=== PATIENT | male | born 1935 | race Caucasian/White ===

== ENCOUNTER 2016-11-23 02:57 | Emergency (ER) | payer OTHER ==
[~2016-11-23] VITALS: Ht 180.3 cm; Wt 100.0 kg
[~2016-11-23 02:57] MED LIST: ATOR-26 PO; BISA-16 PO; CHOL100027 PO; FURO-85 PO; GLC/500 PO; INSUINJ4 SC; LOSA50TA54 PO; METO1TAB31 PO; NITR0.4S UT; POTA-74 PO; PSYL55.43 PO; SENNTAB23 PO; WARF5TAB90 PO
[2016-11-23 03:05] VITALS: TEMP 36.3; Ht 180.3 cm; Wt 100.0 kg
[2016-11-23] MEDS ORDERED: INSDGIPEN SQ (03:33)
[2016-11-23] MEDS ORDERED: METF-384 PO (03:34)
[2016-11-23] MEDS ORDERED: MoRPHine SULFATE 4 MG/ML 1 ML CARP\\VIAL IV STA (03:38)
[2016-11-23] MEDS ORDERED: ONDANSETRON INJ 2 MG/ML 2 ML VIAL IV STA (03:38)
[2016-11-23 03:46] LABS: BASO % 0.3 %; BASO ABS # 0.04 K/uL (0-0.2); COMPLETE YES; EOS % 1.8 %; HEMATOCRIT 43.1 % (42-52); IG% 0.3 %; LYMPH % 13.7 %; LYMPH ABS # 2.02 K/uL (1.2-3.4); MEAN CELL VOLUME 94.3 fL (80-100); MEAN CORPUSCULAR HEMOGLOBIN 30.6 pg (25-34); MEAN CORPUSCULAR HGB CONC 32.5 g/dl (32-36); MEAN PLATELET VOLUME 10.1 fL (7.4-10.4); MONO % 12.5 %; NEUT % 71.4 %; PLATELET COUNT 229 K/uL (130-400); RED BLOOD COUNT 4.57 M/uL (4.7-6.1); WHITE BLOOD COUNT 14.73 K/uL (4.8-10.8)
[2016-11-23 03:54] VITALS: O2SAT 93
[2016-11-23 04:03] LABS: BUN/CREATININE RATIO 16.7 (10-20); CALCIUM 8.6 mg/dl (8.5-10.1); CREATININE 1.1 mg/dl (0.60-1.40); POTASSIUM 4.1 mmol/L (3.5-5.1); URIC ACID 5.9 mg/dl (2.6-7.2)
[2016-11-23] MEDS ORDERED: MoRPHine SULFATE 10 MG/ML CARP/VIAL IV STA (04:14)
[2016-11-23 04:19] LABS: C-REACTIVE PROTEIN 0.62 mg/dl (0-0.29)
[2016-11-23] MEDS ORDERED: CEFAZOLIN SOD 1000MG/55 ML D5W IV STA (04:30)
--- NOTE | 2016-11-23 04:36 | EMERGENCY ROOM VISIT NOTE ---
History Report prepared by Carmen: Kiesha Tran Under the Supervision of: Dr. Darell Gamino D.O. First contact with patient: 03:12 Chief Complaint: FOOT PAIN Stated Complaint: LEFT ANKLE PAIN History of Present Illness The patient is a 81 year old male who presents to the Emergency Room with complaints of constant left ankle pain starting yesterday. The pain is described as being extreme, and he rates it at a 10/10. The patient also noticed erythema on his foot last night. The patient states that he has not had pain like this in 3 years and was treated with pain medication. The patient has a history of gout in his toes, balls of feet, and ankles. No recent trauma. The patient reports that he has a pacemaker and had 4 stents put in years ago. Pt denies headache, change in vision, fevers, chest pain, shortness of breath, nausea, vomiting, and diarrhea. Source of History: patient Onset: yesterday Position: ankle (left) Symptom Intensity: extreme, rated at a 10/10 Timing: constant Associated Symptoms: No fevers, No headache, No chest pain, No SOB, No nausea, No vomiting, No melena, No diarrhea, No urinary symptoms Review of Systems See HPI for pertinent positives & negatives. A total of 10 systems reviewed and were otherwise negative. Past Medical & Surgical Medical Problems: (1) ACS (acute coronary syndrome) (2) CAD (coronary artery disease) (3) Chest pain (4) Chronic anticoagulation (5) DM type 2 (diabetes mellitus, type 2) (6) Dyslipidemia (7) Gout (8) History of cerebral hemorrhage (9) HTN (hypertension) (10) Pacemaker (11) Pancreatic cancer (12) Paroxysmal atrial fibrillation (13) Sinus node dysfunction (14) SSS (sick sinus syndrome) Surgical Problems: (1) H/O arthroscopic knee surgery (2) H/O colonoscopy (3) H/O esophagogastroduodenoscopy (4) H/O inguinal hernia repair (5) History of pancreatectomy (6) S/P CABG x 1 (7) S/P coronary artery stent placement (8) S/P splenectomy (9) S/P tonsillectomy and adenoidectomy Family History Diabetes mellitus FH: heart disease FH: hypertension Social History Smoking Status: Former Smoker Marital Status: Housing Status: lives alone Occupation Status: retired Current/Historical Medications Scheduled Atorvastatin (Lipitor), 80 MG PO DAILY Cephalexin Monohydrate (Keflex), 500 MG PO QID Cephalexin Monohydrate (Keflex), 500 MG PO QID Cholecalciferol (Vitamin D 1000 Unit), 1,000 INTER.UNIT PO DAILY Furosemide (Lasix), 20 MG PO DAILY Insulin Glargine (Lantus Solostar), 32 SC QAM Losartan Potassium (Cozaar), 50 MG PO DAILY Metformin Hcl (Glucophage), 1,000 MG PO BID Metoprolol Succinate (Toprol Xl), 25 MG PO DAILY Warfarin Sodium (Coumadin), 5 MG PO 4XWK Warfarin Sodium (Coumadin), 2.5 MG PO 3XWK Scheduled PRN Nitroglycerin (Nitrostat), 0.4 MG UT UD PRN for Chest Pain Oxycodone Immediate Rel Tab (Roxicodone Ir), 1-2 TAB PO Q4H PRN for Severe Pain Allergies Coded Allergies: Penicillins (Verified Allergy, Intermediate, HIVES, 11/23/16) Clopidogrel (Verified Allergy, Mild, 11/23/16) Physical Exam Vital Signs Date Time Temp Pulse Resp B/P (MAP) Pulse Ox O2 Delivery O2 Flow Rate FiO2 11/23/16 05:31 74 123/75 92 11/23/16 05:17 74 20 93 11/23/16 05:02 70 19 91 11/23/16 05:01 114/67 11/23/16 04:56 92 11/23/16 04:47 72 21 91 11/23/16 04:42 73 19 91 11/23/16 04:31 115/61 11/23/16 04:27 69 17 92 11/23/16 04:12 74 17 11/23/16 04:01 133/64 11/23/16 03:57 82 11/23/16 03:57 75 27 92 11/23/16 03:55 79 19 149/86 93 Room Air 11/23/16 03:55 149/86 11/23/16 03:54 93 Room Air 11/23/16 03:05 36.3 79 18 121/77 92 Room Air Physical Exam GENERAL: sitting up in bed, alert, well appearing, well nourished, no distress, non-toxic EYE EXAM: normal conjunctiva OROPHARYNX: no exudate, no erythema, lips, buccal mucosa, and tongue normal and mucous membranes are moist NECK: supple, no nuchal rigidity, no adenopathy, non-tender LUNGS: Clear to auscultation. Normal chest wall mechanics HEART: no murmurs, S1 normal and S2 normal ABDOMEN: abdomen soft, non-tender, normo-active bowel sounds, no masses, no rebound or guarding. SKIN: no rashes and no bruising UPPER EXTREMITIES: upper extremities are grossly normal. LOWER EXTREMITIES: No pitting edema. Full active and passive ROM at bilateral hips, knees, and right ankle. Tenderness with ROM of left ankle. Swelling over medial and lateral malleolus and dorsal surface with mild erythema. Able to flex and extend at the ankle but with pain. Inversion and eversion intact. Skin is intact. Able to axial load ankle with minimal pain.DP 2/4, gross sensation intact. NEURO EXAM: Normal sensorium, cranial nerves II-XII intact, normal speech, no weakness of arms. Medical Decision & Procedures ER Provider Diagnostic Interpretation: XRAY: A 3 view study was reviewed, no fracture was seen. 3 Views Left Ankle No obvious fracture. Calcification of vessels. Arthritis within the ankle joint. Laboratory Results 11/23/16 03:35 Red Blood Count 4.57, Mean Corpuscular Volume 94.3, Mean Corpuscular Hemoglobin 30.6, Mean Corpuscular Hemoglobin Concent 32.5, Mean Platelet Volume 10.1, Neutrophils (%) (Auto) 71.4, Lymphocytes (%) (Auto) 13.7, Monocytes (%) (Auto) 12.5, Eosinophils (%) (Auto) 1.8, Basophils (%) (Auto) 0.3, Neutrophils # (Auto ) 10.52, Lymphocytes # (Auto) 2.02, Monocytes # (Auto) 1.84, Eosinophils # (Auto ) 0.27, Basophils # (Auto) 0.04 11/23/16 03:35 Test 11/23/16 03:35 White Blood Count 14.73 K/uL (4.8-10.8) Red Blood Count 4.57 M/uL (4.7-6.1) Hemoglobin 14.0 g/dL (14.0-18.0) Hematocrit 43.1 % (42-52) Mean Corpuscular Volume 94.3 fL (80-100) Mean Corpuscular Hemoglobin 30.6 pg (25-34) Mean Corpuscular Hemoglobin Concent 32.5 g/dl (32-36) Platelet Count 229 K/uL (130-400) Mean Platelet Volume 10.1 fL (7.4-10.4) Neutrophils (%) (Auto) 71.4 % Lymphocytes (%) (Auto) 13.7 % Monocytes (%) (Auto) 12.5 % Eosinophils (%) (Auto) 1.8 % Basophils (%) (Auto) 0.3 % Neutrophils # (Auto) 10.52 K/uL (1.4-6.5) Lymphocytes # (Auto) 2.02 K/uL (1.2-3.4) Monocytes # (Auto) 1.84 K/uL (0.11-0.59) Eosinophils # (Auto) 0.27 K/uL (0-0.5) Basophils # (Auto) 0.04 K/uL (0-0.2) RDW Standard Deviation 48.6 fL (36.4-46.3) RDW Coefficient of Variation 14.1 % (11.5-14.5) Immature Granulocyte % (Auto) 0.3 % Immature Granulocyte # (Auto) 0.04 K/uL (0.00-0.02) Erythrocyte Sedimentation Rate 12 mm/hr (0-14) Prothrombin Time 20.6 SECONDS (9.0-12.0) Prothromb Time International Ratio 1.9 (0.9-1.1) Anion Gap 8.0 mmol/L (3-11) Est Creatinine Clear Calc Drug Dose 63.4 ml/min Estimated GFR () 72.6 Estimated GFR (Non- 62.6 BUN/Creatinine Ratio 16.7 (10-20) Uric Acid 5.9 mg/dl (2.6-7.2) Calcium Level 8.6 mg/dl (8.5-10.1) C-Reactive Protein 0.62 mg/dl (0-0.29) Laboratory results per my review. Medications Administered Medications (Trade) Dose Ordered Sig/Hammad Route Start Time Stop Time Status Last Admin Dose Admin Morphine Sulfate (MoRPHine SULFATE INJ) 4 mg NOW STAT IV 11/23/16 03:38 11/23/16 03:39 DC 11/23/16 03:42 4 MG Ondansetron HCl (Zofran Inj) 4 mg NOW STAT IV 11/23/16 03:38 11/23/16 03:39 DC 11/23/16 03:44 4 MG Morphine Sulfate (MoRPHine SULFATE INJ) 6 mg NOW STAT IV 11/23/16 04:14 11/23/16 04:15 DC 11/23/16 04:21 6 MG Cefazolin Sodium (Ancef 1000mg/55 ml D5W) 1,000 mg NOW STAT IV 11/23/16 04:30 11/23/16 04:31 DC 11/23/16 04:50 1,000 MG Cephalexin Monohydrate (Keflex Cap) 500 mg NOW ONCE PO 11/23/16 05:30 11/23/16 05:31 DC 11/23/16 05:27 500 MG Cephalexin Monohydrate (Keflex 500MG Home Pack) 1 homepack NOW ONCE PO 11/23/16 05:30 11/23/16 05:31 DC 11/23/16 05:28 1 HOMEPACK Oxycodone HCl (Roxicodone Immediate Rel 5MG Home Pack) 1 homepack UD ONCE PO 11/23/16 05:30 11/23/16 05:31 DC 11/23/16 05:28 1 HOMEPACK Prednisone (PredniSONE TAB) 10 mg STK-MED ONCE .ROUTE 11/23/16 06:09 11/23/16 06:10 DC 11/23/16 05:46 10 MG ED Course ED COURSE: Vital signs were reviewed and showed hypertension. The patients medical record was reviewed The above diagnostic studies were performed and reviewed. ED treatments and interventions as stated above. 0320: The patient was evaluated in room B3. A complete history and physical examination was performed. 0338: Ordered Ondansetron HCl 4 mg IV, Morphine Sulfate 4 mg IV. 0413: The patient is still having pain. 0414: Ordered Morphine Sulfate 6 mg IV. 0430: Ordered Cefazolin Sodium 1,000 mg IV. 0455: I reviewed the patient's case with Dr. Harrington. 0530: Ordered Oxycodone HCl 1 homepack PO, Cephalexin Monohydrate 1 homepack PO , Cephalexin Monohydrate 500 mg PO. 0545: Ordered Prednisone 10 mg PO. 0550: Upon reevaluation, the patient is feeling better. I discussed the findings and the treatment plan with the patient. He verbalizes agreement and understanding. He was discharged home. Medical Decision Differential diagnosis includes etiologies such as cellulitis, abscess, MRSA infection, DVT, necrotizing fasciitis, dermatitis, drug eruption, as well as others were entertained. Patient is an 81-year-old male who presents the ER for severe left ankle pain which started last night. He notes he has had this once before in the past and notes that it resolved with pain medications. He has erythema and swelling around the ankle. Able to load the ankle with minimal pain. Erythema improved throughout his stay. He was given 2 doses of morphine. White count was elevated at 15,000. Uric acid was negative. Sed and CRP are unremarkable. Patient was afebrile. X-rays of the ankle show no acute fracture. INR was just slightly subtherapeutic. Discussed the case with orthopedics as in my differential was septic joint versus cellulitis vs gout. Unclear at this time but doubt septic joint as patient is extremely hypersensitive to touch and I favor presentation is most consistent with gout. Able to range ankle with minimal tenderness not supporting septic joint. Following a prolonged discussion with Dr. Juany Harrington and review of the images he believes that the joint is unlikely infected and the patient can follow-up on Tuesday. He agreed with antibiotics and Motrin. Stressed the importance of having the patient follow-up with his PCP on Tuesday as he takes Coumadin and both Keflex and Motrin will increase his INR. He was agreeable with this. He was discharged with OxyIR. Patient was agreeable. Erythema was outlined. Stressed importance of reasons to return to the ER. While in the ER he was given a small amount of Ancef prior to me seeing this as the patient has an allergy to this. He is uncertain of the allergy and notes that he has not had penicillin since he was a child. Patient remained stable following small amount of intravenous Ancef. He was given a small dose of steroids and discharged to follow-up with with orthopedics and PCP. Discussed with Pt concerning signs and symptoms to watch out for. Pt was instructed to follow up with their PCP and discussed with the patient their option to return to the ED at anytime for persistent or worsening symptoms. The appropriate anticipatory guidance and out-patient management, including indications for return to the emergency department, were explained at length to the patient and understood. Blood pressure screening: Patient was found to have an elevated blood pressure and was referred to their primary doctor for recheck and further treatment. Medication Reconciliation: I attest that I have personally reviewed the patient' s current medication list. [place] Drug Monitoring Program Search Results: patient reviewed within database, no issues identified Consults Time Called: [phone] Consulting Physician: Dr. Harrington- covering for [facility] Returned Call: 045 I reviewed the patient's case with Dr. Harrington. Impression Primary Impression: Left ankle pain Additional Impression: gout vs cellulitis Scribe Attestation The scribe's documentation has been prepared under my direction and personally reviewed by me in its entirety. I confirm that the note above accurately reflects all work, treatment, procedures, and medical decision making performed by me. Departure Information Dispostion Home / Self-Care Prescriptions Cephalexin Monohydrate (Keflex) 500 Mg Cap 500 MG PO QID, #40 CAP Prov: Darell Gamino, DO 11/23/16 Cephalexin Monohydrate (Keflex) 500 Mg Cap 500 MG PO QID, #40 CAP Prov: Darell Gamino, DO 11/23/16 Oxycodone Immediate Rel Tab (ROXICODONE IR) 5 Mg Tab 1-2 TAB PO Q4H Y for Severe Pain, #24 TAB Prov: Darell Gamino, DO 11/23/16 Referrals Melo Carlos M.D. (PCP) Forms HOME CARE DOCUMENTATION FORM, IMPORTANT VISIT INFORMATION Patient Instructions Cellulitis - [facility], G[facility] [place], [facility] Additional Instructions Please follow up with your primary care doctor with in the next 24 hours. Any worsening of your symptoms, please return to the ED immediately. This includes fevers greater than 100.4, worsening pain, spreading of the redness, or any other concerning signs or symptoms from your standpoint. Please call your orthopedic doctor on Tuesday to set up appointment. Please tell them that you were seen in the ER and need a follow-up. Please follow up on Tuesday with your primary care doctor to have your INR followed as you are taking an antibiotic which will alter/increase your INR/Coumadin level. Please take Motrin 200 mg 3 times a day as needed for your pain. This will also alter your Coumadin/INR level. You were given medications during this visit that will inhibit your ability to drive, operate machinery and work. Please do NOT drive, operate machinery or work for the next 12hrs. You were also given a prescription for a narcotic/Oxy IR. While taking this medication you should also not drive, operate machinery and or work. Problem Qualifiers Primary Impression: Left ankle pain Chronicity: acute Qualified Codes: M25.572 - Pain in left ankle and joints of left foot
[2016-11-23 04:51] LABS: INR 1.9 (0.9-1.1); PROTHROMBIN TIME (PATIENT) 20.6 SECONDS (9.0-12.0)
[2016-11-23] MEDS ORDERED: OXYC1TAB3 PO ×2 (05:25→05:26)
[2016-11-23] MEDS ORDERED: CEPH500C PO ×2 (05:26→05:28)
[2016-11-23] MEDS ORDERED: CEPHALEXIN MONOHYDRATE 250 MG CAP PO ONE (05:30)
[2016-11-23] MEDS ORDERED: CEPHALEXIN 500MG HOME PACK 1 EA BTL PO ONE (05:30)
[2016-11-23] MEDS ORDERED: OXYCODONE IR HOME PACK PO ONE (05:30)
[2016-11-23 05:31] VITALS: BP 123/75; PULSE 74; O2SAT 92
--- NOTE | 2016-11-23 10:48 | DIAGNOSTIC IMAGING REPORT ---
LEFT ANKLE 3 VIEWS CLINICAL HISTORY: Left ankle pain. No reported history of trauma. FINDINGS: 3 views of the left ankle are compared to study dated 02/15/2011. The skeletal structures are osteopenic. No fracture is seen. The ankle mortise is intact. Degenerative spurring is noted from the anterior tibial plafond and along the dorsal aspect of the tarsal bones. An os trigonum is incidentally noted. Enthesophytes are also seen arising from the medial and lateral malleoli. There is no large ankle joint effusion. Soft tissue edema is present in the left lower extremity and around the ankle joint. There is advanced atherosclerotic calcification of the regional arteries. There is a small dorsal calcaneal enthesophyte. IMPRESSION: 1. Diffuse soft tissue edema with no acute bony abnormality seen in the left ankle. 2. Osteopenia and degenerative change as above. Electronically signed by: Yousif Espinoza M.D. 11/23/2016 10:47 AM Dictated Date/Time: 11/23/2016 10:45 AM
[2016-12-01] MEDS ORDERED: NRV5 PO (11:18)
[2016-12-01] MEDS ORDERED: BRL90 PO (11:18)
[2016-12-01] MEDS ORDERED: TPRSR25 PO ×2 (11:18)
[2016-12-01] MEDS ORDERED: ASPEC81 PO (11:18)
[2016-12-01] MEDS ORDERED: LPT/40 PO (11:31)
[2016-12-31] MEDS ORDERED: IMDSR60 PO (11:52)
[2016-12-31] MEDS ORDERED: TPRSR50 PO (11:52)
[2016-12-31] MEDS ORDERED: NRV5 PO (11:52)
[2016-12-31] MEDS ORDERED: PRT40 PO (11:52)
[2017-01-12] MEDS ORDERED: TICA1TAB PO (15:04)
[2017-01-12] MEDS ORDERED: PSYL58.636 (15:04)
[2017-01-12] MEDS ORDERED: METO25TA3 PO (15:04)
[2017-01-12] MEDS ORDERED: CLIN300C2 PO (15:04)
== END 2016-11-23 05:49 | disposition home or self-care (01) ==
LOC: C.EDB 02:58
DX: M25.572 Pain in left ankle and joints of left foot (principal); E11.9 Type 2 diabetes mellitus without complications; E78.5 Hyperlipidemia, unspecified; I10 Essential (primary) hypertension; I25.10 Atherosclerotic heart disease of native coronary artery without angina pectoris; Z79.01 Long term (current) use of anticoagulants; Z79.4 Long term (current) use of insulin; Z79.899 Other long term (current) drug therapy; Z85.07 Personal history of malignant neoplasm of pancreas; Z87.828 Personal history of other (healed) physical injury and trauma; Z95.0 Presence of cardiac pacemaker; Z98.61 Coronary angioplasty status; Z82.49 Family history of ischemic heart disease and other diseases of the circulatory system; Z83.3 Family history of diabetes mellitus

== ENCOUNTER 2016-11-25 16:42 | Inpatient (IN) | payer OTHER ==
[~2016-11-25] VITALS: Ht 180.3 cm; Wt 108.9 kg
[~2016-11-25 16:42] MED LIST changes: -BISA-16 PO; +CEPH500C PO; -GLC/500 PO; +INSDGIPEN SQ; -INSUINJ4 SC; +METF-384 PO; +OXYC1TAB3 PO; -POTA-74 PO; -PSYL55.43 PO; -SENNTAB23 PO
[2016-11-25] MEDS ORDERED: ASPIRIN 81 MG CHEW PO STA (16:59)
--- NOTE | 2016-11-25 17:27 | DIAGNOSTIC IMAGING REPORT ---
CHEST ONE VIEW PORTABLE CLINICAL HISTORY: Atypical chest pain COMPARISON STUDY: 04/10/2016 FINDINGS: There are postsurgical changes of a midline sternotomy. There is a left subclavian dual-chamber central venous pacemaker present. The heart is enlarged. There is no failure. There is no focal pulmonary consolidation. No pleural effusions are visualized.[ IMPRESSION: Cardiomegaly. No active disease in the chest. Electronically signed by: Bhavin Norman M.D. 11/25/2016 5:26 PM Dictated Date/Time: 11/25/2016 5:25 PM
--- NOTE | 2016-11-25 17:59 | EMERGENCY ROOM VISIT NOTE ---
History Report prepared by Carmen: Edna Rayo Under the Supervision of: Dr. Chaim Wells D.O. First contact with patient: 16:50 Chief Complaint: CARDIAC ASSESSMENT Stated Complaint: CHEST PAIN- CARDIAC HX History of Present Illness The patient is an 81 year old male who presents to the Emergency Room for a cardiac assessment. The patient states that he had severe chest pain this afternoon that lasted about an hour and a half. He states that he felt fine yesterday and didn't do anything to exert himself. The patient states that the pain radiated to his back. He notes that he took 3 Nitroglycerin pills each 20 minutes apart. He also states that he took a baby Aspirin. He notes that none of the medicine helped his chest pain, but that currently he does not have any. The patient denies the pain radiating to his neck or jaw and shortness of breath. The patient notes that he has had 3 or 4 stents placed in the past and a bypass surgery. He reports that he last saw his animal behaviorist 3 weeks ago. He reports that he doesn't remember his last stress test or heart catheterization. The patient reports being in the ED two days ago for gout or an infection in his ankle that has since resolved. Source of History: patient Onset: this afternoon Position: chest Symptom Intensity: severe Quality: other (radiating) Timing: other (episode) Associated Symptoms: + back pain, No neck pain, No SOB Note: The patient denies the pain radiating to his jaw. Review of Systems See HPI for pertinent positives & negatives. A total of 10 systems reviewed and were otherwise negative. Past Medical & Surgical Medical Problems: (1) ACS (acute coronary syndrome) (2) CAD (coronary artery disease) (3) Chest pain (4) Chronic anticoagulation (5) DM type 2 (diabetes mellitus, type 2) (6) Dyslipidemia (7) Gout (8) History of cerebral hemorrhage (9) HTN (hypertension) (10) Pacemaker (11) Pancreatic cancer (12) Paroxysmal atrial fibrillation (13) Sinus node dysfunction (14) SSS (sick sinus syndrome) Surgical Problems: (1) H/O arthroscopic knee surgery (2) H/O colonoscopy (3) H/O esophagogastroduodenoscopy (4) H/O inguinal hernia repair (5) History of pancreatectomy (6) S/P CABG x 1 (7) S/P coronary artery stent placement (8) S/P splenectomy (9) S/P tonsillectomy and adenoidectomy Family History Diabetes mellitus FH: heart disease FH: hypertension Social History Smoking Status: Former Smoker Drug Use: none Marital Status: Housing Status: lives alone Occupation Status: retired Current/Historical Medications Scheduled Atorvastatin (Lipitor), 80 MG PO DAILY Cephalexin Monohydrate (Keflex), 500 MG PO QID Cholecalciferol (Vitamin D 1000 Unit), 1,000 INTER.UNIT PO DAILY Furosemide (Lasix), 20 MG PO DAILY Insulin Glargine (Lantus Solostar), 32 SC QAM Losartan Potassium (Cozaar), 50 MG PO DAILY Metformin Hcl (Glucophage), 1,000 MG PO BID Metoprolol Succinate (Toprol Xl), 25 MG PO DAILY Warfarin Sodium (Coumadin), 5 MG PO 4XWK Warfarin Sodium (Coumadin), 2.5 MG PO 3XWK Scheduled PRN Nitroglycerin (Nitrostat), 0.4 MG UT UD PRN for Chest Pain Oxycodone Immediate Rel Tab (Roxicodone Ir), 1-2 TAB PO Q4H PRN for Severe Pain Allergies Coded Allergies: Penicillins (Verified Allergy, Intermediate, HIVES, 11/25/16) Clopidogrel (Verified Allergy, Mild, 11/25/16) Physical Exam Vital Signs Date Time Temp Pulse Resp B/P (MAP) Pulse Ox O2 Delivery O2 Flow Rate FiO2 11/25/16 19:07 76 18 138/79 98 Room Air 11/25/16 19:01 142/83 11/25/16 18:01 174/103 11/25/16 17:42 72 17 11/25/16 17:15 169/97 11/25/16 17:08 97 Room Air 11/25/16 17:08 97 Room Air 11/25/16 17:05 97 Room Air 11/25/16 17:03 78 11/25/16 16:59 170/91 11/25/16 16:46 36.4 91 20 164/98 95 Room Air Physical Exam GENERAL: Patient is awake, alert, and in no acute distress. Patient is resting comfortably and showing no signs of anxiety EYES: The conjunctivae are clear. The pupils are round and reactive. EARS, NOSE, MOUTH AND THROAT: The nose is without any evidence of any deformity. Mucous membranes are moist tongue is midline NECK: The neck is nontender and supple. RESPIRATORY: Normal respiratory effort is noted there is no evidence of wheezing rhonchi or rales CARDIOVASCULAR: Irregular rhythm noted to auscultation, no definite murmur appreciated. GASTROINTESTINAL: The abdomen is soft. Bowel sounds are present in all quadrants. Abdomen is nontender MUSCULOSKELETAL/EXTREMITIES: There is no evidence of gross deformity full range of motion is noted in the hips and shoulders SKIN: There is no obvious evidence of any rash. There are no petechiae, pallor or cyanosis noted. Pedal edema bilaterally. NEUROLOGIC: Patient is awake alert and oriented x3. Medical Decision & Procedures ER Provider Diagnostic Interpretation: Radiology results as stated below per my review and radiologist interpretation: CHEST ONE VIEW PORTABLE CLINICAL HISTORY: Atypical chest pain COMPARISON STUDY: 04/10/2016 FINDINGS: There are postsurgical changes of a midline sternotomy. There is a left subclavian dual-chamber central venous pacemaker present. The heart is enlarged. There is no failure. There is no focal pulmonary consolidation. No pleural effusions are visualized.[ IMPRESSION: Cardiomegaly. No active disease in the chest. Electronically signed by: Bhavin Norman M.D. 11/25/2016 5:26 PM Dictated Date/Time: 11/25/2016 5:25 PM Laboratory Results 11/25/16 17:00 Red Blood Count 3.90, Mean Corpuscular Volume 95.1, Mean Corpuscular Hemoglobin 32.8, Mean Corpuscular Hemoglobin Concent 34.5, Mean Platelet Volume 11.0, Neutrophils (%) (Auto) 70.9, Lymphocytes (%) (Auto) 15.2, Monocytes (%) (Auto) 13.4, Eosinophils (%) (Auto) 0.0, Basophils (%) (Auto) 0.1, Neutrophils # (Auto ) 11.68, Lymphocytes # (Auto) 2.51, Monocytes # (Auto) 2.20, Eosinophils # (Auto ) 0.00, Basophils # (Auto) 0.01 11/25/16 17:00 Test 11/25/16 17:00 White Blood Count 16.46 K/uL (4.8-10.8) Red Blood Count 3.90 M/uL (4.7-6.1) Hemoglobin 12.8 g/dL (14.0-18.0) Hematocrit 37.1 % (42-52) Mean Corpuscular Volume 95.1 fL (80-100) Mean Corpuscular Hemoglobin 32.8 pg (25-34) Mean Corpuscular Hemoglobin Concent 34.5 g/dl (32-36) Platelet Count 220 K/uL (130-400) Mean Platelet Volume 11.0 fL (7.4-10.4) Neutrophils (%) (Auto) 70.9 % Lymphocytes (%) (Auto) 15.2 % Monocytes (%) (Auto) 13.4 % Eosinophils (%) (Auto) 0.0 % Basophils (%) (Auto) 0.1 % Neutrophils # (Auto) 11.68 K/uL (1.4-6.5) Lymphocytes # (Auto) 2.51 K/uL (1.2-3.4) Monocytes # (Auto) 2.20 K/uL (0.11-0.59) Eosinophils # (Auto) 0.00 K/uL (0-0.5) Basophils # (Auto) 0.01 K/uL (0-0.2) RDW Standard Deviation 49.4 fL (36.4-46.3) RDW Coefficient of Variation 14.3 % (11.5-14.5) Immature Granulocyte % (Auto) 0.4 % Immature Granulocyte # (Auto) 0.06 K/uL (0.00-0.02) Prothrombin Time 13.8 SECONDS (9.0-12.0) Prothromb Time International Ratio 1.3 (0.9-1.1) Activated Partial Thromboplast Time 33.1 SECONDS (21.0-31.0) Partial Thromboplastin Ratio 1.3 Anion Gap 9.0 mmol/L (3-11) Est Creatinine Clear Calc Drug Dose 56.3 ml/min Estimated GFR () 59.3 Estimated GFR (Non- 51.2 BUN/Creatinine Ratio 21.9 (10-20) Calcium Level 8.9 mg/dl (8.5-10.1) Total Bilirubin 0.6 mg/dl (0.2-1) Direct Bilirubin 0.2 mg/dl (0-0.2) Aspartate Amino Transf (AST/SGOT) 22 U/L (15-37) Alanine Aminotransferase (ALT/SGPT) 27 U/L (12-78) Alkaline Phosphatase 68 U/L (45-117) Total Creatine Kinase 190 U/L (39-308) Creatine Kinase MB 3.7 ng/ml (0.5-3.6) Creatine Kinase MB Ratio 1.9 (0-3.0) Troponin I 0.056 ng/ml (0-0.045) Total Protein 7.5 gm/dl (6.4-8.2) Albumin 3.3 gm/dl (3.4-5.0) Lipase 66 U/L (73-393) Laboratory results per my review. Medications Administered Medications (Trade) Dose Ordered Sig/Hammad Route Start Time Stop Time Status Last Admin Dose Admin Aspirin (Aspirin Chew) 324 mg NOW STAT PO 11/25/16 16:59 11/25/16 17:00 DC 11/25/16 17:14 324 MG ECG Indication: chest pain Rate (beats per minute): 79 Rhythm: atrial fibrillation Findings: LBBB, PVC (frequent) Comparison ECG Date: 04/10/2016 Change: no significant change ED Course 165: The patient was evaluated in room C8. A complete history and physical examination were performed. 1658: Ordered Aspirin Chew 324 mg PO. 1936: I discussed the patient's case with Dr. Michael. The patient will be evaluated for further management. Medical Decision Medication Reconciliation: I attest that I have personally reviewed the patient' s current medications list. Blood pressure screening: Patient was found to have normal blood pressure on screening and does not require follow-up. Differential diagnosis: Etiologies such as cardiac ischemia, aortic dissection, pulmonary embolism, pneumonia, pneumothorax, musculoskeletal, infections, pericarditis, myocarditis , esophageal rupture, gastrointestinal, as well as others were entertained. The patient is an 81-year-old male who has a history of coronary artery disease who presented to the emergency department for an evaluation of chest pain. The patient states that he has taken nitroglycerin for this specific episode of pain but he has not had to use nitroglycerin in quite some time. The patient states that the pain did not relieve immediately but by the time he got to the emergency Department he was pain-free. He has been seen in our emergency department for similar symptoms in the past at that time he had reproducible chest pain and his cardiac biomarkers were negative. The patient's EKG does not show any acute change from previous. The patient's troponin was mildly elevated at this time. The patient was treated with aspirin in the emergency department. He was reevaluated multiple times. He continued to be pain-free. Given the patient's comorbidities I discussed his case with the on-call [facility] [address] hospitalist. They've agreed to evaluate the patient in the emergency department for further management and disposition. I discussed the limitations of the emergency department chest pain for patient with the patient. Consults Time Called: 1912 Consulting Physician: Dr. Michael Returned Call: 1936 I discussed the patient's case with Dr. Michael. The patient will be evaluated for further management. Impression Primary Impression: Chest pain Additional Impression: Elevated troponin level Scribe Attestation The scribe's documentation has been prepared under my direction and personally reviewed by me in its entirety. I confirm that the note above accurately reflects all work, treatment, procedures, and medical decision making performed by me. Departure Information Dispostion Being Evaluated By Hospitalist Referrals Melo Carlos M.D. (PCP) Patient Instructions My [facility] Problem Qualifiers Primary Impression: Chest pain Chest pain type: unspecified Qualified Codes: R07.9 - Chest pain, unspecified
[2016-11-25 18:17] LABS: BASO % 0.1 %; BASO ABS # 0.01 K/uL (0-0.2); COMPLETE YES; HEMATOCRIT 37.1 % (42-52); IG% 0.4 %; LYMPH % 15.2 %; LYMPH ABS # 2.51 K/uL (1.2-3.4); MEAN CELL VOLUME 95.1 fL (80-100); MEAN CORPUSCULAR HEMOGLOBIN 32.8 pg (25-34); MEAN CORPUSCULAR HGB CONC 34.5 g/dl (32-36); MONO % 13.4 %; NEUT % 70.9 %; PLATELET COUNT 220 K/uL (130-400); WHITE BLOOD COUNT 16.46 K/uL (4.8-10.8)
[2016-11-25 18:21] LABS: INR 1.3 (0.9-1.1); PARTIAL THROMBOPLASTIN RATIO 1.3; PROTHROMBIN TIME (PATIENT) 13.8 SECONDS (9.0-12.0)
[2016-11-25 18:31] LABS: BUN/CREATININE RATIO 21.9 (10-20); CALCIUM 8.9 mg/dl (8.5-10.1); CREATININE 1.3 mg/dl (0.60-1.40); POTASSIUM 4.5 mmol/L (3.5-5.1)
[2016-11-25 18:50] LABS: CKMB/CK RATIO 1.9 (0-3.0)
[2016-11-25] MEDS ORDERED: DEXTROSE 50% 50 ML SYR IV PRN (20:45)
[2016-11-25] MEDS ORDERED: GLUCOSE 10 TABS/TUBE PO PRN (20:45)
[2016-11-25] MEDS ORDERED: POLYETHYLENE (MIRALAX) 17 GM PACK PO PRN (20:45)
[2016-11-25] MEDS ORDERED: ALUMINUM/MAGNESIUM/SIMETH (MAALOX MAX) 30 ML UDC PO PRN (20:45)
[2016-11-25] MEDS ORDERED: GLUCAGON FOR INJ 1 MG VIAL SQ PRN (20:45)
[2016-11-25] MEDS ORDERED: ONDANSETRON INJ 2 MG/ML 2 ML VIAL IV PRN (20:45)
[2016-11-25] MEDS ORDERED: MAGNESIUM HYDROXIDE SUSP 30 ML UDC PO PRN (20:45)
[2016-11-25] MEDS ORDERED: GLUCOSE 40% GEL 15 GM TUBE PO PRN (20:45)
[2016-11-25] MEDS ORDERED: NITROGLYCERIN 0.4 MG SL PER TAB CHARGE SL PRN (20:45)
[2016-11-25] MEDS ORDERED: IV FLUIDS COMPLETED PRN (22:15)
[2016-11-25 22:28] VITALS: BMI 33.5
[2016-11-25 22:30] VITALS: BP 168/89; PULSE 80; TEMP 36.5; O2SAT 96; Ht 180.3 cm; Wt 108.9 kg
[2016-11-25] MEDS ORDERED: WARFARIN SOD 5 MG TAB PO ONE (22:30)
[2016-11-25] MEDS ORDERED: SODIUM CHLORIDE 0.9% 1000ML 1,000 ML IV SCH (22:30)
[2016-11-25] MEDS: CEPHALEXIN MONOHYDRATE 500 MG CAP PO SCH (23:20)
[2016-11-25] MEDS: INSULIN GLARGINE SOLOSTAR 100 UNITS/ML 3 ML PEN SC SCH (23:27)
[2016-11-25] MEDS: INSULIN ASPART 100 UNITS/ML 3 ML PEN SC SCH (23:27)
[2016-11-25 23:50] VITALS: BP 156/88; PULSE 72; TEMP 36.4; O2SAT 94
--- NOTE | 2016-11-26 00:14 | History and Physical ---
History & Physical Date & Time of Service: Nov 25, 2016 at 23:56 Chief Complaint: Chest Pain- Cardiac Hx Primary Care Physician: Melo Carlos M.D. History of Present Illness Source: patient, family, clinic records, hospital records This is an 81 year old male with an extensive cardiac history including CAD s/p stenting in 2002, s/p CABG in 2006, paroxysmal atrial fibrillation on long-term Coumadin, insulin dependent DM2, HTN, HLD presented with chest pain -- describes the pain as a substernal, crushing pain that began a few hours prior to arrival - he took nitro tab which helped. The pain recurred and he took another two nitro tabs which helped with the pain, but he presented to the ER because of concern about the chest pain. States the pain has not recurred since presenting here. No shortness of breath/palpitations; no nausea/vomiting/ diarrhea, no fevers/chills. Past Medical/Surgical History Medical Problems: (1) CAD (coronary artery disease) Status: Chronic (2) Chronic anticoagulation Status: Chronic (3) DM type 2 (diabetes mellitus, type 2) Status: Chronic (4) Dyslipidemia Status: Chronic (5) Gout Status: Chronic (6) History of cerebral hemorrhage Status: Chronic (7) HTN (hypertension) Status: Chronic (8) Pacemaker Status: Chronic (9) Pancreatic cancer Status: Chronic (10) Paroxysmal atrial fibrillation Status: Chronic (11) Sinus node dysfunction Status: Chronic Surgical Problems: (1) H/O arthroscopic knee surgery Status: Chronic (2) H/O colonoscopy Status: Chronic (3) H/O esophagogastroduodenoscopy Status: Chronic (4) H/O inguinal hernia repair Status: Chronic (5) History of pancreatectomy Permanent Comment: 07/15/2010 [place] [facility] [facility] [place]: Chronic (6) S/P CABG x 1 Status: Chronic (7) S/P coronary artery stent placement Permanent Comment: 03/29/03 cardiac cath: RCA - stent of 90% lesion, L circ obtuse kenneth - stent of 80% lesion Status: Chronic (8) S/P splenectomy Status: Chronic (9) S/P tonsillectomy and adenoidectomy Status: Chronic Family History Diabetes mellitus FH: heart disease FH: hypertension Social History Smoking Status: Former Smoker Drug Use: none Marital Status: Occupational Status: retired Immunizations History of Influenza Vaccine: Yes History of Tetanus Vaccine?: Yes History of Pneumococcal: Yes Pneumococcal Date: Feb 26, 2003 History of Hepatitis B Vaccine: Yes Multi-Drug Resistant Organisms History of MDRO: No Allergies Coded Allergies: Penicillins (Verified Allergy, Intermediate, HIVES, 11/25/16) Clopidogrel (Verified Allergy, Mild, 11/25/16) Home Medications Scheduled Atorvastatin (Lipitor), 80 MG PO DAILY Cephalexin Monohydrate (Keflex), 500 MG PO QID Cholecalciferol (Vitamin D 1000 Unit), 1,000 INTER.UNIT PO DAILY Furosemide (Lasix), 20 MG PO DAILY Insulin Glargine (Lantus Solostar), 32 SC QAM Losartan Potassium (Cozaar), 50 MG PO DAILY Metformin Hcl (Glucophage), 1,000 MG PO BID Metoprolol Succinate (Toprol Xl), 25 MG PO DAILY Warfarin Sodium (Coumadin), 5 MG PO 4XWK Warfarin Sodium (Coumadin), 2.5 MG PO 3XWK Scheduled PRN Nitroglycerin (Nitrostat), 0.4 MG UT UD PRN for Chest Pain Oxycodone Immediate Rel Tab (Roxicodone Ir), 1-2 TAB PO Q4H PRN for Severe Pain Review of Systems Constitutional: No fever, No chills, No weakness Respiratory: No cough, No sputum, No wheezing, No shortness of breath, No dyspnea on exertion, No dyspnea at rest, No hemoptysis Cardiovascular: + chest pain, No orthopnea, No edema, No palpitations Abdomen: No pain, No nausea, No vomiting, No diarrhea, No constipation, No GI bleeding Musculoskeletal: No joint pain, No muscle pain Genitourinary - Male: No hematuria, No dysuria, No urinary frequency, No urinary urgency Neurologic: No memory loss Psychiatric: No depression symptoms Hematologic / Lymphatic: No abnormal bleeding/bruising Integumentary: No rash Allergic / Immunologic: No environmental allergies Physical Exam Vital Signs Date Time Temp Pulse Resp B/P (MAP) Pulse Ox O2 Delivery O2 Flow Rate FiO2 11/25/16 22:30 36.5 80 18 168/89 96 Room Air 11/25/16 21:27 77 18 165/83 96 11/25/16 21:04 74 11/25/16 20:48 77 20 136/77 96 Room Air 11/25/16 19:07 76 18 138/79 98 Room Air 11/25/16 19:01 142/83 11/25/16 18:01 174/103 11/25/16 17:42 72 17 11/25/16 17:15 169/97 11/25/16 17:08 97 Room Air 11/25/16 17:08 97 Room Air 11/25/16 17:05 97 Room Air 11/25/16 17:03 78 11/25/16 16:59 170/91 11/25/16 16:46 36.4 91 20 164/98 95 Room Air General Appearance: no apparent distress Head: normocephalic, atraumatic Eyes: normal inspection ENT: hearing grossly normal Neck: supple Respiratory/Chest: chest non-tender, lungs clear, normal breath sounds, no respiratory distress, no accessory muscle use Cardiovascular: no edema, no murmur, + irregularly irregular Abdomen/GI: normal bowel sounds, non tender, soft Extremities/Musculoskelatal: + pertinent finding Neurologic/Psych: no motor/sensory deficits, alert, normal mood/affect Skin: normal color Lymphatic: no adenopathy Diagnostics Laboratory Results Results Past 24 Hours Test 11/25/16 17:00 11/25/16 23:18 Range/Units White Blood Count 16.46 4.8-10.8 K/uL Red Blood Count 3.90 4.7-6.1 M/uL Hemoglobin 12.8 14.0-18.0 g/dL Hematocrit 37.1 42-52 % Mean Corpuscular Volume 95.1 80-100 fL Mean Corpuscular Hemoglobin 32.8 25-34 pg Mean Corpuscular Hemoglobin Concent 34.5 32-36 g/dl Platelet Count 220 130-400 K/uL Mean Platelet Volume 11.0 7.4-10.4 fL Neutrophils (%) (Auto) 70.9 % Lymphocytes (%) (Auto) 15.2 % Monocytes (%) (Auto) 13.4 % Eosinophils (%) (Auto) 0.0 % Basophils (%) (Auto) 0.1 % Neutrophils # (Auto) 11.68 1.4-6.5 K/uL Lymphocytes # (Auto) 2.51 1.2-3.4 K/uL Monocytes # (Auto) 2.20 0.11-0.59 K/uL Eosinophils # (Auto) 0.00 0-0.5 K/uL Basophils # (Auto) 0.01 0-0.2 K/uL RDW Standard Deviation 49.4 36.4-46.3 fL RDW Coefficient of Variation 14.3 11.5-14.5 % Immature Granulocyte % (Auto) 0.4 % Immature Granulocyte # (Auto) 0.06 0.00-0.02 K/uL Prothrombin Time 13.8 9.0-12.0 SECONDS Prothromb Time International Ratio 1.3 0.9-1.1 Activated Partial Thromboplast Time 33.1 21.0-31.0 SECONDS Partial Thromboplastin Ratio 1.3 Sodium Level 135 136-145 mmol/L Potassium Level 4.5 3.5-5.1 mmol/L Chloride Level 105 98-107 mmol/L Carbon Dioxide Level 21 21-32 mmol/L Anion Gap 9.0 3-11 mmol/L Blood Urea Nitrogen 28 7-18 mg/dl Creatinine 1.30 0.60-1.40 mg/dl Est Creatinine Clear Calc Drug Dose 56.3 ml/min Estimated GFR () 59.3 Estimated GFR (Non- 51.2 BUN/Creatinine Ratio 21.9 10-20 Random Glucose 296 70-99 mg/dl Calcium Level 8.9 8.5-10.1 mg/dl Total Bilirubin 0.6 0.2-1 mg/dl Direct Bilirubin 0.2 0-0.2 mg/dl Aspartate Amino Transf (AST/SGOT) 22 15-37 U/L Alanine Aminotransferase (ALT/SGPT) 27 12-78 U/L Alkaline Phosphatase 68 45-117 U/L Total Creatine Kinase 190 39-308 U/L Creatine Kinase MB 3.7 0.5-3.6 ng/ml Creatine Kinase MB Ratio 1.9 0-3.0 Troponin I 0.056 0-0.045 ng/ml Total Protein 7.5 6.4-8.2 gm/dl Albumin 3.3 3.4-5.0 gm/dl Lipase 66 73-393 U/L Bedside Glucose 298 70-99 mg/dl Diagnostic Radiology CHEST ONE VIEW PORTABLE CLINICAL HISTORY: Atypical chest pain COMPARISON STUDY: 04/10/2016 FINDINGS: There are postsurgical changes of a midline sternotomy. There is a left subclavian dual-chamber central venous pacemaker present. The heart is enlarged. There is no failure. There is no focal pulmonary consolidation. No pleural effusions are visualized.[ IMPRESSION: Cardiomegaly. No active disease in the chest. EKG Atrial fibrillation with intermittent aberrant ventricular conduction Left axis deviation Left bundle branch block Abnormal ECG No change from prior EKG Impression Assessment and Plan This is an 81 year old male with an extensive cardiac history including CAD s/p stenting in 2002, s/p CABG in 2006, paroxysmal atrial fibrillation on long-term Coumadin, insulin dependent DM2, HTN, HLD presented with chest pain Chest Pain r/o Acute Coronary Syndrome in the setting of CAD hx. of stents, hx. of CABG given full dose aspirin in the ER mild elevation of troponin level; 0.05 trend enzymes, monitor the patient in tele check an echo; repeat EKG in AM continue b-mtichel, high intensity statin cardiology consultation Paroxysmal A. Fib INR < 2, not at goal currently in A. Fib, rate controlled continue b-mitchel Coumadin 5mg today, continue daily until therapeutic Recent Cellulitis presented to the ER recently; was given Keflex continue Keflex for now, elevation in WBC, likely from cellulitis monitor WBC daily, and monitor L foot cellulitis Insulin Dependent DM2 check Ha1c Lantus 12 units BID sliding scale monitor BSGs and adjust accordingly HTN blood pressure stable continue Cozaar and b-mitchel HLD continue statin DVT ppx Lovenox; until INR is therapeutic FULL CODE Advanced Directives Existing Living Will: No Existing Power of Bobbin Hauler: No VTE Prophylaxis VTE Risk Assessment Done? Y/N: Yes Risk Level: Moderate
[2016-11-26] MEDS ORDERED: NURSING VERBAL MED ORDER ONE (00:15)
[2016-11-26] MEDS ORDERED: MAGNESIUM SULFATE 1GM / D5W 1 GM in PREMIXED IN D5W 100 ML IV STA (00:20)
[2016-11-26] MEDS ORDERED: METOPROLOL TARTRATE 25 MG TAB PO ONE (00:30)
[2016-11-26 01:25] LABS: BUN/CREATININE RATIO 24.6 (10-20); CREATININE 1.1 mg/dl (0.60-1.40); MAGNESIUM 2.2 mg/dl (1.8-2.4); POTASSIUM 4.7 mmol/L (3.5-5.1)
[2016-11-26 01:32] LABS: CHOLESTEROL/HDL RATIO 2.1; CKMB/CK RATIO 2.3 (0-3.0)
[2016-11-26 03:37] VITALS: BP 149/87; PULSE 64; TEMP 36.5; O2SAT 96
[2016-11-26 07:19] LABS: INR 1.3 (0.9-1.1); PROTHROMBIN TIME (PATIENT) 14.4 SECONDS (9.0-12.0)
[2016-11-26 07:23] VITALS: BP 166/92; PULSE 69; TEMP 36.5; O2SAT 92
[2016-11-26] MEDS: ASPIRIN 81 MG ECTAB PO SCH (08:44)
[2016-11-26] MEDS: ATORVASTATIN 40 MG TAB PO SCH (08:44)
[2016-11-26] MEDS: CEPHALEXIN MONOHYDRATE 500 MG CAP PO SCH ×4 (08:45→20:26)
[2016-11-26] MEDS: ENOXAPARIN 40 MG/0.4 ML SYR SC SCH (08:45)
[2016-11-26] MEDS: LOSARTAN POTASSIUM 50 MG TAB PO SCH (08:45)
[2016-11-26] MEDS: INSULIN GLARGINE SOLOSTAR 100 UNITS/ML 3 ML PEN SC SCH ×2 (08:48→20:28)
[2016-11-26] MEDS: INSULIN ASPART 100 UNITS/ML 3 ML PEN SC SCH ×4 (08:49→20:29)
[2016-11-26] MEDS ORDERED: METOPROLOL SUCC 25MG EXT REL TAB PO SCH (09:00)
[2016-11-26 09:03] LABS: HEMATOCRIT 39.5 % (42-52); MEAN CELL VOLUME 94.5 fL (80-100); MEAN CORPUSCULAR HEMOGLOBIN 30.6 pg (25-34); MEAN CORPUSCULAR HGB CONC 32.4 g/dl (32-36); MEAN PLATELET VOLUME 10.6 fL (7.4-10.4); PLATELET COUNT 253 K/uL (130-400); RED BLOOD COUNT 4.18 M/uL (4.7-6.1); WHITE BLOOD COUNT 14.18 K/uL (4.8-10.8)
--- NOTE | 2016-11-26 10:20 | Cardiology Consultation ---
Cardiology Consultation Date of Service Nov 26, 2016. (Catia Vasques PA-C) Cardiology Consultation Cardiology Consultation: Date: 11/26/16 Requesting Physician: Dr. Michael Attending Developer Automatic: Dr. Godwin SUBJECTIVE: Turman Little is an 81 year old male who follows with Dr. Fairbanks/ Melo Rocha PA-C of [facility] on a routine basis. He has a complex PMH significant for prior PCI to the RCA and left circumflex with BMS in 2002 (allergy to Plavix noted causing rash). He subsequently underwent CABG with CLEARY to LAD and SVG to OM in 2006 with modified Maze procedure at that time with occlusion of the left atrial appendage. He has a history of paroxysmal afib/flutter on chronic anticoagulation therapy, Dual chamber pacemaker implant in 2015 for tachybrady and conduction system disease with bifascicular block. He was admitted in March 2016 for chest pain, normal cardiac enzymes and subsequently underwent nuclear stress testing as outpatient with demonstrated mild periinfact ischemia in the inferior wall. No recurrent chest pain and med management recommended. He also had updated 2D echo in July 2016 demonstrating decline in LV function with EF 45% and severe MR and severe TR. Due to mild CHF complaints, furosemide and spironolactone doses were increased, with improvement in his symptoms at f/u. Patient states he was in usual state of health, relaxing outside yesterday and developed substernal chest pain, described as tightness. No radiation, no associated symptoms of diaphoresis, nausea, SOB, palpitations, dizziness. Symptoms occurred at rest. Symptoms lasted several minutes and he took 1 SL nitro with relief. Several minutes later, symptoms returned, he took another SL nitro with relief. Within 30 minutes, symptoms returned and he was brought to ER by family members. Upon arrival to ER, symptoms resolved. No recurrence. EKG on admission, demonstrated probable atrial fib with controlled rate and LBBB , compared with prior EKG, afib has replaced NSR. LBBB unchanged. Initial troponin at 0.05. Repeat Troponin last night at 0.2. No recurrent chest pain. At time of consult, patient reports feeling well. Family at bedside. he denies recurrent chest pain since admission. No SOB. He denies changes to his functional capacity. No orthopnea, PND or LE edema. He recently was treated for Left ankle cellulitis ? gout? Taking antibiotic therapy as outpatient. WBC was elevated on admission. Cellulitis improved. No erythema or pain currently. No fevers or chills. Review of Systems: See above for pertinent positives & negatives. A total of 10 systems reviewed and were otherwise negative. Past Medical/Surgical History: 1.Ischemic heart disease 2.Catheter based intervention with bare metal stent to RCA and left circumflex coronary arteries with bare metal stent in 2002. 3.S/P CABG - CLEARY to LAD and a saphenous vein graft to obtuse marginal branch and a modified Maze procedure and occlusion of the left atrial appendage . 4.Paroxysmal atrial fibrillation and flutter 5.Chronic Coumadin anticoagulation. 6.Bifascicular AV block status post dual-chamber pacemaker insertion on 2015. 7.History of spontaneous intraparenchymal cerebral hemorrhage, February 2014 8.Hypertension. 9.Hyperlipidemia. 10.Type 2 diabetes mellitus. 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 12.Gout. 13.Colonoscopy with polypectomy. 14.Tonsillectomy. 15.Adenoidectomy. 16.Bilateral endoscopic inguinal hernia repair. 17.Right arthroscopic knee surgery. 18. Valvular heart disease - Severe MR and TR 19. Systolic HF with LVEF 45% Family History: Father with a CVA at 62. Mother had hypertension, CVA and Alzheimer's. She in her 70s. Brother with CAD. Positive for CAD, hypertension, and diabetes mellitus. Social History: Prior smoker, one pack per day x 30 years. Social alcohol at [employer]. 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 . Girlfriend. Lives at [facility] in [place]. Review of patient's allergies indicates: Penicillins - Unknown reaction, occurred as child Plavix [Clopidogrel Bisulfate] - Rash Current Outpatient Prescriptions Reported Home Medications Medications Dose Route/Sig Max Daily Dose Days Date Category Dose Instructions Keflex (Cephalexin Monohydrate) 500 Mg Cap 500 Mg PO QID 11/23/16 Rx Roxicodone Ir (Oxycodone HCl) 5 Mg Tab 1-2 Tab PO Q4H PRN 11/23/16 Rx Glucophage (Metformin Hcl) 1,000 Mg Tab 1,000 Mg PO BID 11/23/16 Reported Lantus Solostar (Insulin Glargine) 100 Unit/Ml Inj 32 SC QAM 11/23/16 Reported Toprol Xl (Metoprolol Succinate) 25 Mg Tab 25 Mg PO DAILY 06/12/15 Rx Lasix (Furosemide) 20 Mg Tab 20 Mg PO DAILY 09/17/14 Reported Cozaar (Losartan Potassium) 50 Mg Tab 50 Mg PO DAILY 09/17/14 Reported Vitamin D 1000 Unit (Cholecalciferol) 1,000 Unit Cap 1,000 Inter.unit PO DAILY 03/10/14 Reported Coumadin (Warfarin Sodium) 5 Mg Tab 2.5 Mg PO 3XWK 12/29/12 Reported TAKE 2.5 MG EVERY TUESDAY,TUESDAY AND TUESDAY OR OTHERWISE DIRECTED TO TAKE BY ANTICOAGULATION CLINIC/MD. Coumadin (Warfarin Sodium) 5 Mg Tab 5 Mg PO 4XWK 12/29/12 Reported TAKE 5 MG EVERY TUESDAY,TUESDAY,TUESDAY AND TUESDAY OR OTHERWISE DIRECTED TO TAKE BY ANTICOAGULATION CLINIC/MD. Lipitor (Atorvastatin Calcium) 80 Mg Tab 80 Mg PO DAILY 12/29/12 Reported Nitrostat (Nitroglycerin) 0.4 Mg Sub 0.4 Mg UT UD PRN 11/07/[address] ONE TABLET UNDER THE TONGUE EVERY 5 MINUTES FOR UP TO 3 DOSES OVER 15 MINUTES IF NEEDED FOR CHEST PAIN. (According to outpatient cardio records - patient is taking metoprolol 25 mg - 2 tabs in AM and 1 tab in PM OBJECTIVE/PHYSICAL EXAMINATION: Last 8 Hrs Date Time Temp Pulse Resp B/P (MAP) Pulse Ox O2 Delivery O2 Flow Rate FiO2 11/26/16 08:00 Room Air 11/26/16 07:23 36.5 69 18 166/92 (116) 92 Room Air 11/26/16 04:00 Room Air 11/26/16 03:37 36.5 64 18 149/87 (107) 96 Room Air General: NAD. A+Ox3. HEENT: Normocephalic. PER. Conjunctiva pink, sclera clear. No carotid bruits. No JVD. No HJR. Heart: Regular, no audible murmurs. Lungs: Clear to auscultation. Abdomen: +BS. Soft. Nontender. No masses or organomegaly. Extremities: No edema. No clubbing. No cyanosis. Cellulitis on left ankle - resolved Pulses: radial=3/4, posterior tibial=3/4. Data: EKG on admission - Afib with controlled rate, LBBB - compared with prior EKG, afib has replaced NSR. LBBB unchanged. Repeat EKg this AM - Sinus rhythm with 1st degree A-V block Left axis deviation Right bundle branch block Abnormal ECG When compared with ECG of 25-NOV-2016 16:52, Right bundle branch block has replaced Left bundle branch block Telemetry reviewed - NSR with 1st degree aV block, with intermittent PAF, controlled rates. 14 beat run of afib with aberrancy vs VT. Intermittent ventricular pacing also noted. Chest xray - cardiomegaly without CHF or acute fidnings. Last 24 Hours Test 11/25/16 17:00 11/25/16 23:18 11/26/16 00:45 11/26/16 06:50 White Blood Count 16.46 K/uL Red Blood Count 3.90 M/uL Hemoglobin 12.8 g/dL Hematocrit 37.1 % Mean Corpuscular Volume 95.1 fL Mean Corpuscular Hemoglobin 32.8 pg Mean Corpuscular Hemoglobin Concent 34.5 g/dl Platelet Count 220 K/uL Mean Platelet Volume 11.0 fL Neutrophils (%) (Auto) 70.9 % Lymphocytes (%) (Auto) 15.2 % Monocytes (%) (Auto) 13.4 % Eosinophils (%) (Auto) 0.0 % Basophils (%) (Auto) 0.1 % Neutrophils # (Auto) 11.68 K/uL Lymphocytes # (Auto) 2.51 K/uL Monocytes # (Auto) 2.20 K/uL Eosinophils # (Auto) 0.00 K/uL Basophils # (Auto) 0.01 K/uL RDW Standard Deviation 49.4 fL RDW Coefficient of Variation 14.3 % Immature Granulocyte % (Auto) 0.4 % Immature Granulocyte # (Auto) 0.06 K/uL Prothrombin Time 13.8 SECONDS 14.4 SECONDS Prothromb Time International Ratio 1.3 1.3 Activated Partial Thromboplast Time 33.1 SECONDS Partial Thromboplastin Ratio 1.3 Sodium Level 135 mmol/L 136 mmol/L Potassium Level 4.5 mmol/L 4.7 mmol/L Chloride Level 105 mmol/L 105 mmol/L Carbon Dioxide Level 21 mmol/L 24 mmol/L Anion Gap 9.0 mmol/L 7.0 mmol/L Blood Urea Nitrogen 28 mg/dl 27 mg/dl Creatinine 1.30 mg/dl 1.10 mg/dl Est Creatinine Clear Calc Drug Dose 56.3 ml/min 66.1 ml/min Estimated GFR () 59.3 72.6 Estimated GFR (Non- 51.2 62.6 BUN/Creatinine Ratio 21.9 24.6 Random Glucose 296 mg/dl 275 mg/dl Calcium Level 8.9 mg/dl 9.0 mg/dl Total Bilirubin 0.6 mg/dl Direct Bilirubin 0.2 mg/dl Aspartate Amino Transf (AST/SGOT) 22 U/L Alanine Aminotransferase (ALT/SGPT) 27 U/L Alkaline Phosphatase 68 U/L Total Creatine Kinase 190 U/L 176 U/L Creatine Kinase MB 3.7 ng/ml 4.0 ng/ml Creatine Kinase MB Ratio 1.9 2.3 Troponin I 0.056 ng/ml 0.250 ng/ml Total Protein 7.5 gm/dl Albumin 3.3 gm/dl Lipase 66 U/L Bedside Glucose 298 mg/dl Magnesium Level 2.2 mg/dl Triglycerides Level 82 mg/dl Cholesterol Level 142 mg/dl HDL Cholesterol 68 mg/dl LDL Cholesterol, Calculated 58 mg/dl VLDL Cholesterol, Calculated 16 mg/dl Cholesterol/HDL Ratio 2.1 Test 11/26/16 07:47 11/26/16 08:04 Bedside Glucose 197 mg/dl White Blood Count 14.18 K/uL Red Blood Count 4.18 M/uL Hemoglobin 12.8 g/dL Hematocrit 39.5 % Mean Corpuscular Volume 94.5 fL Mean Corpuscular Hemoglobin 30.6 pg Mean Corpuscular Hemoglobin Concent 32.4 g/dl RDW Standard Deviation 49.4 fL RDW Coefficient of Variation 14.4 % Platelet Count 253 K/uL Mean Platelet Volume 10.6 fL Prior Data; April 2016 Lexiscan Interpretation Summary (as per Dr. Mason): Lexiscan nuclear cardiac stress test positive for periinfarct ischemia. There is reversibility in the inferior wall(s). Gated SPECT images demonstrated hypokinesis of the basal inferior myocardial wall. The LV ejection fraction is calculated at 53%Compared to previous study dated June 02, 2015: Basal inferior infarct with otis infarct ischemia now present. July 21, 2016 TTE Interpretation Summary (as per Dr. Godwin): The left ventricular cavity size is normal. The LV wall thickness is moderately increased (concentric). The septal motion is abnormal consistent with interventricular conduction delay or ventricular pacing. Calculated LV ejection Fraction = 45% (biplane method of discs). Severe mitral regurgitation is present. Severe tricuspid regurgitation is present. The left atrium is severely enlarged (>48 ml/m^2,). The right atrium is severely enlarged. The estimated pulmonary artery systolic pressure is 30-35 mmHg. Device interrogation on 09/13/2016 demonstrated appropriate function with adequate battery reserve. Estimated remaining longevity was 8.5 years. Paroxysmal atrial fibrillation observed, certainly much less than on the prior interrogation. Rhythm -VS 67%. ARTS THERAPIST-VS 25%. AP-VS 5%. AP-ARTS THERAPIST 3%. IMPRESSION and PLAN: 81 year old male 1. Chest pain -resolved with SL nitro -EKG nondiagnostic with conduction system disease -Troponin 0.05 and 0.2 respectively. Repeat pending from this AM -symptoms resolved -echo pending -if troponin increases further and/or changes noted on echo, need to consider repeat cardiac catheterization. 2. History of CAD s/p remote PCI to the RCA and left circumflex; CABG x2 in 2006 - Nuclear stress testing in 04/2016 revealed mild otis infarct ischemia in inferior leads 3. Ischemic cardiomyopathy - with LVEF 45% per echo in 07/2016 - interval decline in LV function noted since prior echo in 03/2016. He was asymptomatic at the time. No cardiac cath completed 4. Hypertension - elevated -Inpatient med list reviewed. Incorrect compared to outpatient med list. Increase toprol to 50 mg in AM and 25 mg in PM (home dose). 5. Leukocytosis - on Antibiotic for recent left ankle cellulitis. -echo ordered and pending -continue antibiotic therapy. -cellulitis improved. -? need for blood cultures but ? accuracy with antibiotic therapy -no fevers. 6. Valvular heart disease with severe MR and severe TR per echo in 07/2016. 7. Paroxysmal afib on chronic Coumadin, ? episode of VT vs afib with aberrancy ( 14 beats around midnight). -increase metoprolol to home dose of 50 mg in AM and 25 mg in PM -INR subtherapeutic. -Lovenox and Coumadin. 8. Dual chamber pacemaker implant in 2015 secondary to tachybrady and conduction system disease. -check device for arrhythmias at time of chest pain. -check afib burden DVT proph- lovenox and Coumadin Case discussed with Dr. Godwin. Further recommendations pending review of repeat labs/cardiac enzymes, echo. (Catia Vasques PA-C) CARDIOLOGY ATTENDING ADDENDUM: The patient was seen and personally examined. Agree with Catia Vasques PA-C's findings and plans as documented above. Patient would like to be conservative if possible regarding management of CAD. Will await further enz. Pt. may also [place] [facility] as elective outpatient. BP is high and will give extra dose of losartan. (Tony Godwin, DO)
[2016-11-26] MEDS ORDERED: METOPROLOL SUCC 25MG EXT REL TAB PO ONE (10:27)
[2016-11-26 11:30] VITALS: BP 173/92; PULSE 62; TEMP 36.6; O2SAT 93
[2016-11-26] MEDS ORDERED: LOSARTAN POTASSIUM 25 MG TAB PO ONE (12:00)
[2016-11-26 12:03] LABS: ESTIMATED AVERAGE GLUCOSE 186 mg/dl; HA1C FLAG Normal (Normal)
--- NOTE | 2016-11-26 13:35 | ECHOCARDIOGRAM REPORT ---
*NOTICE TO RECEIVING CONSTITUTION PARTY AGENCY This information is strictly Confidential and protected under [place] law. [place] law prohibits you from making any further disclosure of this information unless further disclosure is expressly permitted by the written consent of the person to whom it pertains or is authorized by law. A general authorization for the release of medical or other information is not sufficient for this purpose. Hospital accepts no responsibility if the information is made available to any other person, INCLUDING THE PATIENT. Interpretation Summary * Name: ANTOINETTE AHUMADA Study Date: 11/26/2016 09:43 AM BP: 166/92 mmHg * Patient Location: C.2T\S\S242\S\1 HR: 76 * : 1935 (M/d/yyyy) Gender: Male Height: 71 in * Age: 81 yrs Ethnicity: CA Weight: 242 lb * Ordering Physician: Usama Michael * Referring Physician: Gadiel Fairbanks * Performed By: Sydnee Wilkerson RCS * * Reason For Study: CHEST PAIN * BSA: 2.3 m2 * -- Conclusions -- * There is mild concentric left ventricular hypertrophy. * Ejection Fraction = 50-55%. * The right ventricular systolic function is normal. * The left atrium is moderately dilated. * The right atrium is moderately dilated. * There is moderate to severe mitral regurgitation. * There is moderate to severe tricuspid regurgitation. Procedure Details * A complete two-dimensional transthoracic echocardiogram was performed (2D, M-mode, Doppler and color flow Doppler). Left Ventricle * The left ventricle is normal in size. * There is mild concentric left ventricular hypertrophy. * Ejection Fraction = 50-55%. Right Ventricle * The right ventricle is normal size. * There is a pacemaker lead in the right ventricle. * The right ventricular systolic function is normal. Atria * The left atrium is moderately dilated. * The right atrium is moderately dilated. * The interatrial septum is intact with no evidence for an atrial septal defect. Mitral Valve * The mitral valve leaflets appear thickened, but open well. * There is moderate to severe mitral regurgitation. Tricuspid Valve * The tricuspid valve is not well visualized, but is grossly normal. * There is moderate to severe tricuspid regurgitation. Aortic Valve * Aortic valve sclerosis moderate, without significant aortic valvular stenosis. * There is no significant aortic regurgitation. Pulmonic Valve * The pulmonic valve is not well visualized. * There is no significant pulmonary regurgitation. Great Vessels * The aortic root and proximal ascending aorta are normal sized. Pericardium/Pleural * There is no pericardial effusion. MMode 2D Measurements and Calculations IVSd 1.5 cm IVSs 2.3 cm LVIDd 5.0 cm LVIDs 3.8 cm LVPWd 1.5 cm LVPWs 1.5 cm IVS/LVPW 0.95 FS 24.9 % EDV(Teich) 120.3 ml ESV(Teich) 61.2 ml EF(Teich) 49.1 % EDV(cubed) 127.8 ml ESV(cubed) 54.1 ml EF(cubed) 57.7 % % IVS thick 61.4 % % LVPW thick -0.72 % LV mass(C)d 323.6 grams LV mass(C)dI 141.5 grams/m\S\2 LV mass(C)s 327.8 grams LV mass(C)sI 143.3 grams/m\S\2 SV(Teich) 59.1 ml SI(Teich) 25.8 ml/m\S\2 SV(cubed) 73.7 ml SI(cubed) 32.2 ml/m\S\2 Ao root diam 3.0 cm Ao root area 7.2 cm\S\2 ACS 2.1 cm LA dimension 4.9 cm LA/Ao 1.6 LVOT diam 2.0 cm LVOT area 3.2 cm\S\2 LVAd ap4 34.7 cm\S\2 LVLd ap4 7.9 cm EDV(MOD-sp4) 127.6 ml EDV(sp4-el) 128.8 ml LVAs ap4 20.7 cm\S\2 LVLs ap4 6.2 cm ESV(MOD-sp4) 57.8 ml ESV(sp4-el) 58.8 ml EF(MOD-sp4) 54.8 % EF(sp4-el) 54.3 % LVAd ap2 40.8 cm\S\2 LVLd ap2 8.5 cm EDV(MOD-sp2) 159.9 ml EDV(sp2-el) 167.1 ml LVAs ap2 26.2 cm\S\2 LVLs ap2 7.4 cm ESV(MOD-sp2) 73.4 ml ESV(sp2-el) 78.9 ml EF(MOD-sp2) 54.1 % EF(sp2-el) 52.8 % LVLd %diff 6.2 % EDV(MOD-bp) 149.4 ml LVLs %diff 16.8 % ESV(MOD-bp) 72.4 ml EF(MOD-bp) 51.5 % SV(MOD-sp4) 69.9 ml SI(MOD-sp4) 30.6 ml/m\S\2 SV(MOD-sp2) 86.5 ml SI(MOD-sp2) 37.8 ml/m\S\2 SV(MOD-bp) 76.9 ml SI(MOD-bp) 33.6 ml/m\S\2 SV(sp4-el) 70.0 ml SI(sp4-el) 30.6 ml/m\S\2 SV(sp2-el) 88.2 ml SI(sp2-el) 38.6 ml/m\S\2 Doppler Measurements and Calculations MV E max maribel 69.0 cm/sec MV dec time 0.29 sec Ao V2 max 116.8 cm/sec Ao max PG 5.5 mmHg Ao max PG (full) 3.7 mmHg FLORES(V,A) 1.8 cm\S\2 FLORES(V,D) 1.8 cm\S\2 LV V1 max PG 1.8 mmHg LV V1 max 66.9 cm/sec MR max maribel 485.3 cm/sec MR max PG 94.3 mmHg PA V2 max 85.9 cm/sec PA max PG 3.0 mmHg TR max maribel 253.6 cm/sec
[2016-11-26 13:56] LABS: CKMB/CK RATIO 2.1 (0-3.0)
[2016-11-26 15:08] VITALS: BP 157/87; PULSE 71; TEMP 36.9; O2SAT 94
[2016-11-26] MEDS: WARFARIN SOD 5 MG TAB PO SCH (17:04)
--- NOTE | 2016-11-26 18:32 | Progress Note ---
Medicine Progress Note Date & Time of Visit: Nov 26, 2016 at 18:30. Subjective Patient reports mild CP this AM when getting blood drawn but no recurrence of the pain he had prior to admission. No overnight events noted. Tolerating PO. Denies any CAMP, dizziness/lightheadedness, palpitations. Is anxious to go home. Objective Last 8 Hrs Date Time Temp Pulse Resp B/P (MAP) Pulse Ox O2 Delivery O2 Flow Rate FiO2 11/26/16 16:00 Room Air 11/26/16 15:08 36.9 71 22 157/87 (110) 94 Room Air 11/26/16 12:00 Room Air 11/26/16 11:30 36.6 62 18 173/92 (119) 93 Room Air Physical Exam: GENERAL: Patient is in no acute distress. HEENT: No acute trauma, normocephalic, mucous membranes moist, no nasal congestion, no scleral icterus. NECK: No stridor, trachea is midline. LUNGS: Clear to auscultation bilaterally, no wheeze, no rhonchi, breath sounds equal. HEART: Without murmurs gallops or rubs, RR, S1 and S2 auscultated ABDOMEN: Soft, nontender, bowel sounds positive EXTREMITIES: No cyanosis or edema NEUROLOGIC: Oriented x 3, no acute motor or sensory deficits, no focal weakness. SKIN: No rash, no jaundice, no diaphoresis. Left foot cellulitis resolved, no erythema present Laboratory Results: Last 24 Hours Test 11/25/16 23:18 11/26/16 00:45 11/26/16 06:50 11/26/16 07:47 Bedside Glucose 298 mg/dl 197 mg/dl Sodium Level 136 mmol/L Potassium Level 4.7 mmol/L Chloride Level 105 mmol/L Carbon Dioxide Level 24 mmol/L Anion Gap 7.0 mmol/L Blood Urea Nitrogen 27 mg/dl Creatinine 1.10 mg/dl Est Creatinine Clear Calc Drug Dose 66.1 ml/min Estimated GFR () 72.6 Estimated GFR (Non- 62.6 BUN/Creatinine Ratio 24.6 Random Glucose 275 mg/dl Calcium Level 9.0 mg/dl Magnesium Level 2.2 mg/dl Total Creatine Kinase 176 U/L Creatine Kinase MB 4.0 ng/ml Creatine Kinase MB Ratio 2.3 Troponin I 0.250 ng/ml Triglycerides Level 82 mg/dl Cholesterol Level 142 mg/dl HDL Cholesterol 68 mg/dl LDL Cholesterol, Calculated 58 mg/dl VLDL Cholesterol, Calculated 16 mg/dl Cholesterol/HDL Ratio 2.1 Prothrombin Time 14.4 SECONDS Prothromb Time International Ratio 1.3 Test 11/26/16 08:04 11/26/16 11:20 11/26/16 16:20 White Blood Count 14.18 K/uL Red Blood Count 4.18 M/uL Hemoglobin 12.8 g/dL Hematocrit 39.5 % Mean Corpuscular Volume 94.5 fL Mean Corpuscular Hemoglobin 30.6 pg Mean Corpuscular Hemoglobin Concent 32.4 g/dl RDW Standard Deviation 49.4 fL RDW Coefficient of Variation 14.4 % Platelet Count 253 K/uL Mean Platelet Volume 10.6 fL Estimated Average Glucose 186 mg/dl Hemoglobin A1c 8.1 % Total Creatine Kinase 161 U/L Creatine Kinase MB 3.4 ng/ml Creatine Kinase MB Ratio 2.1 Troponin I 0.350 ng/ml Bedside Glucose 176 mg/dl 197 mg/dl Date/Time Source Procedure Growth Status 11/26/16 11:40 Blood Blood Culture Pending Received 11/26/16 11:40 Blood Blood Culture Pending Received Assessment & Plan CHEST PAIN: -has significant hx of CAD, s/p stents, s/p CABG -cardiac enzymes trending up -no recurrence of chest pain since admission; at home was relieved by 3 NTG -TTE: EF 50-55% -continue ASA, b-mitchel, statin -Cardiology consulted, appreciate recs, patient will likely need a repeat cath, patient is in agreement but wishes to have it as an outpt PAF: -INR subtherapeutic, remains at 1.3 -rate controlled -continued on b-mitchel -will continue daily monitoring and adjust coumadin dose as needed -continue lovenox until INR is at goal of 2-3 Recent Cellulitis: -continued on Keflex day#2 -leukocytosis still present; unclear whether just related to cellulitis; blood cultures obtained DM Type II: insulin dependent -HbA1c: 8.1% Lantus + sliding scale continued -monitor BSGs and adjust dose accordingly HTN: -blood pressure on higher side -continued on Cozaar and b-mitchel -given extra dose of losartan today Hyperlipidemia: -continue statin DVT prophylaxis: -Lovenox; until INR is therapeutic Current Inpatient Medications: Current Inpatient Medications Medications (Trade) Dose Ordered Sig/Hammad Route Start Time Stop Time Status Last Admin Dose Admin Enoxaparin Sodium (Lovenox Inj) 40 mg Q24H SC 11/26/16 09:00 12/26/16 08:59 11/26/16 08:45 40 MG Acetaminophen (Tylenol Tab) 650 mg Q4H PRN PO 11/25/16 20:45 12/25/16 20:44 Al Hydrox/Mg Hydrox/Simethicone (Maalox Max Susp) 15 ml Q4H PRN PO 11/25/16 20:45 12/25/16 20:44 Magnesium Hydroxide (Milk Of Magnesia Susp) 30 ml Q12H PRN PO 11/25/16 20:45 12/25/16 20:44 Ondansetron HCl (Zofran Inj) 4 mg Q6H PRN IV 11/25/16 20:45 12/25/16 20:44 Nitroglycerin (Nitrostat Tab) 0.4 mg UD PRN SL 11/25/16 20:45 12/25/16 20:44 Aspirin (Ecotrin Tab) 81 mg QAM PO 11/26/16 09:00 12/26/16 08:59 11/26/16 08:44 81 MG Polyethylene (Miralax Powder Packet) 17 gm DAILY PRN PO 11/25/16 20:45 12/25/16 20:44 Atorvastatin Calcium (Lipitor Tab) 80 mg DAILY PO 11/26/16 09:00 12/26/16 08:59 11/26/16 08:44 80 MG Cephalexin Monohydrate (Keflex Cap) 500 mg QID PO 11/25/16 22:30 12/05/16 22:29 11/26/16 17:04 500 MG Losartan Potassium (coZAAR TAB) 50 mg DAILY PO 11/26/16 09:00 12/26/16 08:59 11/26/16 08:45 50 MG Warfarin Sodium (Coumadin Tab) 5 mg DAILY@16 PO 11/26/16 16:00 12/26/16 15:59 11/26/16 17:04 5 MG Insulin Glargine (Lantus Solostar Pen) 12 units Q12 SC 11/25/16 22:30 12/25/16 22:29 11/26/16 08:48 12 UNITS Insulin Aspart (novoLOG ASPART) SLIDING SCALE If C... ACHS SC 11/25/16 22:30 12/25/16 22:29 11/26/16 17:03 5 UNITS Glucose (Glucose 40% Gel) 15-30 GRAMS 15 GRAMS... UD PRN PO 11/25/16 20:45 12/25/16 20:44 Glucose (Glucose Chew Tab) 4-8 Tablets 4 Tabl... UD PRN PO 11/25/16 20:45 12/25/16 20:44 Dextrose (Dextrose 50% 50ML Syringe) 25-50ML OF 50% DW IV FOR... UD PRN IV 11/25/16 20:45 12/25/16 20:44 Glucagon (Glucagon Inj) 1 mg UD PRN SQ 11/25/16 20:45 12/25/16 20:44 Miscellaneous (Iv Fluids Completed) 1 ea PRN PRN N/A 11/25/16 22:15 11/25/17 22:14 Metoprolol Succinate (Toprol Xl Tab) 50 mg QAM PO 11/27/16 09:00 12/26/16 08:59 Metoprolol Succinate (Toprol Xl Tab) 25 mg QPM PO 11/26/16 21:00 12/26/16 20:59
[2016-11-26 19:25] VITALS: BP 147/77; PULSE 65; TEMP 36.5; O2SAT 93
[2016-11-26] MEDS: METOPROLOL SUCC 25MG EXT REL TAB PO SCH (20:26)
[2016-11-26 23:02] VITALS: BP 154/89; PULSE 68; TEMP 36.4; O2SAT 95
[2016-11-27] VITALS (7 sets, daily range): BP systolic 103–165; BP diastolic 64–93; PULSE 63–77; TEMP 36.4–36.8; O2SAT 94–95
[2016-11-27] MEDS: INSULIN ASPART 100 UNITS/ML 3 ML PEN SC SCH ×4 (07:00→20:57)
[2016-11-27] MEDS: ACETAMINOPHEN 325 MG TAB PO PRN ×2 (07:39→20:17)
[2016-11-27 07:57] LABS: INR 1.6 (0.9-1.1); PROTHROMBIN TIME (PATIENT) 17.3 SECONDS (9.0-12.0)
[2016-11-27] MEDS: LOSARTAN POTASSIUM 50 MG TAB PO SCH (08:33)
[2016-11-27] MEDS: METOPROLOL SUCC 25MG EXT REL TAB PO SCH ×2 (08:33→19:55)
[2016-11-27] MEDS: ASPIRIN 81 MG ECTAB PO SCH (08:33)
[2016-11-27] MEDS: CEPHALEXIN MONOHYDRATE 500 MG CAP PO SCH ×4 (08:33→19:55)
[2016-11-27] MEDS: ENOXAPARIN 40 MG/0.4 ML SYR SC SCH (08:33)
[2016-11-27] MEDS: ATORVASTATIN 40 MG TAB PO SCH (08:33)
[2016-11-27] MEDS: INSULIN GLARGINE SOLOSTAR 100 UNITS/ML 3 ML PEN SC SCH ×2 (08:35→21:18)
[2016-11-27 12:00] LABS: HEMATOCRIT 36.4 % (42-52); MEAN CELL VOLUME 94.8 fL (80-100); MEAN CORPUSCULAR HEMOGLOBIN 31.5 pg (25-34); MEAN CORPUSCULAR HGB CONC 33.2 g/dl (32-36); MEAN PLATELET VOLUME 10.2 fL (7.4-10.4); PLATELET COUNT 226 K/uL (130-400); RED BLOOD COUNT 3.84 M/uL (4.7-6.1); WHITE BLOOD COUNT 13.63 K/uL (4.8-10.8)
[2016-11-27 12:24] LABS: BUN/CREATININE RATIO 21.4 (10-20); CALCIUM 8.6 mg/dl (8.5-10.1); CREATININE 0.87 mg/dl (0.60-1.40); POTASSIUM 4.1 mmol/L (3.5-5.1)
--- NOTE | 2016-11-27 12:25 | Cardiology Follow-Up ---
Subjective Subjective Date of Service: Nov 27, 2016. Pt evaluation today including: conversation w/ patient, physical exam, chart review, lab review, review of studies, review of inpatient medication list Additional Details: Pt seen and examined, states that he's feeling ok. No further chest pain. Denies sob, palpitations, lightheadedness or dizziness. Tele reviewed: sinus rhythm without arrhythmia Problem List Medical Problems: (1) Cellulitis Status: Acute (2) Elevated troponin level Status: Acute (3) Foot pain Status: Acute (4) Left ankle pain Status: Acute (5) Substernal discomfort Status: Acute (6) Unstable angina Status: Acute Review of Systems Respiratory: No see HPI, No cough, No sputum, No wheezing, No shortness of breath, No dyspnea on exertion, No dyspnea at rest, No hemoptysis, No problem reported Cardiac: + chest pain, No see HPI, No orthopnea, No PND, No edema, No claudication, No palpitations, No problem reported Objective Vital Signs Last Vital Signs Documentation Date Time Temp Pulse Resp B/P (MAP) Pulse Ox O2 Delivery O2 Flow Rate FiO2 11/27/16 11:30 36.8 64 20 150/89 (109) 94 Room Air Physical Exam: General Appearance: WD/WN, no apparent distress Eyes: bilateral eyes normal inspection, bilateral eyes PERRL, bilateral eyes EOMI ENT: normal ENT inspection, hearing grossly normal, pharynx normal Neck: supple, no adenopathy, thyroid normal, no JVD, no carotid bruits, trachea midline Respiratory/Chest: chest non-tender, lungs clear, normal breath sounds, no respiratory distress, no accessory muscle use Cardiovascular: regular rate, rhythm, no edema, no murmur, + gallop/S4 Abdomen: normal bowel sounds, non tender, soft, no organomegaly Extremities: normal inspection, no pedal edema, no calf tenderness 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 chest pain no further minimal troponin elevation with negative cpk no new wall motion abnormalities on echo but with otis-infarct ischemia on stress in 05/07 previously treated medically, but with recurrent break through pain will now need repeat cath discussed option of remaining inpatient and performing on 11/29 or d/c to home and scheduling as an outpatient pt prefers to remain inpatient for now npo after midnight on 03/31 will hold coumadin, currently in sinus HX OF ALLERGIC REACTION TO PLAVIX 2. Paroxysmal atrial fib/flutter s/p maze currently in sinus hold coumadin 3. hypertension controlled cont current meds
[2016-11-27] MEDS: WARFARIN SOD 5 MG TAB PO SCH (16:00)
--- NOTE | 2016-11-27 16:11 | Progress Note ---
Medicine Progress Note Date & Time of Visit: Nov 27, 2016 at 16:09. Subjective Patient denies any complaints of CP or SOB. He is agreeable to stay in the hospital until he can get the cardiac cath. No overnight events noted. Tolerating PO. Denies any fever/chills/sweats. LLE cellulitis resolved. Objective Last 8 Hrs Date Time Temp Pulse Resp B/P (MAP) Pulse Ox O2 Delivery O2 Flow Rate FiO2 11/27/16 12:00 Room Air 11/27/16 11:30 36.8 64 20 150/89 (109) 94 Room Air Physical Exam: GENERAL: Patient is in no acute distress. HEENT: No acute trauma, normocephalic, mucous membranes moist, no nasal congestion, no scleral icterus. NECK: No stridor, trachea is midline. LUNGS: Clear to auscultation bilaterally, no wheeze, no rhonchi, breath sounds equal. HEART: Without murmurs gallops or rubs, RR, S1 and S2 auscultated ABDOMEN: Soft, nontender, bowel sounds positive EXTREMITIES: No cyanosis or edema NEUROLOGIC: Oriented x 3, no acute motor or sensory deficits, no focal weakness. SKIN: No rash, no jaundice, no diaphoresis. Left foot cellulitis resolved, no erythema present Laboratory Results: Last 24 Hours Test 11/26/16 16:20 11/26/16 20:15 11/27/16 06:43 11/27/16 07:26 Bedside Glucose 197 mg/dl 182 mg/dl 122 mg/dl Prothrombin Time 17.3 SECONDS Prothromb Time International Ratio 1.6 Test 11/27/16 11:28 11/27/16 11:46 Bedside Glucose 133 mg/dl White Blood Count 13.63 K/uL Red Blood Count 3.84 M/uL Hemoglobin 12.1 g/dL Hematocrit 36.4 % Mean Corpuscular Volume 94.8 fL Mean Corpuscular Hemoglobin 31.5 pg Mean Corpuscular Hemoglobin Concent 33.2 g/dl RDW Standard Deviation 50.1 fL RDW Coefficient of Variation 14.5 % Platelet Count 226 K/uL Mean Platelet Volume 10.2 fL Sodium Level 141 mmol/L Potassium Level 4.1 mmol/L Chloride Level 109 mmol/L Carbon Dioxide Level 28 mmol/L Anion Gap 4.0 mmol/L Blood Urea Nitrogen 19 mg/dl Creatinine 0.87 mg/dl Est Creatinine Clear Calc Drug Dose 83.6 ml/min Estimated GFR () 93.8 Estimated GFR (Non- 80.9 BUN/Creatinine Ratio 21.4 Random Glucose 132 mg/dl Calcium Level 8.6 mg/dl Assessment & Plan CHEST PAIN: -has significant hx of CAD, s/p stents, s/p CABG -cardiac enzymes trended up slightly -no recurrence of chest pain since admission; at home was relieved by 3 NTG -TTE: EF 50-55%, there is mild concentric left ventricular hypertrophy, bilateral atria moderately dilated, moderate to severe TR -continue ASA, b-mitchel, statin -Cardiology consulted, appreciate recs, patient have a repeat cath on Tuesday, patient is in agreement. PAF: -INR subtherapeutic, at 1.6 -rate controlled -continued on b-mitchel -coumadin stopped today per Cardio as patient has been in NSR -continue lovenox Recent Cellulitis: -continued on Keflex day#3 -leukocytosis trending down but still present; unclear whether just related to cellulitis; blood cultures obtained, no growth thus far DM Type II: insulin dependent -HbA1c: 8.1% -Lantus + sliding scale continued -monitor BSGs and adjust dose accordingly HTN: -blood pressure on higher side -continued on Cozaar and b-mitchel Hyperlipidemia: -continue statin DVT prophylaxis: -Lovenox Current Inpatient Medications: Current Inpatient Medications Medications (Trade) Dose Ordered Sig/Hammad Route Start Time Stop Time Status Last Admin Dose Admin Enoxaparin Sodium (Lovenox Inj) 40 mg Q24H SC 11/26/16 09:00 12/26/16 08:59 11/27/16 08:33 40 MG Acetaminophen (Tylenol Tab) 650 mg Q4H PRN PO 11/25/16 20:45 12/25/16 20:44 11/27/16 07:39 650 MG Al Hydrox/Mg Hydrox/Simethicone (Maalox Max Susp) 15 ml Q4H PRN PO 11/25/16 20:45 12/25/16 20:44 Magnesium Hydroxide (Milk Of Magnesia Susp) 30 ml Q12H PRN PO 11/25/16 20:45 12/25/16 20:44 Ondansetron HCl (Zofran Inj) 4 mg Q6H PRN IV 11/25/16 20:45 12/25/16 20:44 Nitroglycerin (Nitrostat Tab) 0.4 mg UD PRN SL 11/25/16 20:45 12/25/16 20:44 Aspirin (Ecotrin Tab) 81 mg QAM PO 11/26/16 09:00 12/26/16 08:59 11/27/16 08:33 81 MG Polyethylene (Miralax Powder Packet) 17 gm DAILY PRN PO 11/25/16 20:45 12/25/16 20:44 Atorvastatin Calcium (Lipitor Tab) 80 mg DAILY PO 11/26/16 09:00 12/26/16 08:59 11/27/16 08:33 80 MG Cephalexin Monohydrate (Keflex Cap) 500 mg QID PO 11/25/16 22:30 12/05/16 22:29 11/27/16 12:29 500 MG Losartan Potassium (coZAAR TAB) 50 mg DAILY PO 11/26/16 09:00 12/26/16 08:59 11/27/16 08:33 50 MG Warfarin Sodium (Coumadin Tab) 5 mg DAILY@16 PO 11/26/16 16:00 12/26/16 15:59 11/26/16 17:04 5 MG Insulin Glargine (Lantus Solostar Pen) 12 units Q12 SC 11/25/16 22:30 12/25/16 22:29 11/27/16 08:35 12 UNITS Insulin Aspart (novoLOG ASPART) SLIDING SCALE If C... ACHS SC 11/25/16 22:30 12/25/16 22:29 11/27/16 12:26 2 UNITS Glucose (Glucose 40% Gel) 15-30 GRAMS 15 GRAMS... UD PRN PO 11/25/16 20:45 12/25/16 20:44 Glucose (Glucose Chew Tab) 4-8 Tablets 4 Tabl... UD PRN PO 11/25/16 20:45 12/25/16 20:44 Dextrose (Dextrose 50% 50ML Syringe) 25-50ML OF 50% DW IV FOR... UD PRN IV 11/25/16 20:45 12/25/16 20:44 Glucagon (Glucagon Inj) 1 mg UD PRN SQ 11/25/16 20:45 12/25/16 20:44 Miscellaneous (Iv Fluids Completed) 1 ea PRN PRN N/A 11/25/16 22:15 11/25/17 22:14 Metoprolol Succinate (Toprol Xl Tab) 50 mg QAM PO 11/27/16 09:00 12/26/16 08:59 11/27/16 08:33 50 MG Metoprolol Succinate (Toprol Xl Tab) 25 mg QPM PO 11/26/16 21:00 12/26/16 20:59 11/26/16 20:26 25 MG
[2016-11-28 03:18] VITALS: BP 152/85; PULSE 64; TEMP 36.4; O2SAT 94
[2016-11-28] MEDS: ACETAMINOPHEN 325 MG TAB PO PRN ×2 (04:24→21:06)
[2016-11-28 07:17] LABS: INR 1.6 (0.9-1.1); PROTHROMBIN TIME (PATIENT) 17.8 SECONDS (9.0-12.0)
[2016-11-28 07:36] VITALS: BP_SYST 165; BP_SYST 173; BP_DIAS 88; BP_DIAS 95; PULSE 58; TEMP 36.3; O2SAT 95
[2016-11-28] MEDS: ATORVASTATIN 40 MG TAB PO SCH (08:31)
[2016-11-28] MEDS: LOSARTAN POTASSIUM 50 MG TAB PO SCH (08:31)
[2016-11-28] MEDS: ASPIRIN 81 MG ECTAB PO SCH (08:31)
[2016-11-28] MEDS: CEPHALEXIN MONOHYDRATE 500 MG CAP PO SCH ×4 (08:31→19:55)
[2016-11-28] MEDS: METOPROLOL SUCC 25MG EXT REL TAB PO SCH ×2 (08:31→19:56)
[2016-11-28] MEDS: ENOXAPARIN 40 MG/0.4 ML SYR SC SCH ×2 (08:32→09:13)
[2016-11-28] MEDS: INSULIN GLARGINE SOLOSTAR 100 UNITS/ML 3 ML PEN SC SCH ×2 (08:33→21:06)
[2016-11-28] MEDS: INSULIN ASPART 100 UNITS/ML 3 ML PEN SC SCH ×4 (08:33→21:00)
[2016-11-28 08:58] LABS: HEMATOCRIT 39.7 % (42-52); MEAN CELL VOLUME 94.3 fL (80-100); MEAN CORPUSCULAR HEMOGLOBIN 30.9 pg (25-34); MEAN CORPUSCULAR HGB CONC 32.7 g/dl (32-36); MEAN PLATELET VOLUME 10.5 fL (7.4-10.4); PLATELET COUNT 234 K/uL (130-400); RED BLOOD COUNT 4.21 M/uL (4.7-6.1); WHITE BLOOD COUNT 9.67 K/uL (4.8-10.8)
[2016-11-28 09:22] LABS: BUN/CREATININE RATIO 16.7 (10-20); CALCIUM 9.2 mg/dl (8.5-10.1); CREATININE 0.9 mg/dl (0.60-1.40); POTASSIUM 3.9 mmol/L (3.5-5.1)
[2016-11-28] MEDS ORDERED: LOSARTAN POTASSIUM 50 MG TAB PO ONE (09:54)
[2016-11-28 11:49] VITALS: BP 138/84; PULSE 71; TEMP 36.7; O2SAT 93
--- NOTE | 2016-11-28 12:08 | Cardiology Follow-Up ---
Subjective Subjective Date of Service: Nov 28, 2016. Pt evaluation today including: conversation w/ patient, physical exam, chart review, lab review, review of studies, review of inpatient medication list Additional Details: Pt seen and examined, states that he is feeling well. Concerned that BP is up but denies cp, sob, palpitations, lightheadedness or dizziness. Tele reviewed: sinus rhythm without arrhythmia or significant ectopy Problem List Medical Problems: (1) Cellulitis Status: Acute (2) Elevated troponin level Status: Acute (3) Foot pain Status: Acute (4) Left ankle pain Status: Acute (5) Substernal discomfort Status: Acute (6) Unstable angina Status: Acute Review of Systems Respiratory: No see HPI, No cough, No sputum, No wheezing, No shortness of breath, No dyspnea on exertion, No dyspnea at rest, No hemoptysis, No problem reported Cardiac: + chest pain, No see HPI, No orthopnea, No PND, No edema, No claudication, No palpitations, No problem reported Objective Vital Signs Last Vital Signs Documentation Date Time Temp Pulse Resp B/P (MAP) Pulse Ox O2 Delivery O2 Flow Rate FiO2 11/28/16 08:00 Room Air 11/28/16 07:36 36.3 58 20 173/88 (116) 95 165/95 (118) Physical Exam: General Appearance: WD/WN, no apparent distress Eyes: bilateral eyes normal inspection, bilateral eyes PERRL, bilateral eyes EOMI ENT: normal ENT inspection, hearing grossly normal, pharynx normal Neck: supple, no adenopathy, thyroid normal, no JVD, no carotid bruits, trachea midline Respiratory/Chest: chest non-tender, lungs clear, normal breath sounds, no respiratory distress, no accessory muscle use Cardiovascular: regular rate, rhythm, no edema, no murmur, + gallop/S4 Abdomen: normal bowel sounds, non tender, soft, no organomegaly Extremities: normal inspection, no pedal edema, no calf tenderness 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 chest pain no further minimal troponin elevation with negative cpk no new wall motion abnormalities on echo but with otis-infarct ischemia on stress in 05/07 previously treated medically, but with recurrent break through pain will now need repeat cath npo after midnight will hold coumadin, currently in sinus HX OF ALLERGIC REACTION TO PLAVIX 2. Paroxysmal atrial fib/flutter s/p maze currently in sinus hold coumadin 3. hypertension elevated today increase cozaar to 100mg daily can add amlodipine if remains elevated today
[2016-11-28 15:52] VITALS: BP 159/85; PULSE 62; TEMP 36.6; O2SAT 95
[2016-11-28] MEDS: WARFARIN SOD 5 MG TAB PO SCH (17:49)
--- NOTE | 2016-11-28 19:01 | Progress Note ---
Medicine Progress Note Date & Time of Visit: Nov 28, 2016 at 19:00. Subjective Patient is anxious to go home; he has many questions about the cath tomorrow and is getting frustrated with waiting. He denies any recurrence of chest pain and denies any SOB or palpitations. He has been ambulating in the halls without problems. His left foot erythema has resolved. No overnight events noted. Objective Last 8 Hrs Date Time Temp Pulse Resp B/P (MAP) Pulse Ox O2 Delivery O2 Flow Rate FiO2 11/28/16 16:00 Room Air 11/28/16 15:52 36.6 62 18 159/85 (109) 95 Room Air 11/28/16 12:00 Room Air 11/28/16 11:49 36.7 71 20 138/84 (102) 93 Room Air Physical Exam: GENERAL: Patient is in no acute distress. HEENT: No acute trauma, normocephalic, mucous membranes moist, no nasal congestion, no scleral icterus. NECK: No stridor, trachea is midline. LUNGS: Clear to auscultation bilaterally, no wheeze, no rhonchi, breath sounds equal. HEART: Without murmurs gallops or rubs, RR, S1 and S2 auscultated, occasional PVCs ABDOMEN: Soft, nontender, bowel sounds positive EXTREMITIES: No cyanosis or edema NEUROLOGIC: Oriented x 3, no acute motor or sensory deficits, no focal weakness. SKIN: No rash, no jaundice, no diaphoresis. Left foot cellulitis resolved, no erythema or tenderness present Laboratory Results: Last 24 Hours Test 11/27/16 20:44 11/28/16 06:37 11/28/16 06:41 11/28/16 08:30 Bedside Glucose 141 mg/dl 134 mg/dl Prothrombin Time 17.8 SECONDS Prothromb Time International Ratio 1.6 White Blood Count 9.67 K/uL Red Blood Count 4.21 M/uL Hemoglobin 13.0 g/dL Hematocrit 39.7 % Mean Corpuscular Volume 94.3 fL Mean Corpuscular Hemoglobin 30.9 pg Mean Corpuscular Hemoglobin Concent 32.7 g/dl RDW Standard Deviation 48.9 fL RDW Coefficient of Variation 14.2 % Platelet Count 234 K/uL Mean Platelet Volume 10.5 fL Sodium Level 138 mmol/L Potassium Level 3.9 mmol/L Chloride Level 106 mmol/L Carbon Dioxide Level 24 mmol/L Anion Gap 8.0 mmol/L Blood Urea Nitrogen 15 mg/dl Creatinine 0.90 mg/dl Est Creatinine Clear Calc Drug Dose 80.5 ml/min Estimated GFR () 92.5 Estimated GFR (Non- 79.8 BUN/Creatinine Ratio 16.7 Random Glucose 189 mg/dl Calcium Level 9.2 mg/dl Test 11/28/16 11:48 11/28/16 16:41 Bedside Glucose 142 mg/dl 155 mg/dl Assessment & Plan CHEST PAIN: -has significant hx of CAD, s/p stents, s/p CABG -cardiac enzymes trended up slightly -no recurrence of chest pain since admission; at home was relieved by 3 NTG -TTE: EF 50-55%, there is mild concentric left ventricular hypertrophy, bilateral atria moderately dilated, moderate to severe TR -continue ASA, b-mitchel, statin -Cardiology consulted, appreciate recs, patient will have a repeat cath tomorrow and is NPO after midnight PAF: -INR subtherapeutic, at 1.6 -rate controlled -continued on b-mitchel -coumadin + lovenox until INR is therapeutic Recent Cellulitis: -continued on Keflex day#4 -leukocytosis trending down but still present; unclear whether just related to cellulitis; blood cultures obtained, no growth thus far DM Type II: insulin dependent -HbA1c: 8.1% -Lantus + sliding scale continued -monitor BSGs and adjust dose accordingly HTN: -blood pressure on higher side -continued on Cozaar and b-mitchel Hyperlipidemia: -continue statin DVT prophylaxis: -Lovenox Current Inpatient Medications: Current Inpatient Medications Medications (Trade) Dose Ordered Sig/Hammad Route Start Time Stop Time Status Last Admin Dose Admin Enoxaparin Sodium (Lovenox Inj) 40 mg Q24H SC 11/26/16 09:00 12/26/16 08:59 11/28/16 09:13 40 MG Acetaminophen (Tylenol Tab) 650 mg Q4H PRN PO 11/25/16 20:45 12/25/16 20:44 11/28/16 04:24 650 MG Al Hydrox/Mg Hydrox/Simethicone (Maalox Max Susp) 15 ml Q4H PRN PO 11/25/16 20:45 12/25/16 20:44 Magnesium Hydroxide (Milk Of Magnesia Susp) 30 ml Q12H PRN PO 11/25/16 20:45 12/25/16 20:44 Ondansetron HCl (Zofran Inj) 4 mg Q6H PRN IV 11/25/16 20:45 12/25/16 20:44 Nitroglycerin (Nitrostat Tab) 0.4 mg UD PRN SL 11/25/16 20:45 12/25/16 20:44 Aspirin (Ecotrin Tab) 81 mg QAM PO 11/26/16 09:00 12/26/16 08:59 11/28/16 08:31 81 MG Polyethylene (Miralax Powder Packet) 17 gm DAILY PRN PO 11/25/16 20:45 12/25/16 20:44 Atorvastatin Calcium (Lipitor Tab) 80 mg DAILY PO 11/26/16 09:00 12/26/16 08:59 11/28/16 08:31 80 MG Cephalexin Monohydrate (Keflex Cap) 500 mg QID PO 11/25/16 22:30 12/05/16 22:29 11/28/16 17:50 500 MG Losartan Potassium (coZAAR TAB) 50 mg DAILY PO 11/26/16 09:00 12/26/16 08:59 11/28/16 08:31 50 MG Warfarin Sodium (Coumadin Tab) 5 mg DAILY@16 PO 11/26/16 16:00 12/26/16 15:59 11/28/16 17:49 5 MG Insulin Glargine (Lantus Solostar Pen) 12 units Q12 SC 11/25/16 22:30 12/25/16 22:29 11/28/16 08:33 12 UNITS Insulin Aspart (novoLOG ASPART) SLIDING SCALE If C... ACHS SC 11/25/16 22:30 12/25/16 22:29 11/28/16 17:52 3 UNITS Glucose (Glucose 40% Gel) 15-30 GRAMS 15 GRAMS... UD PRN PO 11/25/16 20:45 12/25/16 20:44 Glucose (Glucose Chew Tab) 4-8 Tablets 4 Tabl... UD PRN PO 11/25/16 20:45 12/25/16 20:44 Dextrose (Dextrose 50% 50ML Syringe) 25-50ML OF 50% DW IV FOR... UD PRN IV 11/25/16 20:45 12/25/16 20:44 Glucagon (Glucagon Inj) 1 mg UD PRN SQ 11/25/16 20:45 12/25/16 20:44 Miscellaneous (Iv Fluids Completed) 1 ea PRN PRN N/A 11/25/16 22:15 11/25/17 22:14 Metoprolol Succinate (Toprol Xl Tab) 50 mg QAM PO 11/27/16 09:00 12/26/16 08:59 11/28/16 08:31 50 MG Metoprolol Succinate (Toprol Xl Tab) 25 mg QPM PO 11/26/16 21:00 12/26/16 20:59 11/27/16 19:55 25 MG
[2016-11-28 19:37] VITALS: BP 166/86; PULSE 63; TEMP 36.8; O2SAT 94
[2016-11-28 23:13] VITALS: BP 159/87; PULSE 64; TEMP 36.5; O2SAT 95
[2016-11-29 03:38] VITALS: BP 149/82; PULSE 62; TEMP 36.5; O2SAT 96
[2016-11-29] MEDS: INSULIN ASPART 100 UNITS/ML 3 ML PEN SC SCH ×4 (07:00→21:00)
[2016-11-29 07:36] LABS: MEAN CELL VOLUME 95.4 fL (80-100); MEAN CORPUSCULAR HEMOGLOBIN 31.5 pg (25-34); MEAN CORPUSCULAR HGB CONC 33.1 g/dl (32-36); MEAN PLATELET VOLUME 10.8 fL (7.4-10.4); PLATELET COUNT 222 K/uL (130-400); RED BLOOD COUNT 4.09 M/uL (4.7-6.1); WHITE BLOOD COUNT 9.05 K/uL (4.8-10.8)
[2016-11-29 07:46] LABS: INR 1.5 (0.9-1.1); PROTHROMBIN TIME (PATIENT) 16.1 SECONDS (9.0-12.0)
[2016-11-29 08:03] LABS: BUN/CREATININE RATIO 14.1 (10-20); CREATININE 0.9 mg/dl (0.60-1.40); POTASSIUM 3.9 mmol/L (3.5-5.1)
[2016-11-29 08:18] VITALS: BP_SYST 172; BP_SYST 174; BP_DIAS 87; BP_DIAS 94; PULSE 64; TEMP 36.8; O2SAT 93
[2016-11-29] MEDS: ASPIRIN 81 MG ECTAB PO SCH (08:39)
[2016-11-29] MEDS: CEPHALEXIN MONOHYDRATE 500 MG CAP PO SCH ×4 (08:39→21:14)
[2016-11-29] MEDS: ATORVASTATIN 40 MG TAB PO SCH (08:40)
[2016-11-29] MEDS: METOPROLOL SUCC 25MG EXT REL TAB PO SCH ×2 (08:40→21:13)
[2016-11-29] MEDS: LOSARTAN POTASSIUM 50 MG TAB PO SCH (08:40)
[2016-11-29] MEDS: INSULIN GLARGINE SOLOSTAR 100 UNITS/ML 3 ML PEN SC SCH ×2 (08:43→22:09)
[2016-11-29] MEDS: ACETAMINOPHEN 325 MG TAB PO PRN (08:56)
--- NOTE | 2016-11-29 09:17 | Cardiology Follow-Up ---
Subjective General Date of Service: Nov 29, 2016. Pt evaluation today including: conversation w/ patient, physical exam, chart review, lab review, review of studies, conversation w/ financial services consultant, review of inpatient medication list History of Present Illness The patient is a 81 year old male seen in follow-up. No recurrent chest pain overnight. Patient admits to anxiety related to upcoming procedure. No sustained dysrhythmia on telemetry. Remains in sinus rhythm with intermittent ventricular pacing. INR 1.5 today. Patient voices frustration regarding his prolonged hospital stay. Allergies Coded Allergies: Penicillins (Verified Allergy, Intermediate, HIVES, 11/25/16) Clopidogrel (Verified Allergy, Mild, 11/25/16) Social History Smoking Status: Former Smoker Hx Tobacco Use In Past Year?: No Hx Alcohol Use - Type And Amou: Yes (couple beers/vodka per week) Hx Substance Use - Type And Am: No Problem List Medical Problems: (1) Cellulitis Status: Acute (2) Elevated troponin level Status: Acute (3) Foot pain Status: Acute (4) Left ankle pain Status: Acute (5) Substernal discomfort Status: Acute (6) Unstable angina Status: Acute Review of Systems Respiratory: No cough, No sputum, No wheezing, No shortness of breath, No dyspnea on exertion, No dyspnea at rest, No hemoptysis Cardiac: No chest pain, No orthopnea, No PND, No edema, No claudication, No palpitations Physical Exam Vital Signs Last Vital Signs Documentation Date Time Temp Pulse Resp B/P (MAP) Pulse Ox O2 Delivery O2 Flow Rate FiO2 11/29/16 08:18 36.8 64 20 174/87 (116) 93 172/94 (120) 11/29/16 04:00 Room Air Physical Exam Constitutional: General Apperance: well-nourished Level of Distress: NAD Head: normocephalic, atraumatic ENMT: normal ENT inspection Lungs: Auscultation: breath sounds normal, no wheezing, no rales/crackles, no rhonchi Cardiovascular: Heart Auscultation: RRR, normal S1, normal S2, I/ WSM Peripheral Pulses: Radial Pulse: normal on the right Femoral Pulse: normal on the right Abdomen: Bowel Sounds: normal Inspection & Palpation: soft, non-distended, no tenderness, guarding & rebound Musculoskeletal: normal, normal strength (5/5 throughout) Extremities: no cyanosis, no edema, no clubbing, no ulcers Neurologic: Cranial Nerves: grossly intact Assessment and Plan Assessment and Plan 1. 81-year-old patient admitted with chest discomfort and mildly elevated troponin. No new regional wall motion abnormalities on resting 2-D transthoracic echo. Lexiscan nuclear stress test performed 04/2016 demonstrated inferior scar with otis-infarct ischemia. He has been chest pain- free over the weekend. INR 1.5. History of complex coronary disease with BMS to the RCA and left circumflex with BMS in 2002 (allergy to Plavix noted causing rash). He subsequently underwent CABG with CLEARY to LAD and SVG to OM ini 2006. 2. 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 - Sinus rhythm on telemetry 3. Hypertension - blood pressure remains elevated. Cozaar recently increased to 100 mg daily. Plan/Recommendations: I had a long discussion with the patient regarding risk versus benefit of cardiac catheterization with coronary angiography and bypass graft angiography. I discussed his elevated INR. I recommend postponing procedure until tomorrow as the catheterization will be performed via a femoral arterial access approach. Patient reports a history of femoral bleeding complications associated with PCI in the past. Patient voices frustration regarding delaying procedure. I discussed possible transfer to [facility] for cardiac catheterization and further treatment. Patient prefers to remain at [facility] with plans for cardiac catheterization in the a.m. He will be made nothing by mouth except medications after midnight. Coumadin will be discontinued. Repeat PT/INR in the a.m. All questions were answered to his satisfaction. More than 30 minutes were spent at bedside explaining plan of care, and risks vs. benefit of procedure. Laboratory Results Last 24 Hours Test 11/28/16 11:48 11/28/16 16:41 11/28/16 20:42 11/29/16 06:56 Bedside Glucose 142 mg/dl 155 mg/dl 128 mg/dl 127 mg/dl Test 11/29/16 07:17 White Blood Count 9.05 K/uL Red Blood Count 4.09 M/uL Hemoglobin 12.9 g/dL Hematocrit 39.0 % Mean Corpuscular Volume 95.4 fL Mean Corpuscular Hemoglobin 31.5 pg Mean Corpuscular Hemoglobin Concent 33.1 g/dl RDW Standard Deviation 48.8 fL RDW Coefficient of Variation 14.1 % Platelet Count 222 K/uL Mean Platelet Volume 10.8 fL Prothrombin Time 16.1 SECONDS Prothromb Time International Ratio 1.5 Sodium Level 139 mmol/L Potassium Level 3.9 mmol/L Chloride Level 107 mmol/L Carbon Dioxide Level 25 mmol/L Anion Gap 7.0 mmol/L Blood Urea Nitrogen 13 mg/dl Creatinine 0.90 mg/dl Est Creatinine Clear Calc Drug Dose 80.2 ml/min Estimated GFR () 92.5 Estimated GFR (Non- 79.8 BUN/Creatinine Ratio 14.1 Random Glucose 133 mg/dl Calcium Level 9.0 mg/dl
[2016-11-29 11:27] VITALS: BP 156/84; PULSE 63; TEMP 36.5; O2SAT 94
[2016-11-29 16:08] VITALS: BP 167/84; PULSE 69; TEMP 36.5; O2SAT 93
[2016-11-29] MEDS ORDERED: PHYTONADIONE 5 MG TAB PO ONE (16:30)
[2016-11-29 18:10] LABS: URINE APPEARANCE CLEAR (CLEAR); URINE BILIRUBIN NEG (NEG); URINE COLOR YELLOW; URINE NITRITE NEG (NEG); URINE SPECIFIC GRAVITY 1.017 (1.000-1.030); UROBILINOGEN NEG (NEG)
[2016-11-29 18:16] LABS: MANUAL MICROSCOPIC REQUIRED? NO; REVIEW REQ? NO
--- NOTE | 2016-11-29 19:07 | Progress Note ---
Medicine Progress Note Date & Time of Visit: Nov 29, 2016 at 19:07. Subjective Patient is unhappy about delay in cardiac cath; he is also anxious to get out of the hospital. No reports of chest pain or SOB. No overnight events noted. Tolerating PO. Tolerating ambulation in halls without difficulty. Objective Last 8 Hrs Date Time Temp Pulse Resp B/P (MAP) Pulse Ox O2 Delivery O2 Flow Rate FiO2 11/29/16 16:08 36.5 69 20 167/84 (111) 93 Room Air 11/29/16 16:00 Room Air 11/29/16 12:00 Room Air 11/29/16 11:27 36.5 63 20 156/84 (108) 94 Room Air Physical Exam: GENERAL: Patient is in no acute distress. HEENT: No acute trauma, normocephalic, mucous membranes moist, no nasal congestion, no scleral icterus. NECK: No stridor, trachea is midline. LUNGS: Clear to auscultation bilaterally, no wheeze, no rhonchi, breath sounds equal. HEART: Without murmurs gallops or rubs, RR, S1 and S2 auscultated ABDOMEN: Soft, nontender, bowel sounds positive EXTREMITIES: No cyanosis or edema NEUROLOGIC: Oriented x 3, no acute motor or sensory deficits, no focal weakness. SKIN: No rash, no jaundice, no diaphoresis. Left foot cellulitis resolved, no erythema or tenderness present Laboratory Results: Last 24 Hours Test 11/28/16 20:42 11/29/16 06:56 11/29/16 07:17 11/29/16 11:11 Bedside Glucose 128 mg/dl 127 mg/dl 131 mg/dl White Blood Count 9.05 K/uL Red Blood Count 4.09 M/uL Hemoglobin 12.9 g/dL Hematocrit 39.0 % Mean Corpuscular Volume 95.4 fL Mean Corpuscular Hemoglobin 31.5 pg Mean Corpuscular Hemoglobin Concent 33.1 g/dl RDW Standard Deviation 48.8 fL RDW Coefficient of Variation 14.1 % Platelet Count 222 K/uL Mean Platelet Volume 10.8 fL Prothrombin Time 16.1 SECONDS Prothromb Time International Ratio 1.5 Sodium Level 139 mmol/L Potassium Level 3.9 mmol/L Chloride Level 107 mmol/L Carbon Dioxide Level 25 mmol/L Anion Gap 7.0 mmol/L Blood Urea Nitrogen 13 mg/dl Creatinine 0.90 mg/dl Est Creatinine Clear Calc Drug Dose 80.2 ml/min Estimated GFR () 92.5 Estimated GFR (Non- 79.8 BUN/Creatinine Ratio 14.1 Random Glucose 133 mg/dl Calcium Level 9.0 mg/dl Test 11/29/16 16:00 11/29/16 16:27 Urine Color YELLOW Urine Appearance CLEAR Urine pH 5.0 Urine Specific [place] 1.017 Urine Protein NEG Urine Glucose (UA) NEG Urine Ketones NEG Urine Occult Blood NEG Urine Nitrite NEG Urine Bilirubin NEG Urine Urobilinogen NEG Urine Leukocyte Esterase NEG Bedside Glucose 152 mg/dl Assessment & Plan CHEST PAIN: -has significant hx of CAD, s/p stents, s/p CABG -cardiac enzymes trended up slightly -no recurrence of chest pain since admission; at home was relieved by 3 NTG -TTE: EF 50-55%, there is mild concentric left ventricular hypertrophy, bilateral atria moderately dilated, moderate to severe TR -continue ASA, b-mitchel, statin -Cardiology consulted, appreciate recs, patient will have a cardiac cath tomorrow and is NPO after midnight PAF: -INR subtherapeutic, at 1.5 -rate controlled -continued on b-mitchel -coumadin + lovenox stopped Recent Cellulitis: -continued on Keflex day#5 -leukocytosis trending down but still present; unclear whether just related to cellulitis; blood cultures obtained, no growth thus far DM Type II: insulin dependent -HbA1c: 8.1% -Lantus + sliding scale continued -monitor BSGs and adjust dose accordingly HTN: -blood pressure on higher side -continued on Cozaar and b-mitchel Hyperlipidemia: -continue statin DVT prophylaxis: -Lovenox Current Inpatient Medications: Current Inpatient Medications Medications (Trade) Dose Ordered Sig/Hammad Route Start Time Stop Time Status Last Admin Dose Admin Acetaminophen (Tylenol Tab) 650 mg Q4H PRN PO 11/25/16 20:45 12/25/16 20:44 11/29/16 08:56 650 MG Al Hydrox/Mg Hydrox/Simethicone (Maalox Max Susp) 15 ml Q4H PRN PO 11/25/16 20:45 12/25/16 20:44 Magnesium Hydroxide (Milk Of Magnesia Susp) 30 ml Q12H PRN PO 11/25/16 20:45 8/5/17 20:44 Ondansetron HCl (Zofran Inj) 4 mg Q6H PRN IV 11/25/16 20:45 12/25/16 20:44 Nitroglycerin (Nitrostat Tab) 0.4 mg UD PRN SL 11/25/16 20:45 12/25/16 20:44 Aspirin (Ecotrin Tab) 81 mg QAM PO 11/26/16 09:00 12/26/16 08:59 11/29/16 08:39 81 MG Polyethylene (Miralax Powder Packet) 17 gm DAILY PRN PO 11/25/16 20:45 12/25/16 20:44 Atorvastatin Calcium (Lipitor Tab) 80 mg DAILY PO 11/26/16 09:00 12/26/16 08:59 11/29/16 08:40 80 MG Cephalexin Monohydrate (Keflex Cap) 500 mg QID PO 11/25/16 22:30 12/05/16 22:29 11/29/16 16:53 500 MG Losartan Potassium (coZAAR TAB) 50 mg DAILY PO 11/26/16 09:00 12/26/16 08:59 11/29/16 08:40 50 MG Insulin Glargine (Lantus Solostar Pen) 12 units Q12 SC 11/25/16 22:30 12/25/16 22:29 11/29/16 08:43 12 UNITS Insulin Aspart (novoLOG ASPART) SLIDING SCALE If C... ACHS SC 11/25/16 22:30 12/25/16 22:29 11/29/16 16:53 3 UNITS Glucose (Glucose 40% Gel) 15-30 GRAMS 15 GRAMS... UD PRN PO 11/25/16 20:45 12/25/16 20:44 Glucose (Glucose Chew Tab) 4-8 Tablets 4 Tabl... UD PRN PO 11/25/16 20:45 12/25/16 20:44 Dextrose (Dextrose 50% 50ML Syringe) 25-50ML OF 50% DW IV FOR... UD PRN IV 11/25/16 20:45 12/25/16 20:44 Glucagon (Glucagon Inj) 1 mg UD PRN SQ 11/25/16 20:45 12/25/16 20:44 Miscellaneous (Iv Fluids Completed) 1 ea PRN PRN N/A 11/25/16 22:15 11/25/17 22:14 Metoprolol Succinate (Toprol Xl Tab) 50 mg QAM PO 11/27/16 09:00 12/26/16 08:59 11/29/16 08:40 50 MG Metoprolol Succinate (Toprol Xl Tab) 25 mg QPM PO 11/26/16 21:00 12/26/16 20:59 11/28/16 19:56 25 MG
[2016-11-29 19:53] VITALS: BP 175/96; PULSE 65; TEMP 36.6; O2SAT 95
[2016-11-30] VITALS (20 sets, daily range): BP systolic 118–184; BP diastolic 60–99; PULSE 20–80; TEMP 36.3–36.9; O2SAT 92–97
[2016-11-30] MEDS: INSULIN ASPART 100 UNITS/ML 3 ML PEN SC SCH ×4 (07:00→21:25)
--- NOTE | 2016-11-30 07:24 | Clinical Documentation Query ---
VALERY Alanis : CLINICAL DOCUMENTATION QUERY Patient is an 81 year old male admitted with chest pain. Noted significant past medical history of CAD, s/p intracoronary stenting and CABG surgery. Cardiac enzymes trended upwards slightly. Patient had relief of unelicited pain with SL nitroglycerin. Seen in consultation by cardiology with pending cardiac catheterization today (11/30). As appropriate, consider clarification as suggested below as "chest pain" is a symptom and is not synonymous with the clinical diagnosis of unstable angina. In your clinical opinion is this patient being managed for: ( x) Unstable angina ( ) Other explanation of clinical findings (Please Explain) ( ) Unable to determine (Please Define) ( ) Need to Discuss ( ) Not Agree The medical record reflects the following clinical findings, treatment, and risk factors. Clinical Indicators: As above Treatment: Telemetry, serial labs, cardiac enzymes, echocardiogram, cardiology consultation, cardiac catheterization Risk Factors: Age, known CAD, DM, hypertension Please clarify and document your clinical opinion in the progress notes and discharge summary. Terms such as "probable", "suspected", "likely", "questionable", "possible", or "still to be ruled out" are acceptable. IF IN AGREEMENT, YOU MUST DOCUMENT ABOVE DIAGNOSTIC STATEMENT IN DAILY PROGRESS NOTES AND DISCHARGE SUMMARY. This document is not part of the patient's record. Thank You, Richard Romero, ERNESTINA [phone]
--- NOTE | 2016-11-30 07:25 | Clinical Documentation Query ---
CARMEL Robles : CLINICAL DOCUMENTATION QUERY Patient is an 81 year old male admitted with chest pain. Noted significant past medical history of CAD, s/p intracoronary stenting and CABG surgery. Cardiac enzymes trended upwards slightly. Patient had relief of unelicited pain with SL nitroglycerin. Seen in consultation by cardiology with pending cardiac catheterization today (11/30). As appropriate, consider clarification as suggested below as "chest pain" is a symptom and is not synonymous with the clinical diagnosis of unstable angina. In your clinical opinion is this patient being managed for: ( ) Unstable angina ( x ) Other explanation of clinical findings (Please Explain) * Elevated troponin represents ACS / NSTEMI ( ) Unable to determine (Please Define) ( ) Need to Discuss ( ) Not Agree The medical record reflects the following clinical findings, treatment, and risk factors. Clinical Indicators: As above Treatment: Telemetry, serial labs, cardiac enzymes, echocardiogram, cardiology consultation, cardiac catheterization Risk Factors: Age, known CAD, DM, hypertension Please clarify and document your clinical opinion in the progress notes and discharge summary. Terms such as "probable", "suspected", "likely", "questionable", "possible", or "still to be ruled out" are acceptable. IF IN AGREEMENT, YOU MUST DOCUMENT ABOVE DIAGNOSTIC STATEMENT IN DAILY PROGRESS NOTES AND DISCHARGE SUMMARY. This document is not part of the patient's record. Thank You, Richard Romero RN [phone]
[2016-11-30 07:34] LABS: INR 1.4 (0.9-1.1); PROTHROMBIN TIME (PATIENT) 14.9 SECONDS (9.0-12.0)
[2016-11-30] MEDS: CEPHALEXIN MONOHYDRATE 500 MG CAP PO SCH ×4 (07:34→21:23)
[2016-11-30] MEDS: METOPROLOL SUCC 25MG EXT REL TAB PO SCH ×2 (07:35→21:23)
[2016-11-30] MEDS: ASPIRIN 81 MG ECTAB PO SCH (07:36)
[2016-11-30] MEDS: ATORVASTATIN 40 MG TAB PO SCH (07:36)
[2016-11-30] MEDS: LOSARTAN POTASSIUM 50 MG TAB PO SCH (07:36)
[2016-11-30] MEDS: INSULIN GLARGINE SOLOSTAR 100 UNITS/ML 3 ML PEN SC SCH ×2 (07:38→21:25)
[2016-11-30 07:59] LABS: BUN/CREATININE RATIO 15.5 (10-20); CALCIUM 9.2 mg/dl (8.5-10.1); CREATININE 0.85 mg/dl (0.60-1.40); POTASSIUM 3.9 mmol/L (3.5-5.1)
[2016-11-30] MEDS ORDERED: MIDAZOLAM HCL 1 MG/ML 2ML VIAL ONE ×3 (08:09→10:40)
[2016-11-30] MEDS ORDERED: FENTANYL CITRATE INJ 50 MCG/1 ML 2 ML VIAL ONE (08:09)
[2016-11-30] MEDS ORDERED: NiCARDipine HCL INJ 2.5 MG/ML 10 ML AMP ONE (09:13)
[2016-11-30] MEDS ORDERED: HEPARIN SOD (PORCINE) 1000 UNIT/ML 10 ML VIAL ONE ×2 (09:13→09:34)
[2016-11-30] MEDS ORDERED: NITROGLYCERIN/D5W 100MCG/ML 20ML SYR ONE (09:14)
[2016-11-30] MEDS ORDERED: LABETALOL HCL IV 5 MG/ML 20ML IV ONE (09:15)
--- NOTE | 2016-11-30 09:31 | Procedure Note ---
Pre-Mod Sedation Assessment General Date of Moderate Sedation: Nov 30, 2016. Vital Signs: Vital Signs Past 12 Hours Date Time Temp Pulse Resp B/P (MAP) Pulse Ox O2 Delivery O2 Flow Rate FiO2 11/30/16 07:44 36.7 67 18 174/96 92 Room Air 11/30/16 07:33 36.7 67 18 174/96 (122) 92 Room Air 11/30/16 07:04 36.6 57 20 156/82 (106) 94 Room Air 11/30/16 04:00 Room Air 11/30/16 03:06 36.4 68 18 158/90 (112) 92 Room Air 11/30/16 00:01 36.3 52 17 145/85 (105) 96 Room Air 11/30/16 00:00 Room Air Review Cardiovascular: regular rate, rhythm, no edema, + systolic murmur Abdomen: normal bowel sounds, non tender, soft Lungs: chest non-tender, lungs clear Pre-Sedation Airway Assessment Oral Cavity: WNL Short Thick Neck: No Hx of Sleep Apnea: No Smoking Status: Former Smoker Mallampati Classification: Class III ASA Classification: Class IV Procedure Planning Contraindications-for Mod Sed: None Yes Notes The planned sedation has been discussed with the patient and consent obtained. I have identified the patient, determined the appropriateness of sedation and have assessed the patient immediately prior to the procedure. All medicine(s) and interventions are by my order.
--- NOTE | 2016-11-30 09:32 | Procedure Note ---
Post-Mod Sedation Assessment General Date of Moderate Sedation Nov 30, 2016. Vital Signs: Vital Signs Past 12 Hours Date Time Temp Pulse Resp B/P (MAP) Pulse Ox O2 Delivery O2 Flow Rate FiO2 11/30/16 07:44 36.7 67 18 174/96 92 Room Air 11/30/16 07:33 36.7 67 18 174/96 (122) 92 Room Air 11/30/16 07:04 36.6 57 20 156/82 (106) 94 Room Air 11/30/16 04:00 Room Air 11/30/16 03:06 36.4 68 18 158/90 (112) 92 Room Air 11/30/16 00:01 36.3 52 17 145/85 (105) 96 Room Air 11/30/16 00:00 Room Air Review - Discharge Criteria Vital Signs Stable: Yes Alert/Oriented/Conversant: Yes Returned to Baseline Mental St: No (patient sedated for PCI) Nausea Absent/Minimal: Yes Pain/Discomfort/Absent/Minimal: Yes Normal/Baseline Respirations: Yes Active Bleeding?: No Pt Received D/C Instructions: N/A Prescriptions Given: None Specific Proced. D/C Criteria Distal Pulses Present (Cardiac: Yes Groin site assessed-Card Cath: Yes Voided Prior To Discharge: N/A Discharged Patients Adult Escort/Transportation: N/A
[2016-11-30] MEDS ORDERED: EPTIFIBATIDE 2 MG/ML 10 ML VIAL IV ONE (09:34)
[2016-11-30] MEDS ORDERED: EPTIFIBATIDE 0.75 MG/ML 75MG VIAL IV ONE (09:34)
--- NOTE | 2016-11-30 09:36 | Cardiac Catheterization ---
Procedure Note Procedure Date Nov 30, 2016. Pre-Procedure Diagnosis Non STEMI AUC Score 8 Post-Procedure Diagnosis Severe CAD Procedure(s) Performed Coronary Angiography, Bypass Graft Angiography Teacher Advisor Dr. Mason Duck Farmer(s) Glunt LASER/ELECTRO OPTICS TECHNICIAN, Sedation ERNESTINA Harden Estimated Blood Loss 8cc Medication(s) Fentanyl, Labetalol, Versed, Lidocaine 1% Summary of Findings Severe algaaciq vessel CAD with totally occluded proximal LAD, severe proximal OM , Severe proximal RPDA. Patent CLEARY to LAD. Patent SVG to OM. Hemodynamics Rest Ao: 158/69/103 Final Ao: 180/81/122 LV: N/A Recommendations PCI without planned CABG Specimens None Radiation Exposure (mGy) 2949 Contrast (mls) 160 Anesthesia Moderate sedation. Start 08, End 919 Procedural Complication(s) None Disposition Patient remained in manager laboratory for PCI to RPDA ACC Data Cardiac Status Clinical evaluation leading to the procedure CAD Presntation: Non STEMI Anginal Classification: CCS IV Heart Failure: No Cardiogenic Shock w/in 24Hrs: No Cardiac Arrest w/in 24Hrs: No Imaging studies past 6 months: Yes Stress studies past 6 months: Yes Standard Exercise Stress Test: No Stress Echocardiogram: No Stress Testing w/SPECT MPI: Yes - Positive, Risk/Extent of Ischemia (High) Cardiac CTA: No Coronary Anatomy Dominant: Right Left Main (% Stenosis): Distal (40%) LAD (% Stenosis): Ostial (100%), Mid (no significant stenosis distal to CLEARY anastomosis 10%), Distal (Apical LAD segment not well visualized) D1 (% Stenosis): Ostial (Mild luminal irregularities 10%) D2 (% Stenosis): Ostial (mild luninal irregularities 10%) Circumflex (% Stenosis): Ostial (10%), Proximal (20%), Mid (patent stent with 30% ISR, stent extends into OM2 and covers mid Lcx with associated 80% stenosis) , Distal (small caliber and diffusely diseased 20%) OM1 (% Stenosis): Normal OM2 (% Stenosis): Ostial (10%), Proximal (80%), Mid (patent SVG anastomosis), Distal (10%) L PL1 (% Stenosis): Ostial (Small 1mm vessel with diffuse luminal irregularities 20%) RCA (% Stenosis): Ostial (0%), Proximal (20%), Mid (20%), Distal (patent stent with 20-30% ISR) R PDA (% Stenosis): Ostial (20%), Proximal (10%), Mid (80-90%), Distal (10%) R PL1 (% Stenosis): Ostial (large vessel with mild luminal irregularities 10%) AM (% Stenosis): Normal Ramus (% Stenosis): Ostial (small vessel with mild luminal irregularites 10%) Grafts - LAD (%): Ostial (Patent CLEARY to LAD) Grafts - Circumflex (%): Ostial (patent SVG to OM2) Diagnostic Status: Urgent Closure Device Percutaneous Entry Location: Femoral Recommendations: PCI without planned CABG Intraprocedure Events Significant Dissection: No Perforation: No
[2016-11-30] MEDS ORDERED: LIDOCAINE/EPINEPHRINE 1% 20 ML VIAL ONE (11:11)
[2016-11-30] MEDS ORDERED: TICAGRELOR 90 MG TAB PO ONE (11:14)
[2016-11-30] MEDS ORDERED: SODIUM CHLORIDE 0.9% 1000ML 250 ML IV PRN ×2 (11:36→14:20)
[2016-11-30] MEDS ORDERED: ONDANSETRON INJ 2 MG/ML 2 ML VIAL IV PRN (11:45)
[2016-11-30] MEDS ORDERED: ACETAMINOPHEN 325 MG TAB PO PRN ×2 (11:45→14:30)
[2016-11-30] MEDS ORDERED: AMLODIPINE BESYLATE 5 MG TAB PO ONE (13:30)
[2016-11-30] MEDS ORDERED: NURSING VERBAL MED ORDER ONE ×2 (14:00)
[2016-11-30] MEDS ORDERED: SODIUM CHLORIDE 0.9% 1000ML 1,000 ML IV SCH (14:15)
[2016-11-30] MEDS ORDERED: ATROPINE SULFATE 0.1 MG/ML 5ML SYR IV PRN (14:30)
[2016-11-30] MEDS: SODIUM CHLORIDE 0.9% 1000ML 1,000 ML IV SCH (14:32)
[2016-11-30] MEDS: ACETAMINOPHEN 325 MG TAB PO PRN (15:24)
--- NOTE | 2016-11-30 15:39 | Cardiac Catheterization ---
Procedure Note Procedure Date Nov 30, 2016. Pre-Procedure Diagnosis Non STEMI AUC Score 8 Post-Procedure Diagnosis Successful PCI Procedure(s) Performed Coronary Angiography, PTCA Stamp Classifier Dr. Littlejohn Room Maid(s) KAEL Chicas Estimated Blood Loss 45 ml Medication(s) Fentanyl, Heparin, Integrilin, Nicardipine (Intracoronary), Versed, Lidocaine 1% Patient was given an oral loading dose of ticagrelor 180 milligrams post PCI. Summary of Findings Catheterization site: 6 Ni[place]an sheath right femoral artery. Interventional equipment: Guide catheters- 6 Niuean JR4 0.0, 3DRC, RBU 3.5, and ALR 1-2 guide catheters. Guidewires: [place], Whisper, and Mailman guidewires. Balloon dilatation catheters: Admit to by 8 millimeter Mini Trek balloon, Peña 2.5 x 8 millimeter Trek balloon. A [employer] Sprinter 1.5 X 12 millimeter balloon dilatation catheter was used to help exchange guidewires. No dilatations were performed with this balloon. . Balloon angioplasty was performed to the mid PDA with 2 x 8 millimeter and 2.5 x 8 millimeter Trek balloons. Angioplasty was first performed with the Mini Trek balloon with one inflation to 8 atmospheres for 15 seconds. Despite multiple guidewires and guide catheters an Integrity bare metal stent of 2.25 x 12 millimeter dimension could not be passed across the mid PDA lesion. Three balloon inflations were then performed to the mid PDA with the Trek 2.5 x 8 millimeter balloon to maximum pressure of 8 atmospheres and maximum duration of 30 seconds. Intravenous heparin and Integrilin were administered prior to PTCA. Therapeutic activated clotting times were documented. Hemostasis: 6 Niuean StarClose vascular closure device. Complications: None. Findings: Guiding angiography revealed a 95-99 percent mid focal mid PDA stenosis. LIZETT 2 flow in the PDA. Following balloon angioplasty residual stenosis was 30-50 percent. LIZETT 3 flow in the PDA. No evidence of dissection , thrombus, perforation, or distal embolic event. Plan: A stent could not be advanced across the mid PDA stenosis. The next step would be use of a GuideLiner catheter. However, the patient had received excessive amount of radiation and contrast dye with this procedure. This procedure was very technically difficult. It was felt best to terminate the procedure after the successful balloon angioplasty results were documented. He will be treated with dual antiplatelet therapy for at least 3 months. Aspirin therapy indefinitely. If in the future he has anginal symptoms refractory to medical therapy and it is felt that the ischemia is secondary to the PDA stenosis , a repeat attempt at coronary intervention and stent deployment could be performed. Multiple guide catheters were used with this procedure. The best guide catheter backup was obtained with a 6 Niuean ARL 1-2 guide catheter. He will receive intravenous fluid hydration overnight. Close monitoring of his renal function. He was also informed of his excessive radiation dose. He was instructed about the signs to monitor himself in regards to the radiation exposure. Hemodynamics Rest Ao: 158/69/103 mm Hg Final Ao: 154/69/106 mm Hg LV: NA Recommendations Medical therapy and/or Counseling, PCI without planned CABG Specimens None Radiation Exposure (mGy) 9604 total for both diagnostic and interventional procedure Contrast (mls) 440 total for both diagnostic and interventional procedure Fluids (cc crystalloids) 200 total for both diagnostic and interventional procedure Drains none Anesthesia Intravenous Versed and fentanyl. Lidocaine 1 percent for local anesthesia. Procedural Complication(s) None Disposition PCU ACC Data Cardiac Status Clinical evaluation leading to the procedure CAD Presntation: Non STEMI Anginal Classification: CCS IV Heart Failure: No Cardiogenic Shock w/in 24Hrs: No Cardiac Arrest w/in 24Hrs: No Imaging studies past 6 months: Yes Stress studies past 6 months: Yes Standard Exercise Stress Test: No Stress Echocardiogram: No Stress Testing w/SPECT MPI: Yes - Positive, Risk/Extent of Ischemia (High) Cardiac CTA: No Coronary Anatomy Dominant: Right (Please see Dr. Cortes Mason's cardiac catheterization report for diagnostic catheterization findings.) Diagnostic Physician's Name: Cortes Mason, DO Status: Elective Closure Device Percutaneous Entry Location: Femoral Closure Device: StarClose Recommendations: Medical therapy and/or Counseling, PCI without planned CABG PCI Indication: PCI for high risk Non-STEMI Lesion Segment Name: Mid right PDA Culprit Artery: Yes Stenosis Prior to Rx (%): 99 Chronic Total Occlusion: No IVUS: No FFR: No Pre-Procedure LIZETT Flow: 2 Previously Treated Lesion: No Lesion Complexity: Non-High/Non-C Lesion Length (mm): 4 Thrombus Present: No Bifurcation Lesion: No Guidewire Across Lesion: Yes Guidewire: Stenosis Post-Procedure (%): 30-50 Post-Procedure LIZETT Flow: 3 Device(s) Deployed: No Intraprocedure Events Significant Dissection: No Perforation: No
--- NOTE | 2016-11-30 15:48 | Procedure Note ---
Post-Mod Sedation Assessment General Date of Moderate Sedation Nov 30, 2016. Vital Signs: Vital Signs Past 12 Hours Date Time Temp Pulse Resp B/P (MAP) Pulse Ox O2 Delivery O2 Flow Rate FiO2 11/30/16 15:44 36.5 61 16 156/80 (105) 94 Room Air 11/30/16 14:15 65 18 145/80 (101) 96 Room Air 11/30/16 13:45 61 20 158/85 (109) 96 Room Air 11/30/16 13:15 61 18 154/87 (109) 97 Room Air 11/30/16 13:15 36.7 61 20 154/87 (109) 97 Room Air 11/30/16 12:45 36.5 62 20 167/78 (107) 96 Room Air 11/30/16 12:30 80 18 152/84 (106) 96 Room Air 11/30/16 12:15 60 152/83 (106) 95 Room Air 20 11/30/16 12:00 96 Room Air 11/30/16 12:00 60 20 153/82 (105) 94 Room Air 11/30/16 11:45 36.6 67 18 184/99 (127) 93 Room Air 11/30/16 11:36 66 18 140/73 (95) 95 Room Air 11/30/16 11:21 64 18 156/85 (108) 97 Mask 6 11/30/16 08:00 92 Room Air 11/30/16 07:44 36.7 67 18 174/96 92 Room Air 11/30/16 07:33 36.7 67 18 174/96 (122) 92 Room Air 11/30/16 07:04 36.6 57 20 156/82 (106) 94 Room Air 11/30/16 04:00 Room Air Review - Discharge Criteria Vital Signs Stable: Yes Alert/Oriented/Conversant: Yes Returned to Baseline Mental St: Yes (patient sedated for PCI) Nausea Absent/Minimal: Yes Pain/Discomfort/Absent/Minimal: Yes Normal/Baseline Respirations: Yes Active Bleeding?: No Pt Received D/C Instructions: N/A Prescriptions Given: None Specific Proced. D/C Criteria Distal Pulses Present (Cardiac: Yes Groin site assessed-Card Cath: Yes Voided Prior To Discharge: N/A Discharged Patients Adult Escort/Transportation: N/A
--- NOTE | 2016-11-30 16:03 | Progress Note ---
Internal Med Progress Note Date of Service: Nov 30, 2016. Provider Documentation: SUBJECTIVE: denies of any chest pain or SOB returned form cardiac cath no pain or discomfort on rt groin cath site no bleeding noted OBJECTIVE: Vital Signs-as noted below Exam: General-no sign of distress Eyes-sclera non icteric ENT-NAd Neck-no JVD Lungs-CTA Heart-regular Abdomen-[] Extremities-[] Neuro-[] Lab data as noted below. ASSESSMENT & PLAN: UNSTABLE ANGINA /NSTEMI : -has significant hx of CAD, s/p stents, s/p CABG -cardiac enzymes elevated -no recurrence of chest pain since admission; at home was relieved by 3 NTG -TTE: EF 50-55%, there is mild concentric left ventricular hypertrophy, bilateral atria moderately dilated, moderate to severe TR s/p Cardiac cath today Balloon angioplasty was performed to the mid PDA with 2 x 8 millimeter and 2.5 x 8 millimeter trek balloons. Despite multiple guidewires and guide catheters an Integrity bare metal stent of 2.25 x 12 millimeter dimension could not be passed across the mid PDA lesion. pt started on Brilinta needs to be continued at least 3 months Aspirin for life long PAF: -cont beta mitchel Coumadin has been kept on hold for Cardiac cath given pt is started in Brilinta and Aspirin Coumadin may need to be on hold for bleeding risk pt is very reluctant to stop /hold Coumadin will d/w Cardiology in AM DM Type II: insulin dependent -HbA1c: 8.1% -Lantus + sliding scale continued -monitor BSGs and adjust dose accordingly HTN: -continued on Cozaar and b-mitchel Hyperlipidemia: -continue statin DISPOSITION to home when medically stable Vital Signs: Date Time Temp Pulse Resp B/P (MAP) Pulse Ox O2 Delivery O2 Flow Rate FiO2 11/30/16 16:30 36.5 62 18 133/60 (84) 95 Room Air 11/30/16 16:00 92 Room Air 11/30/16 15:44 36.5 61 16 156/80 (105) 94 Room Air 11/30/16 15:30 36.4 57 18 149/79 (102) 96 Room Air 11/30/16 14:15 65 18 145/80 (101) 96 Room Air 11/30/16 13:45 61 20 158/85 (109) 96 Room Air 11/30/16 13:15 61 18 154/87 (109) 97 Room Air 11/30/16 13:15 36.7 61 20 154/87 (109) 97 Room Air 11/30/16 12:45 36.5 62 20 167/78 (107) 96 Room Air 11/30/16 12:30 80 18 152/84 (106) 96 Room Air 11/30/16 12:15 60 152/83 (106) 95 Room Air 20 11/30/16 12:00 96 Room Air 11/30/16 12:00 60 20 153/82 (105) 94 Room Air 11/30/16 11:45 36.6 67 18 184/99 (127) 93 Room Air 11/30/16 11:36 66 18 140/73 (95) 95 Room Air 11/30/16 11:21 64 18 156/85 (108) 97 Mask 6 11/30/16 08:00 92 Room Air 11/30/16 07:44 36.7 67 18 174/96 92 Room Air 11/30/16 07:33 36.7 67 18 174/96 (122) 92 Room Air 11/30/16 07:04 36.6 57 20 156/82 (106) 94 Room Air 11/30/16 04:00 Room Air 11/30/16 03:06 36.4 68 18 158/90 (112) 92 Room Air 11/30/16 00:01 36.3 52 17 145/85 (105) 96 Room Air 11/30/16 00:00 Room Air 11/29/16 20:00 Room Air 11/29/16 19:53 36.6 65 20 175/96 (122) 95 Room Air Lab Results: Results Past 24 Hours Test 11/29/16 20:25 11/30/16 06:43 11/30/16 07:03 11/30/16 09:31 Range/Units Bedside Glucose 165 154 70-99 mg/dl Prothrombin Time 14.9 9.0-12.0 SECONDS Prothromb Time International Ratio 1.4 0.9-1.1 Sodium Level 139 136-145 mmol/L Potassium Level 3.9 3.5-5.1 mmol/L Chloride Level 108 98-107 mmol/L Carbon Dioxide Level 25 21-32 mmol/L Anion Gap 6.0 3-11 mmol/L Blood Urea Nitrogen 13 7-18 mg/dl Creatinine 0.85 0.60-1.40 mg/dl Est Creatinine Clear Calc Drug Dose 84.0 ml/min Estimated GFR () 94.7 Estimated GFR (Non- 81.7 BUN/Creatinine Ratio 15.5 10-20 Random Glucose 163 70-99 mg/dl Calcium Level 9.2 8.5-10.1 mg/dl Kaolin Activated Coagulation Time 219 94-140 SECONDS Test 11/30/16 09:38 11/30/16 10:09 11/30/16 12:13 11/30/16 16:32 Range/Units Kaolin Activated Coagulation Time 252 340 94-140 SECONDS Bedside Glucose 143 130 70-99 mg/dl
[2016-11-30] MEDS: TICAGRELOR 90 MG TAB PO SCH (21:23)
[2016-12-01] VITALS: BP 143/74; PULSE 61; TEMP 36.6; O2SAT 94
[2016-12-01] MEDS: SODIUM CHLORIDE 0.9% 1000ML 1,000 ML IV SCH (02:26)
[2016-12-01 04:00] VITALS: BP 150/74; PULSE 69; TEMP 36.7; O2SAT 96
[2016-12-01 07:32] VITALS: BP 145/75; PULSE 68; TEMP 36.7; O2SAT 92
[2016-12-01] MEDS: ATORVASTATIN 40 MG TAB PO SCH (07:47)
[2016-12-01] MEDS: ASPIRIN 81 MG ECTAB PO SCH (07:47)
[2016-12-01] MEDS: METOPROLOL SUCC 25MG EXT REL TAB PO SCH (07:48)
[2016-12-01] MEDS: LOSARTAN POTASSIUM 50 MG TAB PO SCH (07:48)
[2016-12-01 07:49] LABS: HEMATOCRIT 38.8 % (42-52); MEAN CELL VOLUME 94.9 fL (80-100); MEAN CORPUSCULAR HEMOGLOBIN 31.3 pg (25-34); MEAN PLATELET VOLUME 10.9 fL (7.4-10.4); PLATELET COUNT 213 K/uL (130-400); RED BLOOD COUNT 4.09 M/uL (4.7-6.1); WHITE BLOOD COUNT 9.51 K/uL (4.8-10.8)
[2016-12-01] MEDS: CEPHALEXIN MONOHYDRATE 500 MG CAP PO SCH (07:49)
[2016-12-01] MEDS: TICAGRELOR 90 MG TAB PO SCH (07:49)
[2016-12-01] MEDS: INSULIN ASPART 100 UNITS/ML 3 ML PEN SC SCH (07:54)
[2016-12-01] MEDS: INSULIN GLARGINE SOLOSTAR 100 UNITS/ML 3 ML PEN SC SCH (07:54)
[2016-12-01 07:56] LABS: BUN/CREATININE RATIO 12.1 (10-20); CALCIUM 8.6 mg/dl (8.5-10.1); CREATININE 0.89 mg/dl (0.60-1.40); POTASSIUM 3.8 mmol/L (3.5-5.1)
[2016-12-01] MEDS ORDERED: AMLODIPINE BESYLATE 5 MG TAB PO SCH (09:00)
--- NOTE | 2016-12-01 10:12 | Cardiology Follow-Up ---
Subjective General Date of Service: Dec 01, 2016. Pt evaluation today including: conversation w/ patient, conversation w/ family , physical exam, chart review, lab review, review of studies, review of inpatient medication list History of Present Illness The patient is a 81 year old male seen in follow-up. Cardiac catheterization performed yesterday with POBA of the [facility]. Interventional cardiology unable to pass bare-metal stent. Patient tolerated procedure without complication. No recurrent chest discomfort overnight. Occasional PVCs and couplets noted on telemetry. Coumadin has been on hold since Tuesday. Patient given Brilinta due to Plavix allergy. Low-dose amlodipine added yesterday. Patient offers no complaints at this time. Son is present at the bedside. Allergies Coded Allergies: Penicillins (Verified Allergy, Intermediate, HIVES, 11/25/16) Clopidogrel (Verified Allergy, Mild, 11/25/16) Social History Smoking Status: Former Smoker Hx Tobacco Use In Past Year?: No Hx Alcohol Use - Type And Amou: Yes (couple beers/vodka per week) Hx Substance Use - Type And Am: No Problem List Medical Problems: (1) Cellulitis Status: Acute (2) Elevated troponin level Status: Acute (3) Foot pain Status: Acute (4) Left ankle pain Status: Acute (5) Substernal discomfort Status: Acute (6) Unstable angina Status: Acute Review of Systems Respiratory: No cough, No sputum, No wheezing, No shortness of breath, No dyspnea on exertion, No dyspnea at rest, No hemoptysis Cardiac: No chest pain, No orthopnea, No PND, No edema, No claudication, No palpitations Physical Exam Vital Signs Last Vital Signs Documentation Date Time Temp Pulse Resp B/P (MAP) Pulse Ox O2 Delivery O2 Flow Rate FiO2 12/01/16 08:00 Room Air 12/01/16 07:32 36.7 68 18 145/75 (98) 92 12/01/16 00:00 Physical Exam Constitutional: General Apperance: well-nourished Level of Distress: NAD Head: normocephalic, atraumatic ENMT: normal ENT inspection Lungs: Auscultation: breath sounds normal, no wheezing, no rales/crackles, no rhonchi Cardiovascular: Heart Auscultation: RRR, normal S1, normal S2, I/ WSM Peripheral Pulses: Radial Pulse: normal on the right Femoral Pulse: normal on the right Abdomen: Bowel Sounds: normal Inspection & Palpation: soft, non-distended, no tenderness, guarding & rebound Musculoskeletal: normal, normal strength (5/5 throughout) Extremities: no cyanosis, no edema, no clubbing, no ulcers, pertinent finding ( right groin ecchymosis, no hematoma) Neurologic: Cranial Nerves: grossly intact Assessment and Plan Assessment and Plan 1. NSTEMI s/p cardiac catheterization demonstrating patent bypass grafts, totally occluded LAD, severe left circumflex stenosis proximal to bypass anastomosis, and severe mid right posterior descending artery stenosis. POBA of RPDA performed with residual 50% stenosis. Interventional cardiology unable to pass bare-metal stent. Patient pain free overnight. No evidence of recurrent atrial fibrillation on monitor. 2. 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 - Sinus rhythm on telemetry - Coumadin on hold 3. Hypertension - blood pressure improved with addition of low-dose amlodipine. Plan/Recommendations: I long discussion with the patient and his son regarding the results of his cardiac catheterization and intervention. Previously treated with warfarin due to paroxysmal atrial fibrillation. Review of recent pacemaker interrogations demonstrates minimal recurrent dysrhythmias over the past 6 months. There is been no recurrent atrial fibrillation on monitor during current hospitalization. Recommend hold Coumadin for 4 weeks. Patient will be treated with dual antiplatelet therapy, aspirin and Brilinta, (documented Plavix rash ) for at least one month. Low-dose amlodipine will also be continued in the outpatient setting.other cardiovascular medications will be continued as previously ordered. All questions were answered to the satisfaction of the patient and his son. Post catheterization activity and driving restrictions were discussed as listed below. I will arrange for close cardiology follow-up in 2 weeks. Post catheterization/intervention activity restrictions: * Do not drive or operate any motorized equipment for the next three days. * Limit stair usage (2 or 3 trips a day only) for the next three days. * Do not lift anything heavier than 10 pounds for the next three days. * Do not engage in vigorous exercise or any sports for the next five days. * You may shower the day after your procedure, but do not immerse the area for three days. Cleanse the site gently with soap and water. SPECIAL CARE INSTRUCTIONS: * You may replace the pressure dressing or band-aid the morning after the procedure. * After your procedure, it is normal to have a small bruise or small lump at the site. Examine your site daily for any change in the bruise or lump, redness, swelling, drainage or numbness. Notify your doctor if any change. BLEEDING: * If there is a small amount of bleeding at the site, lie down and apply firm pressure with a clean cloth for ten minutes. When the bleeding stops, lie quietly keeping the procedure limb straight for six hours. Notify your doctor as soon as possible. * If the bleeding does not stop after ten minutes or if there is a large amount of bleeding or spurting, call 911 immediately. Continue to lie down and hold firm pressure until help arrives. SKIN IRRITATION: * You may experience some redness and/or swelling in the area where radiation was administered. If any skin irritation occurs, please contact your family physician. Laboratory Results Last 24 Hours Test 11/30/16 10:09 11/30/16 12:13 11/30/16 16:32 11/30/16 20:11 Kaolin Activated Coagulation Time 340 SECONDS Bedside Glucose 143 mg/dl 130 mg/dl 241 mg/dl Test 12/01/16 06:55 12/01/16 07:04 Bedside Glucose 158 mg/dl White Blood Count 9.51 K/uL Red Blood Count 4.09 M/uL Hemoglobin 12.8 g/dL Hematocrit 38.8 % Mean Corpuscular Volume 94.9 fL Mean Corpuscular Hemoglobin 31.3 pg Mean Corpuscular Hemoglobin Concent 33.0 g/dl RDW Standard Deviation 49.5 fL RDW Coefficient of Variation 14.4 % Platelet Count 213 K/uL Mean Platelet Volume 10.9 fL Sodium Level 141 mmol/L Potassium Level 3.8 mmol/L Chloride Level 109 mmol/L Carbon Dioxide Level 23 mmol/L Anion Gap 9.0 mmol/L Blood Urea Nitrogen 11 mg/dl Creatinine 0.89 mg/dl Est Creatinine Clear Calc Drug Dose 81.7 ml/min Estimated GFR () 92.9 Estimated GFR (Non- 80.2 BUN/Creatinine Ratio 12.1 Random Glucose 145 mg/dl Calcium Level 8.6 mg/dl
[2016-12-01] MEDS ORDERED: BRL90 PO (11:18)
[2016-12-01] MEDS ORDERED: ASPEC81 PO (11:18)
[2016-12-01] MEDS ORDERED: NRV5 PO (11:18)
[2016-12-01] MEDS ORDERED: TPRSR25 PO ×2 (11:18)
[2016-12-01 11:29] VITALS: BP 152/79; PULSE 69; TEMP 36.4; O2SAT 96
[2016-12-01] MEDS ORDERED: LPT/40 PO (11:31)
--- NOTE | 2016-12-01 11:33 | Discharge Instructions ---
Discharge Instructions Date of Service Dec 01, 2016. Admission Reason for Admission: Chest Pain- Cardiac Hx Discharge Discharge Diagnosis / Problem: NSTEMI /CORONARY ARTERY DISEASE Discharge Goals Goal(s): Decrease discomfort, Diagnostic testing, Therapeutic intervention Activity Recommendations Activity Limitations: per Instructions/Follow-up section Driving or Machine Use: PLEASE SEE INSTRUCTION Post catheterization/intervention activity restrictions: * Do not drive or operate any motorized equipment for the next three days. * Limit stair usage (2 or 3 trips a day only) for the next three days. * Do not lift anything heavier than 10 pounds for the next three days. * Do not engage in vigorous exercise or any sports for the next five days. * You may shower the day after your procedure, but do not immerse the area for three days. Cleanse the site gently with soap and water. SPECIAL CARE INSTRUCTIONS: * You may replace the pressure dressing or band-aid the morning after the procedure. * After your procedure, it is normal to have a small bruise or small lump at the site. Examine your site daily for any change in the bruise or lump, redness, swelling, drainage or numbness. Notify your doctor if any change. BLEEDING: * If there is a small amount of bleeding at the site, lie down and apply firm pressure with a clean cloth for ten minutes. When the bleeding stops, lie quietly keeping the procedure limb straight for six hours. Notify your doctor as soon as possible. * If the bleeding does not stop after ten minutes or if there is a large amount of bleeding or spurting, call 911 immediately. Continue to lie down and hold firm pressure until help arrives. SKIN IRRITATION: * You may experience some redness and/or swelling in the area where radiation was administered. If any skin irritation occurs, please contact your family physician. . Instructions / Follow-Up Instructions / Follow-Up HOSPITAL FOLLOW UP : 12/08/2016 @ 11:[address] Melo Carlos MD [facility] CARDIOLOGY FOLLOW UP IN 2 WEEKS, OFFICE WILL CALL WITH APPOINTMENT NEW MEDICATIONS : BRILINTA 90 MG TWICE DAILY ASPIRIN 81 MG NORVASC 2.5 MG DAILY ATORVASTATIN /LIPITOR DOSE REDUCED TO 40 MG DAILY ( WAS ON 80 MG DAILY ) DO NOT TAKE METFORMIN FOR NEXT 2 DAYS ( EXPOSURE TO CONTRAST DYE WITH CARDICA CATH ) TOPROL XL DOSE ADJUSTED -TAKE 50 MG IN AM /25 MG PM DO NOT TAKE COUMADIN -NEED TO DISCUSS WITH CARDIOLOGY IF IT NEEDS TO BE RESUMED Home Care: * Take your medications exactly as directed. Don't skip doses. * Remember that recovery after a heart attack takes time. Plan to rest for at lease 4-8 weeks while you recover. Then return to normal activity when your doctor says it's okay. * Ask your doctor about joining a heart rehabilitation program. * Tell your doctor if you are feeling depressed. Feelings of sadness are common after a heart attack, but it is important that you speak to someone if you are feeling overwhelmed by these feelings. * If you are having chest pain, call 911 for an ambulance. Do NOT drive yourself to the hospital. * Ask your family members to learn CPR. * Learn to take your own blood pressure and pulse. Keep a record of your results. Ask your doctor when you should seek emergency medical attention. He or she will tell you which blood pressure reading is dangerous. Lifestyle Changes: * Maintain a healthy weight. Get help to lose any extra pounds. * Cut back on salt. * Limit canned, dried, packaged, and fast foods. * Don't add salt to your food. * Season foods with herbs instead of salt when you cook. * Break the smoking habit. Enroll in a stop-smoking program to improve your chances of success. * Limit fatty foods. * Check your lipid levels regularly. (Your doctor can show you how to do this.) * Build up your activity according to your doctor's recommendation. * Ask your doctor when it's okay to resume sexual activity. * Tell your doctor about any erectile dysfunction (ED) medication you are taking. Some ED medications are not safe if you take certain heart medications. * Try to manage stress. Follow Up: It is important for you to keep your follow up appointments with your medical provider. Current Hospital Diet Patient's current hospital diet: AHA Diet (Heart Healthy), Diabetes Type 2 Diet Discharge Diet Recommended Diet: AHA Diet (Heart Healthy), Diabetes Type 2 Diet Pending Studies Studies pending at discharge: no Laboratory Results Hemoglobin A1c Test 11/26/16 08:04 Range/Units Estimated Average Glucose 186 mg/dl Hemoglobin A1c 8.1 H 4.5-5.6 % Lipid Panel Test 11/26/16 00:45 Range/Units Triglycerides Level 82 0-150 mg/dl Cholesterol Level 142 0-200 mg/dl HDL Cholesterol 68 mg/dl Cholesterol/HDL Ratio 2.1 LDL Cholesterol, Calculated 58 mg/dl Medical Emergencies . Who to Call and When: Medical Emergencies: If at any time you feel your situation is an emergency, please call 911 immediately. Call 911 immediately or go to your nearest Emergency Room if you experience any of the following: Warning Signs and Symptoms of a Heart Attack * Chest pain that is not relieved by medication * Shortness of breath . Non-Emergent Contact Non-Emergency issues call your: Primary Care Provider . . "Provider Documentation" section prepared by Juli Mtz. . AMI Core Measures Reason no ASA as I/P: Treatment provided - N/A Reason no ASA at D/C: Treatment provided - N/A Reason no statin as I/P: Treatment provided - N/A Reason no statin at D/C: Treatment provided - N/A VTE Core Measure Inpt VTE Proph given/why not?: Unfractionated heparin SQ
--- NOTE | 2016-12-01 11:46 | Progress Note ---
Internal Med Progress Note Date of Service: Dec 01, 2016. Provider Documentation: SUBJECTIVE: no complain of chest pain or SOB rt groin cath side has mild ecchymosis no active bleeding , swelling or tenderness stable to be discharged home today pt evaluated by Cardiology earlier OBJECTIVE: Vital Signs-as noted below Exam: General-no sign of distress Eyes-sclera non icteric ENT-NAd Neck-no JVD Lungs-CTA Heart-regular Abdomen-soft, non tender Extremities-rt groin cath site -inspected -mild ecchymosis, no bleeding , no tenderness or swelling Neuro-no focal deficit Lab data as noted below. ASSESSMENT & PLAN: UNSTABLE ANGINA /NSTEMI /CAD : -has significant hx of CAD, s/p stents, s/p CABG -Presented with symptom of unstable angina , chest pain ,resolved with SL nitro cardiac enzymes elevated -no recurrence of chest pain since admission; -TTE: EF 50-55%, there is mild concentric left ventricular hypertrophy, bilateral atria moderately dilated, moderate to severe TR s/p cardiac catheterization demonstrating patent bypass grafts, totally occluded LAD, severe left circumflex stenosis proximal to bypass anastomosis, and severe mid right posterior descending artery stenosis. POBA of RPDA performed with residual 50% stenosis. Interventional cardiology unable to pass bare-metal stent. pt started on Brilinta 90 mg BID ( hx of Plavix intolerance -rash ) statin dose reduced to 40 mg daily for possible drug interaction with Brilinta will be continued with Aspirin for life long -need dual antiplatelet tx for at least 1 month Toprol XL dose adjusted due to increased risk with dual platelet tx -Coumadin is asked to be kept on hold for at least 1 month will be re evaluated in Cardiology office stable to be discharged home today HX OF PAROXYSMAL AFIB/FLUTTER : history of maze procedure and left atrial appendage occlusion. -cont beta mitchel -Toprol XL dose adjusted 50 mg AM /25 mg PM given pt is started in Brilinta and Aspirin Coumadin on hold for bleeding risk -pt is in agreement appreciate input form cardiology DM Type II: insulin dependent -HbA1c: 8.1% -Lantus + sliding scale continued -monitor BSGs and adjust dose accordingly HTN: -continued on Cozaar and b-mitchel added low dose Norvasc Hyperlipidemia: -was on Lipitor 80 mg HS dose reduced to 40 mg HS due to drug interaction with Brilinta DISPOSITION stable to be discharged home today Vital Signs: Date Time Temp Pulse Resp B/P (MAP) Pulse Ox O2 Delivery O2 Flow Rate FiO2 12/01/16 08:00 Room Air 12/01/16 07:32 36.7 68 18 145/75 (98) 92 Room Air 12/01/16 04:00 36.7 69 150/74 (99) 96 Nasal Cannula 12/01/16 04:00 96 Room Air 12/01/16 00:00 36.6 61 143/74 (97) 94 Room Air 12/01/16 00:00 94 Room Air 11/30/16 20:00 92 Room Air 11/30/16 19:55 36.9 55 16 118/71 (87) 93 Room Air 11/30/16 16:30 36.5 62 18 133/60 (84) 95 Room Air 11/30/16 16:00 92 Room Air 11/30/16 15:44 36.5 61 16 156/80 (105) 94 Room Air 11/30/16 15:30 36.4 57 18 149/79 (102) 96 Room Air 11/30/16 14:15 65 18 145/80 (101) 96 Room Air 11/30/16 13:45 61 20 158/85 (109) 96 Room Air 11/30/16 13:15 61 18 154/87 (109) 97 Room Air 11/30/16 13:15 36.7 61 20 154/87 (109) 97 Room Air 11/30/16 12:45 36.5 62 20 167/78 (107) 96 Room Air 11/30/16 12:30 80 18 152/84 (106) 96 Room Air 11/30/16 12:15 60 152/83 (106) 95 Room Air 20 11/30/16 12:00 96 Room Air 11/30/16 12:00 60 20 153/82 (105) 94 Room Air Lab Results: Results Past 24 Hours Test 11/30/16 12:13 11/30/16 16:32 11/30/16 20:11 12/01/16 06:55 Range/Units Bedside Glucose 143 130 241 158 70-99 mg/dl Test 12/01/16 07:04 Range/Units White Blood Count 9.51 4.8-10.8 K/uL Red Blood Count 4.09 4.7-6.1 M/uL Hemoglobin 12.8 14.0-18.0 g/dL Hematocrit 38.8 42-52 % Mean Corpuscular Volume 94.9 80-100 fL Mean Corpuscular Hemoglobin 31.3 25-34 pg Mean Corpuscular Hemoglobin Concent 33.0 32-36 g/dl RDW Standard Deviation 49.5 36.4-46.3 fL RDW Coefficient of Variation 14.4 11.5-14.5 % Platelet Count 213 130-400 K/uL Mean Platelet Volume 10.9 7.4-10.4 fL Sodium Level 141 136-145 mmol/L Potassium Level 3.8 3.5-5.1 mmol/L Chloride Level 109 98-107 mmol/L Carbon Dioxide Level 23 21-32 mmol/L Anion Gap 9.0 3-11 mmol/L Blood Urea Nitrogen 11 7-18 mg/dl Creatinine 0.89 0.60-1.40 mg/dl Est Creatinine Clear Calc Drug Dose 81.7 ml/min Estimated GFR () 92.9 Estimated GFR (Non- 80.2 BUN/Creatinine Ratio 12.1 10-20 Random Glucose 145 70-99 mg/dl Calcium Level 8.6 8.5-10.1 mg/dl
--- NOTE | 2016-12-01 11:59 | Discharge Summary ---
Discharge Summary Date of Service Dec 01, 2016. Discharge Summary Admission Date: Nov 29, 2016 at 17:58 Discharge Date: Dec 01, 2016 Discharge Disposition: Home Principal Diagnosis: NSTEMI /CORONARY ARTERY DISEASE Procedures: CARDIAC CATH : 11/30/16 s/p cardiac catheterization demonstrating patent bypass grafts, totally occluded LAD, severe left circumflex stenosis proximal to bypass anastomosis, and severe mid right posterior descending artery stenosis. POBA of RPDA performed with residual 50% stenosis. Interventional cardiology unable to pass bare-metal stent. [facility] BUCK INTERVENTIONAL CARDIOLOGY DR PEREZ Medication Reconciliation New Medications: Atorvastatin (Lipitor) 40 Mg Tab 40 MG PO DAILY for 30 Days, #30 TAB Amlodipine Besylate (Amlodipine Besylate) 5 Mg Tab 2.5 MG PO QAM for 30 Days, #15 TAB Aspirin (Aspirin EC Low Dose) 81 Mg Ectab 81 MG PO QAM for 30 Days, #30 TAB Metoprolol Succinate (Metoprolol Succinate ER) 25 Mg Tabcr 50 MG PO QAM for 30 Days, #60 TABS Metoprolol Succinate (Metoprolol Succinate ER) 25 Mg Tabcr 25 MG PO QPM for 30 Days, #30 TABS Ticagrelor (Brilinta) 90 Mg Tab 90 MG PO BID for 30 Days, #60 TAB 2 Refills Continued Medications: Cholecalciferol (Vitamin D 1000 Unit) 1,000 Unit Cap 1000 INTER.UNIT PO DAILY, CAP Furosemide (Lasix) 20 Mg Tab 20 MG PO DAILY Insulin Glargine (Lantus Solostar) 100 Unit/Ml Inj 32 SC QAM, PEN Losartan Potassium (Cozaar) 50 Mg Tab 50 MG PO DAILY, TAB Metformin Hcl (Glucophage) 1,000 Mg Tab 1000 MG PO BID, TAB Nitroglycerin (Nitrostat) 0.4 Mg Sub 0.4 MG UT UD PRN for Chest Pain, BTL PLACE ONE TABLET UNDER THE TONGUE EVERY 5 MINUTES FOR UP TO 3 DOSES OVER 15 MINUTES IF NEEDED FOR CHEST PAIN. Oxycodone Immediate Rel Tab (Roxicodone Ir) 5 Mg Tab 1-2 TAB PO Q4H PRN for Severe Pain, #24 TAB Discontinued Medications: Atorvastatin (Lipitor) 80 Mg Tab 80 MG PO DAILY, TAB Cephalexin Monohydrate (Keflex) 500 Mg Cap 500 MG PO QID, #40 CAP Metoprolol Succinate (Toprol Xl) 25 Mg Tab 25 MG PO DAILY, #30 TAB 3 Refills Warfarin Sodium (Coumadin) 5 Mg Tab 5 MG PO 4XWK, TAB TAKE 5 MG EVERY TUESDAY,TUESDAY,TUESDAY AND TUESDAY OR OTHERWISE DIRECTED TO TAKE BY ANTICOAGULATION CLINIC/MD. Warfarin Sodium (Coumadin) 5 Mg Tab 2.5 MG PO 3XWK, TAB TAKE 2.5 MG EVERY TUESDAY,TUESDAY AND TUESDAY OR OTHERWISE DIRECTED TO TAKE BY ANTICOAGULATION CLINIC/MD. Admission Information HPI (per Admitting provider): This is an 81 year old male with an extensive cardiac history including CAD s/p stenting in 2002, s/p CABG in 2006, paroxysmal atrial fibrillation on long-term Coumadin, insulin dependent DM2, HTN, HLD presented with chest pain -- describes the pain as a substernal, crushing pain that began a few hours prior to arrival - he took nitro tab which helped. The pain recurred and he took another two nitro tabs which helped with the pain, but he presented to the ER because of concern about the chest pain. States the pain has not recurred since presenting here. No shortness of breath/palpitations; no nausea/vomiting/ diarrhea, no fevers/chills. Physical Exam (per Admitting): General Appearance: no apparent distress Head: normocephalic, atraumatic Eyes: normal inspection ENT: hearing grossly normal Neck: supple Respiratory/Chest: chest non-tender, lungs clear, normal breath sounds, no respiratory distress, no accessory muscle use Cardiovascular: no edema, no murmur, + irregularly irregular Abdomen/GI: normal bowel sounds, non tender, soft Extremities/Musculoskelatal: + pertinent finding Neurologic/Psych: no motor/sensory deficits, alert, normal mood/affect Skin: normal color Lymphatic: no adenopathy Hospital Course UNSTABLE ANGINA /NSTEMI /CAD : -has significant hx of CAD, s/p stents, s/p CABG -Presented with symptom of unstable angina , chest pain ,resolved with SL nitro cardiac enzymes elevated -no recurrence of chest pain since admission; -TTE: EF 50-55%, there is mild concentric left ventricular hypertrophy, bilateral atria moderately dilated, moderate to severe TR s/p cardiac catheterization demonstrating patent bypass grafts, totally occluded LAD, severe left circumflex stenosis proximal to bypass anastomosis, and severe mid right posterior descending artery stenosis. POBA of RPDA performed with residual 50% stenosis. Interventional cardiology unable to pass bare-metal stent. pt started on Brilinta 90 mg BID ( hx of Plavix intolerance -rash ) statin dose reduced to 40 mg daily for possible drug interaction with Brilinta will be continued with Aspirin for life long -need dual antiplatelet tx for at least 1 month Toprol XL dose adjusted due to increased risk with dual platelet tx -Coumadin is asked to be kept on hold for at least 1 month will be re evaluated in Cardiology office stable to be discharged home today HX OF PAROXYSMAL AFIB/FLUTTER : history of maze procedure and left atrial appendage occlusion. -cont beta mitchel -Toprol XL dose adjusted 50 mg AM /25 mg PM given pt is started in Brilinta and Aspirin Coumadin on hold for bleeding risk -pt is in agreement appreciate input form cardiology DM Type II: insulin dependent -HbA1c: 8.1% -Lantus + sliding scale continued -monitor BSGs and adjust dose accordingly HTN: -continued on Cozaar and b-mitchel added low dose Norvasc Hyperlipidemia: -was on Lipitor 80 mg HS dose reduced to 40 mg HS due to drug interaction with Brilinta DISPOSITION stable to be discharged home today Total time spent on discharge = 40 min This includes examination of the patient, discharge planning, medication reconciliation, and communication with other providers. Discharge Instructions DI: Myocardial v4 Discharge Instructions Date of Service Dec 01, 2016. Admission Reason for Admission: Chest Pain- Cardiac Hx Discharge Discharge Diagnosis / Problem: NSTEMI /CORONARY ARTERY DISEASE Discharge Goals Goal(s): Decrease discomfort, Diagnostic testing, Therapeutic intervention Activity Recommendations Activity Limitations: per Instructions/Follow-up section Driving or Machine Use: PLEASE SEE INSTRUCTION Post catheterization/intervention activity restrictions: * Do not drive or operate any motorized equipment for the next three days. * Limit stair usage (2 or 3 trips a day only) for the next three days. * Do not lift anything heavier than 10 pounds for the next three days. * Do not engage in vigorous exercise or any sports for the next five days. * You may shower the day after your procedure, but do not immerse the area for three days. Cleanse the site gently with soap and water. SPECIAL CARE INSTRUCTIONS: * You may replace the pressure dressing or band-aid the morning after the procedure. * After your procedure, it is normal to have a small bruise or small lump at the site. Examine your site daily for any change in the bruise or lump, redness, swelling, drainage or numbness. Notify your doctor if any change. BLEEDING: * If there is a small amount of bleeding at the site, lie down and apply firm pressure with a clean cloth for ten minutes. When the bleeding stops, lie quietly keeping the procedure limb straight for six hours. Notify your doctor as soon as possible. * If the bleeding does not stop after ten minutes or if there is a large amount of bleeding or spurting, call 911 immediately. Continue to lie down and hold firm pressure until help arrives. SKIN IRRITATION: * You may experience some redness and/or swelling in the area where radiation was administered. If any skin irritation occurs, please contact your family physician. . Instructions / Follow-Up Instructions / Follow-Up HOSPITAL FOLLOW UP : 12/08/2016 @ 11:[address] Melo Carlos MD [facility] CARDIOLOGY FOLLOW UP IN 2 WEEKS, OFFICE WILL CALL WITH APPOINTMENT NEW MEDICATIONS : BRILINTA 90 MG TWICE DAILY ASPIRIN 81 MG NORVASC 2.5 MG DAILY ATORVASTATIN /LIPITOR DOSE REDUCED TO 40 MG DAILY ( WAS ON 80 MG DAILY ) DO NOT TAKE METFORMIN FOR NEXT 2 DAYS ( EXPOSURE TO CONTRAST DYE WITH CARDICA CATH ) TOPROL XL DOSE ADJUSTED -TAKE 50 MG IN AM /25 MG PM DO NOT TAKE COUMADIN -NEED TO DISCUSS WITH CARDIOLOGY IF IT NEEDS TO BE RESUMED Home Care: * Take your medications exactly as directed. Don't skip doses. * Remember that recovery after a heart attack takes time. Plan to rest for at lease 4-8 weeks while you recover. Then return to normal activity when your doctor says it's okay. * Ask your doctor about joining a heart rehabilitation program. * Tell your doctor if you are feeling depressed. Feelings of sadness are common after a heart attack, but it is important that you speak to someone if you are feeling overwhelmed by these feelings. * If you are having chest pain, call 911 for an ambulance. Do NOT drive yourself to the hospital. * Ask your family members to learn CPR. * Learn to take your own blood pressure and pulse. Keep a record of your results. Ask your doctor when you should seek emergency medical attention. He or she will tell you which blood pressure reading is dangerous. Lifestyle Changes: * Maintain a healthy weight. Get help to lose any extra pounds. * Cut back on salt. * Limit canned, dried, packaged, and fast foods. * Don't add salt to your food. * Season foods with herbs instead of salt when you cook. * Break the smoking habit. Enroll in a stop-smoking program to improve your chances of success. * Limit fatty foods. * Check your lipid levels regularly. (Your doctor can show you how to do this.) * Build up your activity according to your doctor's recommendation. * Ask your doctor when it's okay to resume sexual activity. * Tell your doctor about any erectile dysfunction (ED) medication you are taking. Some ED medications are not safe if you take certain heart medications. * Try to manage stress. Follow Up: It is important for you to keep your follow up appointments with your medical provider. Current Hospital Diet Patient's current hospital diet: AHA Diet (Heart Healthy), Diabetes Type 2 Diet Discharge Diet Recommended Diet: AHA Diet (Heart Healthy), Diabetes Type 2 Diet Pending Studies Studies pending at discharge: no Laboratory Results Hemoglobin A1c Test 11/26/16 08:04 Range/Units Estimated Average Glucose 186 mg/dl Hemoglobin A1c 8.1 H 4.5-5.6 % Lipid Panel Test 11/26/16 00:45 Range/Units Triglycerides Level 82 0-150 mg/dl Cholesterol Level 142 0-200 mg/dl HDL Cholesterol 68 mg/dl Cholesterol/HDL Ratio 2.1 LDL Cholesterol, Calculated 58 mg/dl Medical Emergencies . Who to Call and When: Medical Emergencies: If at any time you feel your situation is an emergency, please call 911 immediately. Call 911 immediately or go to your nearest Emergency Room if you experience any of the following: Warning Signs and Symptoms of a Heart Attack * Chest pain that is not relieved by medication * Shortness of breath . Non-Emergent Contact Non-Emergency issues call your: Primary Care Provider . . "Provider Documentation" section prepared by Juli Mtz. . AMI Core Measures Reason no ASA as I/P: Treatment provided - N/A Reason no ASA at D/C: Treatment provided - N/A Reason no statin as I/P: Treatment provided - N/A Reason no statin at D/C: Treatment provided - N/A VTE Core Measure Inpt VTE Proph given/why not?: Unfractionated heparin SQ Additional Copies To Cortes Mason, Melo Kilgore M.D.
[2016-12-01] MEDS ORDERED: TICAGRELOR 90 MG TAB PO SCH (12:00)
[2016-12-01 12:21] VITALS: BP 152/79; PULSE 69; TEMP 36.4; O2SAT 96
[2016-12-31] MEDS ORDERED: PRT40 PO (11:52)
[2016-12-31] MEDS ORDERED: TPRSR50 PO (11:52)
[2016-12-31] MEDS ORDERED: NRV5 PO (11:52)
[2016-12-31] MEDS ORDERED: IMDSR60 PO (11:52)
[2017-01-12] MEDS ORDERED: TICA1TAB PO (15:04)
[2017-01-12] MEDS ORDERED: CLIN300C2 PO (15:04)
[2017-01-12] MEDS ORDERED: METO25TA3 PO (15:04)
[2017-01-12] MEDS ORDERED: PSYL58.636 (15:04)
== END 2016-12-01 13:20 | disposition home or self-care (01) | DRG 249 ==
LOC: C.EDB 16:43 → C.2T 20:50 → ENRESERV 21:11 → C.2T 11-29 15:46 → OBSVTOIN 11-29 17:58
PROVIDERS: ADMIT Family Medicine; ATTEND Hospitalist
PROC: B211YZZ Fluoroscopy of Multiple Coronary Arteries using Other Contrast (ICD-10-PCS; 2016-11-30)
PROC: 02703DZ Dilation of Coronary Artery, One Artery with Intraluminal Device, Percutaneous Approach (ICD-10-PCS; principal; 2016-11-30 08:00)
PROC: B211YZZ Fluoroscopy of Multiple Coronary Arteries using Other Contrast (ICD-10-PCS; principal; 2016-11-30 08:00)
DX: I21.4 Non-ST elevation (NSTEMI) myocardial infarction (principal); L03.90 Cellulitis, unspecified; I48.92 Unspecified atrial flutter; I25.10 Atherosclerotic heart disease of native coronary artery without angina pectoris; E11.9 Type 2 diabetes mellitus without complications; I10 Essential (primary) hypertension; E78.5 Hyperlipidemia, unspecified; I48.91 Unspecified atrial fibrillation; I44.7 Left bundle-branch block, unspecified; Z95.5 Presence of coronary angioplasty implant and graft; Z95.1 Presence of aortocoronary bypass graft; Z82.49 Family history of ischemic heart disease and other diseases of the circulatory system; Z83.3 Family history of diabetes mellitus; R79.1 Abnormal coagulation profile; Z79.01 Long term (current) use of anticoagulants; Z87.891 Personal history of nicotine dependence; I48.0 Paroxysmal atrial fibrillation; Z79.4 Long term (current) use of insulin; I20.0 Unstable angina

== ENCOUNTER 2016-12-30 01:25 | Observation (INO) | payer OTHER ==
[2016-12-30] VITALS (11 sets, daily range): BP systolic 142–168; BP diastolic 68–99; PULSE 65–81; TEMP 36.4–36.8; O2SAT 93–96; Ht 180.3 cm; Wt 104.8 kg
[~2016-12-30] VITALS: Ht 180.3 cm; Wt 104.8 kg
[~2016-12-30 01:25] MED LIST changes: +ASPEC81 PO; -ATOR-26 PO; +BRL90 PO; -CEPH500C PO; +LPT/40 PO; -METO1TAB31 PO; +NRV5 PO; +TPRSR25 PO; -WARF5TAB90 PO
[2016-12-30] MEDS ORDERED: NITROGLYCERIN 0.4 MG SL PER TAB CHARGE ONE (01:41)
[2016-12-30] MEDS ORDERED: AMLO2.5T PO (01:42)
[2016-12-30] MEDS ORDERED: ASPI81TA28 PO (01:43)
[2016-12-30] MEDS ORDERED: ATOR-24 PO (01:44)
[2016-12-30] MEDS ORDERED: METO25TA3 PO ×2 (01:45→01:46)
[2016-12-30] MEDS ORDERED: ASPIRIN 81 MG CHEW PO STA (01:45)
[2016-12-30 01:56] LABS: BASO % 0.7 %; BASO ABS # 0.06 K/uL (0-0.2); COMPLETE YES; EOS % 4.3 %; HEMATOCRIT 41.8 % (42-52); IG% 0.4 %; LYMPH % 43.1 %; LYMPH ABS # 3.95 K/uL (1.2-3.4); MEAN CELL VOLUME 95.2 fL (80-100); MEAN CORPUSCULAR HEMOGLOBIN 32.3 pg (25-34); MEAN PLATELET VOLUME 10.5 fL (7.4-10.4); MONO % 12.1 %; NEUT % 39.4 %; PLATELET COUNT 189 K/uL (130-400); RED BLOOD COUNT 4.39 M/uL (4.7-6.1); WHITE BLOOD COUNT 9.17 K/uL (4.8-10.8)
[2016-12-30 02:07] LABS: PROTHROMBIN TIME (PATIENT) 10.6 SECONDS (9.0-12.0)
[2016-12-30] MEDS ORDERED: WARF5TAB90 PO (02:16)
[2016-12-30 02:36] LABS: ALKALINE PHOSPHATASE 74 U/L (45-117); ALT/SGPT 25 U/L (12-78); AST/SGOT 21 U/L (15-37); BLOOD UREA NITROGEN 11 mg/dl (7-18); BUN/CREATININE RATIO 11.8 (10-20); CALCIUM 8.8 mg/dl (8.5-10.1); CARBON DIOXIDE 23 mmol/L (21-32); CHLORIDE 110 mmol/L (98-107); CKMB/CK RATIO 1.9 (0-3.0); CREATININE 0.93 mg/dl (0.60-1.40); GLUCOSE 246 mg/dl (70-99); MAGNESIUM 1.8 mg/dl (1.8-2.4); POTASSIUM 4.2 mmol/L (3.5-5.1); SODIUM 141 mmol/L (136-145)
[2016-12-30] MEDS ORDERED: HydrALAZINE HCL 20 MG/ML VIAL IV. STA (05:35)
--- NOTE | 2016-12-30 06:09 | EMERGENCY ROOM VISIT NOTE ---
History Report prepared by Carmen: Melisa Burton Under the Supervision of: Dr. Patience Pina M.D. First contact with patient: 01:39 Chief Complaint: CHEST PAIN Stated Complaint: CHEST PAIN AND SOB Nursing Triage Summary: c/o mid chest pain with nausea and diaphoresis that started 1 hour ago. pt took 81mg asa prior to arrival. pt reports pain has now resolved. History of Present Illness The patient is an 81 year old male who presents to the Emergency Room with complaints of an episode of chest pain about 1 hour ago. The pain radiates to the left and right of his chest, but not to his back, jaw, or arm. With the chest pain he had SOB, nausea, diaphoresis, and dizziness with changing position. He took a baby aspirin at the time which seemed to help. He has nitro , but did not take it. All of his symptoms have resolved since then. He notes that he has been somewhat SOB since he was discharged from the hospital 1 month ago. He denies any leg swelling, fever, or abdominal pain. He has a history of CAD, CABG, atrial fibrillation, diabetes, and hypertension. He has a pacemaker in place. He had half his pancreas removed over concerns of cancer which caused his diabetes. He denies any history of blood clots. Source of History: patient Onset: 1 hour ago Position: chest Quality: other (pain) Timing: other (episodic) Modifying Factors (Relieving): other (aspirin) Associated Symptoms: + diaphoresis, + SOB, + nausea Note: Pt reports dizziness. Review of Systems See HPI for pertinent positives & negatives. A total of 10 systems reviewed and were otherwise negative. Past Medical & Surgical Medical Problems: (1) ACS (acute coronary syndrome) (2) CAD (coronary artery disease) (3) Chest pain (4) Chronic anticoagulation (5) DM type 2 (diabetes mellitus, type 2) (6) Dyslipidemia (7) Gout (8) History of cerebral hemorrhage (9) HTN (hypertension) (10) Pacemaker (11) Pancreatic cancer (12) Paroxysmal atrial fibrillation (13) Sinus node dysfunction (14) SSS (sick sinus syndrome) Surgical Problems: (1) H/O arthroscopic knee surgery (2) H/O colonoscopy (3) H/O esophagogastroduodenoscopy (4) H/O inguinal hernia repair (5) History of pancreatectomy (6) S/P CABG x 1 (7) S/P coronary artery stent placement (8) S/P splenectomy (9) S/P tonsillectomy and adenoidectomy Family History Diabetes mellitus FH: heart disease FH: hypertension Social History Smoking Status: Never Smoker Drug Use: none Marital Status: Housing Status: lives alone Occupation Status: retired Current/Historical Medications Scheduled Amlodipine (Norvasc), 2.5 MG PO QAM Aspirin (Aspirin Ec), 81 MG PO QAM Atorvastatin (Lipitor), 40 MG PO DAILY Cholecalciferol (Vitamin D 1000 Unit), 1,000 INTER.UNIT PO DAILY Furosemide (Lasix), 20 MG PO DAILY Insulin Glargine (Lantus Solostar), 32 UNITS SQ QAM Losartan Potassium (Cozaar), 50 MG PO DAILY Metformin Hcl (Glucophage), 1,000 MG PO BID Metoprolol Succ (Toprol Xl) (Toprol-Xl), 50 MG PO QAM Metoprolol Succ (Toprol Xl) (Toprol-Xl), 25 MG PO QPM Ticagrelor (Brilinta), 90 MG PO BID Warfarin Sodium (Coumadin), 5 MG PO DAILY Scheduled PRN Nitroglycerin (Nitrostat), 0.4 MG UT UD PRN for Chest Pain Allergies Coded Allergies: Penicillins (Verified Allergy, Intermediate, HIVES, 11/25/16) Clopidogrel (Verified Allergy, Mild, 11/25/16) Physical Exam Vital Signs Date Time Temp Pulse Resp B/P (MAP) Pulse Ox O2 Delivery O2 Flow Rate FiO2 12/30/16 06:32 79 20 145/90 95 Room Air 12/30/16 06:01 73 20 157/90 96 Room Air 12/30/16 05:30 72 20 154/105 96 Room Air 12/30/16 03:29 36.7 12/30/16 03:23 73 20 153/88 96 Room Air 12/30/16 02:02 73 16 174/98 97 Room Air 12/30/16 01:46 96 Room Air 12/30/16 01:46 96 Room Air 12/30/16 01:39 73 20 179/95 96 Room Air Physical Exam Vital signs reviewed. General: Well-appearing male, in no significant distress. HEENT: No scleral icterus, PERRLA, neck supple. Atraumatic. Cardiovascular: Regular rate and rhythm, no extra sounds. Pulmonary: Clear to auscultation bilaterally, normal work of breathing. Abdomen: Soft, nontender, nondistended, positive bowel sounds. Musculoskeletal: Atraumatic, no peripheral edema. Neurologic: Patient awake alert and oriented x 3, full strength in all 4 extremities. Cranial nerves 2 through 12 grossly intact. Skin: Warm, dry, no rash Medical Decision & Procedures ER Provider Diagnostic Interpretation: X-ray results as stated below per interpretation by me: Chest X-ray: Normal cardiac silhouette, no evidence of failure, no focal infiltrate, pacemaker in left upper chest. Laboratory Results 12/30/16 01:36 Test 12/30/16 01:36 12/30/16 04:30 Anion Gap 8.0 mmol/L (3-11) Est Creatinine Clear Calc Drug Dose 75.0 ml/min Estimated GFR () 88.9 Estimated GFR (Non- 76.7 BUN/Creatinine Ratio 11.8 (10-20) Calcium Level 8.8 mg/dl (8.5-10.1) Magnesium Level 1.8 mg/dl (1.8-2.4) Total Bilirubin 0.3 mg/dl (0.2-1) Direct Bilirubin mg/dl (0-0.2) Aspartate Amino Transf (AST/SGOT) 21 U/L (15-37) Alanine Aminotransferase (ALT/SGPT) 25 U/L (12-78) Alkaline Phosphatase 74 U/L (45-117) Total Protein 7.3 gm/dl (6.4-8.2) Albumin 3.5 gm/dl (3.4-5.0) Bedside Troponin I < 0.030 ng/ml (0-0.045) Laboratory results per my review. Medications Administered Medications (Trade) Dose Ordered Sig/Hammad Route Start Time Stop Time Status Last Admin Dose Admin Aspirin (Aspirin Chew) 324 mg NOW STAT PO 12/30/16 01:45 12/30/16 01:48 DC 12/30/16 01:57 243 MG Hydralazine HCl (HydrALAZINE INJ) 10 mg NOW STAT IV. 12/30/16 05:35 12/30/16 05:37 DC 12/30/16 05:47 10 MG ECG Indication: chest pain, SOB/dyspnea Rate (beats per minute): 73 Rhythm: other (atrial sensed ventricular paced) Findings: PVC, no acute ischemic change ED Course 0140: The patient was evaluated by the student at this time. We discussed findings, differentials, and treatment plan. 0145: Aspirin 324 mg PO. 0146: The patient is no longer having chest pain and declines nitro. 0202: Past medical records reviewed. The patient was evaluated in room B7. A complete history and physical examination was performed. 0533: Upon reevaluation, the patient is resting comfortably. I discussed laboratory and radiographic results with him. He verbalized agreement of the treatment plan. The patient will be evaluated for further management and care. 0535: Hydralazine HCl 10 mg IV. 0552: I reviewed the patient's case with Naheed Tavares [facility]. He will evaluate the patient for further management. Medical Decision Differential diagnosis: Acute coronary syndrome, pulmonary embolus, aortic dissection, musculoskeletal pain, pneumonia, pleural effusion, pneumothorax This patient was evaluated and appeared to be in no significant distress. IV access was obtained and laboratory work was drawn. Pt is noted to be hypertensive. Patient was observed on the biometrics experimentalist. EKG reveals a paced rhythm. The patient was given aspirin 324 mg to chew. Laboratory work reveals negative cardiac enzymes. Chest x-ray is fairly unrevealing. On reevaluation, the patient was informed of the findings. He is noted to be persistently hypertensive was given hydralazine 10 mg IV. The patient states that if his chest pain returns, he was told by the interventional asked that he may be able to place a stent. Given his history of CAD and the hypertension, he 'll be evaluated by the hospitalist service for further management. Medication Reconcilliation Current Medication List: was personally reviewed by me Blood Pressure Screening Patient's blood pressure: Elevated blood pressure Will be monitored by hospitalist. Consults Time Called: 0547 Consulting Physician: Naheed Tavares [facility] Returned Call: 05 I reviewed the patient's case with him. He will evaluate the patient for further management. Impression Primary Impression: Hypertensive urgency Additional Impression: Chest pain Scribe Attestation The scribe's documentation has been prepared under my direction and personally reviewed by me in its entirety. I confirm that the note above accurately reflects all work, treatment, procedures, and medical decision making performed by me. Departure Information Dispostion Being Evaluated By Hospitalist Referrals Melo Carlos M.D. (PCP) Patient Instructions [facility] Problem Qualifiers
[2016-12-30] MEDS ORDERED: NITROGLYCERIN 0.4 MG SL PER TAB CHARGE SL PRN (07:00)
[2016-12-30] MEDS ORDERED: ONDANSETRON INJ 2 MG/ML 2 ML VIAL IV PRN (07:00)
[2016-12-30] MEDS ORDERED: NITROGLYCERIN 0.4 MG SL PER TAB CHARGE UT PRN (07:15)
[2016-12-30] MEDS ORDERED: IV FLUIDS COMPLETED PRN (07:15)
--- NOTE | 2016-12-30 07:24 | DIAGNOSTIC IMAGING REPORT ---
CHEST ONE VIEW PORTABLE HISTORY: 81 years-old Male acute chest pain COMPARISON: Chest radiograph 11/25/2016 TECHNIQUE: Portable upright AP view of the chest FINDINGS: Cardiac silhouette is again mildly enlarged. There is atherosclerosis of the aorta. Prior median sternotomy. Left pectoral pacer is again noted with leads intact. There is no pneumothorax or pleural effusion. Linear subsegmental bibasilar opacities suggest atelectasis. No lobar airspace consolidation. Severe left and mild right degenerative changes involving the AC joints with moderate right glenohumeral joint osteoarthritis. IMPRESSION: Mild cardiomegaly without overt edema or acute cardiopulmonary process. The above report was generated using voice recognition software. It may contain grammatical, syntax or spelling errors. Electronically signed by: Bruno Ferreira M.D. 12/30/2016 7:22 AM Dictated Date/Time: 12/30/2016 7:21 AM
[2016-12-30] MEDS ORDERED: NSS + 20MEQ KCL 1000ML 1,000 ML IV SCH (08:00)
[2016-12-30] MEDS ORDERED: DEXTROSE 50% 50 ML SYR IV PRN (08:00)
[2016-12-30] MEDS ORDERED: GLUCOSE 10 TABS/TUBE PO PRN (08:00)
[2016-12-30] MEDS ORDERED: GLUCOSE 40% GEL 15 GM TUBE PO PRN (08:00)
[2016-12-30] MEDS ORDERED: GLUCAGON FOR INJ 1 MG VIAL SQ PRN (08:00)
[2016-12-30] MEDS: ASPIRIN 81 MG ECTAB PO SCH (08:29)
[2016-12-30] MEDS: CHOLECALCIFEROL 1000 INTER.UNIT TAB PO SCH (08:29)
[2016-12-30] MEDS: FUROSEMIDE 20 MG TAB PO SCH (08:30)
[2016-12-30] MEDS: ATORVASTATIN 40 MG TAB PO SCH (08:30)
[2016-12-30] MEDS: LOSARTAN POTASSIUM 50 MG TAB PO SCH (08:31)
[2016-12-30] MEDS: INSULIN GLARGINE SOLOSTAR 100 UNITS/ML 3 ML PEN SQ SCH (08:38)
[2016-12-30] MEDS: INSULIN ASPART 100 UNITS/ML 3 ML PEN SC SCH ×4 (08:38→21:20)
[2016-12-30] MEDS ORDERED: HEPARIN IV BOLUS 4,000 UNIT in SYRINGE 0 ML IV ONE (08:45)
[2016-12-30] MEDS ORDERED: HEPARIN 25,000 UNIT/500ML D5W 500 ML IV PRN (08:45)
[2016-12-30] MEDS: TICAGRELOR 90 MG TAB PO SCH ×2 (09:00→20:14)
[2016-12-30] MEDS ORDERED: METOPROLOL SUCC 50MG EXT REL TAB PO SCH (09:00)
[2016-12-30] MEDS ORDERED: AMLODIPINE BESYLATE 5 MG TAB PO SCH (09:00)
--- NOTE | 2016-12-30 09:04 | HISTORY & PHYSICAL EXAMINATION ---
DATE OF ADMISSION: 12/30/2016 PRIMARY CARE PHYSICIAN: Dr. Carlos. CHIEF COMPLAINT: Shortness of breath with chest pain and diaphoresis since about 12 a.m.. HISTORY OF PRESENT COMPLAINT: He is an 81-year-old male with significant past medical history including atrial fibrillation, CAD status post bypass and stent placement, type 2 diabetes on insulin, sinus node dysfunction status post pacemaker placement, hypertension, hyperlipidemia, history of cerebral hemorrhage. Apparently has been complaining of shortness of breath since around midnight last night with shortness of breath that did not go away. He did not take any medications. Later on he also complained of some chest pain in the precordial area without radiation. He has had some nausea with no vomiting with it, but he was sweating as well. In the ER, he was noted to have high blood pressure with blood pressure more than 170 and apparent test came back negative for any acute OH, but given his complex cardiac history he was admitted to telemetry unit to rule out and also cardiology evaluation. PAST MEDICAL HISTORY: Paroxysmal atrial fibrillation on long-term anticoagulation, type 2 diabetes on insulin, sinus node dysfunction status post cardiac pacemaker, hypertension, hyperlipidemia, history of gout, CAD status post CABG and angioplasty. PAST SURGICAL HISTORY: Significant for CABG in 2006, partial removal of pancreas in 2010, tonsillectomy as a child, and inguinal hernia repair. FAMILY HISTORY: Significant that brother has diabetes and heart disease. Father had CVA at the age of 62. Mother has hypertension and CVA in 70s. SOCIAL HISTORY: He is a . Former smoker. Uses snuff. He uses alcohol socially. He has been reasonably ambulant. ALLERGIES: PLAVIX AND PENICILLINS. MEDICATIONS: As an outpatient, he has been on metformin 1000 mg b.i.d., amlodipine 2.5 mg in the morning, aspirin 81 mg daily, Lipitor 40 mg daily, vitamin D 1000 units daily, Lasix 20 mg daily, Lantus 32 units subQ in the morning, Cozaar 50 mg daily, Toprol-XL 25 mg in the evening and 50 mg in the morning, nitroglycerin as directed, Brilinta 90 mg b.i.d. and warfarin sodium 5 mg as directed. REVIEW OF SYSTEMS: Other systems reviewed are unremarkable except for those mentioned in history of present complaint. PHYSICAL EXAMINATION: GENERAL: On examination in the Emergency Room, he was not having any acute distress. VITAL SIGNS: Temperature 36.4, pulse 70s, blood pressure 168/99, saturation >90 on room air. HEAD, EYES, EARS, NOSE, AND THROAT: Unremarkable. NECK: Supple. No JVD, no bruit. CHEST: Decreased breath sounds at bases but no wheezing and/or crackles. HEART: S1, S2 regular with 2/6 systolic murmur over the precordium. ABDOMEN: Distended, soft, benign, and nontender, no organomegaly. Bowel sounds present. EXTREMITIES: Trace edema bilaterally. MUSCULOSKELETAL SYSTEM: Did not show any acute arthritis. CENTRAL NERVOUS SYSTEM: He was alert, awake and oriented x3. No focal sensory and/or motor deficit appreciated. LABS NOTED TODAY: White count was 9.17, H&H 14.2/41.8, platelet was 189. Sodium 131, potassium 4.2, BUN 11, creatinine 0.93, random glucose 246. LFTs unremarkable. Troponin less than 0.030. Total protein 7.3, albumin 3.5. INR was 1.0, PTT ratio 1.0. IMPRESSION AND PLAN: 1. Atypical chest pain with shortness of breath and angina. The patient will be admitted to telemetry unit. Serial cardiac enzymes to rule out. Cardiology evaluation for further management of coronary artery disease. He was in the hospital in November 30. At that time he underwent cardiac cath and he was found to have severe left circumflex stenosis proximal to bypass anastomosis and severe right mid posterior descending artery stenosis. Could not be able to put any stent during that time. 2. Paroxysmal atrial fibrillation on anticoagulation. His INR seems to be 1.0. Most likely he has not been taking his warfarin. He was advised not to take any Coumadin for 4weeks since 11/30/16.Further administration of Coumadin and or Heaprin as per game producer. 3. Diabetes type 2 on insulin. I will continue current insulin dose and hold metformin while in the hospital. 4. Hypertension. Blood pressure seems to be on upper side of normal. Continue current medications, hopefully it will stabilize when anxiety level is down. 5. Hyperlipidemia. Continue current dose of statin. 6. Coronary artery disease status post coronary artery bypass graft and status post stent placement. Cardiology consult for further evaluation and management of cardiac disease. 7. Gastrointestinal prophylaxis with Protonix and deep venous thrombosis prophylaxis with heparin and warfarin. 8. CODE STATUS: DISCUSSED WITH THE PATIENT, HE WILL BE FULL CODE. In my medical judgment the beneficiary meets criteria for CMS for 2 midnight stays in the hospital. VIKTORIA
[2016-12-30 09:17] LABS: BASO % 0.4 %; BASO ABS # 0.04 K/uL (0-0.2); EOS % 4.6 %; HEMATOCRIT 42.1 % (42-52); IG% 0.3 %; LYMPH ABS # 3.21 K/uL (1.2-3.4); MEAN CELL VOLUME 94.6 fL (80-100); MEAN CORPUSCULAR HEMOGLOBIN 31.2 pg (25-34); MEAN PLATELET VOLUME 10.9 fL (7.4-10.4); MONO % 15.7 %; PLATELET COUNT 185 K/uL (130-400); RED BLOOD COUNT 4.45 M/uL (4.7-6.1); WHITE BLOOD COUNT 9.44 K/uL (4.8-10.8)
[2016-12-30 09:20] LABS: COMPLETE YES
[2016-12-30 09:26] LABS: INR 1.1 (0.9-1.1); PROTHROMBIN TIME (PATIENT) 11.4 SECONDS (9.0-12.0)
--- NOTE | 2016-12-30 11:14 | Cardiology Consultation ---
Cardiology Consultation Date of Consultation: Dec 30, 2016 Requesting Physician: Nomi Attending Is Support Analyst: Citlali (Melo Rocha PA-C) History of Present Illness Mr. Truman Little is a pleasant 81 year old male who is being seen at the request of Dr. Mosher. Reason for consultation is CAD with angina. Mr. Little notes that he got tired of watching the baseball game last night then went to bed. He notes getting settled into bed and falling a sleep for a short period of time, awaking with a mild nonradiating left sided chest tightness associated with dyspnea. He notes panicking, calling his daughter Rekha who advised ER evaluation. He took a baby ASA at home. He has sublingual nitroglycerin on the night stand but did not take it as prescribed/advised. Symptoms were similar to those requiring evaluation and intervention in November. Symptoms resolved prior to ER presentation. EKG on presentation revealed an atrial-sensed ventricular-paced rhythm with occasional premature ventricular complexes. Point of care troponin negative x 2. Chest x-ray on admission revealed mild cardiomegaly without overt edema or acute cardiopulmonary process (as per Dr. Ferreira). Blood pressure on presentation was hypertensive. No change in functional capacity. He does ride a stationary bicycle at a moderate pace for 5 minutes without symptoms. No exertional chest pain. No palpitations. Stable exertional shortness of breath. No orthopnea, PND, or peripheral edema. No lightheadedness, dizziness, near syncope or true syncope. No fevers or chills. No excessive bruising or bleeding. Mr. Little ate a stuffed pepper, tortellini salad with corn and tomatoes, creamy cucumber salad with onions, and puffed corn. Patient admitted to [facility] November 29, 2016 to December 01, 2016 with chest discomfort. He was initially evaluated by Mrs. Vasques/Dr. Godwin followed by Dr. Valdez and then Dr. Mason. Diagnosis NSTEMI. Troponin peak 0.350 ng/mL. Cardiac catheterization demonstrated patent bypass grafts, totally occluded LAD, severe left circumflex stenosis proximal to bypass anastomosis, and severe mid right posterior descending artery stenosis. Plain old balloon angioplasty of the right PDA was performed with residual 50% stenosis observed. Interventional Cardiology was unable to pass a bare metal stent. Multiple medication changes were made upon discharge including the addition of Brilinta, holding Coumadin, titration of metoprolol, and reduction in atorvastatin from 80 mg/day to 40 mg/day because of the Brilinta. Post discharge the patient was evaluated by the undersigned. Memory impairment post CVA noted. Patient noted to be inadvertently taking the wrong medications from the pill boxes established by his daughter. At that time we decided to complete 1 month of Brilinta post POBA then transition back to Coumadin anticoagulation. He is set to discontinue Brilinta on Saturday, December 31, 2016. (Melo Rocha PA-C) Past Medical/Surgical History Problem List: Past Medical/Surgical History: 1.Ischemic heart disease 2.Catheter based intervention with bare metal stent to RCA and left circumflex coronary arteries with bare metal stent in 2002. 3.S/P CABG - CLEARY to LAD and a saphenous vein graft to obtuse marginal branch and a modified Maze procedure and occlusion of the left atrial appendage . 4.November 2016 NSTEMI, POBA of the RPDA with residual 50% stenosis. 5.Systolic congestive heart failure. Prior EF 45%. LVEF at [facility] in November 2016 50- 55%. 6.Paroxysmal atrial fibrillation and flutter 7.Bifascicular AV block status post dual-chamber pacemaker insertion on 2015. 8.History of spontaneous intraparenchymal cerebral hemorrhage, February 2014 9.Hypertension. 10.Hyperlipidemia. 11.Type 2 diabetes mellitus. 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 History of splenectomy. 14.Gout. 15.Colonoscopy with polypectomy. 16.Tonsillectomy. 17.Adenoidectomy. 18.Bilateral endoscopic inguinal hernia repair. 19.Right arthroscopic knee surgery. Family History: Father with a CVA at 62. Mother had hypertension, CVA and Alzheimer's. She in her 70s. Brother with CAD. Positive for CAD, hypertension, and diabetes mellitus. Social History: Prior smoker, one pack per day x 30 years. Social alcohol at [employer]. 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 . Girlfriend. Lives at [facility] in [place]. (Melo Rocha PA-C) Family History Diabetes mellitus FH: heart disease FH: hypertension (Melo Rocha PA-C) Diabetes mellitus FH: heart disease FH: hypertension (Tony Godwin DO) Social History Smoking Status: Never Smoker Drug Use: none Marital Status: Occupation: retired (Melo Rocha PA-C) Review Of Systems Complete review of systems is as stated above, negative, or noncontributory. (Melo Rocha PA-C) Allergies Coded Allergies: Penicillins (Verified Allergy, Intermediate, HIVES, 11/25/16) Clopidogrel (Verified Allergy, Mild, 11/25/16) Medications Reported Home Medications Medications Dose Route/Sig Max Daily Dose Days Date Category Dose Instructions Coumadin (Warfarin Sodium) 5 Mg Tab 5 Mg PO DAILY 12/30/16 Reported Toprol-Xl (Metoprolol Succinate) 25 Mg Tabcr 25 Mg PO QPM 12/30/16 Reported Toprol-Xl (Metoprolol Succinate) 25 Mg Tabcr 50 Mg PO QAM 12/30/16 Reported Lipitor (Atorvastatin Calcium) 40 Mg Tab 40 Mg PO DAILY 12/30/16 Reported Aspirin Ec (Aspirin) 81 Mg Tab 81 Mg PO QAM 12/30/16 Reported Norvasc (Amlodipine Besylate) 2.5 Mg Tab 2.5 Mg PO QAM 12/30/16 Reported Brilinta (Ticagrelor) 90 Mg Tab 90 Mg PO BID 30 12/01/16 Rx Glucophage (Metformin Hcl) 1,000 Mg Tab 1,000 Mg PO BID 11/23/16 Reported Lantus Solostar (Insulin Glargine) 100 Unit/Ml Inj 32 Units SQ QAM 11/23/16 Reported Lasix (Furosemide) 20 Mg Tab 20 Mg PO DAILY 09/17/14 Reported Cozaar (Losartan Potassium) 50 Mg Tab 50 Mg PO DAILY 09/17/14 Reported Vitamin D 1000 Unit (Cholecalciferol) 1,000 Unit Cap 1,000 Inter.unit PO DAILY 03/10/14 Reported Nitrostat (Nitroglycerin) 0.4 Mg Sub 0.4 Mg UT UD PRN 11/07/[address] ONE TABLET UNDER THE TONGUE EVERY 5 MINUTES FOR UP TO 3 DOSES OVER 15 MINUTES IF NEEDED FOR CHEST PAIN. (Melo Rocha PA-C) Physical Exam Vital Signs (Last 8hrs): Last 8 Hrs Date Time Temp Pulse Resp B/P (MAP) Pulse Ox O2 Delivery O2 Flow Rate FiO2 12/30/16 08:24 96 Room Air 12/30/16 07:50 36.4 75 16 168/99 (122) 96 Room Air 12/30/16 07:45 36.4 75 18 168/99 (122) 96 Room Air 12/30/16 07:13 76 18 174/94 95 Room Air 12/30/16 06:32 79 20 145/90 95 Room Air 12/30/16 06:01 73 20 157/90 96 Room Air 12/30/16 05:30 72 20 154/105 96 Room Air 12/30/16 03:29 36.7 12/30/16 03:23 73 20 153/88 96 Room Air General: NAD. A&O to person and place HEENT: Normocephalic. PER. Conjunctiva pink, sclera clear. No carotid bruits. No JVD. No HJR. Heart: Regular, 70 bpm. I could not appreciate a murmur Lungs: Clear to auscultation. Abdomen: +BS. Soft. Nontender. No masses or organomegaly. Extremities: No edema. No clubbing. No cyanosis. Pulses: radial=3/4, posterior tibial=3/4. Neuro: No focal deficits. Psychiatric: Normal affect. (Melo Rocha, ALONSO) Data Last 24 Hours Test 12/30/16 01:36 12/30/16 01:52 12/30/16 04:30 12/30/16 08:02 White Blood Count 9.17 K/uL Red Blood Count 4.39 M/uL Hemoglobin 14.2 g/dL Hematocrit 41.8 % Mean Corpuscular Volume 95.2 fL Mean Corpuscular Hemoglobin 32.3 pg Mean Corpuscular Hemoglobin Concent 34.0 g/dl Platelet Count 189 K/uL Mean Platelet Volume 10.5 fL Neutrophils (%) (Auto) 39.4 % Lymphocytes (%) (Auto) 43.1 % Monocytes (%) (Auto) 12.1 % Eosinophils (%) (Auto) 4.3 % Basophils (%) (Auto) 0.7 % Neutrophils # (Auto) 3.62 K/uL Lymphocytes # (Auto) 3.95 K/uL Monocytes # (Auto) 1.11 K/uL Eosinophils # (Auto) 0.39 K/uL Basophils # (Auto) 0.06 K/uL RDW Standard Deviation 49.3 fL RDW Coefficient of Variation 14.2 % Immature Granulocyte % (Auto) 0.4 % Immature Granulocyte # (Auto) 0.04 K/uL Prothrombin Time 10.6 SECONDS Prothromb Time International Ratio 1.0 Activated Partial Thromboplast Time 25.6 SECONDS Partial Thromboplastin Ratio 1.0 Sodium Level 141 mmol/L Potassium Level 4.2 mmol/L Chloride Level 110 mmol/L Carbon Dioxide Level 23 mmol/L Anion Gap 8.0 mmol/L Blood Urea Nitrogen 11 mg/dl Creatinine 0.93 mg/dl Est Creatinine Clear Calc Drug Dose 75.0 ml/min Estimated GFR () 88.9 Estimated GFR (Non- 76.7 BUN/Creatinine Ratio 11.8 Random Glucose 246 mg/dl Calcium Level 8.8 mg/dl Magnesium Level 1.8 mg/dl Total Bilirubin 0.3 mg/dl Direct Bilirubin mg/dl Aspartate Amino Transf (AST/SGOT) 21 U/L Alanine Aminotransferase (ALT/SGPT) 25 U/L Alkaline Phosphatase 74 U/L Total Creatine Kinase 173 U/L Creatine Kinase MB 3.3 ng/ml Creatine Kinase MB Ratio 1.9 Total Protein 7.3 gm/dl Albumin 3.5 gm/dl Chemistry Specimen Hemolysis Bedside Troponin I < 0.030 ng/ml < 0.030 ng/ml Bedside Glucose 206 mg/dl Test 12/30/16 08:43 White Blood Count 9.44 K/uL Red Blood Count 4.45 M/uL Hemoglobin 13.9 g/dL Hematocrit 42.1 % Mean Corpuscular Volume 94.6 fL Mean Corpuscular Hemoglobin 31.2 pg Mean Corpuscular Hemoglobin Concent 33.0 g/dl Platelet Count 185 K/uL Mean Platelet Volume 10.9 fL Neutrophils (%) (Auto) 45.0 % Lymphocytes (%) (Auto) 34.0 % Monocytes (%) (Auto) 15.7 % Eosinophils (%) (Auto) 4.6 % Basophils (%) (Auto) 0.4 % Neutrophils # (Auto) 4.25 K/uL Lymphocytes # (Auto) 3.21 K/uL Monocytes # (Auto) 1.48 K/uL Eosinophils # (Auto) 0.43 K/uL Basophils # (Auto) 0.04 K/uL RDW Standard Deviation 49.3 fL RDW Coefficient of Variation 14.2 % Immature Granulocyte % (Auto) 0.3 % Immature Granulocyte # (Auto) 0.03 K/uL Prothrombin Time 11.4 SECONDS Prothromb Time International Ratio 1.1 Activated Partial Thromboplast Time 26.4 SECONDS Partial Thromboplastin Ratio 1.0 Telemetry reviewed: Appears to be sinus in the 70's. (Melo Rocha PA-C) Assessment & Plan Resting chest tightness as described above. Symptoms were mild, self limiting, resulting in anxiety/panic. EKG is nondiagnostic POC Troponin negative x 2. Ischemic burden on the 04/2016 nuclear stress test was mild. Recommend conservative management if possible. Plan: 1. Serial cardiac enzymes 2. Resting echocardiography. 3. Blood pressure control with antianginal medications - titrate beta-mitchel , nitrates, and amlodipine. 4. Interrogate pacemaker. 5. If cardiac workup is negative would continue the plan of completing one month of Brilinta (Tuesday) then transiting back to Coumadin anticoagulation. 6. Continue ASA and statin. Systolic congestive heart failure. Prior EF 45%. EF 55% in November 2016 Compensated Medical management with evidence based beta-mitchel, ARB, and low dose diuretic therapy Paroxysmal atrial fibrillation and flutter Continue Toprol XL Interrogate pacemaker Anticoagulation: See above. Bifascicular AV block status post dual-chamber pacemaker insertion on 2015. History of spontaneous intraparenchymal cerebral hemorrhage, February 2014 Hypertension. Hyperlipidemia. (Melo Rocha PA-C) CARDIOLOGY ATTENDING ADDENDUM: The patient was seen and personally examined. Agree with Melo Rocha PA-C's findings and plans as documented above. Complex case, but I think appropriate management is conservative. I would not at this time proceed to further testing. (Tony Godwin, DO)
[2016-12-30] MEDS: NITROGLYCERIN OINT 2% 1GM PACKET EXT SCH ×3 (12:37→23:37)
[2016-12-30] MEDS ORDERED: PERFLUTREN LIPID MICROSPHERE (DEFINITY) IV ONE (12:47)
[2016-12-30] MEDS ORDERED: HEPARIN SOD 5000 UNIT/0.5 ML CARP SQ SCH (14:00)
[2016-12-30] MEDS: HEPARIN SOD 5000 UNIT/0.5 ML CARP SQ SCH ×2 (14:00→20:09)
[2016-12-30 14:02] LABS: CKMB/CK RATIO 1.8 (0-3.0)
--- NOTE | 2016-12-30 15:11 | ECHOCARDIOGRAM REPORT ---
*NOTICE TO RECEIVING DEMOCRAT AGENCY This information is strictly Confidential and protected under [place] law. [place] law prohibits you from making any further disclosure of this information unless further disclosure is expressly permitted by the written consent of the person to whom it pertains or is authorized by law. A general authorization for the release of medical or other information is not sufficient for this purpose. Hospital accepts no responsibility if the information is made available to any other person, INCLUDING THE PATIENT. Interpretation Summary * Name: ANTOINETTE AHUMADA Study Date: 12/30/2016 12:17 PM BP: 168/99 mmHg * Patient Location: [facility]\S\N280\S\2 HR: 75 * : 1935 (M/d/yyy) Gender: Male Height: 71 in * Age: 81 yrs Ethnicity: [place] Weight: 220 lb * Ordering Physician: Melo Rocha * Performed By: Amina Apodaca * * Reason For Study: CHEST PAIN * BSA: 2.2 m2 * -- Conclusions -- * Aortic valve sclerosis mild, without significant aortic valvular stenosis. * There is mild concentric left ventricular hypertrophy. * Ejection Fraction = 55-60%. * The left ventricular wall motion is normal. * The right ventricular systolic function is normal. * The left atrium is moderately dilated. * The right atrium is moderately dilated. * There is moderate mitral regurgitation. * There is mild tricuspid regurgitation. Procedure Details * A complete two-dimensional transthoracic echocardiogram was performed (2D, M-mode, Doppler and color flow Doppler). * A contrast injection of Definity was performed to improve assessment of LV function. * Contrast was injected into an intravenous site in the right arm. * One vial of Definity ultrasound contrast was diluted in normal saline to a total volume of 10 ml. A total of '3' ml of solution was administered during imaging. * Lot # [id number] of Definity utilized for procedure. * Expiration date 01/07. * The attending nurse who injected the contrast agent was PASCUAL CASTAÑEDA RN. Left Ventricle * The left ventricle is normal in size. * There is mild concentric left ventricular hypertrophy. * Left ventricular systolic function is normal. * Ejection Fraction = 55-60%. * The left ventricular wall motion is normal. Right Ventricle * The right ventricle is normal size. * The right ventricular systolic function is normal. Atria * The left atrium is moderately dilated. * The right atrium is moderately dilated. Mitral Valve * There is mild mitral annular calcification. * There is moderate mitral regurgitation. Tricuspid Valve * The tricuspid valve anatomy is normal. * There is mild tricuspid regurgitation. Aortic Valve * Aortic valve sclerosis mild, without significant aortic valvular stenosis. * There is no significant aortic regurgitation. Pulmonic Valve * The pulmonic valve is not well visualized. Great Vessels * The aortic root and proximal ascending aorta are normal sized. Pericardium/Pleural * There is no pericardial effusion. MMode 2D Measurements and Calculations IVSd 1.5 cm IVSs 2.1 cm LVIDd 5.4 cm LVIDs 3.7 cm LVPWd 1.2 cm LVPWs 1.9 cm IVS/LVPW 1.3 FS 30.5 % EDV(Teich) 140.6 ml ESV(Teich) 59.8 ml EF(Teich) 57.4 % EDV(cubed) 156.4 ml ESV(cubed) 52.5 ml EF(cubed) 66.4 % % IVS thick 38.3 % % LVPW thick 58.2 % LV mass(C)d 307.4 grams LV mass(C)dI 140.0 grams/m\S\2 LV mass(C)s 335.1 grams LV mass(C)sI 152.6 grams/m\S\2 CO(Teich) 6.0 l/min CI(Teich) 2.7 l/min/m\S\2 SV(Teich) 80.7 ml SI(Teich) 36.8 ml/m\S\2 CO(cubed) 7.7 l/min CI(cubed) 3.5 l/min/m\S\2 SV(cubed) 103.9 ml SI(cubed) 47.3 ml/m\S\2 ACS 1.5 cm LA dimension 5.1 cm asc Aorta Diam 3.4 cm LVOT diam 2.5 cm LVOT area 5.0 cm\S\2 LVAd ap4 35.4 cm\S\2 LVLd ap4 8.4 cm EDV(MOD-sp4) 121.0 ml LVAs ap4 21.3 cm\S\2 LVLs ap4 7.0 cm ESV(MOD-sp4) 51.2 ml EF(MOD-sp4) 57.7 % LVAd ap2 31.9 cm\S\2 LVLd ap2 7.8 cm EDV(MOD-sp2) 106.0 ml LVAs ap2 19.8 cm\S\2 LVLs ap2 7.4 cm ESV(MOD-sp2) 42.6 ml EF(MOD-sp2) 59.8 % CO(MOD-sp4) 5.2 l/min CI(MOD-sp4) 2.4 l/min/m\S\2 SV(MOD-sp4) 69.8 ml SI(MOD-sp4) 31.8 ml/m\S\2 CO(MOD-sp2) 4.7 l/min CI(MOD-sp2) 2.1 l/min/m\S\2 SV(MOD-sp2) 63.4 ml SI(MOD-sp2) 28.9 ml/m\S\2 Doppler Measurements and Calculations MV E max maribel 78.6 cm/sec MV A max maribel 39.3 cm/sec MV E/A 2.0 MV dec time 0.15 sec Ao V2 max 145.8 cm/sec Ao max PG 8.5 mmHg Ao max PG (full) 5.3 mmHg FLORES(V,A) 3.1 cm\S\2 FLORES(V,D) 3.1 cm\S\2 LV V1 max PG 3.2 mmHg LV V1 max 89.2 cm/sec MR max maribel 308.4 cm/sec MR max PG 38.0 mmHg PA V2 max 50.4 cm/sec PA max PG 1.0 mmHg TR max maribel 250.1 cm/sec
[2016-12-30] MEDS ORDERED: WARFARIN SOD 5 MG TAB PO SCH (16:00)
[2016-12-30 20:00] LABS: CKMB/CK RATIO 1.7 (0-3.0)
[2016-12-30] MEDS: METOPROLOL SUCC 50MG EXT REL TAB PO SCH (20:14)
[2016-12-30] MEDS ORDERED: METOPROLOL SUCC 25MG EXT REL TAB PO SCH (21:00)
[2016-12-31 01:29] LABS: CKMB/CK RATIO 1.9 (0-3.0)
[2016-12-31] MEDS: ACETAMINOPHEN 325 MG TAB PO PRN ×2 (04:09→11:47)
[2016-12-31 04:54] VITALS: BP 153/88; PULSE 74; TEMP 36.5; O2SAT 94
[2016-12-31] MEDS: HEPARIN SOD 5000 UNIT/0.5 ML CARP SQ SCH (05:49)
[2016-12-31] MEDS: NITROGLYCERIN OINT 2% 1GM PACKET EXT SCH (05:49)
[2016-12-31 07:19] VITALS: BP 142/83; PULSE 59; TEMP 36.8; O2SAT 94
[2016-12-31 08:00] VITALS: O2SAT 94
[2016-12-31] MEDS: LOSARTAN POTASSIUM 50 MG TAB PO SCH (08:08)
[2016-12-31] MEDS: METOPROLOL SUCC 50MG EXT REL TAB PO SCH (08:09)
[2016-12-31] MEDS: CHOLECALCIFEROL 1000 INTER.UNIT TAB PO SCH (08:09)
[2016-12-31] MEDS: TICAGRELOR 90 MG TAB PO SCH (08:10)
[2016-12-31] MEDS: ASPIRIN 81 MG ECTAB PO SCH (08:10)
[2016-12-31] MEDS: ATORVASTATIN 40 MG TAB PO SCH (08:10)
[2016-12-31] MEDS: FUROSEMIDE 20 MG TAB PO SCH (08:10)
[2016-12-31] MEDS: INSULIN ASPART 100 UNITS/ML 3 ML PEN SC SCH ×2 (08:14→12:23)
[2016-12-31] MEDS: INSULIN GLARGINE SOLOSTAR 100 UNITS/ML 3 ML PEN SQ SCH (08:15)
[2016-12-31] MEDS ORDERED: AMLODIPINE BESYLATE 5 MG TAB PO SCH (09:00)
--- NOTE | 2016-12-31 09:04 | Cardiology Follow-Up ---
Subjective General Date of Service: Dec 31, 2016. Chief Complaint: Chest pain Pt evaluation today including: conversation w/ patient, physical exam, chart review, lab review, review of studies, review of inpatient medication list History of Present Illness Patient seen and examined. No complaints. Denies chest pain/discomfort, palpitations, or dyspnea. Slept well. Ate well. Short term memory impairment observed. Telemetry: Sinus. Intermittent atrial and ventricular pacing. Rare ventricular couplet. December 30, 2016 TTE Interpretation Summary ([facility], Dr. Godwin): Aortic valve sclerosis mild, without significant aortic valvular stenosis. There is mild concentric left ventricular hypertrophy. Ejection Fraction = 55-60%. The left ventricular wall motion is normal. The right ventricular systolic function is normal. The left atrium is moderately dilated. The right atrium is moderately dilated. There is moderate mitral regurgitation. There is mild tricuspid regurgitation Pacemaker interrogation requested 12/30/2016, results not yet obtained. Allergies Coded Allergies: Penicillins (Verified Allergy, Intermediate, HIVES, 11/25/16) Clopidogrel (Verified Allergy, Mild, 11/25/16) Social History Smoking Status: Never Smoker Hx Tobacco Use In Past Year?: No Hx Alcohol Use - Type And Amou: Yes (couple beers/vodka per week) Hx Substance Use - Type And Am: No Problem List Medical Problems: (1) Cellulitis Status: Acute (2) Chest pain radiating to upper extremity Status: Acute (3) Elevated troponin level Status: Acute (4) Foot pain Status: Acute (5) Hypertensive urgency Status: Acute (6) Left ankle pain Status: Acute (7) Substernal discomfort Status: Acute (8) Unstable angina Status: Acute Physical Exam Vital Signs Last Vital Signs Documentation Date Time Temp Pulse Resp B/P (MAP) Pulse Ox O2 Delivery O2 Flow Rate FiO2 12/31/16 07:19 36.8 59 18 142/83 (102) 94 Room Air Physical Exam Constitutional: General Apperance: heathly-appearing Level of Distress: NAD Ambulation: ambulating normally Psychiatric: Mental Status: active & alert Orientation: to time, to place, to person Memory: remote memory normal, recent memory abnormal Head: normocephalic, atraumatic Eyes: Pupils: PERRLA Neck: pertinent finding (Normal JVP) Lungs: Respiratory effort: no dyspnea Auscultation: breath sounds normal, no wheezing, no rales/crackles, no rhonchi Cardiovascular: Heart Auscultation: no rubs, II/ MISSAEL, irregular rate rhythm Peripheral Pulses: Radial Pulse: normal on the left, normal on the right Dorsalis Pedis Pulse: normal on the left, normal on the right Abdomen: Bowel Sounds: normal Inspection & Palpation: soft, non-distended Extremities: no cyanosis, no clubbing, edema (Trivial edema) Neurologic: Cranial Nerves: grossly intact Assessment and Plan Assessment and Plan Presentation with resting chest tightness as previously described Symptoms mild, self limiting, resulting in anxiety/panic. EKG is nondiagnostic Troponin negative x 4. Echo this admission with normal systolic function, without wall motion abnormalities. Ischemic burden mild on the 04/2016 nuclear stress test November 30, 2016 cardiac catheterization with patent bypass grafts, occluded LAD , severe LCX stenosis proximal to the bypass anastomosis, and severe mid RPDA stenosis status post POBA with residual 50% stenosis (unable to pass a bare metal stent). Moderate hypertension observed on presentation (179/95) RECOMMENDATIONS/PLAN: 1. Conservative medical management 2. Toprol XL increased to 50 mg twice a day. 3. Amlodipine increased to 5 mg/day 4. Transition nitro paste to Imdur 60 mg/day today (new) 5. Continue plan of completing one month of Brilinta, transiting back to Coumadin anticoagulation. 6. Continue ASA and statin. 7. Pacemaker interrogation 8. Add Protonix 40 mg/day 9. Increase activity as tolerated. 10. Cardiology follow-up at [facility] on February 04, 2017 at 9: 45 AM. Systolic congestive heart failure. EF normal. Compensated. Medical management. 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 Continue Toprol XL as above. Anticoagulation: See above. History of spontaneous intraparenchymal cerebral hemorrhage, February 2014 Hypertension. See above. Hyperlipidemia. Continue statin. CARDIOLOGY ATTENDING ADDENDUM: The patient was seen and personally examined. Agree with Melo Rocha PA-C's findings and plans as documented above. Laboratory Results Last 24 Hours Test 12/30/16 11:48 12/30/16 13:20 12/30/16 16:40 12/30/16 19:09 Bedside Glucose 202 mg/dl 160 mg/dl Total Creatine Kinase 146 U/L 145 U/L Creatine Kinase MB 2.6 ng/ml 2.5 ng/ml Creatine Kinase MB Ratio 1.8 1.7 Troponin I 0.029 ng/ml 0.022 ng/ml Chemistry Specimen Hemolysis Test 12/30/16 20:40 12/31/16 00:50 12/31/16 06:54 12/31/16 07:31 Bedside Glucose 208 mg/dl 193 mg/dl Total Creatine Kinase 136 U/L 131 U/L Creatine Kinase MB 2.6 ng/ml 2.6 ng/ml Creatine Kinase MB Ratio 1.9 2.0 Troponin I 0.032 ng/ml 0.022 ng/ml
[2016-12-31] MEDS ORDERED: ISOSORBIDE MONONITRATE 60 MG TABCR PO SCH (09:10)
[2016-12-31] MEDS ORDERED: PANTOprazole SOD 40 MG TAB PO SCH (10:00)
[2016-12-31 11:06] VITALS: BP 118/76; PULSE 77; TEMP 36.5; O2SAT 93
[2016-12-31] MEDS ORDERED: IMDSR60 PO (11:52)
[2016-12-31] MEDS ORDERED: TPRSR50 PO (11:52)
[2016-12-31] MEDS ORDERED: PRT40 PO (11:52)
[2016-12-31] MEDS ORDERED: NRV5 PO (11:52)
--- NOTE | 2016-12-31 12:04 | Discharge Instructions ---
Discharge Instructions Date of Service Dec 31, 2016. Admission Reason for Admission: Cad, Chest Pain Discharge Discharge Diagnosis / Problem: Angina Discharge Goals Goal(s): Prevent Disease Progression Activity Recommendations Activity Limitations: per Instructions/Follow-up section . Instructions / Follow-Up Instructions / Follow-Up Please take all medications as instructed. Please note several changes. Please follow-up with your Plywood Patcher at [facility] on 02/04/17 @ 9: 45am. Increase your activity as tolerated. Follow-up with coumadin clinic to adjust your Coumadin (warfarin) for goal INR 2 -3. You have a hospital follow-up scheduled with Dr. Cherri Santiago on 01/03 @ 12:45 to ensure you are doing well post-discharge. She will evaluate your response to your new medications and ensure no issues came up after discharge. Please bring all paperwork with you from discharge and arrive 10 minutes early. It was a pleasure taking care of you! Call if you have any questions or problems. You [facility] 24 hours a day by calling [phone]. Take care of yourself. Rosamaria Kramer, [facility] Current [facility] Diet Patient's current hospital diet: N/A, AHA Diet (Heart Healthy), Diabetes Type 2 Diet Discharge Diet Recommended Diet: AHA Diet (Heart Healthy), Diabetes Type 2 Diet Procedures Procedures Performed: TTE Aortic valve sclerosis mild, without significant aortic valvular stenosis. There is mild concentric left ventricular hypertrophy. Ejection Fraction = 55-60%. The left ventricular wall motion is normal. The right ventricular systolic function is normal. The left atrium is moderately dilated. The right atrium is moderately dilated. There is moderate mitral regurgitation. There is mild tricuspid regurgitation. Pacemaker interrogation-aflutter with slow ventricular response; PM settings were adjusted. Pending Studies Studies pending at discharge: no Laboratory Results Hemoglobin A1c Test 11/26/16 08:04 Range/Units Estimated Average Glucose 186 mg/dl Hemoglobin A1c 8.1 H 4.5-5.6 % Lipid Panel Test 11/26/16 00:45 Range/Units Triglycerides Level 82 0-150 mg/dl Cholesterol Level 142 0-200 mg/dl HDL Cholesterol 68 mg/dl Cholesterol/HDL Ratio 2.1 LDL Cholesterol, Calculated 58 mg/dl Medical Emergencies . Who to Call and When: Medical Emergencies: If at any time you feel your situation is an emergency, please call 911 immediately. . Non-Emergent Contact Non-Emergency issues call your: Primary Care Provider, Plywood Patcher . . "Provider Documentation" section prepared by Rosamaria Kramer. . VTE Core Measure Inpt VTE Proph given/why not?: Warfarin (Coumadin), Other Anticoagulation
--- NOTE | 2016-12-31 12:10 | Discharge Summary ---
Discharge Summary Date of Service Dec 31, 2016. Discharge Summary Admission Date: Dec 30, 2016 at 07:00 Discharge Date: Dec 31, 2016 Discharge Disposition: Home Principal Diagnosis: Angina 2/2 CAD HTN Paroxysmal atrial flutter s/p PM 06/11/15 chronic systolic CHF-compensated Tachy David Syndrome h/o spontaneous intraparenchymal cerebral hemorrhage, Feb 2014 Hyperlipidemia Procedures: TTE: * Aortic valve sclerosis mild, without significant aortic valvular stenosis. * There is mild concentric left ventricular hypertrophy. * Ejection Fraction = 55-60%. * The left ventricular wall motion is normal. * The right ventricular systolic function is normal. * The left atrium is moderately dilated. * The right atrium is moderately dilated. * There is moderate mitral regurgitation. * There is mild tricuspid regurgitation. Pacemaker interrogation: paroxysmal atrial flutter with SVR Vaccinations: None. Consultations: Cardiology Pending Studies/Follow-Up: see instructions below. Medication Reconciliation New Medications: Amlodipine Besylate (Amlodipine Besylate) 5 Mg Tab 5 MG PO QAM for 30 Days, #30 TAB 3 Refills Isosorbide Mononitrate (Isosorbide Mononitrate ER) 60 Mg Tab 60 MG PO QAM for 30 Days, #30 TAB 3 Refills Metoprolol Succinate (Metoprolol Succinate ER) 50 Mg Tabcr 50 MG PO BID for 30 Days, #60 TAB 3 Refills Pantoprazole (Pantoprazole Sodium) 40 Mg Tab 40 MG PO QAM for 30 Days, #30 TAB 3 Refills Continued Medications: Aspirin (Aspirin Ec) 81 Mg Tab 81 MG PO QAM Atorvastatin (Lipitor) 40 Mg Tab 40 MG PO DAILY, TAB Cholecalciferol (Vitamin D 1000 Unit) 1,000 Unit Cap 1000 INTER.UNIT PO DAILY, CAP Furosemide (Lasix) 20 Mg Tab 20 MG PO DAILY Insulin Glargine (Lantus Solostar) 100 Unit/Ml Inj 32 UNITS SQ QAM, PEN Losartan Potassium (Cozaar) 50 Mg Tab 50 MG PO DAILY, TAB Metformin Hcl (Glucophage) 1,000 Mg Tab 1000 MG PO BID, TAB Nitroglycerin (Nitrostat) 0.4 Mg Sub 0.4 MG UT UD PRN for Chest Pain, BTL PLACE ONE TABLET UNDER THE TONGUE EVERY 5 MINUTES FOR UP TO 3 DOSES OVER 15 MINUTES IF NEEDED FOR CHEST PAIN. Warfarin Sodium (Coumadin) 5 Mg Tab 5 MG PO DAILY, TAB Discontinued Medications: Amlodipine (Norvasc) 2.5 Mg Tab 2.5 MG PO QAM, TAB Metoprolol Succ (Toprol Xl) (Toprol-Xl) 25 Mg Tabcr 50 MG PO QAM, #30 TAB Metoprolol Succ (Toprol Xl) (Toprol-Xl) 25 Mg Tabcr 25 MG PO QPM, #30 TAB Ticagrelor (Brilinta) 90 Mg Tab 90 MG PO BID for 30 Days, #60 TAB 2 Refills Admission Information HPI (per Admitting provider): HISTORY OF PRESENT COMPLAINT: He is an 81-year-old male with significant past medical history including atrial fibrillation, CAD status post bypass and stent placement, type 2 diabetes on insulin, sinus node dysfunction status post pacemaker placement, hypertension, hyperlipidemia, history of cerebral hemorrhage. Apparently has been complaining of shortness of breath since around midnight last night with shortness of breath that did not go away. He did not take any medications. Later on he also complained of some chest pain in the precordial area without radiation. He has had some nausea with no vomiting with it, but he was sweating as well. In the ER, he was noted to have high blood pressure with blood pressure more than 170 and apparent test came back negative for any acute SC, but given his complex cardiac history he was admitted to telemetry unit to rule out and also cardiology evaluation. Physical Exam (per Admitting): PHYSICAL EXAMINATION: GENERAL: On examination in the Emergency Room, he was not having any acute distress. VITAL SIGNS: Temperature 36.4, pulse 70s, blood pressure 168/99, saturation >90 on room air. HEAD, EYES, EARS, NOSE, AND THROAT: Unremarkable. NECK: Supple. No JVD, no bruit. CHEST: Decreased breath sounds at bases but no wheezing and/or crackles. HEART: S1, S2 regular with 2/6 systolic murmur over the precordium. ABDOMEN: Distended, soft, benign, and nontender, no organomegaly. Bowel sounds present. EXTREMITIES: Trace edema bilaterally. MUSCULOSKELETAL SYSTEM: Did not show any acute arthritis. CENTRAL NERVOUS SYSTEM: He was alert, awake and oriented x3. No focal sensory and/or motor deficit appreciated. Hospital Course This patient was recently admitted to [facility] for chest discomfort and was evaluated by Cardiology for NSTEMI. He underwent a cardiac catheterization at that time revealing patent bypass grafts, totally occluded LAD, severe left circumflex stenosis proximal to bypass anastomosis and severe mid right posteriordescending artery stenosis. Balloon angioplasty of the right PDA was performed with residual 50% stenosis observed. Interventional Cardiology was unable to pass a bare metal stent. Multiple medication changes were made upon discharge including the addition of Brillinta, holding of coumadin, titration of metoprolol and reduction in Liptiro from 80mg daily to 40mg daily 2/2 Brillinta use. In follow-up patient was noted to be taking the wrong medications at home. It was in this context that he presented to the hospital with recurrent chest pain. His symptoms were mild, self-limiting and thought to be the result of anxiety and panic. His EKG was nondiagnostic and his serial cardiac enzymes were negative. His pacemaker was interrogated and was found to be funcitoning well with somem adjustments made. Resting echo was performed and revealed no new wall motion abnormalities. Conservative management with medications was recommended. His Brillinta was stopped and coumadin was overlapped per the original discharge plan. On day of discharge he was ambulating and mentating at baseline. He was without any chest pain, shortness of breath or other concerning symptoms. He was afebrile and hemodynamically stable and was discharged in stable condition. Total time spent on discharge = 60 minutes This includes examination of the patient, discharge planning, medication reconciliation, and communication with other providers. Discharge Instructions [facility] [address] [place] [address] Discharge Medical Patient Name: Truman Little Unit Number: [id number] Date of : 1935 Patient Status: Admitted Inpatient (obs) Attending Doctor: Rosamaria Kramer DO DI: Medical v4 Discharge Instructions Date of Service Dec 31, 2016. Admission Reason for Admission: Cad, Chest Pain Discharge Discharge Diagnosis / Problem: Angina Discharge Goals Goal(s): Prevent Disease Progression Activity Recommendations Activity Limitations: per Instructions/Follow-up section . Instructions / Follow-Up Instructions / Follow-Up Please take all medications as instructed. Please note several changes. Please follow-up with your Chef Manager at [facility] on 02/04/17 @ 9: 45am. Increase your activity as tolerated. Follow-up with coumadin clinic to adjust your Coumadin (warfarin) for goal INR 2 -3. You have a hospital follow-up scheduled with Dr. Cherri Santiago on 01/03 @ 12:45 to ensure you are doing well post-discharge. She will evaluate your response to your new medications and ensure no issues came up after discharge. Please bring all paperwork with you from discharge and arrive 10 minutes early. It was a pleasure taking care of you! Call if you have any questions or problems. You can reach a [facility] hospitalist on duty at [facility] 24 hours a day by calling [phone]. Take care of yourself. Rosamaria Kramer, [facility] Hospitalist Current Hospital Diet Patient's current hospital diet: N/A, AHA Diet (Heart Healthy), Diabetes Type 2 Diet Discharge Diet Recommended Diet: AHA Diet (Heart Healthy), Diabetes Type 2 Diet Procedures Procedures Performed: TTE Aortic valve sclerosis mild, without significant aortic valvular stenosis. There is mild concentric left ventricular hypertrophy. Ejection Fraction = 55-60%. The left ventricular wall motion is normal. The right ventricular systolic function is normal. The left atrium is moderately dilated. The right atrium is moderately dilated. There is moderate mitral regurgitation. There is mild tricuspid regurgitation. Pacemaker interrogation-aflutter with slow ventricular response; PM settings were adjusted. Pending Studies Studies pending at discharge: no Laboratory Results Hemoglobin A1c Test 11/26/16 08:04 Range/Units Estimated Average Glucose 186 mg/dl Hemoglobin A1c 8.1 H 4.5-5.6 % Lipid Panel Test 11/26/16 00:45 Range/Units Triglycerides Level 82 0-150 mg/dl Cholesterol Level 142 0-200 mg/dl HDL Cholesterol 68 mg/dl Cholesterol/HDL Ratio 2.1 LDL Cholesterol, Calculated 58 mg/dl Medical Emergencies . Who to Call and When: Medical Emergencies: If at any time you feel your situation is an emergency, please call 911 immediately. . Non-Emergent Contact Non-Emergency issues call your: Primary Care Provider, Chef Manager . . "Provider Documentation" section prepared by Rosamaria Kramer. . VTE Core Measure Inpt VTE Proph given/why not?: Warfarin (Coumadin), Other Anticoagulation Additional Copies To Cherri Santiago D.O.
--- NOTE | 2016-12-31 21:45 | Progress Note ---
Medicine Progress Note Date & Time of Visit: Dec 30, 2016 at 17:06. Subjective tolerating PO no chest pain overnight denies SOB mentating well ambulatory Objective Last 8 Hrs Date Time Temp Pulse Resp B/P (MAP) Pulse Ox O2 Delivery O2 Flow Rate FiO2 12/30/16 16:00 95 Room Air 12/30/16 15:22 36.4 76 20 159/85 (109) 95 Room Air 12/30/16 12:00 95 Room Air 12/30/16 11:53 36.4 81 18 165/82 (109) 95 Room Air Physical Exam: GEN: WNWD, in no acute distress, alert and appropriate HEENT: NC/AT, normal sclerae CARDIO: reg rate, S1/2 heard without m/g/r LUNGS: CTA bilaterally, no crackles, rales or wheezes, good diaphragmatic excursion ABD: soft, non-tender, non-distended, no rebound or guarding EXTREMITY: RP and DP palpable 2+ bilat, no LE swelling or edema, extremities are warm and well-perfused N/M: no gross focal deficits SKIN: warm and dry Laboratory Results: 12/30/16 08:43 Red Blood Count 4.45, Mean Corpuscular Volume 94.6, Mean Corpuscular Hemoglobin 31.2, Mean Corpuscular Hemoglobin Concent 33.0, Mean Platelet Volume 10.9, Neutrophils (%) (Auto) 45.0, Lymphocytes (%) (Auto) 34.0, Monocytes (%) (Auto) 15.7, Eosinophils (%) (Auto) 4.6, Basophils (%) (Auto) 0.4, Neutrophils # (Auto ) 4.25, Lymphocytes # (Auto) 3.21, Monocytes # (Auto) 1.48, Eosinophils # (Auto ) 0.43, Basophils # (Auto) 0.04 12/30/16 01:36 Test 12/30/16 01:36 12/30/16 04:30 12/30/16 08:43 12/30/16 13:20 Anion Gap 8.0 mmol/L (3-11) Est Creatinine Clear Calc Drug Dose 75.0 ml/min Estimated GFR () 88.9 Estimated GFR (Non- 76.7 BUN/Creatinine Ratio 11.8 (10-20) Calcium Level 8.8 mg/dl (8.5-10.1) Magnesium Level 1.8 mg/dl (1.8-2.4) Total Bilirubin 0.3 mg/dl (0.2-1) Direct Bilirubin mg/dl (0-0.2) Aspartate Amino Transf (AST/SGOT) 21 U/L (15-37) Alanine Aminotransferase (ALT/SGPT) 25 U/L (12-78) Alkaline Phosphatase 74 U/L (45-117) Total Protein 7.3 gm/dl (6.4-8.2) Albumin 3.5 gm/dl (3.4-5.0) Chemistry Specimen Hemolysis Bedside Troponin I < 0.030 ng/ml (0-0.045) White Blood Count 9.44 K/uL (4.8-10.8) Red Blood Count 4.45 M/uL (4.7-6.1) Hemoglobin 13.9 g/dL (14.0-18.0) Hematocrit 42.1 % (42-52) Mean Corpuscular Volume 94.6 fL (80-100) Mean Corpuscular Hemoglobin 31.2 pg (25-34) Mean Corpuscular Hemoglobin Concent 33.0 g/dl (32-36) Platelet Count 185 K/uL (130-400) Mean Platelet Volume 10.9 fL (7.4-10.4) Neutrophils (%) (Auto) 45.0 % Lymphocytes (%) (Auto) 34.0 % Monocytes (%) (Auto) 15.7 % Eosinophils (%) (Auto) 4.6 % Basophils (%) (Auto) 0.4 % Neutrophils # (Auto) 4.25 K/uL (1.4-6.5) Lymphocytes # (Auto) 3.21 K/uL (1.2-3.4) Monocytes # (Auto) 1.48 K/uL (0.11-0.59) Eosinophils # (Auto) 0.43 K/uL (0-0.5) Basophils # (Auto) 0.04 K/uL (0-0.2) RDW Standard Deviation 49.3 fL (36.4-46.3) RDW Coefficient of Variation 14.2 % (11.5-14.5) Immature Granulocyte % (Auto) 0.3 % Immature Granulocyte # (Auto) 0.03 K/uL (0.00-0.02) Prothrombin Time 11.4 SECONDS (9.0-12.0) Prothromb Time International Ratio 1.1 (0.9-1.1) Activated Partial Thromboplast Time 26.4 SECONDS (21.0-31.0) Partial Thromboplastin Ratio 1.0 Total Creatine Kinase 146 U/L (39-308) Creatine Kinase MB 2.6 ng/ml (0.5-3.6) Creatine Kinase MB Ratio 1.8 (0-3.0) Troponin I 0.029 ng/ml (0-0.045) Test 12/30/16 16:40 Bedside Glucose 160 mg/dl (70-99) Last 24 Hours Test 12/30/16 01:36 12/30/16 01:52 12/30/16 04:30 12/30/16 08:02 White Blood Count 9.17 K/uL Red Blood Count 4.39 M/uL Hemoglobin 14.2 g/dL Hematocrit 41.8 % Mean Corpuscular Volume 95.2 fL Mean Corpuscular Hemoglobin 32.3 pg Mean Corpuscular Hemoglobin Concent 34.0 g/dl Platelet Count 189 K/uL Mean Platelet Volume 10.5 fL Neutrophils (%) (Auto) 39.4 % Lymphocytes (%) (Auto) 43.1 % Monocytes (%) (Auto) 12.1 % Eosinophils (%) (Auto) 4.3 % Basophils (%) (Auto) 0.7 % Neutrophils # (Auto) 3.62 K/uL Lymphocytes # (Auto) 3.95 K/uL Monocytes # (Auto) 1.11 K/uL Eosinophils # (Auto) 0.39 K/uL Basophils # (Auto) 0.06 K/uL RDW Standard Deviation 49.3 fL RDW Coefficient of Variation 14.2 % Immature Granulocyte % (Auto) 0.4 % Immature Granulocyte # (Auto) 0.04 K/uL Prothrombin Time 10.6 SECONDS Prothromb Time International Ratio 1.0 Activated Partial Thromboplast Time 25.6 SECONDS Partial Thromboplastin Ratio 1.0 Sodium Level 141 mmol/L Potassium Level 4.2 mmol/L Chloride Level 110 mmol/L Carbon Dioxide Level 23 mmol/L Anion Gap 8.0 mmol/L Blood Urea Nitrogen 11 mg/dl Creatinine 0.93 mg/dl Est Creatinine Clear Calc Drug Dose 75.0 ml/min Estimated GFR () 88.9 Estimated GFR (Non- 76.7 BUN/Creatinine Ratio 11.8 Random Glucose 246 mg/dl Calcium Level 8.8 mg/dl Magnesium Level 1.8 mg/dl Total Bilirubin 0.3 mg/dl Direct Bilirubin mg/dl Aspartate Amino Transf (AST/SGOT) 21 U/L Alanine Aminotransferase (ALT/SGPT) 25 U/L Alkaline Phosphatase 74 U/L Total Creatine Kinase 173 U/L Creatine Kinase MB 3.3 ng/ml Creatine Kinase MB Ratio 1.9 Total Protein 7.3 gm/dl Albumin 3.5 gm/dl Chemistry Specimen Hemolysis Bedside Troponin I < 0.030 ng/ml < 0.030 ng/ml Bedside Glucose 206 mg/dl Test 12/30/16 08:43 12/30/16 11:48 12/30/16 13:20 12/30/16 16:40 White Blood Count 9.44 K/uL Red Blood Count 4.45 M/uL Hemoglobin 13.9 g/dL Hematocrit 42.1 % Mean Corpuscular Volume 94.6 fL Mean Corpuscular Hemoglobin 31.2 pg Mean Corpuscular Hemoglobin Concent 33.0 g/dl Platelet Count 185 K/uL Mean Platelet Volume 10.9 fL Neutrophils (%) (Auto) 45.0 % Lymphocytes (%) (Auto) 34.0 % Monocytes (%) (Auto) 15.7 % Eosinophils (%) (Auto) 4.6 % Basophils (%) (Auto) 0.4 % Neutrophils # (Auto) 4.25 K/uL Lymphocytes # (Auto) 3.21 K/uL Monocytes # (Auto) 1.48 K/uL Eosinophils # (Auto) 0.43 K/uL Basophils # (Auto) 0.04 K/uL RDW Standard Deviation 49.3 fL RDW Coefficient of Variation 14.2 % Immature Granulocyte % (Auto) 0.3 % Immature Granulocyte # (Auto) 0.03 K/uL Prothrombin Time 11.4 SECONDS Prothromb Time International Ratio 1.1 Activated Partial Thromboplast Time 26.4 SECONDS Partial Thromboplastin Ratio 1.0 Bedside Glucose 202 mg/dl 160 mg/dl Total Creatine Kinase 146 U/L Creatine Kinase MB 2.6 ng/ml Creatine Kinase MB Ratio 1.8 Troponin I 0.029 ng/ml Diagnostic Imaging: TTE: * Aortic valve sclerosis mild, without significant aortic valvular stenosis. * There is mild concentric left ventricular hypertrophy. * Ejection Fraction = 55-60%. * The left ventricular wall motion is normal. * The right ventricular systolic function is normal. * The left atrium is moderately dilated. * The right atrium is moderately dilated. * There is moderate mitral regurgitation. There is mild tricuspid regurgitation Assessment & Plan 81 yoM presents with recurrent chest pain after recent cath revealed obstructive CAD. 1. Chest pain with SOB and angina. Medication changes per Cardiology, reassess in am. cont tele. 2. Paroxysmal atrial fibrillation on anticoagulation. Cont with warfarin recently started. Trend INR. 3. Diabetes type 2 on insulin. cont insulin while hospitalized 4. Hypertension. -controlled, cont current meds with adjustments per cards. 5. Hyperlipidemia. Continue current dose of statin. 6. Coronary artery disease status post coronary artery bypass graft -management per Cards. DVT proph: coumadin Full Code Dispo-to home in am. DO Naheed Stanton Hospitalist Consultants: Daniel. Current Inpatient Medications: Current Inpatient Medications Medications (Trade) Dose Ordered Sig/Hammad Route Start Time Stop Time Status Last Admin Dose Admin Acetaminophen (Tylenol Tab) 650 mg Q4H PRN PO 12/30/16 07:00 01/29/17 06:59 Ondansetron HCl (Zofran Inj) 4 mg Q6H PRN IV 12/30/16 07:00 01/29/17 06:59 Nitroglycerin (Nitrostat Tab) 0.4 mg UD PRN SL 12/30/16 07:00 01/29/17 06:59 Aspirin (Ecotrin Tab) 81 mg QAM PO 12/30/16 09:00 01/29/17 08:59 12/30/16 08:29 81 MG Atorvastatin Calcium (Lipitor Tab) 40 mg DAILY PO 12/30/16 09:00 01/29/17 08:59 12/30/16 08:30 40 MG Cholecalciferol (Vitamin D Tab) 1,000 inter.unit DAILY PO 12/30/16 09:00 01/29/17 08:59 12/30/16 08:29 1,000 INTER.UNIT Furosemide (Lasix Tab) 20 mg DAILY PO 12/30/16 09:00 01/29/17 08:59 12/30/16 08:30 20 MG Insulin Glargine (Lantus Solostar Pen) 32 units QAM SQ 12/30/16 09:00 01/29/17 08:59 12/30/16 08:38 32 UNITS Losartan Potassium (coZAAR TAB) 50 mg DAILY PO 12/30/16 09:00 01/29/17 08:59 12/30/16 08:31 50 MG Ticagrelor (Brilinta Cap) 90 mg BID PO 12/30/16 09:00 01/29/17 08:59 12/30/16 09:00 90 MG Warfarin Sodium (Coumadin Tab) 5 mg DAILY@1600 PO 12/30/16 16:00 01/29/17 15:59 Future Hold Miscellaneous (Iv Fluids Completed) 1 ea PRN PRN N/A 12/30/16 07:15 12/30/17 07:14 Glucose (Glucose 40% Gel) 15-30 GRAMS 15 GRAMS... UD PRN PO 12/30/16 08:00 01/29/17 07:59 Glucose (Glucose Chew Tab) 4-8 Tablets 4 Tabl... UD PRN PO 12/30/16 08:00 01/29/17 07:59 Dextrose (Dextrose 50% 50ML Syringe) 25-50ML OF 50% DW IV FOR... UD PRN IV 12/30/16 08:00 01/29/17 07:59 Glucagon (Glucagon Inj) 1 mg UD PRN SQ 12/30/16 08:00 01/29/17 07:59 Insulin Aspart (novoLOG ASPART) SLIDING SCALE ACHS SC 12/30/16 08:00 01/29/17 07:59 12/30/16 12:39 1 UNITS Heparin Sodium (Porcine) (Heparin Sq 5000 Unit/0.5ml) 5,000 unit Q8 SQ 12/30/16 14:00 01/29/17 13:59 Amlodipine Besylate (Norvasc Tab) 5 mg QAM PO 12/31/16 09:00 01/29/17 08:59 Metoprolol Succinate (Toprol Xl Tab) 50 mg BID PO 12/30/16 21:00 01/29/17 08:59 Nitroglycerin (Nitroglycerin 2% Oint) 0.5 inch Q6H EXT 12/30/16 12:00 01/29/17 11:59 12/30/16 12:37 0.5 INCH
[2017-01-12] MEDS ORDERED: PSYL58.636 (15:04)
[2017-01-12] MEDS ORDERED: METO25TA3 PO (15:04)
[2017-01-12] MEDS ORDERED: CLIN300C2 PO (15:04)
[2017-01-12] MEDS ORDERED: TICA1TAB PO (15:04)
== END 2016-12-31 13:31 | disposition home or self-care (01) ==
LOC: C.EDB 01:26 → C.MED 07:00 → ENRESERV 07:11
PROVIDERS: ADMIT Internal Medicine; ATTEND Hospitalist
DX: I25.119 Atherosclerotic heart disease of native coronary artery with unspecified angina pectoris (principal); I50.22 Chronic systolic (congestive) heart failure; I11.0 Hypertensive heart disease with heart failure; I49.5 Sick sinus syndrome; I48.0 Paroxysmal atrial fibrillation; E11.9 Type 2 diabetes mellitus without complications; E78.5 Hyperlipidemia, unspecified; M10.9 Gout, unspecified; Z85.07 Personal history of malignant neoplasm of pancreas; Z95.5 Presence of coronary angioplasty implant and graft; Z95.1 Presence of aortocoronary bypass graft; Z95.0 Presence of cardiac pacemaker; Z79.01 Long term (current) use of anticoagulants; Z79.4 Long term (current) use of insulin; Z79.82 Long term (current) use of aspirin; Z79.899 Other long term (current) drug therapy; Z87.891 Personal history of nicotine dependence

== ENCOUNTER 2017-04-06 00:28 | Emergency (ER) | payer OTHER ==
[~2017-04-06] VITALS: Ht 180.3 cm; Wt 107.0 kg
[~2017-04-06 00:28] MED LIST changes: -ASPEC81 PO; +ASPI81TA28 PO; +ATOR-24 PO; -BRL90 PO; +CLIN300C2 PO; +CMD/25 PO; +ISOS30TA3 PO; -LPT/40 PO; +METO-452 PO; -OXYC1TAB3 PO; +PRT40 PO; -TPRSR25 PO; +WARF5TAB90 PO
[2017-04-06 00:34] VITALS: TEMP 36.5; Ht 180.3 cm; Wt 107.0 kg
[2017-04-06 00:40] VITALS: O2SAT 94
[2017-04-06] MEDS ORDERED: REPA1TAB10 PO (00:40)
[2017-04-06] MEDS ORDERED: ASPIRIN 81 MG CHEW PO STA (00:47)
--- NOTE | 2017-04-06 01:26 | EMERGENCY ROOM VISIT NOTE ---
History Report prepared by Carmen: Melisa Burton Under the Supervision of: Dr. Patience Pina M.D. First contact with patient: 00:37 Chief Complaint: CHEST PAIN Stated Complaint: CHEST PAIN Nursing Triage Summary: chest pain started 2300. was just admitted tuesday for same thing History of Present Illness The patient is an 81 year old male who presents to the Emergency Room with complaints of resolved chest pain starting 2300 today. The patient had just gone to bed when the pain started. It is located in the center of his chest. It does not radiate to his back, arm, or jaw. He states that this is the same chest pain that he always has. He tried taking 3 nitro to no relief. He took the last nitro around 0000. He was told by his shingle cutter to come to the ED if 3 of nitro does not relieve the pain. He is currently not having any more pain. He currently denies any fever, cough, SOB, or leg swelling. He notes that he does get SOB at times. The patient had this pain 4 days ago also. It started when he was going to bed. It resolved after 2 nitro. He was admitted last week for the same chest pain. He passed a stress test and had normal troponins. He has a history of CAD. He has had a quadruple bypass and 3-4 stents. He last had a catheterization in December. He is on Coumadin for atrial fibrillation. He also has a pacemaker. He has a history of diabetes. He has not had aspirin today. Source of History: patient, family Onset: 2300 Position: chest (mid) Quality: other (pain) Timing: resolved Associated Symptoms: No fevers, No cough, No SOB, No back pain Note: Pt denies leg swelling, arm pain, jaw pain. Review of Systems See HPI for pertinent positives & negatives. A total of 10 systems reviewed and were otherwise negative. Past Medical & Surgical Medical Problems: (1) ACS (acute coronary syndrome) (2) CAD (coronary artery disease) (3) Chest pain (4) Chronic anticoagulation (5) DM type 2 (diabetes mellitus, type 2) (6) Dyslipidemia (7) Gout (8) History of cerebral hemorrhage (9) HTN (hypertension) (10) Pacemaker (11) Pancreatic cancer (12) Paroxysmal atrial fibrillation (13) Sinus node dysfunction (14) SSS (sick sinus syndrome) Surgical Problems: (1) H/O arthroscopic knee surgery (2) H/O colonoscopy (3) H/O esophagogastroduodenoscopy (4) H/O inguinal hernia repair (5) History of pancreatectomy (6) S/P CABG x 1 (7) S/P coronary artery stent placement (8) S/P splenectomy (9) S/P tonsillectomy and adenoidectomy Family History Diabetes mellitus FH: heart disease FH: hypertension Social History Smoking Status: Former Smoker Drug Use: none Marital Status: Housing Status: lives alone Occupation Status: retired Current/Historical Medications Scheduled Amlodipine Besylate (Amlodipine Besylate), 5 MG PO BID17 Aspirin (Aspirin Ec), 81 MG PO QAM Atorvastatin (Lipitor), 40 MG PO DAILY Cholecalciferol (Vitamin D 1000 Unit), 1,000 INTER.UNIT PO DAILY Furosemide (Lasix), 20 MG PO DAILY Insulin Glargine (Lantus Solostar), 32 UNITS SQ QAM Isosorbide Mononitrate Ext Rel (Imdur Ext Rel), 30 MG PO DAILY Losartan Potassium (Cozaar), 50 MG PO DAILY Metformin Hcl (Glucophage), 1,000 MG PO BID Metoprolol Succinate (Toprol Xl), 1 TAB PO BID Pantoprazole (Pantoprazole Sodium), 40 MG PO QAM Repaglinide (Repaglinide), 4 MG PO TID Warfarin Sod (Coumadin), 1.25 MG PO [id number] Warfarin Sodium (Coumadin), 5 MG PO 3XWK Scheduled PRN Clindamycin Hcl (Cleocin), 2 CAP PO UD PRN for prior to dental work Nitroglycerin (Nitrostat), 0.4 MG UT UD PRN for Chest Pain Allergies Coded Allergies: Penicillins (Verified Allergy, Intermediate, HIVES, 03/27/17) Clopidogrel (Verified Allergy, Mild, 03/27/17) Physical Exam Vital Signs Date Time Temp Pulse Resp B/P (MAP) Pulse Ox O2 Delivery O2 Flow Rate FiO2 04/06/17 04:06 65 04/06/17 04:05 63 20 100/68 94 Room Air 04/06/17 03:34 64 16 122/72 93 Room Air 04/06/17 02:11 62 20 122/75 92 Room Air 04/06/17 01:05 67 16 121/73 91 Room Air 04/06/17 00:40 72 04/06/17 00:40 94 Room Air 04/06/17 00:34 36.5 72 18 147/84 94 Room Air Physical Exam Vital signs reviewed. General: Well-appearing male, in no significant distress. HEENT: No scleral icterus, PERRLA, neck supple. Atraumatic. Cardiovascular: Regular rate and rhythm, no extra sounds. Pulmonary: Clear to auscultation bilaterally, normal work of breathing. Abdomen: Soft, nontender, nondistended, positive bowel sounds. Musculoskeletal: Atraumatic, no peripheral edema. Neurologic: Patient awake alert and oriented x 3 Skin: Warm, dry, no rash Medical Decision & Procedures ER Provider Diagnostic Interpretation: X-ray results as stated below per interpretation by me: Chest X-ray: Pacemaker in place. Postsurgical change to the mediastinum. Largely clear. No evidence of failure or infiltrate. Laboratory Results 04/06/17 00:40 Red Blood Count 4.28, Mean Corpuscular Volume 94.2, Mean Corpuscular Hemoglobin 32.2, Mean Corpuscular Hemoglobin Concent 34.2, Mean Platelet Volume 10.7, Neutrophils (%) (Auto) 33.4, Lymphocytes (%) (Auto) 43.9, Monocytes (%) (Auto) 15.2, Eosinophils (%) (Auto) 6.6, Basophils (%) (Auto) 0.8, Neutrophils # (Auto ) 3.36, Lymphocytes # (Auto) 4.42, Monocytes # (Auto) 1.53, Eosinophils # (Auto ) 0.66, Basophils # (Auto) 0.08 04/06/17 00:40 Test 04/06/17 00:40 04/06/17 02:30 White Blood Count 10.06 K/uL (4.8-10.8) Red Blood Count 4.28 M/uL (4.7-6.1) Hemoglobin 13.8 g/dL (14.0-18.0) Hematocrit 40.3 % (42-52) Mean Corpuscular Volume 94.2 fL (80-100) Mean Corpuscular Hemoglobin 32.2 pg (25-34) Mean Corpuscular Hemoglobin Concent 34.2 g/dl (32-36) Platelet Count 202 K/uL (130-400) Mean Platelet Volume 10.7 fL (7.4-10.4) Neutrophils (%) (Auto) 33.4 % Lymphocytes (%) (Auto) 43.9 % Monocytes (%) (Auto) 15.2 % Eosinophils (%) (Auto) 6.6 % Basophils (%) (Auto) 0.8 % Neutrophils # (Auto) 3.36 K/uL (1.4-6.5) Lymphocytes # (Auto) 4.42 K/uL (1.2-3.4) Monocytes # (Auto) 1.53 K/uL (0.11-0.59) Eosinophils # (Auto) 0.66 K/uL (0-0.5) Basophils # (Auto) 0.08 K/uL (0-0.2) RDW Standard Deviation 50.7 fL (36.4-46.3) RDW Coefficient of Variation 14.8 % (11.5-14.5) Immature Granulocyte % (Auto) 0.1 % Immature Granulocyte # (Auto) 0.01 K/uL (0.00-0.02) Prothrombin Time 14.5 SECONDS (9.0-12.0) Prothromb Time International Ratio 1.3 (0.9-1.1) Activated Partial Thromboplast Time 28.4 SECONDS (21.0-31.0) Partial Thromboplastin Ratio 1.1 Anion Gap 12.0 mmol/L (3-11) Est Creatinine Clear Calc Drug Dose 70.7 ml/min Estimated GFR () 79.5 Estimated GFR (Non- 68.6 BUN/Creatinine Ratio 18.5 (10-20) Calcium Level 8.8 mg/dl (8.5-10.1) Total Bilirubin 0.5 mg/dl (0.2-1) Direct Bilirubin 0.1 mg/dl (0-0.2) Aspartate Amino Transf (AST/SGOT) 34 U/L (15-37) Alanine Aminotransferase (ALT/SGPT) 42 U/L (12-78) Alkaline Phosphatase 66 U/L (45-117) Total Protein 7.4 gm/dl (6.4-8.2) Albumin 3.9 gm/dl (3.4-5.0) Troponin I 0.019 ng/ml (0-0.045) Laboratory results per my review. Medications Administered Medications (Trade) Dose Ordered Sig/Hammad Route Start Time Stop Time Status Last Admin Dose Admin Aspirin (Aspirin Chew) 324 mg NOW STAT PO 04/06/17 00:47 04/06/17 00:51 DC 04/06/17 01:04 324 MG ECG Indication: chest pain Rate (beats per minute): 75 Rhythm: other (atrially sensed, ventricularly paced) Findings: no acute ischemic change, other (poor quality baseline for interpretation, prolonged AV conduction) Comparison ECG Date: 27-Mar-2017 Change: Atrial pacing is no longer present, otherwise no significant change. ED Course 0046: Past medical records reviewed. The patient was evaluated in room A11B. A complete history and physical examination was performed. 0047: Aspirin 324 mg PO. 0410: Upon reevaluation, the patient appeared to have improvement of his symptoms. I discussed findings with him. He verbalized agreement of the treatment plan. He was discharged home. Medical Decision Differential diagnosis: Acute coronary syndrome, pulmonary embolus, aortic dissection, musculoskeletal pain, pneumonia, pleural effusion, pneumothorax This patient was evaluated and appeared to be in no significant distress. Physical examination is fairly unrevealing. The patient has recently had a hospitalization related to this very similar episodic chest pain. It does not seem to be related to exertion. EKG was obtained and reveals no evidence of acute ischemia, there is no significant change from previous. Patient does have an atrially sensed ventricular paced rhythm. Cardiac enzymes are negative 2. The patient was reevaluated and pain-free. Chest x-ray reveals no evidence of focal lung consolidation or failure to my review. The patient follows closely with Dr. Fairbanks of cardiology. He was advised to contact their office later today for follow-up plan. The patient will return to the ER immediately for worsening of symptoms or any medical concerns. Medication Reconcilliation Current Medication List: was personally reviewed by me Blood Pressure Screening Patient's blood pressure: Elevated blood pressure No urgent referral needed. Impression Primary Impression: Atypical chest pain Additional Impression: Coronary artery disease Scribe Attestation The scribe's documentation has been prepared under my direction and personally reviewed by me in its entirety. I confirm that the note above accurately reflects all work, treatment, procedures, and medical decision making performed by me. Departure Information Dispostion Home / Self-Care Referrals Melo Carlos M.D. (PCP) Gadiel Fairbanks M.D. Forms HOME CARE DOCUMENTATION FORM, IMPORTANT VISIT INFORMATION Patient Instructions My [facility] Additional Instructions Diagnosis: Atypical chest pain, coronary artery disease. Please continue your medications as prescribed. Contact Dr. Fairbanks's office today and let them know you were in the emergency department. They may have further recommendations for you. Follow-up with cardiology and or your primary care physician within the week for reevaluation. Return to the ER for worsening of symptoms or any medical concerns. Problem Qualifiers
[2017-04-06 01:56] LABS: BASO % 0.8 %; BASO ABS # 0.08 K/uL (0-0.2); COMPLETE YES; EOS % 6.6 %; HEMATOCRIT 40.3 % (42-52); IG% 0.1 %; LYMPH % 43.9 %; LYMPH ABS # 4.42 K/uL (1.2-3.4); MEAN CELL VOLUME 94.2 fL (80-100); MEAN CORPUSCULAR HEMOGLOBIN 32.2 pg (25-34); MEAN CORPUSCULAR HGB CONC 34.2 g/dl (32-36); MEAN PLATELET VOLUME 10.7 fL (7.4-10.4); MONO % 15.2 %; NEUT % 33.4 %; PLATELET COUNT 202 K/uL (130-400); RED BLOOD COUNT 4.28 M/uL (4.7-6.1); WHITE BLOOD COUNT 10.06 K/uL (4.8-10.8)
[2017-04-06 02:03] LABS: INR 1.3 (0.9-1.1); PARTIAL THROMBOPLASTIN RATIO 1.1; PROTHROMBIN TIME (PATIENT) 14.5 SECONDS (9.0-12.0)
[2017-04-06 02:23] LABS: BUN/CREATININE RATIO 18.5 (10-20); CALCIUM 8.8 mg/dl (8.5-10.1); CREATININE 1.02 mg/dl (0.60-1.40)
[2017-04-06 02:26] LABS: POTASSIUM 4.1 mmol/L (3.5-5.1)
[2017-04-06 04:05] VITALS: BP 100/68; O2SAT 94
[2017-04-06 04:06] VITALS: PULSE 65
--- NOTE | 2017-04-06 06:56 | DIAGNOSTIC IMAGING REPORT ---
CHEST 2 VIEWS ROUTINE CLINICAL HISTORY: Chest pain. COMPARISON STUDY: Chest radiograph March 27, 2017. FINDINGS: A dual lead left pacemaker, median sternotomy wires and mediastinal surgical clips are noted. Mild cardiomegaly is unchanged. There is no evidence of pulmonary edema. No pneumothorax or pleural effusion is present. Lung volumes are mildly increased. IMPRESSION: No acute cardiopulmonary findings. Electronically signed by: Wojciech Robbins M.D. 04/06/2017 6:55 AM Dictated Date/Time: 04/06/2017 6:54 AM
== END 2017-04-06 04:20 | disposition home or self-care (01) ==
LOC: C.EDB 00:29 → C.EDA 04:20
DX: R07.89 Other chest pain (principal); I25.10 Atherosclerotic heart disease of native coronary artery without angina pectoris; I48.0 Paroxysmal atrial fibrillation; E11.9 Type 2 diabetes mellitus without complications; E78.5 Hyperlipidemia, unspecified; I10 Essential (primary) hypertension; Z95.0 Presence of cardiac pacemaker; Z85.07 Personal history of malignant neoplasm of pancreas; Z87.891 Personal history of nicotine dependence; Z95.1 Presence of aortocoronary bypass graft; Z98.61 Coronary angioplasty status; Z90.89 Acquired absence of other organs; Z98.890 Other specified postprocedural states; Z82.49 Family history of ischemic heart disease and other diseases of the circulatory system; Z83.3 Family history of diabetes mellitus; Z79.01 Long term (current) use of anticoagulants; Z79.4 Long term (current) use of insulin; Z79.84 Long term (current) use of oral hypoglycemic drugs; Z79.82 Long term (current) use of aspirin; Z79.899 Other long term (current) drug therapy

== ENCOUNTER 2017-04-08 00:36 | Emergency (ER) | payer OTHER ==
[~2017-04-08] VITALS: Ht 180.3 cm; Wt 108.6 kg
[~2017-04-08 00:36] MED LIST changes: +REPA1TAB10 PO
[2017-04-08 00:42] VITALS: TEMP 36.9; Ht 180.3 cm; Wt 108.6 kg
[2017-04-08 00:46] VITALS: O2SAT 95
--- NOTE | 2017-04-08 00:58 | EMERGENCY ROOM VISIT NOTE ---
History Report prepared by Carmen: Marlen Kidd Under the Supervision of: Dr. Cristal Ko D.O. First contact with patient: 00:42 Chief Complaint: CHEST PAIN Stated Complaint: CHEST PAIN, REVISIT History of Present Illness The patient is a 81 year old male who presents to the Emergency Room with complaints of intermittent chest pain that started around 9:30pm last night. The patient rates his pain a 1/10 in severity. The patient notes he has also been having "jabbing" pain in his left shoulder. The patient has a pacemaker in place. He notes he had cardiac catheterization in December 2016 and the results looked clear. He last saw the PA at Dr. Fairbanks'krunal 4 days ago. The patient notes he was watching the football game last night and started experiencing the chest pain. He states he had decaf coffee this morning, dark chocolate early in the afternoon, and diet coke later in the afternoon. He also notes he had a frozen meal and apple slices with dinner around 7pm yesterday evening. The patient also reports he ate mints throughout the day. The patient denies any alcohol use today. He notes he previously had a mass removed from his pancreas and his spleen removed. 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 The patient states he is diabetic. Source of History: patient Onset: 9:30pm last night Position: chest Symptom Intensity: 1/10 Timing: intermittent Note: Additional symptoms: left shoulder pain. Review of Systems See HPI for pertinent positives & negatives. A total of 10 systems reviewed and were otherwise negative. Past Medical & Surgical Medical Problems: (1) ACS (acute coronary syndrome) (2) CAD (coronary artery disease) (3) Chest pain (4) Chronic anticoagulation (5) DM type 2 (diabetes mellitus, type 2) (6) Dyslipidemia (7) Gout (8) History of cerebral hemorrhage (9) HTN (hypertension) (10) Pacemaker (11) Pancreatic cancer (12) Paroxysmal atrial fibrillation (13) Sinus node dysfunction (14) SSS (sick sinus syndrome) Surgical Problems: (1) H/O arthroscopic knee surgery (2) H/O colonoscopy (3) H/O esophagogastroduodenoscopy (4) H/O inguinal hernia repair (5) History of pancreatectomy (6) S/P CABG x 1 (7) S/P coronary artery stent placement (8) S/P splenectomy (9) S/P tonsillectomy and adenoidectomy Family History Diabetes mellitus FH: heart disease FH: hypertension Social History Smoking Status: Former Smoker Drug Use: none Marital Status: Housing Status: lives alone Occupation Status: retired Current/Historical Medications Scheduled Amlodipine (Norvasc), 5 MG PO BID Aspirin (Aspirin Ec), 81 MG PO QAM Atorvastatin (Lipitor), 40 MG PO DAILY Cholecalciferol (Vitamin D 1000 Unit), 1,000 INTER.UNIT PO DAILY Furosemide (Lasix), 20 MG PO DAILY Insulin Glargine (Lantus Solostar), 32 UNITS SQ QAM Isosorbide Mononitrate Ext Rel (Imdur Ext Rel), 30 MG PO DAILY Losartan Potassium (Cozaar), 50 MG PO DAILY Metformin Hcl (Glucophage), 1,000 MG PO BID Metoprolol Succinate (Toprol Xl), 50 MG PO BID Pantoprazole (Protonix), 40 MG PO QAM Repaglinide (Repaglinide), 4 MG PO TID Warfarin Sod (Coumadin), 1.25 MG PO 4XWK Warfarin Sodium (Coumadin), 5 MG PO 3XWK Scheduled PRN Clindamycin Hcl (Cleocin), 2 CAP PO UD PRN for prior to dental work Nitroglycerin (Nitrostat), 0.4 MG UT UD PRN for Chest Pain Allergies Coded Allergies: Penicillins (Verified Allergy, Intermediate, HIVES, 03/27/17) Clopidogrel (Verified Allergy, Mild, 03/27/17) Physical Exam Vital Signs Date Time Temp Pulse Resp B/P (MAP) Pulse Ox O2 Delivery O2 Flow Rate FiO2 04/08/17 02:21 69 18 145/88 95 Room Air 04/08/17 02:06 65 21 95 04/08/17 01:36 68 20 94 04/08/17 01:06 70 20 96 04/08/17 00:48 97 Room Air 04/08/17 00:46 95 Room Air 04/08/17 00:45 112 04/08/17 00:43 157/98 04/08/17 00:42 36.9 75 20 157/98 94 Room Air Physical Exam HEENT: Head - normocephalic and atraumatic Pupils are equal, round, and reactive to light. Extraocular eye muscles are intact, and sclera are anicteric. Nose - moist nasal mucosa without discharge. Mouth - moist buccal mucosa. Oropharynx is nonerythematous and there is no tonsillar exudate or edema noted. Neck: Supple; no JVD, nuchal rigidity, cervical lymphadenopathy, or auscultated bruits. Heart: Regular rate and rhythm. There is a normal S1 and S2 with no murmurs, clicks, or gallops appreciated. Lungs: Clear to auscultation bilaterally with no wheezes, rales, or rhonchi. Abdomen: Epigastric pain with palpation. There are no palpable pulsatile masses or hepatosplenomegaly. There is no guarding, rigidity, or rebound noted. Extremities: No evidence of cyanosis, clubbing, or edema. There are easily palpable peripheral pulses. Skin: warm and dry with good turgor and no rashes. Medical Decision & Procedures Laboratory Results Test 04/08/17 01:27 Bedside Troponin I < 0.030 ng/ml (0-0.045) Laboratory results per my review. ECG Indication: chest pain Rate (beats per minute): 77 Rhythm: other (paced rhythm) Findings: no acute ischemic change, no ectopy ED Course 0042: Past medical records reviewed. The patient was evaluated in room A9B. A complete history and physical exam was performed. A twelve-lead EKG was obtained as described above. The patient had a point of care troponin obtained. 0213: I reassessed the patient and he is feeling better. He denies any return of his symptoms. The patient will be discharged home. Medical Decision The patient is a 81 year old male who presents to the ED with chest pain. Differential diagnosis includes GERD, gastritis, unstable angina, esophagitis, NSTEMI. Lab results show: POC troponin less than 0.030 I spent a great of time reviewing the patient's records from his recent emergency department visits as well as having lengthy discussion with the patient and his family at the bedside. The patient has an extensive cardiac history with his most recent cardiac catheterization in December. The patient needs to have recurrent episodes of chest discomfort which have brought him to the emergency department. Today's episode resulted in him taking a total of 3 sublingual nitroglycerin which had no impact on his chest discomfort. We had a lengthy discussion about the possibility of GERD as a cause or source of his chest discomfort. I also noted that the patient's INR was subtherapeutic from his visit to the ER just 2 days ago. I've asked him to increase the dose of Coumadin over the next 3 days. Patient has a scheduled follow-up appointment with cardiology next week. I've encouraged him to keep that appointment. I suggested he continue to take his Protonix and change his dietary habits. I recommended that he stop eating dark chocolate, stop consuming alcoholic beverages and limit his caffeine intake. The patient was told to return to the emergency department if he developed any worsening chest discomfort, shortness breath, nausea/vomiting. Medication Reconcilliation Current Medication List: was personally reviewed by me Blood Pressure Screening Patient's blood pressure: Elevated blood pressure Blood pressure disposition: Referred to PCP Impression Primary Impression: Epigastric pain Additional Impression: Substernal chest pain Scribe Attestation The scribe's documentation has been prepared under my direction and personally reviewed by me in its entirety. I confirm that the note above accurately reflects all work, treatment, procedures, and medical decision making performed by me. Departure Information Dispostion Home / Self-Care Referrals Melo Carlos M.D. (PCP) Patient Instructions [facility] Additional Instructions Avoid chocolate, caffeine, and alcohol. Consider using tums or mylanta for episodes of chest pain. Increase dose of coumadin to 5mg a day for a total of 3 days then back down to your ususal dose. Have INR rechecked next week. Problem Qualifiers
[2017-04-08] MEDS ORDERED: AMLO-110 PO (01:21)
[2017-04-08] MEDS ORDERED: PANT1TAB48 PO (01:36)
[2017-04-08 02:21] VITALS: BP 145/88; PULSE 69; O2SAT 95
== END 2017-04-08 02:30 | disposition home or self-care (01) ==
LOC: C.EDB 00:37 → C.EDA 02:30
DX: R07.2 Precordial pain (principal); R10.13 Epigastric pain; Z95.0 Presence of cardiac pacemaker; Z90.81 Acquired absence of spleen; E11.9 Type 2 diabetes mellitus without complications; I25.10 Atherosclerotic heart disease of native coronary artery without angina pectoris; Z79.01 Long term (current) use of anticoagulants; Z79.82 Long term (current) use of aspirin; Z79.899 Other long term (current) drug therapy; E78.5 Hyperlipidemia, unspecified; M10.9 Gout, unspecified; I10 Essential (primary) hypertension; I48.0 Paroxysmal atrial fibrillation; Z86.73 Personal history of transient ischemic attack (TIA), and cerebral infarction without residual deficits; Z95.1 Presence of aortocoronary bypass graft; Z95.5 Presence of coronary angioplasty implant and graft; Z83.3 Family history of diabetes mellitus; Z82.49 Family history of ischemic heart disease and other diseases of the circulatory system; Z87.891 Personal history of nicotine dependence; Z85.07 Personal history of malignant neoplasm of pancreas

== ENCOUNTER → 2017-05-30 | Day surgery (SDC) | payer OTHER ==
[2017-04-27 13:08] VITALS: Ht 180.3 cm; Wt 109.1 kg
[~2017-05-30] VITALS: Ht 180.3 cm; Wt 109.1 kg
[~2017-05-30] MED LIST changes: +500ML BSS 0.3ML EPI 1:1000PF IRRIG ONE; +ACETAMINOPHEN 325 MG TAB PO PRN; +AMLO-110 PO; +AMVISC PLUS 0.8ML SYRINGE INT OCU ONE; +ATROPINE SULFATE 0.1 MG/ML 5ML SYR IV PRN; +BRIMONIDINE TART 0.2% OP SOLN PER DROP CHARGE ONE; +BRIMONIDINE TARTRATE 0.2% 5ML ONE; +BSS FLUSH ONE; +ENDOCOAT 0.85ML SYRINGE INT OCU ONE; +EpHEDrine SULFATE INJ 50 MG/ML AMP IV PRN; +EpINEphrine INJ 1MG/ML AMP 1 MG/ML AMP ONE; +LACTATED RINGER'S 1000ML 500 ML IV SCH; +LIDOCAINE 4% OP SOLN DROP CHARGE ONE; +LIDOCAINE 4% OP SOLN DROP CHARGE OPL SCH; +LIDOCAINE HCL 1% MPF 2 ML VIAL ONE; +MIDAZOLAM HCL 1 MG/ML 2ML VIAL ONE; +MOXIFLOXACIN OPH SOLN PER DROP CHARGE ONE; -NRV5 PO; +ONDANSETRON INJ 2 MG/ML 2 ML VIAL IV PRN; +PANT1TAB3 PO; +POVIDONE-IODINE OP SOLN 30 ML BTL ONE; +PROPARACAINE 0.5% OP SOLN PER DROP CHARGE OPL SCH; -PRT40 PO; +TOBRAMYCIN/DEXAMETHASONE OPH OINT PER APPLN CHARGE ONE
[2017-05-30] MEDS: PHENYLEPHRINE HCL 2.5% OP SOLN PER DROP CHARGE OPL SCH ×2 (06:46→06:52)
[2017-05-30] MEDS: TROPICAMIDE 1% OP SOLN PER DROP CHARGE OPL SCH ×2 (06:47→06:53)
[2017-05-30] MEDS: CYCLOPENTOLATE HCL 1% OP SOLN PER DROP CHARGE OPL SCH ×2 (06:48→06:53)
[2017-05-30] MEDS: KETOROLAC 0.5% OP SOLN PER DROP CHARGE OPL SCH ×2 (06:49→06:54)
[2017-05-30] MEDS: MOXIFLOXACIN OPH SOLN PER DROP CHARGE OPL SCH ×2 (06:50→07:01)
--- NOTE | 2017-05-30 06:55 | History & Physical Bridge - SC ---
H&P Re-Evaluation Bridge Note: I have examined the patient, reviewed the History & Physical and in the interval since the performance of the History & Physical I have noted the following changes of clinical significance: No changes noted
--- NOTE | 2017-05-30 07:32 | [facility] Operative Report ---
Operative Report Operative Date May 30, 2017. Pre-Operative Diagnosis Cataract left eye Post-Operative Diagnosis Same as pre-op Procedure(s) Performed Left Cataract Phacoemulsification With Intraocular Lens Implant Surgeon Retort Forker Surgeon(s) None Estimated Blood Loss Zero Findings cataract left eye Fluids (cc crystalloids) see anesthesia record Specimens None Drains none Anesthesia local with sedation Complication(s) None Disposition Recovery Room / PACU Implants mx60 21.0 Indications decreased vision left eye Description of Procedure After informed consent was obtained in the holding area the patient was wheeled back to the operating room where cardiac monitoring leads and oxygen by nasal cannula was administered by Anesthesia. Gentle IV sedation was given, and the patient's left eye was prepped and draped in usual sterile fashion. A wire lid speculum was placed into the left eye and the operating microscope was swung into position. Using 0.12 forceps and a Supersharp blade a paracentesis port was made 2 o'clock hours away from the 3 o'clock position of the patient's left eye. 1% non-preserved Lidocaine was then injected into the anterior chamber for anesthesia. A 2.0 mm keratotome blade was then used to make a shelved clear corneal incision at the 3 o'clock position of the left eye. Amvisc was injected into the anterior chamber and a cystotome and Utrata forceps were used to perform a curvilinear capsulorrhexis. BSS on a hydrodissection cannula was used to hydrodissect the lens nucleus away from the capsular bag. The phacoemulsification handpiece was then used in a stop and chop fashion to remove the lens nucleus. The irrigation and aspiration handpiece was then used to remove the residual cortical material. Amvisc was injected into the capsular bag and anterior chamber and a Bausch & Lomb MX60 21.0 Diopter intraocular lens was injected into the capsular bag. Irrigation and aspiration handpiece was used to remove the residual viscoelastic material. The wounds were hydrated and noted to be watertight. The wire lid speculum was removed from the eye. Vigamox, Brimonidine, and TobraDex ointment were placed on the eye and it was shielded. It should be noted that EndoCoat was used extensively during the case to protect the cornea endothelium. DISPOSITION: The patient tolerated the procedure well and was wheeled to the post anesthesia care unit in stable condition. I attest to the content of the Intraoperative Record and any orders documented therein. Any exceptions are noted below. I attest to the content of the Intraoperative Record and any orders documented therein. Any exceptions are noted below.
--- NOTE | 2017-05-30 07:33 | Discharge Instructions-SurgCtr ---
Discharge Instructions Date of Service May 30, 2017. Visit Reason for Visit: Left Cataract Discharge Discharge Diagnosis / Problem: cataract left eye Discharge Goals Goal(s): Improve function Medications Stopped Medications Name(s): metformin Activity Recommendations Activity Limitations: per Instructions/Follow-up section Lifting Limitations: no more than 5 pounds Anesthesia . Post Anesthesia Instructions: If you have had General Anesthesia or IV Sedation: * Do not drive today. * Resume driving when surgeon permits. * Do not make important decisions or sign legal documents today. * Call surgeon for: 1. Temperature elevations greater than 101 degrees F. 2. Uncontrollable pain. 3. Excessive bleeding. 4. Persistent nausea and vomiting. 5. Medication intolerance (nausea, vomiting or rash). * For nausea and vomiting use only clear liquids such as: tea, soda, bouillon until nausea subsides, then gradually increase diet as tolerated. * If you have any concerns or questions, call your surgeon's office. If physician is unavailable and it is an emergency, call 911 or go to the nearest emergency room. . Instructions / Follow-Up Instructions / Follow-Up ACTIVITY RECOMMENDATIONS: * Light activities * You may walk outside, read, watch television. * Mild irritation and blurred vision are common for the first few days, redness around the white part of the eye is common. MEDICATIONS: Resume previous medications unless instructed otherwise by your surgeon. Eye drops (today and tomorrow): Polytrim - one drop in operative eye every 2 hours while awake Prednisolone 1% - one drop in operative eye every 2 hours while awake Bromfenac - one drop in operative eye once daily SPECIAL CARE INSTRUCTIONS: * If any problems or concerns, please call Dr. Rodríguez's office at . * Keep plastic shield taped over eye to sleep at night. * Keep plastic shield taped over eye except to administer eye drops. * Keep plastic shield on until office visit the following day. FOLLOW UP VISIT: Follow-up with Dr. Rodríguez in the [place] office as scheduled. If not already scheduled, please call the office at . Diet Recommendations Home Diet: resume previous diet Procedures Procedures Performed: Left Cataract Phacoemulsification With Intraocular Lens Implant Pending Studies Studies pending at discharge: no Medical Emergencies . Who to Call and When: Medical Emergencies: If at any time you feel your situation is an emergency, please call 911 immediately. . Non-Emergent Contact Non-Emergency issues call your: Evaporator Supervisor . . "Provider Documentation" section prepared by Gregory Rodríguez. .
[2017-05-30 07:35] VITALS: TEMP 36.6
--- NOTE | 2017-05-30 07:55 | Anesthesia Progress Nt - [facility] ---
Anesthesia Post Op Note Date & Time May 30, 2017 at 07:55 Vital Signs Pain Intensity: 0 Vital Signs Past 12 Hours Date Time Temp Pulse Resp B/P (MAP) Pulse Ox O2 Delivery O2 Flow Rate FiO2 05/30/17 07:35 36.6 60 18 123/76 (92) 94 Room Air 05/30/17 06:39 36.6 61 20 113/68 (83) 94 Room Air Notes Mental Status: alert / awake / arousable, participated in evaluation Pt Amnestic to Procedure: Yes Nausea / Vomiting: adequately controlled Pain: adequately controlled Airway Patency, RR, SpO2: stable & adequate BP & HR: stable & adequate Hydration State: stable & adequate Anesthetic Complications: no major complications apparent
[2017-05-30 07:58] VITALS: BP 127/69; PULSE 60; O2SAT 94
== END | disposition home or self-care (01) ==
LOC: X.SURG 06:20
PROVIDERS: ATTEND Ophthalmology
DX: H26.9 Unspecified cataract (principal); I25.10 Atherosclerotic heart disease of native coronary artery without angina pectoris; I25.2 Old myocardial infarction; E11.9 Type 2 diabetes mellitus without complications; I10 Essential (primary) hypertension; I48.91 Unspecified atrial fibrillation; Z95.1 Presence of aortocoronary bypass graft; Z86.73 Personal history of transient ischemic attack (TIA), and cerebral infarction without residual deficits; Z85.07 Personal history of malignant neoplasm of pancreas; Z87.891 Personal history of nicotine dependence; Z96.641 Presence of right artificial hip joint; Z98.890 Other specified postprocedural states; Z79.4 Long term (current) use of insulin; Z79.01 Long term (current) use of anticoagulants; Z79.899 Other long term (current) drug therapy

== ENCOUNTER → 2017-06-06 | Day surgery (SDC) | payer OTHER ==
[2017-06-01 08:35] VITALS: Ht 180.3 cm; Wt 109.1 kg
[~2017-06-06] VITALS: Ht 180.3 cm; Wt 109.1 kg
[~2017-06-06] MED LIST changes: -BRIMONIDINE TARTRATE 0.2% 5ML ONE; -LIDOCAINE 4% OP SOLN DROP CHARGE OPL SCH; +LIDOCAINE 4% OP SOLN DROP CHARGE OPR SCH; -ONDANSETRON INJ 2 MG/ML 2 ML VIAL IV PRN; -PROPARACAINE 0.5% OP SOLN PER DROP CHARGE OPL SCH; +PROPARACAINE 0.5% OP SOLN PER DROP CHARGE OPR SCH
[2017-06-06] MEDS: PHENYLEPHRINE HCL 2.5% OP SOLN PER DROP CHARGE OPR SCH ×2 (07:43→07:48)
[2017-06-06] MEDS: TROPICAMIDE 1% OP SOLN PER DROP CHARGE OPR SCH ×2 (07:44→07:49)
[2017-06-06] MEDS: CYCLOPENTOLATE HCL 1% OP SOLN PER DROP CHARGE OPR SCH ×2 (07:45→07:50)
[2017-06-06] MEDS: KETOROLAC 0.5% OP SOLN PER DROP CHARGE OPR SCH ×2 (07:46→07:51)
[2017-06-06] MEDS: MOXIFLOXACIN OPH SOLN PER DROP CHARGE OPR SCH ×2 (07:47→08:00)
--- NOTE | 2017-06-06 09:12 | [facility] Operative Report ---
Operative Report Operative Date Jun 06, 2017. Pre-Operative Diagnosis Cataract Right Eye Post-Operative Diagnosis Same Procedure(s) Performed Right Cataract Phacoemulsification With Intraocular Lens Implant Surgeon Dr. Rodríguez Draw Fire Operator Surgeon(s) None Estimated Blood Loss 0 Findings cataract right eye Fluids (cc crystalloids) see anesthesia record Specimens None Drains none Anesthesia local with sedation Complication(s) None Disposition Recovery Room / PACU Implants mx60 22.0 Indications decreased vision right eye Description of Procedure After informed consent was obtained in the holding area the patient was wheeled back to the operating room where cardiac monitoring leads and oxygen by nasal cannula was administered by Anesthesia. Gentle IV sedation was given, and the patient's right eye was prepped and draped in usual sterile fashion. A wire lid speculum was placed into the right eye and the operating microscope was swung into position. Using 0.12 forceps and a Supersharp blade a paracentesis port was made 2 o'clock hours away from the 9 o'clock position of the patient's right eye. 1% non-preserved Lidocaine was then injected into the anterior chamber for anesthesia. A 2.0 mm keratotome blade was then used to make a shelved clear corneal incision at the 9 o'clock position of the right eye. Amvisc was injected into the anterior chamber and a cystotome and Utrata forceps were used to perform a curvilinear capsulorrhexis. BSS on a hydrodissection cannula was used to hydrodissect the lens nucleus away from the capsular bag. The phacoemulsification handpiece was then used in a stop and chop fashion to remove the lens nucleus. The irrigation and aspiration handpiece was then used to remove the residual cortical material. Amvisc was injected into the capsular bag and anterior chamber and a Bausch & Lomb MX60 22.0 Diopter intraocular lens was injected into the capsular bag. Irrigation and aspiration handpiece was used to remove the residual viscoelastic material. The wounds were hydrated and noted to be watertight. The wire lid speculum was removed from the eye. Vigamox, Brimonidine, and TobraDex ointment were placed on the eye and it was shielded. It should be noted that EndoCoat was used extensively during the case to protect the cornea endothelium. DISPOSITION: The patient tolerated the procedure well and was wheeled to the post anesthesia care unit in stable condition. I attest to the content of the Intraoperative Record and any orders documented therein. Any exceptions are noted below. I attest to the content of the Intraoperative Record and any orders documented therein. Any exceptions are noted below.
--- NOTE | 2017-06-06 09:14 | Discharge Instructions-SurgCtr ---
Discharge Instructions Date of Service Jun 06, 2017. Visit Reason for Visit: Right Cataract Discharge Discharge Diagnosis / Problem: cataract right eye Discharge Goals Goal(s): Improve function Medications Stopped Medications Name(s): METFORMIN HELD ON TUESDAY Activity Recommendations Activity Limitations: per Instructions/Follow-up section Lifting Limitations: no more than 5 pounds Anesthesia . Post Anesthesia Instructions: If you have had General Anesthesia or IV Sedation: * Do not drive today. * Resume driving when surgeon permits. * Do not make important decisions or sign legal documents today. * Call surgeon for: 1. Temperature elevations greater than 101 degrees F. 2. Uncontrollable pain. 3. Excessive bleeding. 4. Persistent nausea and vomiting. 5. Medication intolerance (nausea, vomiting or rash). * For nausea and vomiting use only clear liquids such as: tea, soda, bouillon until nausea subsides, then gradually increase diet as tolerated. * If you have any concerns or questions, call your surgeon's office. If physician is unavailable and it is an emergency, call 911 or go to the nearest emergency room. . Instructions / Follow-Up Instructions / Follow-Up ACTIVITY RECOMMENDATIONS: * Light activities * You may walk outside, read, watch television. * Mild irritation and blurred vision are common for the first few days, redness around the white part of the eye is common. MEDICATIONS: Resume previous medications unless instructed otherwise by your surgeon. Eye drops (today and tomorrow): Polytrim - one drop in operative eye every 2 hours while awake Prednisolone 1% - one drop in operative eye every 2 hours while awake Bromfenac - one drop in operative eye once daily SPECIAL CARE INSTRUCTIONS: * If any problems or concerns, please call Dr. Rodríguez's office at . * Keep plastic shield taped over eye to sleep at night. * Keep plastic shield taped over eye except to administer eye drops. * Keep plastic shield on until office visit the following day. FOLLOW UP VISIT: Follow-up with Dr. Rodríguez in the [place] office as scheduled. If not already scheduled, please call the office at . Diet Recommendations Home Diet: resume previous diet Procedures Procedures Performed: Right Cataract Phacoemulsification With Intraocular Lens Implant Pending Studies Studies pending at discharge: no Medical Emergencies . Who to Call and When: Medical Emergencies: If at any time you feel your situation is an emergency, please call 911 immediately. . Non-Emergent Contact Non-Emergency issues call your: Postdoctoral Research Fellow . . "Provider Documentation" section prepared by Gregory Rodríguez. .
[2017-06-06 09:15] VITALS: TEMP 36.2
--- NOTE | 2017-06-06 09:33 | Anesthesiology Progress Note ---
Anesthesia Post Op Note Date & Time Jun 06, 2017 at 09:33 Vital Signs Pain Intensity: 0 Vital Signs Past 12 Hours Date Time Temp Pulse Resp B/P (MAP) Pulse Ox O2 Delivery O2 Flow Rate FiO2 06/06/17 09:15 36.2 60 16 121/71 (88) 94 Room Air 06/06/17 07:30 36.7 66 20 103/66 (78) 95 Room Air Notes Mental Status: alert / awake / arousable, participated in evaluation Nausea / Vomiting: adequately controlled Pain: adequately controlled Airway Patency, RR, SpO2: stable & adequate BP & HR: stable & adequate Hydration State: stable & adequate Anesthetic Complications: no major complications apparent
[2017-06-06 09:50] VITALS: BP 139/79; PULSE 60; O2SAT 95
== END | disposition home or self-care (01) ==
LOC: X.SURG 07:15
PROVIDERS: ATTEND Ophthalmology
DX: H26.9 Unspecified cataract (principal); I25.10 Atherosclerotic heart disease of native coronary artery without angina pectoris; Z88.0 Allergy status to penicillin; Z88.8 Allergy status to other drugs, medicaments and biological substances; Z83.3 Family history of diabetes mellitus

== ENCOUNTER 2017-08-28 10:05 | Emergency (ER) | payer OTHER ==
[~2017-08-28] VITALS: Ht 180.3 cm; Wt 99.0 kg
[~2017-08-28 10:05] MED LIST changes: -500ML BSS 0.3ML EPI 1:1000PF IRRIG ONE; -ACETAMINOPHEN 325 MG TAB PO PRN; -AMVISC PLUS 0.8ML SYRINGE INT OCU ONE; -ATROPINE SULFATE 0.1 MG/ML 5ML SYR IV PRN; -BRIMONIDINE TART 0.2% OP SOLN PER DROP CHARGE ONE; -BSS FLUSH ONE; -ENDOCOAT 0.85ML SYRINGE INT OCU ONE; -EpHEDrine SULFATE INJ 50 MG/ML AMP IV PRN; -EpINEphrine INJ 1MG/ML AMP 1 MG/ML AMP ONE; -LACTATED RINGER'S 1000ML 500 ML IV SCH; -LIDOCAINE 4% OP SOLN DROP CHARGE ONE; -LIDOCAINE 4% OP SOLN DROP CHARGE OPR SCH; -LIDOCAINE HCL 1% MPF 2 ML VIAL ONE; -MIDAZOLAM HCL 1 MG/ML 2ML VIAL ONE; -MOXIFLOXACIN OPH SOLN PER DROP CHARGE ONE; -POVIDONE-IODINE OP SOLN 30 ML BTL ONE; -PROPARACAINE 0.5% OP SOLN PER DROP CHARGE OPR SCH; -TOBRAMYCIN/DEXAMETHASONE OPH OINT PER APPLN CHARGE ONE
[2017-08-28 10:19] VITALS: Ht 180.3 cm; Wt 99.0 kg
[2017-08-28] MEDS ORDERED: PROPARACAINE HCL 0.5% OP SOLN 15 ML BTL ONE (10:36)
--- NOTE | 2017-08-28 11:04 | EMERGENCY ROOM VISIT NOTE ---
ED Visit Note First contact with patient: 10:26 The patient was seen and examined with Dg Schultz PA-C. I agree with the history, physical and findings. Please see the note for disposition and details.
[2017-08-28] MEDS ORDERED: ARTIFICIAL TEARS OP OINT 3.5 GM TUBE OP ONE (11:15)
[2017-08-28 11:40] VITALS: BP 119/75; PULSE 78; O2SAT 98
--- NOTE | 2017-09-20 17:47 | EMERGENCY ROOM VISIT NOTE ---
ED Visit Note First contact with patient: 10:26 CHIEF COMPLAINT: Left eye pain HISTORY OF PRESENT ILLNESS: This 82-year-old white male patient complains of left eye pain that developed this morning. He believes he has something in his eye. He is unsure exactly what it might be. The eye is red and tearful. He denies any direct trauma. He has a history of previous cataract surgery in May. 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 He feels like it is under the upper lid. His vision has not been adversely affected. Light bothers his eye. The pain is steady and worse with blinking. No symptoms in the right eye. Pain is 7/10. REVIEW OF SYSTEM: HEENT: No dizziness, hearing loss, or tinnitus. There is no difficulty swallowing and no oral lesions are present. PULMONARY: No cough, shortness of breath, sputum production or hemoptysis. CARDIOVASCULAR: No chest pain, shortness of breath or peripheral edema. GASTROINTESTINAL: No diarrhea, constipation, nausea, vomiting, or abdominal pain. GENITOURINARY: No dysuria, frequency, urgency or nocturia. NEUROLOGIC: No weakness, muscle tenderness, epilepsy or history of neurological problems. MUSCULOSKELETAL: No history of joint tenderness/swelling. Positive history of arthritis and arthralgias. SKIN: No rashes or lesions. PSYCHIATRIC: No history of depression or mental illness. ENDOCRINE: No history of thyroid disorders, or abnormal hair growth. PMH: Significant for hypertension, elevated cholesterol, arrhythmia, diabetes, and osteoarthritis. Previous surgeries: Bilateral cataract surgery, knee arthroscopy, herniorrhaphy , pacemaker placement, cardiac stent placement, splenectomy, CABG 1, tonsillectomy with adenoidectomy, EGD, colonoscopy SOCIAL HISTORY: Patient lives at home. Nonsmoker, no excessive alcohol use. Family history: Noncontributory. Parents are . Current medications: Reviewed and filed in patient's chart Allergies: Clopidogrel, penicillin PHYSICAL EXAM: Vital Signs: Reviewed Nurse's notes. General: Well-developed, well-nourished, elderly white male, in no acute distress. Obvious discomfort. Sitting on the bed. Alert and oriented. Skin: Warm and dry with good turgor. No rashes or lesions. No ecchymosis or erythema. The patient is not diaphoretic. No abrasions. HEENT: Normocephalic atraumatic. Eyes PERRLA, EOMI. left eye has conjunctival and scleral injection. The eye is tearful. Upper lid was everted. No foreign material is noted. Nares patent bilaterally without turbinate enlargement. No significant drainage. No epistaxis. Oropharynx without erythema or exudate. Uvula midline, oral mucosa moist. No lesions present. EMERGENCY DEPARTMENT COURSE: The eye was anesthetized with proparacaine drops. Using the slip lamp, the eye was thoroughly evaluated. He appears to have a small suture protruding through the corneal layer. This was not removed or disturbed. DIAGNOSIS: Left eye corneal foreign body DISCHARGE INSTRUCTIONS & TREATMENT: Patient was educated regarding today's findings. Conservative care measures were discussed. I did discuss the case with Dr. Anand. He will see the patient in the office tomorrow. He recommended use of Lacri-Lube every 4 hours to soothe the eye. This was dispensed to the patient. Tylenol every 6 hours as needed for mild discomfort. He cannot take NSAIDs. Avoid picking of the eye or rubbing it vigorously. Return to the ED for any other concerns Patient was seen in conjunction with Dr. Xiao, who also evaluated the patient and concurred with today's diagnosis and treatment plan. Problem List Medical Problems: (1) CAD (coronary artery disease) Status: Chronic (2) Chronic anticoagulation Status: Chronic (3) DM type 2 (diabetes mellitus, type 2) Status: Chronic (4) Dyslipidemia Status: Chronic (5) Gout Status: Chronic (6) History of cerebral hemorrhage Status: Chronic (7) HTN (hypertension) Status: Chronic (8) Pacemaker Status: Chronic (9) Pancreatic cancer Status: Chronic (10) Paroxysmal atrial fibrillation Status: Chronic (11) Sinus node dysfunction Status: Chronic Surgical Problems: (1) H/O arthroscopic knee surgery Status: Chronic (2) H/O colonoscopy Status: Chronic (3) H/O esophagogastroduodenoscopy Status: Chronic (4) H/O inguinal hernia repair Status: Chronic (5) History of pancreatectomy Permanent Comment: 07/15/2010 [place] [facility] [place]: Chronic (6) S/P CABG x 1 Status: Chronic (7) S/P coronary artery stent placement Permanent Comment: 03/29/03 cardiac cath: RCA - stent of 90% lesion, L circ obtuse kenneth - stent of 80% lesion Status: Chronic (8) S/P splenectomy Status: Chronic (9) S/P tonsillectomy and adenoidectomy Status: Chronic Current/Historical Medications Scheduled Amlodipine (Norvasc), 5 MG PO BID Aspirin (Aspirin Ec), 81 MG PO QAM Atorvastatin (Lipitor), 40 MG PO QAM Cholecalciferol (Vitamin D 1000 Unit), 1,000 INTER.UNIT PO QAM Furosemide (Lasix), 20 MG PO QAM Insulin Glargine (Lantus Solostar), 32 UNITS SQ QAM Isosorbide Mononitrate Ext Rel (Imdur Ext Rel), 30 MG PO QPM Losartan Potassium (Cozaar), 50 MG PO QAM Metformin Hcl (Glucophage), 1,000 MG PO BID Metoprolol Succinate (Toprol Xl), 50 MG PO BID Pantoprazole (Protonix), 40 MG PO QAM Repaglinide (Repaglinide), 4 MG PO TID Warfarin Sod (Coumadin), 1.25 MG PO 4XWK Warfarin Sodium (Coumadin), 5 MG PO 3XWK Scheduled PRN Clindamycin Hcl (Cleocin), 2 CAP PO UD PRN for prior to dental work Nitroglycerin (Nitrostat), 0.4 MG UT UD PRN for Chest Pain Allergies Coded Allergies: Penicillins (Verified Allergy, Intermediate, HIVES, 08/28/17) Clopidogrel (Verified Allergy, Mild, INTERNAL HIVES, 08/28/17) Vital Signs Date Time Temp Pulse Resp B/P (MAP) Pulse Ox O2 Delivery O2 Flow Rate FiO2 08/28/17 11:40 78 15 119/75 98 08/28/17 10:19 36.7 67 16 116/72 94 Room Air Medications Administered Medications (Trade) Dose Ordered Sig/Hammad Route Start Time Stop Time Status Last Admin Dose Admin Proparacaine HCl (Alcaine 0.5% Oph Soln) 225 drops STK-MED ONCE .ROUTE 08/28/17 10:36 08/28/17 10:37 DC 08/28/17 10:39 225 DROPS Artificial Tears (Lacri-Lube Oph Oint) 1 appln NOW ONCE OP 08/28/17 11:15 08/28/17 11:16 DC 08/28/17 11:39 1 APPLN Departure Information Impression Primary Impression: Irritation of left eye Dispostion Home / Self-Care Condition GOOD Referrals Gregory Rodríguez MD Forms WORK / SCHOOL INSTRUCTIONS, HOME CARE DOCUMENTATION FORM, IMPORTANT VISIT INFORMATION Patient Instructions [facility] Additional Instructions Apply the Lacri-Lube in the left eye every 4 hours as needed for irritation Call Dr. Anand tomorrow morning at 815 for follow-up Avoid rubbing the eye or putting any additional solution in the eye
== END 2017-08-28 11:45 | disposition home or self-care (01) ==
LOC: C.EDB 10:06
DX: T15.02XA Foreign body in cornea, left eye, initial encounter (principal); X58.XXXA Exposure to other specified factors, initial encounter; E11.9 Type 2 diabetes mellitus without complications; I25.10 Atherosclerotic heart disease of native coronary artery without angina pectoris; I10 Essential (primary) hypertension; E78.5 Hyperlipidemia, unspecified; Z88.0 Allergy status to penicillin; Z88.8 Allergy status to other drugs, medicaments and biological substances; Z95.1 Presence of aortocoronary bypass graft; Z85.07 Personal history of malignant neoplasm of pancreas; Z79.4 Long term (current) use of insulin; Z79.01 Long term (current) use of anticoagulants; Z79.899 Other long term (current) drug therapy; Z95.0 Presence of cardiac pacemaker

== ENCOUNTER 2017-12-01 08:52 | Observation (INO) | payer OTHER ==
[2017-12-01] VITALS (7 sets, daily range): BP systolic 102–112; BP diastolic 85–88; PULSE 113–118; TEMP 36.3–36.5; O2SAT 91–95; Ht 180.3 cm; Wt 97.6 kg
[~2017-12-01] VITALS: Ht 180.3 cm; Wt 97.6 kg
[~2017-12-01 08:52] MED LIST changes: -AMLO-110 PO; +AMLO5TAB3 PO
[2017-12-01] MEDS ORDERED: SODIUM CHLORIDE 0.9% 250ML 250 ML IV STA (09:20)
[2017-12-01] MEDS ORDERED: METOPROLOL TARTRATE 1 MG/ML VIAL IV STA ×2 (09:20→14:19)
--- NOTE | 2017-12-01 09:26 | EMERGENCY ROOM VISIT NOTE ---
History Report prepared by Carmen: Ty Burden Under the Supervision of: Dr. Yousif Langford M.D. First contact with patient: 09:11 Chief Complaint: CONFUSION Stated Complaint: CONFUSION History of Present Illness The patient is an 82 year old male who presents to the Emergency Room with concerns of worsening confusion that the patient's family/friends have been worsening for the past week or so. The friend at bedside side states that the patient has seemed to be disoriented to the time of day and his surroundings on several different occasions over the past week. The patient's daughter at bedside notes that he has fallen twice in the same time frame. He denies losing consciousness at any time and notes that the falls were mechanical and he was not lightheaded at all. The patient is on Coumadin for atrial fibrillation. He took all of his medications this morning. Source of History: patient Onset: Past week or so Position: head (Mental status) Quality: other (confused/disoriented) Timing: worsening Associated Symptoms: No LOC Review of Systems See HPI for pertinent positives & negatives. A total of 10 systems reviewed and were otherwise negative. Past Medical & Surgical Medical Problems: (1) ACS (acute coronary syndrome) (2) CAD (coronary artery disease) (3) Chest pain (4) Chronic anticoagulation (5) DM type 2 (diabetes mellitus, type 2) (6) Dyslipidemia (7) Gout (8) History of cerebral hemorrhage (9) HTN (hypertension) (10) Memory difficulties (11) Pacemaker (12) Pancreatic cancer (13) Paroxysmal atrial fibrillation (14) Sinus node dysfunction (15) SSS (sick sinus syndrome) Surgical Problems: (1) H/O arthroscopic knee surgery (2) H/O colonoscopy (3) H/O esophagogastroduodenoscopy (4) H/O inguinal hernia repair (5) History of pancreatectomy (6) S/P CABG x 1 (7) S/P coronary artery stent placement (8) S/P splenectomy (9) S/P tonsillectomy and adenoidectomy Family History Diabetes mellitus FH: heart disease FH: hypertension Social History Smoking Status: Former Smoker Drug Use: none Marital Status: Housing Status: lives alone Occupation Status: retired Current/Historical Medications Scheduled Amlodipine (Norvasc), 5 MG PO BID Aspirin (Aspirin Ec), 81 MG PO QAM Atorvastatin (Lipitor), 40 MG PO QAM Cholecalciferol (Vitamin D 1000 Unit), 1,000 INTER.UNIT PO QAM Furosemide (Lasix), 20 MG PO QAM Insulin Glargine (Lantus Solostar), 8 UNITS SQ QAM Isosorbide Mononitrate Ext Rel (Imdur Ext Rel), 30 MG PO QPM Losartan Potassium (Cozaar), 50 MG PO QAM Metformin Hcl (Glucophage), 1,000 MG PO BID Metoprolol Succinate (Toprol Xl), 50 MG PO BID Pantoprazole (Protonix), 40 MG PO QAM Polyethylene Glycol 3350 (Miralax), 17 GM PO DAILY Repaglinide (Repaglinide), 4 MG PO TID Warfarin Sod (Jantoven), 2.5 MG PO Q2D Warfarin Sodium (Coumadin), 5 MG PO 3XWK Scheduled PRN Clindamycin Hcl (Cleocin), 2 CAP PO UD PRN for prior to dental work Nitroglycerin (Nitrostat), 0.4 MG UT UD PRN for Chest Pain Allergies Coded Allergies: Penicillins (Verified Allergy, Intermediate, HIVES, 12/01/17) Clopidogrel (Verified Allergy, Mild, INTERNAL HIVES, 12/01/17) Physical Exam Vital Signs Date Time Temp Pulse Resp B/P (MAP) Pulse Ox O2 Delivery O2 Flow Rate FiO2 12/01/17 11:44 95 Room Air 12/01/17 10:05 117 20 121/82 12/01/17 09:44 109 20 113/79 12/01/17 09:31 120 105/74 12/01/17 09:28 93 Room Air 12/01/17 09:23 117 12/01/17 09:02 36.7 116 24 116/75 93 Room Air Physical Exam GENERAL: Patient is in no acute distress. HEENT: No acute trauma, normocephalic atraumatic, mucous membranes moist, no nasal congestion, no scleral icterus. PERRL. NECK: No stridor, no adenopathy, no meningismus, trachea is midline. LUNGS: Clear to auscultation bilaterally, no wheeze, no rhonchi, breath sounds equal. HEART: Mild systolic murmur with an irregular rhythm. Mild tachycardia ABDOMEN: Soft, nontender, bowel sounds positive, no hernias, no peritonitis. EXTREMITIES: No cyanosis, mild bilateral pedal edema, full range of motion of all the joints without pain or difficulty, no signs for acute trauma. NEUROLOGIC: Oriented x 3, no acute motor or sensory deficits, no focal weakness. SKIN: No rash, no jaundice, no diaphoresis. Medical Decision & Procedures ER Provider Diagnostic Interpretation: Radiology results as stated below per my review and radiologist interpretation: CHEST ONE VIEW PORTABLE CLINICAL HISTORY: confusion mental status change COMPARISON STUDY: 04/06/2017 FINDINGS: Moderate cardiomegaly. Findings of a prior median sternotomy and bipolar cardiac pacemaker placement. Prominent pulmonary vasculature suggesting a component of congestive failure. Small bilateral pleural effusions. IMPRESSION: Developing congestive heart failure. The above report was generated using voice recognition software. It may contain grammatical, syntax or spelling errors. Electronically signed by: Melo Gama M.D. 12/01/2017 9:39 AM Dictated Date/Time: 12/01/2017 9:[address] SCAN OF THE BRAIN WITHOUT IV CONTRAST CLINICAL HISTORY: Strokelike symptoms. COMPARISON STUDY: CT of the brain dated 09/17/2014. TECHNIQUE: Unenhanced axial CT scan of the brain is performed from the vertex to the skull base. A dose lowering technique was utilized adhering to the principles of ALARA. CT DOSE: 765.09 mGycm FINDINGS: Brain parenchyma: There are age-related involutional changes noting moderate patchy subcortical and periventricular microangiopathic change. Small foci of right frontal and right posterior parietal encephalomalacia are consistent with remote infarcts. Small chronic lacunar infarcts are seen in the basal ganglia and the left thalamus. There is no hemorrhage, mass effect, or evidence of acute territorial ischemia by CT criteria. [place]-white matter is preserved. No extra-axial fluid collection is seen. Ventricles, sulci, cisterns: Prominent secondary to involutional change. Intracranial vasculature: There is atherosclerotic calcification of the cavernous carotid and vertebral arteries. Calvarium: Unremarkable. Sinuses and mastoids: The visualized paranasal sinuses are clear. There are small mastoid effusions, left larger and right. Orbits: The bony orbits are grossly intact. There are bilateral ocular lens implants. IMPRESSION: 1. There is no hemorrhage, mass effect, or evidence of acute territorial ischemia by CT criteria. 2. Senescent change and remote infarcts as above. Electronically signed by: Yousif Espinoza M.D. 12/01/2017 10:00 AM Dictated Date/Time: 12/01/2017 9:56 AM Laboratory Results 12/01/17 09:23 Red Blood Count 3.98, Mean Corpuscular Volume 96.5, Mean Corpuscular Hemoglobin 31.7, Mean Corpuscular Hemoglobin Concent 32.8, Mean Platelet Volume 11.2, Neutrophils (%) (Auto) 62.6, Lymphocytes (%) (Auto) 18.6, Monocytes (%) (Auto) 13.9, Eosinophils (%) (Auto) 4.0, Basophils (%) (Auto) 0.6, Neutrophils # (Auto ) 4.90, Lymphocytes # (Auto) 1.46, Monocytes # (Auto) 1.09, Eosinophils # (Auto ) 0.31, Basophils # (Auto) 0.05 12/01/17 09:23 Test 12/01/17 09:23 12/01/17 10:35 White Blood Count 7.83 K/uL (4.8-10.8) Red Blood Count 3.98 M/uL (4.7-6.1) Hemoglobin 12.6 g/dL (14.0-18.0) Hematocrit 38.4 % (42-52) Mean Corpuscular Volume 96.5 fL (80-100) Mean Corpuscular Hemoglobin 31.7 pg (25-34) Mean Corpuscular Hemoglobin Concent 32.8 g/dl (32-36) Platelet Count 135 K/uL (130-400) Mean Platelet Volume 11.2 fL (7.4-10.4) Neutrophils (%) (Auto) 62.6 % Lymphocytes (%) (Auto) 18.6 % Monocytes (%) (Auto) 13.9 % Eosinophils (%) (Auto) 4.0 % Basophils (%) (Auto) 0.6 % Neutrophils # (Auto) 4.90 K/uL (1.4-6.5) Lymphocytes # (Auto) 1.46 K/uL (1.2-3.4) Monocytes # (Auto) 1.09 K/uL (0.11-0.59) Eosinophils # (Auto) 0.31 K/uL (0-0.5) Basophils # (Auto) 0.05 K/uL (0-0.2) RDW Standard Deviation 54.8 fL (36.4-46.3) RDW Coefficient of Variation 15.6 % (11.5-14.5) Immature Granulocyte % (Auto) 0.3 % Immature Granulocyte # (Auto) 0.02 K/uL (0.00-0.02) Erythrocyte Sedimentation Rate 2 mm/hr (0-14) Prothrombin Time 28.3 SECONDS (9.0-12.0) Prothromb Time International Ratio 2.7 (0.9-1.1) Activated Partial Thromboplast Time 33.6 SECONDS (21.0-31.0) Partial Thromboplastin Ratio 1.3 Anion Gap 9.0 mmol/L (3-11) Est Creatinine Clear Calc Drug Dose 64.0 ml/min Estimated GFR () 75.4 Estimated GFR (Non- 65.0 BUN/Creatinine Ratio 21.0 (10-20) Calcium Level 8.7 mg/dl (8.5-10.1) Magnesium Level 1.8 mg/dl (1.8-2.4) Total Bilirubin 1.7 mg/dl (0.2-1) Direct Bilirubin 0.5 mg/dl (0-0.2) Aspartate Amino Transf (AST/SGOT) 29 U/L (15-37) Alanine Aminotransferase (ALT/SGPT) 32 U/L (12-78) Alkaline Phosphatase 68 U/L (45-117) Troponin I < 0.015 ng/ml (0-0.045) Pro-B-Type Natriuretic Peptide 4482 pg/ml (0-1800) Total Protein 6.9 gm/dl (6.4-8.2) Albumin 3.8 gm/dl (3.4-5.0) Procalcitonin < 0.05 ng/ml (0-0.5) Thyroid Stimulating Hormone (TSH) 4.160 uIu/ml (0.300-4.500) Urine Color YELLOW Urine Appearance CLEAR (CLEAR) Urine pH 5.0 (4.5-7.5) Urine Specific [place] 1.020 (1.000-1.030) Urine Protein NEG (NEG) Urine Glucose (UA) NEG (NEG) Urine Ketones NEG (NEG) Urine Occult Blood NEG (NEG) Urine Nitrite NEG (NEG) Urine Bilirubin NEG (NEG) Urine Urobilinogen NEG (NEG) Urine Leukocyte Esterase NEG (NEG) Laboratory results reviewed by me. Medications Administered Medications (Trade) Dose Ordered Sig/Hammad Route Start Time Stop Time Status Last Admin Dose Admin Metoprolol Tartrate (Lopressor Iv) 2.5 mg NOW STAT IV 12/01/17 09:20 12/01/17 09:25 DC 12/01/17 09:31 2.5 MG Sodium Chloride 250 ml @ 999 mls/hr Q16M STAT IV 12/01/17 09:20 12/01/17 09:35 DC 12/01/17 09:33 999 MLS/HR Furosemide (Lasix Inj) 40 mg STK-MED ONCE .ROUTE 12/01/17 10:29 12/01/17 10:30 DC 12/01/17 10:33 20 MG ECG Per My Interpretation Indication: altered mental status Rate (beats per minute): 117 Rhythm: other (ventriclularly paced) Findings: paced rhythm, other (No concerning NISSA, occasional [place] beats noted ) ED Course 0912: The patient was evaluated in room A9B. A complete history and physical exam was performed. 0920: Ordered Sodium Chloride 250 mL @ 999 mL/hr IV, Lopressor 2.5 mg IV. 1015: Ordered Furosemide 2 mL @ mL/min IV. 1109: I discussed the case with Jaida Montgomery Hospitalist ALONSO. She will evaluate the patient for further treatment. 1118: I updated the patient on the findings. The patient is agreeable to inpatient stay. Medical Decision Differential Diagnosis includes; intracranial bleeding, stroke, dementia, electrolyte imbalance, anemia, infection, urinary tract infection, medication non-compliance. There is no leukocytosis or worrisome anemia. No significant electrolyte abnormality, kidney failure or hepatitis. EKG shows a ventricular pacemaker. Cardiac enzyme testing 1 is not consistent with acute cardiac injury. Chest film shows some possible mild CHF, no pneumonia. Brain CT shows no acute bleed or mass-effect. INR was therapeutic for someone using Coumadin. Urinalysis does not show infection. On my exam, there were no focal neurologic deficits. The patient was not toxic or febrile. The patient received a small bolus of IV saline, he received IV Lopressor for the faster heart rate. He was given IV Lasix once the findings of mild CHF were noted. Patient presents with a change in mental status that has been ongoing for over a week. He is not a candidate for TPA given the timeframe of his symptoms. I do think further workup in the hospital for his mental status issues is warranted. I spoke to the family and the patient. I spoke with the rn field case manager. The on-call hospitalist was consulted. Medication Reconcilliation Current Medication List: was personally reviewed by me Blood Pressure Screening Patient's blood pressure: Normal blood pressure Consults Time Called: 1104 Consulting Physician: Jaida Bang PA-C Returned Call: 1109 I discussed the case with Jaida Bang PA-C. She will evaluate the patient for further treatment. Impression Primary Impression: Change in mental status Additional Impression: Tachycardia Scribe Attestation The scribe's documentation has been prepared under my direction and personally reviewed by me in its entirety. I confirm that the note above accurately reflects all work, treatment, procedures, and medical decision making performed by me. Departure Information Dispostion Being Evaluated By Hospitalist Patient Instructions My [facility] Stroke History Time Last Known Well 1week ago Stroke t-PA Criteria Reviewed Does NOT meet criteria for t-PA Reason t-PA Not Given Treatment not indicated Problem Qualifiers
[2017-12-01 09:32] LABS: BASO % 0.6 %; BASO ABS # 0.05 K/uL (0-0.2); EOS ABS # 0.31 K/uL (0-0.5); HEMATOCRIT 38.4 % (42-52); HEMOGLOBIN 12.6 g/dL (14.0-18.0); IG# 0.02 K/uL (0.00-0.02); LYMPH % 18.6 %; LYMPH ABS # 1.46 K/uL (1.2-3.4); MEAN CELL VOLUME 96.5 fL (80-100); MEAN CORPUSCULAR HEMOGLOBIN 31.7 pg (25-34); MEAN CORPUSCULAR HGB CONC 32.8 g/dl (32-36); MEAN PLATELET VOLUME 11.2 fL (7.4-10.4); MONO % 13.9 %; MONO ABS # 1.09 K/uL (0.11-0.59); NEUT % 62.6 %; PLATELET COUNT 135 K/uL (130-400); RED CELL DISTRIBUTION WIDTH CV 15.6 % (11.5-14.5); RED CELL DISTRIBUTION WIDTH SD 54.8 fL (36.4-46.3); WHITE BLOOD COUNT 7.83 K/uL (4.8-10.8)
[2017-12-01 09:40] LABS: INR 2.7 (0.9-1.1); PTT PATIENT 33.6 SECONDS (21.0-31.0)
--- NOTE | 2017-12-01 09:40 | DIAGNOSTIC IMAGING REPORT ---
CHEST ONE VIEW PORTABLE CLINICAL HISTORY: confusion mental status change COMPARISON STUDY: 04/06/2017 FINDINGS: Moderate cardiomegaly. Findings of a prior median sternotomy and bipolar cardiac pacemaker placement. Prominent pulmonary vasculature suggesting a component of congestive failure. Small bilateral pleural effusions. IMPRESSION: Developing congestive heart failure. The above report was generated using voice recognition software. It may contain grammatical, syntax or spelling errors. Electronically signed by: Melo Gama M.D. 12/01/2017 9:39 AM Dictated Date/Time: 12/01/2017 9:39 AM
[2017-12-01] MEDS ORDERED: POLY335019 PO (09:43)
[2017-12-01] MEDS ORDERED: WARF2.5T8 PO (09:43)
[2017-12-01 09:52] LABS: ALBUMIN 3.8 gm/dl (3.4-5.0); BLOOD UREA NITROGEN 22 mg/dl (7-18); CALCIUM 8.7 mg/dl (8.5-10.1); CARBON DIOXIDE 21 mmol/L (21-32); CREATININE 1.06 mg/dl (0.60-1.40); GLUCOSE 176 mg/dl (70-99); POTASSIUM 4.4 mmol/L (3.5-5.1); SODIUM 138 mmol/L (136-145); TOTAL PROTEIN 6.9 gm/dl (6.4-8.2)
[2017-12-01 09:53] LABS: ALKALINE PHOSPHATASE 68 U/L (45-117); ALT/SGPT 32 U/L (12-78); AST/SGOT 29 U/L (15-37)
--- NOTE | 2017-12-01 10:02 | DIAGNOSTIC IMAGING REPORT ---
CT SCAN OF THE BRAIN WITHOUT IV CONTRAST CLINICAL HISTORY: Strokelike symptoms. COMPARISON STUDY: CT of the brain dated 09/17/2014. TECHNIQUE: Unenhanced axial CT scan of the brain is performed from the vertex to the skull base. A dose lowering technique was utilized adhering to the principles of ALARA. CT DOSE: 765.09 mGycm FINDINGS: Brain parenchyma: There are age-related involutional changes noting moderate patchy subcortical and periventricular microangiopathic change. Small foci of right frontal and right posterior parietal encephalomalacia are consistent with remote infarcts. Small chronic lacunar infarcts are seen in the basal ganglia and the left thalamus. There is no hemorrhage, mass effect, or evidence of acute territorial ischemia by CT criteria. [place]ale[place]-white matter is preserved. No extra-axial fluid collection is seen. Ventricles, sulci, cisterns: Prominent secondary to involutional change. Intracranial vasculature: There is atherosclerotic calcification of the cavernous carotid and vertebral arteries. Calvarium: Unremarkable. Sinuses and mastoids: The visualized paranasal sinuses are clear. There are small mastoid effusions, left larger and right. Orbits: The bony orbits are grossly intact. There are bilateral ocular lens implants. IMPRESSION: 1. There is no hemorrhage, mass effect, or evidence of acute territorial ischemia by CT criteria. 2. Senescent change and remote infarcts as above. Electronically signed by: Yousif Espinoza M.D. 12/01/2017 10:00 AM Dictated Date/Time: 12/01/2017 9:56 AM
[2017-12-01] MEDS ORDERED: FUROSEMIDE INJ 20 MG in SYRINGE 0 ML IV ONE (10:15)
[2017-12-01] MEDS ORDERED: FUROSEMIDE 40 MG/4 ML VIAL ONE (10:29)
--- NOTE | 2017-12-01 11:57 | History and Physical ---
History & Physical Date & Time of Service: Dec 01, 2017 at 11:57 Chief Complaint: Confusion Primary Care Physician: Melo Carlos M.D. History of Present Illness Source: patient, family The patient is an 82 year old male who is accompanied by family friend and daughter. As per patient and the family, the patient has been noted to have symptoms of confusion. They give the example of him calling a friend and confused of the time of day whether it was day or night. Patient has reported to have 2 falls, 1 time when he was getting up from rest and 1 time when he was trying to sit down and missed the chair. Patient's daughter is concerned that there has been progressive decline with his functioning and mental status, although based on their history and patient's present mental he appears to be answering questions appropriately. Patient denies fever, or chest pain. He does indicate that sometimes when he is walking he needs to stop but it is unclear whether he needs to stop because he is tired or short of breath. Patient does have history of cardiac disease. However, breathing and speaking comfortably on room air. Past Medical/Surgical History Medical Problems: (1) ACS (acute coronary syndrome) (2) Acute chest pain (3) Atypical chest pain (4) CAD (coronary artery disease) (5) Cellulitis (6) Chest pain (7) Chest pain radiating to upper extremity (8) Chronic anticoagulation (9) Coronary artery disease (10) Dizziness (11) DM type 2 (diabetes mellitus, type 2) (12) Dyslipidemia (13) Dyspnea on exertion (14) Elevated troponin level (15) Epigastric abdominal pain (16) Epigastric pain (17) Foot pain (18) Gout (19) History of cerebral hemorrhage (20) HTN (hypertension) (21) Hypertensive urgency (22) Irritation of left eye (23) Irritation of left eye (24) Left ankle pain (25) Memory difficulties (26) Pacemaker (27) Pancreatic cancer (28) Paroxysmal atrial fibrillation (29) Sinus node dysfunction (30) SSS (sick sinus syndrome) (31) Substernal chest pain (32) Substernal discomfort (33) Unstable angina Surgical Problems: (1) H/O arthroscopic knee surgery (2) H/O colonoscopy (3) H/O esophagogastroduodenoscopy (4) H/O inguinal hernia repair (5) History of pancreatectomy (6) S/P CABG x 1 (7) S/P coronary artery stent placement (8) S/P splenectomy (9) S/P tonsillectomy and adenoidectomy Family History Diabetes mellitus FH: heart disease FH: hypertension Social History Smoking Status: Former Smoker Drug Use: none Marital Status: Occupational Status: retired Immunizations History of Influenza Vaccine: Yes History of Tetanus Vaccine?: Yes History of Pneumococcal: Yes Pneumococcal Date: Feb 26, 2003 History of Hepatitis B Vaccine: Yes Allergies Coded Allergies: Penicillins (Verified Allergy, Intermediate, HIVES, 12/01/17) Clopidogrel (Verified Allergy, Mild, INTERNAL HIVES, 12/01/17) Home Medications Scheduled Amlodipine (Norvasc), 5 MG PO BID Aspirin (Aspirin Ec), 81 MG PO QAM Atorvastatin (Lipitor), 40 MG PO QAM Cholecalciferol (Vitamin D 1000 Unit), 1,000 INTER.UNIT PO QAM Furosemide (Lasix), 20 MG PO QAM Insulin Glargine (Lantus Solostar), 8 UNITS SQ QAM Isosorbide Mononitrate Ext Rel (Imdur Ext Rel), 30 MG PO QPM Losartan Potassium (Cozaar), 50 MG PO QAM Metformin Hcl (Glucophage), 1,000 MG PO BID Metoprolol Succinate (Toprol Xl), 50 MG PO BID Pantoprazole (Protonix), 40 MG PO QAM Polyethylene Glycol 3350 (Miralax), 17 GM PO DAILY Repaglinide (Repaglinide), 4 MG PO TID Warfarin Sod (Jantoven), 2.5 MG PO Q2D Warfarin Sodium (Coumadin), 5 MG PO 3XWK Scheduled PRN Clindamycin Hcl (Cleocin), 2 CAP PO UD PRN for prior to dental work Nitroglycerin (Nitrostat), 0.4 MG UT UD PRN for Chest Pain Review of Systems Constitutional: No fever, No weight loss Eyes: No worsening of vision, No eye pain ENT: No hearing loss, No nasal symptoms Respiratory: + dyspnea on exertion, No cough, No wheezing Cardiovascular: No chest pain, No edema, No palpitations Abdomen: No pain, No nausea, No vomiting Musculoskeletal: No joint pain, No muscle pain, No swelling Genitourinary - Male: No dysuria Neurologic: + problem reported (reported confusion and memory deficit by family member and friend) Psychiatric: No depression symptoms Hematologic / Lymphatic: No abnormal bleeding/bruising Integumentary: No rash, No itch Physical Exam Vital Signs Date Time Temp Pulse Resp B/P (MAP) Pulse Ox O2 Delivery O2 Flow Rate FiO2 12/01/17 09:44 109 20 113/79 12/01/17 09:31 120 105/74 12/01/17 09:28 93 Room Air 12/01/17 09:23 117 12/01/17 09:02 36.7 116 24 116/75 93 Room Air General Appearance: WD/WN, no apparent distress Head: normocephalic, atraumatic Eyes: normal inspection, PERRL, EOMI, sclerae normal ENT: normal ENT inspection, hearing grossly normal, pharynx normal Neck: supple, no JVD, trachea midline Respiratory/Chest: chest non-tender, lungs clear, normal breath sounds, no respiratory distress, no accessory muscle use Cardiovascular: no edema, no JVD, normal peripheral pulses, + tachycardia Abdomen/GI: normal bowel sounds, non tender, soft Back: normal inspection, no CVA tenderness, no muscle spasm, normal range of motion Extremities/Musculoskelatal: normal inspection, no calf tenderness, normal capillary refill, no pedal edema, normal range of motion, non-tender Neurologic/Psych: training coordinator II-XII nml as tested, no motor/sensory deficits, alert, normal mood/affect, oriented x 3 Skin: normal color, warm/dry, no rash Diagnostics Laboratory Results Results Past 24 Hours Test 12/01/17 09:23 12/01/17 10:35 Range/Units White Blood Count 7.83 4.8-10.8 K/uL Red Blood Count 3.98 4.7-6.1 M/uL Hemoglobin 12.6 14.0-18.0 g/dL Hematocrit 38.4 42-52 % Mean Corpuscular Volume 96.5 80-100 fL Mean Corpuscular Hemoglobin 31.7 25-34 pg Mean Corpuscular Hemoglobin Concent 32.8 32-36 g/dl Platelet Count 135 130-400 K/uL Mean Platelet Volume 11.2 7.4-10.4 fL Neutrophils (%) (Auto) 62.6 % Lymphocytes (%) (Auto) 18.6 % Monocytes (%) (Auto) 13.9 % Eosinophils (%) (Auto) 4.0 % Basophils (%) (Auto) 0.6 % Neutrophils # (Auto) 4.90 1.4-6.5 K/uL Lymphocytes # (Auto) 1.46 1.2-3.4 K/uL Monocytes # (Auto) 1.09 0.11-0.59 K/uL Eosinophils # (Auto) 0.31 0-0.5 K/uL Basophils # (Auto) 0.05 0-0.2 K/uL RDW Standard Deviation 54.8 36.4-46.3 fL RDW Coefficient of Variation 15.6 11.5-14.5 % Immature Granulocyte % (Auto) 0.3 % Immature Granulocyte # (Auto) 0.02 0.00-0.02 K/uL Prothrombin Time 28.3 9.0-12.0 SECONDS Prothromb Time International Ratio 2.7 0.9-1.1 Activated Partial Thromboplast Time 33.6 21.0-31.0 SECONDS Partial Thromboplastin Ratio 1.3 Sodium Level 138 136-145 mmol/L Potassium Level 4.4 3.5-5.1 mmol/L Chloride Level 108 98-107 mmol/L Carbon Dioxide Level 21 21-32 mmol/L Anion Gap 9.0 3-11 mmol/L Blood Urea Nitrogen 22 7-18 mg/dl Creatinine 1.06 0.60-1.40 mg/dl Est Creatinine Clear Calc Drug Dose 64.0 ml/min Estimated GFR () 75.4 Estimated GFR (Non- 65.0 BUN/Creatinine Ratio 21.0 10-20 Random Glucose 176 70-99 mg/dl Calcium Level 8.7 8.5-10.1 mg/dl Magnesium Level 1.8 1.8-2.4 mg/dl Total Bilirubin 1.7 0.2-1 mg/dl Direct Bilirubin 0.5 0-0.2 mg/dl Aspartate Amino Transf (AST/SGOT) 29 15-37 U/L Alanine Aminotransferase (ALT/SGPT) 32 12-78 U/L Alkaline Phosphatase 68 45-117 U/L Troponin I < 0.015 0-0.045 ng/ml Total Protein 6.9 6.4-8.2 gm/dl Albumin 3.8 3.4-5.0 gm/dl Urine Color YELLOW Urine Appearance CLEAR CLEAR Urine pH 5.0 4.5-7.5 Urine Specific Closplint 1.020 1.000-1.030 Urine Protein NEG NEG Urine Glucose (UA) NEG NEG Urine Ketones NEG NEG Urine Occult Blood NEG NEG Urine Nitrite NEG NEG Urine Bilirubin NEG NEG Urine Urobilinogen NEG NEG Urine Leukocyte Esterase NEG NEG Impression Assessment and Plan Confusion and Memory deficits, reported -CT head on 12/01/17 generally without any acute events "There are age-related involutional changes noting moderate patchy subcortical and periventricular microangiopathic change. Small foci of right frontal and right posterior parietal encephalomalacia are consistent with remote infarcts. Small chronic lacunar infarcts are seen in the basal ganglia and the left thalamus. There is no hemorrhage, mass effect, or evidence of acute territorial ischemia by CT criteria. Galeano-white matter is preserved. No extra-axial fluid collection is seen" -no obvious infection - no leukocytosis, ESR normal, UA negative, no fever -patient did not appear to be confused when examined by hospitalist -Dementia workup with B12 and folic acid and TSH normal. RPR pending -patient denies depression -monitor for delirium in the hospital Reported falls at home -PT/OT assessment requested Catheter based intervention with bare metal stent to RCA and left circumflex coronary arteries with bare metal stent in 2002. S/P CABG - CLEARY to LAD and a saphenous vein graft to obtuse marginal branch and a modified Maze procedure and occlusion of the left atrial appendage 03/06/07. November 2016 NSTEMI, POBA of the RPDA with residual 50% stenosis. Systolic congestive heart failure. Prior EF 45%. LVEF at [facility] in November 2016 50-55 %. -CXR: Moderate cardiomegaly. Findings of a prior median sternotomy and bipolar cardiac pacemaker placement. Prominent pulmonary vasculature suggesting a component of congestive failure. 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 on 06/11/2015 -anticoagulated on coumadin -as per patient's daughter, coumadin 2.5 mg M// and 5 mg daily on /Tue/Tue -INR 2.7 on admission, continue coumadin home schedule -unclear whether patient take morning dose of metoprolol and IV doses of metoprolol has been given, heart rates 110 bpm to 115 bpm, continue home dose beta mitchel starting with typical evening dose, continue to observe on telemetry HTN history -continue imdur and losartan and Lasix Diabetes -hold home dose metformin -continue Lantus 8 units daily -fingerstick glucose and insulin aspart as per protocol DVT ppx: SCD Code Status: allows for chest compression and defibrillation, does not allow for intubation Daughter [phone], works at [employer] Disposition: At this point in time given generally negative workup, it may be that patient's reported confusion or memory deficits may be due to some component chronic microvascular disease of the brain. Does not appear to have acute stroke based on head CT and patient may not be candidate for MRI given pacemaker. Vascular dementia is considered but patient does not appear to be demented. At this time will monitor on telemetry and reassess heart rate after reinitiating home beta mitchel medications. Follow up RPR results. Awaiting PT/ OT evaluations Resuscitation Status VTE Prophylaxis Will order VTE Prophylaxis: Yes
[2017-12-01] MEDS ORDERED: IV FLUIDS COMPLETED PRN (13:45)
[2017-12-01] MEDS ORDERED: WARFARIN SOD 5 MG TAB PO SCH (16:00)
[2017-12-01] MEDS: POLYETHYLENE (MIRALAX) 17 GM PACK PO PRN (18:12)
[2017-12-01] MEDS ORDERED: GLUCAGON FOR INJ 1 MG VIAL SQ PRN (18:15)
[2017-12-01] MEDS ORDERED: GLUCOSE 40% GEL 15 GM TUBE PO PRN (18:15)
[2017-12-01] MEDS ORDERED: GLUCOSE 10 TABS/TUBE PO PRN (18:15)
[2017-12-01] MEDS ORDERED: CARBOHYDRATES FOR HYPOGLYCEMIA PO PRN (18:15)
[2017-12-01] MEDS ORDERED: DEXTROSE 50% 50 ML SYR IV PRN (18:15)
[2017-12-01] MEDS ORDERED: METOPROLOL SUCC 50MG EXT REL TAB PO STA (18:38)
[2017-12-01] MEDS: INSULIN ASPART 100 UNITS/ML 3 ML PEN SC SCH (20:14)
[2017-12-01] MEDS: AMLODIPINE BESYLATE 5 MG TAB PO SCH (20:15)
[2017-12-01] MEDS ORDERED: ISOSORBIDE MONONITRATE 30 MG TABCR PO SCH (21:00)
[2017-12-01] MEDS ORDERED: METOPROLOL SUCC 50MG EXT REL TAB PO SCH (21:00)
[2017-12-02] VITALS (7 sets, daily range): BP systolic 101–113; BP diastolic 73–84; PULSE 110–117; TEMP 36.4–36.6; O2SAT 93–98
[2017-12-02 00:13] LABS: RAPID PLASMA REAGIN NONREACTIVE (NONREACT)
[2017-12-02] MEDS: INSULIN ASPART 100 UNITS/ML 3 ML PEN SC SCH ×2 (07:00→11:00)
[2017-12-02] MEDS: AMLODIPINE BESYLATE 5 MG TAB PO SCH (08:30)
[2017-12-02] MEDS ORDERED: INSULIN GLARGINE SOLOSTAR 100 UNITS/ML 3 ML PEN SQ SCH (09:00)
[2017-12-02] MEDS ORDERED: FUROSEMIDE 20 MG TAB PO SCH (09:00)
[2017-12-02] MEDS ORDERED: ASPIRIN 81 MG ECTAB PO SCH (09:00)
[2017-12-02] MEDS ORDERED: LOSARTAN POTASSIUM 50 MG TAB PO SCH (09:00)
[2017-12-02] MEDS ORDERED: METOPROLOL SUCC 50MG EXT REL TAB PO SCH (09:00)
[2017-12-02] MEDS ORDERED: ATORVASTATIN 40 MG TAB PO SCH (09:00)
[2017-12-02] MEDS ORDERED: PANTOprazole SOD 40 MG TAB PO SCH (09:00)
--- NOTE | 2017-12-02 11:21 | Cardiology Consultation ---
Cardiology Consultation Date of Consultation: Dec 02, 2017 Requesting Physician: Jose Juan Attending Clerical Proofreader: Magdi History of Present Illness Mr. Little is a very pleasant 82-year-old male who was admitted to [facility] on December 01, 2017 due to intermittent confusion as well as acute on chronic dyspnea. The patient's family is concerned regarding progressive decline in functioning as well as mental status with intermittent confusion observed. He is being seen at the request of Dr. Manzano due to tachycardia despite beta blockers. The patient describes increased shortness of breath over the last 2 weeks. He denies chest pain, overt palpitations, cough, chest congestion, abdominal bloating, scrotal edema, increased lower extremity peripheral edema, or abrupt weight gain. Prior to developing the acute on chronic dyspnea the patient was reportedly exercising by climbing flights of stairs in his apartment complex. He notes climbing up to 20 flights of steps, intermittently requiring short breaks to rest due to dyspnea though without other concern. EKG on presentation revealed what appears to be atrial fibrillation with possible inappropriate ventricular pacing, ventricular rate of 117 bpm. Chest x-ray on presentation revealed developing congestive heart failure but radiological interpretation. Head CT showed no hemorrhage, mass- effect, or evidence of acute territorial ischemia by CT criteria. Senescent change and remote infarcts observed. Past Medical/Surgical History Problem List: Ischemic heart disease Catheter based intervention with bare metal stent to RCA and left circumflex coronary arteries with bare metal stent in 2002. S/P CABG - CLEARY to LAD and a saphenous vein graft to obtuse marginal branch and a modified Maze procedure and occlusion of the left atrial appendage 03/06/07. November 2016 NSTEMI, POBA of the RPDA with residual 50% stenosis. Systolic congestive heart failure. Prior EF 45%. LVEF at [facility] in November 2016 50-55 %. Paroxysmal atrial fibrillation and flutter. 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 Hypertension. Hyperlipidemia. Type 2 diabetes mellitus. Malignant neoplasm of the pancreas tail s/p laparoscopic pancreatectomy. Gout. History of splenectomy Colonoscopy with polypectomy. Tonsillectomy. Adenoidectomy. Bilateral endoscopic inguinal hernia repair. Right arthroscopic knee surgery. Family History Diabetes mellitus FH: heart disease FH: hypertension Father with a CVA at 62. Mother had hypertension, CVA and Alzheimer's. She in her 70s. Brother with CAD. Positive for CAD, hypertension, and diabetes mellitus. Social History Prior smoker, one pack per day x 30 years. Social alcohol, [employer]. 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 . Girlfriend. [facility] in [place] Review Of Systems General: No fever, chills, or night sweats. Head: No headaches. Cardiovascular: No chest pain. No near syncope or syncope Pulmonary: + Cough. + KRAMER. No hemoptysis Gastrointestinal: No nausea, vomiting, or diarrhea Skin: No rash. Musculoskeletal: Arthritis. Knee pain. Neurological: See above. Complete review of system is otherwise as stated above, negative, or noncontributory. Allergies Coded Allergies: Penicillins (Verified Allergy, Intermediate, HIVES, 12/01/17) Clopidogrel (Verified Allergy, Mild, INTERNAL HIVES, 12/01/17) Medications Reported Home Medications Medications Dose Route/Sig Max Daily Dose Days Date Category Dose Instructions Jantoven (Warfarin Sodium) 2.5 Mg Tab 2.5 Mg PO Q2D 12/01/17 Reported PT TAKES 2.5MG ON TUESDAY,TUESDAY,TUESDAY, AND TUESDAY Miralax (Polyethylene Glycol 3350) 1 17 Gm PO DAILY 12/01/17 Reported Protonix (Pantoprazole) 40 Mg Tab 40 Mg PO QAM 04/08/17 Reported Norvasc (Amlodipine Besylate) 5 Mg Tab 5 Mg PO BID 04/08/17 Reported Repaglinide 2 Mg Tab 4 Mg PO TID 04/06/17 Reported Toprol Xl (Metoprolol Succinate) 50 Mg Tab 50 Mg PO BID 03/28/17 Reported Imdur Ext Rel (Isosorbide Mononitrate) 30 Mg Ertab 30 Mg PO QPM 03/28/17 Reported Coumadin (Warfarin Sodium) 5 Mg Tab 5 Mg PO 3XWK 03/27/17 Reported TUESDAY,TUESDAY,TUESDAY Cleocin (Clindamycin Hcl) 300 Mg Cap 2 Cap PO UD PRN 01/12/17 Reported Lipitor (Atorvastatin Calcium) 40 Mg Tab 40 Mg PO QAM 12/30/16 Reported Aspirin Ec (Aspirin) 81 Mg Tab 81 Mg PO QAM 12/30/16 Reported Glucophage (Metformin Hcl) 1,000 Mg Tab 1,000 Mg PO BID 11/23/16 Reported Lantus Solostar (Insulin Glargine) 100 Unit/Ml Inj 8 Units SQ QAM 11/23/16 Reported Lasix (Furosemide) 20 Mg Tab 20 Mg PO QAM 09/17/14 Reported Cozaar (Losartan Potassium) 50 Mg Tab 50 Mg PO QAM 09/17/14 Reported Vitamin D 1000 Unit (Cholecalciferol) 1,000 Unit Cap 1,000 Inter.unit PO QAM 03/10/14 Reported Nitrostat (Nitroglycerin) 0.4 Mg Sub 0.4 Mg UT UD PRN 11/07/[address] ONE TABLET UNDER THE TONGUE EVERY 5 MINUTES FOR UP TO 3 DOSES OVER 15 MINUTES IF NEEDED FOR CHEST PAIN. Physical Exam Vital Signs (Last 8hrs): Last 8 Hrs Date Time Temp Pulse Resp B/P (MAP) Pulse Ox O2 Delivery O2 Flow Rate FiO2 12/02/17 09:00 94 Room Air 12/02/17 07:18 36.4 117 20 113/84 (94) 93 Room Air 12/02/17 04:22 36.5 115 18 101/73 (82) 95 Room Air General: NAD. HEENT: Normocephalic. PER. Conjunctiva pink, sclera clear. Neck: Elevated JVP. No carotid bruits. Heart: Regular, 110 bpm. I could not appreciate a murmur Lungs: Decreased. Diminished. Faint left basilar rales. Abdomen: +BS. Soft. Nontender. No masses or organomegaly. Extremities: Trace to 1+ edema. No clubbing. No cyanosis. Pulses: radial=3/4, posterior tibial=3/4. Data Last 24 Hours Test 12/01/17 12:40 12/01/17 16:08 12/01/17 20:12 12/02/17 07:17 Vitamin B12 Level 296 pg/mL Folate 10.45 ng/mL Bedside Glucose 120 mg/dl 122 mg/dl 130 mg/dl Assessment & Plan Admission with intermittent confusion as well as acute on chronic dyspnea Mild acute decompensated diastolic heart failure appearing to be secondary to atrial fibrillation with a RVR and probable inappropriate ventricular activity/ pacing. Known paroxysmal atrial fibrillation and flutter. History of bifascicular AV block status post dual-chamber pacemaker insertion on 06/11/2015. [id number] score of 6, prescribed anticoagulation despite history of spontaneous intraparenchymal cerebral hemorrhage, February 2014 Stable ischemic heart disease Hypertension. Hyperlipidemia. RECOMMENDATIONS/PLAN: Low dose IV furosemide today along with oral supplemental potassium chloride [employer] device interrogation and reprogramming. (Reel Cart Operator contacted personally). Resting echocardiography primarily to assess his left ventricular systolic function Further recommendations pending the above, evaluation by Dr. Fairbanks, and his ongoing hospitalization.
[2017-12-02] MEDS ORDERED: FUROSEMIDE INJ 20 MG in SYRINGE 0 ML IV ONE (11:30)
[2017-12-02] MEDS ORDERED: POTASSIUM CHLORIDE 10 MEQ TABCR PO ONE (11:30)
[2017-12-02] MEDS: POLYETHYLENE (MIRALAX) 17 GM PACK PO PRN (11:50)
--- NOTE | 2017-12-02 13:06 | Progress Note ---
Internal Med Progress Note Date of Service: Dec 02, 2017. Provider Documentation: SUBJECTIVE: Patient denies chest pain or palpitations or shortness of breath. OBJECTIVE: General Appearance: no apparent distress Head: normocephalic, atraumatic Eyes: normal inspection, EOMI, sclerae normal ENT: normal ENT inspection, hearing grossly normal, pharynx normal Neck: supple, no JVD, trachea midline Respiratory/Chest: chest non-tender, lungs clear, normal breath sounds, no respiratory distress, no accessory muscle use Cardiovascular: no JVD, heart rate 60s beats per minute, presence of pacemaker Abdomen/GI: normal bowel sounds, non tender, soft Back: normal inspection, no CVA tenderness, no muscle spasm, normal range of motion Extremities/Musculoskelatal: normal inspection, no calf tenderness, trace lower extremity edema Neurologic/Psych: alert, normal mood/affect, oriented x 3 Skin: normal color, warm/dry, no rash ASSESSMENT & PLAN: Hospital Course and Plans Confusion and Memory deficits, reported -CT head on 12/01/17 generally without any acute events "There are age-related involutional changes noting moderate patchy subcortical and periventricular microangiopathic change. Small foci of right frontal and right posterior parietal encephalomalacia are consistent with remote infarcts. Small chronic lacunar infarcts are seen in the basal ganglia and the left thalamus. There is no hemorrhage, mass effect, or evidence of acute territorial ischemia by CT criteria. Galeano-white matter is preserved. No extra-axial fluid collection is seen" -no obvious infection - no leukocytosis, ESR normal, UA negative, no fever -patient did not appear to be confused when examined by hospitalist -Dementia workup with B12 and folic acid and TSH normal. RPR negative -patient denies depression -no episodes of delirium in the hospital -initial thoughts on the patient's evaluation is that patient's reported confusion or memory deficits may be due to some component of chronic microvascular disease of the brain. Patient does not appear to have acute stroke based on head CT. These episodes of confusion or memory deficits will need to be monitored over time as outpatient. -One reversible health condition that was corrected during the hospital stay was an over active pacemaker and this problem was corrected with assistance of cardiology service Catheter based intervention with bare metal stent to RCA and left circumflex coronary arteries with bare metal stent in 2002. S/P CABG - CLEARY to LAD and a saphenous vein graft to obtuse marginal branch and a modified Maze procedure and occlusion of the left atrial appendage 03/06/07. November 2016 NSTEMI, POBA of the RPDA with residual 50% stenosis. Systolic congestive heart failure. Prior EF 45%. LVEF at [facility] in November 2016 50-55 %. -CXR: Moderate cardiomegaly. Findings of a prior median sternotomy and bipolar cardiac pacemaker placement. Prominent pulmonary vasculature suggesting a component of congestive failure. 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 on 06/11/2015 -anticoagulated on coumadin -as per patient's daughter, coumadin 2.5 mg // and 5 mg daily on /Tue/Tue -INR 2.7 on admission, continue coumadin home schedule -unclear whether patient take morning dose of metoprolol and IV doses of metoprolol has been given, heart rates 110 bpm to 115 bpm, continue home dose beta mitchel starting with typical evening dose, continue to observe on telemetry -Patient was evaluated by cardiology service at the request of hospitalist who noted that patient's heart rate was persistently running at 115 beats per minute and being on a pacemaker Medtronic device interrogation and reprogramming was performed As per cardiology service Dr. Fairbanks, the patient had some atrial flutter and this caused the pacing of the pacemaker to be high Once the pacemaker was reprogrammed, the patient's heart rate in the 60s beats per minute Dr. Fairbanks expressed to hospitalist that patient is stable for hospital discharge from cardiac perspective HTN history -continue imdur and losartan and Lasix Diabetes -continue Lantus 8 units daily and home dose oral diabetes medications at home Reported falls at home -therapy evaluation / case management evaluation -Occupational Therapy "Pt is functioning WFL with ADLs and functional mobility. Pt with mild safety deficits, causing concern with pt's ability to safely use the stove at home and drive without further evaluation. Recommend Home OT evaluation upon discharge for further safety evaluation." -case management aware and may offer patient home services if he accepts Discharge Instructions Patient will need to go to the following clinic appointments 12/07/2017 11:00 AM [facility] Clinic [facility], [facility] 12/07/2017 11:30 AM Melo Rocha PA-C Cardiology, [facility] 12/09/2017 2:10 PM eMlo Carlos MD [facility] 12/23/2017 9:30 [facility] Vital Signs: Date Time Temp Pulse Resp B/P (MAP) Pulse Ox O2 Delivery O2 Flow Rate FiO2 12/02/17 11:03 36.6 116 22 105/77 (86) 93 12/02/17 09:00 94 Room Air 12/02/17 07:18 36.4 117 20 113/84 (94) 93 Room Air 12/02/17 04:22 36.5 115 18 101/73 (82) 95 Room Air 12/02/17 00:20 Room Air 12/02/17 00:06 36.6 115 18 113/78 (90) 95 Room Air 12/01/17 20:00 93 Room Air 12/01/17 19:09 36.3 118 20 102/85 (91) 92 Room Air 12/01/17 16:00 91 Room Air 12/01/17 15:37 36.3 113 20 112/88 (96) 91 Room Air 12/01/17 14:52 118 110/83 Lab Results: Results Past 24 Hours Test 12/01/17 16:08 12/01/17 20:12 12/02/17 07:17 12/02/17 11:47 Range/Units Bedside Glucose 120 122 130 156 70-99 mg/dl
--- NOTE | 2017-12-02 13:11 | PROGRESS NOTE ---
DATE: 12/02/2017 Please refer to full consultation by Melo Rocha earlier today. Patient was seen and examined with Melo Rocha. I agree with assessment and plan. Patient reexamined in association with [employer] device interrogation with study demonstrating patient having lapsed into atrial flutter approximately 1 month ago. Pacemaker in its current setting was tracking upper rates at 120. Pacemaker has been reprogrammed to VVIR with appropriate rate control. This should help in functional capacity. He anticipates followup with cardiology as scheduled on 12/07/2017. Will continue all medications as currently prescribed.
--- NOTE | 2017-12-02 13:36 | Discharge Instructions ---
Discharge Instructions Date of Service Dec 02, 2017. Admission Reason for Admission: Memory Difficulties Discharge Discharge Diagnosis / Problem: memory deficit (reported), chronic congestive heart failure, pacemaker Discharge Goals Goal(s): Improve disease control Activity Recommendations Activity Limitations: per Instructions/Follow-up section . Instructions / Follow-Up Instructions / Follow-Up Hospital Course and Plans Confusion and Memory deficits, reported -CT head on 12/01/17 generally without any acute events "There are age-related involutional changes noting moderate patchy subcortical and periventricular microangiopathic change. Small foci of right frontal and right posterior parietal encephalomalacia are consistent with remote infarcts. Small chronic lacunar infarcts are seen in the basal ganglia and the left thalamus. There is no hemorrhage, mass effect, or evidence of acute territorial ischemia by CT criteria. Galeano-white matter is preserved. No extra-axial fluid collection is seen" -no obvious infection - no leukocytosis, ESR normal, UA negative, no fever -patient did not appear to be confused when examined by hospitalist -Dementia workup with B12 and folic acid and TSH normal. RPR negative -patient denies depression -no episodes of delirium in the hospital -initial thoughts on the patient's evaluation is that patient's reported confusion or memory deficits may be due to some component of chronic microvascular disease of the brain. Patient does not appear to have acute stroke based on head CT. These episodes of confusion or memory deficits will need to be monitored over time as outpatient. -One reversible health condition that was corrected during the hospital stay was an over active pacemaker and this problem was corrected with assistance of cardiology service Catheter based intervention with bare metal stent to RCA and left circumflex coronary arteries with bare metal stent in 2002. S/P CABG - CLEARY to LAD and a saphenous vein graft to obtuse marginal branch and a modified Maze procedure and occlusion of the left atrial appendage 03/06/07. November 2016 NSTEMI, POBA of the RPDA with residual 50% stenosis. Systolic congestive heart failure. Prior EF 45%. LVEF at [facility] in November 2016 50-55 %. -CXR: Moderate cardiomegaly. Findings of a prior median sternotomy and bipolar cardiac pacemaker placement. Prominent pulmonary vasculature suggesting a component of congestive failure. 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 on 06/11/2015 -anticoagulated on coumadin -as per patient's daughter, coumadin 2.5 mg // and 5 mg daily on /Tue/Tue -INR 2.7 on admission, continue coumadin home schedule -unclear whether patient take morning dose of metoprolol and IV doses of metoprolol has been given, heart rates 110 bpm to 115 bpm, continue home dose beta mitchel starting with typical evening dose, continue to observe on telemetry -Patient was evaluated by cardiology service at the request of hospitalist who noted that patient's heart rate was persistently running at 115 beats per minute and being on a pacemaker Medtronic device interrogation and reprogramming was performed As per cardiology service Dr. Fairbanks, the patient had some atrial flutter and this caused the pacing of the pacemaker to be high Once the pacemaker was reprogrammed, the patient's heart rate in the 60s beats per minute Dr. Fairbanks expressed to hospitalist that patient is stable for hospital discharge from cardiac perspective HTN history -continue imdur and losartan and Lasix Diabetes -continue Lantus 8 units daily and home dose oral diabetes medications at home Reported falls at home -therapy evaluation / case management evaluation -Occupational Therapy "Pt is functioning WFL with ADLs and functional mobility. Pt with mild safety deficits, causing concern with pt's ability to safely use the stove at home and drive without further evaluation. Recommend Home OT evaluation upon discharge for further safety evaluation." -case management aware and may offer patient home services if he accepts Discharge Instructions Patient will need to go to the following clinic appointments 12/07/2017 11:00 AM Pacer Clinic [facility] Cardiology, [facility] 12/07/2017 11:30 AM Melo Rocha PA-C Cardiology, [facility] 12/09/2017 2:10 PM Melo Carlos MD [facility] 12/23/2017 9:30 AM [facility] [place] Call your Primary Care doctor if any of the following symptoms or problems start or get worse: * Shortness of breath or difficulty breathing * Wake up at night short of breath * Chest pain * Cough * Swelling of your hands, feet, or legs * More fatigued or tired with your normal activity * Palpitations - sudden fast heart beats WEIGHT * Weigh yourself every morning after using the bathroom. * Use the same scale. * Wear the same amount of clothing. * Write your weight down on a chart. * Call your Primary Care doctor if you gain more than 2-3 pounds in 1-2 days. MEDICATIONS * Use this discharge instruction sheet for medication instructions. * Take your medications at the time your doctor ordered. * Do not skip a dose of your medicines. * If you miss a dose of medicine, take it as soon as possible, but DO NOT DOUBLE A DOSE. * Read your medicine information when you get home. * Know all of the side effects of your medicine. If in doubt, ask your pharmacist * Call your Primary Care doctor's office if you have any side effects. * Be sure all of your doctors know what medicine and herbs you take (including cold, flu, and herbal medicine). Take the following with you to your follow-up doctor appointments: * Weight Chart * Medication List * List of questions Do not drink excessive alcohol, beer or wine. Current Hospital Diet Patient's current hospital diet: Diabetes Type 2 Diet, AHA Diet (Heart Healthy) , Low Sodium Diet (2gm Na) Discharge Diet Recommended Diet: AHA Diet (Heart Healthy), Low Sodium Diet (2gm Na) Pending Studies Studies pending at discharge: yes List of pending studies: echocardiogram performed, full report pending Laboratory Results 12/01/17 09:23 Red Blood Count 3.98, Mean Corpuscular Volume 96.5, Mean Corpuscular Hemoglobin 31.7, Mean Corpuscular Hemoglobin Concent 32.8, Mean Platelet Volume 11.2, Neutrophils (%) (Auto) 62.6, Lymphocytes (%) (Auto) 18.6, Monocytes (%) (Auto) 13.9, Eosinophils (%) (Auto) 4.0, Basophils (%) (Auto) 0.6, Neutrophils # (Auto ) 4.90, Lymphocytes # (Auto) 1.46, Monocytes # (Auto) 1.09, Eosinophils # (Auto ) 0.31, Basophils # (Auto) 0.05 12/01/17 09:23 Test 12/01/17 09:23 12/01/17 10:35 12/01/17 12:40 12/02/17 11:47 White Blood Count 7.83 K/uL (4.8-10.8) Red Blood Count 3.98 M/uL (4.7-6.1) Hemoglobin 12.6 g/dL (14.0-18.0) Hematocrit 38.4 % (42-52) Mean Corpuscular Volume 96.5 fL (80-100) Mean Corpuscular Hemoglobin 31.7 pg (25-34) Mean Corpuscular Hemoglobin Concent 32.8 g/dl (32-36) Platelet Count 135 K/uL (130-400) Mean Platelet Volume 11.2 fL (7.4-10.4) Neutrophils (%) (Auto) 62.6 % Lymphocytes (%) (Auto) 18.6 % Monocytes (%) (Auto) 13.9 % Eosinophils (%) (Auto) 4.0 % Basophils (%) (Auto) 0.6 % Neutrophils # (Auto) 4.90 K/uL (1.4-6.5) Lymphocytes # (Auto) 1.46 K/uL (1.2-3.4) Monocytes # (Auto) 1.09 K/uL (0.11-0.59) Eosinophils # (Auto) 0.31 K/uL (0-0.5) Basophils # (Auto) 0.05 K/uL (0-0.2) RDW Standard Deviation 54.8 fL (36.4-46.3) RDW Coefficient of Variation 15.6 % (11.5-14.5) Immature Granulocyte % (Auto) 0.3 % Immature Granulocyte # (Auto) 0.02 K/uL (0.00-0.02) Erythrocyte Sedimentation Rate 2 mm/hr (0-14) Prothrombin Time 28.3 SECONDS (9.0-12.0) Prothromb Time International Ratio 2.7 (0.9-1.1) Activated Partial Thromboplast Time 33.6 SECONDS (21.0-31.0) Partial Thromboplastin Ratio 1.3 Anion Gap 9.0 mmol/L (3-11) Est Creatinine Clear Calc Drug Dose 64.0 ml/min Estimated GFR () 75.4 Estimated GFR (Non- 65.0 BUN/Creatinine Ratio 21.0 (10-20) Calcium Level 8.7 mg/dl (8.5-10.1) Magnesium Level 1.8 mg/dl (1.8-2.4) Total Bilirubin 1.7 mg/dl (0.2-1) Direct Bilirubin 0.5 mg/dl (0-0.2) Aspartate Amino Transf (AST/SGOT) 29 U/L (15-37) Alanine Aminotransferase (ALT/SGPT) 32 U/L (12-78) Alkaline Phosphatase 68 U/L (45-117) Troponin I < 0.015 ng/ml (0-0.045) Pro-B-Type Natriuretic Peptide 4482 pg/ml (0-1800) Total Protein 6.9 gm/dl (6.4-8.2) Albumin 3.8 gm/dl (3.4-5.0) Procalcitonin < 0.05 ng/ml (0-0.5) Thyroid Stimulating Hormone (TSH) 4.160 uIu/ml (0.300-4.500) Rapid Plasma Reagin NONREACTIVE (NONREACT) Urine Color YELLOW Urine Appearance CLEAR (CLEAR) Urine pH 5.0 (4.5-7.5) Urine Specific Ward 1.020 (1.000-1.030) Urine Protein NEG (NEG) Urine Glucose (UA) NEG (NEG) Urine Ketones NEG (NEG) Urine Occult Blood NEG (NEG) Urine Nitrite NEG (NEG) Urine Bilirubin NEG (NEG) Urine Urobilinogen NEG (NEG) Urine Leukocyte Esterase NEG (NEG) Vitamin B12 Level 296 pg/mL (211-911) Folate 10.45 ng/mL (>5.38) Bedside Glucose 156 mg/dl (70-99) Medical Emergencies . Who to Call and When: Call 911 or go to the Emergency Room if: * If at any time you feel your situation is an emergency * You have tightness or pain in your chest that does not go away with rest or Nitroglycerin * You are very short of breath even with rest . Non-Emergent Contact Non-Emergency issues call your: Primary Care Provider, Director Of Clinical Services Call Non-Emergent contact if: you have any medication questions . . "Provider Documentation" section prepared by Jem Manzano. .
--- NOTE | 2017-12-02 13:36 | Discharge Summary ---
Discharge Summary Date of Service Dec 02, 2017. Discharge Summary Admission Date: Dec 01, 2017 at 11:54 Discharge Date: Dec 02, 2017 Discharge Disposition: Home with services Principal Diagnosis: memory deficit (reported), chronic congestive heart failure, pacemaker, tachycardia due to over paced pacemaker Medication Reconciliation Continued Medications: Amlodipine (Norvasc) 5 Mg Tab 5 MG PO BID Aspirin (Aspirin Ec) 81 Mg Tab 81 MG PO QAM Atorvastatin (Lipitor) 40 Mg Tab 40 MG PO QAM Cholecalciferol (Vitamin D 1000 Unit) 1,000 Unit Cap 1000 INTER.UNIT PO QAM Clindamycin Hcl (Cleocin) 300 Mg Cap 2 CAP PO UD PRN for prior to dental work Furosemide (Lasix) 20 Mg Tab 20 MG PO QAM Insulin Glargine (Lantus Solostar) 100 Unit/Ml Inj 8 UNITS SQ QAM Isosorbide Mononitrate Ext Rel (Imdur Ext Rel) 30 Mg Ertab 30 MG PO QPM Losartan Potassium (Cozaar) 50 Mg Tab 50 MG PO QAM Metformin Hcl (Glucophage) 1,000 Mg Tab 1000 MG PO BID Metoprolol Succinate (Toprol Xl) 50 Mg Tab 50 MG PO BID Nitroglycerin (Nitrostat) 0.4 Mg Sub 0.4 MG UT UD PRN for Chest Pain PLACE ONE TABLET UNDER THE TONGUE EVERY 5 MINUTES FOR UP TO 3 DOSES OVER 15 MINUTES IF NEEDED FOR CHEST PAIN. Pantoprazole (Protonix) 40 Mg Tab 40 MG PO QAM Polyethylene Glycol 3350 (Miralax) 1 Pow Pow 17 GM PO DAILY, #255 GM Repaglinide (Repaglinide) 2 Mg Tab 4 MG PO TID Warfarin Sod (Jantoven) 2.5 Mg Tab 2.5 MG PO Q2D, TAB PT TAKES 2.5MG ON TUESDAY,TUESDAY,TUESDAY, AND TUESDAY Warfarin Sodium (Coumadin) 5 Mg Tab 5 MG PO 3XWK TUESDAY,TUESDAY,TUESDAY Admission Information HPI (per Admitting provider): The patient is an 82 year old male who is accompanied by family friend and daughter. As per patient and the family, the patient has been noted to have symptoms of confusion. They give the example of him calling a friend and confused of the time of day whether it was day or night. Patient has reported to have 2 falls, 1 time when he was getting up from rest and 1 time when he was trying to sit down and missed the chair. Patient's daughter is concerned that there has been progressive decline with his functioning and mental status, although based on their history and patient's present mental he appears to be answering questions appropriately. Patient denies fever, or chest pain. He does indicate that sometimes when he is walking he needs to stop but it is unclear whether he needs to stop because he is tired or short of breath. Patient does have history of cardiac disease. However, breathing and speaking comfortably on room air. Physical Exam (per Admitting): General Appearance: WD/WN, no apparent distress Head: normocephalic, atraumatic Eyes: normal inspection, PERRL, EOMI, sclerae normal ENT: normal ENT inspection, hearing grossly normal, pharynx normal Neck: supple, no JVD, trachea midline Respiratory/Chest: chest non-tender, lungs clear, normal breath sounds, no respiratory distress, no accessory muscle use Cardiovascular: no edema, no JVD, normal peripheral pulses, + tachycardia Abdomen/GI: normal bowel sounds, non tender, soft Back: normal inspection, no CVA tenderness, no muscle spasm, normal range of motion Extremities/Musculoskelatal: normal inspection, no calf tenderness, normal capillary refill, no pedal edema, normal range of motion, non-tender 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 Small foci of right frontal and right posterior parietal encephalomalacia are consistent with remote infarcts. Small chronic lacunar infarcts are seen in the basal ganglia and the left thalamus. There is no hemorrhage, mass effect, or evidence of acute territorial ischemia by CT criteria. Galeano-white matter is preserved. No extra-axial fluid collection is seen" -no obvious infection - no leukocytosis, ESR normal, UA negative, no fever -patient did not appear to be confused when examined by hospitalist -Dementia workup with B12 and folic acid and TSH normal. RPR negative -patient denies depression -no episodes of delirium in the hospital -initial thoughts on the patient's evaluation is that patient's reported confusion or memory deficits may be due to some component of chronic microvascular disease of the brain. Patient does not appear to have acute stroke based on head CT. These episodes of confusion or memory deficits will need to be monitored over time as outpatient. -One reversible health condition that was corrected during the hospital stay was an over active pacemaker and this problem was corrected with assistance of cardiology service Catheter based intervention with bare metal stent to RCA and left circumflex coronary arteries with bare metal stent in 2002. S/P CABG - CLEARY to LAD and a saphenous vein graft to obtuse marginal branch and a modified Maze procedure and occlusion of the left atrial appendage 03/06/07. November 2016 NSTEMI, POBA of the RPDA with residual 50% stenosis. Systolic congestive heart failure. Prior EF 45%. LVEF at [facility] in November 2016 50-55 %. -CXR: Moderate cardiomegaly. Findings of a prior median sternotomy and bipolar cardiac pacemaker placement. Prominent pulmonary vasculature suggesting a component of congestive failure. 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 on 06/11/2015 -anticoagulated on coumadin -as per patient's daughter, coumadin 2.5 mg // and 5 mg daily on /Tue/Tue -INR 2.7 on admission, continue coumadin home schedule -unclear whether patient take morning dose of metoprolol and IV doses of metoprolol has been given, heart rates 110 bpm to 115 bpm, continue home dose beta mitchel starting with typical evening dose, continue to observe on telemetry -Patient was evaluated by cardiology service at the request of hospitalist who noted that patient's heart rate was persistently running at 115 beats per minute and being on a pacemaker DN2K device interrogation and reprogramming was performed As per cardiology service Dr. Fairbanks, the patient had some atrial flutter and this caused the pacing of the pacemaker to be high Once the pacemaker was reprogrammed, the patient's heart rate in the 60s beats per minute Dr. Fairbanks expressed to hospitalist that patient is stable for hospital discharge from cardiac perspective HTN history -continue imdur and losartan and Lasix Diabetes -continue Lantus 8 units daily and home dose oral diabetes medications at home Reported falls at home -therapy evaluation / case management evaluation -Occupational Therapy "Pt is functioning WFL with ADLs and functional mobility. Pt with mild safety deficits, causing concern with pt's ability to safely use the stove at home and drive without further evaluation. Recommend Home OT evaluation upon discharge for further safety evaluation." -case management aware and may offer patient home services if he accepts Discharge Instructions Patient will need to go to the following clinic appointments 12/07/2017 11:00 AM [facility] Cardiology, [facility] 12/07/2017 11:30 AM Melo Rocha PA-C Cardiology, [facility] 12/09/2017 2:10 PM Melo Carlos MD [facility] 12/23/2017 9:30 AM [facility] Total time spent on discharge = 40 minutes This includes examination of the patient, discharge planning, medication reconciliation, and communication with other providers. Discharge Instructions Discharge Instructions Patient will need to go to the following clinic appointments 12/07/2017 11:00 AM Pacer Clinic [facility] Cardiology, [facility] 12/07/2017 11:30 AM Melo Rocha PA-C Cardiology [facility] 12/09/2017 2:10 PM Melo Carlos MD [facility] 12/23/2017 9:30 AM [facility] [place] Call your Primary Care doctor if any of the following symptoms or problems start or get worse: Shortness of breath or difficulty breathing Wake up at night short of breath Chest pain Cough Swelling of your hands, feet, or legs More fatigued or tired with your normal activity Palpitations - sudden fast heart beats WEIGHT Weigh yourself every morning after using the bathroom. Use the same scale. Wear the same amount of clothing. Write your weight down on a chart. Call your Primary Care doctor if you gain more than 2-3 pounds in 1-2 days. MEDICATIONS Use this discharge instruction sheet for medication instructions. Take your medications at the time your doctor ordered. Do not skip a dose of your medicines. If you miss a dose of medicine, take it as soon as possible, but DO NOT DOUBLE A DOSE. Read your medicine information when you get home. Know all of the side effects of your medicine. If in doubt, ask your pharmacist Call your Primary Care doctor's office if you have any side effects. Be sure all of your doctors know what medicine and herbs you take (including cold, flu, and herbal medicine). Take the following with you to your follow-up doctor appointments: Weight Chart Medication List List of questions Do not drink excessive alcohol, beer or wine.
[2017-12-02] MEDS ORDERED: PERFLUTREN LIPID MICROSPHERE (DEFINITY) IV ONE (14:02)
--- NOTE | 2017-12-02 15:26 | ECHOCARDIOGRAM REPORT ---
*NOTICE TO RECEIVING [employer] This information is strictly Confidential and protected under [place] law. [place] law prohibits you from making any further disclosure of this information unless further disclosure is expressly permitted by the written consent of the person to whom it pertains or is authorized by law. A general authorization for the release of medical or other information is not sufficient for this purpose. Hospital accepts no responsibility if the information is made available to any other person, INCLUDING THE PATIENT. Interpretation Summary * Name: ANTOINETTE AHUMADA Study Date: 12/02/2017 01:29 PM BP: 105/77 mmHg * Patient Location: C.2E\S\E209\S\1 HR: 116 * : 1935 (M/d/yy) Gender: Male Height: 70 in * Age: 82 yrs Ethnicity: [place] Weight: 215 lb * Ordering Physician: Melo Rocha * Referring Physician: Self, Referred * Performed By: Eileen Petersen RDCS * * Reason For Study: Atrial Fibrillation * BSA: 2.2 m2 * -- Conclusions -- * The left ventricle is normal in size. * There is mild concentric left ventricular hypertrophy. * Apical wall motion abnormality may reflect pacemaker activation. * There is mild to moderate global hypokinesis of the left ventricle. * There is focal hypokinesis of the apical inferior and posterior ray. * Ejection Fraction = 40-45%. * The left atrium is moderately dilated. * There is moderate mitral annular calcification with restricted posterior mitral valve leaflet mobility * There is moderate to severe mitral regurgitation. * There is moderate to severe tricuspid regurgitation. Procedure Details * A complete two-dimensional transthoracic echocardiogram was performed (2D, M-mode, Doppler and color flow Doppler). * A contrast injection of Definity was performed to improve assessment of LV function. * Contrast was injected into an intravenous site in the right arm. * One vial of Definity ultrasound contrast was diluted in normal saline to a total volume of 10 ml. A total of '2' ml of solution was administered during imaging. * Lot # [id number] of Definity utilized for procedure. * Expiration date 1MAY19. * The attending nurse who injected the contrast agent was ERNESTINA Quintero. Left Ventricle * The left ventricle is normal in size. * There is mild concentric left ventricular hypertrophy. * Ejection Fraction = 40-45%. * Apical wall motion abnormality may reflect pacemaker activation. * There is mild to moderate global hypokinesis of the left ventricle. * There is focal hypokinesis of the apical inferior and posterior ray. Right Ventricle * The right ventricle is normal in size and function. * There is a pacemaker lead in the right ventricle. Atria * The left atrium is moderately dilated. * Right atrial size is normal. * No ASD detected; PFO is not assessed. Mitral Valve * There is moderate mitral annular calcification with restricted posterior mitral valve leaflet mobility * There is no mitral valve stenosis. * There is moderate to severe mitral regurgitation. Tricuspid Valve * The tricuspid valve is normal. * There is no tricuspid stenosis. * There is moderate to severe tricuspid regurgitation. Aortic Valve * The aortic valve is trileaflet. * Aortic valve leaflets are moderately calcified * No hemodynamically significant valvular aortic stenosis. * No aortic regurgitation is present. Pulmonic Valve * The pulmonic valve is not well visualized. Great Vessels * The aortic root is normal size. Pericardium/Pleural * There is no pericardial effusion. * Moderate size left pleural effusion. Great Vessels * Normal inferior vena cava diameter and respiratory variation suggests normal central venous pressure. MMode 2D Measurements and Calculations IVSd 0.99 cm IVSs 1.3 cm LVIDd 5.5 cm LVIDs 4.4 cm LVPWd 1.2 cm LVPWs 1.5 cm IVS/LVPW 0.81 FS 18.8 % EDV(Teich) 145.0 ml ESV(Teich) 89.4 ml EF(Teich) 38.3 % EDV(cubed) 162.8 ml ESV(cubed) 87.3 ml EF(cubed) 46.4 % % IVS thick 29.4 % % LVPW thick 20.8 % LV mass(C)d 239.8 grams LV mass(C)dI 111.4 grams/m\S\2 LV mass(C)s 236.5 grams LV mass(C)sI 109.9 grams/m\S\2 SV(Teich) 55.6 ml SI(Teich) 25.8 ml/m\S\2 SV(cubed) 75.5 ml SI(cubed) 35.1 ml/m\S\2 Ao root diam 3.2 cm Ao root area 8.1 cm\S\2 ACS 1.6 cm LA dimension 4.8 cm LA/Ao 1.5 LVAd ap4 47.2 cm\S\2 LVLd ap4 9.7 cm EDV(MOD-sp4) 191.9 ml EDV(sp4-el) 194.2 ml LVAs ap4 37.9 cm\S\2 LVLs ap4 9.3 cm ESV(MOD-sp4) 127.5 ml ESV(sp4-el) 130.4 ml EF(MOD-sp4) 33.6 % EF(sp4-el) 32.9 % LVAd ap2 47.9 cm\S\2 LVLd ap2 9.6 cm EDV(MOD-sp2) 201.2 ml EDV(sp2-el) 203.5 ml LVAs ap2 37.9 cm\S\2 LVLs ap2 9.1 cm ESV(MOD-sp2) 134.3 ml ESV(sp2-el) 134.7 ml EF(MOD-sp2) 33.3 % EF(sp2-el) 33.8 % LVLd %diff -1.68 % EDV(MOD-bp) 198.9 ml LVLs %diff -3.17 % ESV(MOD-bp) 131.1 ml EF(MOD-bp) 34.1 % SV(MOD-sp4) 64.4 ml SI(MOD-sp4) 29.9 ml/m\S\2 SV(MOD-sp2) 66.9 ml SI(MOD-sp2) 31.1 ml/m\S\2 SV(MOD-bp) 67.8 ml SI(MOD-bp) 31.5 ml/m\S\2 SV(sp4-el) 63.9 ml SI(sp4-el) 29.7 ml/m\S\2 SV(sp2-el) 68.8 ml SI(sp2-el) 32.0 ml/m\S\2 Doppler Measurements and Calculations MV E max maribel 81.2 cm/sec MV dec time 0.28 sec Ao V2 max 125.5 cm/sec Ao max PG 6.3 mmHg Ao max PG (full) 2.6 mmHg LV V1 max PG 3.7 mmHg LV V1 max 96.6 cm/sec MR max maribel 381.4 cm/sec MR max PG 58.2 mmHg MR mean maribel 291.0 cm/sec MR mean PG 38.0 mmHg MR VTI 134.7 cm MR PISA 2.2 cm\S\2 MR PISA radius 0.60 cm PA V2 max 76.7 cm/sec PA max PG 2.4 mmHg PI max maribel 85.4 cm/sec PI max PG 2.9 mmHg PI dec slope 26.9 cm/sec\S\2 PI P1/2t 930.8 msec TR max maribel 225.6 cm/sec
[2017-12-05] MEDS ORDERED: WARFARIN SOD 2.5 MG TAB PO SCH (16:00)
== END 2017-12-02 15:13 | disposition home or self-care (01) ==
LOC: C.EDB 08:53 → C.2E 11:54 → ENRESERV 12:01
PROVIDERS: ADMIT Hospitalist; ATTEND Hospitalist
DX: R41.0 Disorientation, unspecified (principal); I50.9 Heart failure, unspecified; Z95.0 Presence of cardiac pacemaker; R00.0 Tachycardia, unspecified; I11.0 Hypertensive heart disease with heart failure; E11.9 Type 2 diabetes mellitus without complications; I48.0 Paroxysmal atrial fibrillation; R29.6 Repeated falls; I25.10 Atherosclerotic heart disease of native coronary artery without angina pectoris; E78.5 Hyperlipidemia, unspecified; Z79.4 Long term (current) use of insulin; Z79.82 Long term (current) use of aspirin; Z79.84 Long term (current) use of oral hypoglycemic drugs; Z79.01 Long term (current) use of anticoagulants; Z79.899 Other long term (current) drug therapy; Z87.891 Personal history of nicotine dependence; Z95.1 Presence of aortocoronary bypass graft; Z82.49 Family history of ischemic heart disease and other diseases of the circulatory system; Z88.0 Allergy status to penicillin; Z88.8 Allergy status to other drugs, medicaments and biological substances

== ENCOUNTER 2019-12-13 16:23 | Inpatient (IN) ==
--- NOTE | 2019-12-13 17:20 | XRay Report ---
XR chest 1V portable HISTORY: 84 years-old Male weakness acute weakness COMPARISON: Chest radiograph 12/01/2017 TECHNIQUE: Portable AP view the chest FINDINGS: Cardiac silhouette is enlarged, unchanged. Prior median sternotomy and CABG. Left subclavian pacer. M ild pulmonary vascular congestion. Chronic interstitial coarsening. No pneumothorax, large pleural ef fusion or airspace consolidation typical for pneumonia. No overt pulmonary edema. IMPRESSION: 1. Cardiomegaly with pulmonary vascular congestion. 2. Chronic interstitial coarsening ACT 112: Negative or not required by law. The above report was generated using voice recognition software. It may contain grammatical, syntax o r spelling errors. Electronically signed by: Bruno Ferreira M.D. 12/13/2019 5:19 PM
[2019-12-13 17:29] LABS: Hematocrit (blood only) 35.8 % (42-52); Hemoglobin 11.8 g/dL (14.0-18.0); Mean Corpuscular Hemoglobin 31.5 pg (25-34); Mean Corpuscular Volume 95.5 fL (80-100); Mean Platelet Volume 10.6 fL (7.4-10.4); Nucleated RBC # (auto) 0.02 K/uL (0-0); Nucleated RBC % (auto) 0.1 %; Platelet Count 171 K/uL (130-400); RDW Coefficient of Variation 15.6 % (11.5-14.5); Red Blood Count 3.75 M/uL (4.7-6.1); White Blood Count 14.26 K/uL (4.8-10.8)
--- NOTE | 2019-12-13 17:38 | Emergency Department Note ---
Impression & Plan Acute alteration in mental status, Cellulitis ED Provider Note NAME: ANTOINETTE AHUMADA AGE: 84 SEX: M : 1935 ARRIVES VIA: Ambulance INFORMANT: Patient, the patient's family member ED PROVIDER(S): Chaim Wells DO CHIEF COMPLAINT: Altered mental status HPI: The patient is an 84-year-old male who presented to the [facility] via ambulance for an evaluation of altered mental status. The patient was seen this morning for an evaluation of left foot pain. Apparently his left foot was hurting him after golfing and this was felt to be musculoskeletal in nature. The patient was prescribed pain medication. He does admit to taking pain medication after he left our facility. The patient was noted to have an acute alteration in his mental status. There is significant concern by the family so the patient was brought to the emergency department via ALS. At this point the patient does not have any specific complaints but does state that his left foot has been hurting him since yesterday. He does not remember any specific injury. He denies having any chest pain or difficulty breathing. He denies having any headache or weakness in the arms or legs. His family member does supply most of the history at this time. ROS: See above HPI for pertinent positives & negatives. A total of 10 systems reviewed and were otherwise negative. PAST MEDICAL HISTORY: See Below PAST SURGICAL HISTORY: See Below FAMILY HISTORY: See Below SOCIAL HISTORY: See Below HOME MEDICATIONS: See Below ALLERGIES: See Below VITALS: See Below PHYSICAL EXAMINATION: GENERAL: The patient is awake and alert. He is nonanxious appearing and does follow commands. EYES: The conjunctivae are clear. The pupils are round and reactive. EARS, NOSE, MOUTH AND THROAT: The nose is without any evidence of any deformity. Mucous membranes are moist. NECK: The neck is nontender and supple. RESPIRATORY: Shallow respirations were noted. There were rales noted at both bases. There is no tachypnea or conversational dyspnea. CARDIOVASCULAR: Irregular rhythm was noted to auscultation. A systolic murmur was suggested. GASTROINTESTINAL: The abdomen is soft. Abdomen is nontender. MUSCULOSKELETAL/EXTREMITIES: There is no evidence of gross deformity full range of motion is noted in the hips and shoulders. SKIN: Pedal edema was noted bilaterally left greater than right. Pulses were symmetric in both feet. There is mild erythema in the left lower extremity. NEUROLOGIC: Patient is awake and oriented to person place but not time. He does recognize me from a previous visit. He does recognize his family member. There is no facial droop. City Collector strength is symmetric. Strength in the lower extremities is diminished but symmetric. MEDICAL DECISION MAKING: The patient is an 84-year-old male who presented to the emergency department for an evaluation of altered mental status. The patient was seen in our facility this morning for unrelated complaints. At that time he was complaining of left foot pain and even said that he had hurt it while he was outdoors. The patient did not have a fever at that time he presents to the emergency department again for altered mental status. He was given a pain medication upon discharge for the foot pain. His family member accompanied him to the emergency department and his daughter called me to let me know that the patient was coming to the hospital. Apparently the patient did take the pain medication and initially his altered mental status was felt to be secondary to the pain medication however his daughter states that he did have some confusion earlier today prior to coming to the emergency department. The patient's CAT scan does not show any acute disease. The left leg does show some erythema as well as some swelling and could be consistent with cellulitis. His white blood cell count was elevated. For this reason he was started on IV antibiotics. I discussed the patient's laboratory and radiographic studies with the patient's daughter. I also discussed his case with the on-call [facility] hospitalist group. They have agreed to evaluate the patient in the emergency department for further manageme nt and disposition. Triage Nursing notes reviewed. Prior medical records reviewed Vital Signs: reviewed and remarkable for no significant abnormalities Differential diagnosis: Infection, hypoglycemia, electrolyte abnormalities, overdose, toxicologic, cardiac sources, intracerebral event, neurologic, trauma, as well as other pathologies. ER treatment provided: See below Diagnostics interpreted by me: ECG: EKG was obtained in the emergency department. My interpretation is vent ricular paced rhythm at 64 bpm. Some lytton beats were noted with a bundle branch block pattern underlying. This was compared to a tracing from September 042018. No significant changes were noted. Cardiac Monitoring: An order was placed for continuous cardiac monitoring. The monitor shows a rate of 70 with paced rhythm. Laboratory studies: As stated above and show below. Imaging studies: See below Consultation(s): 1930: I discussed this case with Jaida who was covering for the [facility] hospitalist group. They have agreed to evaluate the patient in the emergency department for further management and disposition. Past Med/Surg History Medical History ACS (acute coronary syndrome) CAD (coronary artery disease) (Chronic) Chronic anticoagulation (Chronic) DM type 2 (diabetes mellitus, type 2) (Chronic) Dyslipidemia (Chronic) Dyspnea on exertion (Acute) Gout (Chronic) History of cerebral hemorrhage (Chronic) HTN (hypertension) (Chronic) Pacemaker (Chronic) Pancreatic cancer (Chronic) Paroxysmal atrial fibrillation (Chronic) Sinus node dysfunction (Chronic) SSS (sick sinus syndrome) Surgical History H/O arthroscopic knee surgery (Chronic) H/O colonoscopy (Chronic) H/O esophagogastroduodenoscopy (Chronic) H/O inguinal hernia repair (Chronic) History of pancreatectomy (Chronic) "07/15/2010 Dr. [place]co [facility] [place] S/P CABG x 1 (Chronic) S/P coronary artery stent placement (Chronic) "03/29/03 cardiac cath: RCA - stent of 90% lesion, L circ obtuse kenneth - stent of 80% lesion " S/P splenectomy (Chronic) S/P tonsillectomy and adenoidectomy (Chronic) Family History Other Family history non-contributory Social History Smoking Status: Never smoker Tobacco Type: Cigarettes Preferred Language: Bulgarian marital status: / Current Living Situation: Alone current occupational status: retired Feels Safe at Home: Yes Allergies Allergies Allergy/AdvReac Type Severity Reaction Status Date / Time Penicillins Allergy Intermediate HIVES Verified 12/13/19 06:55 clopidogrel Allergy Mild INTERNAL Verified 12/13/19 06:55 HIVES Home Meds Home Medications Medication Instructions Recorded Confirmed amlodipine 5 mg PO BID 09/04/18 12/13/19 aspirin 81 mg PO DAILY 09/04/18 12/13/19 atorvastatin 40 mg PO DAILY 09/04/18 12/13/19 cholecalciferol (vitamin D3) 1,000 unit PO DAILY 09/04/18 12/13/19 [Vitamin D3] furosemide 20 mg PO DAILY 09/04/18 12/13/19 insulin glargine [Lantus Solostar 8 units SUBCUT DAILY 09/04/18 12/13/19 U-100 Insulin] isosorbide mononitrate 60 mg PO HS 09/04/18 12/13/19 losartan 50 mg PO DAILY 09/04/18 12/13/19 metformin 1,000 mg PO BID 09/04/18 12/13/19 metoprolol succinate 50 mg PO BID 09/04/18 12/13/19 nitroglycerin [Nitrostat] 0.4 mg SUBLINGUAL UD PRN 09/04/18 12/13/19 pantoprazole 40 mg PO DAILY 09/04/18 12/13/19 polyethylene glycol 3350 17 g PO BID PRN 09/04/18 12/13/19 repaglinide 4 mg PO TIDM 09/04/18 12/13/19 warfarin 2.5 - 5 mg PO UD 09/04/18 12/13/19 linagliptin [Tradjenta] 5 mg PO DAILY 12/13/19 12/13/19 Previous Rx's Medication Instructions Recorded clindamycin HCl 300 mg capsule 600 mg PO ONCE #2 cap 04/18/19 docusate sodium [Colace] 100 mg PO BID #60 cap 12/13/19 oxycodone 5 mg PO Q6H PRN #14 tab 12/13/19 sennosides [Senokot] 8.6 mg PO HS #30 tab 12/13/19 Results & Data (ED) Vital Signs Vital Signs - 24 hr 12/13/19 16:26 12/13/19 16:29 12/13/19 16:37 Temperature 37.3 C Temperature Source Oral Pulse Rate 64 69 66 Pulse Rate from SpO2 Sensor 63 68 Pulse Rhythm Regular Pulse Strength Normal Respiratory Rate 21 18 24 Respiratory Effort / Characteristics Non-Labored Spontaneous Respiratory Depth Normal Respiratory Pattern Regular Blood Pressure 135/68 135/68 Blood Pressure Mean 100 90 Blood Pressure Position Lying Pulse Oximetry 92 93 90 Oxygen Delivery Method Room Air Room Air Room Air Sepsis Recent Fever Within 48 Hours No Sepsis New/Unexplained Change in Mental Status No Sepsis Action Taken by Nursing No Action Required 12/13/19 16:51 12/13/19 17:00 12/13/19 17:01 Temperature Temperature Source Pulse Rate 67 63 65 Pulse Rate from SpO2 Sensor 63 64 67 Pulse Rhythm Pulse Strength Respiratory Rate 22 20 22 Respiratory Effort / Characteristics Respiratory Depth Respiratory Pattern Blood Pressure 133/68 144/74 H Blood Pressure Mean 104 95 Blood Pressure Position Pulse Oximetry 90 93 92 Oxygen Delivery Method Room Air Room Air Room Air Sepsis Recent Fever Within 48 Hours Sepsis New/Unexplained Change in Mental Status Sepsis Action Taken by Nursing 12/13/19 17:09 12/13/19 17:30 12/13/19 17:31 Temperature Temperature Source Pulse Rate 66 66 Pulse Rate from SpO2 Sensor 64 62 Pulse Rhythm Pulse Strength Respiratory Rate 23 23 Respiratory Effort / Characteristics Respiratory Depth Respiratory Pattern Blood Pressure 125/68 Blood Pressure Mean 78 Blood Pressure Position Pulse Oximetry 98 91 91 Oxygen Delivery Method Room Air Room Air Room Air Sepsis Recent Fever Within 48 Hours Sepsis New/Unexplained Change in Mental Status Sepsis Action Taken by Nursing 12/13/19 18:00 12/13/19 18:01 Temperature Temperature Source Pulse Rate 68 61 Pulse Rate from SpO2 Sensor Pulse Rhythm Pulse Strength Respiratory Rate 22 22 Respiratory Effort / Characteristics Respiratory Depth Respiratory Pattern Blood Pressure 131/63 Blood Pressure Mean 89 Blood Pressure Position Pulse Oximetry 93 Oxygen Delivery Method Room Air Sepsis Recent Fever Within 48 Hours Sepsis New/Unexplained Change in Mental Status Sepsis Action Taken by [facility]ent[facility] Medications Current Medication List: was personally reviewed by me Laboratory Data Attestation: I reviewed the patient's lab results. Result diagrams: 12/13/19 17:22 12/13/19 17:22 Lab Results 12/13/19 12/13/19 12/13/19 Range/Units 17:22 17:22 17:22 WBC 14.26 H (4.8-10.8) K/uL RBC 3.75 L (4.7-6.1) M/uL Hgb 11.8 L (14.0-18.0) g/dL Hct 35.8 L (42-52) % MCV 95.5 (80-100) fL MCH 31.5 (25-34) pg MCHC 33.0 (32-36) g/dL RDW Std Deviation 54.0 H (36.4-46.3) fL RDW Coeff of Trevon 15.6 H (11.5-14.5) % Plt Count 171 (130-400) K/uL MPV 10.6 H (7.4-10.4) fL Immature Gran % (Auto) 0.4 % Neut % (Auto) 62.6 % Lymph % (Auto) 15.4 % Gates % (Auto) 21.2 % Eos % (Auto) 0.1 % Baso % (Auto) 0.3 % Neut # (Auto) 8.93 H (1.4-6.5) K/uL Lymph # (Auto) 2.20 (1.2-3.4) K/uL Gates # (Auto) 3.02 H (0.11-0.59) K/uL Eos # (Auto) 0.02 (0-0.5) K/uL Baso # (Auto) 0.04 (0-0.2) K/uL Immature Gran # (Auto) 0.05 H (0.00-0.02) K/uL Absolute Nucleated RBC 0.02 H (0-0) K/uL Nucleated RBC % (auto) 0.1 % PT 39.2 H (9.0-12.0) Seconds INR 4.0 H (0.9-1.1) APTT 51.2 H* (21.0-31.0) Seconds PTT Ratio 1.8 D-Dimer 470 (0-500) ug/L FEU Sodium 137 (136-145) mmol/L Potassium 4.0 (3.5-5.1) mmol/L Chloride 108 H (98-107) mmol/L Carbon Dioxide 22 (21-32) mmol/L Anion Gap 7.0 (3-11) BUN 21 H (7-18) mg/dl Creatinine 1.08 (0.6-1.4) mg/dl Est Cr Clr Drug Dosing 62.1 ml/min Est GFR ( Amer) 72.7 Est GFR (Non-Af Amer) 62.7 BUN/Creatinine Ratio 19.4 (10-20) Glucose 224 H (70-99) mg/dl POC Glucose (70-99) mg/dl Calcium 8.7 (8.5-10.1) mg/dl Magnesium 1.8 (1.8-2.4) mg/dl Total Bilirubin 1.7 H (0.2-1) mg/dl AST 21 (15-37) U/L ALT 20 (12-78) U/L Alkaline Phosphatase 75 (45-117) U/L Troponin I < 0.015 (0-0.045) ng/ml Total Protein 7.7 (6.4-8.2) gm/dl Albumin 3.6 (3.4-5.0) gm/dl Globulin 4.1 H (2.5-4.0) gm/dl Albumin/Globulin Ratio 0.9 (0.9-2) TSH 1.860 (0.300-4.500) uIu/ml 12/13/19 Range/Units 17:24 WBC (4.8-10.8) K/uL RBC (4.7-6.1) M/uL Hgb (14.0-18.0) g/dL Hct (42-52) % MCV (80-100) fL MCH (25-34) pg MCHC (32-36) g/dL RDW Std Deviation (36.4-46.3) fL RDW Coeff of Trevon (11.5-14.5) % Plt Count (130-400) K/uL MPV (7.4-10.4) fL Immature Gran % (Auto) % Neut % (Auto) % Lymph % (Auto) % Gates % (Auto) % Eos % (Auto) % Baso % (Auto) % Neut # (Auto) (1.4-6.5) K/uL Lymph # (Auto) (1.2-3.4) K/uL Gates # (Auto) (0.11-0.59) K/uL Eos # (Auto) (0-0.5) K/uL Baso # (Auto) (0-0.2) K/uL Immature Gran # (Auto) (0.00-0.02) K/uL Absolute Nucleated RBC (0-0) K/uL Nucleated RBC % (auto) % PT (9.0-12.0) Seconds INR (0.9-1.1) APTT (21.0-31.0) Seconds PTT Ratio D-Dimer (0-500) ug/L FEU Sodium (136-145) mmol/L Potassium (3.5-5.1) mmol/L Chloride (98-107) mmol/L Carbon Dioxide (21-32) mmol/L Anion Gap (3-11) BUN (7-18) mg/dl Creatinine (0.6-1.4) mg/dl Est Cr Clr Drug Dosing ml/min Est GFR ( Amer) Est GFR (Non-Af Amer) BUN/Creatinine Ratio (10-20) Glucose (70-99) mg/dl POC Glucose 220 H (70-99) mg/dl Calcium (8.5-10.1) mg/dl Magnesium (1.8-2.4) mg/dl Total Bilirubin (0.2-1) mg/dl AST (15-37) U/L ALT (12-78) U/L Alkaline Phosphatase (45-117) U/L Troponin I (0-0.045) ng/ml Total Protein (6.4-8.2) gm/dl Albumin (3.4-5.0) gm/dl Globulin (2.5-4.0) gm/dl Albumin/Globulin Ratio (0.9-2) TSH (0.300-4.500) uIu/ml Imaging Data Radiologist's Impression: US venous doppler LE LT HISTORY: 84 years-old Male swelling acute pain and swelling of the left lower extremity COMPARISON: None TECHNIQUE: Multiple real-time sonographic images of the left lower extremity deep venous structures were obtained assessing grayscale appearance, color and spectral flow FINDINGS: Normal flow, compressibility, phasicity and augmentation of the left lower extremity deep venous structures. Mildly complex Benites's cyst, 7.1 x 2.6 cm. IMPRESSION: No sonographic evidence of deep venous thrombosis. ACT 112: Negative or not required by law. The above report was generated using voice recognition software. It may contain grammatical, syntax or spelling errors. Electronically signed by: Bruno Ferreira M.D. 12/13/2019 6:46 PM Dictated: 12/13/191844 Transcribed: 12/13/191844 CT head/brain wo con CLINICAL HISTORY: 84 years-old Male with altered. Acutely altered mental status TECHNIQUE: Multiple axial CT images of the head were obtained without contrast. A dose lowering technique was utilized adhering to the principles of ALARA. CT DOSE: 1706.77 mGy.cm COMPARISON: Head CT 09/04/2018 FINDINGS: No acute intracranial hemorrhage, midline shift, intracranial mass, hydrocephalus, territorial ischemia or abnormal extra-axial collection. Age- related involutional changes. 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 Extensive patchy white matter hypodensities suggest advanced chronic microvascular ischemic disease. 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 Cerebral vascular calcifications. Dolichoectasia of the basilar artery redemonstrated. The calvarium is intact. Prior bilateral lens replacement. The paranasal sinuses, mastoid air cells, and middle ear cavities are clear. IMPRESSION: Chronic findings as above without acute intracranial abnormality. ACT 112: Negative or not required by law. The above report was generated using voice recognition software. It may contain grammatical, syntax or spelling errors. Electronically signed by: Bruno Ferreira M.D. 12/13/2019 6:28 PM Dictated: 12/13/191824 Transcribed: 12/13/191824 XR chest 1V portable HISTORY: 84 years-old Male weakness acute weakness COMPARISON: Chest radiograph 12/01/2017 TECHNIQUE: Portable AP view the chest FINDINGS: Cardiac silhouette is enlarged, unchanged. Prior median sternotomy and CABG. Left subclavian pacer. Mild pulmonary vascular congestion. Chronic interstitial coarsening. No pneumothorax, large pleural effusion or airspace consolidation typical for pneumonia. No overt pulmonary edema. IMPRESSION: 1. Cardiomegaly with pulmonary vascular congestion. 2. Chronic interstitial coarsening ACT 112: Negative or not required by law. The above report was generated using voice recognition software. It may contain grammatical, syntax or spelling errors. Electronically signed by: Bruno Ferreira M.D. 12/13/2019 5:19 PM Dictated: 12/13/191716 Transcribed: 12/13/191716 Blood Pressure Blood Pressure Findings: Normal blood pressure Discharge Plan Visit Data Chief Complaint: Confusion Stated Complaint: EPISODE OF AMS, CONFUSIONS ED Provider: Chaim Wells Discharge Problem: Acute alteration in mental status, Cellulitis Patient Disposition: Being Evaluated by Hospitalist Condition: Good Forms Stand Alone Forms: My [employer] Prescriptions Prescriptions: No Action clindamycin HCl 300 mg capsule 600 mg PO ONCE Qty: 2 RF: 0 amlodipine 5 mg tablet 5 mg PO BID RF: 0 losartan 50 mg tablet 50 mg PO DAILY RF: 0 atorvastatin 40 mg tablet 40 mg PO DAILY RF: 0 repaglinide 2 mg tablet 4 mg PO TIDM RF: 0 metoprolol succinate 50 mg tablet extended release 24 hr 50 mg PO BID RF: 0 warfarin 2.5 mg tablet 2.5 - 5 mg PO UD RF: 0 aspirin 81 mg Tablet,Delayed Release (Dr/Ec) 81 mg PO DAILY RF: 0 isosorbide mononitrate 60 mg tablet extended release 24 hr 60 mg PO HS RF: 0 pantoprazole 40 mg tablet,delayed release (DR/EC) 40 mg PO DAILY RF: 0 metformin 1,000 mg tablet 1,000 mg PO BID RF: 0 furosemide 20 mg tablet 20 mg PO DAILY RF: 0 cholecalciferol (vitamin D3) [Vitamin D3] 1,000 unit Capsule 1,000 unit PO DAILY RF: 0 Lantus Solostar U-100 Insulin 100 unit/mL (3 mL) insulin pen 8 units subcut DAILY RF: 0 polyethylene glycol 3350 17 gram Powder In Packet 17 g PO BID PRN (Reason: Constipation) RF: 0 nitroglycerin [Nitrostat] 0.4 mg Tablet, Sublingual 0.4 mg sublingual UD PRN (Reason: Chest Pain) RF: 0 oxycodone 5 mg tablet 5 mg PO Q6H PRN (Reason: pain) Qty: 14 RF: 0 sennosides [Senokot] 8.6 mg tablet 8.6 mg PO HS Qty: 30 RF: 0 docusate sodium [Colace] 100 mg capsule 100 mg PO BID Qty: 60 RF: 0 Tradjenta 5 mg Tablet 5 mg PO DAILY RF: 0 Referrals Referrals: Melo Carlos MD [Primary Care Provider] -
[2019-12-13 17:47] LABS: Alanine Aminotransferase 20 U/L (12-78); Albumin Level 3.6 gm/dl (3.4-5.0); Aspartate Aminotransferase 21 U/L (15-37); BUN Creatinine Ratio 19.4 (10-20); Basophils # (auto) 0.04 K/uL (0-0.2); Basophils % (auto) 0.3 %; Blood Urea Nitrogen 21 mg/dl (7-18); Calcium 8.7 mg/dl (8.5-10.1); Carbon Dioxide 22 mmol/L (21-32); Chloride 108 mmol/L (98-107); Creatinine Clr Calc Pharmacy 62.1 ml/min; Eosinophils # (auto) 0.02 K/uL (0-0.5); Eosinophils % (auto) 0.1 %; Est GFR (African American) 72.7; Est GFR (Non-African American) 62.7; Glucose 224 mg/dl (70-99); Immature Granulocytes # (auto) 0.05 K/uL (0.00-0.02); Immature Granulocytes % (auto) 0.4 %; Lymphocytes % (auto) 15.4 %; Magnesium 1.8 mg/dl (1.8-2.4); Monocytes # (auto) 3.02 K/uL (0.11-0.59); Monocytes % (auto) 21.2 %; Neutrophils # (auto) 8.93 K/uL (1.4-6.5); Neutrophils % (auto) 62.6 %; Sodium 137 mmol/L (136-145)
[2019-12-13 17:57] LABS: Albumin Globulin Ratio 0.9 (0.9-2); Alkaline Phosphatase 75 U/L (45-117); Bilirubin,Total 1.7 mg/dl (0.2-1); Globulin 4.1 gm/dl (2.5-4.0); Total Protein 7.7 gm/dl (6.4-8.2); Troponin I < 0.015 ng/ml (0-0.045)
[2019-12-13 18:09] LABS: D Dimer 470 ug/L FEU (0-500); Partial Thromboplastin Ratio 1.8; Prothrombin Time 39.2 Seconds (9.0-12.0)
[2019-12-13 18:10] LABS: Partial Thromboplastin Time 51.2 Seconds (21.0-31.0)
--- NOTE | 2019-12-13 18:29 | CT Scan Report ---
CT head/brain wo con CLINICAL HISTORY: 84 years-old Male with altered. Acutely altered mental status TECHNIQUE: Multiple axial CT images of the head were obtained without contrast. A dose lowering tech nique was utilized adhering to the principles of ALARA. CT DOSE: 1706.77 mGy.cm COMPARISON: Head CT 09/04/2018 FINDINGS: No acute intracranial hemorrhage, midline shift, intracranial mass, hydrocephalus, territorial ischem ia or abnormal extra-axial collection. Age-related involutional changes. 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 Extensive patchy white matter hypodensities suggest advanced chronic microva scular ischemic disease. 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 Cerebral vascular claudia cifications. Dolichoectasia of the basilar artery redemonstrated. The calvarium is intact. Prior bilateral lens replacement. The paranasal sinuses, mastoid air cells, and middle ear cavities are clear. IMPRESSION: Chronic findings as above without acute intracranial abnormality. ACT 112: Negative or not required by law. The above report was generated using voice recognition software. It may contain grammatical, syntax o r spelling errors. Electronically signed by: Bruno Ferreira M.D. 12/13/2019 6:28 PM
--- NOTE | 2019-12-13 18:48 | Ultrasound Report ---
US venous doppler LE LT HISTORY: 84 years-old Male swelling acute pain and swelling of the left lower extremity COMPARISON: None TECHNIQUE: Multiple real-time sonographic images of the left lower extremity deep venous structures w ere obtained assessing grayscale appearance, color and spectral flow FINDINGS: Normal flow, compressibility, phasicity and augmentation of the left lower extremity deep venous stru ctures. Mildly complex Benites's cyst, 7.1 x 2.6 cm. IMPRESSION: No sonographic evidence of deep venous thrombosis. ACT 112: Negative or not required by law. The above report was generated using voice recognition software. It may contain grammatical, syntax o r spelling errors. Electronically signed by: Bruno Ferreira M.D. 12/13/2019 6:46 PM
[2019-12-13] MEDS ORDERED: cefTRIAXone SODIUM 1,000 MG/50 ML BAG IV STA (18:59)
[2019-12-13 21:02] LABS: Appearance Urine Cloudy (Clear); Bacteria Urine Automated Negative (Negative); Bilirubin Urine Negative (Negative); Blood Urine Trace (Negative); Color Urine Dark Yellow; Epithelial Cell Urine Auto >30 /lpf (0-5); Glucose Urine UA Negative (Negative); Ketones Urine Trace (Negative); Leukocyte Esterase Urine Trace (Negative); Nitrite Urine Negative (Negative); Protein Urine Trace (Negative); Specific Gravity Urine 1.028 (1.000-1.030); Urobilinogen Urine Negative (Negative)
[2019-12-13] MEDS ORDERED: ACETAMINOPHEN 325 MG TAB PO PRN (21:21)
[2019-12-13] MEDS ORDERED: NITROGLYCERIN SL 0.4 MG/TAB TAB SL PRN ×2 (21:21)
[2019-12-13] MEDS ORDERED: ONDANSETRON INJ 2 MG/ML 2 ML VIAL IV PRN (21:21)
[2019-12-13] MEDS ORDERED: POLYETHYLENE (MIRALAX) 17 GM PACK PO PRN (21:21)
[2019-12-13 21:23] LABS: Mucus Urine Present (None Prsent); Renal Epithelial Cells Urine 0-5 /lpf (0-5)
[2019-12-13] MEDS ORDERED: OXYCODONE HCL IR 5 MG TAB (IMMEDIATE RELEASE) PO PRN (21:28)
[2019-12-13] MEDS ORDERED: methylPREDNISolone 20 MG in SYRINGE 0 ML IV STA (21:31)
[2019-12-13] MEDS ORDERED: SENNA 8.6 MG TAB PO SCH (21:45)
[2019-12-13] MEDS ORDERED: HEPARIN SOD 5,000 UNIT/0.5 ML VIAL SQ SCH (22:00)
--- NOTE | 2019-12-13 22:17 | History and Physical Report ---
DATE OF ADMISSION: 12/13/2019 CHIEF COMPLAINT: Left foot pain and confusion. HISTORY OF PRESENT ILLNESS: This 84-year-old male with past medical history significant for type 2 diabetes, gout, hyperlipidemia, chronic rhinitis, sinus node dysfunction, paroxysmal atrial fibrillation, status post pacemaker, history of hypertension, atrial flutter, chronic systolic CHF with last EF in 2019 was 50%, cognitive disorder, CAD, status post stent, status post CABG, history of splenectomy, history of pancreatic cancer, history of intracerebral hemorrhage. The patient lives alone, walks without any support. The patient says since yesterday night, he is having left foot and ankle pain, came to the ER in the morning. Foot x-ray, except for some soft tissue swelling, was unremarkable. He was sent on pain medications, but his daughter who works in the hospital called and stated the patient was confused at home and brought in here. The patient currently is alert and awake and oriented. He says he was mildly confused at home. Denies any fever or chills. Except for left foot pain, denies any other complaints. Currently resting comfortably and hemodynamically stable. Denies any headache, no dizziness, no blurred visions. Complains of some earache in the left ear for some time. Currently, no runny nose, no sore throat, no cough, no difficulty swallowing, no chest pain, no shortness of breath, no nausea, no abdominal pain. Normal bowel and bladder movements. No blood in stool or black stools. No burning micturition. The patient says he ambulates okay, but today he could not put weight on his left leg. He lives alone, but the family lives close by. Denies any falls or any injury to the left lower extremity. ALLERGIES: PENICILLINS, PLAVIX. PAST MEDICAL HISTORY: As mentioned above. PAST SURGICAL HISTORY: CABG, upper GI, colonoscopy, cardiac catheterization, right knee arthroscopy, laparoscopic pancreatectomy with distal subtotal splenectomy, tonsillectomy, adenoidectomy, inguinal hernia repair. MEDICATIONS: The patient is on amlodipine 5 mg p.o. b.i.d., aspirin 81 mg p.o. daily, atorvastatin 40 mg p.o. daily, vitamin D 1000 units p.o. daily, clindamycin prior to dental clinic, Colace 100 mg p.o. b.i.d., Lasix 20 mg p.o. daily, Lantus SoloSTAR 8 units daily, isosorbide mononitrate 60 mg p.o. at bedtime, Tradjenta 5 mg p.o. daily, losartan 50 mg p.o. daily, metformin 1000 mg p.o. b.i.d., metoprolol succinate 50 mg p.o. b.i.d., nitroglycerin 0.4 mg sublingual p.r.n., oxycodone 5 mg p.o. q.6 hours p.r.n., Protonix 40 mg p.o. daily, MiraLax 17 g p.o. b.i.d. p.r.n., repaglinide 4 mg p.o. t.i.d. with meals, Senokot 8.6 mg at bedtime, Coumadin as directed. FAMILY HISTORY: Significant for brother has diabetes, heart disorder, hypertension. SOCIAL HISTORY: , currently lives alone. Former smoker. Alcohol 3-4 conrado per week. No drug use. REVIEW OF SYMPTOMS: As per HPI. Rest of review of symptoms negative. PHYSICAL EXAMINATION: GENERAL: The patient is of moderate build, not in acute distress. VITAL SIGNS: Temperature 37.3, pulse 58, respiratory rate 15, blood pressure 147/69, oxygen 93% on room air. HEENT: No pallor, no icterus. Left ear; no drainage or erythema seen. NECK: No JVD, no neck masses. CARDIOVASCULAR: S1, S2 heard, regular rate and rhythm, no murmur, no gallop. RESPIRATORY SYSTEM: Normal AP diameter. No accessory muscle use. No wheezing, no crackles. ABDOMEN: Soft, bowel sounds present, nontender. No distention. CENTRAL NERVOUS SYSTEM: Cranial nerves II-XII grossly intact, nonfocal. EXTREMITIES: Left foot is swollen and erythematous around the ankle region and tender and painful movements. LABORATORY DATA: WBC 14.2, hemoglobin 11.8, hematocrit 35.8, platelets 171. PT 39.24, INR 4, APTT 51.2. Sodium 137, potassium 4, chloride 108, bicarbonate 22, BUN 21, creatinine 1.08, serum glucose 224, calcium 8.7, magnesium 1.8, total bilirubin 1.7, AST 21, ALT 20, alkaline phosphatase 74. Troponin I less than 0.015. TSH 1.8. IMAGING: Chest x-ray, cardiomegaly with pulmonary vascular congestion. CT of the head, no acute findings. Venous Doppler of the left lower extremity, no DVT. ELECTROCARDIOGRAM: Ventricular paced rhythm with occasional PVCs at a rate of 64. ASSESSMENT AND PLAN: This is an 84-year-old male who presents with left foot pain, he came to the Emergency Room in the morning and after x-ray showed some soft tissue swelling, discharged on pain medication, but comes back with some confusion. 1. Altered mental status: Currently is back to stable. Encephalopathy secondary to pain medicines or could be from ongoing infection. We will admit to the hospital and monitor in med-telemetry. 2. Left foot pain, ankle swelling and erythematous changes: X-ray showed some soft tissue swelling. The patient has a history of gout, could be gouty attack or could be cellulitis or could be any underlying injury. We will do the CT scan of the foot and ankle and follow the results. Empirically started on Rocephin. Follow the cultures. Follow the response. We will also give a small dose of steroids to see if it helps for any gouty attack and check the uric acid levels. 3. History of sinus node dysfunction, status post pacemaker, history of chronic atrial fibrillation: Rate controlled with Toprol-XL, on Coumadin. INR is supratherapeutic at 4, we will hold the Coumadin. 4. Chronic systolic congestive heart failure with ejection fraction of 50%: On Lasix daily. Continue to monitor for volume overload. 5. Type 2 diabetes: Continue his home Lantus. Holding his p.o. medication, place on insulin sliding scale. Follow the blood sugars, follow HbA1c levels. 6. Coronary artery disease, status post stent, status post coronary artery bypass graft: On statin, Toprol-XL, aspirin, nitrates. Currently stable. 7. Gastroesophageal reflux disease: On Protonix. 8. Hyperlipidemia: On statin. 9. Deep venous thrombosis prophylaxis: INR is supratherapeutic. DISPOSITION: Admit to med-tele. PT and OT prior to discharge. Social Service to help with discharge planning. CODE STATUS: Full code. MTDD
[2019-12-13] MEDS: DOCUSATE SODIUM 100 MG CAP PO SCH (22:32)
[2019-12-13] MEDS: ISOSORBIDE MONO EXTENDED REL 60 MG TABCR PO SCH (22:32)
[2019-12-13] MEDS: AMLODIPINE BESYLATE 5 MG TAB PO SCH (22:34)
[2019-12-13] MEDS: METOPROLOL SUCC 50MG EXT REL TAB PO SCH (22:34)
[2019-12-13] MEDS: INSULIN ASPART 100 UNITS/ML 3 ML PEN SC SCH (22:35)
[2019-12-14 06:24] LABS: Basophils # (auto) 0.01 K/uL (0-0.2); Basophils % (auto) 0.1 %; Hematocrit (blood only) 35.9 % (42-52); Hemoglobin 11.4 g/dL (14.0-18.0); Immature Granulocytes # (auto) 0.02 K/uL (0.00-0.02); Immature Granulocytes % (auto) 0.2 %; Lymphocytes % (auto) 9.8 %; Mean Corpuscular Hemoglobin 30.6 pg (25-34); Mean Corpuscular Hgb Conc 31.8 g/dL (32-36); Mean Corpuscular Volume 96.5 fL (80-100); Mean Platelet Volume 10.5 fL (7.4-10.4); Monocytes % (auto) 12.4 %; Neutrophils # (auto) 8.73 K/uL (1.4-6.5); Neutrophils % (auto) 77.5 %; Platelet Count 161 K/uL (130-400); RDW Coefficient of Variation 15.6 % (11.5-14.5); RDW Standard Deviation 54.9 fL (36.4-46.3); Red Blood Count 3.72 M/uL (4.7-6.1); White Blood Count 11.26 K/uL (4.8-10.8)
[2019-12-14 06:32] LABS: INR 3.4 (0.9-1.1); Prothrombin Time 33.2 Seconds (9.0-12.0)
[2019-12-14 07:11] LABS: Albumin Level 3.2 gm/dl (3.4-5.0); BUN Creatinine Ratio 20.1 (10-20); Calcium 8.7 mg/dl (8.5-10.1); Creatinine Clr Calc Pharmacy 71.1 ml/min; Est GFR (African American) 87.1; Est GFR (Non-African American) 75.1; Magnesium 1.8 mg/dl (1.8-2.4); Potassium 4.3 mmol/L (3.5-5.1); Uric Acid 6.2 mg/dl (2.6-7.2)
--- NOTE | 2019-12-14 07:13 | CT Scan Report ---
LEFT FOOT CT CT DOSE: 375.62 mGy.cm HISTORY: left foot pain, ankle swelling. TECHNIQUE: Multiaxial CT images of the left foot were performed and reformatted in the sagittal and c oronal plane without the use of contrast. A dose lowering technique was utilized adhering to the anabell Anthony. COMPARISON: Left foot 12/13/2019. FINDINGS: Diffuse subcutaneous edema seen within the ankle and foot. No loculated fluid collections t o suggest an abscess. Vascular calcifications are noted. Advanced degenerative changes at the tibiota lar joint with multiple small intra-articular loose bodies. No acute fracture or dislocation. Moderat e osteoarthritis within the intertarsal joints and first MTP joint. There is also moderate osteoarthr itis within the DIP and PIP joints. IMPRESSION: 1. No acute fracture or dislocation within the left foot. 2. 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 3. Diffuse subcutaneous edema. ACT 112: Negative or not required by law. Electronically signed by: Neeraj Faith M.D. 12/14/2019 7:11 AM
[2019-12-14 07:17] LABS: Bilirubin Direct 0.5 mg/dl (0-0.2); Bilirubin,Total 2.3 mg/dl (0.2-1); Total Protein 7.3 gm/dl (6.4-8.2)
[2019-12-14] MEDS: INSULIN ASPART 100 UNITS/ML 3 ML PEN SC SCH ×4 (08:35→21:01)
[2019-12-14] MEDS: DOCUSATE SODIUM 100 MG CAP PO SCH (08:37)
[2019-12-14] MEDS: ASPIRIN 81 MG ECTAB PO SCH (08:38)
[2019-12-14] MEDS: INSULIN GLARGINE SOLOSTAR 100 UNITS/ML 3 ML PEN SQ SCH (08:38)
[2019-12-14] MEDS: LOSARTAN POTASSIUM 50 MG TAB PO SCH (08:38)
[2019-12-14] MEDS: AMLODIPINE BESYLATE 5 MG TAB PO SCH ×2 (08:39→19:41)
[2019-12-14] MEDS: FUROSEMIDE 20 MG TAB PO SCH (08:39)
[2019-12-14] MEDS: PANTOprazole 40 MG TAB PO SCH (08:39)
[2019-12-14] MEDS: ATORVASTATIN 40 MG TAB PO SCH (08:39)
[2019-12-14] MEDS: METOPROLOL SUCC 50MG EXT REL TAB PO SCH ×2 (08:39→19:41)
[2019-12-14] MEDS: CHOLECALCIFEROL 1,000 UNITS 25 MCG TAB PO SCH (08:40)
[2019-12-14 09:08] LABS: Estimated Average Glucose 160 mg/dl; Hemoglobin A1C 7.2 % (4.5-5.6)
[2019-12-14] MEDS ORDERED: POLYETHYLENE (MIRALAX) 17 GM PACK PO PRN (13:37)
[2019-12-14] MEDS ORDERED: POLYETHYLENE (MIRALAX) 17 GM PACK PO ONE (13:37)
[2019-12-14] MEDS ORDERED: ACETAMINOPHEN 325 MG TAB PO PRN (13:39)
--- NOTE | 2019-12-14 13:44 | Hospitalist Progress Note ---
Date of Service December 14, 2019 Assessment & Plan (1) Acute alteration in mental status: -as per emegency room notes on 12/13/2019: "The patient is an 84-year-old male who presented to the emergency department via ambulance for an evaluation of altered mental status. The patient was seen this morning for an evaluation of left foot pain. Apparently his left foot was hurting him after golfing and this was felt to be musculoskeletal in nature. The patient was prescribed pain medication. He does admit to taking pain medication after he left our facility. The patient was noted to have an acute alteration in his mental status. There is significant concern by the family so the patient was brought to the emergency department via ALS" (2) Foot pain, left: Left ankle swelling Leukocytosis -admission left foot CT scan: No acute fracture or dislocation within the left foot. 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 Diffuse subcutaneous edema. -admission ultrasound of the left leg: Normal flow, compressibility, phasicity and augmentation of the left lower extremity deep venous structures. Mildly complex Benites's cyst, 7.1 x 2.6 cm. IIMPRESSION: No sonographic evidence of deep venous thrombosis. -patient has been comfortable and cooperative. he reports less left ankle swelling and today the left ankle not causing distress. patient cannot recall the circumstances of who sent him to the emergency room. Hospitalist discussed with daughter [phone] and it is not quite clear as to the circumstances of the reported "altered mental status" on admission. Discussed with patient and daughter that because of the elevated WBC counts on admission as 14K with initial confusion, would like to monitor the patient further in the hospital today for any further distress or if any fevers and await for some results from 12/13/2019 blood cultures. normal urine analysis on admission. Continue Physical therapy evaluation while in the hospital -patient did get solumedrol 20 mg x 1 by admitting physician and could have helped relieved some initial inflammation but his left foot does not appear to look like a cellulitis but can continue ceftriaxone as started by admitting gela humphreys for now while awaiting blood culture results -patient reports distant 20 year plus history of episode of gout flare. uric acid is with in normal limits. patient denies trauma injury to the foot or recent twisting of the ankle Coronary artery disease, status post stent, status post coronary artery bypass graft in the past History of sinus node dysfunction, status post pacemaker, history of chronic atrial fibrillation: Supratherapeutic INR, on admission (INR of 4) -hold the coumadin -CT Head: "No acute intracranial hemorrhage, midline shift, intracranial mass, hydrocephalus, territorial ischemia or abnormal extra-axial collection. Age- related involutional changes. 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 Extensive patchy white matter hypodensities suggest advanced chronic microvascular ischemic disease. 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 Cerebral vascular calcifications. Dolichoectasia of the basilar artery redemonstrated. The calvarium is intact. Prior bilateral lens replacement. The paranasal sinuses, mastoid air cells, and middle ear cavities are clear. IMPRESSION: Chronic findings as above without acute intracranial abnormality." -on aspirin -continue metoprolol succinate 50 mg BID, aspirin, isosorbide mononitrate, amlodipine, losartan Chronic systolic congestive heart failure with ejection fraction of 50%: -on furosemide 20 mg daily -Chest X ray on admission of Cardiomegaly with pulmonary vascular congestion; Chronic interstitial coarsening but on my read without any pulmonary edema. 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 Deep venous thrombosis prophylaxis: INR is supratherapeutic Admission and Anticipated Discharge Date Admission Date: December 13, 2019 Subjective patient has been comfortable and cooperative. he reports less left ankle swelling and today the left ankle not causing distress. patient cannot recall the circumstances of who sent him to the emergency room. Hospitalist discussed with daughter [phone] and it is not quite clear as to the circumstances of the reported "altered mental status" on admission. Discussed with patient and daughter that because of the elevated WBC counts with initial confusion, would like to monitor the patient further in the hospital today for any further distress or if any fevers and await for some results from 12/13/2019 blood cultures. Continue Physical therapy evaluation while in the hospital no chest pain. no shortness of breath. on room air. no vomiting. no dizziness Review of Systems Review of Systems: All systems reviewed & are unremarkable except as noted in Subjective Physical Exam Constitutional: comfortable Eyes: PERRL, conjunctivae normal, anicteric sclerae EOM intact bilaterally ENMT: external ear and nose normal, oropharynx normal Neck: trachea midline, no thyromegaly normal visual inspection Respiratory: normal respiratory effort, lungs clear to auscultation Cardiovascular: Rate/Rhythm: + bradycardic Gastrointestinal (Abdomen): normal bowel sounds, soft, nontender, no hepatosplenomegaly Musculoskeletal: Head/Neck/Chest: normocephalic and head atraumatic Skin: left ankle swelling Neurologic: PERRL, EOMI, accommodation nl, no face palsy, no dysarthria moves all extremities Psychiatric: A+Ox3, euthymic affect Results & Data Results & Data ([facility]) Vital Signs (Past 12 Hours) Vital Signs Temp Pulse Pulse Resp BP BP Pulse Ox 12/14/19 11:19 37.1 C 62 18 132/70 95 12/14/19 07:38 66 12/14/19 07:18 36.7 C 65 18 121/67 91 12/14/19 02:53 37.0 C 66 19 124/65 93
[2019-12-14] MEDS: DOCUSATE SODIUM/SENNA 50/8.6MG TAB PO SCH (13:52)
--- NOTE | 2019-12-14 15:51 | Electrocardiogram Report ---
Test Reason : Blood Pressure : / mmHG Vent. Rate : 064 BPM Atrial Rate : 072 BPM P-R Int : 000 ms QRS Dur : 208 ms QT Int : 510 ms P-R-T Axes : 000 -74 095 degrees QTc Int : 526 ms Ventricular-paced rhythm with occasional Premature ventricular complexes Abnormal ECG When compared with ECG of 04-SEP-2018 17:20, Electronic ventricular pacemaker has replaced Atrial fibrillation Confirmed by Chaim Hameed ([id number]) on 12/14/2019 3:50:43 PM Referred By: REFERRED SELF Confirmed By:Chaim Hameed
[2019-12-14] MEDS: METFORMIN HCL 500 MG TAB PO SCH (17:48)
[2019-12-14] MEDS: ISOSORBIDE MONO EXTENDED REL 60 MG TABCR PO SCH (19:41)
[2019-12-14] MEDS ORDERED: cefTRIAXone SODIUM 2,000 MG in DEXTROSE 5% 50 ML IV SCH (20:00)
[2019-12-15] MEDS ORDERED: SENNA 8.6 MG TAB PO ONE (08:15)
[2019-12-15] MEDS: DOCUSATE SODIUM/SENNA 50/8.6MG TAB PO SCH (08:53)
[2019-12-15] MEDS: AMLODIPINE BESYLATE 5 MG TAB PO SCH (08:54)
[2019-12-15] MEDS: METFORMIN HCL 500 MG TAB PO SCH (08:54)
[2019-12-15] MEDS: ASPIRIN 81 MG ECTAB PO SCH (08:54)
[2019-12-15] MEDS: ATORVASTATIN 40 MG TAB PO SCH (08:55)
[2019-12-15] MEDS: LOSARTAN POTASSIUM 50 MG TAB PO SCH (08:55)
[2019-12-15] MEDS: PANTOprazole 40 MG TAB PO SCH (08:58)
[2019-12-15] MEDS: FUROSEMIDE 20 MG TAB PO SCH (08:59)
[2019-12-15] MEDS: CHOLECALCIFEROL 1,000 UNITS 25 MCG TAB PO SCH (09:00)
[2019-12-15] MEDS: METOPROLOL SUCC 50MG EXT REL TAB PO SCH (09:00)
[2019-12-15] MEDS: INSULIN GLARGINE SOLOSTAR 100 UNITS/ML 3 ML PEN SQ SCH (09:01)
[2019-12-15] MEDS: INSULIN ASPART 100 UNITS/ML 3 ML PEN SC SCH ×2 (09:12→12:54)
[2019-12-15 10:05] LABS: Basophils # (auto) 0.03 K/uL (0-0.2); Basophils % (auto) 0.3 %; Eosinophils # (auto) 0.17 K/uL (0-0.5); Eosinophils % (auto) 1.5 %; Hemoglobin 11.3 g/dL (14.0-18.0); Immature Granulocytes # (auto) 0.03 K/uL (0.00-0.02); Immature Granulocytes % (auto) 0.3 %; Lymphocytes % (auto) 17.2 %; Mean Corpuscular Hemoglobin 31.7 pg (25-34); Mean Corpuscular Hgb Conc 33.2 g/dL (32-36); Mean Corpuscular Volume 95.2 fL (80-100); Mean Platelet Volume 10.3 fL (7.4-10.4); Monocytes # (auto) 1.91 K/uL (0.11-0.59); Monocytes % (auto) 16.4 %; Neutrophils # (auto) 7.49 K/uL (1.4-6.5); Neutrophils % (auto) 64.3 %; Platelet Count 153 K/uL (130-400); RDW Coefficient of Variation 15.4 % (11.5-14.5); Red Blood Count 3.57 M/uL (4.7-6.1); White Blood Count 11.63 K/uL (4.8-10.8)
[2019-12-15 10:19] LABS: INR 2.4 (0.9-1.1); Prothrombin Time 23.9 Seconds (9.0-12.0)
[2019-12-15 10:30] LABS: Albumin Level 3.2 gm/dl (3.4-5.0); BUN Creatinine Ratio 22.5 (10-20); Calcium 8.9 mg/dl (8.5-10.1); Creatinine Clr Calc Pharmacy 73.2 ml/min; Est GFR (African American) 89.4; Est GFR (Non-African American) 77.1; Potassium 3.9 mmol/L (3.5-5.1)
[2019-12-15 10:42] LABS: Albumin Globulin Ratio 0.8 (0.9-2); Bilirubin,Total 1.4 mg/dl (0.2-1); Globulin 4.2 gm/dl (2.5-4.0); Total Protein 7.4 gm/dl (6.4-8.2)
[2019-12-15] MEDS ORDERED: cephALEXin 500 MG CAP PO SCH (12:53)
[2019-12-15] MEDS ORDERED: INDOMETHACIN 25 MG CAP PO PRN (12:55)
[2019-12-15] MEDS ORDERED: WARFARIN SOD 5 MG TAB PO ONE (13:04)
--- NOTE | 2019-12-15 13:39 | Hospitalist Progress Note ---
Date of Service December 15, 2019 Assessment & Plan (1) Acute alteration in mental status: -as per emegency room notes on 12/13/2019: "The patient is an 84-year-old male who presented to the emergency department via ambulance for an evaluation of altered mental status. The patient was seen this morning for an evaluation of left foot pain. Apparently his left foot was hurting him after golfing and this was felt to be musculoskeletal in nature. The patient was prescribed pain medication. He does admit to taking pain medication after he left our facility. The patient was noted to have an acute alteration in his mental status. There is significant concern by the family so the patient was brought to the emergency department via ALS" (2) Foot pain, left: Left ankle swelling Leukocytosis -admission left foot CT scan: No acute fracture or dislocation within the left foot. 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 Diffuse subcutaneous edema. -admission ultrasound of the left leg: Normal flow, compressibility, phasicity and augmentation of the left lower extremity deep venous structures. Mildly complex Benites's cyst, 7.1 x 2.6 cm. IIMPRESSION: No sonographic evidence of deep venous thrombosis. -patient has been comfortable and cooperative. he reports less left ankle swelling and today the left ankle not causing distress. patient cannot recall the circumstances of who sent him to the emergency room. Hospitalist discussed with daughter [phone] and it is not quite clear as to the circumstances of the reported "altered mental status" on admission. Discussed with patient and daughter that because of the elevated WBC counts on admission as 14K with initial confusion, would like to monitor the patient further in the hospital today for any further distress or if any fevers and await for some results from 12/13/2019 blood cultures. normal urine analysis on admission. Continue Physical therapy evaluation while in the hospital -patient did get solumedrol 20 mg x 1 by admitting physician and could have helped relieved some initial inflammation but his left foot does not appear to look like a cellulitis but can continue ceftriaxone as started by admitting ph ysician for now while awaiting blood culture results -patient reports distant 20 year plus history of episode of gout flare. uric acid is with in normal limits. patient denies trauma injury to the foot or recent twisting of the ankle -as of 12/15/2019, the blood cultures from 12/14/2019 with no growth to date -discharge medication sent electronically to [facility] at [address] [place] [address] of cephalexin 500 mg q12 hours to help with inflammation of left ankle/left foot, acetaminophen 325 my every 6 hours as needed for pain of if fever (20 tablets prescribed), indomethacin 25 mg as needed three times a day for pain (15 tablets prescribed) patient should have ice on the right leg with leg elevation when at rest patient had Supratherapeutic INR, on admission (INR of 4) and his coumadin was held until 12/15/2019 when INR was 2.5 and he was given coumadin 5 mg. He can take his alternating dose of coumadin as alternating from 2.5 mg to 5 mg daily starting on 12/16/2019. a prescription for a walker was made and given to hospital case management specialist to help with supplying this equipment after hospital discahrge upcoming appointments 12/20/2019 11:40 AM Provider [facility] 11:00 AM Provider [facility] Patient should have INR and CBC checked by primary care doctor 01/07/2020 1:30 PM [address] [facility] Department Cardiology, [facility] 01/07/2020 2:00 PM Provider Melo Rocha PA-C Department Cardiology, [facility] Coronary artery disease, status post stent, status post coronary artery bypass graft in the past History of sinus node dysfunction, status post pacemaker, history of chronic atrial fibrillation: Supratherapeutic INR, on admission (INR of 4) -coumadin initially held -CT Head: "No acute intracranial hemorrhage, midline shift, intracranial mass, hydrocephalus, territorial ischemia or abnormal extra-axial collection. Age- related involutional changes. 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 Extensive patchy white matter hypodensities suggest advanced chronic microvascular ischemic disease. 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 Cerebral vascular calcifications. Dolichoectasia of the basilar artery redemonstrated. The calvarium is intact. Prior bilateral lens replacement. The paranasal sinuses, mastoid air cells, and middle ear cavities are clear. IMPRESSION: Chronic findings as above without acute intracranial abnormality." -on aspirin -continue metoprolol succinate 50 mg BID, aspirin, isosorbide mononitrate, amlodipine, losartan -coumadin given as 5 mg on 12/15/2019 when INR 2.4 Chronic systolic congestive heart failure with ejection fraction of 50%: -on furosemide 20 mg daily -Chest X ray on admission of Cardiomegaly with pulmonary vascular congestion; Chronic interstitial coarsening but on my read without any pulmonary edema. breathing on room air Type 2 diabetes mellitus with shelter current use of insulin -HbA1c 7.2 -metformin 1000 mg BID -continue Lantus 8 units daily -he can resume home dose repaglinide and Tradjenta, patient should check blood sugars at home regularly and follow with primary care doctor Gastroesophageal reflux disease -On Protonix. Deep venous thrombosis prophylaxis: INR is 2.4 Admission and Anticipated Discharge Date Admission Date: December 13, 2019 Subjective Patient remains afebrile. no acute events on telemetry no chest pain. breathing on room air. no abdomen pain. no dizziness. no headache. no nausea. no vomiting. left ankle swelling still present but not getting worse. patient has been able to ambulate with assistive device from therapy and he requests discharge prescription of a walker Review of Systems Review of Systems: All systems reviewed & are unremarkable except as noted in Subjective Physical Exam Constitutional: comfortable Eyes: PERRL, conjunctivae normal, anicteric sclerae EOM intact bilaterally ENMT: external ear and nose normal, oropharynx normal Neck: trachea midline, no thyromegaly normal visual inspection Respiratory: normal respiratory effort, lungs clear to auscultation Cardiovascular: Rate/Rhythm: + bradycardic (paced) Gastrointestinal (Abdomen): normal bowel sounds, soft, nontender, no hepatosplenomegaly Musculoskeletal: Head/Neck/Chest: normocephalic and head atraumatic Ankle: + ankle abnormal to inspection (left ankle swelling) Neurologic: PERRL, EOMI, accommodation nl, no face palsy, no dysarthria moves all extremities Psychiatric: A+Ox3, euthymic affect Results & Data Results & Data ([facility]) Vital Signs (Past 12 Hours) Vital Signs Temp Pulse Resp BP Pulse Ox Pulse Ox 12/15/19 12:56 95 12/15/19 11:33 36.4 C L 60 18 163/62 H 94 12/15/19 07:23 36.6 C 62 18 121/71 93 12/15/19 03:58 36.7 C 78 18 117/72 94
--- NOTE | 2019-12-15 13:47 | Discharge Summary ---
Date of Service December 15, 2019 Admission HPI Per Admitting Provider Acute alteration in mental status Left Foot pain , and Left ankle swelling Leukocytosis Supratherapeutic INR, on admission Coronary artery disease, status post stent, status post coronary artery bypass graft in the past History of sinus node dysfunction, status post pacemaker, history of chronic atrial fibrillation Chronic systolic congestive heart failure with ejection fraction of 50% Type 2 diabetes mellitus with snf current use of insulin Principal Diagnosis Acute alteration in mental status Left Foot pain , and Left ankle swelling Leukocytosis Supratherapeutic INR, on admission Coronary artery disease, status post stent, status post coronary artery bypass graft in the past History of sinus node dysfunction, status post pacemaker, history of chronic a trial fibrillation Chronic systolic congestive heart failure with ejection fraction of 50% Type 2 diabetes mellitus with snf current use of insulin Discharge Exam Constitutional comfortable Eyes PERRL, conjunctivae normal, anicteric sclerae EOM intact bilaterally ENMT external ear and nose normal, oropharynx normal Neck trachea midline, no thyromegaly normal visual inspection Respiratory normal respiratory effort, lungs clear to auscultation Cardiovascular Rate/Rhythm: + bradycardic (paced) Gastrointestinal (Abdomen) normal bowel sounds, soft, nontender, no hepatosplenomegaly Musculoskeletal Head/Neck/Chest: normocephalic and head atraumatic Ankle: + ankle abnormal to inspection (left ankle swelling) Neurologic PERRL, EOMI, accommodation nl, no face palsy, no dysarthria moves all extremities Psychiatric A+Ox3, euthymic affect Discharge Data Allergies Allergy/AdvReac Type Severity Reaction Status Date / Time Penicillins Allergy Intermediate HIVES Verified 12/13/19 06:55 clopidogrel Allergy Mild INTERNAL Verified 12/13/19 06:55 HIVES Consultations 12/13/19 19:36 ED Decision to Admit Stat 12/13/19 21:21 Consult Case Management - Discharge Planning Routine Ordered Studies 12/13/19 16:59 CT head/brain wo con Stat US venous doppler LE LT Stat 12/13/19 21:21 CT foot LT wo con Routine Hospital Course (1) Acute alteration in mental status: -as per emegency room notes on 12/13/2019: "The patient is an 84-year-old male who presented to the emergency department via ambulance for an evaluation of altered mental status. The patient was seen this morning for an evaluation of left foot pain. Apparently his left foot was hurting him after golfing and this was felt to be musculoskeletal in nature. The patient was prescribed pain medication. He does admit to taking pain medication after he left our facility. The patient was noted to have an acute alteration in his mental status. There is significant concern by the family so the patient was brought to the emergency department via ALS" (2) Foot pain, left: Left ankle swelling Leukocytosis -admission left foot CT scan: No acute fracture or dislocation within the left foot. 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 Diffuse subcutaneous edema. -admission ultrasound of the left leg: Normal flow, compressibility, phasicity and augmentation of the left lower extremity deep venous structures. Mildly complex Benites's cyst, 7.1 x 2.6 cm. IIMPRESSION: No sonographic evidence of deep venous thrombosis. -patient has been comfortable and cooperative. he reports less left ankle swelling and today the left ankle not causing distress. patient cannot recall the circumstances of who sent him to the emergency room. Hospitalist discussed with daughter [phone] and it is not quite clear as to the circumstances of the reported "altered mental status" on admission. Discussed with patient and daughter that because of the elevated WBC counts on admission as 14K with initial confusion, would like to monitor the patient further in the hospital today for any further distress or if any fevers and await for some results from 12/13/2019 blood cultures. normal urine analysis on admission. Continue Physical therapy evaluation while in the hospital -patient did get solumedrol 20 mg x 1 by admitting physician and could have helped relieved some initial inflammation but his left foot does not appear to look like a cellulitis but can continue ceftriaxone as started by admitting physician for now while awaiting blood culture results -patient reports distant 20 year plus history of episode of gout flare. uric acid is with in normal limits. patient denies trauma injury to the foot or recent twisting of the ankle -as of 12/15/2019, the blood cultures from 12/14/2019 with no growth to date -discharge medication sent electronically to [facility] at [address] [facility] [place] [address] of cephalexin 500 mg q12 hours to help with inflammation of left ankle/left foot, acetaminophen 325 my every 6 hours as needed for pain of if fever (20 tablets prescribed), indomethacin 25 mg as needed three times a day for pain (15 tablets prescribed) patient should have ice on the right leg with leg elevation when at rest patient had Supratherapeutic INR, on admission (INR of 4) and his coumadin was held until 12/15/2019 when INR was 2.5 and he was given coumadin 5 mg. He can take his alternating dose of coumadin as alternating from 2.5 mg to 5 mg daily starting on 12/16/2019. a prescription for a walker was made and given to hospital case assembler to help with supplying this equipment after hospital discahrge upcoming appointments 12/20/2019 11:40 AM Provider Amee Zamudio PA-C Department Dermatology, [place] 12/21/2019 11:00 AM Provider Melo Carlos MD Department [facility]. Patient should have INR and CBC checked by primary care doctor 01/07/2020 1:30 PM Provider [facility] Department Cardiology, [facility] 01/07/2020 2:00 PM Provider Melo Rocha PA-C Department Cardiology, [facility] Coronary artery disease, status post stent, status post coronary artery bypass graft in the past History of sinus node dysfunction, status post pacemaker, history of chronic atrial fibrillation: Supratherapeutic INR, on admission (INR of 4) -coumadin initially held -CT Head: "No acute intracranial hemorrhage, midline shift, intracranial mass, hydrocephalus, territorial ischemia or abnormal extra-axial collection. Age- related involutional changes. 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 Extensive patchy white matter hypodensities suggest advanced chronic microvascular ischemic disease. 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 Cerebral vascular calcifications. Dolichoectasia of the basilar artery redemonstrated. The calvarium is intact. Prior bilateral lens replacement. The paranasal sinuses, mastoid air cells, and middle ear cavities are clear. IMPRESSION: Chronic findings as above without acute intracranial abnormality." -on aspirin -continue metoprolol succinate 50 mg BID, aspirin, isosorbide mononitrate, amlodipine, losartan -coumadin given as 5 mg on 12/15/2019 when INR 2.4 Chronic systolic congestive heart failure with ejection fraction of 50%: -on furosemide 20 mg daily -Chest X ray on admission of Cardiomegaly with pulmonary vascular congestion; Chronic interstitial coarsening but on my read without any pulmonary edema. 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 Deep venous thrombosis prophylaxis: INR is 2.4 Total Time Total Time Spent Total Time Spent (In Minutes): 40 minutes Total Time Includes: Examination of the Patient, Discharge Planning, Medication Reconciliation and Communication With Other Providers Discharge Plan Discharge Items Patient Disposition: Home - Self-Care Reason For Visit: LEFT FOOT PAIN,CONFUSION Discharge Diagnosis: Acute alteration in mental status Left Foot pain , and Left ankle swelling Leukocytosis Supratherapeutic INR, on admission Coronary artery disease, status post stent, status post coronary artery bypass graft in the past History of sinus node dysfunction, status post pacemaker, history of chronic atrial fibrillation Chronic systolic congestive heart failure with ejection fraction of 50% Type 2 diabetes mellitus with snf current use of insulin Condition on Discharge: Good Activity: Per Instructions section Non-emergency contact: Primary Care Provider Call non-emergency contact if: you have any medication questions Follow-up/Referrals: Melo Carlos MD [Primary Care Provider] - Diet: Carb Consistent or DM2 and Heart Healthy Addtl Attending Provider Instructions: discharge medication sent electronically to [facility] at [address] [place] [address] of cephalexin 500 mg q12 hours to help with inflammation of left ankle/left foot, acetaminophen 325 my every 6 hours as needed for pain of if fever (20 tablets prescribed), indomethacin 25 mg as needed three times a day for pain (15 tablets prescribed) patient should have ice on the right leg with leg elevation when at rest patient had Supratherapeutic INR, on admission (INR of 4) and his coumadin was held until 12/15/2019 when INR was 2.5 and he was given coumadin 5 mg. He can take his alternating dose of coumadin as alternating from 2.5 mg to 5 mg daily starting on 12/16/2019. a prescription for a walker was made and given to hospital case assembler to help with supplying this equipment after hospital discahrge patient should check blood sugars at home regularly and follow with primary care doctor upcoming appointments 12/20/2019 11:40 AM Provider [facility] 11:00 AM [facility] Patient should have INR and CBC checked by primary care doctor 01/07/2020 1:30 PM Provider Pacer [facility] Department Cardiology, [facility] 01/07/2020 2:00 PM Provider Melo Rocha PA-C Department Cardiology, [facility] Pending Studies at Discharge: Yes Studies:: as of 12/15/2019, the blood cultures from 12/14/2019 with no growth to date Stand-Alone Forms: My [facility] [employer], Smoking Cessation Medications and DC Order Prescriptions: New cephalexin 500 mg Capsule 500 mg PO Q12 5 Days Qty: 10 RF: 0 acetaminophen 325 mg Tablet 325 mg PO Q6H PRN (Reason: fever or pain) 5 Days Qty: 20 RF: 0 indomethacin 25 mg capsule 25 mg PO TID PRN (Reason: pain) 5 Days Qty: 15 RF: 0 Continued amlodipine 5 mg tablet 5 mg PO BID RF: 0 losartan 50 mg tablet 50 mg PO DAILY RF: 0 atorvastatin 40 mg tablet 40 mg PO DAILY RF: 0 repaglinide 2 mg tablet 4 mg PO TIDM RF: 0 metoprolol succinate 50 mg tablet extended release 24 hr 50 mg PO BID RF: 0 warfarin 2.5 mg tablet 2.5 - 5 mg PO UD RF: 0 aspirin 81 mg Tablet,Delayed Release (Dr/Ec) 81 mg PO DAILY RF: 0 isosorbide mononitrate 60 mg tablet extended release 24 hr 60 mg PO HS RF: 0 pantoprazole 40 mg tablet,delayed release (DR/EC) 40 mg PO DAILY RF: 0 metformin 1,000 mg tablet 1,000 mg PO BID RF: 0 furosemide 20 mg tablet 20 mg PO DAILY RF: 0 cholecalciferol (vitamin D3) [Vitamin D3] 1,000 unit Capsule 1,000 unit PO DAILY RF: 0 Lantus Solostar U-100 Insulin 100 unit/mL (3 mL) insulin pen 8 units subcut DAILY RF: 0 polyethylene glycol 3350 17 gram Powder In Packet 17 g PO BID PRN (Reason: Constipation) RF: 0 nitroglycerin [Nitrostat] 0.4 mg Tablet, Sublingual 0.4 mg sublingual UD PRN (Reason: Chest Pain) RF: 0 oxycodone 5 mg tablet 5 mg PO Q6H PRN (Reason: pain) Qty: 14 RF: 0 sennosides [Senokot] 8.6 mg tablet 8.6 mg PO HS Qty: 30 RF: 0 docusate sodium [Colace] 100 mg capsule 100 mg PO BID Qty: 60 RF: 0 Tradjenta 5 mg Tablet 5 mg PO DAILY RF: 0 Discontinued clindamycin HCl 300 mg capsule 600 mg PO ONCE Qty: 2 RF: 0 Discharge Orders: Discharge Order (Routine); Ordered 12/15/19 Ordered By: Jem Manzano Admission Data Admit Date/Time: 12/13/19 20:23 Attending Provider: Jem Manzano Admit Provider: Abdiel Richardson Primary Care Provider: Melo Carlos Other Providers: Abdiel Richardson
== END 2019-12-15 15:13 | disposition home or self-care (01) | DRG 603 ==
LOC: ED 16:23 → 2N 20:23 → SUATTDRO 20:23 → 2N 21:12

== ENCOUNTER 2021-06-26 17:48 | Inpatient (IN) ==
[2021-06-26] MEDS ORDERED: SODIUM CHLORIDE 0.9% 1000ML 1,000 ML IV SCH (18:00)
--- NOTE | 2021-06-26 18:03 | Emergency Department Note ---
Impression & Plan Sepsis Admission ED Provider Note HPI: The patient is an 86-year-old male who presents the emergency department after a fall today. Patient is from an assisted living facility, one of his caretakers at the facility noted that he fell on the ground several times today when she went to check on him. Per EMS report he was febrile in transport. He recently was seen here in the emergency department by myself 2 days ago, diagnosed with a possible pneumonia, he was placed on doxycycline. At that time he was seen for a fall as well. Imaging was reassuring and he was sent back to his assisted living facility. On arrival here to the ED the patient is alert, he is a poor historian at baseline, he is noted to have an oxygen saturation of 88% on room air and therefore was placed on nasal cannula oxygen with good improvement in his saturation. ROS: -General: Found down in living facility *10 point review systems was conducted and is otherwise negative unless stated above *Outpatient medications and allergy history reviewed PE: General: Alert, NAD, frail-appearing HEENT: Normocephalic, atraumatic Eyes: Extraocular eye movement is intact, no scleral erythema Pulmonary: Clear to auscultation bilaterally, no wheezing Cardio: Regular rate and rhythm GI: Abdomen is soft, nontender : No suprapubic tenderness MSK: No evidence of trauma or malformation of the extremities, no edema Skin: No evidence of rash, multiple abrasions to the bilateral knees and to the toes bilaterally without active bleeding Neuro: Alert, no focal deficits 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 This is been ongoing for several months. He is reportedly at an assisted living facility and does not have fdc care. He is unable to ambulate and accomplish his activities of daily living to the extent that he needs to at the facility. CT imaging of the head was obtained that does not show any evidence of intracranial bleeding, patient's lab work does show multiple abnormalities including a worsening leukocytosis, procalcitonin level is now elevated, troponin level is also elevated at 0.21, patient denies any chest pain. EKG does not show any acute ischemic changes. I suspect this is likely demand ischemia in the setting of underlying bacteremia. Patient is hyperglycemic although his bicarb level is 19, he was given 2 L of IV fluid here in the ED as his lactic acid level is also elevated greater than 4, will hold off on further IV fluids at this time given stable blood pressure/hemodynamic stability and concern for fluid overload with further IV fluids. Chest x-ray does not show any obvious pneumonia, urinalysis does not show infection. Patient was treated with broad-spectrum antibiotics vancomycin and cefepime given his lab abnormalities with leukocytosis and elevated lactic acid. Case was discussed with the on-call [facility] hospitalist, Dr. Richardson, patient was admitted in stable condition for further care. Sepsis diagnosis: -Source unclear at this time, leukocytosis with elevated lactic acid, blood cultures drawn in the ED x2 -Full 30 cc/kg of IV fluid not given secondary to hemodynamic stability and concern for fluid overload -Broad-spectrum antibiotics initiated -Repeat lactic acid ordered * CRITICAL CARE TIME: ( 40 ) minutes -Management of sepsis requiring initiation of broad-spectrum IV antibiotics, IV fluid resuscitation, stabilization of hypoxia with oxygen saturations less than 90% on room air requiring supplemental oxygen via nasal cannula for stabilization, interpretation of diagnostic studies, discussion with other healthcare providers and arrangement of admission Diagnosis: 1. Hypoxia 2. Sepsis with unknown origin 3. Lactic acidosis 4. Leukocytosis 5. Elevated troponin 6. Elevated procalcitonin Disposition: Admission Melo Martines DO Emergency Medicine Past Med/Surg History Medical History (Updated 06/26/21 @ 21:43 by Melo Martines DO) ACS (acute coronary syndrome) CAD (coronary artery disease) Chronic anticoagulation DM type 2 (diabetes mellitus, type 2) Dyslipidemia Dyspnea on exertion Gout History of cerebral hemorrhage HTN (hypertension) Pacemaker Pancreatic cancer Paroxysmal atrial fibrillation Sinus node dysfunction SSS (sick sinus syndrome) Surgical History H/O arthroscopic knee surgery H/O colonoscopy H/O esophagogastroduodenoscopy H/O inguinal hernia repair History of pancreatectomy "07/15/2010 Dr. 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 Beliefs That Will Affect Care: None marital status: / Current Living Situation: Alone Current Living Situation Comment: [address] current occupational status: retired Feels Safe at Home: Yes Assistive Devices: Walker Allergies Allergies Allergy/AdvReac Type Severity Reaction Status Date / Time Penicillins Allergy Intermediate HIVES Verified 06/26/21 19:52 clopidogrel Allergy Mild INTERNAL Verified 06/26/21 19:52 HIVES Home Meds Home Medications Medication Instructions Recorded Confirmed amlodipine 5 mg tablet 5 mg PO DAILY 09/04/18 06/26/21 aspirin 81 mg tablet,delayed 81 mg PO QAM 09/04/18 06/26/21 release atorvastatin 40 mg tablet 40 mg PO PM 09/04/18 06/26/21 cholecalciferol (vitamin D3) 25 1,000 unit PO QAM 09/04/18 06/26/21 mcg (1,000 unit) capsule (Vitamin D3) insulin glargine 100 unit/mL (3 16 units SUBCUT DAILY 09/04/18 06/26/21 mL) subcutaneous pen (Lantus Solostar U-100 Insulin) isosorbide mononitrate 60 mg 60 mg PO QAM 09/04/18 06/26/21 tablet,extended release 24 hr losartan 50 mg tablet 50 mg PO QAM 09/04/18 06/26/21 metoprolol succinate 50 mg 50 mg PO BID 09/04/18 06/26/21 tablet,extended release 24 hr nitroglycerin 0.4 mg sublingual 0.4 mg SUBLINGUAL UD PRN 09/04/18 06/26/21 tablet (Nitrostat) pantoprazole 40 mg tablet,delayed 40 mg PO PM 09/04/18 06/26/21 release polyethylene glycol 3350 17 gram 17 g PO BID PRN 09/04/18 06/26/21 oral powder packet warfarin 2.5 mg tablet 2.5 mg PO 5XWK 09/04/18 06/26/21 clindamycin HCl 300 mg capsule 600 mg PO ONCE PRN 09/25/20 06/26/21 acetaminophen 325 mg tablet 650 mg PO Q6H PRN MDD 3G 06/24/21 06/26/21 (Tylenol) albuterol sulfate 90 mcg/actuation 2 puff INHALATION Q6H PRN 06/24/21 06/26/21 aerosol inhaler furosemide 40 mg tablet 40 mg PO DAILY 06/24/21 06/26/21 lidocaine HCl 4 % topical cream 1 applic TOPICAL BID PRN 06/24/21 06/26/21 (Aspercreme (lidocaine HCl)) loperamide 2 mg capsule 2 mg PO UD PRN MDD 4 CAPS 06/24/21 06/26/21 metoprolol succinate 25 mg 25 mg PO BID 06/24/21 06/26/21 tablet,extended release 24 hr sennosides 8.6 mg tablet (Senokot) 8.6 - 17.2 mg PO HS PRN 06/24/21 06/26/21 warfarin 5 mg tablet 5 mg PO 2XWK 06/24/21 06/26/21 Wine/Beer 6 - 8 oz PO DAILY 06/26/21 06/26/21 calcium carbonate 300 mg (750 mg) 1,500 mg PO TID PRN 06/26/21 06/26/21 chewable tablet (Antacid Extra Strength (calcium carb)) Previous Rx's Medication Instructions Recorded doxycycline hyclate 100 mg capsule 100 mg PO BID 10 Days #20 cap 06/24/21 Results & Data (ED) Vital Signs Vital Signs - 24 hr 06/26/21 17:48 06/26/21 17:55 06/26/21 17:59 Temperature 36.9 C Temperature Source Oral Pulse Rate 70 70 61 Pulse Rate [Apical] Pulse Rate from SpO2 Sensor 63 Pulse Rhythm Regular Respiratory Rate 25 H 25 H 23 Respiratory Effort / Characteristics Non-Labored Respiratory Depth Normal Respiratory Pattern Regular Blood Pressure 148/83 H 148/83 H Blood Pressure [Right Arm] Blood Pressure Mean 104 104 Blood Pressure Mean [Right Arm] Pulse Oximetry 88 L 94 87 L Oxygen Delivery Method Room Air Nasal Cannula Oxygen Flow Rate 2 Sepsis Recent Fever Within 48 Hours No Sepsis New/Unexplained Change in Mental Status No Sepsis Action Taken by Nursing No Action Required Oxygen Flow Rate - Titration Pulse Oximetry Post Tiitration 06/26/21 18:00 06/26/21 18:05 06/26/21 18:25 Temperature Temperature Source Pulse Rate 61 Pulse Rate [Apical] Pulse Rate from SpO2 Sensor 61 Pulse Rhythm Respiratory Rate 24 25 H Respiratory Effort / Characteristics Non-Labored Respiratory Depth Respiratory Pattern Blood Pressure 170/74 H Blood Pressure [Right Arm] Blood Pressure Mean 106 Blood Pressure Mean [Right Arm] Pulse Oximetry 91 88 L 88 L Oxygen Delivery Method Nasal Cannula Nasal Cannula Oxygen Flow Rate 0 0 Sepsis Recent Fever Within 48 Hours Sepsis New/Unexplained Change in Mental Status Sepsis Action Taken by Nursing Oxygen Flow Rate - Titration 2 Pulse Oximetry Post Tiitration 94 06/26/21 18:30 06/26/21 19:00 06/26/21 20:00 Temperature Temperature Source Pulse Rate 69 Pulse Rate [Apical] 63 73 Pulse Rate from SpO2 Sensor Pulse Rhythm Respiratory Rate 23 20 20 Respiratory Effort / Characteristics Non-Labored Spontaneous Respiratory Depth Normal Respiratory Pattern Blood Pressure Blood Pressure [Right Arm] 165/75 H 167/87 H Blood Pressure Mean Blood Pressure Mean [Right Arm] 105 113 Pulse Oximetry 95 94 Oxygen Delivery Method Nasal Cannula Nasal Cannula Oxygen Flow Rate 2 2 Sepsis Recent Fever Within 48 Hours Sepsis New/Unexplained Change in Mental Status Sepsis Action Taken by Nursing Oxygen Flow Rate - Titration Pulse Oximetry Post Tiitration 06/26/21 21:15 Temperature Temperature Source Pulse Rate Pulse Rate [Apical] 65 Pulse Rate from SpO2 Sensor Pulse Rhythm Respiratory Rate 20 Respiratory Effort / Characteristics Respiratory Depth Respiratory Pattern Blood Pressure Blood Pressure [Right Arm] 164/109 H Blood Pressure Mean Blood Pressure Mean [Right Arm] 127 Pulse Oximetry 94 Oxygen Delivery Method Nasal Cannula Oxygen Flow Rate 2 Sepsis Recent Fever Within 48 Hours Sepsis New/Unexplained Change in Mental Status Sepsis Action Taken by Nursing Oxygen Flow Rate - Titration Pulse Oximetry Post Tiitration Laboratory Data Result diagrams: 06/26/21 17:55 06/26/21 17:55 Lab Results 06/26/21 06/26/21 06/26/21 Range/Units 17:55 17:55 17:55 WBC 19.41 H (4.8-10.8) K/uL RBC 4.06 L (4.7-6.1) M/uL Hgb 12.6 L (14.0-18.0) g/dL Hct 38.3 L (42-52) % MCV 94.3 (80-100) fL MCH 31.0 (25-34) pg MCHC 32.9 (32-36) g/dL RDW Std Deviation 53.4 H (36.4-46.3) fL RDW Coeff of Trevon 15.5 H (11.5-14.5) % Plt Count 156 (130-400) K/uL MPV 12.5 H (7.4-10.4) fL Immature Gran % (Auto) 0.6 % Neut % (Auto) 83.9 % Lymph % (Auto) 7.1 % [place] % (Auto) 8.3 % Eos % (Auto) 0.0 % Baso % (Auto) 0.1 % Neut # (Auto) 16.29 H (1.4-6.5) K/uL Lymph # (Auto) 1.37 (1.2-3.4) K/uL [place] # (Auto) 1.61 H (0.11-0.59) K/uL Eos # (Auto) 0.00 (0-0.5) K/uL Baso # (Auto) 0.02 (0-0.2) K/uL Immature Gran # (Auto) 0.12 H (0.00-0.02) K/uL PT (9.0-12.0) Seconds INR (0.9-1.1) APTT (21.0-31.0) Seconds PTT Ratio Sodium 141 (136-145) mmol/L Potassium 3.2 L (3.5-5.1) mmol/L Chloride 104 (98-107) mmol/L Carbon Dioxide 19 L (21-32) mmol/L Anion Gap 18 H (3-11) BUN 26 H (6-23) mg/dl Creatinine 1.51 H D (0.6-1.4) mg/dl Est Cr Clr Drug Dosing 42.6 ml/min Est GFR ( Amer) 47.8 ml/min Est GFR (Non-Af Amer) 41.2 ml/min BUN/Creatinine Ratio 17.2 (10-20) Glucose 356 H* (70-99(Fasting)) mg/dl Lactate (0.4-2.0) mmol/L Calcium 9.4 (8.5-10.1) mg/dl Magnesium 2.1 (1.7-2.4) mg/dl Total Bilirubin 3.7 H D (0.2-1.0) mg/dl AST 65 H (13-39) U/L ALT 35 (7-52) U/L Alkaline Phosphatase 91 (34-104) U/L Troponin I 0.21 H* (0-0.04) ng/ml Total Protein 7.7 (6.0-8.3) gm/dl Albumin 3.7 (3.4-5.0) gm/dl Globulin 4.0 (2.5-4.0) gm/dl Albumin/Globulin Ratio 0.9 (0.9-2) Procalcitonin 1.46 H (0-0.5) ng/ml Urine Color Urine Appearance (Clear) Urine pH (4.5-7.5) Ur Specific [place] (1.000-1.030) Urine Protein (Negative) Urine Glucose (UA) (Negative) Urine Ketones (Negative) Urine Blood (Negative) Urine Nitrite (Negative) Urine Bilirubin (Negative) Urine Urobilinogen (Negative) Ur Leukocyte Esterase (Negative) SARS-CoV-2 (PCR) (Negative) Influenza Type A (PCR) (Neg) Influenza Type B (PCR) (Neg) RSV (RT-PCR) (Neg) 06/26/21 06/26/21 06/26/21 Range/Units 17:55 18:38 18:50 WBC (4.8-10.8) K/uL RBC (4.7-6.1) M/uL Hgb (14.0-18.0) g/dL Hct (42-52) % MCV (80-100) fL MCH (25-34) pg MCHC (32-36) g/dL RDW Std Deviation (36.4-46.3) fL RDW Coeff of Trevon (11.5-14.5) % Plt Count (130-400) K/uL MPV (7.4-10.4) fL Immature Gran % (Auto) % Neut % (Auto) % Lymph % (Auto) % [place] % (Auto) % Eos % (Auto) % Baso % (Auto) % Neut # (Auto) (1.4-6.5) K/uL Lymph # (Auto) (1.2-3.4) K/uL [place] # (Auto) (0.11-0.59) K/uL Eos # (Auto) (0-0.5) K/uL Baso # (Auto) (0-0.2) K/uL Immature Gran # (Auto) (0.00-0.02) K/uL PT 16.7 H (9.0-12.0) Seconds INR 1.7 H (0.9-1.1) APTT 29.9 (21.0-31.0) Seconds PTT Ratio 1.1 Sodium (136-145) mmol/L Potassium (3.5-5.1) mmol/L Chloride (98-107) mmol/L Carbon Dioxide (21-32) mmol/L Anion Gap (3-11) BUN (6-23) mg/dl Creatinine (0.6-1.4) mg/dl Est Cr Clr Drug Dosing ml/min Est GFR ( Amer) ml/min Est GFR (Non-Af Amer) ml/min BUN/Creatinine Ratio (10-20) Glucose (70-99(Fasting)) mg/dl Lactate 4.6 H* (0.4-2.0) mmol/L Calcium (8.5-10.1) mg/dl Magnesium (1.7-2.4) mg/dl Total Bilirubin (0.2-1.0) mg/dl AST (13-39) U/L ALT (7-52) U/L Alkaline Phosphatase (34-104) U/L Troponin I (0-0.04) ng/ml Total Protein (6.0-8.3) gm/dl Albumin (3.4-5.0) gm/dl Globulin (2.5-4.0) gm/dl Albumin/Globulin Ratio (0.9-2) Procalcitonin (0-0.5) ng/ml Urine Color Urine Appearance (Clear) Urine pH (4.5-7.5) Ur Specific [place] (1.000-1.030) Urine Protein (Negative) Urine Glucose (UA) (Negative) Urine Ketones (Negative) Urine Blood (Negative) Urine Nitrite (Negative) Urine Bilirubin (Negative) Urine Urobilinogen (Negative) Ur Leukocyte Esterase (Negative) SARS-CoV-2 (PCR) NEGATIVE (Negative) Influenza Type A (PCR) Negative (Neg) Influenza Type B (PCR) Negative (Neg) RSV (RT-PCR) Negative (Neg) 06/26/21 Range/Units 21:03 WBC (4.8-10.8) K/uL RBC (4.7-6.1) M/uL Hgb (14.0-18.0) g/dL Hct (42-52) % MCV (80-100) fL MCH (25-34) pg MCHC (32-36) g/dL RDW Std Deviation (36.4-46.3) fL RDW Coeff of Trevon (11.5-14.5) % Plt Count (130-400) K/uL MPV (7.4-10.4) fL Immature Gran % (Auto) % Neut % (Auto) % Lymph % (Auto) % [place] % (Auto) % Eos % (Auto) % Baso % (Auto) % Neut # (Auto) (1.4-6.5) K/uL Lymph # (Auto) (1.2-3.4) K/uL [place] # (Auto) (0.11-0.59) K/uL Eos # (Auto) (0-0.5) K/uL Baso # (Auto) (0-0.2) K/uL Immature Gran # (Auto) (0.00-0.02) K/uL PT (9.0-12.0) Seconds INR (0.9-1.1) APTT (21.0-31.0) Seconds PTT Ratio Sodium (136-145) mmol/L Potassium (3.5-5.1) mmol/L Chloride (98-107) mmol/L Carbon Dioxide (21-32) mmol/L Anion Gap (3-11) BUN (6-23) mg/dl Creatinine (0.6-1.4) mg/dl Est Cr Clr Drug Dosing ml/min Est GFR ( Amer) ml/min Est GFR (Non-Af Amer) ml/min BUN/Creatinine Ratio (10-20) Glucose (70-99(Fasting)) mg/dl Lactate (0.4-2.0) mmol/L Calcium (8.5-10.1) mg/dl Magnesium (1.7-2.4) mg/dl Total Bilirubin (0.2-1.0) mg/dl AST (13-39) U/L ALT (7-52) U/L Alkaline Phosphatase (34-104) U/L Troponin I (0-0.04) ng/ml Total Protein (6.0-8.3) gm/dl Albumin (3.4-5.0) gm/dl Globulin (2.5-4.0) gm/dl Albumin/Globulin Ratio (0.9-2) Procalcitonin (0-0.5) ng/ml Urine Color Yellow Urine Appearance Cloudy A (Clear) Urine pH 5.5 (4.5-7.5) Ur Specific [place] 1.024 (1.000-1.030) Urine Protein 2+ H (Negative) Urine Glucose (UA) 3+ H (Negative) Urine Ketones Trace H (Negative) Urine Blood 3+ H (Negative) Urine Nitrite Negative (Negative) Urine Bilirubin Negative (Negative) Urine Urobilinogen Negative (Negative) Ur Leukocyte Esterase Negative (Negative) SARS-CoV-2 (PCR) (Negative) Influenza Type A (PCR) (Neg) Influenza Type B (PCR) (Neg) RSV (RT-PCR) (Neg) Administered Medications Potassium Chloride/Sodium Chloride (Normal Saline W/20 Meq Kcl) 20 meq in 1,000 mls @ 100 mls/hr IV .Q10H CLARISSA; Protocol Stop: 07/26/21 19:44 Last Admin: 06/26/21 21:27 Dose: 100 mls/hr Documented by: [id number] Discontinued Medications Sodium Chloride (Nss 1000ml) 1,000 mls @ 999 mls/hr IV .Q1H1M CLARISSA Stop: 06/26/21 19:00 Last Infusion: 06/26/21 20:12 Dose: 0 mls/hr Documented by: [id number] Admin: 06/26/21 18:40 Dose: 999 mls/hr Documented by: [id number] Vancomycin HCl 2,000 mg/ (Sodium Chloride) 540 mls @ 200 mls/hr IV NOW ONE Stop: 06/26/21 21:52 Last Admin: 06/26/21 19:40 Dose: 200 mls/hr Documented by: [id number] Cefepime HCl (Maxipime) 2,000 mg in 20 mls @ 5 mls/min IV NOW STA; Protocol Stop: 06/26/21 19:14 Last Admin: 06/26/21 19:40 Dose: 5 mls/min Documented by: [id number] Sodium Chloride (Nss 1000ml) 1,000 mls @ 999 mls/hr IV .Q1H1M ONE Stop: 06/26/21 20:25 Last Infusion: 06/26/21 21:24 Dose: 0 mls/hr Documented by: [id number] Admin: 06/26/21 20:11 Dose: 999 mls/hr Documented by: [id number] Imaging Data Radiologist's Impression: Chest X-Ray 06/26/21 17:55 XR chest 1V portable CLINICAL HISTORY: SEPSIS. Evaluate cardiopulmonary status COMPARISON STUDY: 06/24/2021 TECHNIQUE: 1 view of the chest FINDINGS: Single frontal view of the chest demonstrates the heart to again be enlarged status post previous cardiothoracic surgery and pacer placement. The lungs are clear of alveolar opacities. There is no evidence for pleural effusion. There is no evidence for vascular congestion. There is no acute osseous pathology. IMPRESSION: No acute cardiopulmonary disease. No significant interval change in the previous study of 2 days ago. ACT 112: Negative or not required by law. Electronically signed by: Dougie Caldera M.D. 06/26/2021 7:[address] 06/26/21 18:01 CT head/brain wo con CLINICAL HISTORY: fall with pain COMPARISON STUDY: 06/24/2021 CT DOSE: 614.27 mGy.cm TECHNIQUE: Standard CT of the Brain was performed without IV contrast. A dose lowering technique was utilized adhering to the principles of ALARA. FINDINGS: Extraaxial space: There is no evidence for subdural hematoma. There are no extra-axial fluid collections. Ventricles and cisterns: The ventricles are mildly dilated bilaterally. There is no evidence for midline shift or mass effect. Parenchyma: There is no subarachnoid or intraparenchymal hemorrhage. There is no evidence for an acute infarct or cerebral edema. 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 There is mild cerebral cortical atrophy and decreased attenuation in the periventricular white matter representing remote small vessel disease. There are no gross mass lesions. Osseous structures: There is no evidence for an acute fracture. The visualized paranasal sinuses are clear. Minimal chronic mucosal thickening within a few mastoid air cells are again seen on the left. Soft tissues: There is no evidence for focal soft tissue swelling. IMPRESSION: No acute intracerebral pathology. No change from 2 days ago. 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 Mild chronic left mastoiditis. ACT 112: Negative or not required by law. Electronically signed by: Dougie Caldera M.D. 06/26/2021 6:52 PM Hip/Pelvis X-Ray 06/26/21 18:01 XR hip AMY 2v w pelvis CLINICAL HISTORY: Status post fall with bilateral hip pain. COMPARISON STUDY: 06/24/2021 TECHNIQUE: AP pelvis and both hips each to views views FINDINGS: Bones: Bones are again osteopenic. There is no evidence for an acute fracture or dislocation. There is no lytic or blastic lesion. Joints: There is again a stable noncemented right hip replacement. Left hip joint space and SI joints are intact. The bones are in anatomic alignment. Lumbar spine: The lower lumbar spine was included on AP radiograph of the pelvis and demonstrates moderate to marked degenerative change. Soft tissues: There is no focal soft tissue abnormality. There is no radiopaque foreign body. IMPRESSION: No acute osseous pathology. Osteopenia with degenerative changes. No significant interval change from the study of 2 days ago. ACT 112: Negative or not required by law. Electronically signed by: Dougie Caldera M.D. 06/26/2021 7:41 PM Knee X-Ray 06/26/21 18:01 XR knee LT 1 or 2V routine, XR knee RT 1 or 2V routine CLINICAL HISTORY: Status post fall with bilateral knee pain. COMPARISON STUDY: No previous studies for comparison. TECHNIQUE: Both knees each 2 views views FINDINGS: Bones: There is no evidence for an acute fracture or dislocation. There is no lytic or blastic lesion. Joints: There is moderate to marked narrowing of the medial joint compartments bilaterally. Mild degenerative changes are also seen involving the lateral joint compartment and patellofemoral joints bilaterally. There is no evidence for an intra-articular effusion. There is mild genu valgum deformity present bilate rally. Soft tissues: There is no focal soft tissue abnormality. Vascular calcifications are seen within the soft tissues. There is no radiopaque foreign body. IMPRESSION: No acute osseous pathology. Osteoarthritis bilaterally. ACT 112: Negative or not required by law. Electronically signed by: Dougie Caldera M.D. 06/26/2021 7:47 PM Knee X-Ray 06/26/21 18:01 XR knee LT 1 or 2V routine, XR knee RT 1 or 2V routine CLINICAL HISTORY: Status post fall with bilateral knee pain. COMPARISON STUDY: No previous studies for comparison. TECHNIQUE: Both knees each 2 views views FINDINGS: Bones: There is no evidence for an acute fracture or dislocation. There is no lytic or blastic lesion. Joints: There is moderate to marked narrowing of the medial joint compartments bilaterally. Mild degenerative changes are also seen involving the lateral joint compartment and patellofemoral joints bilaterally. There is no evidence for an intra-articular effusion. There is mild genu valgum deformity present bilaterally. Soft tissues: There is no focal soft tissue abnormality. Vascular calcifications are seen within the soft tissues. There is no radiopaque foreign body. IMPRESSION: No acute osseous pathology. Osteoarthritis bilaterally. ACT 112: Negative or not required by law. Electronically signed by: Dougie Caldera M.D. 06/26/2021 7:47 PM Gallbladder Ultrasound 06/26/21 18:49 US gallbladder LIMITED ABDOMEN CLINICAL HISTORY: elevated bilirubin. COMPARISON: None. TECHNIQUE: Multiple grayscale and color images of the right upper quadrant of the abdomen. FINDINGS: The study is limited by overlying bowel gas. Pancreas: The imaged portion of the pancreas is within normal limits with no focal mass or peripancreatic fluid collection identified. Liver: The liver is increased in echogenicity characteristic of fatty infiltration. There is no evidence for a focal mass. There is no intrahepatic biliary duct dilatation. Gallbladder: The gallbladder is well distended with no evidence of cholelithiasis, wall thickening or pericholecystic edema. There is sludge seen within the dependent portion of the gallbladder. There was reportedly a negative sonographic Patricia sign. Common Bile Duct: (CBD): It is normal in size measuring 4 mm Inferior Vena Cava (IVC): The imaged IVC is patent. Right kidney: There is no evidence for hydronephrosis, calculus or gross renal mass. The kidney is normal in size. IMPRESSION: 1. Sludge within the gallbladder with no ultrasound evidence for cholecystitis. 2. Normal common bile duct. 3. Fatty liver. 4. Limited evaluation of the pancreas. ACT 112: Negative or not required by law. Electronically signed by: Dougie Caldera M.D. 06/26/2021 9:12 PM Discharge Plan Visit Data Chief Complaint: Altered Mental Status Stated Complaint: CONFUSION, FALL, FEVER ED Provider: Melo Martines Discharge Problem: Sepsis Forms Stand Alone Forms: [facility] Prescriptions Prescriptions: No Action amlodipine 5 mg tablet 5 mg PO DAILY RF: 0 losartan 50 mg tablet 50 mg PO QAM RF: 0 atorvastatin 40 mg tablet 40 mg PO PM RF: 0 metoprolol succinate 50 mg tablet extended release 24 hr 50 mg PO BID RF: 0 warfarin 2.5 mg tablet 2.5 mg PO 5XWK RF: 0 aspirin 81 mg Tablet,Delayed Release (Dr/Ec) 81 mg PO QAM RF: 0 isosorbide mononitrate 60 mg tablet extended release 24 hr 60 mg PO QAM RF: 0 pantoprazole 40 mg tablet,delayed release (DR/EC) 40 mg PO PM RF: 0 cholecalciferol (vitamin D3) [Vitamin D3] 1,000 unit Capsule 1,000 unit PO QAM RF: 0 Lantus Solostar U-100 Insulin 100 unit/mL (3 mL) insulin pen 16 units subcut DAILY RF: 0 polyethylene glycol 3350 17 gram Powder In Packet 17 g PO BID PRN (Reason: Constipation) RF: 0 nitroglycerin [Nitrostat] 0.4 mg Tablet, Sublingual 0.4 mg sublingual UD PRN (Reason: Chest Pain) RF: 0 calcium carbonate [Antacid Ext Str (calcium carb)] 300 mg (750 mg) Tablet,Chewable 1,500 mg PO TID PRN (Reason: Indigestion) RF: 0 Wine/Beer 6 - 8 oz PO DAILY RF: 0 clindamycin HCl 300 mg capsule 600 mg PO ONCE PRN (Reason: pretreat for dental appt) RF: 0 lidocaine HCl [Aspercreme (lidocaine HCl)] 4 % Cream 1 applic TOPICAL BID PRN (Reason: Pain) RF: 0 metoprolol succinate 25 mg Tablet Extended Release 24 Hr 25 mg PO BID RF: 0 warfarin 5 mg Tablet 5 mg PO 2XWK RF: 0 sennosides [Senokot] 8.6 mg tablet 8.6 - 17.2 mg PO HS PRN (Reason: Constipation) RF: 0 loperamide [Imodium] 2 mg Capsule 2 mg PO UD MDD 4 CAPS PRN (Reason: Diarrhea) RF: 0 furosemide 40 mg tablet 40 mg PO DAILY RF: 0 acetaminophen [Tylenol] 325 mg Tablet 650 mg PO Q6H MDD 3G PRN (Reason: Pain) RF: 0 albuterol sulfate 90 mcg/actuation HFA aerosol inhaler 2 puff INHALATION Q6H PRN (Reason: Wheezing) RF: 0 doxycycline hyclate 100 mg capsule 100 mg PO BID 10 Days Qty: 20 RF: 0 Referrals Referrals: [facility] [Primary Care Provider] - Discharge Problem: Sepsis Qualifiers: Sepsis type: sepsis due to unspecified organism Sepsis acute organ dysfunction status: unspecified Qualified Code(s): A41.9 - Sepsis, unspecified organism
[2021-06-26 18:07] LABS: Basophils # (auto) 0.02 K/uL (0-0.2); Basophils % (auto) 0.1 %; Hematocrit (blood only) 38.3 % (42-52); Hemoglobin 12.6 g/dL (14.0-18.0); Immature Granulocytes # (auto) 0.12 K/uL (0.00-0.02); Immature Granulocytes % (auto) 0.6 %; Lymphocytes # (auto) 1.37 K/uL (1.2-3.4); Lymphocytes % (auto) 7.1 %; Mean Corpuscular Hgb Conc 32.9 g/dL (32-36); Mean Corpuscular Volume 94.3 fL (80-100); Mean Platelet Volume 12.5 fL (7.4-10.4); Monocytes # (auto) 1.61 K/uL (0.11-0.59); Monocytes % (auto) 8.3 %; Neutrophils # (auto) 16.29 K/uL (1.4-6.5); Neutrophils % (auto) 83.9 %; Platelet Count 156 K/uL (130-400); RDW Coefficient of Variation 15.5 % (11.5-14.5); RDW Standard Deviation 53.4 fL (36.4-46.3); Red Blood Count 4.06 M/uL (4.7-6.1); White Blood Count 19.41 K/uL (4.8-10.8)
[2021-06-26 18:20] LABS: INR 1.7 (0.9-1.1); Partial Thromboplastin Ratio 1.1; Partial Thromboplastin Time 29.9 Seconds (21.0-31.0); Prothrombin Time 16.7 Seconds (9.0-12.0)
[2021-06-26 18:32] LABS: Albumin Globulin Ratio 0.9 (0.9-2); Albumin Level 3.7 gm/dl (3.4-5.0); BUN Creatinine Ratio 17.2 (10-20); Bilirubin,Total 3.7 mg/dl (0.2-1.0); Calcium 9.4 mg/dl (8.5-10.1); Creatinine Clr Calc Pharmacy 42.6 ml/min; Est GFR (African American) 47.8 ml/min; Est GFR (Non-African American) 41.2 ml/min; Magnesium 2.1 mg/dl (1.7-2.4); Potassium 3.2 mmol/L (3.5-5.1); Total Protein 7.7 gm/dl (6.0-8.3); Troponin I 0.21 ng/ml (0-0.04)
--- NOTE | 2021-06-26 18:53 | CT Scan Report ---
CT head/brain wo con CLINICAL HISTORY: fall with pain COMPARISON STUDY: 06/24/2021 CT DOSE: 614.27 mGy.cm TECHNIQUE: Standard CT of the Brain was performed without IV contrast. A dose lowering technique was utilized adhering to the principles of ALARA. FINDINGS: Extraaxial space: There is no evidence for subdural hematoma. There are no extra-axial fluid collecti ons. Ventricles and cisterns: The ventricles are mildly dilated bilaterally. There is no evidence for mid line shift or mass effect. Parenchyma: There is no subarachnoid or intraparenchymal hemorrhage. There is no evidence for an acu te infarct or cerebral edema. 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 There is mild cereb ral cortical atrophy and decreased attenuation in the periventricular white matter representing remot e small vessel disease. There are no gross mass lesions. Osseous structures: There is no evidence for an acute fracture. The visualized paranasal sinuses are clear. Minimal chronic mucosal thickening within a few mastoid air cells are again seen on the left. Soft tissues: There is no evidence for focal soft tissue swelling. IMPRESSION: No acute intracerebral pathology. No change from 2 days ago. Cerebral cortical atrophy, r emote small vessel disease and old right posterior parietal infarct. Mild chronic left mastoiditis. ACT 112: Negative or not required by law. Electronically signed by: Dougie Caldera M.D. 06/26/2021 6:52 PM
[2021-06-26] MEDS ORDERED: VANCOMYCIN CONSULT ACTIVE PRN (19:11)
[2021-06-26] MEDS ORDERED: VANCOMYCIN HCL 2,000 MG in SODIUM CHLORIDE 0.9% 500 ML IV ONE (19:11)
[2021-06-26] MEDS ORDERED: CEFEPIME 2,000 MG/20 ML VIAL IV STA (19:11)
[2021-06-26 19:22] LABS: Influenza A virus by PCR Negative (Neg); Influenza B virus by PCR Negative (Neg); RSV by PCR Negative (Neg); SARS CoV2 RNA(COVID-19) InHosp NEGATIVE (Negative)
[2021-06-26] MEDS ORDERED: SODIUM CHLORIDE 0.9% 1000ML 1,000 ML IV ONE (19:25)
--- NOTE | 2021-06-26 19:40 | XRay Report ---
XR chest 1V portable CLINICAL HISTORY: SEPSIS. Evaluate cardiopulmonary status COMPARISON STUDY: 06/24/2021 TECHNIQUE: 1 view of the chest FINDINGS: Single frontal view of the chest demonstrates the heart to again be enlarged status post previous car diothoracic surgery and pacer placement. The lungs are clear of alveolar opacities. There is no evide nce for pleural effusion. There is no evidence for vascular congestion. There is no acute osseous pat hology. IMPRESSION: No acute cardiopulmonary disease. No significant interval change in the previous study of 2 days ago. ACT 112: Negative or not required by law. Electronically signed by: Dougie Caldera M.D. 06/26/2021 7:39 PM
--- NOTE | 2021-06-26 19:42 | XRay Report ---
XR hip AMY 2v w pelvis CLINICAL HISTORY: Status post fall with bilateral hip pain. COMPARISON STUDY: 06/24/2021 TECHNIQUE: AP pelvis and both hips each to views views FINDINGS: Bones: Bones are again osteopenic. There is no evidence for an acute fracture or dislocation. There i s no lytic or blastic lesion. Joints: There is again a stable noncemented right hip replacement. Left hip joint space and SI joints are intact. The bones are in anatomic alignment. Lumbar spine: The lower lumbar spine was included on AP radiograph of the pelvis and demonstrates mod erate to marked degenerative change. Soft tissues: There is no focal soft tissue abnormality. There is no radiopaque foreign body. IMPRESSION: No acute osseous pathology. Osteopenia with degenerative changes. No significant interval change from the study of 2 days ago. ACT 112: Negative or not required by law. Electronically signed by: Dougie Caldera M.D. 06/26/2021 7:41 PM
[2021-06-26] MEDS ORDERED: NSS + 20MEQ KCL 20 MEQ/1,000 ML BAG IV SCH (19:45)
--- NOTE | 2021-06-26 19:48 | XRay Report ---
XR knee LT 1 or 2V routine, XR knee RT 1 or 2V routine CLINICAL HISTORY: Status post fall with bilateral knee pain. COMPARISON STUDY: No previous studies for comparison. TECHNIQUE: Both knees each 2 views views FINDINGS: Bones: There is no evidence for an acute fracture or dislocation. There is no lytic or blastic lesion . Joints: There is moderate to marked narrowing of the medial joint compartments bilaterally. Mild dege nerative changes are also seen involving the lateral joint compartment and patellofemoral joints bila terally. There is no evidence for an intra-articular effusion. There is mild genu valgum deformity pr esent bilaterally. Soft tissues: There is no focal soft tissue abnormality. Vascular calcifications are seen within the soft tissues. There is no radiopaque foreign body. IMPRESSION: No acute osseous pathology. Osteoarthritis bilaterally. ACT 112: Negative or not required by law. Electronically signed by: Dougie Caldera M.D. 06/26/2021 7:47 PM
--- NOTE | 2021-06-26 21:13 | Ultrasound Report ---
US gallbladder LIMITED ABDOMEN CLINICAL HISTORY: elevated bilirubin. COMPARISON: None. TECHNIQUE: Multiple grayscale and color images of the right upper quadrant of the abdomen. FINDINGS: The study is limited by overlying bowel gas. Pancreas: The imaged portion of the pancreas is within normal limits with no focal mass or peripancre atic fluid collection identified. Liver: The liver is increased in echogenicity characteristic of fatty infiltration. There is no evide nce for a focal mass. There is no intrahepatic biliary duct dilatation. Gallbladder: The gallbladder is well distended with no evidence of cholelithiasis, wall thickening o r pericholecystic edema. There is sludge seen within the dependent portion of the gallbladder. There was reportedly a negative sonographic Patricia sign. Common Bile Duct: (CBD): It is normal in size measuring 4 mm Inferior Vena Cava (IVC): The imaged IVC is patent. Right kidney: There is no evidence for hydronephrosis, calculus or gross renal mass. The kidney is n ormal in size. IMPRESSION: 1. Sludge within the gallbladder with no ultrasound evidence for cholecystitis. 2. Normal common bile duct. 3. Fatty liver. 4. Limited evaluation of the pancreas. ACT 112: Negative or not required by law. Electronically signed by: Dougie Caldera M.D. 06/26/2021 9:12 PM
[2021-06-26 21:27] LABS: Appearance Urine Cloudy (Clear); Bacteria Urine Automated Negative (Negative); Bilirubin Urine Negative (Negative); Blood Urine 3+ (Negative); Color Urine Yellow; Epithelial Cell Urine Auto >30 /lpf (0-5); Glucose Urine UA 3+ (Negative); Ketones Urine Trace (Negative); Leukocyte Esterase Urine Negative (Negative); Nitrite Urine Negative (Negative); Protein Urine 2+ (Negative); RBC Urine Automated 0-4 /hpf (0-4); Specific Gravity Urine 1.024 (1.000-1.030); Urobilinogen Urine Negative (Negative); pH Urine 5.5 (4.5-7.5)
[2021-06-27] MEDS ORDERED: CONSULT PHARMACY STA (00:38)
[2021-06-27] MEDS ORDERED: NovoLIN-R INSULIN PER UNIT CHARGE IV STA (00:39)
[2021-06-27] MEDS ORDERED: POTASSIUM CHLORIDE 20 MEQ/15 ML UDC PO STA (00:54)
[2021-06-27] MEDS ORDERED: ALBUTEROL HFA 8 GM INHALER INH PRN (02:07)
[2021-06-27] MEDS ORDERED: LIDOCAINE HCL 4% TOP PRN (02:07)
[2021-06-27] MEDS ORDERED: WARFARIN SOD 5 MG TAB PO SCH (02:07)
[2021-06-27] MEDS ORDERED: NITROGLYCERIN SL 0.4 MG/TAB TAB SL PRN (02:07)
[2021-06-27] MEDS ORDERED: WARFARIN SOD 2.5 MG TAB PO SCH (02:07)
[2021-06-27] MEDS ORDERED: POLYETHYLENE (MIRALAX) 17 GM PACK PO PRN (02:07)
[2021-06-27] MEDS ORDERED: MEROPENEM CONSULT ACTIVE PRN (02:07)
[2021-06-27] MEDS ORDERED: CALCIUM CARBONATE 500 MG CHEWABLE TAB PO PRN (02:20)
[2021-06-27] MEDS ORDERED: DEXTROSE 50% 50 ML SYRINGE IV PRN (02:30)
[2021-06-27] MEDS ORDERED: CARBOHYDRATES FOR HYPOGLYCEMIA PO PRN (02:30)
[2021-06-27] MEDS ORDERED: GLUCOSE 40% GEL 15 GM TUBE PO PRN (02:30)
[2021-06-27] MEDS ORDERED: GLUCAGON FOR INJ 1 MG VIAL IM PRN (02:30)
[2021-06-27] MEDS ORDERED: GLUCOSE 10 TABS/TUBE PO PRN (02:30)
--- NOTE | 2021-06-27 02:45 | History and Physical Report ---
DATE OF ADMISSION: 06/27/2021. CHIEF COMPLAINT: Altered mental status and sepsis. HISTORY OF PRESENT ILLNESS: This is an 86-year-old male with past medical history significant for type 2 diabetes, gout, hyperlipidemia, chronic rhinitis, sinus node dysfunction, paroxysmal atrial fibrillation, status post pacemaker, history of hypertension, chronic systolic CHF with EF of 50% in 2019 echo, cognitive disorder, CAD status post stent, status post CABG, history of splenectomy, history of pancreatic cancer, history of intracerebral hemorrhage. The patient currently lives at [facility]. Ambulates with a cane. Was brought in because of frequent falls and fever. The patient was recently in the ER with fall and thought to be possible pneumonia and started on doxycycline and send back, but today he was falling frequently and also having fever, mild cough, and as per the skilled nursing they noticed knee swelling since last Tuesday, since then he is falling more frequently. He also scraped his toes and was brought in here. As per the skilled nursing, he has dementia for recent memory, but remote memory is intact. He eats regular food and no nausea, vomiting, or diarrhea recently. The patient is alert and awake, hard of hearing. Denies any headache, denies any neck pain. Complains of back pain. No abdominal pain, no chest pain, no shortness of breath, no nausea. He has normal bowel and bladder movements. Hemodynamically stable, but his lactic acid initially when he came in was 4.6 and after fluids repeat is 2.6, glucose is 356. Received vancomycin and cefepime in the ER. Troponin 0.2. COVID is negative.As per skilled nursing patient is fully vaccinated with a booster in March, with Moderna vaccine. ALLERGIES: PENICILLINS, PLAVIX. PAST MEDICAL HISTORY: As mentioned above. PAST SURGICAL HISTORY: CABG, colonoscopy, knee arthroscopy, laparoscopic pancreatectomy, distal subtotal without splenectomy without pancreaticojejunostomy, tonsillectomy and adenoidectomy, inguinal hernia repair. MEDICATIONS: The patient is on Tylenol 650 mg p.o. q. 6 hours p.r.n., albuterol 2 puffs inhalation q. 6 hours p.r.n., amlodipine 5 mg p.o. daily, aspirin 81 mg p.o. a.m., atorvastatin 40 mg p.o. a.m., Tums 1500 mg p.o. t.i.d. p.r.n., vitamin D 1,000 units p.o. a.m., doxycycline 100 mg p.o. b.i.d., furosemide 40 mg p.o. daily, isosorbide mononitrate 60 mg p.o. a.m., Lantus 16 units subcutaneous daily, Imodium p.r.n., losartan 50 mg p.o. daily, metoprolol succinate 50 mg p.o. b.i.d., nitroglycerin 0.4 mg sublingual p.r.n., Protonix 40 mg p.o. a.m., MiraLax 17 g p.o. b.i.d. p.r.n., Senokot p.r.n., warfarin 2.5 mg p.o. 5 times a week and warfarin 5 mg p.o. 2 times a week. FAMILY HISTORY: Brother has diabetes, heart disorder, hypertension. SOCIAL HISTORY: , currently lives in [facility]. Former smoker. Drinks 3-4 conrado per week. No drug use. REVIEW OF SYSTEMS: As per HPI. Could not get complete review of systems as the patient is somewhat hard of hearing and has some dementia. PHYSICAL EXAMINATION: GENERAL: The patient is old and frail, not in acute distress, hard of hearing. VITAL SIGNS: Temperature 36.9, pulse 64, respiratory rate 20, blood pressure 178/96, oxygen 93% on 2 liters, was 88% on room air. HEENT: Pupils equal, round and reactive to light. Oral mucosa dry. NECK: No JVD, no neck masses. CARDIOVASCULAR: S1 and S2 heard. Regular rate and rhythm. No murmur, no gallop. RESPIRATORY SYSTEM: Normal AP diameter. No accessory muscle use. No wheezing, no crackles. ABDOMEN: Soft, bowel sounds present, nontender, no distention. CENTRAL NERVOUS SYSTEM: Cranial nerves II through XII are grossly intact, nonfocal. EXTREMITIES: Right knee swelling, bruises in his toes. LABORATORY DATA: WBC 19.4, hemoglobin 12.6, hematocrit 38.3, platelets 156. PT 16.7, INR 1.7, APTT 29.1. Sodium 141, potassium 3.2, chloride 104, bicarbonate 19, BUN 26, creatinine 1.5, serum glucose 356. Lactate initially was 4.6, repeat 2.6, calcium 9.4, magnesium 2.1, total bilirubin 3.7, AST 65, ALT 35, alkaline phosphatase 91. Troponin 1 of 0.2. Urinalysis, +3 glucose. SARS-CoV-2 PCR negative. Influenza A and B PCR negative. RSV PCR negative. IMAGING DATA: Gallbladder ultrasound, sludge with gallbladder with no ultrasound evidence of cholecystitis. Normal common bile duct. Knee x-ray, bilateral knees, no acute osseous pathology, osteoarthritis bilaterally. Hip and pelvic x-ray, no acute findings. Head CT, no acute findings. Chest x-ray, no acute findings. EKG: Ventricular paced rhythm with occasional PVCs at a rate of 63, QTc of 564. ASSESSMENT AND PLAN: This is an 86-year-old male who presents with sepsis and frequent falls. 1. Sepsis and frequent falls: most likely possible pneumonia vs gal bladder disease.. UA is negative. Will follow the cultures. Gallbladder ultrasound shows sludge but no cystitis. His bilirubin is elevated at 3.5. Since the patient also drinks alcohol, will follow the repeat LFTs in the a.m. Empirically started on vancomycin and meropenem. Continue his p.o. doxycycline. Continue fluids with normal saline at 100 mL per hour. Follow the repeat lactic acid and closely monitor in the tele floor. 2. Acute kidney injury: Creatinine of 1.5, baseline creatinine seems to be around 1, possibly secondary to above. Getting fluids. Avoid nephrotoxic agents. Will follow the labs. 3. Hyperglycemia, history of diabetes: Continue his Lantus. Placed on insulin sliding scale. Will give one dose of IV insulin. Closely monitor and follow the bicarb levels. 4. Mild elevation of troponin: Most likely secondary to demand ischemia for sepsis. Will follow the serial enzymes. If any concern, will get echo. 5. Hypokalemia: Will replace. 6. Coronary artery disease: Status post stents with CABG. Continue his metoprolol succinate, statin, and aspirin. 7. Hypertension: Continue his amlodipine, metoprolol succinate and Imdur with hold parameters.. Holding the diuretics. Holding his losartan for now because of sepsis. Will monitor the blood pressure. Restart losartan when the sepsis is resolved. 8. History of atrial fibrillation, history of sick sinus syndrome: Status post pacemaker. Rate controlled with metoprolol succinate. On Coumadin. Follow the PT/INR. 9. Gastroesophageal reflux disease: On Protonix. 10. Hyperlipidemia: On statin. 11. Chronic systolic congestive heart failure: With EF of 50%. Holding diuretics. Getting fluids. Monitor for volume overload. 12. Deep venous thrombosis prophylaxis: On Coumadin. Follow PT/INR. DISPOSITION: Admit to tele floor. PT/OT prior to discharge. Social service to help with discharge planning. Job ID: [id number] [facility]
[2021-06-27] MEDS ORDERED: INSULIN ASPART PER UNIT SC SCH (03:00)
[2021-06-27] MEDS: MEROPENEM 500 MG in SYRINGE 0 ML IV SCH ×2 (03:05→11:39)
[2021-06-27] MEDS: SODIUM CHLORIDE 0.9% 1000ML 1,000 ML IV SCH ×3 (03:06→20:19)
--- NOTE | 2021-06-27 03:08 | Pharmacy Report ---
Pharmacy Abx Initial Consult - Date of Service June 27, 2021 - Pharmacy Dosing Scope Date of Consult: 06/27/21 Consultation requested by: Dr. Richardson Pharmacy is consulted to initiate Vancomycin and Meropenem IV dosing therapy, order appropriate labs and adjust drug dose/frequency. - Subjective The patient is a 86 year old M admitted on 06/27/21 00:34. - Objective Height: 5 ft 11 in Weight: 75.6 kg Vital Signs (Past 12hrs): Vital Signs Temp Pulse Pulse Resp BP BP Pulse Ox 06/27/21 01:45 77 20 153/86 H 96 06/27/21 01:00 65 20 154/95 H 94 06/27/21 00:30 64 20 178/96 H 93 06/27/21 00:00 63 22 160/89 H 95 06/26/21 23:30 61 20 148/87 H 96 06/26/21 23:00 66 20 151/84 H 96 06/26/21 22:30 67 20 148/89 H 94 06/26/21 22:00 64 20 158/80 H 95 06/26/21 21:15 65 20 164/109 H 94 06/26/21 20:00 73 20 167/87 H 94 06/26/21 19:00 63 20 165/75 H 95 06/26/21 18:30 69 23 06/26/21 18:25 25 H 88 L 06/26/21 18:05 88 L 06/26/21 18:00 61 24 170/74 H 91 06/26/21 17:59 61 23 148/83 H 87 L 06/26/21 17:55 70 25 H 94 06/26/21 17:48 36.9 C 70 25 H 148/83 H 88 L Lab Results (24hrs): Laboratory Tests (24 Hours) 06/26/21 06/26/21 06/26/21 17:55 17:55 17:55 WBC 19.41 H Neut # (Auto) 16.29 H Creatinine 1.51 H D Est Cr Clr Drug Dosing 42.6 Procalcitonin 1.46 H Micro Results: 06/26/21 21:03 Urine Culture - Pending Urine,Clean Catch 06/26/21 18:50 Aerobic Blood Culture - Pending Blood Anaerobic Blood Culture - Pending 06/26/21 18:51 Aerobic Blood Culture - Pending Blood Anaerobic Blood Culture - Pending - Risk Factors for Resistance * Resident in a detention or extended-care facility - Assessment & Plan Assessment 86 year old M admitted from [facility] with AMS/frequent falls, sepsis likely secondary to PNA. Plan Vancomycin IV * Loading dose: 2000mg (20 mg/kg) * Maintenance dose: 750 mg IV (10 mg/kg) every 18 hours * Goal trough level for PNA : 15 to 20 mcg/mL * AUC/KRISTA is the preferred PK/PD target for vancomycin * AUC guided dosing is effective and associated with decreased risk of nephrotoxicity compared to traditional trough targets * The above dose is predicted to achieve target AUC/KRISTA of 400-600 mg/L.hr and may be associated with a 16 % risk of nephrotoxicity Pharmacy will continue to follow and will adjust dose/frequency as necessary. Thank you.
[2021-06-27 07:03] LABS: Basophils # (auto) 0.03 K/uL (0-0.2); Basophils % (auto) 0.2 %; Eosinophils # (auto) 0.14 K/uL (0-0.5); Eosinophils % (auto) 0.7 %; Hematocrit (blood only) 35.9 % (42-52); Hemoglobin 11.7 g/dL (14.0-18.0); Immature Granulocytes # (auto) 0.11 K/uL (0.00-0.02); Immature Granulocytes % (auto) 0.6 %; Lymphocytes # (auto) 1.96 K/uL (1.2-3.4); Lymphocytes % (auto) 10.5 %; Mean Corpuscular Hemoglobin 30.5 pg (25-34); Mean Corpuscular Hgb Conc 32.6 g/dL (32-36); Mean Corpuscular Volume 93.7 fL (80-100); Mean Platelet Volume 12.5 fL (7.4-10.4); Monocytes % (auto) 10.2 %; Neutrophils # (auto) 14.53 K/uL (1.4-6.5); Neutrophils % (auto) 77.8 %; Platelet Count 149 K/uL (130-400); RDW Coefficient of Variation 15.5 % (11.5-14.5); RDW Standard Deviation 53.3 fL (36.4-46.3); Red Blood Count 3.83 M/uL (4.7-6.1); White Blood Count 18.67 K/uL (4.8-10.8)
[2021-06-27 07:37] LABS: Albumin Level 3.2 gm/dl (3.4-5.0); BUN Creatinine Ratio 22.6 (10-20); Bilirubin Direct 0.4 mg/dl (0-0.2); Bilirubin,Total 2.3 mg/dl (0.2-1.0); Calcium 8.4 mg/dl (8.5-10.1); Creatinine Clr Calc Pharmacy 49.1 ml/min; Est GFR (African American) 66.4 ml/min; Est GFR (Non-African American) 57.3 ml/min; Magnesium 1.9 mg/dl (1.7-2.4); Potassium 3.5 mmol/L (3.5-5.1); Total Protein 6.7 gm/dl (6.0-8.3)
[2021-06-27] MEDS ORDERED: CEFEPIME 2,000 MG in SYRINGE 0 ML IV SCH (08:00)
[2021-06-27] MEDS: amLODIPine BESYLATE 5 MG TAB PO SCH (08:16)
[2021-06-27] MEDS: METOPROLOL SUCC 25MG EXT REL TAB PO SCH ×2 (08:16→20:21)
[2021-06-27] MEDS: ISOSORBIDE MONO EXTENDED REL 60 MG TABCR PO SCH (08:16)
[2021-06-27] MEDS: CHOLECALCIFEROL 1,000 UNITS 25 MCG TAB PO SCH (08:16)
[2021-06-27] MEDS: ASPIRIN 81 MG ECTAB PO SCH (08:16)
[2021-06-27] MEDS: INSULIN ASPART PER UNIT SC SCH ×5 (08:18→23:29)
[2021-06-27] MEDS ORDERED: [UNRECOGNIZED DRUG - OTHER] PO SCH (09:00)
[2021-06-27] MEDS ORDERED: DOXYCYCLINE HYCLATE 100 MG CAP PO SCH (09:00)
[2021-06-27] MEDS ORDERED: INSULIN GLARGINE SOLOSTAR 100 UNITS/ML 3 ML PEN SQ SCH ×2 (09:00→21:00)
[2021-06-27 09:01] LABS: Estimated Average Glucose 212 mg/dl
--- NOTE | 2021-06-27 09:54 | Electrocardiogram Report ---
Test Reason : Blood Pressure : / mmHG Vent. Rate : 070 BPM Atrial Rate : 042 BPM P-R Int : 000 ms QRS Dur : 208 ms QT Int : 534 ms P-R-T Axes : 000 -80 082 degrees QTc Int : 576 ms Ventricular-paced rhythm with frequent Premature ventricular complexes Abnormal ECG When compared with ECG of 13-DEC-2019 16:30, Vent. rate has increased BY 6 BPM Confirmed by Ajit Stokes ([id number]) on 06/27/2021 9:53:27 AM Referred By: Nagi [facility] Confirmed By:Ajit Stokes
--- NOTE | 2021-06-27 10:31 | Electrocardiogram Report ---
Test Reason : Blood Pressure : / mmHG Vent. Rate : 063 BPM Atrial Rate : 037 BPM P-R Int : 000 ms QRS Dur : 218 ms QT Int : 552 ms P-R-T Axes : 000 -79 092 degrees QTc Int : 564 ms Ventricular-paced rhythm with occasional Premature ventricular complexes Abnormal ECG When compared with ECG of 24-JUN-2021 20:36, Vent. rate has decreased BY 5 BPM Confirmed by Ajit Stokes ([id number]) on 06/27/2021 10:31:31 AM Referred By: Nagi Delgadillo [place] Confirmed By:Ajit Stokes
--- NOTE | 2021-06-27 11:27 | Hospitalist Progress Note ---
Date of Service June 27, 2021 Assessment & Plan (1) Sepsis: (2) Fall: (3) Cellulitis: (4) MAULIK (acute kidney injury): Plan: Patient did meet SIRS c on admission with leukocytosis, respiratory rate 25. Possible severe sepsis considering lactate of 4.6 on admission and MAULIK. Patient got IV fluids. Elevated lactic acid resolved. MAULIK is resolved. It is unclear source of possible infection at this time considering chest x-ray is unremarkable, UA is negative for nitrite or esterase. Possibilities include GI source considering gallbladder ultrasound showing sludge but no signs of cholecystitis, normal CBD. LFTs only notable for total bilirubin of 2.3 and mildly elevated AST at 85. Procalcitonin is elevated at 1.46. Patient was started on meropenem and vancomycin. Will discontinue meropenem for now. We will do cefepime and Flagyl to cover possible GI in view of recent antibiotics. We will get MRSA screen and de-escalate vancomycin as appropriate Wound care for excoriations on leg Discussed with pharmacist. Follow-up blood cultures and urine culture in lab Will need PT/OT eval (5) S/P CABG x 1: (6) S/P coronary artery stent placement: (7) Sinus node dysfunction: (8) Pacemaker: (9) CAD (coronary artery disease): (10) HTN (hypertension): (11) Paroxysmal atrial fibrillation: Plan: Continue statin and metoprolol succinate Continue warfarin. Monitor INR. Patient's diuretics home on hold Trop was mildly elevated at 0.21. Recheck (12) DM type 2 (diabetes mellitus, type 2): Plan: HbA1c 9 ISS and lantus per protocol Glycemic pharm c/s Admission and Anticipated Discharge Date Admission Date: June 27, 2021 Subjective Patient seen and exam Reports some dry cough Denied any chest pain, shortness of breath Denied any nausea, vomiting, diarrhea, abd pain Denied any fevers or chills Reports wounds on legs which he said happened with his falls Physical Exam Constitutional: + well hydrated; no acute distress Eyes: PERRL, conjunctivae normal, anicteric sclerae ENMT: external ear and nose normal, oropharynx normal Respiratory: normal respiratory effort, lungs clear to auscultation Cardiovascular: Rate/Rhythm: regular rate and regular rhythm S1 S2 Gastrointestinal (Abdomen): normal bowel sounds, soft, nontender, no hepatosplenomegaly Musculoskeletal: Bruises and excoriations over dorsal surfaces of toes with some erythema/no drainage; in both feet (L>R) Neurologic: PERRL, EOMI, accommodation nl, no face palsy, no dysarthria Psychiatric: AOx2 (person and place), cooperative Results & Data Results & Data ([place]) Vital Signs (Past 12 Hours) Vital Signs Temp Pulse Pulse Resp BP Pulse Ox 06/27/21 10:56 36.5 C 64 18 120/71 94 06/27/21 08:13 36.8 C 67 18 152/86 H 93 06/27/21 07:22 64 06/27/21 04:00 36.7 C 64 20 153/88 H 94 06/27/21 01:45 77 20 153/86 H 96 06/27/21 01:00 65 20 154/95 H 94 06/27/21 00:30 64 20 178/96 H 93 06/27/21 00:00 63 22 160/89 H 95 06/26/21 23:30 61 20 148/87 H 96 Laboratory Results Abnormal lab results 06/26/21 06/26/21 06/26/21 Range/Units 17:55 17:55 17:55 WBC 19.41 H (4.8-10.8) K/uL RBC 4.06 L (4.7-6.1) M/uL Hgb 12.6 L (14.0-18.0) g/dL Hct 38.3 L (42-52) % RDW Std Deviation 53.4 H (36.4-46.3) fL RDW Coeff of Trevon 15.5 H (11.5-14.5) % MPV 12.5 H (7.4-10.4) fL Neut # (Auto) 16.29 H (1.4-6.5) K/uL Henry # (Auto) 1.61 H (0.11-0.59) K/uL Immature Gran # (Auto) 0.12 H (0.00-0.02) K/uL PT (9.0-12.0) Seconds INR (0.9-1.1) Potassium 3.2 L (3.5-5.1) mmol/L Chloride (98-107) mmol/L Carbon Dioxide 19 L (21-32) mmol/L Anion Gap 18 H (3-11) BUN 26 H (6-23) mg/dl Creatinine 1.51 H D (0.6-1.4) mg/dl BUN/Creatinine Ratio (10-20) Glucose 356 H* (70-99(Fasting)) mg/dl POC Glucose (70-99) mg/dl Hemoglobin A1c (4.5-5.6) % Lactate (0.4-2.0) mmol/L Calcium (8.5-10.1) mg/dl Total Bilirubin 3.7 H D (0.2-1.0) mg/dl Direct Bilirubin (0-0.2) mg/dl AST 65 H (13-39) U/L Troponin I 0.21 H* (0-0.04) ng/ml Albumin (3.4-5.0) gm/dl Procalcitonin 1.46 H (0-0.5) ng/ml Urine Appearance (Clear) Urine Protein (Negative) Urine Glucose (UA) (Negative) Urine Ketones (Negative) Urine Blood (Negative) Urine WBC (Auto) (0-5) /hpf U Epithel Cells (Auto) (0-5) /lpf Granular Casts (0) /lpf 06/26/21 06/26/21 06/26/21 Range/Units 17:55 18:50 21:03 WBC (4.8-10.8) K/uL RBC (4.7-6.1) M/uL Hgb (14.0-18.0) g/dL Hct (42-52) % RDW Std Deviation (36.4-46.3) fL RDW Coeff of Trevon (11.5-14.5) % MPV (7.4-10.4) fL Neut # (Auto) (1.4-6.5) K/uL Henry # (Auto) (0.11-0.59) K/uL Immature Gran # (Auto) (0.00-0.02) K/uL PT 16.7 H (9.0-12.0) Seconds INR 1.7 H (0.9-1.1) Potassium (3.5-5.1) mmol/L Chloride (98-107) mmol/L Carbon Dioxide (21-32) mmol/L Anion Gap (3-11) BUN (6-23) mg/dl Creatinine (0.6-1.4) mg/dl BUN/Creatinine Ratio (10-20) Glucose (70-99(Fasting)) mg/dl POC Glucose (70-99) mg/dl Hemoglobin A1c (4.5-5.6) % Lactate 4.6 H* (0.4-2.0) mmol/L Calcium (8.5-10.1) mg/dl Total Bilirubin (0.2-1.0) mg/dl Direct Bilirubin (0-0.2) mg/dl AST (13-39) U/L Troponin I (0-0.04) ng/ml Albumin (3.4-5.0) gm/dl Procalcitonin (0-0.5) ng/ml Urine Appearance Cloudy A (Clear) Urine Protein 2+ H (Negative) Urine Glucose (UA) 3+ H (Negative) Urine Ketones Trace H (Negative) Urine Blood 3+ H (Negative) Urine WBC (Auto) 10-30 H (0-5) /hpf U Epithel Cells (Auto) >30 H (0-5) /lpf Granular Casts 1-5 H (0) /lpf 06/26/21 06/27/21 06/27/21 Range/Units 21:24 00:45 06:53 WBC 18.67 H (4.8-10.8) K/uL RBC 3.83 L (4.7-6.1) M/uL Hgb 11.7 L (14.0-18.0) g/dL Hct 35.9 L (42-52) % RDW Std Deviation 53.3 H (36.4-46.3) fL RDW Coeff of Trevon 15.5 H (11.5-14.5) % MPV 12.5 H (7.4-10.4) fL Neut # (Auto) 14.53 H (1.4-6.5) K/uL Henry # (Auto) 1.90 H (0.11-0.59) K/uL Immature Gran # (Auto) 0.11 H (0.00-0.02) K/uL PT (9.0-12.0) Seconds INR (0.9-1.1) Potassium (3.5-5.1) mmol/L Chloride (98-107) mmol/L Carbon Dioxide (21-32) mmol/L Anion Gap (3-11) BUN (6-23) mg/dl Creatinine (0.6-1.4) mg/dl BUN/Creatinine Ratio (10-20) Glucose (70-99(Fasting)) mg/dl POC Glucose 307 H* (70-99) mg/dl Hemoglobin A1c (4.5-5.6) % Lactate 2.6 H* (0.4-2.0) mmol/L Calcium (8.5-10.1) mg/dl Total Bilirubin (0.2-1.0) mg/dl Direct Bilirubin (0-0.2) mg/dl AST (13-39) U/L Troponin I (0-0.04) ng/ml Albumin (3.4-5.0) gm/dl Procalcitonin (0-0.5) ng/ml Urine Appearance (Clear) Urine Protein (Negative) Urine Glucose (UA) (Negative) Urine Ketones (Negative) Urine Blood (Negative) Urine WBC (Auto) (0-5) /hpf U Epithel Cells (Auto) (0-5) /lpf Granular Casts (0) /lpf 06/27/21 06/27/21 06/27/21 Range/Units 06:53 06:53 07:11 WBC (4.8-10.8) K/uL RBC (4.7-6.1) M/uL Hgb (14.0-18.0) g/dL Hct (42-52) % RDW Std Deviation (36.4-46.3) fL RDW Coeff of Trevon (11.5-14.5) % MPV (7.4-10.4) fL Neut # (Auto) (1.4-6.5) K/uL Henry # (Auto) (0.11-0.59) K/uL Immature Gran # (Auto) (0.00-0.02) K/uL PT (9.0-12.0) Seconds INR (0.9-1.1) Potassium (3.5-5.1) mmol/L Chloride 112 H (98-107) mmol/L Carbon Dioxide 20 L (21-32) mmol/L Anion Gap (3-11) BUN 26 H (6-23) mg/dl Creatinine (0.6-1.4) mg/dl BUN/Creatinine Ratio 22.6 H (10-20) Glucose 263 H (70-99(Fasting)) mg/dl POC Glucose 279 H (70-99) mg/dl Hemoglobin A1c 9.0 H (4.5-5.6) % Lactate (0.4-2.0) mmol/L Calcium 8.4 L (8.5-10.1) mg/dl Total Bilirubin 2.3 H (0.2-1.0) mg/dl Direct Bilirubin 0.4 H (0-0.2) mg/dl AST 85 H (13-39) U/L Troponin I (0-0.04) ng/ml Albumin 3.2 L (3.4-5.0) gm/dl Procalcitonin (0-0.5) ng/ml Urine Appearance (Clear) Urine Protein (Negative) Urine Glucose (UA) (Negative) Urine Ketones (Negative) Urine Blood (Negative) Urine WBC (Auto) (0-5) /hpf U Epithel Cells (Auto) (0-5) /lpf Granular Casts (0) /lpf 06/27/21 06/27/21 Range/Units 07:30 11:20 WBC (4.8-10.8) K/uL RBC (4.7-6.1) M/uL Hgb (14.0-18.0) g/dL Hct (42-52) % RDW Std Deviation (36.4-46.3) fL RDW Coeff of Trevon (11.5-14.5) % MPV (7.4-10.4) fL Neut # (Auto) (1.4-6.5) K/uL Henry # (Auto) (0.11-0.59) K/uL Immature Gran # (Auto) (0.00-0.02) K/uL PT (9.0-12.0) Seconds INR (0.9-1.1) Potassium (3.5-5.1) mmol/L Chloride (98-107) mmol/L Carbon Dioxide (21-32) mmol/L Anion Gap (3-11) BUN (6-23) mg/dl Creatinine (0.6-1.4) mg/dl BUN/Creatinine Ratio (10-20) Glucose (70-99(Fasting)) mg/dl POC Glucose 231 H 278 H (70-99) mg/dl Hemoglobin A1c (4.5-5.6) % Lactate (0.4-2.0) mmol/L Calcium (8.5-10.1) mg/dl Total Bilirubin (0.2-1.0) mg/dl Direct Bilirubin (0-0.2) mg/dl AST (13-39) U/L Troponin I (0-0.04) ng/ml Albumin (3.4-5.0) gm/dl Procalcitonin (0-0.5) ng/ml Urine Appearance (Clear) Urine Protein (Negative) Urine Glucose (UA) (Negative) Urine Ketones (Negative) Urine Blood (Negative) Urine WBC (Auto) (0-5) /hpf U Epithel Cells (Auto) (0-5) /lpf Granular Casts (0) /lpf (1) Sepsis Sepsis acute organ dysfunction status: unspecified Sepsis type: sepsis due to unspecified organism Qualified Code(s): A41.9 - Sepsis, unspecified organism (2) Fall Encounter type: initial encounter Qualified Code(s): W19.XXXA - Unspecified fall, initial encounter (3) Cellulitis Laterality: left Site of cellulitis: extremity Site of cellulitis of extremity: lower extremity Qualified Code(s): L03.116 - Cellulitis of left lower limb
[2021-06-27] MEDS ORDERED: PHARMACY GLYCEMIC MGMT CONSULT PRN (13:04)
[2021-06-27] MEDS: metroNIDAZOLE 500 MG TAB PO SCH ×2 (13:39→20:21)
[2021-06-27] MEDS ORDERED: VANCOMYCIN HCL 750 MG in SODIUM CHLORIDE 0.9% 250 ML IV SCH (14:00)
--- NOTE | 2021-06-27 14:41 | Pharmacy Report ---
Pharmacy Glycemic Short Note 2 - Date of Service June 27, 2021 - Glycemic Short BSG Results (Last 24 hours): 06/26/21 06/27/21 06/27/21 17:55 00:45 06:53 Glucose 356 H* 263 H POC Glucose 307 H* 06/27/21 06/27/21 06/27/21 07:11 07:30 11:20 Glucose POC Glucose 279 H 231 H 278 H 06/27/21 14:10 Glucose POC Glucose 228 H OUTPATIENT ANTIDIABETIC REGIMEN: * Lantus 16 units SC daily * HbA1c 9% (06/27/21) ASSESSMENT: * BEN is an 86 year old male who presented to ED yesterday evening after a fall at assisted living facility * Admitted for altered mental status and sepsis secondary to currently unclear source * Currently receiving broad spectrum antibiotics (cefepime, metronidazole, and vancomycin) * MAULIK resolving, SCr 1.51 -> 1.15 mg/dL * Pharmacy consulted around lunchtime for BSG of 278 mg/dL, repeat BSG at 1410 is 228 mg/dL * Will hold off on insulin infusion given downtrend in BSGs * Patient already received home dose of basal insulin this morning, will plan on Lantus scale this evening to potentially provide increased dose of basal insulin + Novolog q4h overnight in case dosing inadequate PLAN FOR INPATIENT GLYCEMIC CONTROL: * Basal insulin * Lantus 16 units SQ x 1 this morning * Lanuts 0-10 units SC HS (see EHR for details) * Bolus insulin * NovoLog per scale ACHS or Q6hrs while NPO * Goal Range: Low 120 mg/dL - High 160 mg/dL * Correction Factor: 25 mg/dL/unit * Nutritional / Prandial insulin per carb ratio of 1 unit per 9 grams CHO consumed * overnight checks at 00,04 with same parameters PLAN FOR DISCHARGE: * tbd
[2021-06-27] MEDS: CEFEPIME 2,000 MG in SYRINGE 0 ML IV SCH (15:27)
[2021-06-27] MEDS: WARFARIN SOD 2.5 MG TAB PO SCH (15:27)
[2021-06-27] MEDS: ACETAMINOPHEN 325 MG TAB PO PRN (17:07)
[2021-06-27] MEDS: PANTOprazole 40 MG TAB PO SCH (20:21)
[2021-06-27] MEDS: ATORVASTATIN 40 MG TAB PO SCH (20:21)
[2021-06-28] MEDS: CEFEPIME 2,000 MG in SYRINGE 0 ML IV SCH ×2 (03:40→14:22)
[2021-06-28] MEDS: INSULIN ASPART PER UNIT SC SCH ×5 (03:49→21:09)
[2021-06-28] MEDS: SODIUM CHLORIDE 0.9% 1000ML 1,000 ML IV SCH (05:15)
[2021-06-28 06:50] LABS: Hematocrit (blood only) 34.6 % (42-52); Hemoglobin 11.4 g/dL (14.0-18.0); Mean Corpuscular Hemoglobin 31.1 pg (25-34); Mean Corpuscular Hgb Conc 32.9 g/dL (32-36); Mean Corpuscular Volume 94.3 fL (80-100); Mean Platelet Volume 10.9 fL (7.4-10.4); Nucleated RBC # (auto) 0.04 K/uL (0-0); Nucleated RBC % (auto) 0.3 %; Platelet Count 151 K/uL (130-400); RDW Coefficient of Variation 15.7 % (11.5-14.5); Red Blood Count 3.67 M/uL (4.7-6.1); White Blood Count 14.24 K/uL (4.8-10.8)
[2021-06-28 07:12] LABS: Albumin Globulin Ratio 0.9 (0.9-2); BUN Creatinine Ratio 23.9 (10-20); Bilirubin,Total 1.5 mg/dl (0.2-1.0); Calcium 8.2 mg/dl (8.5-10.1); Creatinine Clr Calc Pharmacy 58.2 ml/min; Est GFR (African American) 70.9 ml/min; Est GFR (Non-African American) 61.1 ml/min; Globulin 3.5 gm/dl (2.5-4.0); Potassium 3.6 mmol/L (3.5-5.1); Total Protein 6.5 gm/dl (6.0-8.3)
[2021-06-28 07:32] LABS: INR 2.7 (0.9-1.1); Prothrombin Time 25.4 Seconds (9.0-12.0)
[2021-06-28] MEDS: metroNIDAZOLE 500 MG TAB PO SCH ×3 (08:20→21:01)
[2021-06-28] MEDS: METOPROLOL SUCC 25MG EXT REL TAB PO SCH ×2 (08:20→21:09)
[2021-06-28] MEDS: SENNA 8.6 MG TAB PO PRN (08:21)
[2021-06-28] MEDS: ASPIRIN 81 MG ECTAB PO SCH (08:22)
[2021-06-28] MEDS: ISOSORBIDE MONO EXTENDED REL 60 MG TABCR PO SCH (08:22)
[2021-06-28] MEDS: amLODIPine BESYLATE 5 MG TAB PO SCH (08:22)
[2021-06-28] MEDS: CHOLECALCIFEROL 1,000 UNITS 25 MCG TAB PO SCH (08:22)
[2021-06-28] MEDS: ACETAMINOPHEN 325 MG TAB PO PRN ×3 (08:26→21:03)
[2021-06-28] MEDS ORDERED: INSULIN GLARGINE SOLOSTAR 100 UNITS/ML 3 ML PEN SC SCH (09:00)
--- NOTE | 2021-06-28 10:52 | Hospitalist Progress Note ---
Date of Service June 28, 2021 Assessment & Plan (1) Sepsis: (2) Fall: (3) Cellulitis: (4) MAULIK (acute kidney injury): Plan: Patient did meet SIRS c on admission with leukocytosis, respiratory rate 25. Possible severe sepsis considering lactate of 4.6 on admission and MAULIK. Patient got IV fluids. Elevated lactic acid resolved. MAULIK is resolved. It is unclear source of possible infection at this time considering chest x-ray is unremarkable, UA is negative for nitrite or esterase. Possibilities include GI source considering gallbladder ultrasound showing sludge but no signs of cholecystitis, normal CBD. LFTs only notable for total bilirubin of 2.3 and mildly elevated AST at 85. Procalcitonin was elevated at 1.46. Patient was started on meropenem and vancomycin. MRSA negative Deescalated to cefepime and flagyl Blood and urine cultures currently negative Wound care for excoriations on leg PT/OT eval noted Will need SNF Lidocaine patch and tylenol prn for low back pain Review of scans did not show acute fracture (5) S/P CABG x 1: (6) S/P coronary artery stent placement: (7) Sinus node dysfunction: (8) Pacemaker: (9) CAD (coronary artery disease): (10) HTN (hypertension): (11) Paroxysmal atrial fibrillation: Plan: Continue statin and metoprolol succinate Continue warfarin. Monitor INR. Resume home lasix tomorrow and monitor BP poorly controlled today. Continue amlodipine. Resume losartan at half home dose and monitor (12) DM type 2 (diabetes mellitus, type 2): Plan: HbA1c 9 ISS and lantus per protocol Glycemic pharm on board Son reported patient's BG has been running high in the evenings at home and thinks this might be contributing to his falls He reports the nurse assistants give him his med Will make adjustments on dc depending on his insulin requirement Called son and updated him Admission and Anticipated Discharge Date Admission Date: June 27, 2021 Subjective Patient seen and exam Denies cough today Denied any chest pain, shortness of breath Denied any nausea, vomiting, diarrhea, abd pain Denied any fevers or chills Reports low back pain Physical Exam Constitutional: + well hydrated; no acute distress Eyes: PERRL, conjunctivae normal, anicteric sclerae ENMT: external ear and nose normal, oropharynx normal Respiratory: normal respiratory effort, lungs clear to auscultation Cardiovascular: Rate/Rhythm: regular rate and regular rhythm S1 S2 Gastrointestinal (Abdomen): normal bowel sounds, soft, nontender, no hepatosplenomegaly Musculoskeletal: Bruises and excoriations over dorsal surfaces of toes with some erythema/no drainage; in both feet (L>R) Neurologic: PERRL, EOMI, accommodation nl, no face palsy, no dysarthria Psychiatric: Alert and oriented to person and place. Euthymic affect Results & Data Results & Data ([facility]) Vital Signs (Past 12 Hours) Vital Signs Temp Pulse Pulse Resp BP Pulse Ox 06/28/21 08:00 35.7 C L 66 18 181/107 H 96 06/28/21 07:44 65 06/28/21 04:07 36.4 C L 60 18 167/90 H 96 06/27/21 23:40 36.5 C 64 18 149/74 H 95 06/27/21 23:07 65 Laboratory Results Abnormal lab results 06/27/21 06/27/21 06/27/21 Range/Units 13:53 14:10 16:55 WBC (4.8-10.8) K/uL RBC (4.7-6.1) M/uL Hgb (14.0-18.0) g/dL Hct (42-52) % RDW Std Deviation (36.4-46.3) fL RDW Coeff of Trevon (11.5-14.5) % MPV (7.4-10.4) fL Absolute Nucleated RBC (0-0) K/uL PT (9.0-12.0) Seconds INR (0.9-1.1) Chloride (98-107) mmol/L BUN (6-23) mg/dl BUN/Creatinine Ratio (10-20) POC Glucose 228 H 200 H (70-99) mg/dl Calcium (8.5-10.1) mg/dl Total Bilirubin (0.2-1.0) mg/dl AST (13-39) U/L Troponin I 0.14 H* (0-0.04) ng/ml Albumin (3.4-5.0) gm/dl 06/28/21 06/28/21 06/28/21 Range/Units 06:30 06:30 06:30 WBC 14.24 H (4.8-10.8) K/uL RBC 3.67 L (4.7-6.1) M/uL Hgb 11.4 L (14.0-18.0) g/dL Hct 34.6 L (42-52) % RDW Std Deviation 54.0 H (36.4-46.3) fL RDW Coeff of Trevon 15.7 H (11.5-14.5) % MPV 10.9 H (7.4-10.4) fL Absolute Nucleated RBC 0.04 H (0-0) K/uL PT 25.4 H (9.0-12.0) Seconds INR 2.7 H (0.9-1.1) Chloride 112 H (98-107) mmol/L BUN 26 H (6-23) mg/dl BUN/Creatinine Ratio 23.9 H (10-20) POC Glucose (70-99) mg/dl Calcium 8.2 L (8.5-10.1) mg/dl Total Bilirubin 1.5 H (0.2-1.0) mg/dl AST 86 H (13-39) U/L Troponin I (0-0.04) ng/ml Albumin 3.0 L (3.4-5.0) gm/dl 06/28/21 06/28/21 Range/Units 07:32 11:25 WBC (4.8-10.8) K/uL RBC (4.7-6.1) M/uL Hgb (14.0-18.0) g/dL Hct (42-52) % RDW Std Deviation (36.4-46.3) fL RDW Coeff of Trevon (11.5-14.5) % MPV (7.4-10.4) fL Absolute Nucleated RBC (0-0) K/uL PT (9.0-12.0) Seconds INR (0.9-1.1) Chloride (98-107) mmol/L BUN (6-23) mg/dl BUN/Creatinine Ratio (10-20) POC Glucose 115 H 139 H (70-99) mg/dl Calcium (8.5-10.1) mg/dl Total Bilirubin (0.2-1.0) mg/dl AST (13-39) U/L Troponin I (0-0.04) ng/ml Albumin (3.4-5.0) gm/dl (1) Cellulitis Laterality: left Site of cellulitis: extremity Site of cellulitis of ex tremity: lower extremity Qualified Code(s): L03.116 - Cellulitis of left lower limb (2) Sepsis Sepsis acute organ dysfunction status: unspecified Sepsis type: sepsis due to unspecified organism Qualified Code(s): A41.9 - Sepsis, unspecified organism (3) Fall Encounter type: initial encounter Qualified Code(s): W19.XXXA - Unspecified fall, initial encounter
[2021-06-28] MEDS: LIDOCAINE 5% 1 PATCH TD SCH (11:28)
--- NOTE | 2021-06-28 13:12 | Pharmacy Report ---
Pharmacy Glycemic Short Note 2 - Date of Service June 28, 2021 - Glycemic Short BSG Results (Last 24 hours): 06/27/21 06/27/21 06/27/21 14:10 16:55 20:18 Glucose POC Glucose 228 H 200 H 94 06/27/21 06/28/21 06/28/21 23:25 03:46 06:30 Glucose 92 POC Glucose 79 82 06/28/21 06/28/21 07:32 11:25 Glucose POC Glucose 115 H 139 H OUTPATIENT ANTIDIABETIC REGIMEN: * Lantus 16 units SC daily * HbA1c 9% (06/27/21) ASSESSMENT: 06/28 * BSGs trended down throughout the day yesterday, 278, 228, 200, and 94 mg/dL * Fasting BSG of 115 mg/dL this morning (with multiple BSGs overnight between 70-90 mg/dL) * Will change basal to BID dosing to allow for decreased dose of Lantus today if needed and will loosen Novolog parameters * Given age and comorbidities, prioritizing safety (limiting hypoglycemia) * Renal function now appears to be back at baseline 06/27 * BEN is an 86 year old male who presented to ED yesterday evening after a fall at assisted living facility * Admitted for altered mental status and sepsis secondary to currently unclear source * Currently receiving broad spectrum antibiotics (cefepime, metronidazole, and vancomycin) * MAULIK resolving, SCr 1.51 -> 1.15 mg/dL * Pharmacy consulted around lunchtime for BSG of 278 mg/dL, repeat BSG at 1410 is 228 mg/dL * Will hold off on insulin infusion given downtrend in BSGs * Patient already received home dose of basal insulin this morning, will plan on Lantus scale this evening to potentially provide increased dose of basal insulin + Novolog q4h overnight in case dosing inadequate PLAN FOR INPATIENT GLYCEMIC CONTROL: * Basal insulin - BID * Lantus 8 units SC x 1 this morning * Lantus 0-8 units SC HS (see EHR for details) * Bolus insulin - loosen * NovoLog per scale ACHS or Q6hrs while NPO * Goal Range: Low 120 mg/dL - High 160 mg/dL * Correction Factor: 35 mg/dL/unit * Nutritional / Prandial insulin per carb ratio of 1 unit per 12 grams CHO consumed PLAN FOR DISCHARGE: * tbd
[2021-06-28] MEDS ORDERED: LOSARTAN POTASSIUM 25 MG TAB PO ONE (14:45)
[2021-06-28] MEDS ORDERED: FUROSEMIDE 40 MG TAB PO ONE (14:45)
[2021-06-28] MEDS: WARFARIN SOD 2.5 MG TAB PO SCH (16:57)
[2021-06-28] MEDS: PANTOprazole 40 MG TAB PO SCH (21:01)
[2021-06-28] MEDS: ATORVASTATIN 40 MG TAB PO SCH (21:02)
[2021-06-28] MEDS: INSULIN GLARGINE SOLOSTAR 100 UNITS/ML 3 ML PEN SC SCH (21:02)
[2021-06-29] MEDS: CEFEPIME 2,000 MG in SYRINGE 0 ML IV SCH ×3 (02:52→17:03)
[2021-06-29 07:49] LABS: Hematocrit (blood only) 36.1 % (42-52); Hemoglobin 11.9 g/dL (14.0-18.0); Mean Platelet Volume 11.5 fL (7.4-10.4); Nucleated RBC # (auto) 0.03 K/uL (0-0); Nucleated RBC % (auto) 0.2 %; Platelet Count 170 K/uL (130-400); RDW Coefficient of Variation 15.9 % (11.5-14.5); RDW Standard Deviation 54.3 fL (36.4-46.3); Red Blood Count 3.84 M/uL (4.7-6.1); White Blood Count 12.92 K/uL (4.8-10.8)
[2021-06-29 08:08] LABS: INR 4.2 (0.9-1.1); Prothrombin Time 38.2 Seconds (9.0-12.0)
[2021-06-29] MEDS: INSULIN ASPART PER UNIT SC SCH ×4 (08:23→20:42)
[2021-06-29] MEDS: LOSARTAN POTASSIUM 25 MG TAB PO SCH (08:26)
[2021-06-29] MEDS: ASPIRIN 81 MG ECTAB PO SCH (08:26)
[2021-06-29] MEDS: ISOSORBIDE MONO EXTENDED REL 60 MG TABCR PO SCH (08:26)
[2021-06-29] MEDS: amLODIPine BESYLATE 5 MG TAB PO SCH (08:26)
[2021-06-29] MEDS: METOPROLOL SUCC 25MG EXT REL TAB PO SCH ×2 (08:26→20:37)
[2021-06-29] MEDS: CHOLECALCIFEROL 1,000 UNITS 25 MCG TAB PO SCH (08:26)
[2021-06-29] MEDS: metroNIDAZOLE 500 MG TAB PO SCH ×3 (08:27→20:37)
[2021-06-29] MEDS: SENNA 8.6 MG TAB PO PRN (08:27)
[2021-06-29] MEDS: LIDOCAINE 5% 1 PATCH TD SCH (08:29)
[2021-06-29] MEDS: ACETAMINOPHEN 325 MG TAB PO PRN ×3 (08:30→20:37)
[2021-06-29] MEDS: INSULIN GLARGINE SOLOSTAR 100 UNITS/ML 3 ML PEN SC SCH ×2 (08:37→20:43)
[2021-06-29] MEDS ORDERED: LOSARTAN POTASSIUM 50 MG TAB PO SCH (09:00)
[2021-06-29 09:04] LABS: Albumin Globulin Ratio 0.9 (0.9-2); Albumin Level 3.1 gm/dl (3.4-5.0); BUN Creatinine Ratio 24.4 (10-20); Bilirubin,Total 1.7 mg/dl (0.2-1.0); Calcium 8.3 mg/dl (8.5-10.1); Creatinine Clr Calc Pharmacy 70.7 ml/min; Est GFR (African American) 89.3 ml/min; Est GFR (Non-African American) 77.1 ml/min; Globulin 3.6 gm/dl (2.5-4.0); Potassium 3.6 mmol/L (3.5-5.1); Total Protein 6.7 gm/dl (6.0-8.3)
--- NOTE | 2021-06-29 11:34 | Hospitalist Progress Note ---
Date of Service June 29, 2021 Assessment & Plan (1) Sepsis: (2) Fall: (3) Cellulitis: (4) MAULIK (acute kidney injury): Plan: Patient did meet SIRS c on admission with leukocytosis, respiratory rate 25. Possible severe sepsis considering lactate of 4.6 on admission and MAULIK. Patient got IV fluids. Elevated lactic acid resolved. MAULIK is resolved. It is unclear source of possible infection at this time considering chest x-ray is unremarkable, UA is negative for nitrite or esterase. Possibilities include GI source considering gallbladder ultrasound showing sludge but no signs of cholecystitis, normal CBD. LFTs only notable for total bilirubin of 2.3 and mildly elevated AST at 85. Procalcitonin was elevated at 1.46. Patient was started on meropenem and vancomycin. MRSA negative Deescalated to cefepime and flagyl Blood and urine cultures currently negative Continue wound care for excoriations on leg Review of scans did not show acute fracture PT/OT eval noted Continue Lidocaine patch and tylenol prn for low back pain (5) S/P CABG x 1: (6) S/P coronary artery stent placement: (7) Sinus node dysfunction: (8) Pacemaker: (9) CAD (coronary artery disease): (10) HTN (hypertension): (11) Paroxysmal atrial fibrillation: Plan: Continue statin and metoprolol succinate INR is supratherapeutic at 4.2 today Hold warfarin and monitor INR Continue home lasix Continue losartan at half home dose and monitor BP Continue amlodipine (12) DM type 2 (diabetes mellitus, type 2): Plan: HbA1c 9 ISS and lantus per protocol Glycemic pharm on board Son had reported patient's BG has been running high in the evenings at home and thinks this might be contributing to his falls He reports the nurse assistants give him his med Will make adjustments on dc depending on his insulin requirement Called patient's daughter in law who is a PA per son's request Per patient's daughter in law reports patient's metformin at the [facility] that was recently stopped and then his BG started going up Will need to resume this on discharge She also stated they will like patient to go to rehab Admission and Anticipated Discharge Date Admission Date: June 27, 2021 Subjective Patient seen and exam Denied cough, chest pain and shortness of breath Denied any nausea, vomiting, diarrhea, abd pain Denied any fevers or chills Reports low back pain is improved today Physical Exam Constitutional: + well hydrated; no acute distress Eyes: PERRL, conjunctivae normal, anicteric sclerae ENMT: external ear and nose normal, oropharynx normal Respiratory: normal respiratory effort, lungs clear to auscultation Cardiovascular: Rate/Rhythm: regular rate and regular rhythm S1 S2 Gastrointestinal (Abdomen): normal bowel sounds, soft, nontender, no hepatosplenomegaly Musculoskeletal: Bruises and excoriations over dorsal surfaces of toes with some erythema/no drainage; in both feet (L>R) Neurologic: PERRL, EOMI, accommodation nl, no face palsy, no dysarthria Alert and oriented to person and place only Results & Data Results & Data ([facility]) Vital Signs (Past 12 Hours) Vital Signs Temp Pulse Pulse Resp BP Pulse Ox 06/29/21 08:08 36.4 C L 59 L 18 164/88 H 96 06/29/21 07:39 64 06/29/21 03:16 36.3 C L 63 16 167/86 H 97 Laboratory Results Abnormal lab results 06/28/21 06/28/21 06/29/21 Range/Units 16:43 19:55 06:42 WBC 12.92 H (4.8-10.8) K/uL RBC 3.84 L (4.7-6.1) M/uL Hgb 11.9 L (14.0-18.0) g/dL Hct 36.1 L (42-52) % RDW Std Deviation 54.3 H (36.4-46.3) fL RDW Coeff of Trevon 15.9 H (11.5-14.5) % MPV 11.5 H (7.4-10.4) fL Absolute Nucleated RBC 0.03 H (0-0) K/uL PT (9.0-12.0) Seconds INR (0.9-1.1) BUN/Creatinine Ratio (10-20) Glucose (70-99(Fasting)) mg/dl POC Glucose 159 H 152 H (70-99) mg/dl Calcium (8.5-10.1) mg/dl Total Bilirubin (0.2-1.0) mg/dl AST (13-39) U/L Albumin (3.4-5.0) gm/dl 02/12/1106/29/21 06/29/21 Range/Units 06:42 07:35 08:30 WBC (4.8-10.8) K/uL RBC (4.7-6.1) M/uL Hgb (14.0-18.0) g/dL Hct (42-52) % RDW Std Deviation (36.4-46.3) fL RDW Coeff of Trevon (11.5-14.5) % MPV (7.4-10.4) fL Absolute Nucleated RBC (0-0) K/uL PT 38.2 H (9.0-12.0) Seconds INR 4.2 H (0.9-1.1) BUN/Creatinine Ratio 24.4 H (10-20) Glucose 189 H (70-99(Fasting)) mg/dl POC Glucose 151 H (70-99) mg/dl Calcium 8.3 L (8.5-10.1) mg/dl Total Bilirubin 1.7 H (0.2-1.0) mg/dl AST 71 H (13-39) U/L Albumin 3.1 L (3.4-5.0) gm/dl 06/29/21 Range/Units 11:42 WBC (4.8-10.8) K/uL RBC (4.7-6.1) M/uL Hgb (14.0-18.0) g/dL Hct (42-52) % RDW Std Deviation (36.4-46.3) fL RDW Coeff of Trevon (11.5-14.5) % MPV (7.4-10.4) fL Absolute Nucleated RBC (0-0) K/uL PT (9.0-12.0) Seconds INR (0.9-1.1) BUN/Creatinine Ratio (10-20) Glucose (70-99(Fasting)) mg/dl POC Glucose 212 H (70-99) mg/dl Calcium (8.5-10.1) mg/dl Total Bilirubin (0.2-1.0) mg/dl AST (13-39) U/L Albumin (3.4-5.0) gm/dl (1) Sepsis Sepsis acute organ dysfunction status: unspecified Sepsis type: sepsis due to unspecified organism Qualified Code(s): A41.9 - Sepsis, unspecified organism (2) Fall Encounter type: initial encounter Qualified Code(s): W19.XXXA - Unspecified fall, initial encounter (3) Cellulitis Laterality: left Site of cellulitis: extremity Site of cellulitis of extremity: lower extremity Qualified Code(s): L03.116 - Cellulitis of left lower limb
[2021-06-29] MEDS ORDERED: SENNA 8.6 MG TAB PO PRN (11:45)
[2021-06-29] MEDS: ATORVASTATIN 40 MG TAB PO SCH (20:37)
[2021-06-29] MEDS: PANTOprazole 40 MG TAB PO SCH (20:38)
[2021-06-30] MEDS: CEFEPIME 2,000 MG in SYRINGE 0 ML IV SCH ×3 (02:02→17:03)
[2021-06-30 07:24] LABS: Hematocrit (blood only) 36.6 % (42-52); Mean Corpuscular Hemoglobin 30.7 pg (25-34); Mean Corpuscular Hgb Conc 32.8 g/dL (32-36); Mean Corpuscular Volume 93.6 fL (80-100); Mean Platelet Volume 10.8 fL (7.4-10.4); Nucleated RBC # (auto) 0.07 K/uL (0-0); Nucleated RBC % (auto) 0.5 %; Platelet Count 195 K/uL (130-400); RDW Standard Deviation 54.1 fL (36.4-46.3); Red Blood Count 3.91 M/uL (4.7-6.1); White Blood Count 12.76 K/uL (4.8-10.8)
[2021-06-30 07:43] LABS: INR 3.9 (0.9-1.1); Prothrombin Time 35.9 Seconds (9.0-12.0)
[2021-06-30 07:49] LABS: Albumin Globulin Ratio 0.8 (0.9-2); Albumin Level 3.2 gm/dl (3.4-5.0); BUN Creatinine Ratio 24.7 (10-20); Bilirubin,Total 1.5 mg/dl (0.2-1.0); Calcium 8.4 mg/dl (8.5-10.1); Creatinine Clr Calc Pharmacy 68.7 ml/min; Est GFR (African American) 85.9 ml/min; Est GFR (Non-African American) 74.1 ml/min; Globulin 3.8 gm/dl (2.5-4.0); Potassium 3.4 mmol/L (3.5-5.1)
[2021-06-30] MEDS: metroNIDAZOLE 500 MG TAB PO SCH ×3 (08:46→20:15)
[2021-06-30] MEDS: ASPIRIN 81 MG ECTAB PO SCH (08:46)
[2021-06-30] MEDS: amLODIPine BESYLATE 5 MG TAB PO SCH (08:46)
[2021-06-30] MEDS: LOSARTAN POTASSIUM 25 MG TAB PO SCH (08:47)
[2021-06-30] MEDS: LIDOCAINE 5% 1 PATCH TD SCH (08:47)
[2021-06-30] MEDS: CHOLECALCIFEROL 1,000 UNITS 25 MCG TAB PO SCH (08:47)
[2021-06-30] MEDS: ISOSORBIDE MONO EXTENDED REL 60 MG TABCR PO SCH (08:47)
[2021-06-30] MEDS: METOPROLOL SUCC 25MG EXT REL TAB PO SCH ×2 (08:47→20:15)
[2021-06-30] MEDS: INSULIN GLARGINE SOLOSTAR 100 UNITS/ML 3 ML PEN SC SCH ×2 (08:48→20:29)
[2021-06-30] MEDS: INSULIN ASPART PER UNIT SC SCH ×4 (08:51→20:29)
[2021-06-30] MEDS: ACETAMINOPHEN 325 MG TAB PO PRN (08:54)
[2021-06-30] MEDS ORDERED: POTASSIUM CHLORIDE CRTAB 20 MEQ TABCR PO STA (09:31)
--- NOTE | 2021-06-30 10:55 | Hospitalist Progress Note ---
Date of Service June 30, 2021 Assessment & Plan (1) Sepsis: (2) Fall: (3) Cellulitis: (4) MAULIK (acute kidney injury): Plan: Patient did meet SIRS c on admission with leukocytosis, respiratory rate 25. Possible severe sepsis considering lactate of 4.6 on admission and MAULIK. Patient got IV fluids. Elevated lactic acid resolved. MAULIK is resolved. It is unclear source of possible infection at this time considering chest x-ray is unremarkable, UA is negative for nitrite or esterase. Possibilities include GI source considering gallbladder ultrasound showing sludge but no signs of cholecystitis, normal CBD. LFTs only notable for total bilirubin of 2.3 and mildly elevated AST at 85. Procalcitonin was elevated at 1.46. Patient was started on meropenem and vancomycin. MRSA negative Deescalated to cefepime and flagyl Blood and urine cultures remain negative. If still negative by tomorrow, will stop Abx after day 5 tomorrow Continue wound care for excoriations on leg Review of scans did not show acute fracture Continue Lidocaine patch and tylenol prn for low back pain (5) S/P CABG x 1: (6) S/P coronary artery stent placement: (7) Sinus node dysfunction: (8) Pacemaker: (9) CAD (coronary artery disease): (10) HTN (hypertension): (11) Paroxysmal atrial fibrillation: Plan: Continue statin and metoprolol succinate INR is supratherapeutic at 3.9 today Hold warfarin and monitor INR Continue home lasix Continue amlodipine Resume full home dose of losartan (12) DM type 2 (diabetes mellitus, type 2): Plan: HbA1c 9 ISS and lantus per protocol Glycemic pharm on board Son had reported patient's BG has been running high in the evenings at home and thinks this might be contributing to his falls He reports the nurse assistants give him his med Will make adjustments on dc depending on his insulin requirement On 06/29/21, I called patient's [id number] who is a PA per son's request Per patient's daughter in law reports patient's metformin at the [place] that was recently stopped and then his BG started going up Will need to resume this on discharge CM working on rehab placement Possible dc to rehab tomorrow Admission and Anticipated Discharge Date Admission Date: June 27, 2021 Subjective Patient seen and exam Denied cough, chest pain and shortness of breath Denied any nausea, vomiting, diarrhea, abd pain Denied any fevers or chills Reports low back pain and pain in the knees Physical Exam Constitutional: + well hydrated; no acute distress Eyes: PERRL, conjunctivae normal, anicteric sclerae ENMT: external ear and nose normal, oropharynx normal Respiratory: normal respiratory effort, lungs clear to auscultation Cardiovascular: Rate/Rhythm: regular rate and regular rhythm S1 S2 Gastrointestinal (Abdomen): normal bowel sounds, soft, nontender, no hepatosplenomegaly Musculoskeletal: Bruises on knees Bruises and excoriations over dorsal surfaces of toes with some erythema/no drainage; in both feet (L>R) Neurologic: PERRL, EOMI, accommodation nl, no face palsy, no dysarthria Psychiatric: Alert and oriented to person and place only Results & Data Results & Data ([facility]) Vital Signs (Past 12 Hours) Vital Signs Temp Pulse Pulse Resp BP BP Pulse Ox 06/30/21 08:00 36.6 C 74 18 149/78 H 98 06/30/21 04:12 36.5 C 61 18 153/80 H 96 06/29/21 23:59 63 06/29/21 23:37 36.6 C 62 18 151/76 H 92 Laboratory Results Abnormal lab results 06/29/21 06/30/21 06/30/21 Range/Units 20:06 07:06 07:06 WBC 12.76 H (4.8-10.8) K/uL RBC 3.91 L (4.7-6.1) M/uL Hgb 12.0 L (14.0-18.0) g/dL Hct 36.6 L (42-52) % RDW Std Deviation 54.1 H (36.4-46.3) fL RDW Coeff of Trevon 16.0 H (11.5-14.5) % MPV 10.8 H (7.4-10.4) fL Absolute Nucleated RBC 0.07 H (0-0) K/uL PT (9.0-12.0) Seconds INR (0.9-1.1) Potassium 3.4 L (3.5-5.1) mmol/L BUN/Creatinine Ratio 24.7 H (10-20) Glucose 150 H (70-99(Fasting)) mg/dl POC Glucose 160 H (70-99) mg/dl Calcium 8.4 L (8.5-10.1) mg/dl Total Bilirubin 1.5 H (0.2-1.0) mg/dl AST 56 H (13-39) U/L Albumin 3.2 L (3.4-5.0) gm/dl Albumin/Globulin Ratio 0.8 L (0.9-2) 06/30/21 06/30/21 06/30/21 Range/Units 07:06 07:11 11:06 WBC (4.8-10.8) K/uL RBC (4.7-6.1) M/uL Hgb (14.0-18.0) g/dL Hct (42-52) % RDW Std Deviation (36.4-46.3) fL RDW Coeff of Trevon (11.5-14.5) % MPV (7.4-10.4) fL Absolute Nucleated RBC (0-0) K/uL PT 35.9 H (9.0-12.0) Seconds INR 3.9 H (0.9-1.1) Potassium (3.5-5.1) mmol/L BUN/Creatinine Ratio (10-20) Glucose (70-99(Fasting)) mg/dl POC Glucose 150 H 215 H (70-99) mg/dl Calcium (8.5-10.1) mg/dl Total Bilirubin (0.2-1.0) mg/dl AST (13-39) U/L Albumin (3.4-5.0) gm/dl Albumin/Globulin Ratio (0.9-2) 06/30/21 Range/Units 16:17 WBC (4.8-10.8) K/uL RBC (4.7-6.1) M/uL Hgb (14.0-18.0) g/dL Hct (42-52) % RDW Std Deviation (36.4-46.3) fL RDW Coeff of Trevon (11.5-14.5) % MPV (7.4-10.4) fL Absolute Nucleated RBC (0-0) K/uL PT (9.0-12.0) Seconds INR (0.9-1.1) Potassium (3.5-5.1) mmol/L BUN/Creatinine Ratio (10-20) Glucose (70-99(Fasting)) mg/dl POC Glucose 125 H (70-99) mg/dl Calcium (8.5-10.1) mg/dl Total Bilirubin (0.2-1.0) mg/dl AST (13-39) U/L Albumin (3.4-5.0) gm/dl Albumin/Globulin Ratio (0.9-2) (1) Cellulitis Laterality: left Site of cellulitis: extremity Site of cellulitis of extremity: lower extremity Qualified Code(s): L03.116 - Cellulitis of left lower limb (2) Sepsis Sepsis acute organ dysfunction status: unspecified Sepsis type: sepsis due to unspecified organism Qualified Code(s): A41.9 - Sepsis, unspecified organism (3) Fall Encounter type: initial encounter Qualified Code(s): W19.XXXA - Unspecified fall, initial encounter
[2021-06-30] MEDS: ATORVASTATIN 40 MG TAB PO SCH (20:16)
[2021-06-30] MEDS: PANTOprazole 40 MG TAB PO SCH (20:16)
[2021-07-01] MEDS: CEFEPIME 2,000 MG in SYRINGE 0 ML IV SCH ×3 (01:18→17:12)
[2021-07-01] MEDS: ACETAMINOPHEN 325 MG TAB PO PRN (06:25)
[2021-07-01] MEDS ORDERED: oxyCODONE HCL IR 5 MG TAB (IMMEDIATE RELEASE) PO STA (06:46)
[2021-07-01] MEDS: ISOSORBIDE MONO EXTENDED REL 60 MG TABCR PO SCH (07:20)
[2021-07-01] MEDS: CHOLECALCIFEROL 1,000 UNITS 25 MCG TAB PO SCH (07:20)
[2021-07-01] MEDS: ASPIRIN 81 MG ECTAB PO SCH (07:20)
[2021-07-01] MEDS: LOSARTAN POTASSIUM 50 MG TAB PO SCH (07:21)
[2021-07-01] MEDS: metroNIDAZOLE 500 MG TAB PO SCH ×3 (07:22→21:03)
[2021-07-01] MEDS: amLODIPine BESYLATE 5 MG TAB PO SCH (07:22)
[2021-07-01] MEDS: METOPROLOL SUCC 25MG EXT REL TAB PO SCH ×2 (07:23→21:02)
[2021-07-01] MEDS: LIDOCAINE 5% 1 PATCH TD SCH (07:23)
[2021-07-01 07:26] LABS: Hematocrit (blood only) 36.7 % (42-52); Hemoglobin 11.9 g/dL (14.0-18.0); Mean Corpuscular Hemoglobin 30.3 pg (25-34); Mean Corpuscular Hgb Conc 32.4 g/dL (32-36); Mean Corpuscular Volume 93.4 fL (80-100); Nucleated RBC # (auto) 0.05 K/uL (0-0); Nucleated RBC % (auto) 0.4 %; Platelet Count 247 K/uL (130-400); RDW Standard Deviation 54.6 fL (36.4-46.3); Red Blood Count 3.93 M/uL (4.7-6.1); White Blood Count 12.59 K/uL (4.8-10.8)
[2021-07-01 07:48] LABS: Albumin Globulin Ratio 0.8 (0.9-2); Albumin Level 3.1 gm/dl (3.4-5.0); BUN Creatinine Ratio 24.2 (10-20); Bilirubin,Total 1.4 mg/dl (0.2-1.0); Calcium 8.6 mg/dl (8.5-10.1); Creatinine Clr Calc Pharmacy 70.2 ml/min; Est GFR (African American) 88.1 ml/min; Globulin 3.9 gm/dl (2.5-4.0); Potassium 3.6 mmol/L (3.5-5.1)
[2021-07-01] MEDS: INSULIN ASPART PER UNIT SC SCH ×4 (08:09→21:21)
[2021-07-01] MEDS: INSULIN GLARGINE SOLOSTAR 100 UNITS/ML 3 ML PEN SC SCH ×2 (08:10→21:01)
[2021-07-01 08:12] LABS: INR 3.5 (0.9-1.1); Prothrombin Time 32.2 Seconds (9.0-12.0)
--- NOTE | 2021-07-01 12:10 | Pharmacy Report ---
Pharmacy Glycemic Short Note 2 - Date of Service July 01, 2021 - Glycemic Short BSG Results (Last 24 hours): 06/30/21 06/30/21 07/01/21 16:17 20:10 07:13 Glucose 143 H POC Glucose 125 H 173 H 07/01/21 07/01/21 07:22 11:55 Glucose POC Glucose 140 H 228 H OUTPATIENT ANTIDIABETIC REGIMEN: * Lantus 16 units SC daily * HbA1c 9% (06/27/21) ASSESSMENT: 06/29 * BSGs yesterday of 150, 215, 125, and 173 mg/dL, fasting BSG of 140 mg/dL this morning * Received 16 units of basal and 11 units of prandial/correctional bolus insulin * Novolog tightened yesterday, will continue and tighten AM parameters tomorrow morning 06/28 * BSGs trended down throughout the day yesterday, 278, 228, 200, and 94 mg/dL * Fasting BSG of 115 mg/dL this morning (with multiple BSGs overnight between 70-90 mg/dL) * Will change basal to BID dosing to allow for decreased dose of Lantus today if needed and will loosen Novolog parameters * Given age and comorbidities, prioritizing safety (limiting hypoglycemia) * Renal function now appears to be back at baseline 06/27 * AH is an 86 year old male who presented to ED yesterday evening after a fall at assisted living facility * Admitted for altered mental status and sepsis secondary to currently unclear source * Currently receiving broad spectrum antibiotics (cefepime, metronidazole, and vancomycin) * MAULIK resolving, SCr 1.51 -> 1.15 mg/dL * Pharmacy consulted around lunchtime for BSG of 278 mg/dL, repeat BSG at 1410 is 228 mg/dL * Will hold off on insulin infusion given downtrend in BSGs * Patient already received home dose of basal insulin this morning, will plan on Lantus scale this evening to potentially provide increased dose of basal insulin + Novolog q4h overnight in case dosing inadequate PLAN FOR INPATIENT GLYCEMIC CONTROL: * Basal insulin - * Lantus 8 units SC BID * Bolus insulin - loosen * NovoLog per scale ACHS or Q6hrs while NPO * Goal Range: Low 120 mg/dL - High 160 mg/dL * Correction Factor: 30 mg/dL/unit * Nutritional / Prandial insulin per carb ratio of 1 unit per 8 grams CHO consumed PLAN FOR DISCHARGE: * HbA1c of 9% is elevated, reasonable goal would be less than 8% in this patient based on age and comorbidities * Patient is a resident at [facility] who provides diabetes care * Continue current Lantus dose of 16 units SC daily * Suggest initiation of rapid-acting insulin (Novolog/Humalog) 3 units SC TIDM (hold if no/limited meal intake)
--- NOTE | 2021-07-01 14:10 | Hospitalist Progress Note ---
Date of Service July 01, 2021 Assessment & Plan (1) Sepsis: (2) Fall: (3) Cellulitis: (4) MAULIK (acute kidney injury): Plan: Possible Severe Sepsis Meets SIRS Lactic Acidosis--Resolved No clear source of Infection Received IV fluids Acute Kidney Injury--Resolved CXR: No acute cardiopulmonary disease Blood culture negative to date Urine culture negative Gall Bladder:Sludge within the gallbladder with no ultrasound evidence for cholecystitis. Normal common bile duct. Fatty liver. Limited evaluation of the pancreas. Procalcitonin 1.46. Initially on Meropenem and vancomycin MRSA negative Deescalated to cefepime and flagyl Continue wound care for excoriations on leg Will DC antibiotics (5) S/P CABG x 1: (6) S/P coronary artery stent placement: (7) Sinus node dysfunction: (8) Pacemaker: (9) CAD (coronary artery disease): (10) HTN (hypertension): (11) Paroxysmal atrial fibrillation: Plan: Continue statin, metoprolol succinate INR is supratherapeutic at 3.9>>>3.5 Resume Coumadin as able and adjust dose as needed Continue home lasix Continue amlodipine, losartan (12) DM type 2 (diabetes mellitus, type 2): Plan: As per Prior Provider HbA1c 9 ISS and lantus per protocol Glycemic pharm on board Son had reported patient's BG has been running high in the evenings at home and thinks this might be contributing to his falls He reports the nurse assistants give him his med Will make adjustments on dc depending on his insulin requirement On 06/29/21, I called patient's [id number] who is a PA per son's request Per patient's daughter in law reports patient's metformin at the [place] that was recently stopped and then his BG started going up Will need to resume this on discharge Cognitive Disorder: As per Records Mental status seemed to be at baseline Currently no psych consult indicated Code Status Full Code DVT Px: on Warfarin--on hold INR: 3.5 Disposition Rehab placement Admission and Anticipated Discharge Date Admission Date: June 27, 2021 Subjective Patient is seen and examined at bedside Patient states having trouble walking Otherwise no complaints Denies any chest pain, shortness of breath, dizziness, nausea, abdominal pain Plan to be discharged to rehab facility today Review of Systems Review of Systems: All systems reviewed & are unremarkable except as noted in Subjective Physical Exam Physical Exam: Physical Exam: Vitals signs as noted above General Appearance:Moderately built and nourished, no apparent distress Head: normocephalic, Atraumatic Eyes: normal inspection, EOMI Neck: supple, Trachea midline Respiratory/Chest: Normal breath sounds, CTA, No accessory muscle use Cardiovascular: S1, S2, No murmur Abdomen/GI:Soft, Non tender, Bowel sounds present Extremities/Musculoskeletal:normal inspection,+ B/L LE bruises, excoriations Neurologic/Psych:grossly no focal neurological deficits Skin: normal color, warm Results & Data Results & Data ([facility]) Vital Signs (Past 12 Hours) Vital Signs Temp Pulse Resp BP BP Pulse Ox 07/01/21 07:16 36.5 C 61 18 166/83 H 95 07/01/21 03:57 36.3 C L 67 18 157/82 H 93 Laboratory Results Short CBC 07/01/21 Range/Units 07:13 WBC 12.59 H (4.8-10.8) K/uL Hgb 11.9 L (14.0-18.0) g/dL Hct 36.7 L (42-52) % Plt Count 247 (130-400) K/uL BMP 07/01/21 07:13 Sodium 139 Potassium 3.6 Chloride 107 Carbon Dioxide 24 BUN 22 Creatinine 0.91 Glucose 143 H Calcium 8.6 Liver Function 07/01/21 Range/Units 07:13 Total Bilirubin 1.4 H (0.2-1.0) mg/dl AST 48 H (13-39) U/L ALT 35 (7-52) U/L Alkaline Phosphatase 103 (34-104) U/L Albumin 3.1 L (3.4-5.0) gm/dl (1) Sepsis Sepsis acute organ dysfunction status: unspecified Sepsis type: sepsis due to unspecified organism Qualified Code(s): A41.9 - Sepsis, unspecified organism (2) Fall Encounter type: initial encounter Qualified Code(s): W19.XXXA - Unspecified fall, initial encounter (3) Cellulitis Laterality: left Site of cellulitis: extremity Site of cellulitis of extremity: lower extremity Qualified Code(s): L03.116 - Cellulitis of left lower limb
[2021-07-01] MEDS: ATORVASTATIN 40 MG TAB PO SCH (21:00)
[2021-07-01] MEDS: PANTOprazole 40 MG TAB PO SCH (21:03)
[2021-07-02] MEDS: CEFEPIME 2,000 MG in SYRINGE 0 ML IV SCH ×2 (01:18→10:37)
[2021-07-02 07:22] LABS: INR 3.7 (0.9-1.1); Prothrombin Time 34.1 Seconds (9.0-12.0)
[2021-07-02] MEDS ORDERED: INSULIN ASPART PER UNIT SC SCH (07:30)
[2021-07-02] MEDS: INSULIN ASPART PER UNIT SC SCH (07:44)
[2021-07-02] MEDS: LOSARTAN POTASSIUM 50 MG TAB PO SCH (08:28)
[2021-07-02] MEDS: amLODIPine BESYLATE 5 MG TAB PO SCH (08:28)
[2021-07-02] MEDS: ISOSORBIDE MONO EXTENDED REL 60 MG TABCR PO SCH (08:28)
[2021-07-02] MEDS: CHOLECALCIFEROL 1,000 UNITS 25 MCG TAB PO SCH (08:28)
[2021-07-02] MEDS: ASPIRIN 81 MG ECTAB PO SCH (08:28)
[2021-07-02] MEDS: LIDOCAINE 5% 1 PATCH TD SCH (08:29)
[2021-07-02] MEDS: METOPROLOL SUCC 25MG EXT REL TAB PO SCH (08:29)
[2021-07-02] MEDS: metroNIDAZOLE 500 MG TAB PO SCH (08:29)
[2021-07-02] MEDS: INSULIN GLARGINE SOLOSTAR 100 UNITS/ML 3 ML PEN SC SCH (08:30)
--- NOTE | 2021-07-02 09:31 | Hospitalist Progress Note ---
Date of Service July 02, 2021 Assessment & Plan (1) Sepsis: (2) Fall: (3) Cellulitis: (4) MAULIK (acute kidney injury): Plan: Possible Severe Sepsis Meets SIRS Lactic Acidosis--Resolved No clear source of Infection Received IV fluids Acute Kidney Injury--Resolved CXR: No acute cardiopulmonary disease Blood culture negative to date Urine culture negative Gall Bladder:Sludge within the gallbladder with no ultrasound evidence for cholecystitis. Normal common bile duct. Fatty liver. Limited evaluation of the pancreas. Procalcitonin 1.46. Initially on Meropenem and vancomycin MRSA negative Deescalated to cefepime and flagyl>> transition to doxycycline as outpatient Continue wound care for excoriations on leg Will DC IV antibiotics today (5) S/P CABG x 1: (6) S/P coronary artery stent placement: (7) Sinus node dysfunction: (8) Pacemaker: (9) CAD (coronary artery disease): (10) HTN (hypertension): (11) Paroxysmal atrial fibrillation: Plan: Continue statin, metoprolol succinate INR is supratherapeutic at 3.9>>>3.5>3.7 Resume Coumadin as able and adjust dose as needed Continue home lasix Continue amlodipine, losartan (12) DM type 2 (diabetes mellitus, type 2): Plan: As per Prior Provider HbA1c 9 ISS and lantus per protocol Glycemic pharm on board Son had reported patient's BG has been running high in the evenings at home and thinks this might be contributing to his falls He reports the nurse assistants give him his med Will make adjustments on dc depending on his insulin requirement On 06/29/21, I called patient's [id number]-[id number] who is a PA per son's request Per patient's daughter in law reports patient's metformin at the [place] that was recently stopped and then his BG started going up Will need to resume this on discharge Cognitive Disorder: As per Records Mental status seemed to be at baseline Currently no psych consult indicated Code Status Full Code DVT Px: on Warfarin--on hold INR: 3.7 Disposition Rehab placement today Admission and Anticipated Discharge Date Admission Date: June 27, 2021 Subjective Patient is seen and examined at bedside States having some back discomfort Was having dressing change for his foot wounds during my encounter Offers no other complaints Denies any chest pain, shortness of breath, dizziness, nausea, abdominal pain Plan to be discharged to rehab facility today Review of Systems Review of Systems: All systems reviewed & are unremarkable except as noted in Subjective Physical Exam Physical Exam: Physical Exam: Vitals signs as noted above General Appearance:Moderately built and nourished, no apparent distress Head: normocephalic, Atraumatic Eyes: normal inspection, EOMI Neck: supple, Trachea midline Respiratory/Chest: Normal breath sounds, CTA, No accessory muscle use Cardiovascular: S1, S2, No murmur Abdomen/GI:Soft, Non tender, Bowel sounds present Extremities/Musculoskeletal:normal inspection,+ B/L LE bruises, excoriations Neurologic/Psych:grossly no focal neurological deficits Skin: normal color, warm Results & Data Results & Data ([facility]) Vital Signs (Past 12 Hours) Vital Signs Temp Pulse Resp BP Pulse Ox 07/02/21 07:41 36.9 C 84 18 164/86 H 97 07/02/21 03:02 36.6 C 65 16 162/79 H 93 07/01/21 22:37 37.0 C 60 16 156/91 H 98 (1) Cellulitis Laterality: left Site of cellulitis: extremity Site of cellulitis of extremity: lower extremity Qualified Code(s): L03.116 - Cellulitis of left low er limb (2) Sepsis Sepsis acute organ dysfunction status: unspecified Sepsis type: sepsis due to unspecified organism Qualified Code(s): A41.9 - Sepsis, unspecified organism (3) Fall Encounter type: initial encounter Qualified Code(s): W19.XXXA - Unspecified fall, initial encounter
--- NOTE | 2021-07-02 09:36 | Discharge Summary ---
Date of Service July 02, 2021 Admission HPI Per Admitting Provider CHIEF COMPLAINT: Altered mental status and sepsis. HISTORY OF PRESENT ILLNESS: This is an 86-year-old male with past medical history significant for type 2 diabetes, gout, hyperlipidemia, chronic rhinitis, sinus node dysfunction, paroxysmal atrial fibrillation, status post pacemaker, history of hypertension, chronic systolic CHF with EF of 50% in 2019 echo, cognitive disorder, CAD status post stent, status post CABG, history of splenectomy, history of pancreatic cancer, history of intracerebral hemorrhage. The patient currently lives at [facility]. Ambulates with a cane. Was brought in because of frequent falls and fever. The patient was recently in the ER with fall and thought to be possible pneumonia and started on doxycycline and send back, but today he was falling frequently and also having fever, mild cough, and as per the assisted they noticed knee swelling since last Tuesday, since then he is falling more frequently. He also scraped his toes and was brought in here. As per the assisted, he has dementia for recent memory, but remote memory is intact. He eats regular food and no nausea, vomiting, or diarrhea recently. The patient is alert and awake, hard of hearing. Denies any headache, denies any neck pain. Complains of back pain. No abdominal pain, no chest pain, no shortness of breath, no nausea. He has normal bowel and bladder movements. Hemodynamically stable, but his lactic acid initially when he came in was 4.6 and after fluids repeat is 2.6, glucose is 356. Received vancomycin and cefepime in the ER. Troponin 0.2. COVID is negative.As per assisted patient is fully vaccinated with a booster in March, with Moderna vaccine. Admission Exam Per Admitting Provider PHYSICAL EXAMINATION: GENERAL: The patient is old and frail, not in acute distress, hard of hearing. VITAL SIGNS: Temperature 36.9, pulse 64, respiratory rate 20, blood pressure 178/96, oxygen 93% on 2 liters, was 88% on room air. HEENT: Pupils equal, round and reactive to light. Oral mucosa dry. NECK: No JVD, no neck masses. CARDIOVASCULAR: S1 and S2 heard. Regular rate and rhythm. No murmur, no gallop. RESPIRATORY SYSTEM: Normal AP diameter. No accessory muscle use. No wheezing, no crackles. ABDOMEN: Soft, bowel sounds present, nontender, no distention. CENTRAL NERVOUS SYSTEM: Cranial nerves II through XII are grossly intact, nonfocal. EXTREMITIES: Right knee swelling, bruises in his toes. Principal Diagnosis Possible Severe Sepsis Acute metabolic encephalopathy Acute Kidney Injury Supratherapeutic INR Multiple Falls Discharge Data Allergies Allergy/AdvReac Type Severity Reaction Status Date / Time Penicillins Allergy Intermediate HIVES Verified 06/26/21 19:52 clopidogrel Allergy Mild INTERNAL Verified 06/26/21 19:52 HIVES Consultations 06/26/21 21:52 ED Decision to Admit Stat Ordered Studies 06/26/21 18:01 CT head/brain wo con Stat 06/26/21 18:49 US gallbladder Stat Diabetes Follow up Diabetes Follow-up Needed for HgbA1c >9% Hospital Course (1) Sepsis: (2) Fall: (3) Cellulitis: (4) MAULIK (acute kidney injury): Possible Severe Sepsis Meets SIRS Lactic Acidosis--Resolved No clear source of Infection Received IV fluids Acute Kidney Injury--Resolved CXR: No acute cardiopulmonary disease Blood culture negative to date Urine culture negative Gall Bladder:Sludge within the gallbladder with no ultrasound evidence for cholecystitis. Normal common bile duct. Fatty liver. Limited evaluation of the pancreas. Procalcitonin 1.46. Initially on Meropenem and vancomycin MRSA negative Deescalated to cefepime and flagyl>> transition to doxycycline as outpatient Continue wound care for excoriations on leg Will DC IV antibiotics today (5) S/P CABG x 1: (6) S/P coronary artery stent placement: (7) Sinus node dysfunction: (8) Pacemaker: (9) CAD (coronary artery disease): (10) HTN (hypertension): (11) Paroxysmal atrial fibrillation: Continue statin, metoprolol succinate INR is supratherapeutic at 3.9>>>3.5>3.7 Resume Coumadin as able and adjust dose as needed Continue home lasix Continue amlodipine, losartan (12) DM type 2 (diabetes mellitus, type 2): As per Prior Provider HbA1c 9 ISS and lantus per protocol Glycemic pharm on board Son had reported patient's BG has been running high in the evenings at home and thinks this might be contributing to his falls He reports the nurse assistants give him his med Will make adjustments on dc depending on his insulin requirement On 06/29/21, I called patient's [id number] who is a PA per son's request Per patient's daughter in law reports patient's metformin at the [place] that was recently stopped and then his BG started going up Will need to resume this on discharge Cognitive Disorder: As per Records Mental status seemed to be at baseline Currently no psych consult indicated Code Status Full Code DVT Px: on Warfarin--on hold INR: 3.7 Disposition Rehab placement today Total Time Total Time Spent Total Time Spent (In Minutes): 45 minutes Discharge Plan Discharge Items Patient Disposition: Transfer Inpatient Rehab Fac Reason For Visit: AMS Discharge Diagnosis: Possible Severe Sepsis Acute metabolic encephalopathy Acute Kidney Injury Supratherapeutic INR Multiple Falls Activity: Per Instructions section Exercise/Sports: Gradually increase as tolerated Non-emergency contact: Primary Care Provider Call non-emergency contact if: you have any medication questions, your symptoms worsen and your pain is concerning for you Follow-up/Referrals: [facility] [Primary Care Provider] - Diet: Carb Consistent or DM2 and Heart Healthy Diet Texture: Easy to Chew Addtl Attending Provider Instructions: Follow-up with your primary care physician in 1 week upon discharge from rehab facility. Your Target INR is 2.0 to 3.0 Your INR is 3.7 on 07/02/21 : HOLD COUMADIN TODAY ---Get PT/INR tomorrow 07/03/21 and discussed with your physician at rehab facility for further adjustment of your Coumadin dose as needed. Seek immediate medical attention if your symptoms reoccur or worsen Please take all medications as instructed on discharge list below. Please call if you have any questions or problems. You can reach a [facility] hospitalist on duty at [facility] 24 hours a day by calling [phone] Pending Studies at Discharge: No Stand-Alone Forms: My [facility] Skilled Items Patient informed of condition?: Yes DNR: No Discharge Level of Care: Acute rehab Communicable Disease: No Discharge Prognosis: Stable Lines: None Urinary Catheter: No Medications and DC Order Prescriptions: New insulin aspart U-100 [Novolog U-100 Insulin aspart] 100 unit/mL Solution 3 unit SC 1130,1630,2100 Qty: 10 RF: 0 Continued amlodipine 5 mg tablet 5 mg PO DAILY RF: 0 losartan 50 mg tablet 50 mg PO QAM RF: 0 atorvastatin 40 mg tablet 40 mg PO PM RF: 0 metoprolol succinate 50 mg tablet extended release 24 hr 50 mg PO BID RF: 0 warfarin 2.5 mg tablet 2.5 mg PO 5XWK RF: 0 aspirin 81 mg Tablet,Delayed Release (Dr/Ec) 81 mg PO QAM RF: 0 isosorbide mononitrate 60 mg tablet extended release 24 hr 60 mg PO QAM RF: 0 pantoprazole 40 mg tablet,delayed release (DR/EC) 40 mg PO PM RF: 0 cholecalciferol (vitamin D3) [Vitamin D3] 1,000 unit Capsule 1,000 unit PO QAM RF: 0 Lantus Solostar U-100 Insulin 100 unit/mL (3 mL) insulin pen 16 units subcut DAILY RF: 0 polyethylene glycol 3350 17 gram Powder In Packet 17 g PO BID PRN (Reason: Constipation) RF: 0 nitroglycerin [Nitrostat] 0.4 mg Tablet, Sublingual 0.4 mg sublingual UD PRN (Reason: Chest Pain) RF: 0 calcium carbonate [Antacid Ext Str (calcium carb)] 300 mg (750 mg) Tablet,Chewable 1,500 mg PO TID PRN (Reason: Indigestion) RF: 0 clindamycin HCl 300 mg capsule 600 mg PO ONCE PRN (Reason: pretreat for dental appt) RF: 0 lidocaine HCl [Aspercreme (lidocaine HCl)] 4 % Cream 1 applic TOPICAL BID PRN (Reason: Pain) RF: 0 warfarin 5 mg Tablet 5 mg PO 2XWK RF: 0 sennosides [Senokot] 8.6 mg tablet 8.6 - 17.2 mg PO HS PRN (Reason: Constipation) RF: 0 loperamide [Imodium] 2 mg Capsule 2 mg PO UD MDD 4 CAPS PRN (Reason: Diarrhea) RF: 0 furosemide 40 mg tablet 40 mg PO DAILY RF: 0 acetaminophen [Tylenol] 325 mg Tablet 650 mg PO Q6H MDD 3G PRN (Reason: Pain) RF: 0 albuterol sulfate 90 mcg/actuation HFA aerosol inhaler 2 puff INHALATION Q6H PRN (Reason: Wheezing) RF: 0 doxycycline hyclate 100 mg capsule 100 mg PO BID 2 Days Qty: 4 RF: 0 Discontinued Wine/Beer 6 - 8 oz PO DAILY RF: 0 Discharge Orders: Discharge Order (Routine); Ordered 07/02/21 Ordered By: Yogesh Khan/Other Patient Handouts: Managing Type 2 Diabetes Admission Data Admit Date/Time: 06/27/21 00:34 Attending Provider: Yogesh Ring Admit Provider: Abdiel Richardson Primary Care Provider: Elie Donaldson,[facility], [facility] Other Providers: Abdiel Richardson ; [facility]
== END 2021-07-02 10:45 | DRG 871 ==
LOC: ED 17:48 → 1E 06-27 00:34 → SUATTDRO 06-27 00:34 → 1E 06-27 01:10 → 2S 06-27 15:50

== ENCOUNTER 2021-07-16 12:56 | Inpatient (IN) ==
[2021-07-16] MEDS ORDERED: ACETAMINOPHEN 1,000 MG/100 ML VIAL IV STA (14:18)
[2021-07-16] MEDS ORDERED: SODIUM CHLORIDE 0.9% 500 ML IV ONE (14:20)
[2021-07-16 14:42] LABS: Basophils # (auto) 0.05 K/uL (0-0.2); Basophils % (auto) 0.4 %; Eosinophils # (auto) 0.36 K/uL (0-0.5); Eosinophils % (auto) 2.6 %; Hematocrit (blood only) 34.8 % (42-52); Hemoglobin 11.5 g/dL (14.0-18.0); Immature Granulocytes # (auto) 0.04 K/uL (0.00-0.02); Immature Granulocytes % (auto) 0.3 %; Lymphocytes # (auto) 3.39 K/uL (1.2-3.4); Lymphocytes % (auto) 24.9 %; Mean Corpuscular Hemoglobin 30.7 pg (25-34); Mean Corpuscular Volume 92.8 fL (80-100); Mean Platelet Volume 9.7 fL (7.4-10.4); Monocytes # (auto) 2.26 K/uL (0.11-0.59); Monocytes % (auto) 16.6 %; Neutrophils # (auto) 7.52 K/uL (1.4-6.5); Neutrophils % (auto) 55.2 %; Platelet Count 284 K/uL (130-400); RDW Coefficient of Variation 15.6 % (11.5-14.5); RDW Standard Deviation 52.9 fL (36.4-46.3); Red Blood Count 3.75 M/uL (4.7-6.1); White Blood Count 13.62 K/uL (4.8-10.8)
[2021-07-16 14:53] LABS: INR 2.6 (0.9-1.1); Prothrombin Time 24.6 Seconds (9.0-12.0)
[2021-07-16 15:06] LABS: Appearance Urine Clear (Clear); Bacteria Urine Automated Negative (Negative); Bilirubin Urine Negative (Negative); Blood Urine 3+ (Negative); Color Urine Yellow; Epithelial Cell Urine Auto >30 /lpf (0-5); Glucose Urine UA Negative (Negative); Ketones Urine Negative (Negative); Leukocyte Esterase Urine Trace (Negative); Nitrite Urine Negative (Negative); Protein Urine 2+ (Negative); RBC Urine Automated >30 /hpf (0-4); Specific Gravity Urine 1.013 (1.000-1.030); Urobilinogen Urine Negative (Negative)
[2021-07-16 15:09] LABS: Albumin Globulin Ratio 0.7 (0.9-2); Albumin Level 3.1 gm/dl (3.4-5.0); BUN Creatinine Ratio 17.7 (10-20); Bilirubin,Total 0.8 mg/dl (0.2-1.0); Calcium 8.9 mg/dl (8.5-10.1); Creatinine Clr Calc Pharmacy 60.6 ml/min; Est GFR (African American) 82.6 ml/min; Est GFR (Non-African American) 71.3 ml/min; Globulin 4.7 gm/dl (2.5-4.0); Magnesium 1.8 mg/dl (1.7-2.4); Phosphorus 3.4 mg/dl (2.5-4.9); Potassium 4.3 mmol/L (3.5-5.1); Total Protein 7.8 gm/dl (6.0-8.3)
[2021-07-16 15:24] LABS: Renal Epithelial Cells Urine 0-5 /lpf (0-5)
[2021-07-16] MEDS ORDERED: OPTIRAY 320 100ml IV ONE (15:47)
--- NOTE | 2021-07-16 16:13 | CT Scan Report ---
CT OF THE ABDOMEN AND PELVIS WITH CONTRAST CLINICAL HISTORY: Lumbar/pelvic pain. COMPARISON STUDY: Right upper quadrant ultrasound June 26, 2021. CT of the chest and abdomen [facility]. TECHNIQUE: Following IV administration of 94 mL of Optiray, axial images of the abdomen and pelvis we re obtained from the lung bases to the proximal femurs. Images were reviewed in the axial, sagittal, and coronal planes. IV contrast was administered without complication. Automated exposure control wa s utilized for the study. A dose lowering technique was utilized adhering to the principles of ALARA . CT DOSE: 920.17 mGycm FINDINGS: No pneumatosis, free air or portal venous gas is present. Cardiomegaly is noted. Pacer lead is partially imaged. The liver, spleen, adrenal glands, kidneys and pancreas are unremarkable. There is no biliary or pancreatic ductal dilatation. There is no hydronephrosis. There is no evidence for a bowel obstruction. Colonic diverticulosis is noted without evidence for acute diverticulitis. The a ppendix is normal. Note is made of marked bladder wall thickening. Cherry balloon within the bladder i s noted. Images of the pelvis are degraded by streak artifact from right hip arthroplasty. Note is ma de of an acute L1 burst fracture with 25% loss of vertebral body height and disruption of the posteri or cortex. Fracture extends into the anterior aspects of the bilateral pedicles of L1. There is also an acute minimally displaced fracture of the sacrococcygeal junction. No proximal femoral fracture is noted. No suspicious osseous lesions are identified within visualized skeletal structures. IMPRESSION: 1. Acute L1 burst fracture with 25% loss of vertebral body height and disruption of the posterior cor vladimir. Fracture extends into the anterior aspects of the bilateral pedicles. 2. Acute minimally displaced fracture at the sacrococcygeal junction. 3. Colonic diverticulosis. No evidence for acute diverticulitis. No bowel obstruction. 4. Marked bladder wall thickening. This is nonspecific and probably chronic although could be correla clifford with urinalysis. ACT 112: Negative or not required by law. Electronically signed by: Wojciech Robbins M.D. 07/16/2021 4:12 PM
--- NOTE | 2021-07-16 16:20 | CT Scan Report ---
CT OF THE LUMBAR SPINE WITH CONTRAST CLINICAL HISTORY: Lumbar pain. COMPARISON STUDY: Lumbar spine radiographs May 17, 2010. TECHNIQUE: Axial images of the lumbar spine were obtained following intravenous injection of 94 cc of Optiray 320 IV. Sagittal and coronal reconstructions were viewed. Automated exposure control was uti lized for the study. A dose lowering technique was utilized adhering to the principles of ALARA. FINDINGS: Please note that the CT of the abdomen and pelvis will be reported separately. There is an acute L1 burst fracture with 25% loss of vertebral body height. There is disruption of the posterior cortex. Fracture extends into the anterior aspects of both pedicles at this level. Several old left-s ided transverse process fractures are noted. No additional acute fractures within the lumbar spine ar e present. Central canal and neural foramen are suboptimally assessed by CT. Note is made of moderate to severe multilevel degenerative disc disease and facet arthrosis within the lumbar spine. IMPRESSION: 1. Acute L1 burst fracture with 25% loss of vertebral body height and disruption of the posterior cor vladimir. Fracture extends into the anterior aspects of the bilateral pedicles. 2. Moderate to severe multilevel degenerative changes within the lumbar spine. ACT 112: Negative or not required by law. Electronically signed by: Wojciech Robbins M.D. 07/16/2021 4:18 PM
[2021-07-16] MEDS ORDERED: MoRPHine SULFATE 2 MG/ML CARP IV STA (16:41)
--- NOTE | 2021-07-16 18:18 | History & Physical Report ---
Date of Service July 16, 2021 Assessment & Plan (1) Burst fracture of lumbar vertebra: (2) Back pain: (3) Paroxysmal atrial fibrillation: (4) DM type 2 (diabetes mellitus, type 2): (5) CAD (coronary artery disease): (6) HTN (hypertension): Plan: This is an 86-year-old male who has a significant past medical history of CAD with history of CABG and stents, HTN, HLD, insulin-dependent diabetes, CHF, sinus node dysfunction status post permanent pacemaker, history of splenectomy, gout, dementia, history of pancreatic cancer, history of intracerebral hemorrhage who presents to ED with complaints of back pain times several weeks. Frequent falls -several weeks ago Persistent back pain L1 burst fracture Acute minimally displaced fracture at sacrococcygeal junction Admit to med telemetry Consult orthopedic spine -ER provider spoke with Dr. Graham who recommends bedrest Dr. Graham to order brace for patient Possibility of surgical intervention on Tuesday given severity of fracture Pain control with lidocaine patch, scheduled Tylenol, as needed oxycodone CAD with history of CABG CHF HTN Sinus node dysfunction status post pacemaker Continue aspirin, statin, Imdur, Lasix, metoprolol, losartan Patient denies chest pain or shortness of breath Daily weights, strict I's and O's PAF Metoprolol for rate control Warfarin for thrombotic control, INR 2.6 Will how warfarin for now, when INR < 2 can start IV heparin in preparation for possible procedure [id number] IDDM T2 a1c 9.0 on 06/27/21 lantus/novolog per protocol Leukocytosis no fever, urine appears negative but culture pending no s/sx of infection monitor Dementia pt appears at baseline, A&O x 3 to basics only mood stable DVT ppx: Warfarin, INR 2.6, SCD/TEDS Dispo: med tele PCP: Breanna FULL CODE Pt was seen and examined in collaboration with Dr. Mosher, please see addendum History of Present Illness Chief Complaint: Back pain x several weeks. Primary Care Provider: [facility] This is an 86-year-old male who has a significant past medical history of CAD with history of CABG and stents, HTN, HLD, insulin-dependent diabetes, CHF, sinus node dysfunction status post permanent pacemaker, history of splenectomy, gout, dementia, history of pancreatic cancer, history of intracerebral hemorrhage who presents to ED with complaints of back pain times several weeks. Of significance patient was hospitalized 06/27-07/02 secondary to altered mental status and possible sepsis. At that time there was no clear source of infection found. He was initially treated with IV antibiotics but this was since discontinued. He initially presented to hospital secondary to fever and frequent falls. He was seen and evaluated by PT and OT and felt candidate for acute inpatient rehab. He went to [facility] rehab. He finished his course of rehab and was discharged back to his personal care facility at [facility] yesterday on 07/15/2021. While back at [facility] he complained of significant left hip and back pain. There has been no fall since returning to [facility]. He was screaming trying to get out of bed per staff. Patient has underlying dementia and history able to be obtained but unknown reliability. States he has had frequent falls but nothing recently. He complains of pain in his low back bilaterally without radicular symptoms including pain, numbness or tingling. He does have a Cherry catheter in place, although he denied this. He denies any recent fever, chills, sweats, lightheadedness, dizziness, chest pain, shortness breath, cough, nausea, vomiting, abdominal pain. When discussing CAT scan results regarding L1 burst fracture and spine he states when he was in high school he had an fracture of his back and feels this was related to that. In ED pt remained hemodynamically stable. CT lumbar spine did reveal an acute L1 burst fracture with 25% loss of vertebral body height and disruption of posterior cortex. Fracture extends into the anterior aspects of bilateral pedicles. Several old left-sided transverse process fractures were noted as well. CT abdomen pelvis also revealed an acute minimally displaced fracture at the sacrococcygeal junction. ED provider spoke with orthopedic spine Dr. Graham who recommended inpatient admission and possible surgical evaluation. Allergies Allergy/AdvReac Type Severity Reaction Status Date / Time Penicillins Allergy Intermediate HIVES Verified 07/16/21 15:24 clopidogrel Allergy Mild INTERNAL Verified 07/16/21 15:24 HIVES Home Medications Medication Instructions Recorded Confirmed Type amlodipine 5 mg tablet 5 mg PO DAILY 09/04/18 07/16/21 History aspirin 81 mg tablet,delayed 81 mg PO QAM 09/04/18 07/16/21 History release atorvastatin 40 mg tablet 40 mg PO PM 09/04/18 07/16/21 History cholecalciferol (vitamin D3) 25 1,000 unit PO QAM 09/04/18 07/16/21 History mcg (1,000 unit) capsule (Vitamin D3) insulin glargine 100 unit/mL (3 12 units SUBCUT DAILY 09/04/18 07/16/21 History mL) subcutaneous pen (Lantus Solostar U-100 Insulin) isosorbide mononitrate 60 mg 60 mg PO QAM 09/04/18 07/16/21 History tablet,extended release 24 hr losartan 50 mg tablet 50 mg PO QAM 09/04/18 07/16/21 History metoprolol succinate 50 mg 75 mg PO BID 09/04/18 07/16/21 History tablet,extended release 24 hr nitroglycerin 0.4 mg sublingual 0.4 mg SUBLINGUAL UD PRN 09/04/18 07/16/21 History tablet (Nitrostat) pantoprazole 40 mg tablet,delayed 40 mg PO PM 09/04/18 07/16/21 History release polyethylene glycol 3350 17 gram 17 g PO BID PRN 09/04/18 07/16/21 History oral powder packet warfarin 2.5 mg tablet 2.5 mg PO DAILY 09/04/18 07/16/21 History clindamycin HCl 300 mg capsule 600 mg PO ONCE PRN 09/25/20 07/16/21 History acetaminophen 325 mg tablet 650 mg PO Q6H PRN MDD 3G 06/24/21 07/16/21 History (Tylenol) albuterol sulfate 90 mcg/actuation 2 puff INHALATION Q6H PRN 06/24/21 07/16/21 History aerosol inhaler furosemide 40 mg tablet 40 mg PO DAILY 06/24/21 07/16/21 History lidocaine HCl 4 % topical cream 1 applic TOPICAL Q6H PRN 06/24/21 07/16/21 History (Aspercreme (lidocaine HCl)) loperamide 2 mg capsule 2 mg PO UD PRN MDD 4 CAPS 06/24/21 07/16/21 History sennosides 8.6 mg tablet (Senokot) 8.6 - 17.2 mg PO HS PRN 06/24/21 07/16/21 History calcium carbonate 300 mg (750 mg) 1,500 mg PO TID PRN 06/26/21 07/16/21 History chewable tablet (Antacid Extra Strength (calcium carb)) insulin aspart U-100 100 unit/mL 4 unit SC 1130,1630,2100 07/16/21 07/16/21 History subcutaneous solution (Novolog U-100 Insulin aspart) Past Med/Surg History Medical History (Updated 07/16/21 @ 18:19 by Cheli Huang PA-C) ACS (acute coronary syndrome) CAD (coronary artery disease) Chronic anticoagulation DM type 2 (diabetes mellitus, type 2) Dyslipidemia Dyspnea on exertion Gout History of cerebral hemorrhage HTN (hypertension) Pacemaker Pancreatic cancer Paroxysmal atrial fibrillation Sinus node dysfunction SSS (sick sinus syndrome) Surgical History H/O arthroscopic knee surgery H/O colonoscopy H/O esophagogastroduodenoscopy H/O inguinal hernia repair History of pancreatectomy "07/15/2010 Dr[facility] [place] " S/P CABG x 1 S/P coronary artery stent placement "03/29/03 cardiac cath: RCA - stent of 90% lesion, L circ obtuse kenneth - stent of 80% lesion " S/P splenectomy S/P tonsillectomy and adenoidectomy Family History Other Family history non-contributory Social History (Updated 07/16/21 @ 18:05 by Cheli Huang PA-C) Smoking Status: Never smoker Tobacco Type: Cigarettes Hx Alcohol Use: No Hx Substance Use: No Preferred Language: Gambian Communication Ability: Effective Assembly Operator Required: No Beliefs That Will Affect Care: None marital status: / Current Living Situation: Other Current Living Situation Comment: Assisted living current occupational status: retired How many Children do You have: 3 Feels Safe at Home: Yes Assistive Devices: Walker Review of Systems Review of Systems: All systems reviewed & are unremarkable except as noted in HPI & below Physical Exam Physical Exam: Constitutional: Tall, elderly, male, WD/WN, vitals as above, NAD, lying in bed, answers questions appropriately, alert and oriented x3 but only to basics Head: Normocephalic, Atraumatic Eyes: PERRL, conjunctivae normal, anicteric sclerae ENMT: external ear and nose normal, oropharynx normal Neck: trachea midline, no thyromegaly normal visual inspection Respiratory: normal respiratory effort, lungs clear to auscultation, no wheeze, rales, rhonchi. Normal insp/exp effort, no accessory muscle use Cardiovascular: Regular rate, irregular rhythm, no murmur, no edema Vessels: no JVD or carotid bruit Chest: normal inspection of chest Abdomen: normal bowel sounds, soft, nontender, no hepatosplenomegaly Musculoskeletal: no cyanosis or clubbing, active range of motion to extremities x4, sensation intact Skin: no rashes, warm and dry normal turgor Neurologic: PERRL, EOMI, accommodation nl, no face palsy, no dysarthria CN's II-XI intact bilaterally and moves all extremities Psychiatric: A+Ox3 to basics only, euthymic affect Lymphatic: no cervical or axillary lymphadenopathy : Cherry cath noted draining yellow urine Results & Data Results & Data ([facility]) Vital Signs (Past 12 Hours) Vital Signs Temp Pulse Resp BP Pulse Ox 07/16/21 15:00 66 9 L 129/60 93 07/16/21 14:55 93 07/16/21 14:50 72 17 128/68 95 07/16/21 13:05 36.9 C 66 17 117/68 94 Diagnostic Findings Abdomen/Pelvis CT 07/16/21 14:18 CT OF THE ABDOMEN AND PELVIS WITH CONTRAST CLINICAL HISTORY: Lumbar/pelvic pain. COMPARISON STUDY: Right upper quadrant ultrasound June 26, 2021. CT of the chest and abdomen April 03, 2010. TECHNIQUE: Following IV administration of 94 mL of Optiray, axial images of the abdomen and pelvis were obtained from the lung bases to the proximal femurs. Images were reviewed in the axial, sagittal, and coronal planes. IV contrast was administered without complication. Automated exposure control was utilized for the study. A dose lowering technique was utilized adhering to the principles of ALARA. CT DOSE: 920.17 mGycm FINDINGS: No pneumatosis, free air or portal venous gas is present. Cardiomegaly is noted. Pacer lead is partially imaged. The liver, spleen, adrenal glands, kidneys and pancreas are unremarkable. There is no biliary or pancreatic ductal dilatation. There is no hydronephrosis. There is no evidence for a bowel obstruction. Colonic diverticulosis is noted without evidence for acute diverticulitis. The appendix is normal. Note is made of marked bladder wall thickening. Cherry balloon within the bladder is noted. Images of the pelvis are degraded by streak artifact from right hip arthroplasty. Note is made of an acute L1 burst fracture with 25% loss of vertebral body height and disruption of the posterior cortex. Fracture extends into the anterior aspects of the bilateral pedicles of L1. There is also an acute minimally displaced fracture of the sacrococcygeal junction. No proximal femoral fracture is noted. No suspicious osseous lesions are identified within visualized skeletal structures. IMPRESSION: 1. Acute L1 burst fracture with 25% loss of vertebral body height and disruption of the posterior cortex. Fracture extends into the anterior aspects of the bilateral pedicles. 2. Acute minimally displaced fracture at the sacrococcygeal junction. 3. Colonic diverticulosis. No evidence for acute diverticulitis. No bowel obstruction. 4. Marked bladder wall thickening. This is nonspecific and probably chronic although could be correlated with urinalysis. ACT 112: Negative or not required by law. Electronically signed by: Wojciech Robbins M.D. 07/16/2021 4:[address] 07/16/21 14:18 CT OF THE LUMBAR SPINE WITH CONTRAST CLINICAL HISTORY: Lumbar pain. COMPARISON STUDY: Lumbar spine radiographs May 17, 2010. TECHNIQUE: Axial images of the lumbar spine were obtained following intravenous injection of 94 cc of Optiray 320 IV. Sagittal and coronal reconstructions were viewed. Automated exposure control was utilized for the study. A dose lowering technique was utilized adhering to the principles of ALARA. FINDINGS: Please note that the CT of the abdomen and pelvis will be reported separately. There is an acute L1 burst fracture with 25% loss of vertebral body height. There is disruption of the posterior cortex. Fracture extends into the anterior aspects of both pedicles at this level. Several old left-sided transverse process fractures are noted. No additional acute fractures within the lumbar spine are present. Central canal and neural foramen are suboptimally assessed by CT. Note is made of moderate to severe multilevel degenerative disc disease and facet arthrosis within the lumbar spine. IMPRESSION: 1. Acute L1 burst fracture with 25% loss of vertebral body height and disruption of the posterior cortex. Fracture extends into the anterior aspects of the bilateral pedicles. 2. Moderate to severe multilevel degenerative changes within the lumbar spine. ACT 112: Negative or not required by law. Electronically signed by: Wojciech Robbins M.D. 07/16/2021 4:18 PM Medications Administered Medication List Discontinued Medications Acetaminophen (Ofirmev) 1,000 mg in 100 mls @ 400 mls/hr IV NOW STA Stop: 07/16/21 14:32 Last Infusion: 07/16/21 14:59 Dose: 0 mls/hr Documented by: [id number] Admin: 07/16/21 14:42 Dose: 400 mls/hr Documented by: [id number] Sodium Chloride (Nss) 500 mls @ 999 mls/hr IV .Q31M ONE Stop: 07/16/21 14:50 Last Infusion: 07/16/21 14:59 Dose: 0 mls/hr Documented by: [id number] Admin: 07/16/21 14:43 Dose: 999 mls/hr Documented by: [id number] Ioversol (Optiray 320 100ml) 94 ml IV ONCE ONE Stop: 07/16/21 15:48 Last Admin: 07/16/21 15:52 Dose: 94 ml Documented by: [id number] Morphine Sulfate (Morphine Sulfate 2 Mg/Ml Carp) 1 mg IV NOW STA Stop: 07/16/21 16:42 Last Admin: 07/16/21 17:04 Dose: 1 mg Documented by: [id number] COVID-19 Results Results COVID-19 Adm Lab Results: RBC 3.75 M/uL (4.7-6.1) L 07/16/21 WBC 13.62 K/uL (4.8-10.8) H 07/16/21 Hgb 11.5 g/dL (14.0-18.0) L 07/16/21 Hct 34.8 % (42-52) L 07/16/21 Plt Count 284 K/uL (130-400) 07/16/21 Neutrophils (%) (Auto) 55.2 % 07/16/21 Lymphocytes (%) (Auto) 24.9 % 07/16/21 Monocytes # (Auto) 2.26 K/uL (0.11-0.59) H 07/16/21 Eosinophils # (Auto) 0.36 K/uL (0-0.5) 07/16/21 Immature Granulocyte % (Auto) 0.3 % 07/16/21 Neutrophils # (Auto) 7.52 K/uL (1.4-6.5) H 07/16/21 Lymphocytes # (Auto) 3.39 K/uL (1.2-3.4) 07/16/21 Monocytes # (Auto) 2.26 K/uL (0.11-0.59) H 07/16/21 Eosinophils # (Auto) 0.36 K/uL (0-0.5) 07/16/21 Basophils # (Auto) 0.05 K/uL (0-0.2) 07/16/21 Immature Granulocyte # (Auto) 0.04 K/uL (0.00-0.02) H 07/16/21 Na 136 mmol/L (136-145) 07/16/21 K 4.3 mmol/L (3.5-5.1) 07/16/21 Cl 101 mmol/L (98-107) 07/16/21 CO2 27 mmol/L (21-32) 07/16/21 Anion Gap 8 (3-11) 07/16/21 BUN 17 mg/dl (6-23) 07/16/21 Creatinine 0.96 mg/dl (0.6-1.4) 07/16/21 BUN/Creatinine Ratio 17.7 (10-20) 07/16/21 Glucose Level 69 mg/dl (70-99(Fasting)) L 07/16/21 Ca 8.9 mg/dl (8.5-10.1) 07/16/21 Phosphorus Level 3.4 mg/dl (2.5-4.9) 07/16/21 Total Bilirubin 0.8 mg/dl (0.2-1.0) 07/16/21 AST/SGOT 31 U/L (13-39) 07/16/21 ALT/SGPT 23 U/L (7-52) 07/16/21 Alkaline Phosphatase 143 U/L (34-104) H 07/16/21 Total Protein 7.8 gm/dl (6.0-8.3) 07/16/21 Albumin 3.1 gm/dl (3.4-5.0) L 07/16/21 Globulin 4.7 gm/dl (2.5-4.0) H 07/16/21 Albumin/Globulin Ratio 0.7 (0.9-2) L 07/16/21 INR 2.6 (0.9-1.1) H 07/16/21 Code Status & VTE Plan Code Status FULL CODE VTE Prophylaxis Plan VTE Prophylaxis will be ordered: Yes Supervising Physician Co-Signing Physician Notes Attending addendum The patient was seen and examined in emergency room He complains to have back pain but cannot definitely say whether is radiating down to the legs He has history of recurrent falls but no recent fall at the [facility] from where he came Denies any other symptoms but he has dementia On examination Lying in bed without any acute distress Hemodynamically stable Chestdecreased breath sounds bilaterally with minimal crackles at the bases HeartS1, [id number] Abdomen-benign Extremities-no edema CNSalert and awake. Sensation seems to be intact bilaterally. Passive straight leg raising was painful at the back His admission labs, EKG and imaging studies reviewed Has a L1 burst fracture and also thickening of the bladder wall without any suggestion of UTI PAF on Coumadin INR is little over two-Coumadin or is on hold Ortho evaluation requested Agree with assessment and plan as outlined above by Cheli Mosher
--- NOTE | 2021-07-16 18:32 | Emergency Department Note ---
Impression & Plan Burst fracture of lumbar vertebra, Intractable low back pain, Closed fracture of sacrum and coccyx ED Provider Note NAME: ANTOINETTE AHUMADA AGE: 86 SEX: M ARRIVES VIA: Ambulance INFORMANT: Patient, EMS ED PROVIDER(S): Todd Rojas MD CHIEF COMPLAINT: back pain PLAN: Disposition: Admit MEDICAL DECISION MAKING: The patient is a 86-year-old gentleman with a past medical history of dementia, type 2 diabetes, gout, hyperlipidemia, sinus node dysfunction and paroxysmal A. fib status post PPM, hypertension, chronic systolic heart failure with EF of 50% in 2019, cognitive disorder, CAD status post PCI, history of CABG, history of splenectomy, history of pancreatic cancer, history of ICH who presents to the emergency department from his personal snf in [facility] for worsening low back and hip pain over the past couple of days after returning to their facility following admission to [facility] acute rehab for back pain in the setting of a fall on 06/26 following admission to [facility] from 06/27-07/02. There are no reports of any new falls. The patient is a poor history. He indicates his area of pain is at the level of the iliac crest bilaterally. On arrival the patient is uncomfortable but in NAD, AFVSS. He appears euvolemic to dry. He has FROM of hips bilaterally. Pelvis is stable. No midline CTL spine tenderness to palpation or stepoffs. No discrete tenderness to palpation over iliac crest bilaterally where the patient indicates his pain is severe and worsened when sitting up. WBC 13.6K, nonspecific and similar to prior. H/H similar to prior. Platelets within normal limits. INR is 2.6. Chemistry without metabolic acidosis. Electrolytes and LFTs without significant abnormality. Lipase is not elevated. UA with WBCs albeit with epithelial cells and no bacteria. CT of the lumbar spine and abdomen pelvis were performed. Note is made of acute L1 burst fracture with 25% loss of vertebral body height and disruption of the posterior cortex with fracture that extends into anterior aspects of bilateral pedicles. Additional note is made of acute minimally displaced fracture of the sacrococcygeal junction. Bladder wall thickening is noted which is nonspecific. Given the patient's symptoms are continuation of his back and hip pain that he had been experiencing from his initial fall 2 weeks ago with no report of new falls suspect the CT findings are related to this prior fall. Case was reviewed with Dr. Graham, orthopedic spine surgery. Appreciate discussion. Agrees that patient can remain here with L-spine precautions/bed rest. They will consult for admitting team and order brace. Given the severity of the fracture will consider surgery and discuss with family further. I updated the patient's son, David and his . They agree with plan for admission for further management evaluation. Case was discussed with Ulises Sy PAC, [facility] who will evaluate the patient for admission. Triage Nursing notes reviewed and agree them. Prior medical records reviewed Vital Signs: reviewed and remarkable for no significant abnormalities Differential diagnosis: Musculoskeletal, disc herniation, fracture, metastatic disease, cord compression, discitis, sciatica, cauda equina, infection, aortic disease, renal colic, gastrointestinal, as well as other pathologies. ER treatment provided: See below. Diagnostics interpreted by me: Cardiac Monitoring: An order for continuous cardiac monitoring was placed and demonstrated pace rhythm, 66bpm, no ectopy. Laboratory studies: See below Imaging studies: See below Consultation(s): Dr. Graham, orthopedic spine surgery. Naheed Sy PAC, [facility]. HPI: The patient is a 86-year-old gentleman with a past medical history of dementia, type 2 diabetes, gout, hyperlipidemia, sinus node dysfunction and par oxysmal A. fib status post PPM, hypertension, chronic systolic heart failure with EF of 50% in 2019, cognitive disorder, CAD status post PCI, history of CABG, history of splenectomy, history of pancreatic cancer, history of ICH who presents to the emergency department from his personal snf in [facility] for worsening low back and hip pain over the past couple of days after returning to their facility following admission to [facility] acute rehab for back pain in the setting of a fall on 06/26 following admission to [facility] from 06/27-07/02. There are no reports of any new falls. The patient is a poor history. He indicates his area of pain is at the level of the iliac crest bilaterally. ROS: See above HPI for pertinent positives & negatives. A total of 10 systems reviewed and were otherwise negative. PAST MEDICAL HISTORY:See Below PAST SURGICAL HISTORY:See Below FAMILY HISTORY:See Below SOCIAL HISTORY:See Below HOME MEDICATIONS:See Below ALLERGIES:See Below VITALS:See Below PHYSICAL EXAMINATION: GENERAL: Awake, alert, uncomfortable-appearing, in no distress HENT: Normocephalic, atraumatic. Oropharynx unremarkable. EYES: Normal conjunctiva. Sclera non-icteric. NECK: Supple. No nuchal rigidity. FROM. No JVD. RESPIRATORY: Clear to auscultation. CARDIAC: Regular rate, normal rhythm. Extremities warm and well perfused. Pulses equal. ABDOMEN: Soft, non-distended. No tenderness to palpation. No rebound or guarding. No masses. RECTAL: Deferred. MUSCULOSKELETAL: Chest examination reveals no tenderness. FROM of hips bilaterally. Pelvis is stable. No midline CTL spine tenderness to palpation or stepoffs. No discrete tenderness to palpation over iliac crest bilaterally where the patient indicates his pain is severe and worsened when sitting up. No joint edema. LOWER EXTREMITIES: Calves are equal size bilaterally and non-tender. No edema. No discoloration. NEURO: Mild confusion. No focal sensory or motor deficits noted. SKIN: No rash or jaundice noted. Todd Rojas MD Past Med/Surg History Medical History (Updated 07/16/21 @ 22:19 by Todd Rojas MD) ACS (acute coronary syndrome) CAD (coronary artery disease) Chronic anticoagulation DM type 2 (diabetes mellitus, type 2) Dyslipidemia Dyspnea on exertion Gout History of cerebral hemorrhage HTN (hypertension) Pacemaker Pancreatic cancer Paroxysmal atrial fibrillation Sinus node dysfunction SSS (sick sinus syndrome) Surgical History H/O arthroscopic knee surgery H/O colonoscopy H/O esophagogastroduodenoscopy H/O inguinal hernia repair History of pancreatectomy "07/15/2010 [place] [facility] [place] S/P CABG x 1 S/P coronary artery stent placement "03/29/03 cardiac cath: RCA - stent of 90% lesion, L circ obtuse kenneth - stent of 80% lesion " S/P splenectomy S/P tonsillectomy and adenoidectomy Family History Other Family history non-contributory Social History Smoking Status: Never smoker Tobacco Type: Cigarettes Hx Alcohol Use: No Hx Substance Use: No Preferred Language: Indonesian Communication Ability: Effective Intellectual Property Legal Assistant Required: No Beliefs That Will Affect Care: None marital status: / Current Living Situation: Other Current Living Situation Comment: Assisted living current occupational status: retired How many Children do You have: 3 Feels Safe at Home: Yes Assistive Devices: Walker Allergies Allergies Allergy/AdvReac Type Severity Reaction Status Date / Time Penicillins Allergy Intermediate HIVES Verified 07/16/21 15:24 clopidogrel Allergy Mild INTERNAL Verified 07/16/21 15:24 HIVES Home Meds Home Medications Medication Instructions Recorded Confirmed amlodipine 5 mg tablet 5 mg PO DAILY 09/04/18 07/16/21 aspirin 81 mg tablet,delayed 81 mg PO QAM 09/04/18 07/16/21 release atorvastatin 40 mg tablet 40 mg PO PM 09/04/18 07/16/21 cholecalciferol (vitamin D3) 25 1,000 unit PO QAM 09/04/18 07/16/21 mcg (1,000 unit) capsule (Vitamin D3) insulin glargine 100 unit/mL (3 12 units SUBCUT DAILY 09/04/18 07/16/21 mL) subcutaneous pen (Lantus Solostar U-100 Insulin) isosorbide mononitrate 60 mg 60 mg PO QAM 09/04/18 07/16/21 tablet,extended release 24 hr losartan 50 mg tablet 50 mg PO QAM 09/04/18 07/16/21 metoprolol succinate 50 mg 75 mg PO BID 09/04/18 07/16/21 tablet,extended release 24 hr nitroglycerin 0.4 mg sublingual 0.4 mg SUBLINGUAL UD PRN 09/04/18 07/16/21 tablet (Nitrostat) pantoprazole 40 mg tablet,delayed 40 mg PO PM 09/04/18 07/16/21 release polyethylene glycol 3350 17 gram 17 g PO BID PRN 09/04/18 07/16/21 oral powder packet warfarin 2.5 mg tablet 2.5 mg PO DAILY 09/04/18 07/16/21 clindamycin HCl 300 mg capsule 600 mg PO ONCE PRN 09/25/20 07/16/21 acetaminophen 325 mg tablet 650 mg PO Q6H PRN MDD 3G 06/24/21 07/16/21 (Tylenol) albuterol sulfate 90 mcg/actuation 2 puff INHALATION Q6H PRN 06/24/21 07/16/21 aerosol inhaler furosemide 40 mg tablet 40 mg PO DAILY 06/24/21 07/16/21 lidocaine HCl 4 % topical cream 1 applic TOPICAL Q6H PRN 06/24/21 07/16/21 (Aspercreme (lidocaine HCl)) loperamide 2 mg capsule 2 mg PO UD PRN MDD 4 CAPS 06/24/21 07/16/21 sennosides 8.6 mg tablet (Senokot) 8.6 - 17.2 mg PO HS PRN 06/24/21 07/16/21 calcium carbonate 300 mg (750 mg) 1,500 mg PO TID PRN 06/26/21 07/16/21 chewable tablet (Antacid Extra Strength (calcium carb)) insulin aspart U-100 100 unit/mL 4 unit SC 1130,1630,2100 07/16/21 07/16/21 subcutaneous solution (Novolog U-100 Insulin aspart) Results & Data (ED) Vital Signs Vital Signs - 24 hr 07/16/21 13:05 07/16/21 14:50 07/16/21 14:55 Temperature 36.9 C Temperature Source Oral Pulse Rate 66 72 Pulse Rate [Left Finger] Pulse Rate from SpO2 Sensor 70 Pulse Rhythm Regular Respiratory Rate 17 17 Respiratory Effort / Characteristics Non-Labored Respiratory Depth Normal Blood Pressure 117/68 128/68 Blood Pressure [Left Arm] Blood Pressure Mean 84 88 Blood Pressure Mean [Left Arm] Pulse Oximetry 94 95 93 Oxygen Delivery Method Room Air Room Air Sepsis Recent Fever Within 48 Hours No Sepsis New/Unexplained Change in Mental Status No Sepsis Action Taken by Nursing No Action Required 07/16/21 15:00 07/16/21 19:39 07/16/21 21:00 Temperature Temperature Source Pulse Rate 66 Pulse Rate [Left Finger] 69 66 Pulse Rate from SpO2 Sensor 63 Pulse Rhythm Respiratory Rate 9 L 18 16 Respiratory Effort / Characteristics Respiratory Depth Blood Pressure 129/60 Blood Pressure [Left Arm] 125/67 121/67 Blood Pressure Mean 83 Blood Pressure Mean [Left Arm] 86 85 Pulse Oximetry 93 96 93 Oxygen Delivery Method Room Air Sepsis Recent Fever Within 48 Hours Sepsis New/Unexplained Change in Mental Status Sepsis Action Taken by Nursing Laboratory Data Attestation: I reviewed the patient's lab results. Result diagrams: 07/16/21 14:33 07/16/21 14:33 Lab Results 07/16/21 07/16/21 07/16/21 Range/Units 14:33 14:33 14:33 WBC 13.62 H (4.8-10.8) K/uL RBC 3.75 L (4.7-6.1) M/uL Hgb 11.5 L (14.0-18.0) g/dL Hct 34.8 L (42-52) % MCV 92.8 (80-100) fL MCH 30.7 (25-34) pg MCHC 33.0 (32-36) g/dL RDW Std Deviation 52.9 H (36.4-46.3) fL RDW Coeff of Trevon 15.6 H (11.5-14.5) % Plt Count 284 (130-400) K/uL MPV 9.7 (7.4-10.4) fL Immature Gran % (Auto) 0.3 % Neut % (Auto) 55.2 % Lymph % (Auto) 24.9 % [place] % (Auto) 16.6 % Eos % (Auto) 2.6 % Baso % (Auto) 0.4 % Neut # (Auto) 7.52 H (1.4-6.5) K/uL Lymph # (Auto) 3.39 (1.2-3.4) K/uL [place] # (Auto) 2.26 H (0.11-0.59) K/uL Eos # (Auto) 0.36 (0-0.5) K/uL Baso # (Auto) 0.05 (0-0.2) K/uL Immature Gran # (Auto) 0.04 H (0.00-0.02) K/uL PT 24.6 H (9.0-12.0) Seconds INR 2.6 H (0.9-1.1) Sodium 136 (136-145) mmol/L Potassium 4.3 (3.5-5.1) mmol/L Chloride 101 (98-107) mmol/L Carbon Dioxide 27 (21-32) mmol/L Anion Gap 8 (3-11) BUN 17 (6-23) mg/dl Creatinine 0.96 (0.6-1.4) mg/dl Est Cr Clr Drug Dosing 60.6 ml/min Est GFR ( Amer) 82.6 ml/min Est GFR (Non-Af Amer) 71.3 ml/min BUN/Creatinine Ratio 17.7 (10-20) Glucose 69 L (70-99(Fasting)) mg/dl POC Glucose (70-99) mg/dl Calcium 8.9 (8.5-10.1) mg/dl Phosphorus 3.4 (2.5-4.9) mg/dl Magnesium 1.8 (1.7-2.4) mg/dl Total Bilirubin 0.8 (0.2-1.0) mg/dl AST 31 (13-39) U/L ALT 23 (7-52) U/L Alkaline Phosphatase 143 H (34-104) U/L Total Protein 7.8 (6.0-8.3) gm/dl Albumin 3.1 L (3.4-5.0) gm/dl Globulin 4.7 H (2.5-4.0) gm/dl Albumin/Globulin Ratio 0.7 L (0.9-2) Lipase 14 (11-82) U/L Urine Color Urine Appearance (Clear) Urine pH (4.5-7.5) Ur Specific [place] (1.000-1.030) Urine Protein (Negative) Urine Glucose (UA) (Negative) Urine Ketones (Negative) Urine Blood (Negative) Urine Nitrite (Negative) Urine Bilirubin (Negative) Urine Urobilinogen (Negative) Ur Leukocyte Esterase (Negative) Urine WBC (Auto) (0-5) /hpf Urine RBC (Auto) (0-4) /hpf U Hyaline Cast (Auto) (0-5) /lpf U Epithel Cells (Auto) (0-5) /lpf Urine Bacteria (Auto) (Negative) Ur Renal Epithelial Cell (0-5) /lpf SARS-CoV-2, RNA, NAAT (NEGATIVE) 07/16/21 07/16/21 07/16/21 Range/Units 14:37 18:19 18:51 WBC (4.8-10.8) K/uL RBC (4.7-6.1) M/uL Hgb (14.0-18.0) g/dL Hct (42-52) % MCV (80-100) fL MCH (25-34) pg MCHC (32-36) g/dL RDW Std Deviation (36.4-46.3) fL RDW Coeff of Trevon (11.5-14.5) % Plt Count (130-400) K/uL MPV (7.4-10.4) fL Immature Gran % (Auto) % Neut % (Auto) % Lymph % (Auto) % [place] % (Auto) % Eos % (Auto) % Baso % (Auto) % Neut # (Auto) (1.4-6.5) K/uL Lymph # (Auto) (1.2-3.4) K/uL [place] # (Auto) (0.11-0.59) K/uL Eos # (Auto) (0-0.5) K/uL Baso # (Auto) (0-0.2) K/uL Immature Gran # (Auto) (0.00-0.02) K/uL PT (9.0-12.0) Seconds INR (0.9-1.1) Sodium (136-145) mmol/L Potassium (3.5-5.1) mmol/L Chloride (98-107) mmol/L Carbon Dioxide (21-32) mmol/L Anion Gap (3-11) BUN (6-23) mg/dl Creatinine (0.6-1.4) mg/dl Est Cr Clr Drug Dosing ml/min Est GFR ( Amer) ml/min Est GFR (Non-Af Amer) ml/min BUN/Creatinine Ratio (10-20) Glucose (70-99(Fasting)) mg/dl POC Glucose 78 (70-99) mg/dl Calcium (8.5-10.1) mg/dl Phosphorus (2.5-4.9) mg/dl Magnesium (1.7-2.4) mg/dl Total Bilirubin (0.2-1.0) mg/dl AST (13-39) U/L ALT (7-52) U/L Alkaline Phosphatase (34-104) U/L Total Protein (6.0-8.3) gm/dl Albumin (3.4-5.0) gm/dl Globulin (2.5-4.0) gm/dl Albumin/Globulin Ratio (0.9-2) Lipase (11-82) U/L Urine Color Yellow Urine Appearance Clear (Clear) Urine pH 5.0 (4.5-7.5) Ur Specific [place] 1.013 (1.000-1.030) Urine Protein 2+ H (Negative) Urine Glucose (UA) Negative (Negative) Urine Ketones Negative (Negative) Urine Blood 3+ H (Negative) Urine Nitrite Negative (Negative) Urine Bilirubin Negative (Negative) Urine Urobilinogen Negative (Negative) Ur Leukocyte Esterase Trace H (Negative) Urine WBC (Auto) 10-30 H (0-5) /hpf Urine RBC (Auto) >30 H (0-4) /hpf U Hyaline Cast (Auto) 10-30 H (0-5) /lpf U Epithel Cells (Auto) >30 H (0-5) /lpf Urine Bacteria (Auto) Negative (Negative) Ur Renal Epithelial Cell 0-5 (0-5) /lpf SARS-CoV-2, RNA, NAAT NEGATIVE (NEGATIVE) Administered Medications Acetaminophen (Acetaminophen 500 Mg Tab) 500 mg PO QID CLARISSA Stop: 08/15/21 20:59 Last Admin: 07/16/21 20:49 Dose: 500 mg Documented by: [id number] Discontinued Medications Acetaminophen (Ofirmev) 1,000 mg in 100 mls @ 400 mls/hr IV NOW STA Stop: 07/16/21 14:32 Last Infusion: 07/16/21 14:59 Dose: 0 mls/hr Documented by: [id number] Admin: 07/16/21 14:42 Dose: 400 mls/hr Documented by: [id number] Sodium Chloride (Nss) 500 mls @ 999 mls/hr IV .Q31M ONE Stop: 07/16/21 14:50 Last Infusion: 07/16/21 14:59 Dose: 0 mls/hr Documented by: [id number] Admin: 07/16/21 14:43 Dose: 999 mls/hr Documented by: [id number] Ioversol (Optiray 320 100ml) 94 ml IV ONCE ONE Stop: 07/16/21 15:48 Last Admin: 07/16/21 15:52 Dose: 94 ml Documented by: [id number] Morphine Sulfate (Morphine Sulfate 2 Mg/Ml Carp) 1 mg IV NOW STA Stop: 07/16/21 16:42 Last Admin: 07/16/21 17:04 Dose: 1 mg Documented by: [id number] Imaging Data Radiologist's Impression: Abdomen/Pelvis CT 07/16/21 14:18 CT OF THE ABDOMEN AND PELVIS WITH CONTRAST CLINICAL HISTORY: Lumbar/pelvic pain. COMPARISON STUDY: Right upper quadrant ultrasound June 26, 2021. CT of the chest and abdomen April 03, 2010. TECHNIQUE: Following IV administration of 94 mL of Optiray, axial images of the abdomen and pelvis were obtained from the lung bases to the proximal femurs. Images were reviewed in the axial, sagittal, and coronal planes. IV contrast was administered without complication. Automated exposure control was utilized for the study. A dose lowering technique was utilized adhering to the principles of ALARA. CT DOSE: 920.17 mGycm FINDINGS: No pneumatosis, free air or portal venous gas is present. Cardiomegaly is noted. Pacer lead is partially imaged. The liver, spleen, adrenal glands, kidneys and pancreas are unremarkable. There is no biliary or pancreatic ductal dilatation. There is no hydronephrosis. There is no evidence for a bowel obstruction. Colonic diverticulosis is noted without evidence for acute diverticulitis. The appendix is normal. Note is made of marked bladder wall thickening. Cherry balloon within the bladder is noted. Images of the pelvis are degraded by streak artifact from right hip arthroplasty. Note is made of an acute L1 burst fracture with 25% loss of vertebral body height and disruption of the posterior cortex. Fracture extends into the anterior aspects of the bilateral pedicles of L1. There is also an acute minimally displaced fracture of the sacrococcygeal junction. No proximal femoral fracture is noted. No suspicious osseous lesions are identified within visualized skeletal structures. IMPRESSION: 1. Acute L1 burst fracture with 25% loss of vertebral body height and disruption of the posterior cortex. Fracture extends into the anterior aspects of the bilateral pedicles. 2. Acute minimally displaced fracture at the sacrococcygeal junction. 3. Colonic diverticulosis. No evidence for acute diverticulitis. No bowel obstruction. 4. Marked bladder wall thickening. This is nonspecific and probably chronic although could be correlated with urinalysis. ACT 112: Negative or not required by law. Electronically signed by: Wojciech Robbins M.D. 07/16/2021 4:[address] 07/16/21 14:18 CT OF THE LUMBAR SPINE WITH CONTRAST CLINICAL HISTORY: Lumbar pain. COMPARISON STUDY: Lumbar spine radiographs May 17, 2010. TECHNIQUE: Axial images of the lumbar spine were obtained following intravenous injection of 94 cc of Optiray 320 IV. Sagittal and coronal reconstructions were viewed. Automated exposure control was utilized for the study. A dose lowering technique was utilized adhering to the principles of ALARA. FINDINGS: Please note that the CT of the abdomen and pelvis will be reported separately. There is an acute L1 burst fracture with 25% loss of vertebral body height. There is disruption of the posterior cortex. Fracture extends into the anterior aspects of both pedicles at this level. Several old left-sided transverse process fractures are noted. No additional acute fractures within the lumbar spine are present. Central canal and neural foramen are suboptimally assessed by CT. Note is made of moderate to severe multilevel degenerative disc disease and facet arthrosis within the lumbar spine. IMPRESSION: 1. Acute L1 burst fracture with 25% loss of vertebral body height and disruption of the posterior cortex. Fracture extends into the anterior aspects of the bilateral pedicles. 2. Moderate to severe multilevel degenerative changes within the lumbar spine. ACT 112: Negative or not required by law. Electronically signed by: Wojciech Robbins M.D. 07/16/2021 4:18 PM Discharge Plan Visit Data Chief Complaint: Back Injury/Pain Stated Complaint: L BACK & HIP PAIN, HEMATURIA Discharge Problem: Burst fracture of lumbar vertebra, Intractable low back pain, Closed fracture of sacrum and coccyx Patient Disposition: Admitted As Inpatient Forms Stand Alone Forms: [facility] Prescriptions Prescriptions: No Action amlodipine 5 mg tablet 5 mg PO DAILY RF: 0 losartan 50 mg tablet 50 mg PO QAM RF: 0 atorvastatin 40 mg tablet 40 mg PO PM RF: 0 metoprolol succinate 50 mg tablet extended release 24 hr 75 mg PO BID RF: 0 warfarin 2.5 mg tablet 2.5 mg PO DAILY RF: 0 aspirin 81 mg Tablet,Delayed Release (Dr/Ec) 81 mg PO QAM RF: 0 isosorbide mononitrate 60 mg tablet extended release 24 hr 60 mg PO QAM RF: 0 pantoprazole 40 mg tablet,delayed release (DR/EC) 40 mg PO PM RF: 0 cholecalciferol (vitamin D3) [Vitamin D3] 1,000 unit Capsule 1,000 unit PO QAM RF: 0 Lantus Solostar U-100 Insulin 100 unit/mL (3 mL) insulin pen 12 units subcut DAILY RF: 0 polyethylene glycol 3350 17 gram Powder In Packet 17 g PO BID PRN (Reason: Constipation) RF: 0 nitroglycerin [Nitrostat] 0.4 mg Tablet, Sublingual 0.4 mg sublingual UD PRN (Reason: Chest Pain) RF: 0 calcium carbonate [Antacid Ext Str (calcium carb)] 300 mg (750 mg) Tablet,Chewable 1,500 mg PO TID PRN (Reason: Indigestion) RF: 0 clindamycin HCl 300 mg capsule 600 mg PO ONCE PRN (Reason: pretreat for dental appt) RF: 0 lidocaine HCl [Aspercreme (lidocaine HCl)] 4 % Cream 1 applic TOPICAL Q6H PRN (Reason: Pain) RF: 0 sennosides [Senokot] 8.6 mg tablet 8.6 - 17.2 mg PO HS PRN (Reason: Constipation) RF: 0 loperamide 2 mg Capsule 2 mg PO UD MDD 4 CAPS PRN (Reason: Diarrhea) RF: 0 furosemide 40 mg tablet 40 mg PO DAILY RF: 0 acetaminophen [Tylenol] 325 mg Tablet 650 mg PO Q6H MDD 3G PRN (Reason: Pain) RF: 0 albuterol sulfate 90 mcg/actuation HFA aerosol inhaler 2 puff INHALATION Q6H PRN (Reason: Wheezing) RF: 0 insulin aspart U-100 [Novolog U-100 Insulin aspart] 100 unit/mL solution 4 unit SC 1130,1630,2100 RF: 0 Referrals Referrals: [facility] [Primary Care Provider] -
[2021-07-16] MEDS: ACETAMINOPHEN 500 MG TAB PO SCH (20:49)
[2021-07-16] MEDS ORDERED: CALCIUM CARBONATE 500 MG CHEWABLE TAB PO PRN (22:25)
[2021-07-16] MEDS ORDERED: GLUCOSE 40% GEL 15 GM TUBE PO PRN (22:25)
[2021-07-16] MEDS ORDERED: CARBOHYDRATES FOR HYPOGLYCEMIA PO PRN (22:25)
[2021-07-16] MEDS ORDERED: ALBUTEROL HFA 8 GM INHALER INH PRN (22:25)
[2021-07-16] MEDS ORDERED: SODIUM CHLORIDE 0.9% 1000ML 1,000 ML IV SCH (22:25)
[2021-07-16] MEDS ORDERED: ONDANSETRON INJ 2 MG/ML 2 ML VIAL IV PRN (22:25)
[2021-07-16] MEDS ORDERED: MAGNESIUM HYDROXIDE SUSP 30 ML UDC PO PRN (22:25)
[2021-07-16] MEDS ORDERED: GLUCOSE 10 TABS/TUBE PO PRN (22:25)
[2021-07-16] MEDS ORDERED: GLUCAGON FOR INJ 1 MG VIAL SQ PRN (22:25)
[2021-07-16] MEDS ORDERED: ALUMINUM/MAGNESIUM SUSP 30 ML UDC PO PRN (22:25)
[2021-07-16] MEDS ORDERED: DEXTROSE 50% 50 ML SYRINGE IV PRN (22:25)
[2021-07-16] MEDS: PANTOprazole 40 MG TAB PO SCH (23:06)
[2021-07-16] MEDS: SENNA 8.6 MG TAB PO SCH (23:06)
[2021-07-16] MEDS: METOPROLOL SUCC 25MG EXT REL TAB PO SCH (23:06)
[2021-07-16] MEDS: ATORVASTATIN 40 MG TAB PO SCH (23:07)
[2021-07-16] MEDS: LIDOCAINE 5% 1 PATCH TD SCH (23:09)
[2021-07-17] MEDS: oxyCODONE HCL IR 5 MG TAB (IMMEDIATE RELEASE) PO PRN (00:11)
[2021-07-17] MEDS: INSULIN GLARGINE SOLOSTAR 100 UNITS/ML 3 ML PEN SC SCH ×2 (00:15→20:41)
[2021-07-17] MEDS: INSULIN ASPART PER UNIT SC SCH ×5 (00:15→20:41)
[2021-07-17 06:52] LABS: Basophils # (auto) 0.07 K/uL (0-0.2); Basophils % (auto) 0.6 %; Eosinophils # (auto) 0.79 K/uL (0-0.5); Eosinophils % (auto) 7.2 %; Hemoglobin 11.7 g/dL (14.0-18.0); Immature Granulocytes # (auto) 0.05 K/uL (0.00-0.02); Immature Granulocytes % (auto) 0.5 %; Lymphocytes # (auto) 2.36 K/uL (1.2-3.4); Lymphocytes % (auto) 21.6 %; Mean Corpuscular Hemoglobin 30.3 pg (25-34); Mean Corpuscular Hgb Conc 32.5 g/dL (32-36); Mean Corpuscular Volume 93.3 fL (80-100); Mean Platelet Volume 10.1 fL (7.4-10.4); Monocytes # (auto) 1.85 K/uL (0.11-0.59); Monocytes % (auto) 16.9 %; Neutrophils # (auto) 5.83 K/uL (1.4-6.5); Neutrophils % (auto) 53.2 %; Platelet Count 303 K/uL (130-400); RDW Coefficient of Variation 15.7 % (11.5-14.5); RDW Standard Deviation 53.6 fL (36.4-46.3); Red Blood Count 3.86 M/uL (4.7-6.1); White Blood Count 10.95 K/uL (4.8-10.8)
[2021-07-17 07:14] LABS: Estimated Average Glucose 200 mg/dl; Hemoglobin A1C 8.6 % (4.5-5.6)
[2021-07-17 07:17] LABS: INR 2.4 (0.9-1.1); Prothrombin Time 22.9 Seconds (9.0-12.0)
[2021-07-17 07:22] LABS: Albumin Globulin Ratio 0.6 (0.9-2); BUN Creatinine Ratio 18.6 (10-20); Bilirubin,Total 0.7 mg/dl (0.2-1.0); Calcium 8.7 mg/dl (8.5-10.1); Creatinine Clr Calc Pharmacy 67.7 ml/min; Est GFR (Non-African American) 78.5 ml/min; Globulin 4.7 gm/dl (2.5-4.0); Magnesium 1.7 mg/dl (1.7-2.4); Potassium 4.2 mmol/L (3.5-5.1); Total Protein 7.7 gm/dl (6.0-8.3)
[2021-07-17] MEDS: amLODIPine BESYLATE 5 MG TAB PO SCH (11:20)
[2021-07-17] MEDS: CHOLECALCIFEROL 1,000 UNITS 25 MCG TAB PO SCH (11:20)
[2021-07-17] MEDS: ASPIRIN 81 MG ECTAB PO SCH (11:20)
[2021-07-17] MEDS: ISOSORBIDE MONO EXTENDED REL 60 MG TABCR PO SCH (11:20)
[2021-07-17] MEDS: FUROSEMIDE 40 MG TAB PO SCH (11:20)
[2021-07-17] MEDS: LOSARTAN POTASSIUM 50 MG TAB PO SCH (11:21)
[2021-07-17] MEDS: METOPROLOL SUCC 25MG EXT REL TAB PO SCH ×2 (11:21→20:42)
[2021-07-17] MEDS: ACETAMINOPHEN 500 MG TAB PO SCH ×4 (11:26→20:40)
--- NOTE | 2021-07-17 11:55 | Electrocardiogram Report ---
Test Reason : Blood Pressure : / mmHG Vent. Rate : 069 BPM Atrial Rate : 030 BPM P-R Int : 000 ms QRS Dur : 162 ms QT Int : 466 ms P-R-T Axes : 000 -55 204 degrees QTc Int : 499 ms Poor data quality, interpretation may be adversely affected Atrial fibrillation with frequent ventricular-paced complexes Left axis deviation Left bundle branch block Abnormal ECG When compared with ECG of 26-JUN-2021 18:34, Premature ventricular complexes are no longer Present Vent. rate has increased BY 6 BPM Confirmed by Chidi Eason ([id number]) on 07/17/2021 11:54:53 AM Referred By: [facility] Confirmed By:Jayson Eason
--- NOTE | 2021-07-17 13:59 | Orthopedic Consultation ---
Date of Consultation July 17, 2021 Assessment & Plan (1) Burst fracture of lumbar vertebra: Assessment L1 burst fracture. Plan had discussion with this patient's daughter who has power of senior trial attorney of his medical affairs. I emphasized that this fracture was inherently unstable and there would be concerns of further collapse and perhaps neurologic damage. However any surgical invention would place him at risk for not only the inherent risks of surgery but worsening of his underlying dementia. This point we both agreed attempting a trial of a TLSO brace throughout the weekend is warranted. I do have concerns of him being able to tolerate the brace and understanding its purpose. He continues to have pain or is unable to tolerate the brace we may consider surgical invention. This could range anywhere from it L1 kyphoplasty to a kyphoplasty with instrumented fusion T12-L2. History of Present Illness Reason for Consultation: L1 burst fracture Attending Physician: Yogesh Ring MD History of Present Illness This is an 86-year-old demented male who presents with worsening back pain he has undergone several falls recently and has been diagnosed yesterday with an L1 burst fracture. The patient has fairly advanced dementia and does not recall any specifics to his back or any injury. He does deny any numbness or tingling in the legs or any leg pain. Allergies Allergy/AdvReac Type Severity Reaction Status Date / Time Penicillins Allergy Intermediate HIVES Verified 07/16/21 15:24 clopidogrel Allergy Mild INTERNAL Verified 07/16/21 15:24 HIVES Home Medications Medication Instructions Recorded Confirmed Type amlodipine 5 mg tablet 5 mg PO DAILY 09/04/18 07/16/21 History aspirin 81 mg tablet,delayed 81 mg PO QAM 09/04/18 07/16/21 History release atorvastatin 40 mg tablet 40 mg PO PM 09/04/18 07/16/21 History cholecalciferol (vitamin D3) 25 1,000 unit PO QAM 09/04/18 07/16/21 History mcg (1,000 unit) capsule (Vitamin D3) insulin glargine 100 unit/mL (3 12 units SUBCUT DAILY 09/04/18 07/16/21 History mL) subcutaneous pen (Lantus Solostar U-100 Insulin) isosorbide mononitrate 60 mg 60 mg PO QAM 09/04/18 07/16/21 History tablet,extended release 24 hr losartan 50 mg tablet 50 mg PO QAM 09/04/18 07/16/21 History metoprolol succinate 50 mg 75 mg PO BID 09/04/18 07/16/21 History tablet,extended release 24 hr nitroglycerin 0.4 mg sublingual 0.4 mg SUBLINGUAL UD PRN 09/04/18 07/16/21 History tablet (Nitrostat) pantoprazole 40 mg tablet,delayed 40 mg PO PM 09/04/18 07/16/21 History release polyethylene glycol 3350 17 gram 17 g PO BID PRN 09/04/18 07/16/21 History oral powder packet warfarin 2.5 mg tablet 2.5 mg PO DAILY 09/04/18 07/16/21 History clindamycin HCl 300 mg capsule 600 mg PO ONCE PRN 09/25/20 07/16/21 History acetaminophen 325 mg tablet 650 mg PO Q6H PRN MDD 3G 06/24/21 07/16/21 History (Tylenol) albuterol sulfate 90 mcg/actuation 2 puff INHALATION Q6H PRN 06/24/21 07/16/21 History aerosol inhaler furosemide 40 mg tablet 40 mg PO DAILY 06/24/21 07/16/21 History lidocaine HCl 4 % topical cream 1 applic TOPICAL Q6H PRN 06/24/21 07/16/21 History (Aspercreme (lidocaine HCl)) loperamide 2 mg capsule 2 mg PO UD PRN MDD 4 CAPS 06/24/21 07/16/21 History sennosides 8.6 mg tablet (Senokot) 8.6 - 17.2 mg PO HS PRN 06/24/21 07/16/21 History calcium carbonate 300 mg (750 mg) 1,500 mg PO TID PRN 06/26/21 07/16/21 History chewable tablet (Antacid Extra Strength (calcium carb)) insulin aspart U-100 100 unit/mL 4 unit SC 1130,1630,2100 07/16/21 07/16/21 History subcutaneous solution (Novolog U-100 Insulin aspart) Patient History Medical History (Updated 07/16/21 @ 22:19 by Todd Rojas MD) ACS (acute coronary syndrome) CAD (coronary artery disease) Chronic anticoagulation DM type 2 (diabetes mellitus, type 2) Dyslipidemia Dyspnea on exertion Gout History of cerebral hemorrhage HTN (hypertension) Pacemaker Pancreatic cancer Paroxysmal atrial fibrillation Sinus node dysfunction SSS (sick sinus syndrome) Surgical History H/O arthroscopic knee surgery H/O colonoscopy H/O esophagogastroduodenoscopy H/O inguinal hernia repair History of pancreatectomy "07/15/2010 Dr. Pacheco [facility] [place] " S/P CABG x 1 S/P coronary artery stent placement "03/29/03 cardiac cath: RCA - stent of 90% lesion, L circ obtuse kenneth - stent of 80% lesion " S/P splenectomy S/P tonsillectomy and adenoidectomy Family History Other Family history non-contributory Social History Smoking Status: Never smoker Tobacco Type: Cigarettes Hx Alcohol Use: Yes (will not say) Alcohol type: beer and hard liquor Hx Substance Use: No Preferred Language: Indonesian Communication Ability: Effective Manager Marketing Communications Required: No Beliefs That Will Affect Care: None marital status: / Current Living Situation: Personal Care Facility and Other Current Living Situation Comment: Assisted living current occupational status: retired How many Children do You have: 3 Other Information That Helps Us Care for You: No Feels Safe at Home: Declines to Answer Assistive Devices: Walker Physical Exam Physical Exam: On exam he is alert. Is not aware of place or time. He does not know why is in the hospital. He does exhibit plantarflexion dorsiflexion bilaterally. He is sensory intact. Results & Data ([facility]) Vital Signs (Past 12 Hours) Vital Signs Temp Pulse Pulse Resp BP Pulse Ox 07/17/21 11:32 36.6 C 92 H 20 148/69 H 98 07/17/21 11:20 68 07/17/21 08:00 63 07/17/21 07:34 36.3 C L 52 L 16 143/71 H 93 07/17/21 04:04 36.4 C L 76 20 165/70 H 93 07/17/21 02:48 68 (1) Burst fracture of lumbar vertebra Encounter type: initial encounter Fracture type: closed Qualified Code(s): S32.001A - Stable burst fracture of unspecified lumbar vertebra, initial encounter for closed fracture
[2021-07-17] MEDS: ACETAMINOPHEN 325 MG TAB PO PRN (14:23)
--- NOTE | 2021-07-17 16:55 | Hospitalist Progress Note ---
Date of Service July 17, 2021 Assessment & Plan (1) Burst fracture of lumbar vertebra: (2) Back pain: (3) Paroxysmal atrial fibrillation: (4) DM type 2 (diabetes mellitus, type 2): (5) CAD (coronary artery disease): (6) HTN (hypertension): Plan: Patent is an 86 yr male with H/O CAD with history of CABG and stents, HTN, HLD, insulin-dependent diabetes, CHF, sinus node dysfunction status post permanent pacemaker, history of splenectomy, gout, dementia, history of pancreatic cancer, history of intracerebral hemorrhage who presents to ED with complaints of back pain times several weeks. Burst fracture of lumbar vertebra L1 Secondary to Frequent falls Minimally displaced fracture at sacrococcygeal junction --Lumbar TC: Acute L1 burst fracture with 25% loss of vertebral body height and disruption of the posterior cortex. Fracture extends into the anterior aspects of the bilateral pedicles. Moderate to severe multilevel degenerative changes within the lumbar spine. --TLSO brace trial --PT/OT when appropriate --Appreciate Orthopedics Input -Pain control CAD with history of CABG CHF HTN Sinus node dysfunction S/P pacemaker Continue aspirin, statin, Imdur, Lasix, metoprolol, losartan Patient denies chest pain or shortness of breath Daily weights, strict I's and O's PAF Metoprolol for rate control Continue Warfarin for anticoagulation Monitor INR: 2.4 DM II HbA1c 9.0 on 06/27/21 lantus/novolog per protocol Leukocytosis Likely reactive No obvious source of infection monitor Dementia mood stable DVT px: Warfarin Code Status Full Code Disposition: To be determined Admission and Anticipated Discharge Date Admission Date: July 16, 2021 Subjective Patient is seen and examined at bedside States having lower back pain with minimal movement Denies any chest pain, shortness of breath, dizziness, nausea, abdominal pain Offers no other complaints Review of Systems Review of Systems: All systems reviewed & are unremarkable except as noted in Subjective Physical Exam Physical Exam: Patient refused Results & Data Results & Data ([facility]) Vital Signs (Past 12 Hours) Vital Signs Temp Pulse Pulse Resp BP Pulse Ox 07/17/21 15:10 36.9 C 72 18 129/73 92 07/17/21 14:59 70 07/17/21 11:32 36.6 C 92 H 20 148/69 H 98 07/17/21 11:20 68 07/17/21 08:00 63 07/17/21 07:34 36.3 C L 52 L 16 143/71 H 93 (1) Burst fracture of lumbar vertebra Encounter type: initial encounter Fracture type: closed Qualified Code(s): S32.001A - Stable burst fracture of unspecified lumbar vertebra, initial encounter for closed fracture
[2021-07-17] MEDS: WARFARIN SOD 2 MG TAB PO SCH (17:59)
[2021-07-17] MEDS: traMADol HCL 50 MG TABLET PO PRN (18:14)
[2021-07-17] MEDS: ATORVASTATIN 40 MG TAB PO SCH (20:40)
[2021-07-17] MEDS: LIDOCAINE 5% 1 PATCH TD SCH (20:42)
[2021-07-17] MEDS: PANTOprazole 40 MG TAB PO SCH (20:43)
[2021-07-17] MEDS: SENNA 8.6 MG TAB PO SCH (20:44)
--- NOTE | 2021-07-18 04:40 | Communication Note ---
Date of Service: July 18, 2021 Patient with blood in Cherry catheter secondary to patient tugging as per RN. No abdominal pain complaints. Hold aspirin and Coumadin until a.m. labs back.
[2021-07-18] MEDS: INSULIN ASPART PER UNIT SC SCH ×4 (08:19→20:53)
[2021-07-18] MEDS: ACETAMINOPHEN 500 MG TAB PO SCH ×4 (08:20→20:50)
[2021-07-18] MEDS: CHOLECALCIFEROL 1,000 UNITS 25 MCG TAB PO SCH (08:21)
[2021-07-18] MEDS: FUROSEMIDE 40 MG TAB PO SCH (08:21)
[2021-07-18] MEDS: amLODIPine BESYLATE 5 MG TAB PO SCH (08:21)
[2021-07-18] MEDS: LOSARTAN POTASSIUM 50 MG TAB PO SCH (08:22)
[2021-07-18] MEDS: ISOSORBIDE MONO EXTENDED REL 60 MG TABCR PO SCH (08:22)
[2021-07-18] MEDS: METOPROLOL SUCC 25MG EXT REL TAB PO SCH ×2 (08:25→20:54)
[2021-07-18 09:32] LABS: Basophils # (auto) 0.05 K/uL (0-0.2); Basophils % (auto) 0.4 %; Eosinophils # (auto) 0.53 K/uL (0-0.5); Eosinophils % (auto) 4.7 %; Hematocrit (blood only) 35.2 % (42-52); Hemoglobin 11.4 g/dL (14.0-18.0); Immature Granulocytes # (auto) 0.04 K/uL (0.00-0.02); Immature Granulocytes % (auto) 0.4 %; Lymphocytes # (auto) 1.88 K/uL (1.2-3.4); Lymphocytes % (auto) 16.6 %; Mean Corpuscular Hemoglobin 30.2 pg (25-34); Mean Corpuscular Hgb Conc 32.4 g/dL (32-36); Mean Corpuscular Volume 93.4 fL (80-100); Mean Platelet Volume 10.7 fL (7.4-10.4); Monocytes # (auto) 1.77 K/uL (0.11-0.59); Monocytes % (auto) 15.7 %; Neutrophils # (auto) 7.03 K/uL (1.4-6.5); Neutrophils % (auto) 62.2 %; Platelet Count 301 K/uL (130-400); RDW Coefficient of Variation 15.5 % (11.5-14.5); RDW Standard Deviation 53.1 fL (36.4-46.3); Red Blood Count 3.77 M/uL (4.7-6.1)
[2021-07-18 09:41] LABS: INR 2.7 (0.9-1.1); Prothrombin Time 25.5 Seconds (9.0-12.0)
[2021-07-18 09:55] LABS: BUN Creatinine Ratio 23.9 (10-20); Calcium 8.2 mg/dl (8.5-10.1); Creatinine Clr Calc Pharmacy 63.3 ml/min
[2021-07-18] MEDS ORDERED: VANCOMYCIN CONSULT ACTIVE PRN (12:04)
[2021-07-18] MEDS ORDERED: VANCOMYCIN HCL 2,000 MG in SODIUM CHLORIDE 0.9% 500 ML IV STA (12:09)
[2021-07-18] MEDS: traMADol HCL 50 MG TABLET PO PRN (12:37)
--- NOTE | 2021-07-18 15:08 | Pharmacy Report ---
Pharmacy Abx Initial Consult - Date of Service July 18, 2021 - Pharmacy Dosing Scope Date of Consult: 07/18/21 Consultation requested by: Pharmacy is consulted to initiate Vancomycin IV dosing therapy, order appropriate labs and adjust drug dose/frequency. - Subjective The patient is a 86 year old M admitted on 07/16/21 17:57. - Objective Height: 6 ft Weight: 87.2 kg Vital Signs (Past 12hrs): Vital Signs Temp Pulse Pulse Pulse Resp BP BP 07/18/21 12:48 36.5 C 70 18 115/67 07/18/21 12:40 59 L 07/18/21 08:23 72 07/18/21 08:10 36.1 C L 51 L 20 148/88 H 07/18/21 07:32 63 07/18/21 04:03 37 C 74 18 113/64 Pulse Ox 07/18/21 12:48 94 07/18/21 12:40 07/18/21 08:23 07/18/21 08:10 93 07/18/21 07:32 07/18/21 04:03 93 Lab Results (24hrs): Laboratory Tests (24 Hours) 07/18/21 07/18/21 08:48 08:48 WBC 11.30 H Neut # (Auto) 7.03 H Creatinine 0.92 Est Cr Clr Drug Dosing 63.3 Micro Results: 07/18/21 11:35 Urine Culture - Pending Urine,Clean Catch 07/16/21 14:37 Urine Culture - Final Urine,Straight Cath Staph aureus MRSA 07/18/21 10:37 Aerobic Blood Culture - Pending Blood Anaerobic Blood Culture - Pending 07/18/21 10:29 Aerobic Blood Culture - Pending Blood Anaerobic Blood Culture - Pending - Assessment & Plan Assessment 86 year old M admitted with a lumbar fracture. Possible surgical intervention on Tuesday, 07/20. Urine culture from 07/16 growing MRSA. Renal function at baseline. Afebrile. WBCs 11.3 this AM. Blood cultures and repeat urine cultures pending. Plan Vancomycin IV * AUC/KRISTA is the preferred PK/PD target for vancomycin * AUC guided dosing is effective and associated with decreased risk of nephrotoxicity compared to traditional trough targets * Loading dose: 2g (23 mg/kg) IV x1 followed by a maintenance dose of 750mg IV q12h * This dosing regimen is predicted to achieve target AUC/KRISTA of 400-600 mg/L.hr and may be associated with a 13% risk of nephrotoxicity * Trough ordered for 07/20 at 1130 Pharmacy will continue to follow and will adjust dose/frequency as necessary. Thank you.
--- NOTE | 2021-07-18 15:53 | Hospitalist Progress Note ---
Date of Service July 18, 2021 Assessment & Plan (1) Burst fracture of lumbar vertebra: (2) Back pain: (3) Paroxysmal atrial fibrillation: (4) DM type 2 (diabetes mellitus, type 2): (5) CAD (coronary artery disease): (6) HTN (hypertension): Plan: Patent is an 86 yr male with H/O CAD with history of CABG and stents, HTN, HLD, insulin-dependent diabetes, CHF, sinus node dysfunction status post permanent pacemaker, history of splenectomy, gout, dementia, history of pancreatic cancer, history of intracerebral hemorrhage who presents to ED with complaints of back pain times several weeks. Burst fracture of lumbar vertebra L1 Secondary to Frequent falls Minimally displaced fracture at sacrococcygeal junction --Lumbar TC: Acute L1 burst fracture with 25% loss of vertebral body height and disruption of the posterior cortex. Fracture extends into the anterior aspects of the bilateral pedicles. Moderate to severe multilevel degenerative changes within the lumbar spine. --TLSO brace trial --PT/OT when appropriate --Appreciate Orthopedics Input -Pain control UTI Urine culture growing MRSA Blood cultures pending Repeat Urine culture pending Started on Vancomycin Hematuria Secondary to tugging of camejo catheter Aspirin, Coumadin held Monitor CBC CAD with history of CABG CHF HTN Sinus node dysfunction S/P pacemaker Continue statin, Imdur, Lasix, metoprolol, losartan Patient denies chest pain or shortness of breath Daily weights, strict I's and O's Aspirin held due to hematuria PAF Metoprolol for rate control On Warfarin for anticoagulation Monitor INR: 2.7 Hold warfarin for today given hematuria DM II HbA1c 9.0 on 06/27/21 lantus/novolog per protocol Dementia mood stable DVT px: Warfarin held: Re: Hematuria INR therapeutic Code Status Full Code Disposition: To be determined Admission and Anticipated Discharge Date Admission Date: July 16, 2021 Subjective Patient is seen and examined at bedside States having back pain Developed hematuria due to pulling catheter Aspirin, Coumadin on hold Denies any chest pain, shortness of breath, dizziness, nausea, abdominal pain Offers no other complaints Review of Systems Review of Systems: All systems reviewed & are unremarkable except as noted in Subjective Physical Exam Physical Exam: Physical Exam: Vitals signs as noted above General Appearance:Moderately built and nourished, no apparent distress Head: normocephalic, Atraumatic Eyes: normal inspection, EOMI Neck: supple, Trachea midline Respiratory/Chest: Normal breath sounds, CTA, No accessory muscle use Cardiovascular: Irregularly irregular, No murmur Abdomen/GI:Soft, Non tender, Bowel sounds present Back: Lower back maker Extremities/Musculoskeletal:normal inspection, no edema Neurologic/Psych:Alert, awake, grossly no focal neurological deficits Skin: normal color, warm, Multiple healing scabbed wounds on LE Results & Data Results & Data ([facility]) Vital Signs (Past 12 Hours) Vital Signs Temp Pulse Pulse Pulse Resp BP BP 07/18/21 14:58 36.4 C L 67 16 128/60 07/18/21 12:48 36.5 C 70 18 115/67 07/18/21 12:40 59 L 07/18/21 08:23 72 07/18/21 08:10 36.1 C L 51 L 20 148/88 H 07/18/21 07:32 63 07/18/21 04:03 37 C 74 18 113/64 Pulse Ox 07/18/21 14:58 95 07/18/21 12:48 94 07/18/21 12:40 07/18/21 08:23 07/18/21 08:10 93 07/18/21 07:32 07/18/21 04:03 93 Laboratory Results Short CBC 07/18/21 Range/Units 08:48 WBC 11.30 H (4.8-10.8) K/uL Hgb 11.4 L (14.0-18.0) g/dL Hct 35.2 L (42-52) % Plt Count 301 (130-400) K/uL BMP 07/18/21 08:48 Sodium 133 L Potassium 4.0 Chloride 100 Carbon Dioxide 26 BUN 22 Creatinine 0.92 Glucose 156 H Calcium 8.2 L (1) Burst fracture of lumbar vertebra Encounter type: initial encounter Fracture type: closed Qualified Code(s): S32.001A - Stable burst fracture of unspecified lumbar vertebra, initial encounter for closed fracture
[2021-07-18] MEDS: ATORVASTATIN 40 MG TAB PO SCH (20:52)
[2021-07-18] MEDS: LIDOCAINE 5% 1 PATCH TD SCH (20:54)
[2021-07-18] MEDS: INSULIN GLARGINE SOLOSTAR 100 UNITS/ML 3 ML PEN SC SCH (20:54)
[2021-07-18] MEDS: SENNA 8.6 MG TAB PO SCH (20:55)
[2021-07-18] MEDS: PANTOprazole 40 MG TAB PO SCH (20:56)
[2021-07-18] MEDS: VANCOMYCIN HCL 750 MG in SODIUM CHLORIDE 0.9% 250 ML IV SCH (23:21)
[2021-07-19] MEDS: LOSARTAN POTASSIUM 50 MG TAB PO SCH (08:53)
[2021-07-19] MEDS: amLODIPine BESYLATE 5 MG TAB PO SCH (08:53)
[2021-07-19] MEDS: FUROSEMIDE 40 MG TAB PO SCH (08:53)
[2021-07-19] MEDS: ISOSORBIDE MONO EXTENDED REL 60 MG TABCR PO SCH (08:54)
[2021-07-19] MEDS: CHOLECALCIFEROL 1,000 UNITS 25 MCG TAB PO SCH (08:54)
[2021-07-19] MEDS: METOPROLOL SUCC 25MG EXT REL TAB PO SCH ×2 (08:55→20:44)
[2021-07-19] MEDS: ACETAMINOPHEN 500 MG TAB PO SCH ×4 (08:59→20:42)
[2021-07-19] MEDS: INSULIN ASPART PER UNIT SC SCH ×4 (09:04→20:42)
[2021-07-19 09:22] LABS: Hematocrit (blood only) 37.2 % (42-52); Hemoglobin 12.2 g/dL (14.0-18.0); Mean Corpuscular Hemoglobin 30.6 pg (25-34); Mean Corpuscular Hgb Conc 32.8 g/dL (32-36); Mean Corpuscular Volume 93.2 fL (80-100); Mean Platelet Volume 10.2 fL (7.4-10.4); Platelet Count 312 K/uL (130-400); RDW Coefficient of Variation 15.3 % (11.5-14.5); Red Blood Count 3.99 M/uL (4.7-6.1); White Blood Count 9.77 K/uL (4.8-10.8)
[2021-07-19 09:29] LABS: INR 2.7 (0.9-1.1); Prothrombin Time 25.6 Seconds (9.0-12.0)
[2021-07-19 09:40] LABS: Calcium 8.7 mg/dl (8.5-10.1); Creatinine Clr Calc Pharmacy 66.9 ml/min; Est GFR (African American) 90.6 ml/min; Est GFR (Non-African American) 78.1 ml/min; Potassium 4.1 mmol/L (3.5-5.1)
[2021-07-19] MEDS ORDERED: MICONAZOLE NITRATE POWDER 43 GM EXT PRN (12:32)
[2021-07-19] MEDS: VANCOMYCIN HCL 750 MG in SODIUM CHLORIDE 0.9% 250 ML IV SCH ×2 (12:45→23:46)
[2021-07-19] MEDS: POLYETHYLENE (MIRALAX) 17 GM PACK PO PRN (18:43)
[2021-07-19] MEDS: oxyCODONE HCL IR 5 MG TAB (IMMEDIATE RELEASE) PO PRN (19:50)
--- NOTE | 2021-07-19 19:54 | Hospitalist Progress Note ---
Date of Service July 19, 2021 Assessment & Plan (1) Burst fracture of lumbar vertebra: (2) Back pain: (3) Paroxysmal atrial fibrillation: (4) DM type 2 (diabetes mellitus, type 2): (5) CAD (coronary artery disease): (6) HTN (hypertension): Plan: Patent is an 86 yr male with H/O CAD with history of CABG and stents, HTN, HLD, insulin-dependent diabetes, CHF, sinus node dysfunction status post permanent pacemaker, history of splenectomy, gout, dementia, history of pancreatic cancer, history of intracerebral hemorrhage who presents to ED with complaints of back pain times several weeks. Burst fracture of lumbar vertebra L1 Secondary to Frequent falls Minimally displaced fracture at sacrococcygeal junction --Lumbar TC: Acute L1 burst fracture with 25% loss of vertebral body height and disruption of the posterior cortex. Fracture extends into the anterior aspects of the bilateral pedicles. Moderate to severe multilevel degenerative changes within the lumbar spine. --TLSO brace trial --PT/OT when appropriate --Appreciate Orthopedics Input -Pain control Orthotics to arrange brace as able UTI Urine culture growing MRSA Blood cultures Negative Repeat Urine culture: Staph species Continue Vancomycin Hematuria Secondary to tugging of camejo catheter Coumadin held Monitor CBC Hematuria resolved CAD with history of CABG CHF HTN Sinus node dysfunction S/P pacemaker Continue statin, Imdur, Lasix, metoprolol, losartan Patient denies chest pain or shortness of breath Daily weights, strict I's and O's Resume Aspirin tomorrow PAF Metoprolol for rate control On Warfarin for anticoagulation Monitor INR: 2.7 Hold warfarin for today DM II HbA1c 9.0 on 06/27/21 lantus/novolog per protocol Dementia mood stable DVT px: Warfarin held: Re: Hematuria INR therapeutic Code Status Full Code Disposition: To be determined Admission and Anticipated Discharge Date Admission Date: July 16, 2021 Subjective Patient is seen and examined at bedside Hematuria much improved Continues to have back pain Brace could not be arranged over the weekend No new complaints Denies any chest pain, shortness of breath, dizziness, nausea, abdominal pain Review of Systems Review of Systems: All systems reviewed & are unremarkable except as noted in Subjective Physical Exam Physical Exam: Physical Exam: Vitals signs as noted above General Appearance:Moderately built and nourished, no apparent distress Head: normocephalic, Atraumatic Eyes: normal inspection, EOMI Neck: supple, Trachea midline Respiratory/Chest: Normal breath sounds, CTA, No accessory muscle use Cardiovascular: Irregularly irregular, No murmur Abdomen/GI:Soft, Non tender, Bowel sounds present 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 Extremities/Musculoskeletal:normal inspection, no edema Neurologic/Psych:Alert, awake, grossly no focal neurological deficits Skin: normal color, warm, Multiple healing scabbed wounds on LE Results & Data Results & Data ([facility]) Vital Signs (Past 12 Hours) Vital Signs Temp Pulse Pulse Resp BP BP Pulse Ox 07/19/21 18:38 36.7 C 72 20 108/55 L 92 07/19/21 16:45 36.5 C 67 18 123/64 95 07/19/21 14:20 73 07/19/21 12:11 35.7 C L 59 L 20 124/74 93 07/19/21 08:55 68 125/79 07/19/21 08:20 36.7 C 41 L 20 159/74 H 94 Laboratory Results Short CBC 07/19/21 Range/Units 08:40 WBC 9.77 (4.8-10.8) K/uL Hgb 12.2 L (14.0-18.0) g/dL Hct 37.2 L (42-52) % Plt Count 312 (130-400) K/uL BMP 07/19/21 08:40 Sodium 135 L Potassium 4.1 Chloride 101 Carbon Dioxide 25 BUN 20 Creatinine 0.87 Glucose 170 H Calcium 8.7 (1) Burst fracture of lumbar vertebra Encounter type: initial encounter Fracture type: closed Qualified Code(s): S32.001A - Stable burst fracture of unspecified lumbar vertebra, initial encounter for closed fracture
[2021-07-19] MEDS: ATORVASTATIN 40 MG TAB PO SCH (20:42)
[2021-07-19] MEDS: LIDOCAINE 5% 1 PATCH TD SCH (20:43)
[2021-07-19] MEDS: INSULIN GLARGINE SOLOSTAR 100 UNITS/ML 3 ML PEN SC SCH (20:43)
[2021-07-19] MEDS: PANTOprazole 40 MG TAB PO SCH (20:44)
[2021-07-19] MEDS: SENNA 8.6 MG TAB PO SCH (20:44)
[2021-07-20] MEDS: INSULIN ASPART PER UNIT SC SCH ×4 (09:36→21:56)
[2021-07-20] MEDS: ISOSORBIDE MONO EXTENDED REL 60 MG TABCR PO SCH (09:37)
[2021-07-20] MEDS: ASPIRIN 81 MG ECTAB PO SCH (09:37)
[2021-07-20] MEDS: amLODIPine BESYLATE 5 MG TAB PO SCH (09:37)
[2021-07-20] MEDS: METOPROLOL SUCC 25MG EXT REL TAB PO SCH ×2 (09:37→21:46)
[2021-07-20] MEDS: CHOLECALCIFEROL 1,000 UNITS 25 MCG TAB PO SCH (09:37)
[2021-07-20] MEDS: LOSARTAN POTASSIUM 50 MG TAB PO SCH (09:37)
[2021-07-20] MEDS: FUROSEMIDE 40 MG TAB PO SCH (09:37)
[2021-07-20] MEDS: ACETAMINOPHEN 325 MG TAB PO PRN (09:48)
[2021-07-20] MEDS: ACETAMINOPHEN 500 MG TAB PO SCH ×4 (09:48→21:45)
[2021-07-20 11:25] LABS: Hematocrit (blood only) 34.5 % (42-52); Hemoglobin 11.3 g/dL (14.0-18.0); Mean Corpuscular Hemoglobin 30.3 pg (25-34); Mean Corpuscular Hgb Conc 32.8 g/dL (32-36); Mean Corpuscular Volume 92.5 fL (80-100); Mean Platelet Volume 10.1 fL (7.4-10.4); Platelet Count 319 K/uL (130-400); RDW Coefficient of Variation 15.4 % (11.5-14.5); RDW Standard Deviation 52.3 fL (36.4-46.3); Red Blood Count 3.73 M/uL (4.7-6.1)
[2021-07-20] MEDS ORDERED: VANCOMYCIN TROUGH ONE (11:30)
[2021-07-20 11:50] LABS: INR 1.9 (0.9-1.1); Prothrombin Time 18.3 Seconds (9.0-12.0)
[2021-07-20 11:51] LABS: BUN Creatinine Ratio 19.2 (10-20); Calcium 9.2 mg/dl (8.5-10.1); Creatinine Clr Calc Pharmacy 58.8 ml/min; Est GFR (African American) 79.6 ml/min; Est GFR (Non-African American) 68.7 ml/min; Potassium 4.2 mmol/L (3.5-5.1)
--- NOTE | 2021-07-20 12:38 | Pharmacy Report ---
Pharmacy Vanc AUC Short Note - Date of Service July 20, 2021 - Assessment & Plan Assessment 86 year old M receiving vancomycin for treatment of MRSA UTI. Pertinent microbiologic data includes: urine culture growing MRSA (on 07/16 and 07/18). Day # 3 of antimicrobial therapy. Plan Vancomycin * AUC/KRISTA is the preferred PK/PD target for vancomycin * AUC guided dosing is effective and associated with decreased risk of nephrotoxicity compared to traditional trough targets * Trough level of 13 mcg/mL is predicted to achieve target AUC/KRISTA of 400-600 mg/L.hr and may be associated with a 11 % risk of nephrotoxicity * Continue dose of 750 mg IV every 12 hours * Trough to be re-ordered based upon clinical picture Pharmacy will continue to follow and will adjust dose/frequency as necessary. Thank you.
[2021-07-20] MEDS: VANCOMYCIN HCL 750 MG in SODIUM CHLORIDE 0.9% 250 ML IV SCH ×2 (13:32→23:58)
[2021-07-20] MEDS: WARFARIN SOD 2 MG TAB PO SCH (17:28)
[2021-07-20] MEDS: traMADol HCL 50 MG TABLET PO PRN (17:29)
--- NOTE | 2021-07-20 17:36 | Hospitalist Progress Note ---
Date of Service July 20, 2021 Assessment & Plan (1) Burst fracture of lumbar vertebra: (2) Back pain: (3) Paroxysmal atrial fibrillation: (4) DM type 2 (diabetes mellitus, type 2): (5) CAD (coronary artery disease): (6) HTN (hypertension): Plan: Patent is an 86 yr male with H/O CAD with history of CABG and stents, HTN, HLD, insulin-dependent diabetes, CHF, sinus node dysfunction status post permanent pacemaker, history of splenectomy, gout, dementia, history of pancreatic cancer, history of intracerebral hemorrhage who presents to ED with complaints of back pain times several weeks. Burst fracture of lumbar vertebra L1 Secondary to Frequent falls Minimally displaced fracture at sacrococcygeal junction --Lumbar TC: Acute L1 burst fracture with 25% loss of vertebral body height and disruption of the posterior cortex. Fracture extends into the anterior aspects of the bilateral pedicles. Moderate to severe multilevel degenerative changes within the lumbar spine. --TLSO brace trial --PT/OT when appropriate --Appreciate Orthopedics Input -Pain control Orthotics to arrange brace If intolerant to brace, will likely need surgical intervention UTI Urine culture growing MRSA Blood cultures Negative Repeat Urine culture: MRSA Continue Vancomycin Hematuria Suspected Urethral injury from patient pulling on camejo Monitor CBC Hematuria resolved CAD with history of CABG CHF HTN Sinus node dysfunction S/P pacemaker Continue statin, Imdur, Lasix, metoprolol, losartan Patient denies chest pain or shortness of breath Daily weights, strict I's and O's Resumed Aspirin PAF Metoprolol for rate control On Warfarin for anticoagulation Monitor INR: 2.7>1.9 Resume warfarin today DM II HbA1c 9.0 on 06/27/21 lantus/novolog per protocol Dementia mood stable DVT px: Warfarin Code Status Full Code Disposition: To be determined Admission and Anticipated Discharge Date Admission Date: July 16, 2021 Subjective Patient is seen and examined at bedside Hematuria resolved Discussed with patient's son over the phone Reports back pain Patient refused brace as per patient's Son Denies any chest pain, shortness of breath, dizziness, nausea, abdominal pain Review of Systems Review of Systems: All systems reviewed & are unremarkable except as noted in Subjective Physical Exam Physical Exam: Physical Exam: Vitals signs as noted above General Appearance:Moderately built and nourished, no apparent distress Head: normocephalic, Atraumatic Eyes: normal inspection, EOMI Neck: supple, Trachea midline Respiratory/Chest: Normal breath sounds, CTA, No accessory muscle use Cardiovascular: Irregularly irregular, No murmur Abdomen/GI:Soft, Non tender, Bowel sounds present 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 Extremities/Musculoskeletal:normal inspection, no edema Neurologic/Psych:Alert, awake, grossly no focal neurological deficits Skin: normal color, warm, Multiple healing scabbed wounds on LE Results & Data Results & Data ([facility]) Vital Signs (Past 12 Hours) Vital Signs Temp Pulse Pulse Resp BP Pulse Ox 07/20/21 15:00 68 07/20/21 11:34 36.5 C 71 18 124/67 94 07/20/21 07:46 36.5 C 63 18 128/67 94 07/20/21 07:00 72 Laboratory Results Short CBC 07/20/21 Range/Units 11:11 WBC 9.40 (4.8-10.8) K/uL Hgb 11.3 L (14.0-18.0) g/dL Hct 34.5 L (42-52) % Plt Count 319 (130-400) K/uL [facility] 07/20/21 11:11 Sodium 136 Potassium 4.2 Chloride 104 Carbon Dioxide 25 BUN 19 Creatinine 0.99 Glucose 173 H Calcium 9.2 (1) Burst fracture of lumbar vertebra Encounter type: initial encounter Fracture type: closed Qualified Code(s): S32.001A - Stable burst fracture of unspecified lumbar vertebra, initial encounter for closed fracture
[2021-07-20] MEDS: ATORVASTATIN 40 MG TAB PO SCH (21:45)
[2021-07-20] MEDS: LIDOCAINE 5% 1 PATCH TD SCH (21:46)
[2021-07-20] MEDS: PANTOprazole 40 MG TAB PO SCH (21:47)
[2021-07-20] MEDS: SENNA 8.6 MG TAB PO SCH (21:48)
[2021-07-20] MEDS: INSULIN GLARGINE SOLOSTAR 100 UNITS/ML 3 ML PEN SC SCH (21:54)
[2021-07-21] MEDS: oxyCODONE HCL IR 5 MG TAB (IMMEDIATE RELEASE) PO PRN ×3 (00:02→22:00)
[2021-07-21 07:54] LABS: INR 1.6 (0.9-1.1)
[2021-07-21 08:13] LABS: Creatinine Clr Calc Pharmacy 60.6 ml/min; Est GFR (African American) 82.6 ml/min; Est GFR (Non-African American) 71.3 ml/min
[2021-07-21] MEDS: INSULIN ASPART PER UNIT SC SCH ×4 (08:54→21:54)
[2021-07-21] MEDS: ACETAMINOPHEN 500 MG TAB PO SCH ×4 (09:22→22:06)
[2021-07-21] MEDS: METOPROLOL SUCC 25MG EXT REL TAB PO SCH ×2 (09:22→21:57)
[2021-07-21] MEDS: amLODIPine BESYLATE 5 MG TAB PO SCH (09:23)
[2021-07-21] MEDS: FUROSEMIDE 40 MG TAB PO SCH (09:23)
[2021-07-21] MEDS: LOSARTAN POTASSIUM 50 MG TAB PO SCH (09:23)
[2021-07-21] MEDS: ISOSORBIDE MONO EXTENDED REL 60 MG TABCR PO SCH (09:23)
[2021-07-21] MEDS: ASPIRIN 81 MG ECTAB PO SCH (09:23)
[2021-07-21] MEDS: CHOLECALCIFEROL 1,000 UNITS 25 MCG TAB PO SCH (09:23)
[2021-07-21] MEDS: VANCOMYCIN HCL 750 MG in SODIUM CHLORIDE 0.9% 250 ML IV SCH ×2 (12:39→23:45)
--- NOTE | 2021-07-21 14:17 | Orthopedic Progress Note ---
Date of Service July 21, 2021 Assessment & Plan (1) Burst fracture of lumbar vertebra: Plan: Assessment L1 burst fracture. Plan at this time patient continues to have pain was unable to tolerate the LSO brace. I had a lengthy discussion this afternoon with his daughter regarding his fracture and treatment plan. Prolonged bedrest clearly is not ideal at his age and she understands there is risk of surgical intervention. At this point she is comfortable proceeding with an L1 kyphoplasty. I will make him n.p.o. after midnight. We will plan for tentative surgery tomorrow. Admission and Anticipated Discharge Date Admission Date: July 16, 2021 Subjective Patient continues to complain of back pain worse with activity. Denies any numbness or tingling in the legs. Denies any leg pain. Physical Exam Physical Exam: On exam is alert. He does not remember me. He is able to move his feet up and down without difficulty. His sensation is intact. Results & Data ([facility]) Vital Signs (Past 12 Hours) Vital Signs Temp Pulse Pulse Resp BP BP Pulse Ox 07/21/21 12:05 36.3 C L 61 20 119/67 92 07/21/21 09:24 65 146/78 H 07/21/21 08:20 36.4 C L 56 L 18 142/79 H 95 07/21/21 07:25 73 07/21/21 03:50 36.4 C L 75 20 146/71 H 95 (1) Burst fracture of lumbar vertebra Encounter type: initial encounter Fracture type: closed Qualified Code(s): S32.001A - Stable burst fracture of unspecified lumbar vertebra, initial encounter for closed fracture
[2021-07-21] MEDS ORDERED: WARFARIN SOD 3 MG TAB PO SCH (16:00)
--- NOTE | 2021-07-21 17:16 | Hospitalist Progress Note ---
Date of Service July 21, 2021 Assessment & Plan (1) Burst fracture of lumbar vertebra: (2) Back pain: (3) Paroxysmal atrial fibrillation: (4) DM type 2 (diabetes mellitus, type 2): (5) CAD (coronary artery disease): (6) HTN (hypertension): Plan: Patent is an 86 yr male with H/O CAD with history of CABG and stents, HTN, HLD, insulin-dependent diabetes, CHF, sinus node dysfunction status post permanent pacemaker, history of splenectomy, gout, dementia, history of pancreatic cancer, history of intracerebral hemorrhage who presents to ED with complaints of back pain times several weeks. Burst fracture of lumbar vertebra L1 Secondary to Frequent falls Minimally displaced fracture at sacrococcygeal junction --Lumbar TC: Acute L1 burst fracture with 25% loss of vertebral body height and disruption of the posterior cortex. Fracture extends into the anterior aspects of the bilateral pedicles. Moderate to severe multilevel degenerative changes within the lumbar spine. --TLSO brace trial --PT/OT when appropriate --Appreciate Orthopedics Input -Pain control Plan for L1 kyphoplasty tomorrow N.p.o. after midnight UTI Urine culture growing MRSA Blood cultures Negative Repeat Urine culture: MRSA Continue Vancomycin Hematuria Suspected Urethral injury from patient pulling on camejo Monitor CBC Hematuria resolved CAD with history of CABG CHF HTN Sinus node dysfunction S/P pacemaker Continue statin, Imdur, Lasix, metoprolol, losartan Patient denies chest pain or shortness of breath Daily weights, strict I's and O's Resumed Aspirin PAF Metoprolol for rate control On Warfarin for anticoagulation Monitor INR: 2.7>1.9>1.6 Hold warfarin as planned for surgery DM II HbA1c 9.0 on 06/27/21 lantus/novolog per protocol Dementia mood stable DVT px: Warfarin -held Heparin SQ for now Code Status Full Code Disposition: To be determined Admission and Anticipated Discharge Date Admission Date: July 16, 2021 Subjective Patient is seen and examined at bedside Continues to have low back pain Discussed with orthopedic surgery today Denies any chest pain, shortness of breath, dizziness, nausea, abdominal pain No new complaints Review of Systems Review of Systems: All systems reviewed & are unremarkable except as noted in Subjective Physical Exam Physical Exam: Physical Exam: Vitals signs as noted above General Appearance:Moderately built and nourished, no apparent distress Head: normocephalic, Atraumatic Eyes: normal inspection, EOMI Neck: supple, Trachea midline Respiratory/Chest: Normal breath sounds, CTA, No accessory muscle use Cardiovascular: Irregularly irregular, No murmur Abdomen/GI:Soft, Non tender, Bowel sounds present Back: Lower backshoe person Extremities/Musculoskeletal:normal inspection, no edema Neurologic/Psych:Alert, awake, grossly no focal neurological deficits Skin: normal color, warm, Multiple healing scabbed wounds on LE Results & Data Results & Data ([facility]) Vital Signs (Past 12 Hours) Vital Signs Temp Pulse Pulse Resp BP BP Pulse Ox 07/21/21 16:11 36.4 C L 63 20 121/62 91 07/21/21 15:37 63 07/21/21 12:05 36.3 C L 61 20 119/67 92 07/21/21 09:24 65 146/78 H 07/21/21 08:20 36.4 C L 56 L 18 142/79 H 95 07/21/21 07:25 73 Laboratory Results BMP 07/21/21 06:31 Creatinine 0.96 (1) Burst fracture of lumbar vertebra Encounter type: initial encounter Fracture type: closed Qualified Code(s): S32.001A - Stable burst fracture of unspecified lumbar vertebra, initial encounter for closed fracture
[2021-07-21] MEDS ORDERED: HEPARIN SOD 5,000 UNIT/0.5 ML VIAL SQ SCH (21:00)
[2021-07-21] MEDS ORDERED: HEPARIN SOD 5,000 UNIT/0.5 ML VIAL SQ ONE (21:00)
[2021-07-21] MEDS: ATORVASTATIN 40 MG TAB PO SCH (21:54)
[2021-07-21] MEDS: INSULIN GLARGINE SOLOSTAR 100 UNITS/ML 3 ML PEN SC SCH (21:56)
[2021-07-21] MEDS: LIDOCAINE 5% 1 PATCH TD SCH (21:56)
[2021-07-21] MEDS: PANTOprazole 40 MG TAB PO SCH (21:57)
[2021-07-21] MEDS: SENNA 8.6 MG TAB PO SCH (21:58)
[2021-07-22 06:43] LABS: Hematocrit (blood only) 35.1 % (42-52); Hemoglobin 11.2 g/dL (14.0-18.0); Mean Corpuscular Hemoglobin 29.9 pg (25-34); Mean Corpuscular Hgb Conc 31.9 g/dL (32-36); Mean Corpuscular Volume 93.9 fL (80-100); Mean Platelet Volume 10.4 fL (7.4-10.4); Platelet Count 331 K/uL (130-400); RDW Coefficient of Variation 15.6 % (11.5-14.5); RDW Standard Deviation 53.4 fL (36.4-46.3); Red Blood Count 3.74 M/uL (4.7-6.1); White Blood Count 11.05 K/uL (4.8-10.8)
[2021-07-22 06:54] LABS: INR 1.6 (0.9-1.1); Prothrombin Time 16.9 Seconds (9.0-12.0)
[2021-07-22] MEDS ORDERED: Nursing to Pharmacy Communication SCH ×2 (07:00→19:00)
[2021-07-22] MEDS: INSULIN ASPART PER UNIT SC SCH ×5 (07:14→21:06)
[2021-07-22 07:30] LABS: BUN Creatinine Ratio 20.6 (10-20); Calcium 8.3 mg/dl (8.5-10.1); Creatinine Clr Calc Pharmacy 54.4 ml/min; Est GFR (African American) 72.5 ml/min; Est GFR (Non-African American) 62.5 ml/min; Potassium 3.9 mmol/L (3.5-5.1)
[2021-07-22] MEDS: FUROSEMIDE 40 MG TAB PO SCH (07:37)
[2021-07-22] MEDS: ACETAMINOPHEN 500 MG TAB PO SCH ×4 (07:37→21:19)
[2021-07-22] MEDS: LOSARTAN POTASSIUM 50 MG TAB PO SCH (07:38)
[2021-07-22] MEDS: ASPIRIN 81 MG ECTAB PO SCH (07:38)
[2021-07-22] MEDS: METOPROLOL SUCC 25MG EXT REL TAB PO SCH ×2 (07:38→21:19)
[2021-07-22] MEDS: CHOLECALCIFEROL 1,000 UNITS 25 MCG TAB PO SCH (07:38)
[2021-07-22] MEDS: amLODIPine BESYLATE 5 MG TAB PO SCH (07:38)
[2021-07-22] MEDS: ISOSORBIDE MONO EXTENDED REL 60 MG TABCR PO SCH (07:38)
[2021-07-22] MEDS: VANCOMYCIN HCL 750 MG in SODIUM CHLORIDE 0.9% 250 ML IV SCH ×2 (12:07→23:40)
[2021-07-22] MEDS: oxyCODONE HCL IR 5 MG TAB (IMMEDIATE RELEASE) PO PRN (12:14)
[2021-07-22] MEDS ORDERED: fentaNYL citrate 100 MCG/2 ML VIAL ONE (15:00)
--- NOTE | 2021-07-22 15:08 | Anesthesiology Consultation ---
Date of Service July 22, 2021 Assessment & Plan Chart Review Chart Review: Acceptable Risk for Surgery and Patient NOT seen in Pre Admission Testing Consults Requested none ASA ASA4 Proposed Anesthesia Anesthesia Type: General Anesthesia Line Insertion: Arterial line History Surgery Operation Date: 07/22/21 07:00 Proposed Procedures p L1 Kyphoplasty - Bronson Graham DO Height/Weight Height: 6 ft Weight: 89.2 kg Allergies Allergy/AdvReac Type Severity Reaction Status Date / Time Penicillins Allergy Intermediate HIVES Verified 07/16/21 15:24 clopidogrel Allergy Mild INTERNAL Verified 07/16/21 15:24 HIVES Medications Home Medications Medication Instructions Recorded Confirmed Last Taken amlodipine 5 mg tablet 5 mg PO DAILY 09/04/18 07/16/21 06/26/21 aspirin 81 mg tablet,delayed 81 mg PO QAM 09/04/18 07/16/21 06/26/21 release atorvastatin 40 mg tablet 40 mg PO PM 09/04/18 07/16/21 06/25/21 cholecalciferol (vitamin D3) 25 1,000 unit PO QAM 09/04/18 07/16/21 06/26/21 mcg (1,000 unit) capsule (Vitamin D3) insulin glargine 100 unit/mL (3 12 units SUBCUT DAILY 09/04/18 07/16/21 06/26/21 mL) subcutaneous pen (Lantus 16 units Solostar U-100 Insulin) isosorbide mononitrate 60 mg 60 mg PO QAM 09/04/18 07/16/21 06/26/21 tablet,extended release 24 hr losartan 50 mg tablet 50 mg PO QAM 09/04/18 07/16/21 06/26/21 metoprolol succinate 50 mg 75 mg PO BID 09/04/18 07/16/21 06/26/21 tablet,extended release 24 hr nitroglycerin 0.4 mg sublingual 0.4 mg SUBLINGUAL UD PRN 09/04/18 07/16/21 Unknown tablet (Nitrostat) pantoprazole 40 mg tablet,delayed 40 mg PO PM 09/04/18 07/16/21 06/25/21 release polyethylene glycol 3350 17 gram 17 g PO BID PRN 09/04/18 07/16/21 Unknown oral powder packet warfarin 2.5 mg tablet 2.5 mg PO DAILY 09/04/18 07/16/2122 clindamycin HCl 300 mg capsule 600 mg PO ONCE PRN 09/25/20 07/16/21 Unknown acetaminophen 325 mg tablet 650 mg PO Q6H PRN MDD 3G 06/24/21 07/16/21 Unknown (Tylenol) albuterol sulfate 90 mcg/actuation 2 puff INHALATION Q6H PRN 06/24/21 07/16/21 Unknown aerosol inhaler furosemide 40 mg tablet 40 mg PO DAILY 06/24/21 07/16/21 06/26/21 lidocaine HCl 4 % topical cream 1 applic TOPICAL Q6H PRN 06/24/21 07/16/21 06/26/21 (Aspercreme (lidocaine HCl)) loperamide 2 mg capsule 2 mg PO UD PRN MDD 4 CAPS 06/24/21 07/16/21 Unknown sennosides 8.6 mg tablet (Senokot) 8.6 - 17.2 mg PO HS PRN 06/24/21 07/16/21 Unknown calcium carbonate 300 mg (750 mg) 1,500 mg PO TID PRN 06/26/21 07/16/21 Unknown chewable tablet (Antacid Extra Strength (calcium carb)) insulin aspart U-100 100 unit/mL 4 unit SC 1130,1630,2100 07/16/21 07/16/21 Unknown subcutaneous solution (Novolog U-100 Insulin aspart) Active Medications Generic Name Dose Route Start Last Admin Trade Name Freq PRN Reason Stop Dose Admin Acetaminophen 500 mg 07/16/21 21:00 07/22/21 12:42 Acetaminophen 500 Mg Tab PO 08/15/21 20:59 Not Given QID CLARISSA Acetaminophen 650 mg 07/16/21 22:25 07/20/21 09:48 Acetaminophen 325 Mg Tab PO 08/15/21 22:24 650 mg Q4H PRN Administration pain/fever Amlodipine Besylate 5 mg 07/17/21 09:00 07/22/21 07:38 Amlodipine Besylate 5 Mg Tab PO 08/16/21 08:59 5 mg DAILY CLARISSA Administration Aspirin 81 mg 07/17/21 09:00 07/22/21 07:38 Aspirin 81 Mg Ectab PO 08/16/21 08:59 81 mg QAM CLARISSA Administration Atorvastatin Calcium 40 mg 07/16/21 22:25 07/21/21 21:54 Atorvastatin 40 Mg Tab PO 08/15/21 22:24 40 mg PM CLARISSA Administration Furosemide 40 mg 07/17/21 09:00 07/22/21 07:37 Furosemide 40 Mg Tab PO 08/16/21 08:59 40 mg DAILY CLARISSA Administration Vancomycin HCl 750 mg/ Sodium 265 mls @ 200 mls/hr 07/19/21 00:00 07/22/21 13:32 Chloride IV 07/24/21 00:00 Infused Q12H CLARISSA Infusion Insulin Aspart 0 units 07/22/21 07:00 07/22/21 12:16 Insulin Aspart Per Unit SC 08/21/21 06:59 Not Given Q6 CLARISSA Insulin Glargine 0 - 10 units 07/16/21 22:25 07/21/21 21:56 Insulin Glargine Solostar 100 Units/Ml 3 Ml Pen SC 08/15/21 22:24 10 units HS CLARISSA Administration Isosorbide Mononitrate 60 mg 07/17/21 09:00 07/22/21 07:38 Isosorbide [place] Extended Rel 60 Mg Tabcr PO 08/16/21 08:59 60 mg QAM CLARISSA Administration Lidocaine 1 patch 07/16/21 22:25 07/21/21 21:56 Lidocaine 5% 1 Patch TD 08/15/21 22:24 1 patch HS CLARISSA Administration Losartan Potassium 50 mg 07/17/21 09:00 07/22/21 07:38 Losartan Potassium 50 Mg Tab PO 08/16/21 08:59 50 mg QAM CLARISSA Administration Metoprolol Succinate 75 mg 07/16/21 22:25 07/22/21 07:38 Metoprolol Succ 25mg Ext Rel Tab PO 08/15/21 22:24 75 mg BID CLARISSA Administration Miconazole Nitrate 1 appln 07/19/21 12:32 07/19/21 15:30 Miconazole Nitrate Powder 43 Gm EXT 08/18/21 12:31 1 appln PRN PRN Administration Affected Skin Folds Miscellaneous 1 ea 07/17/21 09:00 07/22/21 07:42 Remove Lidoderm Patch N/A 08/16/21 08:59 1 ea DAILY@0900 CLARISSA Administration Oxycodone HCl 5 mg 07/16/21 22:25 07/22/21 12:14 Oxycodone Hcl Ir 5 Mg Tab (Immediate Release) PO 07/30/21 22:24 5 mg Q4H PRN Administration severe pain Pantoprazole Sodium 40 mg 07/16/21 22:25 07/21/21 21:57 Pantoprazole 40 Mg Tab PO 08/15/21 22:24 40 mg PM CLARISSA Administration Polyethylene Glycol 17 gm 07/16/21 22:25 07/19/21 18:43 Polyethylene (Miralax) 17 Gm Pack PO 08/15/21 22:24 17 gm DAILY PRN Administration Constipation Sennosides 8.6 mg 07/16/21 22:25 07/21/21 21:58 Senna 8.6 Mg Tab PO 08/15/21 22:24 8.6 mg HS CLARISSA Administration Tramadol HCl 50 mg 07/17/21 16:18 07/20/21 17:29 Tramadol Hcl 50 Mg Tablet PO 08/16/21 16:17 50 mg Q6H PRN Administration Pain Vitamin D 1,000 units 07/17/21 09:00 07/22/21 07:38 Cholecalciferol 1,000 Units 25 Mcg Tab PO 08/16/21 08:59 1,000 units QAM CLARISSA Administration Past Medical History Medical History ACS (acute coronary syndrome) CAD (coronary artery disease) Chronic anticoagulation DM type 2 (diabetes mellitus, type 2) Dyslipidemia Dyspnea on exertion Gout History of cerebral hemorrhage HTN (hypertension) Pacemaker Pancreatic cancer Paroxysmal atrial fibrillation Sinus node dysfunction SSS (sick sinus syndrome) Exercise / Class Metabolic Activity III < 4 Walking/Shop/Light housework Past Family History Family History Other Family history non-contributory Past Surgical History Surgical History H/O arthroscopic knee surgery H/O colonoscopy H/O esophagogastroduodenoscopy H/O inguinal hernia repair History of pancreatectomy "07/15/2010 Dr. [place] [facility] [place] S/P CABG x 1 S/P coronary artery stent placement "03/29/03 cardiac cath: RCA - stent of 90% lesion, L circ obtuse kenneth - stent of 80% lesion " S/P splenectomy S/P tonsillectomy and adenoidectomy Past Anesthesia History No Hx of Anesthesia Complications and No Family Hx of Anesthesia Complications History of PONV No Hx of PONV and No Hx of Motion Sickness Social History Smoking Status: Never smoker Hx Alcohol Use: Yes (will not say) Alcohol type: beer and hard liquor alcohol intake frequency: a few times a week Hx Substance Use: No Physical Exam Vital Signs Last Vital Signs Temp 36.3 C L 07/22/21 14:58 Pulse 43 L 07/22/21 14:58 Resp 18 07/22/21 14:58 BP 120/58 L 07/22/21 14:58 Pulse Ox 90 07/22/21 14:58 Testing Laboratory Results 07/22/21 05:20 07/22/21 05:20 PT 16.9 Seconds (9.0-12.0) H 07/22/21 05:20 INR 1.6 (0.9-1.1) H 07/22/21 05:20 Hemoglobin A1c 8.6 % (4.5-5.6) H 07/17/21 06:29 Urine Color Yellow 07/16/21 14:37 Urine Appearance Clear (Clear) 07/16/21 14:37 Urine pH 5.0 (4.5-7.5) 07/16/21 14:37 Ur Specific [place] 1.013 (1.000-1.030) 07/16/21 14:37 Urine Protein 2+ (Negative) H 07/16/21 14:37 Urine Glucose (UA) Negative (Negative) 07/16/21 14:37 Urine Ketones Negative (Negative) 07/16/21 14:37 Urine Nitrite Negative (Negative) 07/16/21 14:37 Ur Leukocyte Esterase Trace (Negative) H 07/16/21 14:37 Urine WBC (Auto) 10-30 /hpf (0-5) H 07/16/21 14:37 Urine RBC (Auto) >30 /hpf (0-4) H 07/16/21 14:37 U Hyaline Cast (Auto) 10-30 /lpf (0-5) H 07/16/21 14:37 U Epithel Cells (Auto) >30 /lpf (0-5) H 07/16/21 14:37 Urine Bacteria (Auto) Negative (Negative) 07/16/21 14:37 Blood Type A Positive 07/18/21 08:48 Antibody Screen NEGATIVE 07/18/21 08:48 07/18/21 10:37 Aerobic Blood Culture - Preliminary Blood No growth in Aerobic bottle after 48 hours. Anaerobic Blood Culture - Preliminary No growth in Anaerobic bottle after 48 hours. 07/18/21 10:29 Aerobic Blood Culture - Preliminary Blood No growth in Aerobic bottle after 48 hours. Anaerobic Blood Culture - Preliminary No growth in Anaerobic bottle after 48 hours. 07/18/21 11:35 Urine Culture - Final Urine,Clean Catch Staph aureus MRSA 07/16/21 14:37 Urine Culture - Final Urine,Straight Cath Staph aureus MRSA 07/22/21 07/22/21 11:55 07:09 POC Glucose 150 H 134 H Electrocardiogram Date: 07/16/21 Findings: + AFIB @ (@ 69;w/ frequent V-paced complexes;LAD) and + LBBB Chest X-Ray Date: 06/26/21 Findings: + NAD and + other (pacemaker) Echocardiogram Date: 12/02/17 EF: 40% LV Function: dysfunctional RWMA: + hypokinetic (mild - moderate global HK;Focal HK-apical inferior and posterior wall) Other Findings: + LVH (mild) Valvular Disease: + MR (moderate-severe;moderate MAC w/restricted PML mobility) TR-moderate -severe
--- NOTE | 2021-07-22 15:26 | Hospitalist Progress Note ---
Date of Service July 22, 2021 Assessment & Plan (1) Burst fracture of lumbar vertebra: (2) Back pain: (3) Paroxysmal atrial fibrillation: (4) DM type 2 (diabetes mellitus, type 2): (5) CAD (coronary artery disease): (6) HTN (hypertension): Plan: per Dr. Ring's notes with addendum: Yakov is an 86 yr male with H/O CAD with history of CABG and stents, HTN, HLD, insulin-dependent diabetes, CHF, sinus node dysfunction status post permanent pacemaker, history of splenectomy, gout, dementia, history of pancreatic cancer, history of intracerebral hemorrhage who presents to ED with complaints of back pain times several weeks. Burst fracture of lumbar vertebra L1 Secondary to Frequent falls Minimally displaced fracture at sacrococcygeal junction --Lumbar TC: Acute L1 burst fracture with 25% loss of vertebral body height and disruption of the posterior cortex. Fracture extends into the anterior aspects of the bilateral pedicles. Moderate to severe multilevel degenerative changes within the lumbar spine. --TLSO brace trial : patient not tolerating Plan for L1 kyphoplasty today UTI Urine culture growing MRSA Blood cultures Negative Repeat Urine culture: MRSA afebrile on Camejo cath Continue Vancomycin Hematuria Suspected Urethral injury from patient pulling on camejo Monitor CBC Hematuria resolved CAD with history of CABG CHF HTN Sinus node dysfunction S/P pacemaker Continue statin, Imdur, Lasix, metoprolol, losartan, ASA no cardiac symptoms PAF Metoprolol for rate control On Warfarin for anticoagulation Monitor INR: 2.7>1.9>1.6 Hold warfarin as planned for surgery DM II HbA1c 9.0 on 06/27/21 lantus/novolog per protocol Dementia mood stable DVT px: Warfarin -held Heparin SQ for now Code Status Full Code Disposition: To be determined Admission and Anticipated Discharge Date Admission Date: July 16, 2021 Subjective ff up for l1 burst fracture, etc seen resting in bed, comfortable not in distress answers most questions appropriately states he has occasional back pain relieved by PRN analgesics no leg weakness/numbness no chest pain, dyspnea, palpitations, dizziness no abdominal pain, nausea Review of Systems Review of Systems: all noted and negative except for above Physical Exam Physical Exam: General- oriented x 2, not in distress, speaks in sentences with no effort or accessory muscle use Eyes- anicteric Neck- no JVD Lungs- clear breath sounds bilaterally, no rales/wheezes Heart- normal rate, regular rhythm; no murmurs Abdomen- normal bowel sounds, nondistended, soft, nontender Extremities- no pretibial edema, no calf tenderness Neuro- alert, oriented x 2; no gross focal neurologic deficits Skin- warm & dry Results & Data Results & Data ([facility]) Vital Signs (Past 12 Hours) Vital Signs Temp Pulse Pulse Resp BP BP Pulse Ox 07/22/21 14:58 36.3 C L 43 L 18 120/58 L 90 07/22/21 12:10 36.7 C 65 20 133/64 93 07/22/21 07:44 36.4 C L 59 L 18 142/72 H 96 07/22/21 07:35 65 131/71 07/22/21 07:12 67 07/22/21 04:00 36.3 C L 68 20 129/78 95 all noted and reviewed including below (1) Burst fracture of lumbar vertebra Encounter type: initial encounter Fracture type: closed Qualified Code(s): S32.001A - Stable burst fracture of unspecified lumbar vertebra, initial encounter for closed fracture
--- NOTE | 2021-07-22 16:18 | History & Physical Bridge Note ---
Date of Service July 22, 2021 History & Physical Bridge Note I have examined the patient, reviewed the History & Physical and in the interval since the performance of the History & Physical I have noted the following changes of clinical significance: no changes noted Kyphoplasty L1
[2021-07-22] MEDS ORDERED: BUPIVACAINE/EPINEPHRINE 0.25% 1:200,000 30 ML VIAL ONE (16:36)
[2021-07-22] MEDS ORDERED: DEXAMETHASONE SOD INJ 4 MG/ML VIAL ONE (17:10)
[2021-07-22] MEDS ORDERED: ONDANSETRON INJ 2 MG/ML 2 ML VIAL ONE (17:10)
[2021-07-22] MEDS ORDERED: PHENYLEPHRINE 100MCG/ML 5ML SYR ONE (17:10)
[2021-07-22] MEDS ORDERED: ePHEDrine sulfate 50 MG/ML AMP ONE (17:10)
[2021-07-22] MEDS ORDERED: ETOMIDATE 2 MG/ML 20 ML VIAL IV ONE (17:10)
[2021-07-22] MEDS ORDERED: SUCCINYLCHOLINE CHLORIDE 20 MG/ML 10 ML VIAL IV ONE (17:10)
[2021-07-22] MEDS ORDERED: IOPAMIDOL INJ 61% 15 ML VIAL INSTIL ONE (17:22)
[2021-07-22] MEDS ORDERED: ePHEDrine sulfate 50 MG/ML AMP IV PRN (17:28)
[2021-07-22] MEDS ORDERED: ONDANSETRON INJ 2 MG/ML 2 ML VIAL IV PRN (17:28)
[2021-07-22] MEDS ORDERED: ATROPINE SULFATE 0.1 MG/ML 10ML SYR IV PRN (17:28)
[2021-07-22] MEDS ORDERED: NALOXONE HCL 0.4 MG/1 ML VIAL/CARP IV PRN ×2 (17:28→18:52)
[2021-07-22] MEDS ORDERED: LABETALOL HCL IV 5 MG/ML 20ML IV PRN (17:28)
[2021-07-22] MEDS ORDERED: fentaNYL citrate 100 MCG/2 ML VIAL IV PRN (17:28)
[2021-07-22] MEDS ORDERED: PROMETHAZINE HCL 12.5 MG in SODIUM CHLORIDE 0.9% 50 ML IV PRN (17:28)
--- NOTE | 2021-07-22 17:37 | Operative Report ---
Post Operative Report Pre & Post Diagnosis Operation Date: 07/22/21 07:00 Pre-Op Diagnosis: Burst fracture of L1 vertebra Post-Op Diagnosis: Burst fracture of L1 vertebra I identified the patient and participated in the time-out.: Yes Procedure Operation Date: 07/22/21 07:00 Actual Procedures 1 biopsy of L1 vertebral body. #2 kyphoplasty of L1 vertebral body. Surgeon Bronson Graham, DO It Integration Architect None Estimated Blood Loss 5 Findings Consistent with Post-Op Diagnosis Specimens Biopsy of L1 vertebral body Indications This is an 86-year-old male who presents with evidence of an unstable burst fracture of L1. He does have severe dementia but is unable to tolerate basic activities and transfers from bed to chair secondary to severe pain. He is unamenable to a TLSO brace. Subsequently we elected to undergo the above- mentioned procedure. Description of Procedure Patient met with identified informed consent obtained. Patient was then taken to the operative suite underwent ablation placed in a prone position adjustable chest padded bolsters. All bony prominences well-padded eyes inspected to ensure no external pressure placed upon the. This point the thoracolumbar spine was prepped and draped normal sterile fashion. The assistance of fluoroscopy in AP and lateral planes identified the L1 vertebral body and pedicles. 2 small incisions were then created and 2 Kyphon working cannulas were placed by way of a transpedicular approach into the L1 vertebral body. 2 core biopsies were then obtained. I then inserted 220 mm Kyphon balloons within the vertebral body they were sequentially inflated subsequently removed and approximately 9 cc of Kyphon cement injected with fluoroscopic visualization into the vertebral body demonstrating excellent interdigitation and placement. After this complete the working apparatus was removed small incisions were closed with subcutaneous Monocryl and sterile dressings placed. Patient was then awakened taken to PACU stable condition. I attest to the content of the Intraoperative Record and any orders documented therein. Any exceptions are noted below.
--- NOTE | 2021-07-22 18:22 | Fluoroscopy Report ---
INTRAOPERATIVE RADIOGRAPHS CLINICAL HISTORY: L1 kyphoplasty. Fluoroscopy time: 177 seconds. FINDINGS: 6 spot fluoroscopic images of the lumbar spine are correlated with lumbar spine CT dated . Interpedicular catheters are placed within the L1 vertebral body and cement material was the n injected into the vertebral body. IMPRESSION: Intraoperative images from an L1 kyphoplasty procedure as above. Electronically signed by: Yousif Espinoza M.D. 07/22/2021 6:21 PM
[2021-07-22] MEDS ORDERED: hydrOXYzine HCl 25 MG TAB PO PRN (18:52)
[2021-07-22] MEDS ORDERED: SOD PHOSPHATE/SOD BIPHOSPHATE ENEMA 132 ML BTL PR PRN (18:52)
[2021-07-22] MEDS ORDERED: diphenhydrAMINE Capsule 25 MG CAP PO PRN (18:52)
[2021-07-22] MEDS ORDERED: ACETAMINOPHEN 1,000 MG/100 ML VIAL IV PRN (18:52)
[2021-07-22] MEDS ORDERED: bisacodyL 10 MG SUPP PR PRN (18:52)
[2021-07-22] MEDS ORDERED: MAGNESIUM HYDROXIDE SUSP 30 ML UDC PO PRN (18:52)
[2021-07-22] MEDS ORDERED: FAMOTIDINE 20 MG TAB PO PRN (18:52)
--- NOTE | 2021-07-22 18:55 | Anesthesiology Progress Note ---
Date of Service July 22, 2021 Anesthesia Post Procedure Vital Signs Vital Signs: Temp Pulse Pulse Pulse Resp BP BP 07/22/21 18:50 36.4 C L 74 18 124/74 07/22/21 18:35 67 21 115/60 07/22/21 18:25 36.5 C 67 19 118/80 07/22/21 18:15 66 18 124/66 07/22/21 18:05 72 17 112/78 07/22/21 17:55 71 17 116/71 07/22/21 17:45 36.7 C 72 20 107/59 L 07/22/21 15:47 36.9 C 75 20 119/68 07/22/21 15:34 75 07/22/21 14:58 36.3 C L 43 L 18 120/58 L 07/22/21 12:10 36.7 C 65 20 133/64 07/22/21 07:44 36.4 C L 59 L 18 142/72 H 07/22/21 07:35 65 131/71 07/22/21 07:12 67 07/22/21 04:00 36.3 C L 68 20 129/78 07/21/21 23:35 36.3 C L 55 L 20 137/71 07/21/21 22:19 67 07/21/21 21:42 71 130/69 07/21/21 19:15 36.4 C L 62 18 106/62 Pulse Ox 07/22/21 18:50 95 07/22/21 18:35 95 07/22/21 18:25 98 07/22/21 18:15 98 07/22/21 18:05 98 07/22/21 17:55 99 07/22/21 17:45 98 07/22/21 15:47 95 07/22/21 15:34 07/22/21 14:58 90 07/22/21 12:10 93 07/22/21 07:44 96 07/22/21 07:35 07/22/21 07:12 07/22/21 04:00 95 07/21/21 23:35 94 07/21/21 22:19 07/21/21 21:42 07/21/21 19:15 92 Pain Intensity Bilateral Lower Back: Pain Intensity: 6 Transfer of Care Handoff Completed per policy Notes Mental Status: alert / awake / arousable Patient Amnestic to Procedure: Yes Nausea / Vomiting: adequately controlled Pain: adequately controlled Airway Patency, RR, SpO2: stable & adequate BP & HR: stable & adequate Hydration State: stable & adequate Anesthetic Complications: no major complications apparent
[2021-07-22] MEDS: LACTATED RINGER'S 1,000 ML IV SCH (19:38)
[2021-07-22] MEDS: INSULIN GLARGINE SOLOSTAR 100 UNITS/ML 3 ML PEN SC SCH (21:06)
[2021-07-22] MEDS: LIDOCAINE 5% 1 PATCH TD SCH (21:10)
[2021-07-22] MEDS: SENNA 8.6 MG TAB PO SCH (21:19)
[2021-07-22] MEDS: PANTOprazole 40 MG TAB PO SCH (21:19)
[2021-07-22] MEDS: ATORVASTATIN 40 MG TAB PO SCH (21:19)
[2021-07-23 06:20] LABS: INR 1.6 (0.9-1.1); Prothrombin Time 16.2 Seconds (9.0-12.0)
[2021-07-23] MEDS: oxyCODONE HCL IR 5 MG TAB (IMMEDIATE RELEASE) PO PRN (06:30)
[2021-07-23 08:43] LABS: Basophils # (auto) 0.01 K/uL (0-0.2); Basophils % (auto) 0.1 %; Hematocrit (blood only) 34.9 % (42-52); Hemoglobin 11.4 g/dL (14.0-18.0); Immature Granulocytes # (auto) 0.03 K/uL (0.00-0.02); Immature Granulocytes % (auto) 0.3 %; Lymphocytes # (auto) 1.44 K/uL (1.2-3.4); Lymphocytes % (auto) 13.6 %; Mean Corpuscular Hemoglobin 30.6 pg (25-34); Mean Corpuscular Hgb Conc 32.7 g/dL (32-36); Mean Corpuscular Volume 93.6 fL (80-100); Mean Platelet Volume 10.8 fL (7.4-10.4); Monocytes # (auto) 0.27 K/uL (0.11-0.59); Monocytes % (auto) 2.6 %; Neutrophils # (auto) 8.83 K/uL (1.4-6.5); Neutrophils % (auto) 83.4 %; Platelet Count 332 K/uL (130-400); RDW Coefficient of Variation 15.5 % (11.5-14.5); RDW Standard Deviation 53.7 fL (36.4-46.3); Red Blood Count 3.73 M/uL (4.7-6.1); White Blood Count 10.58 K/uL (4.8-10.8)
[2021-07-23] MEDS: LACTATED RINGER'S 1,000 ML IV SCH (08:51)
[2021-07-23] MEDS: amLODIPine BESYLATE 5 MG TAB PO SCH (08:52)
[2021-07-23] MEDS: ASPIRIN 81 MG ECTAB PO SCH (08:52)
[2021-07-23] MEDS: CHOLECALCIFEROL 1,000 UNITS 25 MCG TAB PO SCH (08:53)
[2021-07-23] MEDS: LOSARTAN POTASSIUM 50 MG TAB PO SCH (08:53)
[2021-07-23] MEDS: ISOSORBIDE MONO EXTENDED REL 60 MG TABCR PO SCH (08:54)
[2021-07-23] MEDS: METOPROLOL SUCC 25MG EXT REL TAB PO SCH ×2 (08:54→21:25)
[2021-07-23] MEDS: INSULIN ASPART PER UNIT SC SCH ×4 (08:57→21:24)
[2021-07-23 08:58] LABS: BUN Creatinine Ratio 24.2 (10-20); Calcium 8.5 mg/dl (8.5-10.1); Est GFR (African American) 88.1 ml/min; Potassium 4.7 mmol/L (3.5-5.1)
[2021-07-23] MEDS: ACETAMINOPHEN 500 MG TAB PO SCH ×4 (09:05→21:27)
--- NOTE | 2021-07-23 09:28 | Orthopedic Progress Note ---
Date of Service July 23, 2021 Assessment & Plan (1) Burst fracture of lumbar vertebra: Plan: Continue with pain control. Pt is currently on bedrest. Orthopedically stable. Admission and Anticipated Discharge Date Admission Date: July 16, 2021 Subjective Truman is postoperative day 1 kyphoplasty of L1 burst fracture. He reports he has same degree of back pain. Has history of dementia therefore somewhat of a poor historian. Review of Systems Review of Systems: All systems reviewed & are unremarkable except as noted in HPI & below Physical Exam Physical Exam: Patient sitting up in bed eating breakfast in no acute distress Dressing thoracolumbar region is clean dry and intact Results & Data ([facility]) Vital Signs (Past 12 Hours) Vital Signs Temp Pulse Resp BP Pulse Ox 07/23/21 07:08 36.9 C 70 20 132/68 93 07/23/21 03:17 36.5 C 70 16 115/62 94 07/22/21 22:29 36.4 C L 68 18 118/66 91 (1) Burst fracture of lumbar vertebra Encounter type: initial encounter Fracture type: closed Qualified Code(s): S32.001A - Stable burst fracture of unspecified lumbar vertebra, initial encounter for closed fracture
[2021-07-23] MEDS ORDERED: VANCOMYCIN TROUGH ONE (11:30)
[2021-07-23] MEDS: VANCOMYCIN HCL 750 MG in SODIUM CHLORIDE 0.9% 250 ML IV SCH ×2 (13:00→23:13)
[2021-07-23] MEDS ORDERED: PHARMACY GLYCEMIC MGMT CONSULT PRN (15:10)
--- NOTE | 2021-07-23 15:38 | Pharmacy Report ---
Pharmacy Vanc AUC Short Note - Date of Service July 23, 2021 - Assessment & Plan Assessment * Mr Little is an 86 year old M receiving Vancomycin for treatment of MRSA UTI. * Pertinent microbiologic data includes: Blood cx negative to date, UCx growing MRSA on 07/16 and 07/18 (Vanc KRISTA: 2) * Day #6 of antimicrobial therapy. * Vanc level obtained today indicates that pt remains stable on current regimen. Plan Vancomycin * AUC/KRISTA is the preferred PK/PD target for vancomycin * AUC guided dosing is effective and associated with decreased risk of nephrotoxicity compared to traditional trough targets * Trough level of 13.9 mcg/mL is predicted to achieve target AUC/KRISTA of 400-600 mg/L.hr and may be associated with a 9% risk of nephrotoxicity * Continue dose of 750 mg IV every 12 hours * No further levels have been ordered at this time. If patient remains on vancomycin, will consider the need for additional levels in 2-3 days. Pharmacy will continue to follow and will adjust dose/frequency as necessary. Thank you.
[2021-07-23] MEDS ORDERED: INSULIN GLARGINE SOLOSTAR 100 UNITS/ML 3 ML PEN SC ONE (16:30)
--- NOTE | 2021-07-23 18:29 | Hospitalist Progress Note ---
Date of Service July 23, 2021 Assessment & Plan (1) Burst fracture of lumbar vertebra: (2) Back pain: (3) Paroxysmal atrial fibrillation: (4) DM type 2 (diabetes mellitus, type 2): (5) CAD (coronary artery disease): (6) HTN (hypertension): Plan: per Dr. Ring's notes with addendum: Yakov is an 86 yr male with H/O CAD with history of CABG and stents, HTN, HLD, insulin-dependent diabetes, CHF, sinus node dysfunction status post permanent pacemaker, history of splenectomy, gout, dementia, history of pancreatic cancer, history of intracerebral hemorrhage who presents to ED with complaints of back pain times several weeks. Burst fracture of lumbar vertebra L1 Secondary to Frequent falls Minimally displaced fracture at sacrococcygeal junction --Lumbar TC: Acute L1 burst fracture with 25% loss of vertebral body height and disruption of the posterior cortex. Fracture extends into the anterior aspects of the bilateral pedicles. Moderate to severe multilevel degenerative changes within the lumbar spine. --TLSO brace trial : patient not tolerating 07/22/21: s/p Kyphoplasty stable overall PT/OT when ok with Ortho UTI Urine culture growing MRSA Blood cultures Negative Repeat Urine culture: MRSA afebrile on Camejo cath Continue Vancomycin Hematuria Suspected Urethral injury from patient pulling on camejo Monitor CBC Hematuria resolved CAD with history of CABG CHF HTN Sinus node dysfunction S/P pacemaker Continue statin, Imdur,metoprolol, losartan, ASA lasix held for today no cardiac symptoms PAF Metoprolol for rate control On Warfarin for anticoagulation Monitor INR: 2.7>1.9>1.6 warfarin held in light of surgery will discuss with Ortho SVC when warfarin may be resumed DM II HbA1c 9.0 on 06/27/21 lantus/novolog per protocol Dementia mood stable DVT px: Warfarin -held Code Status Full Code Disposition: To be determined Admission and Anticipated Discharge Date Admission Date: July 16, 2021 Subjective ff up for L1 burst fracture, s/p surgery, etc seen resting in bed, comfortable pleasantly confused not in distress states he feels fine overall minimal back pain no chest pain, dyspnea, palpitations, dizziness no leg pain, weakness, numbness no other symptoms Review of Systems Review of Systems: all noted and negative except for above Physical Exam Physical Exam: General- oriented x 2, not in distress, speaks in sentences with no effort or accessory muscle use Eyes- anicteric Neck- no JVD Lungs- clear BS BL Heart- normal rate, regular rhythm; no murmurs Abdomen- normal bowel sounds, nondistended, soft, nontender Extremities- no pretibial edema, no calf tenderness l knee abrasion: scabbed- falling off Neuro- alert, oriented x 1; no new gross focal neurologic deficits Skin- warm & dry Results & Data Results & Data ([facility]) Vital Signs (Past 12 Hours) Vital Signs Temp Pulse Resp BP Pulse Ox 07/23/21 15:24 36.4 C L 65 16 104/61 94 07/23/21 11:01 36.4 C L 65 20 144/69 H 94 07/23/21 07:08 36.9 C 70 20 132/68 93 all noted and reviewed including below (1) Burst fracture of lumbar vertebra Encounter type: initial encounter Fracture type: closed Qualified Code(s): S32.001A - Stable burst fracture of unspecified lumbar vertebra, initial encounter for closed fracture
[2021-07-23] MEDS: ATORVASTATIN 40 MG TAB PO SCH (21:23)
[2021-07-23] MEDS: LIDOCAINE 5% 1 PATCH TD SCH (21:24)
[2021-07-23] MEDS: PANTOprazole 40 MG TAB PO SCH (21:25)
[2021-07-23] MEDS: SENNA 8.6 MG TAB PO SCH (21:26)
[2021-07-24 07:57] LABS: INR 1.4 (0.9-1.1); Prothrombin Time 15.1 Seconds (9.0-12.0)
[2021-07-24] MEDS: amLODIPine BESYLATE 5 MG TAB PO SCH (08:26)
[2021-07-24] MEDS: ASPIRIN 81 MG ECTAB PO SCH (08:27)
[2021-07-24] MEDS: CHOLECALCIFEROL 1,000 UNITS 25 MCG TAB PO SCH (08:28)
[2021-07-24] MEDS: LOSARTAN POTASSIUM 50 MG TAB PO SCH (08:29)
[2021-07-24] MEDS: ISOSORBIDE MONO EXTENDED REL 60 MG TABCR PO SCH (08:29)
[2021-07-24] MEDS: METOPROLOL SUCC 25MG EXT REL TAB PO SCH ×2 (08:30→19:44)
[2021-07-24] MEDS: INSULIN ASPART PER UNIT SC SCH ×4 (08:43→20:42)
[2021-07-24] MEDS: ACETAMINOPHEN 500 MG TAB PO SCH ×3 (09:00→17:01)
--- NOTE | 2021-07-24 10:32 | Pharmacy Report ---
Pharmacy Glycemic Short Note 2 - Date of Service July 24, 2021 - Glycemic Short BSG Results (Last 24 hours): 07/23/21 07/23/21 07/23/21 11:38 16:42 20:14 POC Glucose 240 H 212 H 189 H 07/24/21 07:33 POC Glucose 128 H OUTPATIENT ANTIDIABETIC REGIMEN: * Lantus 12 units SQ daily * Aspart 4 units daily at 1130, 1630, 2100 * HbA1c: 8.6% (07/17/21) ASSESSMENT: * Mr Little is an 86yo diabetic male admitted with UTI. * Lantus was held on 07/22 d/t patient being NPO for procedure. Pt subsequently became hyperglycemic yesterday (07/23), at which time pharmacy was consulted for glycemic mgmt. * Lantus resumed yesterday, with improvement in BSGs today. * Will continue to adjust as needed. PLAN FOR INPATIENT GLYCEMIC CONTROL: * Hold outpatient oral diabetes medications * Basal insulin * Lantus 5-12 units SQ daily, per scale * Bolus insulin * NovoLog per scale ACHS or Q6hrs while NPO * Goal Range: Low 120 mg/dL - High 160 mg/dL * Correction Factor: 30 mg/dL/unit * Nutritional / Prandial insulin per carb ratio of 1 unit per 15 grams CHO consumed
--- NOTE | 2021-07-24 12:08 | Orthopedic Progress Note ---
Date of Service July 24, 2021 Assessment & Plan (1) Burst fracture of lumbar vertebra: Plan: At this time and I would allow the patient to begin anticoagulation therapy. He may begin transfers and ambulation as tolerated with physical therapy. He is okay for discharge per orthopedics. Admission and Anticipated Discharge Date Admission Date: July 16, 2021 Subjective Patient states his back pain is markedly improved. Physical Exam Physical Exam: Exam he is much more comfortable on presentation today. He is alert and cooperative with this exam and discussion. Results & Data ([facility]) Vital Signs (Past 12 Hours) Vital Signs Temp Pulse Resp BP Pulse Ox 07/24/21 11:00 36.7 C 62 19 134/72 98 07/24/21 07:23 36.4 C L 72 18 149/83 H 95 (1) Burst fracture of lumbar vertebra Encounter type: initial encounter Fracture type: closed Qualified Code(s): S32.001A - Stable burst fracture of unspecified lumbar vertebra, initial encounter for closed fracture
[2021-07-24] MEDS: VANCOMYCIN HCL 750 MG in SODIUM CHLORIDE 0.9% 250 ML IV SCH ×2 (12:53→23:31)
--- NOTE | 2021-07-24 17:41 | Hospitalist Progress Note ---
Date of Service July 24, 2021 Assessment & Plan (1) Burst fracture of lumbar vertebra: (2) Back pain: (3) Paroxysmal atrial fibrillation: (4) DM type 2 (diabetes mellitus, type 2): (5) CAD (coronary artery disease): (6) HTN (hypertension): Plan: per Dr. Ring's notes with addendum: Yakov is an 86 yr male with H/O CAD with history of CABG and stents, HTN, HLD, insulin-dependent diabetes, CHF, sinus node dysfunction status post permanent pacemaker, history of splenectomy, gout, dementia, history of pancreatic cancer, history of intracerebral hemorrhage who presents to ED with complaints of back pain times several weeks. Burst fracture of lumbar vertebra L1 Secondary to Frequent falls Minimally displaced fracture at sacrococcygeal junction --Lumbar TC: Acute L1 burst fracture with 25% loss of vertebral body height and disruption of the posterior cortex. Fracture extends into the anterior aspects of the bilateral pedicles. Moderate to severe multilevel degenerative changes within the lumbar spine. --TLSO brace trial : patient not tolerating 07/22/21: s/p Kyphoplasty stable overall Discussed with prakash Mark to resume warfarin, heparin for DVT prophylaxis PT/OT UTI Urine culture growing MRSA Blood cultures Negative Repeat Urine culture: MRSA afebrile on Camejo cath Continue Vancomycin Hematuria Suspected Urethral injury from patient pulling on camejo Monitor CBC Hematuria resolved CAD with history of CABG CHF HTN Sinus node dysfunction S/P pacemaker Continue statin, Imdur,metoprolol, losartan, ASA lasix held for today, anticipate to resume tomorrow no cardiac symptoms PAF Metoprolol for rate control On Warfarin for anticoagulation Monitor INR: 2.7>1.9>1.6--> 1.4 Resume Coumadin today DM II HbA1c 9.0 on 06/27/21 lantus/novolog per protocol Dementia mood stable DVT px: Warfarin Heparin SC Code Status Full Code Disposition: transition to [facility] when accepted Admission and Anticipated Discharge Date Admission Date: July 16, 2021 Subjective Follow-up for L1 burst fracture, status post kyphoplasty, etc. Seen resting in bed, watching TV, awake and alert Irritable but allowed examiner to evaluate patient Mostly confused Reoriented, reassured States he feels fine overall Very minimal back pain, no chest pain, palpitations, dizziness, nausea vomiting, shortness of breath No other symptom Review of Systems Review of Systems: all noted and negative except for above Physical Exam Physical Exam: General- oriented x 0, not in distress, speaks in sentences with no effort or accessory muscle use Eyes- anicteric Neck- no JVD Lungs- clear breath sounds bilaterally Heart- normal rate, regular rhythm; no murmurs Abdomen- normal bowel sounds, nondistended, soft, nontender Extremities- no pretibial edema, no calf tenderness Neuro- alert, oriented x 0; no new gross focal neurologic deficits Skin- warm & dry Results & Data Results & Data ([facility]) Vital Signs (Past 12 Hours) Vital Signs Temp Pulse Pulse Resp BP Pulse Ox 07/24/21 15:11 36.6 C 66 20 127/66 94 07/24/21 11:00 36.7 C 62 19 134/72 98 07/24/21 07:23 36.4 C L 72 18 149/83 H 95 all noted and reviewed including below (1) Burst fracture of lumbar vertebra Encounter type: initial encounter Fracture type: closed Qualified Code(s): S32.001A - Stable burst fracture of unspecified lumbar vertebra, initial encounter for closed fracture
[2021-07-24] MEDS: ATORVASTATIN 40 MG TAB PO SCH (19:43)
[2021-07-24] MEDS: LIDOCAINE 5% 1 PATCH TD SCH (19:44)
[2021-07-24] MEDS: SENNA 8.6 MG TAB PO SCH (19:45)
[2021-07-24] MEDS: PANTOprazole 40 MG TAB PO SCH (19:45)
[2021-07-24] MEDS: HEPARIN SOD 5,000 UNIT/0.5 ML VIAL SQ SCH (20:42)
[2021-07-24] MEDS ORDERED: INSULIN GLARGINE SOLOSTAR 100 UNITS/ML 3 ML PEN SC SCH (21:00)
[2021-07-25] MEDS: ACETAMINOPHEN 500 MG TAB PO PRN ×2 (05:38→12:14)
[2021-07-25 08:28] LABS: INR 1.4 (0.9-1.1); Prothrombin Time 14.2 Seconds (9.0-12.0)
[2021-07-25] MEDS: amLODIPine BESYLATE 5 MG TAB PO SCH (08:28)
[2021-07-25] MEDS: ASPIRIN 81 MG ECTAB PO SCH (08:28)
[2021-07-25] MEDS: ISOSORBIDE MONO EXTENDED REL 60 MG TABCR PO SCH (08:28)
[2021-07-25] MEDS: CHOLECALCIFEROL 1,000 UNITS 25 MCG TAB PO SCH (08:28)
[2021-07-25] MEDS: METOPROLOL SUCC 25MG EXT REL TAB PO SCH ×2 (08:28→21:18)
[2021-07-25] MEDS: LOSARTAN POTASSIUM 50 MG TAB PO SCH (08:28)
[2021-07-25] MEDS: FUROSEMIDE 40 MG TAB PO SCH (08:28)
[2021-07-25] MEDS: INSULIN ASPART PER UNIT SC SCH ×4 (08:36→21:14)
[2021-07-25] MEDS: traMADol HCL 50 MG TABLET PO PRN ×2 (08:37→14:05)
[2021-07-25 08:52] LABS: Basophils # (auto) 0.07 K/uL (0-0.2); Basophils % (auto) 0.6 %; Eosinophils # (auto) 0.41 K/uL (0-0.5); Eosinophils % (auto) 3.4 %; Hematocrit (blood only) 36.5 % (42-52); Hemoglobin 11.8 g/dL (14.0-18.0); Immature Granulocytes # (auto) 0.04 K/uL (0.00-0.02); Immature Granulocytes % (auto) 0.3 %; Lymphocytes # (auto) 3.59 K/uL (1.2-3.4); Lymphocytes % (auto) 29.5 %; Mean Corpuscular Hemoglobin 30.6 pg (25-34); Mean Corpuscular Hgb Conc 32.3 g/dL (32-36); Mean Corpuscular Volume 94.6 fL (80-100); Mean Platelet Volume 10.2 fL (7.4-10.4); Monocytes # (auto) 1.59 K/uL (0.11-0.59); Monocytes % (auto) 13.1 %; Neutrophils # (auto) 6.47 K/uL (1.4-6.5); Neutrophils % (auto) 53.1 %; Platelet Count 321 K/uL (130-400); RDW Coefficient of Variation 15.8 % (11.5-14.5); RDW Standard Deviation 54.8 fL (36.4-46.3); Red Blood Count 3.86 M/uL (4.7-6.1); White Blood Count 12.17 K/uL (4.8-10.8)
[2021-07-25 09:06] LABS: INR 1.3 (0.9-1.1)
--- NOTE | 2021-07-25 09:13 | Pharmacy Report ---
Pharmacy Glycemic Short Note 2 - Date of Service July 25, 2021 - Glycemic Short BSG Results (Last 24 hours): 07/24/21 07/24/21 07/24/21 11:33 16:43 20:10 POC Glucose 143 H 168 H 206 H 07/25/21 07:19 POC Glucose 112 H OUTPATIENT ANTIDIABETIC REGIMEN: * Lantus 12 units SQ daily * Aspart 4 units daily at 1130, 1630, 2100 * HbA1c: 8.6% (07/17/21) ASSESSMENT: 07/25/21 * BSGs yesterday were 252-327-280-206 mg/dL. Fasting today is 112 mg/dL. * Patient received 15 units of insulin (12 units of basal and 3 units of bolus). Of note, it appears patient's PO intake is greatly reduced. * Decrease basal insulin to 10 units nightly as fastings trending downwards. * Tighten CR as BSGs trend upwards throughout the day. BACKGROUND * Mr Little is an 86yo diabetic male admitted with UTI. * Lantus was held on 07/22 d/t patient being NPO for procedure. Pt subsequently became hyperglycemic yesterday (07/23), at which time pharmacy was consulted for glycemic mgmt. * Lantus resumed yesterday, with improvement in BSGs today. * Will continue to adjust as needed. PLAN FOR INPATIENT GLYCEMIC CONTROL: * Hold outpatient oral diabetes medications * Basal insulin * Lantus 10 units SQ HS * Bolus insulin * NovoLog per scale ACHS or Q6hrs while NPO * Goal Range: Low 120 mg/dL - High 160 mg/dL * Correction Factor: 30 mg/dL/unit * Nutritional / Prandial insulin per carb ratio of 1 unit per 10 grams CHO consumed
[2021-07-25 09:36] LABS: BUN Creatinine Ratio 26.8 (10-20); Calcium 8.6 mg/dl (8.5-10.1); Est GFR (African American) 81.6 ml/min; Est GFR (Non-African American) 70.4 ml/min; Potassium 3.7 mmol/L (3.5-5.1)
[2021-07-25] MEDS: HEPARIN SOD 5,000 UNIT/0.5 ML VIAL SQ SCH ×2 (09:40→21:16)
[2021-07-25] MEDS: VANCOMYCIN HCL 750 MG in SODIUM CHLORIDE 0.9% 250 ML IV SCH (12:19)
--- NOTE | 2021-07-25 14:21 | Hospitalist Progress Note ---
Date of Service July 25, 2021 Assessment & Plan (1) Burst fracture of lumbar vertebra: (2) Back pain: (3) Paroxysmal atrial fibrillation: (4) DM type 2 (diabetes mellitus, type 2): (5) CAD (coronary artery disease): (6) HTN (hypertension): Plan: per Dr. Ring's notes with addendum: Yakov is an 86 yr male with H/O CAD with history of CABG and stents, HTN, HLD, insulin-dependent diabetes, CHF, sinus node dysfunction status post permanent pacemaker, history of splenectomy, gout, dementia, history of pancreatic cancer, history of intracerebral hemorrhage who presents to ED with complaints of back pain times several weeks. Burst fracture of lumbar vertebra L1 Secondary to Frequent falls Minimally displaced fracture at sacrococcygeal junction --Lumbar TC: Acute L1 burst fracture with 25% loss of vertebral body height and disruption of the posterior cortex. Fracture extends into the anterior aspects of the bilateral pedicles. Moderate to severe multilevel degenerative changes within the lumbar spine. --TLSO brace trial : patient not tolerating 07/22/21: s/p Kyphoplasty remains stable overall Discussed with prakash Mark to resume warfarin, heparin for DVT prophylaxis PT/OT UTI Urine culture growing MRSA Blood cultures: Negative Repeat Urine culture: MRSA afebrile on Camejo cath Continue Vancomycin Day 11/29 Hematuria Suspected Urethral injury from patient pulling on camejo Monitor CBC Hematuria resolved CAD with history of CABG CHF HTN Sinus node dysfunction S/P pacemaker Continue statin, Imdur,metoprolol, losartan, ASA, lasix PAF Metoprolol for rate control On Warfarin for anticoagulation Monitor INR: 2.7>1.9>1.6--> 1.3 coumadin 6mg today INR daily DM II HbA1c 9.0 on 06/27/21 lantus/novolog per protocol BSG 137 Dementia mood stable DVT px: Warfarin Heparin SC Code Status Full Code Disposition: transition to [facility] when accepted Admission and Anticipated Discharge Date Admission Date: July 16, 2021 Subjective ff up for L 1 burst fracture, s/p Kyphoplasty etc seen resting in bed, comfortable pleasantly confused states he feels fine overall no back pain no chest pain, dyspnea, palpitations, dizziness no other symptoms Review of Systems Review of Systems: all noted and negative except for above Physical Exam Physical Exam: .pef Results & Data Results & Data ([facility]) Vital Signs (Past 12 Hours) Vital Signs Temp Pulse Resp BP Pulse Ox 07/25/21 08:06 36.3 C L 64 16 135/74 93 all noted and reviewed including below (1) Burst fracture of lumbar vertebra Encounter type: initial encounter Fracture type: closed Qualified Code(s): S32.001A - Stable burst fracture of unspecified lumbar vertebra, initial encounter for closed fracture
[2021-07-25] MEDS ORDERED: WARFARIN SOD 6 MG TAB PO SCH (16:00)
[2021-07-25] MEDS: LIDOCAINE 5% 1 PATCH TD SCH (21:10)
[2021-07-25] MEDS: INSULIN GLARGINE SOLOSTAR 100 UNITS/ML 3 ML PEN SC SCH (21:14)
[2021-07-25] MEDS: PANTOprazole 40 MG TAB PO SCH (21:16)
[2021-07-25] MEDS: SENNA 8.6 MG TAB PO SCH (21:17)
[2021-07-25] MEDS: ATORVASTATIN 40 MG TAB PO SCH (21:18)
[2021-07-25] MEDS: oxyCODONE HCL IR 5 MG TAB (IMMEDIATE RELEASE) PO PRN (21:33)
[2021-07-26] MEDS: VANCOMYCIN HCL 750 MG in SODIUM CHLORIDE 0.9% 250 ML IV SCH ×2 (00:49→11:47)
[2021-07-26] MEDS: ASPIRIN 81 MG ECTAB PO SCH (08:19)
[2021-07-26] MEDS: CHOLECALCIFEROL 1,000 UNITS 25 MCG TAB PO SCH (08:19)
[2021-07-26] MEDS: amLODIPine BESYLATE 5 MG TAB PO SCH (08:19)
[2021-07-26] MEDS: FUROSEMIDE 40 MG TAB PO SCH (08:19)
[2021-07-26] MEDS: ISOSORBIDE MONO EXTENDED REL 60 MG TABCR PO SCH (08:19)
[2021-07-26] MEDS: LOSARTAN POTASSIUM 50 MG TAB PO SCH (08:20)
[2021-07-26] MEDS: METOPROLOL SUCC 25MG EXT REL TAB PO SCH ×2 (08:21→20:23)
[2021-07-26] MEDS: HEPARIN SOD 5,000 UNIT/0.5 ML VIAL SQ SCH ×2 (08:21→20:23)
[2021-07-26 08:24] LABS: INR 1.2 (0.9-1.1); Prothrombin Time 13.1 Seconds (9.0-12.0)
[2021-07-26] MEDS: traMADol HCL 50 MG TABLET PO PRN ×2 (08:28→17:09)
[2021-07-26] MEDS: INSULIN ASPART PER UNIT SC SCH ×4 (08:28→20:45)
[2021-07-26] MEDS: POLYETHYLENE (MIRALAX) 17 GM PACK PO SCH (09:25)
[2021-07-26] MEDS: POLYETHYLENE (MIRALAX) 17 GM PACK PO PRN (09:25)
[2021-07-26] MEDS: ACETAMINOPHEN 500 MG TAB PO PRN (11:49)
--- NOTE | 2021-07-26 14:39 | Hospitalist Progress Note ---
Date of Service July 26, 2021 Assessment & Plan (1) Burst fracture of lumbar vertebra: (2) Back pain: (3) Paroxysmal atrial fibrillation: (4) DM type 2 (diabetes mellitus, type 2): (5) CAD (coronary artery disease): (6) HTN (hypertension): Plan: per Dr. Ring's notes with addendum: Patent is an 86 yr male with H/O CAD with history of CABG and stents, HTN, HLD, insulin-dependent diabetes, CHF, sinus node dysfunction status post permanent pacemaker, history of splenectomy, gout, dementia, history of pancreatic cancer, history of intracerebral hemorrhage who presents to ED with complaints of back pain times several weeks. Burst fracture of lumbar vertebra L1 Secondary to Frequent falls Minimally displaced fracture at sacrococcygeal junction --Lumbar TC: Acute L1 burst fracture with 25% loss of vertebral body height and disruption of the posterior cortex. Fracture extends into the anterior aspects of the bilateral pedicles. Moderate to severe multilevel degenerative changes within the lumbar spine. --TLSO brace trial : patient not tolerating 07/22/21: s/p Kyphoplasty patient is stable overall Discussed with prakash Mark to resume warfarin, heparin for DVT prophylaxis PT/OT UTI, MRSA Urine culture growing MRSA Blood cultures: Negative Repeat Urine culture: MRSA afebrile on Camejo cath Continue Vancomycin Day 12/30 Hematuria Suspected Urethral injury from patient pulling on camejo Monitor CBC Hematuria resolved CAD with history of CABG CHF HTN Sinus node dysfunction S/P pacemaker Continue statin, Imdur,metoprolol, losartan, ASA, lasix PAF Metoprolol for rate control On Warfarin for anticoagulation Monitor INR: 2.7>1.9>1.6--> 1.2 coumadin 7.5 mg today INR daily DM II HbA1c 9.0 on 06/27/21 lantus/novolog per protocol BSG 183 Dementia mood stable DVT px: Warfarin Heparin SC Code Status Full Code Disposition: pending Admission and Anticipated Discharge Date Admission Date: July 16, 2021 Subjective ff up for L1 burst fracture, s/p kyphoplasty, etc seen resting in bed, sleeping but easily awakened pleasantly confused states his back feels ok no dyspnea, chest pain, dizziness, palpitations ambulated in the room with PT yesterday, no acute issues no other symptoms no other issues per senior business architect of Systems Review of Systems: all noted and negative except for above Physical Exam Physical Exam: General- oriented x 1, not in distress, speaks in sentences with no effort or accessory muscle use Eyes- anicteric Neck- no JVD Lungs- clear BS BL Heart- normal rate, regular rhythm; no murmurs Abdomen- normal bowel sounds, nondistended, soft, nontender Extremities- no pretibial edema, no calf tenderness Neuro- alert, oriented x 1; no new gross focal neurologic deficits Skin- warm & dry Results & Data Results & Data ([facility]) Vital Signs (Past 12 Hours) Vital Signs Temp Pulse Resp BP Pulse Ox 07/26/21 07:49 36.7 C 58 L 16 152/78 H 95 all noted and reviewed including below (1) Burst fracture of lumbar vertebra Encounter type: initial encounter Fracture type: closed Qualified Code(s): S32.001A - Stable burst fracture of unspecified lumbar vertebra, initial encounter for closed fracture
[2021-07-26] MEDS: WARFARIN SOD 7.5 MG TAB PO SCH (16:40)
[2021-07-26] MEDS: ATORVASTATIN 40 MG TAB PO SCH (20:18)
[2021-07-26] MEDS: PANTOprazole 40 MG TAB PO SCH (20:19)
[2021-07-26] MEDS: SENNA 8.6 MG TAB PO SCH (20:19)
[2021-07-26] MEDS: LIDOCAINE 5% 1 PATCH TD SCH (20:20)
[2021-07-26] MEDS: INSULIN GLARGINE SOLOSTAR 100 UNITS/ML 3 ML PEN SC SCH (20:30)
[2021-07-26] MEDS: oxyCODONE HCL IR 5 MG TAB (IMMEDIATE RELEASE) PO PRN (20:51)
[2021-07-27] MEDS: VANCOMYCIN HCL 750 MG in SODIUM CHLORIDE 0.9% 250 ML IV SCH ×2 (00:07→12:36)
[2021-07-27] MEDS: traMADol HCL 50 MG TABLET PO PRN ×2 (03:15→11:13)
[2021-07-27 07:30] LABS: INR 1.5 (0.9-1.1); Prothrombin Time 15.7 Seconds (9.0-12.0)
[2021-07-27 07:41] LABS: Creatinine Clr Calc Pharmacy 58.8 ml/min; Est GFR (African American) 79.6 ml/min; Est GFR (Non-African American) 68.7 ml/min
[2021-07-27] MEDS: METOPROLOL SUCC 25MG EXT REL TAB PO SCH (08:53)
[2021-07-27] MEDS: ASPIRIN 81 MG ECTAB PO SCH (08:54)
[2021-07-27] MEDS: amLODIPine BESYLATE 5 MG TAB PO SCH (08:54)
[2021-07-27] MEDS: ISOSORBIDE MONO EXTENDED REL 60 MG TABCR PO SCH (08:54)
[2021-07-27] MEDS: LOSARTAN POTASSIUM 50 MG TAB PO SCH (08:54)
[2021-07-27] MEDS: CHOLECALCIFEROL 1,000 UNITS 25 MCG TAB PO SCH (08:55)
[2021-07-27] MEDS: INSULIN ASPART PER UNIT SC SCH ×2 (08:56→12:29)
[2021-07-27] MEDS: POLYETHYLENE (MIRALAX) 17 GM PACK PO SCH (08:59)
[2021-07-27] MEDS: HEPARIN SOD 5,000 UNIT/0.5 ML VIAL SQ SCH (08:59)
--- NOTE | 2021-07-27 09:56 | Hospitalist Progress Note ---
Date of Service July 27, 2021 Assessment & Plan (1) Burst fracture of lumbar vertebra: (2) Back pain: (3) Paroxysmal atrial fibrillation: (4) DM type 2 (diabetes mellitus, type 2): (5) CAD (coronary artery disease): (6) HTN (hypertension): Plan: per Dr. Ring's notes with addendum: Yakov is an 86 yr male with H/O CAD with history of CABG and stents, HTN, HLD, insulin-dependent diabetes, CHF, sinus node dysfunction status post permanent pacemaker, history of splenectomy, gout, dementia, history of pancreatic cancer, history of intracerebral hemorrhage who presents to ED with complaints of back pain times several weeks. Burst fracture of lumbar vertebra L1 Secondary to Frequent falls Minimally displaced fracture at sacrococcygeal junction --Lumbar TC: Acute L1 burst fracture with 25% loss of vertebral body height and disruption of the posterior cortex. Fracture extends into the anterior aspects of the bilateral pedicles. Moderate to severe multilevel degenerative changes within the lumbar spine. --TLSO brace trial : patient not tolerating 07/22/21: s/p Kyphoplasty patient remained stable overall after procedure Discussed with prakash Mark to resume warfarin, heparin for DVT prophylaxis tolerating PT/OT sitting up in chair UTI, MRSA Urine culture growing MRSA Blood cultures: Negative Repeat Urine culture: MRSA afebrile on Camejo cath Continue Vancomycin Day 01/30, last day tomorrow then discontinue Hematuria Suspected Urethral injury from patient pulling on camejo Monitor CBC Hematuria resolved CAD with history of CABG CHF HTN Sinus node dysfunction S/P pacemaker Continue statin, Imdur,metoprolol, losartan, ASA, lasix PAF Metoprolol for rate control On Warfarin for anticoagulation Monitor INR: 2.7>1.9>1.6--> 1.2--> 1.5 coumadin 7.5 mg today check INR daily, then adjust coumadin accordingly usually on 2.5mg po warfarin daily DM II HbA1c 9.0 on 06/27/21 lantus/novolog per protocol BSG 155 - 207 Bilateral Toe Wounds daily wound care please Dementia mood stable fall precautions delirium prevention strategies DVT px: Warfarin Heparin SC until coumadin therapeutic Code Status Full Code [facility] with Ortho Spine Dr. Graham in 1 week Admission and Anticipated Discharge Date Admission Date: July 16, 2021 Subjective Follow-up for L1 burst fracture, status post kyphoplasty, etc. Seen resting in bed, awake and alert, watching TV, not in distress, comfortable Pleasantly confused States he feels fine overall Has mild low back pain No shortness of breath, chest pain, palpitation, dizziness No abdominal pain, nausea vomiting Denies fevers or chills No other symptoms Review of Systems Review of Systems: all noted and negative except for above Physical Exam Physical Exam: General- oriented x 1, not in distress, speaks in sentences with no effort or accessory muscle use Eyes- anicteric Neck- no JVD Lungs- clear breath sounds bilaterally, no wheezing or crackles appreciated Heart- normal rate, regular rhythm; no murmurs Abdomen- normal bowel sounds, nondistended, soft, nontender Extremities- no pretibial edema, no calf tenderness left foot: scabbed wounds on the phalanges- small bleeding on the 2nd phalanx Neuro- alert, oriented x 1; no new gross focal neurologic deficits Skin- warm & dry Results & Data Results & Data ([facility]) Vital Signs (Past 12 Hours) Vital Signs Temp Pulse Pulse Resp BP BP Pulse Ox 07/27/21 07:46 36.9 C 62 15 133/69 93 07/26/21 22:57 36.7 C 62 18 123/70 95 all noted and reviewed including below (1) Burst fracture of lumbar vertebra Encounter type: initial encounter Fracture type: closed Qualified Code(s): S32.001A - Stable burst fracture of unspecified lumbar vertebra, initial encounter for closed fracture
[2021-07-27] MEDS ORDERED: VANCOMYCIN TROUGH ONE (11:30)
--- NOTE | 2021-07-27 14:46 | Pharmacy Report ---
Pharmacy Vanc AUC Short Note - Date of Service July 27, 2021 - Assessment & Plan Assessment * Mr Little is an 86 year old M receiving Vancomycin for treatment of MRSA UTI. * Pertinent microbiologic data includes: Blood cx negative, UCx growing MRSA on 07/16 and 07/18 (Vanc KRISTA: 2) * Day #9/10 of antimicrobial therapy. * Vanc level obtained today indicates that pt remains stable on current regimen. Plan Vancomycin * AUC/KRISTA is the preferred PK/PD target for vancomycin * AUC guided dosing is effective and associated with decreased risk of nephrotoxicity compared to traditional trough targets * Trough level of 14.4 mcg/mL is predicted to achieve target AUC/KRISTA of 400-600 mg/L.hr and may be associated with a 10% risk of nephrotoxicity * Continue dose of 750 mg IV every 12 hours * No further levels have been ordered at this time. If patient's therapy is extended beyond 10 days, will consider the need for additional levels in 2-3 days. Pharmacy will continue to follow and will adjust dose/frequency as necessary. Thank you.
--- NOTE | 2021-07-27 15:18 | Discharge Summary ---
Date of Service July 27, 2021 Admission HPI Per Admitting Provider This is an 86-year-old male who has a significant past medical history of CAD with history of CABG and stents, HTN, HLD, insulin-dependent diabetes, CHF, sinus node dysfunction status post permanent pacemaker, history of splenectomy, gout, dementia, history of pancreatic cancer, history of intracerebral hemorrhage who presents to ED with complaints of back pain times several weeks. Of significance patient was hospitalized 06/27-07/02 secondary to altered mental status and possible sepsis. At that time there was no clear source of infection found. He was initially treated with IV antibiotics but this was since dis continued. He initially presented to hospital secondary to fever and frequent falls. He was seen and evaluated by PT and OT and felt candidate for acute inpatient rehab. He went to [facility] rehab. He finished his course of rehab and was discharged back to his personal care facility at [facility] yesterday on 07/15/2021. While back at [facility] he complained of significant left hip and back pain. There has been no fall since returning to [facility]. He was screaming trying to get out of bed per staff. Patient has underlying dementia and history able to be obtained but unknown reliability. States he has had frequent falls but nothing recently. He complains of pain in his low back bilaterally without radicular symptoms including pain, numbness or tingling. He does have a Camejo catheter in place, although he denied this. He denies any recent fever, chills, sweats, lightheadedness, dizziness, chest pain, shortness breath, cough, nausea, vomiting, abdominal pain. When discussing CAT scan results regarding L1 burst fracture and spine he states when he was in high school he had an fracture of his back and feels this was related to that. In ED pt remained hemodynamically stable. CT lumbar spine did reveal an acute L1 burst fracture with 25% loss of vertebral body height and disruption of posterior cortex. Fracture extends into the anterior aspects of bilateral pedi cles. Several old left-sided transverse process fractures were noted as well. CT abdomen pelvis also revealed an acute minimally displaced fracture at the sacrococcygeal junction. ED provider spoke with orthopedic spine Dr. Graham who recommended inpatient admission and possible surgical evaluation. Admission Exam (Per Admitting) Constitutional Constitutional: Tall, elderly, male, WD/WN, vitals as above, NAD, lying in bed, answers questions appropriately, alert and oriented x3 but only to basics Head: Normocephalic, Atraumatic Eyes: PERRL, conjunctivae normal, anicteric sclerae ENMT: external ear and nose normal, oropharynx normal Neck: trachea midline, no thyromegaly normal visual inspection Respiratory: normal respiratory effort, lungs clear to auscultation, no wheeze, rales, rhonchi. Normal insp/exp effort, no accessory muscle use Cardiovascular: Regular rate, irregular rhythm, no murmur, no edema Vessels: no JVD or carotid bruit Chest: normal inspection of chest Abdomen: normal bowel sounds, soft, nontender, no hepatosplenomegaly Musculoskeletal: no cyanosis or clubbing, active range of motion to extremities x4, sensation intact Skin: no rashes, warm and dry normal turgor Neurologic: PERRL, EOMI, accommodation nl, no face palsy, no dysarthria CN's II-XI intact bilaterally and moves all extremities Psychiatric: A+Ox3 to basics only, euthymic affect Lymphatic: no cervical or axillary lymphadenopathy : Camejo cath noted draining yellow urine Discharge Data Consultations 07/16/21 17:11 ED Decision to Admit Stat 07/16/21 17:57 Consult Orthopedic Surgery Routine Procedures Performed Operation Date: 07/22/21 07:00 Actual Procedures p L1 Kyphoplasty - Bronson Graham, CT OF THE ABDOMEN AND PELVIS WITH CONTRAST CLINICAL HISTORY: Lumbar/pelvic pain. COMPARISON STUDY: Right upper quadrant ultrasound June 26, 2021. CT of the chest and abdomen April 03, 2010. TECHNIQUE: Following IV administration of 94 mL of Optiray, axial images of the abdomen and pelvis were obtained from the lung bases to the proximal femurs. Images were reviewed in the axial, sagittal, and coronal planes. IV contrast was administered without complication. Automated exposure control was utilized for the study. A dose lowering technique was utilized adhering to the principles of ALARA. CT DOSE: 920.17 mGycm FINDINGS: No pneumatosis, free air or portal venous gas is present. Cardiomegaly is noted. Pacer lead is partially imaged. The liver, spleen, adrenal glands, kidneys and pancreas are unremarkable. There is no biliary or pancreatic ductal dilatation. There is no hydronephrosis. There is no evidence for a bowel obstruction. Colonic diverticulosis is noted without evidence for acute diverticulitis. The appendix is normal. Note is made of marked bladder wall thickening. Camejo balloon within the bladder is noted. Images of the pelvis are degraded by streak artifact from right hip arthroplasty. Note is made of an acute L1 burst fracture with 25% loss of vertebral body height and disruption of the posterior cortex. Fracture extends into the anterior aspects of the bilateral pedicles of L1. There is also an acute minimally displaced fracture of the sacrococcygeal junction. No proximal femoral fracture is noted. No suspicious osseous lesions are identified within visualized skeletal structures. IMPRESSION: 1. Acute L1 burst fracture with 25% loss of vertebral body height and disruption of the posterior cortex. Fracture extends into the anterior aspects of the bilateral pedicles. 2. Acute minimally displaced fracture at the sacrococcygeal junction. 3. Colonic diverticulosis. No evidence for acute diverticulitis. No bowel obstruction. 4. Marked bladder wall thickening. This is nonspecific and probably chronic although could be correlated with urinalysis. ACT 112: Negative or not required by law. Electronically signed by: Wojciech Robbins M.D. 07/16/2021 4:[address] OF THE LUMBAR SPINE WITH CONTRAST CLINICAL HISTORY: Lumbar pain. COMPARISON STUDY: Lumbar spine radiographs May 17, 2010. TECHNIQUE: Axial images of the lumbar spine were obtained following intravenous injection of 94 cc of Optiray 320 IV. Sagittal and coronal reconstructions were viewed. Automated exposure control was utilized for the study. A dose lowering technique was utilized adhering to the principles of ALARA. FINDINGS: Please note that the CT of the abdomen and pelvis will be reported separately. There is an acute L1 burst fracture with 25% loss of vertebral body height. There is disruption of the posterior cortex. Fracture extends into the anterior aspects of both pedicles at this level. Several old left-sided transverse process fractures are noted. No additional acute fractures within the lumbar spine are present. Central canal and neural foramen are suboptimally assessed by CT. Note is made of moderate to severe multilevel degenerative disc disease and facet arthrosis within the lumbar spine. IMPRESSION: 1. Acute L1 burst fracture with 25% loss of vertebral body height and disruption of the posterior cortex. Fracture extends into the anterior aspects of the bilateral pedicles. 2. Moderate to severe multilevel degenerative changes within the lumbar spine. ACT 112: Negative or not required by law. Hospital Course (1) Burst fracture of lumbar vertebra: (2) Back pain: (3) Paroxysmal atrial fibrillation: (4) DM type 2 (diabetes mellitus, type 2): (5) CAD (coronary artery disease): (6) HTN (hypertension): per Dr. Ring's notes with addendum: Yakov is an 86 yr male with H/O CAD with history of CABG and stents, HTN, HLD, insulin-dependent diabetes, CHF, sinus node dysfunction status post permanent pacemaker, history of splenectomy, gout, dementia, history of pancreatic cancer, history of intracerebral hemorrhage who presents to ED with complaints of back pain times several weeks. Burst fracture of lumbar vertebra L1 Secondary to Frequent falls Minimally displaced fracture at sacrococcygeal junction --Lumbar TC: Acute L1 burst fracture with 25% loss of vertebral body height and disruption of the posterior cortex. Fracture extends into the anterior aspects of the bilateral pedicles. Moderate to severe multilevel degenerative changes within the lumbar spine. --TLSO brace trial : patient not tolerating 07/22/21: s/p Kyphoplasty patient remained stable overall after procedure Discussed with prakash Mark to resume warfarin, heparin for DVT prophylaxis tolerating PT/OT sitting up in chair UTI, MRSA Urine culture growing MRSA Blood cultures: Negative Repeat Urine culture: MRSA afebrile on Camejo cath Continue Vancomycin Day 01/30, last day tomorrow then discontinue Hematuria Suspected Urethral injury from patient pulling on camejo Monitor CBC Hematuria resolved CAD with history of CABG CHF HTN Sinus node dysfunction S/P pacemaker Continue statin, Imdur,metoprolol, losartan, ASA, lasix Paroxysmal atrial fibrillation Metoprolol for rate control On Warfarin for anticoagulation Monitor INR: 2.7>1.9>1.6--> 1.2--> 1.5 coumadin 7.5 mg today check INR daily, then adjust coumadin accordingly usually on 2.5mg po warfarin daily DM II HbA1c 9.0 on 06/27/21 lantus/novolog per protocol BSG 155 - 207 Bilateral Toe Wounds daily wound care please Dementia mood stable fall precautions delirium prevention strategies DVT px: Warfarin Heparin subcutaneous until coumadin therapeutic Code Status Full Code [facility] Ortho Spine Dr. Graham in 1 week Follow-up with PCP
[2021-07-27] MEDS: WARFARIN SOD 7.5 MG TAB PO SCH (15:23)
[2021-07-27] MEDS ORDERED: INSULIN GLARGINE SOLOSTAR 100 UNITS/ML 3 ML PEN SC SCH (21:00)
== END 2021-07-27 15:40 | DRG 958 ==
LOC: ED 12:56 → 2W 17:57 → SUATTDRO 17:57 → 2W 22:08
DX: W19.XXXA Unspecified fall, initial encounter; R31.0 Gross hematuria; Z95.5 Presence of coronary angioplasty implant and graft; S32.2XXA Fracture of coccyx, initial encounter for closed fracture; F03.90 Unspecified dementia, unspecified severity, without behavioral disturbance, psychotic disturbance, mood disturbance, and anxiety; N39.0 Urinary tract infection, site not specified; Z88.8 Allergy status to other drugs, medicaments and biological substances; C25.9 Malignant neoplasm of pancreas, unspecified; S32.19XA Other fracture of sacrum, initial encounter for closed fracture; Z88.0 Allergy status to penicillin; X50.3XXA Overexertion from repetitive movements, initial encounter; I11.0 Hypertensive heart disease with heart failure; I50.22 Chronic systolic (congestive) heart failure; S37.30XA Unspecified injury of urethra, initial encounter; E11.9 Type 2 diabetes mellitus without complications; B95.62 Methicillin resistant Staphylococcus aureus infection as the cause of diseases classified elsewhere; Z90.81 Acquired absence of spleen; Y92.230 Patient room in hospital as the place of occurrence of the external cause; S32.012A Unstable burst fracture of first lumbar vertebra, initial encounter for closed fracture; I25.10 Atherosclerotic heart disease of native coronary artery without angina pectoris; M10.9 Gout, unspecified; E78.5 Hyperlipidemia, unspecified; I48.0 Paroxysmal atrial fibrillation; Z79.82 Long term (current) use of aspirin; Z79.01 Long term (current) use of anticoagulants; Y92.89 Other specified places as the place of occurrence of the external cause; Z79.4 Long term (current) use of insulin

== ENCOUNTER 2021-08-08 14:42 | Inpatient (IN) ==
--- NOTE | 2021-08-08 15:11 | Emergency Department Note ---
History of Present Illness General Chief complaint: Back Injury/Pain Stated complaint: LOWER BACK PAIN Time Seen by Provider: 08/08/21 14:52 Source: patient and family (Daughter who is at the bedside and is a nurse in the ED here) Mode of arrival: EMS Limitations: other (Baseline dementia) History of Present Illness Maximum Pain Intensity: 8 This patient is a 86-year-old male who has a history of frequent falls and recent hospitalization and back surgery due to a burst fracture, comes in after falling at [facility]. After his surgery here he was sent to [facility] and was doing well apparently was up and walking. At [facility] he fell last night there is no known head trauma or loss of consciousness however he is on Coumadin. He seemed okay at the time but today was complaining of back pain and they could not get him out of bed. Besides his back he denies any complaints. He has had no fever chills no cough no chest pain no shortness of breath no abdominal pain no numbness or weakness. His daughter thinks that his dementia has gotten worse over the last month. He is up-to-date on his tetanus booster Home Medications Medication Instructions Recorded Confirmed Type amlodipine 5 mg tablet 5 mg PO DAILY 09/04/18 07/16/21 History aspirin 81 mg tablet,delayed 81 mg PO QAM 09/04/18 07/16/21 History release atorvastatin 40 mg tablet 40 mg PO PM 09/04/18 07/16/21 History cholecalciferol (vitamin D3) 25 1,000 unit PO QAM 09/04/18 07/16/21 History mcg (1,000 unit) capsule (Vitamin D3) insulin glargine 100 unit/mL (3 12 units SUBCUT DAILY 09/04/18 07/16/21 History mL) subcutaneous pen (Lantus Solostar U-100 Insulin) isosorbide mononitrate 60 mg 60 mg PO QAM 09/04/18 07/16/21 History tablet,extended release 24 hr losartan 50 mg tablet 50 mg PO QAM 09/04/18 07/16/21 History metoprolol succinate 50 mg 75 mg PO BID 09/04/18 07/16/21 History tablet,extended release 24 hr nitroglycerin 0.4 mg sublingual 0.4 mg SUBLINGUAL UD PRN 09/04/18 07/16/21 History tablet (Nitrostat) pantoprazole 40 mg tablet,delayed 40 mg PO PM 09/04/18 07/16/21 History release polyethylene glycol 3350 17 gram 17 g PO BID PRN 09/04/18 07/16/21 History oral powder packet clindamycin HCl 300 mg capsule 600 mg PO ONCE PRN 09/25/20 07/16/21 History acetaminophen 325 mg tablet 650 mg PO Q6H PRN MDD 3G 06/24/21 07/16/21 History (Tylenol) albuterol sulfate 90 mcg/actuation 2 puff INHALATION Q6H PRN 06/24/21 07/16/21 History aerosol inhaler furosemide 40 mg tablet 40 mg PO DAILY 06/24/21 07/16/21 History lidocaine HCl 4 % topical cream 1 applic TOPICAL Q6H PRN 06/24/21 07/16/21 History (Aspercreme (lidocaine HCl)) loperamide 2 mg capsule 2 mg PO UD PRN MDD 4 CAPS 06/24/21 07/16/21 History sennosides 8.6 mg tablet (Senokot) 8.6 - 17.2 mg PO HS PRN 06/24/21 07/16/21 History calcium carbonate 300 mg (750 mg) 1,500 mg PO TID PRN 06/26/21 07/16/21 History chewable tablet (Antacid Extra Strength (calcium carb)) insulin aspart U-100 100 unit/mL 4 unit SC 1130,1630,2100 07/16/21 07/16/21 History subcutaneous solution (Novolog U-100 Insulin aspart) polyethylene glycol 3350 17 gram 17 g PO DAILY #30 ea 07/27/21 Rx oral powder packet (Miralax) warfarin 7.5 mg tablet (Jantoven) 7.5 mg PO DAILY@1600 #14 tab 07/27/21 Rx Allergies Allergy/AdvReac Type Severity Reaction Status Date / Time Penicillins Allergy Intermediate HIVES Verified 07/16/21 15:24 clopidogrel Allergy Mild INTERNAL Verified 07/16/21 15:24 HIVES Past Med/Surg History Medical History (Updated 08/08/21 @ 17:47 by Richard Suazo MD) ACS (acute coronary syndrome) CAD (coronary artery disease) Chronic anticoagulation DM type 2 (diabetes mellitus, type 2) Dyslipidemia Dyspnea on exertion Gout History of cerebral hemorrhage HTN (hypertension) Pacemaker Pancreatic cancer Paroxysmal atrial fibrillation Sinus node dysfunction SSS (sick sinus syndrome) Surgical History H/O arthroscopic knee surgery H/O colonoscopy H/O esophagogastroduodenoscopy H/O inguinal hernia repair History of pancreatectomy "07/15/2010 Dr. 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 Beliefs That Will Affect Care: None marital status: / Current Living Situation: Personal Care Facility and Other Current Living Situation Comment: Assisted living current occupational status: retired How many Children do You have: 3 Feels Safe at Home: Yes Assistive Devices: Glasses and Walker Review of Systems A total of 10 systems reviewed and were otherwise negative Physical Exam Vital Signs Vital Signs - 24 hr 08/08/21 14:47 08/08/21 15:20 Temperature 36.7 C Temperature Source Oral Pulse Rate 78 Pulse Rate [Apical] 66 Pulse Rhythm [Apical] Regular Pulse Strength [Apical] Normal Respiratory Rate 18 20 Respiratory Effort / Characteristics Non-Labored Spontaneous Non-Labored Spontaneous Respiratory Depth Normal Normal Blood Pressure 130/91 Blood Pressure [Left Arm] 117/70 Blood Pressure Mean 104 Blood Pressure Mean [Left Arm] 85 Pulse Oximetry 98 96 Oxygen Delivery Method Room Air Nasal Cannula Oxygen Flow Rate 2 Sepsis Recent Fever Within 48 Hours No Sepsis New/Unexplained Change in Mental Status No Sepsis Action Taken by Nursing No Action Required General: Well developed well nourished older male who is lying comfortably in bed with his eyes open. He is quiet and appears in no acute distress but when I ask him questions he responds appropriately and accurately. Breathing comfortably on room air. Normal speech HEENT: Normal cephalic atraumatic. Pupils are equal round and reactive to light. Extraocular movements are intact. Oropharynx is pink with moist mucous membranes. No swelling of the mouth lips or tongue. Neck: Supple with a midline trachea. No meningeal signs or stiffness, no JVD or bruits. No Stridor. Chest: Clear to auscultation bilaterally. No wheezes or rhonchi. No increased work of breathing. Heart: Regular rate and rhythm without murmurs or gallops. Abdomen: Soft nontender, nondistended without rebound guarding or rigidity. Extremities: No cyanosis clubbing or edema. No calf tenderness or assymetry Spine/Back. Non tender to palpation. No CVA tenderness Skin: Good turgor without rashes. Neurologic exam: Cranial nerves two through 12 are intact. Motor and sensation are intact and symmetrical throughout. Course Administered Medications Discontinued Medications Ioversol (Optiray 320 100ml) 94 ml IV ONCE ONE Stop: 08/08/21 16:49 Last Admin: 08/08/21 16:48 Dose: 94 ml Documented by: [id number] Morphine Sulfate (Morphine Sulfate 4 Mg/Ml 1 Ml Carp\\Vial) 4 mg IV NOW STA Stop: 08/08/21 16:20 Last Admin: 08/08/21 16:29 Dose: 4 mg Documented by: [id number] Ondansetron HCl (Ondansetron Inj 2 Mg/Ml 2 Ml Vial) 4 mg IV NOW STA Stop: 08/08/21 15:54 Last Admin: 08/08/21 16:29 Dose: 4 mg Documented by: [id number] Medical Decision Making Differential Diagnosis Fall, traumatic injuries, postop complication, infection, anemia, electrolyte or metabolic Medical Records Attestation: I reviewed the patient's medical records. Home Medications Current Medication List: was personally reviewed by me Laboratory Data Attestation: I reviewed the patient's lab results. Result diagrams: 08/08/21 15:20 08/08/21 15:20 Lab Results 08/08/21 08/08/21 08/08/21 Range/Units 15:20 15:20 15:20 WBC 10.49 (4.8-10.8) K/uL RBC 3.78 L (4.7-6.1) M/uL Hgb 11.2 L (14.0-18.0) g/dL Hct 35.0 L (42-52) % MCV 92.6 (80-100) fL MCH 29.6 (25-34) pg MCHC 32.0 (32-36) g/dL RDW Std Deviation 52.9 H (36.4-46.3) fL RDW Coeff of Trevon 15.6 H (11.5-14.5) % Plt Count 324 (130-400) K/uL MPV 10.4 (7.4-10.4) fL Immature Gran % (Auto) 0.2 % Neut % (Auto) 55.0 % Lymph % (Auto) 24.9 % [place] % (Auto) 14.5 % Eos % (Auto) 5.0 % Baso % (Auto) 0.4 % Neut # (Auto) 5.78 (1.4-6.5) K/uL Lymph # (Auto) 2.61 (1.2-3.4) K/uL [place] # (Auto) 1.52 H (0.11-0.59) K/uL Eos # (Auto) 0.52 H (0-0.5) K/uL Baso # (Auto) 0.04 (0-0.2) K/uL Immature Gran # (Auto) 0.02 (0.00-0.02) K/uL PT 25.9 H (9.0-12.0) Seconds INR 2.6 H (0.9-1.1) APTT 42.4 H (21.0-31.0) Seconds PTT Ratio 1.5 Sodium 138 (136-145) mmol/L Potassium 3.6 (3.5-5.1) mmol/L Chloride 102 (98-107) mmol/L Carbon Dioxide 29 (21-32) mmol/L Anion Gap 7 (3-11) BUN 20 (6-23) mg/dl Creatinine 0.99 (0.6-1.4) mg/dl Est Cr Clr Drug Dosing 58.8 ml/min Est GFR ( Amer) 79.6 ml/min Est GFR (Non-Af Amer) 68.7 ml/min BUN/Creatinine Ratio 20.2 H (10-20) Glucose 98 (70-99(Fasting)) mg/dl Calcium 9.0 (8.5-10.1) mg/dl Total Bilirubin 0.8 (0.2-1.0) mg/dl AST 19 (13-39) U/L ALT 11 (7-52) U/L Alkaline Phosphatase 133 H (34-104) U/L Total Protein 7.8 (6.0-8.3) gm/dl Albumin 3.2 L (3.4-5.0) gm/dl Globulin 4.6 H (2.5-4.0) gm/dl Albumin/Globulin Ratio 0.7 L (0.9-2) Urine Color Urine Appearance (Clear) Urine pH (4.5-7.5) Ur Specific [place] (1.000-1.030) Urine Protein (Negative) Urine Glucose (UA) (Negative) Urine Ketones (Negative) Urine Blood (Negative) Urine Nitrite (Negative) Urine Bilirubin (Negative) Urine Urobilinogen (Negative) Ur Leukocyte Esterase (Negative) Urine WBC (Auto) (0-5) /hpf Urine RBC (Auto) (0-4) /hpf U Hyaline Cast (Auto) (0-5) /lpf U Epithel Cells (Auto) (0-5) /lpf Urine Bacteria (Auto) (Negative) Urine Yeast SARS-CoV-2, RNA, NAAT (NEGATIVE) 08/08/21 08/08/21 Range/Units 15:20 15:20 WBC (4.8-10.8) K/uL RBC (4.7-6.1) M/uL Hgb (14.0-18.0) g/dL Hct (42-52) % MCV (80-100) fL MCH (25-34) pg MCHC (32-36) g/dL RDW Std Deviation (36.4-46.3) fL RDW Coeff of Trevon (11.5-14.5) % Plt Count (130-400) K/uL MPV (7.4-10.4) fL Immature Gran % (Auto) % Neut % (Auto) % Lymph % (Auto) % [place] % (Auto) % Eos % (Auto) % Baso % (Auto) % Neut # (Auto) (1.4-6.5) K/uL Lymph # (Auto) (1.2-3.4) K/uL [place] # (Auto) (0.11-0.59) K/uL Eos # (Auto) (0-0.5) K/uL Baso # (Auto) (0-0.2) K/uL Immature Gran # (Auto) (0.00-0.02) K/uL PT (9.0-12.0) Seconds INR (0.9-1.1) APTT (21.0-31.0) Seconds PTT Ratio Sodium (136-145) mmol/L Potassium (3.5-5.1) mmol/L Chloride (98-107) mmol/L Carbon Dioxide (21-32) mmol/L Anion Gap (3-11) BUN (6-23) mg/dl Creatinine (0.6-1.4) mg/dl Est Cr Clr Drug Dosing ml/min Est GFR ( Amer) ml/min Est GFR (Non-Af Amer) ml/min BUN/Creatinine Ratio (10-20) Glucose (70-99(Fasting)) mg/dl Calcium (8.5-10.1) mg/dl Total Bilirubin (0.2-1.0) mg/dl AST (13-39) U/L ALT (7-52) U/L Alkaline Phosphatase (34-104) U/L Total Protein (6.0-8.3) gm/dl Albumin (3.4-5.0) gm/dl Globulin (2.5-4.0) gm/dl Albumin/Globulin Ratio (0.9-2) Urine Color Yellow Urine Appearance Turbid A (Clear) Urine pH 8.5 H (4.5-7.5) Ur Specific [place] 1.013 (1.000-1.030) Urine Protein 1+ H (Negative) Urine Glucose (UA) Negative (Negative) Urine Ketones Negative (Negative) Urine Blood 2+ H (Negative) Urine Nitrite Positive A (Negative) Urine Bilirubin Negative (Negative) Urine Urobilinogen Negative (Negative) Ur Leukocyte Esterase 3+ H (Negative) Urine WBC (Auto) >30 H (0-5) /hpf Urine RBC (Auto) 10-30 H (0-4) /hpf U Hyaline Cast (Auto) 5-10 H (0-5) /lpf U Epithel Cells (Auto) >30 H (0-5) /lpf Urine Bacteria (Auto) 2+ H (Negative) Urine Yeast Not Reportable SARS-CoV-2, RNA, NAAT NEGATIVE (NEGATIVE) Imaging Data Attestation: I personally reviewed and interpreted this imaging study as follows: My Impression: Head CTno acute intracranial hemorrhage seen Radiologist's Impression: Head CT 08/08/21 15:05 CT OF THE HEAD WITHOUT CONTRAST CLINICAL HISTORY: FALL ON COUMADIN COMPARISON STUDY: Head CT June 26, 2021. TECHNIQUE: Helical axial images of the head were obtained without IV contrast. Automated exposure control was utilized for the study. A dose lowering technique was utilized adhering to the principles of ALARA. FINDINGS: No acute intracranial hemorrhage, midline shift or mass effect is p resent. Ventricular system is unremarkable. Basal cisterns are patent. White matter hypodensities are unchanged and favor small vessel disease. 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 The appearance of the brain is unchanged. There may be a small old infarct within the right frontal lobe. There is no acute calvarial fracture. Small amount of fluid within left mastoid air cells is unchanged. There is mild ethmoid sinus mucosal thickening. IMPRESSION: 1. No acute intracranial findings. No change in appearance of the brain. 2. No acute calvarial fracture. ACT 112: Negative or not required by law. Electronically signed by: Wojciech Robbins M.D. 08/08/2021 4:52 PM Abdomen/Pelvis CT 08/08/21 15:07 CT OF THE ABDOMEN AND PELVIS WITH CONTRAST CLINICAL HISTORY: FALL, RECENT BACK SURGERY COMPARISON STUDY: CT of the abdomen and pelvis July 16, 2021. TECHNIQUE: Following IV administration of 94 mL of Optiray, axial images of the abdomen and pelvis were obtained from the lung bases to the proximal femurs. Images were reviewed in the axial, sagittal, and coronal planes. IV contrast was administered without complication. Automated exposure control was utilized for the study. A dose lowering technique was utilized adhering to the principles of ALARA. FINDINGS: No hemoperitoneum or pneumoperitoneum is present. There is no evidence for traumatic injury to the liver, adrenal glands, kidneys or pancreas. The spleen is not visualized. The chest CT will be provided separately. There are trace bilateral pleural effusions and mild interlobular septal thickening. A moderate amount of stool within the colon is noted. There is no evidence for a bowel obstruction. Colonic diverticulosis is noted without evidence for acute diverticulitis. Caliber and wall thickness of small and large bowel are normal. Cherry balloon within the bladder is noted. Bladder wall thickening is again noted. This is unchanged. No acute pelvic or hip fracture is identified. A fracture at the sacrococcygeal junction is unchanged since CT of July 16, 2021. Interval L1 kyphoplasty is noted. There is a small amount of intramuscular hemorrhage within the left paraspinal musculature at the L1 level. This is new since prior CT. IMPRESSION: 1. No evidence for traumatic injury to the solid abdominal viscera. 2. Interval L1 kyphoplasty. Small amount of hyperdense intramuscular hemorrhage within the left paraspinal muscles at the L1 level. This could be traumatic or postprocedural. 3. Redemonstration of a fracture at the sacrococcygeal junction. 2. Bladder wall thickening, similar to prior exam. ACT 112: Negative or not required by law. Electronically signed by: Wojciech Robbins M.D. 08/08/2021 5:[address] 08/08/21 15:07 CT lumbar spine w con CLINICAL HISTORY: FALL, RECENT BACK SURGERY COMPARISON STUDY: CT of the lumbar spine July 16, 2021. TECHNIQUE: Axial images of the lumbar spine were obtained following intravenous injection of 94 cc of Optiray 320 IV. Sagittal and coronal reconstructions were viewed. Automated exposure control was utilized for the study. A dose lowering technique was utilized adhering to the principles of ALARA. FINDINGS: Please note that the CT of the abdomen and pelvis will be reported separately. Note is again made of an L1 fracture which was shown on CT of 2021. Interval kyphoplasty is noted. No additional lumbar spine fractures are present. There is severe multilevel facet arthrosis and moderate multilevel degenerative disc disease. Central canal and neural foramen are suboptimally assessed by CT. A nonunited left transverse process fractures are noted at several levels. Sacroiliac joints are intact. Small intramuscular hematoma within the left paraspinal musculature at the L4 level is better depicted on CT of the abdomen and pelvis. IMPRESSION: 1. Interval L1 kyphoplasty. 2. No additional lumbar spine fractures. 3. Moderate to severe multilevel degenerative changes within lumbar spine. 4. Small intramuscular hemorrhage within the left paraspinal musculature at the L4 level which is better depicted on the CT of the abdomen and pelvis which will be reported separately. ACT 112: Negative or not required by law. Electronically signed by: Wojciech Robbins M.D. 08/08/2021 5:[address] 08/08/21 16:20 CT OF THE CHEST WITH IV CONTRAST CLINICAL HISTORY: Fall. COMPARISON STUDY: Chest CT April 03, 2010. Chest radiograph June 26, 2021. TECHNIQUE: Following IV administration of 94 mL of Optiray, helical axial images of the chest were obtained. Sagittal and coronal reconstructions were viewed as well as maximal intensity projections on an independent 3-D workstation. Automated exposure control was utilized for the study. A dose lowering technique was utilized adhering to the principles of ALARA. CT DOSE: 2068.52 mGy.cm FINDINGS: A dual-lead left pacemaker is in place. There are median sternotomy wires. Cardiomegaly is noted. There is no evidence for traumatic injury to the thoracic aorta. No pericardial effusion. Extensive coronary artery calcification is present. There is no mediastinal hematoma. There are prominent mediastinal lymph nodes which are probably benign. No pneumothorax is present. There is no pulmonary contusion. Subpleural opacities favor atelectasis. Lungs are suboptimally assessed due to respiratory motion. There are trace bilateral pleural effusions. No acute rib fractures are identified. No acute thoracic sp ine fracture is identified. Abdomen and pelvis will be reported separately. IMPRESSION: 1. No acute traumatic findings within the chest. 2. No pneumothorax. Trace bilateral pleural effusions. 3. Cardiomegaly. Extensive coronary artery calcification. ACT 112: Negative or not required by law. Electronically signed by: Wojciech Robbins M.D. 08/08/2021 5:02 PM ECG Data Attestation: I personally reviewed and interpreted this ECG as follows: Indication: + weakness Rate (beats per minute): 61 Rhythm: + other (Ventricular paced rhythm) ECG Intervals/blocks: + Normal QT ECG [place]: + Normal ECG ST segments: + Normal ST segments ECG Findings: + PVCs; no PACs Comparison ECG Date: from (07/16/21) Change: no significant change MDM Narrative This patient comes in as described above he suffered a fall last evening. He has had back pain today he with recent back surgery. I did order CAT scan of the abdomen and pelvis he is on Coumadin. His vital signs are stable. His daughter thinks that he has had worsening dementia over the last month or so. He is been in our facility since then he seems like he answers questions appropriately here now. Blood work was obtained he was reassessed frequently. EKG shows a paced rhythm without ischemic changes. He has no significant electrolyte or metabolic abnormalities. He has nothing to suggest sepsis. His urinalysis does suggest a UTI but he does have a Cherry catheter in place. CAT scan of the head and chest were unremarkable. CAT scan of the abdomen and lumbar spine show no acute fractures. There is a small ocular hematoma which may be from trauma or postop. Given the fact that he has a lot of pain, I think it likely may be acute he did receive morphine 4 mg IV and Zofran 4 mg IV prior to CT he tolerated this well and is sleeping but easily wakes up he does desaturate to about 90% when sleeping so was placed on 2 L oxygen nasal cannula. I do think he needs to be admitted for pain management and observation he will likely need placement at a higher level of care as well. I have consulted with Dr. Kramer and will see the patient in the ER she also has ordered Rocephin for possible UTI. The daughter is in agreement with the plan I talked her at length about his CODE STATUS and she says that she is a healthcare power of city attorney and states that he would want to be DNR and the family is all in agreement with this. They do have paperwork at home somewhere but she does not have it with her. I think this is reasonable given the patient's wishes and his age and comorbidities. Dr. Kramer saw the patient in the ER. 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 Discharge Plan Visit Data Chief Complaint: Back Injury/Pain Stated Complaint: LOWER BACK PAIN ED Provider: Richard Suazo Discharge Problem: Intramuscular hematoma, Fall, Back pain, Lab test negative for COVID-19 virus, DNR (do not resuscitate), UTI (urinary tract infection), Dementia, group home (current) use of anticoagulants Forms Stand Alone Forms: My [facility] Prescriptions Prescriptions: No Action amlodipine 5 mg tablet 5 mg PO DAILY RF: 0 losartan 50 mg tablet 50 mg PO QAM RF: 0 atorvastatin 40 mg tablet 40 mg PO PM RF: 0 metoprolol succinate 50 mg tablet extended release 24 hr 75 mg PO BID RF: 0 aspirin 81 mg Tablet,Delayed Release (Dr/Ec) 81 mg PO QAM RF: 0 isosorbide mononitrate 60 mg tablet extended release 24 hr 60 mg PO QAM RF: 0 pantoprazole 40 mg tablet,delayed release (DR/EC) 40 mg PO PM RF: 0 cholecalciferol (vitamin D3) [Vitamin D3] 1,000 unit Capsule 1,000 unit PO QAM RF: 0 Lantus Solostar U-100 Insulin 100 unit/mL (3 mL) insulin pen 12 units subcut DAILY RF: 0 polyethylene glycol 3350 17 gram Powder In Packet 17 g PO BID PRN (Reason: Constipation) RF: 0 nitroglycerin [Nitrostat] 0.4 mg Tablet, Sublingual 0.4 mg sublingual UD PRN (Reason: Chest Pain) RF: 0 calcium carbonate [Antacid Ext Str (calcium carb)] 300 mg (750 mg) Tablet,Chewable 1,500 mg PO TID PRN (Reason: Indigestion) RF: 0 clindamycin HCl 300 mg capsule 600 mg PO ONCE PRN (Reason: pretreat for dental appt) RF: 0 lidocaine HCl [Aspercreme (lidocaine HCl)] 4 % Cream 1 applic TOPICAL Q6H PRN (Reason: Pain) RF: 0 sennosides [Senokot] 8.6 mg tablet 8.6 - 17.2 mg PO HS PRN (Reason: Constipation) RF: 0 loperamide 2 mg Capsule 2 mg PO UD MDD 4 CAPS PRN (Reason: Diarrhea) RF: 0 furosemide 40 mg tablet 40 mg PO DAILY RF: 0 acetaminophen [Tylenol] 325 mg Tablet 650 mg PO Q6H MDD 3G PRN (Reason: Pain) RF: 0 albuterol sulfate 90 mcg/actuation HFA aerosol inhaler 2 puff INHALATION Q6H PRN (Reason: Wheezing) RF: 0 insulin aspart U-100 [Novolog U-100 Insulin aspart] 100 unit/mL solution 4 unit SC 1130,1630,2100 RF: 0 warfarin [Jantoven] 7.5 mg Tablet 7.5 mg PO DAILY@1600 Qty: 14 RF: 0 polyethylene glycol 3350 [Miralax] 17 gram Powder In Packet 17 g PO DAILY Qty: 30 RF: 0 [facility] [Primary Care Provider] -
[2021-08-08 15:52] LABS: Appearance Urine Turbid (Clear); Bacteria Urine Automated 2+ (Negative); Bilirubin Urine Negative (Negative); Blood Urine 2+ (Negative); Color Urine Yellow; Epithelial Cell Urine Auto >30 /lpf (0-5); Glucose Urine UA Negative (Negative); Ketones Urine Negative (Negative); Leukocyte Esterase Urine 3+ (Negative); Nitrite Urine Positive (Negative); Specific Gravity Urine 1.013 (1.000-1.030); Urobilinogen Urine Negative (Negative); WBC Urine Automated >30 /hpf (0-5); pH Urine 8.5 (4.5-7.5)
[2021-08-08] MEDS ORDERED: ONDANSETRON INJ 2 MG/ML 2 ML VIAL IV STA (15:53)
[2021-08-08 15:54] LABS: Basophils # (auto) 0.04 K/uL (0-0.2); Basophils % (auto) 0.4 %; Eosinophils # (auto) 0.52 K/uL (0-0.5); Hemoglobin 11.2 g/dL (14.0-18.0); Immature Granulocytes # (auto) 0.02 K/uL (0.00-0.02); Immature Granulocytes % (auto) 0.2 %; Lymphocytes # (auto) 2.61 K/uL (1.2-3.4); Lymphocytes % (auto) 24.9 %; Mean Corpuscular Hemoglobin 29.6 pg (25-34); Mean Corpuscular Volume 92.6 fL (80-100); Mean Platelet Volume 10.4 fL (7.4-10.4); Monocytes # (auto) 1.52 K/uL (0.11-0.59); Monocytes % (auto) 14.5 %; Neutrophils # (auto) 5.78 K/uL (1.4-6.5); Platelet Count 324 K/uL (130-400); RDW Coefficient of Variation 15.6 % (11.5-14.5); RDW Standard Deviation 52.9 fL (36.4-46.3); Red Blood Count 3.78 M/uL (4.7-6.1); White Blood Count 10.49 K/uL (4.8-10.8)
[2021-08-08 16:01] LABS: INR 2.6 (0.9-1.1); Partial Thromboplastin Ratio 1.5; Partial Thromboplastin Time 42.4 Seconds (21.0-31.0); Protein Urine 1+ (Negative); Prothrombin Time 25.9 Seconds (9.0-12.0)
[2021-08-08 16:11] LABS: Albumin Globulin Ratio 0.7 (0.9-2); Albumin Level 3.2 gm/dl (3.4-5.0); BUN Creatinine Ratio 20.2 (10-20); Bilirubin,Total 0.8 mg/dl (0.2-1.0); Creatinine Clr Calc Pharmacy 58.8 ml/min; Est GFR (African American) 79.6 ml/min; Est GFR (Non-African American) 68.7 ml/min; Globulin 4.6 gm/dl (2.5-4.0); Potassium 3.6 mmol/L (3.5-5.1); Total Protein 7.8 gm/dl (6.0-8.3)
[2021-08-08] MEDS ORDERED: MoRPHine SULFATE 4 MG/ML 1 ML CARP\\VIAL IV STA (16:19)
[2021-08-08] MEDS ORDERED: OPTIRAY 320 100ml IV ONE (16:48)
--- NOTE | 2021-08-08 16:54 | CT Scan Report ---
CT OF THE HEAD WITHOUT CONTRAST CLINICAL HISTORY: FALL ON COUMADIN COMPARISON STUDY: Head CT June 26, 2021. TECHNIQUE: Helical axial images of the head were obtained without IV contrast. Automated exposure con trol was utilized for the study. A dose lowering technique was utilized adhering to the principles o f ALARA. FINDINGS: No acute intracranial hemorrhage, midline shift or mass effect is present. Ventricular syst em is unremarkable. Basal cisterns are patent. White matter hypodensities are unchanged and favor sma ll vessel disease. 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 The appearance of the brain is unchanged. There may be a small old infarct within the right frontal lobe . There is no acute calvarial fracture. Small amount of fluid within left mastoid air cells is unchan ged. There is mild ethmoid sinus mucosal thickening. IMPRESSION: 1. No acute intracranial findings. No change in appearance of the brain. 2. No acute calvarial fracture. ACT 112: Negative or not required by law. Electronically signed by: Wojciech Robbins M.D. 08/08/2021 4:52 PM
--- NOTE | 2021-08-08 17:04 | CT Scan Report ---
CT OF THE CHEST WITH IV CONTRAST CLINICAL HISTORY: Fall. COMPARISON STUDY: Chest CT April 03, 2010. Chest radiograph June 26, 2021. TECHNIQUE: Following IV administration of 94 mL of Optiray, helical axial images of the chest were o btained. Sagittal and coronal reconstructions were viewed as well as maximal intensity projections o n an independent 3-D workstation. Automated exposure control was utilized for the study. A dose low ering technique was utilized adhering to the principles of ALARA. CT DOSE: 2068.52 mGy.cm FINDINGS: A dual-lead left pacemaker is in place. There are median sternotomy wires. Cardiomegaly is noted. There is no evidence for traumatic injury to the thoracic aorta. No pericardial effusion. Ext ensive coronary artery calcification is present. There is no mediastinal hematoma. There are prominen t mediastinal lymph nodes which are probably benign. No pneumothorax is present. There is no pulmonar y contusion. Subpleural opacities favor atelectasis. Lungs are suboptimally assessed due to respirato ry motion. There are trace bilateral pleural effusions. No acute rib fractures are identified. No acu te thoracic spine fracture is identified. Abdomen and pelvis will be reported separately. IMPRESSION: 1. No acute traumatic findings within the chest. 2. No pneumothorax. Trace bilateral pleural effusions. 3. Cardiomegaly. Extensive coronary artery calcification. ACT 112: Negative or not required by law. Electronically signed by: Wojciech Robbins M.D. 08/08/2021 5:02 PM
--- NOTE | 2021-08-08 17:10 | CT Scan Report ---
CT OF THE ABDOMEN AND PELVIS WITH CONTRAST CLINICAL HISTORY: FALL, RECENT BACK SURGERY COMPARISON STUDY: CT of the abdomen and pelvis July 16, 2021. TECHNIQUE: Following IV administration of 94 mL of Optiray, axial images of the abdomen and pelvis we re obtained from the lung bases to the proximal femurs. Images were reviewed in the axial, sagittal, and coronal planes. IV contrast was administered without complication. Automated exposure control wa s utilized for the study. A dose lowering technique was utilized adhering to the principles of ALARA . FINDINGS: No hemoperitoneum or pneumoperitoneum is present. There is no evidence for traumatic injury to the liver, adrenal glands, kidneys or pancreas. The spleen is not visualized. The chest CT will b e provided separately. There are trace bilateral pleural effusions and mild interlobular septal thick ening. A moderate amount of stool within the colon is noted. There is no evidence for a bowel obstruc tion. Colonic diverticulosis is noted without evidence for acute diverticulitis. Caliber and wall thi ckness of small and large bowel are normal. Cherry balloon within the bladder is noted. Bladder wall t hickening is again noted. This is unchanged. No acute pelvic or hip fracture is identified. A fractur e at the sacrococcygeal junction is unchanged since CT of July 16, 2021. Interval L1 kyphoplasty is noted. There is a small amount of intramuscular hemorrhage within the left paraspinal musculature at the L1 level. This is new since prior CT. IMPRESSION: 1. No evidence for traumatic injury to the solid abdominal viscera. 2. Interval L1 kyphoplasty. Small amount of hyperdense intramuscular hemorrhage within the left davon elian muscles at the L1 level. This could be traumatic or postprocedural. 3. Redemonstration of a fracture at the sacrococcygeal junction. 2. Bladder wall thickening, similar to prior exam. ACT 112: Negative or not required by law. Electronically signed by: Wojciech Robbins M.D. 08/08/2021 5:08 PM
--- NOTE | 2021-08-08 17:17 | CT Scan Report ---
CT lumbar spine w con CLINICAL HISTORY: FALL, RECENT BACK SURGERY COMPARISON STUDY: CT of the lumbar spine July 16, 2021. TECHNIQUE: Axial images of the lumbar spine were obtained following intravenous injection of 94 cc of Optiray 320 IV. Sagittal and coronal reconstructions were viewed. Automated exposure control was uti lized for the study. A dose lowering technique was utilized adhering to the principles of ALARA. FINDINGS: Please note that the CT of the abdomen and pelvis will be reported separately. Note is agai n made of an L1 fracture which was shown on CT of July 16, 2021. Interval kyphoplasty is noted. N o additional lumbar spine fractures are present. There is severe multilevel facet arthrosis and moder ate multilevel degenerative disc disease. Central canal and neural foramen are suboptimally assessed by CT. A nonunited left transverse process fractures are noted at several levels. Sacroiliac joints a re intact. Small intramuscular hematoma within the left paraspinal musculature at the L4 level is bet ter depicted on CT of the abdomen and pelvis. IMPRESSION: 1. Interval L1 kyphoplasty. 2. No additional lumbar spine fractures. 3. Moderate to severe multilevel degenerative changes within lumbar spine. 4. Small intramuscular hemorrhage within the left paraspinal musculature at the L4 level which is bet ter depicted on the CT of the abdomen and pelvis which will be reported separately. ACT 112: Negative or not required by law. Electronically signed by: Wojciech Robbins M.D. 08/08/2021 5:15 PM
--- NOTE | 2021-08-08 17:37 | History & Physical Report ---
Date of Service August 08, 2021 Assessment & Plan (1) Fall: Plan: Presents after a fall since returning from [facility] rehab. It is difficult to examine patient as he is resisting exam. He is also disoriented so I'm not sure where he was or is having pain now. He is notable on scheduled hydroxyzine 25mg TID which will be stopped. Oxycodone may be continued for now but will add scheduled Tylenol to lessen the need for narcotics. He suffered a small intramuscular hematoma. As he has chronic atrial fibrillation with a h/o stroke, will plan to continue his coumadin. Will also continue his aspirin for now with h/o CAD. INR is within goal range. Will trend INR daily. PT/OT consulted. Fall also may have been precipitated by catheter-associated UTI with plan for antibiotics below. (2) UTI (urinary tract infection): Plan: Recent camejo placement within the last 2-4 weeks at [facility] for urinary retention. Since that time he has been placed on Flomax. Would try TOV during this hospital stay once he is more awake give the UTI present on admisison. Cont Rocephin pending culture results and clinical improvement. (3) Back pain: Plan: Cont supportive care for now. He is s/p L1 kyphoplasty on 07/22. (4) Intramuscular hematoma: Plan: Likely from his fall and being on anticoagulants. Supportive care for the time being. Cont warfarin and aspirin as above. (5) Dementia: Plan: Chronic, end stage. Reorient as needed. (6) HTN (hypertension): Plan: chronic, stable. Cont losartan per home regimen. Cont pain control efforts as above. (7) CAD (coronary artery disease): Plan: chronic, stable. h/o CABG. Cont current medical therapy per home regimen. (8) Chronic anticoagulation: Plan: h/o chronic atrial fibrillation and stroke. Cont warfarin as above with daily INR. (9) DM type 2 (diabetes mellitus, type 2): Plan: chronic, uncontrolled. Cont basal/bolus insulin per hospital protocol. (10) DVT prophylaxis: Plan: warfarin with therapeutic INR DNR per my discussion with his daughter on admission, who is a nurse. Dipso-to floor DO Naheed Stanton Hospitalist History of Present Illness Chief Complaint: falls and weakness Primary Care Provider: [facility] Per daughter, patient is getting worse recently. Multiple recent falls. Now weakness and worsening confusion. He lives at [facility]. Recently was in [facility] twice and most recently was post-op s/p kyphoplasty during last admission. He did better at [facility] this last time and was walking with a rolling walker and was doing well, following instructions, etc. He was just discharged from there looking well on Tuesday. Once he was back at [facility], daughter was called that he fell again. He is noted to be on scheduled hydroxyzine since discharge from the hospital along with PRN oxycodone for management of post-operative pain. He had two doses of oxycodone at today and also had some morphine in the ER. By the time I spoke with him he was confused and disoriented. He had his eyes closed and resisted attempts to open them or any attempt for physical exam. Daughter states that he was lethargic even prior to the morphine given. Camejo is in place on arrival. It has been there for about two weeks now. This was placed at [facility] the first time he was there, for urinary retention. As it is not chronic, and since its placement he was started on Flomax, a TOV was considered with daughter on phone. Daughter ideally would like him back at [facility] and may consider Hospice or other such options if he doesn't clinically respond to treatment. Allergies Allergy/AdvReac Type Severity Reaction Status Date / Time shellfish derived Allergy Severe anaphylaxis Verified 08/08/21 19:25 Penicillins Allergy Intermediate HIVES Verified 08/08/21 18:38 clopidogrel Allergy Mild INTERNAL Verified 08/08/21 18:38 HIVES Home Medications Medication Instructions Recorded Confirmed Type amlodipine 5 mg tablet 5 mg PO DAILY 09/04/18 08/08/21 History aspirin 81 mg tablet,delayed 81 mg PO QAM 09/04/18 08/08/21 History release atorvastatin 40 mg tablet 40 mg PO PM 09/04/18 08/08/21 History cholecalciferol (vitamin D3) 25 1,000 unit PO QAM 09/04/18 08/08/21 History mcg (1,000 unit) capsule (Vitamin D3) insulin glargine 100 unit/mL (3 12 units SUBCUT QAM 09/04/18 08/08/21 History mL) subcutaneous pen (Lantus Solostar U-100 Insulin) isosorbide mononitrate 60 mg 60 mg PO QAM 09/04/18 08/08/21 History tablet,extended release 24 hr losartan 50 mg tablet 50 mg PO QAM 09/04/18 08/08/21 History metoprolol succinate 50 mg 75 mg PO BID 09/04/18 08/08/21 History tablet,extended release 24 hr nitroglycerin 0.4 mg sublingual 0.4 mg SUBLINGUAL UD PRN 09/04/18 08/08/21 History tablet (Nitrostat) pantoprazole 40 mg tablet,delayed 40 mg PO PM 09/04/18 08/08/21 History release polyethylene glycol 3350 17 gram 17 g PO BID PRN 09/04/18 08/08/21 History oral powder packet clindamycin HCl 300 mg capsule 600 mg PO ONCE PRN 09/25/20 08/08/21 History acetaminophen 325 mg tablet 650 mg PO Q6H PRN MDD 3G 06/24/21 08/08/21 History (Tylenol) albuterol sulfate 90 mcg/actuation 2 puff INHALATION Q6H PRN 06/24/21 08/08/21 History aerosol inhaler furosemide 40 mg tablet 40 mg PO DAILY 06/24/21 08/08/21 History loperamide 2 mg capsule 2 mg PO UD PRN MDD 4 CAPS 06/24/21 08/08/21 History sennosides 8.6 mg tablet (Senokot) 8.6 - 17.2 mg PO HS PRN 06/24/21 08/08/21 History calcium carbonate 300 mg (750 mg) 1,500 mg PO TID PRN 06/26/21 08/08/21 History chewable tablet (Antacid Extra Strength (calcium carb)) insulin aspart U-100 100 unit/mL 4 unit SC 1130,1630,2100 07/16/21 08/08/21 History subcutaneous solution (Novolog U-100 Insulin aspart) warfarin 7.5 mg tablet (Jantoven) 7.5 mg PO DAILY@1600 #14 tab 07/27/21 08/08/21 Rx hydroxyzine HCl 25 mg tablet 25 mg PO TID 08/08/21 08/08/21 History magnesium oxide 400 mg PO DAILY 08/08/21 08/08/21 History oxycodone 5 mg tablet 5 mg PO Q6H PRN 08/08/21 08/08/21 History tamsulosin 0.4 mg capsule 0.4 mg PO HS 08/08/21 08/08/21 History Past Med/Surg History Medical History ACS (acute coronary syndrome) CAD (coronary artery disease) Chronic anticoagulation DM type 2 (diabetes mellitus, type 2) Dyslipidemia Dyspnea on exertion Gout History of cerebral hemorrhage HTN (hypertension) Pacemaker Pancreatic cancer Paroxysmal atrial fibrillation Sinus node dysfunction SSS (sick sinus syndrome) Surgical History H/O arthroscopic knee surgery H/O colonoscopy H/O esophagogastroduodenoscopy H/O inguinal hernia repair History of pancreatectomy "07/15/2010 Dr. Pacheco [facility] [place] " S/P CABG x 1 S/P coronary artery stent placement "03/29/03 cardiac cath: RCA - stent of 90% lesion, L circ obtuse kenneth - stent of 80% lesion " S/P splenectomy S/P tonsillectomy and adenoidectomy Family History Other Family history non-contributory Social History Smoking Status: Former smoker Tobacco Type: Cigarettes Hx Alcohol Use: No Hx Substance Use: No Preferred Language: Monegasque Communication Ability: Effective Steel Chipper Required: No Beliefs That Will Affect Care: None marital status: / Current Living Situation: Personal Care Facility Current Living Situation Comment: Assisted living current occupational status: retired How many Children do You have: 3 Other Information That Helps Us Care for You: No Feels Safe at Home: Yes Safety Concerns: Feels Safe At This Time Assistive Devices: Walker Review of Systems Review of Systems: Unable to obtain ROS as patient is disoriented and somnolent, refusing exam. Physical Exam Physical Exam: CONSTITUTIONAL: WNWD, vitals as above, generally well- appearing, NAD EYES: closed, patient resists exam of eyes. ENT: external ear and nose normal, MMM NECK: trachea midline RESPIRATORY: clear to auscultation bilaterally, no crackles, rales or wheezes, normal respiratory effort CARDIOVASCULAR: regular rate and rhythm, S1 and 2 heard without murmurs, gallops or rubs, no JVD, no peripheral edema GASTROINTESTINAL: soft, nontender, ND, no guarding MUSCULOSKELETAL: cannot assess strength as he is resisting exam, head is normocephalic and atraumatic SKIN: warm and dry, no overt wounds or ecchymoses seen. Could not examine the back of his body. NEUROLOGIC: Limited evaluation. Eyes are closed and he won't open them,he is lethargic, no tremor. PSYCHIATRIC: sleepy, disoriented, isn't able to answer what his name is. Results & Data Results & Data ([facility]) Vital Signs (Past 12 Hours) Vital Signs Temp Pulse Pulse Resp BP BP Pulse Ox 08/08/21 15:20 66 20 117/70 96 08/08/21 14:47 36.7 C 78 18 130/91 98 Laboratory Results Short CBC 08/08/21 Range/Units 15:20 WBC 10.49 (4.8-10.8) K/uL Hgb 11.2 L (14.0-18.0) g/dL Hct 35.0 L (42-52) % Plt Count 324 (130-400) K/uL BMP 08/08/21 15:20 Sodium 138 Potassium 3.6 Chloride 102 Carbon Dioxide 29 BUN 20 Creatinine 0.99 Glucose 98 Calcium 9.0 Liver Function 08/08/21 Range/Units 15:20 Total Bilirubin 0.8 (0.2-1.0) mg/dl AST 19 (13-39) U/L ALT 11 (7-52) U/L Alkaline Phosphatase 133 H (34-104) U/L Albumin 3.2 L (3.4-5.0) gm/dl Urine 08/08/21 Range/Units 15:20 Urine Color Yellow Urine Appearance Turbid A (Clear) Urine pH 8.5 H (4.5-7.5) Ur Specific [place] 1.013 (1.000-1.030) Urine Protein 1+ H (Negative) Urine Glucose (UA) Negative (Negative) Diagnostic Findings Head CT 08/08/21 15:05 CT OF THE HEAD WITHOUT CONTRAST CLINICAL HISTORY: FALL ON COUMADIN COMPARISON STUDY: Head CT June 26, 2021. TECHNIQUE: Helical axial images of the head were obtained without IV contrast. Automated exposure control was utilized for the study. A dose lowering technique was utilized adhering to the principles of ALARA. FINDINGS: No acute intracranial hemorrhage, midline shift or mass effect is present. Ventricular system is unremarkable. Basal cisterns are patent. White matter hypodensities are unchanged and favor small vessel disease. 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 The appearance of the brain is unchanged. There may be a small old infarct within the right frontal lobe. There is no acute calvarial fracture. Small amount of fluid within left mastoid air cells is unchanged. There is mild ethmoid sinus mucosal thickening. IMPRESSION: 1. No acute intracranial findings. No change in appearance of the brain. 2. No acute calvarial fracture. ACT 112: Negative or not required by law. Electronically signed by: Wojciech Robbins M.D. 08/08/2021 4:52 PM Abdomen/Pelvis CT 08/08/21 15:07 CT OF THE ABDOMEN AND PELVIS WITH CONTRAST CLINICAL HISTORY: FALL, RECENT BACK SURGERY COMPARISON STUDY: CT of the abdomen and pelvis July 16, 2021. TECHNIQUE: Following IV administration of 94 mL of Optiray, axial images of the abdomen and pelvis were obtained from the lung bases to the proximal femurs. Images were reviewed in the axial, sagittal, and coronal planes. IV contrast was administered without complication. Automated exposure control was utilized for the study. A dose lowering technique was utilized adhering to the principles of ALARA. FINDINGS: No hemoperitoneum or pneumoperitoneum is present. There is no evidence for traumatic injury to the liver, adrenal glands, kidneys or pancreas. The spleen is not visualized. The chest CT will be provided separately. There are trace bilateral pleural effusions and mild interlobular septal thickening. A moderate amount of stool within the colon is noted. There is no evidence for a bowel obstruction. Colonic diverticulosis is noted without evidence for acute diverticulitis. Caliber and wall thickness of small and large bowel are normal. Camejo balloon within the bladder is noted. Bladder wall thickening is again noted. This is unchanged. No acute pelvic or hip fracture is identified. A fracture at the sacrococcygeal junction is unchanged since CT of July 16, 2021. Interval L1 kyphoplasty is noted. There is a small amount of intramuscular hemorrhage within the left paraspinal musculature at the L1 level. This is new since prior CT. IMPRESSION: 1. No evidence for traumatic injury to the solid abdominal viscera. 2. Interval L1 kyphoplasty. Small amount of hyperdense intramuscular hemorrhage within the left paraspinal muscles at the L1 level. This could be traumatic or postprocedural. 3. Redemonstration of a fracture at the sacrococcygeal junction. 2. Bladder wall thickening, similar to prior exam. ACT 112: Negative or not required by law. Electronically signed by: Wojciech Robbins M.D. 08/08/2021 5:[address] 08/08/21 15:07 CT lumbar spine w con CLINICAL HISTORY: FALL, RECENT BACK SURGERY COMPARISON STUDY: CT of the lumbar spine July 16, 2021. TECHNIQUE: Axial images of the lumbar spine were obtained following intravenous injection of 94 cc of Optiray 320 IV. Sagittal and coronal reconstructions were viewed. Automated exposure control was utilized for the study. A dose lowering technique was utilized adhering to the principles of ALARA. FINDINGS: Please note that the CT of the abdomen and pelvis will be reported separately. Note is again made of an L1 fracture which was shown on CT of July 16, 2021. Interval kyphoplasty is noted. No additional lumbar spine fractures are present. There is severe multilevel facet arthrosis and moderate multilevel degenerative disc disease. Central canal and neural foramen are suboptimally assessed by CT. A nonunited left transverse process fractures are noted at several levels. Sacroiliac joints are intact. Small intramuscular hematoma within the left paraspinal musculature at the L4 level is better depicted on CT of the abdomen and pelvis. IMPRESSION: 1. Interval L1 kyphoplasty. 2. No additional lumbar spine fractures. 3. Moderate to severe multilevel degenerative changes within lumbar spine. 4. Small intramuscular hemorrhage within the left paraspinal musculature at the L4 level which is better depicted on the CT of the abdomen and pelvis which will be reported separately. ACT 112: Negative or not required by law. Electronically signed by: Wojciech Robbins M.D. 08/08/2021 5:[address] 08/08/21 16:20 CT OF THE CHEST WITH IV CONTRAST CLINICAL HISTORY: Fall. COMPARISON STUDY: Chest CT April 03, 2010. Chest radiograph June 26, 2021. TECHNIQUE: Following IV administration of 94 mL of Optiray, helical axial images of the chest were obtained. Sagittal and coronal reconstructions were viewed as well as maximal intensity projections on an independent 3-D workstation. Automated exposure control was utilized for the study. A dose lowering technique was utilized adhering to the principles of ALARA. CT DOSE: 2068.52 mGy.cm FINDINGS: A dual-lead left pacemaker is in place. There are median sternotomy wires. Cardiomegaly is noted. There is no evidence for traumatic injury to the thoracic aorta. No pericardial effusion. Extensive coronary artery calcification is present. There is no mediastinal hematoma. There are prominent mediastinal lymph nodes which are probably benign. No pneumothorax is present. There is no pulmonary contusion. Subpleural opacities favor atelectasis. Lungs are suboptimally assessed due to respiratory motion. There are trace bilateral pleural effusions. No acute rib fractures are identified. No acute thoracic spine fracture is identified. Abdomen and pelvis will be reported separately. IMPRESSION: 1. No acute traumatic findings within the chest. 2. No pneumothorax. Trace bilateral pleural effusions. 3. Cardiomegaly. Extensive coronary artery calcification. ACT 112: Negative or not required by law. Electronically signed by: Wojciech Robbins M.D. 08/08/2021 5:02 PM Code Status & VTE Plan VTE Prophylaxis Plan VTE Prophylaxis will be ordered: Yes (1) UTI (urinary tract infection) Hematuria presence: without hematuria Urinary tract infection type: site unspecified Qualified Code(s): N39.0 - Urinary tract infection, site not specified (2) Back pain Back pain laterality: midline Back pain location: low back pain Chronicity: unspecified Sciatica presence: without sciatica Qualified Code(s): M54.50 - Low back pain, unspecified (3) Dementia Dementia behavioral disturbance: without behavioral disturbance Dementia type: unspecified type Qualified Code(s): F03.90 - Unspecified dementia without behavioral disturbance (4) Fall Encounter type: initial encounter Qualified Code(s): W19.XXXA - Unspecified fall, initial encounter
[2021-08-08] MEDS ORDERED: cefTRIAXone SODIUM 2,000 MG in DEXTROSE 5% 50 ML IV ONE (17:45)
[2021-08-08] MEDS ORDERED: GLUCOSE 40% GEL 15 GM TUBE PO PRN (20:06)
[2021-08-08] MEDS ORDERED: DEXTROSE 50% 50 ML SYRINGE IV PRN (20:06)
[2021-08-08] MEDS ORDERED: GLUCOSE 10 TABS/TUBE PO PRN (20:06)
[2021-08-08] MEDS ORDERED: CARBOHYDRATES FOR HYPOGLYCEMIA PO PRN (20:06)
[2021-08-08] MEDS ORDERED: GLUCAGON FOR INJ 1 MG VIAL SQ PRN (20:06)
[2021-08-08] MEDS: INSULIN ASPART PER UNIT SC SCH (21:00)
[2021-08-08] MEDS: ATORVASTATIN 40 MG TAB PO SCH (21:52)
[2021-08-08] MEDS: PANTOprazole 40 MG TAB PO SCH (21:52)
[2021-08-08] MEDS: ACETAMINOPHEN 500 MG TAB PO SCH (21:52)
[2021-08-08] MEDS: TAMSULOSIN HCL 0.4 MG CAP PO SCH (21:52)
[2021-08-08] MEDS: METOPROLOL SUCC 25MG EXT REL TAB PO SCH (21:53)
[2021-08-09] MEDS: ACETAMINOPHEN 500 MG TAB PO SCH ×3 (03:51→16:41)
[2021-08-09 06:37] LABS: Hematocrit (blood only) 34.3 % (42-52); Hemoglobin 10.9 g/dL (14.0-18.0); Mean Corpuscular Hemoglobin 29.7 pg (25-34); Mean Corpuscular Hgb Conc 31.8 g/dL (32-36); Mean Corpuscular Volume 93.5 fL (80-100); Platelet Count 303 K/uL (130-400); RDW Coefficient of Variation 15.8 % (11.5-14.5); RDW Standard Deviation 54.1 fL (36.4-46.3); Red Blood Count 3.67 M/uL (4.7-6.1); White Blood Count 11.46 K/uL (4.8-10.8)
[2021-08-09 07:05] LABS: BUN Creatinine Ratio 17.6 (10-20); Calcium 8.9 mg/dl (8.5-10.1); Creatinine Clr Calc Pharmacy 57.1 ml/min; Est GFR (African American) 76.8 ml/min; Est GFR (Non-African American) 66.2 ml/min; Magnesium 1.9 mg/dl (1.7-2.4); Phosphorus 4.2 mg/dl (2.5-4.9); Potassium 4.1 mmol/L (3.5-5.1)
[2021-08-09] MEDS: METOPROLOL SUCC 25MG EXT REL TAB PO SCH ×2 (07:20→21:44)
[2021-08-09] MEDS: amLODIPine BESYLATE 5 MG TAB PO SCH (07:21)
[2021-08-09] MEDS: FUROSEMIDE 40 MG TAB PO SCH (07:21)
[2021-08-09] MEDS: ISOSORBIDE MONO EXTENDED REL 60 MG TABCR PO SCH (07:21)
[2021-08-09] MEDS: ASPIRIN 81 MG ECTAB PO SCH (07:21)
[2021-08-09] MEDS: LOSARTAN POTASSIUM 50 MG TAB PO SCH (07:21)
[2021-08-09 07:34] LABS: INR 2.9 (0.9-1.1); Prothrombin Time 29.2 Seconds (9.0-12.0)
[2021-08-09] MEDS: INSULIN ASPART PER UNIT SC SCH ×4 (08:18→21:49)
[2021-08-09] MEDS: INSULIN GLARGINE SOLOSTAR 100 UNITS/ML 3 ML PEN SC SCH (08:18)
[2021-08-09] MEDS: oxyCODONE HCL IR 5 MG TAB (IMMEDIATE RELEASE) PO PRN (08:55)
--- NOTE | 2021-08-09 10:33 | Electrocardiogram Report ---
Test Reason : Blood Pressure : / mmHG Vent. Rate : 061 BPM Atrial Rate : 061 BPM P-R Int : 152 ms QRS Dur : 208 ms QT Int : 520 ms P-R-T Axes : 038 -75 093 degrees QTc Int : 523 ms Poor data quality, interpretation may be adversely affected Ventricular-paced rhythm with PVCs Abnormal ECG When compared with ECG of 16-JUL-2021 19:17, Premature ventricular complexes are now Present Vent. rate has decreased BY 8 BPM Confirmed by Chidi Eason ([id number]) on 08/09/2021 10:33:19 AM Referred By: Nagi [facility] Confirmed By:Jayson Eason
--- NOTE | 2021-08-09 15:30 | Hospitalist Progress Note ---
Date of Service August 09, 2021 Assessment & Plan (1) Fall: Plan: (1) Fall: likely secondary to oxycodone, hydroxyzine Plan: Per Dr. Kramer-admitting physician Presents after a fall since returning from [facility] rehab. It is difficult to examine patient as he is resisting exam. He is also disoriented so I'm not sure where he was or is having pain now. He is notable on scheduled hydroxyzine 25mg TID which will be stopped. Oxycodone may be continued for now but will add scheduled Tylenol to lessen the need for narcotics. He suffered a small intramuscular hematoma. As he has chronic atrial fibrillation with a h/o stroke, will plan to continue his coumadin. Will also continue his aspirin for now with h/o CAD. INR is within goal range. Will trend INR daily. PT/OT consulted. Fall also may have been precipitated by catheter-associated UTI with plan for antibiotics below. 08/09/2021 Stable today overall PT OT evaluation (2) UTI (urinary tract infection): Plan: Recent camejo placement within the last 2-4 weeks at [facility] for urinary retention. Since that time he has been placed on Flomax. Would try TOV during this hospital stay once he is more awake give the UTI present on admisison. Cont Rocephin pending culture results and clinical improvement. 08/10/2019 Urine culture: Gram-negative bacilli Continue ceftriaxone IV day #2 Remove Camejo catheter today, trial of voiding, bladder scan every shift Discussed with ERNESTINA Levy (3) Back pain: Plan: Cont supportive care for now. He is s/p L1 kyphoplasty on 07/22. (4) Intramuscular hematoma: Plan: Likely from his fall and being on anticoagulants. Supportive care Monitor while on Coumadin aspirin (5) Dementia: Plan: Chronic, end stage. At baseline Monitor for delirium (6) HTN (hypertension): Plan: chronic BP systolic 90s to 147 Continue losartan Monitor closely (7) CAD (coronary artery disease): Plan: chronic, stable. h/o CABG. No signs of cardiac symptoms Continue cardiac medication (8) Chronic anticoagulation: Plan: h/o chronic atrial fibrillation and stroke. INR 2.9 Continue Coumadin Continue to monitor INR (9) DM type 2 (diabetes mellitus, type 2): Plan: chronic, uncontrolled. Cont basal/bolus insulin per hospital protocol. (10) DVT prophylaxis: Plan: warfarin with therapeutic INR DNR per my discussion with his daughter on admission, who is a nurse. Disposition Pending Resident of [facility] Admission and Anticipated Discharge Date Admission Date: August 08, 2021 Subjective Status post fall, etc. Seen resting in bed, sleeping but easily awakened Comfortable, not in distress Pleasantly confused Denies shortness of breath, chest pain, palpitations, dizziness, nausea vomiting abdominal pain Denies any pain Discussed with RN Cam Patient had breakfast today, took all of his medications No other acute issues Review of Systems Review of Systems: Unobtainable due to cognitive status Physical Exam Physical Exam: General- oriented x 0, not in distress, speaks in sentences with no effort or accessory muscle use Head- atraumatic Eyes- PERRL, EOMI, anicteric ENT- oropharynx clear Neck- supple, no JVD, no adenopathy, no thyromegaly; carotids +2/2, no bruits appreciated Lungs- clear to auscultation bilaterally, no rales/wheezes Heart- normal rate, regular rhythm; no murmur, no gallop, no rub appreciated Abdomen- normal bowel sounds, nondistended, soft, nontender, no masses or hepatosplenomegaly Camejo catheter in place, draining yellow urine Extremities- no pretibial edema, no calf tenderness; peripheral pulses intact Scabbed wounds on bilateral toes Neuro- alert, oriented x 0; CN 2-12 grossly intact; motor 5/5 bilaterally;sensation 100% on all extremities; no other gross focal neurologic deficits Skin- warm & dry Results & Data Results & Data ([facility]) Vital Signs (Past 12 Hours) Vital Signs Temp Pulse Resp BP Pulse Ox 08/09/21 15:22 37.0 C 60 16 95/47 L 93 08/09/21 07:40 36.9 C 60 16 147/81 H 93 all noted and reviewed including below (1) Fall Encounter type: initial encounter Qualified Code(s): W19.XXXA - Unspecified fall, initial encounter
[2021-08-09] MEDS ORDERED: WARFARIN SOD 7.5 MG TAB PO SCH (16:00)
[2021-08-09] MEDS: cefTRIAXone SODIUM 2,000 MG in DEXTROSE 5% 50 ML IV SCH (16:40)
[2021-08-09] MEDS: PANTOprazole 40 MG TAB PO SCH (21:44)
[2021-08-09] MEDS: TAMSULOSIN HCL 0.4 MG CAP PO SCH (21:44)
[2021-08-09] MEDS: ATORVASTATIN 40 MG TAB PO SCH (21:44)
[2021-08-10] MEDS: ACETAMINOPHEN 500 MG TAB PO SCH ×3 (03:59→20:11)
[2021-08-10 07:18] LABS: INR 3.7 (0.9-1.1); Prothrombin Time 36.4 Seconds (9.0-12.0)
[2021-08-10] MEDS: ASPIRIN 81 MG ECTAB PO SCH (08:42)
[2021-08-10] MEDS: amLODIPine BESYLATE 5 MG TAB PO SCH (08:42)
[2021-08-10] MEDS: METOPROLOL SUCC 25MG EXT REL TAB PO SCH ×2 (08:42→20:08)
[2021-08-10] MEDS: FUROSEMIDE 40 MG TAB PO SCH (08:42)
[2021-08-10] MEDS: LOSARTAN POTASSIUM 50 MG TAB PO SCH (08:42)
[2021-08-10] MEDS: ISOSORBIDE MONO EXTENDED REL 60 MG TABCR PO SCH (08:43)
[2021-08-10] MEDS: oxyCODONE HCL IR 5 MG TAB (IMMEDIATE RELEASE) PO PRN (08:43)
[2021-08-10] MEDS: INSULIN GLARGINE SOLOSTAR 100 UNITS/ML 3 ML PEN SC SCH (08:54)
[2021-08-10] MEDS: INSULIN ASPART PER UNIT SC SCH ×4 (08:55→21:08)
[2021-08-10] MEDS ORDERED: LIDOCAINE 2% JELLY 5 ML TUBE EXT PRN (13:00)
--- NOTE | 2021-08-10 14:52 | Hospitalist Progress Note ---
Date of Service August 10, 2021 Assessment & Plan (1) Fall: Plan: (1) Fall: likely secondary to oxycodone, hydroxyzine Plan: Per Dr. Kramer-admitting physician Presents after a fall since returning from [facility] rehab. It is difficult to examine patient as he is resisting exam. He is also disoriented so I'm not sure where he was or is having pain now. He is notable on scheduled hydroxyzine 25mg TID which will be stopped. Oxycodone may be continued for now but will add scheduled Tylenol to lessen the need for narcotics. He suffered a small intramuscular hematoma. As he has chronic atrial fibrillation with a h/o stroke, will plan to continue his coumadin. Will also continue his aspirin for now with h/o CAD. INR is within goal range. Will trend INR daily. PT/OT consulted. Fall also may have been precipitated by catheter-associated UTI with plan for antibiotics below. 08/10/2021 Stable today overall PT: requiring moderate to maximal assistance (2) UTI (urinary tract infection): Plan: Recent camejo placement within the last 2-4 weeks at [facility] for urinary retention. Since that time he has been placed on Flomax. Would try TOV during this hospital stay once he is more awake give the UTI present on admisison. Cont Rocephin pending culture results and clinical improvement. 08/11/2019 Urine culture: Proteus, resistant to ampicillin, fluoroquinolones, bactrim Continue ceftriaxone IV day #2 replaced Camejo cath as patient having urinary retention (3) Back pain: Plan: Cont supportive care for now. He is s/p L1 kyphoplasty on 07/22. (4) Intramuscular hematoma: Plan: Likely from his fall and being on anticoagulants. Supportive care Monitor while on Coumadin aspirin (5) Dementia: Plan: Chronic, end stage. At baseline Monitor for delirium (6) HTN (hypertension): Plan: chronic Continue losartan Monitor closely (7) CAD (coronary artery disease): Plan: chronic, stable. h/o CABG. No signs of cardiac symptoms Continue cardiac medication (8) Chronic anticoagulation: Plan: h/o chronic atrial fibrillation and stroke. INR 3.7 HOLD Coumadin Continue to monitor INR (9) DM type 2 (diabetes mellitus, type 2): Plan: chronic, uncontrolled. Cont basal/bolus insulin per hospital protocol. (10) DVT prophylaxis: Plan: hold Coumadin DNR Disposition Pending Resident of [facility] Admission and Anticipated Discharge Date Admission Date: August 08, 2021 Subjective ff up for weakness, fall, s/p L4 kyphoplasty 07/22/20, etc resting in bed, comfortable sleeping but easily awakened can states daughter's name mostly confused states he feels fine though minimal back discomfort had urinary retention this am, denies abdominal pain, nausea/vomiting, chills no other symptoms Review of Systems Review of Systems: all noted and negative except for above Physical Exam Physical Exam: General- oriented x 1, not in distress, speaks in sentences with no effort or accessory muscle use Eyes- anicteric Neck- no JVD Lungs- clear BS BL Heart- normal rate, regular rhythm; no murmurs Abdomen- normal bowel sounds, nondistended, soft, nontender Extremities- no pretibial edema, no calf tenderness Neuro- alert, oriented x 1; no gross focal neurologic deficits Skin- warm & dry Results & Data Results & Data ([facility]) Vital Signs (Past 12 Hours) Vital Signs Temp Pulse Pulse Resp BP Pulse Ox 08/10/21 07:30 36.5 C 64 18 136/64 94 08/10/21 05:58 36.4 C L 73 18 143/69 H 92 all noted and reviewed including below (1) Fall Encounter type: initial encounter Qualified Code(s): W19.XXXA - Unspecified fall, initial encounter
[2021-08-10] MEDS: cefTRIAXone SODIUM 2,000 MG in DEXTROSE 5% 50 ML IV SCH (17:59)
[2021-08-10] MEDS: PANTOprazole 40 MG TAB PO SCH (20:08)
[2021-08-10] MEDS: ATORVASTATIN 40 MG TAB PO SCH (20:08)
[2021-08-10] MEDS: TAMSULOSIN HCL 0.4 MG CAP PO SCH (20:08)
[2021-08-11] MEDS: ACETAMINOPHEN 500 MG TAB PO SCH ×3 (04:22→21:16)
[2021-08-11 07:08] LABS: INR 4.7 (0.9-1.1); Prothrombin Time 45.6 Seconds (9.0-12.0)
[2021-08-11] MEDS: amLODIPine BESYLATE 5 MG TAB PO SCH (08:56)
[2021-08-11] MEDS: ASPIRIN 81 MG ECTAB PO SCH (08:56)
[2021-08-11] MEDS: LOSARTAN POTASSIUM 50 MG TAB PO SCH (08:56)
[2021-08-11] MEDS: ISOSORBIDE MONO EXTENDED REL 60 MG TABCR PO SCH (08:57)
[2021-08-11] MEDS: METOPROLOL SUCC 25MG EXT REL TAB PO SCH ×2 (08:57→21:16)
[2021-08-11] MEDS: INSULIN GLARGINE SOLOSTAR 100 UNITS/ML 3 ML PEN SC SCH (08:57)
[2021-08-11] MEDS: FUROSEMIDE 40 MG TAB PO SCH (08:57)
[2021-08-11] MEDS: INSULIN ASPART PER UNIT SC SCH ×4 (09:04→21:06)
[2021-08-11] MEDS: cefTRIAXone SODIUM 2,000 MG in DEXTROSE 5% 50 ML IV SCH (17:45)
--- NOTE | 2021-08-11 18:41 | Hospitalist Progress Note ---
Date of Service August 11, 2021 Assessment & Plan (1) Fall: Plan: (1) Fall: likely secondary to oxycodone, hydroxyzine Plan: Per Dr. Kramer-admitting physician Presents after a fall since returning from [facility] rehab. It is difficult to examine patient as he is resisting exam. He is also disoriented so I'm not sure where he was or is having pain now. He is notable on scheduled hydroxyzine 25mg TID which will be stopped. Oxycodone may be continued for now but will add scheduled Tylenol to lessen the need for narcotics. He suffered a small intramuscular hematoma. As he has chronic atrial fibrillation with a h/o stroke, will plan to continue his coumadin. Will also continue his aspirin for now with h/o CAD. INR is within goal range. Will trend INR daily. PT/OT consulted. Fall also may have been precipitated by catheter-associated UTI with plan for antibiotics below. 08/11/2021 Remains stable overall PT: requiring moderate to maximal assistance (2) UTI (urinary tract infection): Plan: Recent camejo placement within the last 2-4 weeks at [facility] for urinary retention. Since that time he has been placed on Flomax. Would try TOV during this hospital stay once he is more awake give the UTI present on admisison. Cont Rocephin pending culture results and clinical improvement. 08/10/2021 Urine culture: Proteus, resistant to ampicillin, fluoroquinolones, bactrim Continue ceftriaxone IV day #3 replaced Camejo cath as patient having urinary retention Upon discharge, may transition to cefuroxime to complete 10-day course (3) Back pain: Plan: Cont supportive care for now. He is s/p L1 kyphoplasty on 07/22. (4) Intramuscular hematoma: Plan: Likely from his fall and being on anticoagulants. CT abdomen pelvis:Small amount of hyperdense intramuscular hemorrhage within the left paraspinal muscles at the L1 level. This could be traumatic or postprocedural. Supportive care Monitor while on Coumadin /aspirin (5) Dementia: Plan: Chronic, end stage. At baseline Monitor for delirium (6) HTN (hypertension): Plan: chronic Continue losartan Monitor closely (7) CAD (coronary artery disease): Plan: chronic, stable. h/o CABG. No signs of cardiac symptoms Continue cardiac medication (8) Chronic anticoagulation: Plan: h/o chronic atrial fibrillation and stroke. INR 4.7 Coumadin has been held since yesterday Warfarin potentiation likely secondary to ceftriaxone HOLD Coumadin Continue to monitor INR Has small intramuscular paraspinal hematoma based on CT abdomen pelvis on admission Check CBC today (9) DM type 2 (diabetes mellitus, type 2): Plan: chronic, uncontrolled. Cont basal/bolus insulin per hospital protocol. (10) DVT prophylaxis: Plan: hold Coumadin DNR Disposition Pending Resident of [facility] Admission and Anticipated Discharge Date Admission Date: August 08, 2021 Subjective Follow-up for weakness, UTI, recent L4 kyphoplasty, etc. Discussed with ERNESTINA Wilkinson, patient doing well today Ambulates to the bathroom with walker assistance, appetite is good, had good breakfast Pleasantly confused, resting in bed States he feels fine overall Has minimal back pain No shortness of breath, chest pain, cough, dizziness Abdominal pain, nausea vomiting, chills No other symptom Review of Systems Review of Systems: all noted and negative except for above Physical Exam Physical Exam: General- oriented x 1, not in distress, speaks in sentences with no effort or accessory muscle use Eyes- anicteric Neck- no JVD Lungs- clear breath sounds, no wheezing no crackles bilaterally Heart- normal rate, regular rhythm; no murmurs Abdomen- normal bowel sounds, nondistended, soft, nontender Camejo catheter in place-draining yellow clear urine next Extremities- no pretibial edema, no calf tenderness Neuro- alert, oriented x 1; no new gross focal neurologic deficits Skin- warm & dry Results & Data Results & Data ([facility]) Vital Signs (Past 12 Hours) Vital Signs Temp Pulse Resp BP Pulse Ox 08/11/21 14:12 36.6 C 74 16 107/69 96 08/11/21 07:32 36.6 C 66 16 152/80 H 92 all noted and reviewed including below (1) Fall Encounter type: initial encounter Qualified Code(s): W19.XXXA - Unspecified fall, initial encounter
[2021-08-11 19:20] LABS: Basophils # (auto) 0.03 K/uL (0-0.2); Basophils % (auto) 0.3 %; Eosinophils # (auto) 0.55 K/uL (0-0.5); Hematocrit (blood only) 32.2 % (42-52); Hemoglobin 10.2 g/dL (14.0-18.0); Immature Granulocytes # (auto) 0.02 K/uL (0.00-0.02); Immature Granulocytes % (auto) 0.2 %; Lymphocytes # (auto) 2.42 K/uL (1.2-3.4); Lymphocytes % (auto) 26.2 %; Mean Corpuscular Hemoglobin 29.3 pg (25-34); Mean Corpuscular Hgb Conc 31.7 g/dL (32-36); Mean Corpuscular Volume 92.5 fL (80-100); Mean Platelet Volume 10.2 fL (7.4-10.4); Monocytes # (auto) 1.15 K/uL (0.11-0.59); Monocytes % (auto) 12.5 %; Neutrophils # (auto) 5.05 K/uL (1.4-6.5); Neutrophils % (auto) 54.8 %; Platelet Count 314 K/uL (130-400); RDW Coefficient of Variation 15.6 % (11.5-14.5); RDW Standard Deviation 53.3 fL (36.4-46.3); Red Blood Count 3.48 M/uL (4.7-6.1); White Blood Count 9.22 K/uL (4.8-10.8)
[2021-08-11] MEDS: PANTOprazole 40 MG TAB PO SCH (21:16)
[2021-08-11] MEDS: ATORVASTATIN 40 MG TAB PO SCH (21:16)
[2021-08-11] MEDS: TAMSULOSIN HCL 0.4 MG CAP PO SCH (21:16)
[2021-08-12] MEDS: ACETAMINOPHEN 500 MG TAB PO SCH ×3 (04:09→19:54)
[2021-08-12 06:27] LABS: INR 4.1 (0.9-1.1); Prothrombin Time 40.2 Seconds (9.0-12.0)
[2021-08-12] MEDS: amLODIPine BESYLATE 5 MG TAB PO SCH (08:55)
[2021-08-12] MEDS: ASPIRIN 81 MG ECTAB PO SCH (08:55)
[2021-08-12] MEDS: ISOSORBIDE MONO EXTENDED REL 60 MG TABCR PO SCH (08:56)
[2021-08-12] MEDS: FUROSEMIDE 40 MG TAB PO SCH (08:56)
[2021-08-12] MEDS: LOSARTAN POTASSIUM 50 MG TAB PO SCH (08:57)
[2021-08-12] MEDS: METOPROLOL SUCC 25MG EXT REL TAB PO SCH ×2 (08:57→20:00)
[2021-08-12] MEDS: INSULIN GLARGINE SOLOSTAR 100 UNITS/ML 3 ML PEN SC SCH (08:58)
[2021-08-12] MEDS: INSULIN ASPART PER UNIT SC SCH ×4 (09:04→21:36)
[2021-08-12] MEDS: cefTRIAXone SODIUM 2,000 MG in DEXTROSE 5% 50 ML IV SCH (18:12)
--- NOTE | 2021-08-12 18:23 | Hospitalist Progress Note ---
Date of Service August 12, 2021 Assessment & Plan (1) Fall: Plan: (1) Fall: #. Intramuscular hematom Pt presents after fall since returning from [facility] rehab. Also suffered small intramuscular hematoma. likely secondary to oxycodone, hydroxyzine &/or CAUTI Hydroxyzine DC'd, reduce oxycodone use, scheduled tylenol. C/w coumadin to keep INR therapeutic, hold if needed; c/w aspirin. Monitor HnH daily. PT/OT, awaiting placement. (2) UTI (urinary tract infection): Recent camejo placement within the last 2-4 weeks at [facility] for urinary retention. Since that time he has been placed on Flomax. Camejo seems to have been taken out this admission. UCx positive for P. mirabilis. Cont Rocephin. Replaced Camejo cath again as patient having urinary retention Upon discharge, may transition to cefuroxime to complete course (3) Back pain: Plan: Cont supportive care for now. He is s/p L1 kyphoplasty on 07/22. (4) Intramuscular hematoma: Plan: Likely from his fall and being on anticoagulants. CT abdomen pelvis:Small amount of hyperdense intramuscular hemorrhage within the left paraspinal muscles at the L1 level. This could be traumatic or postprocedural. Supportive care Monitor while on Coumadin /aspirin Hb stable #. Other chronic medical conditions: Dementia, HTN, CAD, chronic atrial fibrillation, stroke, DM type II Continue with/resume home medications as and when appropriate Continue to hold Coumadin until INR therapeutic Continue with sliding scale insulin #. DVT prophylaxis: INR supratherapeutic, hold Coumadin. #. Disposition: Awaiting placement, can go on oral antibiotics upon discharge. (2) UTI (urinary tract infection): Admission and Anticipated Discharge Date Admission Date: August 08, 2021 Subjective Patient seen and examined at bedside as a follow-up of fall, back pain and UTI. Patient lying in bed, on room air, NAD, no new acute events overnight. Patient eating okay per RN. Patient remains alert but oriented x1. Patient reports low back pain ongoing which is similar to his baseline per him. Patient denies any headache/dizziness/chest pain/palpitations/belly pain/other review of symptoms. Physical Exam Physical Exam: GENERAL: Alert and oriented x1. NAD, on RA. HEENT: No pallor, no icterus. Pupils equal, round and reactive to light. Oral mucosa moist. NECK: No JVD, no neck masses. HEART: S1 and S2 heard. Regular rate and rhythm. No murmur, no gallop. RESPIRATORY SYSTEM: Normal AP diameter. No accessory muscle use. No wheezing, no crackles. ABDOMEN: Soft, bowel sounds present, nontender, no distention. CENTRAL NERVOUS SYSTEM: No facial droop. Speech is clear. Obeys simple commands. Moves extremities. EXTREMITIES: No edema, no erythema seen. UC with yellow urine collection noted. Results & Data Results & Data ([facility]) Vital Signs (Past 12 Hours) Vital Signs Temp Pulse Resp BP Pulse Ox 08/12/21 14:23 36.6 C 85 16 110/63 96 08/12/21 07:29 36.6 C 77 16 133/75 96 (1) Fall Encounter type: initial encounter Qualified Code(s): W19.XXXA - Unspecified fall, initial encounter (2) UTI (urinary tract infection) Hematuria presence: without hematuria Urinary tract infection type: site unspecified Qualified Code(s): N39.0 - Urinary tract infection, site not specified
[2021-08-12] MEDS: TAMSULOSIN HCL 0.4 MG CAP PO SCH (20:00)
[2021-08-12] MEDS: PANTOprazole 40 MG TAB PO SCH (20:00)
[2021-08-12] MEDS: ATORVASTATIN 40 MG TAB PO SCH (20:00)
[2021-08-13] MEDS: ACETAMINOPHEN 500 MG TAB PO SCH ×3 (05:15→20:14)
[2021-08-13 07:52] LABS: Hematocrit (blood only) 34.1 % (42-52); Hemoglobin 11.2 g/dL (14.0-18.0)
[2021-08-13 07:59] LABS: INR 3.5 (0.9-1.1); Prothrombin Time 34.8 Seconds (9.0-12.0)
[2021-08-13] MEDS: INSULIN ASPART PER UNIT SC SCH ×4 (10:22→20:32)
[2021-08-13] MEDS: INSULIN GLARGINE SOLOSTAR 100 UNITS/ML 3 ML PEN SC SCH (10:23)
[2021-08-13] MEDS: FUROSEMIDE 40 MG TAB PO SCH (10:25)
[2021-08-13] MEDS: ASPIRIN 81 MG ECTAB PO SCH (10:25)
[2021-08-13] MEDS: amLODIPine BESYLATE 5 MG TAB PO SCH (10:25)
[2021-08-13] MEDS: LOSARTAN POTASSIUM 50 MG TAB PO SCH (10:27)
[2021-08-13] MEDS: ISOSORBIDE MONO EXTENDED REL 60 MG TABCR PO SCH (10:27)
[2021-08-13] MEDS: METOPROLOL SUCC 25MG EXT REL TAB PO SCH ×2 (10:28→20:14)
--- NOTE | 2021-08-13 17:30 | Hospitalist Progress Note ---
Date of Service August 13, 2021 Assessment & Plan (1) Fall: Plan: (1) Fall: #. Intramuscular hematom Pt presents after fall since returning from [facility] rehab. Also suffered small intramuscular hematoma. likely secondary to oxycodone, hydroxyzine &/or CAUTI Hydroxyzine DC'd, reduce oxycodone use, scheduled tylenol. C/w coumadin to keep INR therapeutic, hold if needed; c/w aspirin. Monitor HnH daily. PT/OT, awaiting placement. (2) UTI (urinary tract infection): Recent camejo placement within the last 2-4 weeks at [facility] for urinary retention. Since that time he has been placed on Flomax. Camejo seems to have been taken out this admission. UCx positive for P. mirabilis. Cont Rocephin. Replaced Camejo cath again as patient having urinary retention Upon discharge, may transition to cefuroxime to complete course (3) Back pain: Plan: Cont supportive care for now. He is s/p L1 kyphoplasty on 07/22. (4) Intramuscular hematoma: Plan: Likely from his fall and being on anticoagulants. CT abdomen pelvis:Small amount of hyperdense intramuscular hemorrhage within the left paraspinal muscles at the L1 level. This could be traumatic or postprocedural. Supportive care Monitor while on Coumadin /aspirin Hb stable #. Other chronic medical conditions: Dementia, HTN, CAD, chronic atrial fibrillation, stroke, DM type II Continue with/resume home medications as and when appropriate Continue to hold Coumadin until INR therapeutic Continue with sliding scale insulin #. DVT prophylaxis: INR supratherapeutic, hold Coumadin. #. Disposition: Awaiting placement, can go on oral antibiotics upon discharge. (2) UTI (urinary tract infection): Admission and Anticipated Discharge Date Admission Date: August 08, 2021 Subjective Patient seen and examined at bedside as a follow-up of fall, back pain and UTI. Patient lying in bed, on room air, NAD, no new acute events overnight. Patient eating okay per RN. Patient remains alert but oriented x1. Patient reports low back pain ongoing which is similar to his baseline per him. Patient denies any headache/dizziness/chest pain/palpitations/belly pain/other review of symptoms. Physical Exam Physical Exam: GENERAL: Alert and oriented x1. NAD, on RA. HEENT: No pallor, no icterus. Pupils equal, round and reactive to light. Oral mucosa moist. NECK: No JVD, no neck masses. HEART: S1 and S2 heard. Regular rate and rhythm. No murmur, no gallop. RESPIRATORY SYSTEM: Normal AP diameter. No accessory muscle use. No wheezing, no crackles. ABDOMEN: Soft, bowel sounds present, nontender, no distention. CENTRAL NERVOUS SYSTEM: No facial droop. Speech is clear. Obeys simple commands. Moves extremities. EXTREMITIES: No edema, no erythema seen. UC with yellow urine collection noted. Results & Data Results & Data ([facility]) Vital Signs (Past 12 Hours) Vital Signs Temp Pulse Resp BP Pulse Ox 08/13/21 14:26 36.5 C 67 18 120/64 94 08/13/21 08:29 36.6 C 65 18 154/88 H 95 (1) Fall Encounter type: initial encounter Qualified Code(s): W19.XXXA - Unspecified fall, initial encounter (2) UTI (urinary tract infection) Hematuria presence: without hematuria Urinary tract infection type: site unspecified Qualified Code(s): N39.0 - Urinary tract infection, site not specified
[2021-08-13] MEDS: PANTOprazole 40 MG TAB PO SCH (20:14)
[2021-08-13] MEDS: TAMSULOSIN HCL 0.4 MG CAP PO SCH (20:14)
[2021-08-13] MEDS: ATORVASTATIN 40 MG TAB PO SCH (20:14)
[2021-08-14] MEDS: ACETAMINOPHEN 500 MG TAB PO SCH ×3 (04:54→17:26)
[2021-08-14 07:16] LABS: Hematocrit (blood only) 33.3 % (42-52); Hemoglobin 10.9 g/dL (14.0-18.0)
[2021-08-14 07:19] LABS: INR 2.6 (0.9-1.1); Prothrombin Time 26.4 Seconds (9.0-12.0)
[2021-08-14] MEDS: METOPROLOL SUCC 25MG EXT REL TAB PO SCH ×2 (07:44→20:24)
[2021-08-14] MEDS: FUROSEMIDE 40 MG TAB PO SCH (07:44)
[2021-08-14] MEDS: amLODIPine BESYLATE 5 MG TAB PO SCH (07:44)
[2021-08-14] MEDS: ISOSORBIDE MONO EXTENDED REL 60 MG TABCR PO SCH (07:44)
[2021-08-14] MEDS: ASPIRIN 81 MG ECTAB PO SCH (07:44)
[2021-08-14] MEDS: LOSARTAN POTASSIUM 50 MG TAB PO SCH (07:44)
[2021-08-14] MEDS: INSULIN ASPART PER UNIT SC SCH ×4 (08:33→20:22)
[2021-08-14] MEDS: INSULIN GLARGINE SOLOSTAR 100 UNITS/ML 3 ML PEN SC SCH (08:34)
--- NOTE | 2021-08-14 16:26 | Hospitalist Progress Note ---
Date of Service August 14, 2021 Assessment & Plan (1) Fall: Plan: (1) Fall: #. Intramuscular hematoma Pt presents after fall since returning from [facility] rehab. Also suffered small intramuscular hematoma. likely secondary to oxycodone, hydroxyzine &/or CAUTI Hydroxyzine DC'd, reduce oxycodone use, scheduled tylenol. C/w coumadin to keep INR therapeutic, hold if needed; c/w aspirin. Monitor HnH daily. H&H is stable. PT/OT, awaiting placement. (2) UTI (urinary tract infection): Recent camejo placement within the last 2-4 weeks at [facility] for urinary retention. Since that time he has been placed on Flomax. Camejo seems to have been taken out this admission. UCx positive for P. mirabilis. Status post Rocephin treatment. Replaced Camejo cath again as patient having urinary retention (3) Back pain: Plan: Cont supportive care for now. He is s/p L1 kyphoplasty on 07/22. Can use Lidoderm patch (4) Intramuscular hematoma: Plan: Likely from his fall and being on anticoagulants. CT abdomen pelvis:Small amount of hyperdense intramuscular hemorrhage within the left paraspinal muscles at the L1 level. This could be traumatic or postprocedural. Supportive care Monitor while on Coumadin /aspirin Hb stable #. Other chronic medical conditions: Dementia, HTN, CAD, chronic atrial fibrillation, stroke, DM type II Continue with/resume home medications as and when appropriate Resume Coumadin at reduced dose of 5 mg daily from previous of 7.5 mg daily. Continue to monitor PT/INR. Patient will need close monitoring of Coumadin clinic as an outpatient. Continue with sliding scale insulin #. DVT prophylaxis: INR supratherapeutic, hold Coumadin. #. Disposition: Awaiting placement, can go on oral antibiotics upon discharge. (2) UTI (urinary tract infection): Admission and Anticipated Discharge Date Admission Date: August 08, 2021 Subjective Patient seen and examined at bedside as a follow-up of fall, back pain and UTI. Patient lying in bed, on room air, NAD, no new acute events overnight. Patient eating okay per RN. Patient seemingly frustrated/irritated/angry upon asking general questions of assessment. Almost daily. Patient remains alert but oriented x1. Patient reports low back pain ongoing which is similar to his baseline per him. Patient denies any headache/dizziness/chest pain/palpitations/belly pain/other review of symptoms. Physical Exam Physical Exam: GENERAL: Alert and oriented x1. NAD, on RA. HEENT: No pallor, no icterus. Pupils equal, round and reactive to light. Oral mucosa moist. NECK: No JVD, no neck masses. HEART: S1 and S2 heard. Regular rate and rhythm. No murmur, no gallop. RESPIRATORY SYSTEM: Normal AP diameter. No accessory muscle use. No wheezing, no crackles. ABDOMEN: Soft, bowel sounds present, nontender, no distention. CENTRAL NERVOUS SYSTEM: No facial droop. Speech is clear. Obeys simple commands. Moves extremities. EXTREMITIES: No edema, no erythema seen. UC with yellow urine collection noted. Results & Data Results & Data ([facility]) Vital Signs (Past 12 Hours) Vital Signs Temp Pulse Resp BP Pulse Ox 08/14/21 15:33 36.2 C L 69 16 120/56 L 94 08/14/21 07:52 36.3 C L 73 16 141/76 H 92 (1) Fall Encounter type: initial encounter Qualified Code(s): W19.XXXA - Unspecified fall, initial encounter (2) UTI (urinary tract infection) Hematuria presence: without hematuria Urinary tract infection type: site unspecified Qualified Code(s): N39.0 - Urinary tract infection, site not specified
[2021-08-14] MEDS: LIDOCAINE 5% 1 PATCH TD SCH (17:26)
[2021-08-14] MEDS: ATORVASTATIN 40 MG TAB PO SCH (20:23)
[2021-08-14] MEDS: PANTOprazole 40 MG TAB PO SCH (20:24)
[2021-08-14] MEDS: TAMSULOSIN HCL 0.4 MG CAP PO SCH (20:25)
[2021-08-15] MEDS: ACETAMINOPHEN 500 MG TAB PO SCH ×3 (03:52→20:16)
[2021-08-15 07:08] LABS: Hematocrit (blood only) 35.2 % (42-52); Hemoglobin 11.2 g/dL (14.0-18.0)
[2021-08-15 07:34] LABS: INR 2.1 (0.9-1.1); Prothrombin Time 21.8 Seconds (9.0-12.0)
[2021-08-15] MEDS: INSULIN ASPART PER UNIT SC SCH ×4 (08:51→21:19)
[2021-08-15] MEDS: LOSARTAN POTASSIUM 50 MG TAB PO SCH (08:53)
[2021-08-15] MEDS: INSULIN GLARGINE SOLOSTAR 100 UNITS/ML 3 ML PEN SC SCH (08:53)
[2021-08-15] MEDS: ASPIRIN 81 MG ECTAB PO SCH (08:55)
[2021-08-15] MEDS: amLODIPine BESYLATE 5 MG TAB PO SCH (08:55)
[2021-08-15] MEDS: FUROSEMIDE 40 MG TAB PO SCH (08:55)
[2021-08-15] MEDS: ISOSORBIDE MONO EXTENDED REL 60 MG TABCR PO SCH (08:55)
[2021-08-15] MEDS: METOPROLOL SUCC 25MG EXT REL TAB PO SCH ×2 (08:56→20:17)
[2021-08-15] MEDS: LIDOCAINE 5% 1 PATCH TD SCH (08:59)
[2021-08-15] MEDS: WARFARIN SOD 5 MG TAB PO SCH (17:26)
--- NOTE | 2021-08-15 17:56 | Hospitalist Progress Note ---
Date of Service August 15, 2021 Assessment & Plan (1) Fall: Plan: (1) Fall: #. Intramuscular hematoma Pt presents after fall since returning from [facility] rehab. Also suffered small intramuscular hematoma. likely secondary to oxycodone, hydroxyzine &/or CAUTI Hydroxyzine DC'd, reduce oxycodone use, scheduled tylenol. C/w coumadin to keep INR therapeutic, hold if needed; c/w aspirin. Monitor HnH daily. H&H is stable. PT/OT, awaiting placement. (2) UTI (urinary tract infection): Recent camejo placement within the last 2-4 weeks at [facility] for urinary retention. Since that time he has been placed on Flomax. Camejo seems to have been taken out this admission. UCx positive for P. mirabilis. Status post Rocephin treatment. Replaced Camejo cath again as patient having urinary retention (3) Back pain: Plan: Cont supportive care for now. He is s/p L1 kyphoplasty on 07/22. c/w Lidoderm patch (4) Intramuscular hematoma: Plan: Likely from his fall and being on anticoagulants. CT abdomen pelvis:Small amount of hyperdense intramuscular hemorrhage within the left paraspinal muscles at the L1 level. This could be traumatic or postprocedural. Supportive care Monitor while on Coumadin /aspirin Hb stable #. Other chronic medical conditions: Dementia, HTN, CAD, chronic atrial fibrillation, stroke, DM type II Continue with/resume home medications as and when appropriate Resume Coumadin at reduced dose of 5 mg daily from previous of 7.5 mg daily. Continue to monitor PT/INR. Patient will need close monitoring of Coumadin clinic as an outpatient. Continue with sliding scale insulin #. DVT prophylaxis: Coumadin. #. Disposition: Awaiting placement, medically stable to go. (2) UTI (urinary tract infection): Admission and Anticipated Discharge Date Admission Date: August 08, 2021 Subjective Patient seen and examined at bedside as a follow-up of fall, back pain and UTI. Patient lying in bed, on room air, NAD, no new acute events overnight per pt. Patient remains alert but oriented x1. Patient reports low back pain ongoing which is similar to his baseline per him. Pt reports cough at his baseline. Patient denies any headache/dizziness/chest pain/palpitations/belly pain/other review of symptoms. Physical Exam Physical Exam: GENERAL: Alert and oriented x1. NAD, on RA. HEENT: No pallor, no icterus. Pupils equal, round and reactive to light. Oral mucosa moist. NECK: No JVD, no neck masses. HEART: S1 and S2 heard. Regular rate and rhythm. No murmur, no gallop. RESPIRATORY SYSTEM: Normal AP diameter. No accessory muscle use. No wheezing, no crackles. ABDOMEN: Soft, bowel sounds present, nontender, no distention. CENTRAL NERVOUS SYSTEM: No facial droop. Speech is clear. Obeys simple commands. Moves extremities. EXTREMITIES: No edema, no erythema seen. UC with yellow urine collection noted. Results & Data Results & Data ([facility]) Vital Signs (Past 12 Hours) Vital Signs Temp Pulse Resp BP Pulse Ox 08/15/21 16:23 36.6 C 61 14 116/49 L 96 08/15/21 07:35 36.6 C 66 14 117/66 93 (1) Fall Encounter type: initial encounter Qualified Code(s): W19.XXXA - Unspecified fall, initial encounter (2) UTI (urinary tract infection) Hematuria presence: without hematuria Urinary tract infection type: site unspecified Qualified Code(s): N39.0 - Urinary tract infection, site not specified
[2021-08-15] MEDS: ATORVASTATIN 40 MG TAB PO SCH (20:16)
[2021-08-15] MEDS: PANTOprazole 40 MG TAB PO SCH (20:17)
[2021-08-15] MEDS: TAMSULOSIN HCL 0.4 MG CAP PO SCH (20:18)
[2021-08-16] MEDS: ACETAMINOPHEN 500 MG TAB PO SCH ×3 (04:19→21:03)
[2021-08-16 07:26] LABS: Hematocrit (blood only) 34.6 % (42-52); Hemoglobin 10.9 g/dL (14.0-18.0)
[2021-08-16 07:37] LABS: Prothrombin Time 20.3 Seconds (9.0-12.0)
[2021-08-16] MEDS: LIDOCAINE 5% 1 PATCH TD SCH (08:35)
[2021-08-16] MEDS: INSULIN ASPART PER UNIT SC SCH ×4 (08:35→21:04)
[2021-08-16] MEDS: ASPIRIN 81 MG ECTAB PO SCH (08:35)
[2021-08-16] MEDS: LOSARTAN POTASSIUM 50 MG TAB PO SCH (08:36)
[2021-08-16] MEDS: ISOSORBIDE MONO EXTENDED REL 60 MG TABCR PO SCH (08:36)
[2021-08-16] MEDS: INSULIN GLARGINE SOLOSTAR 100 UNITS/ML 3 ML PEN SC SCH (08:37)
[2021-08-16] MEDS: amLODIPine BESYLATE 5 MG TAB PO SCH (08:37)
[2021-08-16] MEDS: FUROSEMIDE 40 MG TAB PO SCH (08:37)
[2021-08-16] MEDS: METOPROLOL SUCC 25MG EXT REL TAB PO SCH ×2 (08:37→21:03)
--- NOTE | 2021-08-16 14:06 | Hospitalist Progress Note ---
Date of Service August 16, 2021 Assessment & Plan (1) Fall: Plan: (1) Fall: #. Intramuscular hematoma Pt presents after fall since returning from [facility] rehab. Also suffered small intramuscular hematoma. likely secondary to oxycodone, hydroxyzine &/or CAUTI Hydroxyzine DC'd, reduce oxycodone use, scheduled tylenol. C/w coumadin to keep INR therapeutic, hold if needed; c/w aspirin. Monitor HnH daily. H&H is stable. PT/OT, awaiting placement. (2) UTI (urinary tract infection): Recent camejo placement within the last 2-4 weeks at [facility] for urinary retention. Since that time he has been placed on Flomax. Camejo seems to have been taken out this admission. UCx positive for P. mirabilis. Status post Rocephin treatment. Replaced Camejo cath again as patient was having urinary retention (3) Back pain: Plan: Cont supportive care for now. He is s/p L1 kyphoplasty on 07/22. c/w Lidoderm patch Reports some improvement in belly pain. (4) Intramuscular hematoma: Plan: Likely from his fall and being on anticoagulants. CT abdomen pelvis:Small amount of hyperdense intramuscular hemorrhage within the left paraspinal muscles at the L1 level. This could be traumatic or postprocedural. Supportive care Monitor while on Coumadin /aspirin Hb stable #. Other chronic medical conditions: Dementia, HTN, CAD, chronic atrial fibrillation, stroke, DM type II Continue with/resume home medications as and when appropriate Resume Coumadin at reduced dose of 5 mg daily from previous of 7.5 mg daily. Continue to monitor PT/INR. Patient will need close monitoring of Coumadin clinic as an outpatient. Continue with sliding scale insulin #. DVT prophylaxis: Coumadin. #. Disposition: Awaiting placement, medically stable to go. (2) UTI (urinary tract infection): Admission and Anticipated Discharge Date Admission Date: August 08, 2021 Subjective Patient seen and examined at bedside as a follow-up of fall, back pain and UTI. Patient lying in bed, on room air, NAD, no new acute events overnight per pt. patient was seemingly very angry at me upon entering his room for daily exam, patient remains alert but but further ROS were limited due to his mood. Patient reports some improvement in his low back pain. Physical Exam Physical Exam: GENERAL: Alert and oriented x could not be assessed. NAD, on RA. Upset/angry as always during exam HEENT: Atraumatic, rest n/a NECK: n/a HEART: n/a RESPIRATORY SYSTEM: not in resp distress, rest n/a ABDOMEN: n/a CENTRAL NERVOUS SYSTEM: No facial droop. Speech is clear. angry/upset. EXTREMITIES: no erythema seen. UC with yellow urine collection noted. Results & Data Results & Data ([facility]) Vital Signs (Past 12 Hours) Vital Signs Temp Pulse Resp BP Pulse Ox 08/16/21 07:23 36.3 C L 63 14 136/67 96 (1) Fall Encounter type: initial encounter Qualified Code(s): W19.XXXA - Unspecified fall, initial encounter (2) UTI (urinary tract infection) Hematuria presence: without hematuria Urinary tract infection type: site unspecified Qualified Code(s): N39.0 - Urinary tract infection, site not specified
[2021-08-16] MEDS: WARFARIN SOD 5 MG TAB PO SCH (16:13)
[2021-08-16] MEDS: ATORVASTATIN 40 MG TAB PO SCH (21:03)
[2021-08-16] MEDS: TAMSULOSIN HCL 0.4 MG CAP PO SCH (21:03)
[2021-08-16] MEDS: PANTOprazole 40 MG TAB PO SCH (21:03)
[2021-08-17] MEDS: ACETAMINOPHEN 500 MG TAB PO SCH ×3 (03:46→21:22)
[2021-08-17 06:40] LABS: Hematocrit (blood only) 33.7 % (42-52); Hemoglobin 10.8 g/dL (14.0-18.0)
[2021-08-17 07:24] LABS: INR 2.5 (0.9-1.1); Prothrombin Time 25.3 Seconds (9.0-12.0)
[2021-08-17] MEDS: LOSARTAN POTASSIUM 50 MG TAB PO SCH (08:54)
[2021-08-17] MEDS: amLODIPine BESYLATE 5 MG TAB PO SCH (08:54)
[2021-08-17] MEDS: FUROSEMIDE 40 MG TAB PO SCH (08:54)
[2021-08-17] MEDS: ISOSORBIDE MONO EXTENDED REL 60 MG TABCR PO SCH (08:54)
[2021-08-17] MEDS: METOPROLOL SUCC 25MG EXT REL TAB PO SCH ×2 (08:54→21:22)
[2021-08-17] MEDS: ASPIRIN 81 MG ECTAB PO SCH (08:54)
[2021-08-17] MEDS: LIDOCAINE 5% 1 PATCH TD SCH (08:57)
[2021-08-17] MEDS: INSULIN ASPART PER UNIT SC SCH ×4 (09:32→21:27)
[2021-08-17] MEDS: INSULIN GLARGINE SOLOSTAR 100 UNITS/ML 3 ML PEN SC SCH (09:34)
--- NOTE | 2021-08-17 12:34 | Hospitalist Progress Note ---
Date of Service August 17, 2021 Assessment & Plan (1) Fall: Plan: (1) Fall: #. Intramuscular hematoma Pt presents after fall since returning from [facility] rehab. Also suffered small intramuscular hematoma. likely secondary to oxycodone, hydroxyzine &/or CAUTI Hydroxyzine DC'd, reduce oxycodone use, scheduled tylenol. C/w coumadin to keep INR therapeutic, hold if needed; c/w aspirin. Monitor HnH daily. H&H is stable. PT/OT, awaiting placement. (2) UTI (urinary tract infection): Recent camejo placement within the last 2-4 weeks at [facility] for urinary retention. Since that time he has been placed on Flomax. Camejo seems to have been taken out this admission. UCx positive for P. mirabilis. Status post Rocephin treatment. Replaced Camejo cath again as patient was having urinary retention (3) Back pain: Plan: Cont supportive care for now. He is s/p L1 kyphoplasty on 07/22. c/w Lidoderm patch Reports some improvement in belly pain. (4) Intramuscular hematoma: Plan: Likely from his fall and being on anticoagulants. CT abdomen pelvis:Small amount of hyperdense intramuscular hemorrhage within the left paraspinal muscles at the L1 level. This could be traumatic or postprocedural. Supportive care Monitor while on Coumadin /aspirin Hb stable #. Other chronic medical conditions: Dementia, HTN, CAD, chronic atrial fibrillation, stroke, DM type II Continue with/resume home medications as and when appropriate Resume Coumadin at reduced dose of 5 mg daily from previous of 7.5 mg daily. Continue to monitor PT/INR. Patient will need close monitoring of Coumadin clinic as an outpatient. Continue with sliding scale insulin #. DVT prophylaxis: Coumadin. #. Disposition: Awaiting placement, medically stable to go. (2) UTI (urinary tract infection): Admission and Anticipated Discharge Date Admission Date: August 08, 2021 Subjective Patient seen and examined at bedside as a follow-up of fall, back pain and UTI. Patient lying in bed, on room air, NAD, no new acute events overnight per pt. Pt upset at bedside exam, demanding casework specialist talk to him right away , per Pt "I want case technician right now", CM made aware. Pt AOx2, doing better per RN. Eating OK and taking med. Physical Exam Physical Exam: GENERAL: Alert and oriented x2. NAD, on RA. Upset. HEENT: No pallor, no icterus. Pupils equal, round and reactive to light. Oral mucosa moist. NECK: No JVD, no neck masses. HEART: S1 and S2 heard. Regular rate and rhythm. No murmur, no gallop. RESPIRATORY SYSTEM: Normal AP diameter. No accessory muscle use. No wheezing, no crackles. ABDOMEN: Soft, bowel sounds present, nontender, no distention. CENTRAL NERVOUS SYSTEM: No facial droop. Speech is clear. Obeys simple commands. Moves extremities. EXTREMITIES: No edema, no erythema seen. UC with yellow urine collection noted. Results & Data Results & Data ([facility]) Vital Signs (Past 12 Hours) Vital Signs Temp Pulse Resp BP Pulse Ox 08/17/21 07:56 36.4 C L 72 14 135/66 95 (1) Fall Encounter type: initial encounter Qualified Code(s): W19.XXXA - Unspecified fall, initial encounter (2) UTI (urinary tract infection) Hematuria presence: without hematuria Urinary tract infection type: site unspecified Qualified Code(s): N39.0 - Urinary tract infection, site not specified
[2021-08-17] MEDS: WARFARIN SOD 5 MG TAB PO SCH (15:24)
[2021-08-17 20:25] LABS: Hematocrit (blood only) 33.3 % (42-52); Hemoglobin 10.5 g/dL (14.0-18.0)
[2021-08-17] MEDS: PANTOprazole 40 MG TAB PO SCH (21:23)
[2021-08-17] MEDS: TAMSULOSIN HCL 0.4 MG CAP PO SCH (21:23)
[2021-08-17] MEDS: ATORVASTATIN 40 MG TAB PO SCH (21:23)
[2021-08-18 00:29] LABS: Appearance Urine Clear (Clear); Bacteria Urine Automated Negative (Negative); Bilirubin Urine Negative (Negative); Blood Urine 3+ (Negative); Color Urine Yellow; Epithelial Cell Urine Auto >30 /lpf (0-5); Glucose Urine UA Negative (Negative); Ketones Urine Trace (Negative); Leukocyte Esterase Urine Trace (Negative); Nitrite Urine Negative (Negative); Protein Urine 1+ (Negative); RBC Urine Automated >30 /hpf (0-4); Specific Gravity Urine 1.027 (1.000-1.030); Urobilinogen Urine Negative (Negative)
[2021-08-18] MEDS: ACETAMINOPHEN 500 MG TAB PO SCH ×3 (05:16→22:50)
[2021-08-18 06:54] LABS: Hematocrit (blood only) 32.7 % (42-52); Hemoglobin 10.6 g/dL (14.0-18.0)
[2021-08-18 07:01] LABS: INR 3.2 (0.9-1.1); Prothrombin Time 31.7 Seconds (9.0-12.0)
[2021-08-18] MEDS: amLODIPine BESYLATE 5 MG TAB PO SCH (08:42)
[2021-08-18] MEDS: ASPIRIN 81 MG ECTAB PO SCH (08:42)
[2021-08-18] MEDS: LOSARTAN POTASSIUM 50 MG TAB PO SCH (08:43)
[2021-08-18] MEDS: LIDOCAINE 5% 1 PATCH TD SCH (08:43)
[2021-08-18] MEDS: FUROSEMIDE 40 MG TAB PO SCH (08:43)
[2021-08-18] MEDS: METOPROLOL SUCC 25MG EXT REL TAB PO SCH ×2 (08:43→20:46)
[2021-08-18] MEDS: ISOSORBIDE MONO EXTENDED REL 60 MG TABCR PO SCH (08:43)
[2021-08-18] MEDS: INSULIN GLARGINE SOLOSTAR 100 UNITS/ML 3 ML PEN SC SCH (08:44)
[2021-08-18] MEDS: INSULIN ASPART PER UNIT SC SCH ×4 (08:45→20:40)
[2021-08-18 16:29] LABS: Hematocrit (blood only) 35.6 % (42-52); Hemoglobin 11.4 g/dL (14.0-18.0)
--- NOTE | 2021-08-18 17:27 | Hospitalist Progress Note ---
Date of Service August 18, 2021 Assessment & Plan (1) Fall: Plan: (1) Fall: #. Intramuscular hematoma Pt presents after fall since returning from [facility] rehab. Also suffered small intramuscular hematoma. likely secondary to oxycodone, hydroxyzine &/or CAUTI Hydroxyzine DC'd, reduce oxycodone use, scheduled tylenol. C/w coumadin to keep INR therapeutic, hold if needed; c/w aspirin. Monitor HnH daily. H&H is stable. PT/OT, awaiting placement. (2) UTI (urinary tract infection): #. Concern of Hematuria Recent camejo placement within the last 2-4 weeks at [facility] for urinary retention. Since that time he has been placed on Flomax. Camejo seems to have been taken out this admission. UCx positive for P. mirabilis. Status post Rocephin treatment. Replaced Camejo cath again as patient was having urinary retention Concern of pink urine on 08/17 evening, hemoglobin has been stable, urine analysis with reflex culture sent, reviewed. Urine collection free of visible hematuria on bedside exam. Monitor hemoglobin closely, warfarin has been held for now. Patient will need repeat urinalysis in a month time upon discharge. (3) Back pain: Plan: Cont supportive care for now. He is s/p L1 kyphoplasty on 07/22. c/w Lidoderm patch Reports some improvement in low back pain. (4) Intramuscular hematoma: Plan: Likely from his fall and being on anticoagulants. CT abdomen pelvis:Small amount of hyperdense intramuscular hemorrhage within the left paraspinal muscles at the L1 level. This could be traumatic or postprocedural. Supportive care Monitor while on Coumadin /aspirin Hb stable #. Other chronic medical conditions: Dementia, HTN, CAD, chronic atrial fibrillation, stroke, DM type II Continue with/resume home medications as and when appropriate We might need to cut down on Coumadin dose. Continue to monitor PT/INR. Patient will need close monitoring of Coumadin clinic as an outpatient. Continue with sliding scale insulin #. DVT prophylaxis: Coumadin held, PT/INR supratherapeutic. #. Disposition: Awaiting placement, medically stable to go. (2) UTI (urinary tract infection): Admission and Anticipated Discharge Date Admission Date: August 08, 2021 Subjective Patient seen and examined at bedside as a follow-up of fall, back pain and UTI. Patient lying in bed, on room air, NAD, no new acute events overnight per pt. Patient fairly calm today, stated that no disease case manager came to visit him yesterday, I had seen disease case manager visited him yesterday though. Pt AOx1, doing better per RN. Eating OK and taking med. Patient denies fever/chills/chest pain/belly pain/other review of symptoms. Physical Exam Physical Exam: GENERAL: Alert and oriented x1. NAD, on RA. HEENT: No pallor, no icterus. Pupils equal, round and reactive to light. Oral mucosa moist. NECK: No JVD, no neck masses. HEART: S1 and S2 heard. Regular rate and rhythm. No murmur, no gallop. RESPIRATORY SYSTEM: Normal AP diameter. No accessory muscle use. No wheezing, no crackles. ABDOMEN: Soft, bowel sounds present, nontender, no distention. CENTRAL NERVOUS SYSTEM: No facial droop. Speech is clear. Obeys simple commands. Moves extremities. EXTREMITIES: No edema, no erythema seen. UC with yellow urine collection noted. No hematuria noted. Results & Data Results & Data ([facility]) Vital Signs (Past 12 Hours) Vital Signs Temp Pulse Resp BP Pulse Ox 08/18/21 15:50 36.7 C 75 16 117/65 95 08/18/21 07:28 36.4 C L 63 16 146/83 H 96 (1) Fall Encounter type: initial encounter Qualified Code(s): W19.XXXA - Unspecified fall, initial encounter (2) UTI (urinary tract infection) Hematuria presence: without hematuria Urinary tract infection type: site unspecified Qualified Code(s): N39.0 - Urinary tract infection, site not specified
[2021-08-18] MEDS: ATORVASTATIN 40 MG TAB PO SCH (20:45)
[2021-08-18] MEDS: TAMSULOSIN HCL 0.4 MG CAP PO SCH (20:46)
[2021-08-18] MEDS: PANTOprazole 40 MG TAB PO SCH (20:46)
[2021-08-19] MEDS: ACETAMINOPHEN 500 MG TAB PO SCH ×3 (04:09→21:22)
[2021-08-19 06:49] LABS: Hematocrit (blood only) 33.5 % (42-52); Hemoglobin 10.8 g/dL (14.0-18.0)
[2021-08-19 07:00] LABS: INR 3.1 (0.9-1.1); Prothrombin Time 30.9 Seconds (9.0-12.0)
[2021-08-19] MEDS: ASPIRIN 81 MG ECTAB PO SCH (08:23)
[2021-08-19] MEDS: LOSARTAN POTASSIUM 50 MG TAB PO SCH (08:23)
[2021-08-19] MEDS: amLODIPine BESYLATE 5 MG TAB PO SCH (08:23)
[2021-08-19] MEDS: INSULIN GLARGINE SOLOSTAR 100 UNITS/ML 3 ML PEN SC SCH (08:23)
[2021-08-19] MEDS: METOPROLOL SUCC 25MG EXT REL TAB PO SCH ×2 (08:23→21:29)
[2021-08-19] MEDS: FUROSEMIDE 40 MG TAB PO SCH (08:23)
[2021-08-19] MEDS: ISOSORBIDE MONO EXTENDED REL 60 MG TABCR PO SCH (08:23)
[2021-08-19] MEDS: LIDOCAINE 5% 1 PATCH TD SCH (08:25)
[2021-08-19] MEDS: INSULIN ASPART PER UNIT SC SCH ×4 (08:25→22:48)
--- NOTE | 2021-08-19 14:03 | Palliative Care Consultation ---
Date of Consultation August 19, 2021 Assessment & Plan (1) Back pain: Appears to be adequately controlled with routine tylenol. No prn oxycodone since 08/10. Back pain laterality: midline Back pain location: low back pain Chronicity: unspecified Sciatica presence: without sciatica Qualified Code(s): M54.50 - Low back pain, unspecified (2) Fall: Progressive dementia and some functional decline but remains ambulatory with assistance. Family is considering SNF placement for higher level of care. Encounter type: initial encounter Qualified Code(s): W19.XXXA - Unspecified fall, initial encounter (3) Palliative care encounter: I spoke with Rekha who has been concerned about his decline and falls. Family had been considering hospice care but unfortunately, I don't think he would be eligible for hospice at this time. Rekha is wondering whether continuing coumadin and some of his other medications are in his best interest right now. We discussed atorvastatin likely not improving his quality of life at this time. 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 I encouraged her to discuss this with Truman's receivable clerk. She tells me that Truman never really discussed what he would want for his care if he became very ill. She is concerned that his quality of life is poor by his standards. History of Present Illness Reason for Consultation: goals of care Requesting Physician: Dr. Mims Attending Physician: Bird Braun MD History of Present Illness Pleasant 86 yo gentleman with history of CAD, afib, diabetes and dementia. He has been residing at [facility] but [facility]. He complains of low back pain which does not bother him at rest by is more uncomfortable with ambulation. Per RN, he is able to ambulate in the [place] with his walker and assistance. He had a hospitalization earlier this month after a fall and was found to have an L1 burst fracture which was treated with kyphoplasty. He has also been noted to have some paraspinal intramuscular hemorrage on imaging in the area of L1. Truman is pleasant but confused at times. He tells me that he lives alone in [place] but would like to go to [facility]. He has designated his daughter, Rekha Lazo, who is an RN, as his medical POA. Allergies Allergy/AdvReac Type Severity Reaction Status Date / Time shellfish derived Allergy Severe anaphylaxis Verified 08/08/21 19:25 Penicillins Allergy Intermediate HIVES Verified 08/08/21 18:38 clopidogrel Allergy Mild INTERNAL Verified 08/08/21 18:38 HIVES Home Medications Medication Instructions Recorded Confirmed Type amlodipine 5 mg tablet 5 mg PO DAILY 09/04/18 08/08/21 History aspirin 81 mg tablet,delayed 81 mg PO QAM 09/04/18 08/08/21 History release atorvastatin 40 mg tablet 40 mg PO PM 09/04/18 08/08/21 History cholecalciferol (vitamin D3) 25 1,000 unit PO QAM 09/04/18 08/08/21 History mcg (1,000 unit) capsule (Vitamin D3) insulin glargine 100 unit/mL (3 12 units SUBCUT QAM 09/04/18 08/08/21 History mL) subcutaneous pen (Lantus Solostar U-100 Insulin) isosorbide mononitrate 60 mg 60 mg PO QAM 09/04/18 08/08/21 History tablet,extended release 24 hr losartan 50 mg tablet 50 mg PO QAM 09/04/18 08/08/21 History metoprolol succinate 50 mg 75 mg PO BID 09/04/18 08/08/21 History tablet,extended release 24 hr nitroglycerin 0.4 mg sublingual 0.4 mg SUBLINGUAL UD PRN 09/04/18 08/08/21 History tablet (Nitrostat) pantoprazole 40 mg tablet,delayed 40 mg PO PM 09/04/18 08/08/21 History release polyethylene glycol 3350 17 gram 17 g PO BID PRN 09/04/18 08/08/21 History oral powder packet clindamycin HCl 300 mg capsule 600 mg PO ONCE PRN 09/25/20 08/08/21 History acetaminophen 325 mg tablet 650 mg PO Q6H PRN MDD 3G 06/24/21 08/08/21 History (Tylenol) albuterol sulfate 90 mcg/actuation 2 puff INHALATION Q6H PRN 06/24/21 08/08/21 History aerosol inhaler furosemide 40 mg tablet 40 mg PO DAILY 06/24/21 08/08/21 History loperamide 2 mg capsule 2 mg PO UD PRN MDD 4 CAPS 06/24/21 08/08/21 History sennosides 8.6 mg tablet (Senokot) 8.6 - 17.2 mg PO HS PRN 06/24/21 08/08/21 History calcium carbonate 300 mg (750 mg) 1,500 mg PO TID PRN 06/26/21 08/08/21 History chewable tablet (Antacid Extra Strength (calcium carb)) insulin aspart U-100 100 unit/mL 4 unit SC 1130,1630,2100 07/16/21 08/08/21 History subcutaneous solution (Novolog U-100 Insulin aspart) warfarin 7.5 mg tablet (Jantoven) 7.5 mg PO DAILY@1600 #14 tab 07/27/21 08/08/21 Rx hydroxyzine HCl 25 mg tablet 25 mg PO TID 08/08/21 08/08/21 History magnesium oxide 400 mg PO DAILY 08/08/21 08/08/21 History oxycodone 5 mg tablet 5 mg PO Q6H PRN 08/08/21 08/08/21 History tamsulosin 0.4 mg capsule 0.4 mg PO HS 08/08/21 08/08/21 History Patient History Medical History (Updated 08/19/21 @ 13:59 by Sofia Romero MD) ACS (acute coronary syndrome) CAD (coronary artery disease) Chronic anticoagulation DM type 2 (diabetes mellitus, type 2) Dyslipidemia Dyspnea on exertion Gout History of cerebral hemorrhage HTN (hypertension) Pacemaker Pancreatic cancer Paroxysmal atrial fibrillation Sinus node dysfunction SSS (sick sinus syndrome) Surgical History H/O arthroscopic knee surgery H/O colonoscopy H/O esophagogastroduodenoscopy H/O inguinal hernia repair History of pancreatectomy "07/15/[address] [facility] [place] S/P CABG x 1 S/P coronary artery stent placement "03/29/03 cardiac cath: RCA - stent of 90% lesion, L circ obtuse kenneth - stent of 80% lesion " S/P splenectomy S/P tonsillectomy and adenoidectomy Family History Other Family history non-contributory Social History Smoking Status: Former smoker Tobacco Type: Cigarettes Hx Alcohol Use: No Hx Substance Use: No Preferred Language: Pashto Communication Ability: Impaired Manager Long Term Care Required: No Beliefs That Will Affect Care: None marital status: / Current Living Situation: Personal Care Facility Current Living Situation Comment: Assisted living current occupational status: retired How many Children do You have: 2 Other Information That Helps Us Care for You: No Feels Safe at Home: Yes Safety Concerns: Feels Safe At This Time Assistive Devices: Walker Review of Systems Review of Systems: [place] Symptom Assessment Scale Pain 1/3 Dyspnea 0/3 Anxiety 0/3 Fatigue 1/3 Drowsiness 0/3 Palliative Performance Score 50% Physical Exam Constitutional: no acute distress ENMT: Mouth: oral mucous membranes not dry Respiratory: normal respiratory effort; no labored breathing Cardiovascular: regular no edema Musculoskeletal: Extremities: + muscle atrophy Skin: warm and dry Results & Data ([facility]) Vital Signs (Past 12 Hours) Vital Signs Temp Pulse Resp BP Pulse Ox 08/19/21 07:25 98.4 F 68 16 130/70 97 PG Care Time/CCT Total # of Minutes Spent Total Time Spent: 60 Total Time Spent with Patient: Total time spent is greater than 50% in coordination of care (as documented) at patient's floor/unit and/or counseling patient:goals of care, symptom management, family education and support Coding Level of Care Code 27505 Initial Inpt Care Lvl 2 Diagnoses Back pain M54.50 Back pain laterality: midline Back pain location: low back pain Chronicity: unspecified Sciatica presence: without sciatica Fall W19.XXXA Encounter type: initial encounter Palliative care encounter Z51.5
--- NOTE | 2021-08-19 15:48 | Hospitalist Progress Note ---
Date of Service August 19, 2021 Assessment & Plan (1) Fall: Plan: (1) Fall: #. Intramuscular hematoma Pt presents after fall since returning from [facility] rehab. Also suffered small intramuscular hematoma. likely secondary to oxycodone, hydroxyzine &/or CAUTI Hydroxyzine DC'd, reduce oxycodone use, scheduled tylenol. INR still at 3.1, will hold coumadin for today. Recheck INR in am for dose tomorrow. H&H is stable. PT/OT, awaiting placement. (2) UTI (urinary tract infection): #. Concern of Hematuria Recent camejo placement within the last 2-4 weeks at [facility] for urinary retention. Since that time he has been placed on Flomax. Camejo seems to have been taken out this admission. UCx positive for P. mirabilis. Status post Rocephin treatment. Replaced Camejo cath again as patient was having urinary retention Concern of pink urine on 08/17 evening, hemoglobin has been stable, UA reviewed- some hematuria possibly traumatic, camejo bag with no hematuria. Monitor hemoglobin closely, warfarin has been held for now. Repeat UA in 2-3 weeks and if persistent, follow up with urology. (3) Back pain: Plan: Cont supportive care for now. He is s/p L1 kyphoplasty on 07/22. c/w Lidoderm patch Reports some improvement in low back pain. (4) Intramuscular hematoma: Plan: Likely from his fall and being on anticoagulants. CT abdomen pelvis:Small amount of hyperdense intramuscular hemorrhage within the left paraspinal muscles at the L1 level. This could be traumatic or pos tprocedural. Supportive care Monitor while on Coumadin /aspirin Hb stable #. Other chronic medical conditions: Dementia, HTN, CAD, chronic atrial fibrillation, stroke, DM type II Continue with/resume home medications as and when appropriate We might need to cut down on Coumadin dose. Continue to monitor PT/INR. Patient will need close monitoring of Coumadin clinic as an outpatient. Continue with sliding scale insulin DVT prophylaxis: Coumadin Disposition: Awaiting placement, medically stable to go. CM following. Updated daughter over the phone. She would like to continue coumadin and other medications. (2) UTI (urinary tract infection): Admission and Anticipated Discharge Date Admission Date: August 08, 2021 Subjective Seen and examined at bedside. He feels okay. Asking where and when he is being discharged. States he has been ambulating with walker with support. He wanted to speak to in person. Has mild chronic back pain, nothing new. No new issues. Physical Exam Physical Exam: General: Lying comfortably in bed, not in distress, on room air HEENT: EOMI, MICHELLE, MMM Chest: Clear breath sounds bilaterally, no wheezes or crackles CVS: Regular rate and rhythm, normal heart sounds, no murmur Abdomen: Soft, non tender, not distended, normal bowel sounds Neuro: Awake, alert, oriented, conversing well, non focal Extremities: No cyanosis, clubbing or edema Results & Data Results & Data ([facility]) Vital Signs (Past 12 Hours) Vital Signs Temp Pulse Resp BP Pulse Ox 08/19/21 07:25 36.9 C 68 16 130/70 97 Laboratory Results Short CBC 08/18/21 08/19/21 Range/Units 15:54 06:17 Hgb 11.4 L 10.8 L (14.0-18.0) g/dL Hct 35.6 L 33.5 L (42-52) % Medications Administered Current Inpatient Medications Acetaminophen (Acetaminophen 500 Mg Tab) 1,000 mg PO Q8H CLARISSA Stop: 09/07/21 19:45 Last Admin: 08/19/21 12:42 Dose: 1,000 mg Documented by: Amlodipine Besylate (Amlodipine Besylate 5 Mg Tab) 5 mg PO DAILY CLARISSA Stop: 09/08/21 08:59 Last Admin: 08/19/21 08:23 Dose: 5 mg Documented by: Aspirin (Aspirin 81 Mg Ectab) 81 mg PO QAM CLARISSA Stop: 09/08/21 08:59 Last Admin: 08/19/21 08:23 Dose: 81 mg Documented by: Atorvastatin Calcium (Atorvastatin 40 Mg Tab) 40 mg PO PM CLARISSA Stop: 09/07/21 20:59 Last Admin: 08/18/21 20:45 Dose: 40 mg Documented by: Dextrose (Dextrose 50% 50 Ml Syringe) 25 - 50 ml IV UD PRN; Protocol PRN Reason: Hypoglycemia Protocol Stop: 09/07/21 20:05 Furosemide (Furosemide 40 Mg Tab) 40 mg PO DAILY CLARISSA Stop: 09/08/21 08:59 Last Admin: 08/19/21 08:23 Dose: 40 mg Documented by: Glucagon (Glucagon For Inj 1 Mg Vial) 1 mg SQ UD PRN; Protocol PRN Reason: Hypoglycemia Protocol Stop: 09/07/21 20:05 Glucose (Glucose 10 Tabs/Tube) 4 - 8 tabs PO UD PRN; Protocol PRN Reason: Hypoglycemia Protocol Stop: 09/07/21 20:05 Glucose (Glucose 40% Gel 15 Gm Tube) 15 - 30 gm PO UD PRN; Protocol PRN Reason: Hypoglycemia Protocol Stop: 09/07/21 20:05 Insulin Aspart (Insulin Aspart Per Unit) 0 units SC [facility] Stop: 09/07/21 20:59 Last Admin: 08/19/21 12:40 Dose: 5 units Documented by: Insulin Glargine (Insulin Glargine Solostar 100 Units/Ml 3 Ml Pen) 12 units SC [facility] Stop: 09/08/21 08:59 Last Admin: 08/19/21 08:23 Dose: 12 units Documented by: Isosorbide Mononitrate (Isosorbide [place] Extended Rel 60 Mg Tabcr) 60 mg PO [facility] Stop: 09/08/21 08:59 Last Admin: 08/19/21 08:23 Dose: 60 mg Documented by: Lidocaine (Lidocaine 5% 1 Patch) 1 patch TD [facility] Stop: 09/13/21 16:29 Last Admin: 08/19/21 08:25 Dose: Not Given Documented by: Lidocaine HCl (Lidocaine 2% Jelly 5 Ml Tube) 5 ml EXT UD PRN PRN Reason: URINARY CATHETER Stop: 09/09/21 12:59 Last Admin: 08/10/21 13:29 Dose: 5 ml Documented by: Losartan Potassium (Losartan Potassium 50 Mg Tab) 50 mg PO [facility] Stop: 09/08/21 08:59 Last Admin: 08/19/21 08:23 Dose: 50 mg Documented by: Metoprolol Succinate (Metoprolol Succ 25mg Ext Rel Tab) 75 mg PO BID [facility] Stop: 09/07/21 20:59 Last Admin: 08/19/21 08:23 Dose: 75 mg Documented by: Miscellaneous (Carbohydrates For Hypoglycemia ) 15 - 30 gm PO UD PRN PRN Reason: Hypoglycemia Protocol Stop: 09/07/21 20:05 Miscellaneous (Remove Lidoderm Patch) 1 ea N/A DAILY@2100 [facility] Stop: 09/13/21 20:59 Last Admin: 08/18/21 20:47 Dose: 1 ea Documented by: Oxycodone HCl (Oxycodone Hcl Ir 5 Mg Tab (Immediate Release)) 5 mg PO Q6H PRN PRN Reason: Pain Stop: 08/22/21 20:05 Last Admin: 08/10/21 08:43 Dose: 5 mg Documented by: Pantoprazole Sodium (Pantoprazole 40 Mg Tab) 40 mg PO PM CLARISSA Stop: 09/07/21 20:59 Last Admin: 08/18/21 20:46 Dose: 40 mg Documented by: Tamsulosin HCl (Tamsulosin Hcl 0.4 Mg Cap) 0.4 mg PO HS CL[facility]ISSA Stop: 09/07/21 20:59 Last Admin: 08/18/21 20:46 Dose: 0.4 mg Documented by: Warfarin Sodium (Warfarin Sod 5 Mg Tab) 5 mg PO DAILY@1600 [facility]IS[facility] Stop: 09/13/21 16:29 Last Admin: 08/17/21 15:24 Dose: 5 mg Documented by: (1) Fall Encounter type: initial encounter Qualified Code(s): W19.XXXA - Unspecified fall, initial encounter (2) UTI (urinary tract infection) Hematuria presence: without hematuria Urinary tract infection type: site unspecified Qualified Code(s): N39.0 - Urinary tract infection, site not specified
[2021-08-19] MEDS: TAMSULOSIN HCL 0.4 MG CAP PO SCH (21:22)
[2021-08-19] MEDS: ATORVASTATIN 40 MG TAB PO SCH (21:22)
[2021-08-19] MEDS: PANTOprazole 40 MG TAB PO SCH (21:22)
[2021-08-20] MEDS: ACETAMINOPHEN 500 MG TAB PO SCH ×3 (03:54→20:29)
[2021-08-20] MEDS: LOSARTAN POTASSIUM 50 MG TAB PO SCH (07:41)
[2021-08-20] MEDS: amLODIPine BESYLATE 5 MG TAB PO SCH (07:41)
[2021-08-20] MEDS: ASPIRIN 81 MG ECTAB PO SCH (07:41)
[2021-08-20] MEDS: LIDOCAINE 5% 1 PATCH TD SCH (07:41)
[2021-08-20] MEDS: FUROSEMIDE 40 MG TAB PO SCH (07:41)
[2021-08-20] MEDS: ISOSORBIDE MONO EXTENDED REL 60 MG TABCR PO SCH (07:41)
[2021-08-20] MEDS: METOPROLOL SUCC 25MG EXT REL TAB PO SCH ×2 (07:41→20:29)
[2021-08-20] MEDS: INSULIN ASPART PER UNIT SC SCH ×4 (08:39→21:40)
[2021-08-20] MEDS: INSULIN GLARGINE SOLOSTAR 100 UNITS/ML 3 ML PEN SC SCH (08:40)
[2021-08-20 10:00] LABS: INR 2.7 (0.9-1.1); Prothrombin Time 27.7 Seconds (9.0-12.0)
[2021-08-20 10:09] LABS: BUN Creatinine Ratio 21.7 (10-20); Calcium 8.4 mg/dl (8.5-10.1); Creatinine Clr Calc Pharmacy 63.3 ml/min; Potassium 3.8 mmol/L (3.5-5.1)
--- NOTE | 2021-08-20 13:31 | Hospitalist Progress Note ---
Date of Service August 20, 2021 Assessment & Plan (1) Fall: Plan: (1) Fall: #. Intramuscular hematoma Pt presents after fall since returning from [facility] rehab. Also suffered small intramuscular hematoma. likely secondary to oxycodone, hydroxyzine &/or CAUTI Hydroxyzine DC'd, reduce oxycodone use, scheduled tylenol. INR down to 2.7, will resume 2.5 mg of coumadin. Recheck INR in am for dose tomorrow. H&H is stable. PT/OT, awaiting placement. (2) UTI (urinary tract infection): #. Concern of Hematuria Recent camejo placement within the last 2-4 weeks at [facility] for urinary retention. Since that time he has been placed on Flomax. Camejo seems to have been taken out this admission. UCx positive for P. mirabilis. Status post Rocephin treatment. Replaced Camejo cath again as patient was having urinary retention Concern of pink urine on 08/17 evening, hemoglobin has been stable, UA reviewed- some hematuria possibly traumatic, camejo bag with no hematuria. Monitor hemoglobin closely, warfarin has been held for now. Repeat UA in 2-3 weeks and if persistent, follow up with urology. (3) Back pain: Plan: Cont supportive care for now. He is s/p L1 kyphoplasty on 07/22. c/w Lidoderm patch Reports some improvement in low back pain. (4) Intramuscular hematoma: Plan: Likely from his fall and being on anticoagulants. CT abdomen pelvis:Small amount of hyperdense intramuscular hemorrhage within the left paraspinal muscles at the L1 level. This could be traumatic or po stprocedural. Supportive care Monitor while on Coumadin /aspirin Hb stable #. Other chronic medical conditions: Dementia, HTN, CAD, chronic atrial fibrillation, stroke, DM type II Continue with/resume home medications as and when appropriate We might need to cut down on Coumadin dose. Continue to monitor PT/INR. Patient will need close monitoring of Coumadin clinic as an outpatient. Continue with sliding scale insulin DVT prophylaxis: Coumadin Disposition: Awaiting placement, medically stable to go. CM following. Family visiting [place] today- likely discharge tomorrow (2) UTI (urinary tract infection): Admission and Anticipated Discharge Date Admission Date: August 08, 2021 Subjective Seen and examined at bedside. Sitting in chair, awake, alert, conversing well. Denies any new issues. Feels fine. States he wants to get discharged today. No chest pain, shortness of breath, nausea, vomiting. Physical Exam Physical Exam: General: Sitting comfortably in chair, not in distress, on room air HEENT: EOMI, MICHELLE, MMM Chest: Clear breath sounds bilaterally, no wheezes or crackles CVS: Regular rate and rhythm, normal heart sounds, no murmur Abdomen: Soft, non tender, not distended, normal bowel sounds Neuro: Awake, alert, oriented, conversing well, non focal Extremities: No cyanosis, clubbing or edema Results & Data Results & Data ([facility]) Vital Signs (Past 12 Hours) Vital Signs Temp Pulse Resp BP Pulse Ox 08/20/21 11:09 96/60 L 08/20/21 07:53 36.4 C L 67 16 136/77 93 Laboratory Results BMP 08/20/21 09:32 Sodium 138 Potassium 3.8 Chloride 106 Carbon Dioxide 23 BUN 20 Creatinine 0.92 Glucose 191 H Calcium 8.4 L Medications Administered Current Inpatient Medications Acetaminophen (Acetaminophen 500 Mg Tab) 1,000 mg PO Q8H CL[facility]ISSA Stop: 09/07/21 19:45 Last Admin: 08/20/21 12:25 Dose: 1,000 mg Documented by: Amlodipine Besylate (Amlodipine Besylate 5 Mg Tab) 5 mg PO DAILY CL[facility]ISSA Stop: 09/08/21 08:59 Last Admin: 08/20/21 07:41 Dose: 5 mg Documented by: Aspirin (Aspirin 81 Mg Ectab) 81 mg PO QAM CLARISSA Stop: 09/08/21 08:59 Last Admin: 08/20/21 07:41 Dose: 81 mg Documented by: Atorvastatin Calcium (Atorvastatin 40 Mg Tab) 40 mg PO PM CL[facility]ISSA Stop: 09/07/21 20:59 Last Admin: 08/19/21 21:22 Dose: 40 mg Documented by: Dextrose (Dextrose 50% 50 Ml Syringe) 25 - 50 ml IV UD PRN; Protocol PRN Reason: Hypoglycemia Protocol Stop: 09/07/21 20:05 Furosemide (Furosemide 40 Mg Tab) 40 mg PO DAILY CLARISSA Stop: 09/08/21 08:59 Last Admin: 08/20/21 07:41 Dose: 40 mg Documented by: Glucagon (Glucagon For Inj 1 Mg Vial) 1 mg SQ UD PRN; Protocol PRN Reason: Hypoglycemia Protocol Stop: 09/07/21 20:05 Glucose (Glucose 10 Tabs/Tube) 4 - 8 tabs PO UD PRN; Protocol PRN Reason: Hypoglycemia Protocol Stop: 09/07/21 20:05 Glucose (Glucose 40% Gel 15 Gm Tube) 15 - 30 gm PO UD PRN; Protocol PRN Reason: Hypoglycemia Protocol Stop: 09/07/21 20:05 Insulin Aspart (Insulin Aspart Per Unit) 0 units SC [facility] Stop: 09/07/21 20:59 Last Admin: 08/20/21 12:24 Dose: 8 units Documented by: Insulin Glargine (Insulin Glargine Solostar 100 Units/Ml 3 Ml Pen) 12 units SC [facility] Stop: 09/08/21 08:59 Last Admin: 08/20/21 08:40 Dose: 12 units Documented by: Isosorbide Mononitrate (Isosorbide [place] Extended Rel 60 Mg Tabcr) 60 mg PO [facility] Stop: 09/08/21 08:59 Last Admin: 08/20/21 07:41 Dose: 60 mg Documented by: Lidocaine (Lidocaine 5% 1 Patch) 1 patch TD [facility] Stop: 09/13/21 16:29 Last Admin: 08/20/21 07:41 Dose: 1 patch Documented by: Lidocaine HCl (Lidocaine 2% Jelly 5 Ml Tube) 5 ml EXT UD PRN PRN Reason: URINARY CATHETER Stop: 09/09/21 12:59 Last Admin: 08/10/21 13:29 Dose: 5 ml Documented by: Losartan Potassium (Losartan Potassium 50 Mg Tab) 50 mg PO [facility] Stop: 09/08/21 08:59 Last Admin: 08/20/21 07:41 Dose: 50 mg Documented by: Metoprolol Succinate (Metoprolol Succ 25mg Ext Rel Tab) 75 mg PO BID [facility] Stop: 09/07/21 20:59 Last Admin: 08/20/21 07:41 Dose: 75 mg Documented by: Miscellaneous (Carbohydrates For Hypoglycemia ) 15 - 30 gm PO UD PRN PRN Reason: Hypoglycemia Protocol Stop: 09/07/21 20:05 Miscellaneous (Remove Lidoderm Patch) 1 ea N/A DAILY@2100 [facility] Stop: 09/13/21 20:59 Last Admin: 08/19/21 21:22 Dose: Not Given Documented by: Oxycodone HCl (Oxycodone Hcl Ir 5 Mg Tab (Immediate Release)) 5 mg PO Q6H PRN PRN Reason: Pain Stop: 08/22/21 20:05 Last Admin: 08/10/21 08:43 Dose: 5 mg Documented by: Pantoprazole Sodium (Pantoprazole 40 Mg Tab) 40 mg PO PM [facility] Stop: 09/07/21 20:59 Last Admin: 08/19/21 21:22 Dose: 40 mg Documented by: Tamsulosin HCl (Tamsulosin Hcl 0.4 Mg Cap) 0.4 mg PO HS [facility] Stop: 09/07/21 20:59 Last Admin: 08/19/21 21:22 Dose: 0.4 mg Documented by: Warfarin Sodium (Warfarin Sod 5 Mg Tab) 5 mg PO DAILY@1600 [facility] Stop: 09/13/21 16:29 Last Admin: 08/17/21 15:24 Dose: 5 mg Documented by: (1) Fall Encounter type: initial encounter Qualified Code(s): W19.XXXA - Unspecified fall, initial encounter (2) UTI (urinary tract infection) Hematuria presence: without hematuria Urinary tract infection type: site unspecified Qualified Code(s): N39.0 - Urinary tract infection, site not specified
[2021-08-20] MEDS ORDERED: WARFARIN SOD 2.5 MG TAB PO SCH (16:00)
[2021-08-20] MEDS: TAMSULOSIN HCL 0.4 MG CAP PO SCH (20:28)
[2021-08-20] MEDS: PANTOprazole 40 MG TAB PO SCH (20:28)
[2021-08-20] MEDS: ATORVASTATIN 40 MG TAB PO SCH (20:28)
[2021-08-21] MEDS: ACETAMINOPHEN 500 MG TAB PO SCH (05:01)
[2021-08-21] MEDS: INSULIN GLARGINE SOLOSTAR 100 UNITS/ML 3 ML PEN SC SCH (08:35)
[2021-08-21] MEDS: FUROSEMIDE 40 MG TAB PO SCH (08:36)
[2021-08-21] MEDS: INSULIN ASPART PER UNIT SC SCH ×2 (08:36→12:00)
[2021-08-21] MEDS: amLODIPine BESYLATE 5 MG TAB PO SCH (08:36)
[2021-08-21] MEDS: LOSARTAN POTASSIUM 50 MG TAB PO SCH (08:36)
[2021-08-21] MEDS: ISOSORBIDE MONO EXTENDED REL 60 MG TABCR PO SCH (08:36)
[2021-08-21] MEDS: ASPIRIN 81 MG ECTAB PO SCH (08:37)
[2021-08-21] MEDS: LIDOCAINE 5% 1 PATCH TD SCH (08:37)
[2021-08-21] MEDS: METOPROLOL SUCC 25MG EXT REL TAB PO SCH (08:37)
[2021-08-21 11:04] LABS: INR 2.3 (0.9-1.1); Prothrombin Time 23.7 Seconds (9.0-12.0)
--- NOTE | 2021-08-21 17:59 | Discharge Summary ---
Date of Service August 21, 2021 Admission HPI Per Admitting Provider Chief Complaint: falls and weakness Primary Care Provider: [facility] [facility] Per daughter, patient is getting worse recently. Multiple recent falls. Now weakness and worsening confusion. He lives at [facility]. Recently was in [facility] twice and most recently was post-op s/p kyphoplasty during last admission. He did better at [facility] this last time and was walking with a rolling walker and was doing well, following instructions, etc. He was just discharged from there looking well on Tuesday. Once he was back at [facility], daughter was called that he fell again. He is noted to be on scheduled hydroxyzine since discharge from the hospital along with PRN oxycodone for management of post-operative pain. He had two doses of oxycodone at today and also had some morphine in the ER. By the time I spoke with him he was confused and disoriented. He had his eyes closed and resisted attempts to open them or any attempt for physical exam. Daughter states that he was lethargic even prior to the morphine given. Camejo is in place on arrival. It has been there for about two weeks now. This was placed at [facility] the first time he was there, for urinary retention. As it is not chronic, and since its placement he was started on Flomax, a TOV was considered with daughter on phone. Daughter ideally would like him back at [facility] and may consider Hospice or other such options if he doesn't clinically respond to treatment. Admission Exam Per Admitting Provider CONSTITUTIONAL: WNWD, vitals as above, generally well-appearing, NAD EYES: closed, patient resists exam of eyes. ENT: external ear and nose normal, MMM NECK: trachea midline RESPIRATORY: clear to auscultation bilaterally, no crackles, rales or wheezes, normal respiratory effort CARDIOVASCULAR: regular rate and rhythm, S1 and 2 heard without murmurs, gallops or rubs, no JVD, no peripheral edema GASTROINTESTINAL: soft, nontender, ND, no guarding MUSCULOSKELETAL: cannot assess strength as he is resisting exam, head is normocephalic and atraumatic SKIN: warm and dry, no overt wounds or ecchymoses seen. Could not examine the back of his body. NEUROLOGIC: Limited evaluation. Eyes are closed and he won't open them,he is lethargic, no tremor. PSYCHIATRIC: sleepy, disoriented, isn't able to answer what his name is. Principal Diagnosis Fall, intramuscular hematoma, CAUTI Discharge Exam General: Sitting comfortably in chair, not in distress, on room air HEENT: EOMI, MICHELLE, MMM Chest: Clear breath sounds bilaterally, no wheezes or crackles CVS: Regular rate and rhythm, normal heart sounds, no murmur Abdomen: Soft, non tender, not distended, normal bowel sounds Neuro: Awake, alert, oriented, conversing well, non focal Extremities: No cyanosis, clubbing or edema Discharge Data Allergies Allergy/AdvReac Type Severity Reaction Status Date / Time shellfish derived Allergy Severe anaphylaxis Verified 08/08/21 19:25 Penicillins Allergy Intermediate HIVES Verified 08/08/21 18:38 clopidogrel Allergy Mild INTERNAL Verified 08/08/21 18:38 HIVES Consultations 08/18/21 12:18 Consult Palliative Care Routine Ordered Studies 08/08/21 15:05 CT head/brain wo con Stat 08/08/21 15:07 CT abd pelvis IV con only Stat CT lumbar spine w con Stat 08/08/21 16:20 CT chest diagnostic w con Stat Hospital Course (1) Fall: (2) UTI (urinary tract infection): Fall with intramuscular hematoma Pt presents after fall since returning from [facility] rehab. Also suffered small intramuscular hematoma. likely secondary to oxycodone, hydroxyzine &/or CAUTI Hydroxyzine and oxycodone discontinued. Intramuscular hematoma Likely from his fall and being on anticoagulants. CT abdomen pelvis:Small amount of hyperdense intramuscular hemorrhage within the left paraspinal muscles at the L1 level. This could be traumatic or postprocedural. Stable, conservative management Suspected CAUTI Recent camejo placement within the last 2-[address] [facility] for urinary retention. Since that time he has been placed on Flomax. Camejo seems to have been taken out this admission. urine clx positive for P. mirabilis. Status post Rocephin treatment. Replaced Camejo cath again as patient was having urinary retention Suspected traumatic hematuria UA reviewed- some hematuria possibly traumatic, camejo bag with no hematuria. Hb stable, coumadin has been resumed with no gross hematuria noted. Consider repeat UA in 2-3 weeks and if persistent, follow up with urology. Back pain: s/p L1 kyphoplasty on 07/22. Managed here with Lidoderm patch and tid tylenol with pain under control Patient has not required any oxycodone for the past 10 days, so will not prescribe any at discharge especially with concern of falls and cognition issues. PDMP reviewed. Continue tylenol and lidoderm patch at discharge. F/u with PCP if pain not controlled Chronic atrial fibrillation- discussed with daughter, she wanted to continue coumadin and other medications. here INR was supratherapeutic and had to be held for days. His prior dose was 2.5 mg alternating with 5mg, but was currently on 7.5 mg. Will change to his prior dose of 2.5 mg MWF and 5 mg TTSS. Follow up with coumadin clinic for further dose instructions. Coumadin clinic notified by nurse coordinator DM -2- continue insulin as before. further management per PCP HTN- stable, continue norvasc, losartan, metoprolol, imdur, lasix Cognitive impairment- seems to be at baseline and stable throughout my encounter. Total Time Total Time Spent Total Time Spent (In Minutes): 40 Discharge Plan Discharge Items Patient Disposition: Home - Self-Care Reason For Visit: WEAKNESS, UTI, WORSENING CONFUSION Discharge Diagnosis: Weakness, UTI Activity: Resume your previous activity Non-emergency contact: Primary Care Provider Call non-emergency contact if: you have any medication questions, your symptoms worsen, your pain is concerning for you and you have a fever Follow-up/Referrals: Melo Carlos MD [Outside Practitioners] - 08/26/21 3:00 pm (Date & Time 08/26/2021 3:00 PM Provider Melo Carlos MD [facility] ) Diet: Regular Addtl Attending Provider Instructions: We have refilled your medications You can take tylenol every 6 hours as needed for pain. Follow with your family doctor if pain is not controlled. You have not required any oxycodone over the past 10 days, hence we have discontinued it. We have changed your coumadin to 2.5 mg alternating with 5 mg as before. Take 2.5 mg tonight. Follow with coumadin clinic for further management of your coumadin Pending Studies at Discharge: No Stand-Alone Forms: My Q1 Labs, Smoking Cessation Medications and DC Order Prescriptions: New GlucaGen Diagnostic Kit 1 mg/mL Recon Soln 1 mg subcut UD PRN (Reason: hypoglycemia) Qty: 1 RF: 0 insulin aspart U-100 [Novolog Flexpen U-100 Insulin] 100 unit/mL (3 mL) insulin pen 4 unit subcut TIDWMEAL Qty: 3 RF: 0 lidocaine 4 % adhesive patch,medicated 1 patch topical QAM Qty: 30 RF: 0 warfarin [Jantoven] 2.5 mg Tablet 2.5 mg PO DIRECTED Qty: 30 RF: 0 Continued metoprolol succinate 50 mg tablet extended release 24 hr 75 mg PO BID RF: 0 nitroglycerin [Nitrostat] 0.4 mg Tablet, Sublingual 0.4 mg sublingual UD PRN (Reason: Chest Pain) RF: 0 clindamycin HCl 300 mg capsule 600 mg PO ONCE PRN (Reason: pretreat for dental appt) RF: 0 losartan 50 mg tablet 50 mg PO QAM Qty: 30 RF: 0 furosemide 40 mg tablet 40 mg PO DAILY Qty: 30 RF: 0 atorvastatin 40 mg tablet 40 mg PO PM Qty: 30 RF: 0 sennosides [Senokot] 8.6 mg tablet 8.6 - 17.2 mg PO HS PRN (Reason: Constipation) Qty: 30 RF: 0 acetaminophen [Tylenol] 325 mg Tablet 650 mg PO Q6H MDD 3G PRN (Reason: Pain) Qty: 60 RF: 0 polyethylene glycol 3350 17 gram Powder In Packet 17 g PO BID PRN (Reason: Constipation) Qty: 30 RF: 0 amlodipine 5 mg tablet 5 mg PO DAILY Qty: 30 RF: 0 aspirin 81 mg Tablet,Delayed Release (Dr/Ec) 81 mg PO QAM Qty: 30 RF: 0 isosorbide mononitrate 60 mg tablet extended release 24 hr 60 mg PO QAM Qty: 30 RF: 0 tamsulosin 0.4 mg Capsule 0.4 mg PO HS Qty: 30 RF: 0 pantoprazole 40 mg tablet,delayed release (DR/EC) 40 mg PO PM Qty: 30 RF: 0 albuterol sulfate 90 mcg/actuation HFA aerosol inhaler 2 puff INHALATION Q6H PRN (Reason: Wheezing) Qty: 6.7 RF: 0 cholecalciferol (vitamin D3) [Vitamin D3] 1,000 unit Capsule 1,000 unit PO QAM Qty: 30 RF: 0 Changed Lantus Solostar U-100 Insulin 100 unit/mL (3 mL) insulin pen 12 unit subcut QAM Qty: 3 RF: 0 Discontinued calcium carbonate [Antacid Ext Str (calcium carb)] 300 mg (750 mg) Tablet,Chewable 1,500 mg PO TID PRN (Reason: Indigestion) RF: 0 loperamide 2 mg Capsule 2 mg PO UD MDD 4 CAPS PRN (Reason: Diarrhea) RF: 0 insulin aspart U-100 [Novolog U-100 Insulin aspart] 100 unit/mL solution 4 unit SC 1130,1630,2100 RF: 0 warfarin [Jantoven] 7.5 mg Tablet 7.5 mg PO DAILY@1600 Qty: 14 RF: 0 hydroxyzine HCl 25 mg tablet 25 mg PO TID RF: 0 magnesium oxide 400 mg magnesium Tablet 400 mg PO DAILY RF: 0 oxycodone 5 mg tablet 5 mg PO Q6H PRN (Reason: Pain) RF: 0 Discharge Orders: Discharge Order (Routine); Ordered 08/21/21 Ordered By: Bird Braun Admission Data Admit Date/Time: 08/08/21 17:37 Attending Provider: Bird Braun Admit Provider: Rosamaria Kramer Primary Care Provider: [facility] Other Providers: Rosamaria Kramer ; [facility] ; Sofia Romero Other Interventions: Discharge Summary Assessment (RN) Last Done: 08/21/21 11:49
== END 2021-08-21 13:52 | disposition home health service (06) | DRG 699 ==
LOC: ED 14:42 → 3E 17:37 → SUATTDRO 17:37 → 3E 19:43

== ENCOUNTER 2021-10-04 15:45 | Inpatient (IN) ==
[2021-10-04] MEDS ORDERED: fentaNYL citrate 100 MCG/2 ML VIAL IV STA (16:16)
--- NOTE | 2021-10-04 16:43 | Emergency Department Note ---
Impression & Plan Acute UTI, Back pain, Acute urinary retention, Chronic indwelling Cherry catheter, Confusion ED Provider Note Provider: Isaac Estes MD DATE OF SERVICE: 10/04/2021 CHIEF COMPLAINT: Back pain, urinary issues HISTORY OF PRESENT ILLNESS: Patient is a 86-year-old gentleman history of chronic back pain status post kyphoplasty in July with a history of hypertension as well, diabetes, atrial fibrillation on Coumadin, urinary retention now requiring Cherry catheter over the last month or 2 presenting via ambulance from his nursing facility today reporting increasing back pain over the last day or 2. Patient was out states she mainly is here with back pain. EMS reported the patient was recently treated with an antibiotic for a urine infection. Patient denies fever or chills or chest pain or shortness of breath. Denies URI symptoms. States has been using some Tylenol for back pain which has not helped. Denies falls. Patient's not entirely clear initially with a history of highly about the Cherry catheter. Given this with his permission discussed with his daughter via phone. She reports he had urine retention and was discharged from here last month to [place] and has been doing much better. Over the last week has been requiring a little bit. Was on Macrobid as an outpatient but no urine sample was sent for testing. Evidently she reports she went to visit him today and he was more confused and foggy than normal and the aide at his facility states there is pus coming from his Cherry. Daughter does report that the Cherry was changed last week at some point she believes. She corroborates that she does not believe there have been any falls. She states while he does have some underlying dementia and memory issues is more confused than normal. REVIEW OF SYSTEMS: A total of 10 review of systems was obtained and negative except as stated above in the HPI. PAST MEDICAL HISTORY: As noted above MEDICATIONS: Reviewed medication listing from the facility which includes warfarin SOCIAL HISTORY: Resides at [facility] PHYSICAL EXAM: GENERAL: alert and oriented in no acute distress on stretcher but forgets some details of recent events. Head: normocephalic and atraumatic EYES: No injection, discharge or icterus. PERRL NECK: Trachea midline. Supple. ENT: Mucous membranes pink and moist. LUNGS: Airway patent. No retractions. Breath sounds clear HEART: Regular rate and rhythm. No chest wall tenderness ABDOMEN: Soft and non-tender, without guarding or rebound. BACK: Sacral to lumbar midline tenderness, no SI joint tenderness. No bilateral flank tenderness. SKIN: Acyanotic, warm, dry, without rashes EXTREMITIES: Patient reports chronic 2-3+ lower extremity edema that is unchanged. NEUROLOGICAL: No focal deficits. No aphasia. No facial droop or slurred speech. EK bpm ventricular paced rhythm occasional PVC. Bundle branch block consistent with pacing noted without significant acute ST segment elevation. QTc 534. CONTINUOUS CARDIAC MONITORING: was ordered and showed a heart rate of 60s bpm in ventricular paced rhythm with occasional PVC Patient's laboratory studies and imaging reviewed. Differential includes Infection, dehydration, metabolic abnormality, hypo/hyperglycemia, electrolyte disturbance, anemia, hypoxia, cardiac sources, intracerebral event, toxicologic, neurologic, as well as other pathologies. IMPRESSION/MEDICAL DECISION MAKIN-year-old gentleman history of A. fib on Coumadin history of back issues. No new trauma reported. Is on Coumadin however an INR was checked. Pus coming from the Cherry. This will be changed. Sample sent. Culture sent as well although I doubt he is septic. Question however complicated UTI versus evolving pyelonephritis. CT scan of the head given some confusion as well as CT scan of the abdomen pelvis will be completed. Daughter was contacted via phone initially. Given some fentanyl for pain. No acute new neurological deficits noted though again he is not the best historian and the daughter states this is worse than normal. Discussed with pharmacy given urine microbiology in the past for appropriate antibiotic dosing. Cherry replaced here with a liter of foul looking urine obtained. Some mildly elevated white blood cell count is noted today with slight hemoglobin drop to 9.6 for from 10.8. INR subtherapeutic 1.6. Replacement the patient did have some pain and fentanyl did cause him to desaturate slightly. A little bit more drowsy think likely related the pain medicine. Some hyponatremia noted as well as some MAULIK likely postrenal given some retention findings with the Cherry given in place prior to arrival. Urinalysis grossly infected. CT scan of the head and abdomen pelvis per radiology without acute new intracranial abnormality. CT of the abdomen pelvis per radiology with bladder and renal system inflammation consistent with what appears to be UTI. Kyphoplasty noted. Some possible proctitis noted. Unclear if this is may be related to the surrounding inflammation from urinary source. Patient with a history of standard troponin elevation based on his last levels here in June. High-sensitivity troponin which is a new assay here today shows some elevation but unclear if this is chronic or new. As the patient without significant active chest pain believe likely more chronic. Will need trending. Believe needs further care here at the hospital. Discussed with pharmacy and given microbiology history given a dose of ceftriaxone as well as vancomycin. Daughter updated via phone. DIAGNOSIS: Acute UTI, chronic Cherry, confusion, back pain DISPOSITION: Hospitalist will evaluate Patient was agreeable with this plan. Past Med/Surg History Medical History (Updated 10/04/21 @ 23:03 by Isaac Estes M.D.) ACS (acute coronary syndrome) CAD (coronary artery disease) Chronic anticoagulation DM type 2 (diabetes mellitus, type 2) Dyslipidemia Dyspnea on exertion Gout History of cerebral hemorrhage HTN (hypertension) Pacemaker Pancreatic cancer Paroxysmal atrial fibrillation Sinus node dysfunction SSS (sick sinus syndrome) Surgical History H/O arthroscopic knee surgery H/O colonoscopy H/O esophagogastroduodenoscopy H/O inguinal hernia repair History of pancreatectomy "07/15/2010 Dr. Pacheco [facility] [place] " S/P CABG x 1 S/P coronary artery stent placement "03/29/03 cardiac cath: RCA - stent of 90% lesion, L circ obtuse kenneth - stent of 80% lesion " S/P splenectomy S/P tonsillectomy and adenoidectomy Family History Other Family history non-contributory Social History Smoking Status: Former smoker Tobacco Type: Cigarettes Hx Alcohol Use: No Hx Substance Use: No Preferred Language: Grenadian Communication Ability: Impaired Trading Assistant Required: No Beliefs That Will Affect Care: None marital status: / Current Living Situation: Senior Care Current Living Situation Comment: Assisted living current occupational status: retired How many Children do You have: 2 Feels Safe at Home: Yes Safety Concerns: Feels Safe At This Time Assistive Devices: Walker Allergies Allergies Allergy/AdvReac Type Severity Reaction Status Date / Time shellfish derived Allergy Severe anaphylaxis Verified 10/04/21 16:25 clopidogrel Allergy Intermediate INTERNAL Verified 10/04/21 16:25 HIVES Penicillins Allergy Intermediate HIVES Verified 10/04/21 16:29 Home Meds Home Medications Medication Instructions Recorded Confirmed nitroglycerin 0.4 mg sublingual 0.4 mg SUBLINGUAL UD PRN 09/04/18 10/04/21 tablet (Nitrostat) Qc Antacid Tabs 750 mg PO TID PRN 09/04/21 10/04/21 atorvastatin 40 mg tablet 40 mg PO HS 09/04/21 10/04/21 furosemide 40 mg tablet 40 mg PO QAM 09/04/21 10/04/21 pantoprazole 40 mg tablet,delayed 40 mg PO HS 09/04/21 10/04/21 release warfarin 5 mg tablet 5 mg PO WK 09/04/21 10/04/21 warfarin 2.5 mg tablet (Jantoven) 2.5 mg PO [id number] 10/04/21 10/04/21 Previous Rx's Medication Instructions Recorded acetaminophen 325 mg tablet 650 mg PO Q6H PRN #60 tab MDD 3 08/21/21 (Tylenol) GRAMS/24 HOURS albuterol sulfate 90 mcg/actuation 2 puff INHALATION Q6H PRN #6.7 g 08/21/21 aerosol inhaler amlodipine 5 mg tablet 5 mg PO DAILY #30 tab 08/21/21 aspirin 81 mg tablet,delayed 81 mg PO QAM #30 tab 08/21/21 release insulin glargine 100 unit/mL (3 12 unit SUBCUT QAM #3 box 08/21/21 mL) subcutaneous pen (Lantus Solostar U-100 Insulin) isosorbide mononitrate 60 mg 60 mg PO QAM #30 tab 08/21/21 tablet,extended release 24 hr losartan 50 mg tablet 50 mg PO QAM #30 tab 08/21/21 sennosides 8.6 mg tablet (Senokot) 8.6 - 17.2 mg PO HS PRN #30 tab 08/21/21 tamsulosin 0.4 mg capsule 0.4 mg PO HS #30 cap 08/21/21 Results & Data (ED) Vital Signs Vital Signs - 24 hr 10/04/21 16:02 10/04/21 19:39 Temperature 36.9 C Temperature Source Oral Pulse Rate 63 Pulse Rate [Left] 64 Pulse Rhythm Regular Pulse Strength Normal Respiratory Rate 18 24 Respiratory Effort / Characteristics Non-Labored Non-Labored Respiratory Depth Normal Normal Respiratory Pattern Regular Blood Pressure 112/59 L Blood Pressure [Left Arm] 112/59 L Blood Pressure Mean 76 Blood Pressure Mean [Left Arm] 76 Pulse Oximetry 95 95 Oxygen Delivery Method Room Air Room Air Sepsis Recent Fever Within 48 Hours No Sepsis New/Unexplained Change in Mental Status No Sepsis Action Taken by Nursing No Action Required Laboratory Data Result diagrams: 10/04/21 16:50 10/04/21 16:50 Lab Results 10/04/21 10/04/21 10/04/21 Range/Units 16:50 16:50 16:50 WBC 13.81 H (4.8-10.8) K/uL RBC 3.27 L (4.7-6.1) M/uL Hgb 9.6 L (14.0-18.0) g/dL Hct 29.4 L (42-52) % MCV 89.9 (80-100) fL MCH 29.4 (25-34) pg MCHC 32.7 (32-36) g/dL RDW Std Deviation 56.0 H (36.4-46.3) fL RDW Coeff of Trevon 16.9 H (11.5-14.5) % Plt Count 227 (130-400) K/uL MPV 10.5 H (7.4-10.4) fL Immature Gran % (Auto) 0.4 % Neut % (Auto) 74.0 % Lymph % (Auto) 12.0 % Rosebud % (Auto) 12.7 % Eos % (Auto) 0.7 % Baso % (Auto) 0.2 % Neut # (Auto) 10.23 H (1.4-6.5) K/uL Lymph # (Auto) 1.66 (1.2-3.4) K/uL Rosebud # (Auto) 1.75 H (0.11-0.59) K/uL Eos # (Auto) 0.09 (0-0.5) K/uL Baso # (Auto) 0.03 (0-0.2) K/uL Immature Gran # (Auto) 0.05 H (0.00-0.02) K/uL PT 17.1 H (9.0-12.0) Seconds INR 1.6 H (0.9-1.1) Sodium 130 L (136-145) mmol/L Potassium 5.0 (3.5-5.1) mmol/L Chloride 103 (98-107) mmol/L Carbon Dioxide 19 L (21-32) mmol/L Anion Gap 8 (3-11) BUN 42 H (6-23) mg/dl Creatinine 1.69 H (0.6-1.4) mg/dl Est Cr Clr Drug Dosing Not Reportable Est GFR ( Amer) 41.7 ml/min Est GFR (Non-Af Amer) 36.0 ml/min BUN/Creatinine Ratio 24.9 H (10-20) Glucose 260 H (70-99(Fasting)) mg/dl Lactate (0.4-2.0) mmol/L Calcium 8.7 (8.5-10.1) mg/dl Total Bilirubin 1.0 (0.2-1.0) mg/dl AST 13 (13-39) U/L ALT 8 (7-52) U/L Alkaline Phosphatase 98 (34-104) U/L Troponin I High Sens 72.8 H* (0-20) pg/ml Total Protein 6.9 (6.0-8.3) gm/dl Albumin 3.1 L (3.4-5.0) gm/dl Globulin 3.8 (2.5-4.0) gm/dl Albumin/Globulin Ratio 0.8 L (0.9-2) Lipase 8 L (11-82) U/L TSH (0.300-4.500) uIu/ml Urine Color Urine Appearance (Clear) Urine pH (4.5-7.5) Ur Specific [place] (1.000-1.030) Urine Protein (Negative) Urine Glucose (UA) (Negative) Urine Ketones (Negative) Urine Blood (Negative) Urine Nitrite (Negative) Urine Bilirubin (Negative) Urine Urobilinogen (Negative) Ur Leukocyte Esterase (Negative) Urine WBC (Auto) (0-5) /hpf Urine RBC (Auto) (0-4) /hpf U Hyaline Cast (Auto) (0-5) /lpf U Epithel Cells (Auto) (0-5) /lpf Urine Bacteria (Auto) (Negative) Urine Yeast SARS-CoV-2, RNA, NAAT (NEGATIVE) 05/15/22 05/15/22 05/15/22 Range/Units 16:50 16:50 17:10 WBC (4.8-10.8) K/uL RBC (4.7-6.1) M/uL Hgb (14.0-18.0) g/dL Hct (42-52) % MCV (80-100) fL MCH (25-34) pg MCHC (32-36) g/dL RDW Std Deviation (36.4-46.3) fL RDW Coeff of Trevon (11.5-14.5) % Plt Count (130-400) K/uL MPV (7.4-10.4) fL Immature Gran % (Auto) % Neut % (Auto) % Lymph % (Auto) % Rosebud % (Auto) % Eos % (Auto) % Baso % (Auto) % Neut # (Auto) (1.4-6.5) K/uL Lymph # (Auto) (1.2-3.4) K/uL [place] # (Auto) (0.11-0.59) K/uL Eos # (Auto) (0-0.5) K/uL Baso # (Auto) (0-0.2) K/uL Immature Gran # (Auto) (0.00-0.02) K/uL PT (9.0-12.0) Seconds INR (0.9-1.1) Sodium (136-145) mmol/L Potassium (3.5-5.1) mmol/L Chloride (98-107) mmol/L Carbon Dioxide (21-32) mmol/L Anion Gap (3-11) BUN (6-23) mg/dl Creatinine (0.6-1.4) mg/dl Est Cr Clr Drug Dosing Est GFR ( Amer) ml/min Est GFR (Non-Af Amer) ml/min BUN/Creatinine Ratio (10-20) Glucose (70-99(Fasting)) mg/dl Lactate 1.5 (0.4-2.0) mmol/L Calcium (8.5-10.1) mg/dl Total Bilirubin (0.2-1.0) mg/dl AST (13-39) U/L ALT (7-52) U/L Alkaline Phosphatase (34-104) U/L Troponin I High Sens (0-20) pg/ml Total Protein (6.0-8.3) gm/dl Albumin (3.4-5.0) gm/dl Globulin (2.5-4.0) gm/dl Albumin/Globulin Ratio (0.9-2) Lipase (11-82) U/L TSH 2.692 (0.300-4.500) uIu/ml Urine Color Dark Yellow Urine Appearance Turbid A (Clear) Urine pH 8.5 H (4.5-7.5) Ur Specific [place] 1.015 (1.000-1.030) Urine Protein 2+ H (Negative) Urine Glucose (UA) Trace H (Negative) Urine Ketones Negative (Negative) Urine Blood 2+ H (Negative) Urine Nitrite Positive A (Negative) Urine Bilirubin Negative (Negative) Urine Urobilinogen Negative (Negative) Ur Leukocyte Esterase 3+ H (Negative) Urine WBC (Auto) >30 H (0-5) /hpf Urine RBC (Auto) >30 H (0-4) /hpf U Hyaline Cast (Auto) 0 (0-5) /lpf U Epithel Cells (Auto) 5-10 H (0-5) /lpf Urine Bacteria (Auto) 3+ H (Negative) Urine Yeast Not Reportable SARS-CoV-2, RNA, NAAT (NEGATIVE) 10/04/21 Range/Units 19:40 WBC (4.8-10.8) K/uL RBC (4.7-6.1) M/uL Hgb (14.0-18.0) g/dL Hct (42-52) % MCV (80-100) fL MCH (25-34) pg MCHC (32-36) g/dL RDW Std Deviation (36.4-46.3) fL RDW Coeff of Trevon (11.5-14.5) % Plt Count (130-400) K/uL MPV (7.4-10.4) fL Immature Gran % (Auto) % Neut % (Auto) % Lymph % (Auto) % Rosebud % (Auto) % Eos % (Auto) % Baso % (Auto) % Neut # (Auto) (1.4-6.5) K/uL Lymph # (Auto) (1.2-3.4) K/uL [place] # (Auto) (0.11-0.59) K/uL Eos # (Auto) (0-0.5) K/uL Baso # (Auto) (0-0.2) K/uL Immature Gran # (Auto) (0.00-0.02) K/uL PT (9.0-12.0) Seconds INR (0.9-1.1) Sodium (136-145) mmol/L Potassium (3.5-5.1) mmol/L Chloride (98-107) mmol/L Carbon Dioxide (21-32) mmol/L Anion Gap (3-11) BUN (6-23) mg/dl Creatinine (0.6-1.4) mg/dl Est Cr Clr Drug Dosing Est GFR ( Amer) ml/min Est GFR (Non-Af Amer) ml/min BUN/Creatinine Ratio (10-20) Glucose (70-99(Fasting)) mg/dl Lactate (0.4-2.0) mmol/L Calcium (8.5-10.1) mg/dl Total Bilirubin (0.2-1.0) mg/dl AST (13-39) U/L ALT (7-52) U/L Alkaline Phosphatase (34-104) U/L Troponin I High Sens (0-20) pg/ml Total Protein (6.0-8.3) gm/dl Albumin (3.4-5.0) gm/dl Globulin (2.5-4.0) gm/dl Albumin/Globulin Ratio (0.9-2) Lipase (11-82) U/L TSH (0.300-4.500) uIu/ml Urine Color Urine Appearance (Clear) Urine pH (4.5-7.5) Ur Specific [place] (1.000-1.030) Urine Protein (Negative) Urine Glucose (UA) (Negative) Urine Ketones (Negative) Urine Blood (Negative) Urine Nitrite (Negative) Urine Bilirubin (Negative) Urine Urobilinogen (Negative) Ur Leukocyte Esterase (Negative) Urine WBC (Auto) (0-5) /hpf Urine RBC (Auto) (0-4) /hpf U Hyaline Cast (Auto) (0-5) /lpf U Epithel Cells (Auto) (0-5) /lpf Urine Bacteria (Auto) (Negative) Urine Yeast SARS-CoV-2, RNA, NAAT NEGATIVE (NEGATIVE) Administered Medications Discontinued Medications Fentanyl Citrate (Fentanyl Citrate 100 Mcg/2 Ml Vial) 50 mcg IV NOW STA Stop: 10/04/21 16:17 Last Admin: 10/04/21 16:48 Dose: 50 mcg Documented by: [id number] Ceftriaxone Sodium (Rocephin) 2,000 mg in 70 mls @ 140 mls/hr IV NOW STA Stop: 10/04/21 17:29 Last Infusion: 10/04/21 17:50 Dose: 0 mls/hr Documented by: [id number] Admin: 10/04/21 17:16 Dose: 140 mls/hr Documented by: [id number] Vancomycin HCl 1,750 mg/ (Sodium Chloride) 535 mls @ 200 mls/hr IV NOW ONE Stop: 10/04/21 19:58 Last Infusion: 10/04/21 21:16 Dose: 0 mls/hr Documented by: [id number] Admin: 10/04/21 18:24 Dose: 200 mls/hr Documented by: [id number] Ioversol (Optiray 320 100ml) 94 ml IV ONCE ONE Stop: 10/04/21 18:07 Last Admin: 10/04/21 18:06 Dose: 94 ml Documented by: [id number] Imaging Data Radiologist's Impression: Abdomen/Pelvis CT 10/04/21 16:[address] WITH IV CONTRAST CT DOSE: 2533.28 mGy.cm HISTORY: low back pain TECHNIQUE: Multiaxial CT images of the abdomen and pelvis were performed f ollowing the use of intravenous contrast. A dose lowering technique was utilized adhering to the principles of ALARA. COMPARISON STUDY: Abdomen and pelvis CT 08/08/2021. FINDINGS: Respiratory motion and mild dependent changes seen at the lung bases. Suboptimal evaluation of the abdomen and pelvis due to the mild motion artifact. There is a right total hip arthroplasty. Slight progressive loss of height at the L1 vertebroplasty. However, no definite acute fractures identified. There is an old distal sacral fracture again noted. Old, healed left posterior rib fractures. There is a healing right posterior T12 fracture which is new from the prior study. There are poststernotomy changes and a pacemaker wire noted. The heart remains enlarged. Mild paravertebral edema at the L1 vertebroplasty remains unchanged. Severe bladder wall thickening which is decompressed by a Cherry catheter with adjacent fat stranding. This is similar to the prior study. Mild to moderate rectal wall thickening with perirectal fat stranding which has progressed. Mild fullness within the bilateral renal collecting systems and ureters without oniel hydronephrosis. Mild bilateral perinephric edema which has slightly progressed. No retroperitoneal hematoma or lymphadenopathy. There is a left circumaortic renal vein.. Calcified plaque within the normal caliber abd ominal aorta. Colonic diverticulosis. No evidence for acute diverticulitis. Evidence for prior bilateral inguinal hernia repair. No evidence for bowel obstruction. A few small gallstones. No gallbladder wall thickening. The liver, adrenal glands, and residual pancreas appear unremarkable. Prior distal pancreatectomy and splenectomy. IMPRESSION: 1. Slight progressive loss of height at the L1 vertebroplasty. However, no definite fractures identified. There is no significant central canal narrowing at this level. 2. Healing right posterior 12th rib fracture which is new from the prior study. No acute fractures identified. 3. Severe bladder wall thickening with adjacent fat stranding, unchanged. This could may represent a chronic cystitis. Recommend correlation with urinalysis. 4. Mild to moderate rectal wall thickening and perirectal fat stranding which has progressed. This likely represents a mild proctitis. 5. Mild fullness within the bilateral renal collecting systems/ureters without oniel hydronephrosis. No obstructing stones identified. There is also progressive mild perinephric edema. This could be chronic or represent a superimposed pyelonephritis. Recommend correlation with urinalysis. 6. No evidence for bowel obstruction. 7. Normal appendix. 8. Colonic diverticulosis. No evidence for acute diverticulitis. ACT 112: Negative or not required by law. Electronically signed by: Neeraj Faith M.D. 10/04/2021 6:[address] 10/04/21 16:[address] DOSE: HISTORY: confusion TECHNIQUE: Multiaxial CT images of the head were performed without the use of intravenous contrast. Automated exposure control was utilized for this study. A dose lowering technique was utilized adhering to the principles of ALARA. Comparison: None. Findings: The paranasal sinuses and mastoid air cells are clear. The calvarium and skull base are intact. There is no mass, hematoma, midline shift, acute infarct. White matter hypodensity is nonspecific but suggestive of microvascular ischemic change. The ventricles and sulci demonstrate mild age-related i nvolutional changes. No change in the old right parietal/occipital infarct. Old bilateral basal ganglia lacunar infarcts are also unchanged. There is an old small right frontal lobe infarct, unchanged. Impression: No significant change compared to the prior study. No acute intracranial abnormality. 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 ACT 112: Negative or not required by law. Electronically signed by: Neeraj Faith M.D. 10/04/2021 6:40 PM Chest X-Ray 10/04/21 17:02 XR chest 1V portable HISTORY: confusion COMPARISON: Chest 06/26/2021. FINDINGS: No pneumothorax. The heart is enlarged. There is mild pulmonary vascular congestion without overt edema. Trace right pleural effusion. There are poststernotomy changes and left-sided dual-chamber pacemaker. No new focal lung consolidations. IMPRESSION: Cardiomegaly with mild congestive change and a trace right pleural effusion. ACT 112: Negative or not required by law. Electronically signed by: Neeraj Faith M.D. 10/04/2021 5:28 PM Discharge Plan Visit Data Chief Complaint: Urinary Symptoms Stated Complaint: UTI, Lower back pain ED Provider: Isaac Estes Discharge Problem: Acute UTI, Back pain, Acute urinary retention, Chronic indwelling Cherry catheter, Confusion Patient Disposition: Admitted As Inpatient Discharge Instructions Interventions: ED Discharge Assessment Last Done: 10/04/21 21:51
[2021-10-04] MEDS ORDERED: cefTRIAXone SODIUM 2,000 MG/70 ML BAG IV STA (17:00)
[2021-10-04 17:07] LABS: Basophils # (auto) 0.03 K/uL (0-0.2); Basophils % (auto) 0.2 %; Eosinophils # (auto) 0.09 K/uL (0-0.5); Eosinophils % (auto) 0.7 %; Hematocrit (blood only) 29.4 % (42-52); Hemoglobin 9.6 g/dL (14.0-18.0); Immature Granulocytes # (auto) 0.05 K/uL (0.00-0.02); Immature Granulocytes % (auto) 0.4 %; Lymphocytes # (auto) 1.66 K/uL (1.2-3.4); Mean Corpuscular Hemoglobin 29.4 pg (25-34); Mean Corpuscular Hgb Conc 32.7 g/dL (32-36); Mean Corpuscular Volume 89.9 fL (80-100); Mean Platelet Volume 10.5 fL (7.4-10.4); Monocytes # (auto) 1.75 K/uL (0.11-0.59); Monocytes % (auto) 12.7 %; Neutrophils # (auto) 10.23 K/uL (1.4-6.5); Platelet Count 227 K/uL (130-400); RDW Coefficient of Variation 16.9 % (11.5-14.5); Red Blood Count 3.27 M/uL (4.7-6.1); White Blood Count 13.81 K/uL (4.8-10.8)
[2021-10-04 17:15] LABS: INR 1.6 (0.9-1.1); Prothrombin Time 17.1 Seconds (9.0-12.0)
[2021-10-04 17:16] LABS: Appearance Urine Turbid (Clear); Bilirubin Urine Negative (Negative); Blood Urine 2+ (Negative); Color Urine Dark Yellow; Glucose Urine UA Trace (Negative); Ketones Urine Negative (Negative); Leukocyte Esterase Urine 3+ (Negative); Nitrite Urine Positive (Negative); Specific Gravity Urine 1.015 (1.000-1.030); Urobilinogen Urine Negative (Negative); WBC Urine Automated >30 /hpf (0-5); pH Urine 8.5 (4.5-7.5)
[2021-10-04 17:18] LABS: Protein Urine 2+ (Negative)
[2021-10-04] MEDS ORDERED: VANCOMYCIN CONSULT ACTIVE PRN (17:18)
[2021-10-04] MEDS ORDERED: VANCOMYCIN HCL 1,750 MG in SODIUM CHLORIDE 0.9% 500 ML IV ONE (17:18)
[2021-10-04 17:27] LABS: Alanine Aminotransferase 8 U/L (7-52); Albumin Globulin Ratio 0.8 (0.9-2); Albumin Level 3.1 gm/dl (3.4-5.0); Alkaline Phosphatase 98 U/L (34-104); Anion Gap 8 (3-11); Aspartate Aminotransferase 13 U/L (13-39); BUN Creatinine Ratio 24.9 (10-20); Blood Urea Nitrogen 42 mg/dl (6-23); Calcium 8.7 mg/dl (8.5-10.1); Carbon Dioxide 19 mmol/L (21-32); Chloride 103 mmol/L (98-107); Est GFR (African American) 41.7 ml/min; Globulin 3.8 gm/dl (2.5-4.0); Glucose 260 mg/dl (70-99(Fasting)); Lipase 8 U/L (11-82); Sodium 130 mmol/L (136-145); Total Protein 6.9 gm/dl (6.0-8.3)
--- NOTE | 2021-10-04 17:30 | XRay Report ---
XR chest 1V portable HISTORY: confusion COMPARISON: Chest 06/26/2021. FINDINGS: No pneumothorax. The heart is enlarged. There is mild pulmonary vascular congestion without overt edema. Trace right pleural effusion. There are poststernotomy changes and left-sided dual-jennifer hernesto pacemaker. No new focal lung consolidations. IMPRESSION: Cardiomegaly with mild congestive change and a trace right pleural effusion. ACT 112: Negative or not required by law. Electronically signed by: Neeraj Faith M.D. 10/04/2021 5:28 PM
[2021-10-04 17:31] LABS: Cast Urine Automated 0 /lpf (0-5); RBC Urine Automated >30 /hpf (0-4)
[2021-10-04 17:32] LABS: Bacteria Urine Automated 3+ (Negative)
[2021-10-04 17:44] LABS: Troponin I High Sensitivity 72.8 pg/ml (0-20)
[2021-10-04] MEDS ORDERED: OPTIRAY 320 100ml IV ONE (18:06)
--- NOTE | 2021-10-04 18:29 | CT Scan Report ---
ABDOMEN AND PELVIS CT WITH IV CONTRAST CT DOSE: 2533.28 mGy.cm HISTORY: low back pain TECHNIQUE: Multiaxial CT images of the abdomen and pelvis were performed following the use of intrave nous contrast. A dose lowering technique was utilized adhering to the principles of ALARA. COMPARISON STUDY: Abdomen and pelvis CT 08/08/2021. FINDINGS: Respiratory motion and mild dependent changes seen at the lung bases. Suboptimal evaluation of the abdomen and pelvis due to the mild motion artifact. There is a right total hip arthroplasty. Slight progressive loss of height at the L1 vertebroplasty. However, no definite acute fractures iden tified. There is an old distal sacral fracture again noted. Old, healed left posterior rib fractures. There is a healing right posterior T12 fracture which is new from the prior study. There are postste rnotomy changes and a pacemaker wire noted. The heart remains enlarged. Mild paravertebral edema at t he L1 vertebroplasty remains unchanged. Severe bladder wall thickening which is decompressed by a Fol ey catheter with adjacent fat stranding. This is similar to the prior study. Mild to moderate rectal wall thickening with perirectal fat stranding which has progressed. Mild fullness within the bilatera l renal collecting systems and ureters without oniel hydronephrosis. Mild bilateral perinephric edema which has slightly progressed. No retroperitoneal hematoma or lymphadenopathy. There is a left circu maortic renal vein.. Calcified plaque within the normal caliber abdominal aorta. Colonic diverticulos is. No evidence for acute diverticulitis. Evidence for prior bilateral inguinal hernia repair. No mavis dence for bowel obstruction. A few small gallstones. No gallbladder wall thickening. The liver, adren al glands, and residual pancreas appear unremarkable. Prior distal pancreatectomy and splenectomy. IMPRESSION: 1. Slight progressive loss of height at the L1 vertebroplasty. However, no definite fractures identif ied. There is no significant central canal narrowing at this level. 2. Healing right posterior 12th rib fracture which is new from the prior study. No acute fractures id entified. 3. Severe bladder wall thickening with adjacent fat stranding, unchanged. This could may represent a chronic cystitis. Recommend correlation with urinalysis. 4. Mild to moderate rectal wall thickening and perirectal fat stranding which has progressed. This li kathya represents a mild proctitis. 5. Mild fullness within the bilateral renal collecting systems/ureters without oniel hydronephrosis. No obstructing stones identified. There is also progressive mild perinephric edema. This could be chr onic or represent a superimposed pyelonephritis. Recommend correlation with urinalysis. 6. No evidence for bowel obstruction. 7. Normal appendix. 8. Colonic diverticulosis. No evidence for acute diverticulitis. ACT 112: Negative or not required by law. Electronically signed by: Neeraj Faith M.D. 10/04/2021 6:27 PM
--- NOTE | 2021-10-04 18:41 | CT Scan Report ---
HEAD CT NONCONTRAST CT DOSE: HISTORY: confusion TECHNIQUE: Multiaxial CT images of the head were performed without the use of intravenous contrast. A utomated exposure control was utilized for this study. A dose lowering technique was utilized adheri ng to the principles of ALARA. Comparison: None. Findings: The paranasal sinuses and mastoid air cells are clear. The calvarium and skull base are int act. There is no mass, hematoma, midline shift, acute infarct. White matter hypodensity is nonspecifi c but suggestive of microvascular ischemic change. The ventricles and sulci demonstrate mild age-rela clifford involutional changes. No change in the old right parietal/occipital infarct. Old bilateral basal ganglia lacunar infarcts are also unchanged. There is an old small right frontal lobe infarct, unchan ged. Impression: No significant change compared to the prior study. No acute intracranial abnormality. Old infarcts ag ain noted. ACT 112: Negative or not required by law. Electronically signed by: Neeraj Faith M.D. 10/04/2021 6:40 PM
[2021-10-04] MEDS ORDERED: ALBUTEROL HFA 8 GM INHALER INH PRN (21:56)
[2021-10-04] MEDS ORDERED: WARFARIN SOD 5 MG TAB PO ONE (21:56)
[2021-10-04] MEDS ORDERED: METOPROLOL TARTRATE 1 MG/ML VIAL IV PRN (21:56)
[2021-10-04] MEDS ORDERED: NITROGLYCERIN SL 0.4 MG/TAB TAB SL PRN ×2 (21:56)
[2021-10-04] MEDS ORDERED: GLUCOSE 10 TABS/TUBE PO PRN (22:30)
[2021-10-04] MEDS ORDERED: DEXTROSE 50% 50 ML SYRINGE IV PRN (22:30)
[2021-10-04] MEDS ORDERED: GLUCAGON FOR INJ 1 MG VIAL IM PRN (22:30)
[2021-10-04] MEDS ORDERED: GLUCOSE 40% GEL 15 GM TUBE PO PRN (22:30)
[2021-10-04] MEDS ORDERED: CARBOHYDRATES FOR HYPOGLYCEMIA PO PRN (22:30)
--- NOTE | 2021-10-04 22:38 | History and Physical Report ---
DATE OF ADMISSION: 10/04/2021. CHIEF COMPLAINT: Confusion, UTI. HISTORY OF PRESENT ILLNESS: This is an 86-year-old male with past medical history significant for diabetes, gout, hyperlipidemia, sick sinus node dysfunction, paroxysmal atrial fibrillation, status post pacemaker, hypertension, history of atrial flutter, history of chronic systolic CHF, cognitive disorder, Alzheimer disease, CAD status post stent, status post CABG, history of splenectomy, history of pancreatic cancer, history of intracranial hemorrhage, currently living at [facility], seems to be previously was living at [facility], history of multiple falls, staus post kyphoplasty and was in [facility] in the past and he had a Cherry now for some time. He recently was treated with Macrobid for UTI, but today when daughter visited him, he seemed more confused and there was pus coming from the Cherry catheter site, though his catheter was recently changed, and had low-grade fever. The patient was brought to the ER. In the ER, the Cherry was changed and based on previous cultures, MRSA in the urine and also Proteus in the urine, so he was given Rocephin and vancomycin. The patient also complains of severe back pain. He was given fentanyl and somewhat drowsy, but easily arousable. Denies any headache, denies neck pain. Currently, back pain is better. Denies any chest pain, no shortness of breath, no cough, no abdominal pain, no nausea, no vomiting. Daughter thinks he had one episode of diarrhea today, possibly from the antibiotics. As per daughter, he ambulates okay with a walker and he can eat and swallow okay and daughter requested to give some pain medication for his back pain because he has a history of chronic back problem. Currently, the patient is hemodynamically stable. ALLERGIES: SHELLFISH, PLAVIX, PENICILLINS. PAST MEDICAL HISTORY: As mentioned above. PAST SURGICAL HISTORY: CABG, stent placement, knee arthroscopy, laparoscopic pancreatectomy, tonsillectomy and adenoidectomy, inguinal hernia repair. MEDICATIONS: The patient is on Tylenol 650 mg p.o. q. 6 hours p.r.n., albuterol 2 puffs inhalation q. 6 hours p.r.n., amlodipine 5 mg p.o. daily, aspirin 81 mg p.o. a.m., atorvastatin 40 mg p.o. at bedtime, Lasix 40 mg p.o. a.m., isosorbide mononitrate 60 mg p.o. a.m., Lantus 12 units subcutaneous a.m., losartan 50 mg p.o. a.m., Nitrostat 0.4 mg sublingual p.r.n., Protonix 40 mg p.o. at bedtime, Senokot 2 tablets p.o. at bedtime, Flomax 0.4 mg p.o. at bedtime, warfarin 5 mg p.o. once a week 2.5 mg 6 times a week. FAMILY HISTORY: Significant for brother has diabetes, hypertension, heart disorder, eye problems. Father had CVA. Mother had hypertension and Alzheimer's. SOCIAL HISTORY: , currently living in [facility]. Former smoker. Alcohol, used to drink 3 or 4 bourbon or wine per week. No drug use. REVIEW OF SYSTEMS: As per HPI. Rest of the review of systems is negative. PHYSICAL EXAMINATION: GENERAL: The patient is moderate built, not in acute distress. VITAL SIGNS: Temperature 36.9, pulse 64, respiratory rate 24, blood pressure 112/59, oxygen 95% on room air. HEENT: Pupils equal, round and reactive to light. Oral mucosa moist. NECK: No JVD, no neck masses. CARDIOVASCULAR: S1 and S2 heard. Regular rate and rhythm. No murmur, no gallop. RESPIRATORY SYSTEM: Normal AP diameter. No accessory muscle use. No wheezing, no crackles. ABDOMEN: Soft, bowel sounds present, nontender, no distention. CENTRAL NERVOUS SYSTEM: Cranial nerves II-XII grossly intact, nonfocal. EXTREMITIES: Lower extremity, gross pedal edema present, no erythema seen. LABORATORY DATA: WBC 13.8, hemoglobin 9.6, hematocrit 29.4, platelets 227. PT 17.1, INR 1.6. Sodium 130, potassium 5, chloride 103, bicarb 19, BUN 42, creatinine 1.69, serum glucose 260. Lactate 1.5, calcium 8.7, total bilirubin 1, AST 13, ALT 8, alkaline phosphatase 98. Troponin I 7 2.8. Lipase 8. TSH 2.6. Urinalysis, +3 leukocyte esterase, positive for nitrite, +2 blood, +3 bacteria. SARS-CoV-2 rapid test negative. IMAGING DATA: Chest x-ray: Cardiomegaly with mild congestion with trace right pleural effusion. CT of the head, no significant change, no acute findings. CT of abdomen and pelvis with IV contrast, healing right posterior 12th rib fracture, which is new from prior study, no acute fractures identified. Slight progressive loss of the height of the L1 vertebroplasty; however, no definite fracture is identified. No significant central canal narrowing at this level. Severe bladder wall thickening with adjacent fat stranding, unchanged; this may represent a chronic cystitis. Recommend correlation with urinalysis. Mild to moderate rectal wall thickening and perirectal fat stranding, which has progressed and this likely represents a mild proctitis. Mild fullness within the bilateral renal collecting system and ureters without oniel hydronephrosis. No obstructing stones are identified. There is also progressive mild perinephric edema, this could represent superimposed pyelonephritis. No evidence of bowel obstruction, normal appendix, colonic diverticulosis, no evidence for acute diverticulitis. EKG: Ventricular paced rhythm with occasional PVCs at a rate of 65. ASSESSMENT AND PLAN: This is an 86-year-old male presents with confusion and urinary tract infection and pyelonephritis. 1. Confusion, most likely secondary to pyelonephritis and urinary tract infection, elevated white count: Based on previous cultures, vancomycin and Rocephin given. We will change Rocephin to cefepime. Follow the cultures. Closely monitor in the med tele. Cherry bag changed in the ER. Continue his Flomax. May need followup with urology for recurrent urinary tract infections. 2. Back pain, history of L1 kyphoplasty on 07/2021: We will place on Lidoderm patch and Tylenol and morphine p.r.n. 3. Atrial fibrillation, on Coumadin. INR subtherapeutic. We will give one dose of Coumadin 5 mg and continue home doses. Place on heparin subcutaneously until INR therapeutic. Seems to be on the last admission he was on metoprolol succinate, but this is not on the list.Called [facility] and they say he is not on the Toprol-XL. Will currently place on IV Lopressor p.r.n. If needed, we will restart his Toprol. 4. Diabetes: Continue his home insulin, place on sliding scale. Follow the blood sugars. 5. Hypertension. Continue his Norvasc, losartan, Imdur and Lasix. Currently metoprolol is not on medication list. We will place on IV Lopressor p.r.n. Monitor. 6. History of cognitive impairment: Monitor for any delirium. 7. Elevated troponin. Mostly demand ischemia. Will follow serial CE. 8. Deep venous thrombosis prophylaxis. INR is subtherapeutic at 1.6. We will place on heparin subcutaneously until INR is therapeutic. CODE STATUS: DNR/DNI as per discussion with the daughter. DISPOSITION: Admit to [facility]. PT/OT prior to discharge. Social service to help with discharge planning. Discharge back to [facility] when stable. We will also get Doppler of lower extremities because of bilateral lower extremity edema, probably from chronic systolic congestive heart failure, EF is 50% on recent echo. On Lasix, has lower extremity edema. We will monitor the volume status. Job ID: [id number] [facility]
[2021-10-04] MEDS: ATORVASTATIN 40 MG TAB PO SCH (23:01)
[2021-10-04] MEDS: TAMSULOSIN HCL 0.4 MG CAP PO SCH (23:02)
[2021-10-04] MEDS: PANTOprazole 40 MG TAB PO SCH (23:02)
[2021-10-04] MEDS: HEPARIN SOD 5,000 UNIT/0.5 ML VIAL SQ SCH (23:02)
[2021-10-04] MEDS: CEFEPIME 2,000 MG in SYRINGE 0 ML IV SCH (23:03)
[2021-10-04] MEDS: INSULIN ASPART PER UNIT SC SCH (23:16)
[2021-10-05 05:38] LABS: Basophils # (auto) 0.04 K/uL (0-0.2); Basophils % (auto) 0.3 %; Eosinophils # (auto) 0.44 K/uL (0-0.5); Eosinophils % (auto) 3.7 %; Hematocrit (blood only) 30.1 % (42-52); Hemoglobin 9.9 g/dL (14.0-18.0); Immature Granulocytes # (auto) 0.05 K/uL (0.00-0.02); Immature Granulocytes % (auto) 0.4 %; Lymphocytes # (auto) 1.72 K/uL (1.2-3.4); Lymphocytes % (auto) 14.3 %; Mean Corpuscular Hemoglobin 29.5 pg (25-34); Mean Corpuscular Hgb Conc 32.9 g/dL (32-36); Mean Corpuscular Volume 89.6 fL (80-100); Mean Platelet Volume 10.2 fL (7.4-10.4); Monocytes # (auto) 1.52 K/uL (0.11-0.59); Monocytes % (auto) 12.6 %; Neutrophils # (auto) 8.27 K/uL (1.4-6.5); Neutrophils % (auto) 68.7 %; Platelet Count 221 K/uL (130-400); RDW Coefficient of Variation 16.9 % (11.5-14.5); Red Blood Count 3.36 M/uL (4.7-6.1); White Blood Count 12.04 K/uL (4.8-10.8)
[2021-10-05 06:00] LABS: INR 1.8 (0.9-1.1); Prothrombin Time 18.1 Seconds (9.0-12.0)
[2021-10-05 06:08] LABS: BUN Creatinine Ratio 28.9 (10-20); Calcium 8.6 mg/dl (8.5-10.1); Creatinine Clr Calc Pharmacy 51.1 ml/min; Est GFR (African American) 67.1 ml/min; Est GFR (Non-African American) 57.9 ml/min; Magnesium 1.6 mg/dl (1.7-2.4); Potassium 4.1 mmol/L (3.5-5.1)
[2021-10-05 07:47] LABS: Estimated Average Glucose 212 mg/dl
[2021-10-05] MEDS ORDERED: VANCOMYCIN HCL 1,000 MG in SODIUM CHLORIDE 0.9% 250 ML IV SCH (08:00)
[2021-10-05] MEDS ORDERED: MoRPHine SULFATE 2 MG/ML CARP IV PRN (08:01)
--- NOTE | 2021-10-05 08:49 | Ultrasound Report ---
BILATERAL LOWER EXTREMITY VENOUS DOPPLER HISTORY: Acute pain and swelling of the lower legs b/l lower extremity edema. DVT? COMPARISON STUDY: None. FINDINGS: There is normal compressibility, flow, and augmentation within the bilateral lower extremit y deep venous systems. Subcutaneous edema. IMPRESSION: No DVT within the right or left lower extremity. ACT 112: Negative or not required by law. Electronically signed by: Elías Ferreira M.D. 10/05/2021 8:47 AM
[2021-10-05] MEDS ORDERED: MAGNESIUM OXIDE 400 MG TAB PO SCH (09:00)
[2021-10-05] MEDS: amLODIPine BESYLATE 5 MG TAB PO SCH (09:09)
[2021-10-05] MEDS: INSULIN ASPART PER UNIT SC SCH ×4 (09:09→20:42)
[2021-10-05] MEDS: ASPIRIN 81 MG ECTAB PO SCH (09:10)
[2021-10-05] MEDS: ISOSORBIDE MONO EXTENDED REL 60 MG TABCR PO SCH (09:10)
[2021-10-05] MEDS: SENNA 8.6 MG TAB PO PRN (09:10)
[2021-10-05] MEDS: FUROSEMIDE 40 MG TAB PO SCH (09:10)
[2021-10-05] MEDS: LOSARTAN POTASSIUM 50 MG TAB PO SCH (09:10)
[2021-10-05] MEDS: INSULIN GLARGINE SOLOSTAR 100 UNITS/ML 3 ML PEN SQ SCH (09:11)
[2021-10-05] MEDS: HEPARIN SOD 5,000 UNIT/0.5 ML VIAL SQ SCH ×2 (09:11→20:21)
[2021-10-05] MEDS: DAPTOmycin 500 MG in SYRINGE 0 ML IV SCH (09:18)
[2021-10-05] MEDS: MAGNESIUM OXIDE 400 MG TAB PO SCH ×2 (09:18→20:22)
[2021-10-05] MEDS: LIDOCAINE 5% 1 PATCH TD SCH (09:19)
--- NOTE | 2021-10-05 11:17 | Hospitalist Progress Note ---
Date of Service October 05, 2021 Assessment & Plan (1) Encephalopathy: (2) Acute UTI: Plan: ASSESSMENT AND PLAN: This is an 86-year-old male, with urinary retention on Cherry catheter, resident of [facility], presents with confusion and urinary tract infection and pyelonephritis. 1. Acute encephalopathy, most likely secondary to pyelonephritis and urinary tract infection, in the setting of chronic indwelling Cherry catheter Recurrent UTI CT abdomen pelvis: 1. Slight progressive loss of height at the L1 vertebroplasty. However, no definite fractures identified. There is no significant central canal narrowing at this level. 2. Healing right posterior 12th rib fracture which is new from the prior study. No acute fractures identified. 3. Severe bladder wall thickening with adjacent fat stranding, unchanged. This could may represent a chronic cystitis. Recommend correlation with urinalysis. 4. Mild to moderate rectal wall thickening and perirectal fat stranding which has progressed. This likely represents a mild proctitis. 5. Mild fullness within the bilateral renal collecting systems/ureters without oniel hydronephrosis. No obstructing stones identified. There is also progressive mild perinephric edema. This could be chronic or represent a superimposed pyelonephritis. Recommend correlation with urinalysis. 6. No evidence for bowel obstruction. 7. Normal appendix. 8. Colonic diverticulosis. No evidence for acute diverticulitis. CT head: No significant change compared to the prior study. No acute intracranial abnormality. 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 Based on previous urine cultures, patient has history of MRSA and Klebsiella UTI Mental status improved today, patient oriented x2-3, answers most questions appropriate Blood culture: Negative Urine culture: Gram-negative bacilli Continue daptomycin plus cefepime day #1 ID consulted for recurrent UTI Cherry catheter changed on admission 2. Back pain, history of L1 kyphoplasty on 07/2021: Reports mild lower back pain Continue Lidoderm patch and Tylenol as needed 3. Atrial fibrillation, on Coumadin. INR 1.8. Give Coumadin 5 mg today, then resume usual home dose of 2.5 mg daily except Wednesdays [address] on heparin subcutaneously until INR therapeutic. Per Dr. Richardson's notes: Seems to be on the last admission he was on metoprolol succinate, but this is not on the list.Called [facility] and they say he is not on the Toprol-XL. Will currently place on IV Lopressor p.r.n. If needed, we will restart his Toprol. 4. Diabetes: Continue Lantus 12 units daily, insulin sliding BSG 92 this morning Monitor closely 5. Hypertension. Continue his Norvasc, losartan, Imdur and Lasix. Currently metoprolol is not on medication list. IV Lopressor p.r.n. Monitor. 6. History of cognitive impairment Monitor for delirium 7. Elevated troponin likely from demand ischemia. Troponin trending down, from 72, now 51 EKG no signs of acute ischemia or infarct updated echo ordered No cardiac symptoms Patient also had mild troponin elevation during admission in June 2021 8. Deep venous thrombosis prophylaxis. INR 1.8 Coumadin plus heparin subcutaneousuntil INR is therapeutic. CODE STATUS: DNR/DNI as per Dr. Richardson's discussion with the daughter Disposition anticipate to return to [facility] when medically stable Admission and Anticipated Discharge Date Admission Date: October 04, 2021 Subjective ff up for encephalopathy, UTI, etc seen resting in bed, comfortable, sitting up awake, alert, oriented to person, place and year answers questions appropriately states he feels fine overall has mild lower back pain no abdominal pain, flank pain, fever/chills no chest pain, dyspnea, palpitations, dizziness no other symptoms Review of Systems Review of Systems: all noted and negative except for above Physical Exam Physical Exam: General- oriented x 2-3, not in distress, speaks in sentences with no effort or accessory muscle use Head- atraumatic Eyes- PERRL, EOMI, anicteric ENT- (+) mild thrush on the tongue Neck- supple, no JVD, no adenopathy, no thyromegaly; carotids +2/2, no bruits appreciated Lungs- clear to auscultation bilaterally, no rales/wheezes Heart- normal rate, regular rhythm; no murmur, no gallop, no rub appreciated Abdomen- normal bowel sounds, nondistended, soft, nontender, no masses or hepatosplenomegaly no CVA tenderness Cherry catheter- draining yellow urine Extremities- (+) trace BL pretibial edema, no calf tenderness; peripheral pulses intact Cherry catheter- draining yellow urine Neuro- alert, oriented x 2-3; CN 2-12 grossly intact; motor 5/5 bilaterally;sensation 100% on all extremities; no other gross focal neurologic deficits Skin- warm & dry Results & Data Results & Data ([facility]) Vital Signs (Past 12 Hours) Vital Signs Temp Pulse Pulse Resp BP Pulse Ox 10/05/21 10:40 66 10/05/21 07:54 37.0 C 61 16 135/70 94 10/05/21 03:13 37.1 C 66 20 129/64 97 all noted and reviewed including below
[2021-10-05] MEDS: NYSTATIN SUSP 500,000 U/5 ML UDC PO SCH ×3 (12:22→20:22)
--- NOTE | 2021-10-05 12:59 | Electrocardiogram Report ---
Test Reason : Blood Pressure : / mmHG Vent. Rate : 065 BPM Atrial Rate : 300 BPM P-R Int : 000 ms QRS Dur : 204 ms QT Int : 514 ms P-R-T Axes : 000 -77 083 degrees QTc Int : 534 ms Ventricular-paced rhythm with occasional Premature ventricular complexes Abnormal ECG When compared with ECG of 08-AUG-2021 15:21, Premature ventricular complexes are now Present Vent. rate has increased BY 4 BPM Confirmed by Chidi Eason ([id number]) on 10/05/2021 12:58:37 PM Referred By: [facility] Confirmed By:Jayson Eason
[2021-10-05] MEDS ORDERED: WARFARIN SOD 2.5 MG TAB PO ONE (16:00)
--- NOTE | 2021-10-05 16:13 | Urology Consultation ---
Date of Consultation October 05, 2021 Assessment & Plan (1) Acute UTI: (2) Chronic indwelling Camejo catheter: 86yo M admitted with confusion secondary to suspected UTI/Pyelo in the setting of indwelling camejo catheter - Plan of care reviewed with Dr. Turcios. - CTAP reviewed - Severe bladder wall thickening with adjacent fat stranding, Mild fullness within the bilateral renal collecting systems/ureters without oniel hydronephrosis, No obstructing stones identified, Progressive mild perine phric edema. - Afebrile, hemodynamically stable. - Labs reviewed - Wbc 12.04, Creatinine 1.14 - Urine culture prelim gram negative bacilli; Blood cultures prelim gram negative bacilli. - Continues on IV Cefepime and Daptomycin. ID consulted. - Camejo catheter removed today for voiding trial per nursing. Plan- - Monitor ability to spontaneously void. Bladder scan and straight cath prn. - Continue antibiotic therapy and tailor per culture sensitivities/ID recommendations. - Will arrange outpatient follow-up with our service. - Urology will sign-off. Thank for allowing us to participate in the acute care of Mr. Little. Please reconsult us with additional questions, concerns or changes in patient status. History of Present Illness Reason for Consultation: Urinary retention, recurrent UTI Attending Physician: Dhruv Blandon MD History of Present Illness 86yo M with a past medical history significant for diabetes, gout, hyperlipidemia, sick sinus node dysfunction, paroxysmal atrial fibrillation, status post pacemaker, hypertension, history of atrial flutter, history of chronic systolic CHF, cognitive disorder, Alzheimer disease, CAD status post stent, status post CABG, history of splenectomy, history of pancreatic cancer, history of intracranial hemorrhage, currently living at [facility] admitted with confusion and suspected UTI/Pyelo. Urology consulted for urinary retention, recurrent UTI. Per chart review, pt is s/p recent kyphoplasty (July 2021) and was at [facility] in [place]. He has had a Camejo catheter for a while now and had recently been treated for UTI with Macrobid, however was found to be more confused and his daughter noted pus coming from his catheter site, and therefore was brought to the ED for further evaluation. In the ER, the Camejo was changed and based on previous cultures, MRSA in the urine and also Proteus in the urine, he was given Rocephin and vancomycin and admitted for further management. CT abdomen pelvis- IMPRESSION: 1. Slight progressive loss of height at the L1 vertebroplasty. However, no definite fractures identified. There is no significant central canal narrowing at this level. 2. Healing right posterior 12th rib fracture which is new from the prior study. No acute fractures identified. 3. Severe bladder wall thickening with adjacent fat stranding, unchanged. This could may represent a chronic cystitis. Recommend correlation with urinalysis. 4. Mild to moderate rectal wall thickening and perirectal fat stranding which has progressed. This likely represents a mild proctitis. 5. Mild fullness within the bilateral renal collecting systems/ureters without oniel hydronephrosis. No obstructing stones identified. There is also progressive mild perinephric edema. This could be chronic or represent a superimposed pyelonephritis. Recommend correlation with urinalysis. 6. No evidence for bowel obstruction. 7. Normal appendix. 8. Colonic diverticulosis. No evidence for acute diverticulitis. Pt examined at bedside this afternoon. Awake, resting in bed on arrival. No acute distress. Reports feeling fine overall. Denies any pain or discomfort at present. Reports his catheter was just removed, has not yet voided. Pt denies urinary issues or concerns at baseline. Per nursing, patients daughter reported that the patient was to have a voiding trail while in rehab, but this did not happen, and therefore, requested a voiding trial today. Nursing removed the catheter today at approx 1445. Denies hx of urological issues or concerns. Denies pertinent family hx. Pt has seen Dr. Mayes in the past in 2012. Offered no additional complaints or concerns at time of exam. Allergies Allergy/AdvReac Type Severity Reaction Status Date / Time shellfish derived Allergy Severe anaphylaxis Verified 10/04/21 16:25 clopidogrel Allergy Intermediate INTERNAL Verified 10/04/21 16:25 HIVES Penicillins Allergy Intermediate HIVES Verified 10/04/21 16:29 Home Medications Medication Instructions Recorded Confirmed Type nitroglycerin 0.4 mg sublingual 0.4 mg SUBLINGUAL UD PRN 09/04/18 10/04/21 History tablet (Nitrostat) acetaminophen 325 mg tablet 650 mg PO Q6H PRN #60 tab MDD 3 08/21/21 10/04/21 Rx (Tylenol) GRAMS/24 HOURS albuterol sulfate 90 mcg/actuation 2 puff INHALATION Q6H PRN #6.7 g 08/21/21 10/04/21 Rx aerosol inhaler amlodipine 5 mg tablet 5 mg PO DAILY #30 tab 08/21/21 10/04/21 Rx aspirin 81 mg tablet,delayed 81 mg PO QAM #30 tab 08/21/21 10/04/21 Rx release insulin glargine 100 unit/mL (3 12 unit SUBCUT QAM #3 box 08/21/21 10/04/21 Rx mL) subcutaneous pen (Lantus Solostar U-100 Insulin) isosorbide mononitrate 60 mg 60 mg PO QAM #30 tab 08/21/21 10/04/21 Rx tablet,extended release 24 hr losartan 50 mg tablet 50 mg PO QAM #30 tab 08/21/21 10/04/21 Rx sennosides 8.6 mg tablet (Senokot) 8.6 - 17.2 mg PO HS PRN #30 tab 08/21/21 Rx tamsulosin 0.4 mg capsule 0.4 mg PO HS #30 cap 08/21/21 10/04/21 Rx Qc Antacid Tabs 750 mg PO TID PRN 09/04/21 10/04/21 History atorvastatin 40 mg tablet 40 mg PO HS 09/04/21 10/04/21 History furosemide 40 mg tablet 40 mg PO QAM 09/04/21 10/04/21 History pantoprazole 40 mg tablet,delayed 40 mg PO HS 09/04/21 10/04/21 History release warfarin 5 mg tablet 5 mg PO WK 09/04/21 10/04/21 History warfarin 2.5 mg tablet (Jantoven) 2.5 mg PO 6XWK 10/04/21 10/04/21 History Patient History Medical History (Updated 10/05/21 @ 11:05 by Dhruv Blandon MD) ACS (acute coronary syndrome) CAD (coronary artery disease) Chronic anticoagulation DM type 2 (diabetes mellitus, type 2) Dyslipidemia Dyspnea on exertion Gout History of cerebral hemorrhage HTN (hypertension) Pacemaker Pancreatic cancer Paroxysmal atrial fibrillation Sinus node dysfunction SSS (sick sinus syndrome) Surgical History H/O arthroscopic knee surgery H/O colonoscopy H/O esophagogastroduodenoscopy H/O inguinal hernia repair History of pancreatectomy "07/15/2010 [place]. [place] [facility] S/P CABG x 1 S/P coronary artery stent placement "03/29/03 cardiac cath: RCA - stent of 90% lesion, L circ obtuse kenneth - stent of 80% lesion " S/P splenectomy S/P tonsillectomy and adenoidectomy Family History Other Family history non-contributory Social History Smoking Status: Former smoker Tobacco Type: Cigarettes Hx Alcohol Use: No Hx Substance Use: No Preferred Language: Yi Communication Ability: Effective Data Base Administrator Required: No Beliefs That Will Affect Care: None marital status: / Current Living Situation: Snf Current Living Situation Comment: Assisted living current occupational status: retired How many Children do You have: 2 Feels Safe at Home: Yes Safety Concerns: Feels Safe At This Time Assistive Devices: Walker Review of Systems Review of Systems: All systems reviewed & are unremarkable except as noted in HPI & below Physical Exam Constitutional: cooperative and comfortable; no acute distress Neck: normal visual inspection Respiratory: normal respiratory effort and able to speak in complete sentences; no labored breathing and no audible wheezes Cardiovascular: Extremities: no calf tenderness Gastrointestinal (Abdomen): Inspection/Auscultation: abdomen normal to inspection; abdomen not distended Percussion/Palpation: abdomen soft; abdomen nontender Musculoskeletal: Head/Neck/Chest: normocephalic Skin: No visible rashes or lesions to exposed skin areas Neurologic: awake Psychiatric: Orientation: alert and oriented to person Genitourinary: no CVA tenderness Results & Data ([facility]) Vital Signs (Past 12 Hours) Vital Signs Temp Pulse Pulse Resp BP Pulse Ox 10/05/21 16:07 36.5 C 64 16 133/65 93 10/05/21 11:26 36.8 C 60 16 113/55 L 93 10/05/21 10:40 66 10/05/21 07:54 37.0 C 61 16 135/70 94 PG Care Time/CCT Total # of Minutes Spent Total Time Spent with Patient: Total time spent is greater than 50% in coordination of care (as documented) at patient's floor/unit and/or counseling patient: Coding Level of Care Code 75616 Initial Inpt Care Lvl 2 Diagnoses Acute UTI N39.0 Chronic indwelling Camejo catheter Z97.8
[2021-10-05] MEDS: WARFARIN SOD 2.5 MG TAB PO SCH (17:01)
[2021-10-05] MEDS: PANTOprazole 40 MG TAB PO SCH (20:23)
[2021-10-05] MEDS: TAMSULOSIN HCL 0.4 MG CAP PO SCH (20:23)
[2021-10-05] MEDS: CEFEPIME 2,000 MG in SYRINGE 0 ML IV SCH (22:25)
[2021-10-06] MEDS: ADVANCED PROBIOTIC 1250 MG CAPSULE PO SCH (07:30)
[2021-10-06] MEDS: FUROSEMIDE 40 MG TAB PO SCH (07:30)
[2021-10-06] MEDS: SENNA 8.6 MG TAB PO PRN (07:30)
[2021-10-06] MEDS: ISOSORBIDE MONO EXTENDED REL 60 MG TABCR PO SCH (07:30)
[2021-10-06] MEDS: MAGNESIUM OXIDE 400 MG TAB PO SCH ×2 (07:31→20:44)
[2021-10-06] MEDS: LOSARTAN POTASSIUM 50 MG TAB PO SCH (07:31)
[2021-10-06] MEDS: amLODIPine BESYLATE 5 MG TAB PO SCH (07:31)
[2021-10-06] MEDS: ASPIRIN 81 MG ECTAB PO SCH (07:31)
[2021-10-06] MEDS: NYSTATIN SUSP 500,000 U/5 ML UDC PO SCH ×4 (07:31→20:44)
[2021-10-06] MEDS: LIDOCAINE 5% 1 PATCH TD SCH (07:32)
[2021-10-06] MEDS: HEPARIN SOD 5,000 UNIT/0.5 ML VIAL SQ SCH (07:34)
[2021-10-06] MEDS: INSULIN ASPART PER UNIT SC SCH ×4 (08:32→20:44)
[2021-10-06] MEDS: INSULIN GLARGINE SOLOSTAR 100 UNITS/ML 3 ML PEN SQ SCH (08:35)
[2021-10-06] MEDS: DAPTOmycin 500 MG in SYRINGE 0 ML IV SCH (08:36)
[2021-10-06 08:48] LABS: Basophils # (auto) 0.04 K/uL (0-0.2); Basophils % (auto) 0.3 %; Eosinophils % (auto) 2.6 %; Hematocrit (blood only) 32.1 % (42-52); Hemoglobin 10.4 g/dL (14.0-18.0); Immature Granulocytes # (auto) 0.05 K/uL (0.00-0.02); Immature Granulocytes % (auto) 0.4 %; Lymphocytes # (auto) 2.37 K/uL (1.2-3.4); Lymphocytes % (auto) 20.3 %; Mean Corpuscular Hemoglobin 29.1 pg (25-34); Mean Corpuscular Hgb Conc 32.4 g/dL (32-36); Mean Corpuscular Volume 89.7 fL (80-100); Mean Platelet Volume 10.4 fL (7.4-10.4); Monocytes % (auto) 12.8 %; Neutrophils # (auto) 7.44 K/uL (1.4-6.5); Neutrophils % (auto) 63.6 %; Platelet Count 238 K/uL (130-400); RDW Coefficient of Variation 16.9 % (11.5-14.5); Red Blood Count 3.58 M/uL (4.7-6.1)
[2021-10-06 08:59] LABS: INR 2.1 (0.9-1.1); Prothrombin Time 21.1 Seconds (9.0-12.0)
[2021-10-06 09:17] LABS: BUN Creatinine Ratio 25.6 (10-20); Calcium 8.5 mg/dl (8.5-10.1); Creatinine Clr Calc Pharmacy 49.7 ml/min; Est GFR (Non-African American) 56.1 ml/min
[2021-10-06] MEDS: WARFARIN SOD 2.5 MG TAB PO SCH (16:53)
--- NOTE | 2021-10-06 20:01 | Hospitalist Progress Note ---
Date of Service October 06, 2021 Assessment & Plan (1) Acute UTI: Plan: ASSESSMENT AND PLAN: This is an 86-year-old male, with urinary retention on Camejo catheter, resident of [facility], presents with confusion and urinary tract infection and pyelonephritis. 1. Acute metabolic encephalopathy, most likely secondary to urinary tract infection, in the setting of chronic indwelling Camejo catheter Recurrent CAUTI. Persistent urinary retention is present. Urology will weigh in on this in am. He continues on Flomax. Cont cefepime/stopped Daptomycin. He is clinically improving on therapy. Camejo was replaced and family given guidance on daily camejo care and changing camejo every 30 days, which they report was not likely happening at his current facility. 2. Gram negative bacteremia 2/2 CAUTI-cont cefepime pending further abx recs from ID 3. CAUTI-cont cefepime. Camejo catheter replaced today (10/06) 4. Back pain, history of L1 kyphoplasty on 07/2021: Reports mild lower back pain which is chronic. Know h/o burst fracture with conservative management back in May. There are no focal neurologic deficits at this time. Continue Lidoderm patch and Tylenol as needed 5. Atrial fibrillation, on Coumadin. Give Coumadin 5 mg today, then resume usual home dose of 2.5 mg daily except Wednesdays [address] on heparin subcutaneously until INR therapeutic. Per Dr. Richardson's notes: Seems to be on the last admission he was on metoprolol succinate, but this is not on the list.Called [facility] and they say he is not on the Toprol-XL. Will currently place on IV Lopressor p.r.n. If needed, we will restart his Toprol. 6. Diabetes: chronic, controlled. Cont current basal bolus dosing of insulin. 7. Hypertension.chronic, controlled. Continue his Norvasc, losartan, Imdur and Lasix. Currently metoprolol is not on medication list. HR is stable, removed PRN Lopressor from treatment options. 8. History of cognitive impairment Monitor for delirium 9. Elevated troponin likely from demand ischemia. Troponin trending down, from 72, now 51 EKG no signs of acute ischemia or infarct updated echo ordered No cardiac symptoms Patient also had mild troponin elevation during admission in June 2021 9. Deep venous thrombosis prophylaxis. INR 1.8 Coumadin plus heparin subcutaneous until INR is therapeutic. CODE STATUS: DNR/DNI Disposition anticipate to return to [facility] when medically stable (2) Metabolic encephalopathy: (3) Catheter-associated urinary tract infection: Admission and Anticipated Discharge Date Admission Date: October 04, 2021 Subjective 86-year-old man presents with catheter associated UTI and confusion Son is at bedside and reports patient looks improved. Afebrile overnight with Proteus growing in urine and Gram-negative bacilli growing in 1 of 4 blood cultures. Patient failed a trial of void with multiple straight cath requirements overnight and will now be placed back on Camejo catheter I spoke with daughter Aurelia on the phone who is a PA. We discussed the entire history and that urology will see patient again in a.m. and discuss a long-term follow-up plan post infectious treatment Daughter understands there is limitations to what urology can do in the setting of an acute infection All questions answered and patient and family felt better with this plan Patient denies any pain or other issues at this time Review of Systems Review of Systems: All systems reviewed negative except as indicated above Physical Exam Physical Exam: CONSTITUTIONAL: WNWD, vitals as above, generally well- appearing, NAD EYES: normal conjunctivae, no scleral icterus ENT: external ear and nose normal NECK: trachea midline RESPIRATORY: clear to auscultation bilaterally, no crackles, rales or wheezes, normal respiratory effort CARDIOVASCULAR: regular rate and rhythm, S1 and 2 heard without murmurs, gallops or rubs, no JVD, no peripheral edema CHEST: inspection of chest was normal GASTROINTESTINAL: soft, nontender, ND, no guarding MUSCULOSKELETAL: strength 5/5 throughout, head is normocephalic and atraumatic SKIN: warm and dry NEUROLOGIC: CN 2-12 grossly intact, no sensory deficit, normal cognition, normal speech, no tremor PSYCHIATRIC: alert cooperative and oriented to person, place and time. Results & Data Results & Data ([facility]) Vital Signs (Past 12 Hours) Vital Signs Temp Pulse Resp BP BP Pulse Ox 10/06/21 19:00 36.2 C L 75 20 139/56 L 93 10/06/21 15:11 36.5 C 60 18 118/52 L 96 10/06/21 11:14 36.6 C 60 18 105/60 95 10/06/21 07:55 36.9 C 65 18 136/63 93 Laboratory Results Short CBC 10/06/21 Range/Units 08:10 WBC 11.70 H (4.8-10.8) K/uL Hgb 10.4 L (14.0-18.0) g/dL Hct 32.1 L (42-52) % Plt Count 238 (130-400) K/uL BMP 10/06/21 08:10 Sodium 134 L Potassium 4.0 Chloride 103 Carbon Dioxide 22 BUN 30 H Creatinine 1.17 Glucose 120 H Calcium 8.5 Medications Administered Current Inpatient Medications Acetaminophen (Acetaminophen 325 Mg Tab) 650 mg PO Q4H PRN PRN Reason: Pain or Fever Stop: 11/03/21 21:55 Albuterol (Albuterol Hfa 8 Gm Inhaler) 2 puffs INH Q6H PRN PRN Reason: Wheezing Stop: 11/03/21 21:55 Amlodipine Besylate (Amlodipine Besylate 5 Mg Tab) 5 mg PO DAILY CL[facility]IS[facility] Stop: 11/04/21 08:59 Last Admin: 10/06/21 07:31 Dose: 5 mg Documented by: Aspirin (Aspirin 81 Mg Ectab) 81 mg PO QAM CL[facility]ISSA Stop: 11/04/21 08:59 Last Admin: 10/06/21 07:31 Dose: 81 mg Documented by: Atorvastatin Calcium (Atorvastatin 40 Mg Tab) 40 mg PO HS [facility] Stop: 11/03/21 21:55 Last Admin: 10/04/21 23:01 Dose: 40 mg Documented by: Dextrose (Dextrose 50% 50 Ml Syringe) 25 - 50 ml IV UD PRN; Protocol PRN Reason: Hypoglycemia Protocol Stop: 11/03/21 22:29 Furosemide (Furosemide 40 Mg Tab) 40 mg PO QAM [facility] Stop: 11/04/21 08:59 Last Admin: 10/06/21 07:30 Dose: 40 mg Documented by: Glucagon (Glucagon For Inj 1 Mg Vial) 1 mg IM UD PRN; Protocol PRN Reason: Hypoglycemia Protocol Stop: 11/03/21 22:29 Glucose (Glucose 40% Gel 15 Gm Tube) 15 - 30 gm PO UD PRN; Protocol PRN Reason: Hypoglycemia Protocol Stop: 11/03/21 22:29 Glucose (Glucose 10 Tabs/Tube) 4 - 8 tabs PO UD PRN; Protocol PRN Reason: Hypoglycemia Protocol Stop: 11/03/21 22:29 Cefepime HCl 2,000 mg/ Syringe 20 mls @ 5 mls/min IV Q24H [facility]; Protocol Stop: 10/14/21 22:59 Last Admin: 10/05/21 22:25 Dose: 5 mls/min Documented by: Insulin Aspart (Insulin Aspart Per Unit) 0 units SC ACHS [facility] Stop: 11/03/21 21:55 Last Admin: 10/06/21 17:20 Dose: Not Given Documented by: Insulin Glargine (Insulin Glargine Solostar 100 Units/Ml 3 Ml Pen) 12 units SQ QAM [facility] Stop: 11/04/21 08:59 Last Admin: 10/06/21 08:35 Dose: 12 units Documented by: Isosorbide Mononitrate (Isosorbide [place] Extended Rel 60 Mg Tabcr) 60 mg PO QAM [facility] Stop: 11/04/21 08:59 Last Admin: 10/06/21 07:30 Dose: 60 mg Documented by: Lactobacillus Acidophilus (Advanced Probiotic 1250 Mg Capsule) 2 cap PO DAILY [facility] Stop: 11/05/21 08:59 Last Admin: 10/06/21 07:30 Dose: 2 cap Documented by: Lidocaine (Lidocaine 5% 1 Patch) 1 patch TD QAM [facility] Stop: 11/04/21 08:59 Last Admin: 10/06/21 07:32 Dose: 1 patch Documented by: Losartan Potassium (Losartan Potassium 50 Mg Tab) 50 mg PO QAM [facility] Stop: 11/04/21 08:59 Last Admin: 10/06/21 07:31 Dose: 50 mg Documented by: Magnesium Oxide (Magnesium Oxide 400 Mg Tab) 400 mg PO BID [facility] Stop: 11/04/21 08:59 Last Admin: 10/06/21 07:31 Dose: 400 mg Documented by: Metoprolol Tartrate (Metoprolol Tartrate 1 Mg/Ml Vial) 5 mg IV Q6 PRN PRN Reason: Tachycardia Stop: 11/03/21 21:55 Miscellaneous (Carbohydrates For Hypoglycemia ) 15 - 30 gm PO UD PRN PRN Reason: Hypoglycemia Treatment Stop: 11/03/21 22:29 Miscellaneous (Remove Lidoderm Patch) 1 ea N/A DAILY@2100 [facility] Stop: 11/04/21 20:59 Last Admin: 10/05/21 20:43 Dose: 1 ea Documented by: Morphine Sulfate (Morphine Sulfate 2 Mg/Ml Carp) 2 mg IV Q3H PRN PRN Reason: Pain Stop: 10/19/21 08:00 Nitroglycerin (Nitroglycerin Sl 0.4 Mg/Tab Tab) 0.4 mg SL UD PRN PRN Reason: Chest Pain Stop: 11/03/21 21:55 Nystatin (Nystatin Susp 500,000 U/5 Ml Udc) 5 ml PO QID [facility] Stop: 10/15/21 12:59 Last Admin: 10/06/21 16:54 Dose: 5 ml Documented by: Pantoprazole Sodium (Pantoprazole 40 Mg Tab) 40 mg PO HS [facility] Stop: 11/03/21 21:55 Last Admin: 10/05/21 20:23 Dose: 40 mg Documented by: Sennosides (Senna 8.6 Mg Tab) 17.2 mg PO HS PRN PRN Reason: Constipation Stop: 11/03/21 21:55 Last Admin: 10/06/21 07:30 Dose: 17.2 mg Documented by: Tamsulosin HCl (Tamsulosin Hcl 0.4 Mg Cap) 0.4 mg PO [facility] Stop: 11/03/21 21:55 Last Admin: 10/05/21 20:23 Dose: 0.4 mg Documented by: Warfarin Sodium (Warfarin Sod 2.5 Mg Tab) 2.5 mg PO PopTuThSa@1700 [facility] Stop: 11/04/21 16:59 Last Admin: 10/06/21 16:53 Dose: 2.5 mg Documented by: Warfarin Sodium (Warfarin Sod 5 Mg Tab) 5 mg PO We@1700 [facility] Stop: 11/06/21 16:59
[2021-10-06] MEDS: PANTOprazole 40 MG TAB PO SCH (20:44)
[2021-10-06] MEDS: TAMSULOSIN HCL 0.4 MG CAP PO SCH (20:44)
[2021-10-06] MEDS: CEFEPIME 2,000 MG in SYRINGE 0 ML IV SCH (23:13)
--- NOTE | 2021-10-07 07:56 | Urology Progress Note ---
Date of Service October 07, 2021 Assessment & Plan (1) Acute UTI: (2) Acute urinary retention: Plan: 86yo M admitted with acute metabolic encephalopathy likely secondary to UTI in the setting of indwelling Camejo catheter. - Afebrile, hemodynamically stable. - Labs from 10/06 reviewed - Wbc 11.70, Creatinine 1.17 - UCx 10/04 with proteus; BCx 10/04 prelim with proteus in 1/2 tubes, repeat BCX 10/06 preliminary NGTD. - Pt had voiding trial on 10/05, but required replacement of Camejo catheter 10/06 due to persistent urinary retention. - Camejo catheter currently intact, draining cloudy yellow urine. Plan- - Maintain Camejo catheter for maximum drainage of urinary tract while treating infection. - Continue antibiotic therapy and tailor per culture sensitivities/ID recommendations. - Discussed with patient/daughter potential causes of urinary retention including obstruction and/or bladder inefficiency. - Discussed recommendation for further work-up with cystoscopy as an outpatient after treatment of infection. - Patient/daughter agreeable to plan. All questions were answered. - Will arrange outpatient follow-up for cystoscopy and possible voiding trial with urology service. Admission and Anticipated Discharge Date Admission Date: October 04, 2021 Supervising Physician Co-Signing Physician Notes Discussed patient with [facility]. Agree with plan. Maintain camejo upon discharge. Patient needs outpatient evaluation to determine cause of retention. Subjective Pt examined at bedside this AM. Awake, resting in bed on arrival. No acute distress. Denies fever or chills. Denies any pain or discomfort at present. Camejo catheter intact, draining cloudy yellow urine. Nursing noted purulent drainage around cath insertion site. Review of Systems Constitutional: as per Subjective / HPI Genitourinary: + as per Subjective / HPI Physical Exam Constitutional: no acute distress Respiratory: no respiratory distress and no labored breathing Gastrointestinal (Abdomen): Inspection/Auscultation: abdomen normal to inspection Neurologic: awake Psychiatric: Orientation: alert, oriented to person and cooperative Genitourinary: Camejo catheter intact, draining cloudy yellow urine No drainage noted around cath insertion site at time of exam Results & Data ([facility]) Vital Signs (Past 12 Hours) Vital Signs Temp Pulse Pulse Resp BP Pulse Ox 10/07/21 07:17 36.8 C 60 18 125/73 93 05/18/22 03:00 36.6 C 63 20 172/82 H 94 10/06/21 23:58 68 10/06/21 22:00 36.7 C 63 20 130/58 L 92 PG Care Time/CCT Total # of Minutes Spent Total Time Spent with Patient: Total time spent is greater than 50% in coordination of care (as documented) at patient's floor/unit and/or counseling patient: Coding Level of Care Code 82834 Subseq Hosp Care Lvl 2 Diagnoses Acute urinary retention R33.8 Acute UTI N39.0
[2021-10-07] MEDS: NYSTATIN SUSP 500,000 U/5 ML UDC PO SCH ×4 (08:39→20:18)
[2021-10-07] MEDS: MAGNESIUM OXIDE 400 MG TAB PO SCH ×2 (08:39→20:18)
[2021-10-07] MEDS: ASPIRIN 81 MG ECTAB PO SCH (08:39)
[2021-10-07] MEDS: ISOSORBIDE MONO EXTENDED REL 60 MG TABCR PO SCH (08:39)
[2021-10-07] MEDS: LIDOCAINE 5% 1 PATCH TD SCH (08:39)
[2021-10-07] MEDS: LOSARTAN POTASSIUM 50 MG TAB PO SCH (08:39)
[2021-10-07] MEDS: ADVANCED PROBIOTIC 1250 MG CAPSULE PO SCH (08:39)
[2021-10-07] MEDS: amLODIPine BESYLATE 5 MG TAB PO SCH (08:40)
[2021-10-07] MEDS: FUROSEMIDE 40 MG TAB PO SCH (08:40)
[2021-10-07] MEDS: INSULIN GLARGINE SOLOSTAR 100 UNITS/ML 3 ML PEN SQ SCH (08:41)
[2021-10-07] MEDS: INSULIN ASPART PER UNIT SC SCH ×4 (08:44→21:06)
[2021-10-07 08:52] LABS: INR 2.3 (0.9-1.1); Prothrombin Time 23.3 Seconds (9.0-12.0)
[2021-10-07] MEDS: ACETAMINOPHEN 325 MG TAB PO PRN (09:26)
--- NOTE | 2021-10-07 15:21 | Hospitalist Progress Note ---
Date of Service October 07, 2021 Assessment & Plan (1) Acute UTI: Plan: ASSESSMENT AND PLAN: This is an 86-year-old male, with urinary retention on Camejo catheter, resident of [facility], presents with confusion and urinary tract infection. 1. Acute metabolic encephalopathy, most likely secondary to urinary tract infection, in the setting of chronic indwelling Camejo catheter Recurrent CAUTI. Persistent urinary retention is present. Urology will weigh in on this in am. He continues on Flomax. Cont cefepime/stopped Daptomycin. He is clinically improving on therapy but now was noted to have pus coming from urethra. Culture is pending. New camejo is in place and patient/patient's family has touched base with Urology regarding the plan. 2. Gram negative bacteremia 2/2 CAUTI-cont cefepime pending further abx recs from ID 3. CAUTI-cont cefepime. Camejo catheter replaced (10/06) 4. Back pain, history of L1 kyphoplasty on 07/2021: Reports mild lower back pain which is chronic. Know h/o burst fracture with conservative management back in May. There are no focal neurologic deficits at this time. Continue Lidoderm patch and Tylenol as needed 5. Atrial fibrillation, on Coumadin. Give Coumadin 5 mg today, then resume usual home dose of 2.5 mg daily except Wednesdays [address] on heparin subcutaneously until INR therapeutic. Per Dr. Richardson's notes: Seems to be on the last admission he was on metoprolol succinate, but [facility]. HR has been normal, cont current medical therapy.. 6. Diabetes: chronic, controlled. Cont current basal bolus dosing of insulin. 7. Hypertension.chronic, controlled. Continue his Norvasc, losartan, Imdur and Lasix. Currently metoprolol is not on medication list. HR is stable, removed PRN Lopressor from treatment options. 8. History of cognitive impairment Monitor for delirium 9. Elevated troponin likely from demand ischemia. Troponin trending down, from 72, now 51 EKG no signs of acute ischemia or infarct updated echo ordered No cardiac symptoms Patient also had mild troponin elevation during admission in June 2021 9. Deep venous thrombosis prophylaxis. INR 2.3, cont coumadin. CODE STATUS: DNR/DNI Disposition anticipate to return to [facility] when medically stable [facility] (2) Metabolic encephalopathy: (3) Catheter-associated urinary tract infection: Admission and Anticipated Discharge Date Admission Date: October 04, 2021 Subjective 86 yo M with CAUTI and Proteus bacteremia confusion has resolved and he is mentating at baseline denies pain nurse reports some pus/drainage coming from the urethra around the catheter site. Culture was sent for this. Denies abdominal pain and he is eating. Afebrile. Review of Systems Review of Systems: All systems were reviewed and negative except as indicated in subjective above. Physical Exam Physical Exam: CONSTITUTIONAL: WNWD, vitals as above, generally well- appearing, NAD EYES: normal conjunctivae, no scleral icterus ENT: external ear and nose normal NECK: trachea midline RESPIRATORY: clear to auscultation bilaterally, no crackles, rales or wheezes, normal respiratory effort CARDIOVASCULAR: regular rate and rhythm, S1 and 2 heard without murmurs, gallops or rubs, no JVD, no peripheral edema CHEST: inspection of chest was normal GASTROINTESTINAL: soft, nontender, ND, no guarding MUSCULOSKELETAL: strength 5/5 throughout, head is normocephalic and atraumatic SKIN: warm and dry NEUROLOGIC: CN 2-12 grossly intact, no sensory deficit, normal cognition, normal speech, no tremor PSYCHIATRIC: alert cooperative and oriented to person, place and time. Results & Data Results & Data ([facility]) Vital Signs (Past 12 Hours) Vital Signs Temp Pulse Resp BP BP Pulse Ox 10/07/21 11:03 64 18 122/60 95 10/07/21 07:17 36.8 C 60 18 125/73 93 Medications Administered Current Inpatient Medications Acetaminophen (Acetaminophen 325 Mg Tab) 650 mg PO Q4H PRN PRN Reason: Pain or Fever Stop: 11/03/21 21:55 Last Admin: 10/07/21 09:26 Dose: 650 mg Documented by: Albuterol (Albuterol Hfa 8 Gm Inhaler) 2 puffs INH Q6H PRN PRN Reason: Wheezing Stop: 11/03/21 21:55 Amlodipine Besylate (Amlodipine Besylate 5 Mg Tab) 5 mg PO DAILY [facility] Stop: 11/04/21 08:59 Last Admin: 10/07/21 08:40 Dose: 5 mg Documented by: Aspirin (Aspirin 81 Mg Ectab) [facility] [place] Stop: 11/04/21 08:59 Last Admin: 10/07/21 08:39 Dose: 81 mg Documented by: Atorvastatin Calcium (Atorvastatin 40 Mg Tab) 40 mg PO HS [facility] Stop: 11/03/21 21:55 Last Admin: 10/04/21 23:01 Dose: 40 mg Documented by: Dextrose (Dextrose 50% 50 Ml Syringe) 25 - 50 ml IV UD PRN; Protocol PRN Reason: Hypoglycemia Protocol Stop: 11/03/21 22:29 Furosemide (Furosemide 40 Mg Tab) 40 [facility] [place] Stop: 11/04/21 08:59 Last Admin: 10/07/21 08:40 Dose: 40 mg Documented by: Glucagon (Glucagon For Inj 1 Mg Vial) 1 mg IM UD PRN; Protocol PRN Reason: Hypoglycemia Protocol Stop: 11/03/21 22:29 Glucose (Glucose 40% Gel 15 Gm Tube) 15 - 30 gm PO UD PRN; Protocol PRN Reason: Hypoglycemia Protocol Stop: 11/03/21 22:29 Glucose (Glucose 10 Tabs/Tube) 4 - 8 tabs PO UD PRN; Protocol PRN Reason: Hypoglycemia Protocol Stop: 11/03/21 22:29 Cefepime HCl 2,000 mg/ Syringe 20 mls @ 5 mls/min IV Q24H [facility]; Protocol Stop: 10/14/21 22:59 Last Admin: 10/06/21 23:13 Dose: 5 mls/min Documented by: Insulin Aspart (Insulin Aspart Per Unit) 0 units SC ACHS [facility] Stop: 11/03/21 21:55 Last Admin: 10/07/21 12:11 Dose: 5 units Documented by: Insulin Glargine (Insulin Glargine Solostar 100 Units/Ml 3 Ml Pen) [address] [facility] Stop: 11/04/21 08:59 Last Admin: 10/07/21 08:41 Dose: 12 units Documented by: Isosorbide Mononitrate (Isosorbide [place] Extended Rel 60 Mg Tabcr) [address] [facility] Stop: 11/04/21 08:59 Last Admin: 10/07/21 08:39 Dose: 60 mg Documented by: Lactobacillus Acidophilus (Advanced Probiotic 1250 Mg Capsule) 2 cap PO DAILY [facility] Stop: 11/05/21 08:59 Last Admin: 10/07/21 08:39 Dose: 2 cap Documented by: Lidocaine (Lidocaine 5% 1 Patch) 1 patch TD QAM [facility] Stop: 11/04/21 08:59 Last Admin: 10/07/21 08:39 Dose: 1 patch Documented by: Losartan Potassium (Losartan Potassium 50 Mg Tab) 50 mg PO QAM [facility] Stop: 11/04/21 08:59 Last Admin: 10/07/21 08:39 Dose: 50 mg Documented by: Magnesium Oxide (Magnesium Oxide 400 Mg Tab) 400 mg PO BID [facility] Stop: 11/04/21 08:59 Last Admin: 10/07/21 08:39 Dose: 400 mg Documented by: Miscellaneous (Carbohydrates For Hypoglycemia ) 15 - 30 gm PO UD PRN PRN Reason: Hypoglycemia Treatment Stop: 11/03/21 22:29 Miscellaneous (Remove Lidoderm Patch) 1 ea N/A DAILY@2100 [facility] Stop: 11/04/21 20:59 Last Admin: 10/06/21 20:45 Dose: 1 ea Documented by: Nitroglycerin (Nitroglycerin Sl 0.4 Mg/Tab Tab) 0.4 mg SL UD PRN PRN Reason: Chest Pain Stop: 11/03/21 21:55 Nystatin (Nystatin Susp 500,000 U/5 Ml Udc) 5 ml PO QID [facility] Stop: 10/15/21 12:59 Last Admin: 10/07/21 12:11 Dose: 5 ml Documented by: Pantoprazole Sodium (Pantoprazole 40 Mg Tab) 40 mg PO HS [facility] Stop: 11/03/21 21:55 Last Admin: 10/06/21 20:44 Dose: 40 mg Documented by: Sennosides (Senna 8.6 Mg Tab) 17.2 mg PO HS PRN PRN Reason: Constipation Stop: 11/03/21 21:55 Last Admin: 10/06/21 07:30 Dose: 17.2 mg Documented by: Tamsulosin HCl (Tamsulosin Hcl 0.4 Mg Cap) 0.4 mg PO HS [facility] Stop: 11/03/21 21:55 Last Admin: 10/06/21 20:44 Dose: 0.4 mg Documented by: Warfarin Sodium (Warfarin Sod 2.5 Mg Tab) 2.5 mg PO SuMoTuThFrSa@1700 [facility] Stop: 11/04/21 16:59 Last Admin: 10/06/21 16:53 Dose: 2.5 mg Documented by: Warfarin Sodium (Warfarin Sod 5 Mg Tab) 5 mg PO We@1700 [facility] Stop: 11/06/21 16:59
[2021-10-07] MEDS ORDERED: WARFARIN SOD 5 MG TAB PO SCH (17:00)
[2021-10-07] MEDS: ATORVASTATIN 40 MG TAB PO SCH (20:17)
[2021-10-07] MEDS: PANTOprazole 40 MG TAB PO SCH (20:18)
[2021-10-07] MEDS: TAMSULOSIN HCL 0.4 MG CAP PO SCH (20:18)
[2021-10-07] MEDS: CEFEPIME 2,000 MG in SYRINGE 0 ML IV SCH (22:52)
[2021-10-08] MEDS: FUROSEMIDE 40 MG TAB PO SCH (08:23)
[2021-10-08] MEDS: amLODIPine BESYLATE 5 MG TAB PO SCH (08:23)
[2021-10-08] MEDS: ASPIRIN 81 MG ECTAB PO SCH (08:23)
[2021-10-08] MEDS: ISOSORBIDE MONO EXTENDED REL 60 MG TABCR PO SCH (08:23)
[2021-10-08 08:24] LABS: Hematocrit (blood only) 32.3 % (42-52); Hemoglobin 10.7 g/dL (14.0-18.0); Mean Corpuscular Hemoglobin 29.2 pg (25-34); Mean Corpuscular Hgb Conc 33.1 g/dL (32-36); Mean Corpuscular Volume 88.3 fL (80-100); Mean Platelet Volume 10.5 fL (7.4-10.4); Platelet Count 287 K/uL (130-400); RDW Coefficient of Variation 16.7 % (11.5-14.5); RDW Standard Deviation 54.7 fL (36.4-46.3); Red Blood Count 3.66 M/uL (4.7-6.1); White Blood Count 11.42 K/uL (4.8-10.8)
[2021-10-08] MEDS: ADVANCED PROBIOTIC 1250 MG CAPSULE PO SCH (08:24)
[2021-10-08] MEDS: ACETAMINOPHEN 325 MG TAB PO PRN (08:24)
[2021-10-08] MEDS: LIDOCAINE 5% 1 PATCH TD SCH (08:24)
[2021-10-08] MEDS: MAGNESIUM OXIDE 400 MG TAB PO SCH ×2 (08:25→21:25)
[2021-10-08] MEDS: LOSARTAN POTASSIUM 50 MG TAB PO SCH (08:25)
[2021-10-08] MEDS: NYSTATIN SUSP 500,000 U/5 ML UDC PO SCH ×4 (08:25→21:25)
[2021-10-08] MEDS: INSULIN GLARGINE SOLOSTAR 100 UNITS/ML 3 ML PEN SQ SCH (08:26)
[2021-10-08] MEDS: INSULIN ASPART PER UNIT SC SCH ×4 (08:26→21:19)
[2021-10-08 08:28] LABS: INR 2.6 (0.9-1.1)
[2021-10-08 08:58] LABS: BUN Creatinine Ratio 26.4 (10-20); Calcium 8.7 mg/dl (8.5-10.1); Est GFR (African American) 88.1 ml/min
[2021-10-08] MEDS: CEFEPIME 2,000 MG in SYRINGE 0 ML IV SCH (11:19)
--- NOTE | 2021-10-08 11:25 | Hospitalist Progress Note ---
Date of Service October 08, 2021 Assessment & Plan (1) Acute UTI: Plan: ASSESSMENT AND PLAN: This is an 86-year-old male, with urinary retention on Camejo catheter, resident of [facility], presents with confusion and urinary tract infection. 1. Acute metabolic encephalopathy, most likely secondary to urinary tract infection, in the setting of chronic indwelling Camejo catheter Recurrent CAUTI. Persistent urinary retention is present. Urology will weigh in on this in am. He continues on Flomax. Cont cefepime/stopped Daptomycin. He is clinically improving on therapy but now was noted to have pus coming from urethra. Culture reveals Proteus. New camejo is in place and patient/patient's family has touched base with Urology regarding the plan. 2. Proteus bacteremia 2/2 CAUTI-cont cefepime pending further abx recs from ID this afternoon. 3. CAUTI-cont cefepime. Camejo catheter replaced (10/06) 4. Back pain, history of L1 kyphoplasty on 07/2021: chronic, stable, managed. Known h/o burst fracture with conservative management back in May. There are no focal neurologic deficits at this time. Continue Lidoderm patch and Tylenol as needed 5. Atrial fibrillation, on Coumadin. INR therapeutic,cont home dosing. Per Dr. Richardson's notes: Seems to be on the last admission he was on metoprolol succinate, but [facility]. HR has been normal, cont current medical therapy.. 6. Diabetes: chronic, controlled. Cont current basal bolus dosing of insulin. 7. Hypertension.chronic, controlled. Continue his Norvasc, losartan, Imdur and Lasix. Currently metoprolol is not on medication list. HR is stable, removed PRN Lopressor from treatment options. 8. History of cognitive impairment Monitor for delirium 9. Elevated troponin likely from demand ischemia. Troponin trending down, from 72, now 51 EKG no signs of acute ischemia or infarct updated echo ordered No cardiac symptoms Patient also had mild troponin elevation during admission in June 2021 9. Deep venous thrombosis prophylaxis. INR 2.3, cont coumadin. CODE STATUS: DNR/DNI Disposition anticipate to return to [facility] tomorrow. Discussed with THOMAS and RN. Rosamaria Wilkin, DO [facility] Hospitalist (2) Metabolic encephalopathy: (3) Catheter-associated urinary tract infection: Admission and Anticipated Discharge Date Admission Date: October 04, 2021 Subjective 86 yo M with CAUTI and Proteus bacteremia confusion has resolved and he is mentating at baseline denies pain Feeling well, afebrile, tolerating PO 1-assist and ambulating at baseline per nursing staff no issues with catheter irritation Review of Systems Review of Systems: All systems were reviewed and negative except as indicated in subjective above. Physical Exam Physical Exam: CONSTITUTIONAL: WNWD, vitals as above, generally well- appearing, NAD EYES: normal conjunctivae, no scleral icterus ENT: external ear and nose normal NECK: trachea midline RESPIRATORY: clear to auscultation bilaterally, no crackles, rales or wheezes, normal respiratory effort CARDIOVASCULAR: regular rate and rhythm, S1 and 2 heard without murmurs, gallops or rubs, no JVD, no peripheral edema CHEST: inspection of chest was normal GASTROINTESTINAL: soft, nontender, ND, no guarding MUSCULOSKELETAL: generalized weakness, patient cannot sit up in bed independently, head is normocephalic and atraumatic SKIN: warm and dry NEUROLOGIC: CN 2-12 grossly intact, no sensory deficit, normal cognition, norm al speech, no tremor PSYCHIATRIC: alert cooperative and oriented to person, place and time. Results & Data Results & Data ([facility]) Vital Signs (Past 12 Hours) Vital Signs Temp Pulse Resp BP Pulse Ox 10/08/21 07:47 36.6 C 73 20 154/70 H 96 Laboratory Results Short CBC 10/08/21 Range/Units 07:39 WBC 11.42 H (4.8-10.8) K/uL Hgb 10.7 L (14.0-18.0) g/dL Hct 32.3 L (42-52) % Plt Count 287 (130-400) K/uL BMP 10/08/21 07:39 Sodium 135 L Potassium 4.0 Chloride 103 Carbon Dioxide 23 BUN 24 H Creatinine 0.91 Glucose 135 H Calcium 8.7 Medications Administered Current Inpatient Medications Acetaminophen (Acetaminophen 325 Mg Tab) 650 mg PO Q4H PRN PRN Reason: Pain or Fever Stop: 11/03/21 21:55 Last Admin: 10/08/21 08:24 Dose: 650 mg Documented by: Albuterol (Albuterol Hfa 8 Gm Inhaler) 2 puffs INH Q6H PRN PRN Reason: Wheezing Stop: 11/03/21 21:55 Amlodipine Besylate (Amlodipine Besylate 5 Mg Tab) 5 mg PO DAILY [facility] Stop: 11/04/21 08:59 Last Admin: 10/08/21 08:23 Dose: 5 mg Documented by: Aspirin (Aspirin 81 Mg Ectab) 81 mg PO QAM [facility] Stop: 11/04/21 08:59 Last Admin: 10/08/21 08:23 Dose: 81 mg Documented by: Atorvastatin Calcium (Atorvastatin 40 Mg Tab) 40 mg PO HS [facility] Stop: 11/03/21 21:55 Last Admin: 10/07/21 20:17 Dose: 40 mg Documented by: Dextrose (Dextrose 50% 50 Ml Syringe) 25 - 50 ml IV UD PRN; Protocol PRN Reason: Hypoglycemia Protocol Stop: 11/03/21 22:29 Furosemide (Furosemide 40 Mg Tab) 40 mg PO QAM [facility] Stop: 11/04/21 08:59 Last Admin: 10/08/21 08:23 Dose: 40 mg Documented by: Glucagon (Glucagon For Inj 1 Mg Vial) 1 mg IM UD PRN; Protocol PRN Reason: Hypoglycemia Protocol Stop: 11/03/21 22:29 Glucose (Glucose 40% Gel 15 Gm Tube) 15 - 30 gm PO UD PRN; Protocol PRN Reason: Hypoglycemia Protocol Stop: 11/03/21 22:29 Glucose (Glucose 10 Tabs/Tube) 4 - 8 tabs PO UD PRN; Protocol PRN Reason: Hypoglycemia Protocol Stop: 11/03/21 22:29 Cefepime HCl 2,000 mg/ Syringe 20 mls @ 5 mls/min IV Q12H [facility]; Protocol Stop: 10/14/21 11:01 Last Admin: 10/08/21 11:19 Dose: 5 mls/min Documented by: Insulin Aspart (Insulin Aspart Per Unit) 0 units SC ACHS [facility] Stop: 11/03/21 21:55 Last Admin: 10/08/21 08:26 Dose: 4 units Documented by: Insulin Glargine (Insulin Glargine Solostar 100 Units/Ml 3 Ml Pen) 12 units SQ QAM [facility] Stop: 11/04/21 08:59 Last Admin: 10/08/21 08:26 Dose: 12 units Documented by: Isosorbide Mononitrate (Isosorbide [place] Extended Rel 60 Mg Tabcr) 60 mg PO QAM [facility] Stop: 11/04/21 08:59 Last Admin: 10/08/21 08:23 Dose: 60 mg Documented by: Lactobacillus Acidophilus (Advanced Probiotic 1250 Mg Capsule) 2 cap PO DAILY [facility] Stop: 11/05/21 08:59 Last Admin: 10/08/21 08:24 Dose: 2 cap Documented by: Lidocaine (Lidocaine 5% 1 Patch) [facility] Stop: 11/04/21 08:59 Last Admin: 10/08/21 08:24 Dose: 1 patch Documented by: Losartan Potassium (Losartan Potassium 50 Mg Tab) 50 mg PO QAM [facility] Stop: 11/04/21 08:59 Last Admin: 10/08/21 08:25 Dose: 50 mg Documented by: Magnesium Oxide (Magnesium Oxide 400 Mg Tab) 400 mg PO BID [facility] Stop: 11/04/21 08:59 Last Admin: 10/08/21 08:25 Dose: 400 mg Documented by: Miscellaneous (Carbohydrates For Hypoglycemia ) 15 - 30 gm PO UD PRN PRN Reason: Hypoglycemia Treatment Stop: 11/03/21 22:29 Miscellaneous (Remove Lidoderm Patch) 1 ea N/A DAILY@2100 [facility] Stop: 11/04/21 20:59 Last Admin: 10/07/21 20:18 Dose: 1 ea Documented by: Nitroglycerin (Nitroglycerin Sl 0.4 Mg/Tab Tab) 0.4 mg SL UD PRN PRN Reason: Chest Pain Stop: 11/03/21 21:55 Nystatin (Nystatin Susp 500,000 U/5 Ml Udc) 5 ml PO QID [facility] Stop: 10/15/21 12:59 Last Admin: 10/08/21 08:25 Dose: 5 ml Documented by: Pantoprazole Sodium (Pantoprazole 40 Mg Tab) 40 mg PO HS [facility] Stop: 11/03/21 21:55 Last Admin: 10/07/21 20:18 Dose: 40 mg Documented by: Sennosides (Senna 8.6 Mg Tab) 17.2 mg PO HS PRN PRN Reason: Constipation Stop: 11/03/21 21:55 Last Admin: 10/06/21 07:30 Dose: 17.2 mg Documented by: Tamsulosin HCl (Tamsulosin Hcl 0.4 Mg Cap) 0.4 mg PO [facility] Stop: 11/03/21 21:55 Last Admin: 10/07/21 20:18 Dose: 0.4 mg Documented by: Warfarin Sodium (Warfarin Sod 2.5 Mg Tab) 2.5 mg PO PopTVeronika@1700 [facility] Stop: 11/04/21 16:59 Last Admin: 10/06/21 16:53 Dose: 2.5 mg Documented by: Warfarin Sodium (Warfarin Sod 5 Mg Tab) 5 mg PO We@1700 [facility] Stop: 11/06/21 16:59 Last Admin: 10/07/21 16:56 Dose: 5 mg Documented by:
[2021-10-08] MEDS: WARFARIN SOD 2.5 MG TAB PO SCH (18:47)
[2021-10-08] MEDS: SENNA 8.6 MG TAB PO PRN (21:24)
[2021-10-08] MEDS: TAMSULOSIN HCL 0.4 MG CAP PO SCH (21:25)
[2021-10-08] MEDS: PANTOprazole 40 MG TAB PO SCH (21:25)
[2021-10-08] MEDS: ATORVASTATIN 40 MG TAB PO SCH (21:25)
[2021-10-09] MEDS: CEFEPIME 2,000 MG in SYRINGE 0 ML IV SCH ×2 (00:34→11:26)
[2021-10-09 06:15] LABS: INR 2.9 (0.9-1.1); Prothrombin Time 28.7 Seconds (9.0-12.0)
[2021-10-09 06:23] LABS: Creatinine Clr Calc Pharmacy 56.5 ml/min; Est GFR (African American) 75.9 ml/min; Est GFR (Non-African American) 65.5 ml/min
[2021-10-09] MEDS: amLODIPine BESYLATE 5 MG TAB PO SCH (08:26)
[2021-10-09] MEDS: ISOSORBIDE MONO EXTENDED REL 60 MG TABCR PO SCH (08:27)
[2021-10-09] MEDS: FUROSEMIDE 40 MG TAB PO SCH (08:27)
[2021-10-09] MEDS: ASPIRIN 81 MG ECTAB PO SCH (08:27)
[2021-10-09] MEDS: LIDOCAINE 5% 1 PATCH TD SCH (08:28)
[2021-10-09] MEDS: ADVANCED PROBIOTIC 1250 MG CAPSULE PO SCH (08:28)
[2021-10-09] MEDS: LOSARTAN POTASSIUM 50 MG TAB PO SCH (08:28)
[2021-10-09] MEDS: MAGNESIUM OXIDE 400 MG TAB PO SCH ×2 (08:29→20:17)
[2021-10-09] MEDS: NYSTATIN SUSP 500,000 U/5 ML UDC PO SCH ×4 (08:29→20:18)
[2021-10-09] MEDS: INSULIN GLARGINE SOLOSTAR 100 UNITS/ML 3 ML PEN SQ SCH (09:19)
[2021-10-09] MEDS: INSULIN ASPART PER UNIT SC SCH ×4 (09:20→20:31)
[2021-10-09] MEDS: cefTRIAXone SODIUM 2,000 MG in DEXTROSE 5% 50 ML IV SCH (12:29)
[2021-10-09] MEDS: WARFARIN SOD 2.5 MG TAB PO SCH (17:29)
[2021-10-09] MEDS: ATORVASTATIN 40 MG TAB PO SCH (20:18)
[2021-10-09] MEDS: PANTOprazole 40 MG TAB PO SCH (20:18)
[2021-10-09] MEDS: TAMSULOSIN HCL 0.4 MG CAP PO SCH (20:18)
[2021-10-09] MEDS: SENNA 8.6 MG TAB PO PRN (20:18)
--- NOTE | 2021-10-09 21:38 | Hospitalist Progress Note ---
Date of Service October 09, 2021 Assessment & Plan (1) Acute UTI: Plan: ASSESSMENT AND PLAN: This is an 86-year-old male, with urinary retention on Camejo catheter, resident of [facility], presents with confusion and urinary tract infection. 1. Acute metabolic encephalopathy, most likely secondary to urinary tract infection, in the setting of chronic indwelling Camejo catheter Recurrent CAUTI. Persistent urinary retention is present. Urology will weigh in on this in am. He continues on Flomax. Cont cefepime/stopped Daptomycin. He is clinically improving on therapy but now was noted to have pus coming from urethra. Culture reveals Proteus. New camejo is in place and patient/patient's family has touched base with Urology regarding the plan. 2. Proteus bacteremia 2/2 CAUTI-cont cefepime pending further abx recs from ID; pharmacist adjusted to ceftriaxone once daily after consulting with ID physician. Will cont IV abx through us-guided line until 10/18 (total 14 days) 3. CAUTI-cont cefepime. Camejo catheter replaced (10/06) 4. Back pain, history of L1 kyphoplasty on 07/2021: chronic, stable, managed. Known h/o burst fracture with conservative management back in May. There are no focal neurologic deficits at this time. Continue Lidoderm patch and Tylenol as needed 5. Atrial fibrillation, on Coumadin. INR therapeutic,cont home dosing. Per Dr. Richardson's notes: Seems to be on the last admission he was on metoprolol succinate, but this is not on the list.[facility] and they say he is not on the Toprol-XL. HR has been normal, cont current medical therapy.. 6. Diabetes: chronic, controlled. Cont current basal bolus dosing of insulin. 7. Hypertension.chronic, controlled. Continue his Norvasc, losartan, Imdur and Lasix. Currently metoprolol is not on medication list. HR is stable, removed PRN Lopressor from treatment options. 8. History of cognitive impairment Monitor for delirium 9. Elevated troponin likely from demand ischemia. Troponin trending down, from 72, now 51 EKG no signs of acute ischemia or infarct updated echo ordered No cardiac symptoms Patient also had mild troponin elevation during admission in June 2021 9. Deep venous thrombosis prophylaxis. INR 2.9, cont coumadin. CODE STATUS: DNR/DNI Disposition anticipate to return to [facility] on Tuesday. CM has written script for IV abx. [facility] Hospital[facility] (2) Metabolic encephalopathy: (3) Catheter-associated urinary tract infection: Admission and Anticipated Discharge Date Admission Date: October 04, 2021 Subjective 86 yo M with CAUTI and Proteus bacteremia mentating at baseline denies pain Feeling well, afebrile, tolerating PO 1-assist and ambulating at baseline per nursing staff no issues with catheter irritation awaiting placement Review of Systems Review of Systems: All systems were reviewed and negative except as indicated in subjective above. Physical Exam Physical Exam: CONSTITUTIONAL: WNWD, vitals as above, generally well- appearing, NAD EYES: normal conjunctivae, no scleral icterus ENT: external ear and nose normal NECK: trachea midline RESPIRATORY: clear to auscultation bilaterally, no crackles, rales or wheezes, normal respiratory effort CARDIOVASCULAR: regular rate and rhythm, S1 and 2 heard without murmurs, gallops or rubs, no JVD, no peripheral edema CHEST: inspection of chest was normal GASTROINTESTINAL: soft, nontender, ND, no guarding : camejo in place. MUSCULOSKELETAL: generalized weakness, patient cannot sit up in bed ind ependently, head is normocephalic and atraumatic SKIN: warm and dry NEUROLOGIC: CN 2-12 grossly intact, no sensory deficit, normal cognition, normal speech, no tremor PSYCHIATRIC: alert cooperative and oriented to person, place and time. Results & Data Results & Data ([facility]) Vital Signs (Past 12 Hours) Vital Signs Temp Pulse Resp BP Pulse Ox 10/09/21 15:57 37.0 C 64 16 118/64 94 Laboratory Results [facility] 10/09/21 05:34 Creatinine 1.03 Medications Administered Current Inpatient Medications Acetaminophen (Acetaminophen 325 Mg Tab) 650 mg PO Q4H PRN PRN Reason: Pain or Fever Stop: 11/03/21 21:55 Last Admin: 10/08/21 08:24 Dose: 650 mg Documented by: Albuterol (Albuterol Hfa 8 Gm Inhaler) 2 puffs INH Q6H PRN PRN Reason: Wheezing Stop: 11/03/21 21:55 Amlodipine Besylate (Amlodipine Besylate 5 Mg Tab) 5 mg PO DAILY [facility] Stop: 11/04/21 08:59 Last Admin: 10/09/21 08:26 Dose: 5 mg Documented by: Aspirin (Aspirin 81 Mg Ectab) 81 mg PO [facility] Stop: 11/04/21 08:59 Last Admin: 10/09/21 08:27 Dose: 81 mg Documented by: Atorvastatin Calcium (Atorvastatin 40 Mg Tab) [address] [facility] Stop: 11/03/21 21:55 Last Admin: 10/09/21 20:18 Dose: 40 mg Documented by: Dextrose (Dextrose 50% 50 Ml Syringe) 25 - 50 ml IV UD PRN; Protocol PRN Reason: Hypoglycemia Protocol Stop: 11/03/21 22:29 Furosemide (Furosemide 40 Mg Tab) 40 mg PO [facility] Stop: 11/04/21 08:59 Last Admin: 10/09/21 08:27 Dose: 40 mg Documented by: Glucagon (Glucagon For Inj 1 Mg Vial) 1 mg IM UD PRN; Protocol PRN Reason: Hypoglycemia Protocol Stop: 11/03/21 22:29 Glucose (Glucose 40% Gel 15 Gm Tube) 15 - 30 gm PO UD PRN; Protocol PRN Reason: Hypoglycemia Protocol Stop: 11/03/21 22:29 Glucose (Glucose 10 Tabs/Tube) 4 - 8 tabs PO UD PRN; Protocol PRN Reason: Hypoglycemia Protocol Stop: 11/03/21 22:29 Ceftriaxone Sodium 2,000 mg/ (Dextrose) 70 mls @ 100 mls/hr IV Q24H [facility]; Protocol Stop: 10/23/21 11:59 Last Infusion: 10/09/21 13:16 Dose: Infused Documented by: Insulin Aspart (Insulin Aspart Per Unit) 0 units SC [facility] Stop: 11/03/21 21:55 Last Admin: 10/09/21 20:31 Dose: 1 units Documented by: Insulin Glargine (Insulin Glargine Solostar 100 Units/Ml 3 Ml Pen) 12 units SQ [facility] Stop: 11/04/21 08:59 Last Admin: 10/09/21 09:19 Dose: 12 units Documented by: Isosorbide Mononitrate (Isosorbide [place] Extended Rel 60 Mg Tabcr) 60 mg PO [facility] Stop: 11/04/21 08:59 Last Admin: 10/09/21 08:27 Dose: 60 mg Documented by: Lactobacillus Acidophilus (Advanced Probiotic 1250 Mg Capsule) 2 cap PO DAILY [facility] Stop: 11/05/21 08:59 Last Admin: 10/09/21 08:28 Dose: 2 cap Documented by: Lidocaine (Lidocaine 5% 1 Patch) 1 patch TD QAM [facility] Stop: 11/04/21 08:59 Last Admin: 10/09/21 08:28 Dose: 1 patch Documented by: Losartan Potassium (Losartan Potassium 50 Mg Tab) 50 mg PO QAM [facility] Stop: 11/04/21 08:59 Last Admin: 10/09/21 08:28 Dose: 50 mg Documented by: Magnesium Oxide (Magnesium Oxide 400 Mg Tab) 400 mg PO BID [facility] Stop: 11/04/21 08:59 Last Admin: 10/09/21 20:17 Dose: 400 mg Documented by: Miscellaneous (Carbohydrates For Hypoglycemia ) 15 - 30 gm PO UD PRN PRN Reason: Hypoglycemia Treatment Stop: 11/03/21 22:29 Miscellaneous (Remove Lidoderm Patch) 1 ea N/A DAILY@2100 [facility] Stop: 11/04/21 20:59 Last Admin: 10/09/21 20:19 Dose: 1 ea Documented by: Nitroglycerin (Nitroglycerin Sl 0.4 Mg/Tab Tab) 0.4 mg SL UD PRN PRN Reason: Chest Pain Stop: 11/03/21 21:55 Nystatin (Nystatin Susp 500,000 U/5 Ml Ud) 5 ml PO QID [facility] Stop: 10/15/21 12:59 Last Admin: 10/09/21 20:18 Dose: 5 ml Documented by: Pantoprazole Sodium (Pantoprazole 40 Mg Tab) 40 mg PO HS [facility] Stop: 11/03/21 21:55 Last Admin: 10/09/21 20:18 Dose: 40 mg Documented by: Sennosides (Senna 8.6 Mg Tab) 17.2 mg PO HS PRN PRN Reason: Constipation Stop: 11/03/21 21:55 Last Admin: 10/09/21 20:18 Dose: 17.2 mg Documented by: Tamsulosin HCl (Tamsulosin Hcl 0.4 Mg Cap) 0.4 mg PO HS [facility] Stop: 11/03/21 21:55 Last Admin: 10/09/21 20:18 Dose: 0.4 mg Documented by: Warfarin Sodium (Warfarin Sod 2.5 Mg Tab) 2.5 mg PO SuMoTuThFrSa@1700 [facility] Stop: 11/04/21 16:59 Last Admin: 10/09/21 17:29 Dose: 2.5 mg Documented by: Warfarin Sodium (Warfarin Sod 5 Mg Tab) 5 mg PO We@1700 [facility] Stop: 11/06/21 16:59 Last Admin: 10/07/21 16:56 Dose: 5 mg Documented by:
[2021-10-10] MEDS: amLODIPine BESYLATE 5 MG TAB PO SCH (07:58)
[2021-10-10] MEDS: ASPIRIN 81 MG ECTAB PO SCH (07:59)
[2021-10-10] MEDS: FUROSEMIDE 40 MG TAB PO SCH (07:59)
[2021-10-10] MEDS: ADVANCED PROBIOTIC 1250 MG CAPSULE PO SCH (07:59)
[2021-10-10] MEDS: ISOSORBIDE MONO EXTENDED REL 60 MG TABCR PO SCH (07:59)
[2021-10-10] MEDS: LIDOCAINE 5% 1 PATCH TD SCH (07:59)
[2021-10-10] MEDS: LOSARTAN POTASSIUM 50 MG TAB PO SCH (07:59)
[2021-10-10] MEDS: MAGNESIUM OXIDE 400 MG TAB PO SCH ×2 (07:59→20:57)
[2021-10-10] MEDS: INSULIN GLARGINE SOLOSTAR 100 UNITS/ML 3 ML PEN SQ SCH (08:00)
[2021-10-10] MEDS: NYSTATIN SUSP 500,000 U/5 ML UDC PO SCH ×4 (08:00→20:58)
[2021-10-10] MEDS: INSULIN ASPART PER UNIT SC SCH ×4 (08:53→20:58)
[2021-10-10] MEDS: cefTRIAXone SODIUM 2,000 MG in DEXTROSE 5% 50 ML IV SCH (12:24)
[2021-10-10] MEDS: WARFARIN SOD 2.5 MG TAB PO SCH (16:46)
--- NOTE | 2021-10-10 17:25 | Hospitalist Progress Note ---
Date of Service October 10, 2021 Assessment & Plan (1) Acute UTI: (2) Metabolic encephalopathy: (3) Catheter-associated urinary tract infection: Plan: This is an 86-year-old male, with urinary retention on Cherry catheter, resident of [facility], presents with confusion and urinary tract infection. 1. Acute metabolic encephalopathy, most likely secondary to urinary tract infection and bacteremia, in the setting of chronic indwelling Cherry catheter- encephalopathy resolved. 2. Proteus bacteremia 2/2 CAUTI- s/p cefepime and now on rocephin per clx results per ID through us-guided line until 10/18 (total 14 days) 3. Recurrent CAUTI- s/p cefepime and now on rocephin. Cherry catheter replaced (10/06) - patient seen by uro- recommended OP f/u for cystoscopy and possible voiding trial 4. Back pain, history of L1 kyphoplasty on 07/2021: chronic, stable, managed. Known h/o burst fracture with conservative management back in May. There are no focal neurologic deficits at this time. Continue Lidoderm patch and Tylenol as needed 5. Atrial fibrillation, on Coumadin. INR therapeutic,cont home dosing. Per Dr. Richardson's notes: Seems to be on the last admission he was on metoprolol succinate, but this is not on the list.[facility] and they say he is not on the Toprol-XL. HR has been normal, cont current medical therapy. 6. Diabetes: chronic, controlled. Cont current basal bolus dosing of insulin. 7. Hypertension.chronic, controlled. Continue his Norvasc, losartan, Imdur and Lasix. Currently metoprolol is not on medication list. HR is stable, removed PRN Lopressor from treatment options. 8. History of cognitive impairment Monitor for delirium 9. Elevated troponin- likely demand ischemia. 9. Deep venous thrombosis prophylaxis. INR 2.9, cont coumadin. Disposition- Return to [facility] tomorrow Admission and Anticipated Discharge Date Admission Date: October 04, 2021 Subjective Denies any new issues. Feels fine. No fever, chills, chest pain, shortness of breath. Normal oral intake. Physical Exam Physical Exam: General: Lying comfortably in bed, not in distress, on room air HEENT: EOMI, MICHELLE, MMM Chest: Clear breath sounds bilaterally, no wheezes or crackles CVS: Regular rate and rhythm, normal heart sounds, no murmur Abdomen: Soft, non tender, not distended, normal bowel sounds Neuro: Awake, alert, oriented, conversing well, non focal Extremities: No cyanosis, clubbing or edema Cherry with lesly urine Results & Data Results & Data ([facility]) Vital Signs (Past 12 Hours) Vital Signs Temp Pulse Resp BP Pulse Ox 10/10/21 16:44 36.8 C 63 18 139/66 94 10/10/21 07:04 36.5 C 61 18 123/62 96 Medications Administered Current Inpatient Medications Acetaminophen (Acetaminophen 325 Mg Tab) 650 mg PO Q4H PRN PRN Reason: Pain or Fever Stop: 11/03/21 21:55 Last Admin: 10/08/21 08:24 Dose: 650 mg Documented by: Albuterol (Albuterol Hfa 8 Gm Inhaler) 2 puffs INH Q6H PRN PRN Reason: Wheezing Stop: 11/03/21 21:55 Amlodipine Besylate (Amlodipine Besylate 5 Mg Tab) 5 mg PO DAILY [facility] Stop: 11/04/21 08:59 Last Admin: 10/10/21 07:58 Dose: 5 mg Documented by: Aspirin (Aspirin 81 Mg Ectab) 81 mg PO QAM [facility] Stop: 11/04/21 08:59 Last Admin: 10/10/21 07:59 Dose: 81 mg Documented by: Atorvastatin Calcium (Atorvastatin 40 Mg Tab) 40 mg PO HS [facility] Stop: 11/03/21 21:55 Last Admin: 10/09/21 20:18 Dose: 40 mg Documented by: Dextrose (Dextrose 50% 50 Ml Syringe) 25 - 50 ml IV UD PRN; Protocol PRN Reason: Hypoglycemia Protocol Stop: 11/03/21 22:29 Furosemide (Furosemide 40 Mg Tab) 40 mg PO QAM [facility] Stop: 11/04/21 08:59 Last Admin: 10/10/21 07:59 Dose: 40 mg Documented by: Glucagon (Glucagon For Inj 1 Mg Vial) 1 mg IM UD PRN; Protocol PRN Reason: Hypoglycemia Protocol Stop: 11/03/21 22:29 Glucose (Glucose 40% Gel 15 Gm Tube) 15 - 30 gm PO UD PRN; Protocol PRN Reason: Hypoglycemia Protocol Stop: 11/03/21 22:29 Glucose (Glucose 10 Tabs/Tube) 4 - 8 tabs PO UD PRN; Protocol PRN Reason: Hypoglycemia Protocol Stop: 11/03/21 22:29 Ceftriaxone Sodium 2,000 mg/ (Dextrose) 70 mls @ 100 mls/hr IV Q24H [facility]; Protocol Stop: 10/23/21 11:59 Last Infusion: 10/10/21 13:06 Dose: Infused Documented by: Insulin Aspart (Insulin Aspart Per Unit) 0 units SC ACHS [facility] Stop: 11/03/21 21:55 Last Admin: 10/10/21 12:24 Dose: 4 units Documented by: Insulin Glargine (Insulin Glargine Solostar 100 Units/Ml 3 Ml Pen) 12 units SQ QAM [facility] Stop: 11/04/21 08:59 Last Admin: 10/10/21 08:00 Dose: 12 units Documented by: Isosorbide Mononitrate (Isosorbide [place] Extended Rel 60 Mg Tabcr) 60 mg PO QAM [facility] Stop: 11/04/21 08:59 Last Admin: 10/10/21 07:59 Dose: 60 mg Documented by: Lactobacillus Acidophilus (Advanced Probiotic 1250 Mg Capsule) 2 cap PO DAILY [facility] Stop: 11/05/21 08:59 Last Admin: 10/10/21 07:59 Dose: 2 cap Documented by: Lidocaine (Lidocaine 5% 1 Patch) 1 patch [facility] [place] [facility] Stop: 11/04/21 08:59 Last Admin: 10/10/21 07:59 Dose: 1 patch Documented by: Losartan Potassium (Losartan Potassium 50 Mg Tab) 50 mg PO QAM [facility] Stop: 11/04/21 08:59 Last Admin: 10/10/21 07:59 Dose: 50 mg Documented by: Magnesium Oxide (Magnesium Oxide 400 Mg Tab) 400 mg PO BID [facility] Stop: 11/04/21 08:59 Last Admin: 10/10/21 07:59 Dose: 400 mg Documented by: Miscellaneous (Carbohydrates For Hypoglycemia ) 15 - 30 gm PO UD PRN PRN Reason: Hypoglycemia Treatment Stop: 11/03/21 22:29 Miscellaneous (Remove Lidoderm Patch) 1 ea N/A DAILY@2100 [facility] Stop: 11/04/21 20:59 Last Admin: 10/09/21 20:19 Dose: 1 ea Documented by: Nitroglycerin (Nitroglycerin Sl 0.4 Mg/Tab Tab) 0.4 mg SL UD PRN PRN Reason: Chest Pain Stop: 11/03/21 21:55 Nystatin (Nystatin Susp 500,000 U/5 Ml Udc) 5 ml PO QID [facility] Stop: 10/15/21 12:59 Last Admin: 10/10/21 16:46 Dose: 5 ml Documented by: Pantoprazole Sodium (Pantoprazole 40 Mg Tab) 40 mg PO HS [facility] Stop: 11/03/21 21:55 Last Admin: 10/09/21 20:18 Dose: 40 mg Documented by: Sennosides (Senna 8.6 Mg Tab) 17.2 mg PO HS PRN PRN Reason: Constipation Stop: 11/03/21 21:55 Last Admin: 10/09/21 20:18 Dose: 17.2 mg Documented by: Tamsulosin HCl (Tamsulosin Hcl 0.4 Mg Cap) 0.4 mg PO HS [facility] Stop: 11/03/21 21:55 Last Admin: 10/09/21 20:18 Dose: 0.4 mg Documented by: Warfarin Sodium (Warfarin Sod 2.5 Mg Tab) 2.5 mg PO PopTuThSa@1700 [facility] Stop: 11/04/21 16:59 Last Admin: 10/10/21 16:46 Dose: 2.5 mg Documented by: Warfarin Sodium (Warfarin Sod 5 Mg Tab) 5 mg PO We@1700 [facility] Stop: 11/06/21 16:59 Last Admin: 10/07/21 16:56 Dose: 5 mg Documented by:
[2021-10-10] MEDS: PANTOprazole 40 MG TAB PO SCH (20:56)
[2021-10-10] MEDS: SENNA 8.6 MG TAB PO PRN (20:56)
[2021-10-10] MEDS: TAMSULOSIN HCL 0.4 MG CAP PO SCH (20:57)
[2021-10-10] MEDS: ATORVASTATIN 40 MG TAB PO SCH (20:57)
[2021-10-11] MEDS: MAGNESIUM OXIDE 400 MG TAB PO SCH (07:49)
[2021-10-11] MEDS: NYSTATIN SUSP 500,000 U/5 ML UDC PO SCH (07:49)
[2021-10-11] MEDS: amLODIPine BESYLATE 5 MG TAB PO SCH (07:49)
[2021-10-11] MEDS: FUROSEMIDE 40 MG TAB PO SCH (07:49)
[2021-10-11] MEDS: ISOSORBIDE MONO EXTENDED REL 60 MG TABCR PO SCH (07:49)
[2021-10-11] MEDS: ADVANCED PROBIOTIC 1250 MG CAPSULE PO SCH (07:49)
[2021-10-11] MEDS: ASPIRIN 81 MG ECTAB PO SCH (07:50)
[2021-10-11] MEDS: LIDOCAINE 5% 1 PATCH TD SCH (07:50)
[2021-10-11] MEDS: LOSARTAN POTASSIUM 50 MG TAB PO SCH (07:50)
[2021-10-11 08:16] LABS: INR 2.6 (0.9-1.1)
[2021-10-11 08:25] LABS: BUN Creatinine Ratio 28.9 (10-20); Calcium 8.9 mg/dl (8.5-10.1); Creatinine Clr Calc Pharmacy 64.7 ml/min; Est GFR (African American) 89.3 ml/min; Est GFR (Non-African American) 77.1 ml/min; Potassium 4.1 mmol/L (3.5-5.1)
[2021-10-11] MEDS: INSULIN GLARGINE SOLOSTAR 100 UNITS/ML 3 ML PEN SQ SCH (09:14)
[2021-10-11] MEDS: INSULIN ASPART PER UNIT SC SCH ×2 (09:22→12:43)
[2021-10-11] MEDS: cefTRIAXone SODIUM 2,000 MG in DEXTROSE 5% 50 ML IV SCH (11:40)
--- NOTE | 2021-10-11 16:43 | Discharge Summary ---
Date of Service October 11, 2021 Admission HPI Per Admitting Provider This is an 86-year-old male with past medical history significant for diabetes, gout, hyperlipidemia, sick sinus node dysfunction, paroxysmal atrial fibrillation, status post pacemaker, hypertension, history of atrial flutter, history of chronic systolic CHF, cognitive disorder, Alzheimer disease, CAD status post stent, status post CABG, history of splenectomy, history of pancreatic cancer, history of intracranial hemorrhage, currently living at [facility], seems to be previously was living at [facility], history of multiple falls, staus post kyphoplasty and was in [facility] in the past and he had a Cherry now for some time. He recently was treated with Macrobid for UTI, but today when daughter visited him, he seemed more confused and there was pus coming from the Cherry catheter site, though his catheter was recently changed, and had low-grade fever. The patient was brought to the ER. In the ER, the Cherry was changed and based on previous cultures, MRSA in the urine and also Proteus in the urine, so he was given Rocephin and vancomycin. The patient also complains of severe back pain. He was given fentanyl and somewhat drowsy, but easily arousable. Denies any headache, denies neck pain. Currently, back pain is better. Denies any chest pain, no shortness of breath, no cough, no abdominal pain, no nausea, no vomiting. Daughter thinks he had one episode of diarrhea today, possibly from the antibiotics. As per daughter, he ambulates okay with a walker and he can eat and swallow okay and daughter requested to give some pain medication for his back pain because he has a history of chronic back problem. Currently, the patient is hemodynamically stable. Admission Exam Per Admitting Provider GENERAL: The patient is moderate built, not in acute distress. VITAL SIGNS: Temperature 36.9, pulse 64, respiratory rate 24, blood pressure 112/59, oxygen 95% on room air. HEENT: Pupils equal, round and reactive to light. Oral mucosa moist. NECK: No JVD, no neck masses. CARDIOVASCULAR: S1 and S2 heard. Regular rate and rhythm. No murmur, no gallop. RESPIRATORY SYSTEM: Normal AP diameter. No accessory muscle use. No wheezing, no crackles. ABDOMEN: Soft, bowel sounds present, nontender, no distention. CENTRAL NERVOUS SYSTEM: Cranial nerves II-XII grossly intact, nonfocal. EXTREMITIES: Lower extremity, gross pedal edema present, no erythema seen. Principal Diagnosis CAUTI, proteus bacteremia, acute metabolic encephalopathy Discharge Exam General: Lying comfortably in bed, not in distress, on room air HEENT: EOMI, MICHELLE, MMM Chest: Clear breath sounds bilaterally, no wheezes or crackles CVS: Regular rate and rhythm, normal heart sounds, no murmur Abdomen: Soft, non tender, not distended, normal bowel sounds Neuro: Awake, alert, oriented, conversing well, non focal Extremities: No cyanosis, clubbing or edema Cherry with lesly urine Discharge Data Allergies Allergy/AdvReac Type Severity Reaction Status Date / Time shellfish derived Allergy Severe anaphylaxis Verified 10/04/21 16:25 clopidogrel Allergy Intermediate INTERNAL Verified 10/04/21 16:25 HIVES Penicillins Allergy Intermediate HIVES Verified 10/04/21 16:29 Consultations 10/04/21 19:14 ED Decision to Admit Stat 10/05/21 10:48 Consult Infectious Diseases Routine 10/05/21 13:33 Consult Urology Routine Ordered Studies 10/04/21 16:16 CT abd pelvis IV con only Stat 10/04/21 16:20 CT head/brain wo con Stat 10/05/21 US venous doppler LE BI Routine 10/09/21 08:38 US guide vascular access Urgent Hospital Course (1) Acute UTI: (2) Metabolic encephalopathy: (3) Catheter-associated urinary tract infection: 1. Acute metabolic encephalopathy, most likely secondary to urinary tract infection and bacteremia, in the setting of chronic indwelling Cherry catheter- encephalopathy resolved. now back to baseline. 2. Proteus bacteremia 2/2 CAUTI- s/p cefepime and now on rocephin per clx results per ID through US-guided line until 10/18 (total 14 days) 3. Recurrent CAUTI- s/p cefepime and now on rocephin. Cherry catheter replaced (10/06) - patient seen by uro- recommended OP f/u for cystoscopy and possible voiding t rial 4. Back pain, history of L1 kyphoplasty on 07/2021: chronic, stable, managed. Known h/o burst fracture with conservative management back in May. There are no focal neurologic deficits at this time. Continue Lidoderm patch and Tylenol as needed 5. Atrial fibrillation, on Coumadin.INR therapeutic,cont home dosing. Per admitting physician- Seems to be on the last admission he was on metoprolol succinate, but this is not [facility]. HR has been normal, continue current medical therapy. 6. Diabetes: chronic, controlled. Cont current basal bolus dosing of insulin. 7. Hypertension.chronic, controlled. Continue his Norvasc, losartan, Imdur and Lasix. Currently metoprolol is not on medication list. HR is stable, removed PRN Lopressor from treatment options. 8. History of cognitive impairment- stable, currently no delirium or acute issues. 9. Elevated troponin- likely demand ischemia. Disposition- Comfortable and stable for discharge back to [facility] today Total Time Total Time Spent Total Time Spent (In Minutes): 40 Discharge Plan Discharge Items Patient Disposition: Personal Half-Way Reason For Visit: UTI Discharge Diagnosis: CAUTI, bacteremia, acute metabolic encephalopathy Activity: Resume your previous activity Non-emergency contact: Primary Care Provider Call non-emergency contact if: you have any medication questions, your symptoms worsen and you have a fever Follow-up/Referrals: Melo Carlos MD [Outside Practitioners] - (Date & Time 10/14/2021 3:00 PM Provider Melo Carlos MD Department [facility] ) [facility] [Primary Care Provider] - Diet: Regular and Carb Consistent or DM2 Addtl Attending Provider Instructions: Continue iv ceftriaxone until 10/18 The iv line needs to come out after the iv antibiotic is done. Follow up with urology as outpatient for voiding trial and cystoscopy Follow up with family doctor Pending Studies at Discharge: No Stand-Alone Forms: My [facility] Replise, Smoking Cessation Skilled Items Patient informed of condition?: Yes DNR: Yes Discharge Level of Care: Other Communicable Disease: No Discharge Prognosis: Stable Lines: US Guided Peripheral IV Urinary Catheter: Yes Medications and DC Order Prescriptions: New Advanced Probiotic 625 mg (10 billion cell) Capsule 2 cap PO DAILY 10 Days Qty: 20 RF: 0 lidocaine 5 % Adhesive Patch,Medicated 30 patch transdermal QAM Qty: 30 RF: 0 Continued nitroglycerin [Nitrostat] 0.4 mg Tablet, Sublingual 0.4 mg sublingual UD PRN (Reason: Chest Pain) RF: 0 warfarin [Jantoven] 2.5 mg tablet 2.5 mg PO [id number] RF: 0 losartan 50 mg tablet 50 mg PO QAM Qty: 30 RF: 0 sennosides [Senokot] 8.6 mg tablet 8.6 - 17.2 mg PO HS PRN (Reason: Constipation) Qty: 30 RF: 0 acetaminophen [Tylenol] 325 mg Tablet 650 mg PO Q6H MDD 3 GRAMS/24 HOURS PRN (Reason: Pain) Qty: 60 RF: 0 amlodipine 5 mg tablet 5 mg PO DAILY Qty: 30 RF: 0 aspirin 81 mg Tablet,Delayed Release (Dr/Ec) 81 mg PO QAM Qty: 30 RF: 0 isosorbide mononitrate 60 mg tablet extended release 24 hr 60 mg PO QAM Qty: 30 RF: 0 tamsulosin 0.4 mg Capsule 0.4 mg PO HS Qty: 30 RF: 0 albuterol sulfate 90 mcg/actuation HFA aerosol inhaler 2 puff INHALATION Q6H PRN (Reason: Wheezing) Qty: 6.7 RF: 0 Lantus Solostar U-100 Insulin 100 unit/mL (3 mL) insulin pen 12 unit subcut QAM Qty: 3 RF: 0 warfarin 5 mg Tablet 5 mg PO WK RF: 0 Qc Antacid Tabs 750 mg PO TID PRN (Reason: Indigestion) RF: 0 furosemide 40 mg tablet 40 mg PO QAM RF: 0 atorvastatin 40 mg tablet 40 mg PO HS RF: 0 pantoprazole 40 mg tablet,delayed release (DR/EC) 40 mg PO HS RF: 0 Discharge Orders: Discharge Order (Routine); Ordered 10/11/21 Ordered By: Bird Khan/Other Patient Handouts: ED Cherry Catheter, Care Admission Data Admit Date/Time: 10/04/21 20:40 Attending Provider: Bird Braun Admit Provider: Abdiel Richardosn Primary Care Provider: STATE BOBBY LUTZ Other Providers: Abdiel Richardson ; Arjun Verduzco ; David Aranda ; Jean Marie Juares I. ; Emanuel Herrera II ; Comfort Mueller ; Melo Herrera ; Ivan Oquendo ; Timothy Turcios ; [facility] Other Interventions: Discharge Summary Assessment (RN) Last Done: 10/11/21 10:25
== END 2021-10-11 13:03 | disposition home or self-care (01) | DRG 698 ==
LOC: ED 15:45 → SUATTDRO 20:40 → 2W 20:40 → 3E 10-08 13:24
DX: Z79.82 Long term (current) use of aspirin; F03.90 Unspecified dementia, unspecified severity, without behavioral disturbance, psychotic disturbance, mood disturbance, and anxiety; Z66 Do not resuscitate; G93.41 Metabolic encephalopathy; R78.81 Bacteremia; I48.0 Paroxysmal atrial fibrillation; I11.0 Hypertensive heart disease with heart failure; I24.8 Other forms of acute ischemic heart disease; E11.9 Type 2 diabetes mellitus without complications; E78.5 Hyperlipidemia, unspecified; I25.10 Atherosclerotic heart disease of native coronary artery without angina pectoris; Z91.013 Allergy to seafood; Z95.0 Presence of cardiac pacemaker; I50.22 Chronic systolic (congestive) heart failure; T83.511A Infection and inflammatory reaction due to indwelling urethral catheter, initial encounter; Z87.891 Personal history of nicotine dependence; Z88.0 Allergy status to penicillin; M10.9 Gout, unspecified; Z79.01 Long term (current) use of anticoagulants; N12 Tubulo-interstitial nephritis, not specified as acute or chronic

== ENCOUNTER 2021-12-13 12:45 | Inpatient (IN) ==
[2021-12-13] MEDS ORDERED: SODIUM CHLORIDE 0.9% 500 ML IV STA (13:18)
[2021-12-13 13:32] LABS: Basophils # (auto) 0.11 K/uL (0-0.2); Basophils % (auto) 0.9 %; Eosinophils # (auto) 1.13 K/uL (0-0.50); Eosinophils % (auto) 9.6 %; Hematocrit (blood only) 34.2 % (40.1-51.0); Hemoglobin 10.9 g/dl (14.0-18.0); Immature Granulocytes # (auto) 0.05 K/uL (0.00-0.02); Immature Granulocytes % (auto) 0.4 %; Lymphocytes # (auto) 3.15 K/uL (1.2-3.4); Lymphocytes % (auto) 26.8 %; Mean Corpuscular Hemoglobin 28.7 pg (25.0-34.0); Mean Corpuscular Hgb Conc 31.9 g/dL (32.0-36.0); Mean Platelet Volume 10.6 fL (9.4-12.4); Monocytes # (auto) 1.16 K/uL (0.24-0.82); Monocytes % (auto) 9.9 %; Neutrophils # (auto) 6.16 K/uL (1.4-6.5); Neutrophils % (auto) 52.4 %; Platelet Count 297 K/uL (130-400); RDW Coefficient of Variation 15.9 % (11.5-14.5); RDW Standard Deviation 53.1 fL (36.4-46.3); White Blood Count 11.76 K/ul (4.8-10.8)
[2021-12-13 13:43] LABS: INR 2.4 (0.9-1.1); Partial Thromboplastin Ratio 1.4; Partial Thromboplastin Time 38.5 Seconds (21.0-31.0); Prothrombin Time 24.3 Seconds (9.0-12.0)
[2021-12-13 13:45] LABS: Appearance Urine Clear (Clear); Bacteria Urine Automated 2+ (Negative); Bilirubin Urine Negative (Negative); Blood Urine 1+ (Negative); Color Urine Yellow; Epithelial Cell Urine Auto >30 /lpf (0-5); Glucose Urine UA 3+ (Negative); Ketones Urine Negative (Negative); Leukocyte Esterase Urine 1+ (Negative); Nitrite Urine Positive (Negative); Protein Urine Negative (Negative); RBC Urine Automated 0-4 /hpf (0-4); Specific Gravity Urine 1.012 (1.000-1.030); Urobilinogen Urine Negative (Negative)
[2021-12-13 13:52] LABS: Alanine Aminotransferase 9 U/L (7-52); Albumin Globulin Ratio 0.8 (0.9-2); Albumin Level 3.5 gm/dl (3.4-5.0); Alkaline Phosphatase 121 U/L (34-104); Anion Gap 7 (3-11); Aspartate Aminotransferase 12 U/L (13-39); BUN Creatinine Ratio 13.3 (10-20); Bilirubin,Total 0.5 mg/dl (0.2-1.0); Blood Urea Nitrogen 14 mg/dl (6-23); Calcium 8.6 mg/dl (8.5-10.1); Carbon Dioxide 23 mmol/L (21-32); Chloride 100 mmol/L (98-107); Est GFR (African American) 74.1 ml/min; Globulin 4.6 gm/dl (2.5-4.0); Glucose 541 mg/dl (70-99(Fasting)); Lipase 11 U/L (11-82); Potassium 4.9 mmol/L (3.5-5.1); Sodium 130 mmol/L (136-145); Total Protein 8.1 gm/dl (6.0-8.3); Troponin I High Sensitivity 19.4 pg/ml (0-20)
[2021-12-13 14:04] LABS: Base Excess VBG 0.8 mEq/L; HCO3 VBG 25 mmol/L; PCO2 VBG 39 mmHg (38-50); PO2 VBG 51 mmHg; pH VBG 7.42 (7.36-7.41)
--- NOTE | 2021-12-13 14:06 | XRay Report ---
XR chest 1V portable HISTORY: weakness COMPARISON: Chest 10/04/2021. FINDINGS: No pneumothorax. No pleural fusions. The heart remains enlarged. There are poststernotomy c hanges and a left-sided dual-chamber pacemaker. No new focal lung consolidations to suggest pneumonia . Mild pulmonary vascular congestion has improved. IMPRESSION: Cardiomegaly with mild pulmonary vascular congestion. This has slightly improved. ACT 112: Negative or not required by law. Electronically signed by: Neeraj Faith M.D. 12/13/2021 2:05 PM
--- NOTE | 2021-12-13 14:17 | Emergency Department Note ---
Impression & Plan Acute hyperglycemia, Urinary tract infection, Weakness ED Provider Note NAME: ANTOINETTE AHUMADA AGE: 86 SEX: M : 1935 ARRIVES VIA: Ambulance INFORMANT: Patient, ED PROVIDER(S): Chaim Wells DO CHIEF COMPLAINT: Weakness HPI: The patient is an 86-year-old male who has a history of diabetes who presented to the emergency department for an evaluation of weakness. The patient was found to have elevated blood sugar. He was treated with insulin prior to arrival. He is also being treated for urinary tract infection. The p atient himself does not offer many complaints. He does have a history of some underlying dementia. He denies having any headache nausea or vomiting. He denies having any back pain or abdominal pain. He has no chest pain. He states he has been compliant with his outpatient medications. He does report some polyuria and polydipsia. He states that he has been compliant with his outpatient medications. ROS: See above HPI for pertinent positives & negatives. A total of 10 systems reviewed and were otherwise negative. PAST MEDICAL HISTORY: See Below PAST SURGICAL HISTORY: See Below FAMILY HISTORY: See Below SOCIAL HISTORY: See Below HOME MEDICATIONS: See Below ALLERGIES: See Below VITALS: See Below PHYSICAL EXAMINATION: GENERAL: Patient is awake alert in no acute distress patient is resting comfortably and showing no signs of anxiety EYES: The conjunctivae are clear. The pupils are round and reactive. EARS, NOSE, MOUTH AND THROAT: The nose is without any evidence of any deformity. Mucous membranes are moist. Tongue is midline. NECK: The neck is nontender and supple. RESPIRATORY: Normal respiratory effort is noted there is no evidence of wheezing rhonchi or rales CARDIOVASCULAR: Irregular heart sounds are noted auscultation. There is no definite murmur. GASTROINTESTINAL: The abdomen is soft. Abdomen is nontender. MUSCULOSKELETAL/EXTREMITIES: There is no evidence of gross deformity full range of motion is noted in the hips and shoulders. SKIN: Pedal edema was noted bilaterally. NEUROLOGIC: Patient is awake alert and oriented to person place and situation. Strength is symmetric but diminished. MEDICAL DECISION MAKING: The patient is an 86-year-old male who presented to the emergency department for an evaluation of generalized weakness. He was noted to have elevated blood sugar. He was treated with insulin prior to arrival but his blood sugar continues to elevate. I discussed the patient's laboratory and radiographic studies with him. He was treated with IV fluids in the emergency department. He was also treated with IV insulin. He was reevaluated multiple times. I discussed his presentation as well as his findings with his daughter. I also discussed his case with the on-call [facility] hospitalist. They have agreed to evaluate the patient in the emergency department for further management and disposition. Triage Nursing notes reviewed. Prior medical records reviewed Vital Signs: reviewed and remarkable for elevated blood pressure. Differential diagnosis: Infection, dehydration, metabolic abnormality, hypo/hyperglycemia, electrolyte disturbance, anemia, hypoxia, cardiac sources, intracerebral event, toxicologic, neurologic, as well as other pathologies. ER treatment provided: See below Diagnostics interpreted by me: ECG: EKG was obtained in the emergency department. My interpretation is ventricular paced rhythm at 66 bpm. [place] PVCs were noted. Left bundle branch block pattern was noted. This was compared to a tracing from October 04, 2021. No changes were noted. Cardiac Monitoring: An order was placed for continuous cardiac monitoring. The monitor shows a rate of 80 bpm with paced rhythm. Laboratory studies: As stated above and show below. Imaging studies: See below Consultation(s): I discussed this case with Dr. Mosher who is on-call for the [facility] group. They will evaluate the patient in the emergency department. Past Med/Surg History Medical History ACS (acute coronary syndrome) CAD (coronary artery disease) Chronic anticoagulation Dementia DM type 2 (diabetes mellitus, type 2) DNR (do not resuscitate) Dyslipidemia Dyspnea on exertion Gout History of cerebral hemorrhage HTN (hypertension) Pacemaker Pancreatic cancer Paroxysmal atrial fibrillation Sinus node dysfunction SSS (sick sinus syndrome) Surgical History H/O arthroscopic knee surgery H/O colonoscopy H/O esophagogastroduodenoscopy H/O inguinal hernia repair History of pancreatectomy "07/15/[place] [facility] [place]P CABG x 1 S/P coronary artery stent placement "03/29/03 cardiac cath: RCA - stent of 90% lesion, L circ obtuse kenneth - stent of 80% lesion " S/P splenectomy S/P tonsillectomy and adenoidectomy Family History Other Family history non-contributory Social History Smoking Status: Never smoker Tobacco Type: Cigarettes Hx Alcohol Use: No Hx Substance Use: No Preferred Language: Irish Communication Ability: Effective Mechanist Required: No Beliefs That Will Affect Care: None marital status: / Current Living Situation: Skilled Nursing Current Living Situation Comment: Assisted living current occupational status: retired How many Children do You have: 2 Feels Safe at Home: Yes Assistive Devices: Walker Allergies Allergies Allergy/AdvReac Type Severity Reaction Status Date / Time shellfish derived Allergy Severe anaphylaxis Verified 10/15/21 17:16 clopidogrel Allergy Intermediate INTERNAL Verified 10/15/21 17:16 HIVES Penicillins Allergy Intermediate HIVES Verified 10/15/21 17:16 Home Meds Home Medications Medication Instructions Recorded Confirmed nitroglycerin 0.4 mg sublingual 0.4 mg sublingual UD PRN Chest Pain 09/04/18 10/15/21 tablet (Nitrostat) Qc Antacid Tabs 750 mg PO TID PRN Indigestion 09/04/21 10/15/21 atorvastatin 40 mg tablet 40 mg PO HS 09/04/21 10/15/21 furosemide 40 mg tablet 40 mg PO QAM 09/04/21 10/15/21 pantoprazole 40 mg tablet,delayed 40 mg PO HS 09/04/21 10/15/21 release warfarin 5 mg tablet 5 mg PO WK 09/04/21 10/15/21 warfarin 2.5 mg tablet (Jantoven) 2.5 mg PO 6XWK 10/04/21 10/15/21 Previous Rx's Medication Instructions Recorded acetaminophen 325 mg tablet 650 mg PO Q6H PRN Pain #60 tabs 08/21/21 (Tylenol) albuterol sulfate 90 mcg/actuation 2 puff inhalation Q6H PRN Wheezing 08/21/21 aerosol inhaler #6.7 grams amlodipine 5 mg tablet 5 mg PO DAILY #30 tabs 08/21/21 aspirin 81 mg tablet,delayed 81 mg PO QAM #30 tabs 08/21/21 release insulin glargine 100 unit/mL (3 12 unit (0.12 mL) subcut QAM #3 08/21/21 mL) subcutaneous pen (Lantus Boxes Solostar U-100 Insulin) isosorbide mononitrate 60 mg 60 mg PO QAM #30 tabs 08/21/21 tablet,extended release 24 hr losartan 50 mg tablet 50 mg PO QAM #30 tabs 08/21/21 sennosides 8.6 mg tablet (Senokot) 8.6 - 17.2 mg PO HS PRN 08/21/21 Constipation #30 tabs tamsulosin 0.4 mg capsule 0.4 mg PO HS #30 caps 08/21/21 lidocaine 5 % topical patch 30 patch transdermal QAM #30 ea 10/11/21 dutasteride 0.5 mg capsule 0.5 mg PO DAILY #30 caps 10/20/21 methenamine hippurate 1 gram tablet 1 g PO DAILY #30 tabs 10/22/21 clindamycin HCl 300 mg capsule 600 mg PO ONCE #4 caps 11/25/21 Results & Data (ED) Vital Signs Vital Signs - 24 hr 12/13/21 12:58 12/13/21 12:54 Temperature 36.5 C Temperature Source Temporal Artery Scan Pulse Rate 80 Pulse Rhythm Irregular Respiratory Rate 20 Respiratory Effort / Characteristics Non-Labored Respiratory Depth Normal Respiratory Pattern Regular Blood Pressure 150/78 H Blood Pressure Mean 102 Blood Pressure Position Lying Pulse Oximetry 97 99 Oxygen Delivery Method Room Air Room Air Sepsis Recent Fever Within 48 Hours No Sepsis New/Unexplained Change in Mental Status N/A Sepsis Action Taken by Nursing No Action Required Home Medications Current Medication List: was personally reviewed by me Laboratory Data Attestation: I reviewed the patient's lab results. Result diagrams: 12/13/21 12:30 12/13/21 12:30 Lab Results 12/13/21 12/13/21 12/13/21 Range/Units 12:30 12:30 12:30 WBC 11.76 H (4.8-10.8) K/ul RBC 3.80 L (4.63-6.08) M/uL Hgb 10.9 L (14.0-18.0) g/dl Hct 34.2 L (40.1-51.0) % MCV 90.0 (80.0-100.0) fL MCH 28.7 (25.0-34.0) pg MCHC 31.9 L (32.0-36.0) g/dL RDW Std Deviation 53.1 H (36.4-46.3) fL RDW Coeff of Trevon 15.9 H (11.5-14.5) % Plt Count 297 (130-400) K/uL MPV 10.6 (9.4-12.4) fL Immature Gran % (Auto) 0.4 % Neut % (Auto) 52.4 % Lymph % (Auto) 26.8 % [place] % (Auto) 9.9 % Eos % (Auto) 9.6 % Baso % (Auto) 0.9 % Neut # (Auto) 6.16 (1.4-6.5) K/uL Lymph # (Auto) 3.15 (1.2-3.4) K/uL [place] # (Auto) 1.16 H (0.24-0.82) K/uL Eos # (Auto) 1.13 H (0-0.50) K/uL Baso # (Auto) 0.11 (0-0.2) K/uL Immature Gran # (Auto) 0.05 H (0.00-0.02) K/uL PT 24.3 H (9.0-12.0) Seconds INR 2.4 H (0.9-1.1) APTT 38.5 H (21.0-31.0) Seconds PTT Ratio 1.4 VBG pH (7.36-7.41) VBG pCO2 (38-50) mmHg VBG pO2 mmHg VBG HCO3 mmol/L VBG O2 Saturation % VBG Base Excess mEq/L Sodium 130 L (136-145) mmol/L Potassium 4.9 (3.5-5.1) mmol/L Chloride 100 (98-107) mmol/L Carbon Dioxide 23 (21-32) mmol/L Anion Gap 7 (3-11) BUN 14 (6-23) mg/dl Creatinine 1.05 (0.6-1.4) mg/dl Est Cr Clr Drug Dosing Not Reportable Est GFR ( Amer) 74.1 ml/min Est GFR (Non-Af Amer) 64.0 ml/min BUN/Creatinine Ratio 13.3 (10-20) Glucose 541 H* (70-99(Fasting)) mg/dl Calcium 8.6 (8.5-10.1) mg/dl Total Bilirubin 0.5 (0.2-1.0) mg/dl AST 12 L (13-39) U/L ALT 9 (7-52) U/L Alkaline Phosphatase 121 H (34-104) U/L Troponin I High Sens 19.4 (0-20) pg/ml Total Protein 8.1 (6.0-8.3) gm/dl Albumin 3.5 (3.4-5.0) gm/dl Globulin 4.6 H (2.5-4.0) gm/dl Albumin/Globulin Ratio 0.8 L (0.9-2) Lipase 11 (11-82) U/L Urine Color Urine Appearance (Clear) Urine pH (4.5-7.5) Ur Specific [place] (1.000-1.030) Urine Protein (Negative) Urine Glucose (UA) (Negative) Urine Ketones (Negative) Urine Blood (Negative) Urine Nitrite (Negative) Urine Bilirubin (Negative) Urine Urobilinogen (Negative) Ur Leukocyte Esterase (Negative) Urine WBC (Auto) (0-5) /hpf Urine RBC (Auto) (0-4) /hpf U Hyaline Cast (Auto) (0-5) /lpf U Epithel Cells (Auto) (0-5) /lpf Urine Bacteria (Auto) (Negative) Ur Renal Epithelial Cell 12/13/21 12/13/21 Range/Units 13:39 13:47 WBC (4.8-10.8) K/ul RBC (4.63-6.08) M/uL Hgb (14.0-18.0) g/dl Hct (40.1-51.0) % MCV (80.0-100.0) fL MCH (25.0-34.0) pg MCHC (32.0-36.0) g/dL RDW Std Deviation (36.4-46.3) fL RDW Coeff of Trevon (11.5-14.5) % Plt Count (130-400) K/uL MPV (9.4-12.4) fL Immature Gran % (Auto) % Neut % (Auto) % Lymph % (Auto) % [place] % (Auto) % Eos % (Auto) % Baso % (Auto) % Neut # (Auto) (1.4-6.5) K/uL Lymph # (Auto) (1.2-3.4) K/uL [place] # (Auto) (0.24-0.82) K/uL Eos # (Auto) (0-0.50) K/uL Baso # (Auto) (0-0.2) K/uL Immature Gran # (Auto) (0.00-0.02) K/uL PT (9.0-12.0) Seconds INR (0.9-1.1) APTT (21.0-31.0) Seconds PTT Ratio VBG pH 7.42 H (7.36-7.41) VBG pCO2 39 (38-50) mmHg VBG pO2 51 mmHg VBG HCO3 25 mmol/L VBG O2 Saturation 86.0 % VBG Base Excess 0.8 mEq/L Sodium (136-145) mmol/L Potassium (3.5-5.1) mmol/L Chloride (98-107) mmol/L Carbon Dioxide (21-32) mmol/L Anion Gap (3-11) BUN (6-23) mg/dl Creatinine (0.6-1.4) mg/dl Est Cr Clr Drug Dosing Est GFR ( Amer) ml/min Est GFR (Non-Af Amer) ml/min BUN/Creatinine Ratio (10-20) Glucose (70-99(Fasting)) mg/dl Calcium (8.5-10.1) mg/dl Total Bilirubin (0.2-1.0) mg/dl AST (13-39) U/L ALT (7-52) U/L Alkaline Phosphatase (34-104) U/L Troponin I High Sens (0-20) pg/ml Total Protein (6.0-8.3) gm/dl Albumin (3.4-5.0) gm/dl Globulin (2.5-4.0) gm/dl Albumin/Globulin Ratio (0.9-2) Lipase (11-82) U/L Urine Color Yellow Urine Appearance Clear (Clear) Urine pH 5.0 (4.5-7.5) Ur Specific [place] 1.012 (1.000-1.030) Urine Protein Negative (Negative) Urine Glucose (UA) 3+ H (Negative) Urine Ketones Negative (Negative) Urine Blood 1+ H (Negative) Urine Nitrite Positive A (Negative) Urine Bilirubin Negative (Negative) Urine Urobilinogen Negative (Negative) Ur Leukocyte Esterase 1+ H (Negative) Urine WBC (Auto) 10-30 H (0-5) /hpf Urine RBC (Auto) 0-4 (0-4) /hpf U Hyaline Cast (Auto) 1-5 (0-5) /lpf U Epithel Cells (Auto) >30 H (0-5) /lpf Urine Bacteria (Auto) 2+ H (Negative) Ur Renal Epithelial Cell Not Reportable Administered Medications Discontinued Medications Sodium Chloride (Nss) 500 mls @ 999 mls/hr IV .Q31M STA Stop: 12/13/21 13:48 Last Infusion: 12/13/21 14:11 Dose: 0 mls/hr Documented By: Admin: 12/13/21 13:31 Dose: 999 mls/hr Documented By: AM Imaging Data Radiologist's Impression: Chest X-Ray 12/13/21 13:19 XR chest 1V portable HISTORY: weakness COMPARISON: Chest 10/04/2021. FINDINGS: No pneumothorax. No pleural fusions. The heart remains enlarged. There are poststernotomy changes and a left-sided dual-chamber pacemaker. No new focal lung consolidations to suggest pneumonia. Mild pulmonary vascular congestion has improved. IMPRESSION: Cardiomegaly with mild pulmonary vascular congestion. This has slightly improved. ACT 112: Negative or not required by law. Electronically signed by: Neeraj Faith M.D. 12/13/2021 2:05 PM Discharge Plan Visit Data Chief Complaint: Hyperglycemia Stated Complaint: HYPERGLYCEMIA ED Provider: Chaim Wells Discharge Problem: Acute hyperglycemia, Urinary tract infection, Weakness Patient Disposition: Being Evaluated by Hospitalist Forms Stand Alone Forms: My [facility] Prescriptions Prescriptions: No Action methenamine hippurate 1 gram tablet 1 g PO DAILY Qty: 30 8RF clindamycin HCl 300 mg capsule 600 mg PO ONCE Qty: 4 2RF Rx Instructions: TAKE 2 300MG TABLETS 1 HOUR BEFORE DENTAL PROCEDURE dutasteride 0.5 mg capsule 0.5 mg PO DAILY Qty: 30 11RF nitroglycerin [Nitrostat] 0.4 mg Tablet, Sublingual 0.4 mg sublingual UD PRN (Reason: Chest Pain) Rx Instructions: 1 EVERY 5 MINUTES NEEDED WITH CHEST PAIN UP TO 3 DOSES IN 15 MINUTES warfarin [Jantoven] 2.5 mg tablet 2.5 mg PO 6XWK Rx Instructions: TAKES AT 1700 DAILY. TAKES EVERY DAY EXCEPT WEDNESDAYS. lidocaine 5 % Adhesive Patch,Medicated 30 patch transdermal QAM Qty: 30 0RF losartan 50 mg tablet 50 mg PO QAM Qty: 30 0RF sennosides [Senokot] 8.6 mg tablet 8.6 - 17.2 mg PO HS PRN (Reason: Constipation) Qty: 30 0RF acetaminophen [Tylenol] 325 mg Tablet 650 mg PO Q6H MDD 3 GRAMS/24 HOURS PRN (Reason: Pain) Qty: 60 0RF amlodipine 5 mg tablet 5 mg PO DAILY Qty: 30 0RF aspirin 81 mg Tablet,Delayed Release (Dr/Ec) 81 mg PO QAM Qty: 30 0RF isosorbide mononitrate 60 mg tablet extended release 24 hr 60 mg PO QAM Qty: 30 0RF tamsulosin 0.4 mg Capsule 0.4 mg PO HS Qty: 30 0RF albuterol sulfate 90 mcg/actuation HFA aerosol inhaler 2 puff INHALATION Q6H PRN (Reason: Wheezing) Qty: 6.7 0RF Lantus Solostar U-100 Insulin 100 unit/mL (3 mL) insulin pen 12 unit subcut QAM Qty: 3 0RF warfarin 5 mg Tablet 5 mg PO WK Rx Instructions: TAKES AT 1700. TAKES ON WEDNESDAYS ONLY Qc Antacid Tabs 750 mg PO TID PRN (Reason: Indigestion) furosemide 40 mg tablet 40 mg PO QAM atorvastatin 40 mg tablet 40 mg PO HS pantoprazole 40 mg tablet,delayed release (DR/EC) 40 mg PO HS Referrals Referrals: [facility] [Primary Care Provider] -
[2021-12-13] MEDS ORDERED: NovoLIN-R INSULIN PER UNIT CHARGE IV STA (14:34)
[2021-12-13] MEDS ORDERED: cefTRIAXone SODIUM 2,000 MG/70 ML BAG IV STA (14:34)
[2021-12-13] MEDS ORDERED: SODIUM CHLORIDE 0.9% 500 ML IV ONE (14:34)
--- NOTE | 2021-12-13 15:38 | History & Physical Report ---
Date of Service December 13, 2021 Assessment & Plan (1) Weakness: Plan: Significant complicated past medical history and was sent in from [facility] with increasing weakness Patient remains free of any distress at rest or any other symptoms at rest noted to have very high blood sugar of more than 500 and possible recurrent UTI (2) Acute hyperglycemia: Plan: History of diabetes on insulin Blood sugar remains very high-received intravenous insulin Will need to adjust insulin doses Put him on sliding scale for now (3) Catheter-associated urinary tract infection: Plan: Recurrent UTI UA suggestive of infection Ceftriaxone intravenously has been started Cultures were taken (4) [facility] (current) use of anticoagulants: Plan: Has paroxysmal atrial fibrillation, sick sinus syndrome with a pacemaker Has been on Coumadin We will continue monitor INR (5) HTN (hypertension): Plan: Seems to be controlled continue current medications (6) Dyslipidemia: Plan: Continue current medicine (7) DM type 2 (diabetes mellitus, type 2): (8) Paroxysmal atrial fibrillation: (9) History of pancreatectomy: (10) Acute hyponatremia: Plan: Sodium level seems to 130 Corrected sodium will be around normal (11) Dementia: Plan Has significant dementia DVT prophylaxis On Coumadin CODE STATUS Reviewed previous record Discussed with the patient DNR/DNI History of Present Illness Chief Complaint: Generalized weakness, recurrent UTI and very high blood sugar Primary Care Provider: [facility] Is an 86 years old male from [facility] with significant past medical history including Alzheimer's dementia, diabetes on insulin, paroxysmal atrial fibrillation with sick sinus syndrome status post pacemaker, hypertension, chronic systolic CHF, CAD status post CABG and history of pancreatic cancer with other medical condition as mentioned below apparently was sent in from [facility] with increasing weakness and tiredness and noted to have blood sugar very high. He has been having recurrent UTI and recently finished a course of antibiotic and he has been on clindamycin as per the note. The patient himself does not have any symptoms and he has dementia and cannot express himself well but does not look to be in any any distress. His labs are remarkable for high sugar of more than 500 and UA suggestive of infection. He received intravenous insulin and also intravenous ceftriaxone and was admitted to the medical telemetry unit for continuation of care. Allergies Allergy/AdvReac Type Severity Reaction Status Date / Time shellfish derived Allergy Severe anaphylaxis Verified 10/15/21 17:16 clopidogrel Allergy Intermediate INTERNAL Verified 10/15/21 17:16 HIVES Penicillins Allergy Intermediate HIVES Verified 10/15/21 17:16 Home Medications Medication Instructions Recorded Confirmed Type nitroglycerin 0.4 mg sublingual 0.4 mg sublingual UD PRN Chest Pain 09/04/18 10/15/21 History tablet (Nitrostat) acetaminophen 325 mg tablet 650 mg PO Q6H PRN Pain #60 tabs 08/21/21 10/15/21 Rx (Tylenol) albuterol sulfate 90 mcg/actuation 2 puff inhalation Q6H PRN Wheezing 08/21/21 10/15/21 Rx aerosol inhaler #6.7 grams amlodipine 5 mg tablet 5 mg PO DAILY #30 tabs 08/21/21 10/15/21 Rx aspirin 81 mg tablet,delayed 81 mg PO QAM #30 tabs 08/21/21 10/15/21 Rx release insulin glargine 100 unit/mL (3 12 unit (0.12 mL) subcut QAM #3 08/21/21 10/15/21 Rx mL) subcutaneous pen (Lantus Boxes Solostar U-100 Insulin) isosorbide mononitrate 60 mg 60 mg PO QAM #30 tabs 08/21/21 10/15/21 Rx tablet,extended release 24 hr losartan 50 mg tablet 50 mg PO QAM #30 tabs 08/21/21 10/15/21 Rx sennosides 8.6 mg tablet (Senokot) 8.6 - 17.2 mg PO HS PRN 08/21/21 10/15/21 Rx Constipation #30 tabs tamsulosin 0.4 mg capsule 0.4 mg PO HS #30 caps 08/21/21 10/15/21 Rx Qc Antacid Tabs 750 mg PO TID PRN Indigestion 09/04/21 10/15/21 History atorvastatin 40 mg tablet 40 mg PO HS 09/04/21 10/15/21 History furosemide 40 mg tablet 40 mg PO QAM 09/04/21 10/15/21 History pantoprazole 40 mg tablet,delayed 40 mg PO HS 09/04/21 10/15/21 History release warfarin 5 mg tablet 5 mg PO WK 09/04/21 10/15/21 History warfarin 2.5 mg tablet (Jantoven) 2.5 mg PO 6XWK 10/04/21 10/15/21 History lidocaine 5 % topical patch 30 patch transdermal QAM #30 ea 10/11/21 10/15/21 Rx dutasteride 0.5 mg capsule 0.5 mg PO DAILY #30 caps 10/20/21 10/20/21 Rx methenamine hippurate 1 gram tablet 1 g PO DAILY #30 tabs 10/22/21 Rx clindamycin HCl 300 mg capsule 600 mg PO ONCE #4 caps 11/25/21 Rx Past Med/Surg History Medical History (Updated 12/13/21 @ 15:41 by Adam Mosher MD) ACS (acute coronary syndrome) CAD (coronary artery disease) Chronic anticoagulation Dementia DM type 2 (diabetes mellitus, type 2) DNR (do not resuscitate) Dyslipidemia Dyspnea on exertion Gout History of cerebral hemorrhage HTN (hypertension) Pacemaker Pancreatic cancer Paroxysmal atrial fibrillation Sinus node dysfunction SSS (sick sinus syndrome) Surgical History H/O arthroscopic knee surgery H/O colonoscopy H/O esophagogastroduodenoscopy H/O inguinal hernia repair History of pancreatectomy "07/15/2010 [place] [facility] [place]/P CABG x 1 S/P coronary artery stent placement "03/29/03 cardiac cath: RCA - stent of 90% lesion, L circ obtuse kenneth - stent of 80% lesion " S/P splenectomy S/P tonsillectomy and adenoidectomy Family History Other Family history non-contributory Social History Smoking Status: Never smoker Tobacco Type: Cigarettes Hx Alcohol Use: No Hx Substance Use: No Preferred Language: Turkmen Communication Ability: Effective Screen Machine Operator Required: No Beliefs That Will Affect Care: None marital status: / Current Living Situation: Prison Current Living Situation Comment: Assisted living current occupational status: retired How many Children do You have: 2 Feels Safe at Home: Yes Assistive Devices: Walker Review of Systems Review of Systems: Unobtainable due to cognitive status Physical Exam Physical Exam: Lying in bed without any acute distress Constitutional: well developed and well nourished; not ill appearing Eyes: PERRL, conjunctivae normal, anicteric sclerae ENMT: external ear and nose normal, oropharynx normal Neck: trachea midline, no thyromegaly Respiratory: no respiratory distress Auscultation: lungs clear to auscultation bilaterally Cardiovascular: Rate/Rhythm: + irregularly irregular Heart Sounds: normal S1, normal S2 and + murmur (2/6 ESM over precordium) Extremities: + edema (Trace to 1+ edema bilaterally) Gastrointestinal (Abdomen): Inspection/Auscultation: normal bowel sounds; abdomen not distended Percussion/Palpation: abdomen soft; abdomen nontender Musculoskeletal: No acute arthritis in any joint Neurologic: Alert and awake. Denies any symptoms. Has significant dementia Results & Data Results & Data ([facility]) Vital Signs (Past 12 Hours) Vital Signs Temp Pulse Resp BP Pulse Ox O2 Del Method 12/13/21 12:54 99 Room Air 12/13/21 12:58 36.5 C 80 20 150/78 H 97 Room Air Laboratory Results Short CBC 12/13/21 Range/Units 12:30 WBC 11.76 H (4.8-10.8) K/ul Hgb 10.9 L (14.0-18.0) g/dl Hct 34.2 L (40.1-51.0) % Plt Count 297 (130-400) K/uL BMP 12/13/21 12:30 Sodium 130 L Potassium 4.9 Chloride 100 Carbon Dioxide 23 BUN 14 Creatinine 1.05 Glucose 541 H* Calcium 8.6 Liver Function 12/13/21 Range/Units 12:30 Total Bilirubin 0.5 (0.2-1.0) mg/dl AST 12 L (13-39) U/L ALT 9 (7-52) U/L Alkaline Phosphatase 121 H (34-104) U/L Albumin 3.5 (3.4-5.0) gm/dl Urine 12/13/21 Range/Units 13:39 Urine Color Yellow Urine Appearance Clear (Clear) Urine pH 5.0 (4.5-7.5) Ur Specific [place] 1.012 (1.000-1.030) Urine Protein Negative (Negative) Urine Glucose (UA) 3+ H (Negative) Code Status & VTE Plan VTE Prophylaxis Plan VTE Prophylaxis will be ordered: Yes (1) Dementia Dementia behavioral disturbance: without behavioral disturbance Dementia type: unspecified type Qualified Code(s): F03.90 - Unspecified dementia without behavioral disturbance
[2021-12-13] MEDS: SODIUM CHLORIDE 0.9% 1000ML 1,000 ML IV SCH (17:16)
[2021-12-13] MEDS ORDERED: ACETAMINOPHEN 325 MG TAB PO PRN (18:34)
[2021-12-13] MEDS ORDERED: NITROGLYCERIN SL 0.4 MG/TAB TAB SL PRN (18:34)
[2021-12-13] MEDS ORDERED: SENNA 8.6 MG TAB PO PRN (18:34)
[2021-12-13] MEDS ORDERED: ALBUTEROL HFA 8 GM INHALER INH PRN (18:34)
[2021-12-13] MEDS: INSULIN ASPART PER UNIT SC SCH ×2 (19:20→22:19)
[2021-12-13] MEDS ORDERED: CALCIUM CARBONATE 500 MG CHEWABLE TAB PO PRN ×2 (19:37→21:00)
[2021-12-13] MEDS ORDERED: PHARMACY GLYCEMIC MGMT CONSULT PRN (19:46)
[2021-12-13] MEDS: ATORVASTATIN 40 MG TAB PO SCH (22:11)
[2021-12-13] MEDS: PANTOprazole 40 MG TAB PO SCH (22:12)
[2021-12-13] MEDS: TAMSULOSIN HCL 0.4 MG CAP PO SCH (22:12)
[2021-12-14] MEDS: INSULIN ASPART PER UNIT SC SCH ×6 (00:08→21:49)
[2021-12-14] MEDS: SODIUM CHLORIDE 0.9% 1000ML 1,000 ML IV SCH ×2 (05:31→17:22)
[2021-12-14 06:08] LABS: Basophils # (auto) 0.14 K/uL (0-0.2); Basophils % (auto) 1.1 %; Eosinophils # (auto) 1.76 K/uL (0-0.50); Eosinophils % (auto) 14.3 %; Hematocrit (blood only) 30.3 % (40.1-51.0); Immature Granulocytes # (auto) 0.03 K/uL (0.00-0.02); Immature Granulocytes % (auto) 0.2 %; Lymphocytes # (auto) 2.92 K/uL (1.2-3.4); Lymphocytes % (auto) 23.7 %; Mean Corpuscular Hemoglobin 28.8 pg (25.0-34.0); Mean Corpuscular Volume 87.3 fL (80.0-100.0); Monocytes # (auto) 1.19 K/uL (0.24-0.82); Monocytes % (auto) 9.7 %; Neutrophils # (auto) 6.26 K/uL (1.4-6.5); Platelet Count 264 K/uL (130-400); RDW Coefficient of Variation 15.6 % (11.5-14.5); Red Blood Count 3.47 M/uL (4.63-6.08)
[2021-12-14 06:14] LABS: INR 2.3 (0.9-1.1); Prothrombin Time 23.3 Seconds (9.0-12.0)
[2021-12-14 06:33] LABS: Calcium 8.3 mg/dl (8.5-10.1); Creatinine Clr Calc Pharmacy 53.9 ml/min; Est GFR (African American) 71.6 ml/min; Est GFR (Non-African American) 61.8 ml/min; Potassium 4.3 mmol/L (3.5-5.1)
[2021-12-14 06:47] LABS: Estimated Average Glucose 278 mg/dl; Hemoglobin A1C 11.3 % (4.5-5.6)
[2021-12-14] MEDS: ISOSORBIDE MONO EXTENDED REL 60 MG TABCR PO SCH (08:28)
[2021-12-14] MEDS: LOSARTAN POTASSIUM 50 MG TAB PO SCH (08:28)
[2021-12-14] MEDS: amLODIPine BESYLATE 5 MG TAB PO SCH (08:28)
[2021-12-14] MEDS: ASPIRIN 81 MG ECTAB PO SCH (08:28)
[2021-12-14] MEDS ORDERED: METHENAMINE HIPPURATE 1 GM TAB PO SCH (09:00)
[2021-12-14] MEDS ORDERED: LIDOCAINE 5% 1 PATCH TD SCH (09:00)
--- NOTE | 2021-12-14 12:37 | Pharmacy Report ---
Pharmacy Glycemic Short Note 2 - Date of Service December 14, 2021 - Glycemic Short BSG Results (Last 24 hours): 12/13/21 12/13/21 12/13/21 12:30 16:15 18:39 Glucose 541 H* POC Glucose 249 H 191 H 12/13/21 12/14/21 12/14/21 21:43 00:05 04:05 Glucose POC Glucose 135 H 121 H 128 H 12/14/21 12/14/21 12/14/21 05:49 08:32 11:04 Glucose 137 H POC Glucose 152 H 183 H OUTPATIENT ANTIDIABETIC REGIMEN: * Lantus 14 units qAM * Metformin * Novolog * HbA1C = 11.3% (12/14/21) ASSESSMENT: * Mr Little is an 86 y/o with T2DM who presents with weakness and hyperglycemia. * Patient's BSG on admission was 541 and he received 10 units of IV insulin. Subsequent BSGs were 249 and 135 mg/dL. Overnight BSGs were 121-128 mg/dl. Fasting BSG today is 152 mg/dL. * Per previous admission, patient received Lantus 12 units daily + Novolog CF 30 CR 15 with excellent success. Will replicate that this admission. * AM Lantus today (12/14/21) not given until lunch so lung BSG slightly elevated. Patient also did not receive AM Novolog. PLAN FOR INPATIENT GLYCEMIC CONTROL: * Hold outpatient oral diabetes medications * Basal insulin * Lantus 12 units SQ daily * Bolus insulin * NovoLog per scale ACHS or Q6hrs while NPO * Goal Range: Low 110 mg/dL - High 140 mg/dL * Correction Factor: 25 mg/dL/unit * Nutritional / Prandial insulin per carb ratio of 1 unit per 9 grams CHO consumed
[2021-12-14] MEDS: LANTUS PER UNIT CHARGE SQ SCH (12:46)
[2021-12-14] MEDS: LIDOCAINE 5% 1 PATCH TD SCH (12:48)
[2021-12-14] MEDS ORDERED: cefTRIAXone SODIUM 2,000 MG in DEXTROSE 5% 50 ML IV SCH (14:00)
[2021-12-14] MEDS ORDERED: cefTRIAXone SODIUM 1,000 MG in DEXTROSE 5% 50 ML IV SCH (14:00)
--- NOTE | 2021-12-14 14:10 | Electrocardiogram Report ---
Test Reason : Blood Pressure : / mmHG Vent. Rate : 066 BPM Atrial Rate : 069 BPM P-R Int : 000 ms QRS Dur : 204 ms QT Int : 502 ms P-R-T Axes : 000 -76 088 degrees QTc Int : 526 ms Poor data quality, interpretation may be adversely affected Ventricular-paced rhythm with frequent Premature ventricular complexes Underlying atrial fibrillation Abnormal ECG When compared with ECG of 04-OCT-2021 18:40, No significant change was found Confirmed by Alden Khan ([id number]) on 12/14/2021 2:09:48 PM Referred By: REFERRED SELF Confirmed By:Alden Khan
[2021-12-14] MEDS ORDERED: WARFARIN SOD 2.5 MG TAB PO SCH (17:00)
--- NOTE | 2021-12-14 19:05 | Hospitalist Progress Note ---
Date of Service December 14, 2021 Assessment & Plan (1) Weakness: Plan: Per admitting service notes with addendum Significant complicated past medical history and was sent in from [facility] with increasing weakness Patient remains free of any distress at rest or any other symptoms at rest noted to have very high blood sugar of more than 500 and possible recurrent UTI 12/14 Patient denies weakness PT/OT evaluation (2) Acute hyperglycemia: Plan: History of diabetes on insulin Blood sugar remains very high-received intravenous insulin Will need to adjust insulin doses Put him on sliding scale for now 12/14 BSG improved Insulin Lantus and ISS Much improved (3) Catheter-associated urinary tract infection: Plan: Recurrent UTI UA suggestive of infection Ceftriaxone intravenously has been started Cultures were taken 12/14 Follow-up urine culture (4) [facility] (current) use of anticoagulants: Plan: Has paroxysmal atrial fibrillation, sick sinus syndrome with a pacemaker Has been on Coumadin We will continue monitor INR 12/14 INR 2.3 (5) HTN (hypertension): Plan: Seems to be controlled continue current medications (6) Dyslipidemia: Plan: Continue current medicine (7) DM type 2 (diabetes mellitus, type 2): (8) Paroxysmal atrial fibrillation: (9) History of pancreatectomy: (10) Acute hyponatremia: Plan: Sodium 136 (11) Dementia: Plan Has significant dementia DVT prophylaxis On Coumadin CODE STATUS Reviewed previous record Discussed with the patient DNR/DNI Admission and Anticipated Discharge Date Admission Date: December 13, 2021 Subjective Follow-up for weakness, UTI, etc. Sitting up in bed, comfortable, not in distress Oriented x3 States he feels better compared to yesterday Denies abdominal pain, flank pain, problems with urination No fevers or chills, nausea vomiting no chest pain, dyspnea, palpitations, dizziness Review of Systems Review of Systems: all noted and negative except for above Physical Exam Physical Exam: General- oriented x 2-3, not in distress, speaks in sentences with no effort or accessory muscle use Head- atraumatic Eyes- PERRL, EOMI, anicteric ENT- oropharynx clear Neck- supple, no JVD, no adenopathy, no thyromegaly; carotids +2/2, no bruits appreciated Lungs- clear to auscultation bilaterally, no rales/wheezes Heart- normal rate, regular rhythm; no murmur, no gallop, no rub appreciated Abdomen- normal bowel sounds, nondistended, soft, nontender, no masses or hepatosplenomegaly Extremities- no pretibial edema, no calf tenderness; peripheral pulses intact Neuro- alert, oriented x 3; CN 2-12 grossly intact; motor 5/5 bilaterally;sensation 100% on all extremities; no other gross focal neurologic deficits Skin- warm & dry Results & Data Results & Data ([facility]) Vital Signs (Past 12 Hours) Vital Signs Temp Pulse Pulse Resp BP Pulse Ox O2 Del Method 12/14/21 16:00 69 12/14/21 15:47 36.4 C L 65 18 153/79 H 94 Room Air 12/14/21 09:30 36.8 C 65 18 138/65 94 Room Air 12/14/21 10:55 36.3 C L 68 18 134/67 97 Room Air 12/14/21 08:30 67 18 148/85 H 95 Room Air all noted and reviewed including below (1) Dementia Dementia behavioral disturbance: without behavioral disturbance Dementia type: unspecified type Qualified Code(s): F03.90 - Unspecified dementia without behavioral disturbance
[2021-12-14] MEDS: ATORVASTATIN 40 MG TAB PO SCH (21:48)
[2021-12-14] MEDS: TAMSULOSIN HCL 0.4 MG CAP PO SCH (21:48)
[2021-12-14] MEDS: PANTOprazole 40 MG TAB PO SCH (21:49)
[2021-12-15 06:15] LABS: Basophils # (auto) 0.12 K/uL (0-0.2); Basophils % (auto) 1.1 %; Eosinophils # (auto) 1.55 K/uL (0-0.50); Eosinophils % (auto) 14.5 %; Hematocrit (blood only) 31.2 % (40.1-51.0); Hemoglobin 10.3 g/dl (14.0-18.0); Immature Granulocytes # (auto) 0.04 K/uL (0.00-0.02); Immature Granulocytes % (auto) 0.4 %; Lymphocytes # (auto) 2.52 K/uL (1.2-3.4); Lymphocytes % (auto) 23.6 %; Mean Corpuscular Hemoglobin 28.9 pg (25.0-34.0); Mean Corpuscular Volume 87.4 fL (80.0-100.0); Mean Platelet Volume 10.2 fL (9.4-12.4); Monocytes % (auto) 11.2 %; Neutrophils # (auto) 5.25 K/uL (1.4-6.5); Neutrophils % (auto) 49.2 %; Platelet Count 261 K/uL (130-400); RDW Coefficient of Variation 15.7 % (11.5-14.5); RDW Standard Deviation 50.3 fL (36.4-46.3); Red Blood Count 3.57 M/uL (4.63-6.08); White Blood Count 10.68 K/ul (4.8-10.8)
[2021-12-15 06:35] LABS: INR 1.7 (0.9-1.1); Prothrombin Time 17.2 Seconds (9.0-12.0)
[2021-12-15 06:40] LABS: BUN Creatinine Ratio 18.2 (10-20); Calcium 8.4 mg/dl (8.5-10.1); Creatinine Clr Calc Pharmacy 58.5 ml/min; Est GFR (African American) 70.1 ml/min; Est GFR (Non-African American) 60.5 ml/min
[2021-12-15] MEDS: amLODIPine BESYLATE 5 MG TAB PO SCH (07:52)
[2021-12-15] MEDS: LOSARTAN POTASSIUM 50 MG TAB PO SCH (07:52)
[2021-12-15] MEDS: ISOSORBIDE MONO EXTENDED REL 60 MG TABCR PO SCH (07:53)
[2021-12-15] MEDS: LIDOCAINE 5% 1 PATCH TD SCH (07:54)
[2021-12-15] MEDS: ASPIRIN 81 MG ECTAB PO SCH (07:54)
[2021-12-15] MEDS: LANTUS PER UNIT CHARGE SQ SCH (09:27)
[2021-12-15] MEDS: INSULIN ASPART PER UNIT SC SCH ×4 (09:27→21:45)
[2021-12-15] MEDS: CEFEPIME 2,000 MG in SYRINGE 0 ML IV SCH ×2 (12:13→22:44)
[2021-12-15] MEDS ORDERED: WARFARIN SOD 5 MG TAB PO ONE (16:00)
--- NOTE | 2021-12-15 19:48 | Hospitalist Progress Note ---
Date of Service December 15, 2021 Assessment & Plan (1) Weakness: Plan: Per admitting service notes with addendum Significant complicated past medical history and was sent in from [facility] with increasing weakness Patient remains free of any distress at rest or any other symptoms at rest noted to have very high blood sugar of more than 500 and possible recurrent UTI 12/15 Patient denies weakness PT/OT evaluation (2) Acute hyperglycemia: Plan: History of diabetes on insulin Blood sugar remains very high-received intravenous insulin Will need to adjust insulin doses Put him on sliding scale for now 12/15 BSG improving Insulin Lantus and ISS A1c 11.3 Patient only on Lantus 14 units at a.m. at [facility] Will need insulin with meals as well nurse educator consulted (3) Catheter-associated urinary tract infection: Plan: Recurrent UTI UA suggestive of infection Ceftriaxone intravenously has been started Cultures were taken 12/15 Wound culture: Pseudomonas + E. coli Ceftriaxone changed to cefepime day #1 Follow-up final urine cultures (4) shelter (current) use of anticoagulants: Plan: Has paroxysmal atrial fibrillation, sick sinus syndrome with a pacemaker Has been on Coumadin We will continue monitor INR 12/15 INR 1.7 Coumadin 5 mg given today Check INR daily (5) HTN (hypertension): Plan: Seems to be controlled continue current medications (6) Dyslipidemia: Plan: Continue current medicine (7) DM type 2 (diabetes mellitus, type 2): (8) Paroxysmal atrial fibrillation: (9) History of pancreatectomy: (10) Acute hyponatremia: Plan: Sodium 136 (11) Dementia: Plan Has significant dementia DVT prophylaxis On Coumadin CODE STATUS Reviewed previous record Discussed with the patient DNR/DNI Disposition Return to [facility] when medically stable Admission and Anticipated Discharge Date Admission Date: December 13, 2021 Subjective Follow-up for UTI, hyperglycemia, etc. Seen resting in bed, watching TV In good spirits States he feels fine overall No abdominal pain, flank pain, bladder pain, fevers or chills, nausea vomiting no chest pain, dyspnea, palpitations, dizziness Review of Systems Review of Systems: all noted and negative except for above Physical Exam Physical Exam: General- oriented x 3, not in distress, speaks in sentences with no effort or accessory muscle use Eyes- anicteric Neck- no JVD Lungs- clear breath sounds bilaterally, no rales/wheezes Heart- normal rate, regular rhythm; no murmurs Abdomen- normal bowel sounds, nondistended, soft, nontender No CVA tenderness Extremities- no pretibial edema, no calf tenderness Neuro- alert, oriented x 3; no gross focal neurologic deficits Skin- warm & dry Results & Data Results & Data ([facility]) Vital Signs (Past 12 Hours) Vital Signs Temp Pulse Pulse Resp BP Pulse Ox O2 Del Method 12/15/21 15:07 36.4 C L 62 18 138/65 96 Room Air 12/15/21 14:57 68 12/15/21 11:50 36.4 C L 73 20 124/52 L 93 all noted and reviewed including below (1) Dementia Dementia behavioral disturbance: without behavioral disturbance Dementia type: unspecified type Qualified Code(s): F03.90 - Unspecified dementia without behavioral disturbance
[2021-12-15] MEDS: TAMSULOSIN HCL 0.4 MG CAP PO SCH (21:45)
[2021-12-15] MEDS: PANTOprazole 40 MG TAB PO SCH (21:45)
[2021-12-15] MEDS: ATORVASTATIN 40 MG TAB PO SCH (21:45)
[2021-12-16 07:08] LABS: INR 1.4 (0.9-1.1); Prothrombin Time 14.9 Seconds (9.0-12.0)
[2021-12-16] MEDS: INSULIN ASPART PER UNIT SC SCH ×2 (09:36→13:02)
[2021-12-16] MEDS: LANTUS PER UNIT CHARGE SQ SCH (09:36)
[2021-12-16] MEDS: ISOSORBIDE MONO EXTENDED REL 60 MG TABCR PO SCH (09:37)
[2021-12-16] MEDS: ASPIRIN 81 MG ECTAB PO SCH (09:37)
[2021-12-16] MEDS: amLODIPine BESYLATE 5 MG TAB PO SCH (09:37)
[2021-12-16] MEDS: LIDOCAINE 5% 1 PATCH TD SCH (09:38)
[2021-12-16] MEDS: LOSARTAN POTASSIUM 50 MG TAB PO SCH (09:38)
--- NOTE | 2021-12-16 11:28 | Hospitalist Progress Note ---
Date of Service December 16, 2021 Assessment & Plan (1) Weakness: Plan: Per admitting service notes with addendum Significant complicated past medical history and was sent in from [facility] with increasing weakness Patient remains free of any distress at rest or any other symptoms at rest noted to have very high blood sugar of more than 500 and possible recurrent UTI 12/16 Patient denies weakness PT/OT evaluation: Recommend personal care facility (2) Acute hyperglycemia: Plan: History of diabetes on insulin Blood sugar on admission 249 12/16 BSG improving Insulin Lantus and ISS given A1c 11.3 Patient only on Lantus 14 units at a.m. at [facility] Discharge recommendation: * Basal insulin * Lantus 12 units SQ daily * Bolus insulin * * NovoLog per scale ACHS or Q6hrs while NPO * Goal Range: Low 110 mg/dL - High 140 mg/dL * Correction Factor: 25 mg/dL/unit * Nutritional / Prandial insulin per carb ratio of 1 unit per 9 grams CHO consumed Monitor very closely, do not give insulin if skipping meals (3) Catheter-associated urinary tract infection: Plan: Pseudomonas catheter associated urinary tract infection 12/15 Wound culture: Pseudomonas sensitive to ciprofloxacin Patient given ceftriaxone and cefepime while admitted Changed to ciprofloxacin 500 mg twice a day x10-day course (4) senior care (current) use of anticoagulants: Plan: Has paroxysmal atrial fibrillation, sick sinus syndrome with a pacemaker Has been on Coumadin We will continue monitor INR 12/16 INR 1.4 Recommend Coumadin 10 mg today Check INR daily, dose Coumadin accordingly (5) HTN (hypertension): Plan: Seems to be controlled continue current medications (6) Dyslipidemia: Plan: Continue current medicine (7) DM type 2 (diabetes mellitus, type 2): (8) Paroxysmal atrial fibrillation: (9) History of pancreatectomy: (10) Acute hyponatremia: Plan: Sodium improved from 130 to 34 (11) Dementia: Plan Has significant dementia DVT prophylaxis On Coumadin CODE STATUS Reviewed previous record Discussed with the patient DNR/DNI Disposition Return to [facility] Follow-up with primary care physician in 1 week Admission and Anticipated Discharge Date Admission Date: December 13, 2021 Subjective ff up for UTI, hyperglycemia, etc. Seen resting in bed, comfortable, not in distress Watching TV, in good spirits Answers most questions appropriately States he feels much better overall Denies abdominal pain, flank pain, back pain, fevers or chills, nausea vomiting Appetite is great No shortness of breath, chest pain, palpitations, dizziness No other symptoms States that he is ready for discharge today Review of Systems Review of Systems: all noted and negative except for above Physical Exam Physical Exam: General- oriented x 2, not in distress, speaks in sentences with no effort or accessory muscle use Eyes- anicteric Neck- no JVD Lungs- clear breath sounds bilaterally, no crackles or wheezing Heart- normal rate, regular rhythm; no murmurs Abdomen- normal bowel sounds, nondistended, soft, no CVA tenderness Cherry catheter in place-yellow urine output Extremities- no pretibial edema, no calf tenderness Neuro- alert, oriented x 2; nonew gross focal neurologic deficits Skin- warm & dry Results & Data Results & Data ([facility]) Vital Signs (Past 12 Hours) Vital Signs Temp Pulse Pulse Resp BP Pulse Ox O2 Del Method 12/16/21 07:30 36.8 C 55 L 18 147/68 H 94 12/16/21 03:26 36.6 C 60 18 119/58 L 94 Room Air 12/16/21 00:10 74 12/15/21 23:33 36.7 C 64 18 146/56 H 92 Room Air (1) Dementia Dementia behavioral disturbance: without behavioral disturbance Dementia type: unspecified type Qualified Code(s): F03.90 - Unspecified dementia without behavioral disturbance
[2021-12-16] MEDS: CEFEPIME 2,000 MG in SYRINGE 0 ML IV SCH (11:30)
--- NOTE | 2021-12-16 12:08 | Pharmacy Report ---
Pharmacy Glycemic Short Note 2 - Date of Service December 16, 2021 - Glycemic Short BSG Results (Last 24 hours): 12/15/21 12/15/21 12/16/21 17:00 20:42 07:37 POC Glucose 120 H 123 H 161 H 12/16/21 11:27 POC Glucose 203 H OUTPATIENT ANTIDIABETIC REGIMEN: * Lantus 14 units qAM * Metformin * Novolog * HbA1C = 11.3% (12/14/21) ASSESSMENT: 12/16/21 * BSGs yesterday were [phone] mg/dL. Today's BSGs are 161-203 mg/dL. * Patient received 27 units of insulin yesterday (12 units of basal and 15 units of bolus). * Fasting trending upwards today so increase basal back to home dose of 14 units. * Tighten CR as BSGs trend up significantly. BACKGROUND * Mr Little is an 86 y/o with T2DM who presents with weakness and hyperglycemia. * Patient's BSG on admission was 541 and he received 10 units of IV insulin. Subsequent BSGs were 249 and 135 mg/dL. Overnight BSGs were 121-128 mg/dl. Fasting BSG today is 152 mg/dL. * Per previous admission, patient received Lantus 12 units daily + Novolog CF 30 CR 15 with excellent success. Will replicate that this admission. * AM Lantus today (12/14/21) not given until lunch so lung BSG slightly elevated. Patient also did not receive AM Novolog. PLAN FOR INPATIENT GLYCEMIC CONTROL: * Hold outpatient oral diabetes medications * Basal insulin * Lantus 14 units SQ daily * Bolus insulin * NovoLog per scale ACHS or Q6hrs while NPO * Goal Range: Low 110 mg/dL - High 140 mg/dL * Correction Factor: 25 mg/dL/unit * Nutritional / Prandial insulin per carb ratio of 1 unit per 8 grams CHO consumed
--- NOTE | 2021-12-16 12:22 | Discharge Summary ---
Date of Service December 16, 2021 Admission HPI Per Admitting Provider Is an 86 years old male from [facility] with significant past medical history including Alzheimer's dementia, diabetes on insulin, paroxysmal atrial fibrillation with sick sinus syndrome status post pacemaker, hypertension, chronic systolic CHF, CAD status post CABG and history of pancreatic cancer with other medical condition as mentioned below apparently was sent in from [facility] with increasing weakness and tiredness and noted to have blood sugar very high. He has been having recurrent UTI and recently finished a course of antibiotic and he has been on clindamycin as per the note. The patient himself does not have any symptoms and he has dementia and cannot express himself well but does not look to be in any any distress. His labs are remarkable for high sugar of more than 500 and UA suggestive of infection. He received intravenous insulin and also intravenous ceftriaxone and was admitted to the medical telemetry unit for continuation of care. Admission Exam Per Admitting Provider Physical Exam: Lying in bed without any acute distress Constitutional: well developed and well nourished; not ill appearing Eyes: PERRL, conjunctivae normal, anicteric sclerae ENMT: external ear and nose normal, oropharynx normal Neck: trachea midline, no thyromegaly Respiratory: no respiratory distress Auscultation: lungs clear to aus cultation bilaterally Cardiovascular: Rate/Rhythm: + irregularly irregular Heart Sounds: normal S1, normal S2 and + murmur (2/6 ESM over precordium) Extremities: + edema (Trace to 1+ edema bilaterally) Gastrointestinal (Abdomen): Inspection/Auscultation: normal bowel sounds; abdomen not distended Percussion/Palpation: abdomen soft; abdomen nontender Musculoskeletal: No acute arthritis in any joint Neurologic: Alert and awake. Denies any symptoms. Has significant dementia Principal Diagnosis Hyperglycemia, diabetes type 2 Pseudomonas catheter associated urinary tract infection Discharge Exam General- oriented x 2, not in distress, speaks in sentences with no effort or accessory muscle use Eyes- anicteric Neck- no JVD Lungs- clear breath sounds bilaterally, no crackles or wheezing Heart- normal rate, regular rhythm; no murmurs Abdomen- normal bowel sounds, nondistended, soft, no CVA tenderness Cherry catheter in place-yellow urine output Extremities- no pretibial edema, no calf tenderness Neuro- alert, oriented x 2; nonew gross focal neurologic deficits Skin- warm & dry Discharge Data Allergies Allergy/AdvReac Type Severity Reaction Status Date / Time shellfish derived Allergy Severe anaphylaxis Verified 12/13/21 16:04 clopidogrel Allergy Intermediate INTERNAL Verified 12/13/21 16:04 HIVES Penicillins Allergy Intermediate HIVES Verified 12/13/21 16:04 Consultations 12/13/21 14:47 ED Decision to Admit Stat Diabetes Follow up Diabetes Follow-up Needed for HgbA1c >9% Hospital Course (1) Weakness: Per admitting service notes with addendum Significant complicated past medical history and was sent in from [facility] with increasing weakness Patient remains free of any distress at rest or any other symptoms at rest noted to have very high blood sugar of more than 500 and recurrent UTI 12/16 Patient denies weakness PT/OT evaluation: Recommend personal care facility (2) Acute hyperglycemia: History of diabetes on insulin Blood sugar on admission 249 12/16 BSG improving Insulin Lantus and ISS given A1c 11.3 Patient only on Lantus 14 units at a.m. at [facility] Discharge recommendation: * Basal insulin * Lantus 12 units SQ daily * Bolus insulin * * NovoLog per scale ACHS or Q6hrs while NPO * Goal Range: Low 110 mg/dL - High 140 mg/dL * Correction Factor: 25 mg/dL/unit * Nutritional / Prandial insulin per carb ratio of 1 unit per 9 grams CHO consumed Monitor very closely, do not give insulin if skipping meals (3) Catheter-associated urinary tract infection: Pseudomonas catheter associated urinary tract infection 12/16 Wound culture: Pseudomonas sensitive to ciprofloxacin Patient given ceftriaxone and cefepime while admitted Changed to ciprofloxacin 500 mg twice a day x10-day course (4) correction (current) use of anticoagulants: Has paroxysmal atrial fibrillation, sick sinus syndrome with a pacemaker Has been on Coumadin We will continue monitor INR 12/16 INR 1.4 Recommend Coumadin 10 mg today Check INR daily, dose Coumadin accordingly (5) HTN (hypertension): Seems to be controlled continue current medications (6) Dyslipidemia: Continue current medicine (7) DM type 2 (diabetes mellitus, type 2): (8) Paroxysmal atrial fibrillation: (9) History of pancreatectomy: (10) Acute hyponatremia: Sodium improved from 130 to 34 (11) Dementia: Plan Has significant dementia DVT prophylaxis On Coumadin CODE STATUS Reviewed previous record Discussed with the patient DNR/DNI Disposition Return to [facility] Follow-up with primary care physician in 1 week Total Time Total Time Spent Total Time Spent (In Minutes): >30 minutes Discharge Plan Discharge Items Patient Disposition: Transfer Detention Fac Reason For Visit: WEAKNESS,HYPERGLYCEMIA,UTI Discharge Diagnosis: Hyperglycemia, diabetes type 2 Pseudomonas catheter associated urinary tract infection Activity: Resume your previous activity Activity Comment: Fall precautions please Non-emergency contact: Primary Care Provider Call non-emergency contact if: you have any medication questions, your symptoms worsen, your pain is not controlled, your pain is worsening, your pain is unusu al for you, your pain is concerning for you and you have a fever Follow-up/Referrals: Melo Carlos MD [Outside Practitioners] - (Date & Time 12/21/2021 10:40 AM Provider Melo Carlos MD Department [facility] ) [facility] [Primary Care Provider] - Diet: Carb Consistent or DM2 and Heart Healthy Addtl Attending Provider Instructions: PLEASE REFER TO ACCOMPANYING HOSPITAL DISCHARGE SUMMARY FOR FURTHER DETAILS. PLEASE START NOVOLOG INSULIN SLIDING SCALE FOLLOWS: * Basal insulin * Lantus 12 units SQ daily * Bolus insulin * NovoLog per scale ACHS or Q6hrs while NPO * Goal Range: Low 110 mg/dL - High 140 mg/dL * Correction Factor: 25 mg/dL/unit * Nutritional / Prandial insulin per carb ratio of 1 unit per 9 grams CHO consumed INR ON DISCHARGE DAY IS 1.4 -DECEMBER 16, 2021 Recommend Coumadin 10 mg today Check INR tomorrow and adjust Coumadin accordingly Monitor INR closely while on ciprofloxacin Pending Studies at Discharge: No Stand-Alone Forms: My SafetySkills, Smoking Cessation Skilled Items Patient informed of condition?: Yes DNR: Yes Discharge Level of Care: Skilled Communicable Disease: No Discharge Prognosis: Stable Lines: None Urinary Catheter: Yes Medications and DC Order Prescriptions: New insulin aspart U-100 [Novolog U-100 Insulin aspart] 100 unit/mL Solution 1 unit SC ACHS Qty: 10 5RF Rx Instructions: Follow insulin sliding scale outlined in discharge instructions ciprofloxacin HCl [Cipro] 500 mg tablet 500 mg PO BID 9 Days Qty: 18 0RF Continued methenamine hippurate 1 gram tablet 1 g PO DAILY Qty: 30 8RF dutasteride 0.5 mg capsule 0.5 mg PO DAILY Qty: 30 11RF nitroglycerin [Nitrostat] 0.4 mg Tablet, Sublingual 0.4 mg sublingual UD PRN (Reason: Chest Pain) Rx Instructions: 1 EVERY 5 MINUTES NEEDED WITH CHEST PAIN UP TO 3 DOSES IN 15 MINUTES warfarin [Jantoven] 2.5 mg tablet 2.5 mg PO [id number] Rx Instructions: TAKES AT 1700 DAILY. TAKES EVERY DAY EXCEPT WEDNESDAYS. losartan 50 mg tablet 50 mg PO QAM Qty: 30 0RF sennosides [Senokot] 8.6 mg tablet 8.6 - 17.2 mg PO HS PRN (Reason: Constipation) Qty: 30 0RF acetaminophen [Tylenol] 325 mg Tablet 650 mg PO Q6H MDD 3 GRAMS/24 HOURS PRN (Reason: Pain) Qty: 60 0RF amlodipine 5 mg tablet 5 mg PO DAILY Qty: 30 0RF aspirin 81 mg Tablet,Delayed Release (Dr/Ec) 81 mg PO QAM Qty: 30 0RF isosorbide mononitrate 60 mg tablet extended release 24 hr 60 mg PO QAM Qty: 30 0RF tamsulosin 0.4 mg Capsule 0.4 mg PO HS Qty: 30 0RF albuterol sulfate 90 mcg/actuation HFA aerosol inhaler 2 puff INHALATION Q6H PRN (Reason: Wheezing) Qty: 6.7 0RF warfarin 5 mg Tablet 5 mg PO WK Rx Instructions: TAKES AT 1700. TAKES ON WEDNESDAYS ONLY Qc Antacid Tabs 750 mg PO TID PRN (Reason: Indigestion) furosemide 40 mg tablet 40 mg PO QAM atorvastatin 40 mg tablet 40 mg PO HS pantoprazole 40 mg tablet,delayed release (DR/EC) 40 mg PO HS insulin glargine [Lantus Solostar U-100 Insulin] 100 unit/mL (3 mL) insulin pen 14 unit subcut QAM Discontinued clindamycin HCl 300 mg capsule 600 mg PO ONCE Qty: 4 2RF Rx Instructions: TAKE 2 300MG TABLETS 1 HOUR BEFORE DENTAL PROCEDURE Discharge Orders: Discharge Order (Routine); Ordered 12/16/21 Ordered By: Dhruv Blandon Admission Data Admit Date/Time: 12/13/21 15:26 Attending Provider: Alta Mims Admit Provider: Adam Mosher Primary Care Provider: STATE NELDA BOBBY Other Providers: Adam Mosher
[2021-12-16] MEDS ORDERED: WARFARIN SOD 5 MG TAB PO SCH (17:00)
[2021-12-17] MEDS ORDERED: LANTUS PER UNIT CHARGE SQ SCH (09:00)
== END 2021-12-16 15:10 | disposition home health service (06) | DRG 699 ==
LOC: ED 12:45 → SUATTDRO 15:26 → EDINP 17:50 → 2W 18:32

== ENCOUNTER 2021-12-31 18:06 | Inpatient (IN) ==
--- NOTE | 2021-12-31 18:42 | Emergency Department Note ---
Impression & Plan CHF (congestive heart failure), Hyperglycemia, Acute UTI, Acute hyponatremia, Leukocytosis, Dysuria ED Provider Note NAME: ANTOINETTE AHUMADA AGE: 86 SEX: M : 1935 ARRIVES VIA: Ambulance INFORMANT: [Patient][family] ED PROVIDER(S): [Yousif Langford MD] CHIEF COMPLAINT: Urinary symptoms HISTORY OF PRESENT ILLNESS: The patient is an 86-year-old male who presents to the ER with urinary discomfort and pain. He was seen in this ED on the ninth, 2 days ago. His urine did not grow any infection but, he was placed on Cipro just in case. He was supposed to see urology this week for a Cherry exchange but they cannot see him until next week. As he was having increased pain and some discharge from the Cherry, he was sent for evaluation. The patient currently has no pain. He has not had chills or fever. He is not short of breath. The patient's daughter is at bedside, she is concerned because he has had some increasing pedal edema. She is worried about fluid overload and about problems with the Cherry drainage. REVIEW OF SYSTEMS: See HPI for pertinent positives and negatives. A total of ten systems were reviewed and were otherwise negative. PMHx/PSHx: See Below SOCIAL HISTORY: See Below. PHYSICAL EXAM: GENERAL: Patient is in no acute distress. HEENT: No acute trauma, normocephalic atraumatic, mucous membranes moist, no nasal congestion, no scleral icterus. NECK: No stridor, no adenopathy, no meningismus, trachea is midline. LUNGS: Crackles bilaterally with some scattered wheezing, no respiratory distress, breath sounds equal HEART: 3/6 systolic murmur, regular rate and rhythm. ABDOMEN: Soft, nontender, bowel sounds positive, no peritonitis. EXTREMITIES: No cyanosis, moderate bilateral pedal edema, full range of motion of all the joints without pain or difficulty, no signs for acute trauma. NEUROLOGIC: Oriented x 3, no acute motor or sensory deficits, no focal weakness. SKIN: No rash, no jaundice, no diaphoresis. Groin: The patient does have a Hcerry catheter in place. No penile erythema. There appears to be some mucus or yeastlike discharge around the penile head. No balanitis. There is straw-colored urine in the Cherry bag. DIFFERENTIAL DIAGNOSIS: Urinary retention, UTI, pyelonephritis, hydronephrosis, renal failure, electrolyte imbalance, balanitis, scrotal cellulitis, fluid overload, CHF, among others. EMERGENCY DEPARTMENT COURSE/PROCEDURES: MEDICAL DECISION MAKING: There is a mild leukocytosis, this could be consistent with infection. The patient is anemic but this appears relatively baseline when looking back at previous testing. There is a normal platelet count. INR is high at 3.2, consistent with his Coumadin use. Sodium is low at 130. No renal failure. Glucose was high at over 300. Magnesium was low at 1.6. Alk phos was elevated but the remaining liver enzymes were unremarkable. BNP was elevated consistent with CHF and fluid overload. The patient appeared to be in a euthyroid state. Urinalysis showed potential infection, COVID test returned negative. Abdominal and pelvis CT did not show any hydronephrosis or acute surgical pathology. No acute infection by CT imaging. Chest film does show evidence for CHF, no infiltrate. Patient received IV magnesium, IV insulin, IV Lasix and IV cefepime. He had his old Cherry removed and a new Cherry placed. The patient presents with weight gain and pedal edema. He has CHF by exam and chest x-ray as well as laboratory testing. He has a white count elevation, a high blood glucose and a lower sodium. He may have a UTI. I think given his multiple findings that hospital stay would be warranted. I spoke with the patient, I spoke with his daughter, I spoke with the case manager specialist. The on-call hospitalist was consulted. Past Med/Surg History Medical History ACS (acute coronary syndrome) CAD (coronary artery disease) Chronic anticoagulation Dementia DM type 2 (diabetes mellitus, type 2) DNR (do not resuscitate) Dyslipidemia Dyspnea on exertion Gout History of cerebral hemorrhage HTN (hypertension) Pacemaker Pancreatic cancer Paroxysmal atrial fibrillation Sinus node dysfunction SSS (sick sinus syndrome) Surgical History H/O arthroscopic knee surgery H/O colonoscopy H/O esophagogastroduodenoscopy H/O inguinal hernia repair History of pancreatectomy "07/15/2010 [place] [facility] [place] S/P CABG x 1 S/P coronary artery stent placement "03/29/03 cardiac cath: RCA - stent of 90% lesion, L circ obtuse kenneth - stent of 80% lesion " S/P splenectomy S/P tonsillectomy and adenoidectomy Family History Other Family history non-contributory Social History Smoking Status: Unknown if ever smoked Tobacco Type: Cigarettes Hx Alcohol Use: No Hx Substance Use: No Preferred Language: Yi Communication Ability: Effective Billposting Supervisor Required: No Beliefs That Will Affect Care: None marital status: / Current Living Situation: Alf Current Living Situation Comment: Assisted living current occupational status: retired How many Children do You have: 2 Feels Safe at Home: Yes Assistive Devices: None Allergies Allergies Allergy/AdvReac Type Severity Reaction Status Date / Time shellfish derived Allergy Severe anaphylaxis Verified 12/31/21 21:44 clopidogrel Allergy Intermediate INTERNAL Verified 12/31/21 21:44 HIVES Penicillins Allergy Intermediate HIVES Verified 12/31/21 21:44 Home Meds Home Medications Medication Instructions Recorded Confirmed nitroglycerin 0.4 mg sublingual 0.4 mg sublingual UD PRN Chest Pain 09/04/18 12/31/21 tablet (Nitrostat) Qc Antacid Tabs 750 mg PO TID PRN Indigestion 09/04/21 12/31/21 atorvastatin 40 mg tablet 40 mg PO HS 09/04/21 12/31/21 furosemide 40 mg tablet 40 mg PO QAM 09/04/21 12/31/21 pantoprazole 40 mg tablet,delayed 40 mg PO HS 09/04/21 12/31/21 release warfarin 5 mg tablet 5 mg PO WK 09/04/21 12/31/21 warfarin 2.5 mg tablet (Jantoven) 2.5 mg PO 6XWK 10/04/21 12/31/21 insulin glargine 100 unit/mL (3 14 unit subcut QAM 12/13/21 12/31/21 mL) subcutaneous pen (Lantus Solostar U-100 Insulin) clindamycin HCl 300 mg capsule 600 mg PO DIRECTED PRN PRIOR TO 12/31/21 12/31/21 DENTAL APPT. nystatin 100,000 unit/gram topical 1 applic topical TID 12/31/21 12/31/21 cream Previous Rx's Medication Instructions Recorded acetaminophen 325 mg tablet 650 mg PO Q6H PRN Pain #60 tabs 08/21/21 (Tylenol) albuterol sulfate 90 mcg/actuation 2 puff inhalation Q6H PRN Wheezing 08/21/21 aerosol inhaler #6.7 grams amlodipine 5 mg tablet 5 mg PO DAILY #30 tabs 08/21/21 aspirin 81 mg tablet,delayed 81 mg PO QAM #30 tabs 08/21/21 release isosorbide mononitrate 60 mg 60 mg PO QAM #30 tabs 08/21/21 tablet,extended release 24 hr losartan 50 mg tablet 50 mg PO QAM #30 tabs 08/21/21 sennosides 8.6 mg tablet (Senokot) 8.6 - 17.2 mg PO HS PRN 08/21/21 Constipation #30 tabs tamsulosin 0.4 mg capsule 0.4 mg PO HS #30 caps 08/21/21 dutasteride 0.5 mg capsule 0.5 mg PO DAILY #30 caps 10/20/21 methenamine hippurate 1 gram tablet 1 g PO DAILY #30 tabs 10/22/21 ciprofloxacin HCl 500 mg tablet 500 mg PO Q12H 3 days #5 tabs 12/29/21 Results & Data (ED) Vital Signs Vital Signs - 24 hr 12/31/21 18:09 12/31/21 21:45 12/31/21 21:46 Temperature 36.6 C Temperature Source Oral Pulse Rate 85 Pulse Rate [Apical] 60 Respiratory Rate 18 18 Respiratory Effort / Characteristics Non-Labored Spontaneous Respiratory Depth Normal Respiratory Pattern Regular Blood Pressure 147/88 H Blood Pressure [Right Arm] 139/74 Blood Pressure Mean 107 Blood Pressure Mean [Right Arm] 95 Pulse Oximetry 95 95 95 Oxygen Delivery Method Room Air Room Air Sepsis Recent Fever Within 48 Hours No Sepsis New/Unexplained Change in Mental Status N/A Sepsis Action Taken by Nursing No Action Required Home Medications Current Medication List: was personally reviewed by me Laboratory Data Attestation: I reviewed the patient's lab results. Result diagrams: 12/31/21 19:25 12/31/21 19:25 Lab Results 12/31/21 12/31/21 12/31/21 Range/Units 19:25 19:25 19:25 WBC 13.12 H (4.8-10.8) K/ul RBC 3.28 L (4.63-6.08) M/uL Hgb 9.3 L (14.0-18.0) g/dl Hct 29.0 L (40.1-51.0) % MCV 88.4 (80.0-100.0) fL MCH 28.4 (25.0-34.0) pg MCHC 32.1 (32.0-36.0) g/dL RDW Std Deviation 51.0 H (36.4-46.3) fL RDW Coeff of Trevon 15.8 H (11.5-14.5) % Plt Count 225 (130-400) K/uL MPV 10.0 (9.4-12.4) fL Immature Gran % (Auto) 0.5 % Neut % (Auto) 42.6 % Lymph % (Auto) 17.7 % [place] % (Auto) 11.1 % Eos % (Auto) 27.7 % Baso % (Auto) 0.4 % Neut # (Auto) 5.59 (1.4-6.5) K/uL Lymph # (Auto) 2.32 (1.2-3.4) K/uL [place] # (Auto) 1.46 H (0.24-0.82) K/uL Eos # (Auto) 3.63 H (0-0.50) K/uL Baso # (Auto) 0.05 (0-0.2) K/uL Immature Gran # (Auto) 0.07 H (0.00-0.02) K/uL PT 32.4 H (9.0-12.0) Seconds INR 3.2 H (0.9-1.1) APTT 43.0 H (21.0-31.0) Seconds PTT Ratio 1.6 Sodium 130 L (136-145) mmol/L Potassium 4.9 (3.5-5.1) mmol/L Chloride 101 (98-107) mmol/L Carbon Dioxide 22 (21-32) mmol/L Anion Gap 7 (3-11) BUN 24 H (6-23) mg/dl Creatinine 1.28 (0.6-1.4) mg/dl Est Cr Clr Drug Dosing 52.9 ml/min Est GFR ( Amer) 58.3 ml/min Est GFR (Non-Af Amer) 50.3 ml/min BUN/Creatinine Ratio 18.8 (10-20) Glucose 315 H* (70-99(Fasting)) mg/dl POC Glucose (70-99) mg/dl Calcium 8.8 (8.5-10.1) mg/dl Magnesium 1.6 L (1.7-2.4) mg/dl Total Bilirubin 0.6 (0.2-1.0) mg/dl AST 15 (13-39) U/L ALT 13 (7-52) U/L Alkaline Phosphatase 121 H (34-104) U/L B-Natriuretic Peptide (0-100) pg/ml Total Protein 7.8 (6.0-8.3) gm/dl Albumin 3.3 L (3.4-5.0) gm/dl Globulin 4.5 H (2.5-4.0) gm/dl Albumin/Globulin Ratio 0.7 L (0.9-2) TSH (0.300-4.500) uIu/ml Urine Color Urine Appearance (Clear) Urine pH (4.5-7.5) Ur Specific [place] (1.000-1.030) Urine Protein (Negative) Urine Glucose (UA) (Negative) Urine Ketones (Negative) Urine Blood (Negative) Urine Nitrite (Negative) Urine Bilirubin (Negative) Urine Urobilinogen (Negative) Ur Leukocyte Esterase (Negative) Urine WBC (Auto) (0-5) /hpf Urine RBC (Auto) (0-4) /hpf U Hyaline Cast (Auto) (0-5) /lpf U Epithel Cells (Auto) (0-5) /lpf Urine Bacteria (Auto) (Negative) SARS-CoV-2, RNA, NAAT (NEGATIVE) 12/31/21 12/31/21 12/31/21 Range/Units 19:25 19:25 20:24 WBC (4.8-10.8) K/ul RBC (4.63-6.08) M/uL Hgb (14.0-18.0) g/dl Hct (40.1-51.0) % MCV (80.0-100.0) fL MCH (25.0-34.0) pg MCHC (32.0-36.0) g/dL RDW Std Deviation (36.4-46.3) fL RDW Coeff of Trevon (11.5-14.5) % Plt Count (130-400) K/uL MPV (9.4-12.4) fL Immature Gran % (Auto) % Neut % (Auto) % Lymph % (Auto) % [place] % (Auto) % Eos % (Auto) % Baso % (Auto) % Neut # (Auto) (1.4-6.5) K/uL Lymph # (Auto) (1.2-3.4) K/uL [place] # (Auto) (0.24-0.82) K/uL Eos # (Auto) (0-0.50) K/uL Baso # (Auto) (0-0.2) K/uL Immature Gran # (Auto) (0.00-0.02) K/uL PT (9.0-12.0) Seconds INR (0.9-1.1) APTT (21.0-31.0) Seconds PTT Ratio Sodium (136-145) mmol/L Potassium (3.5-5.1) mmol/L Chloride (98-107) mmol/L Carbon Dioxide (21-32) mmol/L Anion Gap (3-11) BUN (6-23) mg/dl Creatinine (0.6-1.4) mg/dl Est Cr Clr Drug Dosing ml/min Est GFR ( Amer) ml/min Est GFR (Non-Af Amer) ml/min BUN/Creatinine Ratio (10-20) Glucose (70-99(Fasting)) mg/dl POC Glucose (70-99) mg/dl Calcium (8.5-10.1) mg/dl Magnesium (1.7-2.4) mg/dl Total Bilirubin (0.2-1.0) mg/dl AST (13-39) U/L ALT (7-52) U/L Alkaline Phosphatase (34-104) U/L B-Natriuretic Peptide 139 H (0-100) pg/ml Total Protein (6.0-8.3) gm/dl Albumin (3.4-5.0) gm/dl Globulin (2.5-4.0) gm/dl Albumin/Globulin Ratio (0.9-2) TSH 3.071 (0.300-4.500) uIu/ml Urine Color Yellow Urine Appearance Clear (Clear) Urine pH 5.0 (4.5-7.5) Ur Specific [place] 1.012 (1.000-1.030) Urine Protein Negative (Negative) Urine Glucose (UA) 1+ H (Negative) Urine Ketones Negative (Negative) Urine Blood 2+ H (Negative) Urine Nitrite Negative (Negative) Urine Bilirubin Negative (Negative) Urine Urobilinogen Negative (Negative) Ur Leukocyte Esterase 1+ H (Negative) Urine WBC (Auto) 10-30 H (0-5) /hpf Urine RBC (Auto) 10-30 H (0-4) /hpf U Hyaline Cast (Auto) 1-5 (0-5) /lpf U Epithel Cells (Auto) >30 H (0-5) /lpf Urine Bacteria (Auto) Negative (Negative) SARS-CoV-2, RNA, NAAT (NEGATIVE) 12/31/21 12/31/21 Range/Units 20:58 21:41 WBC (4.8-10.8) K/ul RBC (4.63-6.08) M/uL Hgb (14.0-18.0) g/dl Hct (40.1-51.0) % MCV (80.0-100.0) fL MCH (25.0-34.0) pg MCHC (32.0-36.0) g/dL RDW Std Deviation (36.4-46.3) fL RDW Coeff of Trevon (11.5-14.5) % Plt Count (130-400) K/uL MPV (9.4-12.4) fL Immature Gran % (Auto) % Neut % (Auto) % Lymph % (Auto) % [place] % (Auto) % Eos % (Auto) % Baso % (Auto) % Neut # (Auto) (1.4-6.5) K/uL Lymph # (Auto) (1.2-3.4) K/uL [place] # (Auto) (0.24-0.82) K/uL Eos # (Auto) (0-0.50) K/uL Baso # (Auto) (0-0.2) K/uL Immature Gran # (Auto) (0.00-0.02) K/uL PT (9.0-12.0) Seconds INR (0.9-1.1) APTT (21.0-31.0) Seconds PTT Ratio Sodium (136-145) mmol/L Potassium (3.5-5.1) mmol/L Chloride (98-107) mmol/L Carbon Dioxide (21-32) mmol/L Anion Gap (3-11) BUN (6-23) mg/dl Creatinine (0.6-1.4) mg/dl Est Cr Clr Drug Dosing ml/min Est GFR ( Amer) ml/min Est GFR (Non-Af Amer) ml/min BUN/Creatinine Ratio (10-20) Glucose (70-99(Fasting)) mg/dl POC Glucose 317 H* (70-99) mg/dl Calcium (8.5-10.1) mg/dl Magnesium (1.7-2.4) mg/dl Total Bilirubin (0.2-1.0) mg/dl AST (13-39) U/L ALT (7-52) U/L Alkaline Phosphatase (34-104) U/L B-Natriuretic Peptide (0-100) pg/ml Total Protein (6.0-8.3) gm/dl Albumin (3.4-5.0) gm/dl Globulin (2.5-4.0) gm/dl Albumin/Globulin Ratio (0.9-2) TSH (0.300-4.500) uIu/ml Urine Color Urine Appearance (Clear) Urine pH (4.5-7.5) Ur Specific [place] (1.000-1.030) Urine Protein (Negative) Urine Glucose (UA) (Negative) Urine Ketones (Negative) Urine Blood (Negative) Urine Nitrite (Negative) Urine Bilirubin (Negative) Urine Urobilinogen (Negative) Ur Leukocyte Esterase (Negative) Urine WBC (Auto) (0-5) /hpf Urine RBC (Auto) (0-4) /hpf U Hyaline Cast (Auto) (0-5) /lpf U Epithel Cells (Auto) (0-5) /lpf Urine Bacteria (Auto) (Negative) SARS-CoV-2, RNA, NAAT NEGATIVE (NEGATIVE) Administered Medications Magnesium Sulfate/Dextrose (Magnesium Sulfate / D5w) 1 gm in 100 mls @ 50 mls/hr IV ONE ONE Stop: 01/01/22 01:29 Last Admin: 12/31/21 23:29 Dose: 50 mls/hr Documented By: MARIA A Discontinued Medications Furosemide (Furosemide 40 Mg/4 Ml Vial) 40 mg IV ONE ONE Stop: 12/31/21 21:01 Last Admin: 12/31/21 21:34 Dose: 40 mg Documented By: MARIA A Cefepime HCl (Maxipime) 2,000 mg in 20 mls @ 5 mls/min IV NOW STA; Protocol Stop: 12/31/21 21:00 Last Admin: 12/31/21 21:35 Dose: 5 mls/min Documented By: MARIA A Sodium Chloride (Nss 1000ml) 1,000 mls @ 999 mls/hr IV .Q1H1M ONE Stop: 12/31/21 21:57 Last Admin: 12/31/21 21:47 Dose: Not Given Documented By: MARIA A Insulin Glargine (Lantus Per Unit Charge) 10 units SQ NOW STA Stop: 12/31/21 23:20 Last Admin: 12/31/21 23:29 Dose: 10 units Documented By: MARIA A Co-signed By: ILYA Insulin Human Regular (Novolin-R Insulin Per Unit Charge) 8 units IV NOW STA Stop: 12/31/21 21:03 Last Admin: 12/31/21 21:35 Dose: 8 units Documented By: MARIA A Co-signed By: YONY Lidocaine HCl (Lidocaine 2% Jelly 5 Ml Tube) Confirm Administered Dose 5 ml .ROUTE .STK-MED ONE Stop: 12/31/21 20:03 Last Admin: 12/31/21 20:11 Dose: 5 ml Documented By: MARIA A Imaging Data Radiologist's Impression: Abdomen/Pelvis CT 12/31/21 18:25 CT abd pelvis wo con CLINICAL HISTORY: urinary issues, poss hydro or obstruction TECHNIQUE: Helical axial images of the abdomen and pelvis were obtained. Automated dose lowering techniques and/or adjustment according to patient size were utilized for this exam. This exam was performed without intravenous contrast. CT DOSE: 1014.63 mGycm COMPARISON: Comparison is made to CT abdomen pelvis 10/04/2021 FINDINGS: Lower chest: Small bilateral pleural effusions are seen with associated atelect asis. Liver: Unremarkable. No focal lesions are seen. Gallbladder and biliary tree: No calcified gallstones. Normal caliber wall. No intra- or extrahepatic biliary ductal dilation. Pancreas: Unremarkable, no focal lesions. 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 Adrenals: Unremarkable. Kidneys and ureters: Perinephric stranding is noted bilaterally. No hydronephrosis is seen. Bladder: Cherry catheter is seen. There is thickening of the bladder wall. Reproductive organs: Unremarkable. Bowel: Unremarkable. Lymph nodes Retroperitoneal: Unremarkable. Pelvic: Unremarkable. Mesenteric: Unremarkable. Peritoneum: Normal. Vessels: Atherosclerotic calcifications are seen. Abdominal wall: Unremarkable. Bones: Degenerative changes in the visualized spine. Cement arthroplasty of an L1 compression deformity is noted. Total right hip arthroplasty is seen. Old healed 12th rib fracture is seen on the right. IMPRESSION: 1. No evidence of hydronephrosis or obstruction. 2. The bladder is collapsed about a Cherry catheter. However, the bladder wall appears chronically thickened, comparable to prior exam. Cystitis cannot be excluded, correlation with urinalysis is recommended. ACT 112: Negative or not required by law. Electronically signed by: Brandon Jimenez M.D. 12/31/2021 8:10 PM Chest X-Ray 12/31/21 18:25 XR chest 1V portable CLINICAL HISTORY: sob TECHNIQUE: Single frontal radiograph of the chest was obtained. Comparison: Comparison is made to chest radiograph 12/13/2021 FINDINGS: Median sternotomy wires are unchanged. Dual-lead pacemaker is seen. Cardiomegaly is noted. Prominence and cephalization of the vasculature is seen. No evidence of pleural effusion or pneumothorax. IMPRESSION: 1. Cardiomegaly and mild pulmonary edema. 2. No evidence of pneumonia. ACT 112: Negative or not required by law. Electronically signed by: Brandon Jimenez M.D. 12/31/2021 6:43 PM Discharge Plan Visit Data Chief Complaint: Urinary Symptoms ED Provider: Yousif Langford Discharge Problem: CHF (congestive heart failure), Hyperglycemia, Acute UTI, Acute hyponatremia, Leukocytosis, Dysuria Patient Disposition: Admitted As Inpatient Condition: Fair Forms Stand Alone Forms: [id number] Prescriptions Prescriptions: No Action methenamine hippurate 1 gram tablet 1 g PO DAILY Qty: 30 8RF dutasteride 0.5 mg capsule 0.5 mg PO DAILY Qty: 30 11RF nitroglycerin [Nitrostat] 0.4 mg Tablet, Sublingual 0.4 mg sublingual UD PRN (Reason: Chest Pain) Rx Instructions: 1 EVERY 5 MINUTES NEEDED WITH CHEST PAIN UP TO 3 DOSES IN 15 MINUTES warfarin [Jantoven] 2.5 mg tablet 2.5 mg PO 6XWK Rx Instructions: TAKES AT 1700 DAILY. TAKES EVERY DAY EXCEPT WEDNESDAYS. losartan 50 mg tablet 50 mg PO QAM Qty: 30 0RF sennosides [Senokot] 8.6 mg tablet 8.6 - 17.2 mg PO HS PRN (Reason: Constipation) Qty: 30 0RF acetaminophen [Tylenol] 325 mg Tablet 650 mg PO Q6H MDD 3 GRAMS/24 HOURS PRN (Reason: Pain) Qty: 60 0RF amlodipine 5 mg tablet 5 mg PO DAILY Qty: 30 0RF aspirin 81 mg Tablet,Delayed Release (Dr/Ec) 81 mg PO QAM Qty: 30 0RF isosorbide mononitrate 60 mg tablet extended release 24 hr 60 mg PO QAM Qty: 30 0RF tamsulosin 0.4 mg Capsule 0.4 mg PO HS Qty: 30 0RF albuterol sulfate 90 mcg/actuation HFA aerosol inhaler 2 puff INHALATION Q6H PRN (Reason: Wheezing) Qty: 6.7 0RF warfarin 5 mg Tablet 5 mg PO WK Rx Instructions: TAKES AT 1700. TAKES ON WEDNESDAYS ONLY Qc Antacid Tabs 750 mg PO TID PRN (Reason: Indigestion) furosemide 40 mg tablet 40 mg PO QAM atorvastatin 40 mg tablet 40 mg PO HS pantoprazole 40 mg tablet,delayed release (DR/EC) 40 mg PO HS insulin glargine [Lantus Solostar U-100 Insulin] 100 unit/mL (3 mL) insulin pen 14 unit subcut QAM ciprofloxacin HCl 500 mg tablet 500 mg PO Q12H 3 Days Qty: 5 0RF Rx Instructions: STARTED 12/30/21 FOR 3 DAYS clindamycin HCl 300 mg Capsule 600 mg PO DIRECTED PRN (Reason: PRIOR TO DENTAL APPT.) nystatin 100,000 unit/gram Cream 1 applic TOPICAL TID Rx Instructions: APPLY SMALL AMT UNDER FORESKIN TID AND PRN IF NEEDED. Referrals Referrals: [facility] BOBBY [Primary Care Provider] -
--- NOTE | 2021-12-31 18:45 | XRay Report ---
XR chest 1V portable CLINICAL HISTORY: sob TECHNIQUE: Single frontal radiograph of the chest was obtained. Comparison: Comparison is made to chest radiograph 12/13/2021 FINDINGS: Median sternotomy wires are unchanged. Dual-lead pacemaker is seen. Cardiomegaly is noted. Prominence and cephalization of the vasculature is seen. No evidence of pleural effusion or pneumothorax. IMPRESSION: 1. Cardiomegaly and mild pulmonary edema. 2. No evidence of pneumonia. ACT 112: Negative or not required by law. Electronically signed by: Brandon Jimenez M.D. 12/31/2021 6:43 PM
[2021-12-31 19:39] LABS: Basophils # (auto) 0.05 K/uL (0-0.2); Basophils % (auto) 0.4 %; Eosinophils # (auto) 3.63 K/uL (0-0.50); Eosinophils % (auto) 27.7 %; Hemoglobin 9.3 g/dl (14.0-18.0); Immature Granulocytes # (auto) 0.07 K/uL (0.00-0.02); Immature Granulocytes % (auto) 0.5 %; Lymphocytes # (auto) 2.32 K/uL (1.2-3.4); Lymphocytes % (auto) 17.7 %; Mean Corpuscular Hemoglobin 28.4 pg (25.0-34.0); Mean Corpuscular Hgb Conc 32.1 g/dL (32.0-36.0); Mean Corpuscular Volume 88.4 fL (80.0-100.0); Monocytes # (auto) 1.46 K/uL (0.24-0.82); Monocytes % (auto) 11.1 %; Neutrophils # (auto) 5.59 K/uL (1.4-6.5); Neutrophils % (auto) 42.6 %; Platelet Count 225 K/uL (130-400); RDW Coefficient of Variation 15.8 % (11.5-14.5); Red Blood Count 3.28 M/uL (4.63-6.08); White Blood Count 13.12 K/ul (4.8-10.8)
[2021-12-31 19:51] LABS: INR 3.2 (0.9-1.1); Partial Thromboplastin Ratio 1.6; Prothrombin Time 32.4 Seconds (9.0-12.0)
[2021-12-31] MEDS ORDERED: LIDOCAINE 2% JELLY 5 ML TUBE ONE (20:02)
--- NOTE | 2021-12-31 20:11 | CT Scan Report ---
CT abd pelvis wo con CLINICAL HISTORY: urinary issues, poss hydro or obstruction TECHNIQUE: Helical axial images of the abdomen and pelvis were obtained. Automated dose lowering tech niques and/or adjustment according to patient size were utilized for this exam. This exam was perfor med without intravenous contrast. CT DOSE: 1014.63 mGycm COMPARISON: Comparison is made to CT abdomen pelvis 10/04/2021 FINDINGS: Lower chest: Small bilateral pleural effusions are seen with associated atelectasis. Liver: Unremarkable. No focal lesions are seen. Gallbladder and biliary tree: No calcified gallstones. Normal caliber wall. No intra- or extrahepatic biliary ductal dilation. Pancreas: Unremarkable, no focal lesions. 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 Adrenals: Unremarkable. Kidneys and ureters: Perinephric stranding is noted bilaterally. No hydronephrosis is seen. Bladder: Cherry catheter is seen. There is thickening of the bladder wall. Reproductive organs: Unremarkable. Bowel: Unremarkable. Lymph nodes Retroperitoneal: Unremarkable. Pelvic: Unremarkable. Mesenteric: Unremarkable. Peritoneum: Normal. Vessels: Atherosclerotic calcifications are seen. Abdominal wall: Unremarkable. Bones: Degenerative changes in the visualized spine. Cement arthroplasty of an L1 compression deformi ty is noted. Total right hip arthroplasty is seen. Old healed 12th rib fracture is seen on the right. IMPRESSION: 1. No evidence of hydronephrosis or obstruction. 2. The bladder is collapsed about a Cherry catheter. However, the bladder wall appears chronically th ickened, comparable to prior exam. Cystitis cannot be excluded, correlation with urinalysis is recomm ended. ACT 112: Negative or not required by law. Electronically signed by: Brandon Jimenez M.D. 12/31/2021 8:10 PM
[2021-12-31 20:51] LABS: Albumin Globulin Ratio 0.7 (0.9-2); Albumin Level 3.3 gm/dl (3.4-5.0); BUN Creatinine Ratio 18.8 (10-20); Bilirubin,Total 0.6 mg/dl (0.2-1.0); Calcium 8.8 mg/dl (8.5-10.1); Creatinine Clr Calc Pharmacy 52.9 ml/min; Est GFR (African American) 58.3 ml/min; Est GFR (Non-African American) 50.3 ml/min; Globulin 4.5 gm/dl (2.5-4.0); Magnesium 1.6 mg/dl (1.7-2.4); Potassium 4.9 mmol/L (3.5-5.1); Total Protein 7.8 gm/dl (6.0-8.3)
[2021-12-31] MEDS ORDERED: SODIUM CHLORIDE 0.9% 1000ML 1,000 ML IV ONE (20:57)
[2021-12-31] MEDS ORDERED: CEFEPIME 2,000 MG/20 ML VIAL IV STA (20:57)
[2021-12-31] MEDS ORDERED: FUROSEMIDE 40 MG/4 ML VIAL IV ONE (21:00)
[2021-12-31] MEDS ORDERED: NovoLIN-R INSULIN PER UNIT CHARGE IV STA (21:02)
[2021-12-31 21:07] LABS: Appearance Urine Clear (Clear); Bacteria Urine Automated Negative (Negative); Bilirubin Urine Negative (Negative); Blood Urine 2+ (Negative); Color Urine Yellow; Epithelial Cell Urine Auto >30 /lpf (0-5); Glucose Urine UA 1+ (Negative); Ketones Urine Negative (Negative); Leukocyte Esterase Urine 1+ (Negative); Nitrite Urine Negative (Negative); Protein Urine Negative (Negative); Specific Gravity Urine 1.012 (1.000-1.030); Urobilinogen Urine Negative (Negative)
[2021-12-31] MEDS ORDERED: LANTUS PER UNIT CHARGE SQ STA (23:19)
--- NOTE | 2021-12-31 23:26 | History & Physical Report ---
Date of Service December 31, 2021 Assessment & Plan (1) Decompensated heart failure: Plan: hx chronic diastolic heart failure (EF 55%, TTE 2021) valvular heart disease (moderate to severe , MR, TR on TTE 09/2021) Complicated UTI hx recurrent UTIs on chronic methenamine suppression Rx urinary retention status post chronic indwelling Cherry catheter hx CAD status post CABG/stenting PAF/SSS sp PPM on Coumadin, INR slightly supratherapeutic hypertension, stable hyperlipidemia, on statin Rx DM2, insulin requiring, suboptimal control as of recent hemoglobin A1c of 11.3 last November 2021 pancreatic tumor (high-grade dysplasia on pathology ) status post surgery Chronic anemia, hemoglobin at baseline hx ICH History dementia, mentation at baseline past tobacco abuse PCU Diuretic rx Strict I/Os, daily weights, CHF education, fluid restriction Cardiology consult Re: Decompensated heart failure (Patient missed appointment 3 months ago, last outpatient visit was almost a year ago.) Urine CS, Cefepime Urology consult as per patient daughter request Re: Urinary retention, follow-up visit Basal insulin, ISS BG goal 1 10-1 40, carb count coverage DVT prophylaxis. Coumadin INR between 2 and 3 DNR as per patient's prior directives as per daughter/medical POA, Mony Sravanthi Lazo. She requests updates from providers through [phone]. Text document was generated using [employer] voice recognition software. It may contain grammatical or spelling errors. Kindly contact undersigned for clarification of any documentation item in question. History of Present Illness Chief Complaint: My daughter told me to come. Urinary issues as per daughter. Primary Care Provider: [facility] History obtained from patient, patient's daughter, and records. History somewhat limited from patient secondary to dementia. Medical history significant for chronic diastolic heart failure (EF 55%, TTE 2021), CAD status post CABG/stenting, PAF/SSS sp PPM Coumadin, valvular heart disease (moderate to severe , MR, TR on TTE 09/2021), hypertension, hyperlipidemia, DM2, insulin requiring, pancreatic tumor (high-grade dysplasia on pathology ) status post surgery, urinary retention status post chronic indwelling Cherry catheter, recurrent UTIs on chronic methenamine suppression Rx, chronic anemia (baseline hemoglobin 9-10 ), past tobacco abuse, dementia, history of ICH as per records. Last confinement November 2021 for hyperglycemia and Pseudomonas UTI. Patient discharged on Ciprofloxacin course to [facility] care [facility] Patient with persistent genitourinary discomfort from Cherry catheter for some time now as per daughter. Worsening discomfort 2 days ago. Possible penile bleed. Patient brought to the ER for evaluation Ciprofloxacin prescribed for possible UTI. Outpatient urology follow-up recommended. Patient will be seen by urology until next week as per patient daughter. Increased discomfort and penile discharge as per records. Patient brought to ER as per daughter request. Patient denies chest pain, SOB, bladder discomfort. Patient legs more swollen than usual as per daughter when per read by ER provider. IV cefepime and Cherry catheter replaced at the ER. IV Lasix administered at the ER for CHF.. MEDICAL HISTORY: As above. 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 Allergies Allergy/AdvReac Type Severity Reaction Status Date / Time shellfish derived Allergy Severe anaphylaxis Verified 12/31/21 21:44 clopidogrel Allergy Intermediate INTERNAL Verified 12/31/21 21:44 HIVES Penicillins Allergy Intermediate HIVES Verified 12/31/21 21:44 Home Medications Medication Instructions Recorded Confirmed Type nitroglycerin 0.4 mg sublingual 0.4 mg sublingual UD PRN Chest Pain 09/04/18 12/31/21 History tablet (Nitrostat) acetaminophen 325 mg tablet 650 mg PO Q6H PRN Pain #60 tabs 08/21/21 12/31/21 Rx (Tylenol) albuterol sulfate 90 mcg/actuation 2 puff inhalation Q6H PRN Wheezing 08/21/21 12/31/21 Rx aerosol inhaler #6.7 grams amlodipine 5 mg tablet 5 mg PO DAILY #30 tabs 08/21/21 12/31/21 Rx aspirin 81 mg tablet,delayed 81 mg PO QAM #30 tabs 08/21/21 12/31/21 Rx release isosorbide mononitrate 60 mg 60 mg PO QAM #30 tabs 08/21/21 12/31/21 Rx tablet,extended release 24 hr losartan 50 mg tablet 50 mg PO QAM #30 tabs 08/21/21 12/31/21 Rx sennosides 8.6 mg tablet (Senokot) 8.6 - 17.2 mg PO HS PRN 08/21/21 12/31/21 Rx Constipation #30 tabs tamsulosin 0.4 mg capsule 0.4 mg PO HS #30 caps 08/21/21 12/31/21 Rx Qc Antacid Tabs 750 mg PO TID PRN Indigestion 09/04/21 12/31/21 History atorvastatin 40 mg tablet 40 mg PO HS 09/04/21 12/31/21 History furosemide 40 mg tablet 40 mg PO QAM 09/04/21 12/31/21 History pantoprazole 40 mg tablet,delayed 40 mg PO HS 09/04/21 12/31/21 History release warfarin 5 mg tablet 5 mg PO WK 09/04/21 12/31/21 History warfarin 2.5 mg tablet (Jantoven) 2.5 mg PO 6XWK 10/04/21 12/31/21 History dutasteride 0.5 mg capsule 0.5 mg PO DAILY #30 caps 10/20/21 12/31/21 Rx methenamine hippurate 1 gram tablet 1 g PO DAILY #30 tabs 10/22/21 12/31/21 Rx insulin glargine 100 unit/mL (3 14 unit subcut QAM 12/13/21 12/31/21 History mL) subcutaneous pen (Lantus Solostar U-100 Insulin) ciprofloxacin HCl 500 mg tablet 500 mg PO Q12H 3 days #5 tabs 12/29/21 12/31/21 Rx clindamycin HCl 300 mg capsule 600 mg PO DIRECTED PRN PRIOR TO 12/31/21 12/31/21 History DENTAL APPT. nystatin 100,000 unit/gram topical 1 applic topical TID 12/31/21 12/31/21 History cream Past Med/Surg History Medical History ACS (acute coronary syndrome) CAD (coronary artery disease) Chronic anticoagulation Dementia DM type 2 (diabetes mellitus, type 2) DNR (do not resuscitate) Dyslipidemia Dyspnea on exertion Gout History of cerebral hemorrhage HTN (hypertension) Pacemaker Pancreatic cancer Paroxysmal atrial fibrillation Sinus node dysfunction SSS (sick sinus syndrome) Surgical History H/O arthroscopic knee surgery H/O colonoscopy H/O esophagogastroduodenoscopy H/O inguinal hernia repair History of pancreatectomy "07/15/2010 Dr. Pacheco [facility] [place] S/P CABG x 1 S/P coronary artery stent placement "03/29/03 cardiac cath: RCA - stent of 90% lesion, L circ obtuse kenneth - stent of 80% lesion " S/P splenectomy S/P tonsillectomy and adenoidectomy Family History Other Family history non-contributory Social History Smoking Status: Former smoker Tobacco Type: Cigarettes Do You Dip or Chew Tobacco: No; Hx Alcohol Use: Yes Alcohol type: beer Hx Substance Use: No Preferred Language: Chilean Communication Ability: Effective Header Setup Operator Required: No Beliefs That Will Affect Care: None and Christian marital status: / Current Living Situation: Personal Care Facility Current Living Situation Comment: Assisted living current occupational status: retired How many Children do You have: 2 Other Information That Helps Us Care for You: No Feels Safe at Home: Yes Safety Concerns: Feels Safe At This Time Assistive Devices: Walker Review of Systems Review of Systems: Could not be reliably obtained secondary to dementia Physical Exam Physical Exam: GENERAL: Comfortable, pleasant, hard of hearing, demented, obese, no respiratory distress SKIN: Pallor, warm HEENT: Alopecia, pale palpebral conjunctivae, no ptosis, dry buccal mucosa NECK : Supple, no tenderness CHEST : CTA, no tenderness HEART : RRR, systolic murmur heard over precordium ABDOMEN: Some distention, nontender EXTREMITIES : Bilateral LE swelling, no LE tenderness, no other conspicuous deformities noted NEUROLOGIC : Oriented to day, no facial asymmetry, hard of hearing, gait and stance not assessed Results & Data Results & Data ([facility]) Vital Signs (Past 12 Hours) Vital Signs Temp Pulse Pulse Resp BP BP Pulse Ox 12/31/21 21:46 95 12/31/21 21:45 60 18 139/74 95 12/31/21 18:09 36.6 C 85 18 147/88 H 95 O2 Del Method 12/31/21 21:46 08/11/22 21:45 Room Air 12/31/21 18:09 Room Air Laboratory Results Laboratory Results WBC 11.53 K/ul (4.8-10.8) H 01/01/22 06:14 RBC 3.47 M/uL (4.63-6.08) L 01/01/22 06:14 Hgb 9.8 g/dl (14.0-18.0) L 01/01/22 06:14 Hct 29.8 % (40.1-51.0) L 01/01/22 06:14 MCV 85.9 fL (80.0-100.0) 01/01/22 06:14 MCH 28.2 pg (25.0-34.0) 01/01/22 06:14 MCHC 32.9 g/dL (32.0-36.0) 01/01/22 06:14 RDW Std Deviation 49.1 fL (36.4-46.3) H 01/01/22 06:14 RDW Coeff of Trevon 15.7 % (11.5-14.5) H 01/01/22 06:14 Plt Count 238 K/uL (130-400) 01/01/22 06:14 MPV 10.1 fL (9.4-12.4) 01/01/22 06:14 Immature Gran % (Auto) 0.7 % 01/01/22 06:14 Neut % (Auto) 38.5 % 01/01/22 06:14 Lymph % (Auto) 18.0 % 01/01/22 06:14 [place] % (Auto) 11.9 % 01/01/22 06:14 Eos % (Auto) 30.2 % 01/01/22 06:14 Baso % (Auto) 0.7 % 01/01/22 06:14 Neut # (Auto) 4.44 K/uL (1.4-6.5) 01/01/22 06:14 Lymph # (Auto) 2.08 K/uL (1.2-3.4) 01/01/22 06:14 [place] # (Auto) 1.37 K/uL (0.24-0.82) H 01/01/22 06:14 Eos # (Auto) 3.48 K/uL (0-0.50) H 01/01/22 06:14 Baso # (Auto) 0.08 K/uL (0-0.2) 01/01/22 06:14 Immature Gran # (Auto) 0.08 K/uL (0.00-0.02) H 01/01/22 06:14 PT 33.3 Seconds (9.0-12.0) H 01/01/22 06:14 INR 3.3 (0.9-1.1) H 01/01/22 06:14 APTT 43.0 Seconds (21.0-31.0) H 12/31/21 19:25 PTT Ratio 1.6 12/31/21 19:25 Sodium 135 mmol/L (136-145) L 01/01/22 06:14 Potassium 4.1 mmol/L (3.5-5.1) 01/01/22 06:14 Chloride 103 mmol/L (98-107) 01/01/22 06:14 Carbon Dioxide 24 mmol/L (21-32) 01/01/22 06:14 Anion Gap 8 (3-11) 01/01/22 06:14 BUN 23 mg/dl (6-23) 01/01/22 06:14 Creatinine 1.17 mg/dl (0.6-1.4) 01/01/22 06:14 Est Cr Clr Drug Dosing 57.8 ml/min 01/01/22 06:14 Est GFR ( Amer) 65.0 ml/min 01/01/22 06:14 Est GFR (Non-Af Amer) 56.1 ml/min 01/01/22 06:14 BUN/Creatinine Ratio 19.7 (10-20) 01/01/22 06:14 Glucose 133 mg/dl (70-99(Fasting)) H 01/01/22 06:14 POC Glucose 134 mg/dl (70-99) H 01/01/22 07:38 Calcium 8.9 mg/dl (8.5-10.1) 01/01/22 06:14 Magnesium 1.7 mg/dl (1.7-2.4) 01/01/22 06:14 Total Bilirubin 0.6 mg/dl (0.2-1.0) 12/31/21 19:25 AST 15 U/L (13-39) 12/31/21 19:25 ALT 13 U/L (7-52) 12/31/21 19:25 Alkaline Phosphatase 121 U/L (34-104) H 12/31/21 19:25 B-Natriuretic Peptide 139 pg/ml (0-100) H 12/31/21 19:25 Total Protein 7.8 gm/dl (6.0-8.3) 12/31/21 19:25 Albumin 3.3 gm/dl (3.4-5.0) L 12/31/21 19: Globulin 4.5 gm/dl (2.5-4.0) H 12/31/21 19:25 Albumin/Globulin Ratio 0.7 (0.9-2) L 12/31/21 19:25 TSH 3.071 uIu/ml (0.300-4.500) 12/31/21 19:25 Urine Color Yellow 12/31/21 20:24 Urine Appearance Clear (Clear) 12/31/21 20:24 Urine pH 5.0 (4.5-7.5) 12/31/21 20:24 Ur Specific [place] 1.012 (1.000-1.030) 12/31/21 20:24 Urine Protein Negative (Negative) 12/31/21 20:24 Urine Glucose (UA) 1+ (Negative) H 12/31/21 20:24 Urine Ketones Negative (Negative) 12/31/21 20:24 Urine Blood 2+ (Negative) H 12/31/21 20:24 Urine Nitrite Negative (Negative) 12/31/21 20:24 Urine Bilirubin Negative (Negative) 12/31/21 20:24 Urine Urobilinogen Negative (Negative) 12/31/21 20:24 Ur Leukocyte Esterase 1+ (Negative) H 12/31/21 20:24 Urine WBC (Auto) 10-30 /hpf (0-5) H 12/31/21 20:24 Urine RBC (Auto) 10-30 /hpf (0-4) H 12/31/21 20:24 U Hyaline Cast (Auto) 1-5 /lpf (0-5) 12/31/21 20:24 U Epithel Cells (Auto) >30 /lpf (0-5) H 12/31/21 20:24 Urine Bacteria (Auto) Negative (Negative) 12/31/21 20:24 Nasal Screen MRSA (PCR) Negative (Negative) 01/01/22 06:22 SARS-CoV-2, RNA, NAAT NEGATIVE (NEGATIVE) 12/31/21 21:41 Impressions Abdomen/Pelvis CT 12/31/21 18:25 CT abd pelvis wo con CLINICAL HISTORY: urinary issues, poss hydro or obstruction TECHNIQUE: Helical axial images of the abdomen and pelvis were obtained. Automated dose lowering techniques and/or adjustment according to patient size were utilized for this exam. This exam was performed without intravenous contrast. CT DOSE: 1014.63 mGycm COMPARISON: Comparison is made to CT abdomen pelvis 10/04/2021 FINDINGS: Lower chest: Small bilateral pleural effusions are seen with associated atelectasis. Liver: Unremarkable. No focal lesions are seen. Gallbladder and biliary tree: No calcified gallstones. Normal caliber wall. No intra- or extrahepatic biliary ductal dilation. Pancreas: Unremarkable, no focal lesions. 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 Adrenals: Unremarkable. Kidneys and ureters: Perinephric stranding is noted bilaterally. No hydronephrosis is seen. Bladder: Cherry catheter is seen. There is thickening of the bladder wall. Reproductive organs: Unremarkable. Bowel: Unremarkable. Lymph nodes Retroperitoneal: Unremarkable. Pelvic: Unremarkable. Mesenteric: Unremarkable. Peritoneum: Normal. Vessels: Atherosclerotic calcifications are seen. Abdominal wall: Unremarkable. Bones: Degenerative changes in the visualized spine. Cement arthroplasty of an L1 compression deformity is noted. Total right hip arthroplasty is seen. Old healed 12th rib fracture is seen on the right. IMPRESSION: 1. No evidence of hydronephrosis or obstruction. 2. The bladder is collapsed about a Cherry catheter. However, the bladder wall a ppears chronically thickened, comparable to prior exam. Cystitis cannot be excluded, correlation with urinalysis is recommended. ACT 112: Negative or not required by law. Electronically signed by: Brandon Jimenez M.D. 12/31/2021 8:10 PM Chest X-Ray 12/31/21 18:25 XR chest 1V portable CLINICAL HISTORY: sob TECHNIQUE: Single frontal radiograph of the chest was obtained. Comparison: Comparison is made to chest radiograph 12/13/2021 FINDINGS: Median sternotomy wires are unchanged. Dual-lead pacemaker is seen. Cardiomegaly is noted. Prominence and cephalization of the vasculature is seen. No evidence of pleural effusion or pneumothorax. IMPRESSION: 1. Cardiomegaly and mild pulmonary edema. 2. No evidence of pneumonia. ACT 112: Negative or not required by law. Electronically signed by: Brandon Jimenez M.D. 12/31/2021 6:43 PM
[2021-12-31] MEDS ORDERED: MAGNESIUM SULFATE / D5W 1 GM/100 ML BAG IV ONE (23:30)
[2022-01-01] MEDS ORDERED: GLUCAGON FOR INJ 1 MG VIAL SQ PRN (02:04)
[2022-01-01] MEDS ORDERED: ACETAMINOPHEN 325 MG TAB PO PRN ×2 (02:04)
[2022-01-01] MEDS ORDERED: traMADol HCL 50 MG TABLET PO PRN (02:04)
[2022-01-01] MEDS ORDERED: SENNA 8.6 MG TAB PO PRN (02:04)
[2022-01-01] MEDS ORDERED: GLUCOSE 40% GEL 15 GM TUBE PO PRN (02:04)
[2022-01-01] MEDS ORDERED: PROMETHAZINE HCL 12.5 MG in SODIUM CHLORIDE 0.9% 50 ML IV PRN (02:04)
[2022-01-01] MEDS ORDERED: CARBOHYDRATES FOR HYPOGLYCEMIA PO PRN (02:04)
[2022-01-01] MEDS ORDERED: GLUCOSE 10 TAB/TUBE PO PRN (02:04)
[2022-01-01] MEDS ORDERED: DEXTROSE 50% 50 ML SYRINGE IV PRN (02:04)
[2022-01-01] MEDS: INSULIN ASPART PER UNIT SC SCH ×5 (03:27→20:31)
[2022-01-01 06:43] LABS: Basophils # (auto) 0.08 K/uL (0-0.2); Basophils % (auto) 0.7 %; Eosinophils # (auto) 3.48 K/uL (0-0.50); Eosinophils % (auto) 30.2 %; Hematocrit (blood only) 29.8 % (40.1-51.0); Hemoglobin 9.8 g/dl (14.0-18.0); Immature Granulocytes # (auto) 0.08 K/uL (0.00-0.02); Immature Granulocytes % (auto) 0.7 %; Lymphocytes # (auto) 2.08 K/uL (1.2-3.4); Mean Corpuscular Hemoglobin 28.2 pg (25.0-34.0); Mean Corpuscular Hgb Conc 32.9 g/dL (32.0-36.0); Mean Corpuscular Volume 85.9 fL (80.0-100.0); Mean Platelet Volume 10.1 fL (9.4-12.4); Monocytes # (auto) 1.37 K/uL (0.24-0.82); Monocytes % (auto) 11.9 %; Neutrophils # (auto) 4.44 K/uL (1.4-6.5); Neutrophils % (auto) 38.5 %; Platelet Count 238 K/uL (130-400); RDW Coefficient of Variation 15.7 % (11.5-14.5); RDW Standard Deviation 49.1 fL (36.4-46.3); Red Blood Count 3.47 M/uL (4.63-6.08); White Blood Count 11.53 K/ul (4.8-10.8)
[2022-01-01 06:49] LABS: INR 3.3 (0.9-1.1); Prothrombin Time 33.3 Seconds (9.0-12.0)
[2022-01-01 07:38] LABS: BUN Creatinine Ratio 19.7 (10-20); Calcium 8.9 mg/dl (8.5-10.1); Creatinine Clr Calc Pharmacy 57.8 ml/min; Est GFR (Non-African American) 56.1 ml/min; Magnesium 1.7 mg/dl (1.7-2.4); Potassium 4.1 mmol/L (3.5-5.1)
[2022-01-01] MEDS: ASPIRIN 81 MG ECTAB PO SCH (08:00)
[2022-01-01] MEDS ORDERED: CEFEPIME 2,000 MG in SYRINGE 0 ML IV SCH (08:00)
[2022-01-01] MEDS: LOSARTAN POTASSIUM 50 MG TAB PO SCH (08:00)
[2022-01-01] MEDS: ISOSORBIDE MONO EXTENDED REL 60 MG TABCR PO SCH (08:00)
[2022-01-01] MEDS ORDERED: FUROSEMIDE 40 MG/4 ML VIAL IV ONE (08:00)
[2022-01-01] MEDS: CEFEPIME 1,000 MG in SYRINGE 0 ML IV SCH ×2 (08:00→20:26)
[2022-01-01] MEDS ORDERED: amLODIPine BESYLATE 5 MG TAB PO SCH (09:00)
[2022-01-01] MEDS: LANTUS PER UNIT CHARGE SQ SCH (09:12)
--- NOTE | 2022-01-01 09:55 | Urology Consultation ---
Date of Consultation January 01, 2022 Assessment & Plan (1) Chronic indwelling Cherry catheter: (2) Penile erosion: Plan 86yo M with a chronic indwelling Cherry catheter admitted with decompensated heart failure, possible complicated UTI. CTAP reviewed- No hydronephrosis or obstruction; Cherry catheter decompressed around bladder; Bladder wall thickening noted. Afebrile and hemodynamically stable. Labs reviewed-mild leukocytosis, normal renal function. Urine culture from 12/29 negative, repeat urine culture pending. On IV cefepime, follow culture. No acute intervention warranted. Cherry catheter was exchanged 12/31 in ED. Recommend continuing Cherry catheter until outpatient follow-up with urology. Continue supportive care and antibiotic therapy. Plan for outpatient follow-up with urology as scheduled on 01/21. Urology will sign-off for now. Please contact us with any further questions, concerns, or changes in patient status. History of Present Illness Reason for Consultation: urinary retention ffup as per daughter request Attending Physician: Rosamaria Kramer DO History of Present Illness 86-year-old male with multiple comorbidities who presented to the ED yesterday from [facility] with complaints of worsening discomfort and drainage from Cherry catheter. Patient was seen in the ED 2 days prior for similar complaints and was started on ciprofloxacin for possible UTI. However his culture finalized and was negative for infection. On arrival he was afebrile and hemodynamically stable. Labs showing mild leukocytosis and normal renal function. Urinalysis with 2+ blood, 1+ LE, negative bacteria, negative nitrite. He was started on IV cefepime and his Cherry catheter was replaced in the ED. He was also noted to have increased edema in bilateral lower extremities. He was admitted to medicine for further management. Urology consulted for urinary retention follow-up per daughter request. Patient examined at bedside in the ED. Awake, resting in bed on arrival. No acute distress. Denies any pain or discomfort at present. Significant erosion of urinary catheter on exam was noted. Small amount of purulent drainage noted around catheter insertion site. Patient denied any pain or discomfort. No redness or swelling was noted. Cherry catheter was intact and draining clear yellow urine. No fevers or chills. No nausea or vomiting. Tolerating diet. Patient denied any other complaints or concerns at that time. He is known to the urology service, follows with Dr. Mayes. Was recently seen in the office for cystoscopy. Patient was found to have a large prostate with significant trabeculation on cystoscopy and failed a voiding trial. The catheter was replaced and the plan was to continue with dutasteride and follow- up in 1 month in our office for possible voiding trial. Patient was scheduled for next week in the urology clinic for catheter exchange versus voiding trial. Allergies Allergy/AdvReac Type Severity Reaction Status Date / Time shellfish derived Allergy Severe anaphylaxis Verified 12/31/21 21:44 clopidogrel Allergy Intermediate INTERNAL Verified 12/31/21 21:44 HIVES Penicillins Allergy Intermediate HIVES Verified 12/31/21 21:44 Home Medications Medication Instructions Recorded Confirmed Type nitroglycerin 0.4 mg sublingual 0.4 mg sublingual UD PRN Chest Pain 09/04/18 History tablet (Nitrostat) acetaminophen 325 mg tablet 650 mg PO Q6H PRN Pain #60 tabs 08/21/21 12/31/21 Rx (Tylenol) albuterol sulfate 90 mcg/actuation 2 puff inhalation Q6H PRN Wheezing 08/21/21 12/31/21 Rx aerosol inhaler #6.7 grams amlodipine 5 mg tablet 5 mg PO DAILY #30 tabs 08/21/21 12/31/21 Rx aspirin 81 mg tablet,delayed 81 mg PO QAM #30 tabs 08/21/21 12/31/21 Rx release isosorbide mononitrate 60 mg 60 mg PO QAM #30 tabs 08/21/21 12/31/21 Rx tablet,extended release 24 hr losartan 50 mg tablet 50 mg PO QAM #30 tabs 08/21/21 12/31/21 Rx sennosides 8.6 mg tablet (Senokot) 8.6 - 17.2 mg PO HS PRN 08/21/21 12/31/21 Rx Constipation #30 tabs tamsulosin 0.4 mg capsule 0.4 mg PO HS #30 caps 08/21/21 12/31/21 Rx Qc Antacid Tabs 750 mg PO TID PRN Indigestion 09/04/21 12/31/21 History atorvastatin 40 mg tablet 40 mg PO HS 09/04/21 12/31/21 History furosemide 40 mg tablet 40 mg PO QAM 09/04/21 12/31/21 History pantoprazole 40 mg tablet,delayed 40 mg PO HS 09/04/21 12/31/21 History release warfarin 5 mg tablet 5 mg PO WK 09/04/21 12/31/21 History warfarin 2.5 mg tablet (Jantoven) 2.5 mg PO 6XWK 10/04/21 12/31/21 History dutasteride 0.5 mg capsule 0.5 mg PO DAILY #30 caps 10/20/21 12/31/21 Rx methenamine hippurate 1 gram tablet 1 g PO DAILY #30 tabs 10/22/21 12/31/21 Rx insulin glargine 100 unit/mL (3 14 unit subcut QAM 12/13/21 12/31/21 History mL) subcutaneous pen (Lantus Solostar U-100 Insulin) ciprofloxacin HCl 500 mg tablet 500 mg PO Q12H 3 days #5 tabs 12/29/21 12/31/21 Rx clindamycin HCl 300 mg capsule 600 mg PO DIRECTED PRN PRIOR TO 12/31/21 12/31/21 History DENTAL APPT. nystatin 100,000 unit/gram topical 1 applic topical TID 12/31/21 12/31/21 History cream Patient History Medical History ACS (acute coronary syndrome) CAD (coronary artery disease) Chronic anticoagulation Dementia DM type 2 (diabetes mellitus, type 2) DNR (do not resuscitate) Dyslipidemia Dyspnea on exertion Gout History of cerebral hemorrhage HTN (hypertension) Pacemaker Pancreatic cancer Paroxysmal atrial fibrillation Sinus node dysfunction SSS (sick sinus syndrome) Surgical History H/O arthroscopic knee surgery H/O colonoscopy H/O esophagogastroduodenoscopy H/O inguinal hernia repair History of pancreatectomy "07/15/2010 Dr. Pacheco [facility] [place] " S/P CABG x 1 S/P coronary artery stent placement "03/29/03 cardiac cath: RCA - stent of 90% lesion, L circ obtuse kenneth - stent of 80% lesion " S/P splenectomy S/P tonsillectomy and adenoidectomy Family History Other Family history non-contributory Social History Smoking Status: Former smoker Tobacco Type: Cigarettes Do You Dip or Chew Tobacco: No; Hx Alcohol Use: Yes Alcohol type: beer Hx Substance Use: No Preferred Language: Latvian Communication Ability: Effective Materials Supervisor Required: No Beliefs That Will Affect Care: None and Baptism marital status: / Current Living Situation: Personal Care Facility Current Living Situation Comment: Assisted living current occupational status: retired How many Children do You have: 2 Other Information That Helps Us Care for You: No Feels Safe at Home: Yes Safety Concerns: Feels Safe At This Time Assistive Devices: Walker Physical Exam Constitutional: no acute distress Neck: normal visual inspection Respiratory: no respiratory distress and no labored breathing Gastrointestinal (Abdomen): Inspection/Auscultation: abdomen normal to inspection Musculoskeletal: Head/Neck/Chest: normocephalic Skin: Warm and dry. No visible rashes. Neurologic: awake Psychiatric: Orientation: alert, oriented x 3 and cooperative Genitourinary: Cherry catheter intact, draining clear yellow urine. Erosion of catheter through the inferior portion of the meatus. Small amount of purulent drainage noted around catheter insertion site. No pain, erythema, or edema noted to site. Results & Data ([facility]) Vital Signs (Past 12 Hours) Vital Signs Pulse Pulse Resp BP BP Pulse Ox Pulse Ox 01/01/22 08:02 94 01/01/22 08:02 60 18 140/74 94 01/01/22 03:30 62 18 141/68 H 94 01/01/22 02:04 92 01/01/22 01:00 68 18 132/59 L 95 12/31/21 23:00 62 18 130/66 96 O2 Del Method O2 Del Method 01/01/22 08:02 Room Air 01/01/22 08:02 Room Air 01/01/22 03:30 01/01/22 02:04 Room Air 01/01/22 01:00 12/31/21 23:[address] abdomen pelvis- 1. No evidence of hydronephrosis or obstruction. 2. The bladder is collapsed about a Cherry catheter. However, the bladder wall appears chronically thickened, comparable to prior exam. Cystitis cannot be excluded, correlation with urinalysis is recommended. PG Care Time/CCT Total # of Minutes Spent Total Time Spent with Patient: Total time spent is greater than 50% in coordination of care (as documented) at patient's floor/unit and/or counseling patient: Coding Level of Care Code 07781 Initial Inpt Care Lvl 2 Diagnoses Chronic indwelling Cherry catheter Z97.8 Penile erosion N48.89
--- NOTE | 2022-01-01 10:27 | Cardiology Consultation ---
Date of Consultation January 01, 2022 Assessment & Plan (1) Chronic indwelling Cherry catheter: (2) Decompensated heart failure: (3) Localized swelling of both lower legs: (4) ASCVD (arteriosclerotic cardiovascular disease): (5) S/P CABG x 2: (6) PAF (paroxysmal atrial fibrillation): Plan 86-year-old male admitted with issues related to chronic Cherry catheter. Work- up revealed evidence of acute, presumably diastolic, decompensated congestive heart failure with patient receiving 2 doses of 40 mg IV Lasix with significant urine output. Patient remains relatively asymptomatic in regards to heart failure decompensation. Amlodipine notably may be a contributing factor to the chronic fluid retention. Continue cautious diuretics for now, reassessing need for ongoing IV diuresis in the a.m. Resting echocardiography requested to assess systolic and diastolic function as well as current valvular status. Pacemaker interrogation requested. Amlodipine dosing will be reduced to 2.5 mg/day. Metoprolol succinate will be resumed for blood pressure and heart rate control, 50 mg once per day. Further recommendations pending the above, evaluation by Dr. Chowdhury, and patient's ongoing hospitalization. Supervising Physician Co-Signing Physician Notes Supervising Physician Attestation: I have personally performed a history and physical examination on the patient. I agree with the physician family and divorce legal assistant's findings and plan as documented with the following additions. Subjective: Patient without acute complaints. Cherry catheter in place draining clear yellow urine Exam: Ventricular paced rhythm in the 60s on telemetry Pulmonary: Mildly reduced breath sounds the bases Cardiovascular: Regular rhythm, 2/6 systolic murmur heard best at left sternal border 1+ bilateral lower extremity edema Data: Echocardiogram pending Assessment and Plan: Impression and plan as outlined in Mr. Rocha's note. Neurology input noted and appreciated, Cherry catheter exchanged 12/31/2021, with subsequent clinical improvement. Continue cefepime. Received furosemide 40 mg x 1 12/31/2021 at 2100, and another dose of 40 mg this morning at 8 AM. 2.8 L of urine output documented overnight last night and another 1.5 L of urine output noted at present. Will observe off of diuretic therapy at present. INR 3.3. DVT prophylaxis: Anticoagulated with Coumadin. Jaun Chowdhury, History of Present Illness Reason for Consultation: CHF Requesting Physician: O[place]er Attending Physician: Williams History of Present Illness Mr. Truman Little is a very pleasant 86-year-old male resident of [facility] who presented to the [facility] ER on 12/31/2021 with worsening discomfort and drainage from Cherry catheter. He was seen in the ER on 12/29/2021 for similar complaints and was prescribed ciprofloxacin for a possible UTI. His Cherry catheter was replaced with improvement. He was prescribed IV Cefepime. Due to increased lower extremity peripheral edema and chest x-ray findings of cardiomegaly with mild pulmonary edema, patient received 40 mg of IV furosemide in the emergency room and this consultation was requested. Recorded I's and O's are -2700 mL overall. The patient is not the best historian. He has a history of dementia. Patient specifically denies chest pain, increased dyspnea, cough, chest congestion, palpitations, orthopnea, or PND. No dizziness or syncope. No fevers or chills. No melena or hematochezia. Cardiac History: Ischemic heart disease Catheter based intervention with bare metal stent to RCA and left circumflex coronary arteries with bare metal stent in 2002. Status post CABG - CLEARY to LAD and a saphenous vein graft to obtuse marginal branch and a modified Maze procedure and occlusion of the left atrial appendage 03/06/07. November 2016 NSTEMI, POBA of the RPDA with residual 50% stenosis. Systolic and diastolic congestive heart failure. Paroxysmal atrial fibrillation and flutter. Hospitalization in November 2017 with confusion and acute on chronic dyspnea. Examination was notable for mild acute decompensated diastolic heart failure felt to be secondary to atrial fibrillation/flutter with a rapid ventricular response and inappropriate ventricular pacemaker pacing/activity. Device interrogation at that time revealed atrial fibrillation/flutter around 120 bpm and complete heart block; his device was tracking the atrial rate at 120 bpm. He was also noted to have frequent PVCs disrupting timing. Device reprogrammed to VVIR 60 bpm. 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 Hypertension. Hyperlipidemia. Family History: Father with a CVA at 62. Mother had hypertension, CVA and Alzheimer's. She in her 70s. Brother with CAD. Social History: Prior smoker, one pack per day x 30 years. Social alcohol. 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 . Lady friend, Nadia. Resident of [facility]. A complete and accurate review of systems was unable to be obtained due to the patient's memory impairment. Allergies Allergy/AdvReac Type Severity Reaction Status Date / Time shellfish derived Allergy Severe anaphylaxis Verified 12/31/21 21:44 clopidogrel Allergy Intermediate INTERNAL Verified 12/31/21 21:44 HIVES Penicillins Allergy Intermediate HIVES Verified 12/31/21 21:44 Home Medications Medication Instructions Recorded Confirmed Type nitroglycerin 0.4 mg sublingual 0.4 mg sublingual UD PRN Chest Pain 09/04/18 12/31/21 History tablet (Nitrostat) acetaminophen 325 mg tablet 650 mg PO Q6H PRN Pain #60 tabs 08/21/21 12/31/21 Rx (Tylenol) albuterol sulfate 90 mcg/actuation 2 puff inhalation Q6H PRN Wheezing 08/21/21 12/31/21 Rx aerosol inhaler #6.7 grams amlodipine 5 mg tablet 5 mg PO DAILY #30 tabs 08/21/21 12/31/21 Rx aspirin 81 mg tablet,delayed 81 mg PO QAM #30 tabs 08/21/21 12/31/21 Rx release isosorbide mononitrate 60 mg 60 mg PO QAM #30 tabs 08/21/21 12/31/21 Rx tablet,extended release 24 hr losartan 50 mg tablet 50 mg PO QAM #30 tabs 08/21/21 12/31/21 Rx sennosides 8.6 mg tablet (Senokot) 8.6 - 17.2 mg PO HS PRN 08/21/21 12/31/21 Rx Constipation #30 tabs tamsulosin 0.4 mg capsule 0.4 mg PO HS #30 caps 08/21/21 12/31/21 Rx Qc Antacid Tabs 750 mg PO TID PRN Indigestion 09/04/21 12/31/21 History atorvastatin 40 mg tablet 40 mg PO HS 09/04/21 12/31/21 History furosemide 40 mg tablet 40 mg PO QAM 09/04/21 12/31/21 History pantoprazole 40 mg tablet,delayed 40 mg PO HS 09/04/21 12/31/21 History release warfarin 5 mg tablet 5 mg PO WK 09/04/21 12/31/21 History warfarin 2.5 mg tablet (Jantoven) 2.5 mg PO 6XWK 10/04/21 12/31/21 History dutasteride 0.5 mg capsule 0.5 mg PO DAILY #30 caps 10/20/21 12/31/21 Rx methenamine hippurate 1 gram tablet 1 g PO DAILY #30 tabs 10/22/21 12/31/21 Rx insulin glargine 100 unit/mL (3 14 unit subcut QAM 12/13/21 12/31/21 History mL) subcutaneous pen (Lantus Solostar U-100 Insulin) ciprofloxacin HCl 500 mg tablet 500 mg PO Q12H 3 days #5 tabs 12/29/21 12/31/21 Rx clindamycin HCl 300 mg capsule 600 mg PO DIRECTED PRN PRIOR TO 12/31/21 12/31/21 History DENTAL APPT. nystatin 100,000 unit/gram topical 1 applic topical TID 12/31/21 12/31/21 History cream Patient History Medical History ACS (acute coronary syndrome) CAD (coronary artery disease) Chronic anticoagulation Dementia DM type 2 (diabetes mellitus, type 2) DNR (do not resuscitate) Dyslipidemia Dyspnea on exertion Gout History of cerebral hemorrhage HTN (hypertension) Pacemaker Pancreatic cancer Paroxysmal atrial fibrillation Sinus node dysfunction SSS (sick sinus syndrome) Surgical History H/O arthroscopic knee surgery H/O colonoscopy H/O esophagogastroduodenoscopy H/O inguinal hernia repair History of pancreatectomy "07/15/2010 Dr. [place] [facility] [place] S/P CABG x 1 S/P coronary artery stent placement "03/29/03 cardiac cath: RCA - stent of 90% lesion, L circ obtuse kenneth - stent of 80% lesion " S/P splenectomy S/P tonsillectomy and adenoidectomy Family History Other Family history non-contributory Social History Smoking Status: Former smoker Tobacco Type: Cigarettes Do You Dip or Chew Tobacco: No; Hx Alcohol Use: Yes Alcohol type: beer Hx Substance Use: No Preferred Language: Gibraltarian Communication Ability: Effective Laboratory Director Required: No Beliefs That Will Affect Care: None and Mandaeism marital status: / Current Living Situation: Personal Care Facility Current Living Situation Comment: Assisted living current occupational status: retired How many Children do You have: 2 Other Information That Helps Us Care for You: No Feels Safe at Home: Yes Safety Concerns: Feels Safe At This Time Assistive Devices: Walker Review of Systems Review of Systems: All systems reviewed & are unremarkable except as noted in HPI & below Physical Exam Physical Exam: General: A&Ox3. NAD. HENT: Normocephalic. Atraumatic. Eyes: PER. Conjunctiva pink, sclera clear. Neck: Bilateral carotid bruits. No JVD. Heart: Regular, paced, 60 bpm. Grade II/ systolic murmur heard throughout the precordium. No diastolic murmur. No rub. Lungs: Faint right basilar rales. No wheeze. Abdomen: +BS. Soft. Nontender. No masses or organomegaly. Extremities: 1+ chronic indurated edema. No clubbing. No cyanosis. Pulses: radial=2/4, posterior tibial=2/4. Results & Data ([facility]) Vital Signs (Past 12 Hours) Vital Signs Pulse Pulse Resp BP BP Pulse Ox Pulse Ox 01/01/22 08:02 94 01/01/22 08:02 60 18 140/74 94 01/01/22 03:30 62 18 141/68 H 94 01/01/22 02:04 92 01/01/22 01:00 68 18 132/59 L 95 12/31/21 23:00 62 18 130/66 96 O2 Del Method O2 Del Method 01/01/22 08:02 Room Air 01/01/22 08:02 Room Air 01/01/22 03:30 01/01/22 02:04 Room Air 01/01/22 01:00 12/31/21 23:00 Laboratory Results Cardiac Enzymes 12/31/21 12/31/21 Range/Units 19:25 19:25 AST 15 (13-39) U/L B-Natriuretic Peptide 139 H (0-100) pg/ml Coagulation 12/31/21 12/31/21 01/01/22 Range/Units 19:25 19:25 06:14 PT 32.4 H 33.3 H (9.0-12.0) Seconds APTT 43.0 H (21.0-31.0) Seconds B-Natriuretic Peptide 139 H (0-100) pg/ml CBC 12/31/21 01/01/22 Range/Units 19:25 06:14 WBC 13.12 H 11.53 H (4.8-10.8) K/ul RBC 3.28 L 3.47 L (4.63-6.08) M/uL Hgb 9.3 L 9.8 L (14.0-18.0) g/dl Hct 29.0 L 29.8 L (40.1-51.0) % Plt Count 225 238 (130-400) K/uL Neut # (Auto) 5.59 4.44 (1.4-6.5) K/uL Lymph # (Auto) 2.32 2.08 (1.2-3.4) K/uL [place] # (Auto) 1.46 H 1.37 H (0.24-0.82) K/uL Eos # (Auto) 3.63 H 3.48 H (0-0.50) K/uL Baso # (Auto) 0.05 0.08 (0-0.2) K/uL Comprehensive Metabolic Panel 12/31/21 01/01/22 Range/Units 19:25 06:14 Sodium 130 L 135 L (136-145) mmol/L Potassium 4.9 4.1 (3.5-5.1) mmol/L Chloride 101 103 (98-107) mmol/L Carbon Dioxide 22 24 (21-32) mmol/L BUN 24 H 23 (6-23) mg/dl Creatinine 1.28 1.17 (0.6-1.4) mg/dl Glucose 315 H* 133 H (70-99(Fasting)) mg/dl Calcium 8.8 8.9 (8.5-10.1) mg/dl AST 15 (13-39) U/L ALT 13 (7-52) U/L Alkaline Phosphatase 121 H (34-104) U/L Total Protein 7.8 (6.0-8.3) gm/dl Albumin 3.3 L (3.4-5.0) gm/dl Intake and Output 12/31/21 01/01/22 01/01/22 22:59 06:59 14:59 Intake Total 100 / 100 Output Total 2800 / 2800 Balance -2700 / -2700 Intake: IV 100 / 100 Magnesium Sulfate / D5w 1 gm In 100 / 100 100 ml @ 50 mls/hr IV ONE ONE Rx#:[id number] Output: Urine Amount (Catheter) 2800 / 2800 Cherry/Indwelling 2800 / 2800 Other: Weight 105.69 kg 105.69 kg 105.6 kg Weight Measurement Method Built in [facility] Built in [facility] Built in [facility] Patient Weight 01/02/22 06:59 Weight 105.6 kg Diagnostic Findings Last available pacemaker interrogation is from March 11, 2021. Remaining longevity: 2.5 years. Mode: VVIR with lower rate set at 60, upper sensor rate set at 130 bpm. Time in AT/AF 29.9%. Ventricular paced 71.9%. Average ventricular rates are controlled both during the day and night. October 05, 2021 TTE interpretation summary (CHRISTIN SHIRLEY, Dr. Godwin): Mildly dilated LV. Mild concentric LVH. Borderline reduced LV systolic function. Ejection fraction 50- 55% normal RV function. Normal left atrial size. Moderate right atrial dilatation. Moderate to severe aortic stenosis. Moderate to severe MR and TR.
--- NOTE | 2022-01-01 17:22 | Hospitalist Progress Note ---
Date of Service January 01, 2022 Assessment & Plan (1) Decompensated heart failure: Plan: hx chronic diastolic heart failure (EF 55%, TTE 2021) valvular heart disease (moderate to severe , MR, TR on TTE 09/2021) Complicated UTI hx recurrent UTIs on chronic methenamine suppression Rx urinary retention status post chronic indwelling Camejo catheter hx CAD status post CABG/stenting PAF/SSS sp PPM on Coumadin, INR slightly supratherapeutic hypertension, stable hyperlipidemia, on statin Rx DM2, insulin requiring, suboptimal control as of recent hemoglobin A1c of 11.3 last November 2021 pancreatic tumor (high-grade dysplasia on pathology ) status post surgery Chronic anemia, hemoglobin at baseline hx ICH History dementia, mentation at baseline past tobacco abuse PCU Diuretic rx-two doses given, currently on hold and will reassess need in am. Strict I/Os, daily weights, CHF education, fluid restriction Cardiology following. Urine CS, Cefepime Urology consult as per patient daughter request Re: Urinary retention, camejo exhanged on 12/31, keep in place until he can be seen as outpatient. Basal insulin, ISS BG goal 1 10-1 40, carb count coverage DVT prophylaxis. Coumadin INR between 2 and 3 DNR Rosamaria Kramer DO [facility] Hospitalist Admission and Anticipated Discharge Date Admission Date: December 31, 2021 Subjective 86-year-old man presented with urinary issues per daughter. Patient has a chronic Camejo in place. He has no specific complaints today and denies any pain from his Camejo catheter. Urology saw the patient today and recommended to continue Camejo catheter which was exchanged yesterday in the ER. Urine culture is pending and he is on IV cefepime. Patient has no specific symptoms or complaints today. Review of Systems Review of Systems: All systems reviewed negative except as indicated above and patient denies any shortness of breath or chest pain or other issues. Physical Exam Physical Exam: CONSTITUTIONAL: WNWD, vitals as above, generally well- appearing, NAD EYES: normal conjunctivae, no scleral icterus ENT: external ear and nose normal, MMM NECK: trachea midline RESPIRATORY: rales on right base and crackles on left base, good air movement and normal respiratory effort , no wheezing. CARDIOVASCULAR: regular rate and rhythm, 3/6 MISSAEL, no gallops or rubs, no JVD, no peripheral edema, CHEST: inspection of chest was normal (+pacemaker, +port) GASTROINTESTINAL: soft, nontender, no guarding MUSCULOSKELETAL: strength 5/5 throughout, head is normocephalic and atraumatic SKIN: warm and dry NEUROLOGIC: CN 2-12 grossly intact, no sensory deficit, normal cognition, normal speech, no tremor PSYCHIATRIC: alert cooperative and oriented to person, place and time. Results & Data Results & Data ([facility]) Vital Signs (Past 12 Hours) Vital Signs Pulse Resp BP Pulse Ox Pulse Ox O2 Del Method O2 Del Method 01/01/22 16:35 62 18 117/59 L 93 Room Air 01/01/22 16:35 93 Room Air 01/01/22 11:38 63 20 116/55 L 93 Room Air 01/01/22 08:02 94 Room Air 01/01/22 08:02 60 18 140/74 94 Room Air Laboratory Results Short CBC 12/31/21 01/01/22 Range/Units 19:25 06:14 WBC 13.12 H 11.53 H (4.8-10.8) K/ul Hgb 9.3 L 9.8 L (14.0-18.0) g/dl Hct 29.0 L 29.8 L (40.1-51.0) % Plt Count 225 238 (130-400) K/uL BMP 12/31/21 01/01/22 19:25 06:14 Sodium 130 L 135 L Potassium 4.9 4.1 Chloride 101 103 Carbon Dioxide 22 24 BUN 24 H 23 Creatinine 1.28 1.17 Glucose 315 H* 133 H Calcium 8.8 8.9 Liver Function 12/31/21 Range/Units 19:25 Total Bilirubin 0.6 (0.2-1.0) mg/dl AST 15 (13-39) U/L ALT 13 (7-52) U/L Alkaline Phosphatase 121 H (34-104) U/L Albumin 3.3 L (3.4-5.0) gm/dl Urine 12/31/21 Range/Units 20:24 Urine Color Yellow Urine Appearance Clear (Clear) Urine pH 5.0 (4.5-7.5) Ur Specific [place] 1.012 (1.000-1.030) Urine Protein Negative (Negative) Urine Glucose (UA) 1+ H (Negative) Medications Administered Current Inpatient Medications Acetaminophen (Acetaminophen 325 Mg Tab) 650 mg PO Q4H PRN PRN Reason: Pain or Fever Stop: 01/31/22 02:03 Amlodipine Besylate (Amlodipine Besylate 5 Mg Tab) 2.5 mg PO DAILY [facility] Stop: 02/01/22 08:59 Aspirin (Aspirin 81 Mg Ectab) 81 mg PO QAM [facility] Stop: 01/31/22 08:59 Last Admin: 01/01/22 08:00 Dose: 81 mg Atorvastatin Calcium (Atorvastatin 40 Mg Tab) 40 mg PO HS [facility] Stop: 01/31/22 20:59 Dextrose (Dextrose 50% 50 Ml Syringe) 25 - 50 ml IV UD PRN; Protocol PRN Reason: Hypoglycemia Protocol Stop: 01/31/22 02:03 Glucagon (Glucagon For Inj 1 Mg Vial) 1 mg SQ UD PRN; Protocol PRN Reason: Hypoglycemia Protocol Stop: 01/31/22 02:03 Glucose (Glucose 40% Gel 15 Gm Tube) 15 - 30 gm PO UD PRN; Protocol PRN Reason: Hypoglycemia Protocol Stop: 01/31/22 02:03 Glucose (Glucose 10 Tab/Tube) 4 - 8 tab PO UD PRN; Protocol PRN Reason: Hypoglycemia Treatment Stop: 01/31/22 02:03 Promethazine HCl 12.5 mg/ (Sodium Chloride) 50.5 mls @ 202 mls/hr IV Q6H PRN PRN Reason: Nausea And Vomiting Stop: 01/31/22 02:03 Cefepime HCl 1,000 mg/ Syringe 11.3 mls @ 5.5 mls/min IV Q12H CLARISSA; Protocol Stop: 01/11/22 07:59 Last Admin: 01/01/22 08:00 Dose: 5.5 mls/min Insulin Aspart (Insulin Aspart Per Unit) 0 units SC [facility] Stop: 01/31/22 02:03 Last Admin: 01/01/22 13:20 Dose: 5 units Insulin Glargine (Lantus Per Unit Charge) [facility] Stop: 01/31/22 08:59 Last Admin: 01/01/22 09:12 Dose: 25 units Isosorbide Mononitrate (Isosorbide [place] Extended Rel 60 Mg Tabcr) 60 [facility] Stop: 01/31/22 08:59 Last Admin: 01/01/22 08:00 Dose: 60 mg Losartan Potassium (Losartan Potassium 50 Mg Tab) 50 mg PO QAM [facility] Stop: 01/31/22 08:59 Last Admin: 01/01/22 08:00 Dose: 50 mg Metoprolol Succinate (Metoprolol Succ 50mg Ext Rel Tab) 50 mg PO QAM [facility] Stop: 02/01/22 08:59 Miscellaneous (Carbohydrates For Hypoglycemia ) 15 - 30 gm PO UD PRN PRN Reason: Hypoglycemia Protocol Stop: 01/31/22 02:03 Pantoprazole Sodium (Pantoprazole 40 Mg Tab) 40 mg PO HS [facility] Stop: 01/31/22 20:59 Sennosides (Senna 8.6 Mg Tab) 8.6 - 17.2 mg PO HS PRN PRN Reason: Constipation Stop: 01/31/22 02:03 Tamsulosin HCl (Tamsulosin Hcl 0.4 Mg Cap) 0.4 mg PO HS [facility] Stop: 01/31/22 20:59 Tramadol HCl (Tramadol Hcl 50 Mg Tablet) 25 - 50 mg PO Q4H PRN PRN Reason: Pain Stop: 01/31/22 02:03
[2022-01-01] MEDS: ATORVASTATIN 40 MG TAB PO SCH (20:31)
[2022-01-01] MEDS: PANTOprazole 40 MG TAB PO SCH (20:32)
[2022-01-01] MEDS: TAMSULOSIN HCL 0.4 MG CAP PO SCH (20:32)
[2022-01-02] MEDS ORDERED: MELATONIN 3 MG TAB PO PRN (01:40)
[2022-01-02 07:55] LABS: Hematocrit (blood only) 30.1 % (40.1-51.0); Hemoglobin 9.7 g/dl (14.0-18.0); Mean Corpuscular Hemoglobin 28.2 pg (25.0-34.0); Mean Corpuscular Hgb Conc 32.2 g/dL (32.0-36.0); Mean Corpuscular Volume 87.5 fL (80.0-100.0); Mean Platelet Volume 10.2 fL (9.4-12.4); Platelet Count 258 K/uL (130-400); RDW Coefficient of Variation 15.7 % (11.5-14.5); Red Blood Count 3.44 M/uL (4.63-6.08); White Blood Count 13.39 K/ul (4.8-10.8)
[2022-01-02 08:08] LABS: INR 2.6 (0.9-1.1); Prothrombin Time 25.9 Seconds (9.0-12.0)
[2022-01-02] MEDS: LANTUS PER UNIT CHARGE SQ SCH (08:10)
[2022-01-02] MEDS: METOPROLOL SUCC 50MG EXT REL TAB PO SCH (08:11)
[2022-01-02] MEDS: LOSARTAN POTASSIUM 50 MG TAB PO SCH (08:11)
[2022-01-02] MEDS: INSULIN ASPART PER UNIT SC SCH ×4 (08:11→20:46)
[2022-01-02] MEDS: ASPIRIN 81 MG ECTAB PO SCH (08:12)
[2022-01-02] MEDS: ISOSORBIDE MONO EXTENDED REL 60 MG TABCR PO SCH (08:12)
[2022-01-02] MEDS: CEFEPIME 1,000 MG in SYRINGE 0 ML IV SCH (08:18)
[2022-01-02 08:22] LABS: BUN Creatinine Ratio 21.4 (10-20); Calcium 8.6 mg/dl (8.5-10.1); Creatinine Clr Calc Pharmacy 53.7 ml/min; Est GFR (African American) 59.5 ml/min; Est GFR (Non-African American) 51.3 ml/min
[2022-01-02] MEDS ORDERED: FUROSEMIDE 40 MG/4 ML VIAL IV SCH (09:00)
[2022-01-02] MEDS: FINASTERIDE 5 MG TAB PO SCH (10:17)
[2022-01-02] MEDS: amLODIPine BESYLATE 5 MG TAB PO SCH (10:18)
--- NOTE | 2022-01-02 10:46 | Cardiology Progress Note ---
Date of Service January 02, 2022 Assessment & Plan (1) Chronic indwelling Cherry catheter: (2) Decompensated heart failure: (3) PAF (paroxysmal atrial fibrillation): (4) S/P CABG x 2: Plan 86-year-old male admitted with obstructed Cherry catheter. Clinically improving with 2 doses of intravenous furosemide. He received an additional dose this AM. Edema improving. Consider transition to oral diuretic therapy in the next 24-48 hours. Monitor daily weight, fluid balance, electrolytes, and GFR. Dose of Coumadin for goal INR of 2.0-3.0. Admission and Anticipated Discharge Date Admission Date: December 31, 2021 Subjective Patient seen examined the bedside. Fluid balance -2.7 L. Serum creatinine remains at baseline. Received additional 40 mg of intravenous furosemide this morning. Patient denies chest pain or shortness of breath at rest. Telemetry reveals a ventricular paced rhythm. INR therapeutic. Review of Systems Review of Systems: All systems reviewed & are unremarkable except as noted in Subjective Physical Exam Constitutional: well nourished; no acute distress Respiratory: no respiratory distress, no labored breathing and no retractions Auscultation: + diminished lung sounds (Bases bilateral); no rales, no rhonchi and no wheezes Cardiovascular: Rate/Rhythm: regular rate and regular rhythm Heart Sounds: normal S1, normal S2 and + murmur (2/6 systolic ejection murmur heard best at the base.) Vessels: no JVD and no carotid bruit Extremities: + edema (Mild bilateral pedal and ankle edema.) Gastrointestinal (Abdomen): Inspection/Auscultation: normal bowel sounds; abdomen not distended Percussion/Palpation: abdomen soft; abdomen nontender, no guarding and abdomen not rigid Neurologic: CN's II-XI intact bilaterally and moves all extremities; no focal motor deficits Results & Data ([facility]) Vital Signs (Past 12 Hours) Vital Signs Temp Pulse Resp BP Pulse Ox O2 Del Method O2 Del Method 01/02/22 08:00 Room Air 01/02/22 07:09 36.8 C 60 20 134/68 91 Room Air 01/02/22 02:04 Room Air 01/02/22 02:38 36.7 C 67 18 138/68 95 Room Air 01/02/22 00:00 Room Air 01/01/22 23:19 36.8 C 61 18 142/69 H 93 Room Air
[2022-01-02] MEDS ORDERED: LIDOCAINE 2% JELLY 5 ML TUBE EXT SCH (15:00)
--- NOTE | 2022-01-02 16:42 | Hospitalist Progress Note ---
Date of Service January 02, 2022 Assessment & Plan (1) Decompensated heart failure: (2) Penile erosion: (3) ASCVD (arteriosclerotic cardiovascular disease): (4) PAF (paroxysmal atrial fibrillation): (5) Chronic indwelling Camejo catheter: (6) Dementia: Plan: hx chronic diastolic heart failure (EF 55%, TTE 2021) valvular heart disease (moderate to severe , MR, TR on TTE 09/2021) penile erosion-some increased pain today-trial lidocaine jelly Complicated UTI-ruled out, stopped abx hx recurrent UTIs on chronic methenamine suppression Rx urinary retention status post chronic indwelling Camejo catheter, exchanged on 12/31/21 BPH-finasteride given in place of dutasteride hx CAD status post CABG/stenting 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 Urology consult as per patient daughter request Re: Urinary retention, camejo exchanged on 12/31, keep in place until he can be seen as outpatient. Lidocaine jelly to erosion UTI ruled out-->abx stopped. Basal insulin, ISS BG goal 110-140, carb count coverage DVT prophylaxis. Coumadin INR between 2 and 3 DNR Rosamaria Kramer DO [facility] Hospitalist Admission and Anticipated Discharge Date Admission Date: December 31, 2021 Subjective 86-year-old man presented with urinary issues per daughter. Patient has a chronic Camejo in place. Today he is accompanied by his girlfriend who is at the bedside. At first questioning he declines any issues with his catheter site, however, girlfriend then says later that he has been having pain in this area. On exam there is a penile erosion consistent with what urology saw. We discussed a trial of lidocaine jelly. Patient is on board with this. He denies any shortness of breath, chest pain or other issues. He denies any swelling in his legs. I did discuss the situation with his daughter this morning by phone who said his legs were a little swollen this morning. Case discussed with primary RN. He did receive an additional dose of IV Lasix morning. Review of Systems Review of Systems: All systems reviewed negative except as indicated above . Physical Exam Physical Exam: CONSTITUTIONAL: WNWD, vitals as above, generally well- appearing, NAD EYES: normal conjunctivae, no scleral icterus ENT: external ear and nose normal, MMM NECK: trachea midline RESPIRATORY: rales on right base and crackles on left base, good air movement and normal respiratory effort , no wheezing. CARDIOVASCULAR: regular rate and rhythm, 3/6 MISSAEL, no gallops or rubs, no JVD, no peripheral edema, CHEST: inspection of chest was normal (+pacemaker, +port) GASTROINTESTINAL: soft, nontender, no guarding MUSCULOSKELETAL: strength 5/5 throughout, head is normocephalic and atraumatic SKIN: warm and dry NEUROLOGIC: CN 2-12 grossly intact, no sensory deficit, normal cognition, normal speech, no tremor PSYCHIATRIC: alert cooperative and oriented to person, place and time. Results & Data Results & Data ([facility]) Vital Signs (Past 12 Hours) Vital Signs Temp Pulse Resp BP Pulse Ox O2 Del Method 01/02/22 15:03 36.6 C 59 L 19 122/67 93 Room Air 01/02/22 11:04 36.3 C L 60 19 114/64 94 Room Air 01/02/22 08:00 Room Air 01/02/22 07:09 36.8 C 60 20 134/68 91 Room Air Laboratory Results Short CBC 01/02/22 Range/Units 06:59 WBC 13.39 H (4.8-10.8) K/ul Hgb 9.7 L (14.0-18.0) g/dl Hct 30.1 L (40.1-51.0) % Plt Count 258 (130-400) K/uL BMP 01/02/22 06:59 Sodium 135 L Potassium 4.0 Chloride 101 Carbon Dioxide 26 BUN 27 H Creatinine 1.26 Glucose 124 H Calcium 8.6 Medications Administered Current Inpatient Medications Acetaminophen (Acetaminophen 325 Mg Tab) 650 mg PO Q4H PRN PRN Reason: Pain or Fever Stop: 01/31/22 02:03 Amlodipine Besylate (Amlodipine Besylate 5 Mg Tab) 2.5 mg PO DAILY [facility] Stop: 02/01/22 08:59 Last Admin: 01/02/22 10:18 Dose: 2.5 mg Aspirin (Aspirin 81 Mg Ectab) [facility] Stop: 01/31/22 08:59 Last Admin: 01/02/22 08:12 Dose: 81 mg Atorvastatin Calcium (Atorvastatin 40 Mg Tab) 40 mg PO HS [facility] Stop: 01/31/22 20:59 Last Admin: 01/01/22 20:31 Dose: 40 mg Dextrose (Dextrose 50% 50 Ml Syringe) 25 - 50 ml IV UD PRN; Protocol PRN Reason: Hypoglycemia Protocol Stop: 01/31/22 02:03 Finasteride (Finasteride 5 Mg Tab) 5 mg PO [facility] Stop: 02/01/22 08:59 Last Admin: 01/02/22 10:17 Dose: 5 mg Furosemide (Furosemide 40 Mg Tab) 40 mg PO [facility] Stop: 02/02/22 08:59 Glucagon (Glucagon For Inj 1 Mg Vial) 1 mg SQ UD PRN; Protocol PRN Reason: Hypoglycemia Protocol Stop: 01/31/22 02:03 Glucose (Glucose 40% Gel 15 Gm Tube) 15 - 30 gm PO UD PRN; Protocol PRN Reason: Hypoglycemia Protocol Stop: 01/31/22 02:03 Glucose (Glucose 10 Tab/Tube) 4 - 8 tab PO UD PRN; Protocol PRN Reason: Hypoglycemia Treatment Stop: 01/31/22 02:03 Promethazine HCl 12.5 mg/ (Sodium Chloride) 50.5 mls @ 202 mls/hr IV Q6H PRN PRN Reason: Nausea And Vomiting Stop: 01/31/22 02:03 Insulin Aspart (Insulin Aspart Per Unit) [address] [facility] Stop: 01/31/22 02:03 Last Admin: 01/02/22 12:13 Dose: 5 units Insulin Glargine (Lantus Per Unit Charge) 25 units SQ [facility] Stop: 01/31/22 08:59 Last Admin: 01/02/22 08:10 Dose: 25 units Isosorbide Mononitrate (Isosorbide [place] Extended Rel 60 Mg Tabcr) 60 mg PO [facility] Stop: 01/31/22 08:59 Last Admin: 01/02/22 08:12 Dose: 60 mg Lidocaine HCl (Lidocaine 2% Jelly 5 Ml Tube) 10 ml EXT Q6H [facility] Stop: 01/04/22 14:59 Losartan Potassium (Losartan Potassium 50 Mg Tab) 50 mg PO QAM [facility] Stop: 01/31/22 08:59 Last Admin: 01/02/22 08:11 Dose: 50 mg Melatonin (Melatonin 3 Mg Tab) 3 mg PO HS PRN PRN Reason: Sleep Stop: 02/01/22 01:39 Last Admin: 01/02/22 01:57 Dose: 3 mg Metoprolol Succinate (Metoprolol Succ 50mg Ext Rel Tab) 50 mg PO QAM [facility] Stop: 02/01/22 08:59 Last Admin: 01/02/22 08:11 Dose: 50 mg Miscellaneous (Carbohydrates For Hypoglycemia ) 15 - 30 gm PO UD PRN PRN Reason: Hypoglycemia Protocol Stop: 01/31/22 02:03 Pantoprazole Sodium (Pantoprazole 40 Mg Tab) 40 mg PO HS [facility] Stop: 01/31/22 20:59 Last Admin: 01/01/22 20:32 Dose: 40 mg Sennosides (Senna 8.6 Mg Tab) 8.6 - 17.2 mg PO HS PRN PRN Reason: Constipation Stop: 01/31/22 02:03 Tamsulosin HCl (Tamsulosin Hcl 0.4 Mg Cap) 0.4 mg PO HS [facility] Stop: 01/31/22 20:59 Last Admin: 01/01/22 20:32 Dose: 0.4 mg Tramadol HCl (Tramadol Hcl 50 Mg Tablet) 25 - 50 mg PO Q4H PRN PRN Reason: Pain Stop: 01/31/22 02:03 Warfarin Sodium (Warfarin Sod 2.5 Mg Tab) 2.5 mg PO DAILY@1600 [facility] Stop: 02/01/22 15:59 (1) Dementia Dementia behavioral disturbance: without behavioral disturbance Dementia type: unspecified type Qualified Code(s): F03.90 - Unspecified dementia without behavioral disturbance
[2022-01-02] MEDS: WARFARIN SOD 2.5 MG TAB PO SCH (17:29)
[2022-01-02] MEDS: PANTOprazole 40 MG TAB PO SCH (20:45)
[2022-01-02] MEDS: TAMSULOSIN HCL 0.4 MG CAP PO SCH (20:45)
[2022-01-02] MEDS: ATORVASTATIN 40 MG TAB PO SCH (20:45)
[2022-01-02] MEDS: LIDOCAINE 2% JELLY 5 ML TUBE EXT SCH (20:46)
[2022-01-03] MEDS: LIDOCAINE 2% JELLY 5 ML TUBE EXT SCH ×4 (03:01→20:13)
[2022-01-03 08:10] LABS: Calcium 8.6 mg/dl (8.5-10.1); Creatinine Clr Calc Pharmacy 49.9 ml/min; Est GFR (African American) 63.1 ml/min; Est GFR (Non-African American) 54.4 ml/min; Potassium 3.6 mmol/L (3.5-5.1)
[2022-01-03] MEDS: INSULIN ASPART PER UNIT SC SCH ×4 (08:31→21:00)
[2022-01-03] MEDS: amLODIPine BESYLATE 5 MG TAB PO SCH (08:55)
[2022-01-03] MEDS: FUROSEMIDE 40 MG TAB PO SCH (08:55)
[2022-01-03] MEDS: ASPIRIN 81 MG ECTAB PO SCH (08:55)
[2022-01-03] MEDS: FINASTERIDE 5 MG TAB PO SCH (08:55)
[2022-01-03] MEDS: METOPROLOL SUCC 50MG EXT REL TAB PO SCH (08:56)
[2022-01-03] MEDS: LOSARTAN POTASSIUM 50 MG TAB PO SCH (08:56)
[2022-01-03] MEDS: ISOSORBIDE MONO EXTENDED REL 60 MG TABCR PO SCH (08:56)
[2022-01-03] MEDS: LANTUS PER UNIT CHARGE SQ SCH (09:27)
--- NOTE | 2022-01-03 10:54 | Cardiology Progress Note ---
Date of Service January 03, 2022 Assessment & Plan (1) Chronic indwelling Cherry catheter: (2) Decompensated heart failure: (3) PAF (paroxysmal atrial fibrillation): (4) S/P CABG x 2: Plan 86-year-old male admitted with obstructed Cherry catheter. Clinically improved with IV diuretic therapy. Transition to oral diuretic therapy (outpatient dose 40 mg furosemide) in AM 01/04/22. Monitor daily weight, fluid balance, electrolytes, and GFR. Dose of Coumadin for goal INR of 2.0-3.0. No further inpatient cardiology testing or intervention. Cardiology will sign off. Please call with any further concerns/questions. Admission and Anticipated Discharge Date Admission Date: December 31, 2021 Subjective Patient seen and examined at the bedside. Hard of hearing. Denies chest pain or shortness of breath. Telemetry reveals ventricular paced rhythm at 60 bpm. Edema resolved. Fluid balance -1500 cc. Serum creatinine remains stable. Review of Systems Review of Systems: All systems reviewed & are unremarkable except as noted in Subjective Physical Exam Constitutional: well nourished; no acute distress Respiratory: no respiratory distress, no labored breathing and no retractions Auscultation: + diminished lung sounds (Bases bilateral); no rales, no rhonchi and no wheezes Cardiovascular: Rate/Rhythm: regular rate and regular rhythm Heart Sounds: normal S1, normal S2 and + murmur (2/6 systolic ejection murmur heard best at the base.) Vessels: no JVD and no carotid bruit Extremities: + edema (Mild bilateral pedal and ankle edema.) Gastrointestinal (Abdomen): Inspection/Auscultation: normal bowel sounds; abdomen not distended Percussion/Palpation: abdomen soft; abdomen nontender, no guarding and abdomen not rigid Neurologic: CN's II-XI intact bilaterally and moves all extremities; no focal motor deficits Results & Data ([facility]) Vital Signs (Past 12 Hours) Vital Signs Temp Pulse Pulse Resp BP Pulse Ox Pulse Ox 01/03/22 07:00 60 01/03/22 07:15 37.1 C 60 19 144/73 H 91 01/03/22 02:56 90 01/03/22 02:52 37 C 60 16 128/63 90 01/02/22 23:13 37.5 C 60 18 137/70 94 O2 Del Method O2 Del Method 01/03/22 07:00 01/03/22 07:15 Room Air 01/03/22 02:56 Room Air 01/03/22 02:52 Room Air 01/02/22 23:13 Room Air
--- NOTE | 2022-01-03 14:15 | Hospitalist Progress Note ---
Date of Service January 03, 2022 Assessment & Plan (1) Decompensated heart failure: (2) Penile erosion: (3) ASCVD (arteriosclerotic cardiovascular disease): (4) PAF (paroxysmal atrial fibrillation): (5) Chronic indwelling Camejo catheter: (6) Dementia: Plan: acute on chronic heart failure-improved after intravenous diuretic therapy. transitioned back to oral diuretic therapy hx chronic diastolic heart failure (EF 55%, TTE 2021) valvular heart disease (moderate to severe , MR, TR on TTE 09/2021) penile erosion-some increased pain today-trial lidocaine jelly was successful and will continue now. 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 Strict I/Os, daily weights, CHF education, fluid restriction Cardiology following. Urology consult as per patient daughter request Re: Urinary retention, camejo exchanged on 12/31, keep in place until he can be seen as outpatient. Lidocaine jelly to erosion UTI ruled out-->abx stopped. Basal insulin, ISS BG goal 110-140, carb count coverage DVT prophylaxis. Coumadin INR between 2 and 3 DNR Rosamaria Kramer DO [facility] Hospitalist Admission and Anticipated Discharge Date Admission Date: December 31, 2021 Subjective 86-year-old man presented with urinary issues per daughter. Patient has a chronic Camejo in place. Denies SOB or chest pain Denies much irritation in his catheter insertion site but would like to continue with the lidocaine jelly applications which have been helpful. Review of Systems Review of Systems: All systems reviewed negative except as indicated above . Physical Exam Physical Exam: CONSTITUTIONAL: WNWD, vitals as above, generally well- appearing, NAD EYES: normal conjunctivae, no scleral icterus ENT: external ear and nose normal, MMM NECK: trachea midline RESPIRATORY: rales on right base and crackles on left base, good air movement and normal respiratory effort , no wheezing. CARDIOVASCULAR: regular rate and rhythm, 3/6 MISSAEL, no gallops or rubs, no JVD, no peripheral edema, CHEST: inspection of chest was normal (+pacemaker, +port) GASTROINTESTINAL: soft, nontender, no guarding MUSCULOSKELETAL: strength 5/5 throughout, head is normocephalic and atraumatic SKIN: warm and dry NEUROLOGIC: CN 2-12 grossly intact, no sensory deficit, normal cognition, normal speech, no tremor PSYCHIATRIC: alert cooperative and oriented to person, place and time. Results & Data Results & Data ([facility]) Vital Signs (Past 12 Hours) Vital Signs Temp Pulse Pulse Resp BP Pulse Ox Pulse Ox 01/03/22 08:46 01/03/22 11:09 36.7 C 60 19 116/63 94 01/03/22 07:00 60 01/03/22 07:15 37.1 C 60 19 144/73 H 91 01/03/22 02:56 90 01/03/22 02:52 37 C 60 16 128/63 90 O2 Del Method O2 Del Method 01/03/22 08:46 Room Air 01/03/22 11:09 Room Air 01/03/22 07:00 01/03/22 07:15 Room Air 01/03/22 02:56 Room Air 01/03/22 02:52 Room Air Laboratory Results BMP 01/03/22 06:43 Sodium 133 L Potassium 3.6 Chloride 99 Carbon Dioxide 25 BUN 30 H Creatinine 1.20 Glucose 86 Calcium 8.6 Medications Administered Current Inpatient Medications Acetaminophen (Acetaminophen 325 Mg Tab) 650 mg PO Q4H PRN PRN Reason: Pain or Fever Stop: 01/31/22 02:03 Amlodipine Besylate (Amlodipine Besylate 5 Mg Tab) 2.5 mg PO DAILY [facility] Stop: 02/01/22 08:59 Last Admin: 01/03/22 08:55 Dose: 2.5 mg Aspirin (Aspirin 81 Mg Ectab) 81 mg PO QAM [facility] Stop: 01/31/22 08:59 Last Admin: 01/03/22 08:55 Dose: 81 mg Atorvastatin Calcium (Atorvastatin 40 Mg Tab) 40 mg PO HS [facility] Stop: 01/31/22 20:59 Last Admin: 01/02/22 20:45 Dose: 40 mg Dextrose (Dextrose 50% 50 Ml Syringe) 25 - 50 ml IV UD PRN; Protocol PRN Reason: Hypoglycemia Protocol Stop: 01/31/22 02:03 Finasteride (Finasteride 5 Mg Tab) 5 mg PO QAM [facility] Stop: 02/01/22 08:59 Last Admin: 01/03/22 08:55 Dose: 5 mg Furosemide (Furosemide 40 Mg Tab) 40 mg PO QAM [facility] Stop: 02/02/22 08:59 Last Admin: 01/03/22 08:55 Dose: 40 mg Glucagon (Glucagon For Inj 1 Mg Vial) 1 mg SQ UD PRN; Protocol PRN Reason: Hypoglycemia Protocol Stop: 01/31/22 02:03 Glucose (Glucose 40% Gel 15 Gm Tube) 15 - 30 gm PO UD PRN; Protocol PRN Reason: Hypoglycemia Protocol Stop: 01/31/22 02:03 Glucose (Glucose 10 Tab/Tube) 4 - 8 tab PO UD PRN; Protocol PRN Reason: Hypoglycemia Treatment Stop: 01/31/22 02:03 Promethazine HCl 12.5 mg/ (Sodium Chloride) 50.5 mls @ 202 mls/hr IV Q6H PRN PRN Reason: Nausea And Vomiting Stop: 01/31/22 02:03 Insulin Aspart (Insulin Aspart Per Unit) 0 units SC [facility] Stop: 01/31/22 02:03 Last Admin: 01/03/22 12:14 Dose: 5 units Insulin Glargine (Lantus Per Unit Charge) [facility] Stop: 01/31/22 08:59 Last Admin: 01/03/22 09:27 Dose: 25 units Isosorbide Mononitrate (Isosorbide [place] Extended Rel 60 Mg Tabcr) 60 mg PO [facility] Stop: 01/31/22 08:59 Last Admin: 01/03/22 08:56 Dose: 60 mg Lidocaine HCl (Lidocaine 2% Jelly 5 Ml Tube) 5 ml EXT Q6H [facility] Stop: 02/01/22 20:59 Last Admin: 01/03/22 09:03 Dose: 5 ml Losartan Potassium (Losartan Potassium 50 Mg Tab) [facility] Stop: 01/31/22 08:59 Last Admin: 01/03/22 08:56 Dose: 50 mg Melatonin (Melatonin 3 Mg Tab) 3 mg PO HS PRN PRN Reason: Sleep Stop: 02/01/22 01:39 Last Admin: 01/02/22 01:57 Dose: 3 mg Metoprolol Succinate (Metoprolol Succ 50mg Ext Rel Tab) 50 mg PO QAM [facility] Stop: 02/01/22 08:59 Last Admin: 01/03/22 08:56 Dose: 50 mg Miscellaneous (Carbohydrates For Hypoglycemia ) 15 - 30 gm PO UD PRN PRN Reason: Hypoglycemia Protocol Stop: 01/31/22 02:03 Pantoprazole Sodium (Pantoprazole 40 Mg Tab) 40 mg PO HS [facility] Stop: 01/31/22 20:59 Last Admin: 01/02/22 20:45 Dose: 40 mg Sennosides (Senna 8.6 Mg Tab) 8.6 - 17.2 mg PO HS PRN PRN Reason: Constipation Stop: 01/31/22 02:03 Tamsulosin HCl (Tamsulosin Hcl 0.4 Mg Cap) 0.4 mg PO HS [facility] Stop: 01/31/22 20:59 Last Admin: 01/02/22 20:45 Dose: 0.4 mg Tramadol HCl (Tramadol Hcl 50 Mg Tablet) 25 - 50 mg PO Q4H PRN PRN Reason: Pain Stop: 01/31/22 02:03 Warfarin Sodium (Warfarin Sod 2.5 Mg Tab) 2.5 mg PO DAILY@1600 [facility] Stop: 02/01/22 15:59 Last Admin: 01/02/22 17:29 Dose: 2.5 mg (1) Dementia Dementia behavioral disturbance: without behavioral disturbance Dementia type: unspecified type Qualified Code(s): F03.90 - Unspecified dementia without behavioral disturbance
[2022-01-03] MEDS: WARFARIN SOD 2.5 MG TAB PO SCH (16:52)
[2022-01-03] MEDS: TAMSULOSIN HCL 0.4 MG CAP PO SCH (20:13)
[2022-01-03] MEDS: PANTOprazole 40 MG TAB PO SCH (20:13)
[2022-01-03] MEDS: ATORVASTATIN 40 MG TAB PO SCH (20:13)
[2022-01-04] MEDS: LIDOCAINE 2% JELLY 5 ML TUBE EXT SCH ×2 (04:18→08:25)
[2022-01-04 07:17] LABS: BUN Creatinine Ratio 28.3 (10-20); Calcium 8.5 mg/dl (8.5-10.1); Creatinine Clr Calc Pharmacy 57.4 ml/min; Est GFR (African American) 67.8 ml/min; Est GFR (Non-African American) 58.5 ml/min; Potassium 3.5 mmol/L (3.5-5.1)
[2022-01-04 07:47] LABS: INR 1.9 (0.9-1.1); Prothrombin Time 19.1 Seconds (9.0-12.0)
[2022-01-04] MEDS: INSULIN ASPART PER UNIT SC SCH ×2 (08:09→12:01)
[2022-01-04] MEDS: LANTUS PER UNIT CHARGE SQ SCH (08:09)
[2022-01-04] MEDS: ASPIRIN 81 MG ECTAB PO SCH (08:26)
[2022-01-04] MEDS: LOSARTAN POTASSIUM 50 MG TAB PO SCH (08:26)
[2022-01-04] MEDS: amLODIPine BESYLATE 5 MG TAB PO SCH (08:26)
[2022-01-04] MEDS: ISOSORBIDE MONO EXTENDED REL 60 MG TABCR PO SCH (08:27)
[2022-01-04] MEDS: METOPROLOL SUCC 50MG EXT REL TAB PO SCH (08:27)
[2022-01-04] MEDS: FUROSEMIDE 40 MG TAB PO SCH (08:27)
[2022-01-04] MEDS: FINASTERIDE 5 MG TAB PO SCH (08:27)
--- NOTE | 2022-01-04 13:44 | Discharge Summary ---
Date of Service January 04, 2022 Admission HPI Per Admitting Provider History obtained from patient, patient's daughter, and records. History somewhat limited from patient secondary to dementia. 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 Last confinement November 2021 for hyperglycemia and Pseudomonas UTI. Patient discharged on Ciprofloxacin course to [facility] Patient with persistent genitourinary discomfort from Camejo catheter for some time now as per daughter. Worsening discomfort 2 days ago. Possible penile bleed. Patient brought to the ER for evaluation Ciprofloxacin prescribed for possible UTI. Outpatient urology follow-up recommended. Patient will be seen by urology until next week as per patient daughter. Increased discomfort and penile discharge as per records. Patient brought to ER as per daughter request. Patient denies chest pain, SOB, bladder discomfort. Patient legs more swollen than usual as per daughter when per read by ER provider. IV cefepime and Camejo catheter replaced at the ER. IV Lasix administered at the ER for CHF.. MEDICAL HISTORY: As above. 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 Principal Diagnosis Decompensated heart failure Penile erosion Discharge Exam CONSTITUTIONAL: WNWD, vitals as above, generally well-appearing, NAD EYES: normal conjunctivae, no scleral icterus ENT: external ear and nose normal, MMM NECK: trachea midline RESPIRATORY: rales on right base and crackles on left base, good air movement and normal respiratory effort , no wheezing. CARDIOVASCULAR: regular rate and rhythm, 3/6 MISSAEL, no gallops or rubs, no JVD, no peripheral edema, CHEST: inspection of chest was normal (+pacemaker, +port) GASTROINTESTINAL: soft, nontender, no guarding MUSCULOSKELETAL: strength 5/5 throughout, head is normocephalic and atraumatic SKIN: warm and dry NEUROLOGIC: CN 2-12 grossly intact, no sensory deficit, normal cognition, normal speech, no tremor PSYCHIATRIC: alert cooperative and oriented to person, place and time. Discharge Data Allergies Allergy/AdvReac Type Severity Reaction Status Date / Time shellfish derived Allergy Severe anaphylaxis Verified 12/31/21 21:44 clopidogrel Allergy Intermediate INTERNAL Verified 12/31/21 21:44 HIVES Penicillins Allergy Intermediate HIVES Verified 12/31/21 21:44 Consultations 12/31/21 21:33 ED Decision to Admit Stat 01/01/22 00:06 Consult Urology Routine 01/01/22 02:04 Consult Cardiology Routine Ordered Studies 12/31/21 18:25 CT abd pelvis wo con Stat Hospital Course (1) Decompensated heart failure: (2) Penile erosion: (3) ASCVD (arteriosclerotic cardiovascular disease): (4) PAF (paroxysmal atrial fibrillation): (5) Chronic indwelling Camejo catheter: (6) Dementia: Plan The patient is an 86-year-old man with a history of indwelling Camejo catheter and chronic recurrent UTIs on chronic methenamine suppression therapy who presented with pain in his penis. There was evidence of penile erosion at the catheter tip insertion site and his urinary catheter was exchanged on admission. Although he felt better, this still caused him some irritation and lidocaine jelly was helpful in this regard. Urology did see him and a CT of his abdomen and pelvis was performed. This revealed no evidence of hydronephrosis or obs truction with a chronically thickened bladder wall. Urology recommended continue supportive care and antibiotic therapy as recommended per culture results. There was a plan for outpatient follow-up with urology as scheduled on January 21. Urine culture returned negative and patient's antibiotics were taken down. Cardiology was consulted given his localized swelling of both lower legs. He had presumable acute diastolic heart failure and had improved after 2 doses of IV Lasix with significant urine output. Amlodipine was thought to be contributing to the chronic fluid retention. Resting echocardiogram was performed on 01/01 revealing a normal ejection fraction of 55% and moderate to severe tricuspid regurgitation with pulmonary hypertension. He was transitioned back to oral diuretics and discharged in stable condition. Close primary care follow-up was recommended. Notably metoprolol was added back to his regimen during this admission by cardiology. Total Time Total Time Spent Total Time Spent (In Minutes): 60 Discharge Plan Discharge Items Patient Disposition: Personal Assisted Reason For Visit: CHF, COMP UTI Discharge Diagnosis: Decompensated heart failure Penile erosion Condition on Discharge: Good Activity: Resume your previous activity Non-emergency contact: Primary Care Provider Call non-emergency contact if: you have any medication questions, your symptoms worsen, your pain is not controlled, your wound has increased redness and your wound pain has increased Follow-up/Referrals: Alden Mayes MD [Physician] - 01/21/22 1:40 pm Melo Carlos MD [Outside Practitioners] - (Date & Time 01/12/2022 11:20 AM Provider Melo Carlos MD Department [facility] ) [facility] [Primary Care Provider] - Diet: Carb Consistent or DM2 and Heart Healthy Addtl Attending Provider Instructions: Please take all medications as instructed on discharge list below. You are being given lidocaine jelly to use externally only as needed for significant discomfort on your penis. You may also use basic petroleum jelly in this area as needed. Please followup with Urology as outpatient for ongoing evaluation of the need for indwelling camejo catheter. Your cardiology team has resumed metoprolol this admission for blood pressure and heart rate control. You were given intravenous furosemide with improvement in breathing and lower extremity swelling in your legs during this admission. Please follow the post hospital heart failure instructions listed below. It is recommended that you go home with home health services for continued help with managing your indwelling urinary catheter. Please follow-up wtih your primary care physician within the next week to evaluate your penile erosion and ensure you are feeling better since returning home. This will also be important to ensure you are tolerating the metoprolol, and check your vital signs. It was a pleasure taking care of you! Please call if you have any questions or problems. You can reach a [facility] hospitalist on duty at [facility] 24 hours a day by calling [phone]. Take care of yourself. Rosamaria Kramer, [facility] Addtl Metal [employer]ader Provider Instructions: Call [phone] and go to the Emergency Room if: * You have tightness or pain in your chest that does not go away with rest or Nitroglycerin * You are very short of breath even with rest Call your doctor if any of the following symptoms or problems start or get worse: * Shortness of breath or difficulty breathing * Wake up at night short of breath * Chest pain * Cough * Swelling of your hands, fee, or legs * More fatigued or tired with your normal activity * Palpitations - sudden fast heart beats WEIGHT * Weigh yourself every morning after using the bathroom. * Use the same scale. * Wear the same amount of clothing. * Write your weight down on your chart. * Call your doctor if you gain more than 2-3 pounds in 1-2 days. MEDICATIONS * Use this discharge instruction sheet for instructions. * Take your medications at the time your doctor ordered. * Do not skip a dose of your medicines. * If you miss a dose of medicine, take as soon as possible, but DO NOT DOUBLE A DOSE. * Read your medicine information when you get home. * Know all of the side effects of your medicine. * Call your doctor's office if you have any side effects. * Be sure all of your doctors know what medicine and herbs you take (including cold, flu, and herbal medicine). * Pain Medicine: If you do not get relief from your pain, please call your doctor for help. Take the following with you to your follow-up doctor appointments: * Weight Chart * Medication List * List of questions Do not drink excessive alcohol, beer or wine. Pending Studies at Discharge: No Stand-Alone Forms: My [facility] Skilled Items Patient informed of condition?: Yes DNR: Yes Discharge Level of Care: Other Communicable Disease: No Discharge Prognosis: Stable Lines: None Urinary Catheter: Yes Medications and DC Order Prescriptions: New metoprolol succinate 50 mg Tablet Extended Release 24 Hr 50 mg PO QAM Qty: 30 0RF lidocaine HCl 2 % Jelly 5 ml EXT Q6H PRN (Reason: pain at urinary catheter insertion site) Qty: 50 0RF Rx Instructions: apply to penile tip at catheter insertion site as needed for pain Continued methenamine hippurate 1 gram tablet 1 g PO DAILY Qty: 30 8RF dutasteride 0.5 mg capsule 0.5 mg PO DAILY Qty: 30 11RF nitroglycerin [Nitrostat] 0.4 mg Tablet, Sublingual 0.4 mg sublingual UD PRN (Reason: Chest Pain) Rx Instructions: 1 EVERY 5 MINUTES NEEDED WITH CHEST PAIN UP TO 3 DOSES IN 15 MINUTES warfarin [Jantoven] 2.5 mg tablet 2.5 mg PO [id number] Rx Instructions: TAKES AT 1700 DAILY. TAKES EVERY DAY EXCEPT WEDNESDAYS. losartan 50 mg tablet 50 mg PO QAM Qty: 30 0RF sennosides [Senokot] 8.6 mg tablet 8.6 - 17.2 mg PO HS PRN (Reason: Constipation) Qty: 30 0RF acetaminophen [Tylenol] 325 mg Tablet 650 mg PO Q6H MDD 3 GRAMS/24 HOURS PRN (Reason: Pain) Qty: 60 0RF amlodipine 5 mg tablet 5 mg PO DAILY Qty: 30 0RF aspirin 81 mg Tablet,Delayed Release (Dr/Ec) 81 mg PO QAM Qty: 30 0RF isosorbide mononitrate 60 mg tablet extended release 24 hr 60 mg PO QAM Qty: 30 0RF tamsulosin 0.4 mg Capsule 0.4 mg PO HS Qty: 30 0RF albuterol sulfate 90 mcg/actuation HFA aerosol inhaler 2 puff INHALATION Q6H PRN (Reason: Wheezing) Qty: 6.7 0RF warfarin 5 mg Tablet 5 mg PO WK Rx Instructions: TAKES AT 1700. TAKES ON WEDNESDAYS ONLY Qc Antacid Tabs 750 mg PO TID PRN (Reason: Indigestion) furosemide 40 mg tablet 40 mg PO QAM atorvastatin 40 mg tablet 40 mg PO HS pantoprazole 40 mg tablet,delayed release (DR/EC) 40 mg PO HS insulin glargine [Lantus Solostar U-100 Insulin] 100 unit/mL (3 mL) insulin pen 14 unit subcut QAM clindamycin HCl 300 mg Capsule 600 mg PO DIRECTED PRN (Reason: PRIOR TO DENTAL APPT.) nystatin 100,000 unit/gram Cream 1 applic TOPICAL TID Rx Instructions: APPLY SMALL AMT UNDER FORESKIN TID AND PRN IF NEEDED. Discontinued ciprofloxacin HCl 500 mg tablet 500 mg PO Q12H 3 Days Qty: 5 0RF Rx Instructions: STARTED 12/30/21 FOR 3 DAYS Discharge Orders: Discharge Order (Routine); Ordered 01/04/22 Ordered By: Rosamaria Kramer Admission Data Admit Date/Time: 12/31/21 23:58 Attending Provider: Rosamaria Kramer Admit Provider: Alfredo Palm Primary Care Provider: [facility] LUTZ Other Providers: Alfredo Palm ; Nacho Valdez ; Jaun Chowdhury ; Gadiel Fairbanks ; Cortes Mason ; Tony Godwin ; Melo Rocha ; Catia Vasques ; Marlys Mcintyre ; Emi Briscoe ; Marvin Saldaña ; Alden Mayes ; Nacho Rivera ; Chidi Givens ; Amee Sherwood ; Timothy Turcios ; Janessa Shell ; Oksana Jo ; Farrukh Manzanares ; Dionna Faust ; Qing Cornelius ; Cortes Jean ; Rachel Glass ; Narendra Vallecillo ; [facility] Other Interventions: Discharge Summary Assessment (RN) Last Done: 01/04/22 13:54
== END 2022-01-04 15:15 | disposition home or self-care (01) | DRG 698 ==
LOC: ED 18:06 → SUATTDRO 23:58 → EDINP 23:58 → 2S 01-01 02:26

== ENCOUNTER 2022-06-05 13:20 | Inpatient (IN) ==
--- NOTE | 2022-06-05 14:04 | Emergency Department Note ---
Impression & Plan Hypoxia, Acute UTI, Leukocytosis, CHF (congestive heart failure), Anemia ED Provider Note NAME: ANTOINETTE AHUMADA AGE: 87 SEX: M : 1935 ARRIVES VIA: Ambulance INFORMANT: [Patient][ems, nursing] ED PROVIDER(S): [Yousif Langford MD] CHIEF COMPLAINT: Illness HISTORY OF PRESENT ILLNESS: The patient is an 87-year-old male with a history of pacemaker and CHF. He is on Eliquis. Patient was at our ED 12 days ago for fluid overload and CHF. He received IV Lasix and did better and was discharged. He is at a local care facility. As per the EMS crew, the patient has been running a fever intermittently all day. The fever seems to decrease with Tylenol. He has had a lower O2 satura tion today and has been coughing more. There is concern for infection as well as potentially fluid overload. The patient is a poor historian, he really does not want to be here in the ED. He thinks people are just overreacting. He denies chest pain or abdominal pain. PMHx/PSHx: See Below SOCIAL HISTORY: See Below. PHYSICAL EXAM: GENERAL: Patient is in no acute distress. HEENT: No acute trauma, normocephalic atraumatic, mucous membranes moist, no nasal congestion. NECK: No stridor, no adenopathy, no meningismus, trachea is midline. LUNGS: Diminished breath sounds bilaterally with crackles heard bilaterally, no obvious respiratory distress. Harsh cough noted. HEART: Subtle systolic murmur, regular rhythm, normal rate. ABDOMEN: Soft, nontender, bowel sounds positive, no peritonitis. EXTREMITIES: No cyanosis, moderate bilateral pedal edema, full range of motion of all the joints without pain or difficulty, no signs for acute trauma. NEUROLOGIC: Oriented x 3, no acute motor or sensory deficits, no focal weakness. SKIN: No rash, no jaundice, no diaphoresis. DIFFERENTIAL DIAGNOSIS: CHF, pneumonia, RSV, influenza, COVID-19, bacteremia, sepsis, UTI, anemia, electrolyte imbalance, cardiac ischemia, among others. EMERGENCY DEPARTMENT COURSE/PROCEDURES: Prior/Outside records reviewed: Previous ED visit 12 days ago. EMS notes. ECG per my interpretation: Indication was weakness and illness. The ECG shows a ventricular pacemaker with a rate of 61. There is no ST elevation, no PVCs. The QTC is 537 Continuous Cardiac Monitoring per my interpretation: An order was placed for continuous cardiac monitoring. The monitor shows a rate of 67 with a ventricular pacemaker. Critical Care Note: I have personally spent 39 minutes of critical care time in the direct management of this patient. This includes bedside care, interpretation of diagnostic studies, and testing, discussion with consultants, patient, and family members, and other required patient management activities. This 39 minutes is in excess of all separately billable procedures. MEDICAL DECISION MAKING: There is a mild leukocytosis, this could be consistent with infection. Patient is anemic but this appears baseline when looking back at previous testing. INR is slightly high at 1.2. Potassium low at 3.3, magnesium low at 1.5. No renal failure. No concerning liver enzyme elevation. BNP is elevated consistent with fluid overload. Chest x-ray does appear to show some CHF. The film looks about the same as the last chest x-ray performed. ECG shows a ventricular pacemaker. Cardiac enzyme testing x1 is slightly elevated. The patient has a history of a mild troponin elevation from previous testing. Urinalysis shows evidence for infection. Influenza, COVID and RSV test were negative. The patient received IV Lasix for his fluid overload. He was given IV magnesium and IV potassium. He was given IV cefepime as empiric antibiotic coverage. Patient has findings consistent with CHF. He may even have an underlying lung infection given his fever and hypoxia. He appears to have a UTI. He is now requiring oxygen to maintain his saturation above 90%. The patient is in need of a hospital stay. I spoke to the patient and his daughter. I did speak with case management, the on-call hospitalist was consulted. DISPOSITION: The patient's findings and presentation warrant a hospital stay. Past Med/Surg History Medical History ACS (acute coronary syndrome) CAD (coronary artery disease) Chronic anticoagulation Dementia DM type 2 (diabetes mellitus, type 2) DNR (do not resuscitate) Dyslipidemia Dyspnea on exertion Gout History of cerebral hemorrhage HTN (hypertension) Pacemaker Pancreatic cancer Paroxysmal atrial fibrillation Sinus node dysfunction SSS (sick sinus syndrome) Surgical History H/O arthroscopic knee surgery H/O colonoscopy H/O esophagogastroduodenoscopy H/O inguinal hernia repair History of pancreatectomy "07/15/2010 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 Beliefs That Will Affect Care: None and Sabianism marital status: / Current Living Situation: Personal Care Facility Current Living Situation Comment: Assisted living current occupational status: retired How many Children do You have: 2 Feels Safe at Home: Yes Assistive Devices: Walker Allergies Allergies Allergy/AdvReac Type Severity Reaction Status Date / Time shellfish derived Allergy Severe anaphylaxis Verified 12/31/21 21:44 clopidogrel Allergy Intermediate INTERNAL Verified 12/31/21 21:44 HIVES Penicillins Allergy Intermediate HIVES Verified 12/31/21 21:44 Home Meds Home Medications Medication Instructions Recorded Confirmed nitroglycerin 0.4 mg sublingual 0.4 mg sublingual UD PRN Chest Pain 09/04/18 12/31/21 tablet (Nitrostat) Qc Antacid Tabs 750 mg PO TID PRN Indigestion 09/04/21 12/31/21 atorvastatin 40 mg tablet 40 mg PO HS 09/04/21 12/31/21 furosemide 40 mg tablet 40 mg PO QAM 09/04/21 12/31/21 pantoprazole 40 mg tablet,delayed 40 mg PO HS 09/04/21 12/31/21 release warfarin 5 mg tablet 5 mg PO WK 09/04/21 12/31/21 warfarin 2.5 mg tablet (Jantoven) 2.5 mg PO 6XWK 10/04/21 12/31/21 insulin glargine 100 unit/mL (3 14 unit subcut QAM 12/13/21 12/31/21 mL) subcutaneous pen (Lantus Solostar U-100 Insulin) clindamycin HCl 300 mg capsule 600 mg PO DIRECTED PRN PRIOR TO 12/31/21 12/31/21 DENTAL APPT. nystatin 100,000 unit/gram topical 1 applic topical TID 12/31/21 12/31/21 cream Previous Rx's Medication Instructions Recorded acetaminophen 325 mg tablet 650 mg PO Q6H PRN Pain #60 tabs 08/21/21 (Tylenol) albuterol sulfate 90 mcg/actuation 2 puff inhalation Q6H PRN Wheezing 08/21/21 aerosol inhaler #6.7 grams amlodipine 5 mg tablet 5 mg PO DAILY #30 tabs 08/21/21 aspirin 81 mg tablet,delayed 81 mg PO QAM #30 tabs 08/21/21 release isosorbide mononitrate 60 mg 60 mg PO QAM #30 tabs 08/21/21 tablet,extended release 24 hr losartan 50 mg tablet 50 mg PO QAM #30 tabs 08/21/21 sennosides 8.6 mg tablet (Senokot) 8.6 - 17.2 mg PO HS PRN 08/21/21 Constipation #30 tabs tamsulosin 0.4 mg capsule 0.4 mg PO HS #30 caps 08/21/21 dutasteride 0.5 mg capsule 0.5 mg PO DAILY #30 caps 10/20/21 methenamine hippurate 1 gram tablet 1 g PO DAILY #30 tabs 10/22/21 lidocaine HCl 2 % mucosal jelly 5 ml EXT Q6H PRN pain at urinary 01/04/22 catheter insertion site #50 mL metoprolol succinate 50 mg 50 mg PO QAM #30 tabs 01/04/22 tablet,extended release 24 hr fluconazole 100 mg tablet 100 mg PO DAILY #10 tabs 01/21/22 (Diflucan) mupirocin 2 % topical ointment 1 applic topical TID #22 grams 01/21/22 Results & Data (ED) Vital Signs Vital Signs - 24 hr 06/05/22 13:34 06/05/22 13:43 06/05/22 13:43 Temperature 36.9 C Temperature Source Oral Pulse Rate 67 Pulse Rate [Apical] Respiratory Rate 18 Respiratory Effort / Characteristics Non-Labored Spontaneous Respiratory Depth Normal Respiratory Pattern Regular Blood Pressure 145/83 H Blood Pressure [Right Arm] Blood Pressure Mean 103 Blood Pressure Mean [Right Arm] Blood Pressure Position Sitting Pulse Oximetry 87 L 89 L Oxygen Delivery Method Room Air Nasal Cannula Nasal Cannula Oxygen Flow Rate 3 4 Sepsis Recent Fever Within 48 Hours Yes Sepsis New/Unexplained Change in Mental Status No Sepsis Action Taken by Nursing No Action Required 06/05/22 15:33 Temperature Temperature Source Pulse Rate Pulse Rate [Apical] 64 Respiratory Rate 20 Respiratory Effort / Characteristics Non-Labored Respiratory Depth Respiratory Pattern Blood Pressure Blood Pressure [Right Arm] 147/74 H Blood Pressure Mean Blood Pressure Mean [Right Arm] 98 Blood Pressure Position Pulse Oximetry 95 Oxygen Delivery Method Nasal Cannula Oxygen Flow Rate 2 Sepsis Recent Fever Within 48 Hours Sepsis New/Unexplained Change in Mental Status Sepsis Action Taken by [facility] Medications Current Medication List: was personally reviewed by me Laboratory Data Attestation: I reviewed the patient's lab results. 06/05/22 13:57 06/05/22 13:57 Lab Results 06/05/22 06/05/22 06/05/22 Range/Units 13:57 13:57 13:57 WBC 11.21 H (4.8-10.8) K/ul RBC 3.65 L (4.63-6.08) M/uL Hgb 10.8 L (14.0-18.0) g/dl Hct 33.0 L (40.1-51.0) % MCV 90.4 (80.0-100.0) fL MCH 29.6 (25.0-34.0) pg MCHC 32.7 (32.0-36.0) g/dL RDW Std Deviation 52.7 H (36.4-46.3) fL RDW Coeff of Trevon 15.9 H (11.5-14.5) % Plt Count 189 (130-400) K/uL MPV 10.6 (9.4-12.4) fL Immature Gran % (Auto) 0.4 % Neut % (Auto) 65.2 % Lymph % (Auto) 18.9 % [place] % (Auto) 11.2 % Eos % (Auto) 3.5 % Baso % (Auto) 0.8 % Neut # (Auto) 7.31 H (1.4-6.5) K/uL Lymph # (Auto) 2.12 (1.2-3.4) K/uL [place] # (Auto) 1.26 H (0.24-0.82) K/uL Eos # (Auto) 0.39 (0-0.50) K/uL Baso # (Auto) 0.09 (0-0.2) K/uL Immature Gran # (Auto) 0.04 H (0.00-0.02) K/uL PT (9.0-12.0) Seconds INR (0.9-1.1) APTT (21.0-31.0) Seconds PTT Ratio Sodium 139 (136-145) mmol/L Potassium 3.3 L (3.5-5.1) mmol/L Chloride 105 (98-107) mmol/L Carbon Dioxide 25 (21-32) mmol/L Anion Gap 9 (3-11) BUN 16 (6-23) mg/dl Creatinine 1.00 (0.6-1.4) mg/dl Est Cr Clr Drug Dosing 63.9 ml/min Est GFR ( Amer) 78.1 ml/min Est GFR (Non-Af Amer) 67.4 ml/min BUN/Creatinine Ratio 16.0 (10-20) Glucose 123 H (70-99(Fasting)) mg/dl Lactate (0.4-2.0) mmol/L Calcium 9.0 (8.5-10.1) mg/dl Magnesium 1.5 L (1.7-2.4) mg/dl Total Bilirubin 2.1 H (0.2-1.0) mg/dl AST 18 (13-39) U/L ALT 11 (7-52) U/L Alkaline Phosphatase 111 H (34-104) U/L Troponin I High Sens 34.3 H (0-20) pg/ml B-Natriuretic Peptide 472 H (0-100) pg/ml Total Protein 7.5 (6.0-8.3) gm/dl Albumin 3.4 (3.4-5.0) gm/dl Globulin 4.1 H (2.5-4.0) gm/dl Albumin/Globulin Ratio 0.8 L (0.9-2) Urine Color Urine Appearance (Clear) Urine pH (4.5-7.5) Ur Specific [place] (1.000-1.030) Urine Protein (Negative) Urine Glucose (UA) (Negative) Urine Ketones (Negative) Urine Blood (Negative) Urine Nitrite (Negative) Urine Bilirubin (Negative) Urine Urobilinogen (Negative) Ur Leukocyte Esterase (Negative) Urine WBC (Auto) (0-5) /hpf Urine RBC (Auto) (0-4) /hpf U Hyaline Cast (Auto) (0-5) /lpf U Epithel Cells (Auto) (0-5) /lpf Urine Bacteria (Auto) (Negative) SARS-CoV-2 (PCR) (Negative) Influenza Type A (PCR) (Neg) Influenza Type B (PCR) (Neg) RSV (RT-PCR) (Neg) 06/05/22 06/05/22 06/05/22 Range/Units 13:57 15:01 15:04 WBC (4.8-10.8) K/ul RBC (4.63-6.08) M/uL Hgb (14.0-18.0) g/dl Hct (40.1-51.0) % MCV (80.0-100.0) fL MCH (25.0-34.0) pg MCHC (32.0-36.0) g/dL RDW Std Deviation (36.4-46.3) fL RDW Coeff of Trevon (11.5-14.5) % Plt Count (130-400) K/uL MPV (9.4-12.4) fL Immature Gran % (Auto) % Neut % (Auto) % Lymph % (Auto) % [place] % (Auto) % Eos % (Auto) % Baso % (Auto) % Neut # (Auto) (1.4-6.5) K/uL Lymph # (Auto) (1.2-3.4) K/uL [place] # (Auto) (0.24-0.82) K/uL Eos # (Auto) (0-0.50) K/uL Baso # (Auto) (0-0.2) K/uL Immature Gran # (Auto) (0.00-0.02) K/uL PT 13.0 H (9.0-12.0) Seconds INR 1.2 H (0.9-1.1) APTT 31.2 H (21.0-31.0) Seconds PTT Ratio 1.1 Sodium (136-145) mmol/L Potassium (3.5-5.1) mmol/L Chloride (98-107) mmol/L Carbon Dioxide (21-32) mmol/L Anion Gap (3-11) BUN (6-23) mg/dl Creatinine (0.6-1.4) mg/dl Est Cr Clr Drug Dosing ml/min Est GFR ( Amer) ml/min Est GFR (Non-Af Amer) ml/min BUN/Creatinine Ratio (10-20) Glucose (70-99(Fasting)) mg/dl Lactate 1.0 (0.4-2.0) mmol/L Calcium (8.5-10.1) mg/dl Magnesium (1.7-2.4) mg/dl Total Bilirubin (0.2-1.0) mg/dl AST (13-39) U/L ALT (7-52) U/L Alkaline Phosphatase (34-104) U/L Troponin I High Sens (0-20) pg/ml B-Natriuretic Peptide (0-100) pg/ml Total Protein (6.0-8.3) gm/dl Albumin (3.4-5.0) gm/dl Globulin (2.5-4.0) gm/dl Albumin/Globulin Ratio (0.9-2) Urine Color Yellow Urine Appearance Clear (Clear) Urine pH 5.5 (4.5-7.5) Ur Specific [place] 1.008 (1.000-1.030) Urine Protein Negative (Negative) Urine Glucose (UA) Negative (Negative) Urine Ketones Negative (Negative) Urine Blood Trace H (Negative) Urine Nitrite Negative (Negative) Urine Bilirubin Negative (Negative) Urine Urobilinogen Negative (Negative) Ur Leukocyte Esterase 2+ H (Negative) Urine WBC (Auto) >30 H (0-5) /hpf Urine RBC (Auto) 0-4 (0-4) /hpf U Hyaline Cast (Auto) 0 (0-5) /lpf U Epithel Cells (Auto) 10-20 H (0-5) /lpf Urine Bacteria (Auto) Negative (Negative) SARS-CoV-2 (PCR) (Negative) Influenza Type A (PCR) (Neg) Influenza Type B (PCR) (Neg) RSV (RT-PCR) (Neg) 06/05/22 Range/Units 15:12 WBC (4.8-10.8) K/ul RBC (4.63-6.08) M/uL Hgb (14.0-18.0) g/dl Hct (40.1-51.0) % MCV (80.0-100.0) fL MCH (25.0-34.0) pg MCHC (32.0-36.0) g/dL RDW Std Deviation (36.4-46.3) fL RDW Coeff of Trevon (11.5-14.5) % Plt Count (130-400) K/uL MPV (9.4-12.4) fL Immature Gran % (Auto) % Neut % (Auto) % Lymph % (Auto) % [place] % (Auto) % Eos % (Auto) % Baso % (Auto) % Neut # (Auto) (1.4-6.5) K/uL Lymph # (Auto) (1.2-3.4) K/uL [place] # (Auto) (0.24-0.82) K/uL Eos # (Auto) (0-0.50) K/uL Baso # (Auto) (0-0.2) K/uL Immature Gran # (Auto) (0.00-0.02) K/uL PT (9.0-12.0) Seconds INR (0.9-1.1) APTT (21.0-31.0) Seconds PTT Ratio Sodium (136-145) mmol/L Potassium (3.5-5.1) mmol/L Chloride (98-107) mmol/L Carbon Dioxide (21-32) mmol/L Anion Gap (3-11) BUN (6-23) mg/dl Creatinine (0.6-1.4) mg/dl Est Cr Clr Drug Dosing ml/min Est GFR ( Amer) ml/min Est GFR (Non-Af Amer) ml/min BUN/Creatinine Ratio (10-20) Glucose (70-99(Fasting)) mg/dl Lactate (0.4-2.0) mmol/L Calcium (8.5-10.1) mg/dl Magnesium (1.7-2.4) mg/dl Total Bilirubin (0.2-1.0) mg/dl AST (13-39) U/L ALT (7-52) U/L Alkaline Phosphatase (34-104) U/L Troponin I High Sens (0-20) pg/ml B-Natriuretic Peptide (0-100) pg/ml Total Protein (6.0-8.3) gm/dl Albumin (3.4-5.0) gm/dl Globulin (2.5-4.0) gm/dl Albumin/Globulin Ratio (0.9-2) Urine Color Urine Appearance (Clear) Urine pH (4.5-7.5) Ur Specific [place] (1.000-1.030) Urine Protein (Negative) Urine Glucose (UA) (Negative) Urine Ketones (Negative) Urine Blood (Negative) Urine Nitrite (Negative) Urine Bilirubin (Negative) Urine Urobilinogen (Negative) Ur Leukocyte Esterase (Negative) Urine WBC (Auto) (0-5) /hpf Urine RBC (Auto) (0-4) /hpf U Hyaline Cast (Auto) (0-5) /lpf U Epithel Cells (Auto) (0-5) /lpf Urine Bacteria (Auto) (Negative) SARS-CoV-2 (PCR) NEGATIVE (Negative) Influenza Type A (PCR) Negative (Neg) Influenza Type B (PCR) Negative (Neg) RSV (RT-PCR) Negative (Neg) Administered Medications Discontinued Medications Furosemide (Furosemide 40 Mg/4 Ml Vial) 40 mg IV ONE ONE Stop: 06/05/22 14:53 Last Admin: 06/05/22 15:39 Dose: 40 mg Documented By: MELECIO Cefepime HCl (Maxipime) 2,000 mg in 20 mls @ 5 mls/min IV NOW STA; Protocol Stop: 06/05/22 14:55 Last Admin: 06/05/22 15:35 Dose: 5 mls/min Documented By: MELECIO Magnesium Sulfate/Dextrose (Magnesium Sulfate / D5w) 1 gm in 100 mls @ 100 mls/hr IV NOW STA Stop: 06/05/22 15:51 Last Admin: 06/05/22 15:47 Dose: 100 mls/hr Documented By: MELECIO Potassium Chloride (K Eavn / Wtr) 10 meq in 100 mls @ 100 mls/hr IV ONE ONE; Protocol Stop: 06/05/22 15:51 Last Admin: 06/05/22 15:47 Dose: 100 mls/hr Documented By: MELECIO Imaging Data Radiologist's Impression: Chest X-Ray 06/05/22 13:41 XR chest 1V portable CLINICAL HISTORY: adventitious lung sounds TECHNIQUE: Single frontal radiograph of the chest was obtained. Comparison: Comparison is made to chest radiograph 05/21/2022 FINDINGS: Median sternotomy wires are unchanged. Dual-lead pacemaker is seen. Cardiomegaly is noted. Reticular interstitial opacities are seen. Questionable faint opacity in the right lower lung. No evidence of pleural effusion or pneumothorax. IMPRESSION: Questionable faint opacity in the right lower lung compatible with aspiration/pneumonia or atelectasis. ACT 112: Negative or not required by law. Electronically signed by: Brandon Jimenez M.D. 06/05/2022 4:00 PM Discharge Plan Visit Data Chief Complaint: Illness ED Provider: Yousif Langford Discharge Problem: Hypoxia, Acute UTI, Leukocytosis, CHF (congestive heart failure), Anemia Patient Disposition: Admitted As Inpatient Condition: Fair Forms Stand Alone Forms: [facility] Prescriptions Prescriptions: No Action methenamine hippurate 1 gram tablet 1 g PO DAILY Qty: 30 8RF fluconazole [Diflucan] 100 mg tablet 100 mg PO DAILY Qty: 10 0RF mupirocin 2 % ointment 1 applic topical TID Qty: 22 5RF Rx Instructions: apply to meatus where catheter is eroding liberally dutasteride 0.5 mg capsule 0.5 mg PO DAILY Qty: 30 11RF nitroglycerin [Nitrostat] 0.4 mg Tablet, Sublingual 0.4 mg sublingual UD PRN (Reason: Chest Pain) Rx Instructions: 1 EVERY 5 MINUTES NEEDED WITH CHEST PAIN UP TO 3 DOSES IN 15 MINUTES warfarin [Jantoven] 2.5 mg tablet 2.5 mg PO 6XWK Rx Instructions: TAKES AT 1700 DAILY. TAKES EVERY DAY EXCEPT WEDNESDAYS. losartan 50 mg tablet 50 mg PO QAM Qty: 30 0RF sennosides [Senokot] 8.6 mg tablet 8.6 - 17.2 mg PO HS PRN (Reason: Constipation) Qty: 30 0RF acetaminophen [Tylenol] 325 mg Tablet 650 mg PO Q6H MDD 3 GRAMS/24 HOURS PRN (Reason: Pain) Qty: 60 0RF amlodipine 5 mg tablet 5 mg PO DAILY Qty: 30 0RF aspirin 81 mg Tablet,Delayed Release (Dr/Ec) 81 mg PO QAM Qty: 30 0RF isosorbide mononitrate 60 mg tablet extended release 24 hr 60 mg PO QAM Qty: 30 0RF tamsulosin 0.4 mg Capsule 0.4 mg PO HS Qty: 30 0RF albuterol sulfate 90 mcg/actuation HFA aerosol inhaler 2 puff INHALATION Q6H PRN (Reason: Wheezing) Qty: 6.7 0RF warfarin 5 mg Tablet 5 mg PO WK Rx Instructions: TAKES AT 1700. TAKES ON WEDNESDAYS ONLY Qc Antacid Tabs 750 mg PO TID PRN (Reason: Indigestion) furosemide 40 mg tablet 40 mg PO QAM atorvastatin 40 mg tablet 40 mg PO HS pantoprazole 40 mg tablet,delayed release (DR/EC) 40 mg PO HS insulin glargine [Lantus Solostar U-100 Insulin] 100 unit/mL (3 mL) insulin pen 14 unit subcut QAM clindamycin HCl 300 mg Capsule 600 mg PO DIRECTED PRN (Reason: PRIOR TO DENTAL APPT.) nystatin 100,000 unit/gram Cream 1 applic TOPICAL TID Rx Instructions: APPLY SMALL AMT UNDER [place] TID AND PRN IF NEEDED. metoprolol succinate 50 mg Tablet Extended Release 24 Hr 50 mg PO QAM Qty: 30 0RF lidocaine HCl 2 % Jelly 5 ml EXT Q6H PRN (Reason: pain at urinary catheter insertion site) Qty: 50 0RF Rx Instructions: apply to penile tip at catheter insertion site as needed for pain Referrals Referrals: [facility] [Primary Care Provider] -
[2022-06-05 14:20] LABS: Basophils # (auto) 0.09 K/uL (0-0.2); Basophils % (auto) 0.8 %; Eosinophils # (auto) 0.39 K/uL (0-0.50); Eosinophils % (auto) 3.5 %; Hemoglobin 10.8 g/dl (14.0-18.0); Immature Granulocytes # (auto) 0.04 K/uL (0.00-0.02); Immature Granulocytes % (auto) 0.4 %; Lymphocytes # (auto) 2.12 K/uL (1.2-3.4); Lymphocytes % (auto) 18.9 %; Mean Corpuscular Hemoglobin 29.6 pg (25.0-34.0); Mean Corpuscular Hgb Conc 32.7 g/dL (32.0-36.0); Mean Corpuscular Volume 90.4 fL (80.0-100.0); Mean Platelet Volume 10.6 fL (9.4-12.4); Monocytes # (auto) 1.26 K/uL (0.24-0.82); Monocytes % (auto) 11.2 %; Neutrophils # (auto) 7.31 K/uL (1.4-6.5); Neutrophils % (auto) 65.2 %; Platelet Count 189 K/uL (130-400); RDW Coefficient of Variation 15.9 % (11.5-14.5); RDW Standard Deviation 52.7 fL (36.4-46.3); Red Blood Count 3.65 M/uL (4.63-6.08); White Blood Count 11.21 K/ul (4.8-10.8)
[2022-06-05 14:39] LABS: INR 1.2 (0.9-1.1); Partial Thromboplastin Ratio 1.1; Partial Thromboplastin Time 31.2 Seconds (21.0-31.0)
[2022-06-05 14:46] LABS: Albumin Globulin Ratio 0.8 (0.9-2); Albumin Level 3.4 gm/dl (3.4-5.0); Bilirubin,Total 2.1 mg/dl (0.2-1.0); Creatinine Clr Calc Pharmacy 63.9 ml/min; Est GFR (African American) 78.1 ml/min; Est GFR (Non-African American) 67.4 ml/min; Globulin 4.1 gm/dl (2.5-4.0); Magnesium 1.5 mg/dl (1.7-2.4); Potassium 3.3 mmol/L (3.5-5.1); Total Protein 7.5 gm/dl (6.0-8.3)
[2022-06-05 14:49] LABS: Troponin I High Sensitivity 34.3 pg/ml (0-20)
[2022-06-05] MEDS ORDERED: CEFEPIME 2,000 MG/20 ML VIAL IV STA (14:52)
[2022-06-05] MEDS ORDERED: POTASSIUM CHLORIDE / WTR 10 MEQ/100 ML PLCT IV ONE (14:52)
[2022-06-05] MEDS ORDERED: FUROSEMIDE 40 MG/4 ML VIAL IV ONE (14:52)
[2022-06-05] MEDS ORDERED: MAGNESIUM SULFATE / D5W 1 GM/100 ML BAG IV STA (14:52)
[2022-06-05 15:28] LABS: Appearance Urine Clear (Clear); Bacteria Urine Automated Negative (Negative); Bilirubin Urine Negative (Negative); Blood Urine Trace (Negative); Cast Urine Automated 0 /lpf (0-5); Color Urine Yellow; Glucose Urine UA Negative (Negative); Ketones Urine Negative (Negative); Leukocyte Esterase Urine 2+ (Negative); Nitrite Urine Negative (Negative); Protein Urine Negative (Negative); RBC Urine Automated 0-4 /hpf (0-4); Specific Gravity Urine 1.008 (1.000-1.030); Urobilinogen Urine Negative (Negative); WBC Urine Automated >30 /hpf (0-5); pH Urine 5.5 (4.5-7.5)
--- NOTE | 2022-06-05 16:02 | XRay Report ---
XR chest 1V portable CLINICAL HISTORY: adventitious lung sounds TECHNIQUE: Single frontal radiograph of the chest was obtained. Comparison: Comparison is made to chest radiograph 05/21/2022 FINDINGS: Median sternotomy wires are unchanged. Dual-lead pacemaker is seen. Cardiomegaly is noted. Reticular interstitial opacities are seen. Questionable faint opacity in the right lower lung. No evidence of p leural effusion or pneumothorax. IMPRESSION: Questionable faint opacity in the right lower lung compatible with aspiration/pneumonia or atelectasi s. ACT 112: Negative or not required by law. Electronically signed by: Brandon Jimenez M.D. 06/05/2022 4:00 PM
[2022-06-05 16:16] LABS: Influenza A virus by PCR Negative (Neg); Influenza B virus by PCR Negative (Neg); RSV by PCR Negative (Neg); SARS CoV2 RNA(COVID-19) Ceph NEGATIVE (Negative)
[2022-06-05] MEDS ORDERED: NITROGLYCERIN SL 0.4 MG/TAB TAB SL PRN (17:02)
[2022-06-05] MEDS ORDERED: ACETAMINOPHEN 325 MG TAB PO PRN (17:02)
[2022-06-05] MEDS ORDERED: CALCIUM CARBONATE 500 MG CHEWABLE TAB PO PRN (17:18)
--- NOTE | 2022-06-05 18:03 | History & Physical Report ---
Date of Service June 05, 2022 Assessment & Plan (1) Acute respiratory failure with hypoxia: (2) Acute on chronic heart failure: (3) Aspiration pneumonia: (4) UTI (urinary tract infection): (5) PAF (paroxysmal atrial fibrillation): (6) CAD (coronary artery disease): (7) S/P CABG x 2: (8) DM type 2 (diabetes mellitus, type 2): (9) HTN (hypertension): (10) BPH (benign prostatic hyperplasia): Plan Acute Respiratory failure 2/2 Acute on CHF + Aspiration pneumonia: -pt is s/p 40mg IV Lasix in the ER - BNP is elevated -will do Lasix IV 40mg q24hr -daily weights, strict I/Os -will repeat echo - cardiology consult - trend trop -Admit to med tele - PT/OT consult (at baseline use walker) Aspiration Pneumonia: -started the pt on Cefepime and Flagyl -wean off of oxygen as pt tolerates UTI: -was on catheter in the past -on daily methenamine: will hold it while on IV abx - UCx in the past + for pseudomonas --- thus will do cefepime CAD s/p CABG, Afib on eliquis and SSS s/p pacemaker: -continue aspirin and eliquis -continue isosorbide mononitrate and metoprolol and statin IDDM: -will continue home Lantus and novolog units -ISS BPH with hx of urinary retention: -not on Urinary catheter anymore -will continue Tamsulosin, and Dutasteride HTN/HLD/GERD: -continue home meds Chronic anemia: -at baseline hgb -will monitor hgb Diet: DMII and heart healthy DVT PPx: Eliquis Code Status: DNR/DNI Emergency Contact: DaughterAKHIL Pradhan [phone] History of Present Illness Chief Complaint: SOB and fever Primary Care Provider: [facility] Pt is a 87 y/o M with hx of IDDM, HFpEF, CAD s/p CABG, Afib on eliquis, hx of chronic dwelling catheter (off the catheter now with recurrent UTI), Urinary incontinence, dementia, SSS s/p pacemaker, HTN, HLD came into the ER from [facility] with fever and worsening shortness of breath. Per daughter (who is a [employer]END[employer]): pt was in the ER 2 weeks ago received IV Lasix for fluid overload. Last few days pt has been having cough and SOB. Per daughter pts catheter was removed recently by urology. At bedside: pt denied any CP, SOB, Abd pain, N/V or dizziness Allergies Allergy/AdvReac Type Severity Reaction Status Date / Time shellfish derived Allergy Severe anaphylaxis Verified 06/05/22 16:36 clopidogrel Allergy Intermediate INTERNAL Verified 06/05/22 16:36 HIVES Penicillins Allergy Intermediate HIVES Verified 06/05/22 16:36 Home Medications Medication Instructions Recorded Confirmed Type acetaminophen 325 mg tablet 650 mg PO Q6 PRN Pain 06/05/22 06/05/22 History (Tylenol) amlodipine 5 mg tablet 5 mg PO DAILY 06/05/22 06/05/22 History apixaban 2.5 mg tablet (Eliquis) 2.5 mg PO BID 06/05/22 06/05/22 History aspirin 81 mg tablet,delayed 81 mg PO DAILY 06/05/22 06/05/22 History release atorvastatin 40 mg tablet 40 mg PO DAILY 06/05/22 06/05/22 History calcium carbonate 300 mg (750 mg) 600 mg PO TID PRN Indigestion 06/05/22 06/05/22 History chewable tablet (Tums E-X) dutasteride 0.5 mg capsule 0.5 mg PO DAILY 06/05/22 06/05/22 History furosemide 40 mg tablet (Lasix) 40 mg PO DAILY 06/05/22 06/05/22 History insulin aspart U-100 100 unit/mL 5 unit subcut TID 06/05/22 06/05/22 History (3 mL) subcutaneous pen (Novolog FlexPen U-100 Insulin aspart) insulin glargine 100 unit/mL (3 18 unit subcut BID 06/05/22 06/05/22 History mL) subcutaneous pen (Lantus Solostar U-100 Insulin) isosorbide mononitrate 60 mg 60 mg PO DAILY 06/05/22 06/05/22 History tablet,extended release 24 hr losartan 50 mg tablet 50 mg PO DAILY 06/05/22 06/05/22 History methenamine hippurate 1 gram tablet 1 g PO DAILY 06/05/22 06/05/22 History metoprolol succinate 50 mg 50 mg PO DAILY 06/05/22 06/05/22 History tablet,extended release 24 hr nitroglycerin 0.4 mg sublingual 0.4 mg sublingual DIRECTED PRN 06/05/22 06/05/22 History tablet (Nitrostat) Chest Pain pantoprazole 40 mg tablet,delayed 40 mg PO DAILY 06/05/22 06/05/22 History release tamsulosin 0.4 mg capsule 0.4 mg PO DAILY 06/05/22 06/05/22 History Past Med/Surg History Medical History (Updated 06/05/22 @ 17:59 by Lalitha Chong MD) ACS (acute coronary syndrome) BPH (benign prostatic hyperplasia) CAD (coronary artery disease) Chronic anticoagulation Dementia DM type 2 (diabetes mellitus, type 2) DNR (do not resuscitate) Dyslipidemia Dyspnea on exertion Gout History of cerebral hemorrhage HTN (hypertension) Pacemaker Pancreatic cancer Paroxysmal atrial fibrillation Sinus node dysfunction SSS (sick sinus syndrome) Surgical History H/O arthroscopic knee surgery H/O colonoscopy H/O esophagogastroduodenoscopy H/O inguinal hernia repair History of pancreatectomy "07/15/2010 [place] [facility] [place]P CABG x 1 S/P coronary artery stent placement "03/29/03 cardiac cath: RCA - stent of 90% lesion, L circ obtuse kenneth - stent of 80% lesion " S/P splenectomy S/P tonsillectomy and adenoidectomy Family History Other Family history non-contributory Social History Smoking Status: Former smoker Tobacco Type: Cigarettes Hx Alcohol Use: Yes Alcohol type: beer Hx Substance Use: No Preferred Language: Greek Communication Ability: Effective Cardiac Monitor Required: No Beliefs That Will Affect Care: None and Yarsanism marital status: / Current Living Situation: Personal Care Facility Current Living Situation Comment: Assisted living current occupational status: retired How many Children do You have: 2 Feels Safe at Home: Yes Assistive Devices: Walker Review of Systems Review of Systems: At least 10 Review of systems were reviewed and all negative except as indicated in HPI Physical Exam Physical Exam: General:. NAD, well developed, well nourished HEENT:.NC in place, Normocephalic and atraumatic, Normal Conjunctiva, EOMI, Sclera is non-icteric Lungs:.b/l lower lobe crackles, No wheezing Heart:.systolic murmur, Normal S1, S2 Abdominal:. ND, Soft, NT MSK:trace b/l LE pitting edema Psych:.AAOx2, normal affect Results & Data Results & Data ([facility]) Vital Signs (Past 12 Hours) Vital Signs Temp Pulse Pulse Resp BP BP Pulse Ox 06/05/22 17:37 61 20 155/85 H 95 06/05/22 17:05 62 20 131/84 94 06/05/22 16:34 61 18 128/82 93 06/05/22 15:33 64 20 147/74 H 95 06/05/22 13:43 06/05/22 13:43 89 L 06/05/22 13:34 36.9 C 67 18 145/83 H 87 L O2 Del Method O2 Flow Rate 06/05/22 17:37 Nasal Cannula 2 06/05/22 17:05 Nasal Cannula 2 06/05/22 16:34 Room Air 06/05/22 15:33 Nasal Cannula 2 06/05/22 13:43 Nasal Cannula 4 06/05/22 13:43 Nasal Cannula 3 06/05/22 13:34 Room Air Laboratory Results Short CBC 06/05/22 Range/Units 13:57 WBC 11.21 H (4.8-10.8) K/ul Hgb 10.8 L (14.0-18.0) g/dl Hct 33.0 L (40.1-51.0) % Plt Count 189 (130-400) K/uL BMP 06/05/22 13:57 Sodium 139 Potassium 3.3 L Chloride 105 Carbon Dioxide 25 BUN 16 Creatinine 1.00 Glucose 123 H Calcium 9.0 Liver Function 06/05/22 Range/Units 13:57 Total Bilirubin 2.1 H (0.2-1.0) mg/dl AST 18 (13-39) U/L ALT 11 (7-52) U/L Alkaline Phosphatase 111 H (34-104) U/L Albumin 3.4 (3.4-5.0) gm/dl Urine 06/05/22 Range/Units 15:04 Urine Color Yellow Urine Appearance Clear (Clear) Urine pH 5.5 (4.5-7.5) Ur Specific [place] 1.008 (1.000-1.030) Urine Protein Negative (Negative) Urine Glucose (UA) Negative (Negative) Diagnostic Findings Chest X-Ray 06/05/22 13:41 XR chest 1V portable CLINICAL HISTORY: adventitious lung sounds TECHNIQUE: Single frontal radiograph of the chest was obtained. Comparison: Comparison is made to chest radiograph 05/21/2022 FINDINGS: Median sternotomy wires are unchanged. Dual-lead pacemaker is seen. Cardiomegaly is noted. Reticular interstitial opacities are seen. Questionable faint opacity in the right lower lung. No evidence of pleural effusion or pneumothorax. IMPRESSION: Questionable faint opacity in the right lower lung compatible with aspiration/pneumonia or atelectasis. ACT 112: Negative or not required by law. Electronically signed by: Brandon Jimenez M.D. 06/05/2022 4:00 PM Code Status & VTE Plan VTE Prophylaxis Plan VTE Prophylaxis will be ordered: Yes
[2022-06-05] MEDS ORDERED: GLUCAGON FOR INJ 1 MG VIAL IM PRN (18:45)
[2022-06-05] MEDS ORDERED: DEXTROSE 50% 50 ML SYRINGE IV PRN ×2 (18:45)
[2022-06-05] MEDS ORDERED: GLUCAGON FOR INJ 1 MG VIAL SQ PRN (18:45)
[2022-06-05] MEDS ORDERED: GLUCOSE 10 TAB/TUBE PO PRN ×2 (18:45)
[2022-06-05] MEDS ORDERED: GLUCOSE 40% GEL 15 GM TUBE PO PRN ×2 (18:45)
[2022-06-05] MEDS ORDERED: CARBOHYDRATES FOR HYPOGLYCEMIA PO PRN ×2 (18:45)
[2022-06-05] MEDS: metroNIDAZOLE 500 MG/100 ML BAG IV SCH (20:57)
[2022-06-05] MEDS ORDERED: INSULIN ASPART PER UNIT SC SCH (21:00)
[2022-06-05] MEDS: APIXABAN 2.5 MG TAB PO SCH (21:01)
[2022-06-05] MEDS: LANTUS PER UNIT CHARGE SQ SCH (21:06)
[2022-06-05] MEDS: INSULIN ASPART PER UNIT SQ SCH (21:06)
[2022-06-06] MEDS: CEFEPIME 2,000 MG in SYRINGE 0 ML IV SCH ×3 (00:56→17:22)
[2022-06-06 02:46] LABS: Basophils # (auto) 0.07 K/uL (0-0.2); Basophils % (auto) 0.7 %; Eosinophils # (auto) 0.52 K/uL (0-0.50); Eosinophils % (auto) 5.4 %; Hematocrit (blood only) 32.5 % (40.1-51.0); Hemoglobin 10.8 g/dl (14.0-18.0); Immature Granulocytes # (auto) 0.04 K/uL (0.00-0.02); Immature Granulocytes % (auto) 0.4 %; Lymphocytes % (auto) 20.7 %; Mean Corpuscular Hemoglobin 29.8 pg (25.0-34.0); Mean Corpuscular Hgb Conc 33.2 g/dL (32.0-36.0); Mean Corpuscular Volume 89.8 fL (80.0-100.0); Mean Platelet Volume 10.5 fL (9.4-12.4); Monocytes # (auto) 1.36 K/uL (0.24-0.82); Neutrophils # (auto) 5.69 K/uL (1.4-6.5); Neutrophils % (auto) 58.8 %; Platelet Count 167 K/uL (130-400); RDW Coefficient of Variation 15.9 % (11.5-14.5); RDW Standard Deviation 52.2 fL (36.4-46.3); Red Blood Count 3.62 M/uL (4.63-6.08); White Blood Count 9.68 K/ul (4.8-10.8)
[2022-06-06 03:08] LABS: Albumin Globulin Ratio 0.9 (0.9-2); Albumin Level 3.5 gm/dl (3.4-5.0); Bilirubin,Total 1.7 mg/dl (0.2-1.0); Calcium 8.4 mg/dl (8.5-10.1); Creatinine Clr Calc Pharmacy 58.8 ml/min; Est GFR (African American) 78.1 ml/min; Est GFR (Non-African American) 67.4 ml/min; Globulin 3.9 gm/dl (2.5-4.0); Magnesium 1.7 mg/dl (1.7-2.4); Potassium 3.3 mmol/L (3.5-5.1); Total Protein 7.4 gm/dl (6.0-8.3)
[2022-06-06] MEDS: metroNIDAZOLE 500 MG/100 ML BAG IV SCH ×3 (03:58→21:38)
[2022-06-06] MEDS ORDERED: POTASSIUM CHLORIDE 20 MEQ/15 ML UDC PO ONE (08:05)
[2022-06-06] MEDS: APIXABAN 2.5 MG TAB PO SCH ×2 (08:36→21:46)
[2022-06-06] MEDS: FUROSEMIDE 40 MG/4 ML VIAL IV SCH (08:36)
[2022-06-06] MEDS: ATORVASTATIN 40 MG TAB PO SCH (08:36)
[2022-06-06] MEDS: amLODIPine BESYLATE 5 MG TAB PO SCH (08:36)
[2022-06-06] MEDS: METOPROLOL SUCC 50MG EXT REL TAB PO SCH (08:37)
[2022-06-06] MEDS: PANTOprazole 40 MG TAB PO SCH (08:37)
[2022-06-06] MEDS: ISOSORBIDE MONO EXTENDED REL 60 MG TABCR PO SCH (08:37)
[2022-06-06] MEDS: LOSARTAN POTASSIUM 50 MG TAB PO SCH (08:37)
[2022-06-06] MEDS: ASPIRIN 81 MG ECTAB PO SCH (08:37)
[2022-06-06] MEDS: TAMSULOSIN HCL 0.4 MG CAP PO SCH (08:38)
[2022-06-06] MEDS: LANTUS PER UNIT CHARGE SQ SCH ×2 (08:43→21:44)
[2022-06-06] MEDS: INSULIN ASPART PER UNIT SQ SCH (08:57)
--- NOTE | 2022-06-06 12:04 | Cardiology Consultation ---
Date of Consultation June 06, 2022 Assessment & Plan (1) Acute respiratory failure with hypoxia: (2) Acute on chronic heart failure: (3) Persistent atrial fibrillation: (4) S/P CABG x 2: (5) Pacemaker: Plan Patient is a complex 87-year-old male who presents with worsening respiratory distress hypoxia with fever and cough. Patient recently treated for volume overload as well with exam suggesting mixed etiology today. Chest x-ray with increased vascular markings however after diuretics overnight no evidence of profound volume overload on physical exam Patient being treated with antibiotic therapy Echocardiogram similar to prior studies with mild reduction in LV systolic function EF 40-45% with changes consistent ischemic heart disease. Mixed valvular disease including mild to moderate aortic stenosis mild to moderate mitral sufficiency and moderate to severe tricuspid insufficiency. There is dilatation of the right ventricle and right atrial reflecting the elevated pulmonary pressures Recommendations: Continue IV furosemide as ordered with daily BMP and preh ospital cardiac medications Treat underlying infectious process Closely follow oxygenation suspect may require chronic O2 replacement History of Present Illness Reason for Consultation: Shortness of breath, cough Requesting Physician: Dr. Ring Attending Physician: Yogesh Ring MD History of Present Illness Patient is a complex 87-year-old male ongoing cardiac issues which include 1. Chronic stable ischemic heart disease . Catheter based intervention with bare metal stent to RCA and left circumflex coronary arteries with bare metal stent in 2002. 2. S/P CABG - CLEARY to LAD and a saphenous vein graft to obtuse marginal branch and a modified Maze procedure and occlusion of the left atrial appendage 03/06/07. 3. November 2016 NSTEMI, POBA of the RPDA with residual 50% stenosis. 4. Paroxysmal atrial fibrillation flutter now persistent atrial fibrillation with tachybradycardia syndrome status post dual-chamber pacemaker insertion 2015 5. Chronic systolic and diastolic heart failure 6. Hypertension 7. Dementia Patient referred for further evaluation. Patient relatively poor historian regarding recent events. Records reflect ER evaluation the past 2 weeks with volume overload. Patient is now referred from care facility with increasing cough, fevers and hypoxia. Chest x-ray with increased interstitial markings Exam notable for rhonchi left base and crackles bibasilar Rhythm ventricular paced with underlying atrial fibrillation no change from December 2021 Allergies Allergy/AdvReac Type Severity Reaction Status Date / Time shellfish derived Allergy Severe anaphylaxis Verified 06/05/22 16:36 clopidogrel Allergy Intermediate INTERNAL Verified 06/05/22 16:36 HIVES Penicillins Allergy Intermediate HIVES Verified 06/05/22 16:36 Home Medications Medication Instructions Recorded Confirmed Type acetaminophen 325 mg tablet 650 mg PO Q6 PRN Pain 06/05/22 06/05/22 History (Tylenol) amlodipine 5 mg tablet 5 mg PO DAILY 06/05/22 06/05/22 History apixaban 2.5 mg tablet (Eliquis) 2.5 mg PO BID 06/05/22 06/05/22 History aspirin 81 mg tablet,delayed 81 mg PO DAILY 06/05/22 06/05/22 History release atorvastatin 40 mg tablet 40 mg PO DAILY 06/05/22 06/05/22 History calcium carbonate 300 mg (750 mg) 600 mg PO TID PRN Indigestion 06/05/22 06/05/22 History chewable tablet (Tums E-X) dutasteride 0.5 mg capsule 0.5 mg PO DAILY 06/05/22 06/05/22 History furosemide 40 mg tablet (Lasix) 40 mg PO DAILY 06/05/22 06/05/22 History insulin aspart U-100 100 unit/mL 5 unit subcut TID 06/05/22 06/05/22 History (3 mL) subcutaneous pen (Novolog FlexPen U-100 Insulin aspart) insulin glargine 100 unit/mL (3 18 unit subcut BID 06/05/22 06/05/22 History mL) subcutaneous pen (Lantus Solostar U-100 Insulin) isosorbide mononitrate 60 mg 60 mg PO DAILY 06/05/22 06/05/22 History tablet,extended release 24 hr losartan 50 mg tablet 50 mg PO DAILY 06/05/22 06/05/22 History methenamine hippurate 1 gram tablet 1 g PO DAILY 06/05/22 06/05/22 History metoprolol succinate 50 mg 50 mg PO DAILY 06/05/22 06/05/22 History tablet,extended release 24 hr nitroglycerin 0.4 mg sublingual 0.4 mg sublingual DIRECTED PRN 06/05/22 06/05/22 History tablet (Nitrostat) Chest Pain pantoprazole 40 mg tablet,delayed 40 mg PO DAILY 06/05/22 06/05/22 History release tamsulosin 0.4 mg capsule 0.4 mg PO DAILY 06/05/22 06/05/22 History Patient History Medical History (Updated 06/06/22 @ 12:25 by Gadiel Fairbanks MD) ACS (acute coronary syndrome) BPH (benign prostatic hyperplasia) CAD (coronary artery disease) Chronic anticoagulation Dementia DM type 2 (diabetes mellitus, type 2) DNR (do not resuscitate) Dyslipidemia Dyspnea on exertion Gout History of cerebral hemorrhage HTN (hypertension) Pacemaker Pancreatic cancer Paroxysmal atrial fibrillation Sinus node dysfunction SSS (sick sinus syndrome) Surgical History H/O arthroscopic knee surgery H/O colonoscopy H/O esophagogastroduodenoscopy H/O inguinal hernia repair History of pancreatectomy "07/15/2010 Dr. Pacheco [facility] [place] " S/P CABG x 1 S/P coronary artery stent placement "03/29/03 cardiac cath: RCA - stent of 90% lesion, L circ obtuse kenneth - stent of 80% lesion " S/P splenectomy S/P tonsillectomy and adenoidectomy Family History Other Family history non-contributory Social History Smoking Status: Former smoker Tobacco Type: Cigarettes Do You Dip or Chew Tobacco: No; Hx Alcohol Use: Yes Alcohol type: beer Hx Substance Use: No Preferred Language: Cambodian Communication Ability: Effective Tobacco Drummer Required: No Beliefs That Will Affect Care: None marital status: / Current Living Situation: Personal Care Facility Current Living Situation Comment: Assisted living current occupational status: retired How many Children do You have: 2 Other Information That Helps Us Care for You: No Feels Safe at Home: Yes Safety Concerns: Feels Safe At This Time Assistive Devices: Walker Review of Systems Review of Systems: Unobtainable due to cognitive status Physical Exam Constitutional: no acute distress Eyes: PERRL, conjunctivae normal, anicteric sclerae ENMT: external ear and nose normal, oropharynx normal Neck: trachea midline, no thyromegaly Respiratory: Auscultation: + crackles (Bilateral) and + rhonchi (Left base with cough) Cardiovascular: Rate/Rhythm: regular rhythm (Ventricular paced) Heart Sounds: + murmur (Grade 2 over 6 systolic) Vessels: no JVD Extremities: + edema (Trace) Chest (Breasts): Chest: normal inspection of chest and + pacemaker Gastrointestinal (Abdomen): normal bowel sounds, soft, nontender, no hepatosplenomegaly Results & Data ([facility]) Vital Signs (Past 12 Hours) Vital Signs Temp Pulse Pulse Resp BP Pulse Ox O2 Del Method 06/06/22 07:29 64 06/06/22 07:21 37.0 C 60 20 145/75 H 95 Nasal Cannula 06/06/22 03:00 36.7 C 59 L 20 143/79 H 93 Room Air O2 Flow Rate 06/06/22 07:29 06/06/22 07:21 2 06/06/22 03:00 Laboratory Results Laboratory Results - last 24 hr 06/05/22 06/05/22 06/05/22 13:57 13:57 13:57 WBC 11.21 H RBC 3.65 L Hgb 10.8 L Hct 33.0 L MCV 90.4 MCH 29.6 MCHC 32.7 RDW Std Deviation 52.7 H RDW Coeff of Trevon 15.9 H Plt Count 189 MPV 10.6 Immature Gran % (Auto) 0.4 Neut % (Auto) 65.2 Lymph % (Auto) 18.9 [place] % (Auto) 11.2 Eos % (Auto) 3.5 Baso % (Auto) 0.8 Neut # (Auto) 7.31 H Lymph # (Auto) 2.12 [place] # (Auto) 1.26 H Eos # (Auto) 0.39 Baso # (Auto) 0.09 Immature Gran # (Auto) 0.04 H PT INR APTT PTT Ratio Sodium 139 Potassium 3.3 L Chloride 105 Carbon Dioxide 25 Anion Gap 9 BUN 16 Creatinine 1.00 Est Cr Clr Drug Dosing 63.9 Est GFR ( Amer) 78.1 Est GFR (Non-Af Amer) 67.4 BUN/Creatinine Ratio 16.0 Glucose 123 H POC Glucose Lactate Calcium 9.0 Magnesium 1.5 L Total Bilirubin 2.1 H AST 18 ALT 11 Alkaline Phosphatase 111 H Troponin I High Sens 34.3 H B-Natriuretic Peptide 472 H Total Protein 7.5 Albumin 3.4 Globulin 4.1 H Albumin/Globulin Ratio 0.8 L Urine Color Urine Appearance Urine pH Ur Specific [place] Urine Protein Urine Glucose (UA) Urine Ketones Urine Blood Urine Nitrite Urine Bilirubin Urine Urobilinogen Ur Leukocyte Esterase Urine WBC (Auto) Urine RBC (Auto) U Hyaline Cast (Auto) U Epithel Cells (Auto) Urine Bacteria (Auto) SARS-CoV-2 (PCR) Influenza Type A (PCR) Influenza Type B (PCR) RSV (RT-PCR) 06/05/22 06/05/22 06/05/22 13:57 15:01 15:04 WBC RBC Hgb Hct MCV MCH MCHC RDW Std Deviation RDW Coeff of Trevon Plt Count MPV Immature Gran % (Auto) Neut % (Auto) Lymph % (Auto) [place] % (Auto) Eos % (Auto) Baso % (Auto) Neut # (Auto) Lymph # (Auto) [place] # (Auto) Eos # (Auto) Baso # (Auto) Immature Gran # (Auto) PT 13.0 H INR 1.2 H APTT 31.2 H PTT Ratio 1.1 Sodium Potassium Chloride Carbon Dioxide Anion Gap BUN Creatinine Est Cr Clr Drug Dosing Est GFR ( Amer) Est GFR (Non-Af Amer) BUN/Creatinine Ratio Glucose POC Glucose Lactate 1.0 Calcium Magnesium Total Bilirubin AST ALT Alkaline Phosphatase Troponin I High Sens B-Natriuretic Peptide Total Protein Albumin Globulin Albumin/Globulin Ratio Urine Color Yellow Urine Appearance Clear Urine pH 5.5 Ur Specific [place] 1.008 Urine Protein Negative Urine Glucose (UA) Negative Urine Ketones Negative Urine Blood Trace H Urine Nitrite Negative Urine Bilirubin Negative Urine Urobilinogen Negative Ur Leukocyte Esterase 2+ H Urine WBC (Auto) >30 H Urine RBC (Auto) 0-4 U Hyaline Cast (Auto) 0 U Epithel Cells (Auto) 10-20 H Urine Bacteria (Auto) Negative SARS-CoV-2 (PCR) Influenza Type A (PCR) Influenza Type B (PCR) RSV (RT-PCR) 06/05/22 06/05/22 06/05/22 15:12 19:53 19:54 WBC RBC Hgb Hct MCV MCH MCHC RDW Std Deviation RDW Coeff of Trevon Plt Count MPV Immature Gran % (Auto) Neut % (Auto) Lymph % (Auto) [place] % (Auto) Eos % (Auto) Baso % (Auto) Neut # (Auto) Lymph # (Auto) [place] # (Auto) Eos # (Auto) Baso # (Auto) Immature Gran # (Auto) PT INR APTT PTT Ratio Sodium Potassium Chloride Carbon Dioxide Anion Gap BUN Creatinine Est Cr Clr Drug Dosing Est GFR ( Amer) Est GFR (Non-Af Amer) BUN/Creatinine Ratio Glucose POC Glucose 141 H Lactate Calcium Magnesium Total Bilirubin AST ALT Alkaline Phosphatase Troponin I High Sens 36.2 H B-Natriuretic Peptide Total Protein Albumin Globulin Albumin/Globulin Ratio Urine Color Urine Appearance Urine pH Ur Specific [place] Urine Protein Urine Glucose (UA) Urine Ketones Urine Blood Urine Nitrite Urine Bilirubin Urine Urobilinogen Ur Leukocyte Esterase Urine WBC (Auto) Urine RBC (Auto) U Hyaline Cast (Auto) U Epithel Cells (Auto) Urine Bacteria (Auto) SARS-CoV-2 (PCR) NEGATIVE Influenza Type A (PCR) Negative Influenza Type B (PCR) Negative RSV (RT-PCR) Negative 06/06/22 06/06/22 06/06/22 02:14 02:14 02:14 WBC 9.68 RBC 3.62 L Hgb 10.8 L Hct 32.5 L MCV 89.8 MCH 29.8 MCHC 33.2 RDW Std Deviation 52.2 H RDW Coeff of Trevon 15.9 H Plt Count 167 MPV 10.5 Immature Gran % (Auto) 0.4 Neut % (Auto) 58.8 Lymph % (Auto) 20.7 [place] % (Auto) 14.0 Eos % (Auto) 5.4 Baso % (Auto) 0.7 Neut # (Auto) 5.69 Lymph # (Auto) 2.00 [place] # (Auto) 1.36 H Eos # (Auto) 0.52 H Baso # (Auto) 0.07 Immature Gran # (Auto) 0.04 H PT INR APTT PTT Ratio Sodium 137 Potassium 3.3 L Chloride 103 Carbon Dioxide 28 Anion Gap 6 BUN 20 Creatinine 1.00 Est Cr Clr Drug Dosing 58.8 Est GFR ( Amer) 78.1 Est GFR (Non-Af Amer) 67.4 BUN/Creatinine Ratio 20.0 Glucose 149 H POC Glucose Lactate Calcium 8.4 L Magnesium 1.7 Total Bilirubin 1.7 H AST 18 ALT 10 Alkaline Phosphatase 106 H Troponin I High Sens 34.9 H B-Natriuretic Peptide Total Protein 7.4 Albumin 3.5 Globulin 3.9 Albumin/Globulin Ratio 0.9 Urine Color Urine Appearance Urine pH Ur Specific [place] Urine Protein Urine Glucose (UA) Urine Ketones Urine Blood Urine Nitrite Urine Bilirubin Urine Urobilinogen Ur Leukocyte Esterase Urine WBC (Auto) Urine RBC (Auto) U Hyaline Cast (Auto) U Epithel Cells (Auto) Urine Bacteria (Auto) SARS-CoV-2 (PCR) Influenza Type A (PCR) Influenza Type B (PCR) RSV (RT-PCR) 06/06/22 06/06/22 07:48 11:45 WBC RBC Hgb Hct MCV MCH MCHC RDW Std Deviation RDW Coeff of Trevon Plt Count MPV Immature Gran % (Auto) Neut % (Auto) Lymph % (Auto) [place] % (Auto) Eos % (Auto) Baso % (Auto) Neut # (Auto) Lymph # (Auto) [place] # (Auto) Eos # (Auto) Baso # (Auto) Immature Gran # (Auto) PT INR APTT PTT Ratio Sodium Potassium Chloride Carbon Dioxide Anion Gap BUN Creatinine Est Cr Clr Drug Dosing Est GFR ( Amer) Est GFR (Non-Af Amer) BUN/Creatinine Ratio Glucose POC Glucose 98 150 H Lactate Calcium Magnesium Total Bilirubin AST ALT Alkaline Phosphatase Troponin I High Sens B-Natriuretic Peptide Total Protein Albumin Globulin Albumin/Globulin Ratio Urine Color Urine Appearance Urine pH Ur Specific [place] Urine Protein Urine Glucose (UA) Urine Ketones Urine Blood Urine Nitrite Urine Bilirubin Urine Urobilinogen Ur Leukocyte Esterase Urine WBC (Auto) Urine RBC (Auto) U Hyaline Cast (Auto) U Epithel Cells (Auto) Urine Bacteria (Auto) SARS-CoV-2 (PCR) Influenza Type A (PCR) Influenza Type B (PCR) RSV (RT-PCR)
[2022-06-06] MEDS: INSULIN ASPART PER UNIT SC SCH ×3 (12:52→21:50)
--- NOTE | 2022-06-06 13:57 | Hospitalist Progress Note ---
Date of Service June 06, 2022 Assessment & Plan (1) Acute respiratory failure with hypoxia: (2) Acute on chronic heart failure: (3) Aspiration pneumonia: (4) UTI (urinary tract infection): (5) PAF (paroxysmal atrial fibrillation): (6) CAD (coronary artery disease): (7) S/P CABG x 2: (8) DM type 2 (diabetes mellitus, type 2): (9) HTN (hypertension): (10) BPH (benign prostatic hyperplasia): Plan Acute Respiratory failure with Hypoxia Acute on chronic systolic heart failure Valvular heart disease Aspiration pneumonia -CXR:Questionable faint opacity in the right lower lung compatible with aspiration/pneumonia or atelectasis. -ECHO: Mild concentric LVH, mild to moderate global hypokinesis of left ventricle, apical wall motion abnormality may reflect pacemaker activation, focal hypokinesis of the apical inferior and posterior ray. EF 40 to 45%. Left atrium is moderately dilated. Right ventricle is moderately dilated. Right atrium is severely dilated. Aortic valve leaflets or moderately calcified. Mild to moderate valvular aortic stenosis. Mild to moderate mitral regurgitation. Moderate to severe tricuspid regurgitation. Right ventricular systolic pressure is moderately dilated at 40 to 50 mmHg. -Continue IV Lasix Monitor volume status, I's and O's, daily weight Appreciate cardiology input Continue antibiotics Speech therapy consulted Aspiration precautions Continue supplemental oxygen as needed UTI: -was on catheter in the past -on daily methenamine--hold for now Urine culture pending Continue antibiotics as above CAD s/p CABG Afib on Eliquis SSS S/P pacemaker Continue aspirin and eliquis Continue Isosorbide, metoprolol, statin DM II: Continue ISS, Lantus Monitor BGs BPH H/O urinary retention: continue Tamsulosin, Dutasteride HTN/HLD/GERD: -continue home meds Chronic anemia: -Hb at baseline DVT Px: Eliquis Code Status: DNR/DNI Disposition PT OT prior to discharge Admission and Anticipated Discharge Date Admission Date: June 05, 2022 Subjective Patient is seen and examined at bedside States having cough with occasional expectoration Dyspnea better Denies any chest pain, dizziness, nausea, vomiting No other complaints Saturating well on 2 L supplemental oxygen Review of Systems Review of Systems: All systems reviewed & are unremarkable except as noted in Subjective Physical Exam Physical Exam: Physical Exam: Vitals signs as noted above General Appearance:Moderately built and nourished, no apparent distress Head: normocephalic, Atraumatic Eyes: normal inspection, EOMI Neck: supple, Trachea midline Respiratory/Chest: Coarse breath sounds, +Rhonchi, No accessory muscle use Cardiovascular: S1, S2, + murmur Abdomen/GI:Soft, Non tender, Bowel sounds present Extremities/Musculoskeletal:normal inspection, Trace edema Neurologic/Psych:AAOX3, grossly no focal neurological deficits, +Decreased hearing Skin: normal color, warm Results & Data Results & Data ([facility]) Vital Signs (Past 12 Hours) Vital Signs Temp Pulse Pulse Resp BP Pulse Ox O2 Del Method 06/06/22 08:00 Nasal Cannula 06/06/22 07:29 64 06/06/22 07:21 37.0 C 60 20 145/75 H 95 Nasal Cannula 06/06/22 03:00 36.7 C 59 L 20 143/79 H 93 Room Air O2 Flow Rate 06/06/22 08:00 2 06/06/22 07:29 06/06/22 07:21 2 06/06/22 03:00 Laboratory Results Short CBC 06/05/22 06/06/22 Range/Units 13:57 02:14 WBC 11.21 H 9.68 (4.8-10.8) K/ul Hgb 10.8 L 10.8 L (14.0-18.0) g/dl Hct 33.0 L 32.5 L (40.1-51.0) % Plt Count 189 167 (130-400) K/uL BMP 06/05/22 06/06/22 13:57 02:14 Sodium 139 137 Potassium 3.3 L 3.3 L Chloride 105 103 Carbon Dioxide 25 28 BUN 16 20 Creatinine 1.00 1.00 Glucose 123 H 149 H Calcium 9.0 8.4 L Liver Function 06/05/22 06/06/22 Range/Units 13:57 02:14 Total Bilirubin 2.1 H 1.7 H (0.2-1.0) mg/dl AST 18 18 (13-39) U/L ALT 11 10 (7-52) U/L Alkaline Phosphatase 111 H 106 H (34-104) U/L Albumin 3.4 3.5 (3.4-5.0) gm/dl Urine 06/05/22 Range/Units 15:04 Urine Color Yellow Urine Appearance Clear (Clear) Urine pH 5.5 (4.5-7.5) Ur Specific [place] 1.008 (1.000-1.030) Urine Protein Negative (Negative) Urine Glucose (UA) Negative (Negative)
--- NOTE | 2022-06-06 21:57 | Electrocardiogram Report ---
Test Reason : Blood Pressure : / mmHG Vent. Rate : 061 BPM Atrial Rate : 061 BPM P-R Int : 000 ms QRS Dur : 172 ms QT Int : 534 ms P-R-T Axes : 000 -78 096 degrees QTc Int : 537 ms Ventricular-paced rhythm Abnormal ECG When compared with ECG of 13-DEC-2021 12:54, Premature ventricular complexes are no longer Present Vent. rate has decreased BY 5 BPM Confirmed by Alden Khan ([id number]) on 06/06/2022 9:57:04 PM Referred By: [facility] Confirmed By:Alden Khan
[2022-06-07] MEDS: CEFEPIME 2,000 MG in SYRINGE 0 ML IV SCH ×3 (00:48→20:42)
[2022-06-07] MEDS: metroNIDAZOLE 500 MG/100 ML BAG IV SCH ×3 (02:58→18:06)
[2022-06-07 07:37] LABS: Hematocrit (blood only) 34.3 % (40.1-51.0); Hemoglobin 11.4 g/dl (14.0-18.0); Mean Corpuscular Hemoglobin 29.8 pg (25.0-34.0); Mean Corpuscular Hgb Conc 33.2 g/dL (32.0-36.0); Mean Corpuscular Volume 89.6 fL (80.0-100.0); Mean Platelet Volume 10.3 fL (9.4-12.4); Platelet Count 178 K/uL (130-400); RDW Standard Deviation 52.6 fL (36.4-46.3); Red Blood Count 3.83 M/uL (4.63-6.08); White Blood Count 9.78 K/ul (4.8-10.8)
[2022-06-07 07:55] LABS: BUN Creatinine Ratio 22.4 (10-20); Calcium 8.7 mg/dl (8.5-10.1); Creatinine Clr Calc Pharmacy 47.1 ml/min; Est GFR (African American) 59.6 ml/min; Est GFR (Non-African American) 51.4 ml/min; Magnesium 1.8 mg/dl (1.7-2.4); Potassium 3.2 mmol/L (3.5-5.1)
[2022-06-07] MEDS: LANTUS PER UNIT CHARGE SQ SCH ×2 (08:02→22:01)
[2022-06-07] MEDS: INSULIN ASPART PER UNIT SC SCH ×4 (08:02→22:04)
[2022-06-07] MEDS: ASPIRIN 81 MG ECTAB PO SCH (08:07)
[2022-06-07] MEDS: LOSARTAN POTASSIUM 50 MG TAB PO SCH (08:07)
[2022-06-07] MEDS: TAMSULOSIN HCL 0.4 MG CAP PO SCH (08:07)
[2022-06-07] MEDS: APIXABAN 2.5 MG TAB PO SCH ×2 (08:07→22:05)
[2022-06-07] MEDS: ATORVASTATIN 40 MG TAB PO SCH (08:07)
[2022-06-07] MEDS: FUROSEMIDE 40 MG/4 ML VIAL IV SCH (08:07)
[2022-06-07] MEDS: PANTOprazole 40 MG TAB PO SCH (08:08)
[2022-06-07] MEDS: amLODIPine BESYLATE 5 MG TAB PO SCH (08:08)
[2022-06-07] MEDS: METOPROLOL SUCC 50MG EXT REL TAB PO SCH (08:08)
[2022-06-07] MEDS: ISOSORBIDE MONO EXTENDED REL 60 MG TABCR PO SCH (08:08)
[2022-06-07] MEDS ORDERED: POTASSIUM CHLORIDE CRTAB 20 MEQ TABCR PO ONE (09:12)
[2022-06-07 09:31] LABS: Estimated Average Glucose 180 mg/dl; Hemoglobin A1C 7.9 % (4.5-5.6)
--- NOTE | 2022-06-07 10:58 | Cardiology Progress Note ---
Date of Service June 07, 2022 Assessment & Plan (1) Acute respiratory failure with hypoxia: (2) Acute on chronic heart failure: (3) Persistent atrial fibrillation: (4) S/P CABG x 2: (5) Pacemaker: Plan Patient is a complex 87-year-old male who presents with worsening respiratory distress hypoxia with fever and cough, with probable pneumonia on chest xray Continue IV antibiotics per hospitalist. Continue IV furosemide today. Hold AM dose 06/08 until labs reviewed and patient evaluated. Supplemental Potassium ordered today Echocardiogram similar to prior studies with mild reduction in LV systolic function EF 40-45% with changes consistent ischemic heart disease. Mixed valvular disease including mild to moderate aortic stenosis mild to moderate mitral sufficiency and moderate to severe tricuspid insufficiency. There is dilatation of the right ventricle and right atrial reflecting the elevated pulmonary pressures Case discussed with . will follow. Admission and Anticipated Discharge Date Admission Date: June 05, 2022 Supervising Physician Co-Signing Physician Notes Patient seen and examined with Catia Vasques PA-C. Agree with findings and assessment as above. Agree that a.m. diuretic should be held and we will reevaluate volume status clinically. Subjective Patient resting in bed comfortably. Ongoing cough reported. Denies chest pain. SOB improving. No edema. Tolerating meds. Review of Systems Review of Systems: All systems reviewed & are unremarkable except as noted in HPI & below Physical Exam Constitutional: no acute distress Eyes: PERRL, conjunctivae normal, anicteric sclerae ENMT: external ear and nose normal, oropharynx normal Neck: trachea midline, no thyromegaly Respiratory: Auscultation: + rhonchi and + wheezes Cardiovascular: Rate/Rhythm: regular rhythm (Ventricular paced) Heart Sounds: + murmur (Grade 2 over 6 systolic) Vessels: no JVD Extremities: no edema Chest (Breasts): Chest: normal inspection of chest and + pacemaker Gastrointestinal (Abdomen): normal bowel sounds, soft, nontender, no hepatosplenomegaly Skin: no rashes, warm and dry Neurologic: PERRL, EOMI, accommodation nl, no face palsy, no dysarthria Results & Data ([facility]) Vital Signs (Past 12 Hours) Vital Signs Temp Pulse Pulse Resp BP Pulse Ox O2 Del Method 06/07/22 07:33 62 06/07/22 07:28 36.9 C 61 18 124/71 91 Room Air 06/07/22 03:22 93 Room Air 06/07/22 03:00 37 C 71 20 142/72 H 91 Room Air 06/07/22 01:24 Nasal Cannula O2 Flow Rate 06/07/22 07:33 06/07/22 07:28 06/07/22 03:22 06/07/22 03:00 06/07/22 01:24 2 Laboratory Results CBC 06/07/22 Range/Units 06:41 WBC 9.78 (4.8-10.8) K/ul RBC 3.83 L (4.63-6.08) M/uL Hgb 11.4 L (14.0-18.0) g/dl Hct 34.3 L (40.1-51.0) % Plt Count 178 (130-400) K/uL Comprehensive Metabolic Panel 06/07/22 Range/Units 06:41 Sodium 138 (136-145) mmol/L Potassium 3.2 L (3.5-5.1) mmol/L Chloride 105 (98-107) mmol/L Carbon Dioxide 29 (21-32) mmol/L BUN 28 H (6-23) mg/dl Creatinine 1.25 (0.6-1.4) mg/dl Glucose 97 (70-99(Fasting)) mg/dl Calcium 8.7 (8.5-10.1) mg/dl Intake and Output 06/06/22 06/07/22 06/07/22 22:59 06:59 14:59 Intake Total 100 / 1000 320 / 1000 Balance 100 / 250 320 / 250 Intake: IV 200 / 300 metroNIDAZOLE 500 mg In 100 ml 200 / 300 @ 100 mls/hr IV Q8H [facility] Rx#: [id number] Oral 100 / 700 120 / 700 Other: Weight 94.3 kg Diagnostic Findings Telemetry reviewed: chronic [employer] in the 60s Medications Administered Current Inpatient Medications Acetaminophen (Acetaminophen 325 Mg Tab) 325 mg PO Q6 PRN PRN Reason: Pain Stop: 07/05/22 17:01 Amlodipine Besylate (Amlodipine Besylate 5 Mg Tab) 5 mg PO DAILY [facility] Stop: 07/06/22 08:59 Last Admin: 06/07/22 08:08 Dose: 5 mg Apixaban (Apixaban 2.5 Mg Tab) 2.5 mg PO BID [facility] Stop: 07/05/22 20:59 Last Admin: 06/07/22 08:07 Dose: 2.5 mg Aspirin (Aspirin 81 Mg Ectab) 81 mg PO DAILY [facility] Stop: 07/06/22 08:59 Last Admin: 06/07/22 08:07 Dose: 81 mg Atorvastatin Calcium (Atorvastatin 40 Mg Tab) 40 mg PO DAILY [facility] Stop: 07/06/22 08:59 Last Admin: 06/07/22 08:07 Dose: 40 mg Calcium Carbonate (Calcium Carbonate 500 Mg Chewable Tab) 500 mg PO TID PRN PRN Reason: Indigestion Stop: 07/05/22 17:17 Dextrose (Dextrose 50% 50 Ml Syringe) 25 - 50 ml IV UD PRN; Protocol PRN Reason: Hypoglycemia Protocol Stop: 07/05/22 18:44 Furosemide (Furosemide 40 Mg/4 Ml Vial) 40 mg IV Q24H [facility] Stop: 07/06/22 08:59 Last Admin: 06/07/22 08:07 Dose: 40 mg Glucagon (Glucagon For Inj 1 Mg Vial) 1 mg IM UD PRN; Protocol PRN Reason: Hypoglycemia Protocol Stop: 07/05/22 18:44 Glucose (Glucose 40% Gel 15 Gm Tube) 15 - 30 gm PO UD PRN; Protocol PRN Reason: Hypoglycemia Protocol Stop: 07/05/22 18:44 Glucose (Glucose 10 Tab/Tube) 4 - 8 tab PO UD PRN; Protocol PRN Reason: Hypoglycemia Protocol Stop: 07/05/22 18:44 Metronidazole (Flagyl) 500 mg in 100 mls @ 100 mls/hr IV Q8H [facility] Stop: 06/12/22 18:59 Last Infusion: 06/07/22 05:01 Dose: Infused Cefepime HCl 2,000 mg/ Syringe 20 mls @ 5 mls/min IV Q12H [facility]; Protocol Stop: 06/13/22 00:00 Insulin Aspart (Insulin Aspart Per Unit) 0 units SC ACHS [facility] Stop: 07/06/22 11:29 Last Admin: 06/07/22 08:02 Dose: 2 units Insulin Glargine (Lantus Per Unit Charge) 18 units SQ BID [facility] Stop: 07/05/22 20:59 Last Admin: 06/07/22 08:02 Dose: 18 units Isosorbide Mononitrate (Isosorbide [place] Extended Rel 60 Mg Tabcr) 60 mg PO D AILY [facility] Stop: 07/06/22 08:59 Last Admin: 06/07/22 08:08 Dose: 60 mg Losartan Potassium (Losartan Potassium 50 Mg Tab) 50 mg PO DAILY [facility] Stop: 07/06/22 08:59 Last Admin: 06/07/22 08:07 Dose: 50 mg Metoprolol Succinate (Metoprolol Succ 50mg Ext Rel Tab) 50 mg PO DAILY [facility] Stop: 07/06/22 08:59 Last Admin: 06/07/22 08:08 Dose: 50 mg Miscellaneous (Dutasteride 0.5 Mg -- Order Awaiting Action) 1 each N/A QS [facility] Stop: 07/06/22 00:00 Last Admin: 06/07/22 07:56 Dose: Not Given Miscellaneous (Carbohydrates For Hypoglycemia ) 15 - 30 gm PO UD PRN PRN Reason: Hypoglycemia Treatment Stop: 07/05/22 18:44 Nitroglycerin (Nitroglycerin Sl 0.4 Mg/Tab Tab) 0.4 mg SL Q5M PRN PRN Reason: Chest Pain Stop: 07/05/22 17:01 Pantoprazole Sodium (Pantoprazole 40 Mg Tab) 40 mg PO DAILY [facility] Stop: 07/06/22 08:59 Last Admin: 06/07/22 08:08 Dose: 40 mg Tamsulosin HCl (Tamsulosin Hcl 0.4 Mg Cap) 0.4 mg PO DAILY [facility] Stop: 07/06/22 08:59 Last Admin: 06/07/22 08:07 Dose: 0.4 mg
--- NOTE | 2022-06-07 17:56 | Hospitalist Progress Note ---
Date of Service June 07, 2022 Assessment & Plan (1) Acute respiratory failure with hypoxia: (2) Acute on chronic heart failure: (3) Aspiration pneumonia: (4) UTI (urinary tract infection): (5) PAF (paroxysmal atrial fibrillation): (6) CAD (coronary artery disease): (7) S/P CABG x 2: (8) DM type 2 (diabetes mellitus, type 2): (9) HTN (hypertension): (10) BPH (benign prostatic hyperplasia): Plan Acute Respiratory failure with Hypoxia Acute on chronic systolic heart failure Valvular heart disease Aspiration pneumonia -CXR:Questionable faint opacity in the right lower lung compatible with aspiration/pneumonia or atelectasis. -ECHO: Mild concentric LVH, mild to moderate global hypokinesis of left ventricle, apical wall motion abnormality may reflect pacemaker activation, focal hypokinesis of the apical inferior and posterior ray. EF 40 to 45%. Left atrium is moderately dilated. Right ventricle is moderately dilated. Right atrium is severely dilated. Aortic valve leaflets or moderately calcified. Mild to moderate valvular aortic stenosis. Mild to moderate mitral regurgitation. Moderate to severe tricuspid regurgitation. Right ventricular systolic pressure is moderately dilated at 40 to 50 mmHg. -Continue IV Lasix Monitor volume status, I's and O's, daily weight Appreciate cardiology input Continue antibiotics Speech therapy consulted Aspiration precautions Wean off of supplemental oxygen as able UTI: -was on catheter in the past -on daily methenamine--hold for now Urine culture growing Staphylococcus species Continue antibiotics as above CAD s/p CABG Afib on Eliquis SSS S/P pacemaker Continue aspirin and eliquis Continue Isosorbide, metoprolol, statin DM II: Continue ISS, Lantus Monitor BGs BPH H/O urinary retention: continue Tamsulosin, Dutasteride HTN/HLD/GERD: -continue home meds Chronic anemia: -Hb at baseline DVT Px: Eliquis Code Status: DNR/DNI Disposition PT OT prior to discharge Admission and Anticipated Discharge Date Admission Date: June 05, 2022 Subjective Patient is seen and examined at bedside Less cough today States dyspnea same as yesterday No new complaints Denies any chest pain, dizziness, nausea, vomiting Saturating low 90s on room air Review of Systems Review of Systems: All systems reviewed & are unremarkable except as noted in Subjective Physical Exam Physical Exam: Physical Exam: Vitals signs as noted above General Appearance:Moderately built and nourished, no apparent distress Head: normocephalic, Atraumatic Eyes: normal inspection, EOMI Neck: supple, Trachea midline Respiratory/Chest: Coarse breath sounds, +Rhonchi, No accessory muscle use Cardiovascular: S1, S2, + murmur Abdomen/GI:Soft, Non tender, Bowel sounds present Extremities/Musculoskeletal:normal inspection, Trace edema Neurologic/Psych:AAOX3, grossly no focal neurological deficits, +Decreased hearing Skin: normal color, warm Results & Data Results & Data ([facility]) Vital Signs (Past 12 Hours) Vital Signs Temp Pulse Pulse Resp BP BP Pulse Ox 06/07/22 16:58 65 06/07/22 14:41 36.8 C 65 20 119/71 91 06/07/22 11:53 06/07/22 11:03 36.4 C L 60 20 100/63 94 06/07/22 07:33 62 06/07/22 07:28 36.9 C 61 18 124/71 91 O2 Del Method 06/07/22 16:58 06/07/22 14:41 Room Air 06/07/22 11:53 Room Air 06/07/22 11:03 Room Air 06/07/22 07:33 06/07/22 07:28 Room Air Laboratory Results Short CBC 06/07/22 Range/Units 06:41 WBC 9.78 (4.8-10.8) K/ul Hgb 11.4 L (14.0-18.0) g/dl Hct 34.3 L (40.1-51.0) % Plt Count 178 (130-400) K/uL BMP 06/07/22 06:41 Sodium 138 Potassium 3.2 L Chloride 105 Carbon Dioxide 29 BUN 28 H Creatinine 1.25 Glucose 97 Calcium 8.7
[2022-06-08] MEDS: metroNIDAZOLE 500 MG/100 ML BAG IV SCH ×3 (02:31→18:21)
[2022-06-08 06:55] LABS: Hematocrit (blood only) 33.9 % (40.1-51.0); Hemoglobin 11.1 g/dl (14.0-18.0); Mean Corpuscular Hemoglobin 29.8 pg (25.0-34.0); Mean Corpuscular Hgb Conc 32.7 g/dL (32.0-36.0); Mean Corpuscular Volume 90.9 fL (80.0-100.0); Mean Platelet Volume 10.1 fL (9.4-12.4); Platelet Count 183 K/uL (130-400); RDW Coefficient of Variation 15.9 % (11.5-14.5); RDW Standard Deviation 53.4 fL (36.4-46.3); Red Blood Count 3.73 M/uL (4.63-6.08); White Blood Count 9.99 K/ul (4.8-10.8)
[2022-06-08 07:38] LABS: Calcium 8.5 mg/dl (8.5-10.1); Creatinine Clr Calc Pharmacy 50.7 ml/min; Est GFR (African American) 65.3 ml/min; Est GFR (Non-African American) 56.3 ml/min; Magnesium 1.9 mg/dl (1.7-2.4); Potassium 3.4 mmol/L (3.5-5.1)
[2022-06-08] MEDS: CEFEPIME 2,000 MG in SYRINGE 0 ML IV SCH ×2 (08:46→19:28)
[2022-06-08] MEDS: INSULIN ASPART PER UNIT SC SCH ×4 (08:46→21:59)
[2022-06-08] MEDS: LANTUS PER UNIT CHARGE SQ SCH ×2 (08:47→21:58)
[2022-06-08] MEDS: ATORVASTATIN 40 MG TAB PO SCH (09:00)
[2022-06-08] MEDS: METOPROLOL SUCC 50MG EXT REL TAB PO SCH (09:00)
[2022-06-08] MEDS ORDERED: POTASSIUM CHLORIDE CRTAB 20 MEQ TABCR PO ONE (09:00)
[2022-06-08] MEDS: APIXABAN 2.5 MG TAB PO SCH ×2 (09:00→21:59)
[2022-06-08] MEDS: PANTOprazole 40 MG TAB PO SCH (09:00)
[2022-06-08] MEDS: ASPIRIN 81 MG ECTAB PO SCH (09:00)
[2022-06-08] MEDS: LOSARTAN POTASSIUM 50 MG TAB PO SCH (09:00)
[2022-06-08] MEDS: ISOSORBIDE MONO EXTENDED REL 60 MG TABCR PO SCH (09:00)
[2022-06-08] MEDS: TAMSULOSIN HCL 0.4 MG CAP PO SCH (09:00)
[2022-06-08] MEDS: amLODIPine BESYLATE 5 MG TAB PO SCH (09:00)
--- NOTE | 2022-06-08 11:23 | Cardiology Progress Note ---
Date of Service June 08, 2022 Assessment & Plan (1) Acute respiratory failure with hypoxia: (2) Acute on chronic heart failure: (3) Persistent atrial fibrillation: (4) S/P CABG x 2: (5) Pacemaker: Plan Patient is a complex 87-year-old male who presents with worsening respiratory distress hypoxia with fever and cough, with probable pneumonia on chest xray Continue IV antibiotics per hospitalist. Volume status improved with several doses of IV furosemide. Appears euvolemic. Resume oral furosemide 40 mg daily with potassium 20 meq daily. Echocardiogram similar to prior studies with mild reduction in LV systolic function EF 40-45% with changes consistent ischemic heart disease. Mixed valvular disease including mild to moderate aortic stenosis mild to moderate mitral sufficiency and moderate to severe tricuspid insufficiency. There is dilatation of the right ventricle and right atrial reflecting the elevated pulmonary pressures He should continue all other cardiac medications including Eliquis (low dose prescribed by PCP), amlodipine, ASA, statin, metoprolol and losartan. Patient will need 2-4 week hospital f/u and pacemaker interrogation in our office at [facility]. Scheduling will call upon discharge. Cardio to sign off. 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 Valdez. Admission and Anticipated Discharge Date Admission Date: June 05, 2022 Supervising Physician Co-Signing Physician Notes Patient seen and examined with Catia Vasques PA-C. Agree with findings and assessment as above. Agree that Oral diuretic should be resumed along with potassium supplementation. Follow up as an outpatient as scheduled. Subjective Patient resting in bed comfortably. Cough improving. No SOB reported. No chest pain. edema resolved. No fevers or chills. no dizziness. Review of Systems Review of Systems: All systems reviewed & are unremarkable except as noted in HPI & below Physical Exam Constitutional: no acute distress Eyes: PERRL, conjunctivae normal, anicteric sclerae ENMT: external ear and nose normal, oropharynx normal Neck: trachea midline, no thyromegaly Respiratory: Auscultation: + rhonchi and + wheezes Cardiovascular: Rate/Rhythm: regular rhythm (Ventricular paced) Heart Sounds: + murmur (Grade 2 over 6 systolic) Vessels: no JVD Extremities: no edema Chest (Breasts): Chest: normal inspection of chest and + pacemaker Gastrointestinal (Abdomen): normal bowel sounds, soft, nontender, no hepatosplenomegaly Skin: no rashes, warm and dry Neurologic: PERRL, EOMI, accommodation nl, no face palsy, no dysarthria Results & Data ([facility]) Vital Signs (Past 12 Hours) Vital Signs Temp Pulse Pulse Resp BP BP Pulse Ox 06/08/22 10:58 06/08/22 10:44 36.4 C L 79 20 135/68 93 06/08/22 07:26 36.6 C 60 20 126/73 90 06/08/22 07:06 62 06/08/22 04:00 36.9 C 60 22 116/67 94 06/08/22 00:49 O2 Del Method O2 Flow Rate 06/08/22 10:58 Room Air 06/08/22 10:44 Room Air 06/08/22 07:26 Room Air 06/08/22 07:06 06/08/22 04:00 Nasal Cannula 2 06/08/22 00:49 Room Air, Nasal Cannula 2 (1) Acute on chronic heart failure Heart failure type: systolic Qualified Code(s): I50.23 - Acute on chronic systolic (congestive) heart failure
[2022-06-08] MEDS: DAPTOmycin 325 MG in SYRINGE 0 ML IV SCH (11:36)
--- NOTE | 2022-06-08 17:27 | Hospitalist Progress Note ---
Date of Service June 08, 2022 Assessment & Plan (1) Acute respiratory failure with hypoxia: (2) Acute on chronic heart failure: (3) Aspiration pneumonia: (4) UTI (urinary tract infection): (5) PAF (paroxysmal atrial fibrillation): (6) CAD (coronary artery disease): (7) S/P CABG x 2: (8) DM type 2 (diabetes mellitus, type 2): (9) HTN (hypertension): (10) BPH (benign prostatic hyperplasia): Plan Acute Respiratory failure with Hypoxia Acute on chronic systolic heart failure Valvular heart disease Aspiration pneumonia -CXR:Questionable faint opacity in the right lower lung compatible with aspiration/pneumonia or atelectasis. -ECHO: Mild concentric LVH, mild to moderate global hypokinesis of left ventricle, apical wall motion abnormality may reflect pacemaker activation, focal hypokinesis of the apical inferior and posterior ray. EF 40 to 45%. Left atrium is moderately dilated. Right ventricle is moderately dilated. Right atrium is severely dilated. Aortic valve leaflets or moderately calcified. Mild to moderate valvular aortic stenosis. Mild to moderate mitral regurgitation. Moderate to severe tricuspid regurgitation. Right ventricular systolic pressure is moderately dilated at 40 to 50 mmHg. -Monitor volume status, I's and O's, daily weight Appreciate cardiology input Continue antibiotics Speech therapy consulted Aspiration precautions Wean off of supplemental oxygen as able Transition IV lasix to PO tomorrow UTI: -was on catheter in the past -on daily methenamine--hold for now Urine culture growing Staphylococcus Added Daptomycin based on sensitivities CAD s/p CABG Afib on Eliquis SSS S/P pacemaker Continue aspirin and eliquis Continue Isosorbide, metoprolol, statin DM II: Continue ISS, Lantus Monitor BGs BPH H/O urinary retention: continue Tamsulosin, Dutasteride HTN/HLD/GERD: -continue home meds Chronic anemia: -Hb at baseline DVT Px: Eliquis Code Status: DNR/DNI Disposition PT OT prior to discharge Admission and Anticipated Discharge Date Admission Date: June 05, 2022 Subjective Patient is seen and examined at bedside No new complaints Cough, dyspnea improving Denies any chest pain, dizziness, nausea, vomiting Saturating well on room air Review of Systems Review of Systems: All systems reviewed & are unremarkable except as noted in Subjective Physical Exam Physical Exam: Physical Exam: Vitals signs as noted above General Appearance:Moderately built and nourished, no apparent distress Head: normocephalic, Atraumatic Eyes: normal inspection, EOMI Neck: supple, Trachea midline Respiratory/Chest: Coarse breath sounds, +Rhonchi, No accessory muscle use Cardiovascular: S1, S2, + murmur Abdomen/GI:Soft, Non tender, Bowel sounds present Extremities/Musculoskeletal:normal inspection, Trace edema Neurologic/Psych:AAOX3, grossly no focal neurological deficits, +Decreased hearing Skin: normal color, warm Results & Data Results & Data ([facility]) Vital Signs (Past 12 Hours) Vital Signs Temp Pulse Pulse Resp BP Pulse Ox O2 Del Method 06/08/22 15:28 36.0 C L 63 20 134/74 94 Room Air 06/08/22 15:21 66 06/08/22 10:58 Room Air 06/08/22 10:44 36.4 C L 79 20 135/68 93 Room Air 06/08/22 07:26 36.6 C 60 20 126/73 90 Room Air 06/08/22 07:06 62 Laboratory Results Short CBC 06/08/22 Range/Units 06:32 WBC 9.99 (4.8-10.8) K/ul Hgb 11.1 L (14.0-18.0) g/dl Hct 33.9 L (40.1-51.0) % Plt Count 183 (130-400) K/uL BMP 06/08/22 06:32 Sodium 140 Potassium 3.4 L Chloride 108 H Carbon Dioxide 25 BUN 29 H Creatinine 1.16 Glucose 75 Calcium 8.5 (1) Acute on chronic heart failure Heart failure type: systolic Qualified Code(s): I50.23 - Acute on chronic systolic (congestive) heart failure
[2022-06-09] MEDS: metroNIDAZOLE 500 MG/100 ML BAG IV SCH ×3 (03:46→18:14)
[2022-06-09] MEDS: INSULIN ASPART PER UNIT SC SCH ×4 (09:04→20:29)
[2022-06-09] MEDS: CEFEPIME 2,000 MG in SYRINGE 0 ML IV SCH ×2 (09:08→20:28)
[2022-06-09] MEDS: ASPIRIN 81 MG ECTAB PO SCH (09:09)
[2022-06-09] MEDS: amLODIPine BESYLATE 5 MG TAB PO SCH (09:09)
[2022-06-09] MEDS: APIXABAN 2.5 MG TAB PO SCH ×2 (09:09→20:29)
[2022-06-09] MEDS: FUROSEMIDE 40 MG TAB PO SCH (09:10)
[2022-06-09] MEDS: LANTUS PER UNIT CHARGE SQ SCH ×2 (09:10→20:29)
[2022-06-09] MEDS: ISOSORBIDE MONO EXTENDED REL 60 MG TABCR PO SCH (09:10)
[2022-06-09] MEDS: LOSARTAN POTASSIUM 50 MG TAB PO SCH (09:11)
[2022-06-09] MEDS: METOPROLOL SUCC 50MG EXT REL TAB PO SCH (09:11)
[2022-06-09] MEDS: TAMSULOSIN HCL 0.4 MG CAP PO SCH (09:11)
[2022-06-09] MEDS: PANTOprazole 40 MG TAB PO SCH (09:11)
[2022-06-09 11:05] LABS: BUN Creatinine Ratio 26.1 (10-20); Calcium 9.1 mg/dl (8.5-10.1); Creatinine Clr Calc Pharmacy 49.4 ml/min; Est GFR (African American) 63.3 ml/min; Est GFR (Non-African American) 54.6 ml/min; Potassium 3.9 mmol/L (3.5-5.1)
[2022-06-09] MEDS: DAPTOmycin 325 MG in SYRINGE 0 ML IV SCH (12:22)
--- NOTE | 2022-06-09 15:07 | Hospitalist Progress Note ---
Date of Service June 09, 2022 Assessment & Plan (1) Acute respiratory failure with hypoxia: (2) Acute on chronic heart failure: (3) Aspiration pneumonia: (4) UTI (urinary tract infection): (5) PAF (paroxysmal atrial fibrillation): (6) CAD (coronary artery disease): (7) S/P CABG x 2: (8) DM type 2 (diabetes mellitus, type 2): (9) HTN (hypertension): (10) BPH (benign prostatic hyperplasia): Plan Acute Respiratory failure with Hypoxia Acute on chronic systolic heart failure Valvular heart disease Aspiration pneumonia -CXR:Questionable faint opacity in the right lower lung compatible with aspiration/pneumonia or atelectasis. -ECHO: Mild concentric LVH, mild to moderate global hypokinesis of left ventricle, apical wall motion abnormality may reflect pacemaker activation, focal hypokinesis of the apical inferior and posterior ray. EF 40 to 45%. Left atrium is moderately dilated. Right ventricle is moderately dilated. Right atrium is severely dilated. Aortic valve leaflets or moderately calcified. Mild to moderate valvular aortic stenosis. Mild to moderate mitral regurgitation. Moderate to severe tricuspid regurgitation. Right ventricular systolic pressure is moderately dilated at 40 to 50 mmHg. -Monitor volume status, I's and O's, daily weight Appreciate cardiology input Continue antibiotics Speech therapy consulted Aspiration precautions Wean off of supplemental oxygen as able IV lasix >>PO lasix Will need 2 step prior to discharge Likely discharge tomorrow UTI: -was on catheter in the past -on daily methenamine--hold for now Urine culture growing Staphylococcus Added Daptomycin based on sensitivities CAD s/p CABG Afib on Eliquis SSS S/P pacemaker Continue aspirin and eliquis Continue Isosorbide, metoprolol, statin DM II: Continue ISS, Lantus Monitor BGs BPH H/O urinary retention: continue Tamsulosin, Dutasteride HTN/HLD/GERD: -continue home meds Chronic anemia: -Hb at baseline DVT Px: Eliquis Code Status: DNR/DNI Disposition PT OT prior to discharge Admission and Anticipated Discharge Date Admission Date: June 05, 2022 Subjective Patient is seen and examined at bedside Doing well today Denies any significant Cough, dyspnea Denies any chest pain, dizziness, nausea, vomiting Saturating low 90s on room air Review of Systems Review of Systems: All systems reviewed & are unremarkable except as noted in Subjective Physical Exam Physical Exam: Physical Exam: Vitals signs as noted above General Appearance:Moderately built and nourished, no apparent distress Head: normocephalic, Atraumatic Eyes: normal inspection, EOMI Neck: supple, Trachea midline Respiratory/Chest: Coarse breath sounds, +Rhonchi, No accessory muscle use Cardiovascular: S1, S2, + murmur Abdomen/GI:Soft, Non tender, Bowel sounds present Extremities/Musculoskeletal:normal inspection, Trace edema Neurologic/Psych:AAOX3, grossly no focal neurological deficits, +Decreased hearing Skin: normal color, warm Results & Data Results & Data ([facility]) Vital Signs (Past 12 Hours) Vital Signs Temp Pulse Pulse Resp BP BP Pulse Ox 06/09/22 12:07 36.4 C L 62 19 135/70 92 06/09/22 08:58 06/09/22 08:05 36.9 C 61 19 136/70 93 06/09/22 07:39 73 06/09/22 03:57 36.6 C 68 115/61 96 O2 Del Method O2 Flow Rate 06/09/22 12:07 Room Air 06/09/22 08:58 Room Air, Nasal Cannula 2 06/09/22 08:05 Nasal Cannula 2 06/09/22 07:39 06/09/22 03:57 Nasal Cannula 2 Laboratory Results BMP 06/09/22 08:00 Sodium 140 Potassium 3.9 Chloride 110 H Carbon Dioxide 23 BUN 31 H Creatinine 1.19 Glucose 78 Calcium 9.1 (1) Acute on chronic heart failure Heart failure type: systolic Qualified Code(s): I50.23 - Acute on chronic systolic (congestive) heart failure
[2022-06-10] MEDS: metroNIDAZOLE 500 MG/100 ML BAG IV SCH ×2 (02:34→11:18)
[2022-06-10] MEDS: INSULIN ASPART PER UNIT SC SCH ×2 (08:49→12:24)
[2022-06-10] MEDS: CEFEPIME 2,000 MG in SYRINGE 0 ML IV SCH (08:52)
[2022-06-10] MEDS: LANTUS PER UNIT CHARGE SQ SCH (08:53)
[2022-06-10] MEDS: amLODIPine BESYLATE 5 MG TAB PO SCH (08:59)
[2022-06-10] MEDS: APIXABAN 2.5 MG TAB PO SCH (08:59)
[2022-06-10] MEDS: FUROSEMIDE 40 MG TAB PO SCH (09:00)
[2022-06-10] MEDS: ASPIRIN 81 MG ECTAB PO SCH (09:00)
[2022-06-10] MEDS: LOSARTAN POTASSIUM 50 MG TAB PO SCH (09:00)
[2022-06-10] MEDS: METOPROLOL SUCC 50MG EXT REL TAB PO SCH (09:00)
[2022-06-10] MEDS: ISOSORBIDE MONO EXTENDED REL 60 MG TABCR PO SCH (09:00)
[2022-06-10] MEDS: PANTOprazole 40 MG TAB PO SCH (09:01)
[2022-06-10] MEDS: TAMSULOSIN HCL 0.4 MG CAP PO SCH (09:01)
[2022-06-10 09:32] LABS: BUN Creatinine Ratio 26.4 (10-20); Calcium 8.4 mg/dl (8.5-10.1); Creatinine Clr Calc Pharmacy 55.5 ml/min; Est GFR (African American) 72.8 ml/min; Est GFR (Non-African American) 62.8 ml/min; Magnesium 1.8 mg/dl (1.7-2.4); Potassium 3.6 mmol/L (3.5-5.1)
--- NOTE | 2022-06-10 10:41 | Hospitalist Progress Note ---
Date of Service June 10, 2022 Assessment & Plan (1) Acute respiratory failure with hypoxia: (2) Acute on chronic heart failure: (3) Aspiration pneumonia: (4) UTI (urinary tract infection): (5) PAF (paroxysmal atrial fibrillation): (6) CAD (coronary artery disease): (7) S/P CABG x 2: (8) DM type 2 (diabetes mellitus, type 2): (9) HTN (hypertension): (10) BPH (benign prostatic hyperplasia): Plan Acute Respiratory failure with Hypoxia Acute on chronic systolic heart failure Valvular heart disease Aspiration pneumonia -CXR:Questionable faint opacity in the right lower lung compatible with aspiration/pneumonia or atelectasis. -ECHO: Mild concentric LVH, mild to moderate global hypokinesis of left ventricle, apical wall motion abnormality may reflect pacemaker activation, focal hypokinesis of the apical inferior and posterior ray. EF 40 to 45%. Left atrium is moderately dilated. Right ventricle is moderately dilated. Right atrium is severely dilated. Aortic valve leaflets or moderately calcified. Mild to moderate valvular aortic stenosis. Mild to moderate mitral regurgitation. Moderate to severe tricuspid regurgitation. Right ventricular systolic pressure is moderately dilated at 40 to 50 mmHg. -Monitor volume status, I's and O's, daily weight Appreciate cardiology input Continue antibiotics Speech therapy consulted Aspiration precautions Wean off of supplemental oxygen as able IV lasix >>PO lasix 2 step: Did not qualify for oxygen Plan to discharge today UTI: -was on catheter in the past -on daily methenamine--hold for now Urine culture growing Staphylococcus Received Daptomycin for 3 days CAD s/p CABG Afib on Eliquis SSS S/P pacemaker Continue aspirin and eliquis Continue Isosorbide, metoprolol, statin DM II: Continue ISS, Lantus Monitor BGs BPH H/O urinary retention: continue Tamsulosin, Dutasteride HTN/HLD/GERD: -continue home meds Chronic anemia: -Hb at baseline DVT Px: Eliquis Code Status: DNR/DNI Disposition [facility] Admission and Anticipated Discharge Date Admission Date: June 05, 2022 Subjective Patient is seen and examined at bedside Offers no new complaints Denies any Cough, dyspnea Also denies any chest pain, dizziness, nausea, vomiting Had 2 step earlier today Review of Systems Review of Systems: All systems reviewed & are unremarkable except as noted in Subjective Physical Exam Physical Exam: Physical Exam: Vitals signs as noted above General Appearance:Moderately built and nourished, no apparent distress Head: normocephalic, Atraumatic Eyes: normal inspection, EOMI Neck: supple, Trachea midline Respiratory/Chest: Coarse breath sounds, No accessory muscle use Cardiovascular: S1, S2, + murmur Abdomen/GI:Soft, Non tender, Bowel sounds present Extremities/Musculoskeletal:normal inspection, Trace edema Neurologic/Psych:AAOX3, grossly no focal neurological deficits, +Decreased hearing Skin: normal color, warm Results & Data Results & Data ([facility]) Vital Signs (Past 12 Hours) Vital Signs Temp Pulse Resp BP Pulse Ox O2 Del Method 06/10/22 07:47 36.8 C 63 18 144/77 H 93 Room Air 06/10/22 04:00 36.4 C L 58 L 20 167/85 H 93 Room Air Laboratory Results [facility] 06/09/22 06/10/22 08:00 07:50 Sodium 140 140 Potassium 3.9 3.6 Chloride 110 H 109 H Carbon Dioxide 23 24 BUN 31 H 28 H Creatinine 1.19 1.06 Glucose 78 66 L Calcium 9.1 8.4 L (1) Acute on chronic heart failure Heart failure type: systolic Qualified Code(s): I50.23 - Acute on chronic systolic (congestive) heart failure
[2022-06-10] MEDS: DAPTOmycin 325 MG in SYRINGE 0 ML IV SCH (11:15)
--- NOTE | 2022-06-10 12:46 | Discharge Summary ---
Date of Service June 10, 2022 Admission HPI Per Admitting Provider Pt is a 87 y/o M with hx of IDDM, HFpEF, CAD s/p CABG, Afib on eliquis, hx of chronic dwelling catheter (off the catheter now with recurrent UTI), Urinary incontinence, dementia, SSS s/p pacemaker, HTN, HLD came into the ER from [facility] with fever and worsening shortness of breath. Per daughter (who is a [employer] [employer]): pt was in the ER 2 weeks ago received IV Lasix for fluid overload. Last few days pt has been having cough and SOB. Per daughter pts catheter was removed recently by urology. At bedside: pt denied any CP, SOB, Abd pain, N/V or dizziness Admission Exam Per Admitting Provider Physical Exam Physical Exam: General:.NAD, well developed, well nourished HEENT:.NC in place,Normocephalic and atraumatic, Normal Conjunctiva, EOMI, Sclera is non-icteric Lungs:.b/l lower lobe crackles,No wheezing Heart:.systolic murmur,Normal S1, S2 Abdominal:.ND, Soft, NT MSK:trace b/l LE pitting edema Psych:.AAOx2, normal affect Principal Diagnosis Acute Respiratory failure with Hypoxia Acute on chronic systolic heart failure Valvular heart disease Aspiration pneumonia Urinary tract infection Discharge Data Allergies Allergy/AdvReac Type Severity Reaction Status Date / Time shellfish derived Allergy Severe anaphylaxis Verified 06/05/22 16:36 clopidogrel Allergy Intermediate INTERNAL Verified 06/05/22 16:36 HIVES Penicillins Allergy Intermediate HIVES Verified 06/05/22 16:36 Consultations 06/05/22 15:55 ED Decision to Admit Stat 06/05/22 18:45 Consult Cardiology Routine Procedures Performed [facility] 06/10/22 07:50 Sodium 140 Potassium 3.6 Chloride 109 H Carbon Dioxide 24 BUN 28 H Creatinine 1.06 Glucose 66 L Calcium 8.4 L Hospital Course (1) Acute respiratory failure with hypoxia: (2) Acute on chronic heart failure: (3) Aspiration pneumonia: (4) UTI (urinary tract infection): (5) PAF (paroxysmal atrial fibrillation): (6) CAD (coronary artery disease): (7) S/P CABG x 2: (8) DM type 2 (diabetes mellitus, type 2): (9) HTN (hypertension): (10) BPH (benign prostatic hyperplasia): Plan Acute Respiratory failure with Hypoxia Acute on chronic systolic heart failure Valvular heart disease Aspiration pneumonia -CXR:Questionable faint opacity in the right lower lung compatible with aspiration/pneumonia or atelectasis. -ECHO: Mild concentric LVH, mild to moderate global hypokinesis of left ventricle, apical wall motion abnormality may reflect pacemaker activation, focal hypokinesis of the apical inferior and posterior ray. EF 40 to 45%. Left atrium is moderately dilated. Right ventricle is moderately dilated. Right atrium is severely dilated. Aortic valve leaflets or moderately calcified. Mild to moderate valvular aortic stenosis. Mild to moderate mitral regurgitation. Moderate to severe tricuspid regurgitation. Right ventricular systolic pressure is moderately dilated at 40 to 50 mmHg. -Monitor volume status, I's and O's, daily weight Appreciate cardiology input Continue antibiotics Speech therapy consulted Aspiration precautions Wean off of supplemental oxygen as able IV lasix >>PO lasix 2 step: Did not qualify for oxygen Plan to discharge today UTI: -was on catheter in the past -on daily methenamine--hold for now Urine culture growing Staphylococcus Received Daptomycin for 3 days CAD s/p CABG Afib on Eliquis SSS S/P pacemaker Continue aspirin and eliquis Continue Isosorbide, metoprolol, statin DM II: Continue ISS, Lantus Monitor BGs BPH H/O urinary retention: continue Tamsulosin, Dutasteride HTN/HLD/GERD: -continue home meds Chronic anemia: -Hb at baseline DVT Px: Eliquis Code Status: DNR/DNI Disposition [facility] Total Time Total Time Spent Total Time Spent (In Minutes): 54 minutes Discharge Plan Discharge Items Patient Disposition: Personal [facility] Reason For Visit: PNEUMONIA Discharge Diagnosis: Acute Respiratory failure with Hypoxia Acute on chronic systolic heart failure Valvular heart disease Aspiration pneumonia Urinary tract infection Condition on Discharge: Fair Activity: Per Instructions section Exercise/Sports: Gradually increase as tolerated Non-emergency contact: Primary Care Provider and Ict Help Desk Technician Call non-emergency contact if: you have any medication questions, your symptoms worsen, your pain is concerning for you and you have a fever Follow-up/Referrals: [facility] BOBBY LUTZ [Primary Care Provider] - Diet: Carb Consistent or DM2 and Heart Healthy Addtl Attending Provider Instructions: Follow-up with your primary care physician in 1 week Follow-up with your dredgemaster in 2-4 weeks for follow up and pacemaker Interrogation --- Complete antibiotic course for pneumonia and urinary tract infection as prescribed. --HOLD Taking Methenamine Hippurate until you complete the antibiotic course (Cefdinir, Flagyl and Nitrofurantoin). Can resume after completing the antibiotic course. Seek immediate medical attention if your symptoms reoccur or worsen Please take all medications as instructed on discharge list below. Please call if you have any questions or problems. You can reach a [facility] hospitalist on duty at [facility] 24 hours a day by calling [phone] Pending Studies at Discharge: No Stand-Alone Forms: My [facility] [employer], Smoking Cessation Skilled Items Patient informed of condition?: Yes DNR: Yes Discharge Level of Care: Other Communicable Disease: No Discharge Prognosis: Stable Lines: None Urinary Catheter: No Medications and DC Order Prescriptions: New nitrofurantoin monohyd/m-cryst 100 mg capsule 100 mg PO BID 3 Days Qty: 6 0RF Rx Instructions: must administer with a meal/food cefdinir 300 mg capsule 300 mg PO BID 4 Days Qty: 8 0RF metronidazole 500 mg tablet 500 mg PO BID Qty: 8 0RF Continued methenamine hippurate 1 gram tablet 1 g PO DAILY Qty: 90 3RF losartan 50 mg Tablet 50 mg PO DAILY furosemide [Lasix] 40 mg Tablet 40 mg PO DAILY atorvastatin 40 mg Tablet 40 mg PO DAILY acetaminophen [Tylenol] 325 mg Tablet 650 mg PO Q6 PRN (Reason: Pain) metoprolol succinate 50 mg Tablet Extended Release 24 Hr 50 mg PO DAILY calcium carbonate [Tums E-X] 300 mg (750 mg) Tablet,Chewable 600 mg PO TID PRN (Reason: Indigestion) amlodipine 5 mg Tablet 5 mg PO DAILY aspirin [Aspir-Low] 81 mg Tablet,Delayed Release (Dr/Ec) 81 mg PO DAILY isosorbide mononitrate 60 mg Tablet Extended Release 24 Hr 60 mg PO DAILY tamsulosin 0.4 mg Capsule 0.4 mg PO DAILY pantoprazole 40 mg Tablet,Delayed Release (Dr/Ec) 40 mg PO DAILY nitroglycerin [Nitrostat] 0.4 mg Tablet, Sublingual 0.4 mg sublingual DIRECTED PRN (Reason: Chest Pain) dutasteride 0.5 mg Capsule 0.5 mg PO DAILY insulin aspart U-100 [Novolog FlexPen U-100 Insulin] 100 unit/mL (3 mL) Insulin Pen 5 unit SUBCUT TID insulin glargine [Lantus Solostar U-100 Insulin] 100 unit/mL (3 mL) Insulin Pen 18 unit SUBCUT BID Eliquis 2.5 mg Tablet 2.5 mg PO BID Discharge Orders: Discharge Order (Routine); Ordered 06/10/22 Ordered By: Yogesh Khan/Other Patient Handouts: Managing Type 2 Diabetes Admission Data Admit Date/Time: 06/05/22 16:56 Attending Provider: Yogesh Ring Admit Provider: Lalitha Chong Primary Care Provider: [facility] B[facility] LUTZ Other Providers: Lalitha Chong ; Gadiel Fairbanks
== END 2022-06-10 15:37 | disposition home or self-care (01) | DRG 177 ==
LOC: ED 13:20 → 2W 16:56 → SUATTDRO 16:56 → 2W 18:20
DX: D64.9 Anemia, unspecified; F03.90 Unspecified dementia, unspecified severity, without behavioral disturbance, psychotic disturbance, mood disturbance, and anxiety; Z91.013 Allergy to seafood; Z79.01 Long term (current) use of anticoagulants; I25.2 Old myocardial infarction; I50.23 Acute on chronic systolic (congestive) heart failure; Z79.4 Long term (current) use of insulin; Z95.5 Presence of coronary angioplasty implant and graft; E78.5 Hyperlipidemia, unspecified; I48.19 Other persistent atrial fibrillation; N39.0 Urinary tract infection, site not specified; Z66 Do not resuscitate; J96.01 Acute respiratory failure with hypoxia; J69.0 Pneumonitis due to inhalation of food and vomit; Z79.899 Other long term (current) drug therapy; I08.3 Combined rheumatic disorders of mitral, aortic and tricuspid valves; Z87.891 Personal history of nicotine dependence; Z88.0 Allergy status to penicillin; I25.9 Chronic ischemic heart disease, unspecified; Z79.82 Long term (current) use of aspirin; N40.0 Benign prostatic hyperplasia without lower urinary tract symptoms; Z88.8 Allergy status to other drugs, medicaments and biological substances; Z95.1 Presence of aortocoronary bypass graft; I11.0 Hypertensive heart disease with heart failure; I49.5 Sick sinus syndrome

== ENCOUNTER 2022-06-11 16:48 | Inpatient (IN) ==
--- NOTE | 2022-06-11 17:06 | Emergency Department Note ---
Impression & Plan Acute dyspnea, Generalized weakness, Pneumonia ED Provider Note INFORMANT: Patient and daughter ED PROVIDER(S): Nicola Xiao MD CHIEF COMPLAINT: Weakness and confusion PLAN: Disposition: Admitted Condition: Good Outpatient prescription management: None Referral: None MEDICAL DECISION MAKING: Patient presented because of confusion and weakness. I did discuss his prese ntation with his daughter who is one of our ER nurses. She was concerned about his change in mental status. He does have baseline dementia. He had a work-up performed. He had pulmonary congestion noted on chest x-ray. He did not have a fever. He was given relatively well on supplemental oxygen maintaining saturations. The patient was found to have a significant jump in his white blood cell count to 18,000. He was given broad-spectrum antibiotics of cefepime and vancomycin after discussion with ED pharmacist and culture and prior record review. The patient had a urinalysis ordered but this is pending. His chemistries were unremarkable. Patient is not anemic. Consultation was made with the [facility] service. Patient was evaluated in the ER and admitted for further management. Patient's lactate was mildly elevated. His blood pressure is good and he does have vascular congestion, prior issues with CHF, and does have some peripheral edema. Aggressive fluid management was held. Repeat lactate was checked and was 1.8. His respiratory status may be affecting his initial lactate. After review of the information above and other included data, I feel the patient requires management in the hospital. Triage Nursing notes reviewed and agree them. Vital Signs: reviewed and remarkable for no significant abnormalities Prior /Outside records reviewed: Prior hospitalization and culture results reviewed. Differential diagnosis: Infection, hypoglycemia, electrolyte abnormalities, overdose, toxicologic, cardiac sources, intracerebral event, neurologic, trauma, as well as other pathologies. Diagnostics, as interpreted by me: ECG: Twelve-lead ECG reveals a paced rhythm with PVCs at [address] elevation. Cardiac Monitoring: Cardiac monitoring ordered by me: The patient was placed on continuous cardiac monitoring and observed. It revealed a paced rhythm at 75 bpm without evidence of dysrhythmia. Medical decision rules: none Imaging studies: Chest x-ray as noted above. Head CT: A noncontrast CT scan of the head was performed and was negative for tumor, fracture, intracranial hemorrhage, or other acute pathology. I refer you to the EMR for further details. HPI: The patient is a 87 year old male who presents to the Emergency Room with complaints of weakness and shortness of breath. Initial reports were that the patient had weakness and could not get around well however the patient's daughter is a nurse here and states that she was notified by the staff that he was confused and not acting himself. She did see him upon arrival and does note that he has more issues with his memory and he is not acting his normal self. She did not note any lateralizing findings. She was concerned with the recent hospitalization and infections. Patient was just in the hospital and diagnosed with fluid overload and pneumonia. He also UTI. He was discharged on cefdinir. He was treated with daptomycin for catheter associated infection. The patient also notes the following associated symptoms, left rib pain. Unable to recurrent pain. Pt denies LOC, headache, neck pain, breathing difficulties, abdominal pain, rash, or other complaints. PAST MEDICAL HISTORY: See Below, A. fib, anticoagulated, UTI PAST SURGICAL HISTORY: See Below, CABG SOCIAL HISTORY: See Below, retired HOME MEDICATIONS: See Below ALLERGIES: See Below VITALS: See Below PHYSICAL EXAMINATION: GENERAL: Awake, tired appearing, in no distress HENT: Normocephalic, atraumatic. Oropharynx unremarkable. EYES: Normal conjunctiva. Sclera non-icteric. NECK: Inspection normal. Non-tender. Supple. No nuchal rigidity. FROM. No masses. RESPIRATORY: Clear to auscultation. No wheezes. No rales. Normal respiratory effort. CARDIAC: Normal rate. Normal rhythm. No murmurs. No rubs. Extremities warm and well perfused. Pulses equal. No JVD. GI: Soft, non-distended. No tenderness to palpation. No rebound or guarding. No masses. RECTAL: Deferred. MUSCULOSKELETAL: Atraumatic. Chest examination reveals left rib tenderness. The back is symmetrical on inspection without obvious abnormality. There is no CVA tenderness to palpation. No joint edema. LOWER EXTREMITIES: Calves are equal size bilaterally and non-tender. 1+ edema. No discoloration. NEURO: Mildly confused sensorium. No focal sensory or motor deficits noted. SKIN: No rash or jaundice noted. Past Med/Surg History Medical History (Updated 06/11/22 @ 17:05 by Nicola Xiao MD) ACS (acute coronary syndrome) BPH (benign prostatic hyperplasia) CAD (coronary artery disease) Chronic anticoagulation Dementia DM type 2 (diabetes mellitus, type 2) DNR (do not resuscitate) Dyslipidemia Dyspnea on exertion Gout History of cerebral hemorrhage HTN (hypertension) Pacemaker Pancreatic cancer Paroxysmal atrial fibrillation Sinus node dysfunction SSS (sick sinus syndrome) Surgical History H/O arthroscopic knee surgery H/O colonoscopy H/O esophagogastroduodenoscopy H/O inguinal hernia repair History of pancreatectomy "07/15/2010 Dr. 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 Beliefs That Will Affect Care: None marital status: / Current Living Situation: Personal Care Facility Current Living Situation Comment: Assisted living current occupational status: retired How many Children do You have: 2 Other Information That Helps Us Care for You: No Feels Safe at Home: Yes Safety Concerns: Feels Safe At This Time Assistive Devices: Walker Allergies Allergies Allergy/AdvReac Type Severity Reaction Status Date / Time shellfish derived Allergy Severe anaphylaxis Verified 06/05/22 16:36 clopidogrel Allergy Intermediate INTERNAL Verified 06/05/22 16:36 HIVES Penicillins Allergy Intermediate HIVES Verified 06/05/22 16:36 Home Meds Home Medications Medication Instructions Recorded Confirmed acetaminophen 325 mg tablet 650 mg PO Q6 PRN Pain 06/05/22 06/11/22 (Tylenol) amlodipine 5 mg tablet 5 mg PO DAILY 06/05/22 06/11/22 apixaban 2.5 mg tablet (Eliquis) 2.5 mg PO BID 06/05/22 06/11/22 aspirin 81 mg tablet,delayed 81 mg PO DAILY 06/05/22 06/11/22 release atorvastatin 40 mg tablet 40 mg PO DAILY 06/05/22 06/11/22 calcium carbonate 300 mg (750 mg) 1,200 mg PO TID PRN Indigestion 06/05/22 06/11/22 chewable tablet (Tums E-X) dutasteride 0.5 mg capsule 0.5 mg PO DAILY 06/05/22 06/11/22 furosemide 40 mg tablet (Lasix) 40 mg PO DAILY 06/05/22 06/11/22 insulin aspart U-100 100 unit/mL 5 unit subcut TID 06/05/22 06/11/22 (3 mL) subcutaneous pen (Novolog FlexPen U-100 Insulin aspart) insulin glargine 100 unit/mL (3 18 unit subcut BID 06/05/22 06/11/22 mL) subcutaneous pen (Lantus Solostar U-100 Insulin) isosorbide mononitrate 60 mg 60 mg PO DAILY 06/05/22 06/11/22 tablet,extended release 24 hr losartan 50 mg tablet 50 mg PO DAILY 06/05/22 06/11/22 metoprolol succinate 50 mg 50 mg PO QAM 06/05/22 06/11/22 tablet,extended release 24 hr nitroglycerin 0.4 mg sublingual 0.4 mg sublingual DIRECTED PRN 06/05/22 06/11/22 tablet (Nitrostat) Chest Pain pantoprazole 40 mg tablet,delayed 40 mg PO DAILY 06/05/22 06/11/22 release tamsulosin 0.4 mg capsule 0.4 mg PO DAILY 06/05/22 06/11/22 Previous Rx's Medication Instructions Recorded cefdinir 300 mg capsule 300 mg PO BID 4 days #8 caps 06/10/22 methenamine hippurate 1 gram tablet 1 g PO DAILY #90 tabs 06/10/22 metronidazole 500 mg tablet 500 mg PO BID #8 tabs 06/10/22 nitrofurantoin 100 mg PO BID 3 days #6 caps 06/10/22 monohydrate/macrocrystals 100 mg capsule Results & Data (ED) Vital Signs Vital Signs - 24 hr 06/11/22 17:11 06/11/22 17:11 06/11/22 17:11 Temperature 36.7 C Temperature Source Oral Pulse Rate 68 Pulse Rate [Apical] 70 Pulse Rate from SpO2 Sensor Respiratory Rate 18 18 Respiratory Effort / Characteristics Non-Labored Non-Labored Respiratory Depth Normal Normal Blood Pressure 136/63 Blood Pressure [Right Arm] 136/73 Blood Pressure Mean 87 Blood Pressure Mean [Right Arm] 94 Pulse Oximetry 91 89 L 89 L Oxygen Delivery Method Room Air Room Air Room Air Oxygen Flow Rate Sepsis Recent Fever Within 48 Hours Yes Sepsis New/Unexplained Change in Mental Status Yes Sepsis Action Taken by Nursing No Action Required 06/11/22 17:11 06/11/22 17:32 06/11/22 19:00 Temperature Temperature Source Pulse Rate 66 64 Pulse Rate [Apical] Pulse Rate from SpO2 Sensor 63 Respiratory Rate 18 28 H Respiratory Effort / Characteristics Respiratory Depth Blood Pressure 156/71 H Blood Pressure [Right Arm] Blood Pressure Mean 99 Blood Pressure Mean [Right Arm] Pulse Oximetry 88 L 93 97 Oxygen Delivery Method Room Air Nasal Cannula Oxygen Flow Rate 2 Sepsis Recent Fever Within 48 Hours Sepsis New/Unexplained Change in Mental Status Sepsis Action Taken by Nursing 06/11/22 19:30 06/11/22 20:51 Temperature Temperature Source Pulse Rate 66 65 Pulse Rate [Apical] Pulse Rate from SpO2 Sensor 55 L 72 Respiratory Rate 27 H 26 H Respiratory Effort / Characteristics Respiratory Depth Blood Pressure 142/70 H 137/70 Blood Pressure [Right Arm] Blood Pressure Mean 94 92 Blood Pressure Mean [Right Arm] Pulse Oximetry 97 98 Oxygen Delivery Method Oxygen Flow Rate Sepsis Recent Fever Within 48 Hours Sepsis New/Unexplained Change in Mental Status Sepsis Action Taken by Nursing Laboratory Data 06/11/22 17:00 06/11/22 17:00 Lab Results 06/11/22 06/11/22 06/11/22 Range/Units 17:00 17:00 17:00 WBC 18.04 H (4.8-10.8) K/ul RBC 4.29 L (4.63-6.08) M/uL Hgb 12.6 L (14.0-18.0) g/dl Hct 39.3 L (40.1-51.0) % MCV 91.6 (80.0-100.0) fL MCH 29.4 (25.0-34.0) pg MCHC 32.1 (32.0-36.0) g/dL RDW Std Deviation 54.3 H (36.4-46.3) fL RDW Coeff of Trevon 16.2 H (11.5-14.5) % Plt Count 223 (130-400) K/uL MPV 10.9 (9.4-12.4) fL Immature Gran % (Auto) 0.7 % Neut % (Auto) 81.5 % Lymph % (Auto) 10.9 % Vil[place] % (Auto) 6.2 % Eos % (Auto) 0.4 % Baso % (Auto) 0.3 % Neut # (Auto) 14.72 H (1.4-6.5) K/uL Lymph # (Auto) 1.96 (1.2-3.4) K/uL [place] # (Auto) 1.12 H (0.24-0.82) K/uL Eos # (Auto) 0.07 (0-0.50) K/uL Baso # (Auto) 0.05 (0-0.2) K/uL Immature Gran # (Auto) 0.12 H (0.00-0.02) K/uL Sodium 139 (136-145) mmol/L Potassium 4.0 (3.5-5.1) mmol/L Chloride 106 (98-107) mmol/L Carbon Dioxide 24 (21-32) mmol/L Anion Gap 9 (3-11) BUN 26 H (6-23) mg/dl Creatinine 1.29 (0.6-1.4) mg/dl Est Cr Clr Drug Dosing 43.0 ml/min Est GFR ( Amer) 57.4 ml/min Est GFR (Non-Af Amer) 49.5 ml/min BUN/Creatinine Ratio 20.2 H (10-20) Glucose 221 H (70-99(Fasting)) mg/dl Lactate (0.4-2.0) mmol/L Calcium 9.2 (8.5-10.1) mg/dl Magnesium 1.8 (1.7-2.4) mg/dl Total Bilirubin 1.1 H (0.2-1.0) mg/dl AST 22 (13-39) U/L ALT 10 (7-52) U/L Alkaline Phosphatase 118 H (34-104) U/L Troponin I High Sens 40.6 H (0-20) pg/ml Total Protein 8.8 H (6.0-8.3) gm/dl Albumin 3.8 (3.4-5.0) gm/dl Globulin 5.0 H (2.5-4.0) gm/dl Albumin/Globulin Ratio 0.8 L (0.9-2) TSH 1.344 (0.300-4.500) uIu/ml SARS-CoV-2 (PCR) (Negative) Influenza Type A (PCR) (Neg) Influenza Type B (PCR) (Neg) RSV (RT-PCR) (Neg) 06/11/22 06/11/22 06/11/22 Range/Units 17:00 18:07 20:27 WBC (4.8-10.8) K/ul RBC (4.63-6.08) M/uL Hgb (14.0-18.0) g/dl Hct (40.1-51.0) % MCV (80.0-100.0) fL MCH (25.0-34.0) pg MCHC (32.0-36.0) g/dL RDW Std Deviation (36.4-46.3) fL RDW Coeff of Trevon (11.5-14.5) % Plt Count (130-400) K/uL MPV (9.4-12.4) fL Immature Gran % (Auto) % Neut % (Auto) % Lymph % (Auto) % Vilas % (Auto) % Eos % (Auto) % Baso % (Auto) % Neut # (Auto) (1.4-6.5) K/uL Lymph # (Auto) (1.2-3.4) K/uL Vilas # (Auto) (0.24-0.82) K/uL Eos # (Auto) (0-0.50) K/uL Baso # (Auto) (0-0.2) K/uL Immature Gran # (Auto) (0.00-0.02) K/uL Sodium (136-145) mmol/L Potassium (3.5-5.1) mmol/L Chloride (98-107) mmol/L Carbon Dioxide (21-32) mmol/L Anion Gap (3-11) BUN (6-23) mg/dl Creatinine (0.6-1.4) mg/dl Est Cr Clr Drug Dosing ml/min Est GFR ( Amer) ml/min Est GFR (Non-Af Amer) ml/min BUN/Creatinine Ratio (10-20) Glucose (70-99(Fasting)) mg/dl Lactate 2.1 H* 1.8 (0.4-2.0) mmol/L Calcium (8.5-10.1) mg/dl Magnesium (1.7-2.4) mg/dl Total Bilirubin (0.2-1.0) mg/dl AST (13-39) U/L ALT (7-52) U/L Alkaline Phosphatase (34-104) U/L Troponin I High Sens (0-20) pg/ml Total Protein (6.0-8.3) gm/dl Albumin (3.4-5.0) gm/dl Globulin (2.5-4.0) gm/dl Albumin/Globulin Ratio (0.9-2) TSH (0.300-4.500) uIu/ml SARS-CoV-2 (PCR) NEGATIVE (Negative) Influenza Type A (PCR) Negative (Neg) Influenza Type B (PCR) Negative (Neg) RSV (RT-PCR) Negative (Neg) Administered Medications Discontinued Medications Cefepime HCl (Maxipime) 2,000 mg in 20 mls @ 5 mls/min IV NOW STA; Protocol Stop: 06/11/22 17:33 Last Admin: 06/11/22 17:40 Dose: 5 mls/min Documented By: MARIANA Vancomycin HCl 1,500 mg/ (Sodium Chloride) 530 mls @ 200 mls/hr IV NOW ONE Stop: 06/11/22 20:08 Last Admin: 06/11/22 18:16 Dose: 200 mls/hr Documented By: MARIANA Imaging Data Radiologist's Impression: Chest X-Ray 06/11/22 16:59 XR chest 1V portable HISTORY: 87 years-old Male SOB, cough, pneumonia acute cough with shortness of breath COMPARISON: Chest radiograph June 05, 2022 TECHNIQUE: AP view the chest FINDINGS: Cardiac silhouette is enlarged. Prior median sternotomy. Left subclavian pacer. Pulmonary vascular congestion. No pneumothorax, large pleural effusion or lobar airspace consolidation. Mild right hemidiaphragmatic elevation. Blunting of the lateral costophrenic angles. Degenerative changes of the shoulders and spine. Left shoulder rotator cuff calcific tendinosis. IMPRESSION: Cardiomegaly with pulmonary vascular congestion. ACT 112: Negative or not required by law. The above report was generated using voice recognition software. It may contain grammatical, syntax or spelling errors. Electronically signed by: Elías Ferreira M.D. 06/11/2022 6:[address] 06/11/22 17:30 CT head/brain wo con CLINICAL HISTORY: 87 years-old Male with Acute confusion. Acutely altered mental status with confusion TECHNIQUE: Multiple axial CT images of the head were obtained without contrast. A dose lowering technique was utilized adhering to the principles of ALARA. CT DOSE: 2672.92 mGy.cm COMPARISON: Head CT 10/04/2021 FINDINGS: No acute intracranial hemorrhage, midline shift, intracranial mass, hydrocephalus, territorial ischemia or abnormal extra-axial collection. Involutional changes with advanced chronic microvascular ischemic disease. Encephalomalacia within the right parieto-occipital lobe again noted along with chronic basal ganglia lacunar infarcts and chronic right frontal lobe infarct. Cerebral vascular calcifications. Dilation of the V4 segment right vertebral artery appears unchanged. Motion degraded exam. The calvarium is intact. Trace mastoid effusions. Mild mucosal thickening of the ethmoid air cells. Prior bilateral lens repair. IMPRESSION: Motion degraded exam without acute intracranial abnormality identified. ACT 112: Negative or not required by law. The above report was generated using voice recognition software. It may contain grammatical, syntax or spelling errors. Electronically signed by: Elías Ferreira M.D. 06/11/2022 6:17 PM Discharge Plan Visit Data Chief Complaint: Weakness Stated Complaint: weakness ED Provider: Nicola Xiao Discharge Problem: Acute dyspnea, Generalized weakness, Pneumonia Discharge Instructions Interventions: ED Discharge Assessment Last Done: 06/11/22 22:14
[2022-06-11] MEDS ORDERED: Patient's HEIGHT &/or WEIGHT Needed SCH (17:15)
[2022-06-11 17:19] LABS: Basophils # (auto) 0.05 K/uL (0-0.2); Basophils % (auto) 0.3 %; Eosinophils # (auto) 0.07 K/uL (0-0.50); Eosinophils % (auto) 0.4 %; Hematocrit (blood only) 39.3 % (40.1-51.0); Hemoglobin 12.6 g/dl (14.0-18.0); Immature Granulocytes # (auto) 0.12 K/uL (0.00-0.02); Immature Granulocytes % (auto) 0.7 %; Lymphocytes # (auto) 1.96 K/uL (1.2-3.4); Lymphocytes % (auto) 10.9 %; Mean Corpuscular Hemoglobin 29.4 pg (25.0-34.0); Mean Corpuscular Hgb Conc 32.1 g/dL (32.0-36.0); Mean Corpuscular Volume 91.6 fL (80.0-100.0); Mean Platelet Volume 10.9 fL (9.4-12.4); Monocytes # (auto) 1.12 K/uL (0.24-0.82); Monocytes % (auto) 6.2 %; Neutrophils # (auto) 14.72 K/uL (1.4-6.5); Neutrophils % (auto) 81.5 %; Platelet Count 223 K/uL (130-400); RDW Coefficient of Variation 16.2 % (11.5-14.5); RDW Standard Deviation 54.3 fL (36.4-46.3); Red Blood Count 4.29 M/uL (4.63-6.08); White Blood Count 18.04 K/ul (4.8-10.8)
[2022-06-11] MEDS ORDERED: VANCOMYCIN HCL 1,500 MG in SODIUM CHLORIDE 0.9% 500 ML IV ONE (17:30)
[2022-06-11] MEDS ORDERED: CEFEPIME 2,000 MG/20 ML VIAL IV STA (17:30)
[2022-06-11] MEDS ORDERED: VANCOMYCIN CONSULT ACTIVE PRN (17:30)
[2022-06-11 17:44] LABS: Albumin Globulin Ratio 0.8 (0.9-2); Albumin Level 3.8 gm/dl (3.4-5.0); BUN Creatinine Ratio 20.2 (10-20); Bilirubin,Total 1.1 mg/dl (0.2-1.0); Calcium 9.2 mg/dl (8.5-10.1); Est GFR (African American) 57.4 ml/min; Est GFR (Non-African American) 49.5 ml/min; Magnesium 1.8 mg/dl (1.7-2.4); Total Protein 8.8 gm/dl (6.0-8.3)
--- NOTE | 2022-06-11 18:03 | XRay Report ---
XR chest 1V portable HISTORY: 87 years-old Male SOB, cough, pneumonia acute cough with shortness of breath COMPARISON: Chest radiograph June 05, 2022 TECHNIQUE: AP view the chest FINDINGS: Cardiac silhouette is enlarged. Prior median sternotomy. Left subclavian pacer. Pulmonary vascular co ngestion. No pneumothorax, large pleural effusion or lobar airspace consolidation. Mild right hemidia phragmatic elevation. Blunting of the lateral costophrenic angles. Degenerative changes of the should ers and spine. Left shoulder rotator cuff calcific tendinosis. IMPRESSION: Cardiomegaly with pulmonary vascular congestion. ACT 112: Negative or not required by law. The above report was generated using voice recognition software. It may contain grammatical, syntax o r spelling errors. Electronically signed by: Elías Ferreira M.D. 06/11/2022 6:02 PM
[2022-06-11 18:16] LABS: Influenza A virus by PCR Negative (Neg); Influenza B virus by PCR Negative (Neg); RSV by PCR Negative (Neg); SARS CoV2 RNA(COVID-19) Ceph NEGATIVE (Negative)
--- NOTE | 2022-06-11 18:19 | CT Scan Report ---
CT head/brain wo con CLINICAL HISTORY: 87 years-old Male with Acute confusion. Acutely altered mental status with confusi on TECHNIQUE: Multiple axial CT images of the head were obtained without contrast. A dose lowering tech nique was utilized adhering to the principles of ALARA. CT DOSE: 2672.92 mGy.cm COMPARISON: Head CT 10/04/2021 FINDINGS: No acute intracranial hemorrhage, midline shift, intracranial mass, hydrocephalus, territorial ischem ia or abnormal extra-axial collection. Involutional changes with advanced chronic microvascular ische christel disease. Encephalomalacia within the right parieto-occipital lobe again noted along with chronic basal ganglia lacunar infarcts and chronic right frontal lobe infarct. Cerebral vascular calcificatio ns. Dilation of the V4 segment right vertebral artery appears unchanged. Motion degraded exam. The calvarium is intact. Trace mastoid effusions. Mild mucosal thickening of the ethmoid air cells. Prior bilateral lens repair. IMPRESSION: Motion degraded exam without acute intracranial abnormality identified. ACT 112: Negative or not required by law. The above report was generated using voice recognition software. It may contain grammatical, syntax o r spelling errors. Electronically signed by: Elías Ferreira M.D. 06/11/2022 6:17 PM
[2022-06-11 19:43] LABS: Troponin I High Sensitivity 40.6 pg/ml (0-20)
[2022-06-11] MEDS ORDERED: DEXTROSE 50% 50 ML SYRINGE IV PRN (22:37)
[2022-06-11] MEDS ORDERED: LANTUS PER UNIT CHARGE SQ SCH (22:37)
[2022-06-11] MEDS ORDERED: POLYETHYLENE (MIRALAX) 17 GM PACK PO PRN (22:37)
[2022-06-11] MEDS ORDERED: NITROGLYCERIN SL 0.4 MG/TAB TAB SL PRN ×2 (22:37)
[2022-06-11] MEDS ORDERED: GLUCOSE 40% GEL 15 GM TUBE PO PRN (22:37)
[2022-06-11] MEDS ORDERED: CARBOHYDRATES FOR HYPOGLYCEMIA PO PRN (22:37)
[2022-06-11] MEDS ORDERED: GLUCAGON FOR INJ 1 MG VIAL SQ PRN (22:37)
[2022-06-11] MEDS ORDERED: ACETAMINOPHEN 325 MG TAB PO PRN (22:37)
[2022-06-11] MEDS ORDERED: PHARMACY GLYCEMIC MGMT CONSULT PRN (22:37)
[2022-06-11] MEDS ORDERED: GLUCOSE 10 TAB/TUBE PO PRN (22:37)
[2022-06-11] MEDS ORDERED: SODIUM CHLORIDE 0.9% 1000ML 1,000 ML IV SCH (22:37)
[2022-06-11] MEDS ORDERED: DOXYCYCLINE HYCLATE 100 MG CAP PO SCH (22:37)
[2022-06-11] MEDS ORDERED: CALCIUM CARBONATE 500 MG CHEWABLE TAB PO PRN (22:37)
[2022-06-11] MEDS: APIXABAN 2.5 MG TAB PO SCH (23:54)
[2022-06-12] MEDS: INSULIN ASPART PER UNIT SC SCH ×5 (00:10→23:57)
[2022-06-12] MEDS ORDERED: ERTAPENEM SODIUM 1,000 MG in SYRINGE 0 ML IV SCH (00:30)
--- NOTE | 2022-06-12 01:04 | History and Physical Report ---
DATE OF ADMISSION: 06/11/2022. CHIEF COMPLAINT: Altered mental status. HISTORY OF PRESENT ILLNESS: This is an 87-year-old male with past medical history significant for insulin-dependent diabetes; heart failure with preserved ejection fraction; CAD status post CABG; AFib, on Eliquis; history of chronic indwelling catheter, but was now taken off because of recurrent UTI; history of urinary incontinence; dementia; sick sinus syndrome, status post pacemaker; hypertension; hyperlipidemia, currently living at [facility] in [place],was brought in because of altered mental status. The patient was recently in the hospital, was admitted on 06/05/2022 and discharged on 06/10/2022. At that time, he was treated for acute respiratory failure with hypoxia secondary to heckk-bb-tivauvq systolic CHF, valvular heart disease, aspiration pneumonia, and was given IV Lasix and transitioned to p.o. Lasix. Had two step, did not qualify for oxygen. Was treated with daptomycin for 3 days for UTI, got discharged on cefdinir and Flagyl. The patient is currently staring but not answering any questions. States he is doing okay, but he does not anwer any other questions. He seems to have some cough. His hemodynamics are stable. In the ER, he is saturating okay on 2 liters. Not able to reach the daughter, left a voice mail. As per the [facility], the patient has become more lethargic and altered mental status. They could not even check his blood sugars and vitals because the patient seemed to be scared and was not eating anything today. Prior to that, he was on regular diet. He is able to ambulate with a walker. Could not get much of the history currently. ALLERGIES: SHELLFISH, PLAVIX, PENICILLINS. PAST MEDICAL HISTORY: As mentioned above. 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 FAMILY HISTORY: Currently noncontributory. SOCIAL HISTORY: Former smoker as per records. History of alcohol use, beer. Currently living at [facility]. MEDICATIONS: The patient is on Tylenol 650 mg p.o. q. 6 hours p.r.n., amlodipine 5 mg p.o. daily, aspirin 81 mg p.o. daily, atorvastatin 40 mg p.o. daily, Tums 1200 mg p.o. t.i.d. p.r.n., cefdinir 300 mg p.o. b.i.d. for four more days, dutasteride 0.5 mg p.o. daily, Eliquis 2.5 mg p.o. b.i.d., Lasix 40 mg p.o. daily, NovoLog 5 units subcutaneous t.i.d., Lantus 18 units subcutaneous b.i.d., isosorbide mononitrate 60 mg p.o. daily, losartan 50 mg p.o. daily, methenamine hippurate 1 g p.o. daily, metoprolol succinate 50 mg p.o. daily, metronidazole 500 mg p.o. b.i.d. for four more days, Macrobid 100 mg p.o. b.i.d. for 3 more days, nitroglycerin 0.4 mg sublingual p.r.n., Protonix 40 mg p.o. daily, Flomax 0.4 mg p.o. daily. REVIEW OF SYSTEMS: Unobtainable at this time, the patient is confused. PHYSICAL EXAMINATION: GENERAL: The patient is confused, not answering any questions except saying he is okay. Not oriented. VITAL SIGNS: Temperature 36.7, pulse 66, respiratory rate 27, blood pressure 142/70, oxygen 97% on 2 liters, it was 88% on room air. HEENT: Pupils equal, round and reactive to light. Oral mucosa moist. NECK: No JVD, no neck masses. CARDIOVASCULAR: S1 and S2 heard. Regular rate and rhythm. No murmur, no gallop. RESPIRATORY SYSTEM: Normal AP diameter. Mild rhonchi. No wheezing. ABDOMEN: Soft, bowel sounds present, nontender. No distention. CENTRAL NERVOUS SYSTEM: The patient is not oriented, confused, not answering any questions, not obeying commands. EXTREMITIES: Bilateral lower extremity pedal edema present, no erythema seen. LABORATORY DATA: WBC 18, hemoglobin 12.6, hematocrit 39.3, platelets 223. Sodium 139, potassium 4, chloride 106, bicarbonate 24, BUN 26, creatinine 1.2, serum glucose 221. Lactate was 2.1, repeat is 1.8. Calcium 9.2, magnesium 1.8, total bilirubin 1.1, AST 22, ALT 10, alkaline phosphatase 118. Troponin I high sensitivity 40.6. TSH is 1.33. SARS-CoV-2 PCR negative. Influenza A and B PCR negative. RSV PCR negative. IMAGING DATA: CT of the head, no acute findings. Chest x-ray, pulmonary vascular congestion, cardiomegaly. EKG: Poor quality data with ventricular paced rhythm with occasional PVCs at a rate of 62. ASSESSMENT AND PLAN: This is an 87-year-old male who presents with altered mental status. 1. Altered mental status: Recently was in the hospital for a respiratory failure from congestive heart failure and aspiration pneumonia and also urinary tract infection. His altered mental status could be from the metabolic encephalopathy secondary to sepsis. Meets criteria for sepsis with elevated white count and also lactate initially was 2.1, repeat is 1.8. Possible urinary tract infection, possible pneumonia. ER started empirically on cefepime and vancomycin. Will continue with iv vancomycin and meropenem( hx of pseudomonas and aspiration) Follow the cultures. Will give him gentle fluids with normal saline 50 mL per hour for 1 liter and closely monitor in the tele floor. CT head was okay. He seemed choked on pils in ER. Will hold po meds until more alert and do swallow evaluation.. NPO. Speech consult. 2. Chronic systolic congestive heart failure: Chronic right heart failure, valvular heart disease with yvqg-cv-aroswpoa valvular aortic stenosis, ivhl-ds-gbcnxmgk mitral regurgitation, rlmlqwib-pn-ullzxh tricuspid regurgitation. Continue his home Lasix, losartan, metoprolol succinate, and Imdur withholding parameters. Getting gentle fluids. Monitor for any volume overload. 3. History of coronary artery disease, status post coronary artery bypass grafting. . History of atrial fibrillation, history of sick sinus syndrome, status post pacemaker: On Eliquis, aspirin, statin. ON Imdur, metoprolol with holding parameters.Currently po meds on hold. Close monitor. 4. Diabetes: . Placed on Lantus 10 units b.i.d. for now. Insulin sliding scale. Pharmacy consult. 5. Benign prostatic hypertrophy: History of urinary retention, on Flomax and dutasteride. 6. Chronic anemia: Hemoglobin 12.6, will follow the labs. 7 Hyperlipidemia. 8 Gastroesophageal reflux disease: Continue home medications for now. 9. Mild elevation of troponin: Mostly demand ischemia. Will follow serial enzymes. 10. Deep venous thrombosis prophylaxis: On Eliquis. Currently po meds on hold. TO restart as soon as possible when patient is more alert and if does ok with swallow evaluation. CODE STATUS: DNR/DNI as per my discussion with Cristobal Palacio. He was also DNR/DNI last admission. DISPOSITION: Admit to tele floor. PT/OT prior to discharge. Social service to help with discharge planning. Job ID: [id number] [facility]
[2022-06-12 02:00] LABS: Appearance Urine Clear (Clear); Bacteria Urine Automated Negative (Negative); Bilirubin Urine Negative (Negative); Blood Urine 2+ (Negative); Color Urine Dark Yellow; Glucose Urine UA Negative (Negative); Ketones Urine Negative (Negative); Leukocyte Esterase Urine Trace (Negative); Nitrite Urine Negative (Negative); Protein Urine 2+ (Negative); RBC Urine Automated 0-4 /hpf (0-4); Specific Gravity Urine 1.018 (1.000-1.030); Urobilinogen Urine Negative (Negative); pH Urine 5.5 (4.5-7.5)
[2022-06-12] MEDS: MEROPENEM 500 MG in SYRINGE 0 ML IV SCH ×3 (05:11→18:06)
[2022-06-12] MEDS ORDERED: VANCOMYCIN HCL 1,250 MG in SODIUM CHLORIDE 0.9% 250 ML IV SCH (06:00)
[2022-06-12] MEDS ORDERED: CEFEPIME 2,000 MG in SYRINGE 0 ML IV SCH (06:00)
[2022-06-12 06:04] LABS: Basophils # (auto) 0.05 K/uL (0-0.2); Basophils % (auto) 0.2 %; Eosinophils % (auto) 5.3 %; Hematocrit (blood only) 36.9 % (40.1-51.0); Immature Granulocytes # (auto) 0.24 K/uL (0.00-0.02); Immature Granulocytes % (auto) 1.2 %; Lymphocytes # (auto) 2.23 K/uL (1.2-3.4); Lymphocytes % (auto) 10.8 %; Mean Corpuscular Hemoglobin 29.5 pg (25.0-34.0); Mean Corpuscular Hgb Conc 32.5 g/dL (32.0-36.0); Mean Corpuscular Volume 90.7 fL (80.0-100.0); Mean Platelet Volume 10.2 fL (9.4-12.4); Monocytes # (auto) 0.96 K/uL (0.24-0.82); Monocytes % (auto) 4.7 %; Neutrophils # (auto) 16.04 K/uL (1.4-6.5); Neutrophils % (auto) 77.8 %; Platelet Count 188 K/uL (130-400); RDW Standard Deviation 52.9 fL (36.4-46.3); Red Blood Count 4.07 M/uL (4.63-6.08); White Blood Count 20.62 K/ul (4.8-10.8)
[2022-06-12 06:43] LABS: Calcium 8.7 mg/dl (8.5-10.1); Magnesium 1.8 mg/dl (1.7-2.4)
[2022-06-12 06:48] LABS: BUN Creatinine Ratio 26.2 (10-20); Creatinine Clr Calc Pharmacy 15.5 ml/min; Est GFR (Non-African American) 62.1 ml/min
[2022-06-12] MEDS ORDERED: Patient's HEIGHT &/or WEIGHT Needed STA (07:59)
[2022-06-12 08:03] LABS: Estimated Average Glucose 174 mg/dl; Hemoglobin A1C 7.7 % (4.5-5.6)
[2022-06-12] MEDS ORDERED: ATORVASTATIN 40 MG TAB PO SCH (09:00)
[2022-06-12] MEDS ORDERED: TAMSULOSIN HCL 0.4 MG CAP PO SCH (09:00)
[2022-06-12] MEDS ORDERED: FUROSEMIDE 40 MG TAB PO SCH (09:00)
[2022-06-12] MEDS ORDERED: ASPIRIN 81 MG ECTAB PO SCH (09:00)
[2022-06-12] MEDS ORDERED: METOPROLOL SUCC 50MG EXT REL TAB PO SCH (09:00)
[2022-06-12] MEDS ORDERED: amLODIPine BESYLATE 5 MG TAB PO SCH (09:00)
[2022-06-12] MEDS: APIXABAN 2.5 MG TAB PO SCH (09:53)
[2022-06-12] MEDS: ISOSORBIDE MONO EXTENDED REL 60 MG TABCR PO SCH (09:54)
[2022-06-12] MEDS: PANTOprazole 40 MG TAB PO SCH (09:54)
[2022-06-12] MEDS: LOSARTAN POTASSIUM 50 MG TAB PO SCH (09:54)
[2022-06-12] MEDS: DOXYCYCLINE HYCLATE 100 MG in DEXTROSE 5% 100 ML IV SCH ×2 (10:09→21:25)
[2022-06-12] MEDS: DAPTOmycin 300 MG in SYRINGE 0 ML IV SCH (10:09)
--- NOTE | 2022-06-12 11:46 | XRay Report ---
XR chest 1V portable CLINICAL HISTORY: aspiration TECHNIQUE: Single frontal radiograph of the chest was obtained. Comparison: Comparison is made to chest radiograph 06/11/2022 FINDINGS: Median sternotomy wires are unchanged. Dual-lead pacemaker noted. Cardiomegaly is noted. There is pro minence and cephalization of the vasculature with Kalie B lines seen. Questionable airspace opacity in the right lower lung. No evidence of pleural effusion or pneumothorax. IMPRESSION: Cardiomegaly and moderate pulmonary edema, increased from prior exam. Questionable airspace opacity i n the right lower lung may represent atelectasis, pneumonia, and/or aspiration. ACT 112: Negative or not required by law. Electronically signed by: Brandon Jimenez M.D. 06/12/2022 11:44 AM
--- NOTE | 2022-06-12 12:42 | CT Scan Report ---
CT chest diagnostic wo con CLINICAL HISTORY: r/o pneumonia, CHF TECHNIQUE: Multidetector row helical CT of the chest was performed. Coronal and sagittal reformations were obtained. Automated dose lowering techniques and/or adjustment according to patient size were u tilized for this exam. CT DOSE: 1582.94 mGy.cm Comparison: Comparison is made to CT chest 08/08/2021 FINDINGS: Lungs and pleura: A few scattered groundglass opacities are seen. Atelectasis is noted in the lower l ungs. Heart and pericardium: Cardiomegaly is seen with biatrial enlargement. Vessels: Severe atherosclerotic changes in the aorta and coronary arteries. The pulmonary trunk measu res 32 mm in diameter. Mediastinum and karly: Multiple enlarged lymph nodes are seen measuring up to 13 mm in diameter in the right lower paratracheal station. Chest wall and lower neck: Unremarkable. Abdomen: Unremarkable. Bones: Degenerative changes are seen in the spine with cement arthroplasty noted at L1. IMPRESSION: 1. A few scattered foci of groundglass opacities which may represent pneumonia. Enlarged mediastinal lymph nodes are likely reactive. 2. Cardiomegaly and pulmonary hypertension, unchanged. ACT 112: Negative or not required by law. Electronically signed by: Brandon Jimenez M.D. 06/12/2022 12:39 PM
--- NOTE | 2022-06-12 13:25 | Pharmacy Report ---
Pharmacy Glycemic Short Note 2 - Date of Service June 12, 2022 - Glycemic Short BSG Results (Last 24 hours): 06/11/22 06/12/22 06/12/22 17:00 00:08 05:19 Glucose 221 H 132 H POC Glucose 149 H 06/12/22 06/12/22 07:25 11:25 Glucose POC Glucose 111 H 122 H OUTPATIENT ANTIDIABETIC REGIMEN: * Lantus 18 units SC BID * Novolog 5 units SC TIDM HbA1c: 7.7% (06/12/22) ASSESSMENT: * BEN is an 87 year old male who presented to ED yesterday evening with altered mental status * Recently discharged from hospital on 06/10/22 (treated for CHF, aspiration pneumonia, UTI at that time) * Broad spectrum antibiotics initiated upon admission (currently receiving daptomycin, meropenem, and doxycycline) * Received 15 units of Lantus last evening (BSGs of 221 and 149 mg/dL yesterday) * Based on prior inpatient data, 15-20 units of Lantus/day likely reasonable with diet ordered * Fasting BSG of 111 mg/dL this morning * Will decrease Lantus this evening given NPO status and to decrease likelihood of hypoglycemia PLAN FOR INPATIENT GLYCEMIC CONTROL: * Basal insulin * Lantus 0-10 units SQ HS x 1 while NPO (see EHR for details) * Bolus insulin * NovoLog per scale ACHS or Q6hrs while NPO * Goal Range: Low 110 mg/dL - High 140 mg/dL * Correction Factor: 30 mg/dL/unit * Nutritional / Prandial insulin per carb ratio of 1 unit per 10 grams CHO consumed
--- NOTE | 2022-06-12 13:41 | Hospitalist Progress Note ---
Date of Service June 12, 2022 Assessment & Plan (1) Metabolic encephalopathy: Plan: per Dr. Richardson's notes with addenedum: 1. Acute metabolic encephalopathy likely secondary to pneumonia, possible sepsis Acute hypoxic respiratory failure, secondary to pneumonia Recently was in the hospital for a respiratory failure from congestive heart failure and aspiration pneumonia and also urinary tract infection. His altered mental status could be from the metabolic encephalopathy secondary to sepsis. Meets criteria for sepsis with elevated white count and also lactate initially was 2.1, repeat is 1.8. Possible urinary tract infection, possible pneumonia. CT chest: 1. A few scattered foci of groundglass opacities which may represent pneumonia. Enlarged mediastinal lymph nodes are likely reactive. 2. Cardiomegaly and pulmonary hypertension, unchanged. nasal MRSA: negative blood cultures: pending continue with Meropenem + Doxycycline Day 1 check ABG, ammonia speech therapy max: NPO for now, will need VFSS 2. Chronic systolic congestive heart failure Chronic right heart failure, valvular heart disease with wcub-gr-jaavnzpg valvular aortic stenosis, hvem-fd-sefqsudk mitral regurgitation, rnobnnuq-uc-odnofe tricuspid regurgitation. hold Lasix- patient on the dry side convert metoprolol succines to PO hold Losartan, Imdure 3. History of coronary artery disease, status post coronary artery bypass grafting History of atrial fibrillation, history of sick sinus syndrome, status post pacemaker: On Eliquis, aspirin, statin. ON Imdur, metoprolol with holding parameters.Currently po meds on hold. Close monitor. 4. Diabetes: . Placed on Lantus 10 units b.i.d. for now. Insulin sliding scale. Pharmacy consult. 5. Benign prostatic hypertrophy: History of urinary retention, on Flomax and dutasteride. 6. Chronic anemia: Hemoglobin 12.6, will follow the labs.--> 12.0 7 Hyperlipidemia. 8 Gastroesophageal reflux disease: Continue home medications for now. 9. Mild elevation of troponin: Mostly demand ischemia.40 --> 34.9 10. Deep venous thrombosis prophylaxis: On Eliquis. Admission and Anticipated Discharge Date Admission Date: June 11, 2022 Subjective Follow-up for encephalopathy, etc. Discussed with RN, patient mostly drowsy, but occasionally wakes up but confused Seen resting in bed, sleeping, on oxygen mask, not in distress, drowsy No signs of pain Review of Systems Review of Systems: Unobtainable due to cognitive status Physical Exam Physical Exam: General-drowsy, not in distress, breathing with no effort or accessory muscle use Eyes- anicteric Neck- no JVD Lungs-mild rales bilateral bases Heart- normal rate, regular rhythm; no murmurs Abdomen- normal bowel sounds, nondistended, soft, nontender Extremities-trace pretibial edema, no calf tenderness Neuro-. Drowsy Skin- warm & dry Results & Data Results & Data ([facility]) Vital Signs (Past 12 Hours) Vital Signs Temp Pulse Pulse Pulse Resp BP Pulse Ox 06/12/22 12:49 36.6 C 18 134/65 95 06/12/22 07:00 65 06/12/22 08:05 36.5 C 60 20 125/72 96 06/12/22 02:56 36.4 C L 62 18 115/64 96 O2 Del Method O2 Flow Rate 06/12/22 12:49 Oxymask 2 06/12/22 07:00 06/12/22 08:05 Oxymask 2 06/12/22 02:56 Oxymask 2
--- NOTE | 2022-06-12 13:53 | Hospitalist Progress Note ---
Date of Service June 12, 2022 Assessment & Plan (1) Metabolic encephalopathy: Plan: per Dr. Richardson's notes with addenedum: 1. Acute metabolic encephalopathy likely secondary to pneumonia, possible sepsis Acute hypoxic respiratory failure, secondary to pneumonia Recently was in the hospital for a respiratory failure from congestive heart failure and aspiration pneumonia and also urinary tract infection. His altered mental status could be from the metabolic encephalopathy secondary to sepsis. Meets criteria for sepsis with elevated white count and also lactate initially was 2.1, repeat is 1.8. Possible urinary tract infection, possible pneumonia. CT chest: 1. A few scattered foci of groundglass opacities which may represent pneumonia. Enlarged mediastinal lymph nodes are likely reactive. 2. Cardiomegaly and pulmonary hypertension, unchanged. nasal MRSA: negative blood cultures: pending continue with Meropenem + Doxycycline Day 1 check ABG, ammonia speech therapy max: NPO for now, will need VFSS 2. Chronic systolic congestive heart failure Chronic right heart failure, valvular heart disease with unfm-mq-cjuhvoww valvular aortic stenosis, cnzp-bm-secdqylb mitral regurgitation, xlapffdt-ap-iunhzz tricuspid regurgitation. hold Lasix- patient on the dry side convert metoprolol succines to PO hold Losartan, Imdure 3. History of coronary artery disease, status post coronary artery bypass grafting History of atrial fibrillation, history of sick sinus syndrome, status post pacemaker: On Eliquis, aspirin, statin. ON Imdur, metoprolol with holding parameters.Currently po meds on hold. Close monitor. 4. Diabetes: . Placed on Lantus 10 units b.i.d. for now. Insulin sliding scale. Pharmacy consult. 5. Benign prostatic hypertrophy: History of urinary retention, on Flomax and dutasteride. 6. Chronic anemia: Hemoglobin 12.6, will follow the labs.--> 12.0 7 Hyperlipidemia. 8 Gastroesophageal reflux disease: Continue home medications for now. 9. Mild elevation of troponin: Mostly demand ischemia.40 --> 34.9 10. Deep venous thrombosis prophylaxis: On Eliquis. Admission and Anticipated Discharge Date Admission Date: June 11, 2022 Subjective ff up for COPD exacerbation, etc Seen resting in bed, comfortable, not in distress on oxymask 7L states he feels better today than yesterday breathing improving occasional dry cough no fever/chills no chest pain, dyspnea, palpitations, dizziness no other symptoms Review of Systems Review of Systems: all noted and negative except for above Physical Exam Physical Exam: General- oriented x 3, not in distress, speaks in sentences with no effort or accessory muscle use Eyes- anicteric Neck- no JVD Lungs-(+) mild-moderate wheeze BL good air entry Heart- normal rate, regular rhythm; no murmurs Abdomen- normal bowel sounds, nondistended, soft, nontender Extremities- no pretibial edema, no calf tenderness Neuro- alert, oriented x 3; no gross focal neurologic deficits Skin- warm & dry Results & Data Results & [facility] ([facility]) Vital Signs (Past 12 Hours) Vital Signs Temp Pulse Pulse Pulse Resp BP Pulse Ox 06/12/22 12:49 36.6 C 18 134/65 95 06/12/22 07:00 65 06/12/22 08:05 36.5 C 60 20 125/72 96 06/12/22 02:56 36.4 C L 62 18 115/64 96 O2 Del Method O2 Flow Rate 06/12/22 12:49 Oxymask 2 06/12/22 07:00 06/12/22 08:05 Oxymask 2 06/12/22 02:56 Oxymask 2 all noted and reviewed including below
[2022-06-12 14:36] LABS: Base Excess ABG 0.2 mEq/L (-9-1.8); HCO3 ABG 25 mmol/L (19-24); Oxygen Saturation ABG 99.1 % (90-95); PCO2 ABG 38 mmHg (35-46); PO2 ABG 96 mmHg (80-95); pH ABG 7.42 (7.35-7.45)
[2022-06-12 14:37] LABS: Allen Test Pos (Pos)
--- NOTE | 2022-06-12 14:57 | Electrocardiogram Report ---
Test Reason : Blood Pressure : / mmHG Vent. Rate : 062 BPM Atrial Rate : 043 BPM P-R Int : 000 ms QRS Dur : 178 ms QT Int : 540 ms P-R-T Axes : 000 -80 096 degrees QTc Int : 548 ms Poor data quality, interpretation may be adversely affected Ventricular-paced rhythm with occasional Premature ventricular complexes Abnormal ECG When compared with ECG of 05-JUN-2022 13:41, Premature ventricular complexes are now Present Confirmed by Pravin Acevedo ([id number]) on 06/12/2022 2:56:45 PM Referred By: [facility] Confirmed By:Pravin Acevedo
[2022-06-12] MEDS ORDERED: LANTUS PER UNIT CHARGE SQ SCH (21:00)
[2022-06-13] MEDS: MEROPENEM 500 MG in SYRINGE 0 ML IV SCH ×3 (02:26→18:39)
[2022-06-13] MEDS ORDERED: Nursing to Pharmacy Communication SCH (07:00)
[2022-06-13] MEDS: INSULIN ASPART PER UNIT SC SCH ×3 (07:15→18:39)
[2022-06-13 09:00] LABS: Basophils # (auto) 0.02 K/uL (0-0.2); Basophils % (auto) 0.2 %; Eosinophils # (auto) 1.22 K/uL (0-0.50); Eosinophils % (auto) 9.9 %; Hematocrit (blood only) 35.5 % (40.1-51.0); Hemoglobin 11.6 g/dl (14.0-18.0); Immature Granulocytes # (auto) 0.06 K/uL (0.00-0.02); Immature Granulocytes % (auto) 0.5 %; Lymphocytes % (auto) 21.9 %; Mean Corpuscular Hemoglobin 29.4 pg (25.0-34.0); Mean Corpuscular Hgb Conc 32.7 g/dL (32.0-36.0); Mean Corpuscular Volume 89.9 fL (80.0-100.0); Mean Platelet Volume 10.2 fL (9.4-12.4); Monocytes # (auto) 0.96 K/uL (0.24-0.82); Monocytes % (auto) 7.8 %; Neutrophils # (auto) 7.37 K/uL (1.4-6.5); Neutrophils % (auto) 59.7 %; Platelet Count 215 K/uL (130-400); RDW Coefficient of Variation 16.2 % (11.5-14.5); RDW Standard Deviation 53.7 fL (36.4-46.3); Red Blood Count 3.95 M/uL (4.63-6.08); White Blood Count 12.33 K/ul (4.8-10.8)
[2022-06-13] MEDS: DOXYCYCLINE HYCLATE 100 MG in DEXTROSE 5% 100 ML IV SCH ×2 (09:02→20:35)
[2022-06-13] MEDS: DAPTOmycin 300 MG in SYRINGE 0 ML IV SCH (09:02)
[2022-06-13] MEDS: PANTOprazole 40 MG TAB PO SCH (09:03)
[2022-06-13 09:20] LABS: BUN Creatinine Ratio 28.4 (10-20); Est GFR (African American) 76.2 ml/min; Est GFR (Non-African American) 65.8 ml/min; Potassium 3.8 mmol/L (3.5-5.1)
--- NOTE | 2022-06-13 16:00 | Hospitalist Progress Note ---
Date of Service June 13, 2022 Assessment & Plan (1) Metabolic encephalopathy: Plan: (1) Metabolic encephalopathy: Plan: per Dr. Richardson's notes with addenedum: 1. Acute metabolic encephalopathy likely secondary to pneumonia, possible sepsis Acute hypoxic respiratory failure, secondary to pneumonia Recently was in the hospital for a respiratory failure from congestive heart failure and aspiration pneumonia and also urinary tract infection. His altered mental status could be from the metabolic encephalopathy secondary to sepsis. Meets criteria for sepsis with elevated white count and also lactate initially was 2.1, repeat is 1.8. Possible urinary tract infection, possible pneumonia. CT chest: 1. A few scattered foci of groundglass opacities which may represent pneumonia. Enlarged mediastinal lymph nodes are likely reactive. 2. Cardiomegaly and pulmonary hypertension, unchanged. nasal MRSA: negative blood cultures: Negative x24 hours Patient awake and alert today, confused Currently on room air continue with Meropenem + Doxycycline Day 2 speech therapy max: NPO for now, will need VFSS Patient still did not pass bedside swallow eval, continue n.p.o. Will start gentle IV fluids 2. Chronic systolic congestive heart failure Chronic right heart failure, valvular heart disease with rvcw-bm-lcxipdmu valvular aortic stenosis, bpot-iw-bvascrsd mitral regurgitation, pfuhoaok-in-xwmqcp tricuspid regurgitation. hold Lasix- patient on the dry side convert metoprolol succinate to PO hold Losartan, Imdure 3.History of coronary artery disease, status post coronary artery bypass grafting History of atrial fibrillation, history of sick sinus syndrome, status post pacemaker: On Eliquis, aspirin, statin. ON Imdur, metoprolol with holding parameters.Currently po meds on hold. Close monitor. 4. Diabetes: . Insulin sliding scale. Pharmacy consult. 5. Benign prostatic hypertrophy: History of urinary retention, on Flomax and dutasteride. 6. Chronic anemia: Hemoglobin 12.6, will follow the labs.--> 11.6 7 Hyperlipidemia. 8 Gastroesophageal reflux disease: Continue home medications for now. 9. Mild elevation of troponin: Mostly demand ischemia.40 --> 34.9 10. Deep venous thrombosis prophylaxis: On Eliquis. Disposition Return to [facility] medically stable Admission and Anticipated Discharge Date Admission Date: June 11, 2022 Subjective Follow-up for metabolic encephalopathy, pneumonia, etc. Seen sitting up in bed, comfortable, not in distress Awake and alert, confused, somewhat irritable but cooperative States he feels fine overall Denies shortness of breath, chest pain, headache, dizziness, abdominal pain, nausea vomiting No other symptoms Patient showing signs of aspiration with bedside swallowing eval-drinking a sip of water Review of Systems Review of Systems: all noted and negative except for above Physical Exam Physical Exam: General- oriented x 1, not in distress, speaks in sentences with no effort or accessory muscle use Eyes- anicteric Neck- no JVD Lungs-faint rhonchi bilateral bases, no wheezing Heart- normal rate, regular rhythm; no murmurs Abdomen- normal bowel sounds, nondistended, soft, no tenderness Extremities- no pretibial edema, no calf tenderness Neuro- alert, oriented x 1; no gross focal neurologic deficits Skin- warm & dry Results & Data Results & Data ([facility]) Vital Signs (Past 12 Hours) Vital Signs Temp Pulse Pulse Resp BP Pulse Ox O2 Del Method 06/13/22 11:42 36.6 C 87 18 130/69 95 Nasal Cannula 06/13/22 08:00 36.8 C 92 H 18 148/72 H 93 Nasal Cannula 06/13/22 08:00 Room Air 06/13/22 07:00 70 O2 Flow Rate 06/13/22 11:42 3 06/13/22 08:00 2 06/13/22 08:00 06/13/22 07:00 all noted and reviewed including below
[2022-06-13] MEDS ORDERED: D5W AND NSS 1,000 ML IV SCH (18:15)
[2022-06-14] MEDS: INSULIN ASPART PER UNIT SC SCH ×6 (00:17→21:27)
[2022-06-14] MEDS: MEROPENEM 500 MG in SYRINGE 0 ML IV SCH ×3 (02:26→17:35)
[2022-06-14] MEDS: PANTOprazole 40 MG TAB PO SCH (08:25)
[2022-06-14 08:27] LABS: Basophils # (auto) 0.04 K/uL (0-0.2); Basophils % (auto) 0.4 %; Eosinophils % (auto) 7.6 %; Hematocrit (blood only) 37.6 % (40.1-51.0); Hemoglobin 12.2 g/dl (14.0-18.0); Immature Granulocytes # (auto) 0.03 K/uL (0.00-0.02); Immature Granulocytes % (auto) 0.3 %; Lymphocytes # (auto) 2.51 K/uL (1.2-3.4); Mean Corpuscular Hemoglobin 29.2 pg (25.0-34.0); Mean Corpuscular Hgb Conc 32.4 g/dL (32.0-36.0); Mean Platelet Volume 10.3 fL (9.4-12.4); Monocytes # (auto) 0.98 K/uL (0.24-0.82); Monocytes % (auto) 9.4 %; Neutrophils % (auto) 58.3 %; Platelet Count 241 K/uL (130-400); RDW Coefficient of Variation 16.3 % (11.5-14.5); RDW Standard Deviation 53.9 fL (36.4-46.3); Red Blood Count 4.18 M/uL (4.63-6.08); White Blood Count 10.46 K/ul (4.8-10.8)
[2022-06-14] MEDS: DOXYCYCLINE HYCLATE 100 MG in DEXTROSE 5% 100 ML IV SCH ×2 (08:28→20:30)
[2022-06-14] MEDS ORDERED: LANTUS PER UNIT CHARGE SQ SCH ×2 (09:00→12:15)
--- NOTE | 2022-06-14 09:13 | Pharmacy Report ---
Pharmacy Glycemic Short Note 2 - Date of Service June 14, 2022 - Glycemic Short BSG Results (Last 24 hours): 06/13/22 06/13/22 06/14/22 08:46 18:29 00:02 Glucose 86 POC Glucose 99 152 H 06/14/22 05:54 Glucose POC Glucose 145 H OUTPATIENT ANTIDIABETIC REGIMEN: * Lantus 18 units SC BID * Novolog 5 units SC TIDM HbA1c: 7.7% (06/12/22) ASSESSMENT: 06/14/22 * Patient has continued receiving daptomycin, meropenem, doxycycline and a new start of D5W/NS fluid yesterday evening. NPO to diet today * BSG yesterday was 85 -101 mg/dL. FBSG this morning is 145 mg/dL. Rise in BSG today may have been caused by fluid started yesterday * No insulin was administered yesterday but with BSG beginning to trend up, will add basal 06/13/22 * BEN is an 87 year old male who presented to ED yesterday evening with altered mental status * Recently discharged from hospital on 06/10/22 (treated for CHF, aspiration pneumonia, UTI at that time) * Broad spectrum antibiotics initiated upon admission (currently receiving daptomycin, meropenem, and doxycycline) * Received 15 units of Lantus last evening (BSGs of 221 and 149 mg/dL yesterday) * Based on prior inpatient data, 15-20 units of Lantus/day likely reasonable with diet ordered * Fasting BSG of 111 mg/dL this morning * Will decrease Lantus this evening given NPO status and to decrease likelihood of hypoglycemia PLAN FOR INPATIENT GLYCEMIC CONTROL: * Basal insulin * Lantus 5 units SQ HS x 1 while NPO (see EHR for details) * Bolus insulin * NovoLog per scale ACHS or Q6hrs while NPO * Goal Range: Low 110 mg/dL - High 140 mg/dL * Correction Factor: 30 mg/dL/unit * Nutritional / Prandial insulin per carb ratio of 1 unit per 10 grams CHO consumed
[2022-06-14 09:24] LABS: BUN Creatinine Ratio 29.3 (10-20); Calcium 8.8 mg/dl (8.5-10.1); Creatinine Clr Calc Pharmacy 62.1 ml/min; Est GFR (African American) 86.4 ml/min; Est GFR (Non-African American) 74.5 ml/min; Potassium 3.7 mmol/L (3.5-5.1)
[2022-06-14] MEDS: DAPTOmycin 300 MG in SYRINGE 0 ML IV SCH (11:03)
--- NOTE | 2022-06-14 11:08 | Fluoroscopy Report ---
FL video swallow CLINICAL HISTORY: 87 years-old Male with Signs of aspiration noted during bedside eval. Dysphasia TECHNIQUE: Video fluoroscopic evaluation of swallowing was performed in the AP and lateral projection s by the speech pathology staff. The patient is fed thin liquid, mildly thick, pudding and cracker wi th paste consistencies. FLUOROSCOPY TIME: 3.6 minutes COMPARISON STUDY: Chest CT June 12, 2022. FINDINGS: Aspiration with thin liquid barium. No additional significant laryngeal penetration or aspi ration identified. There is mildly decreased hyoid excursion and epiglottic deflection. Mild mid to d istal esophageal dysmotility. Spondylitic spurring of the spine. Partially imaged pacer leads. Prior median sternotomy. IMPRESSION: 1. Aspiration with thin liquid barium. 2. Please see the speech pathologist report for detailed findings and recommendations. ACT 112: Negative or not required by law. Electronically signed by: Elías Ferreira M.D. 06/14/2022 11:07 AM
--- NOTE | 2022-06-14 12:30 | Palliative Care Consultation ---
Date of Consultation June 14, 2022 Assessment & Plan (1) Palliative care encounter: Met with pt/family. Provided overview of Palliative Medicine, a subspecialty that provides specialized medical care for people living with a serious illness by offering a focus on quality of life. Palliative Medicine is often conflated with hospice: I advised patient/family that Palliative and hospice can be partners but we are not the same. It is important to understand the difference so that we may be informed, and not afraid. Palliative Medicine works to improve QOL through reduction of symptom burden/more control over their illness, for both the patient and family. Palliative medicine clinicians are board certified, specially-trained and another member of the patient's medical care team. We often provide an extra layer of support because our care is based on the needs of the patient, not the prognosis; as such, it's appropriate at any age/advancing stage of a serious illness and can be provided along with curative treatment. Palliative Medicine clinicians are also trained in advanced communication methodologies, to facilitate complex discussions about advanced illness planning, which are needed to help assure that the treatment choices match the patient's goals, aka delivering Goal Concordant care. Finally, we discussed that hospice is a visiting nurse service that focuses on care delivered at the very end of life for patients with terminal illness, with life expectancy less than 6 month. (2) Advanced care planning/counseling discussion: Patient states that he hopes he is able to return back to his personal skilled nursing. We discussed the possibility of possibly needing to resume physical therapy although he is safely ambulating around his room and short distances in the hallway using his walker and with nursing or physical therapy present for support. He had a speech evaluation which has allowed him to return to a regular diet. He is happy to be eating again. He cannot recall what led to the admission or what the matute issues medically are. He is showing some lack of insight into these issues. 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 He states he retired in the mid 1970s which she also confirms. Patient is willing to go back to his personal skilled nursing with physical therapy services to resume to try and optimize his strength and conditioning. He is less enthused about the possibility of having to go to a nursing facility. His mental status does seem improved than what was reported on arrival during this admission, however a neurocognitive and geriatric psychiatry evaluation should be conducted to assess for any additional potential issues such as dementia which for this patient may be either vascular or Alzheimer's type. (3) Metabolic encephalopathy: +AMS is slowly improving (4) Acute respiratory failure with hypoxia: Improved, patient is no longer requiring supplemental oxygen (5) Sepsis: Sepsis acute organ dysfunction status: unspecified Sepsis type: sepsis due to unspecified organism Qualified Code(s): A41.9 - Sepsis, unspecified organism (6) Aspiration pneumonia: Speech evaluation completed, he has resumed regular diet. (7) Generalized weakness: Improving with treatment, patient is ambulating around the room and in hallways with his walker. Plan 87-year-old gentleman with complex, comorbid medical issues and [id number] admissions for an acute? On chronic? Respiratory failure due to aspiration and sepsis. This is improved with treatment though his mental status appears to remain slightly cloudy. I am not sure what his baseline was prior to this admission though chart review indicates the family reported he was quite independent in all of his activities of daily living and appropriate in his conversations and interactions with them. Once he is recovered from this acute admission and completed some physical therapy, I would strongly encourage a more formal neurocognitive and geriatric psychiatry evaluation to assess for neurodegenerative disorder such as Alzheimer's/vascular dementia versus atypicals. For now, he is hopeful to return to the [facility] and resume living at the assisted living facility. He is not able to engage in a conversation about the goals of his care as he seems to not understand the implications of his overall medical issues. Potentially a family meeting may be necessary but I suspect they would want additional information about his cognitive status before making any additional decisions. This is not unreasonable. History of Present Illness Reason for Consultation: " On 06/14/22 @ 10:16 Adam Mosher Wrote To Maria Ines Hernández Goals of care" Attending Physician: Adam Mosher MD History of Present Illness Truman Little is an 87yo male is a readmit (<30 days/high risk/LACE = 13). He resides at [facility] in [place]. +AMS. has carmen in contact with his daughter,a nurse at [employer] [employer]. Truman is presently readmitted from [facility] with acute metabolic encephalopathy likely secondary to pneumonia along with acute hypoxic respiratory failure, secondary to pneumonia. Chart review indicates his recent admission was for respiratory failure d/t CHF and aspiration PNA along with an UTI. He has +AMS due to the metabolic encephalopathysecondary to sepsis. He has PMH including insulin dependent diabetes; heart failure with preserved ejection fraction; CAD status post CABG; AFib, on Eliquis; history of chronic indwelling catheter, but was now taken off because of recurrent UTI; history of urinary incontinence; dementia; sick sinus syndrome, status post pacemaker; hypertension; hyperlipidemia. Patient is seen at bedside with his lady friend visiting. He denies being in any acute pain. He does not recall the events leading to his admission. He tells me he is able to ambulate around his room using his walker. This is corroborated by his nurse who came and throughout our evaluation time. Patient cannot recall many details about this admission or his course of treatment. He also seems to stop in the middle of sentences and occasionally stare off before resuming his train of thought. He perseverates on a few pointsspecifically that providers from [facility] and he should begin coming to the [facility] personal-skilled nursing to visit, socialize and check out the residents and that also going back to physical therapy would be a sign of failure to him. He denies any acute symptoms today which include but are not limited to the following: Dyspnea, chest pain, headaches, visual changes, nausea, vomiting, diarrhea or GI distress, abdominal pain, numbness or tingling, mood changes, hearing loss, swallowing difficulties, coughing, falls, weakness. He states he had a swallow study and has been able to resume a regular diet. He is quite pleased with the outcome of this testing. Allergies Allergy/AdvReac Type Severity Reaction Status Date / Time shellfish derived Allergy Severe anaphylaxis Verified 06/05/22 16:36 clopidogrel Allergy Intermediate INTERNAL Verified 06/05/22 16:36 HIVES Penicillins Allergy Intermediate HIVES Verified 06/14/22 08:27 Home Medications Medication Instructions Recorded Confirmed Type acetaminophen 325 mg tablet 650 mg PO Q6 PRN Pain 06/05/22 06/11/22 History (Tylenol) amlodipine 5 mg tablet 5 mg PO DAILY 06/05/22 06/11/22 History apixaban 2.5 mg tablet (Eliquis) 2.5 mg PO BID 06/05/22 06/11/22 History aspirin 81 mg tablet,delayed 81 mg PO DAILY 06/05/22 06/11/22 History release atorvastatin 40 mg tablet 40 mg PO DAILY 06/05/22 06/11/22 History calcium carbonate 300 mg (750 mg) 1,200 mg PO TID PRN Indigestion 06/05/22 06/11/22 History chewable tablet (Tums E-X) dutasteride 0.5 mg capsule 0.5 mg PO DAILY 06/05/22 06/11/22 History furosemide 40 mg tablet (Lasix) 40 mg PO DAILY 06/05/22 06/11/22 History insulin aspart U-100 100 unit/mL 5 unit subcut TID 06/05/22 06/11/22 History (3 mL) subcutaneous pen (Novolog FlexPen U-100 Insulin aspart) insulin glargine 100 unit/mL (3 18 unit subcut BID 06/05/22 06/11/22 History mL) subcutaneous pen (Lantus Solostar U-100 Insulin) isosorbide mononitrate 60 mg 60 mg PO DAILY 06/05/22 06/11/22 History tablet,extended release 24 hr losartan 50 mg tablet 50 mg PO DAILY 06/05/22 06/11/22 History metoprolol succinate 50 mg 50 mg PO QAM 06/05/22 06/11/22 History tablet,extended release 24 hr nitroglycerin 0.4 mg sublingual 0.4 mg sublingual DIRECTED PRN 06/05/22 06/11/22 History tablet (Nitrostat) Chest Pain pantoprazole 40 mg tablet,delayed 40 mg PO DAILY 06/05/22 06/11/22 History release tamsulosin 0.4 mg capsule 0.4 mg PO DAILY 06/05/22 06/11/22 History cefdinir 300 mg capsule 300 mg PO BID 4 days #8 caps 06/10/22 06/11/22 Rx methenamine hippurate 1 gram tablet 1 g PO DAILY #90 tabs 06/10/22 06/11/22 Rx metronidazole 500 mg tablet 500 mg PO BID #8 tabs 06/10/22 06/11/22 Rx nitrofurantoin 100 mg PO BID 3 days #6 caps 06/10/22 06/11/22 Rx monohydrate/macrocrystals 100 mg capsule Patient History Medical History (Updated 06/14/22 @ 12:37 by Maria Ines Hernández DNP) ACS (acute coronary syndrome) Advanced care planning/counseling discussion BPH (benign prostatic hyperplasia) CAD (coronary artery disease) Chronic anticoagulation Dementia DM type 2 (diabetes mellitus, type 2) DNR (do not resuscitate) Dyslipidemia Dyspnea on exertion Gout History of cerebral hemorrhage HTN (hypertension) Pacemaker Pancreatic cancer Paroxysmal atrial fibrillation Sinus node dysfunction SSS (sick sinus syndrome) Surgical History H/O arthroscopic knee surgery H/O colonoscopy H/O esophagogastroduodenoscopy H/O inguinal hernia repair History of pancreatectomy "07/15/2010 Dr[facility] " S/P CABG x 1 S/P coronary artery stent placement "03/29/03 cardiac cath: RCA - stent of 90% lesion, L circ obtuse kenneth - stent of 80% lesion " S/P splenectomy S/P tonsillectomy and adenoidectomy Family History Other Family history non-contributory Social History Smoking Status: Former smoker Tobacco Type: Cigarettes Second Hand Exposure: No; Do You Dip or Chew Tobacco: No; Hx Alcohol Use: Yes Alcohol type: beer Hx Substance Use: No Preferred Language: Japanese Communication Ability: Impaired Communication Ability Comment: confusion [employer] Required: No Beliefs That Will Affect Care: None marital status: / Current Living Situation: Personal Care Facility Current Living Situation Comment: Assisted living current occupational status: retired How many Children do You have: 2 Other Information That Helps Us Care for You: No Feels Safe at Home: Yes Safety Concerns: Feels Safe At This Time Assistive Devices: Walker Review of Systems Review of Systems: Unobtainable due to cognitive status (Patient cannot recall any details leading to this admission.) Physical Exam Physical Exam: Elderly male, semireclined in bed. Multiple blankets on. He complains of cold but appears warm to touch. Skin color is pale but warm. Mild bitemporal wasting. Pupils are equal round and reactive to light. Extraocular movements are intact. There is a response to visual threat. Neck is supple and without stridor. Pharynx is pink and mucosa are moist. Dentition is fair. He does not have any obvious JVD. There is no anterior lymphadenopathy noted. Lungs are diminished but clear anteriorly. Heart tones are S1-S2 and I do not appreciate a murmur. Abdomen is soft, not distended, nontender to palpation, bowel sounds present throughout. He has some generalized weakness but strength is overall equal bilaterally. There is no gross edema noted. There is no mottling, clubbing or cyanosis. He is awake and alert to self. He recognizes he is in the hospital. He is less sure about the date. Results & Data ([facility]) Vital Signs (Past 12 Hours) Vital Signs Temp Pulse Resp BP Pulse Ox O2 Del Method 06/14/22 11:45 36.3 C L 88 23 171/83 H 94 Room Air 06/14/22 10:39 36.6 C 66 18 157/74 H 93 Room Air 06/14/22 06:00 36.4 C L 72 18 172/80 H 90 Room Air 06/14/22 03:47 177/74 H 06/14/22 02:48 36.8 C 58 L 20 172/85 H 92 Room Air Laboratory Results Data reviewed/see [facility] Diagnostic Findings Data reviewed/see [facility] PG Care Time/CCT Total # of Minutes Spent Total Time Spent: 60 Total Time Spent with Patient: Total time spent is greater than 50% in coordination of care (as documented) at patient's floor/unit and/or counseling patient: I spent 60 minutes overall addressing this case: 15 in medical data review/discussion with referring provider(s) and/or preparation for the visit 10 in direct interaction with the patient 20 Advance Care Planning/Goals of Care discussions as detailed above in note (must be >16min) 10 in subsequent review and synthesis of assessment and plan 5 in communicating with other providers regarding the patient's case: nursing, primary team Coding Level of Care Code New Pt INP/OBS CONSULT LVL 5, 80 MIN Patient Type New History Comprehensive Exam Comprehensive Medical Decision Making Moderate Complexity Diagnoses Palliative care encounter Z51.5 Advanced care planning/counseling discussion Z71.89 Metabolic encephalopathy G93.41 Acute respiratory failure with hypoxia J96.01 Sepsis A41.9 Sepsis acute organ dysfunction status: unspecified Sepsis type: sepsis due to unspecified organism Aspiration pneumonia J69.0 Generalized weakness R53.1
--- NOTE | 2022-06-14 15:34 | Hospitalist Progress Note ---
Date of Service June 14, 2022 Assessment & Plan (1) Metabolic encephalopathy: Plan: (1) Metabolic encephalopathy: Plan: 1. Acute metabolic encephalopathy likely secondary to pneumonia, possible sepsis Acute hypoxic respiratory failure, secondary to pneumonia Recently was in the hospital for a respiratory failure from congestive heart failure and aspiration pneumonia and also urinary tract infection. His altered mental status could be from the metabolic encephalopathy secondary to sepsis. Meets criteria for sepsis with elevated white count and also lactate initially was 2.1, repeat is 1.8. CT chest: 1. A few scattered foci of groundglass opacities which may represent pneumonia. Enlarged mediastinal lymph nodes are likely reactive. 2. Cardiomegaly and pulmonary hypertension, unchanged. Nasal MRSA: negative Blood cultures: Negative x24 hours Has aspiration pneumonia Continue with Meropenem + Doxycycline Day 2 Video swallowing confirmed aspiration Appreciate speech evaluation We will continue current antibiotic Clinically much better Appreciate palliative care consult UTI Urine culture is growing staph lugdunensis We will continue current antibiotic Clinically better 2. Chronic systolic congestive heart failure Chronic right heart failure, valvular heart disease with [id number] valvular aortic stenosis, ybtq-[id number] mitral regurgitation, m [id number] tricuspid regurgitation. Hold Lasix- patient on the dry side Convert metoprolol succinate to PO We will resume losartan and Imdur from today there is 06/14/2022 3.History of coronary artery disease, status post coronary artery bypass grafting History of atrial fibrillation, history of sick sinus syndrome, status post pacemaker: On Eliquis, aspirin, statin. ON Imdur, metoprolol with holding parameters.Currently po meds on hold. Close monitor. 4. Diabetes: . Insulin sliding scale. Pharmacy consult. 5. Benign prostatic hypertrophy: History of urinary retention, on Flomax and dutasteride. 6. Chronic anemia: Hemoglobin 12.6, will follow the labs.--> 11.6 7 Hyperlipidemia. 8 Gastroesophageal reflux disease: Continue home medications for now. 9. Mild elevation of troponin: Mostly demand ischemia.40 --> 34.9 10. Deep venous thrombosis prophylaxis: On Eliquis. Disposition Return to [facility] medically stable Admission and Anticipated Discharge Date Admission Date: June 11, 2022 Subjective 06/14/2022 The patient was seen and examined in telemetry unit He has been feeling a little better today Remains pleasantly confused but denies any acute discomfort Review of Systems Review of Systems: All systems reviewed and are unremarkable except as noted below Physical Exam Physical Exam: Lying in bed comfortable Constitutional: well developed, well nourished, + ill appearing and + obese Eyes: PERRL, conjunctivae normal, anicteric sclerae ENMT: external ear and nose normal, oropharynx normal Neck: trachea midline, no thyromegaly Respiratory: no respiratory distress Auscultation: + diminished lung sounds and + crackles (Minimal crackles at the bases) Cardiovascular: Rate/Rhythm: regular rate and regular rhythm; not tachycardic Heart Sounds: normal S1, normal S2 and + murmur (2/6 ESM over precordium) Gastrointestinal (Abdomen): Inspection/Auscultation: normal bowel sounds; abdo men not distended Percussion/Palpation: abdomen soft; abdomen nontender Musculoskeletal: No acute arthritis involving any joint Neurologic: Alert and awake. Pleasantly confused. Moves all extremities but generally weak Lymphatic: no cervical or axillary lymphadenopathy Results & Data Results & Data ([facility]) Vital Signs (Past 12 Hours) Vital Signs Temp Pulse Resp BP Pulse Ox O2 Del Method 06/14/22 15:22 36.8 C 62 18 159/79 H 95 Room Air 06/14/22 11:45 36.3 C L 88 23 171/83 H 94 Room Air 06/14/22 10:39 36.6 C 66 18 157/74 H 93 Room Air 06/14/22 06:00 36.4 C L 72 18 172/80 H 90 Room Air 06/14/22 03:47 177/74 H Laboratory Results Short CBC 06/14/22 Range/Units 08:13 WBC 10.46 (4.8-10.8) K/ul Hgb 12.2 L (14.0-18.0) g/dl Hct 37.6 L (40.1-51.0) % Plt Count 241 (130-400) K/uL BMP 06/14/22 08:13 Sodium 144 Potassium 3.7 Chloride 113 H Carbon Dioxide 25 BUN 27 H Creatinine 0.92 Glucose 143 H Calcium 8.8 Medications Administered Current Inpatient Medications Acetaminophen (Acetaminophen 325 Mg Tab) 650 mg PO Q4H PRN PRN Reason: Pain or Fever Stop: 07/11/22 22:36 Amlodipine Besylate (Amlodipine Besylate 5 Mg Tab) 5 mg PO DAILY [facility] Stop: 07/12/22 08:59 Last Admin: 06/12/22 09:53 Dose: Not Given Apixaban (Apixaban 2.5 Mg Tab) 2.5 mg PO BID [facility] Stop: 07/11/22 22:36 Last Admin: 06/12/22 09:53 Dose: Not Given Aspirin (Aspirin 81 Mg Ectab) 81 mg PO DAILY [facility] Stop: 07/12/22 08:59 Last Admin: 06/12/22 09:53 Dose: Not Given Calcium Carbonate (Calcium Carbonate 500 Mg Chewable Tab) 1,000 mg PO TID PRN PRN Reason: Indigestion Stop: 07/11/22 22:36 Dextrose (Dextrose 50% 50 Ml Syringe) 25 - 50 ml IV UD PRN; Protocol PRN Reason: Hypoglycemia Protocol Stop: 07/11/22 22:36 Furosemide (Furosemide 40 Mg Tab) 40 mg PO DAILY [facility] Stop: 07/12/22 08:59 Last Admin: 06/12/22 09:53 Dose: Not Given Glucagon (Glucagon For Inj 1 Mg Vial) 1 mg SQ UD PRN; Protocol PRN Reason: Hypoglycemia Protocol Stop: 07/11/22 22:36 Glucose (Glucose 40% Gel 15 Gm Tube) 15 - 30 gm PO UD PRN; Protocol PRN Reason: Hypoglycemia Protocol Stop: 07/11/22 22:36 Glucose (Glucose 10 Tab/Tube) 4 - 8 tab PO UD PRN; Protocol PRN Reason: Hypoglycemia Treatment Stop: 07/11/22 22:36 Meropenem 500 mg/ Syringe 10 mls @ 2 mls/min IV Q8H [facility]; Protocol Stop: 06/19/22 01:59 Last Admin: 06/14/22 11:03 Dose: 2 mls/min Daptomycin 300 mg/ Syringe 6 mls @ 3 mls/min IV Q24H [facility]; Protocol Stop: 06/22/22 09:59 Last Admin: 06/14/22 11:03 Dose: 3 mls/min Doxycycline Hyclate 100 mg/ (Dextrose) 110 mls @ 50 mls/hr IV Q12H [facility] Stop: 06/19/22 07:59 Last Infusion: 06/14/22 10:49 Dose: Infused Insulin Aspart (Insulin Aspart Per Unit) 0 units SC ACHS [facility] Stop: 07/14/22 12:14 Last Admin: 06/14/22 13:09 Dose: 4 units Isosorbide Mononitrate (Isosorbide Wilcox Extended Rel 60 Mg Tabcr) 60 mg PO DAILY [facility] Stop: 07/12/22 08:59 Last Admin: 06/12/22 09:54 Dose: Not Given Losartan Potassium (Losartan Potassium 50 Mg Tab) 50 mg PO DAILY [facility] Stop: 07/12/22 08:59 Last Admin: 06/12/22 09:54 Dose: Not Given Metoprolol Succinate (Metoprolol Succ 50mg Ext Rel Tab) 50 mg PO QAM [facility] Stop: 07/12/22 08:59 Last Admin: 06/12/22 09:54 Dose: Not Given Miscellaneous (Dutasteride: Order Awaiting Action) 1 each N/A QS [facility] Stop: 07/12/22 07:59 Last Admin: 06/14/22 08:26 Dose: Not Given Miscellaneous (Carbohydrates For Hypoglycemia ) 15 - 30 gm PO UD PRN PRN Reason: Hypoglycemia Protocol Stop: 07/11/22 22:36 Miscellaneous Information (Pharmacy Glycemic Mgmt Consult) 1 each N/A UD PRN PRN Reason: Consult Stop: 07/11/22 22:36 Nitroglycerin (Nitroglycerin Sl 0.4 Mg/Tab Tab) 0.4 mg SL UD PRN PRN Reason: Chest Pain Stop: 07/11/22 22:36 Pantoprazole Sodium (Pantoprazole 40 Mg Tab) 40 mg PO DAILY [facility] Stop: 07/12/22 08:59 Last Admin: 06/14/22 08:25 Dose: 40 mg Polyethylene Glycol (Polyethylene (Miralax) 17 Gm Pack) 17 gm PO DAILY PRN PRN Reason: Constipation Stop: 07/11/22 22:36 Tamsulosin HCl (Tamsulosin Hcl 0.4 Mg Cap) 0.4 mg PO DAILY [facility] Stop: 07/12/22 08:59 Last Admin: 06/12/22 09:54 Dose: Not Given
[2022-06-14] MEDS ORDERED: INSULIN ASPART PER UNIT SC SCH (16:30)
[2022-06-15] MEDS: MEROPENEM 500 MG in SYRINGE 0 ML IV SCH ×3 (02:18→17:22)
[2022-06-15] MEDS: DOXYCYCLINE HYCLATE 100 MG in DEXTROSE 5% 100 ML IV SCH (07:58)
[2022-06-15 08:13] LABS: Basophils # (auto) 0.05 K/uL (0-0.2); Basophils % (auto) 0.5 %; Eosinophils # (auto) 0.82 K/uL (0-0.50); Eosinophils % (auto) 8.1 %; Hematocrit (blood only) 36.7 % (40.1-51.0); Hemoglobin 12.1 g/dl (14.0-18.0); Immature Granulocytes # (auto) 0.04 K/uL (0.00-0.02); Immature Granulocytes % (auto) 0.4 %; Lymphocytes # (auto) 2.47 K/uL (1.2-3.4); Lymphocytes % (auto) 24.5 %; Mean Corpuscular Hemoglobin 29.2 pg (25.0-34.0); Mean Corpuscular Volume 88.6 fL (80.0-100.0); Mean Platelet Volume 10.7 fL (9.4-12.4); Monocytes # (auto) 0.92 K/uL (0.24-0.82); Monocytes % (auto) 9.1 %; Neutrophils # (auto) 5.79 K/uL (1.4-6.5); Neutrophils % (auto) 57.4 %; Platelet Count 255 K/uL (130-400); RDW Coefficient of Variation 15.9 % (11.5-14.5); RDW Standard Deviation 51.2 fL (36.4-46.3); Red Blood Count 4.14 M/uL (4.63-6.08); White Blood Count 10.09 K/ul (4.8-10.8)
[2022-06-15] MEDS: INSULIN ASPART PER UNIT SC SCH ×4 (08:15→20:27)
[2022-06-15] MEDS: LOSARTAN POTASSIUM 50 MG TAB PO SCH (08:16)
[2022-06-15] MEDS: PANTOprazole 40 MG TAB PO SCH (08:16)
[2022-06-15] MEDS: ISOSORBIDE MONO EXTENDED REL 60 MG TABCR PO SCH (08:16)
[2022-06-15] MEDS: LANTUS PER UNIT CHARGE SQ SCH (08:34)
[2022-06-15 08:56] LABS: BUN Creatinine Ratio 28.2 (10-20); Calcium 8.9 mg/dl (8.5-10.1); Creatinine Clr Calc Pharmacy 67.2 ml/min; Est GFR (African American) 90.8 ml/min; Est GFR (Non-African American) 78.3 ml/min; Potassium 3.6 mmol/L (3.5-5.1)
--- NOTE | 2022-06-15 09:48 | Hospitalist Progress Note ---
Date of Service June 15, 2022 Assessment & Plan (1) Metabolic encephalopathy: Plan: (1) Metabolic encephalopathy: Plan: 1. Acute metabolic encephalopathy likely secondary to pneumonia, possible sepsis Acute hypoxic respiratory failure, secondary to pneumonia Recently was in the hospital for a respiratory failure from congestive heart failure and aspiration pneumonia and also urinary tract infection. His altered mental status could be from the metabolic encephalopathy secondary to sepsis. Meets criteria for sepsis with elevated white count and also lactate initially was 2.1, repeat is 1.8. CT chest: 1. A few scattered foci of groundglass opacities which may represent pneumonia. Enlarged mediastinal lymph nodes are likely reactive. 2. Cardiomegaly and pulmonary hypertension, unchanged. Nasal MRSA: negative Blood cultures: Negative x24 hours Has aspiration pneumonia Continue with Meropenem + Doxycycline Day 2 Video swallowing confirmed aspiration Appreciate speech evaluation We will continue current antibiotic with daptomycin and doxycycline Clinically much better Appreciate palliative care consult No new symptoms and remains stable UTI Urine culture is growing staph lugdunensis We will continue current antibiotic Sensitive to daptomycin and will continue current antibiotic 2. Chronic systolic congestive heart failure Chronic right heart failure, valvular heart disease with [id number] valvular aortic stenosis, [id number] mitral regurgitation, [id number] tricuspid regurgitation. Hold Lasix- patient on the dry side Convert metoprolol succinate to PO We will resume losartan and Imdur from today there is 06/14/2022 Remains euvolemic clinically 3.History of coronary artery disease, status post coronary artery bypass grafting History of atrial fibrillation, history of sick sinus syndrome, status post pacemaker: On Eliquis, aspirin, statin. ON Imdur, metoprolol with holding parameters.Currently po meds on hold. Close monitor. 4. Diabetes: . Insulin sliding scale. Pharmacy consult. 5. Benign prostatic hypertrophy: History of urinary retention, on Flomax and dutasteride. 6. Chronic anemia: Hemoglobin 12.6, will follow the labs.--> 11.6 7 Hyperlipidemia. 8 Gastroesophageal reflux disease: Continue home medications for now. 9. Mild elevation of troponin: Mostly demand ischemia.40 --> 34.9 10. Deep venous thrombosis prophylaxis: On Eliquis. Disposition Return to [facility] medically stable Admission and Anticipated Discharge Date Admission Date: June 11, 2022 Subjective 06/14/2022 The patient was seen and examined in telemetry unit He has been feeling a little better today Remains pleasantly confused but denies any acute discomfort 06/15/2022 Patient was seen and examined in telemetry unit He has been stable without any acute distress Remains pleasantly confused Denies any symptoms Review of Systems Review of Systems: All systems reviewed and are unremarkable except as noted below Physical Exam Physical Exam: Lying in bed comfortable Constitutional: well developed, well nourished, + ill appearing and + obese Eyes: PERRL, conjunctivae normal, anicteric sclerae ENMT: external ear and nose normal, oropharynx normal Neck: trachea midline, no thyromegaly Respiratory: no respiratory distress Auscultation: + diminished lung sounds and + crackles (Minimal crackles at the bases) Cardiovascular: Rate/Rhythm: regular rate and regular rhythm; not tachycardic Heart Sounds: normal S1, normal S2 and + murmur (2/6 ESM over precordium) Gastrointestinal (Abdomen): Inspection/Auscultation: normal bowel sounds; abdomen not distended Percussion/Palpation: abdomen soft; abdomen nontender Musculoskeletal: No acute arthritis involving any joint Neurologic: normal touch/pain/proprioception, moves all extremities and + confused (Pleasantly confused); no focal motor deficits Lymphatic: no cervical or axillary lymphadenopathy Results & Data Results & Data ([facility] [place]) Vital Signs (Past 12 Hours) Vital Signs Temp Pulse Pulse Resp BP BP Pulse Ox 06/15/22 08:00 06/15/22 07:10 36.4 C L 61 19 172/88 H 93 06/15/22 03:56 36.4 C L 64 20 176/82 H 95 06/14/22 23:12 36.6 C 63 18 169/88 H 95 06/14/22 22:57 64 O2 Del Method 06/15/22 08:00 Nasal Cannula 06/15/22 07:10 Room Air 06/15/22 03:56 Room Air 06/14/22 23:12 Room Air 06/14/22 22:57 Laboratory Results Short CBC 06/15/22 Range/Units 07:16 WBC 10.09 (4.8-10.8) K/ul Hgb 12.1 L (14.0-18.0) g/dl Hct 36.7 L (40.1-51.0) % Plt Count 255 (130-400) K/uL BMP 06/15/22 07:16 Sodium 141 Potassium 3.6 Chloride 110 H Carbon Dioxide 25 BUN 24 H Creatinine 0.85 Glucose 171 H Calcium 8.9 Medications Administered Current Inpatient Medications Acetaminophen (Acetaminophen 325 Mg Tab) 650 mg PO Q4H PRN PRN Reason: Pain or Fever Stop: 07/11/22 22:36 Amlodipine Besylate (Amlodipine Besylate 5 Mg Tab) 5 mg PO DAILY [facility] Stop: 07/12/22 08:59 Last Admin: 06/12/22 09:53 Dose: Not Given Apixaban (Apixaban 2.5 Mg Tab) 2.5 mg PO BID [facility] Stop: 07/11/22 22:36 Last Admin: 06/12/22 09:53 Dose: Not Given Aspirin (Aspirin 81 Mg Ectab) 81 mg PO DAILY [facility] Stop: 07/12/22 08:59 Last Admin: 06/12/22 09:53 Dose: Not Given Calcium Carbonate (Calcium Carbonate 500 Mg Chewable Tab) 1,000 mg PO TID PRN PRN Reason: Indigestion Stop: 07/11/22 22:36 Dextrose (Dextrose 50% 50 Ml Syringe) 25 - 50 ml IV UD PRN; Protocol PRN Reason: Hypoglycemia Protocol Stop: 07/11/22 22:36 Furosemide (Furosemide 40 Mg Tab) 40 mg PO DAILY [facility]ISSA Stop: 07/12/22 08:59 Last Admin: 06/12/22 09:53 Dose: Not Given Glucagon (Glucagon For Inj 1 Mg Vial) 1 mg SQ UD PRN; Protocol PRN Reason: Hypoglycemia Protocol Stop: 07/11/22 22:36 Glucose (Glucose 40% Gel 15 Gm Tube) 15 - 30 gm PO UD PRN; Protocol PRN Reason: Hypoglycemia Protocol Stop: 07/11/22 22:36 Glucose (Glucose 10 Tab/Tube) 4 - 8 tab PO UD PRN; Protocol PRN Reason: Hypoglycemia Treatment Stop: 07/11/22 22:36 Meropenem 500 mg/ Syringe 10 mls @ 2 mls/min IV Q8H CLARISSA; Protocol Stop: 06/19/22 01:59 Last Admin: 06/15/22 02:18 Dose: 2 mls/min Daptomycin 300 mg/ Syringe 6 mls @ 3 mls/min IV Q24H CL[facility]ISSA; Protocol Stop: 06/22/22 09:59 Last Admin: 06/14/22 11:03 Dose: 3 mls/min Doxycycline Hyclate 100 mg/ (Dextrose) 110 mls @ 50 mls/hr IV Q12H [facility] Stop: 06/19/22 07:59 Last Admin: 06/15/22 07:58 Dose: 50 mls/hr Insulin Aspart (Insulin Aspart Per Unit) 0 units SC ACHS [facility] Stop: 07/14/22 12:14 Last Admin: 06/15/22 08:15 Dose: 6 units Insulin Glargine (Lantus Per Unit Charge) 10 units SQ DAILY [facility] Stop: 07/15/22 08:59 Last Admin: 06/15/22 08:34 Dose: 10 units Isosorbide Mononitrate (Isosorbide [place] Extended Rel 60 Mg Tabcr) 60 mg PO DAILY [facility] Stop: 07/12/22 08:59 Last Admin: 06/15/22 08:16 Dose: 60 mg Losartan Potassium (Losartan Potassium 50 Mg Tab) 50 mg PO DAILY [facility] Stop: 07/12/22 08:59 Last Admin: 06/15/22 08:16 Dose: 50 mg Metoprolol Succinate (Metoprolol Succ 50mg Ext Rel Tab) 50 mg PO QAM [facility] Stop: 07/12/22 08:59 Last Admin: 06/12/22 09:54 Dose: Not Given Miscellaneous (Dutasteride: Order Awaiting Action) 1 each N/A QS [facility] Stop: 07/12/22 07:59 Last Admin: 06/15/22 08:14 Dose: Not Given Miscellaneous (Carbohydrates For Hypoglycemia ) 15 - 30 gm PO UD PRN PRN Reason: Hypoglycemia Protocol Stop: 07/11/22 22:36 Miscellaneous Information (Pharmacy Glycemic Mgmt Consult) 1 each N/A UD PRN PRN Reason: Consult Stop: 07/11/22 22:36 Nitroglycerin (Nitroglycerin Sl 0.4 Mg/Tab Tab) 0.4 mg SL UD PRN PRN Reason: Chest Pain Stop: 07/11/22 22:36 Pantoprazole Sodium (Pantoprazole 40 Mg Tab) 40 mg PO DAILY [facility] Stop: 07/12/22 08:59 Last Admin: 06/15/22 08:16 Dose: 40 mg Polyethylene Glycol (Polyethylene (Miralax) 17 Gm Pack) 17 gm PO DAILY PRN PRN Reason: Constipation Stop: 07/11/22 22:36 Tamsulosin HCl (Tamsulosin Hcl 0.4 Mg Cap) 0.4 mg PO DAILY [facility] Stop: 07/12/22 08:59 Last Admin: 06/12/22 09:54 Dose: Not Given
[2022-06-15] MEDS: DAPTOmycin 300 MG in SYRINGE 0 ML IV SCH (10:05)
[2022-06-15] MEDS: SULFAMETHOXAZOLE/TRIMETHOPRIM DS 800/160MG TAB PO SCH (20:28)
[2022-06-15] MEDS: DOXYCYCLINE HYCLATE 100 MG CAP PO SCH (20:29)
[2022-06-16] MEDS: MEROPENEM 500 MG in SYRINGE 0 ML IV SCH ×2 (02:30→11:03)
[2022-06-16 07:10] LABS: Basophils # (auto) 0.06 K/uL (0-0.2); Basophils % (auto) 0.5 %; Eosinophils # (auto) 0.84 K/uL (0-0.50); Eosinophils % (auto) 7.5 %; Hematocrit (blood only) 38.5 % (40.1-51.0); Hemoglobin 12.5 g/dl (14.0-18.0); Immature Granulocytes # (auto) 0.06 K/uL (0.00-0.02); Immature Granulocytes % (auto) 0.5 %; Lymphocytes % (auto) 27.5 %; Mean Corpuscular Hemoglobin 29.4 pg (25.0-34.0); Mean Corpuscular Hgb Conc 32.5 g/dL (32.0-36.0); Mean Corpuscular Volume 90.6 fL (80.0-100.0); Mean Platelet Volume 10.8 fL (9.4-12.4); Monocytes # (auto) 0.95 K/uL (0.24-0.82); Monocytes % (auto) 8.4 %; Neutrophils # (auto) 6.26 K/uL (1.4-6.5); Neutrophils % (auto) 55.6 %; Platelet Count 273 K/uL (130-400); RDW Coefficient of Variation 16.1 % (11.5-14.5); RDW Standard Deviation 53.6 fL (36.4-46.3); Red Blood Count 4.25 M/uL (4.63-6.08); White Blood Count 11.27 K/ul (4.8-10.8)
[2022-06-16 07:25] LABS: Calcium 9.4 mg/dl (8.5-10.1); Creatinine Clr Calc Pharmacy 69.7 ml/min; Est GFR (African American) 92.2 ml/min; Est GFR (Non-African American) 79.5 ml/min; Potassium 3.9 mmol/L (3.5-5.1)
--- NOTE | 2022-06-16 08:36 | Pharmacy Report ---
Pharmacy Glycemic Short Note 2 - Date of Service June 16, 2022 - Glycemic Short BSG Results (Last 24 hours): 06/15/22 06/15/22 06/15/22 07:16 11:35 16:06 Glucose 171 H POC Glucose 130 H 133 H 06/15/22 06/16/22 06/16/22 19:59 06:18 07:03 Glucose 124 H POC Glucose 106 H 122 H OUTPATIENT ANTIDIABETIC REGIMEN: * Lantus 18 units SC BID * Novolog 5 units SC TIDM HbA1c: 7.7% (06/12/22) ASSESSMENT: 06/16/22 * Blood sugars well controlled over last 24 hours, increased basal yesterday with advancing diet. Continue insulin as ordered. * Pt remains on meropenem IV, doxy + bactrim PO, for pneumonia + UTI 06/14/22 * Patient has continued receiving daptomycin, meropenem, doxycycline and a new start of D5W/NS fluid yesterday evening. NPO to diet today * BSG yesterday was 85 -101 mg/dL. FBSG this morning is 145 mg/dL. Rise in BSG today may have been caused by fluid started yesterday * No insulin was administered yesterday but with BSG beginning to trend up, will add basal 06/13/22 * AH is an 87 year old male who presented to ED yesterday evening with altered mental status * Recently discharged from hospital on 06/10/22 (treated for CHF, aspiration pneumonia, UTI at that time) * Broad spectrum antibiotics initiated upon admission (currently receiving daptomycin, meropenem, and doxycycline) * Received 15 units of Lantus last evening (BSGs of 221 and 149 mg/dL yesterday) * Based on prior inpatient data, 15-20 units of Lantus/day likely reasonable with diet ordered * Fasting BSG of 111 mg/dL this morning * Will decrease Lantus this evening given NPO status and to decrease likelihood of hypoglycemia PLAN FOR INPATIENT GLYCEMIC CONTROL: * Basal insulin * Lantus 10 units SQ daily * Bolus insulin * NovoLog per scale ACHS or Q6hrs while NPO * Goal Range: Low 110 mg/dL - High 140 mg/dL * Correction Factor: 30 mg/dL/unit * Nutritional / Prandial insulin per carb ratio of 1 unit per 10 grams CHO consumed
[2022-06-16] MEDS: INSULIN ASPART PER UNIT SC SCH ×2 (08:41→12:19)
[2022-06-16] MEDS: LANTUS PER UNIT CHARGE SQ SCH (08:42)
[2022-06-16] MEDS: SULFAMETHOXAZOLE/TRIMETHOPRIM DS 800/160MG TAB PO SCH (11:03)
[2022-06-16] MEDS: PANTOprazole 40 MG TAB PO SCH (11:03)
[2022-06-16] MEDS: LOSARTAN POTASSIUM 50 MG TAB PO SCH (11:03)
[2022-06-16] MEDS: DOXYCYCLINE HYCLATE 100 MG CAP PO SCH (11:03)
[2022-06-16] MEDS: ISOSORBIDE MONO EXTENDED REL 60 MG TABCR PO SCH (11:03)
--- NOTE | 2022-06-16 12:45 | Discharge Summary ---
Date of Service June 16, 2022 Admission HPI Per Admitting Provider DATE OF ADMISSION: 06/11/2022. CHIEF COMPLAINT: Altered mental status. HISTORY OF PRESENT ILLNESS: This is an 87-year-old male with past medical history significant for insulin-dependent diabetes; heart failure with preserved ejection fraction; CAD status post CABG; AFib, on Eliquis; history of chronic indwelling catheter, but was now taken off because of recurrent UTI; history of urinary incontinence; dementia; sick sinus syndrome, status post pacemaker; hypertension; hyperlipidemia, currently living at [facility] in [place],was brought in because of altered mental status. The patient was recent ly in the hospital, was admitted on 06/05/2022 and discharged on 06/10/2022. At that time, he was treated for acute respiratory failure with hypoxia secondary to pshjr-[id number]-[id number] systolic CHF, valvular heart disease, aspiration pneumonia, and was given IV Lasix and transitioned to p.o. Lasix. Had two step, did not qualify for oxygen. Was treated with daptomycin for 3 days for UTI, got discharged on cefdinir and Flagyl. The patient is currently staring but not answering any questions. States he is doing okay, but he does not anwer any other questions. He seems to have some cough. His hemodynamics are stable. In the ER, he is saturating okay on 2 liters. Not able to reach the daughter, left a voice mail. As per the [facility], the patient has become more lethargic and altered mental status. They could not even check his blood sugars and vitals because the patient seemed to be scared and was not eating anything today. Prior to that, he was on regular diet. He is able to ambulate with a walker. Could not get much of the history currently. ALLERGIES: SHELLFISH, PLAVIX, PENICILLINS. PAST MEDICAL HISTORY: As mentioned above. 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 FAMILY HISTORY: Currently noncontributory. SOCIAL HISTORY: Former smoker as per records. History of alcohol use, beer. Currently living at [facility]. MEDICATIONS: The patient is on Tylenol 650 mg p.o. q. 6 hours p.r.n., amlodipine 5 mg p.o. daily, aspirin 81 mg p.o. daily, atorvastatin 40 mg p.o. daily, Tums 1200 mg p.o. t.i.d. p.r.n., cefdinir 300 mg p.o. b.i.d. for four more days, dutasteride 0.5 mg p.o. daily, Eliquis 2.5 mg p.o. b.i.d., Lasix 40 mg p.o. daily, NovoLog 5 units subcutaneous t.i.d., Lantus 18 units subcutaneous b.i.d., isosorbide mononitrate 60 mg p.o. daily, losartan 50 mg p.o. daily, methenamine hippurate 1 g p.o. daily, metoprolol succinate 50 mg p.o. daily, metronidazole 500 mg p.o. b.i.d. for four more days, Macrobid 100 mg p.o. b.i.d. for 3 more days, nitroglycerin 0.4 mg sublingual p.r.n., Protonix 40 mg p.o. daily, Flomax 0.4 mg p.o. daily. REVIEW OF SYSTEMS: Unobtainable at this time, the patient is confused. Admission Exam Per Admitting Provider GENERAL: The patient is confused, not answering any questions except saying he is okay. Not oriented. VITAL SIGNS: Temperature 36.7, pulse 66, respiratory rate 27, blood pressure 142/70, oxygen 97% on 2 liters, it was 88% on room air. HEENT: Pupils equal, round and reactive to light. Oral mucosa moist. NECK: No JVD, no neck masses. CARDIOVASCULAR: S1 and S2 heard. Regular rate and rhythm. No murmur, no gallop. RESPIRATORY SYSTEM: Normal AP diameter. Mild rhonchi. No wheezing. ABDOMEN: Soft, bowel sounds present, nontender. No distention. CENTRAL NERVOUS SYSTEM: The patient is not oriented, confused, not answering any questions, not obeying commands. EXTREMITIES: Bilateral lower extremity pedal edema present, no erythema seen. Principal Diagnosis Acute metabolic encephalopathy likely secondary to pneumonia Concern for aspiration pneumonia UTI Discharge Exam GENERAL: Alert and awake. NAD, on RA. Pleasantly confused. HEENT: No pallor, no icterus. Pupils equal, round and reactive to light. Oral mucosa moist. NECK: No JVD, no neck masses. HEART: S1 and S2 heard. Regular rate and rhythm. No murmur, no gallop. RESPIRATORY SYSTEM: Normal AP diameter. No accessory muscle use. No wheezing, occ basal crackles. ABDOMEN: Soft, bowel sounds present, nontender, no distention. CENTRAL NERVOUS SYSTEM: No facial droop. Speech is clear. Obeys simple commands. Moves extremities. EXTREMITIES: No edema, no erythema seen. Discharge Data Allergies Allergy/AdvReac Type Severity Reaction Status Date / Time shellfish derived Allergy Severe anaphylaxis Verified 06/05/22 16:36 clopidogrel Allergy Intermediate INTERNAL Verified 06/05/22 16:36 HIVES Penicillins Allergy Intermediate HIVES Verified 06/14/22 08:27 Consultations 06/14/22 10:15 Consult Palliative Care Routine Ordered Studies 06/11/22 17:30 CT head/brain wo con Stat 06/12/22 07:39 CT chest diagnostic wo con Routine 06/14/22 10:00 FL video swallow Urgent Hospital Course (1) Metabolic encephalopathy: 87-year-old male was managed for the following while in hospital: Per prior attending w/ addendum (1) Metabolic encephalopathy: Plan: 1. Acute metabolic encephalopathy likely secondary to pneumonia, possible sepsis Acute hypoxic respiratory failure, secondary to pneumonia Recently was in the hospital for a respiratory failure from congestive heart failure and aspiration pneumonia and also urinary tract infection. His altered mental status could be from the metabolic encephalopathy secondary to sepsis. Meets criteria for sepsis with elevated white count and also lactate initially was 2.1, repeat is 1.8. CT chest: 1. A few scattered foci of groundglass opacities which may represent pneumonia. Enlarged mediastinal lymph nodes are likely reactive. 2. Cardiomegaly and pulmonary hypertension, unchanged. Nasal MRSA: negative Blood cultures: Negative x24 hours Has aspiration pneumonia Continue with Meropenem + Doxycycline Day 2 Video swallowing confirmed aspiration Appreciate speech evaluation We will continue current antibiotic with daptomycin and doxycycline Clinically much better Appreciate palliative care consult No new symptoms and remains stable Addendum: Meropenem changed to clinda on DC to cover for aspiration pna. Probiotic added. Pt to f/u w/ PCP and set up for formal neurocognitive and geriatric psychiatric evaluation. Might benefit from ongoing palliative care relation as outpatient. UTI Urine culture is growing staph lugdunensis We will continue current antibiotic Sensitive to daptomycin and will continue current antibiotic Addendum: Pt on Bactrim per Urine C/S at DC, to complete the course. probiotic added. 2. Chronic systolic congestive heart failure Chronic right heart failure, valvular heart disease with [id number]-vz-trvllgjs valvular aortic stenosis, eerr-rk-[id number] mitral regurgitation, hkyuwrpu-xq-ezravf tricuspid regurgitation. Hold Lasix- patient on the dry side Convert metoprolol succinate to PO We will resume losartan and Imdur from today there is 06/14/2022 Remains euvolemic clinically Addendum: Euvolemic, continue with home meds. 3.History of coronary artery disease, status post coronary artery bypass grafting History of atrial fibrillation, history of sick sinus syndrome, status post pacemaker: On Eliquis, aspirin, statin. ON Imdur, metoprolol with holding parameters.Currently po meds on hold. Close monitor. 4. Diabetes: . Insulin sliding scale. Pharmacy consult. 5. Benign prostatic hypertrophy: History of urinary retention, on Flomax and dutasteride. 6. Chronic anemia: Hemoglobin 12.6, will follow the labs.--> 11.6 7 Hyperlipidemia. 8 Gastroesophageal reflux disease: Continue home medications for now. 9. Mild elevation of troponin: Mostly demand ischemia.40 --> 34.9 10. Deep venous thrombosis prophylaxis: On Eliquis. Disposition Return to [facility] medically stable Patient being discharged to [facility] with following instruction at the point of discharge. Follow-up with the primary care physician within a week time and likely you will need labs CBC/CMP/magnesium/phosphorus. For concern of aspiration pneumonia, you are being discharged on antibiotic, complete the course, follow-up with speech therapy as an outpatient. For your urinary tract infection, you are being discharged on another antibiotic, complete the course. You will benefit from formal neurocognitive and geriatric psychiatric evaluation once you are out of your acute illness. You will need to coordinate with your primary care office regarding setting up of this test. Establish and maintain follow-up with palliative care as an outpatient. Take your medications as prescribed. Please make sure that you are able to get your medications today by calling your pharmacy before you leave the hospital so that your treatment continuity is not broken. Home Health Attestation I certify that this patient is under my care and that I, or a physicians customer care assistant working with me, had a face to-face encounter that meets the home health [id number]-[id number] encounter requirements with this patient. The encounter with the patient was in whole, or in part, for the following medical condition, which is the primary reason for home health care (list medical condition): I certify that, based on my findings, the following services are medically necessary home health services: My clinical findings support the need for the above services because: Further, I certify that my clinical findings support that this patient is homebound (i.e. absences from home require considerable and taxing effort and are for medical reasons or christian services or infrequently or of short duration when for other reasons) because: Certification for Home Health Services: Based on the above findings, I certify that this patient is confined to the home and needs intermittent assisted care, physical therapy and/or speech therapy or continues to need occupational therapy. The patient is under my care, and I have initiated the establishment of the plan of care. This patient will be followed by a physician who will periodically review the plan of care. Total Time Total Time Spent Total Time Spent (In Minutes): 45 Discharge Plan Discharge Items Patient Disposition: Personal Shelter Reason For Visit: AMS Discharge Diagnosis: Acute metabolic encephalopathy likely secondary to pneumonia Concern for aspiration pneumonia UTI Activity: Resume your previous activity Activity Comment: Continue with physical therapy and Occupational Therapy. Non-emergency contact: Primary Care Provider Call non-emergency contact if: you have any medication questions, your symptoms worsen and your temperature is above 101 Follow-up/Referrals: [facility] BOBBY LUTZ [Primary Care Provider] - Diet: Carb Consistent or DM2 and Heart Healthy Addtl Attending Provider Instructions: Follow-up with the primary care physician within a week time and likely you will need labs CBC/CMP/magnesium/phosphorus. For concern of aspiration pneumonia, you are being discharged on antibiotic, complete the course, follow-up with speech therapy as an outpatient. For your urinary tract infection, you are being discharged on another antibiotic, complete the course. You will benefit from formal neurocognitive and geriatric psychiatric evaluation once you are out of your acute illness. You will need to coordinate with your primary care office regarding setting up of this test. Establish and maintain follow-up with palliative care as an outpatient. Take your medications as prescribed. Please make sure that you are able to get your medications today by calling your pharmacy before you leave the hospital so that your treatment continuity is not broken. Pending Studies at Discharge: Yes (Admitting blood culture final results.) Stand-Alone Forms: My [employer], Smoking Cessation Skilled Items Patient informed of condition?: Yes DNR: Yes Discharge Level of Care: Other Communicable Disease: No Discharge Prognosis: Stable Lines: None Urinary Catheter: No Medications and DC Order Prescriptions: New sulfamethoxazole-trimethoprim [Bactrim DS] 800-160 mg Tablet 1 tab PO Q12 7 Days Qty: 14 0RF clindamycin HCl 300 mg capsule 300 mg PO Q8H 5 Days Qty: 15 0RF Probiotic 3 billion cell capsule 3,000 mmu cells PO DAILY 14 Days Qty: 14 0RF Rx Instructions: administer with a meal Continued losartan 50 mg Tablet 50 mg PO DAILY furosemide [Lasix] 40 mg Tablet 40 mg PO DAILY atorvastatin 40 mg Tablet 40 mg PO DAILY acetaminophen [Tylenol] 325 mg Tablet 650 mg PO Q6 MDD 3g PRN (Reason: Pain) metoprolol succinate 50 mg Tablet Extended Release 24 Hr 50 mg PO QAM calcium carbonate [Tums E-X] 300 mg (750 mg) Tablet,Chewable 1,200 mg PO TID PRN (Reason: Indigestion) Rx Instructions: chew 2 tablets amlodipine 5 mg Tablet 5 mg PO DAILY aspirin 81 mg Tablet,Delayed Release (Dr/Ec) 81 mg PO DAILY isosorbide mononitrate 60 mg Tablet Extended Release 24 Hr 60 mg PO DAILY tamsulosin 0.4 mg Capsule 0.4 mg PO DAILY pantoprazole 40 mg Tablet,Delayed Release (Dr/Ec) 40 mg PO DAILY nitroglycerin [Nitrostat] 0.4 mg Tablet, Sublingual 0.4 mg sublingual DIRECTED PRN (Reason: Chest Pain) Rx Instructions: dissolve under tongue as needed for chest pain, may repeat every 5 minutes x 3 dose dutasteride 0.5 mg Capsule 0.5 mg PO DAILY insulin aspart U-100 [Novolog FlexPen U-100 Insulin] 100 unit/mL (3 mL) I nsulin Pen 5 unit SUBCUT TID insulin glargine [Lantus Solostar U-100 Insulin] 100 unit/mL (3 mL) Insulin Pen 18 unit SUBCUT BID Eliquis 2.5 mg Tablet 2.5 mg PO BID Rx Instructions: 8 am and 8 pm Discontinued methenamine hippurate 1 gram tablet 1 g PO DAILY Qty: 90 3RF nitrofurantoin monohyd/m-cryst 100 mg capsule 100 mg PO BID 3 Days Qty: 6 0RF Rx Instructions: must administer with a meal/food ordered 06/10/22 take x 3 days cefdinir 300 mg capsule 300 mg PO BID 4 Days Qty: 8 0RF Rx Instructions: written 06/10/2022 take x 4 days metronidazole 500 mg tablet 500 mg PO BID Qty: 8 0RF Rx Instructions: ordered 06/10/22 take X 4 days Discharge Orders: Discharge Order (Routine); Ordered 06/16/22 Ordered By: Alta Mims Admission Data Admit Date/Time: 06/11/22 20:58 Attending Provider: Alta Mims Admit Provider: Abdiel Richardson Primary Care Provider: STATE NELDA BOBBY Other Providers: Adam Mosher ; Dhruv Blandon ; Maria Ines Hernández
[2022-06-16] MEDS ORDERED: LANTUS PER UNIT CHARGE SQ SCH (21:00)
== END 2022-06-16 13:05 | disposition home or self-care (01) | DRG 871 ==
LOC: ED 16:48 → SUATTDRO 20:58 → 2S 20:58

== ENCOUNTER 2022-09-21 16:09 | Inpatient (IN) ==
[2022-09-21] MEDS ORDERED: SODIUM CHLORIDE 0.9% 1000ML 500 ML IV ONE (16:14)
--- NOTE | 2022-09-21 16:20 | Emergency Department Note ---
Impression & Plan Acute alteration in mental status, Fall, Acetabular fracture, Closed pelvic fracture, Pulmonary edema, Acute hypotension ED Provider Note NAME: ANTOINETTE AHUMADA AGE: 87 SEX: M : 1935 ARRIVES VIA: Ambulance INFORMANT: The patient's daughter, EMS , ED PROVIDER(S): Chaim Wells DO CHIEF COMPLAINT: Altered mental status HPI: The patient is an 87-year-old male who presented to the emergency department by ambulance from his personal senior living. The patient is currently a DNR. He has a history of advanced dementia. He also has vascular disease and sick sinus syndrome. He does have a pacemaker. He also takes blood thinners. Apparently the patient had an unwitnessed fall. He was found in his room on the floor. There was damage to the room. He was on the floor not breathing and cyanotic. His daughter was called immediately but apparently when they rolled the patient over and suction his airway he started having spontaneous respirations. The patient did not receive CPR. The patient arrived immobilized with a cervical collar in place. The patient himself does not offer any complaints. Reportedly the patient had upper extremity pain. It is unclear if the patient had loss of consciousness seizure or other mental status change compared to baseline. At this time according to his daughter he does appear to be at baseline. ROS: See above HPI for pertinent positives & negatives. A total of 10 systems reviewed and were otherwise negative. PAST MEDICAL HISTORY: See Below PAST SURGICAL HISTORY: See Below FAMILY HISTORY: See Below SOCIAL HISTORY: See Below HOME MEDICATIONS: See Below ALLERGIES: See Below VITALS: See Below PHYSICAL EXAMINATION: GENERAL: The patient is awake and alert. He answers questions slowly. EYES: The conjunctivae are clear. The pupils are round and reactive. EARS, NOSE, MOUTH AND THROAT: The nose is without any evidence of any deformity. Mucous membranes are moist. NECK: Rigid cervical collar was in place. RESPIRATORY: Breath sounds are noted throughout. There is crackles in all lung garcia. CARDIOVASCULAR: Regular rate and rhythm noted there no murmurs rubs or gallops normal S1 normal S2. GASTROINTESTINAL: The abdomen is distended. There is right lower quadrant tenderness to palpation which is moderate. BACK: No midline tenderness or or step-off noted range of motion in flexion extension as well as rotation no signs of muscle spasm noted MUSCULOSKELETAL/EXTREMITIES: Patient is somewhat contracted but range of motion in the upper extremities does not reveal any tenderness or deformity in the upper or lower extremity. The right lower extremity appears to have normal range of motion but it is difficult to evaluate. Left lower extremity does appear to have pain with range of motion testing of the left hip. SKIN: Skin is warm and dry. Pedal edema was noted bilaterally. NEUROLOGIC: Patient is awake to verbal commands. He is oriented to person but not place time or situation. Strength was very diminished but symmetric. MEDICAL DECISION MAKING: The patient is an 87-year-old male who presented to the emergency department for an evaluation after being found on the floor. The patient had significant hypoxia and when he was really positioned he started breathing again. The patient's condition is very tenuous. He is a DNR. The patient's family presented to the emergency department to be with him. I discussed patient's laboratory and radiographic studies with them. He was found to be hypotensive and treated with a small fluid bolus. Reportedly he recently suffered from pneumonia and was on an antibiotic. I discussed the patient's laboratory and radiographic studies with him. I also discussed patient's condition with the on-call [facility] hospitalist group. They have agreed to evaluate the patient in the emergency department for further management and disposition. Triage Nursing notes reviewed. Prior medical records reviewed Vital Signs: reviewed and remarkable for hypotension. Differential diagnosis: Infection, hypoglycemia, electrolyte abnormalities, overdose, toxicologic, cardiac sources, intracerebral event, neurologic, trauma, as well as other pathologies. ER treatment provided: See below Diagnostics interpreted by me: ECG: EKG was obtained in the emergency department. My interpretation is ventricular paced rhythm at 61 bpm. No grand traverse beats were noted. Left bundle- branch block pattern was noted. This was compared to a tracing from June 11, 2022. No changes were noted Cardiac Monitoring: An order was placed for continuous cardiac monitoring. The monitor shows a rate of 79 bpm with paced rhythm. Laboratory studies: As stated above and show below. Imaging studies: See below. Radiographic imaging was reviewed by myself Consultation(s): I discussed this case with Tiff[facility] who [facility] They will evaluate the patient in the emergency department. Past Med/Surg History Medical History (Updated 09/21/22 @ 21:18 by Chaim Wells DO) ACS (acute coronary syndrome) Advanced care planning/counseling discussion BPH (benign prostatic hyperplasia) CAD (coronary artery disease) Chronic anticoagulation Dementia DM type 2 (diabetes mellitus, type 2) DNR (do not resuscitate) Dyslipidemia Dyspnea on exertion Fall Gout History of cerebral hemorrhage HTN (hypertension) Pacemaker Pancreatic cancer Paroxysmal atrial fibrillation Sinus node dysfunction SSS (sick sinus syndrome) Surgical History H/O arthroscopic knee surgery H/O colonoscopy H/O esophagogastroduodenoscopy H/O inguinal hernia repair History of pancreatectomy "07/15/2010 Dr. Pacheco [facility] [place] S/P CABG x 1 S/P coronary artery stent placement "03/29/03 cardiac cath: RCA - stent of 90% lesion, L circ obtuse kenneth - stent of 80% lesion " S/P splenectomy S/P tonsillectomy and adenoidectomy Family History Other Family history non-contributory Social History Smoking Status: Unknown if ever smoked Tobacco Type: Cigarettes Second Hand Exposure: No; Do You Dip or Chew Tobacco: No; Hx Alcohol Use: No Hx Substance Use: No Preferred Language: Albanian Communication Ability: Effective Communication Ability Comment: confusion Filing Or Registry Clerk Required: No Beliefs That Will Affect Care: None marital status: / Current Living Situation: Prison Current Living Situation Comment: [facility] current occupational status: retired How many Children do You have: 2 Feels Safe at Home: Yes Safety Concerns: Feels Safe At This Time Assistive Devices: Oxygen - Continuous and Wheelchair Allergies Allergies Allergy/AdvReac Type Severity Reaction Status Date / Time shellfish derived Allergy Severe anaphylaxis Verified 06/05/22 16:36 clopidogrel Allergy Intermediate INTERNAL Verified 06/05/22 16:36 HIVES Penicillins Allergy Intermediate HIVES Verified 06/14/22 08:27 Home Meds Home Medications Medication Instructions Recorded Confirmed acetaminophen 325 mg tablet 650 mg PO Q6 PRN Pain 06/05/22 09/21/22 (Tylenol) amlodipine 5 mg tablet 5 mg PO DAILY 06/05/22 09/21/22 apixaban 2.5 mg tablet (Eliquis) 2.5 mg PO BID 06/05/22 09/21/22 aspirin 81 mg tablet,delayed 81 mg PO DAILY 06/05/22 09/21/22 release atorvastatin 40 mg tablet 40 mg PO DAILY 06/05/22 09/21/22 calcium carbonate 300 mg (750 mg) 1,200 mg PO TID PRN Indigestion 06/05/22 09/21/22 chewable tablet (Tums E-X) furosemide 40 mg tablet (Lasix) 40 mg PO DAILY 06/05/22 09/21/22 insulin aspart U-100 100 unit/mL 5 unit subcut BID 06/05/22 09/21/22 (3 mL) subcutaneous pen (Novolog FlexPen U-100 Insulin aspart) insulin glargine 100 unit/mL (3 18 unit subcut BID 06/05/22 09/21/22 mL) subcutaneous pen (Lantus Solostar U-100 Insulin) isosorbide mononitrate 60 mg 60 mg PO DAILY 06/05/22 09/21/22 tablet,extended release 24 hr losartan 50 mg tablet 50 mg PO DAILY 06/05/22 09/21/22 metoprolol succinate 50 mg 50 mg PO QAM 06/05/22 09/21/22 tablet,extended release 24 hr nitroglycerin 0.4 mg sublingual 0.4 mg sublingual DIRECTED PRN 06/05/22 0 09/21/22 tablet (Nitrostat) Chest Pain pantoprazole 40 mg tablet,delayed 40 mg PO DAILY 06/05/22 09/21/22 release tamsulosin 0.4 mg capsule 0.4 mg PO DAILY 06/05/22 09/21/22 azithromycin 250 mg tablet 250 mg PO DAILY 09/21/22 09/21/22 escitalopram oxalate 20 mg tablet 20 mg PO DAILY 09/21/22 09/21/22 melatonin 5 mg tablet 5 mg PO HS 09/21/22 09/21/22 methenamine hippurate 1 gram tablet 1 g PO DAILY 09/21/22 09/21/22 Previous Rx's Medication Instructions Recorded dutasteride 0.5 mg capsule 0.5 mg PO DAILY #90 caps 08/19/22 Results & Data (ED) Vital Signs Vital Signs - 24 hr 09/21/22 16:11 09/21/22 16:22 09/21/22 16:22 Temperature 36.2 C L 36.2 C L Temperature Source Oral Oral Pulse Rate 63 60 Pulse Rate [Apical] 60 Pulse Rhythm [Apical] Regular Respiratory Rate 22 22 Respiratory Effort / Characteristics Non-Labored Spontaneous Non-Labored Spontaneous Respiratory Depth Normal Normal Respiratory Pattern Regular Regular Blood Pressure 97/59 L Blood Pressure [Right Arm] 96/61 L Blood Pressure Mean 71 Blood Pressure Mean [Right Arm] 72 Blood Pressure Position [Right Arm] Lying Pulse Oximetry 92 92 Oxygen Delivery Method Nasal Cannula Nasal Cannula Oxygen Flow Rate 3.5 3.5 Sepsis Recent Fever Within 48 Hours No Sepsis New/Unexplained Change in Mental Status Yes Sepsis Action Taken by Nursing Physician Notified 09/21/22 16:22 09/21/22 18:12 Temperature Temperature Source Pulse Rate Pulse Rate [Apical] 60 Pulse Rhythm [Apical] Regular Respiratory Rate 20 Respiratory Effort / Characteristics Non-Labored Spontaneous Respiratory Depth Normal Respiratory Pattern Regular Blood Pressure Blood Pressure [Right Arm] 94/58 L Blood Pressure Mean Blood Pressure Mean [Right Arm] 70 Blood Pressure Position [Right Arm] Lying Pulse Oximetry 93 94 Oxygen Delivery Method Nasal Cannula Nasal Cannula Oxygen Flow Rate 3.5 3.5 Sepsis Recent Fever Within 48 Hours Sepsis New/Unexplained Change in Mental Status Sepsis Action Taken by Prison Medications Current Medication List: was personally reviewed by me Laboratory Data Attestation: I reviewed the patient's lab results. 09/21/22 16:19 09/21/22 16:19 Lab Results 09/21/22 09/21/22 09/21/22 Range/Units 16:19 16:19 16:19 WBC 12.44 H (4.8-10.8) K/ul RBC 3.67 L (4.70-6.10) M/uL Hgb 10.7 L (14.0-18.0) g/dl POC Hgb (14.0-18.0) g/dl Hct 33.7 L (42.0-52.0) % POC Hct (42-52) % MCV 91.8 (80.0-100.0) fL MCH 29.2 (25.0-34.0) pg MCHC 31.8 L (32.0-36.0) g/dL RDW Std Deviation 58.6 H (36.4-46.3) fL RDW Coeff of Trevon 17.5 H (11.5-14.5) % Plt Count 177 (130-400) K/uL MPV 11.0 (9.4-12.4) fL Immature Gran % (Auto) 1.8 % Neut % (Auto) 65.2 % Lymph % (Auto) 19.7 % Clayton % (Auto) 10.2 % Eos % (Auto) 2.5 % Baso % (Auto) 0.6 % Neut # (Auto) 8.11 H (1.40-6.50) K/uL Lymph # (Auto) 2.45 (1.2-3.4) K/uL Clayton # (Auto) 1.27 H (0.11-0.59) K/uL Eos # (Auto) 0.31 (0-0.50) K/uL Baso # (Auto) 0.07 (0-0.2) K/uL Immature Gran # (Auto) 0.23 H (0.01-0.20) K/uL Absolute Nucleated RBC 0.02 (0-0.12) K/uL Nucleated RBC % (auto) 0.2 % PT 13.1 H (9.0-12.0) Seconds INR 1.2 H (0.9-1.1) APTT 27.9 (21.0-31.0) Seconds PTT Ratio 1.0 VBG pH (7.36-7.41) VBG pCO2 (38-50) mmHg VBG pO2 mmHg VBG HCO3 mmol/L VBG O2 Saturation % VBG Base Excess mEq/L POC Sodium (135-144) mmol/L Sodium 135 L (136-145) mmol/L POC Potassium (3.3-5.0) mmol/L Potassium 4.6 (3.5-5.1) mmol/L POC Chloride (101-112) mmol/L Chloride 103 (98-107) mmol/L Carbon Dioxide 22 (21-32) mmol/L POC Total CO2 (24-31) mmol/L Anion Gap 10 (3-11) POC Anion Gap (16-25) mmol/L POC BUN (7-18) mg/dl BUN 27 H (6-23) mg/dl Creatinine 1.36 (0.6-1.4) mg/dl POC Creatinine (0.6-1.3) mg/dl Est Cr Clr Drug Dosing 46.3 ml/min Est GFR ( Amer) 53.8 ml/min Est GFR (Non-Af Amer) 46.5 ml/min BUN/Creatinine Ratio 19.9 (10-20) Glucose 170 H (70-99(Fasting)) mg/dl POC Glucose (other) (70-99) mg/dl Lactate (0.4-2.0) mmol/L Calcium 8.3 L (8.6-10.3) mg/dl POC Ioniz Calcium Carol (1.12-1.32) mmol/l Magnesium 1.9 (1.7-2.4) mg/dl Total Bilirubin 1.2 H (0.2-1.0) mg/dl Direct Bilirubin 0.4 H (0-0.2) mg/dl AST 46 H (13-39) U/L ALT 23 (7-52) U/L Alkaline Phosphatase 134 H (34-104) U/L Troponin I High Sens 25.3 H (0-20) pg/ml Total Protein 7.3 (6.0-8.3) gm/dl Albumin 3.5 (3.4-5.0) gm/dl Lipase 19 (11-82) U/L Procalcitonin (0-0.5) ng/ml SARS-CoV-2, RNA, NAAT (NEGATIVE) 09/21/22 09/21/22 09/21/22 Range/Units 16:19 16:31 16:35 WBC (4.8-10.8) K/ul RBC (4.70-6.10) M/uL Hgb (14.0-18.0) g/dl POC Hgb 11.6 L (14.0-18.0) g/dl Hct (42.0-52.0) % POC Hct 34 L (42-52) % MCV (80.0-100.0) fL MCH (25.0-34.0) pg MCHC (32.0-36.0) g/dL RDW Std Deviation (36.4-46.3) fL RDW Coeff of Trevon (11.5-14.5) % Plt Count (130-400) K/uL MPV (9.4-12.4) fL Immature Gran % (Auto) % Neut % (Auto) % Lymph % (Auto) % Clayton % (Auto) % Eos % (Auto) % Baso % (Auto) % Neut # (Auto) (1.40-6.50) K/uL Lymph # (Auto) (1.2-3.4) K/uL Clayton # (Auto) (0.11-0.59) K/uL Eos # (Auto) (0-0.50) K/uL Baso # (Auto) (0-0.2) K/uL Immature Gran # (Auto) (0.01-0.20) K/uL Absolute Nucleated RBC (0-0.12) K/uL Nucleated RBC % (auto) % PT (9.0-12.0) Seconds INR (0.9-1.1) APTT (21.0-31.0) Seconds PTT Ratio VBG pH (7.36-7.41) VBG pCO2 (38-50) mmHg VBG pO2 mmHg VBG HCO3 mmol/L VBG O2 Saturation % VBG Base Excess mEq/L POC Sodium 138 (135-144) mmol/L Sodium (136-145) mmol/L POC Potassium 5.0 (3.3-5.0) mmol/L Potassium (3.5-5.1) mmol/L POC Chloride 103 (101-112) mmol/L Chloride (98-107) mmol/L Carbon Dioxide (21-32) mmol/L POC Total CO2 22 L (24-31) mmol/L Anion Gap (3-11) POC Anion Gap 18.0 (16-25) mmol/L POC BUN 26 H (7-18) mg/dl BUN (6-23) mg/dl Creatinine (0.6-1.4) mg/dl POC Creatinine 1.4 H (0.6-1.3) mg/dl Est Cr Clr Drug Dosing ml/min Est GFR ( Amer) ml/min Est GFR (Non-Af Amer) ml/min BUN/Creatinine Ratio (10-20) Glucose (70-99(Fasting)) mg/dl POC Glucose (other) 169 H (70-99) mg/dl Lactate 3.4 H* (0.4-2.0) mmol/L Calcium (8.6-10.3) mg/dl POC Ioniz Calcium Carol 1.12 (1.12-1.32) mmol/l Magnesium (1.7-2.4) mg/dl Total Bilirubin (0.2-1.0) mg/dl Direct Bilirubin (0-0.2) mg/dl AST (13-39) U/L ALT (7-52) U/L Alkaline Phosphatase (34-104) U/L Troponin I High Sens (0-20) pg/ml Total Protein (6.0-8.3) gm/dl Albumin (3.4-5.0) gm/dl Lipase (11-82) U/L Procalcitonin < 0.05 (0-0.5) ng/ml SARS-CoV-2, RNA, NAAT (NEGATIVE) 09/21/22 09/21/22 09/21/22 Range/Units 17:38 17:47 18:36 WBC (4.8-10.8) K/ul RBC (4.70-6.10) M/uL Hgb (14.0-18.0) g/dl POC Hgb (14.0-18.0) g/dl Hct (42.0-52.0) % POC Hct (42-52) % MCV (80.0-100.0) fL MCH (25.0-34.0) pg MCHC (32.0-36.0) g/dL RDW Std Deviation (36.4-46.3) fL RDW Coeff of Trevon (11.5-14.5) % Plt Count (130-400) K/uL MPV (9.4-12.4) fL Immature Gran % (Auto) % Neut % (Auto) % Lymph % (Auto) % Clayton % (Auto) % Eos % (Auto) % Baso % (Auto) % Neut # (Auto) (1.40-6.50) K/uL Lymph # (Auto) (1.2-3.4) K/uL Clayton # (Auto) (0.11-0.59) K/uL Eos # (Auto) (0-0.50) K/uL Baso # (Auto) (0-0.2) K/uL Immature Gran # (Auto) (0.01-0.20) K/uL Absolute Nucleated RBC (0-0.12) K/uL Nucleated RBC % (auto) % PT (9.0-12.0) Seconds INR (0.9-1.1) APTT (21.0-31.0) Seconds PTT Ratio VBG pH 7.32 L (7.36-7.41) VBG pCO2 46 (38-50) mmHg VBG pO2 32 mmHg VBG HCO3 24 mmol/L VBG O2 Saturation < 60.0 % VBG Base Excess -2.6 mEq/L POC Sodium (135-144) mmol/L Sodium (136-145) mmol/L POC Potassium (3.3-5.0) mmol/L Potassium (3.5-5.1) mmol/L POC Chloride (101-112) mmol/L Chloride (98-107) mmol/L Carbon Dioxide (21-32) mmol/L POC Total CO2 (24-31) mmol/L Anion Gap (3-11) POC Anion Gap (16-25) mmol/L POC BUN (7-18) mg/dl BUN (6-23) mg/dl Creatinine (0.6-1.4) mg/dl POC Creatinine (0.6-1.3) mg/dl Est Cr Clr Drug Dosing ml/min Est GFR ( Amer) ml/min Est GFR (Non-Af Amer) ml/min BUN/Creatinine Ratio (10-20) Glucose (70-99(Fasting)) mg/dl POC Glucose (other) (70-99) mg/dl Lactate (0.4-2.0) mmol/L Calcium (8.6-10.3) mg/dl POC Ioniz Calcium Carol (1.12-1.32) mmol/l Magnesium (1.7-2.4) mg/dl Total Bilirubin (0.2-1.0) mg/dl Direct Bilirubin (0-0.2) mg/dl AST (13-39) U/L ALT (7-52) U/L Alkaline Phosphatase (34-104) U/L Troponin I High Sens (0-20) pg/ml Total Protein (6.0-8.3) gm/dl Albumin (3.4-5.0) gm/dl Lipase Cancelled (11-82) U/L Procalcitonin (0-0.5) ng/ml SARS-CoV-2, RNA, NAAT NEGATIVE (NEGATIVE) 09/21/22 Range/Units 19:01 WBC (4.8-10.8) K/ul RBC (4.70-6.10) M/uL Hgb (14.0-18.0) g/dl POC Hgb (14.0-18.0) g/dl Hct (42.0-52.0) % POC Hct (42-52) % MCV (80.0-100.0) fL MCH (25.0-34.0) pg MCHC (32.0-36.0) g/dL RDW Std Deviation (36.4-46.3) fL RDW Coeff of Trevon (11.5-14.5) % Plt Count (130-400) K/uL MPV (9.4-12.4) fL Immature Gran % (Auto) % Neut % (Auto) % Lymph % (Auto) % Clayton % (Auto) % Eos % (Auto) % Baso % (Auto) % Neut # (Auto) (1.40-6.50) K/uL Lymph # (Auto) (1.2-3.4) K/uL Clayton # (Auto) (0.11-0.59) K/uL Eos # (Auto) (0-0.50) K/uL Baso # (Auto) (0-0.2) K/uL Immature Gran # (Auto) (0.01-0.20) K/uL Absolute Nucleated RBC (0-0.12) K/uL Nucleated RBC % (auto) % PT (9.0-12.0) Seconds INR (0.9-1.1) APTT (21.0-31.0) Seconds PTT Ratio VBG pH (7.36-7.41) VBG pCO2 (38-50) mmHg VBG pO2 mmHg VBG HCO3 mmol/L VBG O2 Saturation % VBG Base Excess mEq/L POC Sodium (135-144) mmol/L Sodium (136-145) mmol/L POC Potassium (3.3-5.0) mmol/L Potassium (3.5-5.1) mmol/L POC Chloride (101-112) mmol/L Chloride (98-107) mmol/L Carbon Dioxide (21-32) mmol/L POC Total CO2 (24-31) mmol/L Anion Gap (3-11) POC Anion Gap (16-25) mmol/L POC BUN (7-18) mg/dl BUN (6-23) mg/dl Creatinine (0.6-1.4) mg/dl POC Creatinine (0.6-1.3) mg/dl Est Cr Clr Drug Dosing ml/min Est GFR ( Amer) ml/min Est GFR (Non-Af Amer) ml/min BUN/Creatinine Ratio (10-20) Glucose (70-99(Fasting)) mg/dl POC Glucose (other) (70-99) mg/dl Lactate 2.0 (0.4-2.0) mmol/L Calcium (8.6-10.3) mg/dl POC Ioniz Calcium Carol (1.12-1.32) mmol/l Magnesium (1.7-2.4) mg/dl Total Bilirubin (0.2-1.0) mg/dl Direct Bilirubin (0-0.2) mg/dl AST (13-39) U/L ALT (7-52) U/L Alkaline Phosphatase (34-104) U/L Troponin I High Sens (0-20) pg/ml Total Protein (6.0-8.3) gm/dl Albumin (3.4-5.0) gm/dl Lipase (11-82) U/L Procalcitonin (0-0.5) ng/ml SARS-CoV-2, RNA, NAAT (NEGATIVE) Administered Medications Discontinued Medications Fentanyl Citrate (Fentanyl Citrate Pf 100 Mcg/2 Ml Vial) 25 mcg IV Q15M PRN PRN Reason: Pain Stop: 10/05/22 16:53 Last Admin: 09/21/22 16:59 Dose: 25 mcg Documented By: DUDLEY Sodium Chloride (Nss 1000ml) 500 mls @ 999 mls/hr IV .Q31M ONE Stop: 09/21/22 16:44 Last Infusion: 09/21/22 17:03 Dose: 0 mls/hr Documented By: Admin: 09/21/22 16:21 Dose: 999 mls/hr Documented By: DUDLEY Ceftriaxone Sodium (Rocephin) 2,000 mg in 70 mls @ 140 mls/hr IV NOW STA Stop: 09/21/22 18:51 Last Admin: 09/21/22 19:25 Dose: 140 mls/hr Documented By: GAVINO Ondansetron HCl (Ondansetron Inj 2 Mg/Ml 2 Ml Vial) 4 mg IV NOW STA Stop: 09/21/22 16:55 Last Admin: 09/21/22 16:59 Dose: 4 mg Documented By: DUDLEY Imaging Data Attestation: I personally reviewed and interpreted this imaging study as ector fisher: My Impression: Plain x-rays of the left hip were obtained. My interpretation is no definite fracture, final report below. Radiologist's Impression: Abdomen/Pelvis CT 09/21/22 16:14 CT SCAN OF THE CHEST, ABDOMEN, AND PELVIS WITHOUT IV CONTRAST CLINICAL HISTORY: Fall. COMPARISON STUDY: Chest CT dated 06/12/2022. Abdominal CT dated 12/31/2021. TECHNIQUE: Unenhanced CT scan of the chest, abdomen, and pelvis was performed from the thoracic inlet to the proximal femora. Images are reviewed in the axial , sagittal, and coronal planes. IV contrast was not administered for this examination. Note that the examination is suboptimal without IV contrast. A dose lowering technique was utilized adhering to the principles of ALARA. The examinations are degraded by streak artifact from the arms which could not be elevated above the chest or abdomen as well as by motion artifact. FINDINGS: CHEST: Thyroid: Imaged portions of the thyroid gland are normal in size and attenuation. Thoracic aorta: There is atherosclerotic calcification of the thoracic aorta, which is normal in caliber and demonstrates standard 3-vessel arch anatomy. Heart: A cardiac pacemaker is seen in the left chest wall. The patient is status post midline sternotomy. The enlarged in size and without pericardial effusion. The coronary arteries and aortic valve leaflets are densely calcified. Lungs and pleural spaces: Evaluation of the lung parenchyma is degraded by motion artifact. There are small pleural effusions, left larger than right with dependent atelectasis. There is no airspace consolidation typical for pneumonia or pneumothorax. Intralobular septal thickening suggests fluid overload/congestive change. There are scattered calcified granulomas. Mediastinum: Mildly enlarged mediastinal lymph nodes are similar to previous. These measure up to 14 mm short axis. Christie: Not well assessed without IV contrast. Axillae: There is no axillary lymphadenopathy. Bony thorax: The skeletal structures are osteopenic. No lytic or blastic lesions are identified. Arthritic change is noted in the shoulders. Degenerative change and hyperkyphosis is seen in the thoracic spine. There is a subacute appearing left posterior 11th rib fracture. Additional chronic/healed rib fractures are noted. ABDOMEN AND PELVIS: Liver: The unenhanced liver is cirrhotic in morphology and heterogeneous attenuation. There is nodularity of the hepatic surface contour. There is no intrahepatic biliary ductal dilatation. Gallbladder: Unremarkable. Spleen: Not identified and presumed surgically absent. Pancreas: The unenhanced pancreas is moderately atrophic. There is peripancreatic infiltration and fluid. Adrenal glands: Unremarkable. Kidneys: The unenhanced kidneys demonstrate cortical atrophy and are without hydronephrosis. No renal calculi are identified. There is no evidence of contour deforming mass lesion. Abdominal vasculature: The abdominal aorta is normal in course and caliber noting advanced atherosclerotic calcification. Bowel: There is moderate to advanced colonic diverticulosis without CT evidence of acute diverticulitis. No bowel obstruction is seen. The appendix is normal as visualized. Peritoneum: There is nonspecific mesenteric edema. No intraperitoneal free air is seen. There is trace perihepatic ascites. Lymphadenopathy: None. Pelvic viscera: The prostate gland is diminutive and heterogeneous. The bladder is distended, the wall is thickened trabecula and indicating chronic outlet obstruction. There is evidence of bilateral inguinal herniorrhaphy. Intramuscular hemorrhage is noted within the left obturator internus. Skeletal structures: The skeletal structures are osteopenic. There are acute left superior and inferior pubic ring fractures with surrounding hemorrhage. The superior pubic ring fracture extends to the acetabulum. There is a chronic compression deformity of L1 with evidence of previous vertebroplasty. No lytic or blastic lesions are seen. There is chronic posttraumatic deformity at the sacrococcygeal junction. IMPRESSION: 1. Significantly suboptimal examinations without IV contrast. 2. There are acute left pubic ring fractures as above. The superior pubic ring fracture extends through the acetabulum. 3. No additional acute fracture is clearly seen. 4. Intramuscular hemorrhage is noted in the left obturator internus. 5. No acute posttraumatic findings are seen in the thorax. 6. Cardiomegaly and small pleural effusions. Intralobar septal thickening suggests congestive change. Correlate clinically. 7. There is no evidence of solid organ injury in the abdomen or pelvis on this unenhanced examination. 8. Mediastinal lymphadenopathy is similar to previous. 9. Cirrhotic liver morphology. 10. There is peripancreatic infiltration and trace fluid, as well as mesenteric edema. Correlate with clinical and laboratory findings for evidence of pancreatitis. 11. Additional findings as above. ACT 112: Negative or not required by law. Electronically signed by: Yousif Espinoza M.D. 09/21/2022 6:[address] 09/21/22 16:14 CT SCAN OF THE CERVICAL SPINE CLINICAL HISTORY: Fall. COMPARISON STUDY: No priors. TECHNIQUE: CT scan of the cervical spine is performed from the skull base to the upper thoracic spine. Images are reviewed in the axial, sagittal, and coronal planes. IV contrast was not administered for this examination. A dose lowering technique was utilized adhering to the principles of ALARA. FINDINGS: Skeletal structures: The skeletal structures are osteopenic. There is no evidence of fracture or subluxation involving the cervical spine. Vertebral body height and alignment are maintained. There is straightening of the cervical lordosis. Anterior osteophytes are seen throughout. The odontoid process and lateral masses are intact. The atlantoaxial articulation is preserved noting advanced productive degenerative change. The spinous processes appear intact. There is moderate to advanced multilevel cervical spondylosis. Uncovertebral and facet arthropathy contribute to neural foraminal narrowing at most levels. Intervertebral discs: There is moderate to severe disc space narrowing at all c ervical levels between C3-C4 and T1-T2. Central canal: Posterior disc osteophyte complexes are seen at all cervical levels between C2-C4 and C6-C7, and likely contribute to multilevel acquired compromise of the central canal. Soft tissues: The prevertebral and paraspinous soft tissues are within normal limits. There is atherosclerotic calcification of the carotid bulbs. Pacemaker leads are seen in the left thoracic inlet. Calvarium: The visualized calvarium at the skull base appears intact. Brain parenchyma: Partially visualized brain parenchyma at the skull base is within normal limits. Sinuses and mastoids: The visualized paranasal sinuses are clear. There is trace right mastoid effusion. Lung apices: Clear as visualized. IMPRESSION: 1. There is no evidence of fracture or subluxation involving the cervical spine. 2. Osteopenia and spondylitic change as above. ACT 112: Negative or not required by law. Electronically signed by: Yousif Espinoza M.D. 09/21/2022 6:[address] 09/21/22 16:14 CT SCAN OF THE CHEST, ABDOMEN, AND PELVIS WITHOUT IV CONTRAST CLINICAL HISTORY: Fall. COMPARISON STUDY: Chest CT dated 06/12/2022. Abdominal CT dated 12/31/2021. TECHNIQUE: Unenhanced CT scan of the chest, abdomen, and pelvis was performed from the thoracic inlet to the proximal femora. Images are reviewed in the axial, sagittal, and coronal planes. IV contrast was not administered for this examination. Note that the examination is suboptimal without IV contrast. A dose lowering technique was utilized adhering to the principles of ALARA. The examinations are degraded by streak artifact from the arms which could not be elevated above the chest or abdomen as well as by motion artifact. FINDINGS: CHEST: Thyroid: Imaged portions of the thyroid gland are normal in size and attenuation. Thoracic aorta: There is atherosclerotic calcification of the thoracic aorta, which is normal in caliber and demonstrates standard 3-vessel arch anatomy. Heart: A cardiac pacemaker is seen in the left chest wall. The patient is status post midline sternotomy. The enlarged in size and without pericardial effusion. The coronary arteries and aortic valve leaflets are densely calcified. Lungs and pleural spaces: Evaluation of the lung parenchyma is degraded by motion artifact. There are small pleural effusions, left larger than right with dependent atelectasis. There is no airspace consolidation typical for pneumonia or pneumothorax. Intralobular septal thickening suggests fluid overload/congestive change. There are scattered calcified granulomas. Mediastinum: Mildly enlarged mediastinal lymph nodes are similar to previous. These measure up to 14 mm short axis. Christie: Not well assessed without IV contrast. Axillae: There is no axillary lymphadenopathy. Bony thorax: The skeletal structures are osteopenic. No lytic or blastic lesions are identified. Arthritic change is noted in the shoulders. Degenerative change and hyperkyphosis is seen in the thoracic spine. There is a subacute appearing left posterior 11th rib fracture. Additional chronic/healed rib fractures are noted. ABDOMEN AND PELVIS: Liver: The unenhanced liver is cirrhotic in morphology and heterogeneous a ttenuation. There is nodularity of the hepatic surface contour. There is no intrahepatic biliary ductal dilatation. Gallbladder: Unremarkable. Spleen: Not identified and presumed surgically absent. Pancreas: The unenhanced pancreas is moderately atrophic. There is peripancreatic infiltration and fluid. Adrenal glands: Unremarkable. Kidneys: The unenhanced kidneys demonstrate cortical atrophy and are without hydronephrosis. No renal calculi are identified. There is no evidence of contour deforming mass lesion. Abdominal vasculature: The abdominal aorta is normal in course and caliber noting advanced atherosclerotic calcification. Bowel: There is moderate to advanced colonic diverticulosis without CT evidence of acute diverticulitis. No bowel obstruction is seen. The appendix is normal as visualized. Peritoneum: There is nonspecific mesenteric edema. No intraperitoneal free air i s seen. There is trace perihepatic ascites. Lymphadenopathy: None. Pelvic viscera: The prostate gland is diminutive and heterogeneous. The bladder is distended, the wall is thickened trabecula and indicating chronic outlet obstruction. There is evidence of bilateral inguinal herniorrhaphy. Intramuscular hemorrhage is noted within the left obturator internus. Skeletal structures: The skeletal structures are osteopenic. There are acute left superior and inferior pubic ring fractures with surrounding hemorrhage. The superior pubic ring fracture extends to the acetabulum. There is a chronic compression deformity of L1 with evidence of previous vertebroplasty. No lytic or blastic lesions are seen. There is chronic posttraumatic deformity at the sacrococcygeal junction. IMPRESSION: 1. Significantly suboptimal examinations without IV contrast. 2. There are acute left pubic ring fractures as above. The superior pubic ring f racture extends through the acetabulum. 3. No additional acute fracture is clearly seen. 4. Intramuscular hemorrhage is noted in the left obturator internus. 5. No acute posttraumatic findings are seen in the thorax. 6. Cardiomegaly and small pleural effusions. Intralobar septal thickening sugge sts congestive change. Correlate clinically. 7. There is no evidence of solid organ injury in the abdomen or pelvis on this unenhanced examination. 8. Mediastinal lymphadenopathy is similar to previous. 9. Cirrhotic liver morphology. 10. There is peripancreatic infiltration and trace fluid, as well as mesenteric edema. Correlate with clinical and laboratory findings for evidence of pancreatitis. 11. Additional findings as above. ACT 112: Negative or not required by law. Electronically signed by: Yousif Espinoza M.D. 09/21/2022 6:24 PM Chest X-Ray 09/21/22 16:14 SINGLE VIEW CHEST CLINICAL HISTORY: Sepsis. FINDINGS: An AP, portable, supine chest radiograph is compared to study dated 06/12/2012 and correlated with chest CT dated 06/12/2022. The examination is degraded by portable technique and patient rotation. The patient is status post midline sternotomy. A 2-lead cardiac pacemaker is unchanged in position. The heart is enlarged noting atherosclerotic calcification of the thoracic aorta. There is pulmonary vascular congestion. Chronic interstitial thickening similar to previous. There is bibasilar scarring/atelectasis. No airspace consolidation or large pleural effusion is identified. No pneumothorax is seen. The skeletal structures are osteopenic. The bony thorax is grossly intact. IMPRESSION: Cardiomegaly and cardiac pacemaker with evidence of congestive failure. ACT 112: Negative or not required by law. Electronically signed by: Yousif Espinoza M.D. 09/21/2022 4:[address] 09/21/22 16:14 CT SCAN OF THE BRAIN WITHOUT IV CONTRAST CLINICAL HISTORY: Trauma. Fall. COMPARISON STUDY: CT of the brain dated 06/11/2022. TECHNIQUE: Unenhanced axial CT scan of the brain is performed from the vertex to the skull base. A dose lowering technique was utilized adhering to the principles of ALARA. CT DOSE: 4332.09 mGy.cm FINDINGS: Brain parenchyma: There is age-related involutional change noting advanced confluent subcortical and periventricular microangiopathic disease. Foci of right frontal and right parietal encephalomalacia are unchanged and consistent with remote insults. There is no hemorrhage, mass effect, or evidence of acute territorial ischemia by CT criteria. Galeano-white matter differentiation is preserved. No extra-axial fluid collection is seen. Ventricles, sulci, cisterns: Prominent secondary to involutional change. Intracranial vasculature: There is atherosclerotic calcification of the cavernous carotid and vertebral arteries. Calvarium: The skeletal structures are osteopenic. No depressed calvarial fracture is seen. Sinuses and mastoids: The visualized paranasal sinuses are clear. There is a left mastoid effusion. The right mastoid air cells are well pneumatized. Orbits: The bony orbits are grossly intact. There is chronic deformity of the left lamina papyracea. There are bilateral ocular lens implants. IMPRESSION: There is no hemorrhage, mass effect, or evidence of acute territorial ischemia by CT criteria. ACT 112: Negative or not required by law. Electronically signed by: Yousif Espinoza M.D. 09/21/2022 6:00 PM Hip/Pelvis X-Ray 09/21/22 16:14 SINGLE VIEW PELVIS; 2 VIEWS LEFT HIP CLINICAL HISTORY: Fall. FINDINGS: AP views of the pelvis with AP and frog-leg views of the left hip are compared to study dated 01/12/2019 and correlated with pelvic CT dated 12/31/2021. The skeletal structures are osteopenic. There is no radiographic evidence of acute fracture involving the hips or bony pelvis. A bipolar right hip arthroplasty is in near anatomic alignment. No periprosthetic lucency is seen. Mild to moderate arthritic change and joint space narrowing is seen in the left hip. There is degenerative sclerosis of the sacroiliac joints. Postsurgical change projects over the left groin. Soft tissue contusion overlies the left hip. There are pelvic phleboliths. Lumbosacral spondylosis is partially imaged. IMPRESSION: 1. No acute bony abnormality is identified. 2. A left hip arthroplasty is in near anatomic alignment. 3. Soft tissue contusion overlies the left hip. Electronically signed by: Yousif Espinoza M.D. 09/21/2022 4:51 PM Discharge Plan Visit Data Chief Complaint: Altered Mental Status Stated Complaint: ALTERED MENTAL STATUS ED Provider: Chaim Wells Discharge Problem: Acute alteration in mental status, Fall, Acetabular fracture, Closed pelvic fracture, Pulmonary edema, Acute hypotension Patient Disposition: Admitted As Inpatient Discharge Instructions Interventions: ED Discharge Assessment Last Done: 09/21/22 20:06
[2022-09-21 16:46] LABS: Basophils # (auto) 0.07 K/uL (0-0.2); Basophils % (auto) 0.6 %; Eosinophils # (auto) 0.31 K/uL (0-0.50); Eosinophils % (auto) 2.5 %; Hematocrit (blood only) 33.7 % (42.0-52.0); Hemoglobin 10.7 g/dl (14.0-18.0); Immature Granulocytes # (auto) 0.23 K/uL (0.01-0.20); Immature Granulocytes % (auto) 1.8 %; Lymphocytes # (auto) 2.45 K/uL (1.2-3.4); Lymphocytes % (auto) 19.7 %; Mean Corpuscular Hemoglobin 29.2 pg (25.0-34.0); Mean Corpuscular Hgb Conc 31.8 g/dL (32.0-36.0); Mean Corpuscular Volume 91.8 fL (80.0-100.0); Monocytes # (auto) 1.27 K/uL (0.11-0.59); Monocytes % (auto) 10.2 %; Neutrophils # (auto) 8.11 K/uL (1.40-6.50); Neutrophils % (auto) 65.2 %; Nucleated RBC # (auto) 0.02 K/uL (0-0.12); Nucleated RBC % (auto) 0.2 %; Platelet Count 177 K/uL (130-400); RDW Coefficient of Variation 17.5 % (11.5-14.5); RDW Standard Deviation 58.6 fL (36.4-46.3); Red Blood Count 3.67 M/uL (4.70-6.10); White Blood Count 12.44 K/ul (4.8-10.8)
--- NOTE | 2022-09-21 16:49 | XRay Report ---
SINGLE VIEW CHEST CLINICAL HISTORY: Sepsis. FINDINGS: An AP, portable, supine chest radiograph is compared to study dated 06/12/2012 and correlate d with chest CT dated 06/12/2022. The examination is degraded by portable technique and patient rotati on. The patient is status post midline sternotomy. A 2-lead cardiac pacemaker is unchanged in positio n. The heart is enlarged noting atherosclerotic calcification of the thoracic aorta. There is pulmona ry vascular congestion. Chronic interstitial thickening similar to previous. There is bibasilar scarr ing/atelectasis. No airspace consolidation or large pleural effusion is identified. No pneumothorax i s seen. The skeletal structures are osteopenic. The bony thorax is grossly intact. IMPRESSION: Cardiomegaly and cardiac pacemaker with evidence of congestive failure. ACT 112: Negative or not required by law. Electronically signed by: Yousif Espinoza M.D. 09/21/2022 4:48 PM
[2022-09-21 16:52] LABS: iSTAT Creatinine 1.4 mg/dl (0.6-1.3); iSTAT Hemoglobin 11.6 g/dl (14.0-18.0); iSTAT Ionized Calcium 1.12 mmol/l (1.12-1.32)
--- NOTE | 2022-09-21 16:53 | XRay Report ---
SINGLE VIEW PELVIS; 2 VIEWS LEFT HIP CLINICAL HISTORY: Fall. FINDINGS: AP views of the pelvis with AP and frog-leg views of the left hip are compared to study manjit ed 01/12/2019 and correlated with pelvic CT dated 12/31/2021. The skeletal structures are osteopenic. T here is no radiographic evidence of acute fracture involving the hips or bony pelvis. A bipolar right hip arthroplasty is in near anatomic alignment. No periprosthetic lucency is seen. Mild to moderate arthritic change and joint space narrowing is seen in the left hip. There is degenerative sclerosis o f the sacroiliac joints. Postsurgical change projects over the left groin. Soft tissue contusion over lies the left hip. There are pelvic phleboliths. Lumbosacral spondylosis is partially imaged. IMPRESSION: 1. No acute bony abnormality is identified. 2. A left hip arthroplasty is in near anatomic alignment. 3. Soft tissue contusion overlies the left hip. Electronically signed by: Yousif Espinoza M.D. 09/21/2022 4:51 PM
[2022-09-21] MEDS ORDERED: ONDANSETRON INJ 2 MG/ML 2 ML VIAL IV STA (16:54)
[2022-09-21] MEDS ORDERED: fentaNYL citrate PF 100 MCG/2 ML VIAL IV PRN (16:54)
[2022-09-21 17:00] LABS: Albumin Level 3.5 gm/dl (3.4-5.0); BUN Creatinine Ratio 19.9 (10-20); Bilirubin Direct 0.4 mg/dl (0-0.2); Bilirubin,Total 1.2 mg/dl (0.2-1.0); Calcium 8.3 mg/dl (8.6-10.3); Creatinine Clr Calc Pharmacy 46.3 ml/min; Est GFR (African American) 53.8 ml/min; Est GFR (Non-African American) 46.5 ml/min; Magnesium 1.9 mg/dl (1.7-2.4); Potassium 4.6 mmol/L (3.5-5.1); Total Protein 7.3 gm/dl (6.0-8.3)
[2022-09-21 17:05] LABS: Troponin I High Sensitivity 25.3 pg/ml (0-20)
[2022-09-21 17:16] LABS: INR 1.2 (0.9-1.1); Partial Thromboplastin Time 27.9 Seconds (21.0-31.0); Prothrombin Time 13.1 Seconds (9.0-12.0)
[2022-09-21 18:01] LABS: Base Excess VBG -2.6 mEq/L; HCO3 VBG 24 mmol/L; Oxygen Saturation VBG < 60.0 %; PCO2 VBG 46 mmHg (38-50); PO2 VBG 32 mmHg; pH VBG 7.32 (7.36-7.41)
--- NOTE | 2022-09-21 18:02 | CT Scan Report ---
CT SCAN OF THE BRAIN WITHOUT IV CONTRAST CLINICAL HISTORY: Trauma. Fall. COMPARISON STUDY: CT of the brain dated 06/11/2022. TECHNIQUE: Unenhanced axial CT scan of the brain is performed from the vertex to the skull base. A do se lowering technique was utilized adhering to the principles of ALARA. CT DOSE: 4332.09 mGy.cm FINDINGS: Brain parenchyma: There is age-related involutional change noting advanced confluent subcortical and periventricular microangiopathic disease. Foci of right frontal and right parietal encephalomalacia a re unchanged and consistent with remote insults. There is no hemorrhage, mass effect, or evidence of acute territorial ischemia by CT criteria. Galeano-white matter differentiation is preserved. No extra-a xial fluid collection is seen. Ventricles, sulci, cisterns: Prominent secondary to involutional change. Intracranial vasculature: There is atherosclerotic calcification of the cavernous carotid and vertebr al arteries. Calvarium: The skeletal structures are osteopenic. No depressed calvarial fracture is seen. Sinuses and mastoids: The visualized paranasal sinuses are clear. There is a left mastoid effusion. T he right mastoid air cells are well pneumatized. Orbits: The bony orbits are grossly intact. There is chronic deformity of the left lamina papyracea. There are bilateral ocular lens implants. IMPRESSION: There is no hemorrhage, mass effect, or evidence of acute territorial ischemia by CT susanna elizabeth. ACT 112: Negative or not required by law. Electronically signed by: Yousif Espinoza M.D. 09/21/2022 6:00 PM
--- NOTE | 2022-09-21 18:09 | CT Scan Report ---
CT SCAN OF THE CERVICAL SPINE CLINICAL HISTORY: Fall. COMPARISON STUDY: No priors. TECHNIQUE: CT scan of the cervical spine is performed from the skull base to the upper thoracic spine . Images are reviewed in the axial, sagittal, and coronal planes. IV contrast was not administered fo r this examination. A dose lowering technique was utilized adhering to the principles of ALARA. FINDINGS: Skeletal structures: The skeletal structures are osteopenic. There is no evidence of fracture or subl uxation involving the cervical spine. Vertebral body height and alignment are maintained. There is s traightening of the cervical lordosis. Anterior osteophytes are seen throughout. The odontoid process and lateral masses are intact. The atlantoaxial articulation is preserved noting advanced productive degenerative change. The spinous processes appear intact. There is moderate to advanced multilevel c ervical spondylosis. Uncovertebral and facet arthropathy contribute to neural foraminal narrowing at most levels. Intervertebral discs: There is moderate to severe disc space narrowing at all cervical levels between C3-C4 and T1-T2. Central canal: Posterior disc osteophyte complexes are seen at all cervical levels between C2-C4 and C6-C7, and likely contribute to multilevel acquired compromise of the central canal. Soft tissues: The prevertebral and paraspinous soft tissues are within normal limits. There is athero sclerotic calcification of the carotid bulbs. Pacemaker leads are seen in the left thoracic inlet. Calvarium: The visualized calvarium at the skull base appears intact. Brain parenchyma: Partially visualized brain parenchyma at the skull base is within normal limits. Sinuses and mastoids: The visualized paranasal sinuses are clear. There is trace right mastoid effusi on. Lung apices: Clear as visualized. IMPRESSION: 1. There is no evidence of fracture or subluxation involving the cervical spine. 2. Osteopenia and spondylitic change as above. ACT 112: Negative or not required by law. Electronically signed by: Yousif Espinoza M.D. 09/21/2022 6:07 PM
[2022-09-21] MEDS ORDERED: cefTRIAXone SODIUM 2,000 MG/70 ML BAG IV STA (18:22)
--- NOTE | 2022-09-21 18:27 | CT Scan Report ---
CT SCAN OF THE CHEST, ABDOMEN, AND PELVIS WITHOUT IV CONTRAST CLINICAL HISTORY: Fall. COMPARISON STUDY: Chest CT dated 06/12/2022. Abdominal CT dated 12/31/2021. TECHNIQUE: Unenhanced CT scan of the chest, abdomen, and pelvis was performed from the thoracic inlet to the proximal femora. Images are reviewed in the axial, sagittal, and coronal planes. IV contrast was not administered for this examination. Note that the examination is suboptimal without IV contras t. A dose lowering technique was utilized adhering to the principles of ALARA. The examinations are d egraded by streak artifact from the arms which could not be elevated above the chest or abdomen as we ll as by motion artifact. FINDINGS: CHEST: Thyroid: Imaged portions of the thyroid gland are normal in size and attenuation. Thoracic aorta: There is atherosclerotic calcification of the thoracic aorta, which is normal in jason hernesto and demonstrates standard 3-vessel arch anatomy. Heart: A cardiac pacemaker is seen in the left chest wall. The patient is status post midline sternot aaliyah. The enlarged in size and without pericardial effusion. The coronary arteries and aortic valve le aflets are densely calcified. Lungs and pleural spaces: Evaluation of the lung parenchyma is degraded by motion artifact. There are small pleural effusions, left larger than right with dependent atelectasis. There is no airspace con solidation typical for pneumonia or pneumothorax. Intralobular septal thickening suggests fluid overl oad/congestive change. There are scattered calcified granulomas. Mediastinum: Mildly enlarged mediastinal lymph nodes are similar to previous. These measure up to 14 mm short axis. Christie: Not well assessed without IV contrast. Axillae: There is no axillary lymphadenopathy. Bony thorax: The skeletal structures are osteopenic. No lytic or blastic lesions are identified. Arth ritic change is noted in the shoulders. Degenerative change and hyperkyphosis is seen in the thoracic spine. There is a subacute appearing left posterior 11th rib fracture. Additional chronic/healed rib fractures are noted. ABDOMEN AND PELVIS: Liver: The unenhanced liver is cirrhotic in morphology and heterogeneous attenuation. There is nodula rity of the hepatic surface contour. There is no intrahepatic biliary ductal dilatation. Gallbladder: Unremarkable. Spleen: Not identified and presumed surgically absent. Pancreas: The unenhanced pancreas is moderately atrophic. There is peripancreatic infiltration and fl uid. Adrenal glands: Unremarkable. Kidneys: The unenhanced kidneys demonstrate cortical atrophy and are without hydronephrosis. No renal calculi are identified. There is no evidence of contour deforming mass lesion. Abdominal vasculature: The abdominal aorta is normal in course and caliber noting advanced atheroscle rotic calcification. Bowel: There is moderate to advanced colonic diverticulosis without CT evidence of acute diverticulit is. No bowel obstruction is seen. The appendix is normal as visualized. Peritoneum: There is nonspecific mesenteric edema. No intraperitoneal free air is seen. There is trac e perihepatic ascites. Lymphadenopathy: None. Pelvic viscera: The prostate gland is diminutive and heterogeneous. The bladder is distended, the wal l is thickened trabecula and indicating chronic outlet obstruction. There is evidence of bilateral in guinal herniorrhaphy. Intramuscular hemorrhage is noted within the left obturator internus. Skeletal structures: The skeletal structures are osteopenic. There are acute left superior and inferi or pubic ring fractures with surrounding hemorrhage. The superior pubic ring fracture extends to the acetabulum. There is a chronic compression deformity of L1 with evidence of previous vertebroplasty. No lytic or blastic lesions are seen. There is chronic posttraumatic deformity at the sacrococcygeal junction. IMPRESSION: 1. Significantly suboptimal examinations without IV contrast. 2. There are acute left pubic ring fractures as above. The superior pubic ring fracture extends throu gh the acetabulum. 3. No additional acute fracture is clearly seen. 4. Intramuscular hemorrhage is noted in the left obturator internus. 5. No acute posttraumatic findings are seen in the thorax. 6. Cardiomegaly and small pleural effusions. Intralobar septal thickening suggests congestive change. Correlate clinically. 7. There is no evidence of solid organ injury in the abdomen or pelvis on this unenhanced examination . 8. Mediastinal lymphadenopathy is similar to previous. 9. Cirrhotic liver morphology. 10. There is peripancreatic infiltration and trace fluid, as well as mesenteric edema. Correlate with clinical and laboratory findings for evidence of pancreatitis. 11. Additional findings as above. ACT 112: Negative or not required by law. Electronically signed by: Yousif Espinoza M.D. 09/21/2022 6:24 PM
--- NOTE | 2022-09-21 19:01 | History & Physical Report ---
Date of Service September 21, 2022 Assessment & Plan (1) Fall: (2) Pelvic fracture: (3) Hematoma: Plan: -Admit to MedSurg -Pain control with Tylenol [id number], only small doses of narcotic available for severe pain due to lethargy after receiving dose of fentanyl in the ER -Ortho consulted for evaluation of the pelvic fracture - family unsure if want to persue surgery as pt has multiple medical issues -Holding Eliquis with left obturator hematoma, hemoglobin is 10, follow with a.m. labs to ensure no acute drops -Will eventually require PT/OT consults -Social work to assist with discharge planning as patient was previously at [facility], possible that he may need increased level of care -Palliative care consulted for multiple chronic comorbidities, family agrees that he is a DNR/DNI, also discussed with them regarding if he would need possible vasopressor support they would not want this. Family reports that his quality of life is poor currently and do not want to prolong life artificially. They are agreeable to antibiotics for presumed pneumonia and gentle hydration while he is n.p.o. (4) Generalized weakness: (5) Aspiration pneumonia: Plan: -Suspected that weakness is secondary to underlying source of pneumonia, CT chest reviewed -Possible early sepsis with the patient having hypotension with BP in the 90s over 50s -Was given NSS x500 mL bolus in the ER, holding blood pressure medications as well as Lasix, will give additional 60 mL/h x 500 mL total. -Consider speech therapy consult if his status improves to allow p.o. intake (6) Persistent atrial fibrillation: Plan: -Rate controlled with metoprolol, will allow this in the setting that blood pressure improves overnight -Holding Eliquis and baby aspirin with hematoma in left obturator muscle as described in imaging studies above (7) CHF (congestive heart failure): (8) ASCVD (arteriosclerotic cardiovascular disease): (9) S/P CABG x 2: (10) SSS (sick sinus syndrome): (11) HTN (hypertension): (12) Pacemaker: (13) Dyslipidemia: Plan: -Does not appear to be fluid overloaded, chronic, follows with cardiology as an outpatient - Chronic right heart failure, valvular heart disease with [id number] valvular aortic stenosis, swiz-[id number] mitral regurgitation, uwzykoqc-[id number] tricuspid regurgitation -Holding Lasix and other blood pressure medications as above -Continue metoprolol pending BP improves, reimplement Imdur if patient tolerates (14) DM type 2 (diabetes mellitus, type 2): Plan: -Reduce Lantus to 9 units twice daily with n.p.o. status, ISS with Accu-Cheks ACHS -Last A1c was 7.7 in May 2022, repeat with am labs - Glycemic pharmacy consulted DVT PPx - teds, scds, holding Eliquis and baby aspirin secondary to acute hematoma CODE: DNR/DNI Dispo: From home, likely to remain in the hospital x 1-2 days A total of 80 minutes were spent with greater than 50% of that time face to face with the patient, personally reviewing all current laboratories, imaging studies, past medication reconciliation, outpatient chart review, and discussion with specialists to collaborate care for the patient with attending. Please see attending documentation for corrections and/or additions. History of Present Illness Primary Care Provider: [facility] This is an 87-year-old male with past medical history significant for insulin- dependent diabetes; heart failure with preserved ejection fraction; CAD status post CABG; AFib, on Eliquis; history of chronic indwelling catheter, but was now taken off because of recurrent UTI; history of urinary incontinence; dementia; sick sinus syndrome, status post pacemaker; hypertension; hyperlipidemia, currently living at [facility] in [place] who presents today after being found by EMS at [facility] after a fall. Pt was recently admitted earlier this year 06/05-06/10 due to acute respiratory failure with hypoxia secondary to acute on chronic systolic heart failure. He was then readmitted on 06/11- 06/16 with acute metabolic encephalopathy likely secondary to pneumonia, concern for aspiration and UTI. Pt daughter Ralf is present amongst other friends at bedside. She received call this afternoon at 3:22 from SNF that the patient was found down and blue in his face, and RR was 8. EMS was called and when he was loaded into ambulance he was awake and yelling that he had pain in his arm, and this was around 4 pm. Pt knows he is in the hospital and is recognizing family at bedside. He was given fentanyl 25 mcg for significant pelvic pain with minimal movement and now is calm, asleep, and requiring oxygen where he typically does not need any at baseline. She notes that yesterday he was started on an antibiotic tablet at [facility] as there were concerns for new onset pneumonia as he had increased shortness of breath and some wheezing yesterday heard by her brother (he is not present here) while he was visiting the patient there yesterday. No known episodes of fever. No known other infectious source. Patient is unable to participate or provide his own ROS. CT of the abdomen pelvis was done, which shows a left obturator internus hematoma, The bladder is distended, the wall is thickened trabecula and indicating chronic outlet obstruction. There is evidence of bilateral inguinal herniorrhaphy. Intramuscular hemorrhage is noted within the left obturator internus. The skeletal structures are osteopenic. There are acute left superior and inferior pubic ring fractures with surrounding hemorrhage. The superior pubic ring fracture extends to the acetabulum. There is a chronic compression deformity of L1 with evidence of previous vertebroplasty. No lytic or blastic lesions are seen. There is chronic posttraumatic deformity at the sacrococcygeal junction. Labs reveal leukocytosis with WBC = 12.44, anemia with hemoglobin of 10.7, platelets are stable at 177, INR = 1.2, (patient was recently transitioned off of Coumadin and on Eliquis), lactic acid of 2.0, troponin of 25.3. Allergies Allergy/AdvReac Type Severity Reaction Status Date / Time shellfish derived Allergy Severe anaphylaxis Verified 06/05/22 16:36 clopidogrel Allergy Intermediate INTERNAL Verified 06/05/22 16:36 HIVES Penicillins Allergy Intermediate HIVES Verified 06/14/22 08:27 Home Medications Medication Instructions Recorded Confirmed Type acetaminophen 325 mg tablet 650 mg PO Q6 PRN Pain 06/05/22 09/21/22 History (Tylenol) amlodipine 5 mg tablet 5 mg PO DAILY 06/05/22 09/21/22 History apixaban 2.5 mg tablet (Eliquis) 2.5 mg PO BID 06/05/22 09/21/22 History aspirin 81 mg tablet,delayed 81 mg PO DAILY 06/05/22 09/21/22 History release atorvastatin 40 mg tablet 40 mg PO DAILY 06/05/22 09/21/22 History calcium carbonate 300 mg (750 mg) 1,200 mg PO TID PRN Indigestion 06/05/22 09/21/22 History chewable tablet (Tums E-X) furosemide 40 mg tablet (Lasix) 40 mg PO DAILY 06/05/22 09/21/22 History insulin aspart U-100 100 unit/mL 5 unit subcut BID 06/05/22 09/21/22 History (3 mL) subcutaneous pen (Novolog FlexPen U-100 Insulin aspart) insulin glargine 100 unit/mL (3 18 unit subcut BID 06/05/22 09/21/22 History mL) subcutaneous pen (Lantus Solostar U-100 Insulin) isosorbide mononitrate 60 mg 60 mg PO DAILY 06/05/22 09/21/22 History tablet,extended release 24 hr losartan 50 mg tablet 50 mg PO DAILY 06/05/22 09/21/22 History metoprolol succinate 50 mg 50 mg PO QAM 06/05/22 09/21/22 History tablet,extended release 24 hr nitroglycerin 0.4 mg sublingual 0.4 mg sublingual DIRECTED PRN 06/05/22 09/21/22 History tablet (Nitrostat) Chest Pain pantoprazole 40 mg tablet,delayed 40 mg PO DAILY 06/05/22 09/21/22 History release tamsulosin 0.4 mg capsule 0.4 mg PO DAILY 06/05/22 09/21/22 History dutasteride 0.5 mg capsule 0.5 mg PO DAILY #90 caps 08/19/22 09/21/22 Rx azithromycin 250 mg tablet 250 mg PO DAILY 09/21/22 09/21/22 History escitalopram oxalate 20 mg tablet 20 mg PO DAILY 09/21/22 09/21/22 History melatonin 5 mg tablet 5 mg PO HS 09/21/22 09/21/22 History methenamine hippurate 1 gram tablet 1 g PO DAILY 09/21/22 09/21/22 History Past Med/Surg History Medical History (Updated 09/21/22 @ 21:18 by Chaim Wells DO) ACS (acute coronary syndrome) Advanced care planning/counseling discussion BPH (benign prostatic hyperplasia) CAD (coronary artery disease) Chronic anticoagulation Dementia DM type 2 (diabetes mellitus, type 2) DNR (do not resuscitate) Dyslipidemia Dyspnea on exertion Fall Gout History of cerebral hemorrhage HTN (hypertension) Pacemaker Pancreatic cancer Paroxysmal atrial fibrillation Sinus node dysfunction SSS (sick sinus syndrome) Surgical History H/O arthroscopic knee surgery H/O colonoscopy H/O esophagogastroduodenoscopy H/O inguinal hernia repair History of pancreatectomy "07/15/2010 Dr. Pacheco [facility] [place] " S/P CABG x 1 S/P coronary artery stent placement "03/29/03 cardiac cath: RCA - stent of 90% lesion, L circ obtuse kenneth - stent of 80% lesion " S/P splenectomy S/P tonsillectomy and adenoidectomy Family History Other Family history non-contributory Social History Smoking Status: Unknown if ever smoked Tobacco Type: Cigarettes Second Hand Exposure: No; Do You Dip or Chew Tobacco: No; Hx Alcohol Use: No Hx Substance Use: No Preferred Language: Turkmen Communication Ability: Effective Communication Ability Comment: confusion Digital Media Director Required: No Beliefs That Will Affect Care: None marital status: / Current Living Situation: Correction Current Living Situation Comment: [facility] current occupational status: retired How many Children do You have: 2 Feels Safe at Home: Yes Safety Concerns: Feels Safe At This Time Assistive Devices: Oxygen - Continuous and Wheelchair Review of Systems Review of Systems: Unobtainable due to cognitive status Physical Exam Physical Exam: General: Asleep, awakens at the end of the visit, recognizes daughter at bedside, comfortable, no apparent distress Head: Normocephalic, atraumatic ENT: PERRL, EOMI, no pharyngeal exudate, mucous membranes wet Chest: Clear to auscultation, +faint wheeze on expiration, on 4L via NS with sats at 92-93%, no adventitious breath sounds Cardiac: Irregularly irregulary, rate controlled, no murmur, no JVD, normal peripheral pulses, good capillary refill Abdominal: NABS x 4 quadrants, soft, nondistended, nontender to palpation, no rebound or guarding Extremities: Normal inspection, +trace edema, no erythema, calfs nontender to palpation Psych: Normal mood and affect Neuro: awakens to stimuli, strength not assessed due to pelvic fracture and pain, no obvious motor deficits, speech is slightly garbled but not slurred Results & Data Results & Data Vital Signs (Past 12 Hours) Vital Signs Temp Pulse Pulse Resp BP BP Pulse Ox 09/21/22 18:12 60 20 94/58 L 94 09/21/22 16:22 93 09/21/22 16:22 36.2 C L 60 22 96/61 L 92 09/21/22 16:22 36.2 C L 60 22 97/59 L 92 09/21/22 16:11 63 O2 Del Method O2 Flow Rate 09/21/22 18:12 Nasal Cannula 3.5 09/21/22 16:22 Nasal Cannula 3.5 09/21/22 16:22 Nasal Cannula 3.5 09/21/22 16:22 Nasal Cannula 3.5 09/21/22 16:11 Laboratory Results 09/21/22 16:35 Aerobic Blood Culture - Pending Blood Anaerobic Blood Culture - Pending 09/21/22 16:26 Aerobic Blood Culture - Pending Blood Anaerobic Blood Culture - Pending 09/21/22 09/21/22 09/21/22 18:36 17:47 17:38 WBC RBC Hgb POC Hgb Hct POC Hct MCV MCH MCHC RDW Std Deviation RDW Coeff of Trevon Plt Count MPV Immature Gran % (Auto) Neut % (Auto) Lymph % (Auto) Hitchcock % (Auto) Eos % (Auto) Baso % (Auto) Neut # (Auto) Lymph # (Auto) Hitchcock # (Auto) Eos # (Auto) Baso # (Auto) Immature Gran # (Auto) Absolute Nucleated RBC Nucleated RBC % (auto) PT INR APTT PTT Ratio VBG pH 7.32 L VBG pCO2 46 VBG pO2 32 VBG HCO3 24 VBG O2 Saturation < 60.0 VBG Base Excess -2.6 POC Sodium Sodium POC Potassium Potassium POC Chloride Chloride Carbon Dioxide POC Total CO2 Anion Gap POC Anion Gap POC BUN BUN Creatinine POC Creatinine Est Cr Clr Drug Dosing Est GFR ( Amer) Est GFR (Non-Af Amer) BUN/Creatinine Ratio Glucose POC Glucose (other) Lactate Calcium POC Ioniz Calcium Carol Magnesium Total Bilirubin Direct Bilirubin AST ALT Alkaline Phosphatase Troponin I High Sens Total Protein Albumin Lipase Cancelled Procalcitonin SARS-CoV-2, RNA, NAAT NEGATIVE 09/21/22 09/21/22 09/21/22 16:35 16:31 16:19 WBC RBC Hgb POC Hgb 11.6 L Hct POC Hct 34 L MCV MCH MCHC RDW Std Deviation RDW Coeff of Trevon Plt Count MPV Immature Gran % (Auto) Neut % (Auto) Lymph % (Auto) Hitchcock % (Auto) Eos % (Auto) Baso % (Auto) Neut # (Auto) Lymph # (Auto) Hitchcock # (Auto) Eos # (Auto) Baso # (Auto) Immature Gran # (Auto) Absolute Nucleated RBC Nucleated RBC % (auto) PT INR APTT PTT Ratio VBG pH VBG pCO2 VBG pO2 VBG HCO3 VBG O2 Saturation VBG Base Excess POC Sodium 138 Sodium POC Potassium 5.0 Potassium POC Chloride 103 Chloride Carbon Dioxide POC Total CO2 22 L Anion Gap POC Anion Gap 18.0 POC BUN 26 H BUN Creatinine POC Creatinine 1.4 H Est Cr Clr Drug Dosing Est GFR ( Amer) Est GFR (Non-Af Amer) BUN/Creatinine Ratio Glucose POC Glucose (other) 169 H Lactate 3.4 H* Calcium POC Ioniz Calcium Carol 1.12 Magnesium Total Bilirubin Direct Bilirubin AST ALT Alkaline Phosphatase Troponin I High Sens Total Protein Albumin Lipase Procalcitonin < 0.05 SARS-CoV-2, RNA, NAAT 09/21/22 09/21/22 09/21/22 16:19 16:19 16:19 WBC 12.44 H RBC 3.67 L Hgb 10.7 L POC Hgb Hct 33.7 L POC Hct MCV 91.8 MCH 29.2 MCHC 31.8 L RDW Std Deviation 58.6 H RDW Coeff of Trevon 17.5 H Plt Count 177 MPV 11.0 Immature Gran % (Auto) 1.8 Neut % (Auto) 65.2 Lymph % (Auto) 19.7 Hitchcock % (Auto) 10.2 Eos % (Auto) 2.5 Baso % (Auto) 0.6 Neut # (Auto) 8.11 H Lymph # (Auto) 2.45 Hitchcock # (Auto) 1.27 H Eos # (Auto) 0.31 Baso # (Auto) 0.07 Immature Gran # (Auto) 0.23 H Absolute Nucleated RBC 0.02 Nucleated RBC % (auto) 0.2 PT 13.1 H INR 1.2 H APTT 27.9 PTT Ratio 1.0 VBG pH VBG pCO2 VBG pO2 VBG HCO3 VBG O2 Saturation VBG Base Excess POC Sodium Sodium 135 L POC Potassium Potassium 4.6 POC Chloride Chloride 103 Carbon Dioxide 22 POC Total CO2 Anion Gap 10 POC Anion Gap POC BUN BUN 27 H Creatinine 1.36 POC Creatinine Est Cr Clr Drug Dosing 46.3 Est GFR ( Amer) 53.8 Est GFR (Non-Af Amer) 46.5 BUN/Creatinine Ratio 19.9 Glucose 170 H POC Glucose (other) Lactate Calcium 8.3 L POC Ioniz Calcium Carol Magnesium 1.9 Total Bilirubin 1.2 H Direct Bilirubin 0.4 H AST 46 H ALT 23 Alkaline Phosphatase 134 H Troponin I High Sens 25.3 H Total Protein 7.3 Albumin 3.5 Lipase 19 Procalcitonin SARS-CoV-2, RNA, NAAT Diagnostic Findings Abdomen/Pelvis CT 09/21/22 16:14 CT SCAN OF THE CHEST, ABDOMEN, AND PELVIS WITHOUT IV CONTRAST CLINICAL HISTORY: Fall. COMPARISON STUDY: Chest CT dated 06/12/2022. Abdominal CT dated 12/31/2021. TECHNIQUE: Unenhanced CT scan of the chest, abdomen, and pelvis was performed from the thoracic inlet to the proximal femora. Images are reviewed in the axial, sagittal, and coronal planes. IV contrast was not administered for this examination. Note that the examination is suboptimal without IV contrast. A dose lowering technique was utilized adhering to the principles of ALARA. The examinations are degraded by streak artifact from the arms which could not be elevated above the chest or abdomen as well as by motion artifact. FINDINGS: CHEST: Thyroid: Imaged portions of the thyroid gland are normal in size and attenuation. Thoracic aorta: There is atherosclerotic calcification of the thoracic aorta, which is normal in caliber and demonstrates standard 3-vessel arch anatomy. Heart: A cardiac pacemaker is seen in the left chest wall. The patient is status post midline sternotomy. The enlarged in size and without pericardial effusion. The coronary arteries and aortic valve leaflets are densely calcified. Lungs and pleural spaces: Evaluation of the lung parenchyma is degraded by motion artifact. There are small pleural effusions, left larger than right with dependent atelectasis. There is no airspace consolidation typical for pneumonia or pneumothorax. Intralobular septal thickening suggests fluid overload/congestive change. There are scattered calcified granulomas. Mediastinum: Mildly enlarged mediastinal lymph nodes are similar to previous. These measure up to 14 mm short axis. Christie: Not well assessed without IV contrast. Axillae: There is no axillary lymphadenopathy. Bony thorax: The skeletal structures are osteopenic. No lytic or blastic lesions are identified. Arthritic change is noted in the shoulders. Degenerative change and hyperkyphosis is seen in the thoracic spine. There is a subacute appearing left posterior 11th rib fracture. Additional chronic/healed rib fractures are noted. ABDOMEN AND PELVIS: Liver: The unenhanced liver is cirrhotic in morphology and heterogeneous attenuation. There is nodularity of the hepatic surface contour. There is no intrahepatic biliary ductal dilatation. Gallbladder: Unremarkable. Spleen: Not identified and presumed surgically absent. Pancreas: The unenhanced pancreas is moderately atrophic. There is peripancreatic infiltration and fluid. Adrenal glands: Unremarkable. Kidneys: The unenhanced kidneys demonstrate cortical atrophy and are without hydronephrosis. No renal calculi are identified. There is no evidence of contour deforming mass lesion. Abdominal vasculature: The abdominal aorta is normal in course and caliber noting advanced atherosclerotic calcification. Bowel: There is moderate to advanced colonic diverticulosis without CT evidence of acute diverticulitis. No bowel obstruction is seen. The appendix is normal as visualized. Peritoneum: There is nonspecific mesenteric edema. No intraperitoneal free air is seen. There is trace perihepatic ascites. Lymphadenopathy: None. Pelvic viscera: The prostate gland is diminutive and heterogeneous. The bladder is distended, the wall is thickened trabecula and indicating chronic outlet o bstruction. There is evidence of bilateral inguinal herniorrhaphy. Intramuscular hemorrhage is noted within the left obturator internus. Skeletal structures: The skeletal structures are osteopenic. There are acute left superior and inferior pubic ring fractures with surrounding hemorrhage. The superior pubic ring fracture extends to the acetabulum. There is a chronic compression deformity of L1 with evidence of previous vertebroplasty. No lytic or blastic lesions are seen. There is chronic posttraumatic deformity at the sacrococcygeal junction. IMPRESSION: 1. Significantly suboptimal examinations without IV contrast. 2. There are acute left pubic ring fractures as above. The superior pubic ring fracture extends through the acetabulum. 3. No additional acute fracture is clearly seen. 4. Intramuscular hemorrhage is noted in the left obturator internus. 5. No acute posttraumatic findings are seen in the thorax. 6. Cardiomegaly and small pleural effusions. Intralobar septal thickening suggests congestive change. Correlate clinically. 7. There is no evidence of solid organ injury in the abdomen or pelvis on this unenhanced examination. 8. Mediastinal lymphadenopathy is similar to previous. 9. Cirrhotic liver morphology. 10. There is peripancreatic infiltration and trace fluid, as well as mesenteric edema. Correlate with clinical and laboratory findings for evidence of pancreatitis. 11. Additional findings as above. ACT 112: Negative or not required by law. Electronically signed by: Yousif Espinoza M.D. 09/21/2022 6:[address] 09/21/22 16:14 CT SCAN OF THE CERVICAL SPINE CLINICAL HISTORY: Fall. COMPARISON STUDY: No priors. TECHNIQUE: CT scan of the cervical spine is performed from the skull base to the upper thoracic spine. Images are reviewed in the axial, sagittal, and coronal planes. IV contrast was not administered for this examination. A dose lowering technique was utilized adhering to the principles of ALARA. FINDINGS: Skeletal structures: The skeletal structures are osteopenic. There is no evidence of fracture or subluxation involving the cervical spine. Vertebral body height and alignment are maintained. There is straightening of the cervical lordosis. Anterior osteophytes are seen throughout. The odontoid process and lateral masses are intact. The atlantoaxial articulation is preserved noting advanced productive degenerative change. The spinous processes appear intact. There is moderate to advanced multilevel cervical spondylosis. Uncovertebral and facet arthropathy contribute to neural foraminal narrowing at most levels. Intervertebral discs: There is moderate to severe disc space narrowing at all cervical levels between C3-C4 and T1-T2. Central canal: Posterior disc osteophyte complexes are seen at all cervical levels between C2-C4 and C6-C7, and likely contribute to multilevel acquired compromise of the central canal. Soft tissues: The prevertebral and paraspinous soft tissues are within normal limits. There is atherosclerotic calcification of the carotid bulbs. Pacemaker leads are seen in the left thoracic inlet. Calvarium: The visualized calvarium at the skull base appears intact. Brain parenchyma: Partially visualized brain parenchyma at the skull base is within normal limits. Sinuses and mastoids: The visualized paranasal sinuses are clear. There is trace right mastoid effusion. Lung apices: Clear as visualized. IMPRESSION: 1. There is no evidence of fracture or subluxation involving the cervical spine. 2. Osteopenia and spondylitic change as above. ACT 112: Negative or not required by law. Electronically signed by: Yousif Espinoza M.D. 09/21/2022 6:[address] 09/21/22 16:14 CT SCAN OF THE CHEST, ABDOMEN, AND PELVIS WITHOUT IV CONTRAST CLINICAL HISTORY: Fall. COMPARISON STUDY: Chest CT dated 06/12/2022. Abdominal CT dated 12/31/2021. TECHNIQUE: Unenhanced CT scan of the chest, abdomen, and pelvis was performed from the thoracic inlet to the proximal femora. Images are reviewed in the axial, sagittal, and coronal planes. IV contrast was not administered for this examination. Note that the examination is suboptimal without IV contrast. A dose lowering technique was utilized adhering to the principles of ALARA. The examinations are degraded by streak artifact from the arms which could not be elevated above the chest or abdomen as well as by motion artifact. FINDINGS: CHEST: Thyroid: Imaged portions of the thyroid gland are normal in size and attenuation. Thoracic aorta: There is atherosclerotic calcification of the thoracic aorta, which is normal in caliber and demonstrates standard 3-vessel arch anatomy. Heart: A cardiac pacemaker is seen in the left chest wall. The patient is status post midline sternotomy. The enlarged in size and without pericardial effusion. The coronary arteries and aortic valve leaflets are densely calcified. Lungs and pleural spaces: Evaluation of the lung parenchyma is degraded by motion artifact. There are small pleural effusions, left larger than right with dependent atelectasis. There is no airspace consolidation typical for pneumonia or pneumothorax. Intralobular septal thickening suggests fluid overload/congestive change. There are scattered calcified granulomas. Mediastinum: Mildly enlarged mediastinal lymph nodes are similar to previous. These measure up to 14 mm short axis. Christie: Not well assessed without IV contrast. Axillae: There is no axillary lymphadenopathy. Bony thorax: The skeletal structures are osteopenic. No lytic or blastic lesions are identified. Arthritic change is noted in the shoulders. Degenerative change and hyperkyphosis is seen in the thoracic spine. There is a subacute appearing left posterior 11th rib fracture. Additional chronic/healed rib fractures are noted. ABDOMEN AND PELVIS: Liver: The unenhanced liver is cirrhotic in morphology and heterogeneous attenuation. There is nodularity of the hepatic surface contour. There is no intrahepatic biliary ductal dilatation. Gallbladder: Unremarkable. Spleen: Not identified and presumed surgically absent. Pancreas: The unenhanced pancreas is moderately atrophic. There is peripancreatic infiltration and fluid. Adrenal glands: Unremarkable. Kidneys: The unenhanced kidneys demonstrate cortical atrophy and are without hydronephrosis. No renal calculi are identified. There is no evidence of contour deforming mass lesion. Abdominal vasculature: The abdominal aorta is normal in course and caliber noting advanced atherosclerotic calcification. Bowel: There is moderate to advanced colonic diverticulosis without CT evidence of acute diverticulitis. No bowel obstruction is seen. The appendix is normal as visualized. Peritoneum: There is nonspecific mesenteric edema. No intraperitoneal free air is seen. There is trace perihepatic ascites. Lymphadenopathy: None. Pelvic viscera: The prostate gland is diminutive and heterogeneous. The bladder is distended, the wall is thickened trabecula and indicating chronic outlet obstruction. There is evidence of bilateral inguinal herniorrhaphy. Intramuscular hemorrhage is noted within the left obturator internus. Skeletal structures: The skeletal structures are osteopenic. There are acute left superior and inferior pubic ring fractures with surrounding hemorrhage. The superior pubic ring fracture extends to the acetabulum. There is a chronic compression deformity of L1 with evidence of previous vertebroplasty. No lytic or blastic lesions are seen. There is chronic posttraumatic deformity at the sacrococcygeal junction. IMPRESSION: 1. Significantly suboptimal examinations without IV contrast. 2. There are acute left pubic ring fractures as above. The superior pubic ring fracture extends through the acetabulum. 3. No additional acute fracture is clearly seen. 4. Intramuscular hemorrhage is noted in the left obturator internus. 5. No acute posttraumatic findings are seen in the thorax. 6. Cardiomegaly and small pleural effusions. Intralobar septal thickening suggests congestive change. Correlate clinically. 7. There is no evidence of solid organ injury in the abdomen or pelvis on this unenhanced examination. 8. Mediastinal lymphadenopathy is similar to previous. 9. Cirrhotic liver morphology. 10. There is peripancreatic infiltration and trace fluid, as well as mesenteric edema. Correlate with clinical and laboratory findings for evidence of pancreatitis. 11. Additional findings as above. ACT 112: Negative or not required by law. Electronically signed by: Yousif Espinoza M.D. 09/21/2022 6:24 PM Chest X-Ray 09/21/22 16:14 SINGLE VIEW CHEST CLINICAL HISTORY: Sepsis. FINDINGS: An AP, portable, supine chest radiograph is compared to study dated 06/12/2012 and correlated with chest CT dated 06/12/2022. The examination is degraded by portable technique and patient rotation. The patient is status post midline sternotomy. A 2-lead cardiac pacemaker is unchanged in position. The heart is enlarged noting atherosclerotic calcification of the thoracic aorta. There is pulmonary vascular congestion. Chronic interstitial thickening similar to previous. There is bibasilar scarring/atelectasis. No airspace consolidation or large pleural effusion is identified. No pneumothorax is seen. The skeletal structures are osteopenic. The bony thorax is grossly intact. IMPRESSION: Cardiomegaly and cardiac pacemaker with evidence of congestive failure. ACT 112: Negative or not required by law. Electronically signed by: Yousif Espinoza M.D. 09/21/2022 4:[address] 09/21/22 16:14 CT SCAN OF THE BRAIN WITHOUT IV CONTRAST CLINICAL HISTORY: Trauma. Fall. COMPARISON STUDY: CT of the brain dated 06/11/2022. TECHNIQUE: Unenhanced axial CT scan of the brain is performed from the vertex to the skull base. A dose lowering technique was utilized adhering to the principles of ALARA. CT DOSE: 4332.09 mGy.cm FINDINGS: Brain parenchyma: There is age-related involutional change noting advanced confluent subcortical and periventricular microangiopathic disease. Foci of right frontal and right parietal encephalomalacia are unchanged and consistent with remote insults. There is no hemorrhage, mass effect, or evidence of acute territorial ischemia by CT criteria. Galeano-white matter differentiation is preserved. No extra-axial fluid collection is seen. Ventricles, sulci, cisterns: Prominent secondary to involutional change. Intracranial vasculature: There is atherosclerotic calcification of the cavernous carotid and vertebral arteries. Calvarium: The skeletal structures are osteopenic. No depressed calvarial fracture is seen. Sinuses and mastoids: The visualized paranasal sinuses are clear. There is a left mastoid effusion. The right mastoid air cells are well pneumatized. Orbits: The bony orbits are grossly intact. There is chronic deformity of the left lamina papyracea. There are bilateral ocular lens implants. IMPRESSION: There is no hemorrhage, mass effect, or evidence of acute territorial ischemia by CT criteria. ACT 112: Negative or not required by law. Electronically signed by: Yousif Espinoza M.D. 09/21/2022 6:00 PM Hip/Pelvis X-Ray 09/21/22 16:14 SINGLE VIEW PELVIS; 2 VIEWS LEFT HIP CLINICAL HISTORY: Fall. FINDINGS: AP views of the pelvis with AP and frog-leg views of the left hip are compared to study dated 01/12/2019 and correlated with pelvic CT dated 12/31/2021. The skeletal structures are osteopenic. There is no radiographic evidence of acute fracture involving the hips or bony pelvis. A bipolar right hip arthroplasty is in near anatomic alignment. No periprosthetic lucency is seen. Mild to moderate arthritic change and joint space narrowing is seen in the left hip. There is degenerative sclerosis of the sacroiliac joints. Postsurgical change projects over the left groin. Soft tissue contusion overlies the left hip. There are pelvic phleboliths. Lumbosacral spondylosis is partially imaged. IMPRESSION: 1. No acute bony abnormality is identified. 2. A left hip arthroplasty is in near anatomic alignment. 3. Soft tissue contusion overlies the left hip. Electronically signed by: Yousif Espinoza M.D. 09/21/2022 4:51 PM Code Status & VTE Plan Code Status DNR/DNI - discussed with family at bedside Supervising Physician Co-Signing Physician Notes Pt is a 87 y/o M with hx of IDDM, HFpEF, CAD s/p CABG, Afib on eliquis, Urinary incontinence, dementia, SSS s/p pacemaker, HTN, HLD admitted for acute pubic fracture 2/2 fall with acute respiratory failure. PE: NC in place, pt appeared little drowsy (but responded verbal stimuli) Lungs: fair air movement b/l with lower lobe rales Cardiac: Systolic murmur, in afib Abd: ND, soft, NT MSK: b/l moderate LE pitting edema Psych: AAOx1 (person only) A/P: Fall complicated with Superior pubic ring fracture and L obturator intramuscular hemorrhage: -CT head: no acute finding -Pt was initially had low normal BP --- BP improved with IVF -will hold Aspirin and eliquis -spoke to pts daughter (debora Miller, RN @ [facility] and POA) ----at this time not leaning toward surgery considering pts comorbities but willing to get ortho recommendation -due to intramuscular hemorrhage will repeat CT abd/pelvis tomorrow -trend cbc -Due to dementia with worsening clinical status will get palliative consult -due to keeping the pt NPO will do maintenance fluids for 500 cc total ---- admit to tele ----- POA (daughter: not interested in Pressors if needed) -will hold pts HTN meds Acute hypoxia with current treatment for Pneumonia from outpt -procal is neg however due to pts current lung finding will continue zosyn (possible hx of aspiration) -will wean off of oxygen as pt tolerates Agree with A/p by Rosalind Arriola PA-C (1) Fall Encounter type: initial encounter Qualified Code(s): W19.XXXA - Unspecified fall, initial encounter (7) CHF (congestive heart failure) Heart failure chronicity: acute on chronic Heart failure type: unspecified Qualified Code(s): I50.9 - Heart failure, unspecified
[2022-09-21] MEDS ORDERED: SODIUM CHLORIDE 0.9% 500 ML IV SCH (19:30)
[2022-09-21] MEDS ORDERED: GLUCOSE 40% GEL 15 GM TUBE PO PRN (20:04)
[2022-09-21] MEDS ORDERED: CARBOHYDRATES FOR HYPOGLYCEMIA PO PRN (20:04)
[2022-09-21] MEDS ORDERED: GLUCOSE 10 TAB/TUBE PO PRN (20:04)
[2022-09-21] MEDS ORDERED: PHARMACY GLYCEMIC MGMT CONSULT PRN (20:04)
[2022-09-21] MEDS ORDERED: DEXTROSE 50% 50 ML SYRINGE IV PRN (20:04)
[2022-09-21] MEDS ORDERED: GLUCAGON FOR INJ 1 MG VIAL SQ PRN (20:04)
[2022-09-21] MEDS ORDERED: ACETAMINOPHEN 325 MG TAB PO PRN (20:45)
[2022-09-21] MEDS ORDERED: ONDANSETRON INJ 2 MG/ML 2 ML VIAL IV PRN (20:45)
[2022-09-21] MEDS ORDERED: INSULIN ASPART PER UNIT CHARGE SC SCH (21:00)
[2022-09-21] MEDS ORDERED: INSULIN GLARGINE 100 UNIT/ML VIAL SC SCH (21:00)
[2022-09-21] MEDS: ACETAMINOPHEN 1,000 MG/100 ML VIAL IV SCH (21:16)
[2022-09-21] MEDS: MoRPHine SULFATE 2 MG/ML CARP IV PRN (21:17)
[2022-09-21] MEDS: PIPERACILLIN/TAZOBACTAM 4.5 GM in DEXTROSE 5% 100 ML IV SCH (21:39)
[2022-09-21] MEDS: LANTUS PER UNIT CHARGE SC SCH (21:44)
--- NOTE | 2022-09-21 22:21 | Communication Note ---
Date of Service: September 21, 2022 [address] and pelvic CT reviewed. Patient has a lateral compression pelvis fracture involving the superior and inferior pubic rami. Acetabulum oth erwise appears intact/congruent and there does not appear to be any posterior SI joint injury. Patient may be weight-bear as tolerated left lower extremity with a walker.
[2022-09-22] MEDS: INSULIN ASPART PER UNIT CHARGE SC SCH ×6 (00:03→19:51)
[2022-09-22] MEDS: ACETAMINOPHEN 1,000 MG/100 ML VIAL IV SCH ×3 (05:45→20:48)
[2022-09-22] MEDS: PIPERACILLIN/TAZOBACTAM 4.5 GM in DEXTROSE 5% 100 ML IV SCH ×2 (06:00→12:59)
[2022-09-22] MEDS: MoRPHine SULFATE 2 MG/ML CARP IV PRN (06:13)
[2022-09-22 07:02] LABS: Hematocrit (blood only) 30.8 % (42.0-52.0); Hemoglobin 9.8 g/dl (14.0-18.0); Mean Corpuscular Hemoglobin 28.9 pg (25.0-34.0); Mean Corpuscular Hgb Conc 31.8 g/dL (32.0-36.0); Mean Corpuscular Volume 90.9 fL (80.0-100.0); Mean Platelet Volume 10.4 fL (9.4-12.4); Platelet Count 145 K/uL (130-400); RDW Coefficient of Variation 17.4 % (11.5-14.5); RDW Standard Deviation 57.9 fL (36.4-46.3); Red Blood Count 3.39 M/uL (4.70-6.10); White Blood Count 9.93 K/ul (4.8-10.8)
[2022-09-22 07:26] LABS: Calcium 8.1 mg/dl (8.6-10.3); Creatinine Clr Calc Pharmacy 38.6 ml/min; Est GFR (African American) 42.6 ml/min; Est GFR (Non-African American) 36.8 ml/min; Magnesium 1.9 mg/dl (1.7-2.4); Potassium 4.8 mmol/L (3.5-5.1)
[2022-09-22] MEDS ORDERED: FUROSEMIDE INJ 20 MG/2 ML VIAL IV ONE (08:08)
[2022-09-22 08:20] LABS: Estimated Average Glucose 183 mg/dl
[2022-09-22 08:29] LABS: Appearance Urine Clear (Clear); Bacteria Urine Automated Negative (Negative); Bilirubin Urine Negative (Negative); Blood Urine Negative (Negative); Color Urine Dark Yellow; Epithelial Cell Urine Auto >30 /lpf (0-5); Glucose Urine UA Negative (Negative); Ketones Urine Negative (Negative); Leukocyte Esterase Urine Negative (Negative); Nitrite Urine Negative (Negative); Protein Urine 1+ (Negative); RBC Urine Automated 0-4 /hpf (0-4); Specific Gravity Urine 1.015 (1.000-1.030); Urobilinogen Urine Negative (Negative); pH Urine 5.5 (4.5-7.5)
[2022-09-22] MEDS: AVODART~ORDER AWAITING ACTION SCH ×4 (08:37→21:20)
[2022-09-22] MEDS: TAMSULOSIN HCL 0.4 MG CAP PO SCH (08:38)
[2022-09-22] MEDS: LANTUS PER UNIT CHARGE SC SCH ×2 (08:38→19:52)
[2022-09-22] MEDS: ATORVASTATIN 40 MG TAB PO SCH (08:38)
[2022-09-22] MEDS: METOPROLOL SUCC 50MG EXT REL TAB PO SCH (08:38)
[2022-09-22 08:41] LABS: Renal Epithelial Cells Urine 0-5 /lpf (0-5)
--- NOTE | 2022-09-22 09:01 | Pharmacy Report ---
Pharmacy Glycemic Short Note 2 - Date of Service September 22, 2022 - Glycemic Short BSG Results (Last 24 hours): 09/21/22 09/21/22 09/21/22 16:19 16:31 21:21 Glucose 170 H POC Glucose 176 H POC Glucose (other) 169 H 09/21/22 09/22/22 09/22/22 23:58 05:49 06:19 Glucose 88 POC Glucose 181 H 109 H POC Glucose (other) OUTPATIENT ANTIDIABETIC REGIMEN: * Lantus 18 units SC BID * Novolog 5 units SC BIDM HbA1c: 8% (09/22/22) ASSESSMENT: * BEN is a 87 year old male admitted on 09/21 for lateral compression pelvic fracture secondary to fall * Pertinent PMH includes T2DM (reasonably well-controlled based on A1c and age), dementia, CAD, Afib, etc. * Palliative care consulted due to multiple chronic comorbidities * Patient received 6 units of Lantus and 2 units of Novolog last evening * Will utilize conservative ongoing insulin regimen with goal of preventing hypoglycemia PLAN FOR INPATIENT GLYCEMIC CONTROL: * Hold outpatient oral diabetes medications * Basal insulin * 0-10 units SC HS (see EHR for details) * Bolus insulin * NovoLog per scale ACHS or Q6hrs while NPO * Goal Range: Low 120 mg/dL - High 160 mg/dL * Correction Factor: 35 mg/dL/unit * Nutritional / Prandial insulin per carb ratio of 1 unit per 12 grams CHO consumed
--- NOTE | 2022-09-22 09:21 | Palliative Care Consultation ---
Date of Consultation September 22, 2022 Assessment & Plan (1) Palliative care by specialist: (2) Advanced care planning/counseling discussion: Advance illness planning conversations are conducted to review goals and expectations, support shared decision-making, and engage in disease specific advance care planning. This type of advance care planning is sometimes referred to as 'preparedness planning. It is used to review the risks and benefits of offered therapy, elicit and deepen understanding of the underlying illness and therapeutic options, ensure adequate psychosocial support, address existential concerns and coping, and engage in end-of-life planning. Preparedness planning is not meant to replace informed consent discussions. Palliative medicine plays a role in the process of deepening a patients understanding of this specific medical intervention and ensuring this treatment aligns with their goals of care remains a central tenet of the planning conversation. I called pt dtr/EVANGELINA Arambula - [facility] req call back (3) Metabolic encephalopathy: (4) Dementia: Dementia behavioral disturbance: without behavioral disturbance Dementia type: unspecified type Qualified Code(s): F03.90 - Unspecified dementia without behavioral disturbance (5) Aspiration pneumonia: (6) Acute respiratory failure with hypoxia: (7) Fall: Encounter type: initial encounter Qualified Code(s): W19.XXXA - Unspecified fall, initial encounter (8) Generalized weakness: (9) Pelvic fracture: (10) Persistent atrial fibrillation: (11) Acute on chronic heart failure: Heart failure type: systolic Qualified Code(s): I50.23 - Acute on chronic systolic (congestive) heart failure Plan Family meeting recommended, notified primary team and CM. Left message for dtr.EVANGELINA Arambula req call back updated primary team and nursing Thank you for allowing us to participate in the ongoing care of this patient. Please don't hesitate to call or page with any additional concerns. Dr. Maria Ines Hernández DNP Director, Palliative Care History of Present Illness Reason for Consultation: On 09/21/22 @ 19:14 Rosalind Arriola Wrote To Maria Ines Hernández Goals of care Attending Physician: Je Best MD History of Present Illness Per admitting note: "This is an 87-year-old male with past medical history significant for insulin-dependent diabetes; heart failure with preserved ej ection fraction; CAD status post CABG; AFib, on Eliquis; history of chronic indwelling catheter, but was now taken off because of recurrent UTI; history of urinary incontinence; dementia; sick sinus syndrome, status post pacemaker; hypertension; hyperlipidemia, currently living at [facility] in [place] who presents today after being found by EMS at [facility] after a fall. Pt was recently admitted earlier this year 06/05-06/10 due to acute respiratory failure with hypoxia secondary to acute on chronic systolic heart failure. He was then readmitted on 06/11- 06/16 with acute metabolic encephalopathy likely secondary to pneumonia, concern for aspiration and UTI. Pt daughter Ralf is present amongst other friends at bedside. She received call this afternoon at 3:22 from [facility] that the patient was found down and blue in his face, and RR was 8. EMS was called and when he was loaded into ambulance he was awake and yelling that he had pain in his arm, and this was around 4 pm. Pt knows he is in the hospital and is recognizing family at bedside. He was given fentanyl 25 mcg for significant pelvic pain with minimal movement and now is calm, asleep, and requiring oxygen where he typically does not need any at baseline. She notes that yesterday he was started on an antibiotic tablet at [place] as there were concerns for new onset pneumonia as he had increased shortness of breath and some wheezing yesterday heard by her brother (he is not present here) while he was visiting the patient there yesterday. No known episodes of fever. No known other infectious source. Patient is unable to participate or provide his own ROS. CT of the abdomen pelvis was done, which shows a left obturator internus hematoma, The bladder is distended, the wall is thickened trabecula and indicating chronic outlet obstruction. There is evidence of bilateral inguinal herniorrhaphy. Intramuscular hemorrhage is noted within the left obturator internus. The skeletal structures are osteopenic. There are acute left superior and inferior pubic ring fractures with surrounding hemorrhage. The superior pubic ring fracture extends to the acetabulum. There is a chronic compression deformity of L1 with evidence of previous vertebroplasty. No lytic or blastic lesions are seen. There is chronic posttraumatic deformity at the sacrococcygeal junction. Labs reveal leukocytosis with WBC = 12.44, anemia with hemoglobin of 10.7, platelets are stable at 177, INR = 1.2, (patient was recently transitioned off of Coumadin and on Eliquis), lactic acid of 2.0, troponin of 25.3." "Palliative care consulted for multiple chronic comorbidities, family agrees that he is a DNR/DNI, also discussed with them regarding if he would need possible vasopressor support they would not want this. Family reports that his quality of life is poor currently and do not want to prolong life artificially. They are agreeable to antibiotics for presumed pneumonia and gentle hydration while he is n.p.o." Patient is seen bedside, no family present. he is pleasantly confused Allergies Allergy/AdvReac Type Severity Reaction Status Date / Time shellfish derived Allergy Severe anaphylaxis Verified 06/05/22 16:36 clopidogrel Allergy Intermediate INTERNAL Verified 06/05/22 16:36 HIVES Penicillins Allergy Intermediate HIVES Verified 06/14/22 08:27 Home Medications Medication Instructions Recorded Confirmed Type acetaminophen 325 mg tablet 650 mg PO Q6 PRN Pain 06/05/22 09/21/22 History (Tylenol) amlodipine 5 mg tablet 5 mg PO DAILY 06/05/22 09/21/22 History apixaban 2.5 mg tablet (Eliquis) 2.5 mg PO BID 06/05/22 09/21/22 History aspirin 81 mg tablet,delayed 81 mg PO DAILY 06/05/22 09/21/22 History release atorvastatin 40 mg tablet 40 mg PO DAILY 06/05/22 09/21/22 History calcium carbonate 300 mg (750 mg) 1,200 mg PO TID PRN Indigestion 06/05/22 09/21/22 History chewable tablet (Tums E-X) furosemide 40 mg tablet (Lasix) 40 mg PO DAILY 06/05/22 09/21/22 History insulin aspart U-100 100 unit/mL 5 unit subcut BID 06/05/22 09/21/22 History (3 mL) subcutaneous pen (Novolog FlexPen U-100 Insulin aspart) insulin glargine 100 unit/mL (3 18 unit subcut BID 06/05/22 09/21/22 History mL) subcutaneous pen (Lantus Solostar U-100 Insulin) isosorbide mononitrate 60 mg 60 mg PO DAILY 06/05/22 09/21/22 History tablet,extended release 24 hr losartan 50 mg tablet 50 mg PO DAILY 06/05/22 09/21/22 History metoprolol succinate 50 mg 50 mg PO QAM 06/05/22 09/21/22 History tablet,extended release 24 hr nitroglycerin 0.4 mg sublingual 0.4 mg sublingual DIRECTED PRN 06/05/22 09/21/22 History tablet (Nitrostat) Chest Pain pantoprazole 40 mg tablet,delayed 40 mg PO DAILY 06/05/22 09/21/22 History release tamsulosin 0.4 mg capsule 0.4 mg PO DAILY 06/05/22 09/21/22 History dutasteride 0.5 mg capsule 0.5 mg PO DAILY #90 caps 08/19/22 09/21/22 Rx azithromycin 250 mg tablet 250 mg PO DAILY 09/21/22 09/21/22 History escitalopram oxalate 20 mg tablet 20 mg PO DAILY 09/21/22 09/21/22 History melatonin 5 mg tablet 5 mg PO HS 09/21/22 09/21/22 History methenamine hippurate 1 gram tablet 1 g PO DAILY 09/21/22 09/21/22 History Patient History Medical History ACS (acute coronary syndrome) Advanced care planning/counseling discussion BPH (benign prostatic hyperplasia) CAD (coronary artery disease) Chronic anticoagulation Dementia DM type 2 (diabetes mellitus, type 2) DNR (do not resuscitate) Dyslipidemia Dyspnea on exertion Fall Gout History of cerebral hemorrhage HTN (hypertension) Pacemaker Palliative care by specialist Pancreatic cancer Paroxysmal atrial fibrillation Sinus node dysfunction SSS (sick sinus syndrome) Surgical History H/O arthroscopic knee surgery H/O colonoscopy H/O esophagogastroduodenoscopy H/O inguinal hernia repair History of pancreatectomy "07/15/2010 Dr. Pacheco [facility] [place] " S/P CABG x 1 S/P coronary artery stent placement "03/29/03 cardiac cath: RCA - stent of 90% lesion, L circ obtuse kenneth - stent of 80% lesion " S/P splenectomy S/P tonsillectomy and adenoidectomy Family History Other Family history non-contributory Social History Smoking Status: Unknown if ever smoked Tobacco Type: Cigarettes Second Hand Exposure: No; Do You Dip or Chew Tobacco: No; Hx Alcohol Use: No Hx Substance Use: No Preferred Language: Kyrgyz Communication Ability: Effective Communication Ability Comment: confusion Receiving Coordinator Required: No Beliefs That Will Affect Care: None marital status: / Current Living Situation: Long Term Current Living Situation Comment: [facility] current occupational status: retired How many Children do You have: 2 Feels Safe at Home: Yes Safety Concerns: Feels Safe At This Time Assistive Devices: Walker Review of Systems Review of Systems: All systems reviewed & are unremarkable except as noted in Subjective and Unobtainable due to cognitive status Physical Exam Physical Exam: Elderly male, semi reclined. alert to self but otherwise pleasantly confused. bitemp wasting PERRLA coarse scatt rhonchi, no wheeze S1S2, no gross JVD abd softly distended generalized weakness unable to follow commands BLE with venous insuff changes skin pale Results & Data Vital Signs (Past 12 Hours) Vital Signs Temp Pulse Pulse Resp BP BP Pulse Ox 09/22/22 07:20 36.5 C 63 16 121/71 97 09/22/22 03:10 36.6 C 65 18 117/71 97 09/21/22 22:49 36.6 C 62 20 122/71 96 09/21/22 22:00 60 O2 Del Method O2 Flow Rate 09/22/22 07:20 Nasal Cannula 4 09/22/22 03:10 Nasal Cannula 4 09/21/22 22:49 Nasal Cannula 4 09/21/22 22:00 Laboratory Results labs reviewed Diagnostic Findings imaging reviewed PG Care Time/CCT Total # of Minutes Spent Total Time Spent: 75 Total Time Spent with Patient: Total time spent is greater than 50% in coordination of care (as documented) at patient's floor/unit and/or counseling patient: [place] [address] IN/OBS CONSULT LVL 5,80M Patient Type New History Comprehensive Exam Comprehensive Medical Decision Making High Complexity Diagnoses Palliative care by specialist Z51.5 Advanced care planning/counseling discussion Z71.89 Metabolic encephalopathy G93.41 Dementia F03.90 Dementia behavioral disturbance: without behavioral disturbance Dementia type: unspecified type Aspiration pneumonia J69.0 Acute respiratory failure with hypoxia J96.01 Fall W19.XXXA Encounter type: initial encounter Generalized weakness R53.1 Pelvic fracture S32.9XXA Persistent atrial fibrillation I48.19 Acute on chronic heart failure I50.23 Heart failure type: systolic
--- NOTE | 2022-09-22 13:21 | Hospitalist Progress Note ---
Date of Service September 22, 2022 Assessment & Plan (1) Fall: (2) Pelvic fracture: (3) Hematoma: Plan: Patient is a 87-year-old male with past medical history of insulin-dependent diabetes mellitus, CAD status post CABG, A-fib on Eliquis, sick sinus syndrome status post pacemaker presented to the hospital after he was found to have a fall. CT abdomen pelvis done on ED showed acute left superior and inferior pubic rami fracture. There was also intramuscular hematoma in left obturator internus. As per orthopedics we reviewed the images; recommended weightbearing as tolerated on left lower extremity with a walker. Eliquis kept on hold due to concern for obturator hematoma. Pain control with [id number] Tylenol and low-dose of narcotics. PT OT ordered. We will continue to hold aspirin. Monitor CBC CT abdomen and pelvis reviewed from this morning; intrapelvic extraperitoneal hemorrhage around pubic ring fracture modestly increased. We will continue to hold Eliquis. Palliative consulted on admission (4) Generalized weakness: (5) Aspiration pneumonia: Plan: History of aspiration pneumonia. Patient was started on antibiotic on admission due to concern for pneumonia. CT chest reviewed; no suggestion of pneumonia. Suggestive of fluid overload. Pro-Primo negative. Will discontinue antibiotic. Speech saw the patient. Patient had VFSS last admission; recommended to continue diet. (6) Persistent atrial fibrillation: Plan: -Rate controlled with metoprolol, will allow this in the setting that blood pressure improves overnight -Holding Eliquis and baby aspirin with hematoma in left obturator muscle as described in imaging studies above Started on DVT prophylaxis for now. (7) CHF (congestive heart failure): (8) ASCVD (arteriosclerotic cardiovascular disease): (9) S/P CABG x 2: (10) SSS (sick sinus syndrome): (11) HTN (hypertension): (12) Pacemaker: (13) Dyslipidemia: Plan: - Chronic right heart failure, valvular heart disease with [id number] valvular aortic stenosis, [id number] mitral regurgitation, [id number] tiffanie tricuspid regurgitation -Resume Lasix; will hold off on amlodipine, losartan and isosorbide for now. Continue on metoprolol for rate control for A-fib -Reintroduce antihypertensive as blood pressure improves. Telemetry monitoring (14) DM type 2 (diabetes mellitus, type 2): Plan: -Lantus twice daily and SSI. -Last A1c was 7.7 in May 2022, repeat with am labs - Glycemic pharmacy consulted DVT PPx -SCDs due to concern for intramuscular hematoma. Home Eliquis on hold. CODE: DNR/DNI Dispo: PT OT eval pending; will likely need placement. Time spent evaluating patient, direct bedside care, chart review, placing orders, interpretation of diagnostic studies, discussion with consultants, patient, and family members, as well as other required patient management activities is 60 minutes. Please note the above document was generated using voice recognition software. It may contain grammatical, syntax or spelling errors. Any formal questions or concerns about the content, text or information contained within the body of this dictation should be directly addressed to the provider for clarification Admission and Anticipated Discharge Date Admission Date: September 21, 2022 Subjective Patient seen and examined at bedside. He is awake, oriented to self. He reports that he is in the hospital. He is unsure why he is in the hospital. Review of Systems Review of Systems: All systems reviewed & are unremarkable except as noted in Subjective Physical Exam Physical Exam: Constitutional: Awake, oriented to self and place. Not in any distress. Respiratory: normal respiratory effort, lungs clear to auscultation, no wheeze, rales, rhonchi. Normal insp/exp effort, no accessory muscle use Cardiovascular: RRR, no murmur, no edema Vessels: no JVD or carotid bruit Chest: normal inspection of chest Abdomen: normal bowel sounds, soft, nontender, no hepatosplenomegaly Musculoskeletal: no cyanosis or clubbing Bilateral pitting edema present. ROM painful on left hip. Skin: no rashes, warm and dry normal turgor Neurologic: Awake, oriented to self and place. Follows simple commands. Psychiatric: A+Ox3, euthymic affect Lymphatic: no cervical or axillary lymphadenopathy : deferred Results & Data Results & Data Vital Signs (Past 12 Hours) Vital Signs Temp Pulse Pulse Resp BP Pulse Ox O2 Del Method 09/22/22 11:37 36.7 C 65 20 111/66 98 Nasal Cannula 09/22/22 09:56 Nasal Cannula 09/22/22 09:56 62 09/22/22 07:20 36.5 C 63 16 121/71 97 Nasal Cannula 09/22/22 03:10 36.6 C 65 18 117/71 97 Nasal Cannula O2 Flow Rate 09/22/22 11:37 4.0 09/22/22 09:56 4 09/22/22 09:56 09/22/22 07:20 4 09/22/22 03:10 4 Laboratory Results Laboratory Results WBC 9.93 K/ul (4.8-10.8) 09/22/22 06:19 RBC 3.39 M/uL (4.70-6.10) L 09/22/22 06:19 Hgb 9.8 g/dl (14.0-18.0) L 09/22/22 06:19 POC Hgb 11.6 g/dl (14.0-18.0) L 09/21/22 16:31 Hct 30.8 % (42.0-52.0) L 09/22/22 06:19 POC Hct 34 % (42-52) L 09/21/22 16:31 MCV 90.9 fL (80.0-100.0) 09/22/22 06:19 MCH 28.9 pg (25.0-34.0) 09/22/22 06:19 MCHC 31.8 g/dL (32.0-36.0) L 09/22/22 06:19 RDW Std Deviation 57.9 fL (36.4-46.3) H 09/22/22 06:19 RDW Coeff of Trevon 17.4 % (11.5-14.5) H 09/22/22 06:19 Plt Count 145 K/uL (130-400) 09/22/22 06:19 MPV 10.4 fL (9.4-12.4) 09/22/22 06:19 Immature Gran % (Auto) 1.8 % 09/21/22 16:19 Neut % (Auto) 65.2 % 09/21/22 16:19 Lymph % (Auto) 19.7 % 09/21/22 16:19 Orange % (Auto) 10.2 % 09/21/22 16:19 Eos % (Auto) 2.5 % 09/21/22 16:19 Baso % (Auto) 0.6 % 09/21/22 16:19 Neut # (Auto) 8.11 K/uL (1.40-6.50) H 09/21/22 16:19 Lymph # (Auto) 2.45 K/uL (1.2-3.4) 09/21/22 16:19 Orange # (Auto) 1.27 K/uL (0.11-0.59) H 09/21/22 16:19 Eos # (Auto) 0.31 K/uL (0-0.50) 09/21/22 16:19 Baso # (Auto) 0.07 K/uL (0-0.2) 09/21/22 16:19 Immature Gran # (Auto) 0.23 K/uL (0.01-0.20) H 09/21/22 16:19 Absolute Nucleated RBC 0.02 K/uL (0-0.12) 09/21/22 16:19 Nucleated RBC % (auto) 0.2 % 09/21/22 16:19 PT 13.1 Seconds (9.0-12.0) H 09/21/22 16:19 INR 1.2 (0.9-1.1) H 09/21/22 16:19 APTT 27.9 Seconds (21.0-31.0) 09/21/22 16:19 PTT Ratio 1.0 09/21/22 16:19 VBG pH 7.32 (7.36-7.41) L 09/21/22 17:38 VBG pCO2 46 mmHg (38-50) 09/21/22 17:38 VBG pO2 32 mmHg 09/21/22 17:38 VBG HCO3 24 mmol/L 09/21/22 17:38 VBG O2 Saturation < 60.0 % 09/21/22 17:38 VBG Base Excess -2.6 mEq/L 09/21/22 17:38 POC Sodium 138 mmol/L (135-144) 09/21/22 16:31 Sodium 136 mmol/L (136-145) 09/22/22 06:19 POC Potassium 5.0 mmol/L (3.3-5.0) 09/21/22 16:31 Potassium 4.8 mmol/L (3.5-5.1) 09/22/22 06:19 POC Chloride 103 mmol/L (101-112) 09/21/22 16:31 Chloride 106 mmol/L (98-107) 09/22/22 06:19 Carbon Dioxide 25 mmol/L (21-32) 09/22/22 06:19 POC Total CO2 22 mmol/L (24-31) L 09/21/22 16:31 Anion Gap 5 (3-11) 09/22/22 06:19 POC Anion Gap 18.0 mmol/L (16-25) 09/21/22 16:31 POC BUN 26 mg/dl (7-18) H 09/21/22 16:31 BUN 33 mg/dl (6-23) H 09/22/22 06:19 Creatinine 1.65 mg/dl (0.6-1.4) H 09/22/22 06:19 POC Creatinine 1.4 mg/dl (0.6-1.3) H 09/21/22 16:31 Est Cr Clr Drug Dosing 38.6 ml/min 09/22/22 06:19 Est GFR ( Amer) 42.6 ml/min 09/22/22 06:19 Est GFR (Non-Af Amer) 36.8 ml/min 09/22/22 06:19 BUN/Creatinine Ratio 20.0 (10-20) 09/22/22 06:19 Glucose 88 mg/dl (70-99(Fasting)) 09/22/22 06:19 POC Glucose 148 mg/dl (70-99) H 09/22/22 12:05 POC Glucose (other) 169 mg/dl (70-99) H 09/21/22 16:31 Estimat Average Glucose 183 mg/dl 09/22/22 06:19 Hemoglobin A1c 8.0 % (4.5-5.6) H 09/22/22 06:19 Lactate 2.0 mmol/L (0.4-2.0) 09/21/22 19:01 Calcium 8.1 mg/dl (8.6-10.3) L 09/22/22 06:19 POC Ioniz Calcium Carol 1.12 mmol/l (1.12-1.32) 09/21/22 16:31 Magnesium 1.9 mg/dl (1.7-2.4) 09/22/22 06:19 Total Bilirubin 1.2 mg/dl (0.2-1.0) H 09/21/22 16:19 Direct Bilirubin 0.4 mg/dl (0-0.2) H 09/21/22 16:19 AST 46 U/L (13-39) H 09/21/22 16:19 ALT 23 U/L (7-52) 09/21/22 16:19 Alkaline Phosphatase 134 U/L (34-104) H 09/21/22 16:19 Troponin I High Sens 25.3 pg/ml (0-20) H 09/21/22 16:19 Total Protein 7.3 gm/dl (6.0-8.3) 09/21/22 16:19 Albumin 3.5 gm/dl (3.4-5.0) 09/21/22 16:19 Lipase Cancelled 09/21/22 18:36 Procalcitonin < 0.05 ng/ml (0-0.5) 09/21/22 16:19 Urine Color Dark Yellow 09/22/22 07:45 Urine Appearance Clear (Clear) 09/22/22 07:45 Urine pH 5.5 (4.5-7.5) 09/22/22 07:45 Ur Specific [place] 1.015 (1.000-1.030) 09/22/22 07:45 Urine Protein 1+ (Negative) H 09/22/22 07:45 Urine Glucose (UA) Negative (Negative) 09/22/22 07:45 Urine Ketones Negative (Negative) 09/22/22 07:45 Urine Blood Negative (Negative) 09/22/22 07:45 Urine Nitrite Negative (Negative) 09/22/22 07:45 Urine Bilirubin Negative (Negative) 09/22/22 07:45 Urine Urobilinogen Negative (Negative) 09/22/22 07:45 Ur Leukocyte Esterase Negative (Negative) 09/22/22 07:45 Urine WBC (Auto) 5-10 /hpf (0-5) H 09/22/22 07:45 Urine RBC (Auto) 0-4 /hpf (0-4) 09/22/22 07:45 U Hyaline Cast (Auto) 1-5 /lpf (0-5) 09/22/22 07:45 U Epithel Cells (Auto) >30 /lpf (0-5) H 09/22/22 07:45 Urine Bacteria (Auto) Negative (Negative) 09/22/22 07:45 Ur Renal Epithelial Cell 0-5 /lpf (0-5) 09/22/22 07:45 Nasal Screen MRSA (PCR) Negative (Negative) 09/21/22 Unknown SARS-CoV-2, RNA, NAAT NEGATIVE (NEGATIVE) 09/21/22 17:[address] 09/21/22 16:14 CT SCAN OF THE CERVICAL SPINE CLINICAL HISTORY: Fall. COMPARISON STUDY: No priors. TECHNIQUE: CT scan of the cervical spine is performed from the skull base to the upper thoracic spine. Images are reviewed in the axial, sagittal, and coronal planes. IV contrast was not administered for this examination. A dose lowering technique was utilized adhering to the principles of ALARA. FINDINGS: Skeletal structures: The skeletal structures are osteopenic. There is no evidence of fracture or subluxation involving the cervical spine. Vertebral body height and alignment are maintained. There is straightening of the cervical lordosis. Anterior osteophytes are seen throughout. The odontoid process and lateral masses are intact. The atlantoaxial articulation is preserved noting advanced productive degenerative change. The spinous processes appear intact. There is moderate to advanced multilevel cervical spondylosis. Uncovertebral and facet arthropathy contribute to neural foraminal narrowing at most levels. Intervertebral discs: There is moderate to severe disc space narrowing at all cervical levels between C3-C4 and T1-T2. Central canal: Posterior disc osteophyte complexes are seen at all cervical levels between C2-C4 and C6-C7, and likely contribute to multilevel acquired compromise of the central canal. Soft tissues: The prevertebral and paraspinous soft tissues are within normal limits. There is atherosclerotic calcification of the carotid bulbs. Pacemaker leads are seen in the left thoracic inlet. Calvarium: The visualized calvarium at the skull base appears intact. Brain parenchyma: Partially visualized brain parenchyma at the skull base is within normal limits. Sinuses and mastoids: The visualized paranasal sinuses are clear. There is trace right mastoid effusion. Lung apices: Clear as visualized. IMPRESSION: 1. There is no evidence of fracture or subluxation involving the cervical spine. 2. Osteopenia and spondylitic change as above. ACT 112: Negative or not required by law. Electronically signed by: Yousif Espinoza M.D. 09/21/2022 6:[address] 09/21/22 16:14 CT SCAN OF THE CHEST, ABDOMEN, AND PELVIS WITHOUT IV CONTRAST CLINICAL HISTORY: Fall. COMPARISON STUDY: Chest CT dated 06/12/2022. Abdominal CT dated 12/31/2021. TECHNIQUE: Unenhanced CT scan of the chest, abdomen, and pelvis was performed from the thoracic inlet to the proximal femora. Images are reviewed in the axial, sagittal, and coronal planes. IV contrast was not administered for this examination. Note that the examination is suboptimal without IV contrast. A dose lowering technique was utilized adhering to the principles of ALARA. The examinations are degraded by streak artifact from the arms which could not be elevated above the chest or abdomen as well as by motion artifact. FINDINGS: CHEST: Thyroid: Imaged portions of the thyroid gland are normal in size and attenuation. Thoracic aorta: There is atherosclerotic calcification of the thoracic aorta, which is normal in caliber and demonstrates standard 3-vessel arch anatomy. Heart: A cardiac pacemaker is seen in the left chest wall. The patient is status post midline sternotomy. The enlarged in size and without pericardial effusion. The coronary arteries and aortic valve leaflets are densely calcified. Lungs and pleural spaces: Evaluation of the lung parenchyma is degraded by motion artifact. There are small pleural effusions, left larger than right with dependent atelectasis. There is no airspace consolidation typical for pneumonia or pneumothorax. Intralobular septal thickening suggests fluid overload/congestive change. There are scattered calcified granulomas. Mediastinum: Mildly enlarged mediastinal lymph nodes are similar to previous. These measure up to 14 mm short axis. Christie: Not well assessed without IV contrast. Axillae: There is no axillary lymphadenopathy. Bony thorax: The skeletal structures are osteopenic. No lytic or blastic lesions are identified. Arthritic change is noted in the shoulders. Degenerative change and hyperkyphosis is seen in the thoracic spine. There is a subacute appearing left posterior 11th rib fracture. Additional chronic/healed rib fractures are noted. ABDOMEN AND PELVIS: Liver: The unenhanced liver is cirrhotic in morphology and heterogeneous attenuation. There is nodularity of the hepatic surface contour. There is no intrahepatic biliary ductal dilatation. Gallbladder: Unremarkable. Spleen: Not identified and presumed surgically absent. Pancreas: The unenhanced pancreas is moderately atrophic. There is peripancreatic infiltration and fluid. Adrenal glands: Unremarkable. Kidneys: The unenhanced kidneys demonstrate cortical atrophy and are without hydronephrosis. No renal calculi are identified. There is no evidence of contour deforming mass lesion. Abdominal vasculature: The abdominal aorta is normal in course and caliber noting advanced atherosclerotic calcification. Bowel: There is moderate to advanced colonic diverticulosis without CT evidence of acute diverticulitis. No bowel obstruction is seen. The appendix is normal as visualized. Peritoneum: There is nonspecific mesenteric edema. No intraperitoneal free air is seen. There is trace perihepatic ascites. Lymphadenopathy: None. Pelvic viscera: The prostate gland is diminutive and heterogeneous. The bladder is distended, the wall is thickened trabecula and indicating chronic outlet obstruction. There is evidence of bilateral inguinal herniorrhaphy. Intramuscular hemorrhage is noted within the left obturator internus. Skeletal structures: The skeletal structures are osteopenic. There are acute left superior and inferior pubic ring fractures with surrounding hemorrhage. The superior pubic ring fracture extends to the acetabulum. There is a chronic compression deformity of L1 with evidence of previous vertebroplasty. No lytic or blastic lesions are seen. There is chronic posttraumatic deformity at the sacrococcygeal junction. IMPRESSION: 1. Significantly suboptimal examinations without IV contrast. 2. There are acute left pubic ring fractures as above. The superior pubic ring fracture extends through the acetabulum. 3. No additional acute fracture is clearly seen. 4. Intramuscular hemorrhage is noted in the left obturator internus. 5. No acute posttraumatic findings are seen in the thorax. 6. Cardiomegaly and small pleural effusions. Intralobar septal thickening suggests congestive change. Correlate clinically. 7. There is no evidence of solid organ injury in the abdomen or pelvis on this unenhanced examination. 8. Mediastinal lymphadenopathy is similar to previous. 9. Cirrhotic liver morphology. 10. There is peripancreatic infiltration and trace fluid, as well as mesenteric edema. Correlate with clinical and laboratory findings for evidence of pancreatitis. 11. Additional findings as above. ACT 112: Negative or not required by law. Electronically signed by: Yousif Espinoza M.D. 09/21/2022 6:24 PM Chest X-Ray 09/21/22 16:14 SINGLE VIEW CHEST CLINICAL HISTORY: Sepsis. FINDINGS: An AP, portable, supine chest radiograph is compared to study dated 06/12/2012 and correlated with chest CT dated 06/12/2022. The examination is degraded by portable technique and patient rotation. The patient is status post midline sternotomy. A 2-lead cardiac pacemaker is unchanged in position. The heart is enlarged noting atherosclerotic calcification of the thoracic aorta. There is pulmonary vascular congestion. Chronic interstitial thickening similar to previous. There is bibasilar scarring/atelectasis. No airspace consolidation or large pleural effusion is identified. No pneumothorax is seen. The skeletal structures are osteopenic. The bony thorax is grossly intact. IMPRESSION: Cardiomegaly and cardiac pacemaker with evidence of congestive failure. ACT 112: Negative or not required by law. Electronically signed by: Yousif Espinoza M.D. 09/21/2022 4:[address] 09/21/22 16:14 CT SCAN OF THE BRAIN WITHOUT IV CONTRAST CLINICAL HISTORY: Trauma. Fall. COMPARISON STUDY: CT of the brain dated 06/11/2022. TECHNIQUE: Unenhanced axial CT scan of the brain is performed from the vertex to the skull base. A dose lowering technique was utilized adhering to the principles of ALARA. CT DOSE: 4332.09 mGy.cm FINDINGS: Brain parenchyma: There is age-related involutional change noting advanced confluent subcortical and periventricular microangiopathic disease. Foci of right frontal and right parietal encephalomalacia are unchanged and consistent with remote insults. There is no hemorrhage, mass effect, or evidence of acute territorial ischemia by CT criteria. Galeano-white matter differentiation is preserved. No extra-axial fluid collection is seen. Ventricles, sulci, cisterns: Prominent secondary to involutional change. Intracranial vasculature: There is atherosclerotic calcification of the cavernous carotid and vertebral arteries. Calvarium: The skeletal structures are osteopenic. No depressed calvarial fracture is seen. Sinuses and mastoids: The visualized paranasal sinuses are clear. There is a left mastoid effusion. The right mastoid air cells are well pneumatized. Orbits: The bony orbits are grossly intact. There is chronic deformity of the left lamina papyracea. There are bilateral ocular lens implants. IMPRESSION: There is no hemorrhage, mass effect, or evidence of acute territorial ischemia by CT criteria. ACT 112: Negative or not required by law. Electronically signed by: Yousif Espinoza M.D. 09/21/2022 6:00 PM Hip/Pelvis X-Ray 09/21/22 16:14 SINGLE VIEW PELVIS; 2 VIEWS LEFT HIP CLINICAL HISTORY: Fall. FINDINGS: AP views of the pelvis with AP and frog-leg views of the left hip are compared to study dated 01/12/2019 and correlated with pelvic CT dated 12/31/2021. The skeletal structures are osteopenic. There is no radiographic evidence of acute fracture involving the hips or bony pelvis. A bipolar right hip arthroplasty is in near anatomic alignment. No periprosthetic lucency is seen. Mild to moderate arthritic change and joint space narrowing is seen in the left hip. There is degenerative sclerosis of the sacroiliac joints. Postsurgical change projects over the left groin. Soft tissue contusion overlies the left hip. There are pelvic phleboliths. Lumbosacral spondylosis is partially imaged. IMPRESSION: 1. No acute bony abnormality is identified. 2. A left hip arthroplasty is in near anatomic alignment. 3. Soft tissue contusion overlies the left hip. Electronically signed by: Yousif Espinoza M.D. 09/21/2022 4:51 PM (1) Fall Encounter type: initial encounter Qualified Code(s): W19.XXXA - Unspecified fall, initial encounter (7) CHF (congestive heart failure) Heart failure chronicity: acute on chronic Heart failure type: unspecified Qualified Code(s): I50.9 - Heart failure, unspecified
[2022-09-22] MEDS ORDERED: NITROGLYCERIN SL 0.4 MG/TAB TAB SL PRN (13:29)
--- NOTE | 2022-09-22 13:36 | CT Scan Report ---
CT SCAN OF THE ABDOMEN AND PELVIS WITHOUT IV CONTRAST CLINICAL HISTORY: Pelvic fractures. COMPARISON STUDY: Abdominal CT dated 09/21/2022. TECHNIQUE: Unenhanced CT scan of the abdomen and pelvis was performed from the lower chest to the pro ximal femora. Images are reviewed in the axial, sagittal, and coronal planes. IV contrast was not adm inistered for this examination. Note that the examination is suboptimal without IV contrast. A dose l owering technique was utilized adhering to the principles of ALARA. The examination is degraded by st reak artifact from the arms which could not be elevated above the abdomen as well as by motion artifa ct. FINDINGS: Lower chest: The patient is status post midline sternotomy. The heart is enlarged and without pericar dial effusion. Pacemaker leads are in place. The coronary arteries are densely calcified. There are s mall pleural effusions, left larger than right with dependent atelectasis. Liver: The unenhanced liver is cirrhotic in morphology and heterogeneous attenuation. There is nodula rity of the hepatic surface contour. There is no intrahepatic biliary ductal dilatation. Gallbladder: Unremarkable. Spleen: Not identified and presumed surgically absent. Pancreas: The unenhanced pancreas is moderately atrophic. There is peripancreatic infiltration and fl uid. Adrenal glands: Unremarkable. Kidneys: The unenhanced kidneys demonstrate cortical atrophy and are without hydronephrosis. No renal calculi are identified. There is no evidence of contour deforming mass lesion. Abdominal vasculature: The abdominal aorta is normal in course and caliber noting advanced atheroscle rotic calcification. Bowel: There is moderate to advanced colonic diverticulosis without CT evidence of acute diverticulit is. No bowel obstruction is seen. The appendix is normal as visualized. Peritoneum: There is nonspecific mesenteric edema. No intraperitoneal free air is seen. There is a sm all volume of abdominopelvic ascites. This has increased from yesterday. Lymphadenopathy: None. Pelvic viscera: The prostate gland is diminutive and heterogeneous. The bladder is decompressed aroun d a Cherry catheter and is circumferentially thick walled. There is evidence of bilateral inguinal her niorrhaphy. Intramuscular hemorrhage is noted within the left obturator internus, and possibly in the left adductor musculature. Skeletal structures: The skeletal structures are osteopenic. Again seen are acute comminuted left sup erior and inferior pubic ring fractures with surrounding hemorrhage. The amount of intrapelvic extrap eritoneal hemorrhage around the fractures has modestly increased from yesterday. The superior pubic r ing fracture extends to the acetabulum. There is also acute fracture of the left sacral ala. There is a chronic compression deformity of L1 with evidence of previous vertebroplasty. No lytic or blastic lesions are seen. There is chronic posttraumatic deformity at the sacrococcygeal junction. IMPRESSION: 1. Again seen are comminuted left pubic ring fractures. The superior pubic ring fracture extends thro ugh the acetabulum. 2. There is also acute fracture of the left sacral ala. 3. Intrapelvic extraperitoneal hemorrhage around the pubic ring fractures has modestly increased from yesterday. No large hematoma is identified. 4. Intramuscular hemorrhage is noted within the left obturator internus, and also possibly within the left adductor musculature. 5. Cardiomegaly and small pleural effusions. Intralobar septal thickening suggests congestive change. Correlate clinically. 6. Cirrhotic liver morphology. 7. There is a small amount of abdominopelvic ascites and body wall edema. This is increased from yest erday and indicates fluid overload. 8. Nonspecific peripancreatic infiltration and fluid is again noted, and there is also mesenteric jessica ma. Correlate with clinical and laboratory findings for evidence of pancreatitis. 9. Additional findings as above. ACT 112: Negative or not required by law. Electronically signed by: Yousif Espinoza M.D. 09/22/2022 1:35 PM
--- NOTE | 2022-09-22 13:58 | Electrocardiogram Report ---
Test Reason : Blood Pressure : / mmHG Vent. Rate : 063 BPM Atrial Rate : 441 BPM P-R Int : 000 ms QRS Dur : 202 ms QT Int : 554 ms P-R-T Axes : 000 -83 097 degrees QTc Int : 566 ms Ventricular-paced rhythm with premature ventricular or aberrantly conducted complexes Underlying atrial fibrillation Abnormal ECG When compared with ECG of 11-JUN-2022 17:01, No significant change Confirmed by Alden Khan ([id number]) on 09/22/2022 1:57:55 PM Referred By: [facility] Confirmed By:Alden Khan
[2022-09-22] MEDS: HEPARIN SOD 5,000 UNIT/0.5 ML VIAL SQ SCH ×2 (14:22→20:52)
--- NOTE | 2022-09-22 15:47 | Orthopedic Consultation ---
Date of Consultation September 22, 2022 Assessment & Plan (1) Closed pelvic fracture: X-rays and CT scans reviewed by Dr. Randall and myself. No surgery indicated at this time. Per Dr. Randall , patient may be weightbearing as tolerated in the left lower extremity with walker. Eliquis still on hold secondary to hematoma around the fracture sites of the pelvis. PT/OT protocols ordered by hospitalist service. Orthopedics will sign off at this time. Please call with any questions. Patient may follow-up with Dr. Randall in 2 weeks for recheck. History of Present Illness Reason for Consultation: Pelvic fracture Attending Physician: Je Best MD History of Present Illness Patient is an 87-year-old male with past medical history significant for insulin-dependent diabetes; heart failure with preserved ejection fraction; CAD status post CABG; AFib, on Eliquis; history of chronic indwelling catheter, but was now taken off because of recurrent UTI; history of urinary incontinence; dementia; sick sinus syndrome, status post pacemaker; hypertension; hyperlipidemia, currently living at [facility] in [place] who presents today after being found by EMS at [facility] after a fall. Patient was found lying on the floor mid afternoon yesterday. He was cyanotic and respirations were noted to be 8. He was confused as they were getting him into the ambulance. He was brought to the emergency room here at [facility]. Patient's mentation improved over time in the emergency room and multip le x-rays were taken at that time. Plain films of the pelvis showed no obvious fracture however CT scan of the abdomen pelvis did show superior inferior pubic ramus fracture on the left with the superior fracture extending into the acetabulum. A minimally displaced fracture of the left sacral alae was noted as well. Currently the patient is awake and alert. He is talking to his . He states that his left hip area is feeling pretty good. His states that when he tries to move though he does have some increased pain. Allergies Allergy/AdvReac Type Severity Reaction Status Date / Time shellfish derived Allergy Severe anaphylaxis Verified 06/05/22 16:36 clopidogrel Allergy Intermediate INTERNAL Verified 06/05/22 16:36 HIVES Penicillins Allergy Intermediate HIVES Verified 06/14/22 08:27 Home Medications Medication Instructions Recorded Confirmed Type acetaminophen 325 mg tablet 650 mg PO Q6 PRN Pain 06/05/22 09/21/22 History (Tylenol) amlodipine 5 mg tablet 5 mg PO DAILY 06/05/22 09/21/22 History apixaban 2.5 mg tablet (Eliquis) 2.5 mg PO BID 06/05/22 09/21/22 History aspirin 81 mg tablet,delayed 81 mg PO DAILY 06/05/22 09/21/22 History release atorvastatin 40 mg tablet 40 mg PO DAILY 06/05/22 09/21/22 History calcium carbonate 300 mg (750 mg) 1,200 mg PO TID PRN Indigestion 06/05/22 09/21/22 History chewable tablet (Tums E-X) furosemide 40 mg tablet (Lasix) 40 mg PO DAILY 06/05/22 09/21/22 History insulin aspart U-100 100 unit/mL 5 unit subcut BID 06/05/22 09/21/22 History (3 mL) subcutaneous pen (Novolog FlexPen U-100 Insulin aspart) insulin glargine 100 unit/mL (3 18 unit subcut BID 06/05/22 09/21/22 History mL) subcutaneous pen (Lantus Solostar U-100 Insulin) isosorbide mononitrate 60 mg 60 mg PO DAILY 06/05/22 09/21/22 History tablet,extended release 24 hr losartan 50 mg tablet 50 mg PO DAILY 06/05/22 09/21/22 History metoprolol succinate 50 mg 50 mg PO QAM 06/05/22 09/21/22 History tablet,extended release 24 hr nitroglycerin 0.4 mg sublingual 0.4 mg sublingual DIRECTED PRN 06/05/22 09/21/22 History tablet (Nitrostat) Chest Pain pantoprazole 40 mg tablet,delayed 40 mg PO DAILY 06/05/22 09/21/22 History release tamsulosin 0.4 mg capsule 0.4 mg PO DAILY 06/05/22 09/21/22 History dutasteride 0.5 mg capsule 0.5 mg PO DAILY #90 caps 08/19/22 09/21/22 Rx azithromycin 250 mg tablet 250 mg PO DAILY 09/21/22 09/21/22 History escitalopram oxalate 20 mg tablet 20 mg PO DAILY 09/21/22 09/21/22 History melatonin 5 mg tablet 5 mg PO HS 09/21/22 09/21/22 History methenamine hippurate 1 gram tablet 1 g PO DAILY 09/21/22 09/21/22 History Patient History Medical History ACS (acute coronary syndrome) Advanced care planning/counseling discussion BPH (benign prostatic hyperplasia) CAD (coronary artery disease) Chronic anticoagulation Dementia DM type 2 (diabetes mellitus, type 2) DNR (do not resuscitate) Dyslipidemia Dyspnea on exertion Fall Gout History of cerebral hemorrhage HTN (hypertension) Pacemaker Palliative care by specialist Pancreatic cancer Paroxysmal atrial fibrillation Sinus node dysfunction SSS (sick sinus syndrome) Surgical History H/O arthroscopic knee surgery H/O colonoscopy H/O esophagogastroduodenoscopy H/O inguinal hernia repair History of pancreatectomy "07/15/2010 Dr. 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 He is pleasant and cooperative. He is alert and oriented to person and place. No acute distress. Examination of the lower extremity of the left shows leg lengths appear to be equal. He does have edema of the lower extremity below the knee and is somewhat tender on palpation. He has no pain with internal/external rotation. He does have some mild pain with flexion. He states that most of his pain is below the knee secondary to his edema. Minimal pain with abduction and adduction. There is no gross motor or sensory loss seen at this time. Results & Data Vital Signs (Past 12 Hours) Vital Signs Temp Pulse Pulse Resp BP Pulse Ox O2 Del Method 09/22/22 14:52 37.0 C 63 16 102/65 95 Nasal Cannula 09/22/22 11:37 36.7 C 65 20 111/66 98 Nasal Cannula 09/22/22 09:56 Nasal Cannula 09/22/22 09:56 62 09/22/22 07:20 36.5 C 63 16 121/71 97 Nasal Cannula O2 Flow Rate 09/22/22 14:52 4.0 09/22/22 11:37 4.0 09/22/22 09:56 4 09/22/22 09:56 09/22/22 07:20 4 Laboratory Results Laboratory Results WBC 9.93 K/ul (4.8-10.8) 09/22/22 06:19 RBC 3.39 M/uL (4.70-6.10) L 09/22/22 06:19 Hgb 9.8 g/dl (14.0-18.0) L 09/22/22 06:19 POC Hgb 11.6 g/dl (14.0-18.0) L 09/21/22 16:31 Hct 30.8 % (42.0-52.0) L 09/22/22 06:19 POC Hct 34 % (42-52) L 09/21/22 16:31 MCV 90.9 fL (80.0-100.0) 09/22/22 06:19 MCH 28.9 pg (25.0-34.0) 09/22/22 06:19 MCHC 31.8 g/dL (32.0-36.0) L 09/22/22 06:19 RDW Std Deviation 57.9 fL (36.4-46.3) H 09/22/22 06:19 RDW Coeff of Trevon 17.4 % (11.5-14.5) H 09/22/22 06:19 Plt Count 145 K/uL (130-400) 09/22/22 06:19 MPV 10.4 fL (9.4-12.4) 09/22/22 06:19 Immature Gran % (Auto) 1.8 % 09/21/22 16:19 Neut % (Auto) 65.2 % 09/21/22 16:19 Lymph % (Auto) 19.7 % 09/21/22 16:19 [place] % (Auto) 10.2 % 09/21/22 16:19 Eos % (Auto) 2.5 % 09/21/22 16:19 Baso % (Auto) 0.6 % 09/21/22 16:19 Neut # (Auto) 8.11 K/uL (1.40-6.50) H 09/21/22 16:19 Lymph # (Auto) 2.45 K/uL (1.2-3.4) 09/21/22 16:19 [place] # (Auto) 1.27 K/uL (0.11-0.59) H 09/21/22 16:19 Eos # (Auto) 0.31 K/uL (0-0.50) 09/21/22 16:19 Baso # (Auto) 0.07 K/uL (0-0.2) 09/21/22 16:19 Immature Gran # (Auto) 0.23 K/uL (0.01-0.20) H 09/21/22 16:19 Absolute Nucleated RBC 0.02 K/uL (0-0.12) 09/21/22 16:19 Nucleated RBC % (auto) 0.2 % 09/21/22 16:19 PT 13.1 Seconds (9.0-12.0) H 09/21/22 16:19 INR 1.2 (0.9-1.1) H 09/21/22 16:19 APTT 27.9 Seconds (21.0-31.0) 09/21/22 16:19 PTT Ratio 1.0 09/21/22 16:19 VBG pH 7.32 (7.36-7.41) L 09/21/22 17:38 VBG pCO2 46 mmHg (38-50) 09/21/22 17:38 VBG pO2 32 mmHg 09/21/22 17:38 VBG HCO3 24 mmol/L 09/21/22 17:38 VBG O2 Saturation < 60.0 % 09/21/22 17:38 VBG Base Excess -2.6 mEq/L 09/21/22 17:38 POC Sodium 138 mmol/L (135-144) 09/21/22 16:31 Sodium 136 mmol/L (136-145) 09/22/22 06:19 POC Potassium 5.0 mmol/L (3.3-5.0) 09/21/22 16:31 Potassium 4.8 mmol/L (3.5-5.1) 09/22/22 06:19 POC Chloride 103 mmol/L (101-112) 09/21/22 16:31 Chloride 106 mmol/L (98-107) 09/22/22 06:19 Carbon Dioxide 25 mmol/L (21-32) 09/22/22 06:19 POC Total CO2 22 mmol/L (24-31) L 09/21/22 16:31 Anion Gap 5 (3-11) 09/22/22 06:19 POC Anion Gap 18.0 mmol/L (16-25) 09/21/22 16:31 POC BUN 26 mg/dl (7-18) H 09/21/22 16:31 BUN 33 mg/dl (6-23) H 09/22/22 06:19 Creatinine 1.65 mg/dl (0.6-1.4) H 09/22/22 06:19 POC Creatinine 1.4 mg/dl (0.6-1.3) H 09/21/22 16:31 Est Cr Clr Drug Dosing 38.6 ml/min 09/22/22 06:19 Est GFR ( Amer) 42.6 ml/min 09/22/22 06:19 Est GFR (Non-Af Amer) 36.8 ml/min 09/22/22 06:19 BUN/Creatinine Ratio 20.0 (10-20) 09/22/22 06:19 Glucose 88 mg/dl (70-99(Fasting)) 09/22/22 06:19 POC Glucose 148 mg/dl (70-99) H 09/22/22 12:05 POC Glucose (other) 169 mg/dl (70-99) H 09/21/22 16:31 Estimat Average Glucose 183 mg/dl 09/22/22 06:19 Hemoglobin A1c 8.0 % (4.5-5.6) H 09/22/22 06:19 Lactate 2.0 mmol/L (0.4-2.0) 09/21/22 19:01 Calcium 8.1 mg/dl (8.6-10.3) L 09/22/22 06:19 POC Ioniz Calcium Carol 1.12 mmol/l (1.12-1.32) 09/21/22 16:31 Magnesium 1.9 mg/dl (1.7-2.4) 09/22/22 06:19 Total Bilirubin 1.2 mg/dl (0.2-1.0) H 09/21/22 16:19 Direct Bilirubin 0.4 mg/dl (0-0.2) H 09/21/22 16:19 AST 46 U/L (13-39) H 09/21/22 16:19 ALT 23 U/L (7-52) 09/21/22 16:19 Alkaline Phosphatase 134 U/L (34-104) H 09/21/22 16:19 Troponin I High Sens 25.3 pg/ml (0-20) H 09/21/22 16:19 Total Protein 7.3 gm/dl (6.0-8.3) 09/21/22 16:19 Albumin 3.5 gm/dl (3.4-5.0) 09/21/22 16:19 Lipase Cancelled 09/21/22 18:36 Procalcitonin < 0.05 ng/ml (0-0.5) 09/21/22 16:19 Urine Color Dark Yellow 09/22/22 07:45 Urine Appearance Clear (Clear) 09/22/22 07:45 Urine pH 5.5 (4.5-7.5) 09/22/22 07:45 Ur Specific [place] 1.015 (1.000-1.030) 09/22/22 07:45 Urine Protein 1+ (Negative) H 09/22/22 07:45 Urine Glucose (UA) Negative (Negative) 09/22/22 07:45 Urine Ketones Negative (Negative) 09/22/22 07:45 Urine Blood Negative (Negative) 09/22/22 07:45 Urine Nitrite Negative (Negative) 09/22/22 07:45 Urine Bilirubin Negative (Negative) 09/22/22 07:45 Urine Urobilinogen Negative (Negative) 09/22/22 07:45 Ur Leukocyte Esterase Negative (Negative) 09/22/22 07:45 Urine WBC (Auto) 5-10 /hpf (0-5) H 09/22/22 07:45 Urine RBC (Auto) 0-4 /hpf (0-4) 09/22/22 07:45 U Hyaline Cast (Auto) 1-5 /lpf (0-5) 09/22/22 07:45 U Epithel Cells (Auto) >30 /lpf (0-5) H 09/22/22 07:45 Urine Bacteria (Auto) Negative (Negative) 09/22/22 07:45 Ur Renal Epithelial Cell 0-5 /lpf (0-5) 09/22/22 07:45 Nasal Screen MRSA (PCR) Negative (Negative) 09/21/22 Unknown SARS-CoV-2, RNA, NAAT NEGATIVE (NEGATIVE) 09/21/22 17:[address] 09/21/22 16:14 CT SCAN OF THE CERVICAL SPINE CLINICAL HISTORY: Fall. COMPARISON STUDY: No priors. TECHNIQUE: CT scan of the cervical spine is performed from the skull base to the upper thoracic spine. Images are reviewed in the axial, sagittal, and coronal planes. IV contrast was not administered for this examination. A dose lowering technique was utilized adhering to the principles of ALARA. FINDINGS: Skeletal structures: The skeletal structures are osteopenic. There is no evidence of fracture or subluxation involving the cervical spine. Vertebral body height and alignment are maintained. There is straightening of the cervical lordosis. Anterior osteophytes are seen throughout. The odontoid process and lateral masses are intact. The atlantoaxial articulation is preserved noting advanced productive degenerative change. The spinous processes appear intact. There is moderate to advanced multilevel cervical spondylosis. Uncovertebral and facet arthropathy contribute to neural foraminal narrowing at most levels. Intervertebral discs: There is moderate to severe disc space narrowing at all cervical levels between C3-C4 and T1-T2. Central canal: Posterior disc osteophyte complexes are seen at all cervical levels between C2-C4 and C6-C7, and likely contribute to multilevel acquired compromise of the central canal. Soft tissues: The prevertebral and paraspinous soft tissues are within normal limits. There is atherosclerotic calcification of the carotid bulbs. Pacemaker leads are seen in the left thoracic inlet. Calvarium: The visualized calvarium at the skull base appears intact. Brain parenchyma: Partially visualized brain parenchyma at the skull base is within normal limits. Sinuses and mastoids: The visualized paranasal sinuses are clear. There is trace right mastoid effusion. Lung apices: Clear as visualized. IMPRESSION: 1. There is no evidence of fracture or subluxation involving the cervical spine. 2. Osteopenia and spondylitic change as above. ACT 112: Negative or not required by law. Electronically signed by: Yousif Espinoza M.D. 09/21/2022 6:[address] 09/21/22 16:14 CT SCAN OF THE CHEST, ABDOMEN, AND PELVIS WITHOUT IV CONTRAST CLINICAL HISTORY: Fall. COMPARISON STUDY: Chest CT dated 06/12/2022. Abdominal CT dated 12/31/2021. TECHNIQUE: Unenhanced CT scan of the chest, abdomen, and pelvis was performed from the thoracic inlet to the proximal femora. Images are reviewed in the axial, sagittal, and coronal planes. IV contrast was not administered for this examination. Note that the examination is suboptimal without IV contrast. A dose lowering technique was utilized adhering to the principles of ALARA. The examinations are degraded by streak artifact from the arms which could not be elevated above the chest or abdomen as well as by motion artifact. FINDINGS: CHEST: Thyroid: Imaged portions of the thyroid gland are normal in size and attenuation. Thoracic aorta: There is atherosclerotic calcification of the thoracic aorta, which is normal in caliber and demonstrates standard 3-vessel arch anatomy. Heart: A cardiac pacemaker is seen in the left chest wall. The patient is status post midline sternotomy. The enlarged in size and without pericardial effusion. The coronary arteries and aortic valve leaflets are densely calcified. Lungs and pleural spaces: Evaluation of the lung parenchyma is degraded by motion artifact. There are small pleural effusions, left larger than right with dependent atelectasis. There is no airspace consolidation typical for pneumonia or pneumothorax. Intralobular septal thickening suggests fluid overload/congestive change. There are scattered calcified granulomas. Mediastinum: Mildly enlarged mediastinal lymph nodes are similar to previous. These measure up to 14 mm short axis. Christie: Not well assessed without IV contrast. Axillae: There is no axillary lymphadenopathy. Bony thorax: The skeletal structures are osteopenic. No lytic or blastic lesions are identified. Arthritic change is noted in the shoulders. Degenerative change and hyperkyphosis is seen in the thoracic spine. There is a subacute appearing left posterior 11th rib fracture. Additional chronic/healed rib fractures are noted. ABDOMEN AND PELVIS: Liver: The unenhanced liver is cirrhotic in morphology and heterogeneous attenuation. There is nodularity of the hepatic surface contour. There is no intrahepatic biliary ductal dilatation. Gallbladder: Unremarkable. Spleen: Not identified and presumed surgically absent. Pancreas: The unenhanced pancreas is moderately atrophic. There is peripancreatic infiltration and fluid. Adrenal glands: Unremarkable. Kidneys: The unenhanced kidneys demonstrate cortical atrophy and are without hydronephrosis. No renal calculi are identified. There is no evidence of contour deforming mass lesion. Abdominal vasculature: The abdominal aorta is normal in course and caliber noting advanced atherosclerotic calcification. Bowel: There is moderate to advanced colonic diverticulosis without CT evidence of acute diverticulitis. No bowel obstruction is seen. The appendix is normal as visualized. Peritoneum: There is nonspecific mesenteric edema. No intraperitoneal free air is seen. There is trace perihepatic ascites. Lymphadenopathy: None. Pelvic viscera: The prostate gland is diminutive and heterogeneous. The bladder is distended, the wall is thickened trabecula and indicating chronic outlet obstruction. There is evidence of bilateral inguinal herniorrhaphy. Intramuscular hemorrhage is noted within the left obturator internus. Skeletal structures: The skeletal structures are osteopenic. There are acute left superior and inferior pubic ring fractures with surrounding hemorrhage. The superior pubic ring fracture extends to the acetabulum. There is a chronic compression deformity of L1 with evidence of previous vertebroplasty. No lytic or blastic lesions are seen. There is chronic posttraumatic deformity at the sacrococcygeal junction. IMPRESSION: 1. Significantly suboptimal examinations without IV contrast. 2. There are acute left pubic ring fractures as above. The superior pubic ring fracture extends through the acetabulum. 3. No additional acute fracture is clearly seen. 4. Intramuscular hemorrhage is noted in the left obturator internus. 5. No acute posttraumatic findings are seen in the thorax. 6. Cardiomegaly and small pleural effusions. Intralobar septal thickening suggests congestive change. Correlate clinically. 7. There is no evidence of solid organ injury in the abdomen or pelvis on this unenhanced examination. 8. Mediastinal lymphadenopathy is similar to previous. 9. Cirrhotic liver morphology. 10. There is peripancreatic infiltration and trace fluid, as well as mesenteric edema. Correlate with clinical and laboratory findings for evidence of pancreatitis. 11. Additional findings as above. ACT 112: Negative or not required by law. Electronically signed by: Yousif Espinoza M.D. 09/21/2022 6:24 PM Chest X-Ray 09/21/22 16:14 SINGLE VIEW CHEST CLINICAL HISTORY: Sepsis. FINDINGS: An AP, portable, supine chest radiograph is compared to study dated 06/12/2012 and correlated with chest CT dated 06/12/2022. The examination is degraded by portable technique and patient rotation. The patient is status post midline sternotomy. A 2-lead cardiac pacemaker is unchanged in position. The heart is enlarged noting atherosclerotic calcification of the thoracic aorta. There is pulmonary vascular congestion. Chronic interstitial thickening similar to previous. There is bibasilar scarring/atelectasis. No airspace consolidation or large pleural effusion is identified. No pneumothorax is seen. The skeletal structures are osteopenic. The bony thorax is grossly intact. IMPRESSION: Cardiomegaly and cardiac pacemaker with evidence of congestive failure. ACT 112: Negative or not required by law. Electronically signed by: Yousif Espinoza M.D. 09/21/2022 4:[address] 09/21/22 16:14 CT SCAN OF THE BRAIN WITHOUT IV CONTRAST CLINICAL HISTORY: Trauma. Fall. COMPARISON STUDY: CT of the brain dated 06/11/2022. TECHNIQUE: Unenhanced axial CT scan of the brain is performed from the vertex to the skull base. A dose lowering technique was utilized adhering to the principles of ALARA. CT DOSE: 4332.09 mGy.cm FINDINGS: Brain parenchyma: There is age-related involutional change noting advanced confluent subcortical and periventricular microangiopathic disease. Foci of right frontal and right parietal encephalomalacia are unchanged and consistent with remote insults. There is no hemorrhage, mass effect, or evidence of acute territorial ischemia by CT criteria. Galeano-white matter differentiation is preserved. No extra-axial fluid collection is seen. Ventricles, sulci, cisterns: Prominent secondary to involutional change. Intracranial vasculature: There is atherosclerotic calcification of the cavernous carotid and vertebral arteries. Calvarium: The skeletal structures are osteopenic. No depressed calvarial fracture is seen. Sinuses and mastoids: The visualized paranasal sinuses are clear. There is a left mastoid effusion. The right mastoid air cells are well pneumatized. Orbits: The bony orbits are grossly intact. There is chronic deformity of the left lamina papyracea. There are bilateral ocular lens implants. IMPRESSION: There is no hemorrhage, mass effect, or evidence of acute territorial ischemia by CT criteria. ACT 112: Negative or not required by law. Electronically signed by: Yousif Espinoza M.D. 09/21/2022 6:00 PM Hip/Pelvis X-Ray 09/21/22 16:14 SINGLE VIEW PELVIS; 2 VIEWS LEFT HIP CLINICAL HISTORY: Fall. FINDINGS: AP views of the pelvis with AP and frog-leg views of the left hip are compared to study dated 01/12/2019 and correlated with pelvic CT dated 12/31/2021. The skeletal structures are osteopenic. There is no radiographic evidence of acute fracture involving the hips or bony pelvis. A bipolar right hip arthr oplasty is in near anatomic alignment. No periprosthetic lucency is seen. Mild to moderate arthritic change and joint space narrowing is seen in the left hip. There is degenerative sclerosis of the sacroiliac joints. Postsurgical change projects over the left groin. Soft tissue contusion overlies the left hip. There are pelvic phleboliths. Lumbosacral spondylosis is partially imaged. IMPRESSION: 1. No acute bony abnormality is identified. 2. A left hip arthroplasty is in near anatomic alignment. 3. Soft tissue contusion overlies the left hip. Electronically signed by: Yousif Espinoza M.D. 09/21/2022 4:51 PM Abdomen/Pelvis CT 09/22/22 08:00 CT SCAN OF THE ABDOMEN AND PELVIS WITHOUT IV CONTRAST CLINICAL HISTORY: Pelvic fractures. COMPARISON STUDY: Abdominal CT dated 09/21/2022. TECHNIQUE: Unenhanced CT scan of the abdomen and pelvis was performed from the lower chest to the proximal femora. Images are reviewed in the axial, sagittal, and coronal planes. IV contrast was not administered for this examination. Note that the examination is suboptimal without IV contrast. A dose lowering technique was utilized adhering to the principles of ALARA. The examination is degraded by streak artifact from the arms which could not be elevated above the abdomen as well as by motion artifact. FINDINGS: Lower chest: The patient is status post midline sternotomy. The heart is enlarged and without pericardial effusion. Pacemaker leads are in place. The coronary arteries are densely calcified. There are small pleural effusions, left larger than right with dependent atelectasis. Liver: The unenhanced liver is cirrhotic in morphology and heterogeneous attenuation. There is nodularity of the hepatic surface contour. There is no intrahepatic biliary ductal dilatation. Gallbladder: Unremarkable. Spleen: Not identified and presumed surgically absent. Pancreas: The unenhanced pancreas is moderately atrophic. There is peripancreatic infiltration and fluid. Adrenal glands: Unremarkable. Kidneys: The unenhanced kidneys demonstrate cortical atrophy and are without hydronephrosis. No renal calculi are identified. There is no evidence of contour deforming mass lesion. Abdominal vasculature: The abdominal aorta is normal in course and caliber noting advanced atherosclerotic calcification. Bowel: There is moderate to advanced colonic diverticulosis without CT evidence of acute diverticulitis. No bowel obstruction is seen. The appendix is normal as visualized. Peritoneum: There is nonspecific mesenteric edema. No intraperitoneal free air is seen. There is a small volume of abdominopelvic ascites. This has increased from yesterday. Lymphadenopathy: None. Pelvic viscera: The prostate gland is diminutive and heterogeneous. The bladder is decompressed around a Cherry catheter and is circumferentially thick walled. There is evidence of bilateral inguinal herniorrhaphy. Intramuscular hemorrhage is noted within the left obturator internus, and possibly in the left adductor musculature. Skeletal structures: The skeletal structures are osteopenic. Again seen are acute comminuted left superior and inferior pubic ring fractures with surrounding hemorrhage. The amount of intrapelvic extraperitoneal hemorrhage around the fractures has modestly increased from yesterday. The superior pubic ring fracture extends to the acetabulum. There is also acute fracture of the left sacral ala. There is a chronic compression deformity of L1 with evidence of previous vertebroplasty. No lytic or blastic lesions are seen. There is chronic posttraumatic deformity at the sacrococcygeal junction. IMPRESSION: 1. Again seen are comminuted left pubic ring fractures. The superior pubic ring fracture extends through the acetabulum. 2. There is also acute fracture of the left sacral ala. 3. Intrapelvic extraperitoneal hemorrhage around the pubic ring fractures has modestly increased from yesterday. No large hematoma is identified. 4. Intramuscular hemorrhage is noted within the left obturator internus, and also possibly within the left adductor musculature. 5. Cardiomegaly and small pleural effusions. Intralobar septal thickening suggests congestive change. Correlate clinically. 6. Cirrhotic liver morphology. 7. There is a small amount of abdominopelvic ascites and body wall edema. This is increased from yesterday and indicates fluid overload. 8. Nonspecific peripancreatic infiltration and fluid is again noted, and there is also mesenteric edema. Correlate with clinical and laboratory findings for evidence of pancreatitis. 9. Additional findings as above. ACT 112: Negative or not required by law. Electronically signed by: Yousif Espinoza M.D. 09/22/2022 1:35 PM (1) Closed pelvic fracture Encounter type: initial encounter Fracture alignment: displaced Laterality: left Pelvic bone location: acetabulum Sublocation of acetabulum: unspecified portion of acetabulum Qualified Code(s): S32.402A - Unspecified fracture of left acetabulum, initial encounter for closed fracture
[2022-09-22] MEDS: MELATONIN 3 MG TAB PO SCH (20:43)
[2022-09-23] MEDS: ACETAMINOPHEN 1,000 MG/100 ML VIAL IV SCH ×3 (05:14→21:03)
[2022-09-23] MEDS: HEPARIN SOD 5,000 UNIT/0.5 ML VIAL SQ SCH ×3 (05:20→21:03)
[2022-09-23 06:30] LABS: Basophils # (auto) 0.11 K/uL (0-0.2); Eosinophils # (auto) 1.22 K/uL (0-0.50); Eosinophils % (auto) 11.5 %; Hematocrit (blood only) 32.1 % (42.0-52.0); Hemoglobin 10.4 g/dl (14.0-18.0); Immature Granulocytes # (auto) 0.03 K/uL (0.01-0.20); Immature Granulocytes % (auto) 0.3 %; Lymphocytes # (auto) 2.16 K/uL (1.2-3.4); Lymphocytes % (auto) 20.3 %; Mean Corpuscular Hemoglobin 29.1 pg (25.0-34.0); Mean Corpuscular Hgb Conc 32.4 g/dL (32.0-36.0); Mean Corpuscular Volume 89.9 fL (80.0-100.0); Mean Platelet Volume 11.4 fL (9.4-12.4); Monocytes # (auto) 1.48 K/uL (0.11-0.59); Monocytes % (auto) 13.9 %; Neutrophils # (auto) 5.64 K/uL (1.40-6.50); Platelet Count 156 K/uL (130-400); RDW Coefficient of Variation 17.6 % (11.5-14.5); RDW Standard Deviation 58.2 fL (36.4-46.3); Red Blood Count 3.57 M/uL (4.70-6.10); White Blood Count 10.64 K/ul (4.8-10.8)
[2022-09-23 06:49] LABS: BUN Creatinine Ratio 22.7 (10-20); Calcium 8.2 mg/dl (8.6-10.3); Creatinine Clr Calc Pharmacy 36.2 ml/min; Est GFR (African American) 39.4 ml/min; Potassium 4.4 mmol/L (3.5-5.1)
[2022-09-23] MEDS: INSULIN ASPART PER UNIT CHARGE SC SCH ×4 (07:48→20:36)
[2022-09-23] MEDS: AVODART~ORDER AWAITING ACTION SCH ×2 (07:49→16:41)
[2022-09-23] MEDS: TAMSULOSIN HCL 0.4 MG CAP PO SCH (08:15)
[2022-09-23] MEDS: METOPROLOL SUCC 50MG EXT REL TAB PO SCH (08:15)
[2022-09-23] MEDS: ATORVASTATIN 40 MG TAB PO SCH (08:15)
[2022-09-23] MEDS: ESCITALOPRAM OXALATE 20 MG TAB PO SCH (08:15)
[2022-09-23] MEDS ORDERED: FUROSEMIDE 40 MG TAB PO SCH (09:00)
[2022-09-23] MEDS: MoRPHine SULFATE 2 MG/ML CARP IV PRN (11:31)
--- NOTE | 2022-09-23 12:01 | Hospitalist Progress Note ---
Date of Service September 23, 2022 Assessment & Plan (1) Fall: (2) Pelvic fracture: (3) Hematoma: Plan: Patient is a 87-year-old male with past medical history of insulin-dependent diabetes mellitus, CAD status post CABG, A-fib on Eliquis, sick sinus syndrome status post pacemaker presented to the hospital after he was found to have a fall. CT abdomen pelvis done on ED showed acute left superior and inferior pubic rami fracture. There was also intramuscular hematoma in left obturator internus. As per orthopedics we reviewed the images; recommended weightbearing as tolerated on left lower extremity with a walker. Eliquis kept on hold due to concern for obturator hematoma. Pain control with [id number] Tylenol and low-dose of narcotics. CT abdomen and pelvis reviewed from 09/22/2022; intrapelvic extraperitoneal hemorrhage around pubic ring fracture modestly increased. Hold aspirin and Eliquis Heparin subcu started for DVT prophylaxis Monitor CBC daily. Labs reviewed from today; hemoglobin stable at 10.4. Continue PT OT (4) Generalized weakness: (5) Aspiration pneumonia: Plan: History of aspiration pneumonia. Patient was started on antibiotic on admission due to concern for pneumonia. CT chest reviewed; no suggestion of pneumonia. Suggestive of fluid overload. Pro-Primo negative. Will discontinue antibiotic. Speech saw the patient. Patient had VFSS last admission; recommended to continue diet. (6) Persistent atrial fibrillation: Plan: -Rate controlled with metoprolol, -Holding Eliquis and baby aspirin with hematoma in left obturator muscle as described in imaging studies above Started on DVT prophylaxis for now. (7) CHF (congestive heart failure): (8) ASCVD (arteriosclerotic cardiovascular disease): (9) S/P CABG x 2: (10) SSS (sick sinus syndrome): (11) HTN (hypertension): (12) Pacemaker: (13) Dyslipidemia: Plan: - Chronic right heart failure, valvular heart disease with einr-[id number] valvular aortic stenosis, tdmq-[id number] mitral regurgitation, [id number]-[id number] tricuspid regurgitation -Hold Lasix any and other antihypertensives(which include amlodipine, losartan and Imdur) -Reintroduce antihypertensive as blood pressure improves. Telemetry monitoring (14) Acute kidney injury superimposed on CKD: Plan: Labs reviewed; creatinine is 1.7; baseline around 1.3. Urine output reassuring. He currently has a Cherry. hold off on Lasix, losartan Obtain CK Urine electrolytes, osmolarity disorder Monitor BMP daily (15) DM type 2 (diabetes mellitus, type 2): Plan: -Lantus twice daily and SSI. -Last A1c was 7.7 in May 2022, repeat with am labs - Glycemic pharmacy consulted DVT PPx Heparin CODE: DNR/DNI Dispo: Participated with OT. Did not participate with PT due to pain. He will need rehab placement. Case management on board His daughter Rekha is ED nurse here. Updated her over the phone. Time spent evaluating patient, direct bedside care, chart review, placing orders, interpretation of diagnostic studies, discussion with consultants, patient, and family members, as well as other required patient management activities is 60 minutes. Please note the above document was generated using voice recognition software. It may contain grammatical, syntax or spelling errors. Any formal questions or concerns about the content, text or information contained within the body of this dictation should be directly addressed to the provider for clarification Admission and Anticipated Discharge Date Admission Date: September 21, 2022 Subjective Patient seen and examined at bedside. He is lying in the bed; not in distress. He is oriented to self and place. . Review of Systems Review of Systems: All systems reviewed & are unremarkable except as noted in Subjective Physical Exam Physical Exam: Constitutional: Awake, oriented to self and place. Not in any distress. Respiratory: normal respiratory effort, lungs clear to auscultation, no wheeze, rales, rhonchi. Normal insp/exp effort, no accessory muscle use Cardiovascular: RRR, no murmur, no edema Vessels: no JVD or carotid bruit Chest: normal inspection of chest Abdomen: normal bowel sounds, soft, nontender, no hepatosplenomegaly Musculoskeletal: no cyanosis or clubbing Bilateral pitting edema present. ROM painful on left hip. Skin: no rashes, warm and dry normal turgor Neurologic: Awake, oriented to self and place. Follows simple commands. Psychiatric: A+Ox3, euthymic affect Lymphatic: no cervical or axillary lymphadenopathy : deferred Results & Data Results & Data Vital Signs (Past 12 Hours) Vital Signs Temp Pulse Pulse Resp BP Pulse Ox O2 Del Method 09/23/22 11:42 36.3 C L 63 16 128/80 96 Nasal Cannula 09/23/22 09:30 Nasal Cannula 09/23/22 09:30 63 09/23/22 07:26 36.4 C L 62 16 133/77 92 Room Air 09/23/22 03:20 36.5 C 72 18 120/78 95 Nasal Cannula O2 Flow Rate 09/23/22 11:42 2.0 09/23/22 09:30 2 09/23/22 09:30 09/23/22 07:26 09/23/22 03:20 4 Laboratory Results Laboratory Results WBC 10.64 K/ul (4.8-10.8) 09/23/22 05:59 RBC 3.57 M/uL (4.70-6.10) L 09/23/22 05:59 Hgb 10.4 g/dl (14.0-18.0) L 09/23/22 05:59 POC Hgb 11.6 g/dl (14.0-18.0) L 09/21/22 16:31 Hct 32.1 % (42.0-52.0) L 09/23/22 05:59 POC Hct 34 % (42-52) L 09/21/22 16:31 MCV 89.9 fL (80.0-100.0) 09/23/22 05:59 MCH 29.1 pg (25.0-34.0) 09/23/22 05:59 MCHC 32.4 g/dL (32.0-36.0) 09/23/22 05:59 RDW Std Deviation 58.2 fL (36.4-46.3) H 09/23/22 05:59 RDW Coeff of Trevon 17.6 % (11.5-14.5) H 09/23/22 05:59 Plt Count 156 K/uL (130-400) 09/23/22 05:59 MPV 11.4 fL (9.4-12.4) 09/23/22 05:59 Immature Gran % (Auto) 0.3 % 09/23/22 05:59 Neut % (Auto) 53.0 % 09/23/22 05:59 Lymph % (Auto) 20.3 % 09/23/22 05:59 Ransom % (Auto) 13.9 % 09/23/22 05:59 Eos % (Auto) 11.5 % 09/23/22 05:59 Baso % (Auto) 1.0 % 09/23/22 05:59 Neut # (Auto) 5.64 K/uL (1.40-6.50) 09/23/22 05:59 Lymph # (Auto) 2.16 K/uL (1.2-3.4) 09/23/22 05:59 Ransom # (Auto) 1.48 K/uL (0.11-0.59) H 09/23/22 05:59 Eos # (Auto) 1.22 K/uL (0-0.50) H 09/23/22 05:59 Baso # (Auto) 0.11 K/uL (0-0.2) 09/23/22 05:59 Immature Gran # (Auto) 0.03 K/uL (0.01-0.20) 09/23/22 05:59 Absolute Nucleated RBC 0.02 K/uL (0-0.12) 09/21/22 16:19 Nucleated RBC % (auto) 0.2 % 09/21/22 16:19 PT 13.1 Seconds (9.0-12.0) H 09/21/22 16:19 INR 1.2 (0.9-1.1) H 09/21/22 16:19 APTT 27.9 Seconds (21.0-31.0) 09/21/22 16:19 PTT Ratio 1.0 09/21/22 16:19 VBG pH 7.32 (7.36-7.41) L 09/21/22 17:38 VBG pCO2 46 mmHg (38-50) 09/21/22 17:38 VBG pO2 32 mmHg 09/21/22 17:38 VBG HCO3 24 mmol/L 09/21/22 17:38 VBG O2 Saturation < 60.0 % 09/21/22 17:38 VBG Base Excess -2.6 mEq/L 09/21/22 17:38 POC Sodium 138 mmol/L (135-144) 09/21/22 16:31 Sodium 137 mmol/L (136-145) 09/23/22 05:59 POC Potassium 5.0 mmol/L (3.3-5.0) 09/21/22 16:31 Potassium 4.4 mmol/L (3.5-5.1) 09/23/22 05:59 POC Chloride 103 mmol/L (101-112) 09/21/22 16:31 Chloride 106 mmol/L (98-107) 09/23/22 05:59 Carbon Dioxide 24 mmol/L (21-32) 09/23/22 05:59 POC Total CO2 22 mmol/L (24-31) L 09/21/22 16:31 Anion Gap 7 (3-11) 09/23/22 05:59 POC Anion Gap 18.0 mmol/L (16-25) 09/21/22 16:31 POC BUN 26 mg/dl (7-18) H 09/21/22 16:31 BUN 40 mg/dl (6-23) H 09/23/22 05:59 Creatinine 1.76 mg/dl (0.6-1.4) H 09/23/22 05:59 POC Creatinine 1.4 mg/dl (0.6-1.3) H 09/21/22 16:31 Est Cr Clr Drug Dosing 36.2 ml/min 09/23/22 05:59 Est GFR ( Amer) 39.4 ml/min 09/23/22 05:59 Est GFR (Non-Af Amer) 34.0 ml/min 09/23/22 05:59 BUN/Creatinine Ratio 22.7 (10-20) H 09/23/22 05:59 Glucose 74 mg/dl (70-99(Fasting)) 09/23/22 05:59 POC Glucose 128 mg/dl (70-99) H 09/23/22 11:42 POC Glucose (other) 169 mg/dl (70-99) H 09/21/22 16:31 Estimat Average Glucose 183 mg/dl 09/22/22 06:19 Hemoglobin A1c 8.0 % (4.5-5.6) H 09/22/22 06:19 Lactate 2.0 mmol/L (0.4-2.0) 09/21/22 19:01 Calcium 8.2 mg/dl (8.6-10.3) L 09/23/22 05:59 POC Ioniz Calcium Carol 1.12 mmol/l (1.12-1.32) 09/21/22 16:31 Magnesium 1.9 mg/dl (1.7-2.4) 09/22/22 06:19 Total Bilirubin 1.2 mg/dl (0.2-1.0) H 09/21/22 16:19 Direct Bilirubin 0.4 mg/dl (0-0.2) H 09/21/22 16:19 AST 46 U/L (13-39) H 09/21/22 16:19 ALT 23 U/L (7-52) 09/21/22 16:19 Alkaline Phosphatase 134 U/L (34-104) H 09/21/22 16:19 Troponin I High Sens 25.3 pg/ml (0-20) H 09/21/22 16:19 Total Protein 7.3 gm/dl (6.0-8.3) 09/21/22 16:19 Albumin 3.5 gm/dl (3.4-5.0) 09/21/22 16:19 Lipase Cancelled 09/21/22 18:36 Procalcitonin < 0.05 ng/ml (0-0.5) 09/21/22 16:19 Urine Color Dark Yellow 09/22/22 07:45 Urine Appearance Clear (Clear) 09/22/22 07:45 Urine pH 5.5 (4.5-7.5) 09/22/22 07:45 Ur Specific [place] 1.015 (1.000-1.030) 09/22/22 07:45 Urine Protein 1+ (Negative) H 09/22/22 07:45 Urine Glucose (UA) Negative (Negative) 09/22/22 07:45 Urine Ketones Negative (Negative) 09/22/22 07:45 Urine Blood Negative (Negative) 09/22/22 07:45 Urine Nitrite Negative (Negative) 09/22/22 07:45 Urine Bilirubin Negative (Negative) 09/22/22 07:45 Urine Urobilinogen Negative (Negative) 09/22/22 07:45 Ur Leukocyte Esterase Negative (Negative) 09/22/22 07:45 Urine WBC (Auto) 5-10 /hpf (0-5) H 09/22/22 07:45 Urine RBC (Auto) 0-4 /hpf (0-4) 09/22/22 07:45 U Hyaline Cast (Auto) 1-5 /lpf (0-5) 09/22/22 07:45 U Epithel Cells (Auto) >30 /lpf (0-5) H 09/22/22 07:45 Urine Bacteria (Auto) Negative (Negative) 09/22/22 07:45 Ur Renal Epithelial Cell 0-5 /lpf (0-5) 09/22/22 07:45 Nasal Screen MRSA (PCR) Negative (Negative) 09/21/22 Unknown SARS-CoV-2, RNA, NAAT NEGATIVE (NEGATIVE) 09/21/22 17:[address] 09/21/22 16:14 CT SCAN OF THE CERVICAL SPINE CLINICAL HISTORY: Fall. COMPARISON STUDY: No priors. TECHNIQUE: CT scan of the cervical spine is performed from the skull base to the upper thoracic spine. Images are reviewed in the axial, sagittal, and coronal planes. IV contrast was not administered for this examination. A dose lowering technique was utilized adhering to the principles of ALARA. FINDINGS: Skeletal structures: The skeletal structures are osteopenic. There is no evidence of fracture or subluxation involving the cervical spine. Vertebral body height and alignment are maintained. There is straightening of the cervical lordosis. Anterior osteophytes are seen throughout. The odontoid process and lateral masses are intact. The atlantoaxial articulation is preserved noting advanced productive degenerative change. The spinous processes appear intact. There is moderate to advanced multilevel cervical spondylosis. Uncovertebral and facet arthropathy contribute to neural foraminal narrowing at most levels. Intervertebral discs: There is moderate to severe disc space narrowing at all cervical levels between C3-C4 and T1-T2. Central canal: Posterior disc osteophyte complexes are seen at all cervical levels between C2-C4 and C6-C7, and likely contribute to multilevel acquired compromise of the central canal. Soft tissues: The prevertebral and paraspinous soft tissues are within normal limits. There is atherosclerotic calcification of the carotid bulbs. Pacemaker leads are seen in the left thoracic inlet. Calvarium: The visualized calvarium at the skull base appears intact. Brain parenchyma: Partially visualized brain parenchyma at the skull base is within normal limits. Sinuses and mastoids: The visualized paranasal sinuses are clear. There is trace right mastoid effusion. Lung apices: Clear as visualized. IMPRESSION: 1. There is no evidence of fracture or subluxation involving the cervical spine. 2. Osteopenia and spondylitic change as above. ACT 112: Negative or not required by law. Electronically signed by: Yousif Espinoza M.D. 09/21/2022 6:[address] 09/21/22 16:14 CT SCAN OF THE CHEST, ABDOMEN, AND PELVIS WITHOUT IV CONTRAST CLINICAL HISTORY: Fall. COMPARISON STUDY: Chest CT dated 06/12/2022. Abdominal CT dated 12/31/2021. TECHNIQUE: Unenhanced CT scan of the chest, abdomen, and pelvis was performed from the thoracic inlet to the proximal femora. Images are reviewed in the axial, sagittal, and coronal planes. IV contrast was not administered for this examination. Note that the examination is suboptimal without IV contrast. A dose lowering technique was utilized adhering to the principles of ALARA. The examinations are degraded by streak artifact from the arms which could not be elevated above the chest or abdomen as well as by motion artifact. FINDINGS: CHEST: Thyroid: Imaged portions of the thyroid gland are normal in size and attenuation. Thoracic aorta: There is atherosclerotic calcification of the thoracic aorta, which is normal in caliber and demonstrates standard 3-vessel arch anatomy. Heart: A cardiac pacemaker is seen in the left chest wall. The patient is status post midline sternotomy. The enlarged in size and without pericardial effusion. The coronary arteries and aortic valve leaflets are densely calcified. Lungs and pleural spaces: Evaluation of the lung parenchyma is degraded by motion artifact. There are small pleural effusions, left larger than right with dependent atelectasis. There is no airspace consolidation typical for pneumonia or pneumothorax. Intralobular septal thickening suggests fluid overload/con gestive change. There are scattered calcified granulomas. Mediastinum: Mildly enlarged mediastinal lymph nodes are similar to previous. These measure up to 14 mm short axis. Christie: Not well assessed without IV contrast. Axillae: There is no axillary lymphadenopathy. Bony thorax: The skeletal structures are osteopenic. No lytic or blastic lesions are identified. Arthritic change is noted in the shoulders. Degenerative change and hyperkyphosis is seen in the thoracic spine. There is a subacute appearing left posterior 11th rib fracture. Additional chronic/healed rib fractures are noted. ABDOMEN AND PELVIS: Liver: The unenhanced liver is cirrhotic in morphology and heterogeneous attenuation. There is nodularity of the hepatic surface contour. There is no intrahepatic biliary ductal dilatation. Gallbladder: Unremarkable. Spleen: Not identified and presumed surgically absent. Pancreas: The unenhanced pancreas is moderately atrophic. There is peripancreatic infiltration and fluid. Adrenal glands: Unremarkable. Kidneys: The unenhanced kidneys demonstrate cortical atrophy and are without hydronephrosis. No renal calculi are identified. There is no evidence of contour deforming mass lesion. Abdominal vasculature: The abdominal aorta is normal in course and caliber noting advanced atherosclerotic calcification. Bowel: There is moderate to advanced colonic diverticulosis without CT evidence of acute diverticulitis. No bowel obstruction is seen. The appendix is normal as visualized. Peritoneum: There is nonspecific mesenteric edema. No intraperitoneal free air is seen. There is trace perihepatic ascites. Lymphadenopathy: None. Pelvic viscera: The prostate gland is diminutive and heterogeneous. The bladder is distended, the wall is thickened trabecula and indicating chronic outlet obstruction. There is evidence of bilateral inguinal herniorrhaphy. Intramuscular hemorrhage is noted within the left obturator internus. Skeletal structures: The skeletal structures are osteopenic. There are acute left superior and inferior pubic ring fractures with surrounding hemorrhage. The superior pubic ring fracture extends to the acetabulum. There is a chronic compression deformity of L1 with evidence of previous vertebroplasty. No lytic or blastic lesions are seen. There is chronic posttraumatic deformity at the sacrococcygeal junction. IMPRESSION: 1. Significantly suboptimal examinations without IV contrast. 2. There are acute left pubic ring fractures as above. The superior pubic ring fracture extends through the acetabulum. 3. No additional acute fracture is clearly seen. 4. Intramuscular hemorrhage is noted in the left obturator internus. 5. No acute posttraumatic findings are seen in the thorax. 6. Cardiomegaly and small pleural effusions. Intralobar septal thickening suggests congestive change. Correlate clinically. 7. There is no evidence of solid organ injury in the abdomen or pelvis on this unenhanced examination. 8. Mediastinal lymphadenopathy is similar to previous. 9. Cirrhotic liver morphology. 10. There is peripancreatic infiltration and trace fluid, as well as mesenteric edema. Correlate with clinical and laboratory findings for evidence of pancreatitis. 11. Additional findings as above. ACT 112: Negative or not required by law. Electronically signed by: Yousif Espinoza M.D. 09/21/2022 6:24 PM Chest X-Ray 09/21/22 16:14 SINGLE VIEW CHEST CLINICAL HISTORY: Sepsis. FINDINGS: An AP, portable, supine chest radiograph is compared to study dated and correlated with chest CT dated 06/12/2022. The examination is degraded by portable technique and patient rotation. The patient is status post midline sternotomy. A 2-lead cardiac pacemaker is unchanged in position. The heart is enlarged noting atherosclerotic calcification of the thoracic aorta. There is pulmonary vascular congestion. Chronic interstitial thickening similar to previous. There is bibasilar scarring/atelectasis. No airspace consolidation or large pleural effusion is identified. No pneumothorax is seen. The skeletal structures are osteopenic. The bony thorax is grossly intact. IMPRESSION: Cardiomegaly and cardiac pacemaker with evidence of congestive failure. ACT 112: Negative or not required by law. Electronically signed by: Yousif Espinoza M.D. 09/21/2022 4:[address] 09/21/22 16:14 CT SCAN OF THE BRAIN WITHOUT IV CONTRAST CLINICAL HISTORY: Trauma. Fall. COMPARISON STUDY: CT of the brain dated 06/11/2022. TECHNIQUE: Unenhanced axial CT scan of the brain is performed from the vertex to the skull base. A dose lowering technique was utilized adhering to the principles of ALARA. CT DOSE: 4332.09 mGy.cm FINDINGS: Brain parenchyma: There is age-related involutional change noting advanced confluent subcortical and periventricular microangiopathic disease. Foci of right frontal and right parietal encephalomalacia are unchanged and consistent with remote insults. There is no hemorrhage, mass effect, or evidence of acute territorial ischemia by CT criteria. Galeano-white matter differentiation is prese rved. No extra-axial fluid collection is seen. Ventricles, sulci, cisterns: Prominent secondary to involutional change. Intracranial vasculature: There is atherosclerotic calcification of the cave rnous carotid and vertebral arteries. Calvarium: The skeletal structures are osteopenic. No depressed calvarial fracture is seen. Sinuses and mastoids: The visualized paranasal sinuses are clear. There is a left mastoid effusion. The right mastoid air cells are well pneumatized. Orbits: The bony orbits are grossly intact. There is chronic deformity of the left lamina papyracea. There are bilateral ocular lens implants. IMPRESSION: There is no hemorrhage, mass effect, or evidence of acute territorial ischemia by CT criteria. ACT 112: Negative or not required by law. Electronically signed by: Yousif Espinoza M.D. 09/21/2022 6:00 PM Hip/Pelvis X-Ray 09/21/22 16:14 SINGLE VIEW PELVIS; 2 VIEWS LEFT HIP CLINICAL HISTORY: Fall. FINDINGS: AP views of the pelvis with AP and frog-leg views of the left hip are compared to study dated 01/12/2019 and correlated with pelvic CT dated 12/31/2021. The skeletal structures are osteopenic. There is no radiographic evidence of acute fracture involving the hips or bony pelvis. A bipolar right hip arthroplasty is in near anatomic alignment. No periprosthetic lucency is seen. Mild to moderate arthritic change and joint space narrowing is seen in the left hip. There is degenerative sclerosis of the sacroiliac joints. Postsurgical change projects over the left groin. Soft tissue contusion overlies the left hip. There are pelvic phleboliths. Lumbosacral spondylosis is partially imaged. IMPRESSION: 1. No acute bony abnormality is identified. 2. A left hip arthroplasty is in near anatomic alignment. 3. Soft tissue contusion overlies the left hip. Electronically signed by: Yousif Espinoza M.D. 09/21/2022 4:51 PM Abdomen/Pelvis CT 09/22/22 08:00 CT SCAN OF THE ABDOMEN AND PELVIS WITHOUT IV CONTRAST CLINICAL HISTORY: Pelvic fractures. COMPARISON STUDY: Abdominal CT dated 09/21/2022. TECHNIQUE: Unenhanced CT scan of the abdomen and pelvis was performed from the lower chest to the proximal femora. Images are reviewed in the axial, sagittal, and coronal planes. IV contrast was not administered for this examination. Note that the examination is suboptimal without IV contrast. A dose lowering technique was utilized adhering to the principles of ALARA. The examination is degraded by streak artifact from the arms which could not be elevated above the abdomen as well as by motion artifact. FINDINGS: Lower chest: The patient is status post midline sternotomy. The heart is enlarged and without pericardial effusion. Pacemaker leads are in place. The coronary arteries are densely calcified. There are small pleural effusions, left larger than right with dependent atelectasis. Liver: The unenhanced liver is cirrhotic in morphology and heterogeneous attenuation. There is nodularity of the hepatic surface contour. There is no intrahepatic biliary ductal dilatation. Gallbladder: Unremarkable. Spleen: Not identified and presumed surgically absent. Pancreas: The unenhanced pancreas is moderately atrophic. There is peripancreatic infiltration and fluid. Adrenal glands: Unremarkable. Kidneys: The unenhanced kidneys demonstrate cortical atrophy and are without hydronephrosis. No renal calculi are identified. There is no evidence of contour deforming mass lesion. Abdominal vasculature: The abdominal aorta is normal in course and caliber noting advanced atherosclerotic calcification. Bowel: There is moderate to advanced colonic diverticulosis without CT evidence of acute diverticulitis. No bowel obstruction is seen. The appendix is normal as visualized. Peritoneum: There is nonspecific mesenteric edema. No intraperitoneal free air is seen. There is a small volume of abdominopelvic ascites. This has increased from yesterday. Lymphadenopathy: None. Pelvic viscera: The prostate gland is diminutive and heterogeneous. The bladder is decompressed around a Cherry catheter and is circumferentially thick walled. There is evidence of bilateral inguinal herniorrhaphy. Intramuscular hemorrhage is noted within the left obturator internus, and possibly in the left adductor musculature. Skeletal structures: The skeletal structures are osteopenic. Again seen are acute comminuted left superior and inferior pubic ring fractures with surrounding hemorrhage. The amount of intrapelvic extraperitoneal hemorrhage around the fractures has modestly increased from yesterday. The superior pubic ring fracture extends to the acetabulum. There is also acute fracture of the left sacral ala. There is a chronic compression deformity of L1 with evidence of previous vertebroplasty. No lytic or blastic lesions are seen. There is chronic posttraumatic deformity at the sacrococcygeal junction. IMPRESSION: 1. Again seen are comminuted left pubic ring fractures. The superior pubic ring fracture extends through the acetabulum. 2. There is also acute fracture of the left sacral ala. 3. Intrapelvic extraperitoneal hemorrhage around the pubic ring fractures has modestly increased from yesterday. No large hematoma is identified. 4. Intramuscular hemorrhage is noted within the left obturator internus, and also possibly within the left adductor musculature. 5. Cardiomegaly and small pleural effusions. Intralobar septal thickening suggests congestive change. Correlate clinically. 6. Cirrhotic liver morphology. 7. There is a small amount of abdominopelvic ascites and body wall edema. This is increased from yesterday and indicates fluid overload. 8. Nonspecific peripancreatic infiltration and fluid is again noted, and there is also mesenteric edema. Correlate with clinical and laboratory findings for evidence of pancreatitis. 9. Additional findings as above. ACT 112: Negative or not required by law. Electronically signed by: Yousif Espinoza M.D. 09/22/2022 1:35 PM (1) Fall Encounter type: initial encounter Qualified Code(s): W19.XXXA - Unspecified fall, initial encounter (7) CHF (congestive heart failure) Heart failure chronicity: acute on chronic Heart failure type: unspecified Qualified Code(s): I50.9 - Heart failure, unspecified
[2022-09-23] MEDS ORDERED: HEPARIN SOD 5,000 UNIT/0.5 ML VIAL SQ SCH (14:00)
[2022-09-23 16:17] LABS: Appearance Urine Cloudy (Clear); Bilirubin Urine Negative (Negative); Blood Urine 3+ (Negative); Color Urine Yellow; Glucose Urine UA Negative (Negative); Ketones Urine Negative (Negative); Leukocyte Esterase Urine 1+ (Negative); Nitrite Urine Negative (Negative); Protein Urine 1+ (Negative); Specific Gravity Urine 1.015 (1.000-1.030); Urobilinogen Urine Negative (Negative); pH Urine 5.5 (4.5-7.5)
[2022-09-23 16:30] LABS: Bacteria Urine 2+ (Negative)
[2022-09-23 16:52] LABS: Urine Potassium 35.9 mmol/L
[2022-09-23] MEDS: LANTUS PER UNIT CHARGE SC SCH (20:37)
[2022-09-23] MEDS: MELATONIN 3 MG TAB PO SCH (20:43)
[2022-09-24] MEDS: AVODART~ORDER AWAITING ACTION SCH ×3 (00:33→18:41)
[2022-09-24] MEDS: HEPARIN SOD 5,000 UNIT/0.5 ML VIAL SQ SCH ×3 (05:58→21:44)
[2022-09-24] MEDS: ACETAMINOPHEN 1,000 MG/100 ML VIAL IV SCH ×2 (05:58→13:52)
[2022-09-24 06:14] LABS: Basophils # (auto) 0.09 K/uL (0-0.2); Basophils % (auto) 0.9 %; Eosinophils % (auto) 11.6 %; Hematocrit (blood only) 30.7 % (42.0-52.0); Hemoglobin 10.2 g/dl (14.0-18.0); Immature Granulocytes # (auto) 0.05 K/uL (0.01-0.20); Immature Granulocytes % (auto) 0.5 %; Lymphocytes # (auto) 1.64 K/uL (1.2-3.4); Lymphocytes % (auto) 17.2 %; Mean Corpuscular Hemoglobin 29.1 pg (25.0-34.0); Mean Corpuscular Hgb Conc 33.2 g/dL (32.0-36.0); Mean Corpuscular Volume 87.7 fL (80.0-100.0); Mean Platelet Volume 10.9 fL (9.4-12.4); Monocytes # (auto) 1.47 K/uL (0.11-0.59); Monocytes % (auto) 15.5 %; Neutrophils # (auto) 5.16 K/uL (1.40-6.50); Neutrophils % (auto) 54.3 %; Platelet Count 155 K/uL (130-400); RDW Coefficient of Variation 17.5 % (11.5-14.5); RDW Standard Deviation 55.6 fL (36.4-46.3); White Blood Count 9.51 K/ul (4.8-10.8)
[2022-09-24 06:40] LABS: BUN Creatinine Ratio 24.7 (10-20); Calcium 8.1 mg/dl (8.6-10.3); Creatinine Clr Calc Pharmacy 43.6 ml/min; Est GFR (African American) 49.4 ml/min; Est GFR (Non-African American) 42.6 ml/min; Potassium 4.2 mmol/L (3.5-5.1)
[2022-09-24] MEDS: INSULIN ASPART PER UNIT CHARGE SC SCH ×4 (08:20→21:38)
[2022-09-24] MEDS: METOPROLOL SUCC 50MG EXT REL TAB PO SCH (08:46)
[2022-09-24] MEDS: TAMSULOSIN HCL 0.4 MG CAP PO SCH (08:46)
[2022-09-24] MEDS: ATORVASTATIN 40 MG TAB PO SCH (08:47)
[2022-09-24] MEDS: ESCITALOPRAM OXALATE 20 MG TAB PO SCH (08:47)
--- NOTE | 2022-09-24 09:09 | Pharmacy Report ---
Pharmacy Glycemic Sign Off Nt - Date of Service September 24, 2022 - Assessment & Plan ASSESSMENT: * Pharmacy was consulted by Tiffanie Arriola PA-C on 09/21/22 for glycemic control and to write orders per [facility] inpatient glycemic control protocol. * Major changes made by pharmacy to antidiabetic regimen include: * addition of Novolog and conservative basal scale * Patient has been receiving/requiring 0 units of insulin per day for adequate glycemic control * BSGs ranging 76-108 mg/dl * Regimen has only required minor adjustments over the past 48hrs to achieve this level of control * Do not anticipate further changes in patient status that would quickly deteriorate glycemic control (i.e. patient to be NPO for upcoming procedure, steroids tapering, starting tube feedings, etc). * Please see recommendations for outpatient antidiabetic regimen below. PLAN FOR INPATIENT GLYCEMIC CONTROL: No changes needed to current regimen. * Continue basal insulin with Lantus 0-5 units SC HS (see EHR for details) * Continue NovoLog per scale ACHS/Q6hrs while NPO * Goal range = 120-160 mg/dl * CF = 35 mg/dl/unit * No carb coverage * Pharmacy is signing off of glycemic consult and will no longer be making adjustments to inpatient regimen. Please feel free to re-consult if needed. Thank you.
--- NOTE | 2022-09-24 09:21 | Communication Note ---
Date of Service: September 24, 2022 Brief [facility] Med Note LMVM for dtr/POA sharad Da Silva call back, contact info provided. This is attempt #3. 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 Thank you for allowing us to participate in the ongoing care of this patient. Please don't hesitate to call or page with any additional concerns. Dr. Maria Ines Hernández DNP Director, Palliative Care
--- NOTE | 2022-09-24 10:17 | Palliative Family Discussion ---
Date of Service September 24, 2022 Patient Directed Conference Time of [id number] Participants: Maria Ines Hernández DNP Patient participation: no, pt is not decisional Other Healthcare Provider Participation: yanivr/EVANGELINA Da Silva Meeting Location:teleconferene A family meeting was held for TRUMAN AHUMADA. This meeting was necessary for determining the appropriate course of treatment. Topics of Discussion Topics of Discussion: 1. Inoperable fracture, too high risk due to cardiac risk 2. Advanicng dementia 3. Advancing heart disease 4. Comorbidities as noted previously we reviewed Dementia and hip fx: Hip fractures in those with advanced dementia prompts us to stop and consider the overall 1-year mortality of the patient and prognosis must be transparently d/w pt/family/designated surrogate decision maker(s). This discussion should include information on likelihood for functional recovery, patient values and preferences, advance care planning documentation, code status, and intensive care unit/re-hospitalization preferences. The benefits and burdens of both surgical and non-surgical management should be clearly communicated along with the best case, worst case, and the most likely scenario regarding both options. Considering the poor long- term survival, Palliative Medicine recommends initial hospice counseling for all patients with advanced dementia after a hip fracture. That being said, multiple studies have found that for residential residents with advanced dementia and hip fractures, patients who undergo surgery have lower mortality rates compared to those who do not have surgery when the surgery is done within 24 hours. A meta-analysis preformed on the timing of surgery in older patients with hip fracture found a statistically significant reduction in 1-year mortality of 18% in those operated on within 24 hours compared to over 24 hours. Repair within 24 hours is also associated with fewer postoperative complications (heart attack, pneumonia, or venous thromboembolism) at 30 days. Kleberenice T, et al. Impact of timing of surgery in elderly hip fracture patients: a systematic review and meta-analysis. Scientific Reports. 2018; 8: 29047. Anahi J, et al. Best case/worst case: training surgeons to use a novel communication tool for high-risk acute surgical problems. J Pain Symptom Manage 2017; 4: 711-719. Shan S, et al. Less than one?third of hip fracture patients return to their prefracture level of instrumental activities of daily living in a prospective cohort study of 480 patients. Ger[employer] Ger[employer]ology International. 2018; 18:0547-3002. Denise Flynn AL. Survival in end-stage dementia following acute illness. SHAILA. 2000; 284:47-52. We also spoke about Dementia prognosis with MRI score: Dementia is an irreversible syndrome of acquired and persistent impairment in cognition and intellectual functioning, leading to progressive brain failure and . Dorie (Dorie Ashton. Dementia and Neurodegenerative Disorders. In: Delmer ALARCON, Alfonso DE, eds. Geriatric Palliative Care. [place], [place]: [employer]; 2003.) classifies dementia into four functionally defined categories: mild, moderate, severe, and terminal. Terminal dementia is defined as loss of communication, ambulation, swallowing, and continence. Many prognostic factors have been associated with shortened survival: male gender, age, diabetes mellitus, CHF, COPD, cancer, cardiac dysrhythmias, peripheral edema, aspiration, bowel incontinence, recent weight loss, dehydration, fever, pressure ulcers, seizures, shortness of breath, low oral intake, not being awake for most of the day, low BMI, and recent need for continuous oxygen. A 2012 systematic review found that malnutrition, feeding issues, and dysphagia were the strongest associated factors with 6 month mortality in elderly patients with advanced dementia. Simply being admitted to the hospital with acute illness and end-stage or terminal dementia is associated with a particularly poor prognosis: the six month mortality after hospitalization for pneumonia was 53% compared with 13% for cognitively intact patients. For patients with a new hip fracture, 55% of end-stage dementia patients within 6 months compared with 12% for cognitively intact patients (Denise Flynn AL. Survival in end-stage dementia following acute illness. SHAILA. 2000; 284:47-52.). The Mortality Risk Index (MRI) score of >=12, demonstrated that 70% within 6 months (mean survival time not reported). Compared to FAST Stage 7C, the MRI had greater predictive value of six month prognosis. The MRI as only been evaluated in newly admitted residential residents; it has yet to be validated in the community setting or for previously established long-term residential residents. (Lindsay PAZ, Amy FREDERICK, Mehreen CHENEY, et al. Estimating prognosis for residential residents with advanced dementia. SHAILA. 2004; 291:5378-3781.) Access the MRI Score calculator at: [email or web address] Truman's MrI Score is 21.2 - > 16.1 49 - 62% I provided education about the hospice benefit: an interdisciplinary program offered by nurses, nurses aides, social workers, chaplains and a pesticide use medical coordinator for patients with a terminal condition and a life expectancy of less than 6 months. This is covered by Medicare at 100%/no out of pocket expense to patient and all meds/supplies needed by patient for the reason they are on hospice are paid for/covered by hospice. The goal is assure quality of life of the patient in their home setting (home, residential, inpatient hospice setting) by providing symptoms management, psychosocial and spiritual support. However, they cannot offer 24 hours care and if the family is unable to provide that care, they will have to consider personal care with out of pocket cost vs. residential placement. We discussed the goals of hospice as a patient service and the goals of care; we discussed EOL trajectories and transitions anthony the emotional impact of realizing mortality as a concrete reality from prior abstract considerations. Pt was reassured that no matter where they are along this trajectory, they are not alone - their medical team will remain by their side through their journey. Discussed the pros/cons of accepting help when especially weakened and distressed by pain-which would also help provide relief/decrease caregiver burden/strain. Rekha feels a shift to focus on comfort with hospice at [facility] would be ideal but will need to first speak with the rest of the family before making a final decision. She will let primary team know once they have decided. Other Content of Meetin. Opportunity given for participants to speak and ask questions. 2. Participants were assured of attention to patient comfort. 3. Reassurance provided. 4. Support was provided for informed, good-aristeo decisions. 5. Emotions expressed by family were acknowledged and addressed. 6. Follow-up Outpatient: not indicated but remain available for prn needs 7. Plan of Care: Rekha feels a shift to focus on comfort with hospice at [facility] would be ideal but will need to first speak with the rest of the family before making a final decision. She will let primary team know once they have decided. Time Involved in Meeting: I spent 45 minutes overall addressing this case: 5 in medical data review/discussion with referring provider(s) and/or preparation for the visit 25 Advance Care Planning/Goals of Care discussions as detailed above in note (must be >16min) 5 in subsequent review and synthesis of assessment and plan 5 in communicating with other providers regarding the patient's case: primary team
--- NOTE | 2022-09-24 15:43 | Hospitalist Progress Note ---
Date of Service September 24, 2022 Assessment & Plan (1) Fall: (2) Pelvic fracture: (3) Hematoma: Plan: Patient is a 87-year-old male with past medical history of insulin-dependent diabetes mellitus, CAD status post CABG, A-fib on Eliquis, sick sinus syndrome status post pacemaker presented to the hospital after he was found to have a fall. CT abdomen pelvis done on ED showed acute left superior and inferior pubic rami fracture. There was also intramuscular hematoma in left obturator internus. Seen by orthopedic- recommended weightbearing as tolerated on left lower extremity with a walker. Eliquis kept on hold due to concern for obturator hematoma. Pain control with [id number] Tylenol and low-dose of narcotics. CT abdomen and pelvis reviewed from 09/22/2022; intrapelvic extraperitoneal hemorrhage around pubic ring fracture modestly increased. Holding aspirin and Eliquis (4) Generalized weakness: (5) Persistent atrial fibrillation: Plan: -Rate controlled with metoprolol, Holding Eliquis with hematoma in left obturator muscle as described in imaging studies above (6) CHF (congestive heart failure): (7) HTN (hypertension): (8) Acute kidney injury superimposed on CKD: Plan: Labs reviewed; creatinine is 1.7; baseline around 1.3. Creatinine improved to 1.4. Avoid nephrotoxics (9) DM type 2 (diabetes mellitus, type 2): Plan: Insulin management per glycemic pharmacist Plan Patient was seen by palliative care. Family discussion was held and per daughter Rekha, family has decided to pursue hospice route. CM following. Will await hospice arrangement for discharge planning. Patient is currently comfortable and denies any needs. No further escalation of care. [facility]. Admission and Anticipated Discharge Date Admission Date: September 21, 2022 Subjective Patient was seen and examined at bedside. Eating lunch. He feels good. States pain is controlled. No fever, chills, chest pain or shortness of breath nausea or vomiting. Review of Systems Review of Systems: All systems reviewed & are unremarkable except as noted in Subjective Physical Exam Physical Exam: General: Sitting comfortably in bed eating lunch, not in distress, on room air HEENT: JEREMIE, MMM Chest: Clear breath sounds bilaterally, no wheezes or crackles CVS: Regular rate and rhythm, normal heart sounds, no murmur Abdomen: Soft, non tender, not distended, normal bowel sounds Neuro: Awake, alert, oriented to self and place, conversing appropriately, follows simple commands Extremities: No cyanosis, clubbing. bilateral pitting edema Results & Data Results & Data Vital Signs (Past 12 Hours) Vital Signs Temp Pulse Pulse Resp BP Pulse Ox O2 Del Method 09/24/22 11:26 36.8 C 62 16 117/71 91 Room Air 09/24/22 10:40 Nasal Cannula 09/24/22 08:37 61 09/24/22 07:19 36.5 C 61 18 124/74 91 Room Air O2 Flow Rate 09/24/22 11:26 09/24/22 10:40 1 09/24/22 08:37 09/24/22 07:19 Laboratory Results Short CBC 09/24/22 Range/Units 05:48 WBC 9.51 (4.8-10.8) K/ul Hgb 10.2 L (14.0-18.0) g/dl Hct 30.7 L (42.0-52.0) % Plt Count 155 (130-400) K/uL BMP 09/24/22 05:48 Sodium 136 Potassium 4.2 Chloride 105 Carbon Dioxide 24 BUN 36 H Creatinine 1.46 H D Glucose 119 H Calcium 8.1 L Urine 09/23/22 Range/Units Unknown Urine Color Yellow Urine Appearance Cloudy A (Clear) Urine pH 5.5 (4.5-7.5) Ur Specific [place] 1.015 (1.000-1.030) Urine Protein 1+ H (Negative) Urine Glucose (UA) Negative (Negative) Medications Administered Current Inpatient Medications Acetaminophen (Acetaminophen 325 Mg Tab) 650 mg PO Q4H PRN PRN Reason: Moderate Pain (Scale 4, 5, 6) Stop: 10/21/22 20:44 Atorvastatin Calcium (Atorvastatin 40 Mg Tab) 40 mg PO DAILY CLARISSA Stop: 10/22/22 08:59 Last Admin: 09/24/22 08:47 Dose: 40 mg Dextrose (Dextrose 50% 50 Ml Syringe) 25 - 50 ml IV UD PRN; Protocol PRN Reason: Hypoglycemia Protocol Stop: 10/21/22 20:03 Last Admin: 09/22/22 11:44 Dose: 25 ml Escitalopram Oxalate (Escitalopram Oxalate 20 Mg Tab) 20 mg PO DAILY CLARISSA Stop: 10/23/22 08:59 Last Admin: 09/24/22 08:47 Dose: 20 mg Glucagon (Glucagon For Inj 1 Mg Vial) 1 mg SQ UD PRN; Protocol PRN Reason: Hypoglycemia Protocol Stop: 10/21/22 20:03 Glucose (Glucose 10 Tab/Tube) 4 - 8 tab PO UD PRN; Protocol PRN Reason: Hypoglycemia Treatment Stop: 10/21/22 20:03 Glucose (Glucose 40% Gel 15 Gm Tube) 15 - 30 gm PO UD PRN; Protocol PRN Reason: Hypoglycemia Protocol Stop: 10/21/22 20:03 Heparin Sodium (Porcine) (Heparin Sod 5,000 Unit/0.5 Ml Vial) 5,000 units SQ Q8 CLARISSA Stop: 10/22/22 13:59 Last Admin: 09/24/22 13:58 Dose: 5,000 units Acetaminophen (Ofirmev) 1,000 mg in 100 mls @ 400 mls/hr IV Q8H [facility] Stop: 09/24/22 19:29 Last Infusion: 09/24/22 14:07 Dose: Infused Insulin Aspart (Insulin Aspart Per Unit Charge) 0 units SC ACHS [facility] Stop: 10/22/22 00:00 Last Admin: 09/24/22 12:12 Dose: 1 units Insulin Glargine (Lantus Per Unit Charge) 0 units SC [facility]; Protocol Stop: 10/22/22 20:59 Last Admin: 09/23/22 20:37 Dose: Not Given Melatonin (Melatonin 3 Mg Tab) 6 mg PO HS [facility] Stop: 10/22/22 20:59 Last Admin: 09/23/22 20:43 Dose: 6 mg Metoprolol Succinate (Metoprolol Succ 50mg Ext Rel Tab) 50 mg PO QAM [facility] Stop: 10/22/22 08:59 Last Admin: 09/24/22 08:46 Dose: 50 mg Miscellaneous (Avodart~Order Awaiting Action) 1 each N/A QS [facility] Stop: 10/22/22 00:00 Last Admin: 09/24/22 00:33 Dose: Not Given Miscellaneous (Carbohydrates For Hypoglycemia ) 15 - 30 gm PO UD PRN PRN Reason: Hypoglycemia Protocol Stop: 10/21/22 20:03 Morphine Sulfate (Morphine Sulfate 2 Mg/Ml Carp) 0.5 mg IV Q12H PRN PRN Reason: Pain, severe, rating 8,9,10 Stop: 10/05/22 19:13 Last Admin: 09/23/22 11:31 Dose: 0.5 mg Nitroglycerin (Nitroglycerin Sl 0.4 Mg/Tab Tab) 0.4 mg SL UD PRN PRN Reason: Chest Pain Stop: 10/22/22 13:28 Ondansetron HCl (Ondansetron Inj 2 Mg/Ml 2 Ml Vial) 4 mg IV Q4H PRN PRN Reason: Nausea And Vomiting Stop: 10/21/22 20:44 Tamsulosin HCl (Tamsulosin Hcl 0.4 Mg Cap) 0.4 mg PO DAILY CLARISSA Stop: 10/22/22 08:59 Last Admin: 09/24/22 08:46 Dose: 0.4 mg (1) Fall Encounter type: initial encounter Qualified Code(s): W19.XXXA - Unspecified fall, initial encounter (6) CHF (congestive heart failure) Heart failure chronicity: acute on chronic Heart failure type: unspecified Qualified Code(s): I50.9 - Heart failure, unspecified
[2022-09-24] MEDS: LANTUS PER UNIT CHARGE SC SCH (21:38)
[2022-09-24] MEDS: MELATONIN 3 MG TAB PO SCH (21:41)
[2022-09-25] MEDS: AVODART~ORDER AWAITING ACTION SCH ×3 (01:21→15:29)
[2022-09-25] MEDS: HEPARIN SOD 5,000 UNIT/0.5 ML VIAL SQ SCH ×3 (06:26→21:35)
[2022-09-25] MEDS: TAMSULOSIN HCL 0.4 MG CAP PO SCH (07:40)
[2022-09-25] MEDS: METOPROLOL SUCC 50MG EXT REL TAB PO SCH (07:40)
[2022-09-25] MEDS: ESCITALOPRAM OXALATE 20 MG TAB PO SCH (07:40)
[2022-09-25] MEDS: ATORVASTATIN 40 MG TAB PO SCH (07:40)
[2022-09-25] MEDS: INSULIN ASPART PER UNIT CHARGE SC SCH ×4 (08:17→21:34)
--- NOTE | 2022-09-25 13:55 | Hospitalist Progress Note ---
Date of Service September 25, 2022 Assessment & Plan (1) Fall: (2) Pelvic fracture: (3) Hematoma: Plan: Patient is a 87-year-old male with past medical history of insulin-dependent diabetes mellitus, CAD status post CABG, A-fib on Eliquis, sick sinus syndrome status post pacemaker presented to the hospital after he was found to have a fall. CT abdomen pelvis done on ED showed acute left superior and inferior pubic rami fracture. There was also intramuscular hematoma in left obturator internus. Seen by orthopedic- recommended weightbearing as tolerated on left lower extremity with a walker. Eliquis kept on hold due to concern for obturator hematoma. Pain control with [id number] Tylenol and low-dose of narcotics. CT abdomen and pelvis reviewed from 09/22/2022; intrapelvic extraperitoneal hemorrhage around pubic ring fracture modestly increased. Holding aspirin and Eliquis (4) Generalized weakness: (5) Persistent atrial fibrillation: Plan: -Rate controlled with metoprolol, Holding Eliquis with hematoma in left obturator muscle as described in imaging studies above (6) CHF (congestive heart failure): (7) HTN (hypertension): (8) Acute kidney injury superimposed on CKD: Plan: Labs reviewed; creatinine is 1.7; baseline around 1.3. Creatinine improved to 1.4. Avoid nephrotoxics (9) DM type 2 (diabetes mellitus, type 2): Plan: Insulin management per glycemic pharmacist Plan Patient was seen by palliative care. Family has decided to go for hospice. Per case management who spoke with [facility] hospice, they can get equipment for patient and admit him Tuesday if he is discharged. Tuesday is when [facility] is able to see patient back. Continue current management. No further escalation of care. Admission and Anticipated Discharge Date Admission Date: September 21, 2022 Subjective Patient was seen and examined at bedside. He sitting comfortably in the chair, ready to eat breakfast. He feels fine. He states he was at home last night and came to the hospital this morning. No fever, chills, chest pain or shortness of breath nausea or vomiting. Review of Systems Review of Systems: All systems reviewed & are unremarkable except as noted in Subjective Physical Exam Physical Exam: General: Sitting comfortably in chair, not in distress, on room air HEENT: JEREMIE, MMM Chest: Clear breath sounds bilaterally, no wheezes or crackles CVS: Regular rate and rhythm, normal heart sounds, no murmur Abdomen: Soft, non tender, not distended, normal bowel sounds Neuro: Awake, alert, oriented to self and place, conversing appropriately, follows simple commands Extremities: No cyanosis, clubbing. bilateral pitting edema Results & Data Results & Data Vital Signs (Past 12 Hours) Vital Signs Temp Pulse Resp BP Pulse Ox O2 Del Method O2 Flow Rate 09/25/22 07:30 Nasal Cannula 2 09/25/22 07:39 36.4 C L 63 18 134/75 93 Room Air (1) Fall Encounter type: initial encounter Qualified Code(s): W19.XXXA - Unspecified fall, initial encounter (6) CHF (congestive heart failure) Heart failure chronicity: acute on chronic Heart failure type: unspecified Qualified Code(s): I50.9 - Heart failure, unspecified
[2022-09-25] MEDS: LANTUS PER UNIT CHARGE SC SCH (21:34)
[2022-09-25] MEDS: MELATONIN 3 MG TAB PO SCH (21:35)
[2022-09-26] MEDS: AVODART~ORDER AWAITING ACTION SCH ×3 (01:17→14:34)
[2022-09-26] MEDS: HEPARIN SOD 5,000 UNIT/0.5 ML VIAL SQ SCH (06:28)
[2022-09-26] MEDS: METOPROLOL SUCC 50MG EXT REL TAB PO SCH (07:35)
[2022-09-26] MEDS: TAMSULOSIN HCL 0.4 MG CAP PO SCH (07:35)
[2022-09-26] MEDS: ESCITALOPRAM OXALATE 20 MG TAB PO SCH (07:36)
[2022-09-26] MEDS: ATORVASTATIN 40 MG TAB PO SCH (07:36)
[2022-09-26] MEDS: INSULIN ASPART PER UNIT CHARGE SC SCH ×4 (08:47→20:50)
--- NOTE | 2022-09-26 09:40 | Hospitalist Progress Note ---
Date of Service September 26, 2022 Assessment & Plan (1) Fall: (2) Pelvic fracture: (3) Hematoma: Plan: Patient is a 87-year-old male with past medical history of insulin-dependent diabetes mellitus, CAD status post CABG, A-fib on Eliquis, sick sinus syndrome status post pacemaker presented to the hospital after he was found to have a fall. CT abdomen pelvis done on ED showed acute left superior and inferior pubic rami fracture. There was also intramuscular hematoma in left obturator internus. Seen by orthopedic- recommended weightbearing as tolerated on left lower extremity with a walker. Eliquis kept on hold due to concern for obturator hematoma. Pain control with [id number] Tylenol and low-dose of narcotics. CT abdomen and pelvis reviewed from 09/22/2022; intrapelvic extraperitoneal hemorrhage around pubic ring fracture modestly increased. Holding aspirin and Eliquis (4) Generalized weakness: (5) Persistent atrial fibrillation: Plan: -Rate controlled with metoprolol, Holding Eliquis with hematoma in left obturator muscle as described in imaging studies above (6) CHF (congestive heart failure): (7) HTN (hypertension): Plan: BP stable (8) Acute kidney injury superimposed on CKD: Plan: Labs reviewed; creatinine is 1.7; baseline around 1.3. Creatinine improved to 1.4. Avoid nephrotoxics (9) DM type 2 (diabetes mellitus, type 2): Plan: Insulin management per glycemic pharmacist Plan Patient was seen by palliative care. Family has decided to go for hospice. Per case management who spoke with [facility] hospice, they can get equipment for patient and admit him Tuesday if he is discharged. Tuesday is when [facility] is able to see patient back. Continue current management. Per RN, daughter wanted sc heparin discontinued as he is going on hospice. No further escalation of care. Admission and Anticipated Discharge Date Admission Date: September 21, 2022 Subjective Patient was seen and examined at bedside. He is sitting in bed, eating breakfast. Comfortable. Denies any issues. No fever, N/V. Review of Systems Review of Systems: All systems reviewed & are unremarkable except as noted in Subjective Physical Exam Physical Exam: General: Sitting comfortably in bed eating breakfast, not in distress, on NC HEENT: J[place], MMM Chest: Clear breath sounds bilaterally, no wheezes or crackles CVS: Regular rate and rhythm, normal heart sounds, no murmur Abdomen: Soft, non tender, not distended, normal bowel sounds Neuro: Awake, alert, conversing appropriately, follows simple commands Extremities: No cyanosis, clubbing. + edema Results & Data Results & Data Vital Signs (Past 12 Hours) Vital Signs Temp Pulse Resp BP BP Pulse Ox O2 Del Method 09/26/22 07:48 36.6 C 63 18 149/83 H 95 Nasal Cannula 09/25/22 23:39 36.6 C 62 18 129/77 97 Nasal Cannula O2 Flow Rate 09/26/22 07:48 2 09/25/22 23:39 2 Medications Administered Current Inpatient Medications Acetaminophen (Acetaminophen 325 Mg Tab) 650 mg PO Q4H PRN PRN Reason: Moderate Pain (Scale 4, 5, 6) Stop: 10/21/22 20:44 Atorvastatin Calcium (Atorvastatin 40 Mg Tab) 40 mg PO DAILY [facility] Stop: 10/22/22 08:59 Last Admin: 09/26/22 07:36 Dose: 40 mg Dextrose (Dextrose 50% 50 Ml Syringe) 25 - 50 ml IV UD PRN; Protocol PRN Reason: Hypoglycemia Protocol Stop: 10/21/22 20:03 Last Admin: 09/22/22 11:44 Dose: 25 ml Escitalopram Oxalate (Escitalopram Oxalate 20 Mg Tab) 20 mg PO DAILY [facility] Stop: 10/23/22 08:59 Last Admin: 09/26/22 07:36 Dose: 20 mg Glucagon (Glucagon For Inj 1 Mg Vial) 1 mg SQ UD PRN; Protocol PRN Reason: Hypoglycemia Protocol Stop: 10/21/22 20:03 Glucose (Glucose 10 Tab/Tube) 4 - 8 tab PO UD PRN; Protocol PRN Reason: Hypoglycemia Treatment Stop: 10/21/22 20:03 Glucose (Glucose 40% Gel 15 Gm Tube) 15 - 30 gm PO UD PRN; Protocol PRN Reason: Hypoglycemia Protocol Stop: 10/21/22 20:03 Insulin Aspart (Insulin Aspart Per Unit Charge) 0 units SC ACHS [facility] Stop: 10/22/22 00:00 Last Admin: 09/26/22 08:47 Dose: Not Given Insulin Glargine (Lantus Per Unit Charge) 0 units SC HS [facility]; Protocol Stop: 10/22/22 20:59 Last Admin: 05/06/23 21:34 Dose: 5 units Melatonin (Melatonin 3 Mg Tab) 6 mg PO HS [facility] Stop: 10/22/22 20:59 Last Admin: 09/25/22 21:35 Dose: 6 mg Metoprolol Succinate (Metoprolol Succ 50mg Ext Rel Tab) 50 mg PO QAM [facility] Stop: 10/22/22 08:59 Last Admin: 09/26/22 07:35 Dose: 50 mg Miscellaneous (Avodart~Order Awaiting Action) 1 each N/A QS [facility] Stop: 10/22/22 00:00 Last Admin: 09/26/22 07:19 Dose: Not Given Miscellaneous (Carbohydrates For Hypoglycemia ) 15 - 30 gm PO UD PRN PRN Reason: Hypoglycemia Protocol Stop: 10/21/22 20:03 Morphine Sulfate (Morphine Sulfate 2 Mg/Ml Carp) 0.5 mg IV Q12H PRN PRN Reason: Pain, severe, rating 8,9,10 Stop: 10/05/22 19:13 Last Admin: 09/23/22 11:31 Dose: 0.5 mg Nitroglycerin (Nitroglycerin Sl 0.4 Mg/Tab Tab) 0.4 mg SL UD PRN PRN Reason: Chest Pain Stop: 10/22/22 13:28 Ondansetron HCl (Ondansetron Inj 2 Mg/Ml 2 Ml Vial) 4 mg IV Q4H PRN PRN Reason: Nausea And Vomiting Stop: 10/21/22 20:44 Tamsulosin HCl (Tamsulosin Hcl 0.4 Mg Cap) 0.4 mg PO DAILY [facility] Stop: 10/22/22 08:59 Last Admin: 09/26/22 07:35 Dose: 0.4 mg (1) Fall Encounter type: initial encounter Qualified Code(s): W19.XXXA - Unspecified fall, initial encounter (6) CHF (congestive heart failure) Heart failure chronicity: acute on chronic Heart failure type: unspecified Qualified Code(s): I50.9 - Heart failure, unspecified
[2022-09-26] MEDS: MELATONIN 3 MG TAB PO SCH (20:18)
[2022-09-26] MEDS: LANTUS PER UNIT CHARGE SC SCH (20:56)
[2022-09-27] MEDS: AVODART~ORDER AWAITING ACTION SCH ×2 (00:41→07:02)
[2022-09-27] MEDS: TAMSULOSIN HCL 0.4 MG CAP PO SCH (08:19)
[2022-09-27] MEDS: ATORVASTATIN 40 MG TAB PO SCH (08:19)
[2022-09-27] MEDS: ESCITALOPRAM OXALATE 20 MG TAB PO SCH (08:19)
[2022-09-27] MEDS: METOPROLOL SUCC 50MG EXT REL TAB PO SCH (08:20)
[2022-09-27] MEDS: INSULIN ASPART PER UNIT CHARGE SC SCH ×2 (08:30→12:22)
--- NOTE | 2022-09-27 13:02 | Hospitalist Progress Note ---
Date of Service September 27, 2022 Assessment & Plan (1) Fall: (2) Pelvic fracture: (3) Hematoma: Plan: Patient is a 87-year-old male with past medical history of insulin-dependent diabetes mellitus, CAD status post CABG, A-fib on Eliquis, sick sinus syndrome status post pacemaker presented to the hospital after he was found to have a fall. CT abdomen pelvis done on ED showed acute left superior and inferior pubic rami fracture. There was also intramuscular hematoma in left obturator internus. Seen by orthopedic- recommended weightbearing as tolerated on left lower extremity with a walker. Eliquis kept on hold due to concern for obturator hematoma. Pain control with [id number] Tylenol and low-dose of narcotics. CT abdomen and pelvis reviewed from 09/22/2022; intrapelvic extraperitoneal hemorrhage around pubic ring fracture modestly increased. Holding aspirin and Eliquis Appreciate palliative care input and recommendation He has been accepted to go to [facility] this afternoon under hospice care (4) Generalized weakness: (5) Persistent atrial fibrillation: Plan: -Rate controlled with metoprolol, Holding Eliquis with hematoma in left obturator muscle as described in imaging studies above -No acute cardiac symptoms (6) CHF (congestive heart failure): Plan: No signs and or symptoms of fluid overload (7) HTN (hypertension): Plan: BP stable We will continue current medications (8) Acute kidney injury superimposed on CKD: Plan: Labs reviewed; creatinine is 1.7; baseline around 1.3. Creatinine improved to 1.4. Avoid nephrotoxics (9) DM type 2 (diabetes mellitus, type 2): Plan: Insulin management per glycemic pharmacist Will continue with outpatient regimen Plan Patient was seen by palliative care. Family has decided to go for hospice. Per case management who spoke with [facility] hospice, they can get equipment for patient and admit him Tuesday if he is discharged. Tuesday is when [facility] is able to see patient back. Continue current management. Per RN, daughter wanted sc heparin discontinued as he is going on hospice. No further escalation of care. To be discharged to [facility] this afternoon Admission and Anticipated Discharge Date Admission Date: September 21, 2022 Subjective 09/27/2022 The patient was seen and examined in medical floor He has been stable at rest without any symptoms Complains pain with movement Denies any other significant symptoms and agreeable to go to [facility] today Review of Systems Review of Systems: All systems reviewed and are unremarkable except as noted below Physical Exam Physical Exam: Lying in bed comfortably Constitutional: well developed, well nourished and + obese; not ill appearing Eyes: PERRL, conjunctivae normal, anicteric sclerae ENMT: external ear and nose normal, oropharynx normal Neck: trachea midline, no thyromegaly Respiratory: no respiratory distress Auscultation: lungs clear to auscultation bilaterally Cardiovascular: Rate/Rhythm: regular rate and regular rhythm; not tachycardic Heart Sounds: normal S1 and normal S2; no murmur Extremities: + edema ( Trace edema bilaterally) Gastrointestinal (Abdomen): Inspection/Auscultation: normal bowel sounds; abdomen not distended Percussion/Palpation: abdomen soft; abdomen nontender Musculoskeletal: No acute arthritis involving any joint Neurologic: Alert, awake and oriented x3. Generally weak Lymphatic: no cervical or axillary lymphadenopathy Results & Data Results & Data Vital Signs (Past 12 Hours) Vital Signs Temp Pulse Resp BP Pulse Ox O2 Del Method O2 Flow Rate 09/27/22 09:36 Nasal Cannula 2 09/27/22 07:46 36.9 C 62 16 129/72 94 Nasal Cannula 2 Medications Administered Current Inpatient Medications Acetaminophen (Acetaminophen 325 Mg Tab) 650 mg PO Q4H PRN PRN Reason: Moderate Pain (Scale 4, 5, 6) Stop: 10/21/22 20:44 Atorvastatin Calcium (Atorvastatin 40 Mg Tab) 40 mg PO DAILY [facility] Stop: 10/22/22 08:59 Last Admin: 09/27/22 08:19 Dose: 40 mg Dextrose (Dextrose 50% 50 Ml Syringe) 25 - 50 ml IV UD PRN; Protocol PRN Reason: Hypoglycemia Protocol Stop: 10/21/22 20:03 Last Admin: 09/22/22 11:44 Dose: 25 ml Escitalopram Oxalate (Escitalopram Oxalate 20 Mg Tab) 20 mg PO DAILY [facility] Stop: 10/23/22 08:59 Last Admin: 09/27/22 08:19 Dose: 20 mg Glucagon (Glucagon For Inj 1 Mg Vial) 1 mg SQ UD PRN; Protocol PRN Reason: Hypoglycemia Protocol Stop: 10/21/22 20:03 Glucose (Glucose 10 Tab/Tube) 4 - 8 tab PO UD PRN; Protocol PRN Reason: Hypoglycemia Treatment Stop: 10/21/22 20:03 Glucose (Glucose 40% Gel 15 Gm Tube) 15 - 30 gm PO UD PRN; Protocol PRN Reason: Hypoglycemia Protocol Stop: 10/21/22 20:03 Insulin Aspart (Insulin Aspart Per Unit Charge) 0 units SC ACHS [facility] Stop: 10/22/22 00:00 Last Admin: 09/27/22 12:22 Dose: 2 units Insulin Glargine (Lantus Per Unit Charge) 0 units SC [facility]; Protocol Stop: 10/22/22 20:59 Last Admin: 09/26/22 20:56 Dose: Not Given Melatonin (Melatonin 3 Mg Tab) 6 mg PO HS [facility] Stop: 10/22/22 20:59 Last Admin: 09/26/22 20:18 Dose: 6 mg Metoprolol Succinate (Metoprolol Succ 50mg Ext Rel Tab) 50 mg PO QAM [facility] Stop: 10/22/22 08:59 Last Admin: 09/27/22 08:20 Dose: 50 mg Miscellaneous (Avodart~Order Awaiting Action) 1 each N/A QS [facility] Stop: 10/22/22 00:00 Last Admin: 09/27/22 07:02 Dose: Not Given Miscellaneous (Carbohydrates For Hypoglycemia ) 15 - 30 gm PO UD PRN PRN Reason: Hypoglycemia Protocol Stop: 10/21/22 20:03 Morphine Sulfate (Morphine Sulfate 2 Mg/Ml Carp) 0.5 mg IV Q12H PRN PRN Reason: Pain, severe, rating 8,9,10 Stop: 10/05/22 19:13 Last Admin: 09/23/22 11:31 Dose: 0.5 mg Nitroglycerin (Nitroglycerin Sl 0.4 Mg/Tab Tab) 0.4 mg SL UD PRN PRN Reason: Chest Pain Stop: 10/22/22 13:28 Ondansetron HCl (Ondansetron Inj 2 Mg/Ml 2 Ml Vial) 4 mg IV Q4H PRN PRN Reason: Nausea And Vomiting Stop: 10/21/22 20:44 Tamsulosin HCl (Tamsulosin Hcl 0.4 Mg Cap) 0.4 mg PO DAILY [facility] Stop: 10/22/22 08:59 Last Admin: 09/27/22 08:19 Dose: 0.4 mg (1) Fall Encounter type: initial encounter Qualified Code(s): W19.XXXA - Unspecified fall, initial encounter (6) CHF (congestive heart failure) Heart failure chronicity: acute on chronic Heart failure type: unspecified Qualified Code(s): I50.9 - Heart failure, unspecified
--- NOTE | 2022-09-28 08:07 | Discharge Summary ---
Date of Service September 27, 2022 Admission HPI Per Admitting Provider This is an 87-year-old male with past medical history significant for insulin- dependent diabetes; heart failure with preserved ejection fraction; CAD status post CABG; AFib, on Eliquis; history of chronic indwelling catheter, but was now taken off because of recurrent UTI; history of urinary incontinence; dementia; sick sinus syndrome, status post pacemaker; hypertension; hyperlipidemia, currently living at [facility] in [place] who presents today after being found by EMS at [facility] after a fall. Pt was recently admitted earlier this year 06/05-06/10 due to acute respiratory failure with hypoxia secondary to acute on chronic systolic heart failure. He was then readmitted on 06/11- 06/16 with acute metabolic encephalopathy likely secondary to pneumonia, concern for aspiration and UTI. Pt daughter Ralf is present amongst other friends at bedside. She received call this afternoon at 3:22 from [facility] that the patient was found down and blue in his face, and RR was 8. EMS was called and when he was loaded into ambulance he was awake and yelling that he had pain in his arm, and this was around 4 pm. Pt knows he is in the hospital and is recognizing family at bedside. He was given fentanyl 25 mcg for significant pelvic pain with minimal movement and now is calm, asleep, and requiring oxygen where he typically does not need any at baseline. She notes that yesterday he was started on an antibiotic tablet at [facility] as there were concerns for new onset pneumonia as he had increased shortness of breath and some wheezing yesterday heard by her brother (he is not present here) while he was visiting the patient there yesterday. No known episodes of fever. No known other infectious source. Patient is unable to participate or provide his own ROS. CT of the abdomen pelvis was done, which shows a left obturator internus hematoma, The bladder is distended, the wall is thickened trabecula and indicating chronic outlet obstruction. There is evidence of bilateral inguinal herniorrhaphy. Intramuscular hemorrhage is noted within the left obturator internus. The skeletal structures are osteopenic. There are acute left superior and inferior pubic ring fractures with surrounding hemorrhage. The superior pubic ring fracture extends to the acetabulum. There is a chronic compression deformity of L1 with evidence of previous vertebroplasty. No lytic or blastic lesions are seen. There is chronic posttraumatic deformity at the sacrococcygeal junction. Labs reveal leukocytosis with WBC = 12.44, anemia with hemoglobin of 10.7, platelets are stable at 177, INR = 1.2, (patient was recently transitioned off of Coumadin and on Eliquis), lactic acid of 2.0, troponin of 25.3. Admission Exam Per Admitting Provider Physical Exam: General: Asleep, awakens at the end of the visit, recognizes daughter at bedside, comfortable, no apparent distress Head: Normocephalic, atraumatic ENT: PERRL, EOMI, no pharyngeal exudate, mucous membranes wet Chest: Clear to auscultation, +faint wheeze on expiration, on 4L via NS with sats at 92-93%, no adventitious breath sounds Cardiac: Irregularly irregulary, rate controlled, no murmur, no JVD, normal peripheral pulses, good capillary refill Abdominal: NABS x 4 quadrants, soft, nondistended, nontender to palpation, no rebound or guarding Extremities: Normal inspection, +trace edema, no erythema, calfs nontender to palpation Psych: Normal mood and affect Neuro: awakens to stimuli, strength not assessed due to pelvic fracture and pain, no obvious motor deficits, speech is slightly garbled but not slurred Principal Diagnosis Status post fall with pelvic fracture, persistent atrial fibrillation, hypertension, controlled CHF Discharge Exam Physical Exam: Lying in bed comfortably Constitutional: well developed, well nourished and + obese; not ill appearing Eyes: PERRL, conjunctivae normal, anicteric sclerae ENMT: external ear and nose normal, oropharynx normal Neck: trachea midline, no thyromegaly Respiratory: no respiratory distress Auscultation: lungs clear to auscultation bilaterally Cardiovascular: Rate/Rhythm: regular rate and regular rhythm; not tachycardic Heart Sounds: normal S1 and normal S2; no murmur Extremities: + edema (Trace edema bilaterally) Gastrointestinal (Abdomen): Inspection/Auscultation: normal bowel sounds; abdomen not distended Percussion/Palpation: abdomen soft; abdomen nontender Musculoskeletal: No acute arthritis involving any joint Neurologic: Alert, awake and oriented x3. Generally weak Lymphatic: no cervical or axillary lymphadenopathy Discharge Data Allergies Allergy/AdvReac Type Severity Reaction Status Date / Time shellfish derived Allergy Severe anaphylaxis Verified 06/05/22 16:36 clopidogrel Allergy Intermediate INTERNAL Verified 06/05/22 16:36 HIVES Penicillins Allergy Intermediate HIVES Verified 06/14/22 08:27 Consultations 09/21/22 18:54 ED Decision to Admit Stat 09/21/22 19:13 Consult Orthopedic Surgery Routine Consult Palliative Care Routine Ordered Studies 09/21/22 16:14 CT abd pelvis wo con Stat CT cervical spine wo con Stat CT chest diagnostic wo con Stat CT head/brain wo con Stat 09/22/22 08:00 CT abd pelvis wo con Routine Hospital Course (1) Fall: (2) Pelvic fracture: (3) Hematoma: (4) Generalized weakness: (5) Persistent atrial fibrillation: (6) CHF (congestive heart failure): (7) HTN (hypertension): (8) Acute kidney injury superimposed on CKD: (9) DM type 2 (diabetes mellitus, type 2): Plan Assessment & Plan (1) Fall: (2) Pelvic fracture: (3) Hematoma: Plan: Patient is a 87-year-old male with past medical history of insulin-dependent diabetes mellitus, CAD status post CABG, A-fib on Eliquis, sick sinus syndrome status post pacemaker presented to the hospital after he was found to have a fall. CT abdomen pelvis done on ED showed acute left superior and inferior pubic rami fracture. There was also intramuscular hematoma in left obturator internus. Seen by orthopedic- recommended weightbearing as tolerated on left lower extremity with a walker. Eliquis kept on hold due to concern for obturator hematoma. Pain control with [id number] Tylenol and low-dose of narcotics. CT abdomen and pelvis reviewed from 09/22/2022; intrapelvic extraperitoneal hemorrhage around pubic ring fracture modestly increased. Holding aspirin and Eliquis Appreciate palliative care input and recommendation He has been accepted to go to [facility] this afternoon under hospice care (4) Generalized weakness: (5) Persistent atrial fibrillation: Plan: -Rate controlled with metoprolol, Holding Eliquis with hematoma in left obturator muscle as described in imaging studies above -No acute cardiac symptoms (6) CHF (congestive heart failure): Plan: No signs and or symptoms of fluid overload (7) HTN (hypertension): Plan: BP stable We will continue current medications (8) Acute kidney injury superimposed on CKD: Plan: Labs reviewed; creatinine is 1.7; baseline around 1.3. Creatinine improved to 1.4. Avoid nephrotoxics (9) DM type 2 (diabetes mellitus, type 2): Plan: Insulin management per glycemic pharmacist Will continue with outpatient regimen Total Time Total Time Spent Total Time Spent (In Minutes): 40 minutes Discharge Plan Discharge Items Patient Disposition: Hospice - Medical Facility Reason For Visit: PELVIC FRACTURE, AMS, FALL Discharge Diagnosis: Status post fall with pelvic fracture, persistent atrial fibrillation, hypertension, controlled CHF Condition on Discharge: Fair Activity: As commented below Activity Comment: Needs assistance with ADLs Non-emergency contact: Primary Care Provider Call non-emergency contact if: you have any medication questions and your symptoms worsen Follow-up/Referrals: [facility] [Primary Care Provider] - Diet: Regular and Carb Consistent or DM2 Addtl Attending Provider Instructions: Please take precautions to avoid fall Take your medications as advised Follow-up with your providers as per hospice care Pending Studies at Discharge: No Stand-Alone Forms: My [facility] Skilled Items Patient informed of condition?: Yes Discharge Level of Care: Other Communicable Disease: No Discharge Prognosis: Stable Lines: None Urinary Catheter: Yes Medications and DC Order Prescriptions: Continued dutasteride 0.5 mg capsule 0.5 mg PO DAILY Qty: 90 0RF furosemide [Lasix] 40 mg Tablet 40 mg PO DAILY atorvastatin 40 mg Tablet 40 mg PO DAILY acetaminophen [Tylenol] 325 mg Tablet 650 mg PO Q6 MDD 3g PRN (Reason: Pain) metoprolol succinate 50 mg Tablet Extended Release 24 Hr 50 mg PO QAM calcium carbonate [Tums E-X] 300 mg (750 mg) Tablet,Chewable 1,200 mg PO TID PRN (Reason: Indigestion) Rx Instructions: chew 2 tablets tamsulosin 0.4 mg Capsule 0.4 mg PO DAILY pantoprazole 40 mg Tablet,Delayed Release (Dr/Ec) 40 mg PO DAILY nitroglycerin [Nitrostat] 0.4 mg Tablet, Sublingual 0.4 mg sublingual DIRECTED PRN (Reason: Chest Pain) Rx Instructions: dissolve under tongue as needed for chest pain, may repeat every 5 minutes x 3 dose melatonin 5 mg Tablet 5 mg PO HS escitalopram oxalate 20 mg tablet 20 mg PO DAILY Discontinued losartan 50 mg Tablet 50 mg PO DAILY amlodipine 5 mg Tablet 5 mg PO DAILY aspirin 81 mg Tablet,Delayed Release (Dr/Ec) 81 mg PO DAILY isosorbide mononitrate 60 mg Tablet Extended Release 24 Hr 60 mg PO DAILY insulin aspart U-100 [Novolog FlexPen U-100 Insulin] 100 unit/mL (3 mL) Insulin Pen 5 unit SUBCUT BID Rx Instructions: 0800,1700 insulin glargine [Lantus Solostar U-100 Insulin] 100 unit/mL (3 mL) Insulin Pen 18 unit SUBCUT BID Rx Instructions: 0800,1999 Eliquis 2.5 mg Tablet 2.5 mg PO BID Rx Instructions: 8 am and 8 pm methenamine hippurate 1 gram tablet 1 g PO DAILY azithromycin 250 mg tablet 250 mg PO DAILY Rx Instructions: ordered 09/20/22 Discharge Orders: Discharge Order (Routine); Ordered 09/27/22 Ordered By: Adam Khan/Other Patient Handouts: Managing Type 2 Diabetes Admission Data Admit Date/Time: 09/21/22 19:13 Attending Provider: Adam Mosher Admit Provider: Lalitha Chong Primary Care Provider: [facility] [place] Other Providers: Lalitha Chong ; Elías Randall ; Maria Ines Hernández ; Bird Braun
== END 2022-09-27 14:33 | disposition hospice, inpatient (51) | DRG 871 ==
LOC: ED 16:09 → 2S 19:13 → SUATTDRO 19:13 → 2S 20:06 → 3N 09-24 18:38